=== PATIENT | female | born 1940 | race Caucasian/White ===

== ENCOUNTER 2017-10-03 05:45 | Inpatient (IN) | payer MEDICARE, SELFPAY ==
[2017-10-03] VITALS (27 sets, daily range): BP systolic 113–150; BP diastolic 45–81; PULSE 68–97; RESP 10–22; TEMP 36.6–37; O2SAT 89–98; BMI 24.4; BMI 25.8
--- NOTE | 2017-10-03 06:08 | EKG12_ITS ---
Test Reason : CP Blood Pressure : / mmHG Vent. Rate : 090 BPM Atrial Rate : 090 BPM P-R Int : 168 ms QRS Dur : 082 ms QT Int : 382 ms P-R-T Axes : 040 -02 072 degrees QTc Int : 467 ms Normal sinus rhythm Left ventricular hypertrophy with repolarization abnormality Abnormal ECG Confirmed by EDNA TAYLOR, ROSELINE ([id number]), acquisitions editor DAVE GATES ([id number]) on 10/05/2017 1:02:37 PM Referred By: ANIRUDH Confirmed By:ROSELINE BISHOP MD
[2017-10-03] MEDS: Ondansetron 4 MG/2 ML Vial IV (06:30)
[2017-10-03] MEDS: 0.9% Normal Saline 1,000 ML 1000 ML IV (06:30)
--- NOTE | 2017-10-03 06:48 | RAD_ITS ---
STUDY: X-RAY CHEST REASON FOR EXAM: Female, 77 years old. Syncope with cough. TECHNIQUE: PA and lateral chest. COMPARISON: August 21, 2016. FINDINGS: Probable small left pleural effusion with left lower lobe subsegmental atelectasis new since the prior study. Normal size heart. Normal mediastinum and enoc. Normal visualized pulmonary arteries. Normal visualized aortic arch and descending thoracic aorta. Degenerative changes of the thoracic spine. Normal visualized ribs, clavicles, and shoulders. There is no demonstrated abnormality of the visualized soft tissue structures of the upper abdomen. RAD/Chest PA and Lateral IMPRESSION: Small left pleural effusion with left lower lobe subsegmental atelectasis. If there is a high clinical suspicion of a left lower lobe pneumonia consider clarification with CT. Electronically Signed: Cristian Cruz MD at 7:09 EST , Service support ,
[2017-10-03 06:49] LABS: Absolute Lymphocyte Count 0.45 X10^3/ul (0.83-4.51); Absolute Neutrophil Count 4.8 X10^3/uL (2.0-7.7); Basophil# 0.01 X10^3/uL; Basophil% 0.2 % (0-1); Hematocrit 33.5 % (37-47); Hemoglobin 11.9 g/dl (12.0-15.0); Lymphocyte # 0.45 X10^3/ul (4.0); Lymphocyte % 7.5 % (19-41); Mean Corp Hgb Conc 35.5 g/gl (32-36); Mean Corpuscular Hgb 27.4 pg (27.0-32.0); Mean Platelet Vol. 10.2 fl (6.2-12.0); Monocyte# 0.78 X10^3/uL; Neutrophil # 4.75 X10^3/uL (2.7-7.7); Neutrophil % 79.1 % (47-70); Platelet Count 198 K/mm3 (150-450); RBC Distribution Width CV 12.9 % (11.6-14.6); RBC Distribution Width SD 35.3 fl (35.1-43.9); Red Blood Count 4.35 M/mm3 (4.2-5.4)
[2017-10-03 06:50] LABS: Differential Indicated SCAN CRITERIA MET; POSITIVE COUNT NO; POSITIVE DIFFERENTIAL YES; POSITIVE MORPHOLOGY NO
[2017-10-03 07:00] LABS: Anion Gap 9 (5-15); BUN 11 mg/dL (7-18); Calcium,Total 7.6 mg/dL (8.5-10.1); Chloride 81 mmol/L (98-107); Creatinine, Serum 0.69 mg/dL (0.55-1.02); EST Glomerular Filtration Rate 88 mL/min (>60); Est Glom Filt Rate - Afr Amer 107 mL/min (>60); Estimated Creatinine Clearance 40.21 ml/min; Glucose 116 mg/dL (74-106); Potassium 2.6 mmol/L (3.5-5.1); Sodium Level 118 mmol/L (136-145)
--- NOTE | 2017-10-03 07:03 | ED.RN ---
DR LEAL MADE AWARE OF NA+118,K+2.6.
[2017-10-03 07:08] LABS: Differential Comment SCANNED
--- NOTE | 2017-10-03 07:28 | ED.DCSUM_ITS ---
- ER Visit Summary Date of Service: 10/03/17 Chief Complaint: Syncope History of Present Illness: The patient is a [address] Cortez. Patient reports that she has not felt well for approximately a week. She has a cough that began 6 days ago. Is productive yellow sputum without blood. Check she reports her cough is been gradually improving. She reports that she has mild shortness of breath with coughing only. She denies any chest pain. No fever or chills. Patient reports over the past couple of days she has developed nausea and is vomited twice. No blood or emesis. She has had 4 episodes of diarrhea. No blood in her stools or black tarry stools. She does complain of generalized weakness. reports that yesterday at 2 AM she got up and went to the bathroom. He did not hear her come back to bed and went to check on her. She was passed out and unresponsive. He reports that she was cold. This lasted for approximately 20 minutes. Today at approximately 4 AM the patient went to go to the bathroom passed out while she was on the commode and the called EMS. Physical Examination: Vitals: Stable. Afebrile. General: Well-nourished and well-developed. Head: Normocephalic atraumatic. Neck: Supple, no lymphadenopathy. No JVD. Nontender. Cardiovascular: Regular rate and rhythm. No murmurs. Respiratory: No respiratory distress. Clear to auscultation bilaterally. Abdominal: Soft, nontender, nondistended, normal bowel sounds. No guarding, rebound, or peritoneal signs. Back: Nontender. Extremities: Nontender, no edema. Skin: Normal color, no rash. Neurologic: Alert and oriented ?3. Cranial nerves II through XII are intact. Normal strength and sensation. Psych: Normal affect. Test Results: Chest x-ray shows a small left pleural effusion with atelectasis. EKG is sinus at [address] changes. Troponin is negative. Chem- 7 is marked for sodium of 118, potassium 2.6, chloride of 81, glucose 116, calcium 7.6. CBC is marked for an H&H of 11 point and 33.5, segmented neutrophils of 79, lymphs at survey, monocytes of 13. Emergency Department Course and Treatment: Patient was given a liter of normal saline and Zofran IV. She is resting comfortably. She was given potassium p.o. Treatment Plan: Patient was discussed with Dr. Blum for. She will be admitted to the hospital for further evaluation and treatment. Disposition: Admitted in serious condition. Impression: 1. Syncope. 2. Hyponatremia. 3. Hypokalemia. 4. Vomiting/diarrhea. 5. URI. 6. Critical care time 30 minutes. This note was generated with [employer] dictation software. It may contain incorrect words, spelling, and punctuation that were not noted in review of the chart prior to signing ED Disposition - Plan for ED Patient: Chief Complaint: Syncope Referrals: Sreekanth Cortez DO [Primary Care Provider] -
[2017-10-03] MEDS: 0.9% Normal Saline 1,000 ML 100 ML IV ×2 (08:58→17:35)
[2017-10-03 09:02] LABS: Bacteria 0 SEEN /hpf (None Seen); Mucous, Urine 0 SEEN /hpf (<or=2+); Red Blood Cells-Urine 0 SEEN /hpf (0-5); White Blood Cells 0 SEEN /hpf (0-5)
--- NOTE | 2017-10-03 09:02 | CON.PCM_ITS ---
Problem List (1) Shingles outbreak Status: Acute Qualifiers: Herpes zoster complications: without complications Qualified Code(s): B02.9 - Zoster without complications (2) Hyponatremia Status: Acute (3) Hypochloremia Status: Acute (4) Hypokalemia Status: Acute (5) Syncope and collapse Status: Acute (6) Hypothyroidism Status: Chronic Qualifiers: Hypothyroidism type: acquired Qualified Code(s): E03.9 - Hypothyroidism, unspecified (7) Hypertension Status: Chronic Qualifiers: Hypertension type: essential hypertension Qualified Code(s): I10 - Essential (primary) hypertension Reason for Consult Date of Consultation: 10/03/17 Reason for Consultation: Hyponatremia, hypokalemia History of Present Illness: The patient is a 77 year old F, with past medical history listed below, who presented to [facility] on 10/03/2017 secondary to syncope. Patient reportedly was started on acyclovir approximately 1 week ago secondary to abruption of a vesicle for reported shingles. Patient states she took medications for approximately 1 day, but discontinued secondary to onset of nausea and vomiting. Patient reports she has had increasing fatigue over the last week. Patient reports nausea and vomiting resulting in 2 episodes of emesis. Patient has also had multiple episodes of watery diarrhea despite reported decreased output. Overnight, patient awoke to go to the bathroom and had a syncopal event. Patient stayed for approximately 30 minutes and then made it back to bed. When this recurred this morning, EMS was called. In the emergency room, patient had a chest x-ray showing a small pleural effusion with atelectasis, EKG with nonspecific ST changes and a Chem-7 notable for a sodium of 118, potassium of 2.6, bicarbonate of 28 and chloride of 81. No leukocytosis was appreciated. Patient was given a liter of normal saline and Zofran IV with subjective improvement. She was orthostatic negative in the ER. Patient was admitted to the intensive care unit for further monitoring. Patient reports mild improvement in overall condition at this time. Patient continues to report profound weakness with a sporadic cough. Patient denies any dyspnea, except when having paroxysmal type coughing. Patient denies any previous similar type of presentations. Patient denies any recent travel or pet exposure. Patient has never had difficulty with electrolytes previously that she is aware of. Patient denies any new medications outside of shingles therapy. Patient does report that she is a Jehovah witness and would not want blood products. Patient denies any active bleeding. Review of systems otherwise negative ?10 systems. Past Medical History Past Medical History (Chronic Problems): Chronic Problems Hypothyroidism (Chronic) Hypertension (Chronic) Allergies No Known Allergies Allergy (Verified 10/03/17 05:55) Home Medications: Ambulatory Orders Medication Instructions Recorded Hydrochlorothiazide 12.5 mg PO DAILY 08/21/16 Levothyroxine Sodium 100 mcg PO BREAKFAST 08/21/16 Metoprolol Tartrate [Lopressor 25 mg PO BID 08/21/16 (Beta Cris)] Losartan Potassium 50 mg PO DAILY 10/03/17 Smoking Status: Never smoker Review of Systems Comment: See HPI Patient Problems: Active and Suspected Problems Shingles outbreak (Acute) Hyponatremia (Acute) Hypochloremia (Acute) Hypokalemia (Acute) Syncope and collapse (Acute) Objective: Chest x-ray was personally reviewed and I agree with the formal interpretation. Pleural effusion is minimal - Physical Exam General: Alert, Oriented x3, Cooperative, No apparent distress, - - Appears stated age. Speaking in full sentences. HEENT: Atraumatic, PERRLA, EOMI, Normocephalic, - - No scleral icterus or injection noted. Oral: No Gingival or Mucosal Lesions/ Ulcerations, Dry Mucosa Neck: Supple, No JVD, No Nodes, Trachea Midline Lungs: Clear to auscultation, Normal air movement, No rhonchi, No wheeze, No rales, - - Metric expansion. No dullness to percussion. Cardiovascular: Regular rate, Regular Rhythm, Normal S1, Normal S2, No murmurs, No rub noted, No Gallop Abdomen: Soft, Non Tender, Non-Distended, Hyperactive Bowel Sounds Extremities: No clubbing, No cyanosis, Capillary Refill Less than 3 Seconds, Edema - Trace lower extremity Skin: No rashes, No breakdown Musculoskeletal: No Tenderness to Palpation of Joints or Extremities Lymphatic: No Cervical, Supraclavicular, or Inguinal Adenopathy Neurological: Cranial nerves II-XII grossly intact, Neuro grossly intact, Motor Exam 5/5 strength throughout Psych/Mental Status: Alert and oriented to time, place, person, mood and affect Vital Signs Temp Pulse Resp BP Pulse Ox 36.7 C 97 19 H 139/45 H 93 10/03/17 08:05 10/03/17 08:05 10/03/17 08:05 10/03/17 08:05 10/03/17 08:05 Oxygen Flow Rate 2 Oxygen Delivery Method Nasal Cannula Weight: 66.1 kg Body Mass Index (BMI) 25.8 Laboratory Tests 10/03/17 10/03/17 06:10 06:10 WBC 6.0 RBC 4.35 Hgb 11.9 L Hct 33.5 L MCV 77.0 L MCH 27.4 MCHC 35.5 RDW 12.9 RDW Differential 35.3 Plt Count 198 MPV 10.2 Immature Gran % (Auto) 0.200 Neut % (Auto) 79.1 H Lymph % (Auto) 7.5 L Will % (Auto) 13.0 H Eos % (Auto) 0.0 Baso % (Auto) 0.2 Absolute Neuts (auto) 4.8 Absolute Lymphs (auto) 0.45 L Total Counted Not Reportable Differential Comment SCANNED Sodium 118 L* Potassium 2.6 L* Chloride 81 L Carbon Dioxide 28.0 Anion Gap 9 BUN 11 Creatinine 0.69 Estim Creat Clear Calc 40.21 Est GFR (MDRD) Af Amer 107 Est GFR (MDRD) Non-Af 88 BUN/Creatinine Ratio 16.0 Glucose 116 H Calcium 7.6 L Troponin I < 0.02 Clinical Impression(s) from Imaging Studies Chest X-Ray 10/03/17 06:48 IMPRESSION: Small left pleural effusion with left lower lobe subsegmental atelectasis. If there is a high clinical suspicion of a left lower lobe pneumonia consider clarification with CT. Electronically Signed: Cristian Cruz MD at 7:09 EST , Service support , Assessment/Plan Active and Suspected Problems Shingles outbreak (Acute) Hyponatremia (Acute) Hypochloremia (Acute) Hypokalemia (Acute) Syncope and collapse (Acute) RECOMMENDATIONS: 1. Continue with IV fluids 2. BMP following potassium infusion 3. Obtain rapid flu and C. difficile 4. Contact precautions for shingles IMPRESSIONS: 1. Syncope Clinical suspicion for volume depletion, but patient was not orthostatic in the emergency room. Patient does have hypokalemia. Patient is on telemetry. No significant EKG changes at this time. Patient is getting electrolyte repletion. Monitor for malignant rhythms. No cardiology consultation at this time. Blood pressure is adequate. 2. Hypovolemic hyponatremia/hypokalemia Patient with 1 week history of nausea, vomiting and diarrhea. Patient does have dry mucous membranes indicating probable volume depletion. Will repeat BMP following potassium infusion. Continue with aggressive volume resuscitation with IV fluids. Patient did continue to have GI symptoms despite decreased p.o. intake indicating a possible pathology secretary diarrhea. Patient should have a C. difficile and rapid flu obtained. Patient does not report any antibiotics in the last 3 months and does not have significant leukocytosis, so clinical suspicion for C. difficile is low. 3. Shingles Patient with minimal symptomatology at this time. Likely okay to hold off on acyclovir therapy. Continue with contact precautions. Pain control as indicated. 4. Hypertension/hypothyroidism/advanced age/Jehovah witness Complicates care, management, recovery and prognosis. Likely okay to continue with baseline medications. Will attempt to minimize blood draws. No blood products moving forward. Hemoglobin is not to the point to indicate pediatric tubes for blood draw. Code Visit Inpatient E&M: 54748 Init Hosp L3
[2017-10-03 09:14] LABS: Color, Urine Yellow (Yellow); Glucose, Dipstick Normal (Normal); Ketone-Dipstick Negative (Negative); Leukocyte Esterase-Dipstick Negative /ul (Negative); Nitrite-Dipstick Negative (Negative); Occult Blood-Urine Negative /ul (Negative); Protein-Dipstick Negative (Negative); Urine Bilirubin Dipstick Negative (Negative); Urine Clarity Clear (Clear); Urine Urobilinogen Normal (Normal)
[2017-10-03 09:19] LABS: Squamous Epithelial Cells - UA 0-5 SEEN /hpf (5-10)
--- NOTE | 2017-10-03 09:20 | PCM.HP.STD ---
Problem List (1) Hyponatremia Status: Acute (2) Hypokalemia Status: Acute (3) Syncope and collapse Status: Acute (4) Hypothyroidism Status: Chronic Qualifiers: Hypothyroidism type: acquired Qualified Code(s): E03.9 - Hypothyroidism, unspecified (5) Hypertension Status: Chronic Qualifiers: Hypertension type: essential hypertension Qualified Code(s): I10 - Essential (primary) hypertension History of Present Illness Date of Admission: 10/03/17 Chief Complaint: Syncope. The patient is a 77 year old F with past medical history as mentioned above presented to the emergency room because of syncope. Patient's was at the bedside and he provided the history about those syncopal episodes. He mentioned that she had a syncopal episode yesterday morning, he found her on the floor and he thinks that she was out for about 20 minutes. Initially, he thought that she but shortly after, she was able to open her eyes and she was fine. After that, he called the squad who came in, checked her vitals and did not bring her to the emergency room. Today, she had another episode of syncope, was at the bathroom and she passed out. The patient herself complained of being not feeling well over the last 3-5 days, week, dizzy and lightheaded before she passed out. Also, she complained of diarrhea, loose watery stool, has been going on for 3-4 days, associated with nausea and vomiting and without aggravating or relieving factors. He denied chest pain, palpitation, shortness of breath. She denied abdominal pain, fever or chills. She denied headache, blurry vision, slurred speech, focal arm or leg weakness. No reported seizure activity, tongue biting or urine incontinence. She denies focal arm or leg weakness. She has a history of hypertension and she has been on HCTZ, losartan and metoprolol. She has a history of hypothyroidism and she is on levothyroxine replacement. In the emergency room, her vital signs were stable, she was afebrile. Orthostatic vitals were negative. Routine blood work is remarkable for hemoglobin of 11.9 g/dL, severe hyponatremia with serum sodium of 118 and potassium of 2.6. Her troponin was negative. Urine analysis showed no evidence of acute cystitis. Chest x-ray showed basilar atelectasis, questionable very small left pleural effusion, doubt pneumonia. EKG revealed normal sinus rhythm, normal VA interval, normal QRS and no acute ischemic changes. She is being admitted for severe hyponatremia, severe hypokalemia and syncope which is attributed to hypovolemia/dehydration secondary to probable viral gastroenteritis. Past Medical History Past Medical History (Chronic Problems): Chronic Problems Hypothyroidism (Chronic) Hypertension (Chronic) Allergies No Known Allergies Allergy (Verified 10/03/17 05:55) Home Medications: Ambulatory Orders Medication Instructions Recorded Hydrochlorothiazide 12.5 mg PO DAILY 08/21/16 Levothyroxine Sodium 100 mcg PO BREAKFAST 08/21/16 Metoprolol Tartrate [Lopressor 25 mg PO BID 08/21/16 (Beta Cris)] Losartan Potassium 50 mg PO DAILY 10/03/17 Surgical History: - - Surgery for carpal tunnel syndrome. Psychiatric History: No pertinent psych hx Lives: Spouse/ Significant Other Smoking Status: Never smoker Alcohol: None Drugs: None - *Family History Maternal History Items: No pertinent history Paternal History Items: No pertinent history Review of Systems Constitutional: Reports: Anorexia, Weakness. Denies: Chills, Fever Eyes: Denies: Blurred vision, Double vision, Drainage, Vision Change HEENT: Denies: Difficulty Hearing, Ear Pain, Eye Pain, Nasal Congestion, Post Nasal Drip, Sore Throat Cardiovascular: Reports: Light Headedness, Syncope. Denies: Chest Pain, Chest Pressure, Chest Tightness, Edema, Heaviness, Orthopnea, Palpitations Respiratory: Reports: Cough. Denies: Hemoptysis, Pleuritic Pain, Shortness of Breath, Sputum production, Wheezing Gastrointestinal: Reports: Diarrhea, Nausea, Vomiting. Denies: Abdominal Pain, Constipation Genitourinary: Denies: Dysuria, Frequency, Hematuria Musculoskeletal: Denies: Arm Pain, Back Pain, Foot Pain Skin: Denies: Dryness, Rash Neurological: Denies: Balance problems, Double vision, Change in Speech, Slurred speech, Confusion, Headaches, Incoordination, Numbness, Tingling Psychiatric: Denies: Anxiety, Depression Endocrine: Denies: Change in Body Habitus, Polydipsia VTE Information - Inpt Only VTE Present on Admission: No VTE Mechan Device Prophylaxis: None VTE Pharm Prophylaxis ordered?: Yes Patient Problems: Active and Suspected Problems Shingles outbreak (Acute) Hyponatremia (Acute) Hypochloremia (Acute) Hypokalemia (Acute) Syncope and collapse (Acute) - Physical Exam General: Alert, Oriented x3, Cooperative, No apparent distress HEENT: Atraumatic, PERRLA, EOMI Oral: Moist Mucosa, No Gingival or Mucosal Lesions/ Ulcerations Neck: Supple, No JVD, Negative Carotid Bruits, Trachea Midline, Thyroid Normal Size and Texture Lungs: Clear to auscultation, No rhonchi, No wheeze, No rales, Diminished Cardiovascular: Regular rate, Regular Rhythm, Normal S1, Normal S2, No murmurs Abdomen: Bowel Sounds Present, Soft, Non Tender, Non-Distended, No Hepato-splenomegaly Extremities: No clubbing, No cyanosis, No edema Skin: No rashes, No breakdown Lymphatic: No Cervical, Supraclavicular, or Inguinal Adenopathy Neurological: Cranial nerves II-XII grossly intact, Motor Exam 5/5 strength throughout Psych/Mental Status: Normal Affect, Appropriate, Alert and oriented to time, place, person, mood and affect Vital Signs Temp Pulse Resp BP Pulse Ox 98.0 F 97 19 H 139/45 H 92 10/03/17 08:05 10/03/17 08:05 10/03/17 08:05 10/03/17 08:05 10/03/17 09:06 Oxygen Flow Rate 2 Oxygen Delivery Method Nasal Cannula Weight: 145 lb 11.609 oz Body Mass Index (BMI) 25.8 Laboratory Tests Past 24 Hrs 10/03/17 10/03/17 10/03/17 08:55 08:55 08:55 Urine Color Yellow Urine Clarity Clear Urine pH 7.0 Ur Specific [place] 1.010 Urine Protein Negative Urine Glucose (UA) Normal Urine Ketones Negative Urine Occult Blood Negative Urine Nitrite Negative Urine Bilirubin Negative Urine Urobilinogen Normal Ur Leukocyte Esterase Negative Urine RBC 0 SEEN Urine WBC 0 SEEN Ur Squamous Epith Cells 0-5 SEEN Urine Bacteria 0 SEEN Urine Mucus 0 SEEN Urine Osmolality Pending Urine Creatinine Pending Urine Potassium Pending Urine Chloride Pending 10/03/17 10/03/17 08:55 08:55 Urine Color Urine Clarity Urine pH Ur Specific [place] Urine Protein Urine Glucose (UA) Urine Ketones Urine Occult Blood Urine Nitrite Urine Bilirubin Urine Urobilinogen Ur Leukocyte Esterase Urine RBC Urine WBC Ur Squamous Epith Cells Urine Bacteria Urine Mucus Urine Osmolality Urine Creatinine Urine Potassium Cancelled Urine Chloride Cancelled Clinical Impression(s) from Imaging Studies Chest X-Ray 10/03/17 06:48 IMPRESSION: Small left pleural effusion with left lower lobe subsegmental atelectasis. If there is a high clinical suspicion of a left lower lobe pneumonia consider clarification with CT. Electronically Signed: Cristian Cruz MD at 7:09 EST , Service support , Assessment/Plan Active and Suspected Problems Shingles outbreak (Acute) Hyponatremia (Acute) Hypochloremia (Acute) Hypokalemia (Acute) Syncope and collapse (Acute) This is a 77 years old female patient presented to the medicine because of 2 syncopal episodes in context of 3-4 day history of diarrhea, nausea and vomiting, found to have severe hyponatremia and severe hypokalemia. #1 severe hyponatremia/severe hypokalemia: Attributed to probable viral gastroenteritis as well as being on HCTZ. Admission sodium is 118 and potassium of 2.6. Plan: Admit to ICU, IV fluids with normal saline with potassium replacement, check serum magnesium, serum phosphorus, TSH, critical care consult, repeat orthostatic vitals tomorrow, repeat BMP later today after potassium replacement, PT OT evaluation and treatment. #2 syncope: Attributed to hypovolemia and dehydration secondary to probable viral gastroenteritis. Orthostatic vitals were negative. Patient reported dizziness and lightheadedness preceding the syncopal event. EKG revealed normal sinus rhythm without evidence of acute ischemic changes or cardiac arrhythmias. No reported history of seizure. No focal deficit on physical exam. Plan: IV fluids as above, electrolyte replacement as appropriate. #3 diarrhea/nausea/vomiting: Probably due to viral gastroenteritis. Plan: IV fluids as above, stool for C. difficile, stool for enteric pathogens. #4 hypothyroidism: Continue levothyroxine, check TSH. #5 hypertension: Blood pressure stable, continue losartan and metoprolol, hold HCTZ. #6 DVT prophylaxis: Subcu Lovenox. This note was generated with [employer] software. It may contain incorrect words, spelling, and punctuation that were not noted in checking the note before signing. Code Visit Inpatient E&M: 92611 Init Hosp L3
[2017-10-03 09:27] LABS: Urine Chloride 38 mmol/L (Not Establ.)
--- NOTE | 2017-10-03 09:27 | HP.PCM_ITS ---
Problem List (1) Hyponatremia Status: Acute (2) Hypokalemia Status: Acute (3) Syncope and collapse Status: Acute (4) Hypothyroidism Status: Chronic Qualifiers: Hypothyroidism type: acquired Qualified Code(s): E03.9 - Hypothyroidism, unspecified (5) Hypertension Status: Chronic Qualifiers: Hypertension type: essential hypertension Qualified Code(s): I10 - Essential (primary) hypertension History of Present Illness Date of Admission: 10/03/17 Chief Complaint: Syncope. The patient is a 77 year old F with past medical history as mentioned above presented to the emergency room because of syncope. Patient's was at the bedside and he provided the history about those syncopal episodes. He mentioned that she had a syncopal episode yesterday morning, he found her on the floor and he thinks that she was out for about 20 minutes. Initially, he thought that she but shortly after, she was able to open her eyes and she was fine. After that, he called the squad who came in, checked her vitals and did not bring her to the emergency room. Today, she had another episode of syncope, was at the bathroom and she passed out. The patient herself complained of being not feeling well over the last 3-5 days, week, dizzy and lightheaded before she passed out. Also, she complained of diarrhea, loose watery stool, has been going on for 3-4 days, associated with nausea and vomiting and without aggravating or relieving factors. He denied chest pain, palpitation, shortness of breath. She denied abdominal pain, fever or chills. She denied headache, blurry vision, slurred speech, focal arm or leg weakness. No reported seizure activity, tongue biting or urine incontinence. She denies focal arm or leg weakness. She has a history of hypertension and she has been on HCTZ, losartan and metoprolol. She has a history of hypothyroidism and she is on levothyroxine replacement. In the emergency room, her vital signs were stable, she was afebrile. Orthostatic vitals were negative. Routine blood work is remarkable for hemoglobin of 11.9 g/dL, severe hyponatremia with serum sodium of 118 and potassium of 2.6. Her troponin was negative. Urine analysis showed no evidence of acute cystitis. Chest x-ray showed basilar atelectasis, questionable very small left pleural effusion, doubt pneumonia. EKG revealed normal sinus rhythm, normal [place] interval, normal QRS and no acute ischemic changes. She is being admitted for severe hyponatremia, severe hypokalemia and syncope which is attributed to hypovolemia/dehydration secondary to probable viral gastroenteritis. Past Medical History Past Medical History (Chronic Problems): Chronic Problems Hypothyroidism (Chronic) Hypertension (Chronic) Allergies No Known Allergies Allergy (Verified 10/03/17 05:55) Home Medications: Ambulatory Orders Medication Instructions Recorded Hydrochlorothiazide 12.5 mg PO DAILY 08/21/16 Levothyroxine Sodium 100 mcg PO BREAKFAST 08/21/16 Metoprolol Tartrate [Lopressor 25 mg PO BID 08/21/16 (Beta Cris)] Losartan Potassium 50 mg PO DAILY 10/03/17 Surgical History: - - Surgery for carpal tunnel syndrome. Psychiatric History: No pertinent psych hx Lives: Spouse/ Significant Other Smoking Status: Never smoker Alcohol: None Drugs: None - *Family History Maternal History Items: No pertinent history Paternal History Items: No pertinent history Review of Systems Constitutional: Reports: Anorexia, Weakness. Denies: Chills, Fever Eyes: Denies: Blurred vision, Double vision, Drainage, Vision Change HEENT: Denies: Difficulty Hearing, Ear Pain, Eye Pain, Nasal Congestion, Post Nasal Drip, Sore Throat Cardiovascular: Reports: Light Headedness, Syncope. Denies: Chest Pain, Chest Pressure, Chest Tightness, Edema, Heaviness, Orthopnea, Palpitations Respiratory: Reports: Cough. Denies: Hemoptysis, Pleuritic Pain, Shortness of Breath, Sputum production, Wheezing Gastrointestinal: Reports: Diarrhea, Nausea, Vomiting. Denies: Abdominal Pain, Constipation Genitourinary: Denies: Dysuria, Frequency, Hematuria Musculoskeletal: Denies: Arm Pain, Back Pain, Foot Pain Skin: Denies: Dryness, Rash Neurological: Denies: Balance problems, Double vision, Change in Speech, Slurred speech, Confusion, Headaches, Incoordination, Numbness, Tingling Psychiatric: Denies: Anxiety, Depression Endocrine: Denies: Change in Body Habitus, Polydipsia VTE Information - Inpt Only VTE Present on Admission: No VTE Mechan Device Prophylaxis: None VTE Pharm Prophylaxis ordered?: Yes Patient Problems: Active and Suspected Problems Shingles outbreak (Acute) Hyponatremia (Acute) Hypochloremia (Acute) Hypokalemia (Acute) Syncope and collapse (Acute) - Physical Exam General: Alert, Oriented x3, Cooperative, No apparent distress HEENT: Atraumatic, PERRLA, EOMI Oral: Moist Mucosa, No Gingival or Mucosal Lesions/ Ulcerations Neck: Supple, No JVD, Negative Carotid Bruits, Trachea Midline, Thyroid Normal Size and Texture Lungs: Clear to auscultation, No rhonchi, No wheeze, No rales, Diminished Cardiovascular: Regular rate, Regular Rhythm, Normal S1, Normal S2, No murmurs Abdomen: Bowel Sounds Present, Soft, Non Tender, Non-Distended, No Hepato- splenomegaly Extremities: No clubbing, No cyanosis, No edema Skin: No rashes, No breakdown Lymphatic: No Cervical, Supraclavicular, or Inguinal Adenopathy Neurological: Cranial nerves II-XII grossly intact, Motor Exam 5/5 strength throughout Psych/Mental Status: Normal Affect, Appropriate, Alert and oriented to time, place, person, mood and affect Vital Signs Temp Pulse Resp BP Pulse Ox 98.0 F 97 19 H 139/45 H 92 10/03/17 08:05 10/03/17 08:05 10/03/17 08:05 10/03/17 08:05 10/03/17 09:06 Oxygen Flow Rate 2 Oxygen Delivery Method Nasal Cannula Weight: 145 lb 11.609 oz Body Mass Index (BMI) 25.8 Laboratory Tests Past 24 Hrs 10/03/17 10/03/17 10/03/17 08:55 08:55 08:55 Urine Color Yellow Urine Clarity Clear Urine pH 7.0 Ur Specific [place] 1.010 Urine Protein Negative Urine Glucose (UA) Normal Urine Ketones Negative Urine Occult Blood Negative Urine Nitrite Negative Urine Bilirubin Negative Urine Urobilinogen Normal Ur Leukocyte Esterase Negative Urine RBC 0 SEEN Urine WBC 0 SEEN Ur Squamous Epith Cells 0-5 SEEN Urine Bacteria 0 SEEN Urine Mucus 0 SEEN Urine Osmolality Pending Urine Creatinine Pending Urine Potassium Pending Urine Chloride Pending 10/03/17 10/03/17 08:55 08:55 Urine Color Urine Clarity Urine pH Ur Specific [place] Urine Protein Urine Glucose (UA) Urine Ketones Urine Occult Blood Urine Nitrite Urine Bilirubin Urine Urobilinogen Ur Leukocyte Esterase Urine RBC Urine WBC Ur Squamous Epith Cells Urine Bacteria Urine Mucus Urine Osmolality Urine Creatinine Urine Potassium Cancelled Urine Chloride Cancelled Clinical Impression(s) from Imaging Studies Chest X-Ray 10/03/17 06:48 IMPRESSION: Small left pleural effusion with left lower lobe subsegmental atelectasis. If there is a high clinical suspicion of a left lower lobe pneumonia consider clarification with CT. Electronically Signed: Cristian Cruz MD at 7:09 EST , Service support , Assessment/Plan Active and Suspected Problems Shingles outbreak (Acute) Hyponatremia (Acute) Hypochloremia (Acute) Hypokalemia (Acute) Syncope and collapse (Acute) This is a 77 years old female patient presented to the medicine because of 2 syncopal episodes in context of 3-4 day history of diarrhea, nausea and vomiting , found to have severe hyponatremia and severe hypokalemia. #1 severe hyponatremia/severe hypokalemia: Attributed to probable viral gastroenteritis as well as being on HCTZ. Admission sodium is 118 and potassium of 2.6. Plan: Admit to ICU, IV fluids with normal saline with potassium replacement, check serum magnesium, serum phosphorus, TSH, critical care consult, repeat orthostatic vitals tomorrow, repeat BMP later today after potassium replacement, PT OT evaluation and treatment. #2 syncope: Attributed to hypovolemia and dehydration secondary to probable viral gastroenteritis. Orthostatic vitals were negative. Patient reported dizziness and lightheadedness preceding the syncopal event. EKG revealed normal sinus rhythm without evidence of acute ischemic changes or cardiac arrhythmias. No reported history of seizure. No focal deficit on physical exam. Plan: IV fluids as above, electrolyte replacement as appropriate. #3 diarrhea/nausea/vomiting: Probably due to viral gastroenteritis. Plan: IV fluids as above, stool for C. difficile, stool for enteric pathogens. #4 hypothyroidism: Continue levothyroxine, check TSH. #5 hypertension: Blood pressure stable, continue losartan and metoprolol, hold HCTZ. #6 DVT prophylaxis: Subcu Lovenox. This note was generated with [employer] software. It may contain incorrect words, spelling, and punctuation that were not noted in checking the note before signing. Code Visit Inpatient E&M: 98431 Init Hosp L3
[2017-10-03 09:28] LABS: Magnesium 1.7 mg/dL (1.6-2.6); Phosphorus 2.7 mg/dL (2.5-4.9); Thyroid Stim Hormone (TSH) 0.59 uIU/mL (0.358-3.74)
[2017-10-03] MEDS: Losartan Potassium 50 MG Tablet PO (09:30)
[2017-10-03] MEDS: Metoprolol Tartrate 25 MG Tablet PO ×2 (09:30→22:04)
[2017-10-03] MEDS: Enoxaparin 40 MG/0.4 ML Syringe SC (09:31)
[2017-10-03 09:45] LABS: Osmolality, Urine 225 mOsm/KG
[2017-10-03 10:46] LABS: M R Staph aureus DNA By PCR Negative (Negative); Probe Check PASS; Specimen Processing Control PASS
[2017-10-03 15:18] LABS: Anion Gap 8 (5-15); BUN 8 mg/dL (7-18); Calcium,Total 7.1 mg/dL (8.5-10.1); Chloride 93 mmol/L (98-107); EST Glomerular Filtration Rate 74 mL/min (>60); Est Glom Filt Rate - Afr Amer 90 mL/min (>60); Estimated Creatinine Clearance 50.26 ml/min; Glucose 111 mg/dL (74-106); Potassium 4.2 mmol/L (3.5-5.1); Sodium Level 126 mmol/L (136-145)
[2017-10-03 15:20] LABS: Osmolality, Serum 257 mOsm/KG (280-301)
[2017-10-03] MEDS: Benzonatate 100 MG Capsule PO (22:08)
[2017-10-04] VITALS (20 sets, daily range): BP systolic 98–146; BP diastolic 48–82; PULSE 62–84; RESP 17–20; TEMP 36.8–37.4; O2SAT 91–98
[2017-10-04] MEDS: 0.9% Normal Saline 1,000 ML 100 ML IV ×3 (03:16→21:42)
[2017-10-04 06:07] LABS: Absolute Lymphocyte Count 1.29 X10^3/ul (0.83-4.51); Basophil# 0.01 X10^3/uL; Basophil% 0.2 % (0-1); Eosinophil# 0.01 X10^3/uL; Eosinophils% 0.2 % (0-5); Hematocrit 29.7 % (37-47); Lymphocyte # 1.29 X10^3/ul (4.0); Mean Corp Hgb Conc 33.7 g/gl (32-36); Mean Corpuscular Hgb 26.7 pg (27.0-32.0); Mean Corpuscular Volume 79.4 fL (81-99); Mean Platelet Vol. 9.3 fl (6.2-12.0); Monocyte# 0.66 X10^3/uL; Monocyte% 13.3 % (0-10); Neutrophil # 2.99 X10^3/uL (2.7-7.7); Neutrophil % 60.1 % (47-70); Platelet Count 167 K/mm3 (150-450); RBC Distribution Width CV 13.3 % (11.6-14.6); RBC Distribution Width SD 38.5 fl (35.1-43.9); Red Blood Count 3.74 M/mm3 (4.2-5.4)
[2017-10-04 06:22] LABS: Anion Gap 9 (5-15); BUN 9 mg/dL (7-18); BUN/Creat Ratio 13.7 RATIO (10-20); Calcium,Total 7.3 mg/dL (8.5-10.1); Chloride 97 mmol/L (98-107); Creatinine, Serum 0.66 mg/dL (0.55-1.02); EST Glomerular Filtration Rate 93 mL/min (>60); Est Glom Filt Rate - Afr Amer 113 mL/min (>60); Estimated Creatinine Clearance 40.21 ml/min; Glucose 93 mg/dL (74-106); Sodium Level 130 mmol/L (136-145)
[2017-10-04 06:32] LABS: POSITIVE COUNT NO; POSITIVE DIFFERENTIAL NO; POSITIVE MORPHOLOGY NO
--- NOTE | 2017-10-04 07:21 | PN_ITS ---
Subjective: The patient was seen and examined at the bedside this morning. Events from the last 24 hours have been reviewed. The patient is currently afebrile, hemodynamically stable and maintaining appropriate oxygen saturations on 2 L/ min via nasal cannula. No overnight issues were identified by the nursing staff. Sodium is increased to 130 this morning. Potassium remains low at 3.0. The patient is still receiving normal saline at 100 mL's per hour. The patient denies nausea, vomiting, abdominal pain or dizziness. Objective: The patient's most recent lab work, culture data and imaging studies have all been personally reviewed. Respiratory viral panel was positive for influenza A. General: Alert, Oriented x3, Cooperative, No apparent distress HEENT: Atraumatic, PERRLA, Normocephalic Oral: Moist Mucosa, No Gingival or Mucosal Lesions/ Ulcerations Neck: Supple, No JVD, No Nodes, Trachea Midline Lungs: Clear to auscultation, No rhonchi, No wheeze, No rales Cardiovascular: Regular rate, Regular Rhythm, Normal S1, Normal S2, No murmurs Abdomen: Bowel Sounds Present, Soft, Non Tender Extremities: No clubbing, No cyanosis, No edema Skin: No rashes, No breakdown Musculoskeletal: No Tenderness to Palpation of Joints or Extremities Lymphatic: No Cervical, Supraclavicular, or Inguinal Adenopathy Neurological: Neuro grossly intact Psych/Mental Status: Alert and oriented to time, place, person, mood and affect Vital Signs Temp Pulse Resp BP Pulse Ox 98.9 F 74 19 H 127/60 H 97 10/04/17 04:00 10/04/17 06:00 10/04/17 06:00 10/04/17 06:00 10/04/17 06:00 Oxygen Flow Rate 2 Oxygen Delivery Method Nasal Cannula Weight: 143 lb 15.39 oz Body Mass Index (BMI) 25.8 Intake and Output for Last 24 Hours 10/02/17 10/03/17 10/04/17 23:59 23:59 23:59 Intake Total 2836 / 2836 1451 / 1451 Output Total 1900 / 1900 700 / 700 Balance 936 / 936 751 / 751 Labs (Last 48 Hours) 10/03/17 10/03/17 10/03/17 08:40 08:55 08:55 WBC RBC Hgb Hct MCV MCH MCHC RDW RDW Differential Plt Count MPV Immature Gran % (Auto) Neut % (Auto) Lymph % (Auto) Hend[place] % (Auto) Eos % (Auto) Baso % (Auto) Absolute Neuts (auto) Absolute Lymphs (auto) Total Counted Sodium Potassium Chloride Carbon Dioxide Anion Gap BUN Creatinine Estim Creat Clear Calc Est GFR (MDRD) Af Amer Est GFR (MDRD) Non-Af BUN/Creatinine Ratio Glucose Serum Osmolality Calcium Urine Color Urine Clarity Urine pH Ur Specific [place] Urine Protein Urine Glucose (UA) Urine Ketones Urine Occult Blood Urine Nitrite Urine Bilirubin Urine Urobilinogen Ur Leukocyte Esterase Urine RBC Urine WBC Ur Squamous Epith Cells Urine Bacteria Urine Mucus Urine Osmolality 225 Urine Creatinine 38.30 Urine Potassium 16.0 Urine Chloride 38 MRSA (PCR) Negative 10/03/17 10/03/17 10/03/17 08:55 08:55 08:55 WBC RBC Hgb Hct MCV MCH MCHC RDW RDW Differential Plt Count MPV Immature Gran % (Auto) Neut % (Auto) Lymph % (Auto) [place] % (Auto) Eos % (Auto) Baso % (Auto) Absolute Neuts (auto) Absolute Lymphs (auto) Total Counted Sodium Potassium Chloride Carbon Dioxide Anion Gap BUN Creatinine Estim Creat Clear Calc Est GFR (MDRD) Af Amer Est GFR (MDRD) Non-Af BUN/Creatinine Ratio Glucose Serum Osmolality Calcium Urine Color Yellow Urine Clarity Clear Urine pH 7.0 Ur Specific [place] 1.010 Urine Protein Negative Urine Glucose (UA) Normal Urine Ketones Negative Urine Occult Blood Negative Urine Nitrite Negative Urine Bilirubin Negative Urine Urobilinogen Normal Ur Leukocyte Esterase Negative Urine RBC 0 SEEN Urine WBC 0 SEEN Ur Squamous Epith Cells 0-5 SEEN Urine Bacteria 0 SEEN Urine Mucus 0 SEEN Urine Osmolality Urine Creatinine Urine Potassium Cancelled Urine Chloride Cancelled MRSA (PCR) 10/03/17 10/03/17 10/04/17 14:45 14:45 04:55 WBC 5.0 RBC 3.74 L Hgb 10.0 L Hct 29.7 L MCV 79.4 L MCH 26.7 L MCHC 33.7 RDW 13.3 RDW Differential 38.5 Plt Count 167 MPV 9.3 Immature Gran % (Auto) 0.200 Neut % (Auto) 60.1 Lymph % (Auto) 26.0 [place] % (Auto) 13.3 H Eos % (Auto) 0.2 Baso % (Auto) 0.2 Absolute Neuts (auto) 3.0 Absolute Lymphs (auto) 1.29 Total Counted Not Reportable Sodium 126 L Potassium 4.2 Chloride 93 L Carbon Dioxide 25.0 Anion Gap 8 BUN 8 Creatinine 0.80 Estim Creat Clear Calc 50.26 Est GFR (MDRD) Af Amer 90 Est GFR (MDRD) Non-Af 74 BUN/Creatinine Ratio 10.0 Glucose 111 H Serum Osmolality 257 L Calcium 7.1 L Urine Color Urine Clarity Urine pH Ur Specific [place] Urine Protein Urine Glucose (UA) Urine Ketones Urine Occult Blood Urine Nitrite Urine Bilirubin Urine Urobilinogen Ur Leukocyte Esterase Urine RBC Urine WBC Ur Squamous Epith Cells Urine Bacteria Urine Mucus Urine Osmolality Urine Creatinine Urine Potassium Urine Chloride MRSA (PCR) 10/04/17 04:55 WBC RBC Hgb Hct MCV MCH MCHC RDW RDW Differential Plt Count MPV Immature Gran % (Auto) Neut % (Auto) Lymph % (Auto) [place] % (Auto) Eos % (Auto) Baso % (Auto) Absolute Neuts (auto) Absolute Lymphs (auto) Total Counted Sodium 130 L Potassium 3.0 L Chloride 97 L Carbon Dioxide 24.0 Anion Gap 9 BUN 9 Creatinine 0.66 Estim Creat Clear Calc 40.21 Est GFR (MDRD) Af Amer 113 Est GFR (MDRD) Non-Af 93 BUN/Creatinine Ratio 13.7 Glucose 93 Serum Osmolality Calcium 7.3 L Urine Color Urine Clarity Urine pH Ur Specific [place] Urine Protein Urine Glucose (UA) Urine Ketones Urine Occult Blood Urine Nitrite Urine Bilirubin Urine Urobilinogen Ur Leukocyte Esterase Urine RBC Urine WBC Ur Squamous Epith Cells Urine Bacteria Urine Mucus Urine Osmolality Urine Creatinine Urine Potassium Urine Chloride MRSA (PCR) Microbiology 10/03/17 12:35 Stool Enteric Bacteriology - Final 10/03/17 12:35 Stool C. difficile DNA Amplification - Final 10/03/17 09:09 Mucosa - Nasopharyngeal Respiratory Panel (PCR) - Final Influenza A (Subtype H3) Clinical Impression(s) from Imaging Studies Chest X-Ray 10/03/17 06:48 IMPRESSION: Small left pleural effusion with left lower lobe subsegmental atelectasis. If there is a high clinical suspicion of a left lower lobe pneumonia consider clarification with CT. Electronically Signed: Cristian Cruz MD at 7:09 EST , Service support , Assessment/Plan Active and Suspected Problems Shingles outbreak (Acute) Hyponatremia (Acute) Hypochloremia (Acute) Hypokalemia (Acute) Syncope and collapse (Acute) RECOMMENDATIONS: 1. Continue supplemental IV fluids 2. Additional potassium repletion as ordered 3. Check serum magnesium level 4. Contact precautions for shingles 5. Encourage incentive spirometer use while in bed and mobilize patient as tolerated 6. Continue Lovenox for DVT prophylaxis IMPRESSIONS: 1. Syncope Clinical suspicion for volume depletion, but patient was not orthostatic in the emergency room. The patient is improving clinically with IV fluid hydration. We will continue to monitor accordingly. 2. Influenza A infection Continue current supportive measures with IV fluids. There would be no clinical indication for the use of Tamiflu, given the time duration that has elapsed since symptoms initially began. 3. Hypovolemic hyponatremia/hypokalemia Patient with 1 week history of nausea, vomiting and diarrhea. The patient has improved clinically with intravascular volume expansion. Sodium is improving. Potassium is currently being repleted. We will continue with supplemental IV fluids for now. 4. Recent diagnosis of shingles Patient with minimal symptomatology at this time. Likely okay to hold off on acyclovir therapy. Continue with contact precautions. Pain control as indicated. 5. Hypertension/hypothyroidism/advanced age/[place] witness Complicates care, management, recovery and prognosis. Likely okay to continue with baseline medications. This note was generated with [employer] dictation software. It may contain incorrect words, spelling, and punctuation that were not noted in checking the note before signing. DISPOSITION: The patient is medically stable for transfer out of the intensive care unit. Code Visit Inpatient E&M: 52879 Subs Hosp L2
[2017-10-04 07:47] LABS: Magnesium 1.8 mg/dL (1.6-2.6)
[2017-10-04] MEDS: Levothyroxine 100 MCG Tablet PO (07:52)
[2017-10-04] MEDS: Metoprolol Tartrate 25 MG Tablet PO ×2 (09:35→21:39)
[2017-10-04] MEDS: Losartan Potassium 50 MG Tablet PO (09:35)
[2017-10-04] MEDS: Enoxaparin 40 MG/0.4 ML Syringe SC (09:36)
--- NOTE | 2017-10-04 09:57 | PCM.PN.HOSP ---
Patient Problems: Active and Suspected Problems Shingles outbreak (Acute) Hyponatremia (Acute) Hypochloremia (Acute) Hypokalemia (Acute) Syncope and collapse (Acute) Subjective: Seen and examined at the bedside. Patient was admitted for syncope ?2, hyponatremia, hypokalemia and dehydration. Vitals/I&O's: Vital Signs Temp Pulse Resp BP Pulse Ox 98.6 F 79 17 138/67 H 97 10/04/17 08:00 10/04/17 09:35 10/04/17 08:00 10/04/17 09:35 10/04/17 08:00 Oxygen Flow Rate 2 Oxygen Delivery Method Nasal Cannula Weight: 143 lb 15.39 oz Body Mass Index (BMI) 25.8 Intake and Output for Last 24 Hours 10/02/17 10/03/17 10/04/17 23:59 23:59 23:59 Intake Total 2836 / 2836 1451 / 1451 Output Total 1900 / 1900 700 / 700 Balance 936 / 936 751 / 751 General: Alert, Oriented x3, Cooperative HEENT: Atraumatic, PERRLA, EOMI, Normocephalic Oral: Dry Mucosa Neck: Supple, No JVD, Negative Carotid Bruits Lungs: Clear to auscultation, Normal air movement, No rhonchi, No wheeze, No rales Cardiovascular: Regular rate, Regular Rhythm, Normal S1, Normal S2, No murmurs Abdomen: Bowel Sounds Present, Soft, Non Tender, Non-Distended Extremities: No edema, Capillary Refill Less than 3 Seconds Skin: No rashes, No breakdown Musculoskeletal: No Tenderness to Palpation of Joints or Extremities, Arthritic Changes Neurological: Cranial nerves II-XII grossly intact Psych/Mental Status: Normal Affect, Appropriate Microbiology Past 72 Hours 10/03/17 12:35 Stool Enteric Bacteriology - Final 10/03/17 12:35 Stool C. difficile DNA Amplification - Final 10/03/17 09:09 Mucosa - Nasopharyngeal Respiratory Panel (PCR) - Final Influenza A (Subtype H3) Laboratory Results 10/03/17 08:40: MRSA (PCR) Negative 10/03/17 14:45: Serum Osmolality 257 L 10/03/17 14:45: Sodium 126 L, Potassium 4.2, Chloride 93 L, Carbon Dioxide 25.0, Anion Gap 8, BUN 8, Creatinine 0.80, Estim Creat Clear Calc 50.26, Est GFR (MDRD) Af Amer 90, Est GFR (MDRD) Non-Af 74, BUN/Creatinine Ratio 10.0, Glucose 111 H, Calcium 7.1 L 10/04/17 04:55: WBC 5.0, RBC 3.74 L, Hgb 10.0 L, Hct 29.7 L, MCV 79.4 L, MCH 26.7 L, MCHC 33.7, RDW 13.3, RDW Differential 38.5, Plt Count 167, MPV 9.3, Immature Gran % (Auto) 0.200, Neut % (Auto) 60.1, Lymph % (Auto) 26.0, Cole % (Auto) 13.3 H, Eos % (Auto) 0.2, Baso % (Auto) 0.2, Absolute Neuts (auto) 3.0, Absolute Lymphs (auto) 1.29, Total Counted Not Reportable 10/04/17 04:55: Sodium 130 L, Potassium 3.0 L, Chloride 97 L, Carbon Dioxide 24.0, Anion Gap 9, BUN 9, Creatinine 0.66, Estim Creat Clear Calc 40.21, Est GFR (MDRD) Af Amer 113, Est GFR (MDRD) Non-Af 93, BUN/Creatinine Ratio 13.7, Glucose 93, Calcium 7.3 L 10/04/17 04:55: Magnesium 1.8 Current Medications Acetaminophen (Tylenol) 650 mg PO Q6H PRN PRN PRN Reason: Fever, headache, pain Albuterol Sulfate (Ventolin Aerosols) 2.5 mg INHALATION Q4H PRN PRN PRN Reason: SOB &/OR WHEEZING Benzonatate (Tessalon Perle) 100 mg PO TID PRN PRN PRN Reason: cough Last Admin: 10/03/17 22:08 Dose: 100 mg Enoxaparin Sodium (Lovenox) 40 mg SC DAILY@1000 CHELY Last Admin: 10/04/17 09:36 Dose: 40 mg Sodium Chloride () 1,000 mls @ 100 mls/hr IV .Q10H CHELY Last Admin: 10/04/17 03:16 Dose: 100 mls/hr Potassium Chloride 40 meq/ (Sodium Chloride) 520 mls @ 130 mls/hr IV Q4H CHELY Stop: 10/04/17 12:09 Last Admin: 10/04/17 09:36 Dose: 130 mls/hr Levothyroxine Sodium (Synthroid) 100 mcg PO BREAKFAST [facility] Last Admin: 10/04/17 07:52 Dose: 100 mcg Losartan Potassium (Cozaar) 50 mg PO DAILY [facility] Last Admin: 10/04/17 09:35 Dose: 50 mg Magnesium Hydroxide (Milk Of Magnesia) 30 ml PO DAILY PRN PRN PRN Reason: Constipation Metoprolol Tartrate (Lopressor (Beta Cris)) 25 mg PO BID [facility] Last Admin: 10/04/17 09:35 Dose: 25 mg Nutritional Formula (Lactose Free) (Ensure Enlive) 120 ml PO 4X/DAY [facility] Last Admin: 10/04/17 09:36 Dose: 120 ml Sodium Chloride () 5 - 30 ml IV UD PRN PRN Reason: SALINE FLUSH Assessment/Plan Active and Suspected Problems Shingles outbreak (Acute) Hyponatremia (Acute) Hypochloremia (Acute) Hypokalemia (Acute) Syncope and collapse (Acute) This is a 77 years old female patient presented to the medicine because of 2 syncopal episodes in context of 3-4 day history of diarrhea, nausea and vomiting, found to have severe hyponatremia and severe hypokalemia. #1 severe hypotonic hypovolemic hyponatremia/severe hypokalemia: Attributed to probable viral gastroenteritis as well as being on HCTZ. Admission sodium is 118 and potassium of 2.6. Patient was initially admitted to ICU. Currently, hemodynamically stable. Can be transferred to PCU. IV fluids with normal saline with potassium replacement. Serum osmolality low 257, sodium 126, K4.2. Anion gap 8. Respiratory panel is positive for influenza A H3. #2 syncope: Attributed to hypovolemia and dehydration secondary to probable viral gastroenteritis. Orthostatic vitals does not meet the criteria for postural hypotension but systolic blood pressure dropped from 149-131 mmHg when from lying to standing position. Patient reported dizziness and lightheadedness preceding the syncopal event. EKG revealed normal sinus rhythm without evidence of acute ischemic changes or cardiac arrhythmias. No reported history of seizure. No focal deficit on physical exam. Plan: IV fluids as above, electrolyte replacement as appropriate. #3 diarrhea/nausea/vomiting will due to influenza A.: Probably due to viral gastroenteritis. Patient has influenza A positive. Started on Tamiflu. IV fluids as above, stool for C. difficile, stool for enteric pathogens negative. #4 hypothyroidism: Continue levothyroxine, check TSH. #5 hypertension: Blood pressure stable, continue losartan and metoprolol, hold HCTZ. #6 DVT prophylaxis: Subcu Lovenox. Microbiology Past 72 Hours 10/03/17 12:35 Stool Enteric Bacteriology - Final 10/03/17 12:35 Stool C. difficile DNA Amplification - Final 10/03/17 09:09 Mucosa - Nasopharyngeal Respiratory Panel (PCR) - Final Influenza A (Subtype H3) Laboratory Results 10/03/17 08:40: MRSA (PCR) Negative 10/03/17 14:45: Serum Osmolality 257 L 10/03/17 14:45: Sodium 126 L, Potassium 4.2, Chloride 93 L, Carbon Dioxide 25.0, Anion Gap 8, BUN 8, Creatinine 0.80, Estim Creat Clear Calc 50.26, Est GFR (MDRD) Af Amer 90, Est GFR (MDRD) Non-Af 74, BUN/Creatinine Ratio 10.0, Glucose 111 H, Calcium 7.1 L 10/04/17 04:55: WBC 5.0, RBC 3.74 L, Hgb 10.0 L, Hct 29.7 L, MCV 79.4 L, MCH 26.7 L, MCHC 33.7, RDW 13.3, RDW Differential 38.5, Plt Count 167, MPV 9.3, Immature Gran % (Auto) 0.200, Neut % (Auto) 60.1, Lymph % (Auto) 26.0, Cole % (Auto) 13.3 H, Eos % (Auto) 0.2, Baso % (Auto) 0.2, Absolute Neuts (auto) 3.0, Absolute Lymphs (auto) 1.29, Total Counted Not Reportable 10/04/17 04:55: Sodium 130 L, Potassium 3.0 L, Chloride 97 L, Carbon Dioxide 24.0, Anion Gap 9, BUN 9, Creatinine 0.66, Estim Creat Clear Calc 40.21, Est GFR (MDRD) Af Amer 113, Est GFR (MDRD) Non-Af 93, BUN/Creatinine Ratio 13.7, Glucose 93, Calcium 7.3 L 10/04/17 04:55: Magnesium 1.8 Code Visit Inpatient E&M: 69953 Subs Hosp L3
--- NOTE | 2017-10-04 10:08 | PN_ITS ---
Patient Problems: Active and Suspected Problems Shingles outbreak (Acute) Hyponatremia (Acute) Hypochloremia (Acute) Hypokalemia (Acute) Syncope and collapse (Acute) Subjective: Seen and examined at the bedside. Patient was admitted for syncope ?2, hyponatremia, hypokalemia and dehydration. Vitals/I&O's: Vital Signs Temp Pulse Resp BP Pulse Ox 98.6 F 79 17 138/67 H 97 10/04/17 08:00 10/04/17 09:35 10/04/17 08:00 10/04/17 09:35 10/04/17 08:00 Oxygen Flow Rate 2 Oxygen Delivery Method Nasal Cannula Weight: 143 lb 15.39 oz Body Mass Index (BMI) 25.8 Intake and Output for Last 24 Hours 10/02/17 10/03/17 10/04/17 23:59 23:59 23:59 Intake Total 2836 / 2836 1451 / 1451 Output Total 1900 / 1900 700 / 700 Balance 936 / 936 751 / 751 General: Alert, Oriented x3, Cooperative HEENT: Atraumatic, PERRLA, EOMI, Normocephalic Oral: Dry Mucosa Neck: Supple, No JVD, Negative Carotid Bruits Lungs: Clear to auscultation, Normal air movement, No rhonchi, No wheeze, No rales Cardiovascular: Regular rate, Regular Rhythm, Normal S1, Normal S2, No murmurs Abdomen: Bowel Sounds Present, Soft, Non Tender, Non-Distended Extremities: No edema, Capillary Refill Less than 3 Seconds Skin: No rashes, No breakdown Musculoskeletal: No Tenderness to Palpation of Joints or Extremities, Arthritic Changes Neurological: Cranial nerves II-XII grossly intact Psych/Mental Status: Normal Affect, Appropriate Microbiology Past 72 Hours 10/03/17 12:35 Stool Enteric Bacteriology - Final 10/03/17 12:35 Stool C. difficile DNA Amplification - Final 10/03/17 09:09 Mucosa - Nasopharyngeal Respiratory Panel (PCR) - Final Influenza A (Subtype H3) Laboratory Results 10/03/17 08:40: MRSA (PCR) Negative 10/03/17 14:45: Serum Osmolality 257 L 10/03/17 14:45: Sodium 126 L, Potassium 4.2, Chloride 93 L, Carbon Dioxide 25.0 , Anion Gap 8, BUN 8, Creatinine 0.80, Estim Creat Clear Calc 50.26, Est GFR ( MDRD) Af Amer 90, Est GFR (MDRD) Non-Af 74, BUN/Creatinine Ratio 10.0, Glucose 111 H, Calcium 7.1 L 10/04/17 04:55: WBC 5.0, RBC 3.74 L, Hgb 10.0 L, Hct 29.7 L, MCV 79.4 L, MCH 26.7 L, MCHC 33.7, RDW 13.3, RDW Differential 38.5, Plt Count 167, MPV 9.3, Immature Gran % (Auto) 0.200, Neut % (Auto) 60.1, Lymph % (Auto) 26.0, [place] % ( Auto) 13.3 H, Eos % (Auto) 0.2, Baso % (Auto) 0.2, Absolute Neuts (auto) 3.0, Absolute Lymphs (auto) 1.29, Total Counted Not Reportable 10/04/17 04:55: Sodium 130 L, Potassium 3.0 L, Chloride 97 L, Carbon Dioxide 24.0, Anion Gap 9, BUN 9, Creatinine 0.66, Estim Creat Clear Calc 40.21, Est GFR (MDRD) Af Amer 113, Est GFR (MDRD) Non-Af 93, BUN/Creatinine Ratio 13.7, Glucose 93, Calcium 7.3 L 10/04/17 04:55: Magnesium 1.8 Current Medications Acetaminophen (Tylenol) 650 mg PO Q6H PRN PRN PRN Reason: Fever, headache, pain Albuterol Sulfate (Ventolin Aerosols) 2.5 mg INHALATION Q4H PRN PRN PRN Reason: SOB &/OR WHEEZING Benzonatate (Tessalon Perle) 100 mg PO TID PRN PRN PRN Reason: cough Last Admin: 10/03/17 22:08 Dose: 100 mg Enoxaparin Sodium (Lovenox) 40 mg SC DAILY@1000 [facility] Last Admin: 10/04/17 09:36 Dose: 40 mg Sodium Chloride () 1,000 mls @ 100 mls/hr IV .Q10H [facility] Last Admin: 10/04/17 03:16 Dose: 100 mls/hr Potassium Chloride 40 meq/ (Sodium Chloride) 520 mls @ 130 mls/hr IV Q4H [facility] Stop: 10/04/17 12:09 Last Admin: 10/04/17 09:36 Dose: 130 mls/hr Levothyroxine Sodium (Synthroid) 100 mcg PO BREAKFAST [facility] Last Admin: 10/04/17 07:52 Dose: 100 mcg Losartan Potassium (Cozaar) 50 mg PO DAILY [facility] Last Admin: 10/04/17 09:35 Dose: 50 mg Magnesium Hydroxide (Milk Of Magnesia) 30 ml PO DAILY PRN PRN PRN Reason: Constipation Metoprolol Tartrate (Lopressor (Beta Cris)) 25 mg PO BID [facility] Last Admin: 10/04/17 09:35 Dose: 25 mg Nutritional Formula (Lactose Free) (Ensure Enlive) 120 ml PO 4X/DAY [facility] Last Admin: 10/04/17 09:36 Dose: 120 ml Sodium Chloride () 5 - 30 ml IV UD PRN PRN Reason: SALINE FLUSH Assessment/Plan Active and Suspected Problems Shingles outbreak (Acute) Hyponatremia (Acute) Hypochloremia (Acute) Hypokalemia (Acute) Syncope and collapse (Acute) This is a 77 years old female patient presented to the medicine because of 2 syncopal episodes in context of 3-4 day history of diarrhea, nausea and vomiting , found to have severe hyponatremia and severe hypokalemia. #1 severe hypotonic hypovolemic hyponatremia/severe hypokalemia: Attributed to probable viral gastroenteritis as well as being on HCTZ. Admission sodium is 118 and potassium of 2.6. Patient was initially admitted to ICU. Currently, hemodynamically stable. Can be transferred to PCU. IV fluids with normal saline with potassium replacement. Serum osmolality low 257, sodium 126, K4.2. Anion gap 8. Respiratory panel is positive for influenza A H3. #2 syncope: Attributed to hypovolemia and dehydration secondary to probable viral gastroenteritis. Orthostatic vitals does not meet the criteria for postural hypotension but systolic blood pressure dropped from 149-131 mmHg when from lying to standing position. Patient reported dizziness and lightheadedness preceding the syncopal event. EKG revealed normal sinus rhythm without evidence of acute ischemic changes or cardiac arrhythmias. No reported history of seizure. No focal deficit on physical exam. Plan: IV fluids as above, electrolyte replacement as appropriate. #3 diarrhea/nausea/vomiting will due to influenza A.: Probably due to viral gastroenteritis. Patient has influenza A positive. Started on Tamiflu. IV fluids as above, stool for C. difficile, stool for enteric pathogens negative. #4 hypothyroidism: Continue levothyroxine, check TSH. #5 hypertension: Blood pressure stable, continue losartan and metoprolol, hold HCTZ. #6 DVT prophylaxis: Subcu Lovenox. Microbiology Past 72 Hours 10/03/17 12:35 Stool Enteric Bacteriology - Final 10/03/17 12:35 Stool C. difficile DNA Amplification - Final 10/03/17 09:09 Mucosa - Nasopharyngeal Respiratory Panel (PCR) - Final Influenza A (Subtype H3) Laboratory Results 10/03/17 08:40: MRSA (PCR) Negative 10/03/17 14:45: Serum Osmolality 257 L 10/03/17 14:45: Sodium 126 L, Potassium 4.2, Chloride 93 L, Carbon Dioxide 25.0 , Anion Gap 8, BUN 8, Creatinine 0.80, Estim Creat Clear Calc 50.26, Est GFR ( MDRD) Af Amer 90, Est GFR (MDRD) Non-Af 74, BUN/Creatinine Ratio 10.0, Glucose 111 H, Calcium 7.1 L 10/04/17 04:55: WBC 5.0, RBC 3.74 L, Hgb 10.0 L, Hct 29.7 L, MCV 79.4 L, MCH 26.7 L, MCHC 33.7, RDW 13.3, RDW Differential 38.5, Plt Count 167, MPV 9.3, Immature Gran % (Auto) 0.200, Neut % (Auto) 60.1, Lymph % (Auto) 26.0, [place] % ( Auto) 13.3 H, Eos % (Auto) 0.2, Baso % (Auto) 0.2, Absolute Neuts (auto) 3.0, Absolute Lymphs (auto) 1.29, Total Counted Not Reportable 10/04/17 04:55: Sodium 130 L, Potassium 3.0 L, Chloride 97 L, Carbon Dioxide 24.0, Anion Gap 9, BUN 9, Creatinine 0.66, Estim Creat Clear Calc 40.21, Est GFR (MDRD) Af Amer 113, Est GFR (MDRD) Non-Af 93, BUN/Creatinine Ratio 13.7, Glucose 93, Calcium 7.3 L 10/04/17 04:55: Magnesium 1.8 Code Visit Inpatient E&M: 20926 Subs Hosp L3
[2017-10-04] MEDS: Oseltamivir Phosphate 30 MG Capsule PO ×2 (11:22→21:39)
--- NOTE | 2017-10-04 15:39 | CHAPLAIN ---
Type of Pastoral Visit _x__ Initial Visit ___ Follow-up Visit ___ On-call Visit ___ General Patient Visit ___ Spiritual Assessment ___ Family Conference ___ Bereavement ___ Rapid Response ___ Code Blue ___ Other (describe below) Pastoral Care Referral From _x__ Patient ___ Family ___ Nurse ___ Physician ___ Senior C Web Developer ___ Web Consultant ___ Other (describe below) Sacrament/Intervention _x__ Active listening ___ Anointing ___ Pentecostal ___ Bereavement ___ Communion ___ Mihaela exploration ___ ___ Life review ___ Prayer ___ Reconciliation ___ Sacrament of Sick ___ Supportive presence ___ Wedding ___ Other (describe below) Pastoral Comments patient was in the bathroom when I came to room; spouse of pt was standing at doorway and we had a conversation; spouse tells me about illness of pt; spouse tells me that their are of the Jehovah Witness mihaela and that they have already read their scriptures and said their prayers for today; spouse says that all they need is to know that you are interested and care; offered spouse to return as needed and this on site coordinator gave spouse a calling card
[2017-10-04] MEDS: guaiFENesin Dm 10 ML UDC PO (20:14)
[2017-10-04] MEDS: Benzonatate 100 MG Capsule PO (21:38)
[2017-10-05] VITALS (15 sets, daily range): BP systolic 140–163; BP diastolic 70–83; PULSE 57–91; RESP 14–20; TEMP 36.5–37.2; O2SAT 94–96
[2017-10-05] MEDS: Albuterol 2.5 MG/3 ML VIAL.NEB. INHALATION (01:46)
--- NOTE | 2017-10-05 08:57 | PCM.PROGNOTE ---
Patient Problems: Active and Suspected Problems Shingles outbreak (Acute) Hyponatremia (Acute) Hypochloremia (Acute) Hypokalemia (Acute) Syncope and collapse (Acute) Subjective: Patient was seen and examined. She is sitting up in bed in no acute distress. Complains of some wheezing throughout the night and received a breathing treatment around 2 AM. She is feeling intermittently short of breath. Also endorses a cough with intermittent yellow sputum production. Reports some mild lower extremity edema, which is not typical for her. Patient maintaining appropriate saturations on room air. Temp this morning was 99.0?F. Denies any fever or chills. Denies any pain. Reports she feels weak when out of bed, not ambulating much except to go to the bathroom. Objective: No lab work performed this morning. Hemoglobin yesterday was 10.0 down from 11.9, patient has been receiving normal saline at 100 cc an hour for several days. Her sodium yesterday was 130 and potassium 3.0. Renal function is stable. Cumulative fluid balance +4075 mL. Respiratory panel was significant for influenza A, subtype H3, C. difficile and enteric panel were both negative. - Physical Exam General: Alert, Oriented x3, Cooperative, No apparent distress, - - No conversational dyspnea HEENT: Atraumatic, Normocephalic Oral: Moist Mucosa Neck: Supple, No Nodes, Trachea Midline Lungs: Diminished, - - Faint posterior expiratory wheeze, bibasilar Rales. No dullness to percussion, no accessory muscle use Cardiovascular: Regular rate, Regular Rhythm, Normal S1, Normal S2, No murmurs, No rub noted, No Gallop Abdomen: Bowel Sounds Present, Soft, Non Tender Extremities: No clubbing, No cyanosis, No edema, Capillary Refill Less than 3 Seconds, Edema Skin: No rashes, No breakdown, - - small area to right posterior/lateral hip with scabbed/healing lesions, no surrounding erythema or edema Musculoskeletal: No Tenderness to Palpation of Joints or Extremities Lymphatic: No Cervical, Supraclavicular, or Inguinal Adenopathy Neurological: Cranial nerves II-XII grossly intact, Neuro grossly intact, Motor Exam 5/5 strength throughout Psych/Mental Status: Alert and oriented to time, place, person, mood and affect Vital Signs Temp Pulse Resp BP Pulse Ox 99.0 F 69 20 H 140/72 H 94 02/13/18 03:40 10/05/17 07:18 10/05/17 03:40 10/05/17 03:40 10/05/17 03:40 Oxygen Flow Rate 2 Oxygen Delivery Method Room Air Weight: 150 lb 2.157 oz Body Mass Index (BMI) 25.8 Intake and Output for Last 24 Hours 10/03/17 10/04/17 10/05/17 23:59 23:59 23:59 Intake Total 2836 / 2836 3603 / 3603 736 / 736 Output Total 1900 / 1900 1200 / 1200 Balance 936 / 936 2403 / 2403 736 / 736 Microbiology Past 72 Hours 10/03/17 12:35 Enteric Bacteriology - Final Stool 10/03/17 12:35 C. difficile DNA Amplification - Final Stool 10/03/17 09:09 Respiratory Panel (PCR) - Final Mucosa - Nasopharyngeal Influenza A (Subtype H3) Assessment/Plan Active and Suspected Problems Shingles outbreak (Acute) Hyponatremia (Acute) Hypochloremia (Acute) Hypokalemia (Acute) Syncope and collapse (Acute) RECOMMENDATIONS: 1. Continue supplemental IV fluids, possible decrease pending labwork 2. Additional potassium repletion as indicated 3. Contact precautions for shingles 4. Encourage incentive spirometer use 5. Increase activity, ambulate 6. Continue Lovenox for DVT prophylaxis IMPRESSIONS: 1. Syncope Clinical suspicion for volume depletion, but patient was not orthostatic in the emergency room. The patient is improving clinically with IV fluid hydration. No further syncopal episodes. We will continue to monitor accordingly. 2. Influenza A infection Continue current supportive measures with IV fluids, will recheck labwork and slow IVF if indicated since patient has some increased shortness of breath/rales. There would be no clinical indication for the use of Tamiflu, given the time duration that has elapsed since symptoms initially began. 3. Hypovolemic hyponatremia/hypokalemia Patient with 1 week history of nausea, vomiting and diarrhea. The patient has improved clinically with intravascular volume expansion. Sodium is improving. We will continue with supplemental IV fluids for now, pending repeat labs. Correction of electrolyte imbalances as indicated. 4. Recent diagnosis of shingles Patient with minimal symptomatology at this time. Likely okay to hold off on acyclovir therapy. Continue with contact precautions. Pain control as indicated. 5. Hypertension/hypothyroidism/advanced age/Jehovah witness Complicates care, management, recovery and prognosis. Likely okay to continue with baseline medications. This note was generated with zeeWAVES dictation software. It may contain incorrect words, spelling, and punctuation that were not noted in checking the note before signing.
[2017-10-05] MEDS: Levothyroxine 100 MCG Tablet PO (09:10)
[2017-10-05] MEDS: Metoprolol Tartrate 25 MG Tablet PO ×2 (09:11→21:32)
[2017-10-05] MEDS: Losartan Potassium 50 MG Tablet PO (09:11)
[2017-10-05] MEDS: Oseltamivir Phosphate 30 MG Capsule PO (09:12)
[2017-10-05] MEDS: Enoxaparin 40 MG/0.4 ML Syringe SC (09:13)
[2017-10-05 09:18] LABS: Absolute Lymphocyte Count 1.49 X10^3/ul (0.83-4.51); Absolute Neutrophil Count 2.6 X10^3/uL (2.0-7.7); Basophil# 0.05 X10^3/uL; Eosinophil# 0.03 X10^3/uL; Eosinophils% 0.6 % (0-5); Hematocrit 30.6 % (37-47); Hemoglobin 10.5 g/dl (12.0-15.0); Lymphocyte # 1.49 X10^3/ul (4.0); Lymphocyte % 31.2 % (19-41); Mean Corp Hgb Conc 34.3 g/gl (32-36); Mean Corpuscular Hgb 27.4 pg (27.0-32.0); Mean Corpuscular Volume 79.9 fL (81-99); Mean Platelet Vol. 9.7 fl (6.2-12.0); Monocyte% 12.6 % (0-10); Neutrophil % 54.4 % (47-70); Platelet Count 177 K/mm3 (150-450); RBC Distribution Width CV 13.4 % (11.6-14.6); RBC Distribution Width SD 38.1 fl (35.1-43.9); Red Blood Count 3.83 M/mm3 (4.2-5.4); White Blood Count 4.8 K/mm3 (4.4-11.0)
[2017-10-05 09:19] LABS: POSITIVE COUNT NO; POSITIVE DIFFERENTIAL NO; POSITIVE MORPHOLOGY NO
[2017-10-05 09:29] LABS: Anion Gap 8 (5-15); BUN 5 mg/dL (7-18); BUN/Creat Ratio 8.7 RATIO (10-20); Calcium,Total 7.6 mg/dL (8.5-10.1); Chloride 101 mmol/L (98-107); Creatinine, Serum 0.57 mg/dL (0.55-1.02); EST Glomerular Filtration Rate 109 mL/min (>60); Est Glom Filt Rate - Afr Amer 132 mL/min (>60); Estimated Creatinine Clearance 40.21 ml/min; Glucose 106 mg/dL (74-106); Potassium 3.4 mmol/L (3.5-5.1); Sodium Level 134 mmol/L (136-145)
--- NOTE | 2017-10-05 12:27 | RAD_ITS ---
STUDY: X-RAY CHEST REASON FOR EXAM: Female, 77 years old. Cough. Shortness of breath and dyspnea. TECHNIQUE: PA and lateral views of the chest. COMPARISON: Comparison is made with prior study dated October 03, 2017. FINDINGS: EKG electrodes are seen. Stable mild increased markings at the lung bases suggestive of a bibasilar atelectasis and/or scarring. This is slightly worse on the left side. There is blunting of the left costophrenic angle. Normal size heart. Normal mediastinum and enoc. Normal visualized pulmonary arteries. There is atherosclerotic calcification of the aortic arch with tortuosity. There are diffuse degenerative changes of the visualized thoracic spine. Normal visualized ribs, clavicles, and shoulders. There is no demonstrated abnormality of the visualized soft tissue structures of the upper abdomen. RAD/Chest PA and Lateral IMPRESSION: Mild increased markings at the lung base are slightly worse on the left side with blunting of left costophrenic angle. This is essentially unchanged. Electronically Signed: Albin Powell MD at 14:15 EST Tel [phone], Service support ,
--- NOTE | 2017-10-05 12:30 | PCM.PROGNOTE ---
<Delgado Ovalle - Last Filed: 10/05/17 12:30> Patient Problems: Active and Suspected Problems Shingles outbreak (Acute) Hyponatremia (Acute) Hypochloremia (Acute) Hypokalemia (Acute) Syncope and collapse (Acute) Subjective: Pt complaining of overall weakness, some increased SOB today. She continues to cough with yellow mucus production. No fever or chills. She has no further dizziness or LH. No further N/V/D. - Physical Exam General: Alert, Oriented x3, Cooperative HEENT: Atraumatic, PERRLA, EOMI, Normocephalic Neck: Supple, No JVD, Negative Carotid Bruits Lungs: Clear to auscultation, Diminished Cardiovascular: Regular rate, No murmurs Abdomen: Bowel Sounds Present, Soft, Non Tender Extremities: Capillary Refill Less than 3 Seconds, Edema - mild puffy non pitting edema BLE Skin: No rashes, No breakdown Musculoskeletal: No Tenderness to Palpation of Joints or Extremities Neurological: Cranial nerves II-XII grossly intact Psych/Mental Status: Normal Affect, Appropriate, Alert and oriented to time, place, person, mood and affect Vital Signs Temp Pulse Resp BP Pulse Ox 97.7 F L 91 18 163/70 H 94 10/05/17 09:02 10/05/17 11:06 10/05/17 09:02 10/05/17 09:14 10/05/17 10:48 Oxygen Flow Rate 2 Oxygen Delivery Method Room Air Weight: 68.1 kg Body Mass Index (BMI) 25.8 Orthostatic Vital Signs Start: 10/05/17 09:14 Freq: q24h Status: Active Protocol: Activity Type Activity Date Activity User E-Sign Co-Sign Detail Recorded Client Recorded Date Recorded By Document 10/05/17 09:14 [facility] [id number] 10/05/17 09:26 [facility] 10/05/17 09:14 Orthostatic Vitals Standing -Blood Pressure (90/60-120/80) 159/75 H -Extremity Use Right Arm -Pulse Rate (60-100) 75 Sitting -Blood Pressure (90/60-120/80) 162/75 H -Extremity Use Right Arm -Pulse Rate (60-100) 72 Lying -Blood Pressure (90/60-120/80) 163/70 H -Extremity Use Right Arm -Pulse Rate (60-100) 66 Intake and Output for Last 24 Hours 10/03/17 10/04/17 10/05/17 23:59 23:59 23:59 Intake Total 2836 / 2836 3603 / 3603 1830 / 1830 Output Total 1900 / 1900 1200 / 1200 Balance 936 / 936 2403 / 2403 1830 / 1830 Microbiology Past 72 Hours 10/03/17 12:35 Enteric Bacteriology - Final Stool 10/03/17 12:35 C. difficile DNA Amplification - Final Stool 10/03/17 09:09 Respiratory Panel (PCR) - Final Mucosa - Nasopharyngeal Influenza A (Subtype H3) Laboratory Tests Past 24 Hrs 10/05/17 10/05/17 09:05 09:05 WBC 4.8 RBC 3.83 L Hgb 10.5 L Hct 30.6 L MCV 79.9 L MCH 27.4 MCHC 34.3 RDW 13.4 RDW Differential 38.1 Plt Count 177 MPV 9.7 Immature Gran % (Auto) 0.200 Neut % (Auto) 54.4 Lymph % (Auto) 31.2 [place] % (Auto) 12.6 H Eos % (Auto) 0.6 Baso % (Auto) 1.0 Absolute Neuts (auto) 2.6 Absolute Lymphs (auto) 1.49 Total Counted Not Reportable Sodium 134 L Potassium 3.4 L Chloride 101 Carbon Dioxide 25.0 Anion Gap 8 BUN 5 L Creatinine 0.57 Estim Creat Clear Calc 40.21 Est GFR (MDRD) Af Amer 132 Est GFR (MDRD) Non-Af 109 BUN/Creatinine Ratio 8.7 L Glucose 106 Calcium 7.6 L Assessment/Plan Active and Suspected Problems Shingles outbreak (Acute) Hyponatremia (Acute) Hypochloremia (Acute) Hypokalemia (Acute) Syncope and collapse (Acute) 1. Hypotonic hypovolemic hyponatremia and hypokalemia - 2/2 viral gastroenteritis and HCTZ. Sodium continues to improve. K repleted. Will DC IV fluids to avoid fluid overload. Small Left Pleural effusion on initial CXR. Will check repeat CXR today. She is not requiring O2. Will recheck urine lytes. 2. Syncopal episode 2/2 above - orthos are negative . 3. Acute influenza A viral gastroenteritis and bronchitis - On tamiflu. C diff negative. 4. Hypothyroidism - continue synthroid. TSH normal. 5. microcytic anemia - Check iron studies. 6. HTN - elevated. HCTZ stopped 2/ #1. Continue ARB/BB. May need to increase losartan. 7. Weakness - PTOT DVT ppx: lovenox DC planning: continue PTOT for weakness. Possibly stable for DC tomorrow. This patient was seen by Delgado Ovalle PA-C under the supervision of Dr. Tatum. <Jose Tatum - Last Filed: 10/05/17 15:14> Subjective: Patient overall complaint of weakness and mild shortness of breath on walking. She has cough. Repeat chest x-ray ordered. - Physical Exam General: Alert, Oriented x3, Cooperative HEENT: Atraumatic, PERRLA, EOMI, Normocephalic Neck: Supple, No JVD, Negative Carotid Bruits Lungs: Normal air movement, Diminished, Rales - Find rales auscultated Cardiovascular: Regular rate, No murmurs Abdomen: Bowel Sounds Present, Soft, Non Tender, Non-Distended Extremities: No edema, Capillary Refill Less than 3 Seconds Skin: No rashes, No breakdown Musculoskeletal: No Tenderness to Palpation of Joints or Extremities Neurological: Cranial nerves II-XII grossly intact Psych/Mental Status: Normal Affect, Appropriate Vital Signs Temp Pulse Resp BP Pulse Ox 98.7 F 66 18 141/71 H 96 10/05/17 14:45 10/05/17 14:45 10/05/17 14:45 10/05/17 14:45 10/05/17 14:45 Oxygen Flow Rate 2 Oxygen Delivery Method Room Air Weight: 150 lb 2.157 oz Body Mass Index (BMI) 25.8 Orthostatic Vital Signs Start: 10/05/17 09:14 Freq: q24h Status: Active Protocol: Activity Type Activity Date Activity User E-Sign Co-Sign Detail Recorded Client Recorded Date Recorded By Document 10/05/17 09:14 [facility] [id number] 10/05/17 09:26 [facility] 10/05/17 09:14 Orthostatic Vitals Standing -Blood Pressure (90/60-120/80) 159/75 H -Extremity Use Right Arm -Pulse Rate (60-100) 75 Sitting -Blood Pressure (90/60-120/80) 162/75 H -Extremity Use Right Arm -Pulse Rate (60-100) 72 Lying -Blood Pressure (90/60-120/80) 163/70 H -Extremity Use Right Arm -Pulse Rate (60-100) 66 Intake and Output for Last 24 Hours 10/03/17 10/04/17 10/05/17 23:59 23:59 23:59 Intake Total 2836 / 2836 3603 / 3603 1830 / 1830 Output Total 1900 / 1900 1200 / 1200 200 / 200 Balance 936 / 936 2403 / 2403 1630 / 1630 Microbiology Past 72 Hours 10/03/17 12:35 Enteric Bacteriology - Final Stool 10/03/17 12:35 C. difficile DNA Amplification - Final Stool 10/03/17 09:09 Respiratory Panel (PCR) - Final Mucosa - Nasopharyngeal Influenza A (Subtype H3) Laboratory Tests Past 24 Hrs 10/05/17 10/05/17 10/05/17 09:05 09:05 09:05 WBC 4.8 RBC 3.83 L Hgb 10.5 L Hct 30.6 L MCV 79.9 L MCH 27.4 MCHC 34.3 RDW 13.4 RDW Differential 38.1 Plt Count 177 MPV 9.7 Immature Gran % (Auto) 0.200 Neut % (Auto) 54.4 Lymph % (Auto) 31.2 [place] % (Auto) 12.6 H Eos % (Auto) 0.6 Baso % (Auto) 1.0 Absolute Neuts (auto) 2.6 Absolute Lymphs (auto) 1.49 Total Counted Not Reportable Sodium 134 L Potassium 3.4 L Chloride 101 Carbon Dioxide 25.0 Anion Gap 8 BUN 5 L Creatinine 0.57 Estim Creat Clear Calc 40.21 Est GFR (MDRD) Af Amer 132 Est GFR (MDRD) Non-Af 109 BUN/Creatinine Ratio 8.7 L Glucose 106 Calcium 7.6 L Iron 20 L TIBC 299 Iron Saturation 6.7 L Ferritin 54 Assessment/Plan This patient was seen in conjunction with Delgado SIMPSON. I have independently interviewed and examined the patient and reviewed pertinent history, examination findings, laboratory and plan of management. I have reviewed the note and agree with the documented findings with the few additional points. In brief, patient is admitted for severe hypotonic hypovolemic hyponatremia secondary to intravascular volume depletion HCTZ. Discussed with the supervisor grips. On admission urine osmolality is low and so in overall clinical context, SIADH ruled out. Chest x-ray shows mild increased markings at the lung bases, slightly worse on the left side but unchanged from the previous x-ray. IV fluid is discontinued. Urine lites ordered. Plan for discharge tomorrow. I have discussed my assessment with Delgado SIMPSON and orders have been reviewed. Code Visit Inpatient E&M: 35990 Subs Hosp L3
--- NOTE | 2017-10-05 12:40 | PN_ITS ---
<Delgado Ovalle - Last Filed: 10/05/17 12:30> Patient Problems: Active and Suspected Problems Shingles outbreak (Acute) Hyponatremia (Acute) Hypochloremia (Acute) Hypokalemia (Acute) Syncope and collapse (Acute) Subjective: Pt complaining of overall weakness, some increased SOB today. She continues to cough with yellow mucus production. No fever or chills. She has no further dizziness or LH. No further N/V/D. - Physical Exam General: Alert, Oriented x3, Cooperative HEENT: Atraumatic, PERRLA, EOMI, Normocephalic Neck: Supple, No JVD, Negative Carotid Bruits Lungs: Clear to auscultation, Diminished Cardiovascular: Regular rate, No murmurs Abdomen: Bowel Sounds Present, Soft, Non Tender Extremities: Capillary Refill Less than 3 Seconds, Edema - mild puffy non pitting edema BLE Skin: No rashes, No breakdown Musculoskeletal: No Tenderness to Palpation of Joints or Extremities Neurological: Cranial nerves II-XII grossly intact Psych/Mental Status: Normal Affect, Appropriate, Alert and oriented to time, place, person, mood and affect Vital Signs Temp Pulse Resp BP Pulse Ox 97.7 F L 91 18 163/70 H 94 10/05/17 09:02 10/05/17 11:06 10/05/17 09:02 10/05/17 09:14 10/05/17 10:48 Oxygen Flow Rate 2 Oxygen Delivery Method Room Air Weight: 68.1 kg Body Mass Index (BMI) 25.8 Orthostatic Vital Signs Start: 10/05/17 09:14 Freq: q24h Status: Active Protocol: Activity Type Activity Date Activity User E-Sign Co-Sign Detail Recorded Client Recorded Date Recorded By Document 10/05/17 09:14 [facility] [id number] 10/05/17 09:26 [facility] 10/05/17 09:14 Orthostatic Vitals Standing -Blood Pressure (90/60-120/80) 159/75 H -Extremity Use Right Arm -Pulse Rate (60-100) 75 Sitting -Blood Pressure (90/60-120/80) 162/75 H -Extremity Use Right Arm -Pulse Rate (60-100) 72 Lying -Blood Pressure (90/60-120/80) 163/70 H -Extremity Use Right Arm -Pulse Rate (60-100) 66 Intake and Output for Last 24 Hours 10/03/17 10/04/17 10/05/17 23:59 23:59 23:59 Intake Total 2836 / 2836 3603 / 3603 1830 / 1830 Output Total 1900 / 1900 1200 / 1200 Balance 936 / 936 2403 / 2403 1830 / 1830 Microbiology Past 72 Hours 10/03/17 12:35 Enteric Bacteriology - Final Stool 10/03/17 12:35 C. difficile DNA Amplification - Final Stool 10/03/17 09:09 Respiratory Panel (PCR) - Final Mucosa - Nasopharyngeal Influenza A (Subtype H3) Laboratory Tests Past 24 Hrs 10/05/17 10/05/17 09:05 09:05 WBC 4.8 RBC 3.83 L Hgb 10.5 L Hct 30.6 L MCV 79.9 L MCH 27.4 MCHC 34.3 RDW 13.4 RDW Differential 38.1 Plt Count 177 MPV 9.7 Immature Gran % (Auto) 0.200 Neut % (Auto) 54.4 Lymph % (Auto) 31.2 [place] % (Auto) 12.6 H Eos % (Auto) 0.6 Baso % (Auto) 1.0 Absolute Neuts (auto) 2.6 Absolute Lymphs (auto) 1.49 Total Counted Not Reportable Sodium 134 L Potassium 3.4 L Chloride 101 Carbon Dioxide 25.0 Anion Gap 8 BUN 5 L Creatinine 0.57 Estim Creat Clear Calc 40.21 Est GFR (MDRD) Af Amer 132 Est GFR (MDRD) Non-Af 109 BUN/Creatinine Ratio 8.7 L Glucose 106 Calcium 7.6 L Assessment/Plan Active and Suspected Problems Shingles outbreak (Acute) Hyponatremia (Acute) Hypochloremia (Acute) Hypokalemia (Acute) Syncope and collapse (Acute) 1. Hypotonic hypovolemic hyponatremia and hypokalemia - 2/2 viral gastroenteritis and HCTZ. Sodium continues to improve. K repleted. Will DC IV fluids to avoid fluid overload. Small Left Pleural effusion on initial CXR. Will check repeat CXR today. She is not requiring O2. Will recheck urine lytes. 2. Syncopal episode 2/2 above - orthos are negative . 3. Acute influenza A viral gastroenteritis and bronchitis - On tamiflu. C diff negative. 4. Hypothyroidism - continue synthroid. TSH normal. 5. microcytic anemia - Check iron studies. 6. HTN - elevated. HCTZ stopped 2/ #1. Continue ARB/BB. May need to increase losartan. 7. Weakness - PTOT DVT ppx: lovenox DC planning: continue PTOT for weakness. Possibly stable for DC tomorrow. This patient was seen by Delgado Ovalle PA-C under the supervision of Dr. Tatum. <Jose Tatum - Last Filed: 10/05/17 15:14> Subjective: Patient overall complaint of weakness and mild shortness of breath on walking. She has cough. Repeat chest x-ray ordered. - Physical Exam General: Alert, Oriented x3, Cooperative HEENT: Atraumatic, PERRLA, EOMI, Normocephalic Neck: Supple, No JVD, Negative Carotid Bruits Lungs: Normal air movement, Diminished, Rales - Find rales auscultated Cardiovascular: Regular rate, No murmurs Abdomen: Bowel Sounds Present, Soft, Non Tender, Non-Distended Extremities: No edema, Capillary Refill Less than 3 Seconds Skin: No rashes, No breakdown Musculoskeletal: No Tenderness to Palpation of Joints or Extremities Neurological: Cranial nerves II-XII grossly intact Psych/Mental Status: Normal Affect, Appropriate Vital Signs Temp Pulse Resp BP Pulse Ox 98.7 F 66 18 141/71 H 96 10/05/17 14:45 10/05/17 14:45 10/05/17 14:45 10/05/17 14:45 10/05/17 14:45 Oxygen Flow Rate 2 Oxygen Delivery Method Room Air Weight: 150 lb 2.157 oz Body Mass Index (BMI) 25.8 Orthostatic Vital Signs Start: 10/05/17 09:14 Freq: q24h Status: Active Protocol: Activity Type Activity Date Activity User E-Sign Co-Sign Detail Recorded Client Recorded Date Recorded By Document 10/05/17 09:14 [facility] [id number] 10/05/17 09:26 [facility] 10/05/17 09:14 Orthostatic Vitals Standing -Blood Pressure (90/60-120/80) 159/75 H -Extremity Use Right Arm -Pulse Rate (60-100) 75 Sitting -Blood Pressure (90/60-120/80) 162/75 H -Extremity Use Right Arm -Pulse Rate (60-100) 72 Lying -Blood Pressure (90/60-120/80) 163/70 H -Extremity Use Right Arm -Pulse Rate (60-100) 66 Intake and Output for Last 24 Hours 10/03/17 10/04/17 10/05/17 23:59 23:59 23:59 Intake Total 2836 / 2836 3603 / 3603 1830 / 1830 Output Total 1900 / 1900 1200 / 1200 200 / 200 Balance 936 / 936 2403 / 2403 1630 / 1630 Microbiology Past 72 Hours 10/03/17 12:35 Enteric Bacteriology - Final Stool 10/03/17 12:35 C. difficile DNA Amplification - Final Stool 10/03/17 09:09 Respiratory Panel (PCR) - Final Mucosa - Nasopharyngeal Influenza A (Subtype H3) Laboratory Tests Past 24 Hrs 10/05/17 10/05/17 10/05/17 09:05 09:05 09:05 WBC 4.8 RBC 3.83 L Hgb 10.5 L Hct 30.6 L MCV 79.9 L MCH 27.4 MCHC 34.3 RDW 13.4 RDW Differential 38.1 Plt Count 177 MPV 9.7 Immature Gran % (Auto) 0.200 Neut % (Auto) 54.4 Lymph % (Auto) 31.2 [place] % (Auto) 12.6 H Eos % (Auto) 0.6 Baso % (Auto) 1.0 Absolute Neuts (auto) 2.6 Absolute Lymphs (auto) 1.49 Total Counted Not Reportable Sodium 134 L Potassium 3.4 L Chloride 101 Carbon Dioxide 25.0 Anion Gap 8 BUN 5 L Creatinine 0.57 Estim Creat Clear Calc 40.21 Est GFR (MDRD) Af Amer 132 Est GFR (MDRD) Non-Af 109 BUN/Creatinine Ratio 8.7 L Glucose 106 Calcium 7.6 L Iron 20 L TIBC 299 Iron Saturation 6.7 L Ferritin 54 Assessment/Plan This patient was seen in conjunction with Delgado SIMPSON. I have independently interviewed and examined the patient and reviewed pertinent history, examination findings, laboratory and plan of management. I have reviewed the note and agree with the documented findings with the few additional points. In brief, patient is admitted for severe hypotonic hypovolemic hyponatremia secondary to intravascular volume depletion HCTZ. 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 On admission urine osmolality is low and so in overall clinical context, SIADH ruled out. Chest x-ray shows mild increased markings at the lung bases, slightly worse on the left side but unchanged from the previous x- ray. IV fluid is discontinued. Urine lites ordered. Plan for discharge tomorrow. I have discussed my assessment with Delgado SIMPSON and orders have been reviewed. Code Visit Inpatient E&M: 51848 Subs Hosp L3
[2017-10-05 13:34] LABS: Ferritin 54 ng/mL (8-252); Iron 20 ug/dL (50-170); Iron Binding Capacity,Total 299 ug/dL (250-450); PERCENT IRON SATURATION 6.7 % (15.0-55.0)
--- NOTE | 2017-10-05 14:10 | PCM.CONS.R ---
Problem List (1) Hyponatremia Status: Acute (2) Hypochloremia Status: Acute (3) Hypokalemia Status: Acute Consultation - Renal PCP/ Referring MD: Requesting physician: [] Primary care physician: Sreekanth Cortez - History of Present Illness History of Present Illness: The patient is a 77 year old F past medical history of hypertension and hypothyroidism presented to the hospital in October 03 after she was found unresponsive by her . called EMS and patient was brought to [facility] . Before that patient she had been complaining of nausea vomiting with diarrhea for a week. He was found to have severe hypokalemia with hyponatremia and dehydration. Patient was taken hydrochlorothiazide for blood pressure management Initially patient presented with the sodium 118 and potassium 2.6. Patient was given fluid normal saline. His sodium improved and 8 hours to 126. Sodium improved by 16mEq/dL in 48 hours. Also her potassium was corrected with replacement. Potassium today 3.4. Patient asymptomatic today except for little shortness of breath and some leg edema. Patient states she is eating well. No diarrhea no nausea no vomiting. Hydrochlorothiazide was stopped. Blood pressure started to rise with a systolic blood pressure more than 140. No NSAID use. Patient is not in SSRIs or any medication that increase excretion of vasopressin or increase its effect. ROS: Systems review is negative except what mentioned in the HPI - Allergies Allergies: Allergies No Known Allergies Allergy (Verified 10/03/17 05:55) - Current Medications Current Medications: Current Medications Acetaminophen (Tylenol) 650 mg PO Q6H PRN PRN PRN Reason: Fever, headache, pain Albuterol Sulfate (Ventolin Aerosols) 2.5 mg INHALATION Q4H PRN PRN PRN Reason: SOB &/OR WHEEZING Last Admin: 10/05/17 01:46 Dose: 2.5 mg Benzonatate (Tessalon Perle) 100 mg PO TID PRN PRN PRN Reason: cough Last Admin: 10/04/17 21:38 Dose: 100 mg Enoxaparin Sodium (Lovenox) 40 mg SC DAILY@1000 CHELY Last Admin: 10/05/17 09:13 Dose: 40 mg Guaifenesin (Robitussin Dm) 10 ml PO Q4H PRN PRN PRN Reason: COUGH Last Admin: 10/04/17 20:14 Dose: 10 ml Levothyroxine Sodium (Synthroid) 100 mcg PO BREAKFAST [facility] Last Admin: 10/05/17 09:10 Dose: 100 mcg Losartan Potassium (Cozaar) 50 mg PO DAILY [facility] Last Admin: 10/05/17 09:11 Dose: 50 mg Magnesium Hydroxide (Milk Of Magnesia) 30 ml PO DAILY PRN PRN PRN Reason: Constipation Metoprolol Tartrate (Lopressor (Beta Cris)) 25 mg PO BID [facility] Last Admin: 10/05/17 09:11 Dose: 25 mg Nutritional Formula (Lactose Free) (Ensure Enlive) 120 ml PO 4X/DAY [facility] Last Admin: 10/05/17 09:13 Dose: 120 ml Sodium Chloride () 5 - 30 ml IV UD PRN PRN Reason: SALINE FLUSH - Past Medical History Past Medical History (Chronic Problems): Chronic Problems Hypothyroidism (Chronic) Hypertension (Chronic) - Past Surgical History Surgical History: - - Surgery for carpal tunnel syndrome. - Social History Smoking Status: Never smoker Alcohol: None Drugs: None - Family History Maternal History Items: No pertinent history Paternal History Items: No pertinent history Patient Problems: Active and Suspected Problems Shingles outbreak (Acute) Hyponatremia (Acute) Hypochloremia (Acute) Hypokalemia (Acute) Syncope and collapse (Acute) - Physical Exam General: Alert, Oriented x3 HEENT: Atraumatic Oral: Moist Mucosa Neck: Supple, No JVD Cardiovascular: Regular rate, Regular Rhythm, Normal S1, - - Lungs basilar crackles Abdomen: Bowel Sounds Present, Soft Extremities: No clubbing, No cyanosis, - - Edema of lower extremities Musculoskeletal: No Tenderness to Palpation of Joints or Extremities Lymphatic: No Cervical, Supraclavicular, or Inguinal Adenopathy Neurological: Cranial nerves II-XII grossly intact, Neuro grossly intact Psych/Mental Status: Normal Affect Vital Signs Temp Pulse Resp BP Pulse Ox 97.7 F L 91 18 163/70 H 94 10/05/17 09:02 10/05/17 11:06 10/05/17 09:02 10/05/17 09:14 10/05/17 10:48 Oxygen Flow Rate 2 Oxygen Delivery Method Room Air Weight: 68.1 kg Body Mass Index (BMI) 25.8 Orthostatic Vital Signs Start: 10/05/17 09:14 Freq: q24h Status: Active Protocol: Activity Type Activity Date Activity User E-Sign Co-Sign Detail Recorded Client Recorded Date Recorded By Document 10/05/17 09:14 [facility] [id number] 10/05/17 09:26 [facility] 10/05/17 09:14 Orthostatic Vitals Standing -Blood Pressure (90/60-120/80) 159/75 H -Extremity Use Right Arm -Pulse Rate (60-100) 75 Sitting -Blood Pressure (90/60-120/80) 162/75 H -Extremity Use Right Arm -Pulse Rate (60-100) 72 Lying -Blood Pressure (90/60-120/80) 163/70 H -Extremity Use Right Arm -Pulse Rate (60-100) 66 Intake and Output for Last 24 Hours 10/03/17 10/04/17 10/05/17 23:59 23:59 23:59 Intake Total 2836 / 2836 3603 / 3603 1830 / 1830 Output Total 1900 / 1900 1200 / 1200 Balance 936 / 936 2403 / 2403 1830 / 1830 Microbiology Past 72 Hours 10/03/17 12:35 Enteric Bacteriology - Final Stool 10/03/17 12:35 C. difficile DNA Amplification - Final Stool 10/03/17 09:09 Respiratory Panel (PCR) - Final Mucosa - Nasopharyngeal Influenza A (Subtype H3) Laboratory Tests Past 24 Hrs 10/05/17 10/05/17 10/05/17 09:05 09:05 09:05 WBC 4.8 RBC 3.83 L Hgb 10.5 L Hct 30.6 L MCV 79.9 L MCH 27.4 MCHC 34.3 RDW 13.4 RDW Differential 38.1 Plt Count 177 MPV 9.7 Immature Gran % (Auto) 0.200 Neut % (Auto) 54.4 Lymph % (Auto) 31.2 [place] % (Auto) 12.6 H Eos % (Auto) 0.6 Baso % (Auto) 1.0 Absolute Neuts (auto) 2.6 Absolute Lymphs (auto) 1.49 Total Counted Not Reportable Sodium 134 L Potassium 3.4 L Chloride 101 Carbon Dioxide 25.0 Anion Gap 8 BUN 5 L Creatinine 0.57 Estim Creat Clear Calc 40.21 Est GFR (MDRD) Af Amer 132 Est GFR (MDRD) Non-Af 109 BUN/Creatinine Ratio 8.7 L Glucose 106 Calcium 7.6 L Iron 20 L TIBC 299 Iron Saturation 6.7 L Ferritin 54 Assessment/Plan Active and Suspected Problems Shingles outbreak (Acute) Hyponatremia (Acute) Hypochloremia (Acute) Hypokalemia (Acute) Syncope and collapse (Acute) 1-hyponatremia with hypovolemia. Urine osmolality at presentation was low at 225 which rules out diagnosis of SIADH Hyponatremia is most probably related to poor solute intake from nausea vomiting in addition to sodium loss in the GI tract from diarrhea and renal loss of sodium from diuretic(thiazide). Initially there was overcorrection of sodium. Sodium increased to 126 from 118 in 8 hours. Sodium corrected by 16 in 248 hours which seems appropriate for now. No sign of symptoms of pontine osmotic demyelinolysis. patient is awake alert oriented without focal deficits or seizure-like activity Avoid hydrochlorothiazide for blood pressure control for now. If blood pressure medications upgrade is needed, please add Norvasc 5 mg p.o. daily. If diuretic is needed for fluid overload, please use Lasix instead of hydrochlorothiazide. 2-hypokalemia most probably from GI loss from diarrhea and renal loss from diuretic. Potassium improved with the replacement and with diarrhea improvement and stopping diuretic. Please avoid hydrochlorothiazide for now. If Lasix is needed, please start potassium chloride 10 mEq daily 3-hypertension: Blood pressure is above the target now. Systolic blood pressure consistently more than 140. Please add Norvasc 5 mg p.o. daily. Avoid hydrochlorothiazide. Okay with Lasix as needed 4-nausea vomiting and diarrhea. Improved Thank you for the consult. We will continue to follow. please do not hesitate to call me with any question or concern at my cell [phone]. Plan of care was discussed with the patient and her and with Dr. Rc Melo MD
--- NOTE | 2017-10-05 14:23 | CON.PCM_ITS ---
Problem List (1) Hyponatremia Status: Acute (2) Hypochloremia Status: Acute (3) Hypokalemia Status: Acute Consultation - Renal PCP/ Referring MD: Requesting physician: [] Primary care physician: Sreekanth Cortez - History of Present Illness History of Present Illness: The patient is a 77 year old F past medical history of hypertension and hypothyroidism presented to the hospital in October 03 after she was found unresponsive by her . called EMS and patient was brought to [facility] . Before that patient she had been complaining of nausea vomiting with diarrhea for a week. He was found to have severe hypokalemia with hyponatremia and dehydration. Patient was taken hydrochlorothiazide for blood pressure management Initially patient presented with the sodium 118 and potassium 2.6. Patient was given fluid normal saline. His sodium improved and 8 hours to 126. Sodium improved by 16mEq/dL in 48 hours. Also her potassium was corrected with replacement. Potassium today 3.4. Patient asymptomatic today except for little shortness of breath and some leg edema. Patient states she is eating well. No diarrhea no nausea no vomiting. Hydrochlorothiazide was stopped. Blood pressure started to rise with a systolic blood pressure more than 140. No NSAID use. Patient is not in SSRIs or any medication that increase excretion of vasopressin or increase its effect. ROS: Systems review is negative except what mentioned in the HPI - Allergies Allergies: Allergies No Known Allergies Allergy (Verified 10/03/17 05:55) - Current Medications Current Medications: Current Medications Acetaminophen (Tylenol) 650 mg PO Q6H PRN PRN PRN Reason: Fever, headache, pain Albuterol Sulfate (Ventolin Aerosols) 2.5 mg INHALATION Q4H PRN PRN PRN Reason: SOB &/OR WHEEZING Last Admin: 10/05/17 01:46 Dose: 2.5 mg Benzonatate (Tessalon Perle) 100 mg PO TID PRN PRN PRN Reason: cough Last Admin: 10/04/17 21:38 Dose: 100 mg Enoxaparin Sodium (Lovenox) 40 mg SC DAILY@1000 [facility] Last Admin: 10/05/17 09:13 Dose: 40 mg Guaifenesin (Robitussin Dm) 10 ml PO Q4H PRN PRN PRN Reason: COUGH Last Admin: 10/04/17 20:14 Dose: 10 ml Levothyroxine Sodium (Synthroid) 100 mcg PO BREAKFAST [facility] Last Admin: 10/05/17 09:10 Dose: 100 mcg Losartan Potassium (Cozaar) 50 mg PO DAILY [facility] Last Admin: 10/05/17 09:11 Dose: 50 mg Magnesium Hydroxide (Milk Of Magnesia) 30 ml PO DAILY PRN PRN PRN Reason: Constipation Metoprolol Tartrate (Lopressor (Beta Cris)) 25 mg PO BID [facility] Last Admin: 10/05/17 09:11 Dose: 25 mg Nutritional Formula (Lactose Free) (Ensure Enlive) 120 ml PO 4X/DAY [facility] Last Admin: 10/05/17 09:13 Dose: 120 ml Sodium Chloride () 5 - 30 ml IV UD PRN PRN Reason: SALINE FLUSH - Past Medical History Past Medical History (Chronic Problems): Chronic Problems Hypothyroidism (Chronic) Hypertension (Chronic) - Past Surgical History Surgical History: - - Surgery for carpal tunnel syndrome. - Social History Smoking Status: Never smoker Alcohol: None Drugs: None - Family History Maternal History Items: No pertinent history Paternal History Items: No pertinent history Patient Problems: Active and Suspected Problems Shingles outbreak (Acute) Hyponatremia (Acute) Hypochloremia (Acute) Hypokalemia (Acute) Syncope and collapse (Acute) - Physical Exam General: Alert, Oriented x3 HEENT: Atraumatic Oral: Moist Mucosa Neck: Supple, No JVD Cardiovascular: Regular rate, Regular Rhythm, Normal S1, - - Lungs basilar crackles Abdomen: Bowel Sounds Present, Soft Extremities: No clubbing, No cyanosis, - - Edema of lower extremities Musculoskeletal: No Tenderness to Palpation of Joints or Extremities Lymphatic: No Cervical, Supraclavicular, or Inguinal Adenopathy Neurological: Cranial nerves II-XII grossly intact, Neuro grossly intact Psych/Mental Status: Normal Affect Vital Signs Temp Pulse Resp BP Pulse Ox 97.7 F L 91 18 163/70 H 94 10/05/17 09:02 10/05/17 11:06 10/05/17 09:02 10/05/17 09:14 10/05/17 10:48 Oxygen Flow Rate 2 Oxygen Delivery Method Room Air Weight: 68.1 kg Body Mass Index (BMI) 25.8 Orthostatic Vital Signs Start: 10/05/17 09:14 Freq: q24h Status: Active Protocol: Activity Type Activity Date Activity User E-Sign Co-Sign Detail Recorded Client Recorded Date Recorded By Document 10/05/17 09:14 [facility] [id number] 10/05/17 09:26 [facility] 10/05/17 09:14 Orthostatic Vitals Standing -Blood Pressure (90/60-120/80) 159/75 H -Extremity Use Right Arm -Pulse Rate (60-100) 75 Sitting -Blood Pressure (90/60-120/80) 162/75 H -Extremity Use Right Arm -Pulse Rate (60-100) 72 Lying -Blood Pressure (90/60-120/80) 163/70 H -Extremity Use Right Arm -Pulse Rate (60-100) 66 Intake and Output for Last 24 Hours 10/03/17 10/04/17 10/05/17 23:59 23:59 23:59 Intake Total 2836 / 2836 3603 / 3603 1830 / 1830 Output Total 1900 / 1900 1200 / 1200 Balance 936 / 936 2403 / 2403 1830 / 1830 Microbiology Past 72 Hours 10/03/17 12:35 Enteric Bacteriology - Final Stool 10/03/17 12:35 C. difficile DNA Amplification - Final Stool 10/03/17 09:09 Respiratory Panel (PCR) - Final Mucosa - Nasopharyngeal Influenza A (Subtype H3) Laboratory Tests Past 24 Hrs 10/05/17 10/05/17 10/05/17 09:05 09:05 09:05 WBC 4.8 RBC 3.83 L Hgb 10.5 L Hct 30.6 L MCV 79.9 L MCH 27.4 MCHC 34.3 RDW 13.4 RDW Differential 38.1 Plt Count 177 MPV 9.7 Immature Gran % (Auto) 0.200 Neut % (Auto) 54.4 Lymph % (Auto) 31.2 [place] % (Auto) 12.6 H Eos % (Auto) 0.6 Baso % (Auto) 1.0 Absolute Neuts (auto) 2.6 Absolute Lymphs (auto) 1.49 Total Counted Not Reportable Sodium 134 L Potassium 3.4 L Chloride 101 Carbon Dioxide 25.0 Anion Gap 8 BUN 5 L Creatinine 0.57 Estim Creat Clear Calc 40.21 Est GFR (MDRD) Af Amer 132 Est GFR (MDRD) Non-Af 109 BUN/Creatinine Ratio 8.7 L Glucose 106 Calcium 7.6 L Iron 20 L TIBC 299 Iron Saturation 6.7 L Ferritin 54 Assessment/Plan Active and Suspected Problems Shingles outbreak (Acute) Hyponatremia (Acute) Hypochloremia (Acute) Hypokalemia (Acute) Syncope and collapse (Acute) 1-hyponatremia with hypovolemia. Urine osmolality at presentation was low at 225 which rules out diagnosis of SIADH Hyponatremia is most probably related to poor solute intake from nausea vomiting in addition to sodium loss in the GI tract from diarrhea and renal loss of sodium from diuretic(thiazide). Initially there was overcorrection of sodium. Sodium increased to 126 from 118 in 8 hours. Sodium corrected by 16 in 248 hours which seems appropriate for now. No sign of symptoms of pontine osmotic demyelinolysis. patient is awake alert oriented without focal deficits or seizure-like activity Avoid hydrochlorothiazide for blood pressure control for now. If blood pressure medications upgrade is needed, please add Norvasc 5 mg p.o. daily. If diuretic is needed for fluid overload, please use Lasix instead of hydrochlorothiazide. 2-hypokalemia most probably from GI loss from diarrhea and renal loss from diuretic. Potassium improved with the replacement and with diarrhea improvement and stopping diuretic. Please avoid hydrochlorothiazide for now. If Lasix is needed, please start potassium chloride 10 mEq daily 3-hypertension: Blood pressure is above the target now. Systolic blood pressure consistently more than 140. Please add Norvasc 5 mg p.o. daily. Avoid hydrochlorothiazide. Okay with Lasix as needed 4-nausea vomiting and diarrhea. Improved Thank you for the consult. We will continue to follow. please do not hesitate to call me with any question or concern at my cell [phone]. Plan of care was discussed with the patient and her and with Dr. Rc Melo MD
[2017-10-05 15:25] LABS: Urine Chloride 111 mmol/L (Not Establ.); Urine Sodium 91 mmol/L (Not Establ.)
[2017-10-05] MEDS: Benzonatate 100 MG Capsule PO (21:32)
[2017-10-06] VITALS (7 sets, daily range): BP systolic 141–159; BP diastolic 70–80; PULSE 68–77; RESP 18–20; TEMP 36.7–36.9; O2SAT 94–96
[2017-10-06 06:05] LABS: Absolute Lymphocyte Count 1.82 X10^3/ul (0.83-4.51); Basophil# 0.03 X10^3/uL; Basophil% 0.5 % (0-1); Eosinophil# 0.12 X10^3/uL; Eosinophils% 2.1 % (0-5); Hematocrit 31.6 % (37-47); Hemoglobin 10.7 g/dl (12.0-15.0); Lymphocyte # 1.82 X10^3/ul (4.0); Lymphocyte % 31.9 % (19-41); Mean Corp Hgb Conc 33.9 g/gl (32-36); Mean Corpuscular Hgb 27.1 pg (27.0-32.0); Monocyte% 12.3 % (0-10); Neutrophil # 3.04 X10^3/uL (2.7-7.7); Neutrophil % 53.2 % (47-70); Platelet Count 202 K/mm3 (150-450); RBC Distribution Width CV 13.6 % (11.6-14.6); RBC Distribution Width SD 38.7 fl (35.1-43.9); Red Blood Count 3.95 M/mm3 (4.2-5.4); White Blood Count 5.7 K/mm3 (4.4-11.0)
[2017-10-06 06:06] LABS: Differential Indicated SCAN CRITERIA MET; POSITIVE COUNT NO; POSITIVE DIFFERENTIAL NO; POSITIVE MORPHOLOGY YES
[2017-10-06 06:13] LABS: Anion Gap 7 (5-15); BUN 8 mg/dL (7-18); BUN/Creat Ratio 12.6 RATIO (10-20); Chloride 97 mmol/L (98-107); Creatinine, Serum 0.63 mg/dL (0.55-1.02); EST Glomerular Filtration Rate 97 mL/min (>60); Est Glom Filt Rate - Afr Amer 117 mL/min (>60); Estimated Creatinine Clearance 40.21 ml/min; Glucose 89 mg/dL (74-106); Potassium 3.9 mmol/L (3.5-5.1); Sodium Level 131 mmol/L (136-145)
[2017-10-06] MEDS: Ferrous Sulfate 325 MG Tablet PO (08:29)
[2017-10-06] MEDS: Levothyroxine 100 MCG Tablet PO (08:29)
[2017-10-06] MEDS: amLODIPine 5 MG Tablet PO (09:22)
[2017-10-06] MEDS: Enoxaparin 40 MG/0.4 ML Syringe SC (09:23)
[2017-10-06] MEDS: Losartan Potassium 50 MG Tablet PO (09:23)
[2017-10-06] MEDS: Metoprolol Tartrate 25 MG Tablet PO (09:23)
--- NOTE | 2017-10-06 11:18 | PCM.DC ---
- Discharge Diagnoses Current Active Problems: Current Active and Chronic Problems Shingles outbreak (Acute) Hyponatremia (Acute) Hypochloremia (Acute) Hypokalemia (Acute) Syncope and collapse (Acute) Hypothyroidism (Chronic) Hypertension (Chronic) You will use the following diet at home:: Cardiac, Other - fluid restricted to 1200 cc / day Your food should be the consistency of: Regular Your liquids should be the consistency of: Regular/Thin Discharge Activity: Return to Normal Activity Allergies/Adverse Reactions: Allergies No Known Allergies Allergy (Verified 10/03/17 05:55) Medications to take at Discharge Levothyroxine Sodium 100 mcg PO BREAKFAST 08/21/16 Metoprolol Tartrate [Lopressor (beta fidel)] 25 mg PO BID 08/21/16 Losartan Potassium 50 mg PO DAILY 10/03/17 Amlodipine [Norvasc] 5 mg PO DAILY #30 tab 10/06/17 Ferrous Sulfate 325 mg PO DAILY@0800 #30 tab 10/06/17 The following prescriptions were given: Amlodipine [Norvasc] 5 mg PO DAILY #30 tab Ferrous Sulfate 325 mg PO DAILY@0800 #30 tab Primary Care Physician: Sreekanth Cortez DO [Primary Care Provider] - Please follow up with your Primary Care Physician in: 2 weeks Please Follow Up With: Filipe Melo MD When: 2 weeks Proposed Discharge Date: 10/06/17
--- NOTE | 2017-10-06 11:29 | PCM.PN.REN ---
Patient Problems: Active and Suspected Problems Shingles outbreak (Acute) Hyponatremia (Acute) Hypochloremia (Acute) Hypokalemia (Acute) Syncope and collapse (Acute) Subjective: Patient is doing well. Appetite is improving. No nausea No vomiting. Patient said she is drinking plenty of water No SOB - Physical Exam General: Alert, Oriented x3 HEENT: Atraumatic Oral: Moist Mucosa Neck: Supple, No JVD Lungs: - - decrease BS over both lungs bases with some crackles Cardiovascular: Regular rate, Regular Rhythm, Normal S1, Normal S2 Abdomen: Bowel Sounds Present, Soft, Non Tender Extremities: No clubbing, No cyanosis, - - trace edema Skin: No rashes Lymphatic: No Cervical, Supraclavicular, or Inguinal Adenopathy Neurological: Cranial nerves II-XII grossly intact, Neuro grossly intact Psych/Mental Status: Normal Affect Vital Signs Temp Pulse Resp BP Pulse Ox 98.4 F 77 18 159/80 H 96 10/06/17 08:22 10/06/17 10:52 10/06/17 08:22 10/06/17 08:22 10/06/17 09:41 Oxygen Flow Rate [AMBULATING 0 on Room Air] Oxygen Flow Rate 2 Oxygen Delivery Method Room Air Weight: 66.4 kg Body Mass Index (BMI) 25.8 Orthostatic Vital Signs Start: 10/05/17 09:14 Freq: q24h Status: Active Protocol: Activity Type Activity Date Activity User E-Sign Co-Sign Detail Recorded Client Recorded Date Recorded By Document 10/05/17 09:14 [facility] [id number] 10/05/17 09:26 [facility] 10/05/17 09:14 Orthostatic Vitals Standing -Blood Pressure (90/60-120/80) 159/75 H -Extremity Use Right Arm -Pulse Rate (60-100) 75 Sitting -Blood Pressure (90/60-120/80) 162/75 H -Extremity Use Right Arm -Pulse Rate (60-100) 72 Lying -Blood Pressure (90/60-120/80) 163/70 H -Extremity Use Right Arm -Pulse Rate (60-100) 66 Intake and Output for Last 24 Hours 10/04/17 10/05/17 10/06/17 23:59 23:59 23:59 Intake Total 3603 / 3603 2190 / 2190 240 / 240 Output Total 1200 / 1200 200 / 200 Balance 2403 / 2403 1989 240 / 240 Microbiology Past 72 Hours 10/03/17 12:35 Enteric Bacteriology - Final Stool 10/03/17 12:35 C. difficile DNA Amplification - Final Stool 10/03/17 09:09 Respiratory Panel (PCR) - Final Mucosa - Nasopharyngeal Influenza A (Subtype H3) Laboratory Tests Past 24 Hrs 10/05/17 10/05/17 10/05/17 09:05 14:50 14:50 WBC RBC Hgb Hct MCV MCH MCHC RDW RDW Differential Plt Count MPV Immature Gran % (Auto) Neut % (Auto) Lymph % (Auto) [place] % (Auto) Eos % (Auto) Baso % (Auto) Absolute Neuts (auto) Absolute Lymphs (auto) Total Counted Sodium Potassium Chloride Carbon Dioxide Anion Gap BUN Creatinine Estim Creat Clear Calc Est GFR (MDRD) Af Amer Est GFR (MDRD) Non-Af BUN/Creatinine Ratio Glucose Calcium Iron 20 L TIBC 299 Iron Saturation 6.7 L Ferritin 54 Urine Osmolality Ur Random Sodium 91 Urine Creatinine 27.80 Urine Potassium 24.0 Urine Chloride 111 10/06/17 10/06/17 10/06/17 05:26 05:26 11:15 WBC 5.7 RBC 3.95 L Hgb 10.7 L Hct 31.6 L MCV 80.0 L MCH 27.1 MCHC 33.9 RDW 13.6 RDW Differential 38.7 Plt Count 202 MPV 10.0 Immature Gran % (Auto) 0.000 Neut % (Auto) 53.2 Lymph % (Auto) 31.9 [place] % (Auto) 12.3 H Eos % (Auto) 2.1 Baso % (Auto) 0.5 Absolute Neuts (auto) 3.0 Absolute Lymphs (auto) 1.82 Total Counted Not Reportable Sodium 131 L Potassium 3.9 Chloride 97 L Carbon Dioxide 27.0 Anion Gap 7 BUN 8 Creatinine 0.63 Estim Creat Clear Calc 40.21 Est GFR (MDRD) Af Amer 117 Est GFR (MDRD) Non-Af 97 BUN/Creatinine Ratio 12.6 Glucose 89 Calcium 8.0 L Iron TIBC Iron Saturation Ferritin Urine Osmolality Pending Ur Random Sodium Urine Creatinine Urine Potassium Urine Chloride 10/06/17 10/06/17 10/06/17 11:15 11:15 11:15 WBC RBC Hgb Hct MCV MCH MCHC RDW RDW Differential Plt Count MPV Immature Gran % (Auto) Neut % (Auto) Lymph % (Auto) [place] % (Auto) Eos % (Auto) Baso % (Auto) Absolute Neuts (auto) Absolute Lymphs (auto) Total Counted Sodium Potassium Chloride Carbon Dioxide Anion Gap BUN Creatinine Estim Creat Clear Calc Est GFR (MDRD) Af Amer Est GFR (MDRD) Non-Af BUN/Creatinine Ratio Glucose Calcium Iron TIBC Iron Saturation Ferritin Urine Osmolality Ur Random Sodium Pending Urine Creatinine Urine Potassium Pending Urine Chloride Pending Assessment/Plan Active and Suspected Problems Shingles outbreak (Acute) Hyponatremia (Acute) Hypochloremia (Acute) Hypokalemia (Acute) Syncope and collapse (Acute) 1-hyponatremia with hypovolemia. Urine osmolality at presentation was low at 225 with low urine Cl Hyponatremia is most probably related to poor solute intake from nausea vomiting in addition to sodium loss in the GI tract from diarrhea and renal loss of sodium from diuretic(thiazide). Na corrected well with IVF . Na corrected from 118>134 in 48 hours Na dropped slightly in the last 24 hours Na 134>131. 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 Asked the patient to limit fluid intake to 1200 cc in 24 hours. Okay to discharge patient home with fluid restriction 1200cc in 24 hours. Please repeat BMP in one week. I will arrange for office follow up in 2-3 weeks after discharge 2-hypokalemia most probably from GI loss from diarrhea and renal loss from diuretic. Potassium corrected to normal level with the replacement,diarrhea improvement and stopping diuretic. Please avoid hydrochlorothiazide for now. 3-hypertension: Blood pressure is above the target now. Systolic blood pressure consistently more than 140. Norvasc 5 mg p.o. daily was added Avoid hydrochlorothiazide. Okay with Lasix as needed 4-nausea vomiting and diarrhea. resolved Thank you for the consult. We will continue to follow. please do not hesitate to call me with any question or concern at my cell [phone]. Plan of care was discussed with the patient and her and with Dr. Rc Melo MD
[2017-10-06 11:35] LABS: Urine Chloride 60 mmol/L (Not Establ.)
--- NOTE | 2017-10-06 11:35 | PN.RENAL_ITS ---
Patient Problems: Active and Suspected Problems Shingles outbreak (Acute) Hyponatremia (Acute) Hypochloremia (Acute) Hypokalemia (Acute) Syncope and collapse (Acute) Subjective: Patient is doing well. Appetite is improving. No nausea No vomiting. Patient said she is drinking plenty of water No SOB - Physical Exam General: Alert, Oriented x3 HEENT: Atraumatic Oral: Moist Mucosa Neck: Supple, No JVD Lungs: - - decrease BS over both lungs bases with some crackles Cardiovascular: Regular rate, Regular Rhythm, Normal S1, Normal S2 Abdomen: Bowel Sounds Present, Soft, Non Tender Extremities: No clubbing, No cyanosis, - - trace edema Skin: No rashes Lymphatic: No Cervical, Supraclavicular, or Inguinal Adenopathy Neurological: Cranial nerves II-XII grossly intact, Neuro grossly intact Psych/Mental Status: Normal Affect Vital Signs Temp Pulse Resp BP Pulse Ox 98.4 F 77 18 159/80 H 96 10/06/17 08:22 10/06/17 10:52 10/06/17 08:22 10/06/17 08:22 10/06/17 09:41 Oxygen Flow Rate [AMBULATING 0 on Room Air] Oxygen Flow Rate 2 Oxygen Delivery Method Room Air Weight: 66.4 kg Body Mass Index (BMI) 25.8 Orthostatic Vital Signs Start: 10/05/17 09:14 Freq: q24h Status: Active Protocol: Activity Type Activity Date Activity User E-Sign Co-Sign Detail Recorded Client Recorded Date Recorded By Document 10/05/17 09:14 [facility] [id number] 10/05/17 09:26 [facility] 10/05/17 09:14 Orthostatic Vitals Standing -Blood Pressure (90/60-120/80) 159/75 H -Extremity Use Right Arm -Pulse Rate (60-100) 75 Sitting -Blood Pressure (90/60-120/80) 162/75 H -Extremity Use Right Arm -Pulse Rate (60-100) 72 Lying -Blood Pressure (90/60-120/80) 163/70 H -Extremity Use Right Arm -Pulse Rate (60-100) 66 Intake and Output for Last 24 Hours 10/04/17 10/05/17 10/06/17 23:59 23:59 23:59 Intake Total 3603 / 3603 2190 / 2190 240 / 240 Output Total 1200 / 1200 200 / 200 Balance 2403 / 2403 1989 240 / 240 Microbiology Past 72 Hours 10/03/17 12:35 Enteric Bacteriology - Final Stool 10/03/17 12:35 C. difficile DNA Amplification - Final Stool 10/03/17 09:09 Respiratory Panel (PCR) - Final Mucosa - Nasopharyngeal Influenza A (Subtype H3) Laboratory Tests Past 24 Hrs 10/05/17 10/05/17 10/05/17 09:05 14:50 14:50 WBC RBC Hgb Hct MCV MCH MCHC RDW RDW Differential Plt Count MPV Immature Gran % (Auto) Neut % (Auto) Lymph % (Auto) [place] % (Auto) Eos % (Auto) Baso % (Auto) Absolute Neuts (auto) Absolute Lymphs (auto) Total Counted Sodium Potassium Chloride Carbon Dioxide Anion Gap BUN Creatinine Estim Creat Clear Calc Est GFR (MDRD) Af Amer Est GFR (MDRD) Non-Af BUN/Creatinine Ratio Glucose Calcium Iron 20 L TIBC 299 Iron Saturation 6.7 L Ferritin 54 Urine Osmolality Ur Random Sodium 91 Urine Creatinine 27.80 Urine Potassium 24.0 Urine Chloride 111 10/06/17 10/06/17 10/06/17 05:26 05:26 11:15 WBC 5.7 RBC 3.95 L Hgb 10.7 L Hct 31.6 L MCV 80.0 L MCH 27.1 MCHC 33.9 RDW 13.6 RDW Differential 38.7 Plt Count 202 MPV 10.0 Immature Gran % (Auto) 0.000 Neut % (Auto) 53.2 Lymph % (Auto) 31.9 [place] % (Auto) 12.3 H Eos % (Auto) 2.1 Baso % (Auto) 0.5 Absolute Neuts (auto) 3.0 Absolute Lymphs (auto) 1.82 Total Counted Not Reportable Sodium 131 L Potassium 3.9 Chloride 97 L Carbon Dioxide 27.0 Anion Gap 7 BUN 8 Creatinine 0.63 Estim Creat Clear Calc 40.21 Est GFR (MDRD) Af Amer 117 Est GFR (MDRD) Non-Af 97 BUN/Creatinine Ratio 12.6 Glucose 89 Calcium 8.0 L Iron TIBC Iron Saturation Ferritin Urine Osmolality Pending Ur Random Sodium Urine Creatinine Urine Potassium Urine Chloride 10/06/17 10/06/17 10/06/17 11:15 11:15 11:15 WBC RBC Hgb Hct MCV MCH MCHC RDW RDW Differential Plt Count MPV Immature Gran % (Auto) Neut % (Auto) Lymph % (Auto) [place] % (Auto) Eos % (Auto) Baso % (Auto) Absolute Neuts (auto) Absolute Lymphs (auto) Total Counted Sodium Potassium Chloride Carbon Dioxide Anion Gap BUN Creatinine Estim Creat Clear Calc Est GFR (MDRD) Af Amer Est GFR (MDRD) Non-Af BUN/Creatinine Ratio Glucose Calcium Iron TIBC Iron Saturation Ferritin Urine Osmolality Ur Random Sodium Pending Urine Creatinine Urine Potassium Pending Urine Chloride Pending Assessment/Plan Active and Suspected Problems Shingles outbreak (Acute) Hyponatremia (Acute) Hypochloremia (Acute) Hypokalemia (Acute) Syncope and collapse (Acute) 1-hyponatremia with hypovolemia. Urine osmolality at presentation was low at 225 with low urine Cl Hyponatremia is most probably related to poor solute intake from nausea vomiting in addition to sodium loss in the GI tract from diarrhea and renal loss of sodium from diuretic(thiazide). Na corrected well with IVF . Na corrected from 118>134 in 48 hours Na dropped slightly in the last 24 hours Na 134>131. 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 Asked the patient to limit fluid intake to 1200 cc in 24 hours. Okay to discharge patient home with fluid restriction 1200cc in 24 hours. Please repeat BMP in one week. I will arrange for office follow up in 2-3 weeks after discharge 2-hypokalemia most probably from GI loss from diarrhea and renal loss from diuretic. Potassium corrected to normal level with the replacement,diarrhea improvement and stopping diuretic. Please avoid hydrochlorothiazide for now. 3-hypertension: Blood pressure is above the target now. Systolic blood pressure consistently more than 140. Norvasc 5 mg p.o. daily was added Avoid hydrochlorothiazide. Okay with Lasix as needed 4-nausea vomiting and diarrhea. resolved Thank you for the consult. We will continue to follow. please do not hesitate to call me with any question or concern at my cell [phone]. Plan of care was discussed with the patient and her and with Dr. Rc Melo MD
--- NOTE | 2017-10-06 11:40 | PCM.PROGNOTE ---
Patient Problems: Active and Suspected Problems Shingles outbreak (Acute) Hyponatremia (Acute) Hypochloremia (Acute) Hypokalemia (Acute) Syncope and collapse (Acute) Subjective: The patient was seen and examined. She is sitting up in the chair in no acute distress. Nursing staff reports no acute events overnight, patient is ambulating without difficulty. Reports she still has a cough that is occasionally productive of white sputum. Has some mild dyspnea on exertion but has improved. She remains on room air and is saturating appropriately, she is using her incentive spirometer frequently and obtaining approximately 1000 mL. Remains afebrile and hemodynamically stable. States she will likely go home later today. Objective: Clinical Impression(s) from Imaging Studies Chest X-Ray 10/03/17 06:48 IMPRESSION: Small left pleural effusion with left lower lobe subsegmental atelectasis. If there is a high clinical suspicion of a left lower lobe pneumonia consider clarification with CT. Electronically Signed: Cristian Cruz MD at 7:09 EST , Service support , Chest X-Ray 10/05/17 12:27 IMPRESSION: Mild increased markings at the lung base are slightly worse on the left side with blunting of left costophrenic angle. This is essentially unchanged. Electronically Signed: Albin Powell MD at 14:15 EST Tel [phone], Service support , - Physical Exam General: Alert, Oriented x3, Cooperative, No apparent distress, Well developed, Well nourished, - - No conversational dyspnea HEENT: Atraumatic Oral: Moist Mucosa, No Gingival or Mucosal Lesions/ Ulcerations Neck: Supple, No Nodes, Trachea Midline Lungs: - - Diminished with bibasilar rales, no rhonchi or wheezing. Symmetrical expansion, no dullness to percussion. Cardiovascular: Regular rate, Regular Rhythm, Normal S1, Normal S2, No murmurs Abdomen: Bowel Sounds Present, Soft, Non Tender, Non-Distended Extremities: No clubbing, No cyanosis, Edema - Trace lower extremity Skin: No rashes, No breakdown Musculoskeletal: No Tenderness to Palpation of Joints or Extremities Lymphatic: No Cervical, Supraclavicular, or Inguinal Adenopathy Neurological: Cranial nerves II-XII grossly intact, Neuro grossly intact, Motor Exam 5/5 strength throughout Psych/Mental Status: Alert and oriented to time, place, person, mood and affect Vital Signs Temp Pulse Resp BP Pulse Ox 98.4 F 77 18 159/80 H 96 10/06/17 08:22 10/06/17 10:52 10/06/17 08:22 10/06/17 08:22 10/06/17 09:41 Oxygen Flow Rate [AMBULATING 0 on Room Air] Oxygen Flow Rate 2 Oxygen Delivery Method Room Air Weight: 146 lb 6.191 oz Body Mass Index (BMI) 25.8 Orthostatic Vital Signs Start: 10/05/17 09:14 Freq: q24h Status: Active Protocol: Activity Type Activity Date Activity User E-Sign Co-Sign Detail Recorded Client Recorded Date Recorded By Document 10/05/17 09:14 [facility] [id number] 10/05/17 09:26 [facility] 10/05/17 09:14 Orthostatic Vitals Standing -Blood Pressure (90/60-120/80) 159/75 H -Extremity Use Right Arm -Pulse Rate (60-100) 75 Sitting -Blood Pressure (90/60-120/80) 162/75 H -Extremity Use Right Arm -Pulse Rate (60-100) 72 Lying -Blood Pressure (90/60-120/80) 163/70 H -Extremity Use Right Arm -Pulse Rate (60-100) 66 Intake and Output for Last 24 Hours 10/04/17 10/05/17 10/06/17 23:59 23:59 23:59 Intake Total 3603 / 3603 2190 / 2190 240 / 240 Output Total 1200 / 1200 200 / 200 Balance 2403 / 2403 1989 / 1989 240 / 240 Microbiology Past 72 Hours 10/03/17 12:35 Enteric Bacteriology - Final Stool 10/03/17 12:35 C. difficile DNA Amplification - Final Stool 10/03/17 09:09 Respiratory Panel (PCR) - Final Mucosa - Nasopharyngeal Influenza A (Subtype H3) Laboratory Tests Past 24 Hrs 10/05/17 10/05/17 10/05/17 09:05 14:50 14:50 WBC RBC Hgb Hct MCV MCH MCHC RDW RDW Differential Plt Count MPV Immature Gran % (Auto) Neut % (Auto) Lymph % (Auto) [place] % (Auto) Eos % (Auto) Baso % (Auto) Absolute Neuts (auto) Absolute Lymphs (auto) Total Counted Sodium Potassium Chloride Carbon Dioxide Anion Gap BUN Creatinine Estim Creat Clear Calc Est GFR (MDRD) Af Amer Est GFR (MDRD) Non-Af BUN/Creatinine Ratio Glucose Calcium Iron 20 L TIBC 299 Iron Saturation 6.7 L Ferritin 54 Urine Osmolality Ur Random Sodium 91 Urine Creatinine 27.80 Urine Potassium 24.0 Urine Chloride 111 10/06/17 10/06/17 10/06/17 05:26 05:26 11:15 WBC 5.7 RBC 3.95 L Hgb 10.7 L Hct 31.6 L MCV 80.0 L MCH 27.1 MCHC 33.9 RDW 13.6 RDW Differential 38.7 Plt Count 202 MPV 10.0 Immature Gran % (Auto) 0.000 Neut % (Auto) 53.2 Lymph % (Auto) 31.9 [place] % (Auto) 12.3 H Eos % (Auto) 2.1 Baso % (Auto) 0.5 Absolute Neuts (auto) 3.0 Absolute Lymphs (auto) 1.82 Total Counted Not Reportable Sodium 131 L Potassium 3.9 Chloride 97 L Carbon Dioxide 27.0 Anion Gap 7 BUN 8 Creatinine 0.63 Estim Creat Clear Calc 40.21 Est GFR (MDRD) Af Amer 117 Est GFR (MDRD) Non-Af 97 BUN/Creatinine Ratio 12.6 Glucose 89 Calcium 8.0 L Iron TIBC Iron Saturation Ferritin Urine Osmolality Pending Ur Random Sodium Urine Creatinine Urine Potassium Urine Chloride 10/06/17 10/06/17 10/06/17 11:15 11:15 11:15 WBC RBC Hgb Hct MCV MCH MCHC RDW RDW Differential Plt Count MPV Immature Gran % (Auto) Neut % (Auto) Lymph % (Auto) [place] % (Auto) Eos % (Auto) Baso % (Auto) Absolute Neuts (auto) Absolute Lymphs (auto) Total Counted Sodium Potassium Chloride Carbon Dioxide Anion Gap BUN Creatinine Estim Creat Clear Calc Est GFR (MDRD) Af Amer Est GFR (MDRD) Non-Af BUN/Creatinine Ratio Glucose Calcium Iron TIBC Iron Saturation Ferritin Urine Osmolality Ur Random Sodium Pending Urine Creatinine Urine Potassium 11.0 Urine Chloride 60 Assessment/Plan Active and Suspected Problems Shingles outbreak (Acute) Hyponatremia (Acute) Hypochloremia (Acute) Hypokalemia (Acute) Syncope and collapse (Acute) RECOMMENDATIONS: 1. Additional potassium repletion as indicated 2. Contact precautions for shingles, droplet precautions for influenza 3. Encourage incentive spirometer use 4. Increase activity, ambulate 5. Continue Lovenox for DVT prophylaxis 6. 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 IMPRESSIONS: 1. Syncope Clinical suspicion for volume depletion, but patient was not orthostatic in the emergency room. The patient is improving clinically with IV fluid hydration. No further syncopal episodes. We will continue to monitor accordingly. 2. Influenza A infection Patient received IV fluid resuscitation. She does have some bibasilar rales and her IV fluids were discontinued. She is using her incentive spirometer appropriately. Patient has remained afebrile. There is no clinical indication for the use of Tamiflu, given the time duration that has elapsed since symptoms initially began. 3. Hypovolemic hyponatremia/hypokalemia Patient with 1 week history of nausea, vomiting and diarrhea. The patient has improved clinically with intravascular volume expansion. Sodium is improving. We will continue with supplemental IV fluids for now, pending repeat labs. Correction of electrolyte imbalances as indicated. 4. Recent diagnosis of shingles Patient with minimal symptomatology at this time. Likely okay to hold off on acyclovir therapy. Continue with contact precautions. Pain control as indicated. 5. Hypertension/hypothyroidism/advanced age/[employer]eh[employer] witness Complicates care, management, recovery and prognosis. Likely okay to continue with baseline medications. This note was generated with [employer] software. It may contain incorrect words, spelling, and punctuation that were not noted in checking the note before signing.
[2017-10-06 11:41] LABS: Urine Sodium 56 mmol/L (Not Establ.)
--- NOTE | 2017-10-06 11:45 | PN_ITS ---
Patient Problems: Active and Suspected Problems Shingles outbreak (Acute) Hyponatremia (Acute) Hypochloremia (Acute) Hypokalemia (Acute) Syncope and collapse (Acute) Subjective: The patient was seen and examined. She is sitting up in the chair in no acute distress. Nursing staff reports no acute events overnight, patient is ambulating without difficulty. Reports she still has a cough that is occasionally productive of white sputum. Has some mild dyspnea on exertion but has improved. She remains on room air and is saturating appropriately, she is using her incentive spirometer frequently and obtaining approximately 1000 mL. Remains afebrile and hemodynamically stable. States she will likely go home later today. Objective: Clinical Impression(s) from Imaging Studies Chest X-Ray 10/03/17 06:48 IMPRESSION: Small left pleural effusion with left lower lobe subsegmental atelectasis. If there is a high clinical suspicion of a left lower lobe pneumonia consider clarification with CT. Electronically Signed: Cristian Cruz MD at 7:09 EST , Service support , Chest X-Ray 10/05/17 12:27 IMPRESSION: Mild increased markings at the lung base are slightly worse on the left side with blunting of left costophrenic angle. This is essentially unchanged. Electronically Signed: Albin Powell MD at 14:15 EST Tel [phone], Service support , - Physical Exam General: Alert, Oriented x3, Cooperative, No apparent distress, Well developed, Well nourished, - - No conversational dyspnea HEENT: Atraumatic Oral: Moist Mucosa, No Gingival or Mucosal Lesions/ Ulcerations Neck: Supple, No Nodes, Trachea Midline Lungs: - - Diminished with bibasilar rales, no rhonchi or wheezing. Symmetrical expansion, no dullness to percussion. Cardiovascular: Regular rate, Regular Rhythm, Normal S1, Normal S2, No murmurs Abdomen: Bowel Sounds Present, Soft, Non Tender, Non-Distended Extremities: No clubbing, No cyanosis, Edema - Trace lower extremity Skin: No rashes, No breakdown Musculoskeletal: No Tenderness to Palpation of Joints or Extremities Lymphatic: No Cervical, Supraclavicular, or Inguinal Adenopathy Neurological: Cranial nerves II-XII grossly intact, Neuro grossly intact, Motor Exam 5/5 strength throughout Psych/Mental Status: Alert and oriented to time, place, person, mood and affect Vital Signs Temp Pulse Resp BP Pulse Ox 98.4 F 77 18 159/80 H 96 10/06/17 08:22 10/06/17 10:52 10/06/17 08:22 10/06/17 08:22 10/06/17 09:41 Oxygen Flow Rate [AMBULATING 0 on Room Air] Oxygen Flow Rate 2 Oxygen Delivery Method Room Air Weight: 146 lb 6.191 oz Body Mass Index (BMI) 25.8 Orthostatic Vital Signs Start: 10/05/17 09:14 Freq: q24h Status: Active Protocol: Activity Type Activity Date Activity User E-Sign Co-Sign Detail Recorded Client Recorded Date Recorded By Document 10/05/17 09:14 AMH [id number] 10/05/17 09:26 AMH 10/05/17 09:14 Orthostatic Vitals Standing -Blood Pressure (90/60-120/80) 159/75 H -Extremity Use Right Arm -Pulse Rate (60-100) 75 Sitting -Blood Pressure (90/60-120/80) 162/75 H -Extremity Use Right Arm -Pulse Rate (60-100) 72 Lying -Blood Pressure (90/60-120/80) 163/70 H -Extremity Use Right Arm -Pulse Rate (60-100) 66 Intake and Output for Last 24 Hours 10/04/17 10/05/17 10/06/17 23:59 23:59 23:59 Intake Total 3603 / 3603 2190 / 2190 240 / 240 Output Total 1200 / 1200 200 / 200 Balance 2403 / 2403 1989 / 1989 240 / 240 Microbiology Past 72 Hours 10/03/17 12:35 Enteric Bacteriology - Final Stool 10/03/17 12:35 C. difficile DNA Amplification - Final Stool 10/03/17 09:09 Respiratory Panel (PCR) - Final Mucosa - Nasopharyngeal Influenza A (Subtype H3) Laboratory Tests Past 24 Hrs 10/05/17 10/05/17 10/05/17 09:05 14:50 14:50 WBC RBC Hgb Hct MCV MCH MCHC RDW RDW Differential Plt Count MPV Immature Gran % (Auto) Neut % (Auto) Lymph % (Auto) Lynn % (Auto) Eos % (Auto) Baso % (Auto) Absolute Neuts (auto) Absolute Lymphs (auto) Total Counted Sodium Potassium Chloride Carbon Dioxide Anion Gap BUN Creatinine Estim Creat Clear Calc Est GFR (MDRD) Af Amer Est GFR (MDRD) Non-Af BUN/Creatinine Ratio Glucose Calcium Iron 20 L TIBC 299 Iron Saturation 6.7 L Ferritin 54 Urine Osmolality Ur Random Sodium 91 Urine Creatinine 27.80 Urine Potassium 24.0 Urine Chloride 111 10/06/17 10/06/17 10/06/17 05:26 05:26 11:15 WBC 5.7 RBC 3.95 L Hgb 10.7 L Hct 31.6 L MCV 80.0 L MCH 27.1 MCHC 33.9 RDW 13.6 RDW Differential 38.7 Plt Count 202 MPV 10.0 Immature Gran % (Auto) 0.000 Neut % (Auto) 53.2 Lymph % (Auto) 31.9 Lynn % (Auto) 12.3 H Eos % (Auto) 2.1 Baso % (Auto) 0.5 Absolute Neuts (auto) 3.0 Absolute Lymphs (auto) 1.82 Total Counted Not Reportable Sodium 131 L Potassium 3.9 Chloride 97 L Carbon Dioxide 27.0 Anion Gap 7 BUN 8 Creatinine 0.63 Estim Creat Clear Calc 40.21 Est GFR (MDRD) Af Amer 117 Est GFR (MDRD) Non-Af 97 BUN/Creatinine Ratio 12.6 Glucose 89 Calcium 8.0 L Iron TIBC Iron Saturation Ferritin Urine Osmolality Pending Ur Random Sodium Urine Creatinine Urine Potassium Urine Chloride 10/06/17 10/06/17 10/06/17 11:15 11:15 11:15 WBC RBC Hgb Hct MCV MCH MCHC RDW RDW Differential Plt Count MPV Immature Gran % (Auto) Neut % (Auto) Lymph % (Auto) Lynn % (Auto) Eos % (Auto) Baso % (Auto) Absolute Neuts (auto) Absolute Lymphs (auto) Total Counted Sodium Potassium Chloride Carbon Dioxide Anion Gap BUN Creatinine Estim Creat Clear Calc Est GFR (MDRD) Af Amer Est GFR (MDRD) Non-Af BUN/Creatinine Ratio Glucose Calcium Iron TIBC Iron Saturation Ferritin Urine Osmolality Ur Random Sodium Pending Urine Creatinine Urine Potassium 11.0 Urine Chloride 60 Assessment/Plan Active and Suspected Problems Shingles outbreak (Acute) Hyponatremia (Acute) Hypochloremia (Acute) Hypokalemia (Acute) Syncope and collapse (Acute) RECOMMENDATIONS: 1. Additional potassium repletion as indicated 2. Contact precautions for shingles, droplet precautions for influenza 3. Encourage incentive spirometer use 4. Increase activity, ambulate 5. Continue Lovenox for DVT prophylaxis 6. Okay to discharge from pulmonary/payroll human resources assistant perspective. IMPRESSIONS: 1. Syncope Clinical suspicion for volume depletion, but patient was not orthostatic in the emergency room. The patient is improving clinically with IV fluid hydration. No further syncopal episodes. We will continue to monitor accordingly. 2. Influenza A infection Patient received IV fluid resuscitation. She does have some bibasilar rales and her IV fluids were discontinued. She is using her incentive spirometer appropriately. Patient has remained afebrile. There is no clinical indication for the use of Tamiflu, given the time duration that has elapsed since symptoms initially began. 3. Hypovolemic hyponatremia/hypokalemia Patient with 1 week history of nausea, vomiting and diarrhea. The patient has improved clinically with intravascular volume expansion. Sodium is improving. We will continue with supplemental IV fluids for now, pending repeat labs. Correction of electrolyte imbalances as indicated. 4. Recent diagnosis of shingles Patient with minimal symptomatology at this time. Likely okay to hold off on acyclovir therapy. Continue with contact precautions. Pain control as indicated. 5. Hypertension/hypothyroidism/advanced age/Jehovah witness Complicates care, management, recovery and prognosis. Likely okay to continue with baseline medications. This note was generated with [employer] software. It may contain incorrect words, spelling, and punctuation that were not noted in checking the note before signing.
[2017-10-06 11:55] LABS: Osmolality, Urine 212 mOsm/KG
[2017-10-06 12:02] LABS: Uric Acid 2.7 mg/dL (2.6-6.0)
[2017-10-06 12:31] LABS: Osmolality, Serum 272 mOsm/KG (280-301)
--- NOTE | 2017-10-06 14:36 | PCM.DC.SUM ---
<Delgado Ovalle - Last Filed: 10/06/17 14:36> Discharge Date and Diagnosis Date of Admission: 10/03/17 Date of Discharge: 10/06/17 - Primary Discharge Diagnosis Acute influenza A bronchitis Viral gastroenteritis Hypovolemic hyponatremia 2/2 decreased PO intake, vomiting, diarrhea, and HCTZ Syncopal episode 2/2 above HTN Iron deficiency anemia - Secondary Discharge Diagnosis Chronic Problems Hypothyroidism (Chronic) Hypertension (Chronic) Hospital Course and Treatment Imaging Results: RAD/Chest PA and Lateral IMPRESSION: Small left pleural effusion with left lower lobe subsegmental atelectasis. If there is a high clinical suspicion of a left lower lobe pneumonia consider clarification with CT. RAD/Chest PA and Lateral IMPRESSION: Mild increased markings at the lung base are slightly worse on the left side with blunting of left costophrenic angle. This is essentially unchanged. Consultations: Kameron Fernandez - critical care Operations: None Procedures: None Summary of Care Provided: Physical exam on day of discharge: General: Resting comfortably NAD Psych: A/Ox3 normal affect HEENT: PEARRLA AT NC Neck: Supple NT CV: RRR no m/t/r/g/h Resp: CTA Abd: [id number] Soft NT no guarding or rigidity Ext: DP2+= no edema Skin: W/D normal turgor Lymph/Heme: No active bleeding or adenopathy Neuro: CN2-12 intact Hospital course: The patient is a 77 year old F with a history of hypertension and hypothyroidism who presented to the ER for syncope. She had recently been ill with GI upset, nausea, vomiting, diarrhea, shortness of breath, and cough. She had passed out the morning prior to presentation and had been unconscious for about 20 minutes. After which she opened her eyes and woke up. She had complained of not feeling well for the past 3-5 weeks with weakness, dizziness, and lightheadedness. In the ER she was found to have significant hyponatremia with a sodium of 18, potassium of 2.6. She was admitted to the ICU and started on IV fluids and potassium replacement. Critical care was consulted. Her electrolyte disturbances were felt to be secondary to her viral gastroenteritis and concomitant use of HCTZ. She tested positive for influenza A. Initially she required oxygen but with bronchodilator therapy and incentive spirometer this was able to be weaned off while at rest and with exertion. Her electrolytes improved with normal saline and p.o. potassium. She was transferred to the PCU. Nephrology was consulted. They recommended no further use of HCTZ, to maintain a fluid restricted diet until follow up, a repeat BMP in one week, and outpatient follow-up. She was started on Norvasc for her blood pressure instead. She was somewhat anemic while here and iron studies revealed iron deficiency, she was started on p.o. iron replacement. Her GI symptoms completely resolved. She continued to have an intermittent cough. Repeat CXR had no acute process. She completed a course of Tamiflu while here. She did well with physical therapy and was able to be discharged home in stable condition. Please follow-up with PCP and with nephrology. This patient was seen by Delgado Ovalle PA-C under the supervision of Doctor Tatum. [] Discharge Diet: No Restrictions, Low fat/ Low Cholesterol Discharge Activity: Return to Normal Activity Home Medications: Medications to take at Discharge Levothyroxine Sodium 100 mcg PO BREAKFAST 08/21/16 Metoprolol Tartrate [Lopressor (beta fidel)] 25 mg PO BID 08/21/16 Losartan Potassium 50 mg PO DAILY 10/03/17 Amlodipine [Norvasc] 5 mg PO DAILY #30 tab 10/06/17 Ferrous Sulfate 325 mg PO DAILY@0800 #30 tab 10/06/17 Following Prescrptions Were Given to Patient: Amlodipine [Norvasc] 5 mg PO DAILY #30 tab Ferrous Sulfate 325 mg PO DAILY@0800 #30 tab Primary Care Physician: Sreekanth Cortez DO [Primary Care Provider] - Please follow up with your Primary Care Physician in: 2 weeks Please Follow Up With: Filipe Melo MD When: 2 weeks Disposition: Home Minutes spent on discharge:: 35 Patient Condition:: Stable Meaningful Use Info Meaningful Use Diagnoses (Choose all that apply): None applicable <Jose Tatum - Last Filed: 10/06/17 17:16> Discharge Date and Diagnosis - Primary Discharge Diagnosis Hypovolemic hyponatremia 2/2 decreased PO intake, vomiting, diarrhea, and HCTZ with 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 I have independently interviewed and examined the patient and reviewed pertinent history, examination findings, laboratory and plan of management. I have reviewed the note and agree with the documented findings with the few additional points. In brief, patient is admitted for severe hypotonic hypovolemic hyponatremia secondary to intravascular volume depletion HCTZ. Discussed with the curator of manuscripts. On admission urine osmolality is low but curator of manuscripts feels that patient might have SIADH at baseline. Sodium decreased from 134-131. Chest x-ray shows mild increased markings at the lung bases, slightly worse on the left side but unchanged from the previous x-ray. IV fluid is discontinued. Patient was advised fluid restriction 1200 cc in 24 hours. Advised to follow-up the curator of manuscripts in 2-3 weeks with repeat BMP in 1 week. More than 30 minutes was spent on the overall discharge process including medicine reconciliation, completion of discharge instruction and discussion with the patient. I have discussed my assessment with Delgado SIMPSON and orders have been reviewed. Code Visit Inpatient E&M: 14628 Disch Hosp
--- NOTE | 2017-10-06 14:46 | DS.PCM_ITS ---
<Delgado Ovalle - Last Filed: 10/06/17 14:36> Discharge Date and Diagnosis Date of Admission: 10/03/17 Date of Discharge: 10/06/17 - Primary Discharge Diagnosis Acute influenza A bronchitis Viral gastroenteritis Hypovolemic hyponatremia 2/2 decreased PO intake, vomiting, diarrhea, and HCTZ Syncopal episode 2/2 above HTN Iron deficiency anemia - Secondary Discharge Diagnosis Chronic Problems Hypothyroidism (Chronic) Hypertension (Chronic) Hospital Course and Treatment Imaging Results: RAD/Chest PA and Lateral IMPRESSION: Small left pleural effusion with left lower lobe subsegmental atelectasis. If there is a high clinical suspicion of a left lower lobe pneumonia consider clarification with CT. RAD/Chest PA and Lateral IMPRESSION: Mild increased markings at the lung base are slightly worse on the left side with blunting of left costophrenic angle. This is essentially unchanged. Consultations: Kameron Fernandez - critical care Operations: None Procedures: None Summary of Care Provided: Physical exam on day of discharge: General: Resting comfortably NAD Psych: A/Ox3 normal affect HEENT: PEARRLA AT NC Neck: Supple NT CV: RRR no m/t/r/g/h Resp: CTA Abd: [id number] Soft NT no guarding or rigidity Ext: DP2+= no edema Skin: W/D normal turgor Lymph/Heme: No active bleeding or adenopathy Neuro: CN2-12 intact Hospital course: The patient is a 77 year old F with a history of hypertension and hypothyroidism who presented to the ER for syncope. She had recently been ill with GI upset, nausea, vomiting, diarrhea, shortness of breath, and cough. She had passed out the morning prior to presentation and had been unconscious for about 20 minutes. After which she opened her eyes and woke up. She had complained of not feeling well for the past 3-5 weeks with weakness, dizziness, and lightheadedness. In the ER she was found to have significant hyponatremia with a sodium of 18, potassium of 2.6. She was admitted to the ICU and started on IV fluids and potassium replacement. Critical care was consulted. Her electrolyte disturbances were felt to be secondary to her viral gastroenteritis and concomitant use of HCTZ. She tested positive for influenza A. Initially she required oxygen but with bronchodilator therapy and incentive spirometer this was able to be weaned off while at rest and with exertion. Her electrolytes improved with normal saline and p.o. potassium. She was transferred to the PCU. Nephrology was consulted. They recommended no further use of HCTZ, to maintain a fluid restricted diet until follow up, a repeat BMP in one week, and outpatient follow-up. She was started on Norvasc for her blood pressure instead. She was somewhat anemic while here and iron studies revealed iron deficiency, she was started on p.o. iron replacement. Her GI symptoms completely resolved. She continued to have an intermittent cough. Repeat CXR had no acute process. She completed a course of Tamiflu while here. She did well with physical therapy and was able to be discharged home in stable condition. Please follow-up with PCP and with nephrology. This patient was seen by Delgado Ovalle PA-C under the supervision of Doctor Tatum. [] Discharge Diet: No Restrictions, Low fat/ Low Cholesterol Discharge Activity: Return to Normal Activity Home Medications: Medications to take at Discharge Levothyroxine Sodium 100 mcg PO BREAKFAST 08/21/16 Metoprolol Tartrate [Lopressor (beta fidel)] 25 mg PO BID 08/21/16 Losartan Potassium 50 mg PO DAILY 10/03/17 Amlodipine [Norvasc] 5 mg PO DAILY #30 tab 10/06/17 Ferrous Sulfate 325 mg PO DAILY@0800 #30 tab 10/06/17 Following Prescrptions Were Given to Patient: Amlodipine [Norvasc] 5 mg PO DAILY #30 tab Ferrous Sulfate 325 mg PO DAILY@0800 #30 tab Primary Care Physician: Sreekanth Cortez DO [Primary Care Provider] - Please follow up with your Primary Care Physician in: 2 weeks Please Follow Up With: Filipe Melo MD When: 2 weeks Disposition: Home Minutes spent on discharge:: 35 Patient Condition:: Stable Meaningful Use Info Meaningful Use Diagnoses (Choose all that apply): None applicable <Jose Tatum - Last Filed: 10/06/17 17:16> Discharge Date and Diagnosis - Primary Discharge Diagnosis Hypovolemic hyponatremia 2/2 decreased PO intake, vomiting, diarrhea, and HCTZ with 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 I have independently interviewed and examined the patient and reviewed pertinent history, examination findings, laboratory and plan of management. I have reviewed the note and agree with the documented findings with the few additional points. In brief, patient is admitted for severe hypotonic hypovolemic hyponatremia secondary to intravascular volume depletion HCTZ. Discussed with the embedder. On admission urine osmolality is low but embedder feels that patient might have SIADH at baseline. Sodium decreased from 134-131. Chest x- ray shows mild increased markings at the lung bases, slightly worse on the left side but unchanged from the previous x-ray. IV fluid is discontinued. Patient was advised fluid restriction 1200 cc in 24 hours. Advised to follow- up the embedder in 2-3 weeks with repeat BMP in 1 week. More than 30 minutes was spent on the overall discharge process including medicine reconciliation, completion of discharge instruction and discussion with the patient. I have discussed my assessment with Delgado SIMPSON and orders have been reviewed. Code Visit Inpatient E&M: 00141 Disch Hosp
== END 2017-10-06 13:24 | disposition home or self-care (01) | DRG 641 ==
LOC: ED 06:09 → ICU 07:42 → PCU 10-04 14:00 → ICU 10-05 09:12 → PCU 10-05 09:12
PROVIDERS: Internal Medicine Critical Care Medicine; Internal Medicine Nephrology; Nurse Practitioner Family; Physician Assistant; Admitting Provider Hospitalist; Emergency Provider Emergency Medicine; Family Provider Student in an Organized Health Care Education/Training Program; PCP Student in an Organized Health Care Education/Training Program; Visit Provider Internal Medicine
DX: E86.0 Dehydration (principal); A08.4 Viral intestinal infection, unspecified; E87.8 Other disorders of electrolyte and fluid balance, not elsewhere classified; B02.9 Zoster without complications; T50.2X5A Adverse effect of carbonic-anhydrase inhibitors, benzothiadiazides and other diuretics, initial encounter; J10.1 Influenza due to other identified influenza virus with other respiratory manifestations; E86.1 Hypovolemia; E87.1 Hypo-osmolality and hyponatremia; E87.6 Hypokalemia; D50.9 Iron deficiency anemia, unspecified; R55 Syncope and collapse; I10 Essential (primary) hypertension; E03.9 Hypothyroidism, unspecified; Y92.9 Unspecified place or not applicable; Z79.899 Other long term (current) drug therapy
CPT/HCPCS: 36415; 71046; 80048; 81001; 82436; 82570; 82728; 83540; 83550; 83735; 83930; 83935; 84100; 84133; 84300; 84443; 84484; 84550; 85025; 87493; 87506; 87633; 87641; 93005; 94640; 97110; 97116; 97162; 97165; 97535; 97802; 99285; J7030; J7040; A4216; J2405

== ENCOUNTER 2017-10-09 14:28 | Emergency (ER) | payer MEDICARE, SELFPAY ==
[2017-10-09 14:29] VITALS: BP 149/74; PULSE 100; RESP 18; TEMP 37.3; O2SAT 95; BMI 25.2
[2017-10-09 15:07] VITALS: O2SAT 97
--- NOTE | 2017-10-09 15:30 | EKG12_ITS ---
Test Reason : SOB Blood Pressure : / mmHG Vent. Rate : 087 BPM Atrial Rate : 087 BPM P-R Int : 160 ms QRS Dur : 072 ms QT Int : 378 ms P-R-T Axes : 053 021 030 degrees QTc Int : 454 ms Normal sinus rhythm Nonspecific ST abnormality Abnormal ECG Confirmed by LADI TAYLOR, BEATRIS ([id number]), editorial manager DAVE GATES ([id number] on 10/13/2017 2:31:41 PM Referred By: JANI Confirmed By:BEATRIS BLEDSOE MD
--- NOTE | 2017-10-09 15:31 | ED.VISSUMM ---
- ER Visit Summary Date of Service: 10/09/17 Chief Complaint: Weakness and fatigue History of Present Illness: The patient is a 77 F who was discharged 3 days ago for weakness, syncope, electrolyte derangements, and influenza, who presents today for ongoing weakness and fatigue. Patient states she is still having episodes where she progressively got becomes more weak and fatigued as the day progresses. She has had no further syncope. She continues to have a cough and some mild shortness of breath similar to when she was discharged 3 days ago. She noted that her blood pressure is going up at these times, and that she went to urgent care today for an evaluation. They sent her to the emergency department. Patient denies fever, chest pain, abdominal pain, nausea or vomiting, diarrhea, urinary symptoms, myalgias. She has no new symptoms from when she was discharged. Her blood pressure this morning was 179/97, at which time she felt bad and was concerned. Wednesday she has an appointment with her primary care doctor. Medical history of hypothyroidism and hypertension. Chart review shows that patient's HCTZ during her hospitalization was discontinued due to electrolyte derangements. Physical Examination: Vital signs: afebrile, hemodynamically stable, no hypoxia on room air General: well nourished, well developed, in no distress Skin: warm, dry, no rash, no pallor HEENT: normocephalic and atraumatic; PERRL, EOMI, moist mucous membranes Cardiovascular: regular rate and rhythm without murmurs, no peripheral edema, 2+ pulses all distal extremities Respiratory: No increased work of breathing, lungs show mild bibasilar rhonchi with pleural friction rubs Abdominal: Abdomen is soft, nontender with normoactive bowel sounds, no guarding or rebound, no masses MSK: Moves all extremities, no deformities, normal strength Neuro: Awake and alert, oriented ?4. No facial droop, sensation and motor function intact and symmetric Test Results: Abnormal Lab Results 10/09/17 10/09/17 10/09/17 15:45 15:45 15:45 WBC 7.7 RBC 4.14 L Hgb 11.3 L Hct 33.3 L MCV 80.4 L MCH 27.3 MCHC 33.9 RDW 13.7 RDW Differential 39.7 Plt Count 337 MPV 8.7 Immature Gran % (Auto) 1.300 H Neut % (Auto) 47.1 Lymph % (Auto) 31.9 [place] % (Auto) 16.2 H Eos % (Auto) 3.2 Baso % (Auto) 0.3 Absolute Neuts (auto) 3.6 Absolute Lymphs (auto) 2.46 Total Counted Not Reportable Sodium 133 L Potassium 3.3 L Chloride 100 Carbon Dioxide 24.0 Anion Gap 9 BUN 10 Creatinine 0.71 Estim Creat Clear Calc 40.21 Est GFR (MDRD) Af Amer 103 Est GFR (MDRD) Non-Af 85 BUN/Creatinine Ratio 14.1 Glucose 106 Lactic Acid 1.0 Calcium 8.6 Magnesium 2.3 Troponin I < 0.02 Emergency Department Course and Treatment: Patient was given IV fluids, and electrolytes were evaluated. They were at her baseline when she was discharged, with sodium of 133 potassium at 3.3. Patient's hemoglobin was also at baseline and she had no leukocytosis. Magnesium was normal. Troponin negative. Lactate was 1. EKG showed a sinus rhythm without ischemia or ectopy, unchanged from prior. Chest x-ray showed no infiltrates and also showed no more signs of the effusions. Patient's workup showed no changes from her condition when she was discharged, and patient has no new complaints today but just states she does not really feel any better than the day she was discharged. On reevaluation after her IV fluids, she stated that she felt better and did feel well enough to go home. She already has an appointment on Wednesday with her primary care doctor for reevaluation, and she will keep this appointment. She will return if she has any worsening of her condition or further concerns. She was discharged home with her . Treatment Plan: [] Disposition: [] Impression: Generalized weakness and malaise This note was generated with [employer] dictation software. It may contain incorrect words, spelling, and punctuation that were not noted in review of the chart prior to signing ED Disposition - Plan for ED Patient: Disposition: Home or Assisted Living Chief Complaint: Shortness of Breath Instructions: ED Dyspnea Shortness of Breath, ED Weakness [facility] Referrals: Sreekanth Cortez DO [Primary Care Provider] - Keep [facility] appointment Additional Instructions: Your workup today did not show any new concerns compared to your lab work and chest x-ray when you were discharged 3 days ago. Chest x-ray actually looked better today. Please keep your appointment with your primary care doctor on Wednesday as already scheduled. In the meantime if you have any worsening of your condition or any new concerns, please come back immediately to the emergency department for another evaluation.
--- NOTE | 2017-10-09 15:34 | ED.DCSUM_ITS ---
- ER Visit Summary Date of Service: 10/09/17 Chief Complaint: Weakness and fatigue History of Present Illness: The patient is a 77 F who was discharged 3 days ago for weakness, syncope, electrolyte derangements, and influenza, who presents today for ongoing weakness and fatigue. Patient states she is still having episodes where she progressively got becomes more weak and fatigued as the day progresses. She has had no further syncope. She continues to have a cough and some mild shortness of breath similar to when she was discharged 3 days ago. She noted that her blood pressure is going up at these times, and that she went to urgent care today for an evaluation. They sent her to the emergency department. Patient denies fever, chest pain, abdominal pain, nausea or vomiting, diarrhea, urinary symptoms, myalgias. She has no new symptoms from when she was discharged. Her blood pressure this morning was 179/97, at which time she felt bad and was concerned. Wednesday she has an appointment with her primary care doctor. Medical history of hypothyroidism and hypertension. Chart review shows that patient's HCTZ during her hospitalization was discontinued due to electrolyte derangements. Physical Examination: Vital signs: afebrile, hemodynamically stable, no hypoxia on room air General: well nourished, well developed, in no distress Skin: warm, dry, no rash, no pallor HEENT: normocephalic and atraumatic; PERRL, EOMI, moist mucous membranes Cardiovascular: regular rate and rhythm without murmurs, no peripheral edema, 2 + pulses all distal extremities Respiratory: No increased work of breathing, lungs show mild bibasilar rhonchi with pleural friction rubs Abdominal: Abdomen is soft, nontender with normoactive bowel sounds, no guarding or rebound, no masses MSK: Moves all extremities, no deformities, normal strength Neuro: Awake and alert, oriented ?4. No facial droop, sensation and motor function intact and symmetric Test Results: Abnormal Lab Results 10/09/17 10/09/17 10/09/17 15:45 15:45 15:45 WBC 7.7 RBC 4.14 L Hgb 11.3 L Hct 33.3 L MCV 80.4 L MCH 27.3 MCHC 33.9 RDW 13.7 RDW Differential 39.7 Plt Count 337 MPV 8.7 Immature Gran % (Auto) 1.300 H Neut % (Auto) 47.1 Lymph % (Auto) 31.9 [place] % (Auto) 16.2 H Eos % (Auto) 3.2 Baso % (Auto) 0.3 Absolute Neuts (auto) 3.6 Absolute Lymphs (auto) 2.46 Total Counted Not Reportable Sodium 133 L Potassium 3.3 L Chloride 100 Carbon Dioxide 24.0 Anion Gap 9 BUN 10 Creatinine 0.71 Estim Creat Clear Calc 40.21 Est GFR (MDRD) Af Amer 103 Est GFR (MDRD) Non-Af 85 BUN/Creatinine Ratio 14.1 Glucose 106 Lactic Acid 1.0 Calcium 8.6 Magnesium 2.3 Troponin I < 0.02 Emergency Department Course and Treatment: Patient was given IV fluids, and electrolytes were evaluated. They were at her baseline when she was discharged , with sodium of 133 potassium at 3.3. Patient's hemoglobin was also at baseline and she had no leukocytosis. Magnesium was normal. Troponin negative. Lactate was 1. EKG showed a sinus rhythm without ischemia or ectopy , unchanged from prior. Chest x-ray showed no infiltrates and also showed no more signs of the effusions. Patient's workup showed no changes from her condition when she was discharged, and patient has no new complaints today but just states she does not really feel any better than the day she was discharged. On reevaluation after her IV fluids, she stated that she felt better and did feel well enough to go home. She already has an appointment on Wednesday with her primary care doctor for reevaluation, and she will keep this appointment. She will return if she has any worsening of her condition or further concerns. She was discharged home with her . Treatment Plan: [] Disposition: [] Impression: Generalized weakness and malaise This note was generated with [employer] dictation software. It may contain incorrect words, spelling, and punctuation that were not noted in review of the chart prior to signing ED Disposition - Plan for ED Patient: Disposition: Home or Assisted Living Chief Complaint: Shortness of Breath Instructions: ED Dyspnea Shortness of Breath, ED Weakness [facility] Referrals: Sreekanth Cortez DO [Primary Care Provider] - Keep [facility] appointment Additional Instructions: Your workup today did not show any new concerns compared to your lab work and chest x-ray when you were discharged 3 days ago. Chest x-ray actually looked better today. Please keep your appointment with your primary care doctor on Wednesday as already scheduled. In the meantime if you have any worsening of your condition or any new concerns, please come back immediately to the emergency department for another evaluation.
[2017-10-09 15:58] LABS: Absolute Lymphocyte Count 2.46 X10^3/ul (0.83-4.51); Absolute Neutrophil Count 3.6 X10^3/uL (2.0-7.7); Basophil# 0.02 X10^3/uL; Basophil% 0.3 % (0-1); Eosinophil# 0.25 X10^3/uL; Eosinophils% 3.2 % (0-5); Hematocrit 33.3 % (37-47); Hemoglobin 11.3 g/dl (12.0-15.0); Lymphocyte # 2.46 X10^3/ul (4.0); Lymphocyte % 31.9 % (19-41); Mean Corp Hgb Conc 33.9 g/gl (32-36); Mean Corpuscular Hgb 27.3 pg (27.0-32.0); Mean Corpuscular Volume 80.4 fL (81-99); Mean Platelet Vol. 8.7 fl (6.2-12.0); Monocyte# 1.25 X10^3/uL; Monocyte% 16.2 % (0-10); Neutrophil # 3.63 X10^3/uL (2.7-7.7); Neutrophil % 47.1 % (47-70); POSITIVE COUNT NO; POSITIVE DIFFERENTIAL NO; POSITIVE MORPHOLOGY NO; Platelet Count 337 K/mm3 (150-450); RBC Distribution Width CV 13.7 % (11.6-14.6); RBC Distribution Width SD 39.7 fl (35.1-43.9); Red Blood Count 4.14 M/mm3 (4.2-5.4); White Blood Count 7.7 K/mm3 (4.4-11.0)
--- NOTE | 2017-10-09 16:10 | RAD_ITS ---
STUDY: X-RAY CHEST REASON FOR EXAM: Female, 77 years old. Shortness of breath TECHNIQUE: PA and lateral views of the chest. COMPARISON: 2017 chest x-ray FINDINGS: The lungs are clear and expanded. There is no demonstrated pleural abnormality. Normal size heart. Normal mediastinum and enoc. Normal visualized pulmonary arteries. There is atherosclerotic calcification of the aortic arch with tortuosity. There are diffuse degenerative changes of the visualized thoracic spine. Normal visualized ribs, clavicles, and shoulders. There is no demonstrated abnormality of the visualized soft tissue structures of the upper abdomen. RAD/Chest PA and Lateral IMPRESSION: Degenerative changes, as described above. No demonstrated acute cardiopulmonary process. Electronically Signed: Tish Bowen MD at 16:30 EST Tel , Service support ,
[2017-10-09 16:23] LABS: Anion Gap 9 (5-15); BUN 10 mg/dL (7-18); BUN/Creat Ratio 14.1 RATIO (10-20); Calcium,Total 8.6 mg/dL (8.5-10.1); Chloride 100 mmol/L (98-107); Creatinine, Serum 0.71 mg/dL (0.55-1.02); EST Glomerular Filtration Rate 85 mL/min (>60); Est Glom Filt Rate - Afr Amer 103 mL/min (>60); Estimated Creatinine Clearance 40.21 ml/min; Glucose 106 mg/dL (74-106); Magnesium 2.3 mg/dL (1.6-2.6); Potassium 3.3 mmol/L (3.5-5.1); Sodium Level 133 mmol/L (136-145)
[2017-10-09 16:59] VITALS: BP 153/78; PULSE 84; RESP 14; O2SAT 96
--- NOTE | 2017-10-09 17:18 | ED.DEP ---
ED Disposition - Plan for ED Patient: Disposition: Home or Assisted Living Chief Complaint: Shortness of Breath Instructions: ED Dyspnea Shortness of Breath, ED Weakness [facility] Referrals: Sreekanth Cortez DO [Primary Care Provider] - Keep [facility] appointment Additional Instructions: Your workup today did not show any new concerns compared to your lab work and chest x-ray when you were discharged 3 days ago. Chest x-ray actually looked better today. Please keep your appointment with your primary care doctor on Wednesday as already scheduled. In the meantime if you have any worsening of your condition or any new concerns, please come back immediately to the emergency department for another evaluation.
[2017-10-09 17:29] VITALS: BP 154/79; PULSE 81; RESP 16; O2SAT 96
--- NOTE | 2017-10-09 17:30 | ED.RN ---
Verbal and written d/c instructions given to patient. All questions answered. Skin w/d. ABCs intact upon departing ED.
== END 2017-10-09 17:31 | disposition home or self-care (01) ==
PROVIDERS: Emergency Provider Emergency Medicine; Family Provider Student in an Organized Health Care Education/Training Program; PCP Student in an Organized Health Care Education/Training Program
DX: R53.1 Weakness (principal); R53.83 Other fatigue; R06.00 Dyspnea, unspecified; R05 Cough; I10 Essential (primary) hypertension; E03.9 Hypothyroidism, unspecified; Z79.899 Other long term (current) drug therapy
CPT/HCPCS: 71046; 80048; 83605; 83735; 84484; 85025; 93005; 96360; 99284; J7040; A4216

== ENCOUNTER 2023-03-20 17:08 | Emergency (ER) | payer MEDICARE, SELFPAY ==
[2023-03-20 17:10] VITALS: BP 156/84; PULSE 112; RESP 16; TEMP 36.1; O2SAT 95; BMI 26.2
--- NOTE | 2023-03-20 17:23 | EKG12_ITS ---
Test Reason : HTN Blood Pressure : / mmHG Vent. Rate : 084 BPM Atrial Rate : 084 BPM P-R Int : 160 ms QRS Dur : 072 ms QT Int : 342 ms P-R-T Axes : 050 009 058 degrees QTc Int : 404 ms Normal sinus rhythm Nonspecific ST abnormality Abnormal ECG Confirmed by JOHANA TAYLOR, LEAH ([id number]), technical writer and editor BEKA RUIZ ([id number]) on 03/25/2023 8:31:15 AM Referred By: Confirmed By:PARISA VAUGHN MD
--- NOTE | 2023-03-20 17:25 | EDS_ITS ---
HPI History of Present Illness Chief Complaint: Hypertension Informant: patient Onset/Context/Timing Onset: Weeks (2) Context: Gradual Onset Timing: Waxes and wanes Quality: Shaky Location: Generalized Worsened by: Nothing Relieved by: Nothing Narrative Narrative: Patient presents with elevated blood pressure that has been waxing and waning over the last 2 weeks. Patient states she saw her primary care physician for this. Patient states she had her medications adjusted recently. Patient states that she still feels tense at times. Patient states she feels shaky at times. Patient states nothing makes it better and nothing makes it worse. Patient denies any chest pain or shortness of breath. Patient admits to occasional headaches. Patient describes these as tension headache. Patient denies any fevers or chills. Patient denies any visual changes. [facility] Medical History (Updated 03/20/23 @ 18:[address] Frederick Carrasco DO) Hypertension Home Medications levothyroxine 100 mcg tablet 100 mcg PO BREAKFAST 08/21/16 [History Last Taken 1 Day Ago ~10/02/17] metoprolol tartrate 50 mg tablet 25 mg PO BID 08/21/16 [History Last Taken 1 Day Ago ~10/02/17] losartan 50 mg tablet 50 mg PO BID BP CTRL 10/03/17 [History Last Taken 1 Day Ago ~10/02/17] ferrous sulfate 325 mg (65 mg iron) tablet 325 mg PO DAILY@0800 #30 tabs 10/06 [Rx Last Taken Unknown] cephalexin 500 mg capsule 500 mg PO Q6 #12 CAPSULES 03/20/23 [Rx Last Taken Unknown] omeprazole 20 mg capsule,delayed release 20 mg PO .q3day 03/20/23 [History Last Taken Unknown] spironolactone 25 mg tablet 25 mg PO BID 03/20/23 [History Last Taken Unknown] Allergy/AdvReac Type Severity Reaction Status Date / Time No Known Allergies Allergy Verified 10/09/17 14:31 Surgical History (Updated 03/20/23 @ 17:[address] Frederick Carrasco DO) History of carpal tunnel surgery Social History Smoking Status: Never smoker ROS ROS ED Constitutional Constitutional ED: Denies chills or fever(s) Eyes Eyes: Denies blurry vision or change in vision ENT ENT ED: Denies rhinorrhea or sore throat Cardiovascular Cardiovascular: Denies chest pain or palpitations Respiratory/Chest Respiratory/Chest: Denies cough or dyspnea Gastrointestinal Gastrointestinal: Denies nausea or vomiting Genitourinary Genitourinary ED: Denies dysuria or hematuria Musculoskeletal Musculoskeletal: Denies back pain or neck pain Integumentary Denies abscess or rash Neurologic Neurologic: Reports headache(s); Denies weakness Allergic/Immunologic Allergic/Immunologic ED: Denies mouth swelling or urticaria EXAM Physical Exam Const Vital Signs: 03/20/23 17:10 03/20/23 17:53 Temperature 96.9 F L Temperature Source Temporal Pulse Rate 112 H Respiratory Rate 16 Respiratory Effort Normal Non-Labored Respiratory Pattern Normal Blood Pressure 156/84 H Blood Pressure Mean 108 Pulse Ox 95 Oxygen Delivery Method Room Air Positive well nourished and well developed General Appearance ED: well developed HEENT Reports moist mucous membranes Neck supple and no JVD Resp normal respiratory effort and clear to auscultation bilaterally Cardio regular rate, regular rhythm and no murmurs GI normal to inspection, nondistended, normoactive bowel sounds and non-tender Palpation: soft Extremity normal to inspection General Extremety ED: Negative for edema or tenderness General Extremity: Negative for edema Neuro oriented x3, CN's II-XII intact bilaterally and no sensory deficits noted Sensorium / Orientation: alert Motor Exam: strength 5/5 throughout Psych mental status grossly normal Skin no rashes or lesions noted MDM MDM MDM Narrative Medical decision making narrative: Different leg notes includes hypertensive urgency, cardiac ischemia, acute kidney injury, electrolyte abnormality, and urinary tract infection. EKG will be obtained to assess for cardiac dysrhythmia and cardiac ischemia. CBC will be obtained to assess for leukocytosis and anemia. Basic metabolic profile will be obtained to assess for electrolyte abnormality and renal function. Urinalysis will be obtained to assess for urinary tract infection and hematuria. Lab Data Attestation: I reviewed the patient's lab results. Lab results narrative: CBC was reviewed and was within normal limits. Basic metabolic profile was reviewed. Sodium was slightly low at 127. Creatinine was 1.09. These are consistent with prior results. High-sensitivity troponin was reviewed and was normal at 5. Urinalysis was reviewed. Leukocyte Estrace was 500 with 10-25 white blood cells and 1+ bacteria. Labs: Laboratory Results - last 24 hr 03/20/23 17:46 WBC 9.2 RBC 4.17 L Hgb 13.0 Hct 37.2 MCV 89.2 MCH 31.2 MCHC 34.9 RDW Std Deviation 37.2 RDW Coeff of [place] 11.5 L Plt Count 353 MPV 8.6 Immature Gran % (Auto) 0.300 Neut % (Auto) 63.0 Lymph % (Auto) 22.2 [place] % (Auto) 9.9 Eos % (Auto) 4.3 Baso % (Auto) 0.3 Absolute Neuts (auto) 5.8 Absolute Lymphs (auto) 2.05 Nucleated RBC % 0 Sodium 127 L Potassium 4.3 Chloride 94 L Carbon Dioxide 28.0 Anion Gap 5 BUN 13 Creatinine 1.09 H Estim Creat Clear Calc 30.54 Est GFR (MDRD) Af Amer 62 Est GFR (MDRD) Non-Af 51 L BUN/Creatinine Ratio 11.9 Glucose 120 H Calcium 9.3 Troponin I High Sens 5 Urine Color Yellow Urine Clarity Clear Urine pH 6.5 Ur Specific [place] 1.005 Urine Protein Negative Urine Glucose (UA) Normal Urine Ketones Negative Urine Occult Blood Negative Urine Nitrite Negative Urine Bilirubin Negative Urine Urobilinogen Normal Ur Leukocyte Esterase 500 H Urine RBC 0 SEEN Urine WBC 10-25 SEEN Ur Squamous Epith Cells 0 SEEN Urine Bacteria 1+ Urine Mucus 0 SEEN EKG Initial EKG: Attestation: I personally reviewed and interpreted this EKG as follows: Interpretation: Sinus Rhythm (84) and Non-Specific ST Changes Comments: EKG was obtained. On my independent interpretation, it showed a normal sinus rhythm with a rate of 84. NM interval, QRS interval, and QTc in tervals were all normal. [place] was normal. There are nonspecific ST-T wave changes. Prior EKG tracings: available for review Prior: Unchanged (10/09/2017) Additional Tests and Interventions Additional Tests or Interventions: Urine culture was ordered and is pending. Treatment and Re-Evaluation :: Patient was advised of her findings. Patient was instructed to continue to monitor her blood pressures at home. Patient was instructed to follow-up with her primary care physician in 5 to 7 days. Patient was given a dose of Bactrim here. Patient is given a prescription for Bactrim. Patient was instructed to return if worse in any way. Patient understood and was agreeable with the plan. All questions were answered. Discharge Plan Triage Chief Complaint: Hypertension Other Complaint: Dizziness ED Provider: Frederick Carrasco Dx/Rx/DC Orders Clinical Impression: Urinary tract infection, Hypertension Instructions: ED Hypertension, Established, ED Cystitis Female Adult Prescriptions: New cephalexin [cephalexin] 500 mg capsule 500 mg PO Q6 Qty: 12 0RF No Action levothyroxine 100 MCG tablet 100 mcg PO BREAKFAST metoprolol tartrate 50 MG tablet 25 mg PO BID losartan 50 MG tablet 50 mg PO BID ferrous sulfate 325 MG tablet 325 mg PO DAILY@0800 Qty: 30 0RF omeprazole 20 mg capsule,delayed release(DR/EC) 20 mg PO .q3day Patient Comments: take 1 capsule by mouth EVERY 48 HOURS 30 MINUTES PRIOR TO A MEAL spironolactone 25 mg tablet 25 mg PO BID Patient Comments: take 1 tablet by mouth twice a day Primary Care Provider: Sreekanth Cortez Referrals: Sreekanth Cortez DO [Primary Care Provider] - 5-7 Days Disposition Disposition: Home, Self Care
[2023-03-20 17:51] LABS: Mucous, Urine 0 SEEN /hpf (<or=2+); Red Blood Cells-Urine 0 SEEN /hpf (0-5); Squamous Epithelial Cells - UA 0 SEEN /hpf (5-10)
[2023-03-20 17:52] LABS: Absolute Lymphocyte Count 2.05 X10^3/uL (0.83-4.51); Absolute Neutrophil Count 5.8 X10^3/uL (2.0-7.7); Basophil# 0.03 X10^3/uL; Basophil% 0.3 % (0-1); Eosinophils% 4.3 % (0-5); Hematocrit 37.2 % (37-47); Lymphocyte # 2.05 X10^3/ul (0.83-4.51); Lymphocyte % 22.2 % (19-41); Mean Corp Hgb Conc 34.9 g/dL (32-36); Mean Corpuscular Hgb 31.2 pg (27.0-32.0); Mean Corpuscular Volume 89.2 fL (81-99); Mean Platelet Vol. 8.6 fl (6.2-12.0); Monocyte# 0.91 X10^3/uL; Monocyte% 9.9 % (0-10); NRBC Flagged by Analyzer 0 % (0-5); Platelet Count 353 K/mm3 (150-450); RBC Distribution Width CV 11.5 % (11.6-14.6); RBC Distribution Width SD 37.2 fl (35.1-43.9); Red Blood Count 4.17 M/mm3 (4.2-5.4); White Blood Count 9.2 K/mm3 (4.4-11.0)
[2023-03-20 17:54] LABS: Color, Urine Yellow (Yellow); Glucose, Dipstick Normal (Normal); Ketone-Dipstick Negative (Negative); Leukocyte Esterase-Dipstick 500 /ul (Negative); Nitrite-Dipstick Negative (Negative); Occult Blood-Urine Negative /ul (Negative); Protein-Dipstick Negative (Negative); Specific Gravity, Urine 1.005 (1.002-1.030); Urine Bilirubin Dipstick Negative (Negative); Urine Clarity Clear (Clear); Urine Urobilinogen Normal (Normal); Urine pH 6.5 (5.0 - 8.0)
[2023-03-20 18:01] LABS: Bacteria 1+ /hpf (None Seen); White Blood Cells 10-25 SEEN /hpf (0-5)
[2023-03-20 18:11] LABS: Anion Gap 5 (5-15); BUN 13 mg/dL (7-18); BUN/Creat Ratio 11.9 RATIO (10-20); Calcium,Total 9.3 mg/dL (8.5-10.1); Chloride 94 mmol/L (98-107); Creatinine, Serum 1.09 mg/dL (0.55-1.02); EST Glomerular Filtration Rate 51 mL/min (>60); Est Glom Filt Rate - Afr Amer 62 mL/min (>60); Estimated Creatinine Clearance 30.54 ml/min; Glucose 120 mg/dL (74-106); Potassium 4.3 mmol/L (3.5-5.1); Sodium Level 127 mmol/L (136-145); Troponin-I HS 5 pg/mL (3.0-54.0)
[2023-03-20 19:13] VITALS: BP 143/68; PULSE 70; RESP 14; TEMP 36.6
[2023-03-20] MEDS: Cephalexin 500 MG Capsule PO (19:13)
== END 2023-03-20 19:30 | disposition home or self-care (01) ==
PROVIDERS: Emergency Provider Emergency Medicine; PCP Student in an Organized Health Care Education/Training Program; Visit Provider Emergency Medicine
DX: N39.0 Urinary tract infection, site not specified (principal); I10 Essential (primary) hypertension; R42 Dizziness and giddiness; Z79.890 Hormone replacement therapy; Z79.899 Other long term (current) drug therapy
CPT/HCPCS: 80048; 81001; 84484; 85025; 87086; 87088; 93005; 99284; A4216

== ENCOUNTER 2023-06-29 10:46 | Emergency (ER) | payer MEDICARE, SELFPAY ==
[2023-06-29 10:47] VITALS: BP 175/81; PULSE 90; RESP 18; TEMP 35.8; O2SAT 98; BMI 26.6
--- NOTE | 2023-06-29 11:00 | CT_ITS ---
STUDY: CT BRAIN WITHOUT CONTRAST REASON FOR EXAM: Female, 83 years old. Dizziness, headache RADIATION DOSAGE (If Supplied By Facility): CTDIvol = ( 44.99 ) mGy, DLP = ( 728.62 ) mGycm TECHNIQUE: Transaxial CT imaging of the brain was performed without administration of intravenous contrast material. Individualized dose optimization techniques were used for this CT. COMPARISON: No relevant priors. FINDINGS: Normal soft tissue structures. Normal calvarium. There is mild cerebral atrophy with widening of the extra-axial spaces and ventricular dilatation. There are areas of decreased attenuation within the white matter tracts of the supratentorial brain, consistent with microvascular disease changes. There are small punctate calcifications of the basal ganglia which are seen in the aging brain as a normal variant. Normal brainstem. Normal cerebellum. There is no intracranial hemorrhage. There are no findings of an acute ischemic infarction. Atherosclerotic plaque formation of the cavernous portions of the internal carotid arteries bilaterally. Mild degree of mucosal thickening of the inferior aspect of the right maxillary sinus. CT/Brain/Head without Contrast IMPRESSION: Chronic involutional changes of the brain. Electronically Signed: Albin Powell MD at 12:29 EST ,
--- NOTE | 2023-06-29 11:01 | EKG12_ITS ---
Test Reason : Blood Pressure : / mmHG Vent. Rate : 075 BPM Atrial Rate : 075 BPM P-R Int : 166 ms QRS Dur : 070 ms QT Int : 372 ms P-R-T Axes : 052 -02 031 degrees QTc Int : 415 ms Normal sinus rhythm Normal ECG Confirmed by JOHANA TAYLOR, LEAH ([id number]), manager editorial BEKA RUIZ ([id number]) on 07/05/2023 10:34:11 AM Referred By: Confirmed By:PARISA VAUGHN MD
--- NOTE | 2023-06-29 11:02 | EDS_ITS ---
HPI History of Present Illness Chief Complaint: Dizziness Detail of Chief Complaint: Dizziness and generalized weakness Informant: patient Narrative Narrative: Patient presents to the emergency department complaint of feeling lightheaded an d presyncopal for the last 4 months. She has been seeing her primary care physician and they have been adjusting her thyroid medication. She did have a syncopal episode in February of this year but none since. She denies chest pain or shortness of breath out of the ordinary. She denies abdominal pain. She denies urinary symptoms. Patient states she was in the emergency department a month and a half ago and had an elevated white blood cell count and they treated her for some sort of an infection but discharged her home. Patient also with history of hyponatremia. Prior similar symptoms: [facility] Medical History (Updated 06/29/23 @ 14:[address] Josselyn Adhikari DO) Hypertension Home Medications levothyroxine 100 mcg tablet 100 mcg PO BREAKFAST 08/21/16 [History Last Taken 1 Day Ago ~10/02/17] metoprolol tartrate 50 mg tablet 25 mg PO BID 08/21/16 [History Last Taken 1 Day Ago ~10/02/17] losartan 50 mg tablet 50 mg PO BID BP CTRL 10/03/17 [History Last Taken 1 Day Ago ~10/02/17] ferrous sulfate 325 mg (65 mg iron) tablet 325 mg PO DAILY@0800 #30 tabs 10/06/17 [Rx Last Taken Unknown] cephalexin 500 mg capsule 500 mg PO Q6 #12 CAPSULES 03/20/23 [Rx Last Taken Unknown] omeprazole 20 mg capsule,delayed release 20 mg PO .q3day 03/20/23 [History Last Taken Unknown] spironolactone 25 mg tablet 25 mg PO BID 03/20/23 [History Last Taken Unknown] Allergy/AdvReac Type Severity Reaction Status Date / Time No Known Allergies Allergy Verified 06/29/23 10:48 Surgical History (Updated 03/20/23 @ 17:[address] Frederick Carrasco DO) History of carpal tunnel surgery Social History Smoking Status: Never smoker ROS ROS ED Review of Systems ROS Unobtainable: other Constitutional Constitutional ED: Reports lethargy; Denies chills, fever(s), sweats or weight loss Eyes Eyes: Denies blurry vision, change in vision or diplopia ENT ENT ED: Denies rhinorrhea or sore throat Cardiovascular Cardiovascular: Denies chest pain, orthopnea or racing heartbeat Respiratory/Chest Respiratory/Chest: Denies cough, dyspnea, dyspnea on exertion, orthopnea or sputum Gastrointestinal Gastrointestinal: Denies abdominal pain, diarrhea, nausea or vomiting Genitourinary Genitourinary ED: Denies dysuria, hematuria or urinary frequency Musculoskeletal Musculoskeletal: Denies arthralgias, back pain, myalgias or neck pain Integumentary Denies abscess, Abrasions or rash Neurologic Neurologic: Reports headache(s) and weakness Psychiatric Psychiatric: Denies anxiety, depression or suicidal thoughts Endocrine Endocrinology: Denies polydipsia, polyphagia or polyuria Hematologic/Lymphatic Hematologic/Lymphatic: Denies easy bleeding, easy bruising or lymphadenopathy Allergic/Immunologic Allergic/Immunologic ED: Denies mouth swelling, tongue swelling or urticaria EXAM Physical Exam Const Vital Signs: 06/29/23 10:47 06/29/23 11:38 06/29/23 14:09 Temperature 96.5 F L Temperature Source Temporal Pulse Rate 90 72 Pulse Rate [Lying] 64 Pulse Rate [Sitting (for 1 minute prior to obtaining)] 70 Pulse Rate [Standing (for 1 minute prior to obtaining)] 71 Respiratory Rate 18 18 Blood Pressure 175/81 H Blood Pressure [Lying] 155/65 H Blood Pressure [Sitting (for 1 minute prior to obtaining)] 165/75 H Blood Pressure [Standing (for 1 minute prior to obtaining)] 151/68 H Blood Pressure Mean 112 Blood Pressure Mean [Lying] 95 Blood Pressure Mean [Sitting (for 1 minute prior to obtaining)] 105 Blood Pressure Mean [Standing (for 1 minute prior to obtaining)] 95 Pulse Ox 98 98 Oxygen Delivery Method Room Air Room Air Positive well nourished and well developed General Appearance ED: well developed and NAD HEENT Reports TM's clear and moist mucous membranes normocephalic and atraumatic; Negative for trauma or tenderness Tympanic Membrane ED: Yes TM's clear Eyes PERRL and EOMs intact bilaterally General Eye ED: Negative for pale conjunctiva or scleral icterus Neck no lymphadenopathy, supple and no JVD General: Negative for tenderness Chest Wall inspection of chest normal and palpation of chest normal Chest: Negative for tenderness Resp normal respiratory effort and clear to auscultation bilaterally Effort and Inspection: Negative for respiratory distress or pain with movement Auscultation: Negative for rhonchi, wheezes or diminished lung sounds Cardio regular rate, regular rhythm, S1 normal heart sound, S2 normal heart sound and no murmurs Peripheral Pulses: pulses 2+ throughout GI normal to inspection, nondistended, normoactive bowel sounds, soft to palpation, non-tender, non-distended and no masses Back/Spine no CVA tenderness and no thoracic nor lumbar tenderness Extremity normal to inspection General Extremety ED: Negative for edema General Extremity: Negative for edema Neuro oriented x3, CN's II-XII intact bilaterally, no sensory deficits noted and gait normal Sensorium / Orientation: awake, alert, oriented to person, oriented to place and oriented to time Motor Exam: strength 5/5 throughout and strength abnormal Psych mental status grossly normal Skin no rashes or lesions noted and no wounds MDM MDM MDM Narrative Medical decision making narrative: Patient presents with vague symptoms of dizziness for 4 months. She been seeing her primary care physician. She describes some vague headaches. Patient also states that at times feels like her hearts racing and that she becomes anxious. In the differential would be orthostatic hypotension versus infectious etiology versus cardiac dysrhythmia versus acute intracranial pathology. CT scan of the brain without contrast obtained showed chronic emotional changes otherwise nothing acute. EKG obtained arrival shows sinus rhythm with ventricular rate of 75 bpm with no acute ST segment changes. CBC with differential showed a white count of 9.1 with hemoglobin 10.9 and platelet count of 338. Chemistries unremarkable. Troponin normal at 8. Urinalysis was normal. Orthostatic vital signs were negative. Etiology of patient's symptoms unclear. Patient will have a Holter monitor placed for 48 hours. She is advised to follow-up with her primary care physician and follow-up with cardiology if her symptoms persist. Lab Data Attestation: I reviewed the patient's lab results. Labs: Laboratory Results - last 24 hr 06/29/23 06/29/23 06/29/23 11:15 11:52 14:04 WBC 9.1 RBC 3.58 L Hgb 10.9 L Hct 32.5 L MCV 90.8 MCH 30.4 MCHC 33.5 RDW Std Deviation 38.9 RDW Coeff of Selam 11.8 Plt Count 338 MPV 9.1 Immature Gran % (Auto) 0.700 Neut % (Auto) 67.9 Lymph % (Auto) 18.0 L [place] % (Auto) 9.5 Eos % (Auto) 3.6 Baso % (Auto) 0.3 Absolute Neuts (auto) 6.1 Absolute Lymphs (auto) 1.63 Nucleated RBC % 0 Sodium 128 L Potassium 4.5 Chloride 97 L Carbon Dioxide 25.0 Anion Gap 6 BUN 11 Creatinine 0.93 Estim Creat Clear Calc 35.80 Est GFR (MDRD) Af Amer 75 Est GFR (MDRD) Non-Af 62 BUN/Creatinine Ratio 11.9 Glucose 102 Calcium 9.1 Troponin I High Sens 8 Urine Color Yellow Yellow Urine Clarity Clear Clear Urine pH 7.0 7.0 Ur Specific [place] 1.005 1.005 Urine Protein Negative Negative Urine Glucose (UA) Normal Normal Urine Ketones Negative Negative Urine Occult Blood Negative Negative Urine Nitrite Negative Negative Urine Bilirubin Negative Negative Urine Urobilinogen Normal Normal Ur Leukocyte Esterase 500 H 25 H Urine RBC Cancelled 0 SEEN Urine WBC Cancelled 0 SEEN Ur Squamous Epith Cells Cancelled 0 SEEN Ur Transition Epith Cell Cancelled Ur Renal Epithelial Cell Cancelled Calcium Oxalate Crystal Cancelled Uric Acid Crystals Cancelled Triple Phos Crystals Cancelled Other Crystals Cancelled Amorphous Sediment Cancelled Urine Bacteria Cancelled 0 SEEN Hyaline Casts Cancelled Fine Granular Casts Cancelled Coarse Granular Casts Cancelled Waxy Casts Cancelled RBC Casts Cancelled WBC Casts Cancelled Urine Mucus Cancelled 0 SEEN Urine Trichomonas Cancelled Urine Yeast Cancelled Radiography Diagnostic Testing: Clinical Impression(s) from Imaging Studies Brain CT 06/29/23 11:00 IMPRESSION: Chronic involutional changes of the brain. Electronically Signed: Albin Powell MD at 12:29 EST , EKG Initial EKG: Attestation: I personally reviewed and interpreted this EKG as follows: Comments: Sinus rhythm with rate 75 bpm with no acute ST segment changes Prior EKG tracings: available for review Prior: Unchanged Discharge Plan Triage Chief Complaint: Dizziness ED Provider: Josselyn Adhikari Dx/Rx/DC Orders Clinical Impression: Palpitations, Dizziness, Near syncope Instructions: ED Dizziness, Uncertain Cause, ED Palpitations, ED Near-Fainting, Uncertain Cause Prescriptions: No Action levothyroxine 100 MCG tablet 100 mcg PO BREAKFAST metoprolol tartrate 50 MG tablet 25 mg PO BID losartan 50 MG tablet 50 mg PO BID ferrous sulfate 325 MG tablet 325 mg PO DAILY@0800 Qty: 30 0RF omeprazole 20 mg capsule,delayed release(DR/EC) 20 mg PO .q3day Patient Comments: take 1 capsule by mouth EVERY 48 HOURS 30 MINUTES PRIOR TO A MEAL spironolactone 25 mg tablet 25 mg PO BID Patient Comments: take 1 tablet by mouth twice a day cephalexin [cephalexin] 500 mg capsule 500 mg PO Q6 Qty: 12 0RF Primary Care Provider: Sreekanth Cortez Referrals: Sreekanth Cortez DO [Primary Care Provider] - 5-7 Days Disposition Disposition: Home, Self Care
[2023-06-29 11:23] LABS: Absolute Lymphocyte Count 1.63 X10^3/uL (0.83-4.51); Absolute Neutrophil Count 6.1 X10^3/uL (2.0-7.7); Basophil# 0.03 X10^3/uL; Basophil% 0.3 % (0-1); Eosinophil# 0.33 X10^3/uL; Eosinophils% 3.6 % (0-5); Hematocrit 32.5 % (37-47); Hemoglobin 10.9 g/dL (12.0-15.0); Lymphocyte # 1.63 X10^3/ul (0.83-4.51); Mean Corp Hgb Conc 33.5 g/dL (32-36); Mean Corpuscular Hgb 30.4 pg (27.0-32.0); Mean Corpuscular Volume 90.8 fL (81-99); Mean Platelet Vol. 9.1 fl (6.2-12.0); Monocyte# 0.86 X10^3/uL; Monocyte% 9.5 % (0-10); NRBC Flagged by Analyzer 0 % (0-5); Neutrophil # 6.14 X10^3/uL (2.7-7.7); Neutrophil % 67.9 % (47-70); Platelet Count 338 K/mm3 (150-450); RBC Distribution Width CV 11.8 % (11.6-14.6); RBC Distribution Width SD 38.9 fl (35.1-43.9); Red Blood Count 3.58 M/mm3 (4.2-5.4); White Blood Count 9.1 K/mm3 (4.4-11.0)
[2023-06-29] MEDS: 0.9% Normal Saline (1000mL) 1,000 ML 150 ML IV (11:37)
[2023-06-29 11:38] VITALS: BP 151/68; BP 155/65; BP 165/75; PULSE 64; PULSE 70; PULSE 71
[2023-06-29 11:43] LABS: Anion Gap 6 (5-15); BUN 11 mg/dL (7-18); BUN/Creat Ratio 11.9 RATIO (10-20); Calcium,Total 9.1 mg/dL (8.5-10.1); Chloride 97 mmol/L (98-107); Creatinine, Serum 0.93 mg/dL (0.55-1.02); EST Glomerular Filtration Rate 62 mL/min (>60); Est Glom Filt Rate - Afr Amer 75 mL/min (>60); Glucose 102 mg/dL (74-106); Potassium 4.5 mmol/L (3.5-5.1); Sodium Level 128 mmol/L (136-145); Troponin-I HS 8 pg/mL (3.0-54.0)
[2023-06-29 12:04] LABS: Color, Urine Yellow (Yellow); Glucose, Dipstick Normal (Normal); Ketone-Dipstick Negative (Negative); Leukocyte Esterase-Dipstick 500 /ul (Negative); Nitrite-Dipstick Negative (Negative); Occult Blood-Urine Negative /ul (Negative); Protein-Dipstick Negative (Negative); Specific Gravity, Urine 1.005 (1.002-1.030); Urine Bilirubin Dipstick Negative (Negative); Urine Clarity Clear (Clear); Urine Urobilinogen Normal (Normal)
[2023-06-29 14:09] VITALS: PULSE 72; RESP 18; O2SAT 98
[2023-06-29 14:12] LABS: Bacteria 0 SEEN /hpf (None Seen); Mucous, Urine 0 SEEN /hpf (<or=2+); Red Blood Cells-Urine 0 SEEN /hpf (0-5); Squamous Epithelial Cells - UA 0 SEEN /hpf (5-10); White Blood Cells 0 SEEN /hpf (0-5)
[2023-06-29 14:13] LABS: Color, Urine Yellow (Yellow); Glucose, Dipstick Normal (Normal); Ketone-Dipstick Negative (Negative); Leukocyte Esterase-Dipstick 25 /ul (Negative); Nitrite-Dipstick Negative (Negative); Occult Blood-Urine Negative /ul (Negative); Protein-Dipstick Negative (Negative); Specific Gravity, Urine 1.005 (1.002-1.030); Urine Bilirubin Dipstick Negative (Negative); Urine Clarity Clear (Clear); Urine Urobilinogen Normal (Normal)
[2023-06-29 15:17] VITALS: PULSE 78; RESP 18; O2SAT 98
== END 2023-06-29 15:17 | disposition home or self-care (01) ==
PROVIDERS: Emergency Provider Emergency Medicine; PCP Student in an Organized Health Care Education/Training Program; Visit Provider Emergency Medicine
DX: R55 Syncope and collapse (principal); I10 Essential (primary) hypertension; R00.2 Palpitations; R53.1 Weakness; Z79.890 Hormone replacement therapy; Z79.899 Other long term (current) drug therapy
CPT/HCPCS: 70450; 80048; 81001; 81002; 84484; 85025; 93005; 93225; 93226; 96360; 96361; 99285; J7030; A4216

== ENCOUNTER 2025-02-22 06:06 | Emergency (ER) | payer MEDICARE, SELFPAY ==
[2025-02-22] VITALS (7 sets, daily range): BP systolic 148–201; BP diastolic 60–98; PULSE 72–100; RESP 13–18; TEMP 36.6; O2SAT 97–99; BMI 26.4
--- NOTE | 2025-02-22 06:38 | EKG12_ITS ---
Test Reason : HTN Blood Pressure : */* mmHG Vent. Rate : 90 BPM Atrial Rate : 90 BPM P-R Int : 176 ms QRS Dur : 82 ms QT Int : 386 ms P-R-T Axes : 68 15 127 degrees QTcB Int : 472 ms Normal sinus rhythm Nonspecific ST and T wave abnormality Abnormal ECG Confirmed by EDNA TAYLOR, ROSELINE ([id number]), editorial project manager BEKA RUIZ ([id number]) on 02/26/2025 10:25:55 AM Referred By: Confirmed By: ROSELINE BISHOP MD
--- NOTE | 2025-02-22 06:38 | RAD_ITS ---
PROCEDURE: CHEST PA AND LATERAL 02/22/2025 REASON FOR EXAM: HTN TECHNIQUE: CHEST PA AND LATERAL COMPARISON: None FINDINGS: Heart size and mediastinal configuration are within normal limits. There is no focal infiltrate or consolidation. There is no pneumothorax or effusion. Aortic calcifications are visible. There is no acute bony abnormality. RAD/Chest PA and Lateral IMPRESSION: No acute process is identified in the chest. Reading Location: [facility]
--- NOTE | 2025-02-22 06:38 | RAD_ITS ---
PROCEDURE: CHEST PA AND LATERAL 02/22/2025 REASON FOR EXAM: HTN TECHNIQUE: CHEST PA AND LATERAL COMPARISON: None FINDINGS: Heart size and mediastinal configuration are within normal limits. There is no focal infiltrate or consolidation. There is no pneumothorax or effusion. Aortic calcifications are visible. There is no acute bony abnormality. RAD/Chest PA and Lateral IMPRESSION: No acute process is identified in the chest. Reading Location: [facility]
--- NOTE | 2025-02-22 06:38 | EKG12_ITS ---
Test Reason : HTN Blood Pressure : */* mmHG Vent. Rate : 90 BPM Atrial Rate : 90 BPM P-R Int : 176 ms QRS Dur : 82 ms QT Int : 386 ms P-R-T Axes : 68 15 127 degrees QTcB Int : 472 ms Normal sinus rhythm Nonspecific ST and T wave abnormality Abnormal ECG Confirmed by EDNA TAYLOR, ROSELINE ([id number]), deputy editor in chief BEKA RUIZ ([id number]) on 02/26/2025 10:25:55 AM Referred By: Confirmed By: ROSELINE BISHOP MD
--- NOTE | 2025-02-22 06:41 | EDS_ITS ---
HPI History of Present Illness Chief Complaint: Hypertension Narrative Narrative: Chief complaint and HPI: Hypertension. 84-year-old female with past medical history of HTN, hypothyroidism presents for evaluation of HTN. Patient states for the past month she has been having uncontrolled hypertension. She followed up with her primary care physician on 02/05 in which her medications were changed. She states that she was on losartan 50 mg twice daily as well as metoprolol 50 mg twice daily. States that she was taken off of the metoprolol and instead placed on carvedilol 12.5 mg BID. She was also written for hydralazine 25 mg 3 times daily as needed for blood pressure greater than 140/90. Patient states that she has been monitoring her blood pressure closely and it ranges frequently. Patient states last night her SBP was in the 200s. She she took hydralazine with some improvement however this morning it increased today which is why she presents. She states when her blood pressure elevates she feels unwell. Symptoms are intermittent and include headache, blurred visi on, tingling, nausea, shortness of breath. Patient currently at this time is only endorsing mild headache and nausea. She denies any fever, chills, URI symptoms, chest pain, abdominal pain. Review of systems: See HPI Medications: As listed on the chart Allergies: As listed on the chart PFSH: Per chart Vital signs: As listed on the chart. Reviewed. Physical exam: Gen: A&O x3, NAD Head: Normocephalic, atraumatic Eyes: No sclera icterus, conjunctiva clear ENT: Moist mucous membranes Neck: Trachea midline, No JVD CV: RRR, no murmurs, no peripheral edema Resp: Lungs CTA BL, no w/r/c GI: Abd soft, non-distended, non-tender, no r/r/g Musc: Full ROM, no deformity Skin: Warm, dry Neuro: Alert, oriented, grossly intact, sensation intact Psych: Cooperative, appropriate mood and affect [facility] Medical History (Updated 02/22/25 @ 07:[address] Devaughn Farmer, DO) Hypertension Home Medications ?Medication ?Instructions ?Recorded ?Last Taken ?Type levothyroxine 100 mcg tablet 100 mcg PO BREAKFAST 07/25 1 Day Ago History ~10/02/17 losartan 50 mg tablet 50 mg PO BID BP CTRL 8 1 Day Ago History ~10/02/17 carvedilol 12.5 mg tablet 12.5 mg PO BID blood pressur e 02/22/25 Unknown History furosemide 20 mg tablet 20 mg PO DAILY 02/22/25 Unkn own History hydralazine 25 mg tablet 25 mg PO TID PRN PRN htn 11/14 Unknown History Allergy/AdvReac Type Severity Reaction Status Date / Time gluten AdvReac Nausea/Vom/ Verified 02/22/25 06:07 Diarrhea Surgical History (Updated 03/20/23 @ 17:[address] Frederick Carrasco DO) History of carpal tunnel surgery Social History Smoking Status: Never smoker EXAM Physical Exam Const Vital Signs: 02/22/25 06:07 02/22/25 06:07 02/22/25 06:15 Temperature 98 F Temperature Source Oral Pulse Rate 77 72 Respiratory Rate 16 16 Respiratory Effort Short of Breath Blood Pressure 194/98 H 201/85 H Blood Pressure Mean 130 118 Pulse Ox 98 97 Oxygen Delivery Method Room Air Room Air 02/22/25 06:30 02/22/25 06:45 02/22/25 07:07 Temperature Temperature Source Pulse Rate 75 75 100 Respiratory Rate 13 18 16 Respiratory Effort Blood Pressure 195/90 H 200/60 H 150/70 H Blood Pressure Mean 116 101 96 Pulse Ox 98 98 97 Oxygen Delivery Method Room Air Room Air MDM MDM MDM Narrative Medical decision making narrative: 84-year-old female with past medical history of HTN, hypothyroidism presents for evaluation of HTN. Patient states for the past month she has been having uncontrolled hypertension. She followed up with her primary care physician on 02/05 in which her medications were changed. She states that she was on losartan 50 mg twice daily as well as metoprolol 50 mg twice daily. States that she was taken off of the metoprolol and instead placed on carvedilol 12.5 mg BID. She was also written for hydralazine 25 mg 3 times daily as needed for blood pressure greater than 140/90. Patient states since this change her blood pres sure has been fluctuating frequently. She brought values for me to review. The lowest SBP in the 130s, the highest in the 200s. On chart review, patient has an appointment on 04/04/[address] Lewis. On presentation, patient in no acute distress however her blood pressure is 194/98. Differential diagnosis includes but is not limited to hypertension urgency, hypertensive emergency, intracranial bleed/abnormality. IV hydralazine ordered for blood pressure as well as Zofran. Cardiac workup ordered including CT head. EKG and chest x-ray reviewed. CT of the head shows chronic ischemic changes, similar to prior. No acute intracranial abnormality. CBC without leukocytosis or anemia. Platelets unremarkable. BMP unremarkable without electrolyte abnormality, LISY. Troponin 12. BNP unremarkable. On reevaluation, patient's blood pressure has improved with the hydralazine. Her blood pressure is now 150/70. Given that patient has been following up with her primary care physician who is managing her hypertension, we will reach out to discuss changes in medications. Primary care physician is not available as there is not an on-call provider at this time and their office is not open. Plan will be to increase patient's carvedilol to 25 mg twice daily. She was educated that she needs to continue her losartan as well as hydralazine as needed. She is to monitor her blood pressure. She needs to return back to the ED if symptoms change or worsen. She was told to call the primary care's office later this morning to let them know of the medication change and if they have any further recommendations or change in management. She confirmed understanding the plan. Patient stable to discharge home. She was able to ambulate in the ED with her walker. EKG: Interpreted by me/EM physician: EKG shows normal sinus rhythm with nonspecific ST changes. No ST elevation. Heart rate 90. Diagnostic: Interpreted by me/EM physician: Chest x-ray without pneumonia, effusion, cardiom egaly, pneumothorax Impression: 1. Hypertension urgency 2. History of hypertension Lab Data Labs: Laboratory Results - last 24 hr 02/22/25 06:18 WBC 8.6 RBC 4.14 L Hgb 12.6 Hct 36.6 L MCV 88.4 MCH 30.4 MCHC 34.4 RDW Std Deviation 39.2 RDW Coeff of Selam 12.1 Plt Count 285 MPV 9.4 Immature Gran % (Auto) 0.500 Neut % (Auto) 58.7 Lymph % (Auto) 21.6 [place] % (Auto) 11.4 H Eos % (Auto) 7.3 H Baso % (Auto) 0.5 Absolute Neuts (auto) 5.1 Absolute Lymphs (auto) 1.86 Nucleated RBC % 0 Sodium 134 Potassium 4.0 Chloride 100 Carbon Dioxide 22.8 Anion Gap 12 BUN 8 Creatinine 0.78 Estim Creat Clear Calc 46.32 L Est GFR (MDRD) Non-Af 76 BUN/Creatinine Ratio 9.8 L Glucose 114 H Calcium 9.0 Troponin T High Sens 12 NT pro BNP II 210 Radiography Diagnostic Testing: Clinical Impression(s) from Imaging Studies Chest X-Ray 02/22/25 06:38 IMPRESSION: No acute process is identified in the chest. Reading [facility] 02/22/25 06:55 IMPRESSION: There is low-density in the deep white matter in the right and left consistent with chronic ischemic change, similar to the prior. No acute intracranial pathology. Reading Location: [facility] Discharge Plan Triage Chief Complaint: Hypertension ED Provider: Devaughn Farmer Dx/Rx/DC Orders Clinical Impression: Hypertensive urgency Instructions: Hypertension Dc, ED Hypertension, Established Prescriptions: No Action levothyroxine 100 MCG tablet 100 mcg PO BREAKFAST losartan 50 MG tablet 50 mg PO BID hydralazine 25 mg tablet 25 mg PO TID PRN PRN (Reason: htn) carvedilol 12.5 mg tablet 12.5 mg PO BID furosemide 20 mg tablet 20 mg PO DAILY Primary Care Provider: Sreekanth Cortez Referrals: Sreekanth Cortez DO [Primary Care Provider] - 3-5 Days Activity Restrictions/Additional Instructions: Plan is to increase your losartan to 50 mg twice daily. Continue your carvedilol and hydralazine. Monitor your blood pressure closely at home. Call your primary care's office this morning and let them know of the medication change. Return back to the ED if symptoms change or worsen. Print Language: Italian Disposition Disposition: Home, Self Care
[2025-02-22 06:53] LABS: Hematocrit 36.6 % (37-47); Hemoglobin 12.6 g/dL (12.0-15.0); Immature Granulocytes Count 0.040 X10^3/uL (0.0-0.0); Mean Corp Hgb Conc 34.4 g/dL (32-36); Mean Corpuscular Volume 88.4 fL (81-99); Mean Platelet Vol. 9.4 fl (6.2-12.0); NRBC Flagged by Analyzer 0 % (0-5); Platelet Count 285 K/mm3 (150-450); RBC Distribution Width CV 12.1 % (11.6-14.6); RBC Distribution Width SD 39.2 fl (35.1-43.9); Red Blood Count 4.14 M/mm3 (4.2-5.4); White Blood Count 8.6 K/mm3 (4.4-11.0)
--- NOTE | 2025-02-22 06:55 | CT_ITS ---
EXAM: NONCONTRAST CT SCAN OF THE HEAD CLINICAL HISTORY: Headache, hypertension COMPARISON: June 29, 2023 TECHNIQUE: Serial axial series through the head were obtained without contrast. 2-D coronal and sagittal reformats were then obtained. FINDINGS: Brain: There is no acute large territorial infarct, intracranial hemorrhage, midline shift or mass effect. There are atherosclerotic vascular calcifications involving the bilateral carotid siphons. There is low-density in the deep white matter in the right and left consistent with chronic ischemic change, similar to the prior. The sella and pineal gland regions appear unremarkable. There is no evidence of cerebellar tonsillar herniation. A punctate calcification is noted in the left insular region, and right occipital lobe, unchanged. Ventricles: There is no acute hydrocephalus. Basilar cisterns are patent. Paranasal sinuses: Well-aerated Mastoid air cells: Well-aerated. Calvarium: The bony calvarium is intact. Orbits: The bilateral globes are symmetric, without retrobulbar compressive mass lesion or hemorrhage. CT/Brain/Head without Contrast IMPRESSION: There is low-density in the deep white matter in the right and left consistent with chronic ischemic change, similar to the prior. No acute intracranial pathology. Reading Location: [facility]
--- OUTSIDE RECORDS SUMMARY | 2025-02-22 07:07 | XMS RPT_ITS | CCD ---
Author Organization [facility] Care Team Providers Care Oven Baker Name Role Phone Mercedes Granado Unavailable Unavailable PROVIDER, UNKNOWN Unavailable Unavailable PROVIDER, UNKNOWN Unavailable Unavailable JOE RIOS Unavailable Unavail able PROVIDER, UNKNOWN Unavailable Unavailable Cortez Sreekanth Unavailable Unavailable Cortez Sreekanth DOYLE Primary Care Provider Sreekanth Cortez DO Primary Care Provider Cortez DO Sreekanth L Primary Care Provider Diego DOYLE Sreekanth Sung Primary Care Provider Diego Sreekanth Primary Care Unavailable Etelvina Weathers Attending Unavailable Ungur, Remus Referring Unavailable Ungur Remus Attending Unavailable Cortez, Sreekanth Primary Care Unavailable Frederick Carrasco Attending Unavailable Cortez, Sreekanth Primary Care Unavailable LIYA ROSE Attending Unavailable LIYA ROSE Admitting Unavailable CORTEZ, SREEKANTH Almaraz Primary Care Unavailable DELILAH TRAORE Consulting Unavailabl e Cortez DO Sreekanth L Primary Care Provider Franklyn TRADEMARK ATTORNEY.Donita COVARRUBIAS Unavailable Zurdo TRADEMARK ATTORNEY.Sergei COVARRUBIAS Unavailable Mary TRADEMARK ATTORNEY.Margoth COVARRUBIAS Unavailable DELILAH TRAORE Attending Unavailabl e CORTEZSREEKANTH Primary Care Unavailable ZURDO SERGEI Referring Unavailable CORTEZ, SREEKANTH L Primary Care Unavailable CORTEZ, SREEKANTH L Primary Care Unavailable SREEKANTH CORTEZ L Attending Unavailable CORTEZ, SREEKANTH L Primary Care Unavailable MARGOTH CHAVEZ Attending Unavailable MARGOTH CHAVEZ Referring Unavailable CORTEZ, SREEKANTH Almaraz Primary Care Unavailable SREEKANTH CORTEZ L Primary Care Unavailable PODLOGAR, MARIBETH Attending Unavailable CORTEZ, SREEKANTH L Primary Care Unavailable SREEKANTH CORTEZ Primary Care Unavailable SREEKANTH CORTEZ Attending Unavailable SERGEI RENNER Referring Unavailable SREEKANTH CORTEZ Primary Care Unavailable SERGEI RENNER Attending Unavailable SREEKANTH CORTEZ Primary Care Unavailable Allergies Allergy Classification Reported Allergen(s) Allergy Type Date of Onset Reaction(s) Facility (20 sources) Gluten; Translations: [GLUTEN] Propensity to adverse reactions to drug (disorder) 3 [facility] Repository (20 sources) MILK CONTAINING PRODUCTS (DAIRY); Translations: [MILK CONTAINING PRODUCTS (DAIRY)] Propensity to adverse reactions to drug (disorder) 3 [facility] Rep[facility] Medications Current Medications Medication Drug Class(es) Dates Sig (Normalized) Sig (Original) amLODIPine 5 mg oral tablet (7 sources) Dihydropyridine Calcium Channel Cris Start: 06-28-2019 End: 07-08-2022 take 0.5 tablet by mouth once daily amLODIPine (NORVASC) 5 mg tablet Take 0.5 tablets by mouth once daily. 90 tablet 1 02/25/2022 07/08/2022 Discontinued Start: 10-06-2017 End: 03-20-2023 take 5 mg by mouth once daily Amlodipine Discontinued 5 MG PO DAILY October 06, 2017 12:00am March 20, 2023 4:51pm Comment on above: Take 0.5 tablets by mouth once daily. carvedilol 12.5 mg oral tablet (2 sources) alpha-Adrenergic Cris, beta-Adrenergic Cris Start: 5 take 1 tablet by mouth twice daily carvedilol (COREG) 12.5 mg tablet Indications: Hypertension, essential , Stage 3a chronic kidney disease (HCC) Take 1 tablet by mouth two times a day. For blood pressure 180 tablet 1 02/05/2025 Active cephalexin 500 mg oral capsule (4 sources) Cephalosporin Antibacterial Start: 3 End: 3 take 1 capsule by mouth four times daily cephALEXin (KEFLEX) 500 mg capsule Indications: Dysuria Take 1 capsule by mouth four times daily for 5 days. 20 capsule 0 03/31/2023 04/05/2023 Active Start: 03-20-2023 take 500 mg by mouth every six hours Cephalexin Active 500 MG PO EVERY 6 HOURS March 19, 2023 11:00pm Start: 04-06-2022 End: 04-11-2022 take 1 capsule by mouth twice daily cephALEXin (KEFLEX) 500 mg capsule Indications: Urinary frequency Take 1 capsule by mouth twice daily for 5 days. 10 capsule 0 04/06/2022 04/11/2022 Active Comment on above: Take 1 capsule by mo [facility] twice daily for 5 days. Take 1 capsule by [facility] four times daily for 5 days. furosemide 20 mg oral tablet (17 sources) Loop Diuretic Start: 4 End: take 1 tablet by mouth once furosemide (LASIX) 20 mg tablet Indications: Hypertension, essential Take 1 tablet by mouth every afternoon. 90 tablet 1 11/09/2024 05/08/2025 Active hydrALAZINE hydrochloride 25 mg oral tablet (2 sources) Arteriolar Vasodilator Start: hydrALAZINE (APRESOLINE) 25 mg tablet Indications: Hypertension, essential , Stage 3a chronic kidney disease (HCC) Take 1 tablet by mouth three times a day as needed (elevated blood pressure > 140/90). 90 tablet 3 02/05/2025 Active levothyroxine sodium 0.1 mg oral tablet (20 sources) l-Thyroxine Start: 5 End: 5 take 1 tablet by mouth once daily SYNTHROID 100 mcg tablet Indications: Hypothyroidism, unspecified type Take 1 tablet by mouth once daily. Take on empty stomach 30 tablet 5 01/11/2025 07/10/2025 Active Start: 05-02-2024 End: 01-09-2025 take 1 tablet by mouth once daily SYNTHROID 100 mcg tablet Indications: Hypothyroidism, unspecified type Take 1 tablet by mouth once daily. Take on empty stomach 30 tablet 2 10/11/2024 01/09/2025 Active Start: 09-11-2023 End: 10-25-2024 take 1 tablet by mouth once daily levothyroxine (SYNTHROID) 88 mcg tablet Take 1 tablet by mouth once daily. 90 tablet 1 10/12/2023 04/28/2024 Discontinued Start: 03-24-2021 End: 03-31-2023 take 1 tablet by mouth once daily for thyroid dysfunction levothyroxine (LEVOXYL) 125 mcg tablet Indications: Hypothyroidism, unspecified type Take on empty stomach. For thyroid. 1 PO daily x 1 day a week 26 tablet 3 02/26/2022 03/15/2023 Discontinued Start: 08-21-2016 End: 07-20-2023 take 1 tablet by mouth once daily levothyroxine (SYNTHROID) 100 mcg tablet Indications: Hypothyroidism, unspecified type 1 PO daily x 6 days a week 66 tablet 3 02/26/2022 03/15/2023 Discontinued Comment on above: 1 PO daiily x 5 days a week Take on empty stomac h. For thyroid. 1 PO daily x 2 days a wek 1 PO daily x 6 days a week Take on empty stomac h. For thyroid. 1 PO daily x 1 day a week Take on empty stomac h. For thyroid. 1 PO daily x 2 days a week 1 PO daily x 5 days a week Take on empty stomac h. For thyroid. 1 PO daily x 1 days a week Take 1 tablet by mike th once daily. Take on empty stomach Take 1 tablet by mike th once daily. losartan potassium 50 mg oral tablet (20 sources) Angiotensin 2 Receptor Cris Start: 03-23-2024 End: 01-12-2026 take 1 tablet by mouth twice daily losartan (COZAAR) 50 mg tablet Indications: Hypertension, essential Take 1 tablet by mouth two times a day. 180 tablet 3 01/12/2025 01/12/2026 Active Start: 09-13-2023 End: 09-07-2024 take 1 tablet by mouth twice daily losartan (COZAAR) 25 mg tablet Take 1 tablet by mouth two times a day. 180 tablet 3 09/13/2023 03/23/2024 Discontinued Start: 10-03-2017 End: 03-09-2023 take 1 tablet by mouth twice daily losartan (COZAAR) 50 mg tablet Indications: Essential hypertension Take 1 tablet by mouth twice daily. 180 tablet 3 02/25/2022 03/09/2023 Discontinued Comment on above: Take 1 tablet by mike th twice daily. take 1 tablet by mike th twice a day Take 1 tablet by mike th two times a day. multivit with iron,minerals (MULTIVITAMIN AND MINERALS ORAL) (20 sources) multivit with ir on,minerals (MULTIVITAMIN AND MINERALS ORAL) Take by mouth. Active multivit with ir on,minerals (MULTIVITAMIN AND MINERALS ORAL) Take by mouth. 0 Active Comment on above: Take by mouth. nirmatrelvir tablet 300 mg (150 mg x 2) and ritonavir tablet 100 mg in a dose pack (PAXLOVID) (1 source) Start: 08-10-2022 End: 08-15-2022 nirmatrelvir tablet 300 mg (150 mg x 2) and ritonavir tablet 100 mg in a dose pack (PAXLOVID) Indications: COVID Administer TWO pink nirmatrelvir 150 mg tablets and ONE white ritonavir 100 mg tablet for a total of three tablets twice daily. 30 tablet 0 08/10/2022 08/15/2022 Active Comment on above: Administer TWO pink nirmatrelvir 150 mg tablets and ONE white ritonavir 100 mg tablet for a total of three tablets twice daily. omeprazole 20 mg delayed release oral capsule (20 sources) Proton Pump Inhibitor Start: 03-20-2023 Omeprazole Active 20 MG PO .q3March 19, 2023 11:00pm Start: 08-31-2022 End: 08-09-2023 take 1 capsule by mouth before mealtime omeprazole (PRILOSEC) 20 mg capsule Indications: Gastroesophageal reflux disease, unspecified whether esophagitis present Take 1 capsule by mouth every 48 hours. 1/2 hr before meal. 45 capsule 1 08/31/2022 08/09/2023 Discontinued (Other) Start: 07-08-2022 End: 08-31-2022 take 1 capsule by mouth once daily before breakfast omeprazole (PRILOSEC) 20 mg capsule Indications: Gastroesophageal reflux disease, unspecified whether esophagitis present Take 1 capsule by mouth daily before breakfast. 1/2 hr before meal. 30 capsule 1 07/08/2022 08/31/2022 Discontinued Comment on above: Take 1 capsule by mo uth daily before breakfast. 1/2 hr before meal. Take 1 capsule by mo uth every 48 hours. 1/2 hr before meal. Completed/Discontinued Medications Medication Drug Class(es) Dates Sig (Normalized) Sig (Original) benzonatate 100 mg oral capsule (6 sources) Non-narcotic Antitussive Start: 11-06-2023 End: 02-14-2024 take 1 capsule by mouth every eight hours as needed benzonatate (TESSALON PERLES) 100 mg capsule Take 1 capsule by mouth three times a day as needed. 12 capsule 0 11/06/2023 02/14/2024 Discontinued Comment on above: Take 1 capsule by mo [facility] three times a day as needed. busPIRone hydrochloride 5 mg oral tablet (16 sources) Start: 07-21-2023 End: 11-16-2023 take 1 tablet by mouth three times daily as needed busPIRone (BUSPAR) 5 mg tablet Indications: CHECO (generalized anxiety disorder) Take 1 tablet by mouth three times a day as needed. 90 tablet 1 08/18/2023 11/16/2023 Comment on above: Take 1 tablet by mike three times a day. Take 1 tablet by mike three times a day as needed. ferrous sulfate 325 mg oral tablet (20 sources) Start: 10-11-2017 End: 04-28-2024 take 1 tablet by mouth twice daily at mealtime ferrous sulfate 325 mg (65 mg iron) tablet Take 325 mg by mouth two times a day with meals. 10/11/2017 04/28/2024 Discontinued Start: 10-11-2017 take 1 tablet by mike twice daily at mealtime ferrous sulfate 325 mg (65 mg iron) tablet Take 1 tablet by mouth twice daily with meals. 0 10/11/2017 Active Start: 10-06-2017 take 325 mg by mouth once aaron y Ferrous Sulfate Active 325 MG PO DAILY@0800 30 October 06, 2017 12:00am Comment on above: Take 1 tablet by mike twice daily with meals. hydroCHLOROthiazide 12.5 mg oral capsule (2 sources) Thiazide Diuretic Start: 016 End: 018 take 12.5 mg by mouth once daily Hydrochlorothiazide Discontinued 12.5 MG PO DAILY August 21, 2016 12:00am October 06, 2017 11:17am 24 hr metoprolol succinate 25 mg extended release oral tablet (20 sources) beta-Adrenergic Cris Start: 025 End: 025 metoprolol succinate ER (TOPROL XL) 25 mg 24 hr tablet Indications: Hypertension, essential Take one tablet twice a day along with 50 mg tablet to equal 75 mg twice a day 180 tablet 1 12/25/2024 02/05/2025 Discontinued Start: 11-28-2024 End: 02-05-2025 take 1 tablet by mouth twice daily metoprolol succinate ER (TOPROL XL) 50 mg 24 hr tablet Take 1 tablet by mouth two times a day. 180 tablet 1 11/28/2024 02/05/2025 Discontinued Start: 02-14-2024 End: 11-28-2024 take 1.5 tablets by mouth every twenty-four hours in the morning, then take 1.5 tablets by mouth in the evening metoprolol succinate ER (TOPROL XL) 25 mg 24 hr tablet Indications: Essential hypertension Take 1.5 tablet PO in the AM and take 1.5 tablets PO in the PM 270 tablet 1 08/09/2024 11/28/2024 Discontinued Start: 08-13-2023 End: 02-14-2024 take 1 tablet by mouth twice daily metoprolol succinate ER (TOPROL XL) 25 mg 24 hr tablet Take 1 tablet by mouth two times a day. 60 tablet 1 08/13/2023 11/10/2023 Discontinued Start: 07-12-2023 take 1 tablet by mike th once daily metoprolol succinate ER (TOPROL XL) 25 mg 24 hr tablet Take 1 tablet by mouth once daily. 90 tablet 1 07/12/2023 Active Start: 09-12-2021 End: 03-09-2023 take 1 tablet by mouth twice daily metoprolol tartrate, short acting, (LOPRESSOR) 25 mg tablet Indications: Essential hypertension take 1 tablet by mouth twice a day 180 tablet 1 09/10/2022 03/09/2023 Discontinued Start: 08-21-2016 take 25 mg by mouth twice aaron y Metoprolol Tartrate Active 25 MG PO TWICE A DAY August 21, 2016 12:00am Comment on above: Take 1 tablet by mike th twice daily. take 1 tablet by mike th twice a day Take 1 tablet by mike th once daily. Take 1 tablet by mike th two times a day. perflutren lipid microspheres 1.3 mL in NaCl (PF) 0.9% 10 mL injection (DEFINITY) (20 sources) Start: 07-08-2022 End: 10-07-2023 perflutren lipid microspheres 1.3 mL in NaCl (PF) 0.9% 10 mL injection (DEFINITY) sodium chloride 1000 mg oral tablet (20 sources) Start: 10-27-2023 End: 11-26-2023 take 1 tablet by mouth twice daily sodium chloride 1,000 mg TbSO Take 1 tablet by mouth two times a day. 60 tablet 5 10/27/2023 11/26/2023 Start: 07-08-2022 End: 10-07-2023 sodium chloride 0.9 % (flush ) 10 mL (BD POSIFLUSH) Comment on above: Take 1 tablet by mike th two times a day. spironolactone 25 mg oral tablet (20 sources) Aldosterone Antagonist Start: 11-24-19 End: 04-28-20 take 1 tablet by mouth once daily spironolactone (ALDACTONE) 25 mg tablet Take 1 tablet by mouth once daily. 11/24/2023 04/28/2024 Discontinued Start: 03-15-2023 take 1 tablet by mike th twice daily spironolactone (ALDACTONE) 25 mg tablet Indications: Bilateral leg edema , Essential hypertension Take 1 tablet by mouth twice daily. 180 tablet 1 03/15/2023 Active Start: 09-12-2021 End: 03-15-2023 take 1 tablet by mouth once daily spironolactone (ALDACTONE) 25 mg tablet Indications: Bilateral leg edema take 1 tablet by mouth once daily 90 tablet 1 09/14/2022 03/11/2023 Discontinued Comment on above: Take 1 tablet by mike th once daily. take 1 tablet by mike th once daily Take 1 tablet by mike th twice daily. TENS unit and electrodes cmpk (20 sources) Start: 12-25-2022 End: 02-14-2024 TENS unit and electrodes cmpk Indications: Lumbar radiculopathy , Chronic midline low back pain with bilateral sciatica 1 Units as directed. Dx: chronic low back pain, lumbar radiculopathy 1 Each 12/25/2022 02/14/2024 Discontinued Start: 12-25-2022 End: 02-14-2024 TENS unit and electrodes cmp k Indications: Lumbar radiculopathy , Chronic midline low back pain with bilateral sciatica 1 Units as directed. Dx: chronic low back pain, lumbar radiculopathy 1 Each 0 12/25/2022 02/14/2024 Discontinued Start: 12-25-2022 TENS unit and electrodes cmpk Indications: Lumbar radiculopathy , Chronic midline low back pain with bilateral sciatica 1 Units as directed. Dx: chronic low back pain, lumbar radiculopathy 1 Each 0 12/25/2022 Active Comment on above: 1 Units as directed. Dx: chronic low back pain, lumbar radiculopathy Problems Active Problems Problem Classification Problem Date Documented Date Episodic/Chronic Abdominal pain (1 source) Left flank pain; Translations: [Unspecified abdominal pain] Episodic Anxiety disorders (2 sources) Generalized anxiety disorder; Translations: [Generalized anxiety disorder] 07-21-2023 Chronic Cardiac dysrhythmias (20 sources) Supraventricular tachycardia; Translations: [SVT (supraventricular tachycardia)] Onset: 08-13-2023 08-13-2023 Chronic Chronic kidney disease (20 sources) Chronic kidney disease stage 3A ; Translations: [Stage 3a chronic kidney disease (HCC)] Onset: 07-26-2020 Chronic Chronic kidney disease (2 sources) Chronic kidney disease; Translations: [Stage 3a chronic kidney disease (HCC)] Onset: 07-26-2020 Deficiency and other anemia (9 sources) Iron deficiency anemia; Translations: [Other iron deficiency anemias] Episodic Diseases of white blood cells (3 sources) Leukocytosis; Translations: [Elevated white blood cell count, unspecified] 07-23-2023 Chronic Disorders of lipid metabolism (20 sources) Dyslipidemia; Translations: [Hyperlipidemia, unspecified] Onset: 12-13-2017 Chronic Esophageal disorders (20 sources) Gastroesophageal reflux disease; Translations: [Gastro-esophageal reflux disease without esophagitis] Onset: 09-01-2022 Chronic Essential hypertension (20 sources) Essential hypertension; Translations: [Essential (primary) hypertension] Onset: 08-31-2016 Chronic Nutritional deficiencies (20 sources) Vitamin D deficiency; Translations: [Vitamin D deficiency, unspecified] Onset: 06-28-2019 Chronic Other circulatory disease (2 sources) Labile blood pressure; Translations: [Other specified symptoms and signs involving the circulatory and respiratory systems] 02-19-2025 Episodic Other circulatory disease (1 source) Other specified symptoms and signs involving the circulatory and respiratory systems; Translations: [Labile blood pressure] Onset: 02-19-2025 Episodic Other lower respiratory disease (2 sources) Cough; Translations: [Acute cough] 11-06-2023 Episodic Other upper respiratory infections (1 source) Acute upper respiratory infection; Translations: [Acute upper respiratory infection, unspecified] 11-06-2023 Episodic Residual codes; unclassified (1 source) Procedure not done; Translations: [Procedure and treatment not carried out, unspecified reason] 06-29-2023 Episodic Spondylosis; intervertebral disc disorders; other back problems (5 sources) Lumbar radiculopathy; Translations: [Radiculopathy, lumbar region] Episodic Syncope (3 sources) Syncope and collapse; Translations: [Syncope and collapse] 10-03-2017 Episodic Thyroid disorders (20 sources) Hypothyroidism; Translations: [Hypothyroidism, unspecified] Onset: 08-31-2016 Chronic Unclassified (3 sources) Encounter for screening mammogram for malignant neoplasm of breast; Translations: [Patient encounter status] Onset: 02-24-2017 Episodic Urinary tract infections (2 sources) Urinary tract infectious disease; Translations: [Urinary tract infection, site not specified] 03-20-2023 Episodic Viral infection (3 sources) Disease caused by 2019-nCoV; Translations: [COVID-19] Episodic Past or Other Problems Problem Classification Problem Date Documented Da te Episodic/Chronic Cardiac dysrhythmias (20 sources) Palpitations; Translations: [Palpitations] Onset: 08-09-2023 06-29-2023 Episodic Conditions associated with dizziness or vertigo (20 sources) Dizziness; Translations: [Dizziness and giddiness] Onset: 07-08-2023 05-17-2023 Episodic Deficiency and other anemia (20 sources) Anemia; Translations: [Anemia, unspecified] Onset: 12-13-2017 12-13-2017 Episodic Deficiency and other anemia (1 source) Other iron deficiency anemias; Translations: [Other iron deficiency anemia] Onset: 12-13-2017 Episodic Fluid and electrolyte disorders (20 sources) Hypokalemia; Translations: [Hypokalemia] Onset: 12-26-2018 12-26-2018 Episodic Genitourinary symptoms and ill-defined conditions (20 sources) Increased frequency of urination; Translations: [Frequency of micturition] Onset: 03-31-2023 Episodic Hemorrhoids (20 sources) External hemorrhoids; Translations: [Residual hemorrhoidal skin tags] Onset: 08-30-2023 08-30-2023 Episodic Malaise and fatigue (20 sources) Fatigue; Translations: [Other fatigue] Onset: 07-14-2023 07-14-2023 Episodic Nutritional deficiencies (20 sources) Nutritional deficiency state; Translations: [Other specified nutritional deficiencies] Onset: 09-22-2023 09-22-2023 Episodic Other nervous system disorders (20 sources) Tremor; Translations: [Tremor, unspecified] Onset: 07-14-2023 07-14-2023 Episodic Residual codes; unclassified (20 sources) Bilateral lower limb edema; Translations: [Localized edema] Onset: 01-24-2021 Episodic Unclassified (4 sources) Asymptomatic menopausal state; Translations: [Family history of malignant neoplasm, unspecified] Onset: 02-24-2017 Episodic Results Test Name Value Interpretation Reference Range Facility Basic metabolic 2000 panelon 02-20-2025 Anion gap [Moles/Vol] 12 mmol/L 8 - 15 mmol/L [facility] Calcium [Mass/Vol] 9.5 mg/dL 8.5 - 10. 2 mg/dL [facility] Chloride [Moles/Vol] 100 mmol/L 98 - 10 7 mmol/L [facility] CO2 [Moles/Vol] 23 mmol/L 22 - 30 mmol/L [facility] Creatinine [Mass/Vol] 0.82 mg/dL 0.58 - 0.96 mg/dL [facility] GFR/1.73 sq M.predicted among non-blacks MDRD (S/P/Bld) [Vol rate/Area] 72 mL/min/{1.73_m2} - PINF [facility] Comment on above: Estimated Glomerular Filtration Rate (eGFR) is calculated using the 2020 CKD-EPI creatinine equation. This equation utilizes serum creatinine, sex, and age as parameters. The creatinine assay has traceable calibration to isotope dilution-mass spectrometry. Refer to KDIGO guidelines for clinical interpretation. In patients with unstable renal function, e.g. those with acute kidney injury, the eGFR may not accurately reflect actual GFR. Glucose [Mass/Vol] 111 mg/dL High 74 - 99 mg/dL [facility] Comment on above: The [place] [employer] (ADA) provides guidance for cutoff values for fasting glucose and random glucose. The ADA defines fasting as no caloric intake for at least 8 hours. Fasting plasma glucose results between 100 to 125 mg/dL indicate increased risk for diabetes (prediabetes). Fasting plasma glucose results greater than or equal to 126 mg/dL meet the criteria for diagnosis of diabetes. In the absence of unequivocal hyperglycemia, results should be confirmed by repeat testing. In a patient with classic symptoms of hyperglycemia or hyperglycemic crisis, random plasma glucose results greater than or equal to 200 mg/dL meet the criteria for diagnosis of diabetes. Reference: Standards of Medical Care in Diabetes 2016, [place] [employer]. Diabetes Care. 2016.39(Suppl 1). Interpretation and review of laboratory results Abnormal [facility] Potassium [Moles/Vol] 4.1 mmol/L 3.7 - 5.1 mmol/L [facility] Sodium [Moles/Vol] 135 mmol/L Low 136 - 144 mmol/L [facility] Urea nitrogen [Mass/Vol] 11 mg/dL 7 - 21 mg/dL [facility] Iron and Iron binding capaci ty panelon 02-20-2025 Interpretation and review of laboratory results Normal [facility] Iron [Mass/Vol] 64 ug/dL 41 - 186 ug/dL [facility] Iron binding capacity [Mass/Vol] 312 ug/dL 232 - 386 ug/dL [facility] Iron/TIBC [Molar ratio] 20.5 % 15.0 - 57.0 % [facility] No Panel Informationon 02-20 [facility] Basic metabolic 2000 panelon 02-19-2025 Anion gap [Moles/Vol] 12 mmol/L Normal 8-15 [facility] Comment on above: Order Comment: Speci men Type: BLOOD SPECIMENOrdering Facility: [facility] Address: [address] [place] [address] Performed By: #### 2 4321-2, 34819-2 ####[facility] LABCLIA [id number] [place] [address] [place] Calcium [Mass/Vol] 9.5 mg/dL Normal 8.5-10.2 [facility] Comment on above: Order Comment: Speci men Type: BLOOD SPECIMENOrdering Facility: [facility] Address: [address] [place] [address] Performed By: #### 2 4321-2, 88773-9 ####[facility] LABCLIA [id number] [place] [id number] [place] Chloride [Moles/Vol] 100 mmol/L Normal 98-107 [facility] Comment on above: Order Comment: Speci men Type: BLOOD SPECIMENOrdering Facility: [facility] Address: [address] [place] [address] Performed By: #### 2 4321-2, 67455-2 ####[facility] LABIA [id number] [place] [id number] [place] CO2 [Moles/Vol] 23 mmol/L Normal 22-30 [facility] Comment on above: Order Comment: Speci men Type: BLOOD SPECIMENOrdering Facility: [facility] Address: [address] [place] [address] Performed By: #### 2 4321-2, 23890-3 ####[facility] [facility] [id number] [place] [id number] [place] Creatinine [Mass/Vol] 0.82 mg/dL Normal 0.58-0.96 [facility] Comment on above: Order Comment: Speci men Type: BLOOD SPECIMENOrdering Facility: [facility] Address: [address] [place] [address] Performed By: #### 2 4321-2, 54793-4 ####[facility] [id number] [place] [id number] [facility] Creatinine and Glomerular filtration rate.predicted panel (S/P/Bld) 72 mL/min/1.73m??? Normal >=60 [facility] Comment on above: Order Comment: Speci men Type: BLOOD SPECIMENOrdering Facility: [facility] Address: [address] [place] [address] Result Comment: Hina mated Glomerular Filtration Rate (eGFR) is calculated using the 2020 CKD-EPI creatinine equation. This equation utilizes serum creatinine, sex, and age as parameters. The creatinine assay has traceable calibration to isotope dilution-mass spectrometry. Refer to KDIGO guidelines for clinical interpretation. In patients with unstable renal function, e.g. those with acute kidney injury, the eGFR may not accurately reflect actual GFR. Performed By: #### 2 4321-2, 03026-2 ####[facility] LABIA [id number] [address] [address] [place] Glucose [Mass/Vol] 111 mg/dL High 74-99 [facility] Comment on above: Order Comment: Johanne soto Type: BLOOD SPECIMENOrdering Facility: [facility] Address: [address] [place] [address] Result Comment: The [place] [employer] (ADA) provides guidance for cutoff values for fasting glucose and random glucose. The ADA defines fasting as no caloric intake for at least 8 hours. Fasting plasma glucose results between 100 to 125 mg/dL indicate increased risk for diabetes (prediabetes). Fasting plasma glucose results greater than or equal to 126 mg/dL meet the criteria for diagnosis of diabetes. In the absence of unequivocal hyperglycemia, results should be confirmed by repeat testing. In a patient with classic symptoms of hyperglycemia or hyperglycemic crisis, random plasma glucose results greater than or equal to 200 mg/dL meet the criteria for diagnosis of diabetes. Reference: Standards of Medical Care in Diabetes 2016, [place] [employer]. Diabetes Care. 2016.39(Suppl 1). Performed By: #### 2 4321-2, 44868-4 ####[facility] LABIA [id number] [place] [id number] [place] Potassium [Moles/Vol] 4.1 mmol/L Normal 3.7-5.1 [facility] Comment on above: Order Comment: Johanne soto Type: BLOOD SPECIMENOrdering Facility: [facility] Address: [address] [place] [id number] Performed By: #### 2 4321-2, 33561-6 ####[facility] [id number] [place] [id number] [place] Sodium [Moles/Vol] 135 mmol/L Low 136-144 [facility] Comment on above: Order Comment: Johanne soto Type: BLOOD SPECIMENOrdering Facility: [facility] Address: [address] [place] [id number] Performed By: #### 2 4321-2, 05384-5 ####[facility] LABCLIA [id number] [place] [id number] [place] Urea nitrogen [Mass/Vol] 11 mg/dL Normal 7-21 [facility] Comment on above: Order Comment: Speci men Type: BLOOD SPECIMENOrdering Facility: [facility] Address: [address] [place] [address] Performed By: #### 2 4321-2, 19730-0 ####[facility] LABCLIA [id number] [place] [id number] [place] CBC W Auto Differential pane l (Bld)on 02-19-2025 Basophils (Bld) [#/Vol] 0.05 10*3/uL [facility] Basophils/100 WBC (Bld) 0.6 % [facility] Differential cell count method Nom (Bld) Auto [facility] Eosinophils (Bld) [#/Vol] 0.51 10*3/uL High [facility] Eosinophils/100 WBC (Bld) 6.1 % [facility] Erythrocyte distribution width (RBC) [Ratio] 12.4 % 11.5 - 15.0 % [facility] Hematocrit (Bld) [Volume fraction] 38.1 % 36.0 - 46.0 % [facility] Hemoglobin (Bld) [Mass/Vol] 13.1 g/dL 11.5 - 15.5 g/dL [facility] Immature granulocytes (Bld) [#/Vol] NINF [facility] Immature granulocytes/100 WBC (Bld) 0.2 % [facility] Interpretation and review of laboratory results Abnormal [facility] Lymphocytes (Bld) [#/Vol] 1.8 10*3/uL [facility] Lymphocytes/100 WBC (Bld) 21.6 % [facility] MCH (RBC) [Entitic mass] 31.3 pg 26.0 - 34.0 pg [facility] MCHC (RBC) [Mass/Vol] 34.4 g/dL 30.5 - 36.0 g/dL [facility] MCV (RBC) [Entitic vol] 90.9 fL 80.0 - 100.0 fL [facility] Monocytes (Bld) [#/Vol] 0.86 10*3/uL [facility] Monocytes/100 WBC (Bld) 10.3 % [facility] Neutrophils (Bld) [#/Vol] 5.09 10*3/uL [facility] Neutrophils/100 WBC (Bld) 61.2 % [facility] Nucleated RBC (Bld) [#/Vol] NINF [facility] Nucleated RBC/100 WBC (Bld) [Ratio] 0 % /100 WBC [facility] Platelet mean volume (Bld) [Entitic vol] 11.2 fL 9.0 - 12.7 fL [facility] Platelets (Bld) [#/Vol] 242 10*3/uL [facility] RBC (Bld) [#/Vol] 4.19 10*6/uL 3.90 - 5.2 0 m/uL [facility] WBC (Bld) [#/Vol] 8.33 10*3/uL [facility] Basophils (Bld) [#/Vol] 0.05 10*3/uL Normal <0.11 [facility] Comment on above: Order Comment: Speci men Type: BLOOD SPECIMENOrdering Facility: [facility] Address: [address] [place] [address] Performed By: #### 5 7021-8 ####[facility] LABIA [id number] [place] [address] [place] Basophils/100 WBC (Bld) 0.6 % Normal [facility] Comment on above: Order Comment: Speci men Type: BLOOD SPECIMENOrdering Facility: [facility] Address: [address] [place] [address] Performed By: #### 5 7021-8 ####[facility] LABIA [id number] [place] [address] [place] Differential cell count method Nom (Bld) Auto Normal [facility] Comment on above: Order Comment: Speci men Type: BLOOD SPECIMENOrdering Facility: [facility] Address: [address] [place] [address] Performed By: #### 5 7021-8 ####[facility] LABCLIA [id number] [address], [place] [address] [place] Eosinophils (Bld) [#/Vol] 0.51 10*3/uL High <0.46 [facility] Comment on above: Order Comment: Speci men Type: BLOOD SPECIMENOrdering Facility: [facility] Address: [address] [place] [address] Performed By: #### 5 7021-8 ####[facility] LABCLIA [id number] [address], [place] [address] [place] Eosinophils/100 WBC (Bld) 6.1 % Normal [facility] Comment on above: Order Comment: Speci men Type: BLOOD SPECIMENOrdering Facility: [facility] Address: [address] [place] [address] Performed By: #### 5 7021-8 ####[facility] LABCLIA [id number] [address], [facility] [place] Erythrocyte distribution width (RBC) [Ratio] 12.4 % Normal 11.5-15.0 [facility] Comment on above: Order Comment: Speci men Type: BLOOD SPECIMENOrdering Facility: [facility] Address: [address] [place] [address] Performed By: #### 5 7021-8 ####[facility] LABCLIA [id number] [address] [place] [address] [place] Hematocrit (Bld) [Volume fraction] 38.1 % Normal 36.0-46.0 [facility] Comment on above: Order Comment: Speci men Type: BLOOD SPECIMENOrdering Facility: [facility] Address: [address] [place] [address] Performed By: #### 5 7021-8 ####[facility] LABCLIA [id number] [address] [place] [address] [place] Hemoglobin (Bld) [Mass/Vol] 13.1 g/dL Normal 11.5-15.5 [facility] Comment on above: Order Comment: Speci men Type: BLOOD SPECIMENOrdering Facility: [facility] Address: [address] [place] [address] Performed By: #### 5 7021-8 ####[facility] LABCLIA [id number] [facility] [place] [address] [place] Immature granulocytes (Bld) [#/Vol] 10*3/uL Normal <0.10 [facility] Comment on above: Order Comment: Speci men Type: BLOOD SPECIMENOrdering Facility: [facility] Address: [address] [place] [address] Performed By: #### 5 7021-8 ####[facility] LABCLIA [id number] [place] [address] [place] Immature granulocytes/100 WBC (Bld) 0.2 % Normal [facility] Comment on above: Order Comment: Speci men Type: BLOOD SPECIMENOrdering Facility: [facility] Address: [address] [place] [address] Performed By: #### 5 7021-8 ####[facility] LABCLIA [id number] [place] [address] [place] Lymphocytes (Bld) [#/Vol] 1.80 10*3/uL Normal 1.00-4.00 [facility] Comment on above: Order Comment: Speci men Type: BLOOD SPECIMENOrdering Facility: [facility] Address: [address] [place] [address] Performed By: #### 5 7021-8 ####[facility] LABCLIA [id number] [place] [address] [place] Lymphocytes/100 WBC (Bld) 21.6 % Normal [facility] Comment on above: Order Comment: Speci men Type: BLOOD SPECIMENOrdering Facility: [facility] Address: [address] [place] [address] Performed By: #### 5 7021-8 ####[facility] LABIA [id number] [place] [address] [place] MCH (RBC) [Entitic mass] 31.3 pg Normal 26.0-34.0 [facility] Comment on above: Order Comment: Speci men Type: BLOOD SPECIMENOrdering Facility: [facility] Address: [address] [place] [address] Performed By: #### 5 7021-8 ####[facility] LABIA [id number] [place] [address] [place] MCHC (RBC) [Mass/Vol] 34.4 g/dL Normal 30.5-36.0 [facility] Comment on above: Order Comment: Speci men Type: BLOOD SPECIMENOrdering Facility: [facility] Address: [address] [place] [address] Performed By: #### 5 7021-8 ####[facility] LABIA [id number] [place] [address] [place] MCV (RBC) [Entitic vol] 90.9 fL Normal 80.0-100.0 [facility] Comment on above: Order Comment: Speci men Type: BLOOD SPECIMENOrdering Facility: [facility] Address: [address] [place] [address] Performed By: #### 5 7021-8 ####[facility] LABIA [id number] [place] [address] [place] Monocytes (Bld) [#/Vol] 0.86 10*3/uL Normal <0.87 [facility] Comment on above: Order Comment: Speci men Type: BLOOD SPECIMENOrdering Facility: [facility] Address: [address] [place] [address] Performed By: #### 5 7021-8 ####[facility] LABCLIA [id number] [place] [id number] [place] Monocytes/100 WBC (Bld) 10.3 % Normal [facility] Comment on above: Order Comment: Speci men Type: BLOOD SPECIMENOrdering Facility: [facility] Address: [address] [place] [address] Performed By: #### 5 7021-8 ####[facility] LABCLIA [id number] [place] [address] [place] Neutrophils (Bld) [#/Vol] 5.09 10*3/uL Normal 1.45-7.50 [facility] Comment on above: Order Comment: Speci men Type: BLOOD SPECIMENOrdering Facility: [facility] Address: [address] [place] [address] Performed By: #### 5 7021-8 ####[facility] LABIA [id number] [place] [address] [place] Neutrophils/100 WBC (Bld) 61.2 % Normal [facility] Comment on above: Order Comment: Speci men Type: BLOOD SPECIMENOrdering Facility: [facility] Address: [address] [place] [address] Performed By: #### 5 7021-8 ####[facility] LABIA [id number] [place] [address] [place] Nucleated RBC (Bld) [#/Vol] 10*3/uL Normal <0.01 [facility] Comment on above: Order Comment: Speci men Type: BLOOD SPECIMENOrdering Facility: [facility] Address: [address] [place] [address] Performed By: #### 5 7021-8 ####[facility] LABCLIA [id number] [place] [address] [place] Nucleated RBC/100 WBC (Bld) [Ratio] 0.0 /100 WBC Normal [facility] Comment on above: Order Comment: Speci men Type: BLOOD SPECIMENOrdering Facility: [facility] Address: [address] [place] [address] Performed By: #### 5 7021-8 ####[facility] LABIA [id number] [place] [address] [place] Platelet mean volume (Bld) [Entitic vol] 11.2 fL Normal 9.0-12.7 [facility] Comment on above: Order Comment: Speci men Type: BLOOD SPECIMENOrdering Facility: [facility] Address: [address] [place] [address] Performed By: #### 5 7021-8 ####[facility] LABIA [id number] [place] [address] [place] Platelets (Bld) [#/Vol] 242 10*3/uL Normal 150-400 [facility] Comment on above: Order Comment: Speci men Type: BLOOD SPECIMENOrdering Facility: [facility] Address: [address] [place] [address] Performed By: #### 5 7021-8 ####[facility] LABIA [id number] [place] [address] [place] RBC (Bld) [#/Vol] 4.19 10*6/uL Normal 3.90-5.20 [facility] Comment on above: Order Comment: Speci men Type: BLOOD SPECIMENOrdering Facility: [facility] Address: [address] [place] [address] Performed By: #### 5 7021-8 ####[facility] LABIA [id number] [place] [address] [place] WBC (Bld) [#/Vol] 8.33 10*3/uL Normal 3.70-11.00 [facility] Comment on above: Order Comment: Speci men Type: BLOOD SPECIMENOrdering Facility: [facility] Address: [address] [place] [address] Performed By: #### 5 7021-8 ####[facility] [id number] [address] [place] CNOVon 02-19-2025 CNOV Office Visit (FAMPWS ) CASANDRA HENRY ([id number]) 1940 F Date Time Provider Department 02/19/25 12:20 PM MARGOTH CHAVEZ During your visit today, we recorded the following information about you: Pulse Respiration Blood pressure Weight 68/minute 16/minute 170/80 64 kg Margoth Chavez APRN.[employer] 02/19/2025 5:54 PM Signed This is a 84 year old female who presents today with: Casandra Henry is an 84-year-old female with a history of HTN, presenting for evaluation of blood pressure fluctuations. HISTORY OF PRESENT ILLNESS: Hypertension: - Blood pressure readings have been fluctuating significantly, with recent readings ranging from 75/58 to 211/102 mmHg. - Notable readings include: - 150/86 mmHg last Wednesday. - 133/80 mmHg. - 120/68 mmHg last . - 211/102 mmHg on Wednesday, reduced to 201/96 mmHg after taking an extra pill. - 173/82 mmHg and 178/89 mmHg. - 150/79 mmHg on Wednesday. - 122/71 mmHg. - 149/77 mmHg. - 130/78 mmHg. - 75/58 mmHg morning, associated with lightheadedness and dizziness. - 183/89 mmHg later in the day. - Blood pressure fluctuations began approximately two years ago. - Recent medication changes include starting carvedilol about a week ago, replacing metoprolol - Currently taking losartan BID, around 0700 and 1900. - Took hydralazine once on Wednesday, with a second dose six hours later. - Reports feeling wiped out suddenly at times, requiring sitting down and resting - Denies chest pain. -had a cardiology follow ups after a hospital stay but currently, confirmed with last note, told her she no longer needed to follow up and that nephrology was following her. But last kidney function labs were good. - Previous thyroid medication dose was reduced from 100 mcg to 88 mcg during a hospital stay, but Dr. Cortez later increased it back to 100 mcg. - Reports increased swelling in legs over the past year, wearing compression socks today - Experiences fatigue, often correlating with blood pressure fluctuations. - Family history of low iron levels. - Recent stress due to 's hospitalization and gallbladder removal. -denies chest pain, shortness of breath, chronic headaches or vision changes but does feel when her BP goes high and doesn't feel well. Most Recent 02/21/22 - 02/19/25 02/14/24 09:52 03/23/24 08:11 04/28/24 08/08/24 08:52 12/25/24 02/05/25 08:41 02/19/25 12:35 BP 180/90 02/19/25 12:35 160/90 152/90 154/80 [1] 140/80 199/87 [2] 180/80 180/90 Note: Showing the most recent values for these dates. There are additional values that can be seen in Synopsis. [1] bp antonieta average [2] ANTONIETA BP average Recheck at end of visit: 170/80 PAST MEDICAL HISTORY: PAST MEDICAL HISTORY Diagnosis Date Acid reflux Hiatal hernia Hypertension Hypothyroid Palpitation PAST SURGICAL HISTORY Procedure Laterality Date CARPAL TUNNEL 2001 bilateral COLONOSCOPY FLX DX W/COLLJ SPEC WHEN PFRMD 12/05/2013 Colonoscopy done in [facility] FLX W/REMOVAL LESION BY HOT BX FORCEPS 02/19/[address] Catarino Salas LAPAROSCOPIC DUODENAL BIOPSY 02/13/2020 Catarino Salas MD; duodenal biopsy, gastric antrum biopsy, irregular GE junction bopsy, proximal gastric body soft tissue prominence biopsy all performed ALLERGIES Gluten and Milk Containing Products (Dairy) MEDICATIONS Current Outpatient Medications Medication Sig carvedilol (COREG) 12.5 mg tablet Take 1 tablet by mouth two times a day. For blood pressure hydrALAZINE (APRESOLINE) 25 mg tablet Take 1 tablet by mouth three times a day as needed (elevated blood pressure > 140/90). losartan (COZAAR) 50 mg tablet Take 1 tablet by mouth two times a day. SYNTHROID 100 mcg tablet Take 1 tablet by mouth once daily. Take on empty stomach furosemide (LASIX) 20 mg tablet Take 1 tablet by mouth every afternoon. multivit with iron,minerals (MULTIVITAMIN AND MINERALS ORAL) Take by mouth. No current facility-administered medications for this visit. FAMILY HISTORY Problem Relation Age of Onset Stroke Mother 84 Hypertension Mother Heart Mother Cancer Father Lung 75 Cancer Paternal Grandmother Hypertension Sister Hypertension Sister Diabetes Sister Diabetes Sister Kidney Disease Brother 74 Social History Tobacco Use Smoking status: Never Smokeless tobacco: Never Vaping Use Vaping status: Never Used Substance Use Topics Alcohol use: No Drug use: No REVIEW OF SYSTEMS Constitutional: (+) fatigue, (+) decreased sleep Cardiovascular: (+) bilateral lower extremity edema, (-) chest pain Neurological: (+) dizziness See HPI EXAM: BP 170/80 (BP Site: Right Arm, BP Position: Sitting) Pulse 68 Resp 16 Wt 64 kg (141 lb 3.2 oz) SpO2 98% BMI 26.25 kg/m? PHYSICAL EXAM: General Appearance: Well appearing, alert, in no acute distress (more content not included)... Normal [facility] Iron and Iron binding capaci ty panelon 02-19-2025 Iron [Mass/Vol] 64 ug/dL Normal 41-186 [facility] Comment on above: Order Comment: Speci men Type: BLOOD SPECIMENOrdering Facility: [facility] Address: [address] [place] [address] Performed By: #### 2 4321-2, 61070-5 ####[facility] LABCLIA [id number] [place] [address] [place] Iron binding capacity [Mass/Vol] 312 ug/dL Normal 232-386 [facility] Comment on above: Order Comment: Speci men Type: BLOOD SPECIMENOrdering Facility: [facility] Address: [address] [place] [address] Performed By: #### 2 4321-2, 45677-1 ####[facility] LABCLIA [id number] [place] [address] [place] Iron/TIBC [Molar ratio] 20.5 % Normal 15.0-57.0 [facility] Comment on above: Order Comment: Speci men Type: BLOOD SPECIMENOrdering Facility: [facility] Address: [address] [facility] [place] [address] Performed By: #### 2 4321-2, 80961-8 ####[facility] LABCLIA [id number] ELIZA HERMOSILLO [id number] [place] CNOVon 02-05-2025 CNOV Office Visit (FAMPWS ) CASANDRA HENRY ([id number]) 1940 F Date Time Provider Department 02/05/25 9:00 [facility] your visit today, we recorded the following information about you: Temperature Pulse Respiration Blood pressure 98.7 degrees 84/minute 20/minute 180/80 Weight 64.4 kg Sreekanth Cortez DO 02/05/2025 9:41 AM Signed STOP the metoprolol START on the Coreg 12.5 mg twice a day for BLOOD PRESSURE instead of the metoprolol OKAY to use the Hydralazine 25 mg medication as needed for BLOOD PRESSURE >140/90 Sreekanth Cortez DO 02/05/2025 11:04 AM Signed Subjective Casandra Henry is an 84-year-old female with a history of HTN and hypothyroidism, presenting for management of elevated blood pressure readings and associated symptoms. Hypertension: - Elevated blood pressure readings over the past few months, with systolic readings exceeding 200 mmHg on three occasions. otherwise 140-170s systolic, normal overall diastolic BP and heart rate normal - Current medications include metoprolol, losartan, and a diuretic lasix - Reports feeling tired and more anxious when blood pressure is elevated. - Experiencing mild pedal edema intermittently otherwise denies any CP or dyspnea or dizziness/LH - Diet low in sodium. Hypothyroidism: - Recently resumed 100 mcg dose of levothyroxine. - Reports an intermittent mild headache, which is unusual for her. Constitutional: (+) fatigue Head: (+) light headache Cardiovascular: (+) peripheral edema Musculoskeletal: (-) back pain Neurological: (+) gait disturbance, (+) foot paresthesia Psychiatric: (+) anxiety Objective Blood pressure 180/80, pulse 84, temperature 37.1 ?C (98.7 ?F), temperature source Left Tympanic, resp. rate 20, weight 64.4 kg (142 lb). GENERAL: NAD, alert and oriented. SKIN: Unremarkable, no rash or skin lesions. HEAD: Normocephalic. EYES: PERRLA, EOMI, conjunctiva clear. EARS: External ears normal, canals clear, TM's normal. NOSE/SINUSES: Nares normal. Septum midline. OROPHARYNX: Lips, mucosa, and tongue normal, good dentition. No oral lesions noted. NECK: Supple, no lymphadenopathy, normal thyroid, no carotid bruits. LUNGS: Clear to auscultation bilaterally, no wheezes/rhonchi/rales. HEART: Regular rate and rhythm, no murmurs. No ectopy. EXTREMITIES: Normal, no deformities, no skin discoloration, no edema. NEURO: Awake, alert and oriented x3, cranial nerves II-XII grossly intact, normal gait, no involuntary motions. Assessment AND Plan 1. Hypertension, essential (I10) - Blood pressure readings have been elevated, with recent measurements as high as 198/94 mmHg. - Discontinue metoprolol; initiated Coreg (carvedilol) as it offers cardioprotective, renoprotective, and neuroprotective benefits. - Prescribed PRN antihypertensive medication for acute management of elevated blood pressure episodes to prevent hospital visits and alleviate associated symptoms such as fatigue and anxiety. - Continue current losartan and diuretic therapy. - Patient understands and agrees with the treatment plan. 2. Stage 3a chronic kidney disease (HCC) (N18.31) - Coreg (carvedilol) initiated for its benefits. - Continue monitoring renal function. 3. Hypothyroidism, unspecified type (E03.9) - Currently on levothyroxine 100 mcg daily. - No changes to thyroid medication at this time; symptoms of fatigue and headaches likely secondary to hypertension. - Re-evaluate thyroid function tests at next follow-up. 4. Fatigue, unspecified type (R53.83) - Likely multifactorial, with contributions from elevated blood pressure and potential side effects of current medications. - Addressing hypertension with medication adjustments should help alleviate fatigue. 5. Dyslipidemia (E78.5) - Continue current lipid-lowering therapy. - Monitor lipid panel at next follow-up. 6. Hyponatremia (E87.1) - Maintain adequate dietary sodium intake. - Monitor serum sodium levels regularly. Recording using [employer] software for draft documentation of the visit was discussed with the patient/authorized underwriting account representative; all questions welcomed and answered. Patient/authorized underwriting account representative agreed to proceed Allergies As of Date: 02/05/2025 Noted Allergy Reaction GLUTEN 08/09/2023 3 - Cough MILK CONTAINING PRODUCTS (DAIRY) 08/09/2023 3 - Cough Date Reviewed: 12/25/2024 Reviewed by: Tammy Masterson LPN - Fully Assessed Reason for Visit: 6 Month Exam [189] Primary Visit Diagnosis:Hypertension , essential [I10] Other Visit Diagnoses:Stage 3a chronic kidney disease (HCC) [N18.31] Hypothyroidism, unspecified type [E03.9] Fatigue, unspecified type [R53.83] Dyslipidemia [E78.5] Hyponatremia [E87.1] Order(s):carvedilol (COREG) 12.5 mg tabletTake 1 tablet by mouth two times a day. For blood pressureDisp: 180 tabletRfl: 1 hydr (more content not included)... Normal [facility] CNOVon 12-25-2024 CNOV Office Visit (FAMJuneWS ) CASANDRA HENRY ([id number]) 1940 F Date Time Provider Department 12/25/24 1:20 PM MARIBETH GRIFFITHS During your visit today, we recorded the following information about you: Pulse Respiration Blood pressure Weight 71/minute 18/minute 199/87 64.1 kg Maribeth Griffiths APRN.CNP 12/25/2024 2:19 PM Signed 12/25/2024 Patient presents with: Blood Pressure SUBJECTIVE: This is a 84 year old that is here today for Above Complaints. Blood pressure has been elevated the last month or so. She reports this happened a couple of years ago and it was due to her thyroid. Checking BP at home with ranges of 110's-200/70-100's. Feel more jittery when BP up. Has had a light headache. Some times feels dizziness. Denies visual changes, slurred speech, facial drooping, extremity numbness, tingling or weakness PAST MEDICAL HISTORY Diagnosis Date Acid reflux Hiatal hernia Hypertension Hypothyroid Palpitation ALLERGIES Gluten and Milk Containing Products (Dairy) MEDICATIONS Current Outpatient Medications Medication Sig metoprolol succinate ER (TOPROL XL) 50 mg 24 hr tablet Take 1 tablet by mouth two times a day. furosemide (LASIX) 20 mg tablet Take 1 tablet by mouth every afternoon. SYNTHROID 100 mcg tablet Take 1 tablet by mouth once daily. Take on empty stomach losartan (COZAAR) 50 mg tablet Take 1 tablet by mouth two times a day. multivit with iron,minerals (MULTIVITAMIN AND MINERALS ORAL) Take by mouth. No current facility-administered medications for this visit. Medications and allergies reviewed by this provider. SOCIAL HISTORY Social History Tobacco Use Smoking status: Never Smokeless tobacco: Never Vaping Use Vaping status: Never Used Substance Use Topics Alcohol use: No Drug use: No REVIEW OF SYSTEMS All other reviewed and negative other than HPI. OBJECTIVE: BP 199/87 Pulse 71 Resp 18 Wt 64.1 kg (141 lb 6.4 oz) SpO2 96% BMI 26.28 kg/m? . Vital signs reviewed by this provider. APPEARANCE Well appearing, alert, in no acute distress, well-hydrated, well nourished. EYES conjunctiva and sclera normal. HEART RRR with normal S1 and S2, no murmurs, no gallops, no JVD appreciated LUNG clear to auscultation. No wheezes rhonchi or rales EXTREMITIES Extremities normal, No deformities, No skin discoloration, and No edema SKIN Skin color, texture, turgor normal, no suspicious rashes or lesions DTaP,Tdap,Td Vaccine(1 - Tdap) Never done RSV Vaccine(1 - 1-dose 75+ series) Never done Covid-19 Vaccine( season) due on 04/23/2024 Advance Directive Discussion Never done Depression Screening due on 02/13/2025 Anxiety Screening due on 02/13/2025 Diabetes Screening due on 11/17/2027 Bone Density Screening Completed Influenza Vaccine Completed Shingrix Vaccine Completed Pneumococcal Vaccine: 50+ Completed Colorectal Cancer Screening Discontinued ASSESSMENT/PLAN: 1. Hypertension, essential - ICD9: 401.9, ICD10: I10 - Uncontrolled - no red flag symptoms or exam findings - red flag symptoms discussed, verbalizes understanding - her home BP correlates with office cuff - Increase metoprolol succinate - Recommend home blood pressure monitoring, to bring results to next visit - Encouraged sodium restriction, DASH or Mediterranean diet - Recommend regular aerobic exercise - Follow up with BP as scheduled sooner if needed, to ER with red flag symptoms - METOPROLOL SUCCINATE ER 25 MG TABLET,EXTENDED RELEASE 24 HR Maribeth Griffiths APRN.CNP Prescription instructions reviewed with patient as applicable. Patient advised if symptoms do not improve or if symptoms worsen sooner, to contact their primary care physician. Potential red flag symptoms discussed with the patient. Reviewed appropriate action plan to take if red flag symptoms occur. Patient agreeable to treatment plan. Medical Decision Making: Problems: Moderate: 1+ chronic illnesses with change Risk: Moderate: Drug management Medical Decision Making Level: 4 - Moderate Maribeth Griffiths APRN.CNP 12/25/2024 1:52 PM Signed I have changed Metoprolol to 75 mg twice a day- you will need to take a 25 mg tablet along with a 50 mg tablet to equal 75 mg Allergies As of Date: 12/25/2024 Noted Allergy Reaction GLUTEN 08/09/2023 3 - Cough MILK CONTAINING PRODUCTS (DAIRY) 08/09/2023 3 - Cough Date Reviewed: 12/25/2024 Reviewed by: Tammy Masterson LPN - Fully Assessed Reason for Visit: Blood Pressure [15] Primary Visit Diagnosis:Hypertension , essential [I10] Order(s):metoprolol succinate ER (TOPROL XL) 25 mg 24 hr tabletTake one tablet twice a day along with 50 mg tablet to equal 75 mg twice a dayDisp: 180 tabletRfl: 1 Prescriptions as of 12/25/2024 - metoprolol succinate ER (TOPROL XL) 25 mg 24 hr tablet Take one tablet twice a day along with 50 mg tablet to equal 75 mg twice a (more content not included)... Normal [facility] CNPNon 12-25-2024 CNPN Telephone (FAMWS) ELAINECASANDRA ([id number]) 1940 F Date Time Provider Department 12/25/24 MARILYN GUTIERREZ [facility] During your visit today, we recorded the following information about you: Chyna Ramirez RN 12/25/2024 10:33 AM Signed Pt called in and reports her BP has been jumping all around in the upper limits. She states this morning it was 175/92 HR 65. Pt reports she has had BP of 202/98 HR 81, 170/85, and top # ranging from 140-170. Pt states her HR has been pretty consistent. Pt states she hasn't missed any of her BP medications, and tries to taker at the same time every day. Pt is going to bring her BP cuff with her to appointment tomorrow. On 11/28/24 Dr Cortez increased Pts metoprolol to 50 mg in AM and 50 mg in PM. Pt also takes: Furosemide 20 mg in afternoon Losartan 50 mg in am and pm Chyna Ramirez RN Allergies As of Date: 12/25/2024 Noted Allergy Reaction GLUTEN 08/09/2023 3 - Cough MILK CONTAINING PRODUCTS (DAIRY) 08/09/2023 3 - Cough Date Reviewed: 08/08/2024 Reviewed by: Gisselle Bush LPN - Fully Assessed Reason for Visit: Patient Update [1234] Appointment [186] Prescriptions as of 12/25/2024 - metoprolol succinate ER (TOPROL XL) 50 mg 24 hr tablet Take 1 tablet by mouth two times a day. - furosemide (LASIX) 20 mg tablet Take 1 tablet by mouth every afternoon. - SYNTHROID 100 mcg tablet Take 1 tablet by mouth once daily. Take on empty stomach - losartan (COZAAR) 50 mg tablet Take 1 tablet by mouth two times a day. - multivit with iron,minerals (MULTIVITAMIN AND MINERALS ORAL) Take by mouth. Problem List As Of Date 12/25/2024 Noted Resolved Essential hypertension [I10] 08/31/2016 Hypothyroidism [E03.9] 08/31/2016 Absolute anemia [D64.9] 12/13/2017 Hyperlipidemia, mixed [E78.2] 12/13/2017 Hypokalemia [E87.6] 12/26/2018 Anemia [D64.9] 12/26/2018 Hypertension, essential [I10] 12/26/2018 Vitamin D deficiency [E55.9] 06/28/2019 Stage 3a chronic kidney disease [N18.31] 07/26/2020 Dyslipidemia [E78.5] 01/24/2021 Bilateral leg edema [R60.0] 01/24/2021 Gastroesophageal reflux disease [K21.9] 09/01/2022 Dysuria [R30.0] 03/31/2023 Shakiness [R25.1] 07/14/2023 Fatigue [R53.83] 07/14/2023 Dizziness [R42] 07/14/2023 Hyponatremia [E87.1] 07/14/2023 Palpitation [R00.2] 08/09/2023 SVT (supraventricular tachycardia) [I47.10] 08/13/2023 External hemorrhoids [K64.4] 08/30/2023 Fiber deficiency [E63.8] 09/22/2023 Encounter Status:Closed by [facility] CASANDRA HENRY ([id number]) 1940 F Date Time Provider Department 11/21/24 [facility] During your visit today, we recorded the following information about you: Anita Guevara RN 11/21/2024 9:45 AM Signed Pt calling in with BP readings: November 12: 167/86 66 pm November 13: 160/76 74 am November 14: 156/79 77 am 175/85 76 pm November 15: 153/80 76 am 151/83 75 pm November 16: 137/73 75 am 158/82 70 pm November 18 145/76 75 am 156/91 78 pm Confirmed with pt that she is taking BP meds as directed: Furosemide 20 mg in afternoon Losartan 50 mg in am and pm Metoprolol Succinate ER 25 mg tab 1.5 tab in am and 1.5 tab in pm Pt wondering if her BP is still running higher than what Dr. Cortez would like. Sreekanth Cortez DO 11/28/2024 4:18 PM Signed Yes, this is still higher BLOOD PRESSURE than I would like Please apologize since I was out of office last week Option would be to increase her metoprolol to 50 mg in AM and 50 mg in PM If willing to do this, please load rx for me to send in DO James Mcgill Amanda, RN 11/28/2024 4:32 PM Signed Pt called and is notified of providers results and instructions. Pt voices understanding. Pt states she is ok with medication being sent in. She was asking if her Thyroid medication being too high could cause her BP to be elevated, I told her I would ask provider. The patient has been identified by name and date of : Yes Caregiver verified no other encounters exist for this prescription request: Yes Caregiver confirmed with patient/requestor that no other refills are due, in the near future, with this provider at this time: Yes The last office visit in the department: 08/08/2024 Does the patient have a future office visit with this provider/department: Yes 02/05/2025 Requested Prescriptions Pending Prescriptions Disp Refills metoprolol succinate ER (TOPROL XL) 50 mg 24 hr tablet 60 tablet Sig: Take 1 tablet by mouth two times a day. Chyna Ramirez RN November 28, 2024 4:27 PM Sreekanth Cortez DO 11/28/2024 4:39 PM Signed Her TSH and t4 being slightly off may contribute but not fully cause her BLOOD PRESSURE concern Sreekanth Cortez DO The following approved medication requests have been transmitted electronically. Requested Prescriptions Signed Prescriptions Disp Refills metoprolol succinate ER (TOPROL XL) 50 mg 24 hr tablet 180 tablet 1 Sig: Take 1 tablet by mouth two times a day. Authorizing Provider: SREEKANTH CORTEZ DO Longfellow, Krista, LPN 11/28/2024 4:44 PM Signed Pt notified of provider's message. Pt voiced understanding concerning medication. Farnaz Mays LPN Allergies As of Date: 11/21/2024 Noted Allergy Reaction GLUTEN 08/09/2023 3 - Cough MILK CONTAINING PRODUCTS (DAIRY) 08/09/2023 3 - Cough Date Reviewed: 08/08/2024 Reviewed by: Gisselle Bush LPN - Fully Assessed Reason for Visit: Patient Update [1234] Cmt: BP readings Order(s):metoprolol succinate ER (TOPROL XL) 50 mg 24 hr tabletTake 1 tablet by mouth two times a day.Disp: 180 tabletRfl: 1 Prescriptions as of 11/28/2024 - metoprolol succinate ER (TOPROL XL) 50 mg 24 hr tablet Take 1 tablet by mouth two times a day. - furosemide (LASIX) 20 mg tablet Take 1 tablet by mouth every afternoon. - SYNTHROID 100 mcg tablet Take 1 tablet by mouth once daily. Take on empty stomach - losartan (COZAAR) 50 mg tablet Take 1 tablet by mouth two times a day. - multivit with iron,minerals (MULTIVITAMIN AND MINERALS ORAL) Take by mouth. Problem List As Of Date 11/21/2024 Noted Resolved Essential hypertension [I10] 08/31/2016 Hypothyroidism [E03.9] 08/31/2016 Absolute anemia [D64.9] 12/13/2017 Hyperlipidemia, mixed [E78.2] 12/13/2017 Hypokalemia [E87.6] 12/26/2018 Anemia [D64.9] 12/26/2018 Hypertension, essential [I10] 12/26/2018 Vitamin D deficiency [E55.9] 06/28/2019 Stage 3a chronic kidney disease [N18.31] 07/26/2020 Dyslipidemia [E78.5] 01/24/2021 Bilateral leg edema [R60.0] 01/24/2021 Gastroesophageal reflux disease [K21.9] 09/01/2022 Dysuria [R30.0] 03/31/2023 Shakiness [R25.1] 07/14/2023 Fatigue [R53.83] 07/14/2023 Dizziness [R42] 07/14/2023 Hyponatremia [E87.1] 07/14/2023 Palpitation [R00.2] 08/09/2023 SVT (supraventricular tachycardia) [I47.10] 08/13/2023 External hemorrhoids [K64.4] 08/30/2023 Fiber deficiency [E63.8] 09/22/2023 Prescriptions ordered this encounter Disp Refills Start End METOPROLOL SUCCINATE ER 50 MG TABLET* 180 * 1 11/28/2024 Route: ORAL Sig: Take 1 tablet by mouth two times a day. Medications Discontinued During This Encounter Prescriptions - metoprolol succinate ER (TOPROL XL) 25 mg 24 hr tablet (Discontinued) Take 1.5 tablet PO in the AM and take 1.5 tablets PO in the PM Encounter Status:Closed by JOEL (more content not included)... Normal [facility] Basic metabolic 2000 panelon 11-16-2024 Anion gap [Moles/Vol] 11 mmol/L Normal 8-15 [facility] Comment on above: Order Comment: Speci men Type: BLOOD SPECIMENOrdering Facility: [address] Address: [address] [place] [address] Performed By: #### 3 016-3, 302-7, 25737-6 ####[employer] GENERAL LABORATORYCLIA [id number] [place] [address] [place] Calcium [Mass/Vol] 9.3 mg/dL Normal 8.5-10.2 [facility] Comment on above: Order Comment: Speci men Type: BLOOD SPECIMENOrdering Facility: [facility] Address: [address] [place] [address] Performed By: #### 3 016-3, 3024-7, 87602-6 ####[employer] GENERAL LABORATORYCLIA [id number] [place] [address] [place] Chloride [Moles/Vol] 102 mmol/L Normal 98-107 [facility] Comment on above: Order Comment: Speci men Type: BLOOD SPECIMENOrdering Facility: Address: [address] [place] [address] Performed By: #### 3 016-3, 7, 87898-7 ####[facility] LABORATORYCLIA [id number] [place] [id number] [place] OF [facility] CO2 [Moles/Vol] 25 mmol/L Normal 22-30 [facility] Comment on above: Order Comment: Speci men Type: BLOOD SPECIMENOrdering Facility: Address: [place] [address] Performed By: #### 3 016-3, 3024-02, ####[facility] LABORATORYCLIA [id number] [address] STATES OF [facility] Creatinine [Mass/Vol] 0.85 mg/dL Normal 0.58-0.96 [facility] Comment on above: Order Comment: Speci men Type: BLOOD SPECIMENOrdering Facility: Address: [facility] [place] [id number] Performed By: #### 3 016-3, 3024-02, ####[facility] LABORATORYCLIA [id number] [address] Creatinine and Glomerular filtration rate.predicted panel (S/P/Bld) 69 mL/min/1.73m??? Normal >=60 [facility] Comment on above: Order Comment: Speci men Type: BLOOD SPECIMENOrdering Facility: Address: [address] [place] [address] Result Comment: Hina mated Glomerular Filtration Rate (eGFR) is calculated using the 2020 CKD-EPI creatinine equation. This equation utilizes serum creatinine, sex, and age as parameters. The creatinine assay has traceable calibration to isotope dilution-mass spectrometry. Refer to KDIGO guidelines for clinical interpretation. In patients with unstable renal function, e.g. those with acute kidney injury, the eGFR may not accurately reflect actual GFR. Performed By: #### 3 016-3, 7, 90252-0 ####[facility] LABORATORYCLIA [id number] [place] [id number] [place] Glucose [Mass/Vol] 89 mg/dL Normal 74-99 [facility] Comment on above: Order Comment: Speci men Type: BLOOD SPECIMENOrdering Facility: [address] Address: [address] [place] [address] Result Comment: The [place] [employer] (ADA) provides guidance for cutoff values for fasting glucose and random glucose. The ADA defines fasting as no caloric intake for at least 8 hours. Fasting plasma glucose results between 100 to 125 mg/dL indicate increased risk for diabetes (prediabetes). Fasting plasma glucose results greater than or equal to 126 mg/dL meet the criteria for diagnosis of diabetes. In the absence of unequivocal hyperglycemia, results should be confirmed by repeat testing. In a patient with classic symptoms of hyperglycemia or hyperglycemic crisis, random plasma glucose results greater than or equal to 200 mg/dL meet the criteria for diagnosis of diabetes. Reference: Standards of Medical Care in Diabetes 2016, [place] [employer]. Diabetes Care. 2016.39(Suppl 1). Performed By: #### 3 016-3, 3024-7, ####[facility] LABORATORYCLIA [id number] [place] [address] [place] Potassium [Moles/Vol] 4.3 mmol/L Normal 3.7-5.1 [facility] Comment on above: Order Comment: Speci men Type: BLOOD SPECIMENOrdering Facility: [facility] Address: [address] [place] [address] Performed By: #### 3 016-3, 3024-02, 78487-6 ####[facility] LABORATORYCLIA [id number] [place] [address] [place] Sodium [Moles/Vol] 138 mmol/L Normal 136-144 [facility] Comment on above: Order Comment: Speci men Type: BLOOD SPECIMENOrdering Facility: [address] Address: [address] [place] [address] Performed By: #### 3 016-3, 3027, 38053-6 ####[employer] [facility] LABORATORYCLIA [id number] [place] [address] [place] Urea nitrogen [Mass/Vol] 8 mg/dL Normal 7-21 [facility] Comment on above: Order Comment: Speci men Type: BLOOD SPECIMENOrdering Facility: Address: [address] [place] [address] Performed By: #### 3 016-3, 3024-7, 73213-8 ####[facility] LABORATORYCLIA [id number] [place] [address] [place] Osmolality SerPlon Osmolality [Osmolality] 283 mosm/kg Normal 275-300 [facility] Comment on above: Order Comment: Speci men Type: BLOOD SPECIMENOrdering Facility: Address: [address] [place] [address] Performed By: #### 2 692-2 ####[facility] LABCLIA [id number] [place] [address] [place] Osmolality Uron 11-16-2024 Osmolality (U) [Osmolality] 210 mosm/kg Normal 50-1200 [facility] Comment on above: Order Comment: Speci men Type: URINE SPECIMENOrdering Facility: Address: [place] [address] Performed By: #### 2 695-5 ####[facility] LABCLIA [id number] [place] [id number] [place] Prot Ur-mCncon 11-16-2024 Protein (U) [Mass/Vol] 6 mg/dL Normal 0-20 [facility] Comment on above: Order Comment: Speci men Type: URINE SPECIMENOrdering Facility: Address: [place] [address] Performed By: #### 3 5678-2, 2888-6 ####[facility] LABCLIA [id number] [address] [address] [place] Sodium ?Tm Ur-sCncon 025 Sodium Unsp time (U) [Moles/Vol] 84 mmol/L Normal 14-216 [facility] Comment on above: Order Comment: Speci men Type: URINE SPECIMENOrdering Facility: Address: [address] [place] [address] Performed By: #### 3 5678-2, 2888-6 ####[facility] LABCLIA [id number] [place] [id number] [place] T4 Free SerPl-mCncon 025 Free T4 [Mass/Vol] 1.9 ng/dL High 0.9-1.7 [facility] Comment on above: Order Comment: Speci men Type: BLOOD SPECIMENOrdering Facility: [facility] Address: [address] [place] [address] Performed By: #### 3 016-3, 3024-7, 35525-1 ####[facility] LABORATORYCLIA [id number] [address] [place] TSH SerPl-aCncon 11-16-2024 TSH Qn 0.241 m[IU]/L Low 0.270-4.200 [facility] Comment on above: Order Comment: Speci men Type: BLOOD SPECIMENOrdering Facility: [facility] Address: [address] [place] [address] Performed By: #### 3 016-3, 3024-7, 27924-1 ####[facility] LABORATORYCLIA [id number] [address] [place] CNOVon 08-08-2024 CNOV Office Visit (FAMPWS ) CASANDRA HENRY ([id number]) 1940 F Date Time Provider Department 08/08/24 9:00 AM SREEKANTH CORTEZ FAMPWS During your visit today, we recorded the following information about you: Temperature Pulse Respiration Blood pressure 97.5 degrees 80/minute 16/minute 140/80 Weight 65.3 kg Sreekanth Cortez, DO 08/09/2024 7:16 AM Signed CC: Casandra Henry is a 84 year old female who presents to the office for follow up HPI: HTN, overall her readings have been mildly elevated recently in the 140-160s/70-90s range. She is asymptomatic. She is taking losartan as well as metoprolol twice a day. She is tolerating medications well without SE. She denies any CP or dyspnea or dizziness/LH or edema. Hx of VIOLA, has been eating a balanced diet She is trying to stay physically active with exercise and stretches but isn't always consistent with this. Hypothyroidism, she is taking her levothyroxine as prescribed PAST MEDICAL HISTORY Diagnosis Date Acid reflux Hiatal hernia Hypertension Hypothyroid Palpitation PAST SURGICAL HISTORY Procedure Laterality Date CARPAL TUNNEL 2000 bilateral COLONOSCOPY FLX DX W/COLLJ SPEC WHEN PFRMD 12/05/2013 Colonoscopy done in [facility] FLX W/REMOVAL LESION BY HOT BX FORCEPS 02/19/[address] Catarino Salas LAPAROSCOPIC DUODENAL BIOPSY 02/13/2020 Catarino Salas MD; duodenal biopsy, gastric antrum biopsy, irregular GE junction bopsy, proximal gastric body soft tissue prominence biopsy all performed Social History: Social History Tobacco Use Smoking status: Never Smokeless tobacco: Never Vaping Use Vaping status: Never Used Substance Use Topics Alcohol use: No Drug use: No FAMILY HISTORY Problem Relation Age of Onset Stroke Mother 84 Hypertension Mother Heart Mother Cancer Father Lung 75 Cancer Paternal Grandmother Hypertension Sister Hypertension Sister Diabetes Sister Diabetes Sister Kidney Disease Brother 74 Current Outpatient prescriptions: SYNTHROID 100 mcg tablet Take 1 tablet by mouth once daily. Take on empty stomach furosemide (LASIX) 20 mg tablet Take 1 tablet by mouth every afternoon. losartan (COZAAR) 50 mg tablet Take 1 tablet by mouth two times a day. metoprolol succinate ER (TOPROL XL) 25 mg 24 hr tablet Take 1 tablet PO in the AM and take 1.5 tablets PO in the PM multivit with iron,minerals (MULTIVITAMIN AND MINERALS ORAL) Take by mouth. Allergies: ALLERGIES Allergen Reactions Gluten Cough Milk Containing Pro* Cough ROS: See HPI PE: 08/08/24 08 BP: 140/80 Pulse: 80 Resp: 16 Temp: 36.4 ?C (97.5 ?F) TempSrc: Temporal Weight: 65.3 kg (144 lb) Gen: AANDO, NAD, non-toxic appearing, Pleasant, cooperative HEENT: NT/AC, PERRLA, EOMs intact b/l, nares clear and patent b/l, pharynx without erythema, exudate or lesions. Uvula midline. MMM, EACs without erythema or debris. TMs pearly bo with intact landmarks b/l. Neck: supple, No cervical LAD, no thyromegaly, no carotid bruits CV: RRR, normal S1 and S2, no murmurs, no gallops, no rubs, Pulses 2+ and symmetric in UE and LE b/l Lungs: normal respiratory effort, CTA b/l, no wheezing or rhonchi or rales Abd: soft, NT, ND, +BS, no hepatosplenomegaly MS: FROM all 4 extremities Neuro: CN II-XII intact b/l, strength 5/5 b/l UE and LE, DTRs 2/4 UE and LE, sensation intact. Skin: warm, dry, intact, No rashes or lesions on exposed skin. No edema, normal pulses ASSESSMENT/PLAN: 1. Hypothyroidism, unspecified type - ICD9: 244.9, ICD10: E03.9 (primary diagnosis) - Instructed patient on importance of taking on an empty stomach either first thing in the morning or at bedtime. - continue current dose of Synthroid 2. Hypertension, essential - ICD9: 401.9, ICD10: I10 - Worsening control - Factors affecting control: diet adherence and lack of exercise - Increase metoprolol succinate - Recommend home blood pressure monitoring, to bring results to next visit - Encouraged sodium restriction, DASH or Mediterranean diet - Recommend regular aerobic exercise 3. Stage 3a chronic kidney disease (HCC) - ICD9: 585.3, ICD10: N18.31 - eGFR: 69 Stable - Counseled on avoiding NSAIDs, adequate hydration - Counseled on low sodium diet 4. Other iron deficiency anemia - ICD9: 280.8, ICD10: D50.8 Stable, chronic 5. Dyslipidemia - ICD9: 272.4, ICD10: E78.5 - Control undetermined, due for labs - Continue current medications - Counseled on healthy diet and regular exercise 6. Vitamin D deficiency - ICD9: 268.9, ICD10: E55.9 Continue supplement 7. Fatigue, unspecified type - ICD9: 780.79, ICD10: R53.83 See above, chronic 8. Essential hypertension - ICD9: 401.9, ICD10: I10 - Worsening control - Increase metoprolol succinate - Recommend home blood pressure monitoring, to bring results (more content not included)... Normal [facility] 07-12-2024 SATISHN Telephone (FAMPWS) CASANDRA HENRY ([id number]) 1940 F Date Time Provider Department 07/12/24 [facility] During your visit today, we recorded the following information about you: Sergei Renner APRN.CNP 07/12/2024 12:23 PM Signed Her TSH level has improved but is still too high. The levothyroxine 88mcg is not enough. Would she be willing to try the 100mcg again if we order it to be dispensed as the name brand rather generic? Sometimes the reactions are from fillers that are in the generics. Sergei Renner APRN.Roxanne Dillon RN 07/12/2024 3:46 PM Signed Patient notified of results and provider's instructions. Patient verbalizes understanding. Patient states that she would be willing to try the brand name of levothyroxine 100 mcg. Patient uses [facility] as pharmacy. ENEDELIA Stearns Rebekah, APRN.CNP 07/13/2024 11:54 AM Signed SynthroidJUDITH sent. Recheck thyroid labs in about 6 weeks. The following approved medication requests have been transmitted electronically. Requested Prescriptions Signed Prescriptions Disp Refills SYNTHROID 100 mcg tablet 30 tablet 2 Sig: Take 1 tablet by mouth once daily. Take on empty stomach Authorizing Provider: SERGEI RENNER APRN.[employer] Roxanne Felix RN 07/13/2024 1:57 PM Signed Patient notified of provider's instructions and that prescription sent to pharmacy. Patient verbalizes understanding. Roxanne Felix RN Allergies As of Date: 07/12/2024 Noted Allergy Reaction GLUTEN 08/09/2023 3 - Cough MILK CONTAINING PRODUCTS (DAIRY) 08/09/2023 3 - Cough Date Reviewed: 04/28/2024 Reviewed by: Sergei Renner APRN.[employer] - Fully Assessed Reason for Visit: Results [95] Orders [681] Primary Visit Diagnosis:Hypothyroidi sm, unspecified type [E03.9] Order(s):SYNTHROID 100 mcg tabletTake 1 tablet by mouth once daily. Take on empty stomachDisp: 30 tabletRfl: 2 THYROID STIMULATING HORMONE [SQTSH] Order #: [id number] FUTURE T4 FREE/FREE THYROXINE [SQFT4] Order #: [id number] FUTURE Prescriptions as of 07/13/2024 - SYNTHROID 100 mcg tablet Take 1 tablet by mouth once daily. Take on empty stomach - furosemide (LASIX) 20 mg tablet Take 1 tablet by mouth every afternoon. - losartan (COZAAR) 50 mg tablet Take 1 tablet by mouth two times a day. - metoprolol succinate ER (TOPROL XL) 25 mg 24 hr tablet Take 1 tablet PO in the AM and take 1.5 tablets PO in the PM - multivit with iron,minerals (MULTIVITAMIN AND MINERALS ORAL) Take by mouth. Problem List As Of Date 07/12/2024 Noted Resolved Essential hypertension [I10] 08/31/2016 Hypothyroidism [E03.9] 08/31/2016 Absolute anemia [D64.9] 12/13/2017 Hyperlipidemia, mixed [E78.2] 12/13/2017 Hypokalemia [E87.6] 12/26/2018 Anemia [D64.9] 12/26/2018 Hypertension, essential [I10] 12/26/2018 Vitamin D deficiency [E55.9] 06/28/2019 Stage 3a chronic kidney disease [N18.31] 07/26/2020 Dyslipidemia [E78.5] 01/24/2021 Bilateral leg edema [R60.0] 01/24/2021 Gastroesophageal reflux disease [K21.9] 09/01/2022 Dysuria [R30.0] 03/31/2023 Shakiness [R25.1] 07/14/2023 Fatigue [R53.83] 07/14/2023 Dizziness [R42] 07/14/2023 Hyponatremia [E87.1] 07/14/2023 Palpitation [R00.2] 08/09/2023 SVT (supraventricular tachycardia) [I47.10] 08/13/2023 External hemorrhoids [K64.4] 08/30/2023 Fiber deficiency [E63.8] 09/22/2023 Prescriptions ordered this encounter Disp Refills Start End SYNTHROID 100 MCG TABLET 30 t* 2 07/13/2024 10/11/2024 Route: ORAL Sig: Take 1 tablet by mouth once daily. Take on empty stomach Medications Discontinued During This Encounter Prescriptions - levothyroxine (SYNTHROID) 100 mcg tablet (Discontinued) Take 1 tablet by mouth once daily. Take on empty stomach Encounter Status:Closed by ROXANNE FELIX on 07/13/24 Normal [facility] CBC panel Auto (Bld)on 07-10 Erythrocyte distribution width (RBC) [Ratio] 12.6 % Normal 11.5-15.0 [facility] Comment on above: Order Comment: Speci men Type: BLOOD SPECIMENOrdering Facility: [facility] Address: [address] [place] [address] Performed By: #### 5 8410-2 ####[facility] LABIA [id number] [place] [address] [place] Hematocrit (Bld) [Volume fraction] 41.8 % Normal 36.0-46.0 [facility] Comment on above: Order Comment: Speci men Type: BLOOD SPECIMENOrdering Facility: [facility] Address: [address] [place] [address] Performed By: #### 5 8410-2 ####[facility] LABCLIA [id number] [place] [address] [place] Hemoglobin (Bld) [Mass/Vol] 13.8 g/dL Normal 11.5-15.5 [facility] Comment on above: Order Comment: Speci men Type: BLOOD SPECIMENOrdering Facility: [facility] Address: [address] [place] [address] Performed By: #### 5 8410-2 ####[facility] LABIA [id number] [place] [address] [place] MCH (RBC) [Entitic mass] 30.8 pg Normal 26.0-34.0 [facility] Comment on above: Order Comment: Speci men Type: BLOOD SPECIMENOrdering Facility: [facility] Address: [address] [place] [address] Performed By: #### 5 8410-2 ####[facility] LABIA [id number] [place] [address] [place] MCHC (RBC) [Mass/Vol] 33.0 g/dL Normal 30.5-36.0 [facility] Comment on above: Order Comment: Speci men Type: BLOOD SPECIMENOrdering Facility: [facility] Address: [address] [place] [address] Performed By: #### 5 8410-2 ####[facility] LABIA [id number] [place] [address] [place] MCV (RBC) [Entitic vol] 93.3 fL Normal 80.0-100.0 [facility] Comment on above: Order Comment: Speci men Type: BLOOD SPECIMENOrdering Facility: [facility] Address: [address] [place] [address] Performed By: #### 5 8410-2 ####[facility] LABIA [id number] [place] [address] [place] Nucleated RBC (Bld) [#/Vol] 10*3/uL Normal <0.01 [facility] Comment on above: Order Comment: Speci men Type: BLOOD SPECIMENOrdering Facility: [facility] Address: [address] [place] [address] Performed By: #### 5 8410-2 ####[facility] LABCLIA [id number] [place] [address] [place] Platelet mean volume (Bld) [Entitic vol] 9.7 fL Normal 9.0-12.7 [facility] Comment on above: Order Comment: Speci men Type: BLOOD SPECIMENOrdering Facility: [facility] Address: [address] [place] [address] Performed By: #### 5 8410-2 ####[facility] LABCLIA [id number] [place] [address] [place] Platelets (Bld) [#/Vol] 294 10*3/uL Normal 150-400 [facility] Comment on above: Order Comment: Speci men Type: BLOOD SPECIMENOrdering Facility: [facility] Address: [address] [place] [address] Performed By: #### 5 8410-2 ####[facility] LABCLIA [id number] [place] [address] [place] RBC (Bld) [#/Vol] 4.48 10*6/uL Normal 3.90-5.20 [facility] Comment on above: Order Comment: Speci men Type: BLOOD SPECIMENOrdering Facility: [facility] Address: [address] [place] [address] Performed By: #### 5 8410-2 ####[facility] LABCLIA [id number] [place] [address] [place] WBC (Bld) [#/Vol] 9.66 10*3/uL Normal 3.70-11.00 [facility] Comment on above: Order Comment: Speci men Type: BLOOD SPECIMENOrdering Facility: [facility] Address: [address] [place] [address] Performed By: #### 5 8410-2 ####[facility] [id number] [place] [id number] [place] T4 Free SerPl-mCncon 024 Free T4 [Mass/Vol] 1.5 ng/dL Normal 0.9-1.7 [facility] Comment on above: Order Comment: Speci men Type: BLOOD SPECIMENOrdering Facility: [facility] Address: [address] [place] [address] Performed By: #### 3 024-7, 3016-3 ####[facility] [id number] [place] [address] [place] TSH SerPl-aCncon 07-10-2024 TSH Qn 4.450 m[IU]/L High 0.270-4.200 [facility] Comment on above: Order Comment: Speci men Type: BLOOD SPECIMENOrdering Facility: [facility] Address: [address] [place] [address] Performed By: #### 3 024-7, 3013 ####[facility] [id number] [address] [place] CNPLorelei 06-06-2024 [facility] CASANDRA HENRY ([id number]) 1940 F Date Time Provider Department 06/06[facility]24 [facility] During your visit today, we recorded the following information about you: Masood Wall RN 06/06/2024 1:42 PM Signed Patient phoned to say she has levothyroxine 88 mcg and 100 mcg. States she has been taking the 88 mcg for 2 weeks b/c she didn't feel well on the 100 mcg. Advised patient per 05-02-24 encounter, provider discontinued the 88 mcg and wanted patient to take the 100 mcg b/c her thyroid lab was high. Patient states she forgot about that, and will go back to taking the 100 mcg, will take for 4 more weeks then re-check labs. Sergei Renner APRN.SATISH 06/06/2024 2:58 PM Signed Noted, thank you. Sergei Renner APRN.SATISH Allergies As of Date: 06/06/2024 Noted Allergy Reaction GLUTEN 08/09/2023 3 - Cough MILK CONTAINING PRODUCTS (DAIRY) 08/09/2023 3 - Cough Date Reviewed: 04/28/2024 Reviewed by: Sergei Renner APRN.SATISH - Fully Assessed Reason for Visit: Medication Problem [65] Prescriptions as of 06/06/2024 - levothyroxine (SYNTHROID) 100 mcg tablet Take 1 tablet by mouth once daily. Take on empty stomach - furosemide (LASIX) 20 mg tablet Take 1 tablet by mouth every afternoon. - losartan (COZAAR) 50 mg tablet Take 1 tablet by mouth two times a day. - metoprolol succinate ER (TOPROL XL) 25 mg 24 hr tablet Take 1 tablet PO in the AM and take 1.5 tablets PO in the PM - multivit with iron,minerals (MULTIVITAMIN AND MINERALS ORAL) Take by mouth. Problem List As Of Date 06/06/2024 Noted Resolved Essential hypertension [I10] 08/31/2016 Hypothyroidism [E03.9] 08/31/2016 Absolute anemia [D64.9] 12/13/2017 Hyperlipidemia, mixed [E78.2] 12/13/2017 Hypokalemia [E87.6] 12/26/2018 Anemia [D64.9] 12/26/2018 Hypertension, essential [I10] 12/26/2018 Vitamin D deficiency [E55.9] 06/28/2019 Stage 3a chronic kidney disease [N18.31] 07/26/2020 Dyslipidemia [E78.5] 01/24/2021 Bilateral leg edema [R60.0] 01/24/2021 Gastroesophageal reflux disease [K21.9] 09/01/2022 Dysuria [R30.0] 03/31/2023 Shakiness [R25.1] 07/14/2023 Fatigue [R53.83] 07/14/2023 Dizziness [R42] 07/14/2023 Hyponatremia [E87.1] 07/14/2023 Palpitation [R00.2] 08/09/2023 SVT (supraventricular tachycardia) [I47.10] 08/13/2023 External hemorrhoids [K64.4] 08/30/2023 Fiber deficiency [E63.8] 09/22/2023 Encounter Status:Closed by SERGEI RENNER on 06/06/24 [facility] 05-02-2024 CNPN Telephone (FAMPWS) CASANDRA HENRY ([id number]) 1940 F Date Time Provider Department 05/02/24 SERGEI RENNER [facility] During your visit today, we recorded the following information about you: Sergei Renner APRN.CNP 05/02/2024 4:52 PM Signed Please let her know that I received her lab results. Her TSH thyroid level is high. This could have something to do with her feeling so poorly. I'm increasing her medication and then repeat her labs in 6 weeks. No other concerns. The following approved medication requests have been transmitted electronically. Requested Prescriptions Signed Prescriptions Disp Refills levothyroxine (SYNTHROID) 100 mcg tablet 30 tablet 2 Sig: Take 1 tablet by mouth once daily. Take on empty stomach Authorizing Provider: SERGEI RENNER APRN.Ai Chávez MA 05/02/2024 4:54 PM Signed Message left for pt to call back for results. Laura Macias MA, RN 05/02/2024 5:05 PM Signed Patient returned call and given provider's message below and patient verbalized understanding. Alfredo Lisa RN Allergies As of Date: 05/02/2024 Noted Allergy Reaction GLUTEN 08/09/2023 3 - Cough MILK CONTAINING PRODUCTS (DAIRY) 08/09/2023 3 - Cough Date Reviewed: 04/28/2024 Reviewed by: Sergei Renner APRN.[employer] - Fully Assessed Reason for Visit: Results [95] Orders [681] Primary Visit Diagnosis:Hypothyroidi sm, unspecified type [E03.9] Order(s):THYROID STIMULATING HORMONE [SQTSH] Order #: [id number] FUTURE T4 FREE/FREE THYROXINE [SQFT4] Order #: [id number] FUTURE levothyroxine (SYNTHROID) 100 mcg tabletTake 1 tablet by mouth once daily. Take on empty stomachDisp: 30 tabletRfl: 2 Prescriptions as of 05/02/2024 - levothyroxine (SYNTHROID) 100 mcg tablet Take 1 tablet by mouth once daily. Take on empty stomach - furosemide (LASIX) 20 mg tablet Take 1 tablet by mouth every afternoon. - losartan (COZAAR) 50 mg tablet Take 1 tablet by mouth two times a day. - metoprolol succinate ER (TOPROL XL) 25 mg 24 hr tablet Take 1 tablet PO in the AM and take 1.5 tablets PO in the PM - multivit with iron,minerals (MULTIVITAMIN AND MINERALS ORAL) Take by mouth. Problem List As Of Date 05/02/2024 Noted Resolved Essential hypertension [I10] 08/31/2016 Hypothyroidism [E03.9] 08/31/2016 Absolute anemia [D64.9] 12/13/2017 Hyperlipidemia, mixed [E78.2] 12/13/2017 Hypokalemia [E87.6] 12/26/2018 Anemia [D64.9] 12/26/2018 Hypertension, essential [I10] 12/26/2018 Vitamin D deficiency [E55.9] 06/28/2019 Stage 3a chronic kidney disease [N18.31] 07/26/2020 Dyslipidemia [E78.5] 01/24/2021 Bilateral leg edema [R60.0] 01/24/2021 Gastroesophageal reflux disease [K21.9] 09/01/2022 Dysuria [R30.0] 03/31/2023 Shakiness [R25.1] 07/14/2023 Fatigue [R53.83] 07/14/2023 Dizziness [R42] 07/14/2023 Hyponatremia [E87.1] 07/14/2023 Palpitation [R00.2] 08/09/2023 SVT (supraventricular tachycardia) [I47.10] 08/13/2023 External hemorrhoids [K64.4] 08/30/2023 Fiber deficiency [E63.8] 09/22/2023 Prescriptions ordered this encounter Disp Refills Start End LEVOTHYROXINE 100 MCG TABLET 30 t* 2 05/02/2024 07/31/2024 Route: ORAL Sig: Take 1 tablet by mouth once daily. Take on empty stomach Medications Discontinued During This Encounter Prescriptions - levothyroxine (SYNTHROID) 88 mcg tablet (Discontinued) Take 1 tablet by mouth once daily. Encounter Status:Closed by LAURA LISA on 05/02/24 [facility] CNOVbilly 04-28-2024 CNOV Office Visit (FAMPWS ) ANURAGTAMEKA ValdezA ([id number]) 1940 F Date Time Provider Department 04/28/24 7:20 AM SERGEI RENNER During your visit today, we recorded the following information about you: Pulse Respiration Blood pressure Weight 66/minute 16/minute 154/80 63.1 kg Sergei Renner APRN.CNP 04/28/2024 2:02 PM Signed Chief Complaint Patient presents with: BP Check: Reports elevated BP's at home, headaches and fatigue HPI Casandra Anuragjennifer is a 84 year old female who presents here today for Above Complaints.. BP-has been elevated. On Wednesday evening was 170's/90's. Typically will be in 150's systolic. Sx-overall just has a feeling of feeling a little bit off. Slight headache. No increased stress lately. No precipitating factors, cannot pinpoint specific time of day. Denies any new stressors in her life, no new medications or supplements. Denies CP, SOB, or palpitations. Typically nephrology takes care of her BP medications. Sees Dr. Stoney Ray, he comes to [facility] once a week on Wednesdays. Past medical history, appointments, medications, allergies reviewed. Previous Medical History PAST MEDICAL HISTORY No date: Acid reflux No date: Hiatal hernia No date: Hypertension No date: Hypothyroid No date: Palpitation Previous Surgical History PAST SURGICAL HISTORY 2000: CARPAL TUNNEL Comment: bilateral 12/05/2013: COLONOSCOPY FLX DX W/COLLJ SPEC WHEN PFRMD Comment: Colonoscopy done in [place] 02/19/2020: COLSC FLX W/REMOVAL LESION BY HOT BX FORCEPS Comment: Performed by Dr. Catarino Salas 02/13/2020: LAPAROSCOPIC DUODENAL BIOPSY Comment: Catarino Salas MD; duodenal biopsy, gastric antrum biopsy, irregular GE junction bopsy, proximal gastric body soft tissue prominence biopsy all performed Family History FAMILY HISTORY Problem Relation Age of Onset Stroke Mother 84 Hypertension Mother Heart Mother Cancer Father Lung 75 Cancer Paternal Grandmother Hypertension Sister Hypertension Sister Diabetes Sister Diabetes Sister Kidney Disease Brother 74 Patient Allergies ALLERGIES Allergen Reactions Gluten Cough Milk Containing Pro* Cough Current Medications Current Outpatient Medications on File Prior to Visit Medication Sig furosemide (LASIX) 20 mg tablet Take 1 tablet by mouth every afternoon. losartan (COZAAR) 50 mg tablet Take 1 tablet by mouth two times a day. metoprolol succinate ER (TOPROL XL) 25 mg 24 hr tablet Take 1 tablet PO in the AM and take 1.5 tablets PO in the PM levothyroxine (SYNTHROID) 88 mcg tablet Take 1 tablet by mouth once daily. multivit with iron,minerals (MULTIVITAMIN AND MINERALS ORAL) Take by mouth. ferrous sulfate 325 mg (65 mg iron) tablet Take 325 mg by mouth two times a day with meals. spironolactone (ALDACTONE) 25 mg tablet Take 1 tablet by mouth once daily. (Patient not taking: Reported on 03/23/2024) No current facility-administered medications on file prior to visit. Social History Social History Tobacco Use Smoking status: Never Smokeless tobacco: Never Vaping Use Vaping status: Never Used Substance Use Topics Alcohol use: No Drug use: No Review of Symptoms REVIEW OF SYSTEMS See HPI, otherwise negative EXAM: BP 158/90 (BP Site: Left Arm, BP Position: Sitting, BP Cuff Size: Regular Adult) Pulse 66 Resp 16 Wt 63.1 kg (139 lb 3.2 oz) SpO2 97% BMI 25.88 kg/m? General Appearance: Well appearing, alert, in no acute distress, well-hydrated, well nourished.. Lungs: Lungs clear to auscultation. No wheezing, rhonchi, rales.. Heart: RRR without murmur, gallop, or rubs. No ectopy. Psychiatric: pleasant, cooperative. Health Maintenance List Advance Directive Discussion Never done Covid-19 Vaccine(4 - season) due on 04/23/2024 Influenza Vaccine(1) due on 04/23/2024 DTaP,Tdap,Td Vaccine(1 - Tdap) due on 05/17/2024 RSV Vaccine(1 - 1-dose 60+ series) due on 08/20/2024 Depression Screening due on 02/13/2025 Anxiety Screening due on 02/13/2025 Diabetes Screening due on 02/09/2027 Bone Density Screening Completed Shingrix Vaccine Completed Pneumococcal Vaccine: 65+ Completed Colorectal Cancer Screening Discontinued Data reviewed Previous records, office notes ASSESSMENT/PLAN: 1. Hypertension, essential - ICD9: 401.9, ICD10: I10 (primary diagnosis) - Uncontrolled - Encouraged sodium restriction, DASH or Mediterranean diet - will contact Dr. Stoney Ray's office for recommendations. - LEVOTHYROXINE 88 MCG TABLET - THYROID STIMULATING HORMONE - T4 FREE/FREE THYROXINE - COMPLETE BLOOD COUNT - COMPREHENSIVE METABOLIC PANEL - FUROSEMIDE 20 MG TABLET 2. Stage 3a chronic kidney disease (HCC) - ICD9: 585.3, ICD10: N18.31 - will contact Dr. Stoney Ray's office for recommendations. - LEVOTHYROXINE (more content not included)... Normal [facility] 04-28-2024 CNPN Telephone (FAMPWS) CASANDRA HENRY ([id number]) 1940 F Date Time Provider Department 04/28/24 SERGEI RENNER During your visit today, we recorded the following information about you: Sergei Renner APRN.SATISH 04/28/2024 1:57 PM Signed Please contact Dr. Stoney Ray's office, this is her senior contracts manager, outside of [facility]. Patient's blood pressure at home as well as in the office has been running 150-170's/90-110's. HR typically 60-70's. She complains of a mild headache, but overall just feeling not quite right. She is currently taking furosemide 20mg in the afternoon, losartan 50mg bid, metoprolol succinate 25mg in the morning AND 37.5mg at nighttime. Would he like me to make any changes to this regimen or add anything? Thanks Sergei Renner APRN.Silvana Doe MA 04/28/2024 2:22 PM Signed Attempted to contact office and speak with MA/Nurse but line rings busy. Will need to try again. RUBY Beth Jazzmin, MA 05/02/2024 3:17 PM Signed Nephrology office will contact our office back and ask to speak with triage nurse for provider message. Please see RS note below. RUBY Beth Jazzmin, MA 05/04/2024 3:00 PM Signed Nurse Lili notified of provider message. She will relay info to Dr. Ray and contact office with provider response. Silvana Rousseau MA Allergies As of Date: 04/28/2024 Noted Allergy Reaction GLUTEN 08/09/2023 3 - Cough MILK CONTAINING PRODUCTS (DAIRY) 08/09/2023 3 - Cough Date Reviewed: 04/28/2024 Reviewed by: Sergei Renner APRN.SATISH - Fully Assessed Reason for Visit: contact outside provider [Other] Prescriptions as of 07/19/2024 - SYNTHROID 100 mcg tablet Take 1 tablet by mouth once daily. Take on empty stomach - furosemide (LASIX) 20 mg tablet Take 1 tablet by mouth every afternoon. - losartan (COZAAR) 50 mg tablet Take 1 tablet by mouth two times a day. - metoprolol succinate ER (TOPROL XL) 25 mg 24 hr tablet Take 1 tablet PO in the AM and take 1.5 tablets PO in the PM - multivit with iron,minerals (MULTIVITAMIN AND MINERALS ORAL) Take by mouth. Problem List As Of Date 04/28/2024 Noted Resolved Essential hypertension [I10] 08/31/2016 Hypothyroidism [E03.9] 08/31/2016 Absolute anemia [D64.9] 12/13/2017 Hyperlipidemia, mixed [E78.2] 12/13/2017 Hypokalemia [E87.6] 12/26/2018 Anemia [D64.9] 12/26/2018 Hypertension, essential [I10] 12/26/2018 Vitamin D deficiency [E55.9] 06/28/2019 Stage 3a chronic kidney disease [N18.31] 07/26/2020 Dyslipidemia [E78.5] 01/24/2021 Bilateral leg edema [R60.0] 01/24/2021 Gastroesophageal reflux disease [K21.9] 09/01/2022 Dysuria [R30.0] 03/31/2023 Shakiness [R25.1] 07/14/2023 Fatigue [R53.83] 07/14/2023 Dizziness [R42] 07/14/2023 Hyponatremia [E87.1] 07/14/2023 Palpitation [R00.2] 08/09/2023 SVT (supraventricular tachycardia) [I47.10] 08/13/2023 External hemorrhoids [K64.4] 08/30/2023 Fiber deficiency [E63.8] 09/22/2023 Encounter Status:Closed by DONITA ESTES on 07/19/24 Normal [facility] Comprehensive metabolic 2000 panelon 04-28-2024 Albumin [Mass/Vol] 4.4 g/dL Normal 3.9-4.9 [facility] Comment on above: Order Comment: Speci men Type: BLOOD SPECIMENOrdering Facility: [facility] Address: [address] [place], [place] [id number] Performed By: #### 3 024-7, 3016-3, 99602-3, 71537-8 ####[facility] LABCLIA [id number] [place] [address] [place] ALP [Catalytic activity/Vol] 133 U/L High 34-123 [facility] Comment on above: Order Comment: Speci men Type: BLOOD SPECIMENOrdering Facility: [facility] Address: [address] [place] [address] Performed By: #### 3 024-7, 3016-3, 29861-1, 56718-0 ####[facility] LABCLIA [id number] [place] [address] [place] ALT [Catalytic activity/Vol] 14 U/L Normal 7-38 [facility] Comment on above: Order Comment: Speci men Type: BLOOD SPECIMENOrdering Facility: [facility] Address: [address] [place] [address] Performed By: #### 3 024-7, 3016-3, 26621-6, 93550-7 ####[facility] LABIA [id number] [place] [address] [place] Anion gap [Moles/Vol] 14 mmol/L Normal 8-15 [facility] Comment on above: Order Comment: Speci men Type: BLOOD SPECIMENOrdering Facility: [facility] Address: [address] [place] [address] Performed By: #### 3 024-7, 3016-3, 94002-4, 50455-2 ####[facility] LABCLIA [id number] [place] [address] [place] AST [Catalytic activity/Vol] 20 U/L Normal 13-35 [facility] System Comment on above: Order Comment: Speci men Type: BLOOD SPECIMENOrdering Facility: [facility] Address: [address] [place] [address] Performed By: #### 3 024-7, 3016-3, 10590-7, 48370-3 ####[facility] LABCLIA [id number] [place] [address] [place] Bilirubin [Mass/Vol] 1.4 mg/dL High 0.2-1.3 [facility] Comment on above: Order Comment: Speci men Type: BLOOD SPECIMENOrdering Facility: [facility] Address: [address] [place] [address] Performed By: #### 3 024-7, 3016-3, 78913-2, 94681-9 ####[facility] LABCLIA [id number] [place] [address] [place] Calcium [Mass/Vol] 9.7 mg/dL Normal 8.5-10.2 [facility] Comment on above: Order Comment: Speci men Type: BLOOD SPECIMENOrdering Facility: [facility] Address: [address] [place] [address] Performed By: #### 3 024-7, 3016-3, 62456-8, 82263-8 ####[facility] LABCLIA [id number] [place] [address] [place] Chloride [Moles/Vol] 97 mmol/L Low 98-107 [facility] Comment on above: Order Comment: Speci men Type: BLOOD SPECIMENOrdering Facility: [facility] Address: [address] [place] [address] Performed By: #### 3 024-7, 3016-3, 20440-6, 25013-9 ####[facility] LABCLIA [id number] [place] [address] [place] CO2 [Moles/Vol] 25 mmol/L Normal 22-30 [facility] Comment on above: Order Comment: Speci men Type: BLOOD SPECIMENOrdering Facility: [facility] Address: [address] [place] [address] Performed By: #### 3 024-7, 3016-3, 75552-2, 30090-7 ####[facility] LABCLIA [id number] [address] [address] [place] Creatinine [Mass/Vol] 0.85 mg/dL Normal 0.58-0.96 [facility] Comment on above: Order Comment: Johanne soto Type: BLOOD SPECIMENOrdering Facility: [facility] Address: [address] [place] [address] Performed By: #### 3 024-7, 3016-3, 68612-1, 35092-0 ####[facility] LABCLIA [id number] [place] [address] [place] Creatinine and Glomerular filtration rate.predicted panel (S/P/Bld) 69 mL/min/1.73m??? Normal >=60 [facility] Comment on above: Order Comment: Johanne soto Type: BLOOD SPECIMENOrdering Facility: [facility] Address: [address] [place] [address] Result Comment: Hina mated Glomerular Filtration Rate (eGFR) is calculated using the 2020 CKD-EPI creatinine equation. This equation utilizes serum creatinine, sex, and age as parameters. The creatinine assay has traceable calibration to isotope dilution-mass spectrometry. Refer to KDIGO guidelines for clinical interpretation. In patients with unstable renal function, e.g. those with acute kidney injury, the eGFR may not accurately reflect actual GFR. Performed By: #### 3 024-7, 3016-3, 09572-3, 38805-7 ####[facility] LABCLIA [id number] [place] [address] [place] Glucose [Mass/Vol] 93 mg/dL Normal 74-99 [facility] Comment on above: Order Comment: Johanne charles Type: BLOOD SPECIMENOrdering Facility: [facility] Address: [address] [place] [address] Result Comment: The [place] [employer] (ADA) provides guidance for cutoff values for fasting glucose and random glucose. The ADA defines fasting as no caloric intake for at least 8 hours. Fasting plasma glucose results between 100 to 125 mg/dL indicate increased risk for diabetes (prediabetes). Fasting plasma glucose results greater than or equal to 126 mg/dL meet the criteria for diagnosis of diabetes. In the absence of unequivocal hyperglycemia, results should be confirmed by repeat testing. In a patient with classic symptoms of hyperglycemia or hyperglycemic crisis, random plasma glucose results greater than or equal to 200 mg/dL meet the criteria for diagnosis of diabetes. Reference: Standards of Medical Care in Diabetes 2016, [place] [employer]. Diabetes Care. 2016.39(Suppl 1). Performed By: #### 3 024-7, 3016-3, 76280-1, 97500-6 ####[facility] LABCLIA [id number] [place] [address] [place] Potassium [Moles/Vol] 4.2 mmol/L Normal 3.7-5.1 [facility] Comment on above: Order Comment: Speci men Type: BLOOD SPECIMENOrdering Facility: [facility] Address: [address] [place] [address] Performed By: #### 3 024-7, 3016-3, 26594-9, 10900-6 ####[facility] LABIA [id number] [place] [address] [place] Protein [Mass/Vol] 7.1 g/dL Normal 6.3-8.0 [facility] Comment on above: Order Comment: Speci men Type: BLOOD SPECIMENOrdering Facility: [facility] Address: [address] [place] [address] Performed By: #### 3 024-7, 3016-3, 21723-4, 73979-8 ####[facility] LABIA [id number] [place] [address] [place] Sodium [Moles/Vol] 136 mmol/L Normal 136-144 [facility] Comment on above: Order Comment: Speci men Type: BLOOD SPECIMENOrdering Facility: [facility] Address: [address] [place] [address] Performed By: #### 3 024-7, 3016-3, 05545-9, 49060-6 ####[facility] LABCLIA [id number] [place] [address] [place] Urea nitrogen [Mass/Vol] 12 mg/dL Normal 7-21 [facility] Comment on above: Order Comment: Speci men Type: BLOOD SPECIMENOrdering Facility: [facility] Address: [address] [place] [address] Performed By: #### 3 024-7, 3016-3, 54537-3, 57917-4 ####[facility] LABCLIA [id number] [place] [address] [place] Ferritin SerPl-mCncon 2023 Ferritin [Mass/Vol] 138.0 ng/mL Normal 14.7-205.1 [facility] Comment on above: Order Comment: Speci men Type: BLOOD SPECIMENOrdering Facility: [facility] Address: [address] [place] [address] Performed By: #### 2 276-4 ####[facility] LABCLIA [id number] [place] [address] [place] Iron and Iron binding capaci ty panelon 04-28-2024 Iron [Mass/Vol] 103 ug/dL Normal 41-186 [facility] Comment on above: Order Comment: Speci men Type: BLOOD SPECIMENOrdering Facility: [facility] Address: [address] [place] [address] Performed By: #### 3 024-7, 3016-3, 13523-3, 81501-5 ####[facility] LABCLIA [id number] [place] [address] [place] Iron binding capacity [Mass/Vol] 320 ug/dL Normal 232-386 [facility] Comment on above: Order Comment: Speci men Type: BLOOD SPECIMENOrdering Facility: [facility] Address: [address] [place] [address] Performed By: #### 3 024-7, 3016-3, 80605-5, 00377-9 ####[facility] LABCLIA [id number] [place] [address] [place] Iron/TIBC [Molar ratio] 32.2 % Normal 15.0-57.0 [facility] Comment on above: Order Comment: Speci men Type: BLOOD SPECIMENOrdering Facility: [facility] Address: [address] [place] [address] Performed By: #### 3 024-7, 3016-3, 29458-5, 65485-4 ####[facility] LABCLIA [id number] [place] [address] [place] T4 Free SerPl-mCncon 024 Free T4 [Mass/Vol] 1.2 ng/dL Normal 0.9-1.7 [facility] Comment on above: Order Comment: Speci men Type: BLOOD SPECIMENOrdering Facility: [facility] Address: [address] [place] [address] Performed By: #### 3 024-7, 3016-3, 73203-1, 60723-8 ####[facility] LABCLIA [id number] [place] [address] [place] TSH SerPl-aCncon 04-28-2024 TSH Qn 6.310 m[IU]/L High 0.270-4.200 [facility] Comment on above: Order Comment: Speci men Type: BLOOD SPECIMENOrdering Facility: [facility] Address: [address] [place] [address] Performed By: #### 3 024-7, 3016-3, 33701-1, 77329-5 ####[facility] LABIA [id number] [address] [place] CNOVon 03-23-2024 CNOV Office Visit ([facility] ) CASANDRA HENRY ([id number]) 1940 F Date Time Provider Department 03/23/24 8:20 AM DELILAH TRAORE During your visit today, we recorded the following information about you: Pulse Blood pressure Weight Height 67/minute 152/90 63 kg 1.562 m Delilah Traore DO 03/23/2024 8:41 AM Signed [facility]ARD[facility]ICINE CONSULT NOTE Casnadra Henry [id number] PRIMARY SERVICE: Internal Medicine CONSULTING SERVICE: Cardiovascular Medicine: DATE OF ADMISSION: (Not on file) [facility] 08/11/2023 HISTORY OF PRESENT ILLNESS Casandra Henry is a 84 year old female with a history of hypothyroidsm, HTN, GERD, and anxiety, who presents for follow-up of palpitation and dizziness. She has had a finding of low TSH and elevated free t4- she has been adjusting down her levothyroxine. She was taken off spironolactone as her potassium was high. She had a 14 day ZIO monitor-07/2023 with no symptom-rhythm correlation with her multiple symptoms of dizziness, lightheadedness, racing heartbeat, and fluttering.. She had worsening hyponatremia which she sees nephrology for and was suppose to start salt tabs. Prior Na of 126, potasisum improved from 08/04/23 was 5.6. PAST MEDICAL HISTORY PAST MEDICAL HISTORY No date: Acid reflux No date: Hiatal hernia No date: Hypertension No date: Hypothyroid No date: Palpitation PAST SURGICAL HISTORY 2000: CARPAL TUNNEL Comment: bilateral 12/05/2013: COLONOSCOPY FLX DX W/COLLJ SPEC WHEN PFRMD Comment: Colonoscopy done in [place] 02/19/2020: COLSC FLX W/REMOVAL LESION BY HOT BX FORCEPS Comment: Performed by Dr. Catarino Salas 02/13/2020: LAPAROSCOPIC DUODENAL BIOPSY Comment: Catarino Salas MD; duodenal biopsy, gastric antrum biopsy, irregular GE junction bopsy, proximal gastric body soft tissue prominence biopsy all performed FAMILY HISTORY FAMILY HISTORY Problem Relation Age of Onset Stroke Mother 84 Hypertension Mother Heart Mother Cancer Father Lung 75 Cancer Paternal Grandmother Hypertension Sister Hypertension Sister Diabetes Sister Diabetes Sister Kidney Disease Brother 74 SOCIAL HISTORY Social History Tobacco Use Smoking status: Never Smokeless tobacco: Never Vaping Use Vaping Use: Never used Substance Use Topics Alcohol use: No Drug use: No HOME MEDICATIONS furosemide (LASIX) 20 mg tablet Take 1 tablet by mouth every afternoon. metoprolol succinate ER (TOPROL XL) 25 mg 24 hr tablet Take 1 tablet PO in the AM and take 1.5 tablets PO in the PM levothyroxine (SYNTHROID) 88 mcg tablet Take 1 tablet by mouth once daily. losartan (COZAAR) 25 mg tablet Take 1 tablet by mouth two times a day. multivit with iron,minerals (MULTIVITAMIN AND MINERALS ORAL) Take by mouth. spironolactone (ALDACTONE) 25 mg tablet Take 1 tablet by mouth once daily. (Patient not taking: Reported on 03/23/2024) ferrous sulfate 325 mg (65 mg iron) tablet Take 1 tablet by mouth twice daily with meals. (Patient not taking: Reported on 03/23/2024) INPATIENT MEDICATIONS No current facility-administered medications for this visit. ALLERGIES ALLERGIES Allergen Reactions Gluten Cough Milk Containing Pro* Cough COMPLETE REVIEW OF SYSTEMS Constitutional: No weight loss, malaise or fevers. HEENT: Negative for frequent or significant headaches Respiratory: Negative for cough, wheezing, or shortness of breath Cardiovascular: Negative for chest pain, leg swelling Gastrointestinal: Negative for abdominal discomfort, blood in stools or black stools or change in bowel habits Genitourinary: No history of dysuria, frequency, or incontinence Endocrine: Negative for cold or heat intolerance, polyuria, polydipsia and goiter Hematologic: Negative for prolonged bleeding, bruising easily or swollen nodes Neurologic: No history or headaches, syncope, paralysis, seizures or tremors Integumentary: Negative for lesions, rash, and itching. PHYSICAL EXAM BP 152/90 Pulse 67 Ht 156.2 cm (5' 1.5) Wt 63 kg (138 lb 14.2 oz) SpO2 97% BMI 25.82 kg/m? General Appearance: Well developed HEENT: PERRLA and EOM's intact Lungs: Clear Heart: Regular rate AND rhythm, No heaves, No lifts, No thrills, No rubs, and S1, S2 normal Abdomen: Soft and Non-tender Skin: Warm and Dry Musculoskeletal: No deformities Neurologic/Psychiatric : Oriented to time, place AND person and Alert DATA Laboratory: Cholesterol, Total (mg/dL) Date Value 10/07/2023 171 01/13/2021 194 HDL Cholesterol (mg/dL) Date Value 10/07/2023 58 01/13/2021 53 LDL Cholesterol (mg/dL) Date Value 10/07/2023 92 01/13/2021 115 Triglyceride (mg/dL) Date Value 10/07/2023 107 01/13/2021 131 Hemoglobin A1C (%) Date Value 02/25/2022 5.5 ASSESSMENT AND RECOMMENDATIONS Palpitations - reviewed ZIO (more content not included)... Normal [facility] XR Chest PA and Lateralon IMPRESSION: No acute radiographic abnormality. Associate Software Development Engineer: PSCB Transcribe Date/Time: Nov 06 2023 8:54A Dictated by : ARIC TY DO This examination was interpreted and the report reviewed and electronically signed by: ARIC TY DO on Nov 06 2023 8:54AM [facility] DIVISION OF RADIOLOGY * * *Final Report* * * DATE OF EXAM: Nov 06 2023 8:43AM WOX 5291 - XR CHEST 2V FRONTAL/LAT / PROCEDURE REASON: Acute cough * * * * Physician Interpretation * * * * EXAMINATION: CHEST RADIOGRAPH (2 VIEW FRONTAL & LATERAL) CLINICAL HISTORY: Acute cough MQ: XC2_6 EXAM DATE/TIME: 11/06/2023 8:43 AM COMPARISON: 08/09/2023 RESULT: Lines, tubes, and devices: None. Lungs and pleura: No consolidation. No lung mass. No pleural effusion. No pneumothorax. Cardiomediastinal silhouette: Normal cardiomediastinal silhouette. Bones and soft tissues: Unremarkable. DIVISION OF RADIOLOGY Provider, [facility] - 11/06/2023 * * *Final Report* * * DATE OF EXAM: Nov 06 2023 8:43AM WOX 5291 - XR CHEST 2V FRONTAL/LAT / PROCEDURE REASON: Acute cough * * * * Physician Interpretation * * * * EXAMINATION: CHEST RADIOGRAPH (2 VIEW FRONTAL & LATERAL) CLINICAL HISTORY: Acute cough MQ: XC2_6 EXAM DATE/TIME: 11/06/2023 8:43 AM COMPARISON: 08/09/2023 RESULT: Lines, tubes, and devices: None. Lungs and pleura: No consolidation. No lung mass. No pleural effusion. No pneumothorax. Cardiomediastinal silhouette: Normal cardiomediastinal silhouette. Bones and soft tissues: Unremarkable. IMPRESSION IMPRESSION: No acute radiographic abnormality. Associate Software Development Engineer: DELIA Transcribe Date/Time: Nov 06 2023 8:54A Dictated by : ARIC TY DO This examination was interpreted and the report reviewed and electronically signed by: ARIC TY DO on Nov 06 2023 8:54AM EST [facility] Radiology Study observation (narrative) [facility] Chest PA and LateralOrder ed By: Ccf Provider on 11-06-2023 [facility] CNDSon 08-13-2023 [facility] HNO ID: [id number] Author: Liya Rose MD Service: Hospital Medicine Author Type: Physician Type: Discharge Summary Filed: 08/15/2023 12:39 AM Note Text: DISCHARGE SUMMARY PATIENT NAME: Casandra Henry ADMISSION DATE: 08/09/2023 DISCHARGE DATE: 08/13/2023 ATTENDING PHYSICIAN: No att. providers found Code Status: Not on file Highest Readmission Risk Score: 19 The 30 day readmissions risk score is derived from an internally validated risk model which evaluates patient level characteristics, utilization history, medication orders and lab results up until the day of discharge. Patients with a score of 40 or above are considered highest risk for readmission. Specific patient level drivers will be listed at the bottom of the summary. CONSULTING TEAMS DURING HOSPITALIZATION: Cardiology: Nephrology: Treatment Team: Consulting: Hugh Vu MD REASON FOR HOSPITALIZATION: dizziness palpitations DIAGNOSIS: Principal Problem: Hyponatremia (POA: Yes) Active Problems: Essential hypertension (POA: Yes) Hypothyroidism (POA: Yes) Gastroesophageal reflux disease (POA: Yes) Palpitation (POA: Unknown) SVT (supraventricular tachycardia) (POA: Yes) Resolved Problems: * No resolved hospital problems. * OPERATIONS DURING HOSPITALIZATION: None PROCEDURES DURING HOSPITALIZATION: No procedures performed HOSPITAL COURSE: 83 year old female with hypothyroidsm, HTN, GERD, anxiety, who presents with palpitation, dizziness. 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 SVT was seen on zio patch that was just placed a few weeks ago, result uploaded during admission showed 33 runs SVT. Cardiology consulted recommending slow uptitrating of metoprolol if symptomatic and correcting iaotrogenic hyperthyroidism- TSH was low, free t4 was on very upper limit of normal on 100mcg 6 times weekly. Dose lowered to 88mcg daily. Nephrology consulted for hyponatremia, SIADH picture. Nephrology concerned for occult malignancy driving down sodium- chest abd pelvis was neg excet for some small lung noduled- f/u in 12 months and some nodularity of R breast which need a mammogram. - metoprolol uptitrated to BID dosing with improvement in palpitations - TSH/ free t4 should be recheck in 4 weeks For low sodium: salt tablets 1g BID. Fluid restrict 1.2L/day. Lab check- BMP in 1-[address] Ray for hyponatremia in office- call office for your appt - recommend oupt mammogram of R breast for abnormality on CT chest - take metoprolol twice a day, dose was increased from once a day and helped your heart rates - requested cardiology follow up Recheck your thyroid levels with primary care in 4 weeks, your dose was reduced to 88mcg from 100 mcg. A lot of her symptoms jitteriess palpitations and weight loss are signs of hyperthyrodism - serum metanephrines were normal You have some lung nodules, small recommend repeat CT chest in 12 months to ensure no growth. Your primary care can order this as an outpatient Transitions of Care Critical Issues: LABS AND PROCEDURES PENDING AT DISCHARGE: No pending results. PATIENT CONDITION AT DISCHARGE: Stable DISCHARGE DISPOSITION: Home with Self Care, Home with Relative Discharge Physical Exam: VITAL SIGNS: BP 112/52 Pulse 73 Temp 36.3 ?C (97.3 ?F) (Oral) Resp 16 Ht 158.8 cm (5' 2.5) Wt 61.8 kg (136 lb 3.2 oz) SpO2 96% BMI 24.51 kg/m? GENERAL: Alert, no distress, cooperative EYES: PERRLA, EOMI OROPHARYNX: Lips, mucosa, and tongue normal. Teeth and gums normal. Oropharynx normal. LUNGS: Lungs clear to auscultation, Good diaphragmatic excursion CARDIAC: Normal S1 and S2; no rubs, murmurs, or gallops ABDOMEN: Abdomen soft, non-tender, BS normal, No masses or organomegaly NEURO: Gait normal. Reflexes normal and symmetric. Sensation grossly intact, Cranial nerves II-XII intact INFORMATION PROVIDED TO PATIENT: WOUND/SURGICAL SITE CARE: None DIET: Resume pre-hospital diet ACTIVITY: Resume pre-hospital activity ALLERGIES Allergen Reactions Gluten Cough Milk Containing Pro* Cough DISCHARGE MEDICATION: Medication List START taking these medications sodium chloride 1,000 mg Tbso Take 1 tablet by mouth two times a day. CHANGE how you take these medications levothyroxine 88 mcg tablet Commonly known as: SYNTHROID Take 1 tablet by mouth once daily. What changed: medication strength how much to take additional instructions losartan 25 mg tablet Commonly known as: COZAAR Take 1 tablet by mouth two times a day. What changed: medication strength how much to take metoprolol succinate ER 25 mg 24 hr tablet Commonly known as: TOPROL XL Take 1 tablet by mouth two times a day. What changed: when to take this CONTINUE taking these medications busPIRone 5 mg tablet Commonly known as: BUSPAR Take 1 tablet by mouth three times a day. ferrous sulfat (more content not included)... [facility] CONSULT PROGon 08-13-2023 CONSULT PROG HNO ID: [id number] Author: Hugh Vu MD Service: Nephrology Author Type: Physician Type: Consult Progress Note Filed: 08/13/2023 12:44 PM Note Text: Patient seen and examined. She feels ok. Aware she needs to get blood work and mammogram and follow up with Dr. Ray on discharge. Blood pressure 112/52, pulse 73, temperature 36.3 ?C (97.3 ?F), temperature source Oral, resp. rate 16, height 158.8 cm (5' 2.5), weight 61.8 kg (136 lb 3.2 oz), SpO2 96%. Intake/Output Summary (Last 24 hours) at 08/13/2023 1237 Last data filed at 08/13/2023 0800 Gross per 24 hour Intake 1185 ml Output -- Net 1185 ml Gen: NAD Resp: clear CVS: no rub Abd: soft Ext: no edema Na 130 Cr 0.89 Osm 262, SPEP negative TSH low Hb 11.9 UA bland Urine Na 55, Osm 332 Cortisol 21 Impression: Euvolemic hypo-osmolar hyponatremia. 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 She is now off spironolactone. Not likely that buspar is causing this. Given weight loss (could be due to oversuppressed TSH), will have to rule out underlying malignancy. Cortisol OK. CT C/A/P showed some abnormality of right breast. CT brain recently was unremarkable Hypertension - decent control on losartan Abnormal breast imaging on CT scan; last mammogram was in 2017 Plan: Stop urea Continue salt tabs 1.2L fluid restriction on discharge Needs repeat BMP and mammogram as outpatient Follow up with Dr. Ray for hyponatremia on discharge OK for DC; I placed orders for mammogram and BMP in discharge orders Normal [facility] Comprehensive metabolic 2000 panelon 08-13-2023 Albumin [Mass/Vol] 3.9 g/dL Normal 3.9-4.9 [facility] Comment on above: Order Comment: Speci men Type: BLOOD SPECIMENOrdering Facility: [facility] Address: [address] [place] [address] Performed By: #### 1 239, ####[facility]ORATORYCLIA [id number] [address] [place] [facility] ALP [Catalytic activity/Vol] 103 U/L Normal 34-123 [facility] Comment on above: Order Comment: Speci men Type: BLOOD SPECIMENOrdering Facility: [facility] Address: [address] [place] [address] Performed By: #### 1 23-9, ####[facility]ORYCLIA [id number] [place] [address] [place] ALT [Catalytic activity/Vol] 12 U/L Normal 7-38 [facility] Comment on above: Order Comment: Speci men Type: BLOOD SPECIMENOrdering Facility: [facility] Address: [address] [place] [address] Performed By: #### 1 23-9, ####[facility]ORATORYCLIA [id number] [address] [place] OF [facility] Anion gap [Moles/Vol] 10 mmol/L Normal 9-18 [facility] Comment on above: Order Comment: Speci men Type: BLOOD SPECIMENOrdering Facility: [facility] Address: [address] [place] [address] Performed By: #### 1 239, ####[facility] LABORATORYCLIA [id number] [place] [address] [place] AST [Catalytic activity/Vol] 16 U/L Normal 13-35 [facility] Comment on above: Order Comment: Speci men Type: BLOOD SPECIMENOrdering Facility: [facility] Address: [place] [address] Performed By: #### 1 239, ####[facility]ORATORYCLIA [id number] [place] [address] [place] Bilirubin [Mass/Vol] 1.0 mg/dL Normal 0.2-1.3 [facility] Comment on above: Order Comment: Speci men Type: BLOOD SPECIMENOrdering Facility: [facility] Address: [address] [place] [address] Performed By: #### 1 9123-04, ####[facility]ORATORYCLIA [id number] [place] [address] [place] Calcium [Mass/Vol] 9.6 mg/dL Normal 8.5-10.2 [facility] Comment on above: Order Comment: Speci men Type: BLOOD SPECIMENOrdering Facility: [facility] Address: [place] [address] Performed By: #### 1 239, ####[facility]ORATORYCLIA [id number] [place] [address] [place] Chloride [Moles/Vol] 93 mmol/L Low 97-105 [facility] Comment on above: Order Comment: Speci men Type: BLOOD SPECIMENOrdering Facility: [facility] Address: [place] [address] Performed By: #### 1 9, ####[facility]ORATORYCLIA [id number] [place] [address] [place] CO2 [Moles/Vol] 27 mmol/L Normal 22-30 [facility] Comment on above: Order Comment: Speci men Type: BLOOD SPECIMENOrdering Facility: [facility] Address: [address] [place] [address] Performed By: #### 1 9123-9, ####[facility] LABORATORYCLIA [id number] [place] [id number] [place] Creatinine [Mass/Vol] 0.89 mg/dL Normal 0.58-0.96 [facility] Comment on above: Order Comment: Johanne charles Type: BLOOD SPECIMENOrdering Facility: [facility] Address: [address] [place] [address] Performed By: #### 1 9123-9, ####[facility] LABORATORYCLIA [id number] [place] [id number] [facility] Creatinine and Glomerular filtration rate.predicted panel (S/P/Bld) 65 mL/min/1.73m??? Normal >=60 [facility] Comment on above: Order Comment: Johanne charles Type: BLOOD SPECIMENOrdering Facility: [facility] Address: [address] [place] [address] Result Comment: Hina mated Glomerular Filtration Rate (eGFR) is calculated using the 2020 CKD-EPI creatinine equation. This equation utilizes serum creatinine, sex, and age as parameters. The creatinine assay has traceable calibration to isotope dilution-mass spectrometry. Refer to KDIGO guidelines for clinical interpretation. In patients with unstable renal function, e.g. those with acute kidney injury, the eGFR may not accurately reflect actual GFR. Performed By: #### 1 9123-9, ####[facility] LABORATORYCLIA [id number] [place] [id number] [place] Glucose [Mass/Vol] 96 mg/dL Normal 74-99 [facility] Comment on above: Order Comment: Johanne soto Type: BLOOD SPECIMENOrdering Facility: [facility] Address: [address] [place] [address] Result Comment: The [place] [employer] (ADA) provides guidance for cutoff values for fasting glucose and random glucose. The ADA defines fasting as no caloric intake for at least 8 hours. Fasting plasma glucose results between 100 to 125 mg/dL indicate increased risk for diabetes (prediabetes). Fasting plasma glucose results greater than or equal to 126 mg/dL meet the criteria for diagnosis of diabetes. In the absence of unequivocal hyperglycemia, results should be confirmed by repeat testing. In a patient with classic symptoms of hyperglycemia or hyperglycemic crisis, random plasma glucose results greater than or equal to 200 mg/dL meet the criteria for diagnosis of diabetes. Reference: Standards of Medical Care in Diabetes 2016, [place] [employer]. Diabetes Care. 2016.39(Suppl 1). Performed By: #### 1 9123-9, ####[facility]AL[facility] LABORATORYCLIA [id number] [place] [address] [place] Potassium [Moles/Vol] 4.4 mmol/L Normal 3.7-5.1 [facility] Comment on above: Order Comment: Johanne soto Type: BLOOD SPECIMENOrdering Facility: [facility] Address: [address] [place] [address] Performed By: #### 1 9123-9, ####GONZALES LABORATORYCLIA [id number] [place] [address] [place] Protein [Mass/Vol] 6.4 g/dL Normal 6.3-8.0 [facility] Comment on above: Order Comment: Johanne soto Type: BLOOD SPECIMENOrdering Facility: [facility] Address: [address] [place] [address] Performed By: #### 1 9123-9, ####GONZALES LABORATORYCLIA [id number] [place] [address] [place] Sodium [Moles/Vol] 130 mmol/L Low 136-144 [facility] Comment on above: Order Comment: Johanne soto Type: BLOOD SPECIMENOrdering Facility: [facility] Address: [address] [place] [address] Performed By: #### 1 23-9, ####GONZALES LABORATORYCLIA [id number] [place] [address] [place] Urea nitrogen [Mass/Vol] 55 mg/dL High 7-21 [facility] Comment on above: Order Comment: Johanne soto Type: BLOOD SPECIMENOrdering Facility: [facility] Address: [address] [place] [address] Performed By: #### 1 9123-9, 79489-6 ####GONZALES LABORATORYCLIA [id number] [place] [address] [facility] [place] Magnesium SerPl-mCncon 08-13 Magnesium [Mass/Vol] 2.2 mg/dL Normal 1.7-2.3 [facility] Comment on above: Order Comment: Speci men Type: BLOOD SPECIMENOrdering Facility: [facility] Address: [address] [place] [id number] Performed By: #### 1 9123-9, 22534-5 ####GONZALES LABORATORYCLIA [id number] [place] [address] [facility] THERAPY NTon 08-13-2023 THERAPY NT HNO ID: [id number] Author: Marsha Weston PT Service: Physical Therapy Author Type: Physical Therapist Type: Therapy (PT/OT/Speech/Resp) Filed: 08/13/2023 10:16 AM Note Text: Summary: PT Eval - No Skilled Needs Physical Therapy Evaluation SERVICE DATE: 08/13/2023 SERVICE TIME: 0945 to 1000 ROOM: [id number] Recommended Discharge Disposition: Home Recommended Discharge Disposition Comments: Pt functioning near baseline, recommend return home when medically appropriate. Anticipated Discharge Needs: Supervision at Home Physical Assist at Home for: Shopping, Transportation Supervision at Home due to: Other: See Comment (Initially for optimal safety) Recommended Discharge Equipment: No equipment needs anticipated PT 6 Clicks Score: 24 Precautions/Activity Restrictions: Fall Risk Current Hospital Course: CT abd/pelvis showing Scarring in the lung apices and few small lung nodules for which follow-up in 12 months is recommended to assess for stability. Mild nodular appearance of the right subareolar region, incompletely characterized. Reason for Hospital Admission: Hyponatremia Relevant Past Medical History: hypothyroidsm, HTN, GERD, anxiety, who presents with palpitation, dizziness Response to Therapy Interventions: Good Participation in Activities, Improved Tolerance for Activity, On-Track to Achieve Discharge Goals Continued Skilled Needs Due to: Safety Concerns Physical Therapy Problem List: Education Deficit, Safety Deficits, Decreased Activity Tolerance, Impaired Self Care, Decreased Strength, Decreased Range Of Motion, Functional Mobility Impairment, Balance Impaired Treatment Interventions: Education, Strengthening, Joint Mobility, Functional Mobility Training, Balance Training Plan for Next Visit: Bed Mobility, Stair Training, Standing Balance, Standing Tolerance Home Environment Patient Lives With: Spouse Assistance Available: 24-Hour Entry To Home: Stairs, With Rail Number Of Stairs Into Home: 5 Number Of Stairs To Bed/Bath: 0 Tub/Shower Type: tub shower Laundry: main level - patient completes Equipment Owned: Rollator, Cane Prior Functional Level: Within Functional Limits Prior Functional Level Comments: Pt reports performing daily tasks independently, cooking, cleaning, laundry, drives, shops. Takes rollator from community mobility. Does not use device at home for mobility.Reports 1 syncopal episode approx 6 months ago, otherwise denies falls. Reports daughter AND LASHAE live in seperate house on same property. 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 Agreeable to PT, cleared with RN CURRENT FUNCTIONAL STATUS: Most recent performance Current Functional Mobility Assist Level Additional Information Rolling Supine to Sit Stand By Assistance Sit to Supine Stand By Assistance Scooting Stand By Assistance Sit to Stand Stand By Assistance Stand to Sit Stand By Assistance Bed to Chair Toilet/Commode Gait Contact Guard Assistance Gait Device: None Gait Distance (feet): 2 X 120 Stairs Contact Guard Assistance Stairs Device: Rail Number of Stairs: 7 Curb Step Car Transfer Blank dias indicate activity not attempted Balance: Static Sitting, Dynamic Sitting, Static Standing, Dynamic Standing Static Sitting Balance: Good Patient able to maintain balance without handhold support, limited postural sway Dynamic Sitting Balance: Fair Patient accepts minimal challenge, able to maintain balance while turning head/trunk Static Standing Balance: Good Patient able to maintain balance without handhold support, limited postural sway Dynamic Standing Balance: Fair Patient accepts minimal challenge, able to maintain balance while turning head/trunk -HLM: 7: Walk 25 feet or more Learning/Educational Needs: Discharge Plan, Plan of Care, Changes in Plan of Care Goals for Plan of Care: Patient/Caregiver Goals: Go Home, Walk Goals: Patient will demonstrate understanding of importance of mobility during hospital stay and resolve all functional needs identified. Transfer Sit to/from Stand with: Stand By Assistance Ambulate with: Stand By Assistance Distance: 100 feet Device: No Device Progress Toward Goals: Progressing as expected Rehab Potential: Good Patient will be discontinued from Physical Therapy when no further skilled needs are identified in this setting. PLAN: PT Frequency: Discontinue Therapy Services Reasons Therapy Services Discontinued: No skilled needs Plan of Care developed with: Patient TREATMENT INTERVENTIONS: Therapy Diagnosis: Reduced mobility-other Interventions Provided: Evaluation $ Evaluation-Low (15342) Bill (more content not included)... Normal [facility] CBC W Auto Differential pane l (Bld)on 08-12-2023 Basophils (Bld) [#/Vol] 0.05 10*3/uL Normal <0.11 [facility] Comment on above: Order Comment: Speci men Type: BLOOD SPECIMENOrdering Facility: [facility] Address: [address] [place] [address] Performed By: #### 5 7021-8 ####G[facility]AL[facility] LABORATORYCLIA [id number] [place] [address] [place] Basophils/100 WBC (Bld) 0.5 % Normal [facility] Comment on above: Order Comment: Speci men Type: BLOOD SPECIMENOrdering Facility: [facility] Address: [address] [place] [address] Performed By: #### 5 7021-8 ####[facility]AL[facility] LABORATORYCLIA [id number] [place] [address] [place] Differential cell count method Nom (Bld) Auto Normal [facility] Comment on above: Order Comment: Speci men Type: BLOOD SPECIMENOrdering Facility: [facility] Address: [address] [place] [address] Performed By: #### 5 7021-8 ####G[facility]AL[facility] LABORATORYCLIA [id number] [place] [address] [place] Eosinophils (Bld) [#/Vol] 0.45 10*3/uL Normal <0.46 [facility] Comment on above: Order Comment: Speci men Type: BLOOD SPECIMENOrdering Facility: [facility] Address: [address] [place] [address] Performed By: #### 5 7021-8 ####[facility]AL[facility] LABORATORYCLIA [id number] [address] [place] Eosinophils/100 WBC (Bld) 4.6 % Normal [facility] Comment on above: Order Comment: Speci men Type: BLOOD SPECIMENOrdering Facility: [facility] Address: [address] [place] [address] Performed By: #### 5 7021-8 ####G[facility]AL[facility] LABORATORYCLIA [id number] [address] [place] [facility] Erythrocyte distribution width (RBC) [Ratio] 11.9 % Normal 11.5-15.0 [facility] Comment on above: Order Comment: Speci men Type: BLOOD SPECIMENOrdering Facility: [facility] Address: [address] [place] [address] Performed By: #### 5 7021-8 ####G[facility]AL[facility] LABORATORYCLIA [id number] [address] [place] Hematocrit (Bld) [Volume fraction] 33.8 % Low 36.0-46.0 [facility] Comment on above: Order Comment: Speci men Type: BLOOD SPECIMENOrdering Facility: [facility] Address: [address] [place] [address] Performed By: #### 5 7021-8 ####G[facility]AL[facility] LABORATORYCLIA [id number] [address] Hemoglobin (Bld) [Mass/Vol] 11.9 g/dL Normal 11.5-15.5 [facility] Comment on above: Order Comment: Speci men Type: BLOOD SPECIMENOrdering Facility: [facility] Address: [address] [place] [address] Performed By: #### 5 7021-8 ####G[facility]AL[facility] LABORATORYCLIA [id number] [address] Immature granulocytes (Bld) [#/Vol] 0.04 10*3/uL Normal <0.10 [facility] Comment on above: Order Comment: Speci men Type: BLOOD SPECIMENOrdering Facility: [facility] Address: [address] [place] [address] Performed By: #### 5 7021-8 ####G[facility] LABORATORYCLIA [id number] [address] Immature granulocytes/100 WBC (Bld) 0.4 % Normal [facility] Comment on above: Order Comment: Speci men Type: BLOOD SPECIMENOrdering Facility: [facility] Address: [address] [place] [address] Performed By: #### 5 7021-8 ####G[facility]AL[facility] LABORATORYCLIA [id number] [address] [place] [facility] Lymphocytes (Bld) [#/Vol] 2.25 10*3/uL Normal 1.00-4.00 [facility] Comment on above: Order Comment: Speci men Type: BLOOD SPECIMENOrdering Facility: [facility] Address: [address] [place] [address] Performed By: #### 5 7021-8 ####[facility] LABORATORYCLIA [id number] [address] Lymphocytes/100 WBC (Bld) 22.8 % Normal [facility] Comment on above: Order Comment: Speci men Type: BLOOD SPECIMENOrdering Facility: [facility] Address: [address] [place] [address] Performed By: #### 5 7021-8 ####[facility] LABORATORYCLIA [id number] [address] MCH (RBC) [Entitic mass] 31.0 pg Normal 26.0-34.0 [facility] Comment on above: Order Comment: Speci men Type: BLOOD SPECIMENOrdering Facility: [facility] Address: [address] [place] [address] Performed By: #### 5 7021-8 ####G[facility]AL[facility] LABORATORYCLIA [id number] [place] [address] [place] MCHC (RBC) [Mass/Vol] 35.2 g/dL Normal 30.5-36.0 [facility] Comment on above: Order Comment: Speci men Type: BLOOD SPECIMENOrdering Facility: [facility] Address: [address] [place] [address] Performed By: #### 5 7021-8 ####G[facility]AL[facility] LABORATORYCLIA [id number] [place] [address] [place] MCV (RBC) [Entitic vol] 88.0 fL Normal 80.0-100.0 [facility] Comment on above: Order Comment: Speci men Type: BLOOD SPECIMENOrdering Facility: [facility] Address: [address] [place] [address] Performed By: #### 5 7021-8 ####G[facility]AL[facility] LABORATORYCLIA [id number] [place] [address] [place] Monocytes (Bld) [#/Vol] 1.00 10*3/uL High <0.87 [facility] Comment on above: Order Comment: Speci men Type: BLOOD SPECIMENOrdering Facility: [facility] Address: [address] [place] [address] Performed By: #### 5 7021-8 ####[facility] LABORATORYCLIA [id number] [address] Monocytes/100 WBC (Bld) 10.1 % Normal [facility] Comment on above: Order Comment: Speci men Type: BLOOD SPECIMENOrdering Facility: [facility] Address: [address] [place] [address] Performed By: #### 5 7021-8 ####[facility] LABORATORYCLIA [id number] [address] [place] Neutrophils (Bld) [#/Vol] 6.08 10*3/uL Normal 1.45-7.50 [facility] Comment on above: Order Comment: Speci men Type: BLOOD SPECIMENOrdering Facility: [facility] Address: [address] [place] [address] Performed By: #### 5 7021-8 ####[facility] LABORATORYCLIA [id number] [address] Neutrophils/100 WBC (Bld) 61.6 % Normal [facility] Comment on above: Order Comment: Speci men Type: BLOOD SPECIMENOrdering Facility: [facility] Address: [address] [place] [address] Performed By: #### 5 7021-8 ####G[facility]AL[facility] LABORATORYCLIA [id number] [place] [address] [place] Nucleated RBC (Bld) [#/Vol] 10*3/uL Normal <0.01 [facility] Comment on above: Order Comment: Speci men Type: BLOOD SPECIMENOrdering Facility: [facility] Address: [address] [place] [address] Performed By: #### 5 7021-8 ####G[facility]AL[facility] LABORATORYCLIA [id number] [address] [place] Nucleated RBC/100 WBC (Bld) [Ratio] 0.0 /100 WBC Normal [facility] Comment on above: Order Comment: Speci men Type: BLOOD SPECIMENOrdering Facility: [facility] Address: [address] [place] [address] Performed By: #### 5 7021-8 ####GONZALES LABORATORYCLIA [id number] [place] [address] [place] Platelet mean volume (Bld) [Entitic vol] 8.7 fL Low 9.0-12.7 [facility] Comment on above: Order Comment: Speci men Type: BLOOD SPECIMENOrdering Facility: [facility] Address: [address] [place] [address] Performed By: #### 5 7021-8 ####GONZALES LABORATORYCLIA [id number] [place] [address] [place] Platelets (Bld) [#/Vol] 352 10*3/uL Normal 150-400 [facility] Comment on above: Order Comment: Speci men Type: BLOOD SPECIMENOrdering Facility: [facility] Address: [address] [place], [place] [address] [id number] Performed By: #### 5 7021-8 ####GONZAL[facility] LABORATORYCLIA [id number] [place] [address] [place] RBC (Bld) [#/Vol] 3.84 10*6/uL Low 3.90-5.20 [facility] Comment on above: Order Comment: Speci men Type: BLOOD SPECIMENOrdering Facility: [facility] Address: [address] [place] [address] Performed By: #### 5 7021-8 ####GONZALES LABORATORYCLIA [id number] [place] [id number] [place] WBC (Bld) [#/Vol] 9.87 10*3/uL Normal 3.70-11.00 [facility] Comment on above: Order Comment: Speci men Type: BLOOD SPECIMENOrdering Facility: [facility] Address: [place] [address] Performed By: #### 5 7021-8 ####GONZALES LABORATORYCLIA [id number] [address] OF [facility] CONSULT PROGon 08-12-2023 CONSULT PROG HNO ID: [id number] Author: Hugh Vu MD Service: Nephrology Author Type: Physician Type: Consult Progress Note Filed: 08/12/2023 6:53 AM Note Text: Patient seen and examined. She feels much better. No more nausea. Denies palpitations currently. CT C/A/P with no overt malignancy but did show some right breast thickening and some axillary LAD. Last mammogram I can see is from 2017 and she confirms she hasn't got yearly mammograms Blood pressure 119/63, pulse 73, temperature 36.7 ?C (98.1 ?F), temperature source Oral, resp. rate 16, height 158.8 cm (5' 2.5), weight 61.8 kg (136 lb 3.2 oz), SpO2 98%. Intake/Output Summary (Last 24 hours) at 08/12/2023 0648 Last data filed at 08/12/2023 0538 Gross per 24 hour Intake 1050 ml Output 100 ml Net 950 ml Gen: NAD Resp: clear CVS: no rub Abd: soft Ext: no edema Na 128 yesterday; labs pending this AM Cr 0.85 Osm 262, SPEP negative TSH low Hb 11.9 UA bland Urine Na 55, Osm 332 Prevous cortisol 8 Impression: Euvolemic hypo-osmolar hyponatremia. 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 She is now off spironolactone. Not likely that buspar is causing this. Given weight loss (could be due to oversuppressed TSH), will have to rule out underlying malignancy. Previous cortisol was low normal. CT brain in 06/2023 without overt mass. Hypertension - decent control on losartan Abnormal breast imaging on CT scan; last mammogram was in 2017 Plan: Follow up AM cortisol from today and repeat Na levels Continue salt tabs Plan to stop urea when Na > 130 1L fluid restriction; discussed importance with patient, and RN yesterday Check mammogram If discharged, will need outpatient mammogram and close follow up with Dr. Ray. Would continue salt tabs and fluid restriction. Would not restart spironolactone Normal [facility] Comprehensive metabolic 2000 panelon 08-12-2023 Albumin [Mass/Vol] 4.1 g/dL Normal 3.9-4.9 [facility] Comment on above: Order Comment: Speci men Type: BLOOD SPECIMENOrdering Facility: [facility] Address: [address] [place] [address] Performed By: #### 2 43210-28, ####[facility] SH[facility] LABORATORYCLIA [id number] [place] [address] [place] [facility] ALP [Catalytic activity/Vol] 102 U/L Normal 34-123 [facility] Comment on above: Order Comment: Speci men Type: BLOOD SPECIMENOrdering Facility: [facility] Address: [address] [place] [address] Performed By: #### 2 43210-28, ####[facility] SH[facility] LABORATORYCLIA [id number] [address] OF [facility] ALT [Catalytic activity/Vol] 13 U/L Normal 7-38 [facility] Comment on above: Order Comment: Speci men Type: BLOOD SPECIMENOrdering Facility: [facility] Address: [place] [address] Performed By: #### 2 4328, ####GONZALES LABORATORYCLIA [id number] [place] [address] [place] Anion gap [Moles/Vol] 11 mmol/L Normal 9-18 [facility] Comment on above: Order Comment: Speci men Type: BLOOD SPECIMENOrdering Facility: [facility] Address: [address] [place] [address] Performed By: #### 2 4323-03, ####GONZAL[facility] LABORATORYCLIA [id number] [place] [address] [place] AST [Catalytic activity/Vol] 17 U/L Normal 13-35 [facility] Comment on above: Order Comment: Speci men Type: BLOOD SPECIMENOrdering Facility: [facility] Address: [address] [place] [address] Performed By: #### 2 4323-03, ####GONZALES LABORATORYCLIA [id number] [place] [address] [place] Bilirubin [Mass/Vol] 1.0 mg/dL Normal 0.2-1.3 [facility] Comment on above: Order Comment: Speci men Type: BLOOD SPECIMENOrdering Facility: [facility] Address: [place] [address] Performed By: #### 2 43238, ####GONZAL[facility] LABORATORYCLIA [id number] [place] [address] [place] Calcium [Mass/Vol] 9.3 mg/dL Normal 8.5-10.2 [facility] Comment on above: Order Comment: Speci men Type: BLOOD SPECIMENOrdering Facility: [facility] Address: [address] [place] [address] Performed By: #### 2 4328, ####GONZALES LABORATORYCLIA [id number] [place] [address] [place] Chloride [Moles/Vol] 92 mmol/L Low 97-105 [facility] Comment on above: Order Comment: Speci men Type: BLOOD SPECIMENOrdering Facility: [facility] Address: [address] [place] [address] Performed By: #### 2 4328, ####GONZALES LABORATORYCLIA [id number] [place] [address] [place] CO2 [Moles/Vol] 25 mmol/L Normal 22-30 [facility] Comment on above: Order Comment: Speci men Type: BLOOD SPECIMENOrdering Facility: [facility] Address: [address] [place] [address] Performed By: #### 2 4328, ####GONZALES LABORATORYCLIA [id number] [place] [address] [place] Creatinine [Mass/Vol] 0.91 mg/dL Normal 0.58-0.96 [facility] Comment on above: Order Comment: Speci men Type: BLOOD SPECIMENOrdering Facility: [facility] Address: [address] [place] [address] Performed By: #### 2 4328, ####GONZALES LABORATORYCLIA [id number] [place] [address] [place] Creatinine and Glomerular filtration rate.predicted panel (S/P/Bld) 64 mL/min/1.73m??? Normal >=60 [facility] Comment on above: Order Comment: Speci men Type: BLOOD SPECIMENOrdering Facility: [facility] Address: [address] [place] [address] Result Comment: Hina mated Glomerular Filtration Rate (eGFR) is calculated using the 2020 CKD-EPI creatinine equation. This equation utilizes serum creatinine, sex, and age as parameters. The creatinine assay has traceable calibration to isotope dilution-mass spectrometry. Refer to KDIGO guidelines for clinical interpretation. In patients with unstable renal function, e.g. those with acute kidney injury, the eGFR may not accurately reflect actual GFR. Performed By: #### 2 4323-8, ####GONZALES LABORATORYCLIA [id number] [place] [id number] [place] Glucose [Mass/Vol] 101 mg/dL High 74-99 [facility] Comment on above: Order Comment: Johanne soto Type: BLOOD SPECIMENOrdering Facility: [facility] Address: [place] [address] Result Comment: The [place] [employer] (ADA) provides guidance for cutoff values for fasting glucose and random glucose. The ADA defines fasting as no caloric intake for at least 8 hours. Fasting plasma glucose results between 100 to 125 mg/dL indicate increased risk for diabetes (prediabetes). Fasting plasma glucose results greater than or equal to 126 mg/dL meet the criteria for diagnosis of diabetes. In the absence of unequivocal hyperglycemia, results should be confirmed by repeat testing. In a patient with classic symptoms of hyperglycemia or hyperglycemic crisis, random plasma glucose results greater than or equal to 200 mg/dL meet the criteria for diagnosis of diabetes. Reference: Standards of Medical Care in Diabetes 2016, [place] [employer]. Diabetes Care. 2016.39(Suppl 1). Performed By: #### 2 4323-8, ####[facility] LABORATORYCLIA [id number] [place] [address] [place] Potassium [Moles/Vol] 4.5 mmol/L Normal 3.7-5.1 [facility] Comment on above: Order Comment: Johanne soto Type: BLOOD SPECIMENOrdering Facility: [facility] Address: [address] [place] [address] Performed By: #### 2 432-8, ####[facility] LABORATORYCLIA [id number] [place] [address] [place] Protein [Mass/Vol] 6.5 g/dL Normal 6.3-8.0 [facility] Comment on above: Order Comment: Johanne soto Type: BLOOD SPECIMENOrdering Facility: [facility] Address: [place] [id number] Performed By: #### 2 43238, ####[facility] LABORATORYCLIA [id number] [place] [id number] [place] Sodium [Moles/Vol] 128 mmol/L Low 136-144 [facility] Comment on above: Order Comment: Johanne men Type: BLOOD SPECIMENOrdering Facility: [facility] Address: [place] [address] Performed By: #### 2 4323-8, 30420-8 ####[facility] LABORATORYCLIA [id number] [place] [id number] [place] Urea nitrogen [Mass/Vol] 18 mg/dL Normal 03-12 [facility] Comment on above: Order Comment: Speci men Type: BLOOD SPECIMENOrdering Facility: [facility] Address: [address] [place] [address] Performed By: #### 2 4323-8, 09723-9 ####[facility] LABORATORYCLIA [id number] [place] [id number] [place] Cortis SerPl-mCncon 08-12-20 Cortisol [Mass/Vol] 21.1 ug/dL High 4.8-19.5 [facility] Comment on above: Order Comment: Speci men Type: BLOOD SPECIMENOrdering Facility: [facility] Address: [address] [place] [address] Result Comment: Prov ided reference range is from 6-10 AM sample collection time. Cortisol Reference Range: 6-10 AM = 4.8-19.5 ug/dL, 4-8 PM = 2.5-11.9 ug/dL Performed By: #### 2 143-6 ####[facility] LABCLIA [id number] [facility] [id number] [id number] [place] EKGon 08-12-2023 Electrocardiogram Ventricular Rate : 8 7 BPM Atrial Rate : 87 BPM P-R Interval : 160 ms QRS Duration : 74 ms Q-T Interval : 352 ms QTC Calculation(Bazett) : 423 ms Calculated P [place] : 43 degrees Calculated R [place] : 7 degrees Calculated T [place] : 51 degrees NORMAL SINUS RHYTHM NORMAL ECG WHEN COMPARED WITH ECG OF 09-AUG-2023 08:44, NO SIGNIFICANT CHANGE WAS FOUND Confirmed by MD LEI GREGORY () on 08/13/2023 8:21:13 AM NAME : CASANDRA HENRY PID : [id number] : 1940 Gender : Female Race : ORD : Procedure Date : Aug 12 2023 16:58:30 Edit Date : Aug 13 2023 08:21:14 Diagnosis: NORMAL SINUS RHYTHM NORMAL ECG WHEN COMPARED WITH ECG OF 09-AUG-2023 08:44, NO SIGNIFICANT CHANGE WAS FOUND Confirmed by MD LEI GREGORY () on 08/13/2023 8:21:13 AM Test Reason : Location : 4 : Overread By : MD LEI GREGORY Edited By : MD LEI GREGORY Referred By : , Acquired by : KL, Normal [facility] Magnesium SerPl-mCncon 08-12 Magnesium [Mass/Vol] 2.1 mg/dL Normal 1.7-2.3 [facility] Comment on above: Order Comment: Speci men Type: BLOOD SPECIMENOrdering Facility: [facility] Address: [address] [place] [address] Performed By: #### 2 4323-8, 00737-2 ####[facility] LABORATORYCLIA [id number] [place], [place] [id number] [place] [address] THERAPY NTon 08-12-2023 THERAPY NT HNO ID: [id number] Author: Rickey Hanson OT/L Service: Occupational Therapy Author Type: Occupational Therapist Type: Therapy (PT/OT/Speech/Resp) Filed: 08/12/2023 10:44 AM Note Text: Occupational Therapy Evaluation SERVICE DATE: 08/12/2023 SERVICE TIME: 39 to 100 ROOM: [place] [address] Recommended Discharge Disposition: Home Anticipated Discharge Needs: Physical Assist at Home Physical Assist at Home for: Shopping, Transportation OT 6 Clicks Score: 24 Precautions/Activity Restrictions: Fall Risk Current Hospital Course: Admitted to RNF Relevant Past Medical History: hypothyroidsm, HTN, GERD, anxiety, who presents with palpitation, dizziness Response to Therapy Interventions: Improved Tolerance for Activity, Good Participation in Activities, On-Track to Achieve Discharge Goals Assessment Comments: Pt requires SBA to perform daily tasks. Anticipating pt to return home with no further OT services. Continued Skilled Needs Due to: Safety Concerns, Functional Impairment Occupational Therapy Problem List: Education Deficit, Safety Deficits, Impaired Self Care, Decreased Activity Tolerance Cognition/Communicatio n Deficits Responsiveness: Alert, Awake Follows Commands: 3-step Commands Cognitive Clinical Tests and Screens: 4AT Screening 4AT Screening Assess Alertness: Your observation to asses for excessive drowsiness or agitation. If asleep, attempt to wake with speech or gentle touch on shoulder. You may ask the patient to state their name and address to assist rating.: Normal (fully alert, but not agitated, throughout assessment) Assess orientation: Ask patient age, date of , current year, and current location: No mistakes Asess Attention: Ask patient to tell me the months of the year backwards order, starting with July: Able to state 7+ months correctly Evidence of acute changes or fluctuating mental status (changes in memory, alertness) or behavior (paranoia, hallucinations) in last 2 weeks: No 4AT Score: 0 Delirium Positive/Negative: Negative Treatment Interventions: Education, Self Care/Home Management, Energy Conservation Training, Strengthening, Functional Mobility Training, Balance Training, Neuromuscular Re-education, Cognitive Training Home Environment Patient Lives With: Spouse Assistance Available: 24-Hour Entry To Home: Stairs Number Of Stairs Into Home: 5 Number Of Stairs To Bed/Bath: 0 Tub/Shower Type: tub shower Equipment Owned: Rollator, Cane Prior Functional Level: Within Functional Limits Prior Functional Level Comments: Pt reports performing daily tasks independently, cooking, cleaning, laundry, drives, shops. Takes rollator from [employer]. Does not use device at home for mobility. 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 Highest Level of Education: (not reported) Occupational Factors Life Roles: Spouse/Significant Other Identified Strengths: Good Support System, Involvement in Hobbies/Leisure Activities, Access to Healthcare Identified Barriers: Difficulty with ADLs/IADLs Subjective: Agreed to OT CURRENT FUNCTIONAL STATUS: Most recent performance Current Activities of Daily Living Assist Level Additional Information Feeding Independent Grooming Independent Bathing Upper Body Independent Bathing Lower Body Independent Dressing Upper Body Independent Dressing Lower Body Independent Toileting Independent Instrumental Activities of Daily Living Assist Level Additional Information Meal/Beverage Prep Cleaning Laundry Medication Management with Strategies Functional Mobility Assist Level Additional Information Rolling Independent Supine to Sit Independent Sit to Supine Independent Scooting Independent Sit to Stand Stand By Assistance Stand to Sit Stand By Assistance Bed to Chair Toilet/Commode Shower Functional Mobility Stand By Assistance Blank dias indicate activity not attempted Learning/Educational Needs: Discharge Plan, Rehabilitation Techniques and Procedures, Self Care, Safety, Precautions, Positioning, Plan of Care, Functional Activities/Mobility Goals for Plan of Care: Patient/Caregiver Goals: Participate in meaningful activities, Reduce ADL/IADL barriers Goals: Patient will demonstrate understanding of importance of mobility during hospital stay and resolve all self-care, cognitive and/or coping needs identified. Progress Toward Goals: Progressing as expected Rehab Potential: Good Patient will be discontinued from Occupational Therapy when no further skilled needs are identified in this setting. PLAN: OT Frequency: Discontinue Therapy Services Reasons Therapy Services Discontinued: Goals met Plan of Care developed with: Patient TREATMENT INTERVENTIONS: Therapy Diagnosis: Decreased activities of daily living (ADL) Interventions Provided: Evaluation, Self Care (more content not included)... [facility] 08-11-2023 [facility] HNO ID: [id number] Author: Ana Chang, CT Service: Radiology Author Type: Technologist Type: Allied Health Filed: 08/11/2023 6:54 PM Note Text: Radiology Service Progress Note DATE OF SERVICE: August 11, 2023 TIME: 6:54 PM PATIENT IDENTITY VERIFICATION COMPLETED USING TWO (2) STANDARD IDENTIFIERS: Name and Date of confirmed by patient verbally and Name and Date of confirmed by identification band. FALL SCREENING: Has the patient had 2 falls in the last year or 1 fall with injury or currently using an Ambulatory Assistive Device (Walker, Cane, Wheelchair, Crutches, etc.)? Inpatient: Screened on floor PATIENT GENDER DATA: Female. status: : No status: NO. PATIENT RELEVANT IMPLANT DATA REVIEWED: Not Applicable ALLERGIES: Reviewed and unchanged CONTRAST ALLERGY: NO. EXAM: CT -CONTRAST INDUCED NEPHROPATHY RISK FACTORS: Patient age > 60 years CREATININE: Creatinine Date Value Ref Range Status 08/11/2023 0.85 0.58 - 0.96 mg/dL Final 08/11/2023 0.84 0.58 - 0.96 mg/dL Final 08/10/2023 0.82 0.58 - 0.96 mg/dL Final Estimated Glomerular Filtration Rate Date Value Ref Range Status 08/11/2023 69 >=60 mL/min/1.73m? Final Comment: Estimated Glomerular Filtration Rate (eGFR) is calculated using the 2020 CKD-EPI creatinine equation. This equation utilizes serum creatinine, sex, and age as parameters. The creatinine assay has traceable calibration to isotope dilution-mass spectrometry. Refer to KDIGO guidelines for clinical interpretation. In patients with unstable renal function, e.g. those with acute kidney injury, the eGFR may not accurately reflect actual GFR. eGFR- Date Value Ref Range Status 08/20/2021 >60 Final P.O.C.T. RESULTS: POC done: Yes, See Lab Tab August 11, 2023 TREATMENT: N/A PERIPHERAL IV DATA: Inpatient - refer to LDA documentation RADIOLOGY DEPARTMENT: CT; Exam(s) Completed: Chest Abdomen Pelvis SIGNATURE: CATHY John PATIENT NAME: Casandra Henry DATE: August 11, 2023 TIME: 6:54 PM Normal [facility] Basic metabolic 2000 panelon 08-11-2023 Anion gap [Moles/Vol] 10 mmol/L Normal 9-18 [facility] Comment on above: Order Comment: Speci men Type: BLOOD SPECIMENOrdering Facility: [facility] Address: [address] [place] [address] Performed By: #### 2 4321-2 ####[facility] LABORATORYCLIA [id number] [place] [address] [place] Calcium [Mass/Vol] 9.2 mg/dL Normal 8.5-10.2 [facility] Comment on above: Order Comment: Speci men Type: BLOOD SPECIMENOrdering Facility: [facility] Address: [address] [place] [address] Performed By: #### 2 4321-2 ####[facility] LABORATORYCLIA [id number] [place] [address] [place] Chloride [Moles/Vol] 94 mmol/L Low 97-105 [facility] Comment on above: Order Comment: Speci men Type: BLOOD SPECIMENOrdering Facility: [facility] Address: [address] [place] [address] Performed By: #### 2 4321-2 ####[facility] LABORATORYCLIA [id number] [place] [address] [place] CO2 [Moles/Vol] 24 mmol/L Normal 22-30 [facility] Comment on above: Order Comment: Speci men Type: BLOOD SPECIMENOrdering Facility: [facility] Address: [address] [place] [address] Performed By: #### 2 4321-2 ####[facility] LABORATORYCLIA [id number] [address] [place] Creatinine [Mass/Vol] 0.85 mg/dL Normal 0.58-0.96 [facility] Comment on above: Order Comment: Johanne soto Type: BLOOD SPECIMENOrdering Facility: [facility] Address: [address] [place] [address] Performed By: #### 2 4321-2 ####[facility] LABORATORYCLIA [id number] [address] Creatinine and Glomerular filtration rate.predicted panel (S/P/Bld) 69 mL/min/1.73m??? Normal >=60 [facility] Comment on above: Order Comment: Johanne soto Type: BLOOD SPECIMENOrdering Facility: [facility] Address: [address] [place] [address] Result Comment: Hina mated Glomerular Filtration Rate (eGFR) is calculated using the 2020 CKD-EPI creatinine equation. This equation utilizes serum creatinine, sex, and age as parameters. The creatinine assay has traceable calibration to isotope dilution-mass spectrometry. Refer to KDIGO guidelines for clinical interpretation. In patients with unstable renal function, e.g. those with acute kidney injury, the eGFR may not accurately reflect actual GFR. Performed By: #### 2 4321-2 ####[facility] LABORATORYCLIA [id number] [address] OF [facility] Glucose [Mass/Vol] 105 mg/dL High 74-99 [facility] Comment on above: Order Comment: Johanne soto Type: BLOOD SPECIMENOrdering Facility: [facility] Address: [address] [place] [address] Result Comment: The [place] [employer] (ADA) provides guidance for cutoff values for fasting glucose and random glucose. The ADA defines fasting as no caloric intake for at least 8 hours. Fasting plasma glucose results between 100 to 125 mg/dL indicate increased risk for diabetes (prediabetes). Fasting plasma glucose results greater than or equal to 126 mg/dL meet the criteria for diagnosis of diabetes. In the absence of unequivocal hyperglycemia, results should be confirmed by repeat testing. In a patient with classic symptoms of hyperglycemia or hyperglycemic crisis, random plasma glucose results greater than or equal to 200 mg/dL meet the criteria for diagnosis of diabetes. Reference: Standards of Medical Care in Diabetes 2016, [place] [employer]. Diabetes Care. 2016.39(Suppl 1). Performed By: #### 2 4321-2 ####[facility] LABORATORYCLIA [id number] [address] STATES [facility] Potassium [Moles/Vol] 4.7 mmol/L Normal 3.7-5.1 [facility] Comment on above: Order Comment: Speci men Type: BLOOD SPECIMENOrdering Facility: [facility] Address: [address] [place] [address] Performed By: #### 2 4321-2 ####[facility] LABORATORYCLIA [id number] [address] [place] [facility] Sodium [Moles/Vol] 128 mmol/L Low 136-144 [facility] Comment on above: Order Comment: Sheilai charles Type: BLOOD SPECIMENOrdering Facility: [facility] Address: [address] [place] [address] Performed By: #### 2 4321-2 ####[facility] LABORATORYCLIA [id number] [address] [place] [facility] Urea nitrogen [Mass/Vol] 11 mg/dL Normal 7-21 [facility] Comment on above: Order Comment: Sheilai charles Type: BLOOD SPECIMENOrdering Facility: [facility] Address: [address] [place] [address] Performed By: #### 2 4321-2 ####[facility] LABORATORYCLIA [id number] [address] STATES OF [facility] CBC W Auto Differential pane l (Bld)on 08-11-2023 Basophils (Bld) [#/Vol] 0.06 10*3/uL Normal <0.11 [facility] Comment on above: Order Comment: Sheilai men Type: BLOOD SPECIMENOrdering Facility: [facility] Address: [address] [place] [address] Performed By: #### 5 7021-8 ####[facility] LABORATORYCLIA [id number] [address] [place] [facility] Basophils/100 WBC (Bld) 0.6 % Normal [facility] Comment on above: Order Comment: Speci men Type: BLOOD SPECIMENOrdering Facility: [facility] Address: [address] [place] [address] Performed By: #### 5 7021-8 ####[facility] LABORATORYCLIA [id number] [place] [address] [place] Differential cell count method Nom (Bld) Auto Normal [facility] Comment on above: Order Comment: Speci men Type: BLOOD SPECIMENOrdering Facility: [facility] Address: [address] [place] [address] Performed By: #### 5 7021-8 ####[facility] LABORATORYCLIA [id number] [place] [address] [place] Eosinophils (Bld) [#/Vol] 0.23 10*3/uL Normal <0.46 [facility] Comment on above: Order Comment: Speci men Type: BLOOD SPECIMENOrdering Facility: [facility] Address: [address] [place] [address] Performed By: #### 5 7021-8 ####[facility] LABORATORYCLIA [id number] [place] [address] [place] Eosinophils/100 WBC (Bld) 2.1 % Normal [facility] Comment on above: Order Comment: Speci men Type: BLOOD SPECIMENOrdering Facility: [facility] Address: [address] [place] [address] Performed By: #### 5 7021-8 ####[facility] LABORATORYCLIA [id number] [place] [address] [place] Erythrocyte distribution width (RBC) [Ratio] 11.6 % Normal 11.5-15.0 [facility] Comment on above: Order Comment: Speci men Type: BLOOD SPECIMENOrdering Facility: [facility] Address: [address] [place] [address] Performed By: #### 5 7021-8 ####[facility] LABORATORYCLIA [id number] [place] [address] [place] Hematocrit (Bld) [Volume fraction] 37.0 % Normal 36.0-46.0 [facility] Comment on above: Order Comment: Speci men Type: BLOOD SPECIMENOrdering Facility: [facility] Address: [address] [place] [address] Performed By: #### 5 7021-8 ####[facility] LABORATORYCLIA [id number] [place] [address] [place] Hemoglobin (Bld) [Mass/Vol] 12.5 g/dL Normal 11.5-15.5 [facility] Comment on above: Order Comment: Speci men Type: BLOOD SPECIMENOrdering Facility: [facility] Address: [address] [place] [address] Performed By: #### 5 7021-8 ####[facility] LABORATORYCLIA [id number] [place] [address] [place] Immature granulocytes (Bld) [#/Vol] 0.05 10*3/uL Normal <0.10 [facility] Comment on above: Order Comment: Speci men Type: BLOOD SPECIMENOrdering Facility: [facility] Address: [address] [place] [address] Performed By: #### 5 7021-8 ####[facility] LABORATORYCLIA [id number] [place] [address] [place] Immature granulocytes/100 WBC (Bld) 0.5 % Normal [facility] Comment on above: Order Comment: Speci men Type: BLOOD SPECIMENOrdering Facility: [facility] Address: [address] [place] [address] Performed By: #### 5 7021-8 ####[facility] LABORATORYCLIA [id number] [place] [address] [place] Lymphocytes (Bld) [#/Vol] 1.85 10*3/uL Normal 1.00-4.00 [facility] Comment on above: Order Comment: Speci men Type: BLOOD SPECIMENOrdering Facility: [facility] Address: [address] [place] [address] Performed By: #### 5 7021-8 ####[facility] LABORATORYCLIA [id number] [address] [place] Lymphocytes/100 WBC (Bld) 17.1 % Normal [facility] Comment on above: Order Comment: Speci men Type: BLOOD SPECIMENOrdering Facility: [facility] Address: [address] [place] [address] Performed By: #### 5 7021-8 ####[facility] LABORATORYCLIA [id number] [address] MCH (RBC) [Entitic mass] 30.2 pg Normal 26.0-34.0 [facility] Comment on above: Order Comment: Speci men Type: BLOOD SPECIMENOrdering Facility: [facility] Address: [address] [place] [address] Performed By: #### 5 7021-8 ####[facility] LABORATORYCLIA [id number] [address] MCHC (RBC) [Mass/Vol] 33.8 g/dL Normal 30.5-36.0 [facility] Comment on above: Order Comment: Speci men Type: BLOOD SPECIMENOrdering Facility: [facility] Address: [address] [place] [address] Performed By: #### 5 7021-8 ####[facility] LABORATORYCLIA [id number] [address] MCV (RBC) [Entitic vol] 89.4 fL Normal 80.0-100.0 [facility] Comment on above: Order Comment: Speci men Type: BLOOD SPECIMENOrdering Facility: [facility] Address: [address] [place] [address] Performed By: #### 5 7021-8 ####[facility] LABORATORYCLIA [id number] [address] Monocytes (Bld) [#/Vol] 1.05 10*3/uL High <0.87 [facility] Comment on above: Order Comment: Speci men Type: BLOOD SPECIMENOrdering Facility: [facility] Address: [address] [place] [address] Performed By: #### 5 7021-8 ####[facility] LABORATORYCLIA [id number] [address] Monocytes/100 WBC (Bld) 9.7 % Normal [facility] Comment on above: Order Comment: Speci men Type: BLOOD SPECIMENOrdering Facility: [facility] Address: [address] [facility] [place] [address] Performed By: #### 5 7021-8 ####[facility] LABORATORYCLIA [id number] [place] [address] [place] Neutrophils (Bld) [#/Vol] 7.56 10*3/uL High 1.45-7.50 [facility] Comment on above: Order Comment: Speci men Type: BLOOD SPECIMENOrdering Facility: [facility] Address: [address] [place] [address] Performed By: #### 5 7021-8 ####[facility] LABORATORYCLIA [id number] [address] Neutrophils/100 WBC (Bld) 70.0 % Normal [facility] Comment on above: Order Comment: Speci men Type: BLOOD SPECIMENOrdering Facility: [facility] Address: [address] [place] [address] Performed By: #### 5 7021-8 ####[facility] LABORATORYCLIA [id number] [place] [address] [place] Nucleated RBC (Bld) [#/Vol] 10*3/uL Normal <0.01 [facility] Comment on above: Order Comment: Speci men Type: BLOOD SPECIMENOrdering Facility: [facility] Address: [address] [place] [address] Performed By: #### 5 7021-8 ####[facility] LABORATORYCLIA [id number] [address] Nucleated RBC/100 WBC (Bld) [Ratio] 0.0 /100 WBC Normal [facility] Comment on above: Order Comment: Speci men Type: BLOOD SPECIMENOrdering Facility: [facility] Address: [address] [place] [address] Performed By: #### 5 7021-8 ####[facility] LABORATORYCLIA [id number] [place] [address] [facility] [place] Platelet mean volume (Bld) [Entitic vol] 8.4 fL Low 9.0-12.7 [facility] Comment on above: Order Comment: Speci men Type: BLOOD SPECIMENOrdering Facility: [facility] Address: [address] [place] [address] Performed By: #### 5 7021-8 ####[facility] LABORATORYCLIA [id number] [address] [place] Platelets (Bld) [#/Vol] 360 10*3/uL Normal 150-400 [facility] Comment on above: Order Comment: Speci men Type: BLOOD SPECIMENOrdering Facility: [facility] Address: [address] [place] [id number] Performed By: #### 5 7021-8 ####GONZALES LABORATORYCLIA [id number] [place] [address] [place] RBC (Bld) [#/Vol] 4.14 10*6/uL Normal 3.90-5.20 [facility] Comment on above: Order Comment: Speci men Type: BLOOD SPECIMENOrdering Facility: [facility] Address: [address] [place] [address] Performed By: #### 5 7021-8 ####GONZALES LABORATORYCLIA [id number] [place] [address] [place] WBC (Bld) [#/Vol] 10.80 10*3/uL Normal 3.70-11.00 [facility] Comment on above: Order Comment: Speci men Type: BLOOD SPECIMENOrdering Facility: [facility] Address: [place] [address] Performed By: #### 5 7021-8 ####GONZALES LABORATORYCLIA [id number] [place] [id number] [facility] [place] CONSULTon 08-11-2023 CONSULT HNO ID: [id number] Author: Delilah Traore DO Service: Cardiovascular Medicine Author Type: Physician Type: Consults Filed: 08/11/2023 11:37 AM Note Text: [facility]ARD[facility]ICINE CONSULT NOTE Casandra Henry [id number] PRIMARY SERVICE: Internal Medicine CONSULTING SERVICE: Cardiovascular Medicine: DATE OF ADMISSION: 08/09/2023 DATE OF CONSULT: 08/11/2023 REASON FOR CONSULT SVT runs on ZIO patch HISTORY OF PRESENT ILLNESS Casandra Henry is a 83 year old female with a history of hypothyroidsm, HTN, GERD, and anxiety, who presents with palpitation and dizziness. She has been having these episodes for several months. She has had a finding of low TSH and elevated free t4- she has been adjusting down her levothyroxine was on 125mcg now down to 100mcg 6 times a week. She woke up day of admit with feeling of palpitations and dizziness. She reports sometimes worsening with standing up. She was taken off spironolactone last week as her potassium was high. She just finished a 14 day ZIO monitor-with results noted below but there was no symptom rhythm correlation with her multiple symptoms of dizziness, lightheadedness, racing heartbeat, and fluttering.. She has slowly worsening hyponatremia which she sees nephrology for and was suppose to start salt tabs but hasn't picked up from pharmacy yet was suppose to be filled today. She denies infectious symptoms no cough sore throat, chest pain. She has had some weight loss from loss of appetite She has had episodes of sinus tachycardia intermittently since she has been here. EKG showed normal sinus rhythm. Na of 126, potasisum improved from 08/04 was 5.6. now 4.5. leukocytosis resolved from 15 to 10. Normal troponins. Cxr neg. PAST MEDICAL HISTORY PAST MEDICAL HISTORY Diagnosis Date Acid reflux Hiatal hernia Hypertension Hypothyroid Palpitation PAST SURGICAL HISTORY Procedure Laterality Date CARPAL TUNNEL 2000 bilateral COLONOSCOPY FLX DX W/COLLJ SPEC WHEN PFRMD 12/05/2013 Colonoscopy done in [facility] FLX W/REMOVAL LESION BY HOT BX FORCEPS 02/19/[address] Catarino Salas LAPAROSCOPIC DUODENAL BIOPSY 02/13/2020 Catarino Salas MD; duodenal biopsy, gastric antrum biopsy, irregular GE junction bopsy, proximal gastric body soft tissue prominence biopsy all performed FAMILY HISTORY FAMILY HISTORY Problem Relation Age of Onset Stroke Mother 84 Hypertension Mother Heart Mother Cancer Father Lung 75 Cancer Paternal Grandmother Hypertension Sister Hypertension Sister Diabetes Sister Diabetes Sister Kidney Disease Brother 74 SOCIAL HISTORY Social History Tobacco Use Smoking status: Never Smokeless tobacco: Never Substance Use Topics Alcohol use: No Drug use: No HOME MEDICATIONS busPIRone (BUSPAR) 5 mg tabletTake 1 tablet by mouth three times a day.Disp: 90 tabletRfl: 0 (Patient taking differently: Take 5 mg by mouth three times a day as needed.) metoprolol succinate ER (TOPROL XL) 25 mg 24 hr tabletTake 1 tablet by mouth once daily.Disp: 90 tabletRfl: 1 levothyroxine (SYNTHROID) 100 mcg tabletTake 1 tablet by mouth once daily. Take on empty stomachDisp: 30 tabletRfl: 1 (Patient taking differently: Take 100 mcg by mouth six times a week. Take on empty stomach) losartan (COZAAR) 50 mg tablettake 1 tablet by mouth twice a dayDisp: 180 tabletRfl: 3 (Patient taking differently: Take 25 mg by mouth two times a day.) TENS unit and electrodes [id number] Units as directed. Dx: chronic low back pain, lumbar radiculopathyDisp: 1 EachRfl: 0 multivit with iron,minerals (MULTIVITAMIN AND MINERALS ORAL)Take by mouth.Disp: Rfl: ferrous sulfate 325 mg (65 mg iron) tabletTake 1 tablet by mouth twice daily with meals.Disp: Rfl: INPATIENT MEDICATIONS Current Facility-Administered Medications Medication Dose Route Frequency NaCl 0.9% iv flush bag 20 mL INTRAVENOUS PRN acetaminophen 650 mg tab(s) (TYLENOL) 650 mg ORAL q 6 H PRN busPIRone 5 mg tab(s) (BUSPAR) 5 mg ORAL TID PRN metoprolol succinate ER 25 mg tab(s) (TOPROL XL) 25 mg ORAL DAILY levothyroxine 88 mcg tab(s) (SYNTHROID) 88 mcg ORAL DAILY influenza vaccine qs 240 mcg (Patients 65 years and older) (PF) 0.7 mL injection (FLUZONE HIGH DOSE ) 0.7 mL INTRAMUSCULAR ONCE (IMMUNIZATION) losartan 25 mg tab(s) (COZAAR) 25 mg ORAL BID melatonin 3 mg tab(s) 3 mg ORAL DAILY (8 PM) polyethylene glycol 3350 17 g packet 17 g ORAL DAILY hemorrhoid ointment ointment (PREPARATION H) RECTAL PRN sodium chloride 1,000 mg soluble tab(s) 1,000 mg ORAL BID sodium chloride 0.9 % (flush) 2-10 mL (BD POSIFLUSH) 2-10 mL INTRAVENOUS DIRECTED PRN And perflutren lipid microspheres 1.1 mg/mL 1.3 mL injection (DEFINITY) 1.3 mL INTRAVENOUS DIRECTED PRN urea 30 g oral powder (URE-NA) 30 g ORAL BID magnesium sulfate 1 g in D5W 100 mL 1 g INTRAVENOUS ONCE A (more content not included)... [facility] CONSULT PROGon 08-11-2023 CONSULT PROG HNO ID: [id number] Author: Hugh Vu MD Service: Nephrology Author Type: Physician Type: Consult Progress Note Filed: 08/11/2023 1:42 PM Note Text: Patient seen and examined. Had a rough night. Harrah palpitations again. Had some restless legs. Mild nausea. According to RN, she has been drinking a lot of water. I ordered fluid restriction yesterday. Na level today down to 123 Blood pressure 136/82, pulse 84, temperature 36.5 ?C (97.7 ?F), temperature source Oral, resp. rate 17, height 158.8 cm (5' 2.5), weight 61.8 kg (136 lb 3.2 oz), SpO2 98%. Intake/Output Summary (Last 24 hours) at 08/11/2023 0954 Last data filed at 08/11/2023 0948 Gross per 24 hour Intake 720 ml Output -- Net 720 ml Gen: NAD Resp: clear CVS: no rub Abd: soft Ext: no edema Na 123, K 4.5, uric 3.6 Cr 0.8 Osm 262 TSH low Hb 12.5 UA bland Urine Na 56, Osm 226 Prevous cortisol 8 Impression: Euvolemic hypo-osmolar hyponatremia. 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 She is now off spironolactone. Not likely that buspar is causing this. Given weight loss (could be due to oversuppressed TSH), will have to rule out underlying malignancy. Previous cortisol was low normal. CT brain in 06/2023 without overt mass. Hypertension - decent control Plan: Check AM cortisol tomorrow Continue salt tabs Add urea 1L fluid restriction; discussed importance with patient, and RN Check CT C/A/P; will need outpatient mammogram as well if not up to date (last one I can see was 2017) [facility] CT ABD/PEL W IVCONon 023 CT ABD/PEL W IVCON * * *Final Report* * * DATE OF EXAM: Aug 11 2023 7:00PM [facility] [place]30 - CT ABD/PEL W IVCON / PROCEDURE REASON: Nausea/vomiting * * * * Physician Interpretation * * * * EXAMINATION: CT CHEST WITH IV CONTRAST and CT ABDOMEN AND PELVIS WITH IV CONTRAST CLINICAL HISTORY: unintended weight loss, hyponatremia TECHNIQUE: CT of the chest from the thoracic inlet to the upper abdomen was performed following IV contrast. CT of the abdomen and pelvis was performed using standard technique, scanning from just above the dome of the diaphragm to the symphysis pubis. MQ: CTCW_6; CTAP_3 Contrast: IV: 100 ml of Omnipaque 350 Oral: 450 ml of 50ML Omnipaque [address] Radiation dose: Integrated Dose-length product (DLP) for this visit = 392 mGy*cm. CT Dose Reduction Employed: Automated exposure control(AEC) and iterative recon COMPARISON: Ultrasound of the carotids 08/09/2023 and priors RESULT: Limitations: None. Chest: Lines, tubes, and devices: None. Lung parenchyma and airways: Scarring in the lung apices. * 0.5 cm subpleural nodularity in the posterior right lung apex and 0.4 cm nodularity laterally likely also representing scarring (302, 37 and 44) * 0.2 cm nodule in the lateral basal right lower lobe (302, 119) No consolidation. The central airways are patent. Pleural space: No pleural effusion. No pleural thickening. Lower neck, lymph nodes, and mediastinum: The imaged thyroid gland is normal. Scattered lymph nodes in the right axillary region measure up to 1.0 cm. Heart, pericardium, and thoracic vessels: The thoracic aorta and main pulmonary artery are normal in caliber. Mild calcifications of the aortic leaflets. The cardiac chambers are normal in size. No coronary artery calcifications are noted, although the study is not optimized for coronary assessment. No pericardial effusion or thickening. Abdomen / Pelvis: Liver: No mass. Biliary: No bile duct dilation. Gallbladder is unremarkable. Spleen: No mass. No splenomegaly. Pancreas: No mass or duct dilation. Adrenals: No mass. Kidneys: Symmetric nephrograms. A 3.2 cm cyst is present in the left lateral interpolar region other scattered spondylosis. GI tract: Small hiatal hernia. No dilation or wall thickening. Small appendicolith present in the mid appendix but no acute inflammation. Lymph nodes: No abdominal or pelvic lymphadenopathy. Mesentery/Peritoneum: No ascites or mass. Retroperitoneum: No mass. Vasculature: - Abdominal aorta and iliac arteries: Only mild atherosclerotic calcifications, no aneurysm. - Celiac and SMA: Patent - Portal venous system (SMV, splenic vein, portal vein and branches): Patent. - Hepatic veins: Patent Pelvis: No mass, ascites or fluid collection. Bladder is unremarkable. Musculoskeletal soft tissues: Bones:Mild degenerative changes of the thoracolumbar spine, partial ankylosis of the superior thoracic vertebral bodies. Soft tissues: Significant ductal calcifications in the visualized portions of the glandular breast tissue bilaterally. Mild asymmetric nodular appearance of the right subareolar region, incompletely characterized. Suction Roller (topogram) images: No additional findings. IMPRESSION: 1. No acute findings in the chest, abdomen or pelvis. 2. Scarring in the lung apices and few small lung nodules for which follow-up in 12 months is recommended to assess for stability. 3. Mild nodular appearance of the right subareolar region, incompletely characterized. Recommend correlation with dedicated breast imaging if not already performed. Other chronic findings, as above. Associate Software Development Engineer: DELIA Transcribe Date/Time: Aug 11 2023 7:28P Dictated by : ALEXI LORD MD This examination was interpreted and the report reviewed and electronically signed by: ALEXI LORD MD on Aug 11 2023 7:39PM EST [id number] [facility] CT CHEST W IVCONon 3 CT CHEST W IVCON * * *Final Report* * * DATE OF EXAM: Aug 11 2023 7:00PM [facility] 0539 - CT CHEST W IVCON / PROCEDURE REASON: Weight loss, unintended * * * * Physician Interpretation * * * * EXAMINATION: CT CHEST WITH IV CONTRAST and CT ABDOMEN AND PELVIS WITH IV CONTRAST CLINICAL HISTORY: unintended weight loss, hyponatremia TECHNIQUE: CT of the chest from the thoracic inlet to the upper abdomen was performed following IV contrast. CT of the abdomen and pelvis was performed using standard technique, scanning from just above the dome of the diaphragm to the symphysis pubis. MQ: CTCW_6; CTAP_3 Contrast: IV: 100 ml of Omnipaque 350 Oral: 450 ml of 50ML Omnipaque [address] Radiation dose: Integrated Dose-length product (DLP) for this visit = 392 mGy*cm. CT Dose Reduction Employed: Automated exposure control(AEC) and iterative recon COMPARISON: Ultrasound of the carotids 08/09/2023 and priors RESULT: Limitations: None. Chest: Lines, tubes, and devices: None. Lung parenchyma and airways: Scarring in the lung apices. * 0.5 cm subpleural nodularity in the posterior right lung apex and 0.4 cm nodularity laterally likely also representing scarring (302, 37 and 44) * 0.2 cm nodule in the lateral basal right lower lobe (302, 119) No consolidation. The central airways are patent. Pleural space: No pleural effusion. No pleural thickening. Lower neck, lymph nodes, and mediastinum: The imaged thyroid gland is normal. Scattered lymph nodes in the right axillary region measure up to 1.0 cm. Heart, pericardium, and thoracic vessels: The thoracic aorta and main pulmonary artery are normal in caliber. Mild calcifications of the aortic leaflets. The cardiac chambers are normal in size. No coronary artery calcifications are noted, although the study is not optimized for coronary assessment. No pericardial effusion or thickening. Abdomen / Pelvis: Liver: No mass. Biliary: No bile duct dilation. Gallbladder is unremarkable. Spleen: No mass. No splenomegaly. Pancreas: No mass or duct dilation. Adrenals: No mass. Kidneys: Symmetric nephrograms. A 3.2 cm cyst is present in the left lateral interpolar region other scattered spondylosis. GI tract: Small hiatal hernia. No dilation or wall thickening. Small appendicolith present in the mid appendix but no acute inflammation. Lymph nodes: No abdominal or pelvic lymphadenopathy. Mesentery/Peritoneum: No ascites or mass. Retroperitoneum: No mass. Vasculature: - Abdominal aorta and iliac arteries: Only mild atherosclerotic calcifications, no aneurysm. - Celiac and SMA: Patent - Portal venous system (SMV, splenic vein, portal vein and branches): Patent. - Hepatic veins: Patent Pelvis: No mass, ascites or fluid collection. Bladder is unremarkable. Musculoskeletal soft tissues: Bones:Mild degenerative changes of the thoracolumbar spine, partial ankylosis of the superior thoracic vertebral bodies. Soft tissues: Significant ductal calcifications in the visualized portions of the glandular breast tissue bilaterally. Mild asymmetric nodular appearance of the right subareolar region, incompletely characterized. Suction Roller (topogram) images: No additional findings. IMPRESSION: 1. No acute findings in the chest, abdomen or pelvis. 2. Scarring in the lung apices and few small lung nodules for which follow-up in 12 months is recommended to assess for stability. 3. Mild nodular appearance of the right subareolar region, incompletely characterized. Recommend correlation with dedicated breast imaging if not already performed. Other chronic findings, as above. Associate Software Development Engineer: DELIA Transcribe Date/Time: Aug 11 2023 7:28P Dictated by : ALEXI LORD MD This examination was interpreted and the report reviewed and electronically signed by: ALEXI LORD MD on Aug 11 2023 7:39PM EST [id number] Normal [facility] Comprehensive metabolic 2000 panelon 08-11-2023 Albumin [Mass/Vol] 4.1 g/dL Normal 3.9-4.9 [facility] Comment on above: Order Comment: Speci men Type: BLOOD SPECIMENOrdering Facility: [facility] Address: [address] [place] [address] Performed By: #### 1 9123-9, 52405-2 ####EVEN[facility] SHADE LABORATORYCLIA [id number] [place] [address] [place] ALP [Catalytic activity/Vol] 109 U/L Normal 34-123 [facility] Comment on above: Order Comment: Speci men Type: BLOOD SPECIMENOrdering Facility: [facility] Address: [address] [place] [address] Performed By: #### 1 9123-9, 63909-7 ####EVEN[facility] SHADE LABORATORYCLIA [id number] [place] [address] [place] ALT [Catalytic activity/Vol] 14 U/L Normal 7-38 [facility] Comment on above: Order Comment: Speci men Type: BLOOD SPECIMENOrdering Facility: [facility] Address: [address] [place] [address] Performed By: #### 1 9123-9, 39869-1 ####GONZALES LABORATORYCLIA [id number] [place] [address] [place] Anion gap [Moles/Vol] 8 mmol/L Low 9-18 [facility] Comment on above: Order Comment: Speci men Type: BLOOD SPECIMENOrdering Facility: [facility] Address: [address] [place] [address] Performed By: #### 1 23-9, 29653-9 ####GONZALES LABORATORYCLIA [id number] [place] [address] [place] AST [Catalytic activity/Vol] 19 U/L Normal 13-35 [facility] Comment on above: Order Comment: Speci men Type: BLOOD SPECIMENOrdering Facility: [facility] Address: [address] [place] [address] Performed By: #### 1 23-9, ####GONZALES LABORATORYCLIA [id number] [place] [address] [place] Bilirubin [Mass/Vol] 1.3 mg/dL Normal 0.2-1.3 [facility] Comment on above: Order Comment: Speci men Type: BLOOD SPECIMENOrdering Facility: [facility] Address: [address] [place] [address] Performed By: #### 1 239, ####GONZALES LABORATORYCLIA [id number] [place] [address] [place] Calcium [Mass/Vol] 9.6 mg/dL Normal 8.5-10.2 [facility] Comment on above: Order Comment: Speci men Type: BLOOD SPECIMENOrdering Facility: [facility] Address: [address] [place] [address] Performed By: #### 1 23-9, ####GONZALES LABORATORYCLIA [id number] [place] [address] [place] Chloride [Moles/Vol] 90 mmol/L Low 97-105 [facility] Comment on above: Order Comment: Speci men Type: BLOOD SPECIMENOrdering Facility: [facility] Address: [address] [place] [address] Performed By: #### 1 23-9, ####GONZALES LABORATORYCLIA [id number] [place] [address] [place] CO2 [Moles/Vol] 25 mmol/L Normal 22-30 [facility] Comment on above: Order Comment: Speci men Type: BLOOD SPECIMENOrdering Facility: [facility] Address: [address] [place] [address] Performed By: #### 1 9123-9, ####EVENING SHADE LABORATORYCLIA [id number] [address] STATES OF [facility] Creatinine [Mass/Vol] 0.84 mg/dL Normal 0.58-0.96 [facility] Comment on above: Order Comment: Johanne charles Type: BLOOD SPECIMENOrdering Facility: [facility] Address: [address] [place] [address] Performed By: #### 1 9123-9, ####EVENING SHADE LABORATORYCLIA [id number] [address] Creatinine and Glomerular filtration rate.predicted panel (S/P/Bld) 70 mL/min/1.73m??? Normal >=60 [facility] Comment on above: Order Comment: Johanne charles Type: BLOOD SPECIMENOrdering Facility: [facility] Address: [address] [place] [address] Result Comment: Hina mated Glomerular Filtration Rate (eGFR) is calculated using the 2020 CKD-EPI creatinine equation. This equation utilizes serum creatinine, sex, and age as parameters. The creatinine assay has traceable calibration to isotope dilution-mass spectrometry. Refer to KDIGO guidelines for clinical interpretation. In patients with unstable renal function, e.g. those with acute kidney injury, the eGFR may not accurately reflect actual GFR. Performed By: #### 1 9123-9, 19800-1 ####EVEN[facility] SHADE LABORATORYCLIA [id number] [place] [address] [place] Glucose [Mass/Vol] 108 mg/dL High 74-99 [facility] Comment on above: Order Comment: Johanne soto Type: BLOOD SPECIMENOrdering Facility: [facility] Address: [address] [place] [address] Result Comment: The [place] [employer] (ADA) provides guidance for cutoff values for fasting glucose and random glucose. The ADA defines fasting as no caloric intake for at least 8 hours. Fasting plasma glucose results between 100 to 125 mg/dL indicate increased risk for diabetes (prediabetes). Fasting plasma glucose results greater than or equal to 126 mg/dL meet the criteria for diagnosis of diabetes. In the absence of unequivocal hyperglycemia, results should be confirmed by repeat testing. In a patient with classic symptoms of hyperglycemia or hyperglycemic crisis, random plasma glucose results greater than or equal to 200 mg/dL meet the criteria for diagnosis of diabetes. Reference: Standards of Medical Care in Diabetes 2016, [place] [employer]. Diabetes Care. 2016.39(Suppl 1). Performed By: #### 1 9123-9, ####GONZALES LABORATORYCLIA [id number] [place] [address] [place] Potassium [Moles/Vol] 4.5 mmol/L Normal 3.7-5.1 [facility] Comment on above: Order Comment: Johanne soto Type: BLOOD SPECIMENOrdering Facility: [facility] Address: [address] [place] [address] Performed By: #### 1 23-9, ####GONZALES LABORATORYCLIA [id number] [place] [address] [place] Protein [Mass/Vol] 6.8 g/dL Normal 6.3-8.0 [facility] Comment on above: Order Comment: Johanne soto Type: BLOOD SPECIMENOrdering Facility: [facility] Address: [address] [place] [address] Performed By: #### 1 23-9, ####GONZALES LABORATORYCLIA [id number] [place] [address] [place] Sodium [Moles/Vol] 123 mmol/L Low 136-144 [facility] Comment on above: Order Comment: Johanne soto Type: BLOOD SPECIMENOrdering Facility: [facility] Address: [address] [place] [address] Performed By: #### 1 23-9, ####GONZALES LABORATORYCLIA [id number] [place] [address] [place] Urea nitrogen [Mass/Vol] 8 mg/dL Normal 7-21 [facility] Comment on above: Order Comment: Johanne soto Type: BLOOD SPECIMENOrdering Facility: [facility] Address: [address] [place] [address] Performed By: #### 1 9123-9, 18965-9 ####EVEN[facility] SHADE LABORATORYCLIA [id number] [place] [address] [facility] ECHOon 08-11-2023 Echocardiography Echocardiography Report: Transthoracic Echo [facility] Date of service: 08/11/2023 10:55:54 AM Ordering physician: LIYA ROSE Indication: SVT Technologist: Ashleigh Gilman [facility] Interpreting physician: Rock Gomez DO PATIENT: Name: CASANDRA HENRY : 1940 Age: 83 years Gender: F History of hypertension, dyslipidemia and chronic kidney disease. Primary rhythm: sinus. Height: 158.80 cm BSA: 1.65 m Weight: 61.78 kg BMI: 24.5 kg/m Heart rate 69 bpm Blood pressure 147/63 mmHg Color Doppler was utilized to interrogate the cardiac valves assessed and spectral Doppler was utilized to determine the flow velocities and pressure gradients reported in this exam. Myocardial strain analysis was performed in this exam to aid in the assessment of cardiac function. MEASUREMENTS: Value Indexed Normal Max aortic dimension 3.1 cm Ao < 3.8 Left atrium diameter 3.1 cm (2D) Left atrial volume 36 ml (biplane A-L) 22 ml/m Ambar <= 34 LV ID (diastole) 3.8 cm (2D) 2.33 cm/m LV ID (systole) 2.5 cm (2D) 1.51 cm/m IVS, leaflet tips 0.9 cm (2D) Posterior wall thickness 0.8 cm (2D) Left ventricular mass 100 g (2D) 60 g/m Global peak long strain -16.4 % LV stroke volume 33 ml (2D biplane) LV end diastolic volume 55 ml (2D biplane) 33.2 ml/m 29<=EDVi<62 LV end systolic volume 22 ml (2D biplane) 13.2 ml/m Ejection Fraction 60 % (2D biplane) EF > 54 FINDINGS: LEFT VENTRICLE The left ventricle is normal in size. Left ventricular systolic function is normal. Global LV myocardial strain is normal. Normal left ventricular diastolic function. Mitral annular lateral E/e': 16.9. Mitral annular septal E/e': 13.0. Wall Motion: All scored segments are normal. RIGHT VENTRICLE The right ventricle is normal in size. Right ventricular systolic function is normal. RV systolic tissue Doppler velocity is 11.4 cm/s. Tricuspid annular displacement is 2.0 cm. Estimated right ventricular systolic pressure is 23 mmHg consistent with normal pulmonary artery pressures. Estimated right atrial pressure is 3 mmHg based on IVC assessment. LEFT ATRIUM The left atrial cavity is normal in size. RIGHT ATRIUM The right atrial cavity is normal in size. Inferior Vena Cava: The inferior vena cava appears normal measuring 1.6 cm. The vessel decreases greater than 50 percent with inspiration. MITRAL VALVE There is mild mitral annular calcification observed posterior. There is trace mitral valve regurgitation. There is mild calcification. The pressure half time is 57 msec. The peak mitral E/A ratio is 0.69. The average mitral E/e' ratio is 14.9. The mitral flow deceleration time is 195 msec. TRICUSPID VALVE There is trace tricuspid valve regurgitation. There is mild calcification. The hepatic venous pattern showed normal systolic flow. AORTIC VALVE There is trace aortic valve regurgitation. Tricuspid aortic valve. There is mild calcification. The peak gradient is 11 mmHg (peak velocity = 163.0 cm/s). The LVOT diameter is 1.9 cm. PULMONIC VALVE The pulmonic valve was not seen or not interrogated. There is trace pulmonic valve regurgitation. AORTA The visualized aorta is normal in size. Measurements - Aortic valve annulus 1.9 cm. Mid ascending aorta 3.1 cm. PULMONARY ARTERIES The pulmonary arteries are unseen or not interrogated. INTERATRIAL SEPTUM There is no patent foramen ovale. INTERVENTRICULAR SEPTUM There is normal motion of the interventricular septum. PERICARDIUM There is no pericardial effusion. CONCLUSIONS: - Exam indication: SVT - The left ventricle is normal in size. Left ventricular systolic function is normal. EF = 60 5% (2D biplane) Normal left ventricular diastolic function. - The right ventricle is normal in size. Right ventricular systolic function is normal. - There is no patent foramen ovale. - No significant valvular disease. - Exam was compared with the prior echocardiographic exam performed on 07/23/22. There is no significant change. * * * Final * * * AddressReport Medical Image : [id number] sSISUID Normal [facility] Magnesium SerPl-mCncon 08-11 Magnesium [Mass/Vol] 1.9 mg/dL Normal 1.7-2.3 [facility] Comment on above: Order Comment: Speci men Type: BLOOD SPECIMENOrdering Facility: [facility] Address: [address] [place] [address] Performed By: #### 1 9123-9, 23648-2 ####[facility] LABORATORYCLIA [id number] [place] [address] [place] Osmolality Uron 08-11-2023 Osmolality (U) [Osmolality] 332 mosm/kg Normal 50-1200 [facility] Comment on above: Order Comment: Speci men Type: URINE SPECIMENOrdering Facility: [facility] Address: [address] [place] [address] Performed By: #### 2 695-5 ####[facility] LABCLIA [id number] [place] [address] [place] Sodium ?Tm Ur-sCncon 023 Sodium Unsp time (U) [Moles/Vol] 55 mmol/L Normal 14-216 [facility] Comment on above: Order Comment: Speci men Type: URINE SPECIMENOrdering Facility: [facility] Address: [address] [place] [address] Performed By: #### 3 5678-2 ####[facility] LABCLIA [id number] [place] [address] [place] CASE MGT INIT ASSESon 2022 CASE MGT INIT ASSES HNO ID: [id number] Author: Pasquale Merchant LSW Service: ASSESSMENT Author Type: Director Client Type: Care Mgt Initial Assessment Filed: 08/10/2023 1:14 PM Note Text: CARE MANAGEMENT: ASSESSMENT AND DISCHARGE PLAN SERVICE DATE: August 10, 2023 SERVICE TIME: 1:12 PM PCP: Mariana Mcgill Primary Contact: Extended Emergency Contact Information Primary Emergency Contact: Jigar Henry Address: [address] [place] [address] Mobile Relation: Spouse Admission Status: Observation Insurance Provider: [employer] A[employer] MEDICARE HMO Discharge Planning requested by: Per Department Practice Potential Transition Plans Home;To Be Determined Advance Directives Current Advance Directive: None 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 Completion: Yes Action: Education Provided Current Living Arrangements and Support Lives with: Spouse/significant other Type of Residence: Private Residence (House) Does the patient have to climb stairs at home?: No Support: Spouse/significant other How do you manage to accomplish the following: Independent: Bathe/Shower;Dress;Cherelle ls/Meal Prep;Going to the bathroom;Medication Management;Transportat ion to appointments/community Needs Assistance: Ambulation Current Services/Equipment Current Post-Acute Service(s): None Discharge Planning Patient Goal(s): Independent living, Be able to go home, General wellness [place] of Choice Explained: [place] of [place] Given: No Reason Not Given: No placements necessary Are you interested in bedside delivery of your medications? No Discharge Planning Participant(s): Patient Patient/Family Comments: Pt. would like to return home w/spouse upon discharge Caregiver Assessment: Caregiver is ready, willing and able to meet the patient's needs as recommended by the inter-professional team: No Caregiver needed Transport at Discharge: Transportation Arrangements: To Be Determined Needs Prior to Discharge: Needs Prior to Discharge: To Be Determined Post-Acute Discharge Plan: SW met w/pt. Bedside. Pt. Admitted w/hyponatremia and palpitations. Neph has been placed on consult. Pt. Reports that she is from home w/her spouse. Pt. Reports that she does not need DME for ambulation however she has a cane if needed. Pt. Plans to return home w/spouse upon discharge. Spouse to transport. 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 Rose PRIMARY CARE PHYSICIAN: Sreekanth Cortez DO Ms. Henry is a 83 year old female who presents for abnormal labs. She has a history of hypothyroidism with recent issues with oversuppression of TSH requiring decrease in synthroid. She has also had issues with hyponatremia that have been longstanding (previously due to HCTZ now off) but more recently worsened. She was asked by her primary care provider to increase her fluid intake to 60-80oz a day given recent labs suggestive of worsening hyponatremia. She contacted her senior contracts manager, my partner Dr. Ray, who asked that she stop her spironolactone and start salt tabs and low dose lasix (she has yet to pick these up). She was admitted to hospital yesterday with palpitations, abnormal labs and generalized not feeling well. Has lost weight recently. Appetite has been poor. As above, has been trying to push PO fluids. No chest pain. Mild nausea was present. No diarrhea. She is not on thiazides or SSRI and AEDs. Previous workup showed a high normal cortisol, low serum osm and low normal uric acid. Na level was 129 a few months ago, prior to that was in the low 130 range. PAST MEDICAL HISTORY: PAST MEDICAL HISTORY Diagnosis Date Acid reflux Hiatal hernia Hypertension Hypothyroid Palpitation PAST SURGICAL HISTORY: PAST SURGICAL HISTORY Procedure Laterality Date CARPAL TUNNEL 2000 bilateral COLONOSCOPY FLX DX W/COLLJ SPEC WHEN PFRMD 12/05/2013 Colonoscopy done in [facility] FLX W/REMOVAL LESION BY HOT BX FORCEPS 02/19/[address] Catarino Salas LAPAROSCOPIC DUODENAL BIOPSY 02/13/2020 Catarino Salas MD; duodenal biopsy, gastric antrum biopsy, irregular GE junction bopsy, proximal gastric body soft tissue prominence biopsy all performed FAMILY HISTORY: FAMILY HISTORY Problem Relation Age of Onset Stroke Mother 84 Hypertension Mother Heart Mother Cancer Father Lung 75 Cancer Paternal Grandmother Hypertension Sister Hypertension Sister Diabetes Sister Diabetes Sister Kidney Disease Brother 74 SOCIAL HISTORY: Social History Tobacco Use Smoking status: Never Smokeless tobacco: Never Substance Use Topics Alcohol use: No Drug use: No MEDICATIONS: Prior to Admission Medications: perflutren lipid microspheres 1.3 mL in NaCl (PF) 0.9% 10 mL injection (DEFINITY), , INTRAVENOUS, DIRECTED PRN, Sergei Renner APRN.[employer] sodium chloride 0.9 % (flush) 10 mL (BD POSIFLUSH), 10 mL, INTRAVENOUS, DIRECTED PRN, Sergei Renner, FERNANDEZ.[employer] busPIRone (BUSPAR) 5 mg tablet, Take 1 tablet by mouth three times a day. (Patient taking differently: Take 5 mg by mouth three times a day as needed.), Disp: 90 tablet, Rfl: 0, 08/08/2023 metoprolol succinate ER (TOPROL XL) 25 mg 24 hr tablet, Take 1 tablet by mouth once daily., Disp: 90 tablet, Rfl: 1, 08/08/2023 levothyroxine (SYNTHROID) 100 mcg tablet, Take 1 tablet by mouth once daily. Take on empty stomach (Patient taking differently: Take 100 mcg by mouth six times a week. Take on empty stomach), Disp: 30 tablet, Rfl: 1 losartan (COZAAR) 50 mg tablet, take 1 tablet by mouth twice a day (Patient taking differently: Take 25 mg by mouth two times a day.), Disp: 180 tablet, Rfl: 3, 08/08/2023 TENS unit and electrodes cmpk, 1 Units as directed. Dx: chronic low back pain, lumbar radiculopathy, Disp: 1 Each, Rfl: 0 multivit with iron,minerals (MULTIVITAMIN AND MINERALS ORAL), Take by mouth., Disp: , Rfl: , Unknown ferrous sulfate 325 mg (65 mg iron) tablet, Take 1 tablet by mouth twice daily with meals., Disp: , Rfl: , Unknown Current Facility-Administered Medications Medication Dose Route Frequency NaCl 0.9% iv flush bag 20 mL INTRAVENOUS PRN acetaminophen 650 mg tab(s) (TYLENOL) 650 mg ORAL q 6 H PRN busPIRone 5 mg tab(s) (BUSPAR) 5 mg ORAL TID PRN metoprolol succinate ER 25 mg tab(s) (TOPROL XL) 25 mg ORAL DAILY levothyroxine 88 mcg tab(s) (SYNTHROID) 88 mcg ORAL DAILY [START ON 08/11/2023] influenza vaccine qs 240 mcg (Patients 65 years and older) (PF) 0.7 mL injection (FLUZONE HIGH DOSE ) 0.7 mL INTRAMUSCULAR ONCE (IMMUNIZATION) losartan 25 mg tab(s) (COZAAR) 25 mg ORAL BID melatonin 3 mg tab(s) 3 mg ORAL DAILY (8 PM) polyethylene glycol 3350 17 g packet 17 g ORAL DAILY hemorrhoid ointment ointment (PREPARATION H) RECTAL PRN ALLERGIES: ALLERGIES Allergen Reactions Gluten Cough Milk Containing Pro* Cough COMPLETE REVIEW OF SYSTEMS: Please see HPI PHYSICAL EXAM: Patient Vitals for the past 24 hrs: BP Temp Temp src Pulse Resp SpO2 Heigh (more content not included)... Normal [facility] Comprehensive metabolic 2000 panelon 08-10-2023 Albumin [Mass/Vol] 4.0 g/dL Normal 3.9-4.9 [facility] Comment on above: Order Comment: Speci men Type: BLOOD SPECIMENOrdering Facility: [facility] Address: [address] [place] [address] Performed By: #### 2 4323-8 ####[facility]ORATORYCLIA [id number] [address] ALP [Catalytic activity/Vol] 112 U/L Normal 34-123 [facility] Comment on above: Order Comment: Speci men Type: BLOOD SPECIMENOrdering Facility: [facility] Address: [address] [place] [address] Performed By: #### 2 4323-8 ####[facility]ORATORYCLIA [id number] [address] ALT [Catalytic activity/Vol] 15 U/L Normal 7-38 [facility] Comment on above: Order Comment: Speci men Type: BLOOD SPECIMENOrdering Facility: [facility] Address: [address] [place] [address] Performed By: #### 2 4323-8 ####[facility]ORYCLIA [id number] [address] Anion gap [Moles/Vol] 11 mmol/L Normal 9-18 [facility] Comment on above: Order Comment: Speci men Type: BLOOD SPECIMENOrdering Facility: [facility] Address: [address] [place] [address] Performed By: #### 2 4323-8 ####[facility]ORATORYCLIA [id number] [place] [address] [place] AST [Catalytic activity/Vol] 25 U/L Normal 13-35 [facility] Comment on above: Order Comment: Speci men Type: BLOOD SPECIMENOrdering Facility: [facility] Address: [address] [place] [address] Performed By: #### 2 4323-8 ####[facility]ORATORYCLIA [id number] [place] [address] [place] Bilirubin [Mass/Vol] 1.6 mg/dL High 0.2-1.3 [facility] Comment on above: Order Comment: Speci men Type: BLOOD SPECIMENOrdering Facility: [facility] Address: [address] [place] [address] Performed By: #### 2 4323-8 ####[facility]ORATORYCLIA [id number] [place] [address] [place] Calcium [Mass/Vol] 9.5 mg/dL Normal 8.5-10.2 [facility] Comment on above: Order Comment: Speci men Type: BLOOD SPECIMENOrdering Facility: [facility] Address: [address] [place] [address] Performed By: #### 2 4323-8 ####[facility]ORATORYCLIA [id number] [place] [address] [place] Chloride [Moles/Vol] 91 mmol/L Low 97-105 [facility] Comment on above: Order Comment: Speci men Type: BLOOD SPECIMENOrdering Facility: [facility] Address: [address] [place] [address] Performed By: #### 2 4323-8 ####[facility]ORATORYCLIA [id number] [place] [address] [place] CO2 [Moles/Vol] 24 mmol/L Normal 22-30 [facility] Comment on above: Order Comment: Speci men Type: BLOOD SPECIMENOrdering Facility: [facility] Address: [address] [place] [address] Performed By: #### 2 4323-8 ####[facility] LABORATORYCLIA [id number] [address] STATES OF [facility] Creatinine [Mass/Vol] 0.82 mg/dL Normal 0.58-0.96 [facility] Comment on above: Order Comment: Johanne soto Type: BLOOD SPECIMENOrdering Facility: [facility] Address: [address] [place] [address] Performed By: #### 2 4323-8 ####[facility] LABORATORYCLIA [id number] [place] [id number] [facility] Creatinine and Glomerular filtration rate.predicted panel (S/P/Bld) 72 mL/min/1.73m??? Normal >=60 [facility] Comment on above: Order Comment: Johanne soto Type: BLOOD SPECIMENOrdering Facility: [facility] Address: [address] [place] [address] Result Comment: Hina mated Glomerular Filtration Rate (eGFR) is calculated using the 2020 CKD-EPI creatinine equation. This equation utilizes serum creatinine, sex, and age as parameters. The creatinine assay has traceable calibration to isotope dilution-mass spectrometry. Refer to KDIGO guidelines for clinical interpretation. In patients with unstable renal function, e.g. those with acute kidney injury, the eGFR may not accurately reflect actual GFR. Performed By: #### 2 4323-8 ####[facility] LABORATORYCLIA [id number] [place] [id number] [facility] Glucose [Mass/Vol] 100 mg/dL High 74-99 [facility] Comment on above: Order Comment: Johanne soto Type: BLOOD SPECIMENOrdering Facility: [facility] Address: [address] [place] [address] Result Comment: The [place] [employer] (ADA) provides guidance for cutoff values for fasting glucose and random glucose. The ADA defines fasting as no caloric intake for at least 8 hours. Fasting plasma glucose results between 100 to 125 mg/dL indicate increased risk for diabetes (prediabetes). Fasting plasma glucose results greater than or equal to 126 mg/dL meet the criteria for diagnosis of diabetes. In the absence of unequivocal hyperglycemia, results should be confirmed by repeat testing. In a patient with classic symptoms of hyperglycemia or hyperglycemic crisis, random plasma glucose results greater than or equal to 200 mg/dL meet the criteria for diagnosis of diabetes. Reference: Standards of Medical Care in Diabetes 2016, [place] [employer]. Diabetes Care. 2016.39(Suppl 1). Performed By: #### 2 4323-8 ####[facility] LABORATORYCLIA [id number] [place] [address] [place] Potassium [Moles/Vol] 4.8 mmol/L Normal 3.7-5.1 [facility] Comment on above: Order Comment: Speci men Type: BLOOD SPECIMENOrdering Facility: [facility] Address: [address] [place] [address] Performed By: #### 2 4323-8 ####[facility] LABORATORYCLIA [id number] [place] [address] [place] Protein [Mass/Vol] 6.7 g/dL Normal 6.3-8.0 [facility] Comment on above: Order Comment: Speci men Type: BLOOD SPECIMENOrdering Facility: [facility] Address: [address] [place] [address] Performed By: #### 2 4323-8 ####[facility]ORATORYCLIA [id number] [place] [address] [place] Sodium [Moles/Vol] 126 mmol/L Low 136-144 [facility] Comment on above: Order Comment: Speci men Type: BLOOD SPECIMENOrdering Facility: [facility] Address: [address] [place] [address] Performed By: #### 2 4323-8 ####[facility] LABORATORYCLIA [id number] [place] [address] [place] Urea nitrogen [Mass/Vol] 8 mg/dL Normal 7-21 [facility] Comment on above: Order Comment: Speci men Type: BLOOD SPECIMENOrdering Facility: [facility] Address: [address] [place] [address] Performed By: #### 2 4323-8 ####[facility]ORATORYCLIA [id number] [place] [address] [place] METANEPHRINES, FREE PLASMAon 08-10-2023 METANEPHRINE, PLASMA 58 pg/mL Normal 12-67 [facility] Comment on above: Order Comment: Speci men Type: BLOOD SPECIMENOrdering Facility: [facility] Address: [address] [place] [address] Result Comment: Refe rence Ranges: Hypertensive adult > or = 18 yrs old: 12-72 pg/mL Normotensive adult > or = 18 yrs old: 12-67 pg/mL Normotensive children < 18 yrs old: 10-95 pg/mL Performed By: #### P METAN ####[facility] LABCLIA [id number] [place] [address] [place] NORMETANEPHRINE, PLASMA 84 pg/mL Normal 18-101 [facility] Comment on above: Order Comment: Speci men Type: BLOOD SPECIMENOrdering Facility: [facility] Address: [address] [place] [address] Result Comment: Refe rence Ranges: Hypertensive adult > or = 18 yrs old: 24-145 pg/mL Normotensive adult > or = 18 yrs old: 18-101 pg/mL Normotensive children < 18 yrs old: 22-83 pg/mL Methyldopa may cause false elevation of normetanephrine levels in this assay. If patient is on methyldopa, interpret results with caution. Performed By: #### P METAN ####[facility] LABCLIA [id number] [place] [address] [place] NUTRITIONon 08-10-2023 NUTRITION HNO ID: [id number] Author: Tammy Alfred RD Service: Nutrition Therapy Author Type: Registered Dietitian Type: Nutrition Filed: 08/10/2023 12:45 PM Note Text: NUTRITION THERAPY SCREEN NOTE SERVICE DATE: 08/10/2023 SERVICE TIME: 11:00 am Care Plan: Continue current diet Monitor intake. Reviewed physician progress notes and labs. Monitor and Evaluation: Meet greater than 75% of estimated needs Intake History: reports loss appetite Diet Orders (From admission, onward) Start Ordered 08/09/231744 Diet Heart Healthy START NOW Question Answer Comment Heart Healthy 2 GM SODIUM (LOW SAT FAT) Fluid Restriction 1000 ML 08/09/231743 Anthropometrics: Height: 158.8 cm (5' 2.5) Weight: 61.8 kg (136 lb 3.2 oz) 03/31/23 : 63.5 kg (140 lb) No significant weight loss. MNT Billing: $ Initial Assessment: 1-15 minutes SIGNATURE: Tammy Alfred RD PATIENT NAME: Casandra Henry DATE: August 10, 2023 TIME: 12:43 PM Normal [facility] PROTEIN ELECTROPHORESIS SERU M (P)on 08-10-2023 Albumin [Mass/Vol] 3.87 g/dL Normal 3.43-5.41 [facility] Comment on above: Order Comment: Speci men Type: BLOOD SPECIMENOrdering Facility: [facility] Address: [address] [place] [address] Performed By: #### L [id number] ####[facility] LABCLIA [id number] [place] [address] [place] Alpha 1 globulin Elph [Mass/Vol] 0.30 g/dL Normal 0.18-0.43 [facility] Comment on above: Order Comment: Speci men Type: BLOOD SPECIMENOrdering Facility: [facility] Address: [address] [place] [address] Performed By: #### L [id number] ####[facility] LABCLIA [id number] [place] [address] [place] Alpha 2 globulin Elph [Mass/Vol] 0.57 g/dL Normal 0.42-0.98 [facility] Comment on above: Order Comment: Speci men Type: BLOOD SPECIMENOrdering Facility: [facility] Address: [address] [place] [address] Performed By: #### L [id number] ####[facility] LABCLIA [id number] [place] [address] [place] Beta globulin Elph [Mass/Vol] 0.89 g/dL Normal 0.61-1.17 [facility] Comment on above: Order Comment: Speci men Type: BLOOD SPECIMENOrdering Facility: [facility] Address: [address] [place] [address] Performed By: #### L [id number] ####[facility] LABCLIA [id number] [place] [address] [place] Gamma globulin Elph [Mass/Vol] 0.66 g/dL Normal 0.53-1.51 [facility] Comment on above: Order Comment: Speci men Type: BLOOD SPECIMENOrdering Facility: [facility] Address: [address] [place] [address] Performed By: #### L [id number] ####[facility] LABCLIA [id number] [place] [address] [place] M-PROTEIN LOCATION Normal [facility] Comment on above: Order Comment: Speci men Type: BLOOD SPECIMENOrdering Facility: [facility] Address: [address] [place] [address] Result Comment: Not Applicable. Performed By: #### L [id number] ####[facility] LABIA [id number] [place] [address] [place] Protein Fractions [Interp] No definitive M protein is identified on protein electrophoresis. Normal No definitive M protein is identified on protein electrophores is. [facility] Comment on above: Order Comment: Speci men Type: BLOOD SPECIMENOrdering Facility: [facility] Address: [address] [place] [address] Performed By: #### L [id number] ####[facility] LABIA [id number] [address] [place] Protein.monoclonal Elph [Mass/Vol] 0.00 g/dL Normal <=0.00 [facility] Comment on above: Order Comment: Speci men Type: BLOOD SPECIMENOrdering Facility: [facility] Address: [address] [place] [address] Performed By: #### L [id number] ####[facility] LABIA [id number] [place] [address] [place] SPE STAFF REVIEW Reviewed by Dr. Dimas Nicole MD [facility] Comment on above: Order Comment: Speci men Type: BLOOD SPECIMENOrdering Facility: [facility] Address: [address] [place] [id number] Performed By: #### L [id number] ####[facility] LABCLIA [id number] [place] [id number] [facility] [place] Prot SerPl-mCncon 08-10-2023 Protein [Mass/Vol] 6.3 g/dL Normal 6.3-8.0 [facility] Comment on above: Order Comment: Speci men Type: BLOOD SPECIMENOrdering Facility: [facility] Address: [address] [place] [address] Performed By: #### 2 885-2 ####[facility]ENTER[facility] [id number] [place] [id number] [facility] [place] ALLIED HEALTHon 08-09-2023 ALLIED HEALTH HNO ID: [id number] Author: Colleen Gonzalez Tech Service: Radiology Author Type: Hall Clerk Type: Allied Health Filed: 08/09/2023 9:04 PM Note Text: Radiology Service Progress Note PATIENT NAME: Casandra Henry DATE OF SERVICE: August 09, 2023 TIME: 9:03 PM PATIENT IDENTITY VERIFICATION COMPLETED USING TWO (2) IDENTIFIERS: Name and Date of confirmed by patient verbally. FALL SCREENING: Has the patient had 2 falls in the last year or 1 fall with injury or currently using an Ambulatory Assistive Device (Walker, Cane, Wheelchair, Crutches, etc.)? Inpatient: Screened on floor PATIENT GENDER DATA: Female. status: : No status: NO. PATIENT RELEVANT IMPLANT DATA REVIEWED: Not Applicable RADIOLOGY DEPARTMENT: Ultrasound PERIPHERAL IV DATA: Not applicable SIGNED BY: Ericka Plaza August 09, 2023 9:03 PM Normal [facility] HNO ID: [id number] Author: Amita Domingo V RT(R) Service: Radiology Author Type: Technologist Type: Allied Health Filed: 08/09/2023 10:48 AM Note Text: Radiology Service Progress Note PATIENT NAME: Casandra Henry DATE OF SERVICE: August 09, 2023 TIME: 10:48 AM PATIENT IDENTITY VERIFICATION COMPLETED USING TWO (2) IDENTIFIERS: Name and Date of confirmed by patient verbally and Name and Date of confirmed by identification band. FALL SCREENING: Has the patient had 2 falls in the last year or 1 fall with injury or currently using an Ambulatory Assistive Device (Walker, Cane, Wheelchair, Crutches, etc.)? Emergency Room Patient: Screened in ED PATIENT GENDER DATA: Female. status: : No status: NO. PATIENT RELEVANT IMPLANT DATA REVIEWED: Not Applicable RADIOLOGY DEPARTMENT: General X-ray: Exam(s) Completed: Chest X-Ray PERIPHERAL IV DATA: Not applicable SIGNED BY: Amita Domingo, RT(R) August 09, 2023 10:48 AM Normal [facility] CBC W Auto Differential pane l (Bld)on 08-09-2023 Basophils (Bld) [#/Vol] 0.04 10*3/uL Normal <0.11 [facility] Comment on above: Order Comment: Speci men Type: BLOOD SPECIMENOrdering Facility: [facility] Address: [address] [place] [address] Performed By: #### 5 7021-8 ####[facility] LABORATORYCLIA [id number] [place] [address] [place] Basophils/100 WBC (Bld) 0.4 % Normal [facility] Comment on above: Order Comment: Speci men Type: BLOOD SPECIMENOrdering Facility: [facility] Address: [address] [place] [address] Performed By: #### 5 7021-8 ####[facility] LABORATORYCLIA [id number] [place] [address] [place] Differential cell count method Nom (Bld) Auto Normal [facility] Comment on above: Order Comment: Speci men Type: BLOOD SPECIMENOrdering Facility: [facility] Address: [address] [place] [address] Performed By: #### 5 7021-8 ####[facility] LABORATORYCLIA [id number] [place] [address] [place] Eosinophils (Bld) [#/Vol] 0.18 10*3/uL Normal <0.46 [facility] Comment on above: Order Comment: Speci men Type: BLOOD SPECIMENOrdering Facility: [facility] Address: [facility] [place] [address] Performed By: #### 5 7021-8 ####[facility] LABORATORYCLIA [id number] [place] [address] [place] Eosinophils/100 WBC (Bld) 1.7 % Normal [facility] Comment on above: Order Comment: Speci men Type: BLOOD SPECIMENOrdering Facility: [facility] Address: [address] [place] [address] Performed By: #### 5 7021-8 ####[facility] LABORATORYCLIA [id number] [address] [place] Erythrocyte distribution width (RBC) [Ratio] 11.5 % Normal 11.5-15.0 [facility] Comment on above: Order Comment: Speci men Type: BLOOD SPECIMENOrdering Facility: [facility] Address: [address] [place] [address] Performed By: #### 5 7021-8 ####[facility] LABORATORYCLIA [id number] [address] [place] Hematocrit (Bld) [Volume fraction] 32.2 % Low 36.0-46.0 [facility] Comment on above: Order Comment: Speci men Type: BLOOD SPECIMENOrdering Facility: [facility] Address: [address] [place] [address] Performed By: #### 5 7021-8 ####[facility] LABORATORYCLIA [id number] [address] [place] Hemoglobin (Bld) [Mass/Vol] 11.1 g/dL Low 11.5-15.5 [facility] Comment on above: Order Comment: Speci men Type: BLOOD SPECIMENOrdering Facility: [facility] Address: [address] [place] [address] Performed By: #### 5 7021-8 ####[facility] LABORATORYCLIA [id number] [address] [place] Immature granulocytes (Bld) [#/Vol] 0.05 10*3/uL Normal <0.10 [facility] Comment on above: Order Comment: Speci men Type: BLOOD SPECIMENOrdering Facility: [facility] Address: [address] [place] [address] Performed By: #### 5 7021-8 ####[facility] LABORATORYCLIA [id number] [address] Immature granulocytes/100 WBC (Bld) 0.5 % Normal [facility] Comment on above: Order Comment: Speci men Type: BLOOD SPECIMENOrdering Facility: [facility] Address: [address] [place] [address] Performed By: #### 5 7021-8 ####[facility] LABORATORYCLIA [id number] [address] [place] Lymphocytes (Bld) [#/Vol] 1.79 10*3/uL Normal 1.00-4.00 [facility] Comment on above: Order Comment: Speci men Type: BLOOD SPECIMENOrdering Facility: [facility] Address: [address] [place] [address] Performed By: #### 5 7021-8 ####[facility] LABORATORYCLIA [id number] [address] Lymphocytes/100 WBC (Bld) 16.5 % Normal [facility] Comment on above: Order Comment: Speci men Type: BLOOD SPECIMENOrdering Facility: [facility] Address: [address] [place] [address] Performed By: #### 5 7021-8 ####[facility] LABORATORYCLIA [id number] [address] MCH (RBC) [Entitic mass] 30.5 pg Normal 26.0-34.0 [facility] Comment on above: Order Comment: Speci men Type: BLOOD SPECIMENOrdering Facility: [facility] Address: [address] [place] [address] Performed By: #### 5 7021-8 ####[facility] LABORATORYCLIA [id number] [address] MCHC (RBC) [Mass/Vol] 34.5 g/dL Normal 30.5-36.0 [facility] Comment on above: Order Comment: Speci men Type: BLOOD SPECIMENOrdering Facility: [facility] Address: [address] [place] [address] Performed By: #### 5 7021-8 ####[facility] LABORATORYCLIA [id number] [place] [address] [place] MCV (RBC) [Entitic vol] 88.5 fL Normal 80.0-100.0 [facility] Comment on above: Order Comment: Speci men Type: BLOOD SPECIMENOrdering Facility: [facility] Address: [address] [place] [address] Performed By: #### 5 7021-8 ####[facility] LABORATORYCLIA [id number] [place] [address] [place] Monocytes (Bld) [#/Vol] 0.96 10*3/uL High <0.87 [facility] Comment on above: Order Comment: Speci men Type: BLOOD SPECIMENOrdering Facility: [facility] Address: [address] [place] [address] Performed By: #### 5 7021-8 ####[facility] LABORATORYCLIA [id number] [place] [address] [place] Monocytes/100 WBC (Bld) 8.8 % Normal [facility] Comment on above: Order Comment: Speci men Type: BLOOD SPECIMENOrdering Facility: [facility] Address: [address] [place] [address] Performed By: #### 5 7021-8 ####[facility] LABORATORYCLIA [id number] [place] [address] [place] Neutrophils (Bld) [#/Vol] 7.83 10*3/uL High 1.45-7.50 [facility] Comment on above: Order Comment: Speci men Type: BLOOD SPECIMENOrdering Facility: [facility] Address: [address] [place] [address] Performed By: #### 5 7021-8 ####[facility] LABORATORYCLIA [id number] [place] [address] [place] Neutrophils/100 WBC (Bld) 72.1 % Normal [facility] Comment on above: Order Comment: Speci men Type: BLOOD SPECIMENOrdering Facility: [facility] Address: [address] [place], [place] [address] [address] Performed By: #### 5 7021-8 ####[facility] LABORATORYCLIA [id number] [place] [address] [place] Nucleated RBC (Bld) [#/Vol] 10*3/uL Normal <0.01 [facility] Comment on above: Order Comment: Speci men Type: BLOOD SPECIMENOrdering Facility: [facility] Address: [address] [place] [address] Performed By: #### 5 7021-8 ####[facility] LABORATORYCLIA [id number] [place] [address] [place] Nucleated RBC/100 WBC (Bld) [Ratio] 0.0 /100 WBC Normal [facility] Comment on above: Order Comment: Speci men Type: BLOOD SPECIMENOrdering Facility: [facility] Address: [address] [place] [address] Performed By: #### 5 7021-8 ####[facility] LABORATORYCLIA [id number] [place] [address] [place] Platelet mean volume (Bld) [Entitic vol] 8.2 fL Low 9.0-12.7 [facility] Comment on above: Order Comment: Speci men Type: BLOOD SPECIMENOrdering Facility: [facility] Address: [place] [address] Performed By: #### 5 7021-8 ####[facility] LABORATORYCLIA [id number] [place] [address] [place] Platelets (Bld) [#/Vol] 346 10*3/uL Normal 150-400 [facility] Comment on above: Order Comment: Speci men Type: BLOOD SPECIMENOrdering Facility: [facility] Address: [address] [place] [address] Performed By: #### 5 7021-8 ####[facility] LABORATORYCLIA [id number] [place] [address] [place] RBC (Bld) [#/Vol] 3.64 10*6/uL Low 3.90-5.20 [facility] Comment on above: Order Comment: Speci men Type: BLOOD SPECIMENOrdering Facility: [facility] Address: [address] [place] [address] Performed By: #### 5 7021-8 ####[facility] LABORATORYCLIA [id number] [address] WBC (Bld) [#/Vol] 10.85 10*3/uL Normal 3.70-11.00 [facility] Comment on above: Order Comment: Speci men Type: BLOOD SPECIMENOrdering Facility: [facility] Address: [address] [place] [address] Performed By: #### 5 7021-8 ####[facility] LABORATORYCLIA [id number] [address] Comprehensive metabolic 2000 panelon 08-09-2023 Albumin [Mass/Vol] 4.0 g/dL Normal 3.9-4.9 [facility] Comment on above: Order Comment: Speci men Type: BLOOD SPECIMENOrdering Facility: [facility] Address: [address] [place] [address] Performed By: #### 3 024-7 ####[facility] LABCLIA [id number] [address] [place]#### 77243-5, 11666-7, RAZ0734, 57553-8, 3084-1 ####[facility] LABORATORYCLIA [id number] [address] ALP [Catalytic activity/Vol] 101 U/L Normal 34-123 [facility] Comment on above: Order Comment: Speci men Type: BLOOD SPECIMENOrdering Facility: [facility] Address: [address] [place] [address] Performed By: #### 3 024-7 ####[facility] LABCLIA [id number] [place] [address] [place]#### 92477-5, 44587-9, UEU9247, 72532-1, 3084-1 ####[facility] LABORATORYCLIA [id number] [place] [address] [place] ALT [Catalytic activity/Vol] 11 U/L Normal 7-38 [facility] Comment on above: Order Comment: Speci men Type: BLOOD SPECIMENOrdering Facility: [facility] Address: [place] [address] Performed By: #### 3 024-7 ####[facility] LABCLIA [id number] [place] [address] [place]#### 26128-3, 02449-2, [id number], 05806-6, 3084-1 ####[facility] LABORATORYCLIA [id number] [place] [address] [place] Anion gap [Moles/Vol] 10 mmol/L Normal 9-18 [facility] Comment on above: Order Comment: Speci men Type: BLOOD SPECIMENOrdering Facility: [facility] Address: [place] [address] Performed By: #### 3 024-7 ####[facility] LABCLIA [id number] [place] [address] [place]#### 12415-6, 37334-1, [id number], 15758-2, 3084-1 ####[facility] LABORATORYCLIA [id number] [place] [address] [place] AST [Catalytic activity/Vol] 17 U/L Normal 13-35 [facility] Comment on above: Order Comment: Speci men Type: BLOOD SPECIMENOrdering Facility: [facility] Address: [address] [place] [address] Performed By: #### 3 024-7 ####[facility] LABCLIA [id number] [place] [address] [place]#### 08684-3, 84679-1, VYA1556, 02231-2, 3084-1 ####[facility] LABORATORYCLIA [id number] [place] [address] [place] Bilirubin [Mass/Vol] 0.7 mg/dL Normal 0.2-1.3 [facility] Comment on above: Order Comment: Speci men Type: BLOOD SPECIMENOrdering Facility: [facility] Address: [address] [place] [address] Performed By: #### 3 024-7 ####[facility] LABCLIA [id number] [place] [address] [place]#### 84839-5, 83802-1, BGU2859, 95846-3, 3084-1 ####[facility] LABORATORYCLIA [id number] [place] [address] [place] Calcium [Mass/Vol] 9.0 mg/dL Normal 8.5-10.2 [facility] Comment on above: Order Comment: Speci men Type: BLOOD SPECIMENOrdering Facility: [facility] Address: [address] [place] [address] Performed By: #### 3 024-7 ####[facility] LABCLIA [id number] [place] [address] [place]#### 44262-9, 25670-7, [id number], 66315-6, 3084-1 ####[facility] LABORATORYCLIA [id number] [place] [address] [place] Chloride [Moles/Vol] 93 mmol/L Low 97-105 [facility] Comment on above: Order Comment: Speci men Type: BLOOD SPECIMENOrdering Facility: [facility] Address: [address] [place] [address] Performed By: #### 3 024-7 ####[facility] LABCLIA [id number] [place] [address] [place]#### 91210-3, 49009-4, WAI5517, 98885-3, 3084-1 ####[facility] LABORATORYCLIA [id number] [place] [address] [place] CO2 [Moles/Vol] 23 mmol/L Normal 22-30 [facility] Comment on above: Order Comment: Speci men Type: BLOOD SPECIMENOrdering Facility: [facility] Address: [address] [place] [address] Performed By: #### 3 024-7 ####[facility] LABCLIA [id number] [place] [address] [place]#### 02239-1, 79878-7, EUY5225, 79250-6, 3084-1 ####[facility]ORATORYCLIA [id number] [address] Creatinine [Mass/Vol] 0.94 mg/dL Normal 0.58-0.96 [facility] Comment on above: Order Comment: Speci men Type: BLOOD SPECIMENOrdering Facility: [facility] Address: [address] [place] [address] Performed By: #### 3 024-7 ####[facility] LABCLIA [id number] [address] [place]#### 96495-4, 65958-8, EWG5296, 12703-1, 3084-1 ####[facility] LABORATORYCLIA [id number] [address] Creatinine and Glomerular filtration rate.predicted panel (S/P/Bld) 61 mL/min/1.73m??? Normal >=60 [facility] Comment on above: Order Comment: Speci men Type: BLOOD SPECIMENOrdering Facility: [facility] Address: [address] [place] [address] Result Comment: Hina mated Glomerular Filtration Rate (eGFR) is calculated using the 2020 CKD-EPI creatinine equation. This equation utilizes serum creatinine, sex, and age as parameters. The creatinine assay has traceable calibration to isotope dilution-mass spectrometry. Refer to KDIGO guidelines for clinical interpretation. In patients with unstable renal function, e.g. those with acute kidney injury, the eGFR may not accurately reflect actual GFR. Performed By: #### 3 024-7 ####[facility] LABCLIA [id number] [place] [address] [place]#### 55937-5, 53254-1, DVZ2080, 58733-2, 3084-1 ####[facility] LABORATORYCLIA [id number] [place] [id number] [place] Glucose [Mass/Vol] 117 mg/dL High 74-99 [facility] Comment on above: Order Comment: Speci men Type: BLOOD SPECIMENOrdering Facility: [facility] Address: [address] [place] [address] Result Comment: The [place] [employer] (ADA) provides guidance for cutoff values for fasting glucose and random glucose. The ADA defines fasting as no caloric intake for at least 8 hours. Fasting plasma glucose results between 100 to 125 mg/dL indicate increased risk for diabetes (prediabetes). Fasting plasma glucose results greater than or equal to 126 mg/dL meet the criteria for diagnosis of diabetes. In the absence of unequivocal hyperglycemia, results should be confirmed by repeat testing. In a patient with classic symptoms of hyperglycemia or hyperglycemic crisis, random plasma glucose results greater than or equal to 200 mg/dL meet the criteria for diagnosis of diabetes. Reference: Standards of Medical Care in Diabetes 2016, [place] [employer]. Diabetes Care. 2016.39(Suppl 1). Performed By: #### 3 024-7 ####[facility] LABCLIA [id number] [place] [address] [place]#### 65850-5, 72225-5, GCF3742, 05341-0, 3084-1 ####[facility] LABORATORYCLIA [id number] [place] [address] [place] Potassium [Moles/Vol] 4.5 mmol/L Normal 3.7-5.1 [facility] Comment on above: Order Comment: Speci men Type: BLOOD SPECIMENOrdering Facility: [facility] Address: [address] [place] [address] Performed By: #### 3 024-7 ####[facility] LABCLIA [id number] [place] [address] [place]#### 49737-0, 69224-6, YTB0952, 11808-4, 3084-1 ####[facility]ORATORYCLIA [id number] [place] [address] [place] Protein [Mass/Vol] 6.4 g/dL Normal 6.3-8.0 [facility] Comment on above: Order Comment: Speci men Type: BLOOD SPECIMENOrdering Facility: [facility] Address: [address] [place] [address] Performed By: #### 3 024-7 ####[facility] LABCLIA [id number] [place] [address] [place]#### 01844-1, 01109-6, NWN1493, 00390-1, 3084-1 ####[facility]ORATORYCLIA [id number] [place] [address] [place] Sodium [Moles/Vol] 126 mmol/L Low 136-144 [facility] Comment on above: Order Comment: Speci men Type: BLOOD SPECIMENOrdering Facility: [facility] Address: [address] [place] [address] Performed By: #### 3 024-7 ####[facility] LABCLIA [id number] [place] [address] [place]#### 03564-4, 47257-1, LLR9563, 73092-7, 3084-1 ####[facility]ORATORYCLIA [id number] [place] [address] [place] Urea nitrogen [Mass/Vol] 11 mg/dL Normal 7-21 [facility] Comment on above: Order Comment: Speci men Type: BLOOD SPECIMENOrdering Facility: [facility] Address: [address] [place] [address] Performed By: #### 3 024-7 ####[facility] LABCLIA [id number] [place] [address] [place]#### 33106-2, 34455-0, ZWO1846, 34530-3, 3084-1 ####[facility]ORATORYCLIA [id number] [place] [address] [place] Creatinine Unsp time (U) [Ma ss/Vol]on 08-09-2023 Creatinine (U) [Mass/Vol] 31.6 mg/dL Normal 20.0-300.0 [facility] Comment on above: Order Comment: Speci men Type: URINE SPECIMENOrdering Facility: [facility] Address: [address] [place] [address] Performed By: #### 3 5678-2, 52895-1 ####[facility] LABCLIA [id number] [facility] [address] [place] ECG COMPLETEon 08-09-2023 ECG COMPLETE Ventricular Rate : 7 8 BPM Atrial Rate : 78 BPM P-R Interval : 164 ms QRS Duration : 72 ms Q-T Interval : 358 ms QTC Calculation(Bazett) : 408 ms Calculated P [place] : 43 degrees Calculated R [place] : 9 degrees Calculated T [place] : 48 degrees NORMAL SINUS RHYTHM NORMAL ECG no stemi Confirmed by MERRY HART MD ([id number]), editor continuity and script BONNY AVELAR (1940) on 08/09/2023 4:55:33 PM NAME : CASANDRA HENRY PID : [id number] : 1940 Gender : Female Race : ORD : [id number] Procedure Date : Aug 09 2023 08:44:04 Edit Date : Aug 09 2023 16:55:38 Diagnosis: NORMAL SINUS RHYTHM NORMAL ECG no stemi Confirmed by MERRY HART MD ([id number]), editor continuity and script BONNY AVELAR (1940) on 08/09/2023 4:55:33 PM Test Reason : Chest Pain Location : 1 : ER ED Overread By : MERRY HART MD Edited By : BONNY AVELAR Referred By : , Acquired by : [id number], [facility] ED NOTEon 08-09-2023 ED NOTE HNO ID: [id number] Author: Kia Cline RN Service: Nursing Author Type: Registered Nurse Type: ED Notes Filed: 08/09/2023 4:25 PM Note Text: Pt report was called to Andrea MCDANIELS [facility] ED NOTE HNO ID: [id number] Author: Kia Cline RN Service: Nursing Author Type: Registered Nurse Type: ED Notes Filed: 08/09/2023 4:07 PM Note Text: Pt has ambulated to the bathroom gait is steady her is bedside [facility] ED NOTE HNO ID: [id number] Author: Kia Cline RN Service: Nursing Author Type: Registered Nurse Type: ED Notes Filed: 08/09/2023 3:21 PM Note Text: 10 min heads up was provided to 2 [facility] ED NOTE HNO ID: [id number] Author: Kia Cline RN Service: Nursing Author Type: Registered Nurse Type: ED Notes Filed: 08/09/2023 3:08 PM Note Text: Pt and her were both updated of the hospital bed assignment [facility] ED NOTE HNO ID: [id number] Author: Kia Cline RN Service: Nursing Author Type: Registered Nurse Type: ED Notes Filed: 08/09/2023 3:08 PM Note Text: Pt has had a meal tolerated well Her is bedside [facility] ED NOTE HNO ID: [id number] Author: Buck Luna RN Service: ? Author Type: Registered Nurse Type: ED Notes Filed: 08/09/2023 1:17 PM Note Text: Report to Kia [facility] ED NOTE HNO ID: [id number] Author: Buck Luna RN Service: ? Author Type: Registered Nurse Type: ED Notes Filed: 08/09/2023 11:16 AM Note Text: Assumed care from Joss RN/ Torsten MCDANIELS [facility] ED PROV NOTEon 08-09-2023 ED PROV NOTE HNO ID: [id number] Author: Merry Hart MD Service: ? Author Type: Physician Type: ED Provider Notes Filed: 08/09/2023 3:39 PM Note Text: ED Provider Note Patient Name: Casandra Henry : 1940 SERVICE DATE: 08/09/23 History Patient presents with: Palpitations: C/o intermittent palpitations and dizziness since 0100 today Patient is an 83-year-old female coming in with palpitations. She states this has been going on for several months. She just recently got off a Holter monitor but has not got the results. She states she woke up in the middle the night at about 2:00 and felt her heart racing. She had trouble going back to sleep. When asking if it feels like her heart is still racing she is not sure. Denies any chest pain or shortness of breath. She states she has had workups but everything is negative. PAST MEDICAL HISTORY Diagnosis Date Acid reflux Hiatal hernia Hypertension Hypothyroid PAST SURGICAL HISTORY Procedure Laterality Date CARPAL TUNNEL 2001 bilateral COLONOSCOPY FLX DX W/COLLJ SPEC WHEN PFRMD 12/05/2013 Colonoscopy done in [facility] FLX W/REMOVAL LESION BY HOT BX FORCEPS 02/19/[address] Catarino Salas LAPAROSCOPIC DUODENAL BIOPSY 02/13/2020 Catarino Salas MD; duodenal biopsy, gastric antrum biopsy, irregular GE junction bopsy, proximal gastric body soft tissue prominence biopsy all performed FAMILY HISTORY Problem Relation Age of Onset Stroke Mother 84 Hypertension Mother Heart Mother Cancer Father Lung 75 Cancer Paternal Grandmother Hypertension Sister Hypertension Sister Diabetes Sister Diabetes Sister Kidney Disease Brother 74 Social History Tobacco Use Smoking status: Never Smokeless tobacco: Never Substance and Sexual Activity Alcohol use: No Drug use: No Sexual activity: Not on file ALLERGIES No Known Allergies Review of Systems Constitutional: Negative for fever. Respiratory: Negative for shortness of breath. Cardiovascular: Positive for palpitations. Negative for chest pain. All other systems reviewed and are negative. Physical Exam Vitals [08/09/23 0851] BP Pulse Temp Temp src Resp SpO2 Weight Height 178/83 72 36.8 ?C (98.2 ?F) Oral 17 99 % 62 kg (136 lb 11 oz) -- Physical Exam Vitals reviewed. Constitutional: General: She is not in acute distress. Appearance: She is not ill-appearing. HENT: Head: Normocephalic. Mouth/Throat: Mouth: Mucous membranes are moist. Cardiovascular: Rate and Rhythm: Normal rate and regular rhythm. Pulmonary: Effort: Pulmonary effort is normal. Breath sounds: Normal breath sounds. Abdominal: General: There is no distension. Palpations: Abdomen is soft. Tenderness: There is no abdominal tenderness. Musculoskeletal: General: No swelling or tenderness. Cervical back: Neck supple. Skin: General: Skin is warm. Neurological: General: No focal deficit present. Mental Status: She is alert. Sensory: No sensory deficit. Motor: No weakness. Psychiatric: Mood and Affect: Mood normal. Diagnostic Testing ED Labs Ordered and Reviewed - No data to display Procedures ED Course / Clinical Impression Clinical Impressions as of 08/09/23 1506 Hyponatremia Palpitations Essential hypertension Stage 3a chronic kidney disease (HCC) MDM / Disposition / Plan Patient EKG showing normal sinus rhythm. I reviewed the chart and it does not appear that her Holter monitor has returned. Patient had basic labs including cardiac enzymes that was 16 then 11 and 11. Urinalysis is negative. Odium is 126. She did have a previous a few days ago that was 124. She did talk with her senior contracts manager from [place] who changed one of her water pills and then advised her to take a sodium pill which she has not started yet. White blood cell count is normal at 10. Chest x-ray is unremarkable portable chest. I have not seen any abnormal rhythm she remains in normal sinus rhythm here. However with her hyponatremia I feel she likely needs admitted to the hospital. Case was discussed with the hospitalist team Dr. Beckett Differential Diagnoses - Hyponatremia - Cardiac arrhythmias is less likely for the following reason(s): On the monitor remains in normal sinus rhythm Additional Tests or Interventions Additional tests/procedures: ECG EKG INTERPRETATION: Ordered and Reviewed Rhythm: Normal sinus rhythm Rate: 78 [place]: Normal axis Intervals: Normal ID interval QRS Complex: ST Segment: Nonspecific ST-T changes QT Interval: Normal Compared with Prior: Interpretation performed by Merry Hart MD Disposition The patient was admitted. Counseled patient regarding lab results and radiology results. Admitted to Regular Nursing Floor. SIGNATURE: Merry Hart MD - MERRY HART 08/09/23 1539 Normal [facility] HIGH SENSITIVITY TROPONIN T (INITIAL)on 08-09-2023 Troponin T.cardiac High sensitivity method [Mass/Vol] 16 ng/L High <12 [facility] Comment on above: Order Comment: Speci men Type: BLOOD SPECIMENOrdering Facility: [facility] Address: [address], [place] [address] Result Comment: When assessing risk for acute coronary syndromes: In patients undergoing blood draw greater than or equal to 2 hours from symptom onset, with history of very low to moderate risk and non-ischemic ECG, an initial hs-Troponin T less than 12 ng/L AND a 1 hour delta hs-Troponin T less than 3 ng/L should be considered very low risk for 30 day MACE. Performed By: #### 3 024-7 ####[facility] LABCLIA [id number] [facility] [id number] [address] [place]#### 86153-0, 01719-1, [id number], 65118-6, 3084-1 ####[facility]ATORYCLIA [id number] [address] HIGH SENSITIVITY TROPONIN T (SECOND)on 08-09-2023 Troponin T.cardiac High sensitivity method [Mass/Vol] 11 ng/L Normal <12 [facility] Comment on above: Order Comment: Johanne soto Type: BLOOD SPECIMENOrdering Facility: [facility] Address: [address] [place] [address] Result Comment: When assessing risk for acute coronary syndromes: In patients undergoing blood draw greater than or equal to 2 hours from symptom onset, with history of very low to moderate risk and non-ischemic ECG, an initial hs-Troponin T less than 12 ng/L AND a 1 hour delta hs-Troponin T less than 3 ng/L should be considered very low risk for 30 day MACE. Performed By: #### L [id number] ####[facility]ATORYCLIA [id number] [address] HIGH SENSITIVITY TROPONIN T (THIRD) 3 HRS AFTER INITIALon 08-09-2023 Troponin T.cardiac High sensitivity method [Mass/Vol] 11 ng/L Normal <12 [facility] Comment on above: Order Comment: Johanne soto Type: BLOOD SPECIMENOrdering Facility: [facility] Address: [address] [place] [address] Result Comment: When assessing risk for acute coronary syndromes: In patients undergoing blood draw greater than or equal to 2 hours from symptom onset, with history of very low to moderate risk and non-ischemic ECG, an initial hs-Troponin T less than 12 ng/L AND a 1 hour delta hs-Troponin T less than 3 ng/L should be considered very low risk for 30 day MACE. Performed By: #### 3 016-3, [id number] ####[facility]ATORYCLIA [id number] [address] [place] HISTORY PHYSICALon HISTORY PHYSICAL HNO ID: [id number] Author: Liya Rose MD Service: Hospital Medicine Author Type: Physician Type: HANDP Filed: 08/09/2023 4:03 PM Note Text: DEPARTMENT OF HOSPITAL MEDICINE HISTORY AND PHYSICAL EXAM SERVICE DATE: 08/09/2023 Code Status: Not on file SERVICE TIME: 3:35 PM Primary Care Physician: Sreekanth Cortez, DO NIGHT AND WEEKEND COVERAGE: EVENING SHADE COVERAGE: Days: [phone], please page attending physician. Nights: [phone], please page [place] [facility] Night coverage pager [phone]. Subjective CHIEF COMPLAINT: palpitations, hyponatremia HPI: This is a 83 year old female with hypothyroidsm, HTN, GERD, anxiety, who presents with palpitation, dizziness. She has been having these episodes for several months and has been working with her PCP. So far work up significant for elevated TSH and free t4- she has been adjusting down her levothyroxine was on 125mcg now down to 100mcg 6 times a week. She woke up this morning with feeling of palpitations and dizziness. She reports sometimes worsening with standing up. She has not had very high or low bps have been average in 130s range. She was taken off spironolactone last week as her potassium was high. She had 48hr monitor with sinus tach no afib and just finished a zio patch- was submitted last week but report is still pending. She has slowly worsening hyponatremia which she sees nephrology for and was suppose to start salt tabs but hasn't picked up from pharmacy yet was suppose to be filled today. She denies infectious symptoms no cough sore throat, chest pain. She has had some weight loss from loss of appetite Currently she is not having palpitations or dizziness asymptomatic in ER. EKG showed normal sinus rhythm. Na of 126, potasisum improved from 08/04 was 5.6. now 4.5. leukocytosis resolved from 15 to 10. Normal troponins. Cxr neg. She was admitted for further work up PAST MEDICAL HISTORY Diagnosis Date Acid reflux Hiatal hernia Hypertension Hypothyroid Palpitation PAST SURGICAL HISTORY Procedure Laterality Date CARPAL TUNNEL 2000 bilateral COLONOSCOPY FLX DX W/COLLJ SPEC WHEN PFRMD 12/05/2013 Colonoscopy done in [place] COLSC FLX W/REMOVAL LESION BY HOT BX FORCEPS 02/19/[address] Catarino Salas LAPAROSCOPIC DUODENAL BIOPSY 02/13/2020 Catarino Salas MD; duodenal biopsy, gastric antrum biopsy, irregular GE junction bopsy, proximal gastric body soft tissue prominence biopsy all performed FAMILY HISTORY Problem Relation Age of Onset Stroke Mother 84 Hypertension Mother Heart Mother Cancer Father Lung 75 Cancer Paternal Grandmother Hypertension Sister Hypertension Sister Diabetes Sister Diabetes Sister Kidney Disease Brother 74 Social History Tobacco Use Smoking status: Never Smokeless tobacco: Never Substance Use Topics Alcohol use: No Drug use: No PRIOR TO ADMISSION MEDICATIONS: (Not in a hospital admission) ALLERGIES No Known Allergies REVIEW OF SYSTEM: GENERAL: No weight loss, malaise or fevers RESPIRATORY: Negative for cough, hemoptysis, wheezing, COPD, dyspnea or shortness of breath CARDIOVASCULAR: See HPI GI: No nausea, vomiting, or diarrhea MUSCULOSKELETAL: Negative for joint pain or swelling, back pain or muscle pain NEURO: No history of headaches, syncope, paralysis, seizures or tremors Objective PHYSICAL EXAM: BP 178/77 Pulse 87 Temp (Src) 98 (Axillary) Resp 20 Wt 136 lb 11 oz (62.0kg) SpO2 97% O2 Therapy: Room Air Physical Exam Performed: GENERAL: Alert, no distress, cooperative EYES: PERRLA, EOMI OROPHARYNX: Lips, mucosa, and tongue normal. Teeth and gums normal. Oropharynx normal. LUNGS: Lungs clear to auscultation, Good diaphragmatic excursion CARDIAC: Normal S1 and S2; no rubs, murmurs, or gallops ABDOMEN: Abdomen soft, non-tender, BS normal, No masses or organomegaly NEURO: Gait normal. Reflexes normal and symmetric. Sensation grossly intact, Cranial nerves II-XII intact Lines, Drains, and Airways Line Duration Peripheral 08/09/23 0991 [facility] Short Left Antecubital 20 Gauge <1 day Reviewed lines and needs to be continued: REASONS: DATA: Diagnostic tests reviewed for today's visit: Most recent labs Most recent imaging Most recent EKG Assessment/Plan Problem List Hyponatremia (POA: Yes) Essential hypertension (POA: Yes) Hypothyroidism (POA: Yes) Gastroesophageal reflux disease (POA: Yes) Palpitation (POA: Status not on file) HOSPITAL COURSE: Casandra Henry is a 83 year old female with hypothyroidsm, HTN, GERD, anxiety, who presents with palpitation, dizziness. Symptoms do sounds like Palpitations Jitteriness - symptoms do all fit with hyperthyroid - recheck Tsh free t4 - f/u zio patch results when available - tele - monitor electrolytes - consider inc metoprolol dose cont 25mg XL for now - check metanephrines for phe (more content not included)... Normal [facility] Magnesium [Mass/Vol] 1.8 mg/dL Normal 1.7-2.3 [facility] Comment on above: Order Comment: Speci men Type: BLOOD SPECIMENOrdering Facility: [facility] Address: [address] [place] [address] Performed By: #### 3 024-7 ####[facility] LABCLIA [id number] [place] [address] [place]#### 39315-7, 18926-0, [id number], 95972-4, 3084-1 ####[facility]ATORYCLIA [id number] [place] [address] [place] NT-proBNP [facility] 08-09 Natriuretic peptide.B prohormone N-Terminal [Mass/Vol] 104 pg/mL Normal <450 [facility] Comment on above: Order Comment: Speci men Type: BLOOD SPECIMENOrdering Facility: [facility] Address: [address] [place] [address] Performed By: #### 3 024-7 ####[facility] LABCLIA [id number] [place] [address] [place]#### 16125-2, 78727-9, [id number], 11420-4, 3084-1 ####[facility]ORATORYCLIA [id number] [place] [address] [place] O[facility]ality [facility] Osmolality [Osmolality] 262 mosm/kg Low 275-300 [facility] Comment on above: Order Comment: Speci men Type: BLOOD SPECIMENOrdering Facility: [facility] Address: [address] [place] [address] Performed By: #### 2 692-2 ####[facility] LABCLIA [id number] [place] [id number] [place] Osmolality Uron 08-09-2023 Osmolality (U) [Osmolality] 226 mosm/kg Normal 50-1200 [facility] Comment on above: Order Comment: Speci men Type: URINE SPECIMENOrdering Facility: [facility] Address: [address] [place] [address] Performed By: #### 2 695-5 ####[facility] LABCLIA [id number] [place] [address] [place] Sodium ?Tm Ur-sCncon 023 Sodium Unsp time (U) [Moles/Vol] 56 mmol/L Normal 14-216 [facility] Comment on above: Order Comment: Speci men Type: URINE SPECIMENOrdering Facility: [facility] Address: [address] [place] [address] Performed By: #### 3 5678-2, 62620-0 ####[facility] LABIA [id number] [place] [address] [place] T4 Free SerPl-mCncon 023 Free T4 [Mass/Vol] 1.7 ng/dL Normal 0.9-1.7 [facility] Comment on above: Order Comment: Speci men Type: BLOOD SPECIMENOrdering Facility: [facility] Address: [address] [place] [address] Performed By: #### 3 024-7 ####[facility] LABCLIA [id number] [place] [address] [place]#### 95044-0, 61012-3, [id number], 60647-1, 3084-1 ####[facility]ATORYCLIA [id number] [place] [address] [place] TSH SerPl-aCncon 08-09-2023 TSH Qn 0.233 m[IU]/L Low 0.270-4.200 [facility] Comment on above: Order Comment: Speci men Type: BLOOD SPECIMENOrdering Facility: [facility] Address: [place] [address] Performed By: #### 3 016-3, [id number] ####[facility]ORATORYCLIA [id number] [place] [address] [place] US CAROTID BILon 08-09-2023 US CAROTID DOE * * *Final Report* * * DATE OF EXAM: Aug 09 2023 9:02PM [facility] [place]77 - US CAROTID DOE / PROCEDURE REASON: Other * * * * Physician Interpretation * * * * CLINICAL INDICATION: Other COMPARISON: Palpitations. Dizziness. TECHNIQUE: Real-time imaging of the neck vasculature was performed using ultrasound. RIGHT CAROTID RESULTS: Mild plaque in the carotid bulb The maximum peak systolic velocity measurements are as follows: Mid common carotid artery 76 cm per second. Internal carotid artery 117 cm per second. External carotid artery 61 cm per second. Peak internal/mid common systolic ratio 1.8 . The right vertebral artery has anterograde flow. LEFT CAROTID RESULTS: Minimal plaque in the carotid bulb The maximum peak systolic velocity measurements are as follows: Mid common carotid artery 75 cm per second. Internal carotid artery 98 cm per second. External carotid artery 75 cm per second. Peak internal/mid common systolic ratio 1.0 . The left vertebral artery has anterograde flow. IMPRESSION: 1. Mild bilateral plaque, right greater than left 2. Less than 30 % stenosis involving the right internal carotid artery by NASCET criteria. 3. Less than 30 % stenosis involving the left internal carotid artery by NASCET criteria. Associate Software Development Engineer: PSCB Transcribe Date/Time: Aug 10 2023 8:02A Dictated by : DAVID PALACIOS MD This examination was interpreted and the report reviewed and electronically signed by: DAVID PALACIOS MD on Aug 10 2023 8:05AM EST [id number] Normal [facility] US THYROID/PARATHYROIDon US THYROID/PARATHYROID * * *Final Report * * * DATE OF EXAM: Aug 09 2023 9:03PM [facility] [place] 1048 - US THYROID/PARATHYROID / PROCEDURE REASON: Thyroid nodule * * * * Physician Interpretation * * * * EXAMINATION: THYROID ULTRASOUND CLINICAL HISTORY: Thyroid nodule . Hypothyroidism TECHNIQUE: Sonography and Doppler imaging of the thyroid was performed. Images were obtained and stored in a permanent archive. MQ: UST_1 COMPARISON: None. RESULT: Right Lobe: 2.6 x 1.3 x 0.8 cm; heterogeneous echogenicity, expected vascular flow. Left Lobe: 2.4 x 0.8 x 1.0 cm; heterogeneous echogenicity, expected vascular flow. Isthmus: 0.1 cm The most suspicious thyroid nodule(s) (up to four) as below: Nodules: None IMPRESSION: Normal sonographic appearance of the thyroid. Associate Software Development Engineer: DELIA Transcribe Date/Time: Aug 10 2023 8:05A Dictated by : DAVID PALACIOS MD This examination was interpreted and the report reviewed and electronically signed by: DAVID PALACIOS MD on Aug 10 2023 8:07AM EST [id number] Normal [facility] Urate SerPl-mCncon 3 Urate [Mass/Vol] 3.6 mg/dL Normal 2.5-6.6 [facility] Comment on above: Order Comment: Speci men Type: BLOOD SPECIMENOrdering Facility: [facility] Address: [address] [place] [address] Performed By: #### 3 024-7 ####[facility] LABCLIA [id number] [address] [place]#### 81196-7, 47450-8, [id number], 77036-2, 3084-1 ####[facility]ATORYCLIA [id number] [place] [address] [place] Urinalysis complete panel (U )on 08-09-2023 Bacteria LM.HPF (Urine sed) [#/Area] Few Abnormal None Seen [facility] Comment on above: Order Comment: Speci men Type: URINE SPECIMENOrdering Facility: [facility] Address: [address] [place] [address] Performed By: #### 2 4356-8 ####[facility]ORATORYCLIA [id number] [place] [id number] [place] Bilirubin Ql (U) Negative Normal Negative [facility] Comment on above: Order Comment: Speci men Type: URINE SPECIMENOrdering Facility: [facility] Address: [address] [place] [address] Performed By: #### 2 4356-8 ####[facility]ORYCLIA [id number] [address] Clarity (Unsp spec) Clear Normal [facility] Comment on above: Order Comment: Speci men Type: URINE SPECIMENOrdering Facility: [facility] Address: [address] [place] [address] Performed By: #### 2 4356-8 ####[facility]ATORYCLIA [id number] [address] [place] Color (U) Yellow Normal Yellow [facility] Comment on above: Order Comment: Speci men Type: URINE SPECIMENOrdering Facility: [facility] Address: [address] [place] [address] Performed By: #### 2 4356-8 ####[facility]ORATORYCLIA [id number] [address] Epithelial cells LM.HPF (Urine sed) [#/Area] Few Normal [facility] Comment on above: Order Comment: Speci men Type: URINE SPECIMENOrdering Facility: [facility] Address: [address] [place] [address] Performed By: #### 2 4356-8 ####[facility]ORATORYCLIA [id number] [address] Glucose Test strip (U) [Mass/Vol] Negative Normal Negative [facility] Comment on above: Order Comment: Speci men Type: URINE SPECIMENOrdering Facility: [facility] Address: [address] [place] [address] Performed By: #### 2 4356-8 ####[facility]ATORYCLIA [id number] [address] Hemoglobin Ql (U) Negative Normal Negative [facility] Comment on above: Order Comment: Speci men Type: URINE SPECIMENOrdering Facility: [facility] Address: [address] [place] [address] Performed By: #### 2 4356-8 ####[facility]ORATORYCLIA [id number] [place] [address] [place] Ketones Ql (U) Negative Normal Negative [facility] Comment on above: Order Comment: Speci men Type: URINE SPECIMENOrdering Facility: [facility] Address: [address] [place] [address] Performed By: #### 2 4356-8 ####[facility]ORATORYCLIA [id number] [place] [address] [facility] [place] Leukocyte esterase Test strip Ql (U) Trace Abnormal Negative [facility] Comment on above: Order Comment: Speci men Type: URINE SPECIMENOrdering Facility: [facility] Address: [address] [place] [address] Performed By: #### 2 4356-8 ####[facility]ATORYCLIA [id number] [place] [address] [place] Nitrite Ql (U) Negative Normal Negative [facility] Comment on above: Order Comment: Speci men Type: URINE SPECIMENOrdering Facility: [facility] Address: [address] [place] [address] Performed By: #### 2 4356-8 ####[facility]ORATORYCLIA [id number] [place] [address] [facility] [place] pH (U) 6.0 [pH] Normal 5.0-8.0 [facility] Comment on above: Order Comment: Speci men Type: URINE SPECIMENOrdering Facility: [facility] Address: [address] [place] [address] Performed By: #### 2 4356-8 ####[facility]ATORYCLIA [id number] [place] [address] [place] Protein (U) [Mass/Vol] Negative Normal Negative [facility] Comment on above: Order Comment: Speci men Type: URINE SPECIMENOrdering Facility: [facility] Address: [address] [place] [address] Performed By: #### 2 4356-8 ####[facility]ATORYCLIA [id number] [place] [address] [place] RBC LM.HPF (Urine sed) [#/Area] 0-3 /HPF Normal 0-3 /HPF [facility] Comment on above: Order Comment: Speci men Type: URINE SPECIMENOrdering Facility: [facility] Address: [address] [place] [address] Performed By: #### 2 4356-8 ####[facility]ATORYCLIA [id number] [address] Specific gravity (U) [Rel density] 1.010 Normal 1.005-1.030 [facility] Comment on above: Order Comment: Speci men Type: URINE SPECIMENOrdering Facility: [facility] Address: [address] [place] [address] Performed By: #### 2 4356-8 ####[facility]ATORYCLIA [id number] [address] Urobilinogen Ql (U) 0.2 EU/dL Normal 0.2-1.0 EU/dL [facility] Comment on above: Order Comment: Speci men Type: URINE SPECIMENOrdering Facility: [facility] Address: [address] [place] [address] Performed By: #### 2 4356-8 ####[facility]ATORYCLIA [id number] [address] WBC LM.HPF (Urine sed) [#/Area] 0-5 /HPF Normal 0-5 /HPF [facility] Comment on above: Order Comment: Speci men Type: URINE SPECIMENOrdering Facility: [facility] Address: [address] [place] [address] Performed By: #### 2 4356-8 ####[facility]ORATORYCLIA [id number] [address] [place] XR CHEST 1V FRONTAL PORTon 1 10-10-2022 XR CHEST 1V FRONTAL PORT * * *Final Report* * * DATE OF EXAM: Aug 09 2023 10:42AM MDX 5376 - XR CHEST 1V FRONTAL PORT / PROCEDURE REASON: Chest pain * * * * Physician Interpretation * * * * EXAMINATION: CHEST RADIOGRAPH (PORTABLE SINGLE VIEW AP) Exam Date/Time: 08/09/2023 10:42 AM CLINICAL HISTORY: Chest pain MQ: XCPR_5 Comparison: 02/28/2016 RESULT: Lines, tubes, and devices: None. Lungs and pleura: Clear Cardiomediastinal silhouette: Stable cardiomediastinal silhouette. Other: . IMPRESSION: Unremarkable portable chest Associate Software Development Engineer: DELIA Transcribe Date/Time: Aug 09 2023 10:47A Dictated by : ELIZABETH AQUINO MD This examination was interpreted and the report reviewed and electronically signed by: ELIZABETH AQUINO MD on Aug 09 2023 10:48AM EST [id number] Normal [facility] URINE CULTUREon 07-28-2023 Bacteria identified Cx Nom (U) No growth (<1,000 CFU/ml) [facility] Comprehensive metabolic 2000 panelon 07-02-2023 Albumin [Mass/Vol] 3.8 g/dL Low 3.9 - 4.9 g/dL [facility] ALP [Catalytic activity/Vol] 97 U/L 34 - 123 U/L [facility] ALT [Catalytic activity/Vol] 15 U/L 7 - 38 U/L [facility] Anion gap [Moles/Vol] 13 mmol/L 9 - 18 mmol/L [facility] AST [Catalytic activity/Vol] 19 U/L 13 - 35 U/L [facility] Bilirubin [Mass/Vol] 1.1 mg/dL 0.2 - 1 .3 mg/dL [facility] Calcium [Mass/Vol] 8.8 mg/dL 8.5 - 10. 2 mg/dL [facility] Chloride [Moles/Vol] 93 mmol/L Low 97 - 10 5 mmol/L [facility] CO2 [Moles/Vol] 20 mmol/L Low 22 - 30 mmol/L [facility] Creatinine [Mass/Vol] 0.89 mg/dL 0.58 - 0.96 mg/dL [facility] Estimated Glomerular Filtration Rate 65 mL/min/1.73m >=60 mL/min/1.73m [facility] Glucose [Mass/Vol] 97 mg/dL 74 - 99 mg/dL [facility] Potassium [Moles/Vol] 4.6 mmol/L 3.7 - 5.1 mmol/L [facility] Protein [Mass/Vol] 6.1 g/dL Low 6.3 - 8.0 g/dL [facility] Sodium [Moles/Vol] 126 mmol/L Low 136 - 144 mmol/L [facility] Urea nitrogen [Mass/Vol] 9 mg/dL 7 - 21 mg/dL [facility] 12 Lead EKGon 06-29-2023 12 Lead EKG [facility] Cardiovascular Services [address] [place] [address] 12 Lead EKG 06/29/23 1110 MR#: [id number] Acct: [id number] Name: CASANDRA HENRY Rep #: [id number] : 1940 83 From: Kathy Chambers MD Attending Dr: Status: DEP ER Ordering Dr: Josselyn Adhikari DO Date: 06/29/23 Location: ED Sex: F C Admitted: Test Reason : Blood Pressure : / mmHG Vent. Rate : 075 BPM Atrial Rate : 075 BPM P-R Int : 166 ms QRS Dur : 070 ms QT Int : 372 ms P-R-T Axes : 052 -02 031 degrees QTc Int : 415 ms Normal sinus rhythm Normal ECG Confirmed by JOHANA TAYLOR, LEAH ([id number]), editor continuity and script CHYNA RUIZ ([id number]) on 07/05/2023 10:34:11 AM Referred By: Confirmed By:PARISA CHAMBERS MD 07/05/23 1034 Date Kathy Chambers MD CC: Dr. Sreekanth Cortez DO; Dr. Josselyn Adhikari DO Signed Normal [facility] Absolute lymphocyte countOrd ered By: Josselyn Adhikari on 06-29-2023 Lymphocytes Auto (Unsp spec) [#/Vol] 1.63 10*3/uL 0.83-4.51 [facility] Basic Metabolic Profile (BMP )on 06-29-2023 BUN/CRE 11.9 RATIO Normal 06-11 [facility] Comment on above: Order Comment: 'TROP ' Serial specimen #1, #2 or #3: 1 Performed By: #### L 100.0100, L501.4020, L500.2500 #### [facility] [address] [place], [address] CA,Total 9.1 mg/dL Normal 8.5-10.1 [facility] Comment on above: Order Comment: 'TROP ' Serial specimen #1, #2 or #3: 1 Performed By: #### L 100.0100, L501.4020, L500.2500 #### [facility] [address] [place], [address] Chloride [Moles/Vol] 97 mmol/L Low 98-107 [facility] Comment on above: Order Comment: 'TROP ' Serial specimen #1, #2 or #3: 1 Performed By: #### L 100.0100, L501.4020, L500.2500 #### [facility] [address] [place], [address] CO2 [Moles/Vol] 25.0 mmol/L Normal 21.0-32.0 [facility] Comment on above: Order Comment: 'TROP ' Serial specimen #1, #2 or #3: 1 Performed By: #### L 100.0100, L501.4020, L500.2500 #### [facility] [address] [place], [address] Creatinine [Mass/Vol] 0.93 mg/dL Normal 0.55-1.02 [facility] Comment on above: Order Comment: 'TROP ' Serial specimen #1, #2 or #3: 1 Result Comment: The validity of the calculated GFR GFRAA in patients over 70 years has not been determined. Clinical correlation is essential. Performed By: #### L 100.0100, L501.4020, L500.2500 #### [facility] [address] [place], [address] ECRCL 35.80 ml/min Normal [facility] Comment on above: Order Comment: 'TROP ' Serial specimen #1, #2 or #3: 1 Performed By: #### L 100.0100, L501.4020, L500.2500 #### [facility] [address] [place], [address] EST GFR - AA 75 mL/min Normal >60 [facility] Comment on above: Order Comment: 'TROP ' Serial specimen #1, #2 or #3: 1 Result Comment: Afri can [place] GFR Calc Performed By: #### L 100.0100, L501.4020, L500.2500 #### [facility] [address] [place], [address] GAP 6 Normal 5-15 [facility] Comment on above: Order Comment: 'TROP ' Serial specimen #1, #2 or #3: 1 Performed By: #### L 100.0100, L501.4020, L500.2500 #### [facility] [address] [place], [address] GFR/1.73 sq M.predicted among non-blacks MDRD (S/P/Bld) [Vol rate/Area] 62 mL/min/{1.73_m2} Normal >60 [facility] Comment on above: Order Comment: 'TROP ' Serial specimen #1, #2 or #3: 1 Result Comment: Non- GFR Calc Performed By: #### L 100.0100, L501.4020, L500.2500 #### [facility] [address] [place], [address] Glucose [Mass/Vol] 102 mg/dL Normal 74-106 [facility] Comment on above: Order Comment: 'TROP ' Serial specimen #1, #2 or #3: 1 Result Comment: Fast ing Glucose result from 100 to 125 mg/dL suggests IMPAIRED HOMEOSTASIS per A.D.A. criteria. Performed By: #### L 100.0100, L501.4020, L500.2500 #### [facility] [address] [place], [address] Potassium [Moles/Vol] 4.5 mmol/L Normal 3.5-5.1 [facility] Comment on above: Order Comment: 'TROP ' Serial specimen #1, #2 or #3: 1 Performed By: #### L 100.0100, L501.4020, L500.2500 #### [facility] [address] [place], [address] Sodium [Moles/Vol] 128 mmol/L Low 136-145 [facility] Comment on above: Order Comment: 'TROP ' Serial specimen #1, #2 or #3: 1 Performed By: #### L 100.0100, L501.4020, L500.2500 #### [facility] [address] [place], [address] Urea nitrogen [Mass/Vol] 11 mg/dL Normal 7-18 [facility] Comment on above: Order Comment: 'TROP ' Serial specimen #1, #2 or #3: 1 Performed By: #### L 100.0100, L501.4020, L500.2500 #### [facility] [address] [place], [address] Basophil percentageOrdered B y: Josselyn Adhikari on 06-29-2023 Basophil percentage 0 SEEN /hpf 0-5 [facility] Basophils/100 WBC (Bld) 0.3 % 0-1 [facility] Chloride [Moles/Vol] 97 mmol/L 98-107 [facility] Eosinophils/100 WBC (Bld) 3.6 % 0-5 [facility] Glucose [Mass/Vol] 102 mg/dL 74-106 [facility] Comment on above: Fasting Glucose resu lt from 100 to 125 mg/dL suggests IMPAIRED HOMEOSTASIS per A.D.A. criteria. Neutrophils (Bld) [#/Vol] 6.1 10*3/uL 2.0-7.7 [facility] Neutrophils/100 WBC (Bld) 67.9 % 47-70 [facility] Potassium [Moles/Vol] 4.5 mmol/L 3.5-5.1 [facility] Sodium [Moles/Vol] 128 mmol/L 136-145 [facility] WBC (Bld) [#/Vol] 9.1 10*3/uL 4.4-11.0 [facility] Bilirubin Test strip Ql (U)O rdered By: Josselyn Adhikari on 06-29-2023 Bilirubin Ql (U) Negative Negative [facility] Blood erythrocytes count (nu mber/volume)Ordered By: Josselyn Adhikari on 06-29-2023 RBC (Bld) [#/Vol] 3.58 10*6/uL 4.2-5.4 [facility] Blood hemoglobin measurement (mass/volume)Ordered By: Josselyn Adhikari on 06-29-2023 Hemoglobin (Bld) [Mass/Vol] 10.9 g/dL 12.0-15.0 [facility] Blood lymphocytes/100 leukoc ytesOrdered By: Josselyn Adhikari on 06-29-2023 Lymphocytes/100 WBC (Bld) 18.0 % 19-41 [facility] Blood monocytes/100 leukocyt esOrdered By: Josselyn Adhikari on 06-29-2023 Monocytes/100 WBC (Bld) 9.5 % 0-10 [facility] Blood platelet mean volumeOr dered By: Josselyn Adhikari on 06-29-2023 Platelet mean volume (Bld) [Entitic vol] 9.1 fL 6.2-12.0 [facility] Brain/Head without Contrasto n 06-29-2023 Brain/Head without Contrast [facility] Imaging Services [address] [place] [address] Brain/Head without Contrast MR#: [id number] Acct: [id number] Name: CASANDRA HENRY Rep #: [id number] : 1940 F 83 From: Albin damico MD PCP: Dr. Sreekanth Cortez, DO Status: [facility] ER Study: Brain/Head without Contrast Date of Exam: 03/14 Exam# [id number] Ordering Dr: Josselyn Adhikari DO [id number] STUDY: CT BRAIN WITHOUT CONTRAST REASON FOR EXAM: Female, 83 years old. Dizziness, headache RADIATION DOSAGE (If Supplied By Facility): CTDIvol = ( 44.99 ) mGy, DLP = ( 728.62 ) mGycm TECHNIQUE: Transaxial CT imaging of the brain was performed without administration of intravenous contrast material. Individualized dose optimization techniques were used for this CT. COMPARISON: No relevant priors. FINDINGS: Normal soft tissue structures. Normal calvarium. There is mild cerebral atrophy with widening of the extra-axial spaces and ventricular dilatation. There are areas of decreased attenuation within the white matter tracts of the supratentorial brain, consistent with microvascular disease changes. There are small punctate calcifications of the basal ganglia which are seen in the aging brain as a normal variant. Normal brainstem. Normal cerebellum. There is no intracranial hemorrhage. There are no findings of an acute ischemic infarction. Atherosclerotic plaque formation of the cavernous portions of the internal carotid arteries bilaterally. Mild degree of mucosal thickening of the inferior aspect of the right maxillary sinus. CT/Brain/Head without Contrast IMPRESSION: Chronic involutional changes of the brain. Electronically Signed: Albin Powell MD at 12:29 EST Reading Location ID and State: [address] [place] [address] , Service support , CC: Dr. Sreekanth Cortez, DO; Dr. Josselyn Adhikari DO Associate Software Development Engineer: Signed Normal [facility] CBC W/Diff, Automatedon 11-0 Absolute Lymph 1.63 X10 3/uL Normal 0.83-4.51 [facility] Comment on above: Performed By: #### L 100.0100, L501.4020, L500.2500 #### [facility] [address] [place], [address] Absolute Neut 6.1 X10 3/uL Normal 2.0-7.7 [facility] Comment on above: Performed By: #### L 100.0100, L501.4020, L500.2500 #### [facility] [address] [place], [address] Basophils/100 WBC (Bld) 0.3 % Normal 0-1 [facility] Comment on above: Performed By: #### L 100.0100, L501.4020, L500.2500 #### [facility] [address] [place], [address] Eosinophils/100 WBC (Bld) 3.6 % Normal 0-5 [facility] Comment on above: Performed By: #### L 100.0100, L501.4020, L500.2500 #### [facility] [address] [place], [address] Erythrocyte distribution width (RBC) [Ratio] 11.8 % Normal 11.6-14.6 [facility] Comment on above: Performed By: #### L 100.0100, L501.4020, L500.2500 #### [facility] [address] [place], [address] Hematocrit (Bld) [Volume fraction] 32.5 % Low 37-47 [facility] Comment on above: Performed By: #### L 100.0100, L501.4020, L500.2500 #### [facility] [address] [place], [address] Hemoglobin (Bld) [Mass/Vol] 10.9 g/dL Low 12.0-15.0 [facility] Comment on above: Performed By: #### L 100.0100, L501.4020, L500.2500 #### [facility] [address] [place], [address] IG% 0.700 Normal 0.0-0.9 [facility] Comment on above: Result Comment: IG% - Immature Granulocytes (promyelocytes, myelocytes and metamyelocytes) > 1% indicates that a LEFT SHIFT is Present. Performed By: #### L 100.0100, L501.4020, L500.2500 #### [facility] [address] [place], [address] Lymphocytes/100 WBC (Bld) 18.0 % Low 19-41 [facility] Comment on above: Performed By: #### L 100.0100, L501.4020, L500.2500 #### [facility] [address] [place], [address] MCH (RBC) [Entitic mass] 30.4 pg Normal 27.0-32.0 [facility] Comment on above: Performed By: #### L 100.0100, L501.4020, L500.2500 #### [facility] [address] [place], [address] MCHC (RBC) [Mass/Vol] 33.5 g/dL Normal 32-36 [facility] Comment on above: Performed By: #### L 100.0100, L501.4020, L500.2500 #### [facility] [address] [place], [address] MCV (RBC) [Entitic vol] 90.8 fL Normal 81-99 [facility] Comment on above: Performed By: #### L 100.0100, L501.4020, L500.2500 #### [facility] [address] [place], [address] Monocytes/100 WBC (Bld) 9.5 % Normal 0-10 [facility] Comment on above: Performed By: #### L 100.0100, L501.4020, L500.2500 #### [facility] [address] [place], [address] Neutrophils/100 WBC (Bld) 67.9 % Normal 47-70 [facility] Comment on above: Performed By: #### L 100.0100, L501.4020, L500.2500 #### [facility] [address] [place], [address] Nucleated RBC (Bld) [#/Vol] 0 10*3/uL Normal 0-5 [facility] Comment on above: Performed By: #### L 100.0100, L501.4020, L500.2500 #### [facility] [address] [place], [address] Platelet mean volume (Bld) [Entitic vol] 9.1 fL Normal 6.2-12.0 [facility] Comment on above: Performed By: #### L 100.0100, L501.4020, L500.2500 #### [facility] [address] [place], [address] Platelets (Bld) [#/Vol] 338 10*3/uL Normal 150-450 [facility] Comment on above: Performed By: #### L 100.0100, L501.4020, L500.2500 #### [facility] [address] [place], [address] RBC (Bld) [#/Vol] 3.58 10*6/uL Low 4.2-5.4 [facility] Comment on above: Performed By: #### L 100.0100, L501.4020, L500.2500 #### [facility] [address] [place], [address] RDW SD 38.9 fl Normal 35.1-43.9 [facility] Comment on above: Performed By: #### L 100.0100, L501.4020, L500.2500 #### [facility] [address] [place], [address] WBC (Bld) [#/Vol] 9.1 10*3/uL Normal 4.4-11.0 [facility] Comment on above: Performed By: #### L 100.0100, L501.4020, L500.2500 #### [facility] [address] [place], [address] Determination of erythrocyte mean corpuscular volume (MCV)Ordered By: Josselyn Adhikari on 06-29-2023 MCV (RBC) [Entitic vol] 90.8 fL 81-99 [facility] Emergency Department Summary on 06-29-2023 Emergency Department Summary [facility] Medical Records Department [address] [place] [address] Emergency Department Summary 06/29/23 MR#: [id number] Acct: [id number] Name: CASANDRA HENRY Rep #: [id number] : 1940 83 From: Josselyn Adhikari DO PCP: Dr. Sreekanth Cortez DO Status:REG ER Location: ED HPI History of Present Illness Chief Complaint: Dizziness Detail of Chief Complaint: Dizziness and generalized weakness Informant: patient Narrative Narrative: Patient presents to the emergency department complaint of feeling lightheaded and presyncopal for the last 4 months. She has been seeing her primary care physician and they have been adjusting her thyroid medication. She did have a syncopal episode in February of this year but none since. She denies chest pain or shortness of breath out of the ordinary. She denies abdominal pain. She denies urinary symptoms. Patient states she was in the emergency department a month and a half ago and had an elevated white blood cell count and they treated her for some sort of an infection but discharged her home. Patient also with history of hyponatremia. Prior similar symptoms: Yes PFSH PFSH Medical History (Updated 06/29/23 @ 14:[address] Josselyn Adhikari, ) Hypertension Home Medications levothyroxine 100 mcg tablet 100 mcg PO BREAKFAST 08/21/16 [History Last Taken 1 Day Ago 10/02/17] metoprolol tartrate 50 mg tablet 25 mg PO BID 08/21/16 [History Last Taken 1 Day Ago 10/02/17] losartan 50 mg tablet 50 mg PO BID BP CTRL 10/03/17 [History Last Taken 1 Day Ago 10/02/17] ferrous sulfate 325 mg (65 mg iron) tablet 325 mg PO DAILY@0800 #30 tabs 10/06/17 [Rx Last Taken Unknown] cephalexin 500 mg capsule 500 mg PO Q6 #12 CAPSULES 03/20/23 [Rx Last Taken Unknown] omeprazole 20 mg capsule,delayed release 20 mg PO .q3day 03/20/23 [History Last Taken Unknown] spironolactone 25 mg tablet 25 mg PO BID 03/20/23 [History Last Taken Unknown] Allergy/AdvReac Type Severity Reaction Status Date / Time No Known Allergies Allergy Verified 06/29/23 10:48 Surgical History (Updated 03/20/23 @ 17:[address] Frederick Carrasco DO) History of carpal tunnel surgery Social History Smoking Status: Never smoker ROS ROS ED Review of Systems ROS Unobtainable: other Constitutional Constitutional ED: Reports lethargy; Denies chills, fever(s), sweats or weight loss Eyes Eyes: Denies blurry vision, change in vision or diplopia ENT ENT ED: Denies rhinorrhea or sore throat Cardiovascular Cardiovascular: Denies chest pain, orthopnea or racing heartbeat Respiratory/Chest Respiratory/Chest: Denies cough, dyspnea, dyspnea on exertion, orthopnea or sputum Gastrointestinal Gastrointestinal: Denies abdominal pain, diarrhea, nausea or vomiting Genitourinary Genitourinary ED: Denies dysuria, hematuria or urinary frequency Musculoskeletal Musculoskeletal: Denies arthralgias, back pain, myalgias or neck pain Integumentary Denies abscess, Abrasions or rash Neurologic Neurologic: Reports headache(s) and weakness Psychiatric Psychiatric: Denies anxiety, depression or suicidal thoughts Endocrine Endocrinology: Denies polydipsia, polyphagia or polyuria Hematologic/Lymphatic Hematologic/Lymphatic: Denies easy bleeding, easy bruising or lymphadenopathy Allergic/Immunologic Allergic/Immunologic ED: Denies mouth swelling, tongue swelling or urticaria EXAM Physical Exam Const Vital Signs: 06/29/23 10:47 06/29/23 11:38 06/29/23 14:09 Temperature 96.5 F L Temperature Source Temporal Pulse Rate 90 72 Pulse Rate [Lying] 64 Pulse Rate [Sitting (for 1 minute prior to obtaining)] 70 Pulse Rate [Standing (for 1 minute prior to obtaining)] 71 Respiratory Rate 18 18 Blood Pressure 175/81 H Blood Pressure [Lying] 155/65 H Blood Pressure [Sitting (for 1 minute prior to obtaining)] 165/75 H Blood Pressure [Standing (for 1 minute prior to obtaining)] 151/68 H Blood Pressure Mean 112 Blood Pressure Mean [Lying] 95 Blood Pressure Mean [Sitting (for 1 minute prior to obtaining)] 105 Blood Pressure Mean [Standing (for 1 minute prior to obtaining)] 95 Pulse Ox 98 98 Oxygen Delivery Method Room Air Room Air Positive well nourished and well developed General Appearance ED: well developed and NAD HEENT Reports TM's clear and moist mucous membranes normocephalic and atraumatic; Negative for trauma or tenderness Tympanic Membrane ED: Yes TM's clear Eyes PERRL and EOMs intact bilaterally General Eye ED: Negative for pale conjunctiva or scleral icterus Neck no lymphadenopathy, supple and no JVD General: Negative for tenderness Chest Wall inspection of chest normal and palpation of chest normal Chest: Negative for tenderness Resp normal respiratory effort and clear to a (more content not included)... Normal [facility] Hematocrit Auto (Bld) [Volum e fraction]Ordered By: Josselyn Adhikari on 06-29-2023 Hematocrit (Bld) [Volume fraction] 32.5 % 37-47 [facility] Ketones Test strip Ql (U)Ord ered By: Josselyn Adhikari on 06-29-2023 Ketones Ql (U) Negative Negative [facility] L501.4020on 06-29-2023 TROPONIN-I HS 8 pg/mL Normal 3.0-54.0 [facility] Comment on above: Order Comment: 'TROP ' Serial specimen #1, #2 or #3: 1 Result Comment: Plea se Note: New Test Units and Gender Specific Reference Ranges. For more information see Policy Stat Procedure Waldo High Sensitivity Troponin (TNIH) and attachments. Performed By: #### L 100.0100, L501.4020, L500.2500 #### [facility] [address] [place], [address] Laboratory - Chemistry and C hemistry - challengeOrdered By: Josselyn Adhikari on 06-29-2023 CO2 [Moles/Vol] 25.0 mmol/L 21.0-32.0 [facility] Urea nitrogen/Creatinine [Mass ratio] 11.9 mg/mg 10-20 [facility] Laboratory - Hematology and Cell countsOrdered By: Josselyn Adhikari on 06-29-2023 Erythrocyte distribution width (RBC) [Entitic vol] 38.9 fL 35.1-43.9 [facility] Erythrocyte distribution width (RBC) [Ratio] 11.8 % 11.6-14.6 [facility] Immature granulocytes/100 WBC (Bld) 0.700 % 0.0-0.9 [facility] Comment on above: IG% - Immature Granu locytes (promyelocytes, myelocytes and metamyelocytes) > 1% indicates that a LEFT SHIFT is Present. MCH (RBC) [Entitic mass] 30.4 pg 27.0-32.0 [facility] Nucleated RBC/100 WBC (Bld) [Ratio] 0 % 0-5 [facility] MCHC Auto (RBC) [Mass/Vol]Or dered By: Josselyn Adhikari on 06-29-2023 MCHC (RBC) [Mass/Vol] 33.5 g/dL 32-36 [facility] Mucus LM Ql (Urine sed)Order ed By: Josselyn Adhikari on 06-29-2023 Mucus Ql (Urine sed) 0 SEEN /hpf [facility] Nitrite Test strip Ql (U)Ord ered By: Josselyn Onofre on 06-29-2023 Nitrite Ql (U) Negative Negative [facility] No Panel InformationOrdered By: Josselyn Adhikari on 06-29-2023 Estimated Creatinine Clearance Calc 35.80 ml/min [facility] Estimated GFR (MDRD) Amer 75 mL/min >60 [facility] Comment on above: GFR Calc Estimated GFR (MDRD) Non-Af Amer 62 mL/min >60 [facility] Comment on above: Non- GFR Calc Troponin I High Sensitivity 8 pg/mL 3.0-54.0 [facility] Comment on above: Please Note: New Kimmy t Units and Gender Specific Reference Ranges. For more information see Policy Stat Procedure Waldo High Sensitivity Troponin (TNIH) and attachments. Platelets bldOrdered By: Wendy Adhikari on 06-29-2023 Platelets (Bld) [#/Vol] 338 10*3/uL 150-450 [facility] Protein Test strip Ql (U)Ord ered By: Josselyn Adhikari on 06-29-2023 Protein Ql (U) Negative Negative [facility] Serum or plasma calcium lillie urement (mass/volume)Ordered By: Josselyn Adhikari on 06-29-2023 Calcium [Mass/Vol] 9.1 mg/dL 8.5-10.1 [facility] Serum or plasma creatinine m easurement (mass/volume)Ordered By: Josselyn Adhikari on 06-29-2023 Creatinine [Mass/Vol] 0.93 mg/dL 0.55-1.02 [facility] Comment on above: The validity of the calculated GFR & GFRAA in patients over 70 years has not been determined. Clinical correlation is essential. Serum or plasma urea nitroge n measurement (mass/volume)Ordered By: [facility] on 06-29-2023 Urea nitrogen [Mass/Vol] 11 mg/dL 7-18 [facility] Squamous epithelial cells de tection in urine sediment by light microscopyOrdered By: [facility] on 06-29-2023 Epithelial cells.squamous LM Ql (Urine sed) 0 SEEN /hpf 5-10 [facility] Thin prep Papanicolaou smear with manual screeningOrdered By: [facility] on 06-29-2023 Thin prep Papanicolaou smear with manual screening 6 5-15 [facility] Urinalysis, Completeon 06-29 BACTERIA 0 SEEN Normal None Seen [facility] Comment on above: Order Comment: CLEAN CATCH Performed By: #### L 400.0001 #### [facility] [address] [place], [address] EPI,SQUAMOUS 0 SEEN Normal 5-10 [facility] Comment on above: Order Comment: CLEAN CATCH Performed By: #### L 400.0001 #### [facility] [address] [place], [address] Mucus Ql (Urine sed) 0 SEEN Normal [facility] Comment on above: Order Comment: CLEAN CATCH Performed By: #### L 400.0001 #### [facility] [address] [place], [address] RBC 0 SEEN Normal 0-5 [facility] Comment on above: Order Comment: CLEAN CATCH Performed By: #### L 400.0001 #### [facility] [address] [place], [address] WBC 0 SEEN Normal 0-5 [facility] Comment on above: Order Comment: CLEAN CATCH Performed By: #### L 400.9122 #### [facility] [address] [place], [address] Urinalysis, Routine (Dipstic k)on 06-29-2023 BILIRUBIN URINE Normal Negative [facility] Comment on above: Order Comment: CLEAN CATCH Performed By: #### L 400.2010 #### [facility] [address] [place], [address] Clarity (U) Normal Clear [facility] [facility] Comment on above: Order Comment: CLEAN CATCH Performed By: #### L 400.2010 #### [facility] [address] [place], [address] Color (U) Normal Yellow [facility] Comment on above: Order Comment: CLEAN CATCH Performed By: #### L 400.2010 #### [facility] [address] [place], [address] GLUCOSE, UR Normal Normal [facility] Comment on above: Order Comment: CLEAN CATCH Performed By: #### L 400.2010 #### [facility] [address] [place], [address] KETONE UR Normal Negative [facility] Comment on above: Order Comment: CLEAN CATCH Performed By: #### L 400.2010 #### [facility] [address] [place], [address] LEUK ESTERASE Normal Negative [facility] Comment on above: Order Comment: CLEAN CATCH Performed By: #### L 400.2010 #### [facility] [address] [place], [address] Nitrite Ql (U) Normal Negative [facility] Comment on above: Order Comment: CLEAN CATCH Performed By: #### L 400.2010 #### [facility] [address] [place], [address] OCCULT BLOOD-UR Normal Negative [facility] Comment on above: Order Comment: CLEAN CATCH Performed By: #### L 400.2010 #### [facility] [address] [place], [address] pH UR Normal 5.0 - 8.0 [facility] Comment on above: Order Comment: CLEAN CATCH Performed By: #### L 400.2010 #### [facility] [address] [place], [address] PROT DIPSTX Normal Negative [facility] Comment on above: Order Comment: CLEAN CATCH Performed By: #### L 400.2010 #### [facility] [address] [place], [address] SP.GR. DIPSTX Normal 1.002-1.030 [facility] Comment on above: Order Comment: CLEAN CATCH Performed By: #### L 400.2010 #### [facility] [address] [place], [address] UROBILI Normal Normal [facility] Comment on above: Order Comment: CLEAN CATCH Performed By: #### L 400.2010 #### [facility] [address] [place], [address] UR Preservative Normal [facility] Comment on above: Order Comment: CLEAN CATCH Performed By: #### L 400.2010 #### [facility] [address] [place], [address] Urine blood detectionOrdered By: Josselyn Adhikari on 06-29-2023 RBC Ql (U) Negative Negative [facility] RBC Ql (U) 0 SEEN /hpf 0-5 [facility] Urine clarityOrdered By: Wendy Adhikari on 06-29-2023 Clarity (U) Clear Clear [facility] Urine color determinationOrd ered By: Josselyn Adhikari on 06-29-2023 Color (U) Yellow Yellow [facility] Urine glucose detectionOrder ed By: Josselyn Adhikari on 06-29-2023 Glucose Ql (U) Normal mg/dl Normal [facility] Urine leukocyte esterase det ection by dipstickOrdered By: Josselyn Finneyyordan on 06-29-2023 Leukocyte esterase Test strip Ql (U) 25 /ul Negative [facility] Urine pHOrdered By: Josselyn Un gur on 06-29-2023 pH (U) 7.0 [pH] 5.0 - 8.0 [facility] Urine sediment bacteria coun t by microscopy (number/high power field)Ordered By: Josselyn Onofre on 06-29-2023 Bacteria LM.HPF (Urine sed) [#/Area] 0 /[HPF] None Seen [facility] Urine specific gravity measu rementOrdered By: Josselyn Finneyyordan on 06-29-2023 Specific gravity (U) [Rel density] 1.005 1.002-1.030 [facility] Urobilinogen Auto test strip Ql (U)Ordered By: Josselyn Finneyyordan on 06-29-2023 Urobilinogen Ql (U) Normal mg/dl Normal [facility] CBC W Auto Differential pane l (Bld)on 06-16-2023 Basophils (Bld) [#/Vol] 0.05 10*3/uL <0.11 k/uL [facility] Basophils/100 WBC (Bld) 0.4 % [facility] Differential cell count method Nom (Bld) Auto [facility] Eosinophils (Bld) [#/Vol] 0.35 10*3/uL <0.46 k/uL [facility] Eosinophils/100 WBC (Bld) 2.8 % [facility] Erythrocyte distribution width (RBC) [Ratio] 11.9 % 11.5 - 15.0 % [facility] Hematocrit (Bld) [Volume fraction] 37.1 % 36.0 - 46.0 % [facility] Hemoglobin (Bld) [Mass/Vol] 12.4 g/dL 11.5 - 15.5 g/dL [facility] Immature granulocytes (Bld) [#/Vol] 0.05 10*3/uL <0.10 k/uL [facility] Immature granulocytes/100 WBC (Bld) 0.4 % [facility] Lymphocytes (Bld) [#/Vol] 2.24 10*3/uL 1.00 - 4.00 k/uL [facility] Lymphocytes/100 WBC (Bld) 18.1 % [facility] MCH (RBC) [Entitic mass] 30.5 pg 26.0 - 34.0 pg [facility] MCHC (RBC) [Mass/Vol] 33.4 g/dL 30.5 - 36.0 g/dL [facility] MCV (RBC) [Entitic vol] 91.4 fL 80.0 - 100.0 fL [facility] Monocytes (Bld) [#/Vol] 1.18 10*3/uL High <0.87 k/uL [facility] Monocytes/100 WBC (Bld) 9.5 % [facility] Neutrophils (Bld) [#/Vol] 8.52 10*3/uL High 1.45 - 7.50 k/uL [facility] Neutrophils/100 WBC (Bld) 68.8 % [facility] Nucleated RBC (Bld) [#/Vol] <0.01 k/uL [facility] Nucleated RBC/100 WBC (Bld) [Ratio] 0.0 /100 WBC [facility] Platelet mean volume (Bld) [Entitic vol] 10.3 fL 9.0 - 12.7 fL [facility] Platelets (Bld) [#/Vol] 332 10*3/uL 150 - 400 k/uL [facility] RBC (Bld) [#/Vol] 4.06 10*6/uL 3.90 - 5.2 0 m/uL [facility] WBC (Bld) [#/Vol] 12.39 10*3/uL High 3.70 - 11 .00 k/uL [facility] Comprehensive metabolic 2000 panelon 06-16-2023 Albumin [Mass/Vol] 4.1 g/dL 3.9 - 4.9 g/dL [facility] ALP [Catalytic activity/Vol] 127 U/L High 34 - 123 U/L [facility] ALT [Catalytic activity/Vol] 14 U/L 7 - 38 U/L [facility] Anion gap [Moles/Vol] 15 mmol/L 9 - 18 mmol/L [facility] AST [Catalytic activity/Vol] 21 U/L 13 - 35 U/L [facility] Bilirubin [Mass/Vol] 1.2 mg/dL 0.2 - 1 .3 mg/dL [facility] Calcium [Mass/Vol] 9.6 mg/dL 8.5 - 10. 2 mg/dL [facility] Chloride [Moles/Vol] 95 mmol/L Low 97 - 10 5 mmol/L [facility] CO2 [Moles/Vol] 19 mmol/L Low 22 - 30 mmol/L [facility] Creatinine [Mass/Vol] 0.93 mg/dL 0.58 - 0.96 mg/dL [facility] Estimated Glomerular Filtration Rate 62 mL/min/1.73m >=60 mL/min/1.73m [facility] Glucose [Mass/Vol] 100 mg/dL High 74 - 99 mg/dL [facility] Potassium [Moles/Vol] 4.8 mmol/L 3.7 - 5.1 mmol/L [facility] Protein [Mass/Vol] 7.0 g/dL 6.3 - 8.0 g/dL [facility] Sodium [Moles/Vol] 129 mmol/L Low 136 - 144 mmol/L [facility] Urea nitrogen [Mass/Vol] 12 mg/dL 7 - 21 mg/dL [facility] UA DIP, URINE (POC)on 2022 BILIRUBIN UA (POCT) Negative Negative [facility] CLARITY UA (POCT) Clear [facility] COLOR UA (POCT) Yellow [facility] GLUCOSE UA (POCT) Negative Negative mg/dL [facility] Hemoglobin Ql (U) Negative Negative [facility] KETONE UA (POCT) Negative Negative mg/dL [facility] LEUKOCYTES UA (POCT) Small Abnormal Negative [facility] NITRITE UA (POCT) Negative Negative [facility] PH UA (POCT) 6.5 4.5 - 8.0 [facility] Protein Ql (U) Negative Negative mg/dL [facility] SPECIFIC GRAVITY UA (POCT) 1.010 1.005 - 1.030 [facility] UROBILINOGEN UA (POCT) 0.2 E.U./dL Bre l E.U./dL [facility] UA DIP, URINE (POC)on 2022 BILIRUBIN UA (POCT) Negative Negative [facility] CLARITY UA (POCT) Clear [facility] COLOR UA (POCT) Yellow [facility] GLUCOSE UA (POCT) Negative Negative mg/dL [facility] HEMOGLOBIN/BLOOD UA (POCT) Negative Negative [facility] KETONE UA (POCT) Negative Negative mg/dL [facility] LEUKOCYTES UA (POCT) Trace Abnormal Negative [facility] NITRITE UA (POCT) Negative Negative [facility] PH UA (POCT) 6.0 4.5 - 8.0 [facility] Protein Ql (U) Negative Negative mg/dL [facility] SPECIFIC GRAVITY UA (POCT) 1.010 1.005 - 1.030 [facility] UROBILINOGEN UA (POCT) 0.2 E.U./dL Bre l E.U./dL [facility] Urine Cultureon 03-22-2023 [facility] Mixed Gram Positive Organisms [place] Count 1000-10,000 MIX[facility] Mixed contaminants. Submit a new specimen if indicated. Normal [facility] Comment on above: Performed By: #### M 100.2200 #### [facility] [address] [place], [address] 12 Lead EKGon 03-20-2023 12 Lead EKG [facility] Cardiovascular Services [address] [place] [address] 12 Lead EKG 03/20/23 1732 MR#: [id number] Acct: [id number] Name: CASANDRA HENRY Rep #: [id number] : 1940 83 From: Kathy Chambers MD Attending Dr: Dr. Frederick Carrasco, Status: DEP ER Ordering Dr: Frederick Carrasco DO Date: 03/20/23 Location: ED Sex: F C Admitted: Test Reason : HTN Blood Pressure : / mmHG Vent. Rate : 084 BPM Atrial Rate : 084 BPM P-R Int : 160 ms QRS Dur : 072 ms QT Int : 342 ms P-R-T Axes : 050 009 058 degrees QTc Int : 404 ms Normal sinus rhythm Nonspecific ST abnormality Abnormal ECG Confirmed by JOHANA TAYLOR, LEAH ([id number]), editor continuity and script CHYNA RUIZ ([id number]) on 03/25/2023 8:31:15 AM Referred By: Confirmed By:PARISA CHAMBERS MD 03/25/23 0831 Date Kathy Chambres MD CC: Dr. Frederick Carrasco, DO; Dr. Sreekanth Cortez DO Signed Normal [facility] Absolute lymphocyte countOrd ered By: Frederick Carrasco on 03-20-2023 Lymphocytes Auto (Unsp spec) [#/Vol] 2.05 10*3/uL 0.83-4.51 [facility] Basic Metabolic Profile (BMP )on 03-20-2023 BUN/CRE 11.9 RATIO Normal 10-20 [facility] Comment on above: Order Comment: 'TROP ' Serial specimen #1, #2 or #3: 1 Performed By: #### L 500.2500, L100.0100, L501.4020 ####[facility] [address] [place], [address] CA,Total 9.3 mg/dL Normal 8.5-10.1 [facility] Comment on above: Order Comment: 'TROP ' Serial specimen #1, #2 or #3: 1 Performed By: #### L 500.2500, L100.0100, L501.4020 ####[facility] [address] [place], [address] Chloride [Moles/Vol] 94 mmol/L Low 98-107 [facility] Comment on above: Order Comment: 'TROP ' Serial specimen #1, #2 or #3: 1 Performed By: #### L 500.2500, L100.0100, L501.4020 ####[facility] [address] [place], [address] CO2 [Moles/Vol] 28.0 mmol/L Normal 21.0-32.0 [facility] Comment on above: Order Comment: 'TROP ' Serial specimen #1, #2 or #3: 1 Performed By: #### L 500.2500, L100.0100, L501.4020 ####[facility] [address] [place], [address] Creatinine [Mass/Vol] 1.09 mg/dL High 0.55-1.02 [facility] Comment on above: Order Comment: 'TROP ' Serial specimen #1, #2 or #3: 1 Result Comment: The validity of the calculated GFR GFRAA in patients over 70 years has not been determined. Clinical correlation is essential. Performed By: #### L 500.2500, L100.0100, L501.4020 ####[facility] [address] [place], [address] ECRCL 30.54 ml/min Normal [facility] Comment on above: Order Comment: 'TROP ' Serial specimen #1, #2 or #3: 1 Performed By: #### L 500.2500, L100.0100, L501.4020 ####[facility] [address] [place], [address] EST GFR - AA 62 mL/min Normal >60 [facility] Comment on above: Order Comment: 'TROP ' Serial specimen #1, #2 or #3: 1 Result Comment: Afri can [place] GFR Calc Performed By: #### L 500.2500, L100.0100, L501.4020 ####[facility] [address] [place], [address] GAP 5 Normal 5-15 [facility] Comment on above: Order Comment: 'TROP ' Serial specimen #1, #2 or #3: 1 Performed By: #### L 500.2500, L100.0100, L501.4020 ####[facility] [address] [place], [address] GFR/1.73 sq M.predicted among non-blacks MDRD (S/P/Bld) [Vol rate/Area] 51 mL/min/{1.73_m2} Low >60 [facility] Comment on above: Order Comment: 'TROP ' Serial specimen #1, #2 or #3: 1 Result Comment: Non- GFR Calc Performed By: #### L 500.2500, L100.0100, L501.4020 ####[facility] [address] [place], [address] Glucose [Mass/Vol] 120 mg/dL High 74-106 [facility] Comment on above: Order Comment: 'TROP ' Serial specimen #1, #2 or #3: 1 Result Comment: Fast ing Glucose result from 100 to 125 mg/dL suggests IMPAIRED HOMEOSTASIS per A.D.A. criteria. Performed By: #### L 500.2500, L100.0100, L501.4020 ####[facility] [address] [place], [address] Potassium [Moles/Vol] 4.3 mmol/L Normal 3.5-5.1 [facility] Comment on above: Order Comment: 'TROP ' Serial specimen #1, #2 or #3: 1 Performed By: #### L 500.2500, L100.0100, L501.4020 ####[facility] [address] [place], [address] Sodium [Moles/Vol] 127 mmol/L Low 136-145 [facility] Comment on above: Order Comment: 'TROP ' Serial specimen #1, #2 or #3: 1 Performed By: #### L 500.2500, L100.0100, L501.4020 ####[facility] [address] [place], [address] Urea nitrogen [Mass/Vol] 13 mg/dL Normal 7-18 [facility] Comment on above: Order Comment: 'TROP ' Serial specimen #1, #2 or #3: 1 Performed By: #### L 500.2500, L100.0100, L501.4020 ####[facility] [address] [place], [address] Basophil percentageOrdered B y: Frederick Carrasco on 03-20-2023 Basophil percentage 10-25 SEEN /hpf 0-5 [facility] Basophils/100 WBC (Bld) 0.3 % 0-1 [facility] Chloride [Moles/Vol] 94 mmol/L 98-107 [facility] Eosinophils/100 WBC (Bld) 4.3 % 0-5 [facility] Glucose [Mass/Vol] 120 mg/dL 74-106 [facility] Comment on above: Fasting Glucose resu lt from 100 to 125 mg/dL suggests IMPAIRED HOMEOSTASIS per A.D.A. criteria. Neutrophils (Bld) [#/Vol] 5.8 10*3/uL 2.0-7.7 [facility] Neutrophils/100 WBC (Bld) 63.0 % 47-70 [facility] Potassium [Moles/Vol] 4.3 mmol/L 3.5-5.1 [facility] Sodium [Moles/Vol] 127 mmol/L 136-145 [facility] WBC (Bld) [#/Vol] 9.2 10*3/uL 4.4-11.0 [facility] Bilirubin Test strip Ql (U)O rdered By: Frederick Carrasco on 03-20-2023 Bilirubin Ql (U) Negative Negative [facility] Blood erythrocytes count (nu mber/volume)Ordered By: Frederick Carrasco on 03-20-2023 RBC (Bld) [#/Vol] 4.17 10*6/uL 4.2-5.4 [facility] Blood hemoglobin measurement (mass/volume)Ordered By: Frederick Carrasco on 03-20-2023 Hemoglobin (Bld) [Mass/Vol] 13.0 g/dL 12.0-15.0 [facility] Blood lymphocytes/100 leukoc ytesOrdered By: Frederick Carrasco on 03-20-2023 Lymphocytes/100 WBC (Bld) 22.2 % 19-41 [facility] Blood monocytes/100 leukocyt esOrdered By: Frederick Carrasco on 03-20-2023 Monocytes/100 WBC (Bld) 9.9 % 0-10 [facility] Blood platelet mean volumeOr dered By: Frederick Carrasco on 03-20-2023 Platelet mean volume (Bld) [Entitic vol] 8.6 fL 6.2-12.0 [facility] CBC W/Diff, Automatedon 07-2 Absolute Lymph 2.05 X10 3/uL Normal 0.83-4.51 [facility] Comment on above: Performed By: #### L 500.2500, L100.0100, L501.4020 ####[facility] [address] [place], [address] Absolute Neut 5.8 X10 3/uL Normal 2.0-7.7 [facility] Comment on above: Performed By: #### L 500.2500, L100.0100, L501.4020 ####[facility] [address] [place], [address] Basophils/100 WBC (Bld) 0.3 % Normal 0-1 [facility] Comment on above: Performed By: #### L 500.2500, L100.0100, L501.4020 ####[facility] [address] [place], [address] Eosinophils/100 WBC (Bld) 4.3 % Normal 0-5 [facility] Comment on above: Performed By: #### L 500.2500, L100.0100, L501.4020 ####[facility] [address] [place], [address] Erythrocyte distribution width (RBC) [Ratio] 11.5 % Low 11.6-14.6 [facility] Comment on above: Performed By: #### L 500.2500, L100.0100, L501.4020 ####[facility] [address] [place], [address] Hematocrit (Bld) [Volume fraction] 37.2 % Normal 37-47 [facility] Comment on above: Performed By: #### L 500.2500, L100.0100, L501.4020 ####[facility] [address] [place], [address] Hemoglobin (Bld) [Mass/Vol] 13.0 g/dL Normal 12.0-15.0 [facility] Comment on above: Performed By: #### L 500.2500, L100.0100, L501.4020 ####[facility] [address] [place], [address] IG% 0.300 Normal 0.0-0.9 [facility] Comment on above: Result Comment: IG% - Immature Granulocytes (promyelocytes, myelocytes and metamyelocytes) > 1% indicates that a LEFT SHIFT is Present. Performed By: #### L 500.2500, L100.0100, L501.4020 ####[facility] [address] [place], [address] Lymphocytes/100 WBC (Bld) 22.2 % Normal 19-41 [facility] Comment on above: Performed By: #### L 500.2500, L100.0100, L501.4020 ####[facility] [address] [place], [address] MCH (RBC) [Entitic mass] 31.2 pg Normal 27.0-32.0 [facility] Comment on above: Performed By: #### L 500.2500, L100.0100, L501.4020 ####[facility] [address] [place], [address] MCHC (RBC) [Mass/Vol] 34.9 g/dL Normal 32-36 [facility] Comment on above: Performed By: #### L 500.2500, L100.0100, L501.4020 ####[facility] [address] [place], [address] MCV (RBC) [Entitic vol] 89.2 fL Normal 81-99 [facility] Comment on above: Performed By: #### L 500.2500, L100.0100, L501.4020 ####[facility] [address] [place], [address] Monocytes/100 WBC (Bld) 9.9 % Normal 0-10 [facility] Comment on above: Performed By: #### L 500.2500, L100.0100, L501.4020 ####[facility] [address] [place], [address] Neutrophils/100 WBC (Bld) 63.0 % Normal 47-70 [facility] Comment on above: Performed By: #### L 500.2500, L100.0100, L501.4020 ####[facility] [address] [place], [address] Nucleated RBC (Bld) [#/Vol] 0 10*3/uL Normal 0-5 [facility] Comment on above: Performed By: #### L 500.2500, L100.0100, L501.4020 ####[facility] [address] [place], [address] Platelet mean volume (Bld) [Entitic vol] 8.6 fL Normal 6.2-12.0 [facility] Comment on above: Performed By: #### L 500.2500, L100.0100, L501.4020 ####[facility] [address] [place], [address] Platelets (Bld) [#/Vol] 353 10*3/uL Normal 150-450 [facility] Comment on above: Performed By: #### L 500.2500, L100.0100, L501.4020 ####[facility] [address] [place], [address] RBC (Bld) [#/Vol] 4.17 10*6/uL Low 4.2-5.4 [facility] Comment on above: Performed By: #### L 500.2500, L100.0100, L501.4020 ####[facility] [address] [place], [address] RDW SD 37.2 fl Normal 35.1-43.9 [facility] Comment on above: Performed By: #### L 500.2500, L100.0100, L501.4020 ####[facility] [address] [place], [address] WBC (Bld) [#/Vol] 9.2 10*3/uL Normal 4.4-11.0 [facility] Comment on above: Performed By: #### L 500.2500, L100.0100, L501.4020 ####[facility] [address] [place], [address] Culture, urineOrdered By: Raman Carrasco on 03-20-2023 Bacteria identified Cx Nom (U) Positive [facility] Determination of erythrocyte mean corpuscular volume (MCV)Ordered By: Frederick Carrasco on 03-20-2023 MCV (RBC) [Entitic vol] 89.2 fL 81-99 [facility] Emergency Department Summary on 03-20-2023 Emergency Department Summary [facility] Medical Records Department [address] [place] [address] Emergency Department Summary 03/20/23 MR#: [id number] Acct: [id number] Name: CASANDRA HENRY Rep #: [id number] : 1940 83 From: Frederick Carrasco DO PCP: Dr. Sreekanth Cortez, DO Status:DEP ER Location: ED HPI History of Present Illness Chief Complaint: Hypertension Informant: patient Onset/Context/Timing Onset: Weeks (2) Context: Gradual Onset Timing: Waxes and wanes Quality: Shaky Location: Generalized Worsened by: Nothing Relieved by: Nothing Narrative Narrative: Patient presents with elevated blood pressure that has been waxing and waning over the last 2 weeks. Patient states she saw her primary care physician for this. Patient states she had her medications adjusted recently. Patient states that she still feels tense at times. Patient states she feels shaky at times. Patient states nothing makes it better and nothing makes it worse. Patient denies any chest pain or shortness of breath. Patient admits to occasional headaches. Patient describes these as tension headache. Patient denies any fevers or chills. Patient denies any visual changes. [facility] Medical History (Updated 03/20/23 @ 18:[address] Frederick Carrasco DO) Hypertension Home Medications levothyroxine 100 mcg tablet 100 mcg PO BREAKFAST 08/21/16 [History Last Taken 1 Day Ago 10/02/17] metoprolol tartrate 50 mg tablet 25 mg PO BID 08/21/16 [History Last Taken 1 Day Ago 10/02/17] losartan 50 mg tablet 50 mg PO BID BP CTRL 10/03/17 [History Last Taken 1 Day Ago 10/02/17] ferrous sulfate 325 mg (65 mg iron) tablet 325 mg PO DAILY@0800 #30 tabs 10/06/17 [Rx Last Taken Unknown] cephalexin 500 mg capsule 500 mg PO Q6 #12 CAPSULES 03/20/23 [Rx Last Taken Unknown] omeprazole 20 mg capsule,delayed release 20 mg PO .q3day 03/20/23 [History Last Taken Unknown] spironolactone 25 mg tablet 25 mg PO BID 03/20/23 [History Last Taken Unknown] Allergy/AdvReac Type Severity Reaction Status Date / Time No Known Allergies Allergy Verified 10/09/17 14:31 Surgical History (Updated 03/20/23 @ 17:[address] Frederick Carrasco DO) History of carpal tunnel surgery Social History Smoking Status: Never smoker ROS ROS ED Constitutional Constitutional ED: Denies chills or fever(s) Eyes Eyes: Denies blurry vision or change in vision ENT ENT ED: Denies rhinorrhea or sore throat Cardiovascular Cardiovascular: Denies chest pain or palpitations Respiratory/Chest Respiratory/Chest: Denies cough or dyspnea Gastrointestinal Gastrointestinal: Denies nausea or vomiting Genitourinary Genitourinary ED: Denies dysuria or hematuria Musculoskeletal Musculoskeletal: Denies back pain or neck pain Integumentary Denies abscess or rash Neurologic Neurologic: Reports headache(s); Denies weakness Allergic/Immunologic Allergic/Immunologic ED: Denies mouth swelling or urticaria EXAM Physical Exam Const Vital Signs: 03/20/23 17:10 03/20/23 17:53 Temperature 96.9 F L Temperature Source Temporal Pulse Rate 112 H Respiratory Rate 16 Respiratory Effort Normal Non-Labored Respiratory Pattern Normal Blood Pressure 156/84 H Blood Pressure Mean 108 Pulse Ox 95 Oxygen Delivery Method Room Air Positive well nourished and well developed General Appearance ED: well developed HEENT Reports moist mucous membranes Neck supple and no JVD Resp normal respiratory effort and clear to auscultation bilaterally Cardio regular rate, regular rhythm and no murmurs GI normal to inspection, nondistended, normoactive bowel sounds and non-tender Palpation: soft Extremity normal to inspection General Extremety ED: Negative for edema or tenderness General Extremity: Negative for edema Neuro oriented x3, CN's II-XII intact bilaterally and no sensory deficits noted Sensorium / Orientation: alert Motor Exam: strength 5/5 throughout Psych mental status grossly normal Skin no rashes or lesions noted MDM MDM MDM Narrative Medical decision making narrative: Different leg notes includes hypertensive urgency, cardiac ischemia, acute kidney injury, electrolyte abnormality, and urinary tract infection. EKG will be obtained to assess for cardiac dysrhythmia and cardiac ischemia. CBC will be obtained to assess for leukocytosis and anemia. Basic metabolic profile will be obtained to assess for electrolyte abnormality and renal function. Urinalysis will be obtained to assess for urinary tract infection and hematuria. Lab Data Attestation: I reviewed the patient's lab results. Lab results narrative: CBC was reviewed and was within normal limits. Basic metabolic profile was reviewed. Sodium was slightly low at 127. Creatinine was 1.09. These are cons (more content not included)... Normal [facility] Hematocrit Auto (Bld) [Volum e fraction]Ordered By: Frederick Carrasco on 03-20-2023 Hematocrit (Bld) [Volume fraction] 37.2 % 37-47 [facility] Ketones Test strip Ql (U)Ord ered By: Frederick Carrasco on 03-20-2023 Ketones Ql (U) Negative Negative [facility] L501.4020on 03-20-2023 TROPONIN-I HS 5 pg/mL Normal 3.0-54.0 [facility] Comment on above: Order Comment: 'TROP ' Serial specimen #1, #2 or #3: 1 Result Comment: Plepako chi Note: New Test Units and Gender Specific Reference Ranges. For more information see Policy Stat Procedure Waldo High Sensitivity Troponin (TNIH) and attachments. Performed By: #### L 500.2500, L100.0100, L501.4020 ####[facility] [address] [place], [address] Laboratory - Chemistry and C hemistry - challengeOrdered By: Frederick Carrasco on 03-20-2023 CO2 [Moles/Vol] 28.0 mmol/L 21.0-32.0 [facility] Urea nitrogen/Creatinine [Mass ratio] 11.9 mg/mg 10-20 [facility] Laboratory - Hematology and Cell countsOrdered By: Frederick Carrasco on 03-20-2023 Erythrocyte distribution width (RBC) [Entitic vol] 37.2 fL 35.1-43.9 [facility] Erythrocyte distribution width (RBC) [Ratio] 11.5 % 11.6-14.6 [facility] Immature granulocytes/100 WBC (Bld) 0.300 % 0.0-0.9 [facility] Comment on above: IG% - Immature Granu locytes (promyelocytes, myelocytes and metamyelocytes) > 1% indicates that a LEFT SHIFT is Present. MCH (RBC) [Entitic mass] 31.2 pg 27.0-32.0 [facility] Nucleated RBC/100 WBC (Bld) [Ratio] 0 % 0-5 [facility] MCHC Auto (RBC) [Mass/Vol]Or dered By: Frederick Carrasco on 03-20-2023 MCHC (RBC) [Mass/Vol] 34.9 g/dL 32-36 [facility] Mucus LM Ql (Urine sed)Order ed By: Frederick Carrasco on 03-20-2023 Mucus Ql (Urine sed) 0 SEEN /hpf [facility] Nitrite Test strip Ql (U)Ord ered By: Frederick Carrasco on 03-20-2023 Nitrite Ql (U) Negative Negative [facility] No Panel InformationOrdered By: Frederick Carrasco on 03-20-2023 Estimated Creatinine Clearance Calc 30.54 ml/min [facility] Estimated GFR (MDRD) Amer 62 mL/min >60 [facility] Comment on above: GFR Calc Estimated GFR (MDRD) Non-Af Amer 51 mL/min >60 [facility] Comment on above: Non- GFR Calc Troponin I High Sensitivity 5 pg/mL 3.0-54.0 [facility] Comment on above: Please Note: New Kimmy t Units and Gender Specific Reference Ranges. For more information see Policy Stat Procedure Waldo High Sensitivity Troponin (TNIH) and attachments. Platelets bldOrdered By: Katerina Carrasco on 03-20-2023 Platelets (Bld) [#/Vol] 353 10*3/uL 150-450 [facility] Protein Test strip Ql (U)Ord ered By: Frederick Carrasco on 03-20-2023 Protein Ql (U) Negative Negative [facility] Serum or plasma calcium lillie urement (mass/volume)Ordered By: Frederick Carrasco on 03-20-2023 Calcium [Mass/Vol] 9.3 mg/dL 8.5-10.1 [facility] Serum or plasma creatinine m easurement (mass/volume)Ordered By: Frederick Carrasco on 03-20-2023 Creatinine [Mass/Vol] 1.09 mg/dL 0.55-1.02 [facility] Comment on above: The validity of the calculated GFR & GFRAA in patients over 70 years has not been determined. Clinical correlation is essential. Serum or plasma urea nitroge n measurement (mass/volume)Ordered By: Frederick Carrasco on 03-20-2023 Urea nitrogen [Mass/Vol] 13 mg/dL 7-18 [facility] Squamous epithelial cells de tection in urine sediment by light microscopyOrdered By: Frederick Carrasco on 03-20-2023 Epithelial cells.squamous LM Ql (Urine sed) 0 SEEN /hpf 5-10 [facility] Thin prep Papanicolaou smear with manual screeningOrdered By: Frederick Carrasco on 03-20-2023 Thin prep Papanicolaou smear with manual screening 5 5-15 [facility] Urinalysis, Completeon 03-20 BACTERIA 1+ /hpf Normal None Seen [facility] Comment on above: Order Comment: CLEAN CATCH Performed By: #### L 400.0001 ####[facility] [id number] [place], [place], [id number] WBC 10-25 SEEN Normal 0-5 [facility] Comment on above: Order Comment: CLEAN CATCH Performed By: #### L 400.0001 ####[facility] [address] [place], [address] EPI,SQUAMOUS 0 SEEN Normal 5-10 [facility] Comment on above: Order Comment: CLEAN CATCH Performed By: #### L 400.0001 ####[facility] [address] [place], [address] Mucus Ql (Urine sed) 0 SEEN Normal [facility] Comment on above: Order Comment: CLEAN CATCH Performed By: #### L 400.0001 ####[facility] [address] [place], [place], [id number] RBC 0 SEEN Normal 0-5 [facility] Comment on above: Order Comment: CLEAN CATCH Performed By: #### L 400.0001 ####[facility] [address] [place], [place], [id number] Urine blood detectionOrdered By: Frederick Carrasco on 03-20-2023 RBC Ql (U) Negative Negative [facility] RBC Ql (U) 0 SEEN /hpf 0-5 [facility] Urine clarityOrdered By: Katerina Carrasco on 03-20-2023 Clarity (U) Clear Clear [facility] Urine color determinationOrd ered By: Frederick Carrasco on 03-20-2023 Color (U) Yellow Yellow [facility] Urine glucose detectionOrder ed By: Frederick Carrasco on 03-20-2023 Glucose Ql (U) Normal mg/dl Normal [facility] Urine leukocyte esterase det ection by dipstickOrdered By: Frederick Carrasco on 03-20-2023 Leukocyte esterase Test strip Ql (U) 500 /ul Negative [facility] Urine pHOrdered By: Frederick yan on 03-20-2023 pH (U) 6.5 [pH] 5.0 - 8.0 [facility] Urine sediment bacteria coun t by microscopy (number/high power field)Ordered By: Frederick Carrasco on 03-20-2023 Bacteria LM.HPF (Urine sed) [#/Area] 1 /[HPF] None Seen [facility] Urine specific gravity measu rementOrdered By: Frederick Carrasco on 03-20-2023 Specific gravity (U) [Rel density] 1.005 1.002-1.030 [facility] Urobilinogen Auto test strip Ql (U)Ordered By: Frederick Carrasco on 03-20-2023 Urobilinogen Ql (U) Normal mg/dl Normal [facility] XR Lumbar spine 3 Viewson IMPRESSION: MULTILEVEL DEGENERATIVE CHANGE. 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 Diffuse osteopenia. Multilevel moderate to severe disc space narrowing. Most pronounced at L5-S1. Grade 1 spondylolisthesis of L4 on L5. Degenerative change involving the posterior elements from L3 through S1. Mild dextroscoliosis. Degenerative changes involving the SI joints and hips bilaterally. 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 Diffuse osteopenia. Multilevel moderate to severe disc space narrowing. Most pronounced at L5-S1. Grade 1 spondylolisthesis of L4 on L5. Degenerative change involving the posterior elements from L3 through S1. Mild dextroscoliosis. Degenerative changes involving the SI joints and hips bilaterally. IMPRESSION IMPRESSION: MULTILEVEL DEGENERATIVE CHANGE. 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 DEXTROSCOLIOSIS Associate Software Development Engineer: DELIA Transcribe Date/Time: Dec 28 2022 4:30P Dictated by : REINALDO CALVERT MD This examination was interpreted and the report reviewed and electronically signed by: REINALDO CALVERT MD on Dec 28 2022 4:32PM EST [facility] XR Lumbar spine 3 ViewsOrder ed By: Ccf Provider on 12-28-2022 [facility] XR LUMBAR GENERAL 3V AP/LAT/ L5-S1on 12-25-2022 [facility] XR Lumbar spine 3 Viewson Radiology Study observation (narrative) [facility] UA DIP, URINE (POC)on 2021 BILIRUBIN UA (POCT) Negative Negative [facility] CLARITY UA (POCT) Clear [facility] COLOR UA (POCT) Yellow [facility] GLUCOSE UA (POCT) Negative Negative mg/dL [facility] HEMOGLOBIN/BLOOD UA (POCT) Negative Negative [facility] KETONE UA (POCT) Negative Negative mg/dL [facility] LEUKOCYTES UA (POCT) Small Abnormal Negative [facility] NITRITE UA (POCT) Negative Negative [facility] PH UA (POCT) 6.5 4.5 - 8.0 [facility] Protein Ql (U) Negative Negative mg/dL [facility] SPECIFIC GRAVITY UA (POCT) 1.025 1.005 - 1.030 [facility] UROBILINOGEN UA (POCT) 0.2 E.U./dL Bre l E.U./dL [facility] MG Mammogram Digital Screeni ng Blon 02-24-2017 MG Mammogram Digital Screening Bl Patient Name: CASANDRA HENRY Mammography Exam Date/Time 02/24/2017 09:12:27 EDT Exam MG Mammogram Digital Screening Bl Ordering Physician DO GRANADO NICOLE LEE Accession Number [id number] CPT4 Codes 72957 () Reason For Exam Screening Report PATIENT HISTORY: Patient is postmenopausal. Family history of unknown cancer at age 50 or over in father. Benign excisional biopsy of the left breast, 2006. Took unspecified hormones for 9 years. Patient has never smoked. Patient's BMI is 26.0. TIME SINCE LAST MAMMOGRAM: Last mammogram was performed 1 year and 2 months ago. REASON FOR EXAM: screening, asymptomatic. PROCEDURE: MG MAMMOGRAM DIGITAL SCREENING: FEBRUARY 24, 2017 - Bilateral CC and MLO view(s) were taken. Prior study comparison: December 26, 2015, bilateral screening mammogram performed at [facility]. November 05, 2014, bilateral screening mammogram performed at [facility]. July 27, 2013, bilateral screening mammogram, performed at [facility]. There are scattered fibroglandular densities. No suspicious masses, architectural distortions or suspiciously clustered microcalcifications are identified. There are no significant changes when compared with prior studies. Markings on images: BB's = Nipples; skin lesions Open seneca = Palpable Line = Scar 2D digital mammography imaging was performed and reviewed with CAD. ASSESSMENT: Category 1 Negative No mammographic evidence of malignancy. RECOMMENDATION: Routine screening mammogram of both breasts in 1 year. Final Signed Date and Time: 03/01/2017 11:44 am Signed by: MD VALLEJO LAUREN B [facility] Vital Signs Date Time Vital Sign Value Performing Clinician Facility 02-19-2025 13:22-0400 Diastolic blood pressure 80 mm[Hg] Margoth Chavez APRN.CNP Work Phone: [facility] 02-19-2025 13:22-0400 Systolic blood pressure 170 mm[Hg] Margoth Chavez APRN.CNP Work Phone: [facility] 02-19-2025 12:35-0400 Body mass index (BMI) [Ratio] 26.25 kg/m2 Margoth Mary [employer] Work Phone: [facility] 02-19-2025 12:35-0400 Body weight 64.05 kg Margothrod Averyo [employer]NEY[employer] Work Phone: [facility] 02-19-2025 12:35-0400 Heart rate 68 /min Margothrod Averyo [employer]NEY[employer] Work Phone: [facility] 02-19-2025 12:35-0400 Respiratory rate 16 /min Margoth Averyo [employer] ATT[employer]NEY[employer] Work Phone: [facility] 02-19-2025 12:35-0400 SaO2% (BldA) [Mass fraction] 98 % Margoth Chavez [employer] ATT[employer]NEY[employer] Work Phone: [facility] 02-05-2025 08:41-0400 Body mass index (BMI) [Ratio] 26.4 kg/m2 Sreekanth Cortez DO Work Phone: [facility] 02-05-2025 08:41-0400 Body temperature 98.71 [degF] Sreekanth Cortez DO Work Phone: [facility] 02-05-2025 08:41-0400 Body weight 64.41 kg Sreekanth Cortez DO Work Phone: [facility] 02-05-2025 08:41-0400 Diastolic blood pressure 80 mm[Hg] Sreekanth Cortez DO Work Phone: [facility] 02-05-2025 08:41-0400 Heart rate 84 /min Sreekanth Cortez DO Work Phone: [facility] 02-05-2025 08:41-0400 Respiratory rate 20 /min Sreekanth Cortez DO Work Phone: [facility] 02-05-2025 08:41-0400 Systolic blood pressure 180 mm[Hg] Sreekanth Cortez DO Work Phone: [facility] 12-25-2024 13:45-0400 Diastolic blood pressure 87 mm[Hg] Maribeth Griffiths [employer] Work Phone: [facility] Comment on above: ANTONIETA BP average 12-25-2024 13:45-0400 Heart rate 71 /min Maribeth Podlogar [employer]NEY[employer] Work Phone: [facility] 12-25-2024 13:45-0400 Systolic blood pressure 199 mm[Hg] Maribeth Podlogar [employer] ATT[employer]NEY[employer] Work Phone: [facility] Comment on above: ANTONIETA BP average 12-25-2024 13:16-0400 Body mass index (BMI) [Ratio] 26.28 kg/m2 Maribeth Podlogar [employer] Work Phone: [facility] 12-25-2024 13:16-0400 Body weight 64.14 kg Maribeth Podlogar [employer] Work Phone: [facility] 12-25-2024 13:16-0400 Respiratory rate 18 /min Maribeth Podlogar [employer]NEY[employer] Work Phone: [facility] 12-25-2024 13:16-0400 SaO2% (BldA) [Mass fraction] 96 % Maribeth Podlogar [employer]NEY[employer] Work Phone: [facility] 08-08-2024 08:52-0500 Body mass index (BMI) [Ratio] 26.77 kg/m2 Sreekanth Cortez DO Work Phone: [facility] 08-08-2024 08:52-0500 Body temperature 97.5 [degF] Sreekanth Cortez DO Work Phone: [facility] 08-08-2024 08:52-0500 Body weight 65.32 kg Sreekanth Cortez DO Work Phone: [facility] 08-08-2024 08:52-0500 Diastolic blood pressure 80 mm[Hg] Sreekanth Cortez DO Work Phone: [facility] 08-08-2024 08:52-0500 Heart rate 80 /min Sreekanth Cortez DO Work Phone: [facility] 08-08-2024 08:52-0500 Respiratory rate 16 /min Sreekanth Cortez DO Work Phone: [facility] 08-08-2024 08:52-0500 Systolic blood pressure 140 mm[Hg] Sreekanth Cortez DO Work Phone: [facility] 04-28-2024 08:22-0400 Diastolic blood pressure 80 mm[Hg] Sergei Zurdo [employer] Work Phone: [facility] Comment on above: bp antonieta average 04-28-2024 08:22-0400 Systolic blood pressure 154 mm[Hg] Sergei Zurdo [employer] ATT[employer]NEY[employer] Work Phone: [facility] Comment on above: bp antonieta average 04-28-2024 07:35-0400 Body mass index (BMI) [Ratio] 25.88 kg/m2 Sergei Quijanoman [employer] ATT[employer]NEY[employer] Work Phone: [facility] 04-28-2024 07:35-0400 Body weight 63.14 kg Sergei Quijanoman [employer] ATT[employer] Work Phone: [facility] 04-28-2024 07:35-0400 Heart rate 66 /min Sergei Quijanoman [employer]ARK ATT[employer]NEY[employer] Work Phone: [facility] 04-28-2024 07:35-0400 Respiratory rate 16 /min Sergei Quijanoman [employer] ATT[employer]NEY[employer] Work Phone: [facility] 04-28-2024 07:35-0400 SaO2% (BldA) [Mass fraction] 97 % Sergei Renner [employer]NEY[employer] Work Phone: [facility] 03-23-2024 08:11-0400 Body height 156.2 cm Delilah Traore DO Work Phone: [facility] 03-23-2024 08:11-0400 Body mass index (BMI) [Ratio] 25.82 kg/m2 Delilah Traore DO Work Phone: [facility] 03-23-2024 08:11-0400 Body weight 63 kg Delilah Traore DO Work Phone: [facility] 03-23-2024 08:11-0400 Diastolic blood pressure 90 mm[Hg] Delilah Traore DO Work Phone: [facility] 03-23-2024 08:11-0400 Heart rate 67 /min Delilah Traore DO Work Phone: [facility] 03-23-2024 08:11-0400 SaO2% (BldA) [Mass fraction] 97 % Delilah Traore DO Work Phone: [facility] 03-23-2024 08:11-0400 Systolic blood pressure 152 mm[Hg] Delilah Traore DO Work Phone: [facility] 02-14-2024 09:52-0400 Body mass index (BMI) [Ratio] 25.84 kg/m2 Sreekanth Cortez DO Work Phone: [facility] 02-14-2024 09:52-0400 Body temperature 97.3 [degF] Sreekanth Cortez DO Work Phone: [facility] 02-14-2024 09:52-0400 Body weight 63.05 kg Sreekanth Cortez DO Work Phone: [facility] 02-14-2024 09:52-0400 Diastolic blood pressure 90 mm[Hg] Sreekanth Cortez DO Work Phone: [facility] 02-14-2024 09:52-0400 Heart rate 64 /min Sreekanth Cortez DO Work Phone: [facility] 02-14-2024 09:52-0400 Respiratory rate 16 /min Sreekanth Cortez DO Work Phone: [facility] 02-14-2024 09:52-0400 Systolic blood pressure 160 mm[Hg] Sreekanth Cortez DO Work Phone: [facility] 11-24-2023 08:19-0400 Body height 156.2 cm Gabi More APRN.[employer]ER [employer]OR[employer] Work Phone: [facility] 11-24-2023 08:19-0400 Body weight 62.6 kg Gabibar More [employer] Work Phone: [facility] 11-24-2023 08:19-0400 Diastolic blood pressure 80 mm[Hg] Gabibar More [employer] Work Phone: [facility] 11-24-2023 08:19-0400 Heart rate 71 /min Gabibar More [employer] Work Phone: [facility] 11-24-2023 08:19-0400 SaO2% (BldA) [Mass fraction] 97 % Gabi Derik [employer] Work Phone: [facility] 11-24-2023 08:19-0400 Systolic blood pressure 176 mm[Hg] Gabi Derik [employer] ATT[employer]NEY[employer] Work Phone: [facility] 11-06-2023 08:19-0400 Body temperature 98.6 [degF] Krislyn Aberegg PA Work Phone: [facility] 11-06-2023 08:19-0400 Body weight 63.1 kg Krislyn Aberegg PA Work Phone: [facility] 11-06-2023 08:19-0400 Diastolic blood pressure 76 mm[Hg] Krislyn Aberegg PA Work Phone: [facility] 11-06-2023 08:19-0400 Heart rate 94 /min Krislyn Aberegg PA Work Phone: [facility] 11-06-2023 08:19-0400 Respiratory rate 16 /min Krislyn Aberegg PA Work Phone: [facility] 11-06-2023 08:19-0400 SaO2% (BldA) [Mass fraction] 95 % Krislyn Aberegg PA Work Phone: [facility] 11-06-2023 08:19-0400 Systolic blood pressure 124 mm[Hg] Krislyn Aberegg PA Work Phone: [facility] 10-27-2023 13:01-0500 Body temperature 98.49 [degF] Sreekanth Cortez DO Work Phone: [facility] 10-27-2023 13:01-0500 Body weight 62.14 kg Sreekanth Cortez DO Work Phone: [facility] 10-27-2023 13:01-0500 Diastolic blood pressure 88 mm[Hg] Sreekanth Cortez DO Work Phone: [facility] 10-27-2023 13:01-0500 Heart rate 80 /min Sreekanth Cortez DO Work Phone: [facility] 10-27-2023 13:01-0500 Respiratory rate 20 /min Sreekanth Cortez DO Work Phone: [facility] 10-27-2023 13:01-0500 Systolic blood pressure 146 mm[Hg] Sreekanth Cortez DO Work Phone: [facility] 10-07-2023 07:46-0500 Body weight 62.32 kg Donita Estes [employer] Work Phone: [facility] 10-07-2023 07:46-0500 Diastolic blood pressure 64 mm[Hg] Donita Estes [employer] ATT[employer]NEY[employer] Work Phone: [facility] 10-07-2023 07:46-0500 Heart rate 76 /min Donita Estes [employer] ATT[employer]NEY[employer] Work Phone: [facility] 10-07-2023 07:46-0500 Respiratory rate 16 /min Donita Estes [employer] Work Phone: [facility] 10-07-2023 07:46-0500 SaO2% (BldA) [Mass fraction] 98 % Donita Estes [employer] Work Phone: [facility] 10-07-2023 07:46-0500 Systolic blood pressure 138 mm[Hg] Donita Estes [employer]ARK ATT[employer]NEY[employer] Work Phone: [facility] 07-21-2023 07:13-0500 Body weight 62.87 kg Donita Estes [employer] ATT[employer]NEY[employer] Work Phone: [facility] 07-21-2023 07:13-0500 Diastolic blood pressure 60 mm[Hg] Donita Estes [employer] Work Phone: [facility] 07-21-2023 07:13-0500 Heart rate 80 /min Donita Estes [employer] Work Phone: [facility] 07-21-2023 07:13-0500 Respiratory rate 14 /min Donita Estes [employer] Work Phone: [facility] 07-21-2023 07:13-0500 SaO2% (BldA) [Mass fraction] 98 % Donita Estes [employer] Work Phone: [facility] 07-21-2023 07:13-0500 Systolic blood pressure 138 mm[Hg] Donita Estes [employer] Work Phone: [facility] 07-05-2023 14:01-0500 Body temperature 98.91 [degF] Sreekanth Cortez DO Work Phone: [facility] 07-05-2023 14:01-0500 Body weight 63.5 kg Sreekanth Cortez DO Work Phone: [facility] 07-05-2023 14:01-0500 Diastolic blood pressure 84 mm[Hg] Sreekanth Cortez DO Work Phone: [facility] 07-05-2023 14:01-0500 Heart rate 80 /min Sreekanth Cortez DO Work Phone: [facility] 07-05-2023 14:01-0500 Respiratory rate 16 /min Sreekanth Cortez DO Work Phone: [facility] 07-05-2023 14:01-0500 Systolic blood pressure 138 mm[Hg] Sreekanth Cortez DO Work Phone: [facility] 06-29-2023 15:17-0500 Heart rate 78 /min [facility] 06-29-2023 15:17-0500 Respiratory rate 18 /min [facility] 06-29-2023 15:17-0500 SaO2% (BldA) [Mass fraction] 98 % [facility] 06-29-2023 11:38-0500 Diastolic blood pressure 68 mm[Hg] [facility] 06-29-2023 11:38-0500 Systolic blood pressure 151 mm[Hg] [facility] 06-29-2023 10:47-0500 Body height 154.94 cm [facility] 06-29-2023 10:47-0500 Body mass index (BMI) [Ratio] 26.6 kg/m2 [facility] 06-29-2023 10:47-0500 Body temperature 96.5 [degF] [facility] 06-29-2023 10:47-0500 Body weight 63.95 kg [facility] 06-16-2023 08:27-0400 Body weight 63.14 kg Donita Estes [employer] Work Phone: [facility] 06-16-2023 08:27-0400 Diastolic blood pressure 60 mm[Hg] Donita Estes [employer] Work Phone: [facility] 06-16-2023 08:27-0400 Heart rate 68 /min Donita Estes [employer] Work Phone: [facility] 06-16-2023 08:27-0400 Respiratory rate 16 /min Donita Estes [employer] Work Phone: [facility] 06-16-2023 08:27-0400 Systolic blood pressure 142 mm[Hg] Donita Estes [employer] Work Phone: [facility] 05-17-2023 15:03-0400 Body weight 63.5 kg Donita Estes [employer] Work Phone: [facility] 05-17-2023 15:03-0400 Diastolic blood pressure 60 mm[Hg] Donita Estes [employer] Work Phone: [facility] 05-17-2023 15:03-0400 Heart rate 100 /min Donita Estes [employer] Work Phone: [facility] 05-17-2023 15:03-0400 Respiratory rate 16 /min Donita Estes [employer] Work Phone: [facility] 05-17-2023 15:03-0400 Systolic blood pressure 130 mm[Hg] Donita Estes [employer] Work Phone: [facility] 03-31-2023 17:35-0400 Body temperature 97.5 [degF] Sreekanth Cortez DO Work Phone: [facility] 03-31-2023 17:35-0400 Body weight 63.5 kg Sreekanth Cortez DO Work Phone: [facility] 03-31-2023 17:35-0400 Diastolic blood pressure 70 mm[Hg] Sreekanth Cortez DO Work Phone: [facility] 03-31-2023 17:35-0400 Heart rate 80 /min Sreekanth Cortez DO Work Phone: [facility] 03-31-2023 17:35-0400 Respiratory rate 16 /min Sreekanth Cortez DO Work Phone: [facility] 03-31-2023 17:35-0400 Systolic blood pressure 134 mm[Hg] Sreekanth Cortez DO Work Phone: [facility] 03-20-2023 19:13-0400 Body temperature 98 [degF] [facility] 03-20-2023 19:13-0400 Diastolic blood pressure 68 mm[Hg] [facility] 03-20-2023 19:13-0400 Heart rate 70 /min [facility] 03-20-2023 19:13-0400 Respiratory rate 14 /min [facility] 03-20-2023 19:13-0400 Systolic blood pressure 143 mm[Hg] [facility] 03-20-2023 17:10-0400 Body height 154.94 cm [facility] 03-20-2023 17:10-0400 Body mass index (BMI) [Ratio] 26.2 kg/m2 [facility] 03-20-2023 17:10-0400 Body weight 62.91 kg [facility] 03-20-2023 17:10-0400 SaO2% (BldA) [Mass fraction] 95 % [facility] 03-15-2023 07:45-0400 Body height 157 cm Sreekanth Cortez DO Work Phone: [facility] 03-15-2023 07:45-0400 Body temperature 97.11 [degF] Sreekanth Cortez DO Work Phone: [facility] 03-15-2023 07:45-0400 Body weight 63.05 kg Sreekanth Cortez DO Work Phone: [facility] 03-15-2023 07:45-0400 Diastolic blood pressure 80 mm[Hg] Sreekanth Cortez DO Work Phone: [facility] 03-15-2023 07:45-0400 Heart rate 60 /min Sreekanth Cortez DO Work Phone: [facility] 03-15-2023 07:45-0400 Respiratory rate 16 /min Sreekanth Cortez DO Work Phone: [facility] 03-15-2023 07:45-0400 Systolic blood pressure 138 mm[Hg] Sreekanth Cortez DO Work Phone: [facility] 03-10-2023 10:27-0400 Diastolic blood pressure 71 mm[Hg] Marilyn SIMPSON-C Work Phone: [facility] 03-10-2023 10:27-0400 Heart rate 66 /min Marilyn SIMPSON-C Work Phone: [facility] 03-10-2023 10:27-0400 Systolic blood pressure 133 mm[Hg] Marilyn SIMPSON-C Work Phone: [facility] 03-10-2023 09:56-0400 Body temperature 98.6 [degF] Marilyn SIMPSON-C Work Phone: [facility] 03-10-2023 09:56-0400 Body weight 62.6 kg Marilyn SIMPSON-C Work Phone: [facility] 03-10-2023 09:56-0400 Respiratory rate 16 /min Marilyn SIMPSON-C Work Phone: [facility] 03-10-2023 09:56-0400 SaO2% (BldA) [Mass fraction] 96 % Marilyn Gutierrez PA-C Work Phone: [facility] 12-25-2022 14:40-0400 Diastolic blood pressure 80 mm[Hg] Sreekanth Cortez DO Work Phone: [facility] 12-25-2022 14:40-0400 Systolic blood pressure 150 mm[Hg] Sreekanth Cortez DO Work Phone: [facility] 12-25-2022 13:45-0400 Body temperature 97 [degF] Sreekanth Cortez DO Work Phone: [facility] 12-25-2022 13:45-0400 Body weight 64.86 kg Sreekanth Cortez DO Work Phone: [facility] 12-25-2022 13:45-0400 Heart rate 72 /min Sreekanth Cortez DO Work Phone: [facility] 12-25-2022 13:45-0400 Respiratory rate 16 /min Sreekanth Cortez DO Work Phone: [facility] 08-31-2022 09:14-0500 Body temperature 98.49 [degF] Sreekanth Cortez DO Work Phone: [facility] 08-31-2022 09:14-0500 Body weight 65.32 kg Sreekanth Cortez DO Work Phone: [facility] 08-31-2022 09:14-0500 Diastolic blood pressure 94 mm[Hg] Sreekanth Cortez DO Work Phone: [facility] 08-31-2022 09:14-0500 Heart rate 76 /min Sreekanth Cortez DO Work Phone: [facility] 08-31-2022 09:14-0500 Respiratory rate 20 /min Sreekanth Cortez DO Work Phone: [facility] 08-31-2022 09:14-0500 Systolic blood pressure 138 mm[Hg] Sreekanth Cortez DO Work Phone: [facility] 07-08-2022 07:44-0500 Body weight 64.77 kg Sergei Zurdo [employer] Work Phone: [facility] 07-08-2022 07:44-0500 Diastolic blood pressure 82 mm[Hg] Sergei Zurdo [employer] Work Phone: [facility] 07-08-2022 07:44-0500 Heart rate 70 /min Sergei Zurdo [employer] Work Phone: [facility] 07-08-2022 07:44-0500 Respiratory rate 16 /min Sergei Zurdo [employer] Work Phone: [facility] 07-08-2022 07:44-0500 SaO2% (BldA) [Mass fraction] 96 % Sergei Zurdo [employer] Work Phone: [facility] 07-08-2022 07:44-0500 Systolic blood pressure 130 mm[Hg] Sergei Zurdo [employer] Work Phone: [facility] 04-06-2022 15:12-0400 Body temperature 98.2 [degF] Yann French MD Work Phone: [facility] 04-06-2022 15:12-0400 Body weight 66.59 kg Yann French MD Work Phone: [facility] 04-06-2022 15:12-0400 Diastolic blood pressure 84 mm[Hg] Yann French MD Work Phone: [facility] 04-06-2022 15:12-0400 Heart rate 85 /min Yann French MD Work Phone: [facility] 04-06-2022 15:12-0400 Respiratory rate 21 /min Ynan Frenhc MD Work Phone: [facility] 04-06-2022 15:12-0400 SaO2% (BldA) [Mass fraction] 99 % Yann French MD Work Phone: [facility] 04-06-2022 15:12-0400 Systolic blood pressure 122 mm[Hg] Yann French MD Work Phone: [facility] 02-25-2022 11:26-0400 Diastolic blood pressure 60 mm[Hg] Donita Zurawick [employer] Work Phone: [facility] 02-25-2022 11:26-0400 Heart rate 100 /min Dointa Zurawick [employer] Work Phone: [facility] 02-25-2022 11:26-0400 Systolic blood pressure 136 mm[Hg] Donita Zurawick [employer] Work Phone: [facility] 02-25-2022 10:50-0400 Body height 153 cm Donita Zurawick [employer] Work Phone: [facility] 02-25-2022 10:50-0400 Body weight 64.45 kg Donita Zurawick [employer] Work Phone: [facility] 02-25-2022 10:50-0400 Respiratory rate 16 /min Donita Zurawick [employer] Work Phone: [facility] Encounters Encounter Date Encounter Type Care Provider Facility Start: 02-19-2025 End: 02-19-2025 ambulatory MARGOTH CHAVEZ Facility:[facility] Start: 02-19-2025 End: 02-19-2025 Office outpatient visit 25 minutes Margoth Chavez [employer] Work Phone: [facility] Comment on above: Labile blood pressur e (Primary Dx); Hypertension, essential; Hyponatremia; Fatigue, unspecified type Start: 02-19-2025 End: 02-19-2025 ambulatory SREEKANTH CORTEZ Facility:[facility] Start: 02-05-2025 End: 02-05-2025 Patient encounter procedure Sreekanth L Cortez DO Work Phone: [facility] Comment on above: Hypertension, essent ial (Primary Dx); Stage 3a chronic kidney disease (HCC); Hypothyroidism, unspecified type; Fatigue, unspecified type; Dyslipidemia; Hyponatremia Start: 02-05-2025 End: 02-05-2025 ambulatory SREEKANTH L CORTEZ Facility:[facility] Start: 12-25-2024 End: 12-25-2024 Telephone encounter Marilyn Gutierrez PA-C Work Phone: [facility] Comment on above: Patient Update; Appo intment Start: 12-25-2024 End: 12-25-2024 Patient encounter procedure Maribeth Griffiths APRN.[employer]ER [employer] Work Phone: [facility] Comment on above: Hypertension, essent ial (Primary Dx) Start: 12-25-2024 End: 12-25-2024 ambulatory SREEKANTH L CORTEZ Facility:[facility] Start: 11-21-2024 End: 11-21-2024 Follow-up encounter Sergei Renner APRN.[employer] Work Phone: [facility] Comment on above: Results Start: 11-21-2024 End: 11-28-2024 Telephone encounter Sreekanth Rodriguezrison DO Work Phone: [facility] Comment on above: Patient Update (BP r eadings) Start: 11-16-2024 End: 11-16-2024 ambulatory SREEKANTH L CORTEZ Facility:[facility] Start: 11-09-2024 End: 11-09-2024 Refill Sreekanth L Cortez DO Work Phone: [address] [place] [address] Comment on above: Refill Request Start: 10-11-2024 End: 10-11-2024 Refill Sreekanth L Cortez DO Work Phone: [facility] Comment on above: Refill Request Start: 08-08-2024 End: 08-08-2024 Patient encounter procedure Sreekanth L Cortez DO Work Phone: [facility] Comment on above: Hypothyroidism, unsp ecified type (Primary Dx); Hypertension, essential; Stage 3a chronic kidney disease (HCC); Other iron deficiency anemia; Dyslipidemia; Vitamin D deficiency; Fatigue, unspecified type; Essential hypertension Start: 08-08-2024 End: 08-08-2024 ambulatory SREEKANTH CORTEZ Facility:[facility] Start: 07-12-2024 End: 07-13-2024 Telephone encounter Sergei Renner APRN.[employer] Work Phone: [facility] Comment on above: Results; Orders Start: 07-10-2024 End: 07-10-[address] [facility] Facility:[facility] Start: 06-06-2024 End: 06-06-2024 Telephone encounter Sreekanth Cortez DO Work Phone: [facility] Comment on above: Medication Problem Start: 05-02-2024 End: 05-02-2024 Telephone encounter Sergei Renner APRN.[employer]ER [employer] Work Phone: [facility] Comment on above: Results; Orders Start: 04-28-2024 End: 07-19-2024 Telephone encounter Sergei Renner [employer] Work Phone: [facility] Comment on above: contact outside [facility] ider Start: 04-28-2024 End: 04-28-[address] [facility] Facility:[facility] Start: 04-28-2024 End: 04-28-[address] [facility] Facility:[facility] Start: 04-28-2024 End: 04-28-2024 Patient encounter procedure Sergei Zurdo [employer] Work Phone: [facility] Comment on above: Hypertension, essent ial (Primary Dx); Stage 3a chronic kidney disease (HCC); Hypothyroidism, unspecified type; Other iron deficiency anemia Start: 03-23-2024 End: 03-23-2024 ambulatory DELILAH TRAORE Facility:[facility] Start: 03-23-2024 End: 03-23-2024 Patient encounter procedure Delilah Traore DO Work Phone: Cardiology Comment on above: SVT (supraventricula r tachycardia) (HCC) (Primary Dx); Palpitations; Essential hypertension; Hyperlipidemia, mixed; Hypertension, essential; Palpitation Start: 02-14-2024 End: 02-14-2024 Patient encounter procedure Sreekanth Cortez DO Work Phone: [facility] Comment on above: Essential hypertensi on (Primary Dx); Stage 3a chronic kidney disease (HCC); Hypothyroidism, unspecified type; Other iron deficiency anemia; Vitamin D deficiency Start: 02-09-2024 Telephone encounter Sreekanth shrestha DO Work Phone: [facility] Comment on above: checking to see if l abs are needed Start: 11-24-2023 End: 11-24-2023 Office outpatient visit 15 minutes Gabi More APRN.[employer] Work Phone: Cardiology Comment on above: Hyponatremia (Primar y Dx); Hypertension, essential; Palpitation; Hypothyroidism, unspecified type; Iatrogenic hyperthyroidism Start: 11-10-2023 Refill Sreekanth roper DO Work Phone: [facility] Comment on above: Refill Request Start: 11-07-2023 Telephone encounter Justice SIMPSON Work Phone: [facility] Comment on above: Results Start: 11-06-2023 End: 11-06-2023 Subsequent hospital visit by physician Andre [facility] Work Phone: Radiology Comment on above: Acute cough [R05.1] Start: 11-06-2023 End: 11-06-2023 Patient encounter procedure Justice SIMPSON Work Phone: [facility] Comment on above: Acute cough (Primary Dx); URI, acute Start: 10-27-2023 End: 10-27-2023 Patient encounter procedure Sreekanth Cortez DO Work Phone: [facility] Comment on above: Essential hypertensi on (Primary Dx); Stage 3a chronic kidney disease (HCC); Hyponatremia; Hypothyroidism, unspecified type Start: 10-14-2023 E-mail encounter fro m caregiver Gabi More APRN.[employer] Work Phone: [facility] Start: 10-14-2023 Patient encounter procedure Gabi More [employer] Work Phone: Cardiology Comment on above: Appointment Start: 10-11-2023 Refill Donita Estes [employer] Work Phone: [facility] Comment on above: Refill Request Start: 10-11-2023 Refill Sreekanth roper DO Work Phone: [facility] Comment on above: Refill Request Start: 10-08-2023 Telephone encounter Donita roper [employer] Work Phone: [facility] Comment on above: Results Start: 10-07-2023 End: 10-07-2023 Patient encounter procedure Donita Estes [employer] Work Phone: [facility] Comment on above: Essential hypertensi on (Primary Dx); Hyponatremia; Hypothyroidism, unspecified type; Other iron deficiency anemia; Dyslipidemia Start: 09-11-2023 Telephone encounter Sreekanth shrestha DO Work Phone: [facility] Start: 08-09-2023 End: 08-13-2023 Evaluation and management of inpatient LIYA HARESH Facility:[facility] Start: 08-05-2023 Telephone encounter Donita roper [employer] Work Phone: [facility] Comment on above: Results Start: 07-28-2023 Telephone encounter Donita roper [employer] Work Phone: [facility] Comment on above: Results Start: 07-26-2023 Telephone encounter Sreekanth shrestha DO Work Phone: [facility] Comment on above: Patient Question; La b Orders Start: 07-23-2023 Telephone encounter Sreekanth shrestha DO Work Phone: [facility] Comment on above: Results; concerns Start: 07-21-2023 End: 07-21-2023 Patient encounter procedure Donita Estes [employer] Work Phone: [facility] Comment on above: Dizziness (Primary D x); Hypothyroidism, unspecified type; Essential hypertension; CHECO (generalized anxiety disorder); Hyponatremia Start: 07-08-2023 Telephone encounter Sreekanth shrestha DO Work Phone: [facility] Comment on above: Patient Question Start: 07-05-2023 End: 07-05-2023 Patient encounter procedure Sreekanth Cortez DO Work Phone: [facility] Comment on above: Hyponatremia (Primar y Dx); Anemia, unspecified type; Hypothyroidism, unspecified type; Dizziness; Essential hypertension; Fatigue, unspecified type; Shakiness Start: 06-29-2023 ambulatory Sreekanth Cortez Facilit y:[facility] Start: 06-29-2023 End: 06-29-2023 Emergency department patient visit Josselyn Adhikari Facility:[facility] Start: 06-29-2023 End: 06-29-2023 Emergency department patient visit [facility] Work Phone: Start: 06-29-2023 End: 06-29-2023 Patient encounter procedure Yuan Syed [employer] Work Phone: [facility] Comment on above: Procedure not enmanuel d out (Primary Dx) Start: 06-22-2023 Telephone encounter Sreekanth shrestha DO Work Phone: [facility] Comment on above: Clearance Form from [facility] Start: 06-17-2023 Telephone encounter Donita roper [employer] Work Phone: [facility] Comment on above: Results Start: 06-16-2023 End: 06-16-2023 Patient encounter procedure Donita Estes [employer] Work Phone: [facility] Comment on above: Low sodium levels (P rimary Dx); Hypothyroidism, unspecified type; Other iron deficiency anemia; Dizziness Start: 06-09-2023 Telephone encounter [facility] Start: 05-17-2023 End: 05-17-2023 Patient encounter procedure Donita Estes APRN.[employer]ER [employer] Work Phone: [facility] Comment on above: Dizziness (Primary D x); Hypothyroidism, unspecified type; Essential hypertension Start: 03-31-2023 End: 03-31-2023 Patient encounter procedure Sreekanth Cortez DO Work Phone: [facility] Comment on above: Essential hypertensi on (Primary Dx); Dysuria; Hypothyroidism, unspecified type Start: 03-20-2023 End: 03-20-2023 Emergency department patient visit [facility] Facility:[facility] Start: 03-20-2023 End: 03-20-2023 Emergency department patient visit [facility] Work Phone: Start: 03-15-2023 Refill Donita Estes [employer] Work Phone: [facility] Comment on above: Refill Request Start: 03-15-2023 End: 03-15-2023 Patient encounter procedure Sreekanth Almaraz Cortez DO Work Phone: [facility] Comment on above: Essential hypertensi on (Primary Dx); Hypothyroidism, unspecified type; Bilateral leg edema; Lumbar radiculopathy; Other iron deficiency anemia; Dyslipidemia Start: 03-11-2023 Refill Donita Estes APRN.[employer]ER [employer] Work Phone: [facility] Comment on above: Refill Request Start: 03-10-2023 ambulatory Sreekanth Greenwood jacquelin DO Work Phone: [facility] Comment on above: Dizziness; Hypertens ion Start: 03-10-2023 End: 03-10-2023 Patient encounter procedure Marilyn Gutierrez PA-C Work Phone: [facility] Comment on above: Essential hypertensi on (Primary Dx) Start: 03-09-2023 Refill Donita Estes APRN.[employer]ER [employer] Work Phone: [facility] Comment on above: Refill Request Start: 12-31-2022 Telephone encounter Sreekanth shrestha DO Work Phone: [facility] Comment on above: Results Start: 12-25-2022 End: 12-25-2022 Subsequent hospital visit by physician Andre [facility] Work Phone: Radiology Comment on above: Lumbar radiculopathy [M54.16] Start: 12-25-2022 End: 12-25-2022 Patient encounter procedure Sreekanth Cortez DO Work Phone: [facility] Comment on above: Lumbar radiculopathy (Primary Dx); Chronic midline low back pain with bilateral sciatica Start: 09-12-2022 Refill Donita Estes [employer] Work Phone: [facility] Comment on above: Refill Request Start: 09-10-2022 Refill Donita Estes [employer] Work Phone: [facility] Comment on above: Refill Request Start: 08-31-2022 End: 08-31-2022 Patient encounter procedure Sreekanth Sung Cortez Work Phone: [facility] Comment on above: Essential hypertensi on (Primary Dx); Gastroesophageal reflux disease, unspecified whether esophagitis present; Bilateral leg edema; Hypothyroidism, unspecified type; Vitamin D deficiency; Stage 3a chronic kidney disease (HCC); Dyslipidemia; Other iron deficiency anemia Start: 08-10-2022 Telephone encounter Sergei Partida APRN.CNP Work Phone: [facility] Comment on above: Covid19 Concern Start: 08-10-2022 End: 08-10-2022 ambulatory Sergei Renner APRN.[employer] Work Phone: [facility] Comment on above: COVID (Primary Dx) Start: 08-10-2022 End: 08-10-2022 Telemedicine consultation with patient Sergei Renner APRN.CNP Work Phone: [facility] Start: 07-08-2022 End: 07-08-2022 Patient encounter procedure Sergei Renner APRN.CNP Work Phone: [facility] Comment on above: Essential hypertensi on (Primary Dx); Gastroesophageal reflux disease, unspecified whether esophagitis present Start: 04-06-2022 End: 04-06-2022 Patient encounter procedure Yann French MD Work Phone: [facility] Comment on above: Acute left flank george n (Primary Dx); Urinary frequency Start: 02-26-2022 Telephone encounter Donita Kari sadie [employer] Work Phone: [facility] Comment on above: Results Start: 02-25-2022 End: 02-25-2022 Patient encounter procedure Donita Gonzales [employer]EMARK ATTORNEY.[employer] Work Phone: [facility] Comment on above: Essential hypertensi on (Primary Dx); Bilateral leg edema; Hypothyroidism, unspecified type; Vitamin D deficiency; Stage 3a chronic kidney disease (HCC); Dyslipidemia; Other iron deficiency anemia; Screening for diabetes mellitus Start: 09-01-2018 Patient encounter procedure JOE MUHAMMAD [facility] Start: 02-24-2017 [facility] Procedures Date Procedure Procedure Detail Performing Clinician Start: 02-14-2024 Adult depression scr eening assessment Delilah Traore DO Work Phone: Start: 11-24-2023 Ecg routine ecg w/le ast 12 lds i&r only [facility] Provider Start: 11-06-2023 Radiologic exam ches t 2 views Justice SIMPSON Work Phone: Start: 06-29-2023 CT of head without contrast Start: 05-17-2023 Urnls dip stick/tabl et rgnt auto w/o microscopy Donita Estes [employer]EMARK ATTORNEY[employer] Work Phone: Start: 03-31-2023 Urnls dip stick/tabl et rgnt auto w/o microscopy Sreekanth Cortez DO Work Phone: Start: 03-20-2023 Urine culture Start: 12-25-2022 Radex spine lumbosac ral 2/3 views Sreekanth Cortez DO Work Phone: Start: 04-06-2022 Urnls dip stick/tabl et rgnt auto w/o microscopy Yuan Syed [employer]EMARK ATTORNEY[employer] Work Phone: Start: 02-25-2022 Adult depression scr eening sherron Duckworth Karisadie [employer]EMARK ATTORNEY[employer] Work Phone: Plan of Treatment Date Care Activity Detail Author Start: 02-20-2028 Diabetes Screening Diabetes Screening [facility] Start: 11-17-2027 Diabetes Screening Diabetes Screening [facility] Start: 04-28-2027 Diabetes Screening Diabetes Screening [facility] Start: 02-09-2027 Diabetes Screening Diabetes Screening [facility] Start: 11-22-2026 Diabetes Screening Diabetes Screening [facility] Start: 10-07-2026 Diabetes Screening Diabetes Screening [facility] Start: 09-08-2026 Diabetes Screening Diabetes Screening [facility] Start: 08-04-2026 Diabetes Screening Diabetes Screening [facility] Start: 07-21-2026 Diabetes Screening Diabetes Screening [facility] Start: 07-02-2026 Diabetes Screening Diabetes Screening [facility] Start: 06-16-2026 Diabetes Screening Diabetes Screening [facility] Start: 05-20-2026 Diabetes Screening Diabetes Screening [facility] Start: 03-10-2026 DIABETES SCREEN DIABETES SCREEN [facility] Start: 03-10-2026 Diabetes Screening Diabetes Screening [facility] Start: 11-18-2025 DIABETES SCREEN DIABETES SCREEN [facility] Start: 05-14-2025 End: 05-14-2025 Patient encounter procedure 05/14/2025 2:20 PM EDT Office Visit [facility] [address] [place], [place] [phone] Sreekanth Cortez, [address] [place], [place] [id number] 3 month follow up [facility] Comment on above: 3 month follow up Start: 05-08-2025 End: 08-07-2025 CBC panel - Blood by Automated count COMPLETE BLOOD COUNT Lab Routine Hypertension, essential Stage 3a chronic kidney disease (HCC) Expected: 05/08/2025, Expires: 08/07/2025 [facility] Comment on above: Expected: 05/08/2025, Expires: Start: 05-08-2025 End: 08-07-2025 Comprehensive metabolic 2000 panel - Serum or Plasma COMPREHENSIVE METABOLIC PANEL Lab Routine Hyponatremia Expected: 05/08/2025, Expires: 08/07/2025 [facility] Work Phone: Comment on above: Expected: 05/08/2025, Expires: Start: 05-08-2025 End: 08-07-2025 Thyrotropin [Units/volume] in Serum or Plasma THYROID STIMULATING HORMONE Lab Routine Hypothyroidism, unspecified type Expected: 05/08/2025, Expires: 08/07/2025 [facility] Comment on above: Expected: 05/08/2025, Expires: Start: 05-08-2025 End: 08-07-2025 Thyroxine (T4) free [Mass/volume] in Serum or Plasma T4 FREE/FREE THYROXINE Lab Routine Hypothyroidism, unspecified type Expected: 05/08/2025, Expires: 08/07/2025 [facility] Comment on above: Expected: 05/08/2025, Expires: Start: 04-23-2025 Influenza vaccination Influenza Vaccine (#1) [facility] Start: 02-26-2025 End: 02-26-2025 Patient encounter procedure 02/26/2025 9:00 AM EDT Office Visit [facility] [address] [place] [phone] Margoth Chavez APRN.[facility] [address] [place], [place] [phone] 2 week f/up [facility] Comment on above: 2 week f/up Start: 02-25-2025 DIABETES SCREEN DIABETES SCREEN [facility] Start: 02-13-2025 Anxiety Screening Anxiety Screening [facility] Start: 02-13-2025 Depression Screening Depression Screening [facility] Start: 02-05-2025 End: 02-05-2025 Patient encounter procedure 02/05/2025 9:00 AM EDT Office Visit [facility] [place] [address] [place], [place] [id number] Sreekanth Cortez DO [address] [place], [place] [phone] 6 month follow up [facility] Comment on above: 6 month follow up Start: 08-24-2024 End: 11-23-2024 Thyrotropin [Units/volume] in Serum or Plasma THYROID STIMULATING HORMONE Lab Routine Hypothyroidism, unspecified type Expected: 08/24/2024, Expires: 11/23/2024 [facility] Work Phone: Comment on above: Expected: 08/24/2024, Expires: Start: 08-24-2024 End: 11-23-2024 Thyroxine (T4) free [Mass/volume] in Serum or Plasma T4 FREE/FREE THYROXINE Lab Routine Hypothyroidism, unspecified type Expected: 08/24/2024, Expires: 11/23/2024 [facility] Comment on above: Expected: 08/24/2024, Expires: Start: 08-23-2024 Advance Directive Discussion Advance Directive Discussion [facility] Start: 08-23-2024 Medicare Advantage Annual Wellness Visit Medicare Advantage Annual Wellness Visit [facility] Start: 08-20-2024 DIABETES SCREEN DIABETES SCREEN [facility] Start: 08-20-2024 RSV Vaccine (1 - 1-dose 60+ series) RSV Vaccine (1 - 1-dose 60+ series) [facility] Comment on above: Postponed from 2002 (Declined at t his time) Start: 08-20-2024 RSV Vaccine (1 - 1-dose 75+ series) RSV Vaccine (1 - 1-dose 75+ series) [facility] Comment on above: Postponed from 2017 (Declined at t his time) Start: 08-08-2024 End: 08-08-2024 Patient encounter procedure 08/08/2024 9:00 AM EST Office Visit Family [facility] [address] [place] [id number] Sreekanth Cortez DO [address] [place] [id number] 6 month follow up Family [facility] Comment on above: 6 month follow up Start: 07-28-2024 End: 10-27-2024 CBC panel - Blood by Automated count COMPLETE BLOOD COUNT Lab Routine Hypertension, essential Hypothyroidism, unspecified type Other iron deficiency anemia Expected: 07/28/2024, Expires: 10/27/2024 [facility] Comment on above: Expected: 07/28/2024, Expires: Start: 06-13-2024 End: 09-12-2024 Thyrotropin [Units/volume] in Serum or Plasma THYROID STIMULATING HORMONE Lab Routine Hypothyroidism, unspecified type Expected: 06/13/2024, Expires: 09/12/2024 [facility] Work Phone: Comment on above: Expected: 06/13/2024, Expires: 5 Start: 06-13-2024 End: 09-12-2024 Thyroxine (T4) free [Mass/volume] in Serum or Plasma T4 FREE/FREE THYROXINE Lab Routine Hypothyroidism, unspecified type Expected: 06/13/2024 (Approximate), Expires: 09/12/2024 [facility] Comment on above: Expected: 06/13/2024 (Approximate), Expi res: 09/12/2024 Start: 05-17-2024 Covid-19 Vaccine ( - season) Covid-19 Vaccine ( - 2022- season) [facility] Comment on above: Postponed from 04/23/2023 (Declined at t his time) Start: 05-17-2024 Covid-19 Vaccine (4 - Moderna series) Covid-19 Vaccine (4 - Moderna series) [facility] Comment on above: Postponed from 09/30/2021 (Declined at t his time) Start: 05-17-2024 Urine microalbumin profile DTaP,Tdap,Td Vaccine (1 - Tdap) [facility] Comment on above: Postponed from 1961 (Declined at t his time) Start: 04-28-2024 End: 07-28-2024 Comprehensive metabolic 2000 panel - Serum or Plasma [facility] Comment on above: Expected: 04/28/2024, Expires: 4 Start: 04-28-2024 End: 07-28-2024 Ferritin [Mass/volume] in Serum or Plasma [facility] Comment on above: Expected: 04/28/2024, Expires: 4 Start: 04-28-2024 End: 07-28-2024 Iron and Iron binding capacity panel - Serum or Plasma [facility] Comment on above: Expected: 04/28/2024, Expires: 4 Start: 04-28-2024 End: 07-28-2024 Thyrotropin [Units/volume] in Serum or Plasma [facility] Work Phone: Comment on above: Expected: 04/28/2024, Expires: 4 Start: 04-28-2024 End: 07-28-2024 Thyroxine (T4) free [Mass/volume] in Serum or Plasma [facility] Comment on above: Expected: 04/28/2024, Expires: Start: 04-23-2024 Covid-19 Vaccine ( season) Covid-19 Vaccine () [facility] Start: 04-23-2024 Covid-19 Vaccine () Covid-19 Vaccine () [facility] Start: 04-23-2024 Influenza vaccination Influenza Vaccine (#1) [place] [facility] Start: 03-23-2024 End: 03-23-2024 Patient encounter procedure 03/23/2024 8:20 AM EDT Office Visit Cardiology [address] [place] [id number] Delilah Traore DO [address] [place] [id number] 6 month follow up Cardiology Comment on above: 6 month follow up Start: 03-10-2024 ANNUAL PCP TEAM CHRONIC DISEASE VISIT ANNUAL PCP TEAM CHRONIC DISEASE VISIT [facility] Start: 03-10-2024 SERUM CREATININE SERUM CREATININE [facility] Start: 02-20-2024 Influenza vaccination Influenza Vaccine (#1) [facility] Comment on above: Postponed from 04/23/2023 (Declined at t his time) Start: 02-14-2024 End: 02-14-2024 Patient encounter procedure 02/14/2024 9:40 AM EDT [facility] [address] [facility] [place] [id number] Sreekanth Cortez L, DO [address] [facility] [id number] 3 month follow up [facility] Comment on above: 3 month follow up Start: 02-09-2024 End: 05-10-2024 25-hydroxyvitamin D3 [Mass/volume] in Serum or Plasma VITAMIN D 25 HYDROXY Lab Routine Vitamin D deficiency Expected: 02/09/2024, Expires: 05/10/2024 [facility] Comment on above: Expected: 02/09/2024, Expires: Start: 02-09-2024 End: 05-10-2024 CBC W Auto Differential panel - Blood COMPLETE BLOOD COUNT AND DIFFERENTIAL Lab Routine Other iron deficiency anemia Expected: 02/09/2024, Expires: 05/10/2024 [facility] Comment on above: Expected: 02/09/2024, Expires: Start: 02-09-2024 End: 05-10-2024 Cobalamin (Vitamin B12) [Mass/volume] in Serum or Plasma VITAMIN B12 Lab Routine Stage 3a chronic kidney disease (HCC) Expected: 02/09/2024, Expires: 05/10/2024 [facility] Comment on above: Expected: 02/09/2024, Expires: Start: 02-09-2024 End: 05-10-2024 Comprehensive metabolic 2000 panel - Serum or Plasma COMPREHENSIVE METABOLIC PANEL Lab Routine Stage 3a chronic kidney disease (HCC) Expected: 02/09/2024, Expires: 05/10/2024 [facility] Comment on above: Expected: 02/09/2024, Expires: Start: 02-09-2024 End: 05-10-2024 Thyrotropin [Units/volume] in Serum or Plasma THYROID STIMULATING HORMONE Lab Routine Hypothyroidism, unspecified type Expected: 02/09/2024, Expires: 05/10/2024 [facility] Work Phone: Comment on above: Expected: 02/09/2024, Expires: Start: 02-09-2024 End: 05-10-2024 Thyroxine (T4) free [Mass/volume] in Serum or Plasma T4 FREE/FREE THYROXINE Lab Routine Hypothyroidism, unspecified type Expected: 02/09/2024, Expires: 05/10/2024 [facility] Comment on above: Expected: 02/09/2024, Expires: Start: 12-26-2023 ANNUAL PCP TEAM CHRONIC DISEASE VISIT ANNUAL PCP TEAM CHRONIC DISEASE VISIT [facility] Start: 11-19-2023 SERUM CREATININE SERUM CREATININE [facility] Start: 10-07-2023 End: 01-06-2024 CBC W Auto Differential panel - Blood [facility] Work Phone: Comment on above: Expected: 10/07/2023, Expires: Start: 10-07-2023 End: 01-06-2024 Comprehensive metabolic 2000 panel - Serum or Plasma [facility] Work Phone: Comment on above: Expected: 10/07/2023, Expires: 4 Start: 10-07-2023 End: 01-06-2024 Ferritin [Mass/volume] in Serum or Plasma [facility] Work Phone: Comment on above: Expected: 10/07/2023, Expires: 4 Start: 10-07-2023 End: 01-06-2024 Iron and Iron binding capacity panel - Serum or Plasma [facility] Work Phone: Comment on above: Expected: 10/07/2023, Expires: 4 Start: 10-07-2023 End: 01-06-2024 Lipid 1996 panel - Serum or Plasma [facility] Work Phone: Comment on above: Expected: 10/07/2023, Expires: Start: 10-07-2023 End: 01-06-2024 Thyrotropin [Units/volume] in Serum or Plasma [facility] Work Phone: Comment on above: Expected: 10/07/2023, Expires: 4 Start: 10-07-2023 End: 01-06-2024 Thyroxine (T4) free [Mass/volume] in Serum or Plasma [facility] Work Phone: Comment on above: Expected: 10/07/2023, Expires: Start: 10-07-2023 End: 01-06-2024 Triiodothyronine (T3) [Mass/volume] in Serum or Plasma [facility] Work Phone: Comment on above: Expected: 10/07/2023, Expires: 4 Start: 08-31-2023 ANNUAL PCP TEAM CHRONIC DISEASE VISIT ANNUAL PCP TEAM CHRONIC DISEASE VISIT [facility] Start: 08-23-2023 Advance Directive Discussion Advance Directive Discussion [facility] Start: 08-23-2023 Behavioral Health Screening Behavioral Health Screening [facility] Start: 08-23-2023 Depression Assessment Depression Assessment [facility] Start: 08-12-2023 End: 11-11-2023 Comprehensive metabolic 2000 panel - Serum or Plasma COMP METABOLIC PANEL Lab Routine Hyponatremia Expected: 08/12/2023, Expires: 11/11/2023 [facility] Work Phone: Comment on above: Expected: 08/12/2023, Expires: Start: 08-10-2023 ANNUAL PCP TEAM CHRONIC DISEASE VISIT ANNUAL PCP TEAM CHRONIC DISEASE VISIT [facility] Start: 08-04-2023 End: 11-03-2023 CBC panel - Blood by Automated count CBC Lab Routine Anemia, unspecified type Expected: 08/04/2023, Expires: 11/03/2023 [facility] Work Phone: Comment on above: Expected: 08/04/2023, Expires: 4 Start: 08-04-2023 End: 11-03-2023 CBC W Auto Differential panel - Blood CBC + DIFF Lab Routine Leukocytosis, unspecified type Expected: 08/04/2023, Expires: 11/03/2023 [facility] Work Phone: Comment on above: Expected: 08/04/2023, Expires: 4 Start: 08-04-2023 End: 11-03-2023 Comprehensive metabolic 2000 panel - Serum or Plasma COMP METABOLIC PANEL Lab Routine Anemia, unspecified type Hyponatremia Expected: 08/04/2023, Expires: 11/03/2023 [facility] Work Phone: Comment on above: Expected: 08/04/2023, Expires: Start: 08-04-2023 End: 11-03-2023 Ferritin [Mass/volume] in Serum or Plasma FERRITIN BLD Lab Routine Anemia, unspecified type Expected: 08/04/2023, Expires: 11/03/2023 [facility] Work Phone: Comment on above: Expected: 08/04/2023, Expires: Start: 08-04-2023 End: 11-03-2023 Iron and Iron binding capacity panel - Serum or Plasma IRON + TIBC Lab Routine Anemia, unspecified type Expected: 08/04/2023, Expires: 11/03/2023 [facility] Work Phone: Comment on above: Expected: 08/04/2023, Expires: 4 Start: 07-26-2023 End: 10-25-2023 Cobalamin (Vitamin B12) [Mass/volume] in Serum or Plasma VITAMIN B12 BLOOD Lab Routine Dizziness Expected: 07/26/2023, Expires: 10/25/2023 [facility] Work Phone: Comment on above: Expected: 07/26/2023, Expires: Start: 07-26-2023 End: 10-25-2023 Magnesium [Mass/volume] in Serum or Plasma MAGNESIUM BLD Lab Routine Dizziness Expected: 07/26/2023, Expires: 10/25/2023 [facility] Work Phone: Comment on above: Expected: 07/26/2023, Expires: Start: 07-23-2023 End: 10-22-2023 Urinalysis complete panel - Urine URINALYSIS WITH MICROSCOPIC, REFLEX CULTURE Lab Routine Leukocytosis, unspecified type Expected: 07/23/2023, Expires: 10/22/2023 [facility] Work Phone: Comment on above: Expected: 07/23/2023, Expires: 4 Start: 07-21-2023 End: 10-20-2023 Lipid 1996 panel - Serum or Plasma [facility] Work Phone: Comment on above: Expected: 07/21/2023, Expires: 4 Start: 07-21-2023 End: 10-20-2023 Thyrotropin [Units/volume] in Serum or Plasma [facility] Work Phone: Comment on above: Expected: 07/21/2023, Expires: 4 Start: 07-21-2023 End: 10-20-2023 Thyroxine (T4) free [Mass/volume] in Serum or Plasma [facility] Work Phone: Comment on above: Expected: 07/21/2023, Expires: 4 Start: 07-21-2023 End: 10-20-2023 Triiodothyronine (T3) [Mass/volume] in Serum or Plasma [facility] Work Phone: Comment on above: Expected: 07/21/2023, Expires: 4 Start: 07-17-2023 End: 10-16-2023 Thyrotropin [Units/volume] in Serum or Plasma TSH BLD Lab Routine Hypothyroidism, unspecified type Expected: 07/17/2023, Expires: 10/16/2023 [facility] Work Phone: Comment on above: Expected: 07/17/2023, Expires: 4 Start: 07-17-2023 End: 10-16-2023 Thyroxine (T4) free [Mass/volume] in Serum or Plasma T4 FREE/FREE THYROX Lab Routine Hypothyroidism, unspecified type Expected: 07/17/2023, Expires: 10/16/2023 [facility] Work Phone: Comment on above: Expected: 07/17/2023, Expires: 4 Start: 07-17-2023 End: 10-16-2023 Triiodothyronine (T3) [Mass/volume] in Serum or Plasma T3 BLD Lab Routine Hypothyroidism, unspecified type Expected: 07/17/2023, Expires: 10/16/2023 [facility] Work Phone: Comment on above: Expected: 07/17/2023, Expires: 4 Start: 07-08-2023 ANNUAL PCP TEAM CHRONIC DISEASE VISIT ANNUAL PCP TEAM CHRONIC DISEASE VISIT [facility] Start: 06-29-2023 [facility] Start: 06-29-2023 Ambulatory ECG [facility] Start: 05-17-2023 End: 07-17-2023 CBC W Auto Differential panel - Blood CBC + DIFF Lab Routine Dizziness Essential hypertension Expected: 05/17/2023, Expires: 07/17/2023 [facility] Work Phone: Comment on above: Expected: 05/17/2023, Expires: 3 Start: 05-17-2023 End: 07-17-2023 Comprehensive metabolic 2000 panel - Serum or Plasma COMP METABOLIC PANEL Lab Routine Dizziness Essential hypertension Expected: 05/17/2023, Expires: 07/17/2023 [facility] Work Phone: Comment on above: Expected: 05/17/2023, Expires: 3 Start: 05-17-2023 End: 07-17-2023 Insulin [Units/volume] in Serum or Plasma INSULIN ASSAY BLOOD Lab Routine Dizziness Expected: 05/17/2023, Expires: 07/17/2023 [facility] Work Phone: Comment on above: Expected: 05/17/2023, Expires: 3 Start: 05-17-2023 End: 07-17-2023 Thyrotropin [Units/volume] in Serum or Plasma TSH BLD Lab Routine Hypothyroidism, unspecified type Dizziness Expected: 05/17/2023, Expires: 07/17/2023 [facility] Work Phone: Comment on above: Expected: 05/17/2023, Expires: 3 Start: 05-17-2023 End: 07-17-2023 Thyroxine (T4) free [Mass/volume] in Serum or Plasma T4 FREE/FREE THYROX Lab Routine Hypothyroidism, unspecified type Dizziness Expected: 05/17/2023, Expires: 07/17/2023 [facility] Work Phone: Comment on above: Expected: 05/17/2023, Expires: Start: 05-17-2023 End: 07-17-2023 Triiodothyronine (T3) [Mass/volume] in Serum or Plasma T3 BLD Lab Routine Hypothyroidism, unspecified type Dizziness Expected: 05/17/2023, Expires: 07/17/2023 [facility] Work Phone: Comment on above: Expected: 05/17/2023, Expires: Start: 04-23-2023 Influenza vaccination INFLUENZA (#1) [facility] Start: 04-15-2023 End: 06-15-2023 Thyrotropin [Units/volume] in Serum or Plasma TSH BLD Lab Routine Hypothyroidism, unspecified type Expected: 04/15/2023, Expires: 06/15/2023 [facility] Work Phone: Comment on above: Expected: 04/15/2023, Expires: 3 Start: 04-15-2023 End: 06-15-2023 Thyroxine (T4) free [Mass/volume] in Serum or Plasma T4 FREE/FREE THYROX Lab Routine Hypothyroidism, unspecified type Expected: 04/15/2023, Expires: 06/15/2023 [facility] Work Phone: Comment on above: Expected: 04/15/2023, Expires: 3 Start: 04-15-2023 End: 06-15-2023 Triiodothyronine (T3) Free [Mass/volume] in Serum or Plasma T3 FREE BLD Lab Routine Hypothyroidism, unspecified type Expected: 04/15/2023, Expires: 06/15/2023 [facility] Work Phone: Comment on above: Expected: 04/15/2023, Expires: 3 Start: 03-20-2023 [facility] Start: 03-20-2023 Bacteria identified in Urine by Culture Urine Culture [facility] Start: 03-01-2023 End: 05-01-2023 25-hydroxyvitamin D3 [Mass/volume] in Serum or Plasma VITAMIN D 25 HYDROXY Lab Routine Vitamin D deficiency Expected: 03/01/2023, Expires: 05/01/2023 [facility] Work Phone: Comment on above: Expected: 03/01/2023, Expires: 3 Start: 03-01-2023 End: 05-01-2023 CBC panel - Blood by Automated count CBC Lab Routine Dyslipidemia Expected: 03/01/2023, Expires: 05/01/2023 [facility] Work Phone: Comment on above: Expected: 03/01/2023, Expires: 3 Start: 03-01-2023 End: 05-01-2023 Comprehensive metabolic 2000 panel - Serum or Plasma COMP METABOLIC PANEL Lab Routine Dyslipidemia Expected: 03/01/2023, Expires: 05/01/2023 [facility] Work Phone: Comment on above: Expected: 03/01/2023, Expires: 3 Start: 03-01-2023 End: 05-01-2023 Iron and Iron binding capacity panel - Serum or Plasma IRON + TIBC Lab Routine Other iron deficiency anemia Expected: 03/01/2023, Expires: 05/01/2023 [facility] Work Phone: Comment on above: Expected: 03/01/2023, Expires: 3 Start: 03-01-2023 End: 05-01-2023 Lipid 1996 panel - Serum or Plasma LIPID PANEL BASIC Lab Routine Dyslipidemia Expected: 03/01/2023, Expires: 05/01/2023 [facility] Work Phone: Comment on above: Expected: 03/01/2023, Expires: 3 Start: 03-01-2023 End: 05-01-2023 Thyrotropin [Units/volume] in Serum or Plasma TSH BLD Lab Routine Hypothyroidism, unspecified type Expected: 03/01/2023, Expires: 05/01/2023 [facility] Work Phone: Comment on above: Expected: 03/01/2023, Expires: 3 Start: 03-01-2023 End: 05-01-2023 Thyroxine (T4) free [Mass/volume] in Serum or Plasma T4 FREE/FREE THYROX Lab Routine Hypothyroidism, unspecified type Expected: 03/01/2023, Expires: 05/01/2023 [facility] Work Phone: Comment on above: Expected: 03/01/2023, Expires: 3 Start: 03-01-2023 End: 05-01-2023 Triiodothyronine (T3) Free [Mass/volume] in Serum or Plasma T3 FREE BLD Lab Routine Hypothyroidism, unspecified type Expected: 03/01/2023, Expires: 05/01/2023 [facility] Work Phone: Comment on above: Expected: 03/01/2023, Expires: 3 Start: 02-25-2023 Adult depression screening assessment DEPRESSION SCREENING [facility] Start: 02-25-2023 ANNUAL PCP TEAM CHRONIC DISEASE VISIT ANNUAL PCP TEAM CHRONIC DISEASE VISIT [facility] Start: 02-25-2023 SERUM CREATININE [facility] [facility] Start: 02-25-2023 Urine microalbumin profile DTAP,TDAP,TD (1 - Tdap) [facility] Comment on above: Postponed from 1961 (Declined at t his time) Start: 08-23-2022 ADVANCE DIRECTIVE DISCUSSION ADVANCE DIRECTIVE DISCUSSION [facility] Start: 08-20-2022 SERUM CREATININE SERUM CREATININE [facility] Start: 04-23-2022 Influenza vaccination INFLUENZA (#1) [facility] Start: 03-29-2022 End: 05-29-2022 Thyrotropin [Units/volume] in Serum or Plasma TSH BLD Lab Routine Hypothyroidism, unspecified type Expected: 03/29/2022, Expires: 05/29/2022 [facility] Work Phone: Comment on above: Expected: 03/29/2022, Expires: 2 Start: 03-29-2022 End: 05-29-2022 Thyroxine (T4) free [Mass/volume] in Serum or Plasma T4 FREE/FREE THYROX Lab Routine Hypothyroidism, unspecified type Expected: 03/29/2022, Expires: 05/29/2022 [facility] Work Phone: Comment on above: Expected: 03/29/2022, Expires: 2 Start: 03-29-2022 End: 05-29-2022 Triiodothyronine (T3) [Mass/volume] in Serum or Plasma T3 BLD Lab Routine Hypothyroidism, unspecified type Expected: 03/29/2022, Expires: 05/29/2022 [facility] Work Phone: Comment on above: Expected: 03/29/2022, Expires: 2 Start: 02-25-2022 End: 04-27-2022 25-hydroxyvitamin D3 [Mass/volume] in Serum or Plasma [facility] Work Phone: Comment on above: Expected: 02/25/2022, Expires: 2 Start: 02-25-2022 End: 04-27-2022 CBC panel - Blood by Automated count [facility] Work Phone: Comment on above: Expected: 02/25/2022, Expires: 2 Start: 02-25-2022 End: 04-27-2022 Comprehensive metabolic 2000 panel - Serum or Plasma [facility] Work Phone: Comment on above: Expected: 02/25/2022, Expires: 2 Start: 02-25-2022 End: 04-27-2022 Ferritin [Mass/volume] in Serum or Plasma [facility] Work Phone: Comment on above: Expected: 02/25/2022, Expires: 2 Start: 02-25-2022 End: 04-27-2022 Hemoglobin A1c in Blood [facility] Work Phone: Comment on above: Expected: 02/25/2022, Expires: 2 Start: 02-25-2022 End: 04-27-2022 Iron and Iron binding capacity panel - Serum or Plasma [facility] Work Phone: Comment on above: Expected: 02/25/2022, Expires: 2 Start: 02-25-2022 End: 04-27-2022 Lipid 1996 panel - Serum or Plasma [facility] Work Phone: Comment on above: Expected: 02/25/2022, Expires: 2 Start: 02-25-2022 End: 04-27-2022 Thyrotropin [Units/volume] in Serum or Plasma [facility] Work Phone: Comment on above: Expected: 02/25/2022, Expires: 2 Start: 02-25-2022 End: 04-27-2022 Thyroxine (T4) free [Mass/volume] in Serum or Plasma [facility] Work Phone: Comment on above: Expected: 02/25/2022, Expires: 2 Start: 02-25-2022 End: 04-27-2022 Triiodothyronine (T3) [Mass/volume] in Serum or Plasma [facility] Work Phone: Comment on above: Expected: 02/25/2022, Expires: 2 Start: 01-24-2022 BP CONTROLLED (<130/80) BP CONTROLLED (<130/80) [facility] Start: 12-04-2021 COVID-19 VACCINE (4 - Booster for Moderna series) COVID-19 VACCINE (4 - Booster for Moderna series) [facility] Start: 09-30-2021 COVID-19 VACCINE (4 - Booster for Moderna series) COVID-19 VACCINE (4 - Booster for Moderna series) [facility] Start: 09-30-2021 COVID-19 VACCINE (4 - Moderna series) COVID-19 VACCINE (4 - Moderna series) [facility] Start: 08-23-2021 ADVANCE DIRECTIVE DISCUSSION ADVANCE DIRECTIVE DISCUSSION [facility] Start: 08-23-2021 DEPRESSION ASSESSMENT DEPRESSION ASSESSMENT [facility] Start: 2017 RSV Vaccine (1 - 1-dose 75+ series) RSV Vaccine (1 - 1-dose 75+ series) [facility] Start: 2002 RSV Vaccine (1 - 1-dose 60+ series) RSV Vaccine (1 - 1-dose 60+ series) [facility] Start: 1961 Urine microalbumin profile [facility] 25-hydroxyvitamin D3 [Mass/volume] in Serum or Plasma VITAMIN D 25 HYDROXY Lab Routine Vitamin D deficiency 02/10/2024 7:27 AM EDT [facility] Bacteria identified in Urine by Culture URINE CULTURE Microbiology Routine 04/06/2022 3:28 PM EDT [facility] Work Phone: Bacteria identified in Urine by Culture URINE CULTURE Microbiology Routine Dysuria Ordered: 03/31/2023 [facility] Work Phone: Comment on above: Ordered: 03/31/2023 Bacteria identified in Urine by Culture URINE CULTURE Microbiology Routine Dizziness 05/17/2023 4:08 PM EDT [facility] Work Phone: CBC W Auto Different ial panel - Blood COMPLETE BLOOD COUNT AND DIFFERENTIAL Lab Routine Other iron deficiency anemia 02/10/2024 7:27 AM EDT [facility] Cobalamin (Vitamin B 12) [Mass/volume] in Serum or Plasma VITAMIN B12 Lab Routine Stage 3a chronic kidney disease (HCC) 02/10/2024 7:27 AM EDT [facility] Comprehensive metabo lic 2000 panel - Serum or Plasma COMPREHENSIVE METABOLIC PANEL Lab Routine Stage 3a chronic kidney disease (HCC) 02/10/2024 7:27 AM T [facility] COVID & INFLUENZA A/ B & RSV NAAT, ROUTINE COVID & INFLUENZA A/B & RSV NAAT, ROUTINE Microbiology Routine URI, acute Ordered: 11/06/2023 [facility] Work Phone: Comment on above: Ordered: 11/06/2023 End: 07-08-2023 ECG COMPLETE ECG COMPLETE ECG Routine Gastroesophageal reflux disease, unspecified whether esophagitis present Essential hypertension 1 Occurrences starting 07/08/2022 until 07/08/2023 [facility] Work Phone: Comment on above: 1 Occurrences starting 07/08/2022 until 07/08/2023 ECG COMPLETE ECG COMPLETE ECG 11/24/2023 8:28 AM EDT [facility] End: 07-08-2023 Echocardiography ECHO Cardiology Routine Gastroesophageal reflux disease, unspecified whether esophagitis present Essential hypertension 1 Occurrences starting 07/08/2022 until 07/08/2023 [facility] Work Phone: Comment on above: 1 Occurrences starting 07/08/2022 until 07/08/2023 OUTSIDE VENDOR CARDI AC OUTPATIENT EXTENDED RHYTHM RECORDING (WITHOUT TELEMETRY) OUTSIDE VENDOR CARDIAC OUTPATIENT EXTENDED RHYTHM RECORDING (WITHOUT TELEMETRY) Holter Routine Dizziness Ordered: 07/21/2023 [facility] Work Phone: Comment on above: Ordered: 07/21/2023 Patient Education [facility] Work Phone: Patient referral [facility] Work Phone: Thyrotropin [Units/volume] in Serum or Plasma THYROID STIMULATING HORMONE Lab Routine Hypothyroidism, unspecified type 02/10/2024 7:27 AM EDT [facility] Thyroxine (T4) free [Mass/volume] in Serum or Plasma T4 FREE/FREE THYROXINE Lab Routine Hypothyroidism, unspecified type 02/10/2024 7:27 AM EDT [facility] UA DIP, URINE (POC) UA DIP, URIN E (POC) Lab Routine Dizziness Ordered: 05/17/2023 [facility] Work Phone: Comment on above: Ordered: 05/17/2023 End: 07-08-2023 US CAROTID ARTERIES DOE VAS LAB US CAROTID ARTERIES DOE VAS LAB Vascular Lab Routine Gastroesophageal reflux disease, unspecified whether esophagitis present Essential hypertension 1 Occurrences starting 07/08/2022 until 07/08/2023 [facility] Work Phone: Comment on above: 1 Occurrences starting 07/08/2022 until 07/08/2023 End: 07-21-2024 US CAROTID ARTERIES DOE VAS LAB US CAROTID ARTERIES DOE VAS LAB Vascular Lab Routine Dizziness 1 Occurrences starting 07/21/2023 until 07/21/2024 [facility] Work Phone: Comment on above: 1 Occurrences starting 07/21/2023 until 07/21/2024 [facility] Immunizations Immunization Date Immunization Notes Care Provider Kirstin arunleni 07-10-2024 influenza virus vacc ine, unspecified formulation Margoth Chavez [employer] Work Phone: [facility] 06-14-2024 influenza, high dose seasonal, preservative-free Sreekanth Cortez DO Work Phone: [facility] 08-12-2023 influenza (HD-IIV4) vaccine, age 65+ yr, high dose, quadrivalent, PF (FLUZONE HIGH-DOSE) Donita Estes [employer]EM[employer] ATT[employer]NEY[employer] Work Phone: [facility] 08-12-2023 influenza virus vacc ine, unspecified formulation Delilah Deborah DO Work Phone: [facility] 06-08-2022 influenza, high dose seasonal, preservative-free Sergei Renner [employer] ATT[employer]NEY[employer] Work Phone: [facility] 06-08-2022 influenza virus vacc ine, unspecified formulation Donita Estes [employer]ADEMARK ATTORNEY.[employer] Work Phone: [facility] 07-05-2021 influenza, high dose seasonal, preservative-free Donita Zurawick [employer]EMARK ATT[employer]NEY[employer] Work Phone: [facility] Work Phone: 10-30-2020 COVID-19 vaccine, fu ll dose (MODERNA) Donita Zurawick [employer]ADEMARK ATTORNEY[employer] Work Phone: [facility] 10-03-2020 COVID-19 vaccine, fu ll dose (MODERNA) Donita Zurawick [employer]ADEMARK ATTORNEY.[employer] Work Phone: [facility] 07-05-2020 zoster vaccine recombinant Donita Zurawick [employer]ADEMARK ATT[employer]NEY[employer] Work Phone: [facility] Work Phone: 03-25-2020 zoster vaccine recombinant Donita Zurawick [employer]EMARK ATT[employer]NEY[employer] Work Phone: [facility] Work Phone: 06-28-2019 influenza, high dose seasonal, preservative-free Donita Zurawick [employer]ARK ATT[employer]NEY[employer] Work Phone: [facility] Work Phone: 06-13-2018 influenza, high dose seasonal, preservative-free Donita Zurawick [employer]ARK ATT[employer]NEY[employer] Work Phone: [facility] Work Phone: 02-28-2016 pneumococcal conjuga te vaccine, 13 valent Donita Zurawick TRADEMARK ATTORNEY.[facility] Work Phone: [facility] Work Phone: 02-27-2013 pneumococcal polysaccharide vaccine, 23 valent Donita Zurawick TRADEMARK ATTORNEY.[facility] Work Phone: [facility] Work Phone: Payers Date Payer Category Payer Medicare [id number] 2023 Medicare (Managed Care) [id number]. [id number] 2023 Unknown [id number] 2023 Self-pay [id number] 2022 Unknown [id number] 2020 Medicare UHC AARP MEDICAR E UHC AARP MEDICARE HMO [id number] 2020-Present [phone] [address] [address] [place] [address] O [id number] 2020 Medicare [id number] 1940 Unknown [id number] Medicare ANTH MEDICARE PPO [id number] Medicare MEDICARE PART A B [id number] Unknown Unknown [facility] [employer] [id number] Unknown [id number] Unknown [id number] Unknown [id number] Social History Date Type Detail Facility Start: 04-06-2022 Tobacco smoking stat NHIS Never smoked tobacco [facility] Start: 02-25-2022 End: 02-19-2025 Alcohol intake Current non-drinker of alcohol (finding) [facility] Start: 1940 Sex Assigned At Female [facility] Start: 02-15-2022 End: 07-08-2022 Exposure to SARS-CoV-2 (event) Not sure [facility] Start: 04-06-2022 Tobacco use and exposure Smokeless tobacco non-user [facility] Start: 12-25-2022 End: 08-10-2023 History of Social function [facility] Work Phone: Start: 12-25-2022 End: 08-10-2023 Tobacco use panel [facility] Work Phone: Adult Depression Screening Assessment 0 [facility] Work Phone: Start: 06-23-2020 Gender identity Identifies as female gender (finding) [facility] Start: 03-20-2023 End: 06-29-2023 Tobacco smoking status NHIS Unknown if ever smoked [facility] Start: 10-05-2017 None [facility] Start: 10-03-2017 Spouse/ Signif icant Other [facility] (I/We) worried wheth er (my/our) food would run out before (I/we) got money to buy more. Never true [facility] In the past 12 month s, was there a time when you were not able to pay the mortgage or rent on time? No [facility] Functional Status Date Assessment Result Facility 08-13-2023 Are you deaf, or do you have serious difficulty hearing No 08/13/2023 2:52 PM Laura Garcia, ENEDELIA No [facility] 08-13-2023 Are you blind, or do you have serious difficulty seeing, even when wearing glasses No 08/13/2023 2:52 PM Laura Garcia, ENEDELIA No [facility] 08-13-2023 Do you have serious difficulty walking or climbing stairs No 08/13/2023 2:52 PM Laura Garcia, ENEDELIA [facility] 08-13-2023 Do you have difficul ty dressing or bathing No 08/13/2023 2:52 PM Laura Garcia, ENEDELIA [facility] 08-13-2023 Because of a physica l, mental, or emotional condition, do you have difficulty doing errands alone such as visiting a physician's office or shopping No 08/13/2023 2:52 PM Laura Garcia, ENEDELIA No [facility] Mental Status Date Assessment Result Facility 08-13-2023 Because of a physica l, mental, or emotional condition, do you have serious difficulty concentrating, remembering, or making decisions No 08/13/2023 2:52 PM Laura Garcai, ENEDELIA [facility] 06-29-2023 Cognitive function Level Of Cons ciousness Awake;Appropriate;Drowsy [facility] Work Phone: 03-20-2023 Cognitive function Level Of Cons ciousness Awake;Alert;Appropriate;Fol lows Commands [facility] Work Phone: Clinical Notes 02-25-2022 to 02-19-2025 Patient InstructionsMargoth Chavez APRN.[employer] - 02/19/2025 12:43 PM Sreekanth Lyles DO - 02/05/2025 11:01 AM EDTPatient InstructionsPatient Instructions Note Date & Type Note Facility 02-19-2025 Instructions Margoth Chavez APRN.[employer] - 02/19/2025 1:08 PM EDT Stop at labs and get labs drawn Continue logging blood pressure and take hydralazine as needed Follow with cardiology documented in this encounter [facility] 02-19-2025 Note HNO ID: [id number] Author: MARGOTH CHAVEZ APRN.CNP Service: ? Author Type: Nurse Practitioner Type: Progress Notes Filed: 02/19/2025 17:54 Note Text: This is a 84 year old female who presents today with: Casandra Henry is an 84-year-old female with a history of HTN, presenting for evaluation of blood pressure fluctuations. HISTORY OF PRESENT ILLNESS: Hypertension: - Blood pressure readings have been fluctuating significantly, with recent readings ranging from 75/58 to 211/102 mmHg. - Notable readings include: - 150/86 mmHg last Wednesday. - 133/80 mmHg. - 120/68 mmHg last . - 211/102 mmHg on Wednesday, reduced to 201/96 mmHg after taking an extra pill. - 173/82 mmHg and 178/89 mmHg. - 150/79 mmHg on Wednesday. - 122/71 mmHg. - 149/77 mmHg. - 130/78 mmHg. - 75/58 mmHg morning, associated with lightheadedness and dizziness. - 183/89 mmHg later in the day. - Blood pressure fluctuations began approximately two years ago. - Recent medication changes include starting carvedilol about a week ago, replacing metoprolol - Currently taking losartan BID, around 0700 and 1900. - Took hydralazine once on Wednesday, with a second dose six hours later. - Reports feeling wiped out suddenly at times, requiring sitting down and resting - Denies chest pain. -had a cardiology follow ups after a hospital stay but currently, confirmed with last note, told her she no longer needed to follow up and that nephrology was following her. But last kidney function labs were good. - Previous thyroid medication dose was reduced from 100 mcg to 88 mcg during a hospital stay, but Dr. Cortez later increased it back to 100 mcg. - Reports increased swelling in legs over the past year, wearing compression socks today - Experiences fatigue, often correlating with blood pressure fluctuations. - Family history of low iron levels. - Recent stress due to 's hospitalization and gallbladder removal. -denies chest pain, shortness of breath, chronic headaches or vision changes but does feel when her BP goes high and doesn't feel well. Most Recent 02/21/22 - 02/19/25 02/14/24 09:52 03/23/24 08:11 04/28/24 08/08/24 08:52 12/25/24 02/05/25 08:41 02/19/25 12:35 BP 180/90 02/19/25 12:35 160/90 152/90 154/80 [1] 140/80 199/87 [2] 180/80 180/90 Note: Showing the most recent values for these dates. There are additional values that can be seen in Synopsis. [1] bp antonieta average [2] ANTONIETA BP average Recheck at end of visit: 170/80 PAST MEDICAL HISTORY: PAST MEDICAL HISTORY Diagnosis Date Acid reflux Hiatal hernia Hypertension Hypothyroid Palpitation PAST SURGICAL HISTORY Procedure Laterality Date CARPAL TUNNEL 2001 bilateral COLONOSCOPY FLX DX W/COLLJ SPEC WHEN PFRMD 12/05/2013 Colonoscopy done in [facility] FLX W/REMOVAL LESION BY HOT BX FORCEPS 02/19/[address] Catarino Salas LAPAROSCOPIC DUODENAL BIOPSY 02/13/2020 Catarino Salas MD; duodenal biopsy, gastric antrum biopsy, irregular GE junction bopsy, proximal gastric body soft tissue prominence biopsy all performed ALLERGIES Gluten and Milk Containing Products (Dairy) MEDICATIONS Current Outpatient Medications Medication Sig carvedilol (COREG) 12.5 mg tablet Take 1 tablet by mouth two times a day. For blood pressure hydrALAZINE (APRESOLINE) 25 mg tablet Take 1 tablet by mouth three times a day as needed (elevated blood pressure > 140/90). losartan (COZAAR) 50 mg tablet Take 1 tablet by mouth two times a day. SYNTHROID 100 mcg tablet Take 1 tablet by mouth once daily. Take on empty stomach furosemide (LASIX) 20 mg tablet Take 1 tablet by mouth every afternoon. multivit with iron,minerals (MULTIVITAMIN AND MINERALS ORAL) Take by mouth. No current facility-administered medications for this visit. FAMILY HISTORY Problem Relation Age of Onset Stroke Mother 84 Hypertension Mother Heart Mother Cancer Father Lung 75 Cancer Paternal Grandmother Hypertension Sister Hypertension Sister Diabetes Sister Diabetes Sister Kidney Disease Brother 74 Social History Tobacco Use Smoking status: Never Smokeless tobacco: Never Vaping Use Vaping status: Never Used Substance Use Topics Alcohol use: No Drug use: No REVIEW OF SYSTEMS Constitutional: (+) fatigue, (+) decreased sleep Cardiovascular: (+) bilateral lower extremity edema, (-) chest pain Neurological: (+) dizziness See HPI EXAM: BP 170/80 (BP Site: Right Arm, BP Position: Sitting) Pulse 68 Resp 16 Wt 64 kg (141 lb 3.2 oz) SpO2 98% BMI 26.25 kg/m? PHYSICAL EXAM: General Appearance: Well appearing, alert, in no acute distress Skin: Skin color pale, texture, turgor normal, no suspicious rashes or lesions. Eyes: Anicteric sclera. Pupils are equally round and reactive to light. Extraocular movements are intact. , conjunctiva are pale. Lungs: Lungs clear to auscultation. No wheezing, (more content not included)... [facility] 02-19-2025 History of Present illness Narrative This is a 84 year old female who presents today with: Casandra Henry is an 84-year-old female with a history of HTN, presenting for evaluation of blood pressure fluctuations. HISTORY OF PRESENT ILLNESS: Hypertension: - Blood pressure readings have been fluctuating significantly, with recent readings ranging from 75/58 to 211/102 mmHg. - Notable readings include: - 150/86 mmHg last Wednesday. - 133/80 mmHg. - 120/68 mmHg last . - 211/102 mmHg on Wednesday, reduced to 201/96 mmHg after taking an extra pill. - 173/82 mmHg and 178/89 mmHg. - 150/79 mmHg on Wednesday. - 122/71 mmHg. - 149/77 mmHg. - 130/78 mmHg. - 75/58 mmHg morning, associated with lightheadedness and dizziness. - 183/89 mmHg later in the day. - Blood pressure fluctuations began approximately two years ago. - Recent medication changes include starting carvedilol about a week ago, replacing metoprolol - Currently taking losartan BID, around 0700 and 1900. - Took hydralazine once on Wednesday, with a second dose six hours later. - Reports feeling wiped out suddenly at times, requiring sitting down and resting - Denies chest pain. -had a cardiology follow ups after a hospital stay but currently, confirmed with last note, told her she no longer needed to follow up and that nephrology was following her. But last kidney function labs were good. - Previous thyroid medication dose was reduced from 100 mcg to 88 mcg during a hospital stay, but Dr. Cortez later increased it back to 100 mcg. - Reports increased swelling in legs over the past year, wearing compression socks today - Experiences fatigue, often correlating with blood pressure fluctuations. - Family history of low iron levels. - Recent stress due to 's hospitalization and gallbladder removal. -denies chest pain, shortness of breath, chronic headaches or vision changes but does feel when her BP goes high and doesn't feel well. Most Recent 02/21/22 - 02/19/25 02/14/24 09:52 03/23/24 08:11 04/28/24 08/08/24 08:52 12/25/24 02/05/25 08:41 02/19/25 12:35 BP 180/90 02/19/25 12:35 160/90 152/90 154/80 [1] 140/80 199/87 [2] 180/80 180/90 Note: Showing the most recent values for these dates. There are additional values that can be seen in Synopsis. [1] bp antonieta average [2] ANTONIETA BP average Recheck at end of visit: 170/80 PAST MEDICAL HISTORY: PAST MEDICAL HISTORY Diagnosis Date Acid reflux Hiatal hernia Hypertension Hypothyroid Palpitation PAST SURGICAL HISTORY Procedure Laterality Date CARPAL TUNNEL 2000 bilateral COLONOSCOPY FLX DX W/COLLJ SPEC WHEN PFRMD 12/05/2013 Colonoscopy done in [facility] FLX W/REMOVAL LESION BY HOT BX FORCEPS 02/19/[address] Catarino Salas LAPAROSCOPIC DUODENAL BIOPSY 02/13/2020 Catarino Salas MD; duodenal biopsy, gastric antrum biopsy, irregular GE junction bopsy, proximal gastric body soft tissue prominence biopsy all performed ALLERGIES Gluten and Milk Containing Products (Dairy) MEDICATIONS Current Outpatient Medications Medication Sig carvedilol (COREG) 12.5 mg tablet Take 1 tablet by mouth two times a day. For blood pressure hydrALAZINE (APRESOLINE) 25 mg tablet Take 1 tablet by mouth three times a day as needed (elevated blood pressure > 140/90). losartan (COZAAR) 50 mg tablet Take 1 tablet by mouth two times a day. SYNTHROID 100 mcg tablet Take 1 tablet by mouth once daily. Take on empty stomach furosemide (LASIX) 20 mg tablet Take 1 tablet by mouth every afternoon. multivit with iron,minerals (MULTIVITAMIN AND MINERALS ORAL) Take by mouth. No current facility-administered medications for this visit. FAMILY HISTORY Problem Relation Age of Onset Stroke Mother 84 Hypertension Mother Heart Mother Cancer Father Lung 75 Cancer Paternal Grandmother Hypertension Sister Hypertension Sister Diabetes Sister Diabetes Sister Kidney Disease Brother 74 Social History Tobacco Use Smoking status: Never Smokeless tobacco: Never Vaping Use Vaping status: Never Used Substance Use Topics Alcohol use: No Drug use: No REVIEW OF SYSTEMS Constitutional: (+) fatigue, (+) decreased sleep Cardiovascular: (+) bilateral lower extremity edema, (-) chest pain Neurological: (+) dizziness See HPI EXAM: BP 170/80 (BP Site: Right Arm, BP Position: Sitting) Pulse 68 Resp 16 Wt 64 kg (141 lb 3.2 oz) SpO2 98% BMI 26.25 kg/m PHYSICAL EXAM: General Appearance: Well appearing, alert, in no acute distress Skin: Skin color pale, texture, turgor normal, no suspicious rashes or lesions. Eyes: Anicteric sclera. Pupils are equally round and reactive to light. Extraocular movements are intact. , conjunctiva are pale. Lungs: Lungs clear to auscultation. No wheezing, rhonchi, rales.. Heart: RRR without murmur, gallop, or rubs. No ectopy. Extremities: Edema: nonpitting BLE ASSESSMENT/PLAN: 1. Labile blood pressure - ICD9: 796.2, ICD10: R09.89 (primary diagnosis) - Recommend home blood pressure monitoring, to bring results in on next visit - Goal of BP <130/80 - CONSULT TO CARDIOLOGY- [facility] - IRON AND TIBC - COMPLETE BLOOD COUNT AND DIFFERENTIAL - BASIC METABOLIC PANEL -we discussed adjusting meds but she has had lower ones as well, encouraged use of prn hydralazine for now and follow up in 2 weeks to reassess especially if unable to get into cardiology yet -continue carvedilol and losartan as ordered 2. Hypertension, essential - ICD9: 401.9, ICD10: I10 - Uncontrolled - Recommend home blood pressure monitoring, to bring results to next visit - CONSULT TO CARDIOLOGY - IRON AND TIBC - COMPLETE BLOOD COUNT AND DIFFERENTIAL - BASIC METABOLIC PANEL 3. Hyponatremia - ICD9: 276.1, ICD10: E87.1 - BASIC METABOLIC PANEL 4. Fatigue, unspecified type - ICD9: 780.79, ICD10: R53.83 - IRON AND TIBC - COMPLETE BLOOD COUNT AND DIFFERENTIAL - BASIC METABOLIC PANEL Discussed treatment plan and patient voices understanding. Patient's questions answered appropriately. Medications and potential side effects were discussed and patient voices understanding. Data reviewed: prior consultations, labs, OV notes Return to the office as scheduled or as needed for worsening/no improvement. Margoth Chavez APRN.SATISH Medical Decision Making: Problems: Low: Stable chronic illness Moderate: 1+ chronic illnesses with change Data: Unique test(s) ordered: 2 Risk: Moderate: Drug management Medical Decision Making Level: 4 - Moderate Recording using [employer] software for draft documentation of the visit was discussed with the patient/authorized underwriting account representative; all questions welcomed and answered. Patient/authorized underwriting account representative agreed to proceed documented in this encounter [facility] 02-05-2025 Note HNO ID: [id number] Author: SREEKANTH CORTEZ, DO Service: ? Author Type: Physician Type: Progress Notes Filed: 02/05/2025 11:04 Note Text: Natalie Henry is an 84-year-old female with a history of HTN and hypothyroidism, presenting for management of elevated blood pressure readings and associated symptoms. Hypertension: - Elevated blood pressure readings over the past few months, with systolic readings exceeding 200 mmHg on three occasions. otherwise 140-170s systolic, normal overall diastolic BP and heart rate normal - Current medications include metoprolol, losartan, and a diuretic lasix - Reports feeling tired and more anxious when blood pressure is elevated. - Experiencing mild pedal edema intermittently otherwise denies any CP or dyspnea or dizziness/LH - Diet low in sodium. Hypothyroidism: - Recently resumed 100 mcg dose of levothyroxine. - Reports an intermittent mild headache, which is unusual for her. Constitutional: (+) fatigue Head: (+) light headache Cardiovascular: (+) peripheral edema Musculoskeletal: (-) back pain Neurological: (+) gait disturbance, (+) foot paresthesia Psychiatric: (+) anxiety Objective Blood pressure 180/80, pulse 84, temperature 37.1 ?C (98.7 ?F), temperature source Left Tympanic, resp. rate 20, weight 64.4 kg (142 lb). GENERAL: NAD, alert and oriented. SKIN: Unremarkable, no rash or skin lesions. HEAD: Normocephalic. EYES: PERRLA, EOMI, conjunctiva clear. EARS: External ears normal, canals clear, TM's normal. NOSE/SINUSES: Nares normal. Septum midline. OROPHARYNX: Lips, mucosa, and tongue normal, good dentition. No oral lesions noted. NECK: Supple, no lymphadenopathy, normal thyroid, no carotid bruits. LUNGS: Clear to auscultation bilaterally, no wheezes/rhonchi/rales. HEART: Regular rate and rhythm, no murmurs. No ectopy. EXTREMITIES: Normal, no deformities, no skin discoloration, no edema. NEURO: Awake, alert and oriented x3, cranial nerves II-XII grossly intact, normal gait, no involuntary motions. Assessment AND Plan 1. Hypertension, essential (I10) - Blood pressure readings have been elevated, with recent measurements as high as 198/94 mmHg. - Discontinue metoprolol; initiated Coreg (carvedilol) as it offers cardioprotective, renoprotective, and neuroprotective benefits. - Prescribed PRN antihypertensive medication for acute management of elevated blood pressure episodes to prevent hospital visits and alleviate associated symptoms such as fatigue and anxiety. - Continue current losartan and diuretic therapy. - Patient understands and agrees with the treatment plan. 2. Stage 3a chronic kidney disease (HCC) (N18.31) - Coreg (carvedilol) initiated for its benefits. - Continue monitoring renal function. 3. Hypothyroidism, unspecified type (E03.9) - Currently on levothyroxine 100 mcg daily. - No changes to thyroid medication at this time; symptoms of fatigue and headaches likely secondary to hypertension. - Re-evaluate thyroid function tests at next follow-up. 4. Fatigue, unspecified type (R53.83) - Likely multifactorial, with contributions from elevated blood pressure and potential side effects of current medications. - Addressing hypertension with medication adjustments should help alleviate fatigue. 5. Dyslipidemia (E78.5) - Continue current lipid-lowering therapy. - Monitor lipid panel at next follow-up. 6. Hyponatremia (E87.1) - Maintain adequate dietary sodium intake. - Monitor serum sodium levels regularly. Recording using [employer] software for draft documentation of the visit was discussed with the patient/authorized underwriting account representative; all questions welcomed and answered. Patient/authorized underwriting account representative agreed to proceed [facility] 02-05-2025 History of Present illness Narrative Subjective Casandra Henry is an 84-year-old female with a history of HTN and hypothyroidism, presenting for management of elevated blood pressure readings and associated symptoms. Hypertension: - Elevated blood pressure readings over the past few months, with systolic readings exceeding 200 mmHg on three occasions. otherwise 140-170s systolic, normal overall diastolic BP and heart rate normal - Current medications include metoprolol, losartan, and a diuretic lasix - Reports feeling tired and more anxious when blood pressure is elevated. - Experiencing mild pedal edema intermittently otherwise denies any CP or dyspnea or dizziness/LH - Diet low in sodium. Hypothyroidism: - Recently resumed 100 mcg dose of levothyroxine. - Reports an intermittent mild headache, which is unusual for her. Constitutional: (+) fatigue Head: (+) light headache Cardiovascular: (+) peripheral edema Musculoskeletal: (-) back pain Neurological: (+) gait disturbance, (+) foot paresthesia Psychiatric: (+) anxiety Objective Blood pressure 180/80, pulse 84, temperature 37.1 C (98.7 F), temperature source Left Tympanic, resp. rate 20, weight 64.4 kg (142 lb). GENERAL: NAD, alert and oriented. SKIN: Unremarkable, no rash or skin lesions. HEAD: Normocephalic. EYES: PERRLA, EOMI, conjunctiva clear. EARS: External ears normal, canals clear, TM's normal. NOSE/SINUSES: Nares normal. Septum midline. OROPHARYNX: Lips, mucosa, and tongue normal, good dentition. No oral lesions noted. NECK: Supple, no lymphadenopathy, normal thyroid, no carotid bruits. LUNGS: Clear to auscultation bilaterally, no wheezes/rhonchi/rales. HEART: Regular rate and rhythm, no murmurs. No ectopy. EXTREMITIES: Normal, no deformities, no skin discoloration, no edema. NEURO: Awake, alert and oriented x3, cranial nerves II-XII grossly intact, normal gait, no involuntary motions. Assessment & Plan 1. Hypertension, essential (I10) - Blood pressure readings have been elevated, with recent measurements as high as 198/94 mmHg. - Discontinue metoprolol; initiated Coreg (carvedilol) as it offers cardioprotective, renoprotective, and neuroprotective benefits. - Prescribed PRN antihypertensive medication for acute management of elevated blood pressure episodes to prevent hospital visits and alleviate associated symptoms such as fatigue and anxiety. - Continue current losartan and diuretic therapy. - Patient understands and agrees with the treatment plan. 2. Stage 3a chronic kidney disease (HCC) (N18.31) - Coreg (carvedilol) initiated for its benefits. - Continue monitoring renal function. 3. Hypothyroidism, unspecified type (E03.9) - Currently on levothyroxine 100 mcg daily. - No changes to thyroid medication at this time; symptoms of fatigue and headaches likely secondary to hypertension. - Re-evaluate thyroid function tests at next follow-up. 4. Fatigue, unspecified type (R53.83) - Likely multifactorial, with contributions from elevated blood pressure and potential side effects of current medications. - Addressing hypertension with medication adjustments should help alleviate fatigue. 5. Dyslipidemia (E78.5) - Continue current lipid-lowering therapy. - Monitor lipid panel at next follow-up. 6. Hyponatremia (E87.1) - Maintain adequate dietary sodium intake. - Monitor serum sodium levels regularly. Recording using [employer] software for draft documentation of the visit was discussed with the patient/authorized underwriting account representative; all questions welcomed and answered. Patient/authorized underwriting account representative agreed to proceed documented in this encounter [facility] 02-05-2025 Instructions Sreekanth Cortez DO - 02/05/2025 9:41 AM EDT STOP the metoprolol START on the Coreg 12.5 mg twice a day for BLOOD PRESSURE instead of the metoprolol OKAY to use the Hydralazine 25 mg medication as needed for BLOOD PRESSURE >140/90 documented in this encounter [facility] 12-25-2024 Instructions Maribeth Griffiths APRN.SATISH - 12/25/2024 1:52 PM EDT I have changed Metoprolol to 75 mg twice a day- you will need to take a 25 mg tablet along with a 50 mg tablet to equal 75 mg documented in this encounter [facility] 12-25-2024 Note HNO ID: [id number] Author: MARIBETH GRIFFITHS APRN.SATISH Service: ? Author Type: Nurse Practitioner Type: Progress Notes Filed: 12/25/2024 14:19 Note Text: 12/25/2024 Patient presents with: Blood Pressure SUBJECTIVE: This is a 84 year old that is here today for Above Complaints. Blood pressure has been elevated the last month or so. She reports this happened a couple of years ago and it was due to her thyroid. Checking BP at home with ranges of 110's-200/70-100's. Feel more jittery when BP up. Has had a light headache. Some times feels dizziness. Denies visual changes, slurred speech, facial drooping, extremity numbness, tingling or weakness PAST MEDICAL HISTORY Diagnosis Date Acid reflux Hiatal hernia Hypertension Hypothyroid Palpitation ALLERGIES Gluten and Milk Containing Products (Dairy) MEDICATIONS Current Outpatient Medications Medication Sig metoprolol succinate ER (TOPROL XL) 50 mg 24 hr tablet Take 1 tablet by mouth two times a day. furosemide (LASIX) 20 mg tablet Take 1 tablet by mouth every afternoon. SYNTHROID 100 mcg tablet Take 1 tablet by mouth once daily. Take on empty stomach losartan (COZAAR) 50 mg tablet Take 1 tablet by mouth two times a day. multivit with iron,minerals (MULTIVITAMIN AND MINERALS ORAL) Take by mouth. No current facility-administered medications for this visit. Medications and allergies reviewed by this provider. SOCIAL HISTORY Social History Tobacco Use Smoking status: Never Smokeless tobacco: Never Vaping Use Vaping status: Never Used Substance Use Topics Alcohol use: No Drug use: No REVIEW OF SYSTEMS All other reviewed and negative other than HPI. OBJECTIVE: BP 199/87 Pulse 71 Resp 18 Wt 64.1 kg (141 lb 6.4 oz) SpO2 96% BMI 26.28 kg/m? . Vital signs reviewed by this provider. APPEARANCE Well appearing, alert, in no acute distress, well-hydrated, well nourished. EYES conjunctiva and sclera normal. HEART RRR with normal S1 and S2, no murmurs, no gallops, no JVD appreciated LUNG clear to auscultation. No wheezes rhonchi or rales EXTREMITIES Extremities normal, No deformities, No skin discoloration, and No edema SKIN Skin color, texture, turgor normal, no suspicious rashes or lesions DTaP,Tdap,Td Vaccine(1 - Tdap) Never done RSV Vaccine(1 - 1-dose 75+ series) Never done Covid-19 Vaccine(2023- season) due on 04/23/2024 Advance Directive Discussion Never done Depression Screening due on 02/13/2025 Anxiety Screening due on 02/13/2025 Diabetes Screening due on 11/17/2027 Bone Density Screening Completed Influenza Vaccine Completed Shingrix Vaccine Completed Pneumococcal Vaccine: 50+ Completed Colorectal Cancer Screening Discontinued ASSESSMENT/PLAN: 1. Hypertension, essential - ICD9: 401.9, ICD10: I10 - Uncontrolled - no red flag symptoms or exam findings - red flag symptoms discussed, verbalizes understanding - her home BP correlates with office cuff - Increase metoprolol succinate - Recommend home blood pressure monitoring, to bring results to next visit - Encouraged sodium restriction, DASH or Mediterranean diet - Recommend regular aerobic exercise - Follow up with BP as scheduled sooner if needed, to ER with red flag symptoms - METOPROLOL SUCCINATE ER 25 MG TABLET,EXTENDED RELEASE 24 HR Maribeth Jamesonlogmyranda, [employer] Prescription instructions reviewed with patient as applicable. Patient advised if symptoms do not improve or if symptoms worsen sooner, to contact their primary care physician. Potential red flag symptoms discussed with the patient. Reviewed appropriate action plan to take if red flag symptoms occur. Patient agreeable to treatment plan. Medical Decision Making: Problems: Moderate: 1+ chronic illnesses with change Risk: Moderate: Drug management Medical Decision Making Level: 4 - Moderate [facility] 12-25-2024 History of Present illness Narrative 12/25/2024 Patient presents with: Blood Pressure SUBJECTIVE: This is a 84 year old that is here today for Above Complaints. Blood pressure has been elevated the last month or so. She reports this happened a couple of years ago and it was due to her thyroid. Checking BP at home with ranges of 110's-200/70-100's. Feel more jittery when BP up. Has had a light headache. Some times feels dizziness. Denies visual changes, slurred speech, facial drooping, extremity numbness, tingling or weakness PAST MEDICAL HISTORY Diagnosis Date Acid reflux Hiatal hernia Hypertension Hypothyroid Palpitation ALLERGIES Gluten and Milk Containing Products (Dairy) MEDICATIONS Current Outpatient Medications Medication Sig metoprolol succinate ER (TOPROL XL) 50 mg 24 hr tablet Take 1 tablet by mouth two times a day. furosemide (LASIX) 20 mg tablet Take 1 tablet by mouth every afternoon. SYNTHROID 100 mcg tablet Take 1 tablet by mouth once daily. Take on empty stomach losartan (COZAAR) 50 mg tablet Take 1 tablet by mouth two times a day. multivit with iron,minerals (MULTIVITAMIN AND MINERALS ORAL) Take by mouth. No current facility-administered medications for this visit. Medications and allergies reviewed by this provider. SOCIAL HISTORY Social History Tobacco Use Smoking status: Never Smokeless tobacco: Never Vaping Use Vaping status: Never Used Substance Use Topics Alcohol use: No Drug use: No REVIEW OF SYSTEMS All other reviewed and negative other than HPI. OBJECTIVE: BP 199/87 Pulse 71 Resp 18 Wt 64.1 kg (141 lb 6.4 oz) SpO2 96% BMI 26.28 kg/m . Vital signs reviewed by this provider. APPEARANCE Well appearing, alert, in no acute distress, well-hydrated, well nourished. EYES conjunctiva and sclera normal. HEART RRR with normal S1 and S2, no murmurs, no gallops, no JVD appreciated LUNG clear to auscultation. No wheezes rhonchi or rales EXTREMITIES Extremities normal, No deformities, No skin discoloration, and No edema SKIN Skin color, texture, turgor normal, no suspicious rashes or lesions DTaP,Tdap,Td Vaccine(1 - Tdap) Never done RSV Vaccine(1 - 1-dose 75+ series) Never done Covid-19 Vaccine( season) due on 04/23/2024 Advance Directive Discussion Never done Depression Screening due on 02/13/2025 Anxiety Screening due on 02/13/2025 Diabetes Screening due on 11/17/2027 Bone Density Screening Completed Influenza Vaccine Completed Shingrix Vaccine Completed Pneumococcal Vaccine: 50+ Completed Colorectal Cancer Screening Discontinued ASSESSMENT/PLAN: 1. Hypertension, essential - ICD9: 401.9, ICD10: I10 - Uncontrolled - no red flag symptoms or exam findings - red flag symptoms discussed, verbalizes understanding - her home BP correlates with office cuff - Increase metoprolol succinate - Recommend home blood pressure monitoring, to bring results to next visit - Encouraged sodium restriction, DASH or Mediterranean diet - Recommend regular aerobic exercise - Follow up with BP as scheduled sooner if needed, to ER with red flag symptoms - METOPROLOL SUCCINATE ER 25 MG TABLET,EXTENDED RELEASE 24 HR Maribeth Griffiths APRN.SATISH Prescription instructions reviewed with patient as applicable. Patient advised if symptoms do not improve or if symptoms worsen sooner, to contact their primary care physician. Potential red flag symptoms discussed with the patient. Reviewed appropriate action plan to take if red flag symptoms occur. Patient agreeable to treatment plan. Medical Decision Making: Problems: Moderate: 1+ chronic illnesses with change Risk: Moderate: Drug management Medical Decision Making Level: 4 - Moderate documented in this encounter [facility] 12-25-2024 Telephone encounter Note Pt called in and reports her BP has been jumping all around in the upper limits. She states this morning it was 175/92 HR 65. Pt reports she has had BP of 202/98 HR 81, 170/85, and top # ranging from 140-170. Pt states her HR has been pretty consistent. Pt states she hasn't missed any of her BP medications, and tries to taker at the same time every day. Pt is going to bring her BP cuff with her to appointment tomorrow. On 11/28/24 Dr Cortez increased Pts metoprolol to 50 mg in AM and 50 mg in PM. Pt also takes: Furosemide 20 mg in afternoon Losartan 50 mg in am and pm Chyna Ramirez RN [facility] 12-25-2024 Miscellaneous Notes Pt called in and reports her BP has been jumping all around in the upper limits. She states this morning it was 175/92 HR 65. Pt reports she has had BP of 202/98 HR 81, 170/85, and top # ranging from 140-170. Pt states her HR has been pretty consistent. Pt states she hasn't missed any of her BP medications, and tries to taker at the same time every day. Pt is going to bring her BP cuff with her to appointment tomorrow. On 11/28/24 Dr Cortez increased Pts metoprolol to 50 mg in AM and 50 mg in PM. Pt also takes: Furosemide 20 mg in afternoon Losartan 50 mg in am and pm Chyna Ramirez RN documented in this encounter [facility] 11-28-2024 Telephone encounter Note Pt notified of provider's message. Pt voiced understanding concerning medication. Farnaz Mays LPN [facility] 11-28-2024 Miscellaneous Notes Pt notified of provider's message. Pt voiced understanding concerning medication. Farnaz Mays LPN Her TSH and t4 being slightly off may contribute but not fully cause her BLOOD PRESSURE concern Sreekanth Cortez DO The following approved medication requests have been transmitted electronically. Requested Prescriptions Signed Prescriptions Disp Refills metoprolol succinate ER (TOPROL XL) 50 mg 24 hr tablet 180 tablet 1 Sig: Take 1 tablet by mouth two times a day. Authorizing Provider: SREEKANTH CORTEZ DO Pt called and is notified of providers results and instructions. Pt voices understanding. Pt states she is ok with medication being sent in. She was asking if her Thyroid medication being too high could cause her BP to be elevated, I told her I would ask provider. The patient has been identified by name and date of : Yes Caregiver verified no other encounters exist for this prescription request: Yes Caregiver confirmed with patient/requestor that no other refills are due, in the near future, with this provider at this time: Yes The last office visit in the department: 08/08/2024 Does the patient have a future office visit with this provider/department: Yes 02/05/2025 Requested Prescriptions Pending Prescriptions Disp Refills metoprolol succinate ER (TOPROL XL) 50 mg 24 hr tablet 60 tablet Sig: Take 1 tablet by mouth two times a day. Chyna Ramirez RN November 28, 2024 4:27 PM Yes, this is still higher BLOOD PRESSURE than I would like Please apologize since I was out of office last week Option would be to increase her metoprolol to 50 mg in AM and 50 mg in PM If willing to do this, please load rx for me to send in Sreekanth Cortez DO Pt calling in with BP readings: November 12: 167/86 66 pm November 13: 160/76 74 am November 14: 156/79 77 am 175/85 76 pm November 15: 153/80 76 am 151/83 75 pm November 16: 137/73 75 am 158/82 70 pm November 18 145/76 75 am 156/91 78 pm Confirmed with pt that she is taking BP meds as directed: Furosemide 20 mg in afternoon Losartan 50 mg in am and pm Metoprolol Succinate ER 25 mg tab 1.5 tab in am and 1.5 tab in pm Pt wondering if her BP is still running higher than what Dr. Cortez would like. documented in this encounter [facility] 11-28-2024 Telephone encounter Note Her TSH and t4 being slightly off may contribute but not fully cause her BLOOD PRESSURE concern Sreekanth Cortez DO The following approved medication requests have been transmitted electronically. Requested Prescriptions Signed Prescriptions Disp Refills metoprolol succinate ER (TOPROL XL) 50 mg 24 hr tablet 180 tablet 1 Sig: Take 1 tablet by mouth two times a day. Authorizing Provider: SREEKANTH CORTEZ DO [facility] 11-28-2024 Telephone encounter Note Pt called and is notified of providers results and instructions. Pt voices understanding. Pt states she is ok with medication being sent in. She was asking if her Thyroid medication being too high could cause her BP to be elevated, I told her I would ask provider. The patient has been identified by name and date of : Yes Caregiver verified no other encounters exist for this prescription request: Yes Caregiver confirmed with patient/requestor that no other refills are due, in the near future, with this provider at this time: Yes The last office visit in the department: 08/08/2024 Does the patient have a future office visit with this provider/department: Yes 02/05/2025 Requested Prescriptions Pending Prescriptions Disp Refills metoprolol succinate ER (TOPROL XL) 50 mg 24 hr tablet 60 tablet Sig: Take 1 tablet by mouth two times a day. Chyna Ramirez RN November 28, 2024 4:27 PM [facility] 11-28-2024 Telephone encounter Note Yes, this is still higher BLOOD PRESSURE than I would like Please apologize since I was out of office last week Option would be to increase her metoprolol to 50 mg in AM and 50 mg in PM If willing to do this, please load rx for me to send in Sreekanth Cortez DO [facility] 11-21-2024 Telephone encounter Note Pt returned the call and notified of results and Sergei Renner's information and instructions. [facility] 11-21-2024 Miscellaneous Notes Pt returned the call and notified of results and Sergei Renner's information and instructions. Left message to return call Silvana Rousseau MA Please let her know I received her lab results. Her TSH thyroid level is a little bit low, but this is actually a good range where Dr. Cortez likes it to run, so need to change anything there. No other concerns. Sergei Renner APRN.[employer] documented in this encounter [facility] 11-21-2024 Telephone encounter Note Pt calling in with BP readings: November 12: 167/86 66 pm November 13: 160/76 74 am November 14: 156/79 77 am 175/85 76 pm November 15: 153/80 76 am 151/83 75 pm November 16: 137/73 75 am 158/82 70 pm November 18 145/76 75 am 156/91 78 pm Confirmed with pt that she is taking BP meds as directed: Furosemide 20 mg in afternoon Losartan 50 mg in am and pm Metoprolol Succinate ER 25 mg tab 1.5 tab in am and 1.5 tab in pm Pt wondering if her BP is still running higher than what Dr. Cortez would like. [facility] 11-21-2024 Telephone encounter Note Left message to return call Silvana Rousseau MA [facility] 11-21-2024 Telephone encounter Note Please let her know I received her lab results. Her TSH thyroid level is a little bit low, but this is actually a good range where Dr. Cortez likes it to run, so need to change anything there. No other concerns. Sergei Renner APRN.SATISH [facility] Work Phone: 11-09-2024 Telephone encounter Note Prescription Refill Information The patient has been identified by name and date of : Yes Caregiver verified no other encounters exist for this prescription request: Yes Caregiver confirmed with patient/requestor that no other refills are due, in the near future, with this provider at this time: Yes The last office visit in the department: Does the patient have a future office visit with this provider/department: Yes Requested Prescriptions Pending Prescriptions Disp Refills furosemide (LASIX) 20 mg tablet 90 tablet 1 Sig: Take 1 tablet by mouth every afternoon. Laura Brito [facility] November 09, 2024 8:13 AM [facility] 11-09-2024 Miscellaneous Notes Prescription Refill Information The patient has been identified by name and date of : Yes Caregiver verified no other encounters exist for this prescription request: Yes Caregiver confirmed with patient/requestor that no other refills are due, in the near future, with this provider at this time: Yes The last office visit in the department: Does the patient have a future office visit with this provider/department: Yes Requested Prescriptions Pending Prescriptions Disp Refills furosemide (LASIX) 20 mg tablet 90 tablet 1 Sig: Take 1 tablet by mouth every afternoon. Laura Brito [facility] November 09, 2024 8:13 AM documented in this encounter [facility] 10-11-2024 Telephone encounter Note Prescription Refill Information The patient has been identified by name and date of : Yes Caregiver verified no other encounters exist for this prescription request: Yes Caregiver confirmed with patient/requestor that no other refills are due, in the near future, with this provider at this time: Yes The last office visit in the department: 08-08-24 Does the patient have a future office visit with this provider/department: Yes Requested Prescriptions Pending Prescriptions Disp Refills SYNTHROID 100 mcg tablet 30 tablet 2 Sig: Take 1 tablet by mouth once daily. Take on empty stomach Antonina Love October 11, 2024 8:39 AM [facility] 10-11-2024 Miscellaneous Notes Prescription Refill Information The patient has been identified by name and date of : Yes Caregiver verified no other encounters exist for this prescription request: Yes Caregiver confirmed with patient/requestor that no other refills are due, in the near future, with this provider at this time: Yes The last office visit in the department: 08-08-24 Does the patient have a future office visit with this provider/department: Yes Requested Prescriptions Pending Prescriptions Disp Refills SYNTHROID 100 mcg tablet 30 tablet 2 Sig: Take 1 tablet by mouth once daily. Take on empty stomach Antonina Love October 11, 2024 8:39 AM documented in this encounter [facility] 08-08-2024 Note HNO ID: [id number] Author: SREEKANTH CORTEZ, DO Service: ? Author Type: Physician Type: Progress Notes Filed: 08/09/2024 07:16 Note Text: CC: Casandra Henry is a 84 year old female who presents to the office for follow up HPI: HTN, overall her readings have been mildly elevated recently in the 140-160s/70-90s range. She is asymptomatic. She is taking losartan as well as metoprolol twice a day. She is tolerating medications well without SE. She denies any CP or dyspnea or dizziness/LH or edema. Hx of VIOLA, has been eating a balanced diet She is trying to stay physically active with exercise and stretches but isn't always consistent with this. Hypothyroidism, she is taking her levothyroxine as prescribed PAST MEDICAL HISTORY Diagnosis Date Acid reflux Hiatal hernia Hypertension Hypothyroid Palpitation PAST SURGICAL HISTORY Procedure Laterality Date CARPAL TUNNEL 2001 bilateral COLONOSCOPY FLX DX W/COLLJ SPEC WHEN PFRMD 12/05/2013 Colonoscopy done in [facility] FLX W/REMOVAL LESION BY HOT BX FORCEPS 02/19/[address] Catarino Salas LAPAROSCOPIC DUODENAL BIOPSY 02/13/2020 Catarino Salas MD; duodenal biopsy, gastric antrum biopsy, irregular GE junction bopsy, proximal gastric body soft tissue prominence biopsy all performed Social History: Social History Tobacco Use Smoking status: Never Smokeless tobacco: Never Vaping Use Vaping status: Never Used Substance Use Topics Alcohol use: No Drug use: No FAMILY HISTORY Problem Relation Age of Onset Stroke Mother 84 Hypertension Mother Heart Mother Cancer Father Lung 75 Cancer Paternal Grandmother Hypertension Sister Hypertension Sister Diabetes Sister Diabetes Sister Kidney Disease Brother 74 Current Outpatient prescriptions: SYNTHROID 100 mcg tablet Take 1 tablet by mouth once daily. Take on empty stomach furosemide (LASIX) 20 mg tablet Take 1 tablet by mouth every afternoon. losartan (COZAAR) 50 mg tablet Take 1 tablet by mouth two times a day. metoprolol succinate ER (TOPROL XL) 25 mg 24 hr tablet Take 1 tablet PO in the AM and take 1.5 tablets PO in the PM multivit with iron,minerals (MULTIVITAMIN AND MINERALS ORAL) Take by mouth. Allergies: ALLERGIES Allergen Reactions Gluten Cough Milk Containing Pro* Cough ROS: See HPI PE: 08/08/24 0852 BP: 140/80 Pulse: 80 Resp: 16 Temp: 36.4 ?C (97.5 ?F) TempSrc: Temporal Weight: 65.3 kg (144 lb) Gen: AANDO, NAD, non-toxic appearing, Pleasant, cooperative HEENT: NT/AC, PERRLA, EOMs intact b/l, nares clear and patent b/l, pharynx without erythema, exudate or lesions. Uvula midline. MMM, EACs without erythema or debris. TMs pearly bo with intact landmarks b/l. Neck: supple, No cervical LAD, no thyromegaly, no carotid bruits CV: RRR, normal S1 and S2, no murmurs, no gallops, no rubs, Pulses 2+ and symmetric in UE and LE b/l Lungs: normal respiratory effort, CTA b/l, no wheezing or rhonchi or rales Abd: soft, NT, ND, +BS, no hepatosplenomegaly MS: FROM all 4 extremities Neuro: CN II-XII intact b/l, strength 5/5 b/l UE and LE, DTRs 2/4 UE and LE, sensation intact. Skin: warm, dry, intact, No rashes or lesions on exposed skin. No edema, normal pulses ASSESSMENT/PLAN: 1. Hypothyroidism, unspecified type - ICD9: 244.9, ICD10: E03.9 (primary diagnosis) - Instructed patient on importance of taking on an empty stomach either first thing in the morning or at bedtime. - continue current dose of Synthroid 2. Hypertension, essential - ICD9: 401.9, ICD10: I10 - Worsening control - Factors affecting control: diet adherence and lack of exercise - Increase metoprolol succinate - Recommend home blood pressure monitoring, to bring results to next visit - Encouraged sodium restriction, DASH or Mediterranean diet - Recommend regular aerobic exercise 3. Stage 3a chronic kidney disease (HCC) - ICD9: 585.3, ICD10: N18.31 - eGFR: 69 Stable - Counseled on avoiding NSAIDs, adequate hydration - Counseled on low sodium diet 4. Other iron deficiency anemia - ICD9: 280.8, ICD10: D50.8 Stable, chronic 5. Dyslipidemia - ICD9: 272.4, ICD10: E78.5 - Control undetermined, due for labs - Continue current medications - Counseled on healthy diet and regular exercise 6. Vitamin D deficiency - ICD9: 268.9, ICD10: E55.9 Continue supplement 7. Fatigue, unspecified type - ICD9: 780.79, ICD10: R53.83 See above, chronic 8. Essential hypertension - ICD9: 401.9, ICD10: I10 - Worsening control - Increase metoprolol succinate - Recommend home blood pressure monitoring, to bring results to next visit - Encouraged sodium restriction, DASH or Mediterranean diet - Recommend regular aerobic exercise - METOPROLOL SUCCINATE ER 25 MG TABLET,EXTENDED RELEASE 24 HR Sreekanth Cortez, DO To ER if develops chest pain, shortness of breath, or severe worsening of symptoms. Discussed r (more content not included)... [facility] 08-08-2024 History of Present illness Narrative CC: Casandra Henry is a 84 year old female who presents to the office for follow up HPI: HTN, overall her readings have been mildly elevated recently in the 140-160s/70-90s range. She is asymptomatic. She is taking losartan as well as metoprolol twice a day. She is tolerating medications well without SE. She denies any CP or dyspnea or dizziness/LH or edema. Hx of VIOLA, has been eating a balanced diet She is trying to stay physically active with exercise and stretches but isn't always consistent with this. Hypothyroidism, she is taking her levothyroxine as prescribed PAST MEDICAL HISTORY Diagnosis Date Acid reflux Hiatal hernia Hypertension Hypothyroid Palpitation PAST SURGICAL HISTORY Procedure Laterality Date CARPAL TUNNEL 2001 bilateral COLONOSCOPY FLX DX W/COLLJ SPEC WHEN PFRMD 12/05/2013 Colonoscopy done in [facility] FLX W/REMOVAL LESION BY HOT BX FORCEPS 02/19/[address] Catarino Salas LAPAROSCOPIC DUODENAL BIOPSY 02/13/2020 Catarino Salas MD; duodenal biopsy, gastric antrum biopsy, irregular GE junction bopsy, proximal gastric body soft tissue prominence biopsy all performed Social History: Social History Tobacco Use Smoking status: Never Smokeless tobacco: Never Vaping Use Vaping status: Never Used Substance Use Topics Alcohol use: No Drug use: No FAMILY HISTORY Problem Relation Age of Onset Stroke Mother 84 Hypertension Mother Heart Mother Cancer Father Lung 75 Cancer Paternal Grandmother Hypertension Sister Hypertension Sister Diabetes Sister Diabetes Sister Kidney Disease Brother 74 Current Outpatient prescriptions: SYNTHROID 100 mcg tablet Take 1 tablet by mouth once daily. Take on empty stomach furosemide (LASIX) 20 mg tablet Take 1 tablet by mouth every afternoon. losartan (COZAAR) 50 mg tablet Take 1 tablet by mouth two times a day. metoprolol succinate ER (TOPROL XL) 25 mg 24 hr tablet Take 1 tablet PO in the AM and take 1.5 tablets PO in the PM multivit with iron,minerals (MULTIVITAMIN AND MINERALS ORAL) Take by mouth. Allergies: ALLERGIES Allergen Reactions Gluten Cough Milk Containing Pro* Cough ROS: See HPI PE: 08/08/24 0852 BP: 140/80 Pulse: 80 Resp: 16 Temp: 36.4 C (97.5 F) TempSrc: Temporal Weight: 65.3 kg (144 lb) Gen: A&O, NAD, non-toxic appearing, Pleasant, cooperative HEENT: NT/AC, PERRLA, EOMs intact b/l, nares clear and patent b/l, pharynx without erythema, exudate or lesions. Uvula midline. MMM, EACs without erythema or debris. TMs pearly bo with intact landmarks b/l. Neck: supple, No cervical LAD, no thyromegaly, no carotid bruits CV: RRR, normal S1 and S2, no murmurs, no gallops, no rubs, Pulses 2+ and symmetric in UE and LE b/l Lungs: normal respiratory effort, CTA b/l, no wheezing or rhonchi or rales Abd: soft, NT, ND, +BS, no hepatosplenomegaly MS: FROM all 4 extremities Neuro: CN II-XII intact b/l, strength 5/5 b/l UE and LE, DTRs 2/4 UE and LE, sensation intact. Skin: warm, dry, intact, No rashes or lesions on exposed skin. No edema, normal pulses ASSESSMENT/PLAN: 1. Hypothyroidism, unspecified type - ICD9: 244.9, ICD10: E03.9 (primary diagnosis) - Instructed patient on importance of taking on an empty stomach either first thing in the morning or at bedtime. - continue current dose of Synthroid 2. Hypertension, essential - ICD9: 401.9, ICD10: I10 - Worsening control - Factors affecting control: diet adherence and lack of exercise - Increase metoprolol succinate - Recommend home blood pressure monitoring, to bring results to next visit - Encouraged sodium restriction, DASH or Mediterranean diet - Recommend regular aerobic exercise 3. Stage 3a chronic kidney disease (HCC) - ICD9: 585.3, ICD10: N18.31 - eGFR: 69 Stable - Counseled on avoiding NSAIDs, adequate hydration - Counseled on low sodium diet 4. Other iron deficiency anemia - ICD9: 280.8, ICD10: D50.8 Stable, chronic 5. Dyslipidemia - ICD9: 272.4, ICD10: E78.5 - Control undetermined, due for labs - Continue current medications - Counseled on healthy diet and regular exercise 6. Vitamin D deficiency - ICD9: 268.9, ICD10: E55.9 Continue supplement 7. Fatigue, unspecified type - ICD9: 780.79, ICD10: R53.83 See above, chronic 8. Essential hypertension - ICD9: 401.9, ICD10: I10 - Worsening control - Increase metoprolol succinate - Recommend home blood pressure monitoring, to bring results to next visit - Encouraged sodium restriction, DASH or Mediterranean diet - Recommend regular aerobic exercise - METOPROLOL SUCCINATE ER 25 MG TABLET,EXTENDED RELEASE 24 HR Sreekanth Cortez DO To ER if develops chest pain, shortness of breath, or severe worsening of symptoms. Discussed risks, benefits, alternatives, and potential side effects of medications. Patient expressed understanding and agreed with the plan. Sreekanth Cortez DO [address] [place] [address] documented in this encounter [facility] 07-13-2024 Telephone encounter Note Patient notified of provider's instructions and that prescription sent to pharmacy. Patient verbalizes understanding. Roxanne Felix RN [facility] 07-13-2024 Miscellaneous Notes Patient notified of provider's instructions and that prescription sent to pharmacy. Patient verbalizes understanding. Roxanne Felix RN JUDITH San sent. Recheck thyroid labs in about 6 weeks. The following approved medication requests have been transmitted electronically. Requested Prescriptions Signed Prescriptions Disp Refills SYNTHROID 100 mcg tablet 30 tablet 2 Sig: Take 1 tablet by mouth once daily. Take on empty stomach Authorizing Provider: SERGEI RENNER APRN.[employer] Patient notified of results and provider's instructions. Patient verbalizes understanding. Patient states that she would be willing to try the brand name of levothyroxine 100 mcg. Patient uses [facility] as pharmacy. Roxanne Felix RN Her TSH level has improved but is still too high. The levothyroxine 88mcg is not enough. Would she be willing to try the 100mcg again if we order it to be dispensed as the name brand rather generic? Sometimes the reactions are from fillers that are in the generics. Sergei Renner APRN.SATISH documented in this encounter [facility] 07-13-2024 Telephone encounter Note Synthroid, JUDITH, sent. Recheck thyroid labs in about 6 weeks. The following approved medication requests have been transmitted electronically. Requested Prescriptions Signed Prescriptions Disp Refills SYNTHROID 100 mcg tablet 30 tablet 2 Sig: Take 1 tablet by mouth once daily. Take on empty stomach Authorizing Provider: SERGEI RENNER APRN.CNP [facility] 07-12-2024 Telephone encounter Note Patient notified of results and provider's instructions. Patient verbalizes understanding. Patient states that she would be willing to try the brand name of levothyroxine 100 mcg. Patient uses [facility] as pharmacy. Roxanne Felix RN [facility] 07-12-2024 Telephone encounter Note Her TSH level has improved but is still too high. The levothyroxine 88mcg is not enough. Would she be willing to try the 100mcg again if we order it to be dispensed as the name brand rather generic? Sometimes the reactions are from fillers that are in the generics. Sergei Renner APRN.CNP [facility] 06-06-2024 Telephone encounter Note Noted, thank you. Sergei Renner APRN.CNP [facility] 06-06-2024 Miscellaneous Notes Noted, thank you. Sergei Renner APRN.CNP Patient phoned to say she has levothyroxine 88 mcg and 100 mcg. States she has been taking the 88 mcg for 2 weeks b/c she didn't feel well on the 100 mcg. Advised patient per 05-02-24 encounter, provider discontinued the 88 mcg and wanted patient to take the 100 mcg b/c her thyroid lab was high. Patient states she forgot about that, and will go back to taking the 100 mcg, will take for 4 more weeks then re-check labs. documented in this encounter [facility] 06-06-2024 Telephone encounter Note Patient phoned to say she has levothyroxine 88 mcg and 100 mcg. States she has been taking the 88 mcg for 2 weeks b/c she didn't feel well on the 100 mcg. Advised patient per 05-02-24 encounter, provider discontinued the 88 mcg and wanted patient to take the 100 mcg b/c her thyroid lab was high. Patient states she forgot about that, and will go back to taking the 100 mcg, will take for 4 more weeks then re-check labs. [facility] 05-04-2024 Telephone encounter Note Nurse Lili notified of provider message. She will relay info to Dr. Ray and contact office with provider response. Silvana Rousseau MA [facility] 05-04-2024 Miscellaneous Notes Nurse Lili notified of provider message. She will relay info to Dr. Ray and contact office with provider response. Silvana Rousseau MA Nephrology office will contact our office back and ask to speak with triage nurse for provider message. Please see RS note below. Silvana Rousseau MA Attempted to contact office and speak with MA/Nurse but line rings busy. Will need to try again. Silvana Rousseau MA Please contact Dr. Stoney Ray's office, this is her senior contracts manager, outside of [facility]. Patient's blood pressure at home as well as in the office has been running 150-170's/90-110's. HR typically 60-70's. She complains of a mild headache, but overall just feeling not quite right. She is currently taking furosemide 20mg in the afternoon, losartan 50mg bid, metoprolol succinate 25mg in the morning & 37.5mg at nighttime. Would he like me to make any changes to this regimen or add anything? Thanks Sergei Renner APRN.[employer] documented in this encounter [facility] 05-02-2024 Telephone encounter Note Patient returned call and given provider's message below and patient verbalized understanding. Alfredo Lisa RN [facility] 05-02-2024 Miscellaneous Notes Patient returned call and given provider's message below and patient verbalized understanding. Alfredo Lisa RN Message left for pt to call back for results. Ai Jorgensen MA Please let her know that I received her lab results. Her TSH thyroid level is high. This could have something to do with her feeling so poorly. I'm increasing her medication and then repeat her labs in 6 weeks. No other concerns. The following approved medication requests have been transmitted electronically. Requested Prescriptions Signed Prescriptions Disp Refills levothyroxine (SYNTHROID) 100 mcg tablet 30 tablet 2 Sig: Take 1 tablet by mouth once daily. Take on empty stomach Authorizing Provider: SERGEI RENNER APRN.CNP documented in this encounter [facility] 05-02-2024 Telephone encounter Note Message left for pt to call back for results. Ai Jorgensen MA [facility] 05-02-2024 Telephone encounter Note Please let her know that I received her lab results. Her TSH thyroid level is high. This could have something to do with her feeling so poorly. I'm increasing her medication and then repeat her labs in 6 weeks. No other concerns. The following approved medication requests have been transmitted electronically. Requested Prescriptions Signed Prescriptions Disp Refills levothyroxine (SYNTHROID) 100 mcg tablet 30 tablet 2 Sig: Take 1 tablet by mouth once daily. Take on empty stomach Authorizing Provider: SERGEI RENNER APRN.SATISH [facility] 05-02-2024 Telephone encounter Note Nephrology office will contact our office back and ask to speak with triage nurse for provider message. Please see RS note below. Silvana Rousseau MA [facility] 04-28-2024 Telephone encounter Note Attempted to contact office and speak with MA/Nurse but line rings busy. Will need to try again. Silvana Rousseau MA T [facility] 04-28-2024 Telephone encounter Note Please contact Dr. Stoney Ray's office, this is her senior contracts manager, outside of [facility]. Patient's blood pressure at home as well as in the office has been running 150-170's/90-110's. HR typically 60-70's. She complains of a mild headache, but overall just feeling not quite right. She is currently taking furosemide 20mg in the afternoon, losartan 50mg bid, metoprolol succinate 25mg in the morning & 37.5mg at nighttime. Would he like me to make any changes to this regimen or add anything? Thanks Sergei Renner APRN.[employer] T [facility] 04-28-2024 Note HNO ID: [id number] Author: SERGEI RENNER APRN.CNP Service: ? Author Type: Nurse Practitioner Type: Progress Notes Filed: 04/28/2024 14:02 Note Text: Chief Complaint Patient presents with: BP Check: Reports elevated BP's at home, headaches and fatigue HPI Casandra Henry is a 84 year old female who presents here today for Above Complaints.. BP-has been elevated. On Wednesday evening was 170's/90's. Typically will be in 150's systolic. Sx-overall just has a feeling of feeling a little bit off. Slight headache. No increased stress lately. No precipitating factors, cannot pinpoint specific time of day. Denies any new stressors in her life, no new medications or supplements. Denies CP, SOB, or palpitations. Typically nephrology takes care of her BP medications. Sees Dr. Stoney Ray, he comes to [facility] once a week on Wednesdays. Past medical history, appointments, medications, allergies reviewed. Previous Medical History PAST MEDICAL HISTORY No date: Acid reflux No date: Hiatal hernia No date: Hypertension No date: Hypothyroid No date: Palpitation Previous Surgical History PAST SURGICAL HISTORY 2000: CARPAL TUNNEL Comment: bilateral 12/05/2013: COLONOSCOPY FLX DX W/COLLJ SPEC WHEN PFRMD Comment: Colonoscopy done in [place] 02/19/2020: COLSC FLX W/REMOVAL LESION BY HOT BX FORCEPS Comment: Performed by Dr. Catarino Salas 02/13/2020: LAPAROSCOPIC DUODENAL BIOPSY Comment: Catarino Salas MD; duodenal biopsy, gastric antrum biopsy, irregular GE junction bopsy, proximal gastric body soft tissue prominence biopsy all performed Family History FAMILY HISTORY Problem Relation Age of Onset Stroke Mother 84 Hypertension Mother Heart Mother Cancer Father Lung 75 Cancer Paternal Grandmother Hypertension Sister Hypertension Sister Diabetes Sister Diabetes Sister Kidney Disease Brother 74 Patient Allergies ALLERGIES Allergen Reactions Gluten Cough Milk Containing Pro* Cough Current Medications Current Outpatient Medications on File Prior to Visit Medication Sig furosemide (LASIX) 20 mg tablet Take 1 tablet by mouth every afternoon. losartan (COZAAR) 50 mg tablet Take 1 tablet by mouth two times a day. metoprolol succinate ER (TOPROL XL) 25 mg 24 hr tablet Take 1 tablet PO in the AM and take 1.5 tablets PO in the PM levothyroxine (SYNTHROID) 88 mcg tablet Take 1 tablet by mouth once daily. multivit with iron,minerals (MULTIVITAMIN AND MINERALS ORAL) Take by mouth. ferrous sulfate 325 mg (65 mg iron) tablet Take 325 mg by mouth two times a day with meals. spironolactone (ALDACTONE) 25 mg tablet Take 1 tablet by mouth once daily. (Patient not taking: Reported on 03/23/2024) No current facility-administered medications on file prior to visit. Social History Social History Tobacco Use Smoking status: Never Smokeless tobacco: Never Vaping Use Vaping status: Never Used Substance Use Topics Alcohol use: No Drug use: No Review of Symptoms REVIEW OF SYSTEMS See HPI, otherwise negative EXAM: BP 158/90 (BP Site: Left Arm, BP Position: Sitting, BP Cuff Size: Regular Adult) Pulse 66 Resp 16 Wt 63.1 kg (139 lb 3.2 oz) SpO2 97% BMI 25.88 kg/m? General Appearance: Well appearing, alert, in no acute distress, well-hydrated, well nourished.. Lungs: Lungs clear to auscultation. No wheezing, rhonchi, rales.. Heart: RRR without murmur, gallop, or rubs. No ectopy. Psychiatric: pleasant, cooperative. Health Maintenance List Advance Directive Discussion Never done Covid-19 Vaccine(4 - season) due on 04/23/2024 Influenza Vaccine(1) due on 04/23/2024 DTaP,Tdap,Td Vaccine(1 - Tdap) due on 05/17/2024 RSV Vaccine(1 - 1-dose 60+ series) due on 08/20/2024 Depression Screening due on 02/13/2025 Anxiety Screening due on 02/13/2025 Diabetes Screening due on 02/09/2027 Bone Density Screening Completed Shingrix Vaccine Completed Pneumococcal Vaccine: 65+ Completed Colorectal Cancer Screening Discontinued Data reviewed Previous records, office notes ASSESSMENT/PLAN: 1. Hypertension, essential - ICD9: 401.9, ICD10: I10 (primary diagnosis) - Uncontrolled - Encouraged sodium restriction, DASH or Mediterranean diet - will contact Dr. Stoney Ray's office for recommendations. - LEVOTHYROXINE 88 MCG TABLET - THYROID STIMULATING HORMONE - T4 FREE/FREE THYROXINE - COMPLETE BLOOD COUNT - COMPREHENSIVE METABOLIC PANEL - FUROSEMIDE 20 MG TABLET 2. Stage 3a chronic kidney disease (HCC) - ICD9: 585.3, ICD10: N18.31 - will contact Dr. Stoney Ray's office for recommendations. - LEVOTHYROXINE 88 MCG TABLET - THYROID STIMULATING HORMONE - T4 FREE/FREE THYROXINE 3. Hypothyroidism, unspecified type - ICD9: 244.9, ICD10: E03.9 - will contact Dr. Stoney Ray's office for recommendations. - LEVOTHYROXINE 88 MCG TABLET - THYROID STIMU (more content not included)... [facility] 04-28-2024 History of Present illness Narrative Chief Complaint Patient presents with: BP Check: Reports elevated BP's at home, headaches and fatigue HPI Casandra Henry is a 84 year old female who presents here today for Above Complaints.. BP-has been elevated. On Wednesday evening was 170's/90's. Typically will be in 150's systolic. Sx-overall just has a feeling of feeling a little bit off. Slight headache. No increased stress lately. No precipitating factors, cannot pinpoint specific time of day. Denies any new stressors in her life, no new medications or supplements. Denies CP, SOB, or palpitations. Typically nephrology takes care of her BP medications. Sees Dr. Stoney Ray, he comes to [facility] once a week on Wednesdays. Past medical history, appointments, medications, allergies reviewed. Previous Medical History PAST MEDICAL HISTORY No date: Acid reflux No date: Hiatal hernia No date: Hypertension No date: Hypothyroid No date: Palpitation Previous Surgical History PAST SURGICAL HISTORY 2000: CARPAL TUNNEL Comment: bilateral 12/05/2013: COLONOSCOPY FLX DX W/COLLJ SPEC WHEN PFRMD Comment: Colonoscopy done in [place] 02/19/2020: COLSC FLX W/REMOVAL LESION BY HOT BX FORCEPS Comment: Performed by Dr. Catarino Salas 02/13/2020: LAPAROSCOPIC DUODENAL BIOPSY Comment: Catarino Salas MD; duodenal biopsy, gastric antrum biopsy, irregular GE junction bopsy, proximal gastric body soft tissue prominence biopsy all performed Family History FAMILY HISTORY Problem Relation Age of Onset Stroke Mother 84 Hypertension Mother Heart Mother Cancer Father Lung 75 Cancer Paternal Grandmother Hypertension Sister Hypertension Sister Diabetes Sister Diabetes Sister Kidney Disease Brother 74 Patient Allergies ALLERGIES Allergen Reactions Gluten Cough Milk Containing Pro* Cough Current Medications Current Outpatient Medications on File Prior to Visit Medication Sig furosemide (LASIX) 20 mg tablet Take 1 tablet by mouth every afternoon. losartan (COZAAR) 50 mg tablet Take 1 tablet by mouth two times a day. metoprolol succinate ER (TOPROL XL) 25 mg 24 hr tablet Take 1 tablet PO in the AM and take 1.5 tablets PO in the PM levothyroxine (SYNTHROID) 88 mcg tablet Take 1 tablet by mouth once daily. multivit with iron,minerals (MULTIVITAMIN AND MINERALS ORAL) Take by mouth. ferrous sulfate 325 mg (65 mg iron) tablet Take 325 mg by mouth two times a day with meals. spironolactone (ALDACTONE) 25 mg tablet Take 1 tablet by mouth once daily. (Patient not taking: Reported on 03/23/2024) No current facility-administered medications on file prior to visit. Social History Social History Tobacco Use Smoking status: Never Smokeless tobacco: Never Vaping Use Vaping status: Never Used Substance Use Topics Alcohol use: No Drug use: No Review of Symptoms REVIEW OF SYSTEMS See HPI, otherwise negative EXAM: BP 158/90 (BP Site: Left Arm, BP Position: Sitting, BP Cuff Size: Regular Adult) Pulse 66 Resp 16 Wt 63.1 kg (139 lb 3.2 oz) SpO2 97% BMI 25.88 kg/m General Appearance: Well appearing, alert, in no acute distress, well-hydrated, well nourished.. Lungs: Lungs clear to auscultation. No wheezing, rhonchi, rales.. Heart: RRR without murmur, gallop, or rubs. No ectopy. Psychiatric: pleasant, cooperative. Health Maintenance List Advance Directive Discussion Never done Covid-19 Vaccine( season) due on 04/23/2024 Influenza Vaccine(1) due on 04/23/2024 DTaP,Tdap,Td Vaccine(1 - Tdap) due on 05/17/2024 RSV Vaccine(1 - 1-dose 60+ series) due on 08/20/2024 Depression Screening due on 02/13/2025 Anxiety Screening due on 02/13/2025 Diabetes Screening due on 02/09/2027 Bone Density Screening Completed Shingrix Vaccine Completed Pneumococcal Vaccine: 65+ Completed Colorectal Cancer Screening Discontinued Data reviewed Previous records, office notes ASSESSMENT/PLAN: 1. Hypertension, essential - ICD9: 401.9, ICD10: I10 (primary diagnosis) - Uncontrolled - Encouraged sodium restriction, DASH or Mediterranean diet - will contact Dr. Stoney Ray's office for recommendations. - LEVOTHYROXINE 88 MCG TABLET - THYROID STIMULATING HORMONE - T4 FREE/FREE THYROXINE - COMPLETE BLOOD COUNT - COMPREHENSIVE METABOLIC PANEL - FUROSEMIDE 20 MG TABLET 2. Stage 3a chronic kidney disease (HCC) - ICD9: 585.3, ICD10: N18.31 - will contact Dr. Stoney Ray's office for recommendations. - LEVOTHYROXINE 88 MCG TABLET - THYROID STIMULATING HORMONE - T4 FREE/FREE THYROXINE 3. Hypothyroidism, unspecified type - ICD9: 244.9, ICD10: E03.9 - will contact Dr. Stoney Ray's office for recommendations. - LEVOTHYROXINE 88 MCG TABLET - THYROID STIMULATING HORMONE - T4 FREE/FREE THYROXINE - COMPLETE BLOOD COUNT - COMPREHENSIVE METABOLIC PANEL 4. Other iron deficiency anemia - ICD9: 280.8, ICD10: D50.8 - will contact Dr. Stoney Ray's office for recommendations. - COMPLETE BLOOD COUNT - IRON AND TIBC - FERRITIN Sergei Renner APRN.[employer] documented in this encounter [facility] 04-28-2024 Evaluation note Diagnosis Hypertension, essential- Primary Unspecified essential hypertension Stage 3a chronic kidney disease (HCC) Hypothyroidism, unspecified type Other iron deficiency anemia documented in this encounter [facility]08-01-2024 NoteHNO ID: [id number] Author: DELILAH TRAORE, DO Service: ? Author Type: Physician Type: Progress Notes Filed: 03/23/2024 08:41 Note Text: [facility]IC[facility] CONSULT NOTE Casandra Henry [id number] PRIMARY SERVICE: Internal Medicine CONSULTING SERVICE: Cardiovascular Medicine: DATE OF ADMISSION: (Not on file) [facility] 08/11/2023 HISTORY OF PRESENT ILLNESS Casandra Henry is a 84 year old female with a history of hypothyroidsm, HTN, GERD, and anxiety, who presents for follow-up of palpitation and dizziness. She has had a finding of low TSH and elevated free t4- she has been adjusting down her levothyroxine. She was taken off spironolactone as her potassium was high. She had a 14 day ZIO monitor-07/2023 with no symptom-rhythm correlation with her multiple symptoms of dizziness, lightheadedness, racing heartbeat, and fluttering.. She had worsening hyponatremia which she sees nephrology for and was suppose to start salt tabs. Prior Na of 126, potasisum improved from 08/04/23 was 5.6. PAST MEDICAL HISTORY PAST MEDICAL HISTORY No date: Acid reflux No date: Hiatal hernia No date: Hypertension No date: Hypothyroid No date: Palpitation PAST SURGICAL HISTORY 2001: CARPAL TUNNEL Comment: bilateral 12/05/2013: COLONOSCOPY FLX DX W/COLLJ SPEC WHEN PFRMD Comment: Colonoscopy done in [place] 02/19/2020: COLSC FLX W/REMOVAL LESION BY HOT BX FORCEPS Comment: Performed by Dr. Catarino Salas 02/13/2020: LAPAROSCOPIC DUODENAL BIOPSY Comment: Catarino Salas MD; duodenal biopsy, gastric antrum biopsy, irregular GE junction bopsy, proximal gastric body soft tissue prominence biopsy all performed FAMILY HISTORY FAMILY HISTORY Problem Relation Age of Onset Stroke Mother 84 Hypertension Mother Heart Mother Cancer Father Lung 75 Cancer Paternal Grandmother Hypertension Sister Hypertension Sister Diabetes Sister Diabetes Sister Kidney Disease Brother 74 SOCIAL HISTORY Social History Tobacco Use Smoking status: Never Smokeless tobacco: Never Vaping Use Vaping Use: Never used Substance Use Topics Alcohol use: No Drug use: No HOME MEDICATIONS furosemide (LASIX) 20 mg tablet Take 1 tablet by mouth every afternoon. metoprolol succinate ER (TOPROL XL) 25 mg 24 hr tablet Take 1 tablet PO in the AM and take 1.5 tablets PO in the PM levothyroxine (SYNTHROID) 88 mcg tablet Take 1 tablet by mouth once daily. losartan (COZAAR) 25 mg tablet Take 1 tablet by mouth two times a day. multivit with iron,minerals (MULTIVITAMIN AND MINERALS ORAL) Take by mouth. spironolactone (ALDACTONE) 25 mg tablet Take 1 tablet by mouth once daily. (Patient not taking: Reported on 03/23/2024) ferrous sulfate 325 mg (65 mg iron) tablet Take 1 tablet by mouth twice daily with meals. (Patient not taking: Reported on 03/23/2024) INPATIENT MEDICATIONS No current facility-administered medications for this visit. ALLERGIES ALLERGIES Allergen Reactions Gluten Cough Milk Containing Pro* Cough COMPLETE REVIEW OF SYSTEMS Constitutional: No weight loss, malaise or fevers. HEENT: Negative for frequent or significant headaches Respiratory: Negative for cough, wheezing, or shortness of breath Cardiovascular: Negative for chest pain, leg swelling Gastrointestinal: Negative for abdominal discomfort, blood in stools or black stools or change in bowel habits Genitourinary: No history of dysuria, frequency, or incontinence Endocrine: Negative for cold or heat intolerance, polyuria, polydipsia and goiter Hematologic: Negative for prolonged bleeding, bruising easily or swollen nodes Neurologic: No history or headaches, syncope, paralysis, seizures or tremors Integumentary: Negative for lesions, rash, and itching. PHYSICAL EXAM BP 152/90 Pulse 67 Ht 156.2 cm (5' 1.5) Wt 63 kg (138 lb 14.2 oz) SpO2 97% BMI 25.82 kg/m? General Appearance: Well developed HEENT: PERRLA and EOM's intact Lungs: Clear Heart: Regular rate AND rhythm, No heaves, No lifts, No thrills, No rubs, and S1, S2 normal Abdomen: Soft and Non-tender Skin: Warm and Dry Musculoskeletal: No deformities Neurologic/Psychiatric: Oriented to time, place AND person and Alert DATA Laboratory: Cholesterol, Total (mg/dL) Date Value 10/07/2023 171 01/13/2021 194 HDL Cholesterol (mg/dL) Date Value 10/07/2023 58 01/13/2021 53 LDL Cholesterol (mg/dL) Date Value 10/07/2023 92 01/13/2021 115 Triglyceride (mg/dL) Date Value 10/07/2023 107 01/13/2021 131 Hemoglobin A1C (%) Date Value 02/25/2022 5.5 ASSESSMENT AND RECOMMENDATIONS Palpitations - reviewed ZIO 07/13/23-08/04/23: 33 brief runs of pSVT without associated symptoms Fastest SVT 6 beats long at max 185 bpm and longest 11 beats at 135 bpm Patient with 14 symptoms submitted with multiples of: lightheaded,racing, fluttering, faint, dizzy, all with NSR ( (more content not included)... [facility]08-01-2024 History of Present illness Narrative* Delilah Traore DO - 03/23/2024 8:20 AM EDT [facility]IC[facility] CONSULT NOTE Casandra Henry [id number] PRIMARY SERVICE: Internal Medicine CONSULTING SERVICE: Cardiovascular Medicine: DATE OF ADMISSION: (Not on file) [facility] 08/11/2023 HISTORY OF PRESENT ILLNESS Casandra Henry is a 84 year old female with a history of hypothyroidsm, HTN, GERD, and anxiety, who presents for follow-up of palpitation and dizziness. She has had a finding of low TSH and elevated free t4- she has been adjusting down her levothyroxine. She was taken off spironolactone as her potassium was high. She had a 14 day ZIO monitor-07/2023 with no symptom-rhythm correlation with her multiple symptoms of dizziness, lightheadedness, racing heartbeat, and fluttering.. She had worsening hyponatremia which she sees nephrology for and was suppose to start salt tabs. Prior Na of 126, potasisum improved from 08/04/23 was 5.6. PAST MEDICAL HISTORY PAST MEDICAL HISTORY No date: Acid reflux No date: Hiatal hernia No date: Hypertension No date: Hypothyroid No date: Palpitation PAST SURGICAL HISTORY 2001: CARPAL TUNNEL Comment: bilateral 12/05/2013: COLONOSCOPY FLX DX W/COLLJ SPEC WHEN PFRMD Comment: Colonoscopy done in [place] 02/19/2020: COLSC FLX W/REMOVAL LESION BY HOT BX FORCEPS Comment: Performed by Dr. Catarino Salas 02/13/2020: LAPAROSCOPIC DUODENAL BIOPSY Comment: Catarino Salas MD; duodenal biopsy, gastric antrum biopsy, irregular GE junction bopsy, proximal gastric body soft tissue prominence biopsy all performed FAMILY HISTORY FAMILY HISTORY Problem Relation Age of Onset Stroke Mother 84 Hypertension Mother Heart Mother Cancer Father Lung 75 Cancer Paternal Grandmother Hypertension Sister Hypertension Sister Diabetes Sister Diabetes Sister Kidney Disease Brother 74 SOCIAL HISTORY Social History Tobacco Use Smoking status: Never Smokeless tobacco: Never Vaping Use Vaping Use: Never used Substance Use Topics Alcohol use: No Drug use: No HOME MEDICATIONS furosemide (LASIX) 20 mg tablet Take 1 tablet by mouth every afternoon. metoprolol succinate ER (TOPROL XL) 25 mg 24 hr tablet Take 1 tablet PO in the AM and take 1.5 tablets PO in the PM levothyroxine (SYNTHROID) 88 mcg tablet Take 1 tablet by mouth once daily. losartan (COZAAR) 25 mg tablet Take 1 tablet by mouth two times a day. multivit with iron,minerals (MULTIVITAMIN AND MINERALS ORAL) Take by mouth. spironolactone (ALDACTONE) 25 mg tablet Take 1 tablet by mouth once daily. (Patient not taking: Reported on 03/23/2024) ferrous sulfate 325 mg (65 mg iron) tablet Take 1 tablet by mouth twice daily with meals. (Patient not taking: Reported on 03/23/2024) INPATIENT MEDICATIONS No current facility-administered medications for this visit. ALLERGIES ALLERGIES Allergen Reactions Gluten Cough Milk Containing Pro* Cough COMPLETE REVIEW OF SYSTEMS Constitutional: No weight loss, malaise or fevers. HEENT: Negative for frequent or significant headaches Respiratory: Negative for cough, wheezing, or shortness of breath Cardiovascular: Negative for chest pain, leg swelling Gastrointestinal: Negative for abdominal discomfort, blood in stools or black stools or change in bowel habits Genitourinary: No history of dysuria, frequency, or incontinence Endocrine: Negative for cold or heat intolerance, polyuria, polydipsia and goiter Hematologic: Negative for prolonged bleeding, bruising easily or swollen nodes Neurologic: No history or headaches, syncope, paralysis, seizures or tremors Integumentary: Negative for lesions, rash, and itching. PHYSICAL EXAM BP 152/90 Pulse 67 Ht 156.2 cm (5' 1.5) Wt 63 kg (138 lb 14.2 oz) SpO2 97% BMI 25.82 kg/m General Appearance: Well developed HEENT: PERRLA and EOM's intact Lungs: Clear Heart: Regular rate & rhythm, No heaves, No lifts, No thrills, No rubs, and S1, S2 normal Abdomen: Soft and Non-tender Skin: Warm and Dry Musculoskeletal: No deformities Neurologic/Psychiatric: Oriented to time, place & person and Alert DATA Laboratory: Cholesterol, Total (mg/dL) Date Value 10/07/2023 171 01/13/2021 194 HDL Cholesterol (mg/dL) Date Value 10/07/2023 58 01/13/2021 53 LDL Cholesterol (mg/dL) Date Value 10/07/2023 92 01/13/2021 115 Triglyceride (mg/dL) Date Value 10/07/2023 107 01/13/2021 131 Hemoglobin A1C (%) Date Value 02/25/2022 5.5 ASSESSMENT AND RECOMMENDATIONS Palpitations - reviewed ZIO 07/13/23-08/04/23: 33 brief runs of pSVT without associated symptoms Fastest SVT 6 beats long at max 185 bpm and longest 11 beats at 135 bpm Patient with 14 symptoms submitted with multiples of: lightheaded,racing, fluttering, faint, dizzy,all with NSR (faint with BP 160/88) - symptoms may have been exacerbated by iatrogenic hyperthyroid state - echo unremarkable - can increase her metoprolol for intermittent sinus tachycardia but rates were all normal with hersymptoms while wearing the monitor. Dizziness - orthostatics- negative - No symptom-rhythm correlation on ZIO monitor despite 14 symptoms - carotid duplex- no severe stenosis Iatrogenic Hyperthyroid - her symptoms may be related - lower synthroid to 88mcg dose and recheck in 4 weeks per primary team H/o Hypothyroidism On thyroid supplement Hyponatremia - 123-126 in past when hyperthyroid but normal (stopped salt tablets) - follows with nephrology for worsening chronic hyponatremia HTN - higher lately but working with nephrology - better on losartan and metoprolol - labile component She is doing well now with resolution of symptoms since her thyroid has been adjusted/normalized. She does have suboptimal BP control now and will continue to work with nephrology. She requires no further work up or cardiac treatment at this time. We will see as needed. Thank you for allowing me the privilege of participating in the care of your patient. Please do nothesitate to contact me if there are any questions. Delilah Traore DO, FACC, FCCP, FACOI [facility] History of Present illness Narrative* Sreekanth Cortez DO - 02/16/2024 7:00 AM EDT CC: Casandra Henry is a 83 year old female who presents to the office for follow up HPI: HTN, overall her readings have been mildly elevated recently in the 140-160s/70-90s range. She is asymptomatic. She is taking losartan as well as metoprolol twice a day. She is tolerating medicationswell without SE. She is also taking spironolactone medication. She denies any CP or dyspnea or dizzi ness/LH or edema. Hx of VIOLA, has been eating a balanced diet Hypothyroidism, she is taking her levothyroxine as prescribed TSH Date Value Ref Range Status 02/10/2024 1.300 0.270 - 4.200 mIU/L Final Glucose (mg/dL) Date Value 02/10/2024 89 08/20/2021 85 Potassium (mmol/L) Date Value 02/10/2024 3.9 08/20/2021 4.6 Sodium (mmol/L) Date Value 02/10/2024 138 08/20/2021 133 Chloride (mmol/L) Date Value 02/10/2024 101 08/20/2021 99 CO2 (mmol/L) Date Value 02/10/2024 25 08/20/2021 22 Creatinine (mg/dL) Date Value 02/10/2024 0.77 08/20/2021 0.90 BUN (mg/dL) Date Value 02/10/2024 7 08/20/2021 15 Anion Gap (mmol/L) Date Value 02/10/2024 12 08/20/2021 12 Calcium (mg/dL) Date Value 08/20/2021 9.7 Calcium, Total (mg/dL) Date Value 02/10/2024 9.3 Protein, Total (g/dL) Date Value 02/10/2024 6.3 01/13/2021 6.7 Albumin (g/dL) Date Value 02/10/2024 3.8 01/13/2021 4.4 Bilirubin, Total (mg/dL) Date Value 02/10/2024 1.0 01/13/2021 1.8 Alkaline Phosphatase (U/L) Date Value 02/10/2024 120 01/13/2021 111 AST (U/L) Date Value 02/10/2024 20 01/13/2021 21 ALT (U/L) Date Value 02/10/2024 15 01/13/2021 16 Hemoglobin (g/dL) Date Value 02/10/2024 12.6 01/13/2021 13.9 Hematocrit (%) Date Value 02/10/2024 37.8 01/13/2021 41.3 WBC (k/uL) Date Value 02/10/2024 8.91 01/13/2021 7.43 She is trying to stay physically active with exercise and stretches but isn't always consistent with this. PAST MEDICAL HISTORY Diagnosis Date Acid reflux Hiatal hernia Hypertension Hypothyroid Palpitation PAST SURGICAL HISTORY Procedure Laterality Date CARPAL TUNNEL 2001 bilateral COLONOSCOPY FLX DX W/COLLJ SPEC WHEN PFRMD 12/05/2013 Colonoscopy done in [facility] FLX W/REMOVAL LESION BY HOT BX FORCEPS 02/19/[address] Catarino Salas LAPAROSCOPIC DUODENAL BIOPSY 02/13/2020 Catarino Salas MD; duodenal biopsy, gastric antrum biopsy, irregular GE junction bopsy, proximal gastric body soft tissue prominence biopsy all performed Current Outpatient Medications Medication Sig metoprolol succinate ER (TOPROL XL) 25 mg 24 hr tablet Take 1 tablet PO in the AM and take 1.5 tablets PO in the PM spironolactone (ALDACTONE) 25 mg tablet Take 1 tablet by mouth once daily. levothyroxine (SYNTHROID) 88 mcg tablet Take 1 tablet by mouth once daily. losartan (COZAAR) 25 mg tablet Take 1 tablet by mouth two times a day. multivit with iron,minerals (MULTIVITAMIN AND MINERALS ORAL) Take by mouth. ferrous sulfate 325 mg (65 mg iron) tablet Take 1 tablet by mouth twice daily with meals. No current facility-administered medications for this visit. ALLERGIES Allergen Reactions Gluten Cough Milk Containing Pro* Cough Social History Tobacco Use Smoking status: Never Smokeless tobacco: Never Vaping Use Vaping Use: Never used Substance Use Topics Alcohol use: No Drug use: No ROS: See HPI PE: BP 160/90 Pulse 64 Temp (Src) 97.3 (Right Tympanic) Resp 16 Wt 139 lb (63.1kg) Gen: A&OX3, NAD, non-toxic appearing HEENT: PERRLA, EOMs intact b/l, nares without drainage, pharynx without erythema, exudate, lesions,or drainage. Uvula midline. MMM Neck: No LAD, no thyromegaly, no meningismus. CV: RRR, no murmur Lungs: CTA b/l, no wheezing Skin: No rashes, lesions, or wounds on exposed skin. No edema, normal peripheral pulses Arthritis changes of joints Gait is slowed but stable ASSESSMENT/PLAN: 1. Essential hypertension - ICD9: 401.9, ICD10: I10 (primary diagnosis) - Worsening control - Increase metoprolol succinate - Recommend home blood pressure monitoring, to bring results to next visit - Encouraged sodium restriction, DASH or Mediterranean diet - Recommend regular aerobic exercise - METOPROLOL SUCCINATE ER 25 MG TABLET,EXTENDED RELEASE 24 HR 2. Stage 3a chronic kidney disease (HCC) - ICD9: 585.3, ICD10: N18.31 - eGFR: 78 Stable - Counseled on avoiding NSAIDs, adequate hydration - Counseled on low sodium diet - Follow up with kidney medicine 3. Hypothyroidism, unspecified type - ICD9: 244.9, ICD10: E03.9 - Instructed patient on importance of taking on an empty stomach either first thing in the morning or at bedtime. Continue same supplement 4. Other iron deficiency anemia - ICD9: 280.8, ICD10: D50.8 Resolved, stable 5. Vitamin D deficiency - ICD9: 268.9, ICD10: E55.9 Continue supplement Sreekanth Cortez DO Return if no improvement. Follow up with Sreekanth Cortez DO. To ER if develops chest pain, shortness of breath. Discussed risks, benefits, alternatives, and potential side effects of medications. Patient/Guardian expressed understanding and agreed with the plan. See patient instructions. Sreekanth Cortez DO [address] [place] [address] [facility]* Diagnosis Essential hypertension- Primary Unspecified essential hypertension Stage 3a chronic kidney disease (HCC) Hypothyroidism, unspecified type Other iron deficiency anemia Vitamin D deficiency Unspecified vitamin D deficiency documented in this encounter [facility]06[facility] Telephone encounter Note* Telephone Encounter - Aby Vega MA - 02/10/2024 9:21 AM EDT Call to pt. After reviewing chart, pt has already completed labs and they are in process. LM on stating that no call back is needed. Aby Vega MA [facility]06-20-2024 Miscellaneous Notes* Telephone Encounter - Aby Vega MA - 02/10/2024 9:21 AM EDT Call to pt. After reviewing chart, pt has already completed labs and they are in process. LM on stating that no call back is needed. Aby Vega MA * Telephone Encounter - Sreekanth Cortez DO - 02/09/2024 10:41 PM EDT Orders placed for blood work to be drawn Please notify her Sreekanth Cortez DO * Telephone Encounter - Heather Shetty LPN - 02/09/2024 11:30 AM EDT Pt calling for lab orders. Please advise pt when orders are in place. Not certain what labs you wanted pt to have. Please review and advise pt back. Pt has apt 02-14-24. Heather Shetty LPN [facility]* Diagnosis Stage 3a chronic kidney disease (HCC)- Primary Essential hypertension Unspecified essential hypertension Hypothyroidism, unspecified type Other iron deficiency anemia Vitamin D deficiency Unspecified vitamin D deficiency Fatigue, unspecified type documented in this encounter [facility] Telephone encounter Note* Telephone Encounter - Sreekanth Cortez DO - 02/09/2024 10:41 PM EDT Orders placed for blood work to be drawn Please notify her Sreekanth Cortez DO [facility]06-19-[facility] Telephone encounter Note* Telephone Encounter - Heather Shetty LPN - 02/09/2024 11:30 AM EDT Pt calling for lab orders. Please advise pt when orders are in place. Not certain what labs you wanted pt to have. Please review and advise pt back. Pt has apt 02-14-24. Haether Shetty LPN [facility]04-03-2024 Instructions* Patient Instructions* Gabi More APRN.SATISH - 11/24/2023 9:04 AM EDT I would still like to see better blood pressure control Your sodium levels are back to normal and your thyroid is too. Continue Toprol and Losartan and Aldactone at the same doses for now. I would favor increasing Losartan but I want to review this with Dr. Pittman first. I will send my note to Dr. Pittman >> Activity as tolerated Continue with fluid restriction as recommended. Follow up in [address] Traore documented in [facility] History of Present illness Narrative* Gabi More APRN.SATISH - 11/24/2023 8:47 AM EDT Images from the original note were not included. [facility] [place] [facility] Department of Cardiovascular Medicine SECTION OF CLINICAL CARDIOLOGY OUTPATIENT VISIT DATE November 24, 2023 OUTPATIENT VISIT TYPE ESTABLISHED Elements of this note, including but not limited to HPI, ROS, Physical Exam, Assessment and Plan were copied and pasted from previous office visit notes completed within our department. Updates have been made where appropriate/noted and reflect current exam and medical decision making from date of this visit. Patient Name: Casandra Henry : 1940 PRIMARY CARE PHYSICIAN: Sreekanth Cortez DO CHIEF COMPLAINT: Patient presents with: Follow Up: Room 12 2 mo f/u No further panic attacks after med changes Nephrology managing HTN EKG Today VIOLA 09/14/23 Derik Palps, Hypothyroid, Latrogenic Hyperthyroidism, Hyponatremia, HTN EKG 08/12/23 ECHO 08/11/23 ZIO 08/10/23 Interval Hx: Ms. Henry comes for a follow up visit. The last office visit visit with me was 09/14/2023. Patient with 1 hospitalizations or ER visits since last OV. Since last office visit patient has been feeling ok. Getting over viral infection >> went to ED Covid negative. Still having higher bp readings at home Salt tablets decreased to 1 daily. BP at home 150-160 systolic Has some occ Headache NO vision changes Renal has patient on Aldactone 25 mg daily Losartan 25 mg BID and Toprol 25 mg BID NO palps or racing heart recently - taking Toprol for years. No CP No SOB NO D/L No syncope No falls Will get some occ LE edema Taking meds as ordered IMPRESSION/PLAN: Hyponatremia - 123-126 on recent admission - started on sodium chloride tablets 1000 mg BID >> decreased to daily per renal - restarted Aldactone at last renal follow up - most recent labs show improvement to 137 - follows with nephrology for chronic hyponatremia - on fluid restriction per renal - nephrology follow up in ~ 2 weeks HTN - currently on losartan 25 mg BID and metoprolol succinate 25 mg BID - BP has been consistently > 140 mmHg over the last week. - would favor restarting CCB vs increase in losartan to help with elevated BP readings. We will confer with renal. Palpitations - none recently - reviewed ZIO 07/13/23-08/04/23: 33 brief runs of pSVT without associated symptoms Fastest SVT 6 beats long at max 185 bpm and longest 11 beats at 135 bpm Patient with 14 symptoms submitted with multiples of: lightheaded,racing, fluttering, faint, dizzy,all with NSR (faint with BP 160/88) - symptoms may be exacerbated by iatrogenic hyperthyroid - normal echo on recent admission. - can increase her metoprolol for intermittent palpitations but rates were all normal with her symptoms while wearing the monitor. Hypothyroidism - On thyroid supplement Iatrogenic Hyperthyroid - her symptoms may be related - lower synthroid to 88mcg dose and recheck in 4 weeks per primary team Patient instructions: I would still like to see better blood pressure control Your sodium levels are back to normal and your thyroid is too. Continue Toprol and Losartan and Aldactone at the same doses for now. I would favor increasing Losartan but I want to review this with Dr. Desari first. I will send my note to Dr. Pittman >> Activity as tolerated Continue with fluid restriction as recommended. Follow up in [address] Traore I spent a total of 24 minutes on the date of the service which included preparing to see the patient, [id number] patient care, completing clinical documentation, performing a medically appropriate examination, counseling and educating the patient/family/caregiver, ordering medications, tests, or p rocedures, independently interpreting results (not separately reported), and communicating results to the patient/family/caregiver. Thank you very much for allowing me to assist in the care of Casandra Henry. The above information wasdiscussed at length and detail with the patient who verbalized an understanding of the plan and wasgiven ample opportunity to ask questions. The appropriate follow up has been arranged. I have advised the patient to contact me if any questions/problems arise prior to the follow up. Gabi More APRN.[facility] Cardiology Nurse Practitioner Section of [facility] Cardiology [facility] Dept of Cardiovascular Medicine [facility] [place] [address] [place] [address] Office Office November 24, 2023 8:47 AM This note was partially generated using Flightfox voice recognition system and may contain errors related to that system including grammar, punctuation, spelling, and words that may be inappropriate. CARDIAC STUDIES: LV Ejection Fraction (%) Date Value 08/11/2023 60 07/23/2022 56 Last ECHO Result Conclusion ECHO Collected: 08/11/2023 10:55 AM (Final result) Impression: CONCLUSIONS: - Exam indication: SVT - The left ventricle is normal in size. Left ventricular systolic function is normal. EF = 60 5% (2D biplane) Normal left ventricular diastolic function. - The right ventricle is normal in size. Right ventricular systolic function is normal. - There is no patent foramen ovale. - No significant valvular disease. - Exam was compared with the prior echocardiographic exam performed on 07/23/22. There is no significant change. * * * Final * * * Last EKG Result Conclusion ECG COMPLETE Collected: 11/24/2023 8:28 AM (Preliminary result) Impression: NORMAL SINUS RHYTHM Last CT Result Conclusion CT CHEST W IVCON Exam End: 08/11/2023 7:00 PM (Final result) Impression: IMPRESSION: 1. No acute findings in the chest, abdomen or pelvis. 2. Scarring in the lung apices and few small lung nodules for which follow-up in 12 months is recommended to assess for stability. 3. Mild nodular appearance of the right subareolar region, incompletely characterized. Recommend correlation with dedicated breast imaging if not already performed. Other chronic findings, as above. Associate Software Development Engineer: PSCB Transcribe Date/Time: Aug 11 2023 7:28P Dictated by : ALEXI LORD MD This examination was interpreted and the report reviewed and electronically signed by: ALEXI LORD MD on Aug 11 2023 7:39PM EST LABS: Sodium (mmol/L) Date Value 11/23/2023 137 10/07/2023 135 08/20/2021 133 2021 130 Potassium (mmol/L) Date Value 11/23/2023 3.9 10/07/2023 4.2 08/20/2021 4.6 2021 5.0 BUN (mg/dL) Date Value 11/23/2023 9 10/07/2023 9 09/08/2023 9 08/18/2023 9 08/20/2021 15 2021 18 01/13/2021 14 12/23/2020 14 Creatinine (mg/dL) Date Value 11/23/2023 0.72 10/07/2023 0.79 09/08/2023 0.88 08/18/2023 0.94 08/20/2021 0.90 2021 0.89 01/13/2021 1.00 12/23/2020 0.86 Magnesium (mg/dL) Date Value 08/13/2023 2.2 08/12/2023 2.1 Hemoglobin (g/dL) Date Value 10/07/2023 12.0 09/08/2023 12.0 01/13/2021 13.9 01/04/2020 12.7 No results found for: PROBNP CAPRICE High Sensitivity (ng/L) Date Value 08/09/2023 11 08/09/2023 11 08/09/2023 16 Cholesterol, Total (mg/dL) Date Value 10/07/2023 171 01/13/2021 194 HDL Cholesterol (mg/dL) Date Value 10/07/2023 58 01/13/2021 53 Triglyceride (mg/dL) Date Value 10/07/2023 107 01/13/2021 131 LDL Cholesterol (mg/dL) Date Value 10/07/2023 92 01/13/2021 115 TSH Date Value 10/07/2023 0.478 mIU/L 2021 0.121 uU/mL No results found for: INR EKG completed in the office today shows NSR I have personally reviewed the Electrocardiogram. PHYSICAL EXAMINATION: Vitals: BP 176/80 Pulse 71 Ht 156.2 cm (5' 1.5) Wt 62.6 kg (138 lb 0.1 oz) SpO2 97% BMI 25.65 kg/m General: Well appearing, in no acute distress. Skin: No clubbing, no cyanosis. Eyes: Extra ocular movements intact Oropharynx: Teeth in good repair. Neck: No jugular venous distention, no carotid bruits, carotids have a normal upstroke, no palpablethyromegaly. Lungs: Clear to auscultation bilaterally, no wheezing or rhonchi. Heart: Regular rhythm, PMI not displaced, S1, S2 normal, no S3, no S4, no heaves, no rub and no murmur. Abdomen: Soft, nontender, bowel sounds normal, no palpable organomegaly, no bruits. Extremities: Trace peripheral edema . Grade 2/4 distal pulses bilaterally. Neuro: Oriented to person, place and time, alert, cooperative, gait coordinated. ALLERGIES: Gluten and Milk Containing Products (Dairy) PAST MEDICAL HISTORY: PAST MEDICAL HISTORY Diagnosis Date Acid reflux Hiatal hernia Hypertension Hypothyroid Palpitation SOCIAL HISTORY: Social History Tobacco Use Smoking status: Never Smokeless tobacco: Never Vaping Use Vaping Use: Never used Substance Use Topics Alcohol use: No Drug use: No FAMILY HISTORY: FAMILY HISTORY Problem Relation Age of Onset Stroke Mother 84 Hypertension Mother Heart Mother Cancer Father Lung 75 Cancer Paternal Grandmother Hypertension Sister Hypertension Sister Diabetes Sister Diabetes Sister Kidney Disease Brother 74 I have confirmed and edited as necessary, the PFSH and ROS obtained by others. Gabi More APRN.[employer] CURRENT MEDICATIONS: Current Outpatient Medications Medication Sig metoprolol succinate ER (TOPROL XL) 25 mg 24 hr tablet Take 1 tablet by mouth two times a day. levothyroxine (SYNTHROID) 88 mcg tablet Take 1 tablet by mouth once daily. losartan (COZAAR) 25 mg tablet Take 1 tablet by mouth two times a day. multivit with iron,minerals (MULTIVITAMIN AND MINERALS ORAL) Take by mouth. ferrous sulfate 325 mg (65 mg iron) tablet Take 1 tablet by mouth twice daily with meals. benzonatate (TESSALON PERLES) 100 mg capsule Take 1 capsule by mouth three times a day as needed. (Patient not taking: Reported on 11/24/2023) sodium chloride 1,000 mg TbSO Take 1 tablet by mouth two times a day. (Patient not taking: Reportedon 11/24/2023) TENS unit and electrodes cmpk 1 Units as directed. Dx: chronic low back pain, lumbar radiculopathy (Patient not taking: Reported on 11/24/2023) No current facility-administered medications for this visit. [facility] Miscellaneous Notes* Telephone Encounter - Marti Stahl - 11/10/2023 9:00 AM EDT Patient has been identified by name and date of : Yes, Provider Sreekanth Cortez DO Date 11/10/2023 Time 9:01 am Patient phones for refill(s): Requested Prescriptions Pending Prescriptions Disp Refills metoprolol succinate ER (TOPROL XL) 25 mg 24 hr tablet 180 tablet 3 Sig: Take 1 tablet by mouth two times a day. Date of last office visit in primary care:10/27/2023 Date of next office visit in primary care: 02/14/2024 Please advise. Thank you. Marti Wright. documented in this encounterK[facility]03[facility] Miscellaneous Notes* Telephone Encounter - Karen Victoria LPN - 11/07/2023 8:18 AM EDT on patient notified.Karen Victoria LPN * Telephone Encounter - Justice Gaines PA - 11/07/2023 8:10 AM EDT Negative for COVID flu RSV documented in this encounterK[facility]03[facility] History of Present illness Narrative* Ruel Fleming RT(R) - 11/06/2023 8:30 AM EDT Radiology Service Progress Note PATIENT NAME: Casandra Henry DATE OF SERVICE: November 06, 2023 TIME: 8:36 AM PATIENT IDENTITY VERIFICATION COMPLETED USING TWO (2) IDENTIFIERS: Name and Date of confirmedby patient verbally. FALL SCREENING: Has the patient had 2 falls in the last year or 1 fall with injury or currently using an Ambulatory Assistive Device (Walker, Cane, Wheelchair, Crutches, etc.)? No PATIENT GENDER DATA: Female. status: : No status: NO. PATIENT RELEVANT IMPLANT DATA REVIEWED: Not Applicable PATIENT PRESENTS WITH AN IMPLANTABLE OR ATTACHED TECHNICAL ASSISTANT: No RADIOLOGY DEPARTMENT: General X-ray: Exam(s) Completed: Chest X-Ray PERIPHERAL IV DATA: Not applicable SIGNED BY: RT Wendy(R) November 06, 2023 8:36 AM documented in this encounterK[facility]03[facility] History of Present illness Narrative* Justice Gaines PA - 11/06/2023 8:26 AM EDT This note was created using Dynamic Recreationriter. Subjective Casandra Henry is a 83 year old female. HPI 83-year-old female presents for cough for 6 days. Patient states that 6 days ago she started losing her voice slightly getting a dry cough. She states her cough is now more productive. She statesshe is coughing up some yellow phlegm. She does have history of pneumonia. No chest pain or shortness of breath. She states that she has scratchy throat and it feels irritated with cough. No difficulty swallowing. She states her voice is now getting better. No fevers. No vomiting or diarrhea. She has had a little bit of runny nose, but no congestion. No sick contacts that she is aware of. PAST MEDICAL HISTORY Diagnosis Date Acid reflux Hiatal hernia Hypertension Hypothyroid Palpitation PAST SURGICAL HISTORY Procedure Laterality Date CARPAL TUNNEL 2000 bilateral COLONOSCOPY FLX DX W/COLLJ SPEC WHEN PFRMD 12/05/2013 Colonoscopy done in [facility] FLX W/REMOVAL LESION BY HOT BX FORCEPS 02/19/[address] Catarino Salas LAPAROSCOPIC DUODENAL BIOPSY 02/13/2020 Catarino Salas MD; duodenal biopsy, gastric antrum biopsy, irregular GE junction bopsy, proximal gastric body soft tissue prominence biopsy all performed ALLERGIES Gluten and Milk Containing Products (Dairy) MEDICATIONS sodium chloride 1,000 mg TbSO Take 1 tablet by mouth two times a day. levothyroxine (SYNTHROID) 88 mcg tablet Take 1 tablet by mouth once daily. losartan (COZAAR) 25 mg tablet Take 1 tablet by mouth two times a day. busPIRone (BUSPAR) 5 mg tablet Take 1 tablet by mouth three times a day as needed. metoprolol succinate ER (TOPROL XL) 25 mg 24 hr tablet Take 1 tablet by mouth two times a day. TENS unit and electrodes cmpk 1 Units as directed. Dx: chronic low back pain, lumbar radiculopathy multivit with iron,minerals (MULTIVITAMIN AND MINERALS ORAL) Take by mouth. ferrous sulfate 325 mg (65 mg iron) tablet Take 1 tablet by mouth twice daily with meals. FAMILY HISTORY Problem Relation Age of Onset Stroke Mother 84 Hypertension Mother Heart Mother Cancer Father Lung 75 Cancer Paternal Grandmother Hypertension Sister Hypertension Sister Diabetes Sister Diabetes Sister Kidney Disease Brother 74 Social History Tobacco Use Smoking status: Never Smokeless tobacco: Never Vaping Use Vaping Use: Never used Substance Use Topics Alcohol use: No Drug use: No Review of Systems Constitutional: Negative for chills and fever. HENT: Positive for rhinorrhea, sore throat and voice change. Negative for congestion and ear pain. Respiratory: Positive for cough. Negative for shortness of breath. Cardiovascular: Negative for chest pain. Gastrointestinal: Negative for abdominal pain, diarrhea and vomiting. Objective BP 124/76 Pulse 94 Temp 37 C (98.6 F) Resp 16 Wt 63.1 kg (139 lb 1.8 oz) SpO2 95% BMI 25.86 kg/m Physical Exam Vitals and nursing note reviewed. Constitutional: General: She is not in acute distress. Appearance: Normal appearance. She is not toxic-appearing. HENT: Right Ear: Tympanic membrane and ear canal normal. Left Ear: Tympanic membrane and ear canal normal. Nose: Nose normal. Mouth/Throat: Mouth: Mucous membranes are moist. Pharynx: No oropharyngeal exudate or posterior oropharyngeal erythema. Eyes: Conjunctiva/sclera: Conjunctivae normal. Cardiovascular: Rate and Rhythm: Normal rate and regular rhythm. Pulmonary: Effort: Pulmonary effort is normal. Breath sounds: Normal breath sounds. No wheezing, rhonchi or rales. Skin: General: Skin is warm and dry. Neurological: Mental Status: She is alert. Assessment and Plan ASSESSMENT/PLAN: 1. Acute cough - ICD9: 786.2, ICD10: R05.1 (primary diagnosis) - XR CHEST 2V FRONTAL/LAT-no acute abnormality -Suspect viral cough. Rx for Behzad Red. -Advised if she develops any chest pain, shortness of breath, go to ER. -Advised if cough continues, worsens or she develops fever, return or be seen by PCP. 2. URI, acute - ICD9: 465.9, ICD10: J06.9 - Discussed viral etiology and rationale for treatment. - Symptomatic treatment with prn analgesia - Supportive care with fluids and rest - COVID & INFLUENZA A/B & RSV NAAT, ROUTINE -Out of window for Tamiflu and antiviral Diagnosis and treatment plan were discussed and questions were answered to the patient's satisfaction. Pt acknowledged understanding of concepts and follow up plan. Specific signs and symptoms that would indicate the need for higher level of care were discussed in detail warranting prompt ER evaluation. CALVIN King documented in this encounterK[facility] History of Present illness Narrative* Sreekanth Cortez, DO - 10/27/2023 10:43 PM EST CC: Casandra Henry is a 83 year old female who presents to the office for follow up HPI: Hyponatremia, she is taking sodium chloride tablets once a day at this time, wondering if needs to continue medication. She feels that she is doing better overall. Less fatigue, she is more interested in cooking again for her and her . HTN, overall has been controlled at home. Up to 140/80s. Overall 130s/70s most days at home. Deniesany LH/dizziness or CP or syncope or palpitations or edema. Taking medication losartan and metoprolol as prescribed. Has been seen by [facility]. PAST MEDICAL HISTORY Diagnosis Date Acid reflux Hiatal hernia Hypertension Hypothyroid Palpitation PAST SURGICAL HISTORY Procedure Laterality Date CARPAL TUNNEL 2000 bilateral COLONOSCOPY FLX DX W/COLLJ SPEC WHEN PFRMD 12/05/2013 Colonoscopy done in [facility] FLX W/REMOVAL LESION BY HOT BX FORCEPS 02/19/[address] Catarino Salas LAPAROSCOPIC DUODENAL BIOPSY 02/13/2020 Catarino Salas MD; duodenal biopsy, gastric antrum biopsy, irregular GE junction bopsy, proximal gastric body soft tissue prominence biopsy all performed Current Outpatient Medications Medication Sig levothyroxine (SYNTHROID) 88 mcg tablet Take 1 tablet by mouth once daily. losartan (COZAAR) 25 mg tablet Take 1 tablet by mouth two times a day. busPIRone (BUSPAR) 5 mg tablet Take 1 tablet by mouth three times a day as needed. metoprolol succinate ER (TOPROL XL) 25 mg 24 hr tablet Take 1 tablet by mouth two times a day. TENS unit and electrodes cmpk 1 Units as directed. Dx: chronic low back pain, lumbar radiculopathy multivit with iron,minerals (MULTIVITAMIN AND MINERALS ORAL) Take by mouth. ferrous sulfate 325 mg (65 mg iron) tablet Take 1 tablet by mouth twice daily with meals. sodium chloride 1,000 mg TbSO Take 1 tablet by mouth two times a day. No current facility-administered medications for this visit. ALLERGIES Allergen Reactions Gluten Cough Milk Containing Pro* Cough Social History Tobacco Use Smoking status: Never Smokeless tobacco: Never Vaping Use Vaping Use: Never used Substance Use Topics Alcohol use: No Drug use: No ROS: See HPI PE: BP 146/88 Pulse 80 Temp (Src) 98.5 (Left Tympanic) Resp 20 Wt 137 lb (62.1kg) Gen: A&OX3, NAD, non-toxic appearing, hard of hearing HEENT: PERRLA, EOMs intact b/l, nares without drainage, pharynx without erythema, exudate, lesions,or drainage. Uvula midline. Neck: No LAD, no thyromegaly, no meningismus. CV: RRR, no murmur Lungs: CTA b/l, no wheezing Skin: No rashes, lesions, or wounds on exposed skin. No flank pain No edema, normal pulses Gait is slowed by stable ASSESSMENT/PLAN: 1. Essential hypertension - ICD9: 401.9, ICD10: I10 (primary diagnosis) - Controlled - Home blood pressure readings controlled - Improving control - Continue current medications - Recommend home blood pressure monitoring, to bring results to next visit - Encouraged sodium restriction, DASH or Mediterranean diet - Recommend regular aerobic exercise - Reviewed risks of hypertension and principles of treatment 2. Stage 3a chronic kidney disease (HCC) - ICD9: 585.3, ICD10: N18.31 - eGFR: 75 Stable - Counseled on avoiding NSAIDs, adequate hydration - continue supplements 3. Hyponatremia - ICD9: 276.1, ICD10: E87.1 Continue sodium supplement once a day at this time, f/u with [facility] 4. Hypothyroidism, unspecified type - ICD9: 244.9, ICD10: E03.9 - Instructed patient on importance of taking on an empty stomach either first thing in the morning or at bedtime. Stable, continue current supplement Sreekanth Cortez DO Return if no improvement. Follow up with Sreekanth Cortez DO. To ER if develops chest pain, shortness of breath. Discussed risks, benefits, alternatives, and potential side effects of medications. Patient/Guardian expressed understanding and agreed with the plan. See patient instructions. Sreekanth Cortez DO [address] [place] [address] documented in this encounterK[facility] Miscellaneous Notes* Telephone Encounter - Marti Stahl - 10/11/2023 3:27 PM EST Patient has been identified by name and date of : Yes, Provider Sreekanth Cortez DO Date 10/11/2023 Time 3:29 pm Patient phones for refill(s): Requested Prescriptions Pending Prescriptions Disp Refills levothyroxine (SYNTHROID) 88 mcg tablet 90 tablet 1 Sig: Take 1 tablet by mouth once daily. Date of last office visit in primary care:10/07/2023 Date of next office visit in primary care: 10/27/2023 Please advise. Thank you. Marti Wright. documented in this encounterK[facility]02[facility]24 Miscellaneous Notes* Telephone Encounter - Silvana Rousseau - 10/08/2023 8:58 AM EST Pt informed, verbalized understanding. Silvana Rousseau * Telephone Encounter - Donita Estes APRN.CNP - 10/08/2023 7:07 AM EST Please call patient and let her know that lab work results look great! Thyroid labs are all within normal limits. Sodium level remains stable despite discontinuing supplement. No concerns. Thank you, Donita Estes APRN.CNP documented in this encounterK[facility]02[facility] History of Present illness Narrative* Donita Estes APRN.CNP - 10/07/2023 7:40 AM EST Chief Complaint Patient presents with: Hypertension HPI Casandra Henry is a 83 year old female who presents here today for Above Complaints. Casandra is an established patient of Dr. Diego DO and myself. Concerns today.. HTN --- She states compliant with current blood pressure medication(s): losartan 25 mg BID and metoprolol 25 mg BID. She does check BP at home. Average home readings: all over the place, from 125-160/70-90. Taking BP twice per day. Morning and night readings will bounce back and forth within normal limits to elevated. She denies chest pain, shortness of breath, palpitations, dizziness, leg edema, headaches, or vision changes. Last 14 Encounter BP Readings: Date: BP: 10/07/2023 138/64 09/14/2023 158/78 08/25/2023 163/81 08/20/2023 130/62 08/09/2023 112/52 07/21/2023 138/60 07/05/2023 138/84 06/16/2023 142/60 05/17/2023 130/60 03/31/2023 134/70 03/15/2023 138/80 03/10/2023 133/71[average with bp machine[ 12/25/2022 150/80 08/31/2022 138/94 Pt is being seen by nephrology for hypokalemia who put her on sodium supplement. Hypokalemia improved with this. Sanforizer thought this supplement may be increasing BP so he discontinued this supplement on 09/15 and told to follow-up with PCP for HTN. Pt does report a slight decrease in BP at home with this discontinuation but sometimes BP will still be elevated to 150s/90s. Pt would like to recheck thyroid levels and any other necessary labs for upcoming appt with Dr. Cortez. Pt wondering if thyroid may be contributing to elevation in BP. feels elevation in BPmay be related to stress. No other concerns or complaints. Past medical history, appointments, medications, allergies reviewed. Previous Medical History PAST MEDICAL HISTORY Diagnosis Date Acid reflux Hiatal hernia Hypertension Hypothyroid Palpitation Previous Surgical History PAST SURGICAL HISTORY Procedure Laterality Date CARPAL TUNNEL 2000 bilateral COLONOSCOPY FLX DX W/COLLJ SPEC WHEN PFRMD 12/05/2013 Colonoscopy done in [facility] FLX W/REMOVAL LESION BY HOT BX FORCEPS 02/19/[address] Catarino Salas LAPAROSCOPIC DUODENAL BIOPSY 02/13/2020 Catarino Salas MD; duodenal biopsy, gastric antrum biopsy, irregular GE junction bopsy, proximal gastric body soft tissue prominence biopsy all performed Family History FAMILY HISTORY Problem Relation Age of Onset Stroke Mother 84 Hypertension Mother Heart Mother Cancer Father Lung 75 Cancer Paternal Grandmother Hypertension Sister Hypertension Sister Diabetes Sister Diabetes Sister Kidney Disease Brother 74 Patient Allergies ALLERGIES Allergen Reactions Gluten Cough Milk Containing Pro* Cough Current Medications Current Outpatient Medications on File Prior to Visit Medication Sig losartan (COZAAR) 25 mg tablet Take 1 tablet by mouth two times a day. levothyroxine (SYNTHROID) 88 mcg tablet Take 1 tablet by mouth once daily. busPIRone (BUSPAR) 5 mg tablet Take 1 tablet by mouth three times a day as needed. metoprolol succinate ER (TOPROL XL) 25 mg 24 hr tablet Take 1 tablet by mouth two times a day. TENS unit and electrodes cmpk 1 Units as directed. Dx: chronic low back pain, lumbar radiculopathy multivit with iron,minerals (MULTIVITAMIN AND MINERALS ORAL) Take by mouth. ferrous sulfate 325 mg (65 mg iron) tablet Take 1 tablet by mouth twice daily with meals. Current Facility-Administered Medications on File Prior to Visit Medication perflutren lipid microspheres 1.3 mL in NaCl (PF) 0.9% 10 mL injection (DEFINITY) sodium chloride 0.9 % (flush) 10 mL (BD POSIFLUSH) Social History Social History Tobacco Use Smoking status: Never Smokeless tobacco: Never Vaping Use Vaping Use: Never used Substance Use Topics Alcohol use: No Drug use: No REVIEW OF SYSTEMS: as above Reviewed relevant PMHx, PSHx, Social Hx, current medications and allergies. Review of Symptoms REVIEW OF SYSTEMS See HPI. EXAM: BP 138/64 (BP Site: Left Arm, BP Position: Sitting, BP Cuff Size: Regular Adult) Pulse 76 Resp 16 Wt 62.3 kg (137 lb 6.4 oz) SpO2 98% BMI 25.54 kg/m General Appearance: Well appearing, alert, in no acute distress, well-hydrated, well nourished.. Skin: Skin color, texture, turgor normal, no suspicious rashes or lesions. Head: Normocephalic, no masses, lesions, tenderness or abnormalities. Lungs: Lungs clear to auscultation. No wheezing, rhonchi, rales.. Heart: RRR without murmur, gallop, or rubs. No ectopy. Health Maintenance List Advance Directive Discussion Never done Depression Assessment due on 08/23/2023 DTaP,Tdap,Td Vaccine(1 - Tdap) due on 05/17/2024 Covid-19 Vaccine(4 - season) due on 05/17/2024 RSV Vaccine(1 - 1-dose 60+ series) due on 08/20/2024 Diabetes Screening due on 09/08/2026 Bone Density Screening Completed Influenza Vaccine Completed Shingrix Vaccine Completed Pneumococcal Vaccine: 65+ Completed Colorectal Cancer Screening Discontinued ASSESSMENT/PLAN: 1. Essential hypertension - ICD9: 401.9, ICD10: I10 (primary diagnosis) - Controlled in office today. BP readings at home range from WNL to elevated at 150-160s/90s. - Continue current medications. - Reach out if BP remains elevated over systolic of 150 x 2-3 days in a row. Discussed increasing morning dosage of losartan to 50 mg if needed. - For the time being, stay at current regimen and recheck BP at upcoming appointment in [address] Cortez. - Discussed goal BP of < 140/90 given age and chronic lightheadedness, we do not want to drop BPtoo low. - Recommend home blood pressure monitoring, to bring results to next visit - Encouraged sodium restriction, DASH or Mediterranean diet - Recommend regular aerobic exercise - Follow up in 4 weeks for hypertension visit 2. Hyponatremia - ICD9: 276.1, ICD10: E87.1 Recheck sodium level d/t discontinuation of sodium supplement from nephrology on 09/15. - COMP METABOLIC PANEL - CBC + DIFF 3. Hypothyroidism, unspecified type - ICD9: 244.9, ICD10: E03.9 - Instructed patient on importance of taking on an empty stomach either first thing in the morning or at bedtime. - check TSH, free T4, and T3 today - continue current dose of Synthroid - T3 BLD - T4 FREE/FREE THYROX - TSH BLD 4. Other iron deficiency anemia - ICD9: 280.8, ICD10: D50.8 Recheck - IRON + TIBC - FERRITIN BLD 5. Dyslipidemia - ICD9: 272.4, ICD10: E78.5 - Control undetermined, due for labs - Continue current medications - Counseled on healthy diet and regular exercise - LIPID PANEL BASIC RTO in 3 weeks as scheduled, sooner if needed. Prescription instructions reviewed with patient as applicable. Potential red flag symptoms discussed with the patient. Reviewed appropriate action plan to take if red flag symptoms occur. Patient agreeable to treatment plan. Donita Gonzales APRN.[employer] [address] [place] [address] documented [facility] Telephone encounter Note * Telephone Encounter - Karen Soriano - 09/11/2023 8:12 AM EST .RX [facility] Work Phone: [phone]) 507-866201-20-2024 Miscellaneous Notes* Telephone Encounter - Karen Soriano - 09/11/2023 8:12 AM EST .RX documented in this encounterK[facility]12-22-2023 NoteHNO ID: [id number] Author: Sierra Luna RN Service: Care Management Author Type: Registered Nurse Type: Care Mgt Progress Note Filed: 08/13/2023 1:05 PM Note Text: CARE MANAGEMENT DISCHARGE NOTE SERVICE DATE: August 13, 2023 SERVICE TIME: 1:04 PM Admission Date: 08/09/2023 LOS: 2 days Discharge Arrangement Discharge Arrangement: Home with Self Care, Home with Relative Caregiver Assessment Caregiver is ready, willing and able to meet the patient's needs as recommended by the inter-professional team: No Caregiver needed Transportation Arrangements Transportation Arrangements: Car Handoff Communication: Handoff to: Primary Care Physician Primary Care Physician Name/Phone: Sreekanth Cortez DO/[phone] Discharge Time Out Yes Bedside RN present No Does pt have transport home? Yes Did pt use bedside pharmacy? No Discharge order is written. RN CM met with the patient at bedside to discuss discharge plans. No skilled needs identified. Spouse to tranpsort home. SIGNATURE: Sierra Luna RN PATIENT NAME: Casandra Henry DATE: August 13, 2023 TIME: 1:04 PM CONTACT #: [phone] NoteHNO ID: [id number] Author: Sierra Luna RN Service: Care Management Author Type: Registered Nurse Type: Care Mgt Progress Note Filed: 08/13/2023 12:59 PM Note Text: CARE MANAGEMENT PROGRESS NOTE SERVICE DATE: 08/13/2023 SERVICE TIME: 12:59 PM LOS: 2 days IMM Follow Up Copy Given: Yes Copy given to:: Patient Method: In Person SIGNATURE: Sierra Luna RN PATIENT NAME: Casandra Henry DATE: August 13, 2023 TIME: 12:59 PM PAGER/CONTACT #: [phone] NoteHNO ID: [id number] Author: Sierra Luna RN Service: Care Management Author Type: Registered Nurse Type: Care Mgt Progress Note Filed: 08/12/2023 3:04 PM Note Text: CARE MANAGEMENT PROGRESS NOTE SERVICE DATE: 08/12/2023 SERVICE TIME: 3:03 PM LOS: 1 day Needs Prior to Discharge: To Be Determined EMR reviewed. Patient admitted for hyponatremia. OT is recommending home with no home OT needs. PT eval is pending. CM assigned will continue to follow. SIGNATURE: Sierra Luna RN PATIENT NAME: Casandra Henry DATE: August 12, 2023 TIME: 3:03 PM PAGER/CONTACT #: [phone] NoteHNO ID: [id number] Author: Liya Rose MD Service: Hospital Medicine Author Type: Physician Type: Progress Notes Filed: 08/12/2023 9:59 AM Note Text: DEPARTMENT OF HOSPITAL MEDICINE PROGRESS NOTE SERVICE DATE: 08/12/2023 SERVICE TIME: 9:51 AM Hospital Medicine/Primary Attending: Liya Rose MD NIGHT AND WEEKEND COVERAGE: EVENING SHADE COVERAGE: Days: [phone], please page attending physician. Nights: [phone], please page [facility] Night coverage pager [phone]. Subjective INTERVAL HPI: she is feeling better today less dizzy. No palpitations yesterday HR improved with night time dose metoprolol added. Ct ca/p showed some small lung nodules- f/u in 1 year and some nodularity of R breast- will need mammogram. Na stable but still under 130, 128 today. Coristol pending Current Facility-Administered Medications Medication Dose Route Frequency NaCl 0.9% iv flush bag 20 mL INTRAVENOUS PRN acetaminophen 650 mg tab(s) (TYLENOL) 650 mg ORAL q 6 H PRN busPIRone 5 mg tab(s) (BUSPAR) 5 mg ORAL TID PRN levothyroxine 88 mcg tab(s) (SYNTHROID) 88 mcg ORAL DAILY losartan 25 mg tab(s) (COZAAR) 25 mg ORAL BID melatonin 3 mg tab(s) 3 mg ORAL DAILY (8 PM) polyethylene glycol 3350 17 g packet 17 g ORAL DAILY hemorrhoid ointment ointment (PREPARATION H) RECTAL PRN sodium chloride 1,000 mg soluble tab(s) 1,000 mg ORAL BID sodium chloride 0.9 % (flush) 2-10 mL (BD POSIFLUSH) 2-10 mL INTRAVENOUS DIRECTED PRN And perflutren lipid microspheres 1.1 mg/mL 1.3 mL injection (DEFINITY) 1.3 mL INTRAVENOUS DIRECTED PRN urea 30 g oral powder (URE-NA) 30 g ORAL BID metoprolol succinate ER 25 mg tab(s) (TOPROL XL) 25 mg ORAL BID Objective PHYSICAL EXAM: BP 134/68 Pulse 71 Temp (Src) 97.5 (Oral) Resp 17 Ht 5' 2.5 (1.59m) Wt 136 lb 3.2 oz (61.8kg) SpO2 96% BMI 24.50 kg/(m2). O2 Therapy: Room Air Physical Exam Performed GENERAL: Alert, no distress, cooperative EYES: PERRLA, EOMI OROPHARYNX: Lips, mucosa, and tongue normal. Teeth and gums normal. Oropharynx normal. LUNGS: Lungs clear to auscultation, Good diaphragmatic excursion CARDIAC: Normal S1 and S2; no rubs, murmurs, or gallops ABDOMEN: Abdomen soft, non-tender, BS normal, No masses or organomegaly NEURO: Gait normal. Reflexes normal and symmetric. Sensation grossly intact, Cranial nerves II-XII intact Lines, Drains, and Airways Line Duration Peripheral 08/09/23 0902 [facility] Short Left Antecubital 20 Gauge 2 days Reviewed lines and needs to be continued: REASONS: DATA: Diagnostic tests reviewed for today's visit: Most recent labs Most recent imaging Assessment/Plan Problem List Hyponatremia (POA: Yes) Essential hypertension (POA: Yes) Hypothyroidism (POA: Yes) Gastroesophageal reflux disease (POA: Yes) Palpitation (POA: Status not on file) HOSPITAL COURSE: Casandra Henry is a 83 year old female with hypothyroidsm, HTN, GERD, anxiety, who presents with palpitation, dizziness. 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 Palpitations Jitteriness SVT on zio patch - symptoms do all fit with hyperthyroid - recheck Tsh free t4 - f/u zio patch results when available - tele - monitor electrolytes - consider inc metoprolol dose cont 25mg XL for now - check metanephrines for pheo as she has had difficult to control HTN in the past - consult cardiology for SVT management- - check echo- with normal Ef no valve issues - will uptitrate metop to BID metop 25mg as she did have run of symptomatic tachycardia overnight - palpitations improved and no episodes of dizziness yesterdat Dizziness - check orthostatics- negative - check carotid US- was scheduled to be done today as port of work up- no severe stenosis - Tele - no neuro deficits and denies vertigo sensation - consider PT vestibular referral on discharge - hyponatremia could be contributing also - SVT on zio patch- consult cardiology- uptitring metoprolol - improved. She didn't have any symptoms yesterday Elevated TSH Hypothyroidism - her symptoms all fit with hyperthyrodism - recheck TSH free t4 - dose was decreased from her levothyroxine was on 125mcg now down to 100mcg 6 times a week - check thyroid US to rule out nodules- negative - TSH still low, free t4 upper normal range - lower to 88mcg dose and recheck in 4 weeks Hyponatremia - she follows closely with nephrology outpt for worsening chronic hyponatremia - was suppose to start salt tabs outpt - nephrology consulted - check urine Na, osmol - fluid restruction, salt tabs, hold lasix - check am cortisol- pending - 1L fluid restriction salt tabs - 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 - continue urea for today Lung nodules - need f/u chest CT in 12 months - can refer to lung nodule clinic on disch (more content not included)...[facility] [id number] NoteHNO ID: [id number] Author: Liya Rose MD Service: Hospital Medicine Author Type: Physician Type: Progress Notes Filed: 08/11/2023 4:50 PM Note Text: DEPARTMENT OF HOSPITAL MEDICINE PROGRESS NOTE SERVICE DATE: 08/11/2023 SERVICE TIME: 4:09 PM Hospital Medicine/Primary Attending: Liya Rose MD NIGHT AND WEEKEND COVERAGE: EVENING SHADE COVERAGE: Days: [phone], please page attending physician. Nights: [phone], please page [facility] Night coverage pager [phone]. Subjective INTERVAL HPI: no palpitations so far in hospital. Sodium is still on low side. Zio patch reported was uplaoded showed some SVT Current Facility-Administered Medications Medication Dose Route Frequency NaCl 0.9% iv flush bag 20 mL INTRAVENOUS PRN acetaminophen 650 mg tab(s) (TYLENOL) 650 mg ORAL q 6 H PRN busPIRone 5 mg tab(s) (BUSPAR) 5 mg ORAL TID PRN levothyroxine 88 mcg tab(s) (SYNTHROID) 88 mcg ORAL DAILY influenza vaccine qs 240 mcg (Patients 65 years and older) (PF) 0.7 mL injection (FLUZONE HIGH DOSE ) 0.7 mL INTRAMUSCULAR ONCE (IMMUNIZATION) losartan 25 mg tab(s) (COZAAR) 25 mg ORAL BID melatonin 3 mg tab(s) 3 mg ORAL DAILY (8 PM) polyethylene glycol 3350 17 g packet 17 g ORAL DAILY hemorrhoid ointment ointment (PREPARATION H) RECTAL PRN sodium chloride 1,000 mg soluble tab(s) 1,000 mg ORAL BID sodium chloride 0.9 % (flush) 2-10 mL (BD POSIFLUSH) 2-10 mL INTRAVENOUS DIRECTED PRN And perflutren lipid microspheres 1.1 mg/mL 1.3 mL injection (DEFINITY) 1.3 mL INTRAVENOUS DIRECTED PRN urea 30 g oral powder (URE-NA) 30 g ORAL BID iv contrast (radiology procedure) INTRAVENOUS ONCE And enteric contrast (radiology procedure) ORAL DIRECTED PRN metoprolol succinate ER 25 mg tab(s) (TOPROL XL) 25 mg ORAL BID Objective PHYSICAL EXAM: BP 137/69 Pulse 81 Temp (Src) 97.9 (Oral) Resp 16 Ht 5' 2.5 (1.59m) Wt 136 lb 3.2 oz (61.8kg) SpO2 96% BMI 24.50 kg/(m2). O2 Therapy: Room Air Physical Exam Performed GENERAL: Alert, no distress, cooperative EYES: PERRLA, EOMI OROPHARYNX: Lips, mucosa, and tongue normal. Teeth and gums normal. Oropharynx normal. LUNGS: Lungs clear to auscultation, Good diaphragmatic excursion CARDIAC: Normal S1 and S2; no rubs, murmurs, or gallops ABDOMEN: Abdomen soft, non-tender, BS normal, No masses or organomegaly NEURO: Gait normal. Reflexes normal and symmetric. Sensation grossly intact, Cranial nerves II-XII intact Lines, Drains, and Airways Line Duration Peripheral 08/09/23 0958 [facility] Short Left Antecubital 20 Gauge 2 days Reviewed lines and needs to be continued: REASONS: DATA: Diagnostic tests reviewed for today's visit: Most recent labs Most recent imaging Assessment/Plan Problem List Hyponatremia (POA: Yes) Essential hypertension (POA: Yes) Hypothyroidism (POA: Yes) Gastroesophageal reflux disease (POA: Yes) Palpitation (POA: Status not on file) HOSPITAL COURSE: Casandra Henry is a 83 year old female with hypothyroidsm, HTN, GERD, anxiety, who presents with palpitation, dizziness. Palpitations Jitteriness SVT on zio patch - symptoms do all fit with hyperthyroid - recheck Tsh free t4 - f/u zio patch results when available - tele - monitor electrolytes - consider inc metoprolol dose cont 25mg XL for now - check metanephrines for pheo as she has had difficult to control HTN in the past - consult cardiology for SVT management- - check echo- with normal Ef no valve issues - will uptitrate metop to BID metop 25mg as she did have run of symptomatic tachycardia overnight Dizziness - check orthostatics- negative - check carotid US- was scheduled to be done today as port of work up- no severe stenosis - Tele - no neuro deficits and denies vertigo sensation - consider PT vestibular referral on discharge - hyponatremia could be contributing also - SVT on zio patch- consult cardiology- uptitring metoprolol Elevated TSH Hypothyroidism - her symptoms all fit with hyperthyrodism - recheck TSH free t4 - dose was decreased from her levothyroxine was on 125mcg now down to 100mcg 6 times a week - check thyroid US to rule out nodules- negative - TSH still low, free t4 upper normal range - lower to 88mcg dose and recheck in 4 weeks Hyponatremia - she follows closely with nephrology outpt for worsening chronic hyponatremia - was suppose to start salt tabs outpt - nephrology consulted - check urine Na, osmol - fluid restruction, salt tabs, hold lasix - check am cortisol - 1L fluid restriction salt tabs - 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 HTN - cont losartan pt was taking 25mg bid - cont metoprolol Weight loss - nutrition consult - loss of appetite may be from thyroid abn also Dispo: pt/ot Medication and Non-Pharmacologic VTE Prophylaxis/Anticoagulants 08/09/23 1700 activity - mobilize patient (nd,id) VTE Prophylaxis: VTE p (more content not included)...[facility] [id number] NoteHNO ID: [id number] Author: Liya Rose MD Service: Hospital Medicine Author Type: Physician Type: Progress Notes Filed: 08/10/2023 4:56 PM Note Text: DEPARTMENT OF HOSPITAL MEDICINE PROGRESS NOTE SERVICE DATE: 08/10/2023 SERVICE TIME: 4:50 PM Hospital Medicine/Primary Attending: Liya Rose MD NIGHT AND WEEKEND COVERAGE: EVENING SHADE COVERAGE: Days: [phone], please page attending physician. Nights: [phone], please page [facility] Night coverage pager [phone]. Subjective INTERVAL HPI: no palpitations so far in hospital. Sodium is still on low side. Zio patch reported was uplaoded showed some SVT Current Facility-Administered Medications Medication Dose Route Frequency NaCl 0.9% iv flush bag 20 mL INTRAVENOUS PRN acetaminophen 650 mg tab(s) (TYLENOL) 650 mg ORAL q 6 H PRN busPIRone 5 mg tab(s) (BUSPAR) 5 mg ORAL TID PRN metoprolol succinate ER 25 mg tab(s) (TOPROL XL) 25 mg ORAL DAILY levothyroxine 88 mcg tab(s) (SYNTHROID) 88 mcg ORAL DAILY [START ON 08/11/2023] influenza vaccine qs 240 mcg (Patients 65 years and older) (PF) 0.7 mL injection (FLUZONE HIGH DOSE ) 0.7 mL INTRAMUSCULAR ONCE (IMMUNIZATION) losartan 25 mg tab(s) (COZAAR) 25 mg ORAL BID melatonin 3 mg tab(s) 3 mg ORAL DAILY (8 PM) polyethylene glycol 3350 17 g packet 17 g ORAL DAILY hemorrhoid ointment ointment (PREPARATION H) RECTAL PRN sodium chloride 1,000 mg soluble tab(s) 1,000 mg ORAL BID Objective PHYSICAL EXAM: BP 114/53 Pulse 77 Temp (Src) 98.1 (Oral) Resp 18 Ht 5' 2.5 (1.59m) Wt 136 lb 3.2 oz (61.8kg) SpO2 99% BMI 24.50 kg/(m2). O2 Therapy: Room Air Physical Exam Performed GENERAL: Alert, no distress, cooperative EYES: PERRLA, EOMI OROPHARYNX: Lips, mucosa, and tongue normal. Teeth and gums normal. Oropharynx normal. LUNGS: Lungs clear to auscultation, Good diaphragmatic excursion CARDIAC: Normal S1 and S2; no rubs, murmurs, or gallops ABDOMEN: Abdomen soft, non-tender, BS normal, No masses or organomegaly NEURO: Gait normal. Reflexes normal and symmetric. Sensation grossly intact, Cranial nerves II-XII intact Lines, Drains, and Airways Line Duration Peripheral 08/09/23 0958 [facility] Short Left Antecubital 20 Gauge 1 day Reviewed lines and needs to be continued: REASONS: DATA: Diagnostic tests reviewed for today's visit: Most recent labs Most recent imaging Assessment/Plan Problem List Hyponatremia (POA: Yes) Essential hypertension (POA: Yes) Hypothyroidism (POA: Yes) Gastroesophageal reflux disease (POA: Yes) Palpitation (POA: Status not on file) HOSPITAL COURSE: Casandra Henry is a 83 year old female with hypothyroidsm, HTN, GERD, anxiety, who presents with palpitation, dizziness. Palpitations Jitteriness SVT on zio patch - symptoms do all fit with hyperthyroid - recheck Tsh free t4 - f/u zio patch results when available - tele - monitor electrolytes - consider inc metoprolol dose cont 25mg XL for now - check metanephrines for pheo as she has had difficult to control HTN in the past - consult cardiology for SVT management - check echo Dizziness - check orthostatics- negative - check carotid US- was scheduled to be done today as port of work up- no severe stenosis - Tele - no neuro deficits and denies vertigo sensation - consider PT vestibular referral on discharge - hyponatremia could be contributing also - SVT on zio patch- consult cardiology Elevated TSH Hypothyroidism - her symptoms all fit with hyperthyrodism - recheck TSH free t4 - dose was decreased from her levothyroxine was on 125mcg now down to 100mcg 6 times a week - check thyroid US to rule out nodules- negative - TSH still low, free t4 upper normal range - lower to 88mcg dose and recheck in 4 weeks Hyponatremia - she follows closely with nephrology outpt for worsening chronic hyponatremia - was suppose to start salt tabs outpt - nephrology consulted - check urine Na, osmol - fluid restruction, salt tabs, hold lasix HTN - cont losartan pt was taking 25mg bid - cont metoprolol Weight loss - nutrition consult - loss of appetite may be from thyroid abn also Medication and Non-Pharmacologic VTE Prophylaxis/Anticoagulants 08/09/23 1700 activity - mobilize patient (nd,oh) VTE Prophylaxis: VTE prophylaxis appropriate Disposition: Home Plan of care discussed with Provider, RN, Patient Plan communicated to: SIGNATURE: Liya Rose MD PATIENT NAME: Casandra Henry DATE: August 10, 2023 TIME: 4:50 PMUniversity Hospitals [facility] [id number] NoteHNO ID: [id number] Author: Hugh Vu MD Service: Nephrology Author Type: Physician Type: Plan of Care Filed: 08/10/2023 8:54 AM Note Text: Consult received; repeat labs this AM pending. Full note to follow this afternoon. I placed on fluid restriction yesterday. ThanksHughKettering Health Greene [id number] Miscellaneous Notes* Telephone Encounter - Aby Vega Ma - 08/05/2023 1:35 PM EST Call to pt and notified her of results and recommendation below from Provider. Verbalized understanding. Aby Vega Ma * Telephone Encounter - Donita Estes APRN.SATISH - 08/05/2023 11:35 AM EST PLease call patient and let her know that lab work shows that iron level is improved and back within normal limits. Sodium level is worsening. Potassium level is also elevated. I would like patient to increase fluid intake to 60-80 oz per day and repeat CMP in 1 week. Thank you, Donita Estes APRN.SATISH documented [facility]12-[facility]23 Miscellaneous Notes* Telephone Encounter - Silvana Rousseau - 07/28/2023 12:03 PM EST Pt informed, verbalized understanding. Silvana Rousseau MA * Telephone Encounter - Donita Estes APRN.CNP - 07/28/2023 11:58 AM EST Repeat CBC in 1 week to further investigate. Thank you, Donita Estes APRN.SATISH * Telephone Encounter - Silvana Rousseau - 07/28/2023 11:06 AM EST Pt informed, verbalized understanding. Pt asking about next step? Wondering why her WBC is elevated then. Should she get it rechecked? Silvana Rousseau MA * Telephone Encounter - Donita Estes APRN.CNP - 07/28/2023 10:20 AM EST Please call patient and let her know that mag and vitamin B12 were normal. Urine culture was also negative with no bacteria growth at all. Thank you, Donita Estes APRN.[employer]ORER [employer] documented [facility] this encounter[facility]23 Miscellaneous Notes* Telephone Encounter - Donita Estes APRN.SATISH - 07/26/2023 4:25 PM EST Order signed. Donita Estes APRN.SATISH * Telephone Encounter - Silvana Rousseau - 07/26/2023 4:21 PM EST Pt informed, verbalized understanding. Culture pended. Pt will give another urine sample in lab. Silvana Rousseau MA * Telephone Encounter - Donita Estes APRN.CNP - 07/26/2023 3:33 PM EST Please make sure that urine was sent for culture from UA reflex. Being asymptomatic for UTI, no need to treat with antibiotic now but I do want the culture to confirm d/t slight + leukocytes in UA. Please make pt aware of this. Thank you, Donita Estes APRN.SATISH documented in this encounterK[facility]12-04-2023 Miscellaneous Notes* Telephone Encounter - Chyna Ramirez RN - 07/26/2023 11:33 AM EST Pt called and is notified of providers message and instructions. Pt voices understanding. Chyna Ramirez RN * Telephone Encounter - Donita Estes APRN.CNP - 07/26/2023 11:23 AM EST Mag and vitamin b12 are ordered to have drawn. No need to repeat CBC yet since just drawn less than 1 week ago. Thank you, Donita Estes APRN.CNP * Telephone Encounter - Chyna Ramirez RN - 07/26/2023 8:43 AM EST Pt called in and reports she has to come in to get labs done to check on her infection as her whitecount was 16.45. I told her the only thing I saw as far as lab work was a uranalysis. She said thatwill check for the infection, but do they need to do other labs. I tried to explain that she just had her labs done 5 days ago and typically you need to wait longer to see any change. Pt states she started taking Magnesium because her Sodium was low. Pt reports she is taking 150 mg of Magnesium daily and started taking this two weeks ago. Pt never had a Mag level drawn. I told her for her Sodium she may have to watch how much water she is drinking so she isn't washing her Sodium out or use moresalt. Pt states she already watches her fluid intake per her kidney doctor. Pt is asking if the provider would add a B12 lab on as she is still feeling dizzy, nervous, and has tension. Please call and advise Pt if/when provider adds labs. documented in this encounterK[facility]12-01-2023 Miscellaneous Notes* Telephone Encounter - Casandra Hairston LPN - 07/23/2023 10:38 AM EST Spoke with pt gave information provided. Pt voices understanding. * Telephone Encounter - Donita Estes APRN.CNP - 07/23/2023 10:02 AM EST Thyroid levels are improved from prior. I don't think this is contributing to symptoms so I would recommend staying on current thyroid regimen. Sodium level remains low but stable. Iron level is very low. I would recommend restarting iron supplement BID and take with Vitamin C supplement to increase absorption and with OTC stool softener BID to help ease constipation with this. WBC could be elevated due to any minor viral or bacteria infection. Has patient had any cough, congestion, or sinus pressure? I would also recommend UA to make sure this is not due to a asymptomatic UTI given her age. UA ordered. I will discuss these results with Dr. Cortez to see if any other suggestions. Thank you, Donita Estes APRN.[employer] * Telephone Encounter - Anita Guevara RN - 07/23/2023 9:44 AM EST Pt calling in asking about results of labwork done on Wednesday the . States her daughter looked at it and they are concerned about her WBC count. Pt denies any UTI symptoms. Daughter worried that pt has an infection going on somewhere. Also noted abnormal thyroid and iron levels. Pt is not currently taking iron dailly. She states that about 1-2 weeks ago she stopped taking it daily as it wasmaking her constipated and aggravating her hemorrhoids. Also pt states she has not been taking her MVI or several months. Pt has not missed any thyroid meds. Pt states she is taking a Vitamin D 2000 international unit(s) 2 tabs a day and also a Vitamin B3 daily. Her daughter order her some OTC medsto help with her Magnesium and minerals. They are called ReMag and ReMyte 1/2 tsp mixed in water everyday. Pt asking if she has to take iron daily again, what could she use for the constipation? Pt uses [facility] in [place]. documented in this encounterK[facility]11-29-[facility]23 Nurse Note* Casandra Hairston LPN - 07/21/2023 8:19 AM EST EVENT MONITOR DISPOSABLE PATCH INSTRUCTIONS Patient Name: Casandra Elaine [facility] Number: [id number] Skin prepped and cleansed with alcohol Patch secured to prepped area Monitor Activated Serial #: [id number] Patient Instructed: Prescribed order timeframe Bathing guidelines Usage of event button and diary documentation Return of monitor at the end of prescribed order Call with problems [phone] or [phone] ext. [phone] Patient expresses a good understanding of instructions Casandra Hairston LPN documented in this encounterK[facility]11-29-2023 History of Present illness Narrative* Donita Estes APRN.[employer] - 07/21/2023 6:57 AM EST Chief Complaint Patient presents with: Follow Up HPI Casandra Henry is a 83 year old female who presents here today for Above Complaints. Casandra is an established patient of Dr. Cortez, DO and myself. Concerns today.... Ongoing dizziness -- Pt has seen this provider and Dr. Cortez numerous times for this same complaint. Saw Dr. Zapata 07/05, per her note: Needs to increase electrolytes in her fluids and her diet. Recheck labs in 2-3 weeks as ordered. D/c the metoprolol short acting and change to metoprolol XL 25 mg once a day to start- titrate up as needed. Start on iron supplement and continue levothyroxine 100 mcg a day. Continue spironolactone 25 mg twice a day as well as losartan 50 mg twice a day Today... Pt reports dizziness and heart palpitations persist. Occurring off and on throughout the day. Had 2-3 days in a row last week where she felt back to her normal self but then symptoms started up againon Wednesday. Ongoing since February. No syncopal episode since February. Admits to anxiety but not sure if anxiety causing symptoms or worsening symptoms due to not feelingwell. Does report listening to soothing music and relaxing helps her symptoms to improve. When she is feeling dizzy, weak, and generalized unwell, she will take BP and sometimes it is elevated to 150/90s. Sometimes it is normal. Has log with her: BP ranges from 110s-150s/60-90s Has not noticed any change in symptoms with changing thyroid regimen or BP regimen. Recent ER visit on 06/29. 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 Average heart rate 76, minimum was 48 and max was 138bpm all with sinus rhythm.Occasional PACs, 30 couplets, 11 beats bigeminy, and 3 beats trigeminy. No AFib. Pt noted mild SOB,nervousness, dizziness, and exhaustion with correlated sinus tachycardia, occasional ectopy, and NSR. Pt reports no severe episodes during this 48 hour monitoring compared to her recent symptoms. No other concerns or complaints. Past medical history, appointments, medications, allergies reviewed. Previous Medical History PAST MEDICAL HISTORY Diagnosis Date Acid reflux Hiatal hernia Hypertension Hypothyroid Previous Surgical History PAST SURGICAL HISTORY Procedure Laterality Date CARPAL TUNNEL 2001 bilateral COLONOSCOPY FLX DX W/COLLJ SPEC WHEN PFRMD 12/05/2013 Colonoscopy done in [facility] FLX W/REMOVAL LESION BY HOT BX FORCEPS 02/19/[address] Catarino Salas LAPAROSCOPIC DUODENAL BIOPSY 02/13/2020 Catarino Salas MD; duodenal biopsy, gastric antrum biopsy, irregular GE junction bopsy, proximal gastric body soft tissue prominence biopsy all performed Family History FAMILY HISTORY Problem Relation Age of Onset Stroke Mother 84 Hypertension Mother Heart Mother Cancer Father Lung 75 Cancer Paternal Grandmother Hypertension Sister Hypertension Sister Diabetes Sister Diabetes Sister Kidney Disease Brother 74 Patient Allergies ALLERGIES No Known Allergies Current Medications Current Outpatient Medications on File Prior to Visit Medication Sig metoprolol succinate ER (TOPROL XL) 25 mg 24 hr tablet Take 1 tablet by mouth once daily. levothyroxine (SYNTHROID) 100 mcg tablet Take 1 tablet by mouth once daily. Take on empty stomach spironolactone (ALDACTONE) 25 mg tablet Take 1 tablet by mouth twice daily. losartan (COZAAR) 50 mg tablet take 1 tablet by mouth twice a day metoprolol tartrate, short acting, (LOPRESSOR) 25 mg tablet take 1 tablet by mouth twice a day TENS unit and electrodes cmpk 1 Units as directed. Dx: chronic low back pain, lumbar radiculopathy omeprazole (PRILOSEC) 20 mg capsule Take 1 capsule by mouth every 48 hours. 1/2 hr before meal. multivit with iron,minerals (MULTIVITAMIN AND MINERALS ORAL) Take by mouth. ferrous sulfate 325 mg (65 mg iron) tablet Take 1 tablet by mouth twice daily with meals. Current Facility-Administered Medications on File Prior to Visit Medication perflutren lipid microspheres 1.3 mL in NaCl (PF) 0.9% 10 mL injection (DEFINITY) sodium chloride 0.9 % (flush) 10 mL (BD POSIFLUSH) Social History Social History Tobacco Use Smoking status: Never Smokeless tobacco: Never Substance Use Topics Alcohol use: No Drug use: No REVIEW OF SYSTEMS: as above Reviewed relevant PMHx, PSHx, Social Hx, current medications and allergies. Review of Symptoms REVIEW OF SYSTEMS See hpi EXAM: BP 138/60 (BP Site: Left Arm, BP Position: Sitting, BP Cuff Size: Regular Adult) Pulse 80 Resp 14 Wt 62.9 kg (138 lb 9.6 oz) SpO2 98% BMI 25.51 kg/m General Appearance: Well appearing, alert, in no acute distress, well-hydrated, well nourished.. Skin: Skin color, texture, turgor normal, no suspicious rashes or lesions. Head: Normocephalic, no masses, lesions, tenderness or abnormalities. Lungs: Lungs clear to auscultation. No wheezing, rhonchi, rales.. Heart: RRR without murmur, gallop, or rubs. No ectopy. Health Maintenance List RSV Vaccine(1 - 1-dose 60+ series) Never done Advance Directive Discussion Never done Influenza Vaccine(1) due on 02/20/2024 DTaP,Tdap,Td Vaccine(1 - Tdap) due on 05/17/2024 Covid-19 Vaccine(4 - season) due on 05/17/2024 Diabetes Screening due on 07/02/2026 Bone Density Screening Completed Depression Assessment Completed Shingrix Vaccine Completed Pneumococcal Vaccine: 65+ Completed Colorectal Cancer Screening Discontinued ASSESSMENT/PLAN: 1. Dizziness - ICD9: 780.4, ICD10: R42 (primary diagnosis) Ziomonitor placed in office today to wear x 2 weeks due to no significant episodes during 48 hour monitoring in ER (results scanned into computer to refer to). US of carotid arteries to compare to prior completed 1 year ago. - LIPID PANEL BASIC - OUTSIDE VENDOR CARDIAC OUTPATIENT EXTENDED RHYTHM RECORDING (WITHOUT TELEMETRY) - US CAROTID ARTERIES DOE VAS LAB 2. Hypothyroidism, unspecified type - ICD9: 244.9, ICD10: E03.9 Recheck labs with recent medication change. - TSH BLD - T3 BLD - T4 FREE/FREE THYROX 3. Essential hypertension - ICD9: 401.9, ICD10: I10 - Controlled, reassess at follow-up in 1 month about titration of medications. - Continue current medications - Recommend home blood pressure monitoring, to bring results to next visit - Encouraged sodium restriction, DASH or Mediterranean diet - Recommend regular aerobic exercise 4. CHECO (generalized anxiety disorder) - ICD9: 300.02, ICD10: F41.1 Is anxiety causing symptoms or are symptoms causing anxiety which in turn is making the episodes worse? Trial buspar TID as needed. If any benefit, we can consider daily SSRI. Re-assess at follow-up visit in 1 month. - BUSPIRONE 5 MG TABLET 5. Hyponatremia - ICD9: 276.1, ICD10: E87.1 Recheck with CMP as ordered prior. RTO in 1 months, sooner if needed. Prescription instructions reviewed with patient as applicable. Potential red flag symptoms discussed with the patient. Reviewed appropriate action plan to take if red flag symptoms occur. Patient agreeable to treatment plan. Donita Gonzales APRN.SATISH [address] [place] [address] documented in this encounterK[facility]11-22-2023 History of Present illness Narrative* Sreekanth Cortez, - 07/14/2023 7:11 AM EST CC: Casandra Henry is a 83 year old female who presents to the office for follow up HPI: At appt March 2023 She was recently seen in the EMERGENCY DEPARTMENT due to elevated BLOOD PRESSURE in the 160s/90s and not feeling well. She had work up at [facility] in the EMERGENCY DEPARTMENT including cardiac and labs and UA. UA did show concerns for UTI started, she was sent home with rx for Keflex for 3 days which she took and tolerated well. Her dose of her spironolactone was increased to 25 mg twice a day which she has been taking. She is also taking losartan 50 mg twice a day and lopressor 25 mg twice a day. Over the last 4-5 days her blood pressure has been much better in the 110-120/60-70s range and heart rate in the 60-70s range. She feels still some bladder symptoms of urgency and frequency Hypothyroidism, currently taking levothyroxine 125 mcg 2 days a week and 100 mcg 5 days a week. At follow up appt with Donita Estes CNP on 05/17/[address] Cortez on 03/31 d/t dysuria. UA + for ifeoma esterase. Pt given keflex regimen RX. Urine culture came back negative. Pt stopped antibiotic regimen Pt in office today.. Pt reports intermittent dizziness and shakiness x 3 months. Pt reports she had these symptoms in February that sent her to ER -- entire cardiac work-up was negative and staff contributed symptoms to dx of UTI. Was on Keflex and symptoms seemed to improve short term. Now they return off and on and pt wondering if it is UTI again. Pt denies any dysuria, hematuria, urinary urgency or frequency. Pt reports feeling mildly dizzy and shaky off and on throughout the day. Symptoms last a few minutes and then subside. Pt does feel like if she eats she feels better. Otherwise, pt is unsure how to further describe this sensation. Checking BP at home and remains stable around 120s/70s. Denies any SOB, CP, palpitations, or pain. At next office visit on 06/16/23 by Donita Estes CNP For hyponatremia in labs, Takes spironolactone BID for leg swelling. Pt reports huge improvement. No edema recently. Pt reports father with chronically low sodium levels as well. Pt reports episodes of mild dizziness occasionally and just feeling like a brain fog. Pt will go sit down and symptoms will resolve shortly. Also reports when she eats something, these symptoms improve. Please refer to last visit on 05/17 with this provider as well. Wondering if related to sodium level and thyroid levels. Hx of hypothyroidism -- Recently decreased synthroid regimen from 125 mcg daily to 100 mcg daily about 1 week ago. Component Latest Ref Rng & Units 06/08/2023 TSH 0.270 - 4.200 mIU/L 0.062 (L) Free T4 0.9 - 1.7 ng/dL 2.1 (H) Free T3 2.3 - 4.1 pg/mL 2.9 BP readings at home remain stable. Pt brought BP readings in with her -- range from 115-135/70-92. Heart rate range from 70-93. Cardiac work-up in ER recently was normal. Last 14 Encounter BP Readings: Date: BP: 06/16/2023 142/60 05/17/2023 130/60 03/31/2023 134/70 03/15/2023 138/80 03/10/2023 133/71[average with bp machine[ 12/25/2022 150/80 08/31/2022 138/94 07/08/2022 130/82 04/06/2022 122/84 02/25/2022 136/60 01/24/2021 134/74 07/26/2020 150/80 01/24/2020 120/70 06/28/2019 126/70 Currently Recently sodium levels at 128, chloride at 94, K 4.5 hemoglobin at 10.9 and glucose at 102, creatinine at 0.92, troponin at 8 pg. She was constipated from generic iron in the past. She admits to not drinking a lot of water. Symptoms strated in [place]- coming and going- feels nervous and exhausted and tachycardia and shaky and weak during these episodes that come and go. BLOOD PRESSURE at home recently 101/57 with pulse 72 163/80 with pulse 73 113/59 with pulse 88 168/79 with pulse 83 She is taking her metoprolol as prescribed PAST MEDICAL HISTORY Diagnosis Date Acid reflux Hiatal hernia Hypertension Hypothyroid PAST SURGICAL HISTORY Procedure Laterality Date CARPAL TUNNEL 2000 bilateral COLONOSCOPY FLX DX W/COLLJ SPEC WHEN PFRMD 12/05/2013 Colonoscopy done in [facility] FLX W/REMOVAL LESION BY HOT BX FORCEPS 02/19/[address] Catarino Salas LAPAROSCOPIC DUODENAL BIOPSY 02/13/2020 Catarino Salas MD; duodenal biopsy, gastric antrum biopsy, irregular GE junction bopsy, proximal gastric body soft tissue prominence biopsy all performed Current Outpatient Medications Medication Sig levothyroxine (SYNTHROID) 100 mcg tablet Take 1 tablet by mouth once daily. Take on empty stomach spironolactone (ALDACTONE) 25 mg tablet Take 1 tablet by mouth twice daily. losartan (COZAAR) 50 mg tablet take 1 tablet by mouth twice a day metoprolol tartrate, short acting, (LOPRESSOR) 25 mg tablet take 1 tablet by mouth twice a day TENS unit and electrodes cmpk 1 Units as directed. Dx: chronic low back pain, lumbar radiculopathy multivit with iron,minerals (MULTIVITAMIN AND MINERALS ORAL) Take by mouth. ferrous sulfate 325 mg (65 mg iron) tablet Take 1 tablet by mouth twice daily with meals. metoprolol succinate ER (TOPROL XL) 25 mg 24 hr tablet Take 1 tablet by mouth once daily. omeprazole (PRILOSEC) 20 mg capsule Take 1 capsule by mouth every 48 hours. 1/2 hr before meal. Current Facility-Administered Medications Medication Dose Route Frequency perflutren lipid microspheres 1.3 mL in NaCl (PF) 0.9% 10 mL injection (DEFINITY) INTRAVENOUS DIRECTED PRN sodium chloride 0.9 % (flush) 10 mL (BD POSIFLUSH) 10 mL INTRAVENOUS DIRECTED PRN ALLERGIES No Known Allergies Social History Tobacco Use Smoking status: Never Smokeless tobacco: Never Substance Use Topics Alcohol use: No Drug use: No ROS: See HPI PE: BP 138/84 Pulse 80 Temp (Src) 98.9 (Left Tympanic) Resp 16 Wt 140 lb (63.5kg) Gen: A&OX3, NAD, non-toxic appearing HEENT: PERRLA, EOMs intact b/l, nares without drainage, pharynx without erythema, exudate, lesions,or drainage. Uvula midline. Neck: No LAD, no thyromegaly, no meningismus. CV: RRR, no murmur Lungs: CTA b/l, no wheezing Skin: No rashes, lesions, or wounds on exposed skin. No distress No edema, normal peripheral pulses ASSESSMENT/PLAN: 1. Hyponatremia - ICD9: 276.1, ICD10: E87.1 (primary diagnosis) Needs to increase electrolytes in her fluids and her diet. Recheck labs in 2-3 weeks as ordered. D/c the metoprolol short acting and change to metoprolol XL 25 mg once a day to start- titrate up as needed. Start on iron supplement and continue levothyroxine 100 mcg a day. Continue spironolactone 25mg twice a day as well as losartan 50 mg twice a day - COMP METABOLIC PANEL 2. Anemia, unspecified type - ICD9: 285.9, ICD10: D64.9 Needs to increase electrolytes in her fluids and her diet. Recheck labs in 2-3 weeks as ordered. D/c the metoprolol short acting and change to metoprolol XL 25 mg once a day to start- titrate up as needed. Start on iron supplement and continue levothyroxine 100 mcg a day. Continue spironolactone 25mg twice a day as well as losartan 50 mg twice a day - CBC - COMP METABOLIC PANEL - IRON + TIBC - FERRITIN BLD 3. Hypothyroidism, unspecified type - ICD9: 244.9, ICD10: E03.9 Needs to increase electrolytes in her fluids and her diet. Recheck labs in 2-3 weeks as ordered. D/c the metoprolol short acting and change to metoprolol XL 25 mg once a day to start- titrate up as needed. Start on iron supplement and continue levothyroxine 100 mcg a day. Continue spironolactone 25mg twice a day as well as losartan 50 mg twice a day 4. Dizziness - ICD9: 780.4, ICD10: R42 Needs to increase electrolytes in her fluids and her diet. Recheck labs in 2-3 weeks as ordered. D/c the metoprolol short acting and change to metoprolol XL 25 mg once a day to start- titrate up as needed. Start on iron supplement and continue levothyroxine 100 mcg a day. Continue spironolactone 25mg twice a day as well as losartan 50 mg twice a day 5. Essential hypertension - ICD9: 401.9, ICD10: I10 - Uncontrolled - Recommend home blood pressure monitoring, to bring results to next visit - Encouraged sodium restriction, DASH or Mediterranean diet - Recommend regular aerobic exercise 6. Fatigue, unspecified type - ICD9: 780.79, ICD10: R53.83 Needs to increase electrolytes in her fluids and her diet. Recheck labs in 2-3 weeks as ordered. D/c the metoprolol short acting and change to metoprolol XL 25 mg once a day to start- titrate up as needed. Start on iron supplement and continue levothyroxine 100 mcg a day. Continue spironolactone 25mg twice a day as well as losartan 50 mg twice a day 7. Shakiness - ICD9: 781.0, ICD10: R25.1 Needs to increase electrolytes in her fluids and her diet. Recheck labs in 2-3 weeks as ordered. D/c the metoprolol short acting and change to metoprolol XL 25 mg once a day to start- titrate up as needed. Start on iron supplement and continue levothyroxine 100 mcg a day. Continue spironolactone 25mg twice a day as well as losartan 50 mg twice a day Sreekanth Cortez DO Return if no improvement. Follow up with Sreekanth Cortez DO. To ER if develops chest pain, shortness of breath. Discussed risks, benefits, alternatives, and potential side effects of medications. Patient/Guardian expressed understanding and agreed with the plan. See patient instructions. Sreekanth Cotrez DO [address] [place] [address] documented in this encounterK[facility]11-21-2023 Miscellaneous Notes* Telephone Encounter - Gisselle Bush LPN - 07/13/2023 8:08 AM EST Pt. informed. * Telephone Encounter - Sreekanth Cortez DO - 07/12/2023 5:14 PM EST Please 1st have her start on 25 mg xl once a day metoprolol. Can increase dose in 2 weeks if BLOOD PRESSURE isn't controlled at 130s/80s or less Sreekanth Cortez DO The following approved medication requests have been transmitted electronically. Requested Prescriptions Signed Prescriptions Disp Refills metoprolol succinate ER (TOPROL XL) 25 mg 24 hr tablet 90 tablet 1 Sig: Take 1 tablet by mouth once daily. Authorizing Provider: SREEKANTH CORTEZ DO * Telephone Encounter - Roxanne Felix RN - 07/08/2023 9:38 AM EST Patient calls and states that at appointment on 07/05 provider had switched patient's metoprolol from short acting to long acting. Patient went to pick this up at pharmacy and it was not there. Patient will continue to take the short acting until prescription for long acting gets to pharmacy. Please review and advise, Roxanne Felix RN documented in this encounterKet[facility]11-07-2023 Discharge summary Author Josselyn Adhikari [facility] June 29, 2023 3:14pm Note Date/Time June 29, 2023 1 1:03am [facility] Medical Records Department [address] [place] [address] Emergency Department Summary 06/29/23 MR#: [id number] Acct: [id number] Name: CASANDRA HENRY Rep #:[id number] : 1940 83 From: Josselyn Adhikari DO PCP: Dr. Sreekanth Cortez DO Status:RE G ER Location: ED HPI History of Present Illness Chief Complaint: Dizziness Detail of Chief Complaint: Dizziness and generalized weakness Informant: patient Narrative Narrative: Patient presents to the emergency department complaint of feeling lightheaded and presyncopal for the last 4 months. She has been seeing her primary care physician and they have been adjusting her thyroid medication. She did have a syncopal episode in February of this year but none since. She denies chest pain or shortness of breath out of the ordinary. She denies abdominal pain. She deniesurinary symptoms. Patient states she was in the emergency department a month and a half ago and had an elevated white blood cell count and they treated her for some sort of an infection but discharged her home. Patient also with history of hyponatremia. Prior similar symptoms: Yes PFSH PFS Medical History (Updated 06/29/23 @ 14:[address] Josselyn Adhikari DO) Hypertension Home Medications levothyroxine 100 mcg tablet 100 mcg PO BREAKFAST 08/21/16 [History Last Taken 1 Day Ago ~10/02/17] metoprolol tartrate 50 mg tablet 25 mg PO BID 08/21/16 [History Last Taken 1 Day Ago ~10/02/17] losartan 50 mg tablet 50 mg PO BID BP CTRL 10/03/17 [History Last Taken 1 Day Ago ~10/02/17] ferrous sulfate 325 mg (65 mg iron) tablet 325 mg PO DAILY@0800 #30 tabs 10/06/17 [Rx Last Taken Unknown] cephalexin 500 mg capsule 500 mg PO Q6 #12 CAPSULES 03/20/23 [Rx Last Taken Unknown] omeprazole 20 mg capsule,delayed release 20 mg PO .q3day 03/20/23 [History Last Taken Unknown] spironolactone 25 mg tablet 25 mg PO BID 03/20/23 [History Last Taken Unknown] Allergy/AdvReac Type Severity Reaction Status Date / Time No Known Allergies Allergy Verified 06/29/23 10:48 Surgical History (Updated 03/20/23 @ 17:[address] Frederick Carrasco DO) History of carpal tunnel surgery Social History Smoking Status: Never smoker ROS ROS ED Review of Systems ROS Unobtainable: other Constitutional Constitutional ED: Reports lethargy; Denies chills, fever(s), sweats or weight loss Eyes Eyes: Denies blurry vision, change in vision or diplopia ENT ENT ED: Denies rhinorrhea or sore throat Cardiovascular Cardiovascular: Denies chest pain, orthopnea or racing heartbeat Respiratory/Chest Respiratory/Chest: Denies cough, dyspnea, dyspnea on exertion, orthopnea or sputum Gastrointestinal Gastrointestinal: Denies abdominal pain, diarrhea, nausea or vomiting Genitourinary Genitourinary ED: Denies dysuria, hematuria or urinary frequency Musculoskeletal Musculoskeletal: Denies arthralgias, back pain, myalgias or neck pain Integumentary Denies abscess, Abrasions or rash Neurologic Neurologic: Reports headache(s) and weakness Psychiatric Psychiatric: Denies anxiety, depression or suicidal thoughts Endocrine Endocrinology: Denies polydipsia, polyphagia or polyuria Hematologic/Lymphatic Hematologic/Lymphatic: Denies easy bleeding, easy bruising or lymphadenopathy Allergic/Immunologic Allergic/Immunologic ED: Denies mouth swelling, tongue swelling or urticaria EXAM Physical Exam Const Vital Signs: 06/29/23 10:47 06/29/23 11:38 06/29/23 14:09 Temperature 96.5 F L Temperature Source Temporal Pulse Rate 90 72 Pulse Rate [Lying] 64 Pulse Rate [Sitting (for 1 minute prior to obtaining)] 70 Pulse Rate [Standing (for 1 minute prior to obtaining)] 71 Respiratory Rate 18 18 Blood Pressure 175/81 H Blood Pressure [Lying] 155/65 H Blood Pressure [Sitting (for 1 minute prior to obtaining)] 165/75 H Blood Pressure [Standing (for 1 minute prior to obtaining)] 151/68 H Blood Pressure Mean 112 Blood Pressure Mean [Lying] 95 Blood Pressure Mean [Sitting (for 1 minute prior to obtaining)] 105 Blood Pressure Mean [Standing (for 1 minute prior to obtaining)] 95 Pulse Ox 98 98 Oxygen Delivery Method Room Air Room Air Positive well nourished and well developed General Appearance ED: well developed and NAD HEENT Reports TM's clear and moist mucous membranes normocephalic and atraumatic; Negative for trauma or tenderness Tympanic Membrane ED: Yes TM's clear Eyes PERRL and EOMs intact bilaterally General Eye ED: Negative for pale conjunctiva or scleral icterus Neck no lymphadenopathy, supple and no JVD General: Negative for tenderness Chest Wall inspection of chest normal and palpation of chest normal Chest: Negative for tenderness Resp normal respiratory effort and clear to auscultation bilaterally Effort and Inspection: Negative for respiratory distress or pain with movement Auscultation: Negative for rhonchi, wheezes or diminished lung sounds Cardio regular rate, regular rhythm, S1 normal heart sound, S2 normal heart sound and no murmurs Peripheral Pulses: pulses 2+ throughout GI normal to inspection, nondistended, normoactive bowel sounds, soft to palpation,non-tender, non-distended and no masses Back/Spine no CVA tenderness and no thoracic nor lumbar tenderness Extremity normal to inspection General Extremety ED: Negative for edema General Extremity: Negative for edema Neuro oriented x3, CN's II-XII intact bilaterally, no sensory deficits noted and gait normal Sensorium / Orientation: awake, alert, oriented to person, oriented to place andoriented to time Motor Exam: strength 5/5 throughout and strength abnormal Psych mental status grossly normal Skin no rashes or lesions noted and no wounds MDM MDM MDM Narrative Medical decision making narrative: Patient presents with vague symptoms of dizziness for 4 months. She been seeingher primary care physician. She describes some vague headaches. Patient also states that at times feels like her hearts racing and that she becomes anxious. In the differential would be orthostatic hypotension versus infectious etiology versus cardiac dysrhythmia versus acute intracranial pathology. CT scan of the brain without contrast obtained showed chronic emotional changes otherwise nothing acute. EKG obtained arrival shows sinus rhythm with ventricular rate of75 bpm with no acute ST segment changes. CBC with differential showed a white count of 9.1 with hemoglobin 10.9 and platelet count of 338. Chemistries unremarkable. Troponin normal at 8. Urinalysis was normal. Orthostatic vital signs were negative. Etiology of patient's symptoms unclear. Patient will havea Holter monitor placed for 48 hours. She is advised to follow-up with her primary care physician and follow-up with cardiology if her symptoms persist. Lab Data Attestation: I reviewed the patient's lab results. Labs: Laboratory Results - last 24 hr 06/29/23 06/29/23 06/29/23 11:15 11:52 14:04 WBC 9.1 RBC 3.58 L Hgb 10.9 L Hct 32.5 L MCV 90.8 MCH 30.4 MCHC 33.5 RDW Std Deviation 38.9 RDW Coeff of Selam 11.8 Plt Count 338 MPV 9.1 Immature Gran % (Auto) 0.700 Neut % (Auto) 67.9 Lymph % (Auto) 18.0 L [place] % (Auto) 9.5 Eos % (Auto) 3.6 Baso % (Auto) 0.3 Absolute Neuts (auto) 6.1 Absolute Lymphs (auto) 1.63 Nucleated RBC % 0 Sodium 128 L Potassium 4.5 Chloride 97 L Carbon Dioxide 25.0 Anion Gap 6 BUN 11 Creatinine 0.93 Estim Creat Clear Calc 35.80 Est GFR (MDRD) Af Amer 75 Est GFR (MDRD) Non-Af 62 BUN/Creatinine Ratio 11.9 Glucose 102 Calcium 9.1 Troponin I High Sens 8 Urine Color Yellow Yellow Urine Clarity Clear Clear Urine pH 7.0 7.0 Ur Specific [place] 1.005 1.005 Urine Protein Negative Negative Urine Glucose (UA) Normal Normal Urine Ketones Negative Negative Urine Occult Blood Negative Negative Urine Nitrite Negative Negative Urine Bilirubin Negative Negative Urine Urobilinogen Normal Normal Ur Leukocyte Esterase 500 H 25 H Urine RBC Cancelled 0 SEEN Urine WBC Cancelled 0 SEEN Ur Squamous Epith Cells Cancelled 0 SEEN Ur Transition Epith Cell Cancelled Ur Renal Epithelial Cell Cancelled Calcium Oxalate Crystal Cancelled Uric Acid Crystals Cancelled Triple Phos Crystals Cancelled Other Crystals Cancelled Amorphous Sediment Cancelled Urine Bacteria Cancelled 0 SEEN Hyaline Casts Cancelled Fine Granular Casts Cancelled Coarse Granular Casts Cancelled Waxy Casts Cancelled RBC Casts Cancelled WBC Casts Cancelled Urine Mucus Cancelled 0 SEEN Urine Trichomonas Cancelled Urine Yeast Cancelled Radiography Diagnostic Testing: Clinical Impression(s) from Imaging Studies Brain CT 06/29/23 11:00 IMPRESSION: Chronic involutional changes of the brain. Electronically Signed: Albin Powell MD at 12:29 EST , EKG Initial EKG: Attestation: I personally reviewed and interpreted this EKG as follows: Comments: Sinus rhythm with rate 75 bpm with no acute ST segment changes Prior EKG tracings: available for review Prior: Unchanged Discharge Plan Triage Chief Complaint: Dizziness ED Provider: Josselyn Adhikari Dx/Rx/DC Orders Clinical Impression: Palpitations, Dizziness, Near syncope Instructions: ED Dizziness, Uncertain Cause, ED Palpitations, ED Near-Fainting,Uncertain Cause Prescriptions: No Action levothyroxine 100 MCG tablet 100 mcg PO BREAKFAST metoprolol tartrate 50 MG tablet 25 mg PO BID losartan 50 MG tablet 50 mg PO BID ferrous sulfate 325 MG tablet 325 mg PO DAILY@0800 Qty: 30 0RF omeprazole 20 mg capsule,delayed release(DR/EC) 20 mg PO .q3day Patient Comments: take 1 capsule by mouth EVERY 48 HOURS 30 MINUTES PRIOR TO A MEAL spironolactone 25 mg tablet 25 mg PO BID Patient Comments: take 1 tablet by mouth twice a day cephalexin [cephalexin] 500 mg capsule 500 mg PO Q6 Qty: 12 0RF Primary Care Provider: Sreekanth Cortez Referrals: Sreekanth Cortez DO [Primary Care Provider] - 5-7 Days Disposition Disposition: Home, Self Care What to do if you have Problems For any increased pain, shortness of breath, bleeding, nausea or vomiting, chestpain, or any unexpected problems, contact your Primary Care Provider. Call [facility] ([phone]) or report to the closest Emergency Room. Call 911 if necessary. 06/29/23 1514 <Electronically signed by Josselyn Adhikari DO> Cosigner Signature (if applicable): CC: Dr. Sreekanth Cortez DO ~ Signed [facility] Work Phone: 1(159) 494-777711-07-2023 History of Present illness Narrative* Yuan Syed, [employer] - 06/29/2023 10:39 AM EST Nontoxic appearing female presents to urgent care chief complaint worsening dizziness. Duration of symptoms ongoing. Patient was currently under care from PCP for this. This has been ongoing for the past 3 to 4 months. Woke up this morning increased weakness and dizziness. States this does not feellike previous dizziness. With patient's presenting symptoms recommend patient be seen in ED for further urgent care. states will transport patient to [facility]. verbalized understand agrees with plan of care. Yuan Syed APRN.SATISH documented [facility] Miscellaneous Notes* Telephone Encounter - Gisselle Bush LPN - 06/23/2023 12:15 PM EDT Form faxed. * Telephone Encounter - Donita Estes APRN.CNP - 06/23/2023 10:42 AM EDT Form filled out and in my outbox. Please fax. Thank you, Donita Estes APRN.[employer] * Telephone Encounter - Sreekanth Cortez DO - 06/22/2023 1:47 PM EDT To Donita to review Sreekanth Cortez DO * Telephone Encounter - Ai Jorgensen Ma - 06/22/2023 12:48 PM EDT Form received and given to Dr. Cortez's nurse. Ai Jorgensen Ma * Telephone Encounter - Masood Wall RN - 06/22/2023 10:37 AM EDT [facility]- [facility]- reports patient is having 4 extractions this coming . [facility] is faxing a clearance form to pcp today, because patient informed them she had some low lab results. Nely Duckworth on 06-16-23. Asking if pcp can clear patient for extractions, fill out/sign form and fax back to them at fax # [phone]. documented in this encounter[facility]10-[facility]23 Miscellaneous Notes* Telephone Encounter - Anita Cain LPN - 06/17/2023 9:26 AM EDT Patient notified of results, verbalizes understanding of instructions. Anita Cain LPN * Telephone Encounter - Donita Estes APRN.CNP - 06/17/2023 7:26 AM EDT Please call patient and let her know that sodium remains stable and just as low at 129. We need to decrease spironolactone regimen to once daily. Monitor swelling in legs with this decrease and repeat CMP lab work to recheck sodium level in 2 weeks. Thank you, Donita Estes APRN.[employer] documented in this encounterK[facility]10-25-[facility]23 History of Present illness Narrative* Donita Estes APRN.CNP - 06/16/2023 8:00 AM EDT Chief Complaint Patient presents with: labs showed dehydration and sodium chloridelevels: Review lab results HPI Casandra Henry is a 83 year old female who presents here today for Above Complaints.. Casandra is an established patient of Dr. Diego DO and myself. Concerns today... Review lab work d/t low sodium levels. Chronically low but never this low before. Component Latest Ref Rng & Units 11/18/2022 03/10/2023 05/20/2023 Protein, Total 6.3 - 8.0 g/dL 6.9 6.9 Albumin 3.9 - 4.9 g/dL 4.1 4.1 Calcium 8.5 - 10.2 mg/dL 9.7 9.6 9.7 Bilirubin, Total 0.2 - 1.3 mg/dL 1.4 (H) 1.1 Alkaline Phosphatase 34 - 123 U/L 117 117 AST 13 - 35 U/L 18 18 ALT 7 - 38 U/L 19 14 Glucose 74 - 99 mg/dL 97 102 (H) 94 BUN 7 - 21 mg/dL 9 9 10 Creatinine 0.58 - 0.96 mg/dL 0.96 0.92 0.92 Sodium 136 - 144 mmol/L 132 (L) 133 (L) 129 (L) Potassium 3.7 - 5.1 mmol/L 4.6 4.9 4.8 Chloride 97 - 105 mmol/L 97 98 96 (L) CO2 22 - 30 mmol/L 22 22 23 Anion Gap 9 - 18 mmol/L 13 13 10 eGFR >=60 mL/min/1.73m 60 63 63 Osmolality 275 - 300 mOsm/kg 276 Osmolality, Urine 50 - 1,200 mOsm/kg 327 Takes spironolactone BID for leg swelling. Pt reports huge improvement. No edema recently. Pt reports father with chronically low sodium levels as well. Pt reports episodes of mild dizziness occasionally and just feeling like a brain fog. Pt will go sit down and symptoms will resolve shortly. Also reports when she eats something, these symptoms improve. Please refer to last visit on 05/17 with this provider as well. Wondering if related to sodium level and thyroid levels. Hx of hypothyroidism -- Recently decreased synthroid regimen from 125 mcg daily to 100 mcg daily about 1 week ago. Component Latest Ref Rng & Units 06/08/2023 TSH 0.270 - 4.200 mIU/L 0.062 (L) Free T4 0.9 - 1.7 ng/dL 2.1 (H) Free T3 2.3 - 4.1 pg/mL 2.9 BP readings at home remain stable. Pt brought BP readings in with her -- range from 115-135/70-92. Heart rate range from 70-93. Cardiac work-up in ER recently was normal. Last 14 Encounter BP Readings: Date: BP: 06/16/2023 142/60 05/17/2023 130/60 03/31/2023 134/70 03/15/2023 138/80 03/10/2023 133/71[average with bp machine[ 12/25/2022 150/80 08/31/2022 138/94 07/08/2022 130/82 04/06/2022 122/84 02/25/2022 136/60 01/24/2021 134/74 07/26/2020 150/80 01/24/2020 120/70 06/28/2019 126/70 Past medical history, appointments, medications, allergies reviewed. Previous Medical History PAST MEDICAL HISTORY Diagnosis Date Acid reflux Hiatal hernia Hypertension Hypothyroid Previous Surgical History PAST SURGICAL HISTORY Procedure Laterality Date CARPAL TUNNEL 2000 bilateral COLONOSCOPY FLX DX W/COLLJ SPEC WHEN PFRMD 12/05/2013 Colonoscopy done in [facility] FLX W/REMOVAL LESION BY HOT BX FORCEPS 02/19/[address] Catarino Salas LAPAROSCOPIC DUODENAL BIOPSY 02/13/2020 Catarino Salas MD; duodenal biopsy, gastric antrum biopsy, irregular GE junction bopsy, proximal gastric body soft tissue prominence biopsy all performed Family History FAMILY HISTORY Problem Relation Age of Onset Stroke Mother 84 Hypertension Mother Heart Mother Cancer Father Lung 75 Cancer Paternal Grandmother Hypertension Sister Hypertension Sister Diabetes Sister Diabetes Sister Kidney Disease Brother 74 Patient Allergies ALLERGIES No Known Allergies Current Medications Current Outpatient Medications on File Prior to Visit Medication Sig levothyroxine (SYNTHROID) 100 mcg tablet Take 1 tablet by mouth once daily. Take on empty stomach spironolactone (ALDACTONE) 25 mg tablet Take 1 tablet by mouth twice daily. losartan (COZAAR) 50 mg tablet take 1 tablet by mouth twice a day metoprolol tartrate, short acting, (LOPRESSOR) 25 mg tablet take 1 tablet by mouth twice a day TENS unit and electrodes cmpk 1 Units as directed. Dx: chronic low back pain, lumbar radiculopathy omeprazole (PRILOSEC) 20 mg capsule Take 1 capsule by mouth every 48 hours. 1/2 hr before meal. multivit with iron,minerals (MULTIVITAMIN AND MINERALS ORAL) Take by mouth. ferrous sulfate 325 mg (65 mg iron) tablet Take 1 tablet by mouth twice daily with meals. Current Facility-Administered Medications on File Prior to Visit Medication perflutren lipid microspheres 1.3 mL in NaCl (PF) 0.9% 10 mL injection (DEFINITY) sodium chloride 0.9 % (flush) 10 mL (BD POSIFLUSH) Social History Social History Tobacco Use Smoking status: Never Smokeless tobacco: Never Substance Use Topics Alcohol use: No Drug use: No REVIEW OF SYSTEMS: as above Reviewed relevant PMHx, PSHx, Social Hx, current medications and allergies. Review of Symptoms REVIEW OF SYSTEMS See HPI. EXAM: BP 142/60 (BP Site: Left Arm, BP Position: Sitting, BP Cuff Size: Regular Adult) Pulse 68 Resp 16 Wt 63.1 kg (139 lb 3.2 oz) BMI 25.62 kg/m General Appearance: Well appearing, alert, in no acute distress, well-hydrated, well nourished.. Skin: Skin color, texture, turgor normal, no suspicious rashes or lesions. Head: Normocephalic, no masses, lesions, tenderness or abnormalities. Lungs: Lungs clear to auscultation. No wheezing, rhonchi, rales.. Heart: RRR without murmur, gallop, or rubs. No ectopy. Extremities: No deformities, edema, skin discoloration, clubbing or cyanosis. Good capillary refill. . Peripheral Pulses: Normal. Neurologic: Gait normal. Sensation grossly intact.. Health Maintenance List RSV Vaccine(1 - 1-dose 60+ series) Never done Advance Directive Discussion Never done Influenza Vaccine(1) due on 02/20/2024 DTaP,Tdap,Td Vaccine(1 - Tdap) due on 05/17/2024 Covid-19 Vaccine( season) due on 05/17/2024 Diabetes Screening due on 05/20/2026 Bone Density Screening Completed Depression Assessment Completed Shingrix Vaccine Completed Pneumococcal Vaccine: 65+ Completed Colorectal Cancer Screening Discontinued ASSESSMENT/PLAN: 1. Low sodium levels - ICD9: 276.1, ICD10: E87.1 (primary diagnosis) Repeat CMP to recheck sodium level, kidney function, and liver function. Likely need to decrease spirolactone to once daily. Edema is well controlled currently. May consider sodium supplement d/t family history if no resolution after changing diuretic regimen. - COMP METABOLIC PANEL 2. Hypothyroidism, unspecified type - ICD9: 244.9, ICD10: E03.9 - Instructed patient on importance of taking on an empty stomach either first thing in the morning or at bedtime. - check TSH, free T4, and T3 in 3 weeks - continue current dose of Synthroid 100 mcg daily, due to recently decreased to this dosage 1 weekago. - TSH BLD - T4 FREE/FREE THYROX - T3 BLD 3. Other iron deficiency anemia - ICD9: 280.8, ICD10: D50.8 Recheck labs. - CBC + DIFF 4. Dizziness - ICD9: 780.4, ICD10: R42 Likely all associated to thyroid abnormalities and low sodium, if no resolution will further investigate with follow-up in 1 month. Discussed eating throughout day as we discussed at prior appointment as well. RTO in 1 month, sooner if needed, to reassess labs and dizziness. Prescription instructions reviewed with patient as applicable. Potential red flag symptoms discussed with the patient. Reviewed appropriate action plan to take if red flag symptoms occur. Patient agreeable to treatment plan. Donita Gonzales APRN.[employer] [address] [place] [address] documented in this encounter[facility]10-[facility] Miscellaneous Notes* Telephone Encounter - Silvana Rousseau - 06/10/2023 1:09 PM EDT Pt informed, verbalized understanding. Silvana Rousseau * Telephone Encounter - Sreekanth Cortez DO - 06/10/2023 10:10 AM EDT Agree with continuing 100 mcg once a day for levothyroxine Please inform Sreekanth Cortez DO * Telephone Encounter - Silvana Rousseau - 06/10/2023 8:32 AM EDT Pt reports for the last week she has been taking the 100mcg once daily for about a week. Was axcoob244mrs one day per week prior. Silvana Rousseau MA * Telephone Encounter - Sreekanth Cortez DO - 06/09/2023 10:38 PM EDT Please call and clarify what dose of thyroid medication she is currently taking? Her TSH is still too low and free t4 is still too high. Her dose needs to be decreased. Sreekanth Cortez DO documented in this encounterK[facility]09-[facility] History of Present illness Narrative* Donita Estes APRN.[employer] - 05/17/2023 3:00 PM EDT Chief Complaint Patient presents with: Follow Up: To make sure bladder infection is gone HPI Casandra Henry is a 83 year old female who presents here today for Above Complaints. Casandra is an established patient of Dr. Diego DOYLE and myself. Concerns today.. Saw Dr. Cortez on 03/31 d/t dysuria. UA + for ifeoma esterase. Pt given keflex regimen RX. Urine culture came back negative. Pt stopped antibiotic regimen Pt in office today.. Pt reports intermittent dizziness and shakiness x 3 months. Pt reports she had these symptoms in February that sent her to ER -- entire cardiac work-up was negative and staff contributed symptoms to dx of UTI. Was on Keflex and symptoms seemed to improve short term. Now they return off and on and pt wondering if it is UTI again. Pt denies any dysuria, hematuria, urinary urgency or frequency. Pt reports feeling mildly dizzy and shaky off and on throughout the day. Symptoms last a few minutes and then subside. Pt does feel like if she eats she feels better. Otherwise, pt is unsure how to further describe this sensation. Checking BP at home and remains stable around 120s/70s. Denies any SOB, CP, palpitations, or pain. Last 14 Encounter BP Readings: Date: BP: 05/17/2023 130/60 03/31/2023 134/70 03/15/2023 138/80 03/10/2023 133/71[average with bp machine[ 12/25/2022 150/80 08/31/2022 138/94 07/08/2022 130/82 04/06/2022 122/84 02/25/2022 136/60 01/24/2021 134/74 07/26/2020 150/80 01/24/2020 120/70 06/28/2019 126/70 03/28/2019 122/82 Past medical history, appointments, medications, allergies reviewed. Previous Medical History PAST MEDICAL HISTORY Diagnosis Date Acid reflux Hiatal hernia Hypertension Hypothyroid Previous Surgical History PAST SURGICAL HISTORY Procedure Laterality Date CARPAL TUNNEL 2000 bilateral COLONOSCOPY FLX DX W/COLLJ SPEC WHEN PFRMD 12/05/2013 Colonoscopy done in [facility] FLX W/REMOVAL LESION BY HOT BX FORCEPS 02/19/[address] Catarino Salas LAPAROSCOPIC DUODENAL BIOPSY 02/13/2020 Catarino Salas MD; duodenal biopsy, gastric antrum biopsy, irregular GE junction bopsy, proximal gastric body soft tissue prominence biopsy all performed Family History FAMILY HISTORY Problem Relation Age of Onset Stroke Mother 84 Hypertension Mother Heart Mother Cancer Father Lung 75 Cancer Paternal Grandmother Hypertension Sister Hypertension Sister Diabetes Sister Diabetes Sister Kidney Disease Brother 74 Patient Allergies ALLERGIES No Known Allergies Current Medications Current Outpatient Medications on File Prior to Visit Medication Sig levothyroxine (SYNTHROID) 100 mcg tablet 1 PO daily x 6 days a week levothyroxine (LEVOXYL) 125 mcg tablet Take on empty stomach. For thyroid. 1 PO daily x 1 days a week spironolactone (ALDACTONE) 25 mg tablet Take 1 tablet by mouth twice daily. losartan (COZAAR) 50 mg tablet take 1 tablet by mouth twice a day metoprolol tartrate, short acting, (LOPRESSOR) 25 mg tablet take 1 tablet by mouth twice a day TENS unit and electrodes cmpk 1 Units as directed. Dx: chronic low back pain, lumbar radiculopathy omeprazole (PRILOSEC) 20 mg capsule Take 1 capsule by mouth every 48 hours. 1/2 hr before meal. multivit with iron,minerals (MULTIVITAMIN AND MINERALS ORAL) Take by mouth. ferrous sulfate 325 mg (65 mg iron) tablet Take 1 tablet by mouth twice daily with meals. Current Facility-Administered Medications on File Prior to Visit Medication perflutren lipid microspheres 1.3 mL in NaCl (PF) 0.9% 10 mL injection (DEFINITY) sodium chloride 0.9 % (flush) 10 mL (BD POSIFLUSH) Social History Social History Tobacco Use Smoking status: Never Smokeless tobacco: Never Substance Use Topics Alcohol use: No Drug use: No REVIEW OF SYSTEMS: as above Reviewed relevant PMHx, PSHx, Social Hx, current medications and allergies. Review of Symptoms REVIEW OF SYSTEMS See HPI. EXAM: BP 130/60 (BP Site: Left Arm, BP Position: Sitting, BP Cuff Size: Regular Adult) Pulse 100 Resp16 Wt 63.5 kg (140 lb) BMI 25.76 kg/m General Appearance: Well appearing, alert, in no acute distress, well-hydrated, well nourished.. Skin: Skin color, texture, turgor normal, no suspicious rashes or lesions. Head: Normocephalic, no masses, lesions, tenderness or abnormalities. Lungs: Lungs clear to auscultation. No wheezing, rhonchi, rales.. Heart: RRR without murmur, gallop, or rubs. No ectopy. Abdomen: Normal abdominal exam, Abdomen soft, non-tender. Bowel sounds normal. No masses, organomegaly, Negative CVA tenderness. Health Maintenance List DTaP,Tdap,Td Vaccine(1 - Tdap) Never done Covid-19 Vaccine(4 - Moderna series) due on 09/30/2021 Advance Directive Discussion Never done Influenza Vaccine(1) due on 04/23/2023 Diabetes Screening due on 03/10/2026 Bone Density Screening Completed Depression Assessment Completed Shingrix Vaccine Completed Pneumococcal Vaccine: 65+ Completed Colorectal Cancer Screening Discontinued ASSESSMENT/PLAN: 1. Dizziness - ICD9: 780.4, ICD10: R42 (primary diagnosis) UA dip + for small amount of leuk estrase. Pt declined antibiotic unless culture comes back positive due to not wanting unnecessary exposure to more antibiotics. Sent urine for culture. Cardiac work-up negative in ER and in July. Possible low blood sugar -- discussed eating small frequent meals throughout the day every 2-3 hours and keeping healthy snacks on hand. Check fasting glucose with CMP and insulin assay. Check thyroid labs due to levothyroxine usage. - UA DIP, URINE (POC) - URINE CULTURE - COMP METABOLIC PANEL - CBC + DIFF - INSULIN ASSAY BLOOD - TSH BLD - T3 BLD - T4 FREE/FREE THYROX 2. Hypothyroidism, unspecified type - ICD9: 244.9, ICD10: E03.9 - Instructed patient on importance of taking on an empty stomach either first thing in the morning or at bedtime. - check TSH, free T4, and T3 today - continue current dose of Synthroid - TSH BLD - T3 BLD - T4 FREE/FREE THYROX 3. Essential hypertension - ICD9: 401.9, ICD10: I10 - Controlled - Home blood pressure readings controlled - Continue current medications - Recommend home blood pressure monitoring, to bring results to next visit - Encouraged sodium restriction, DASH or Mediterranean diet - Recommend regular aerobic exercise - COMP METABOLIC PANEL - CBC + DIFF RTO in 1 months, sooner if needed. Prescription instructions reviewed with patient as applicable. Potential red flag symptoms discussed with the patient. Reviewed appropriate action plan to take if red flag symptoms occur. Patient agreeable to treatment plan. Donita Gonzales APRN.SATISH [address] [place] [address] documented in this encounterK[facility] History of Present illness Narrative* Sreekanth Cortez, - 03/31/2023 8:39 PM EDT CC: Casandra Henry is a 83 year old female who presents to the office for follow up HPI: She was recently seen in the EMERGENCY DEPARTMENT due to elevated BLOOD PRESSURE in the 160s/90s and not feeling well. She had work up at [facility] in the EMERGENCY DEPARTMENT including cardiac and labs and UA. UA did show concerns for UTI started, she was sent home with rx for Keflex for 3 days which she took and tolerated well. Her dose of her spironolactone was increased to 25 mg twice a day which she has been taking. She is also taking losartan 50 mg twice a day and lopressor 25 mg twice a day. Over the last 4-5 days her blood pressure has been much better in the 110-120/60-70s range and heart rate in the 60-70s range. She feels still some bladder symptoms of urgency and frequency Hypothyroidism, currently taking levothyroxine 125 mcg 2 days a week and 100 mcg 5 days a week. TSH Date Value Ref Range Status 03/10/2023 0.053 (L) 0.270 - 4.200 mIU/L Final Free T4 Date Value Ref Range Status 03/10/2023 2.2 (H) 0.9 - 1.7 ng/dL Final Free T3 2.5 03/10/2023 T3 94 02/25/2022 PAST MEDICAL HISTORY Diagnosis Date Acid reflux Hiatal hernia Hypertension Hypothyroid PAST SURGICAL HISTORY Procedure Laterality Date CARPAL TUNNEL 2000 bilateral COLONOSCOPY FLX DX W/COLLJ SPEC WHEN PFRMD 12/05/2013 Colonoscopy done in [facility] FLX W/REMOVAL LESION BY HOT BX FORCEPS 02/19/[address] Catarino Salas LAPAROSCOPIC DUODENAL BIOPSY 02/13/2020 Catarino Salas MD; duodenal biopsy, gastric antrum biopsy, irregular GE junction bopsy, proximal gastric body soft tissue prominence biopsy all performed Current Outpatient Medications Medication Sig spironolactone (ALDACTONE) 25 mg tablet Take 1 tablet by mouth twice daily. losartan (COZAAR) 50 mg tablet take 1 tablet by mouth twice a day metoprolol tartrate, short acting, (LOPRESSOR) 25 mg tablet take 1 tablet by mouth twice a day TENS unit and electrodes cmpk 1 Units as directed. Dx: chronic low back pain, lumbar radiculopathy multivit with iron,minerals (MULTIVITAMIN AND MINERALS ORAL) Take by mouth. ferrous sulfate 325 mg (65 mg iron) tablet Take 1 tablet by mouth twice daily with meals. cephALEXin (KEFLEX) 500 mg capsule Take 1 capsule by mouth four times daily for 5 days. levothyroxine (SYNTHROID) 100 mcg tablet 1 PO daily x 6 days a week levothyroxine (LEVOXYL) 125 mcg tablet Take on empty stomach. For thyroid. 1 PO daily x 1 days a week omeprazole (PRILOSEC) 20 mg capsule Take 1 capsule by mouth every 48 hours. 1/2 hr before meal. Current Facility-Administered Medications Medication Dose Route Frequency perflutren lipid microspheres 1.3 mL in NaCl (PF) 0.9% 10 mL injection (DEFINITY) INTRAVENOUS DIRECTED PRN sodium chloride 0.9 % (flush) 10 mL (BD POSIFLUSH) 10 mL INTRAVENOUS DIRECTED PRN ALLERGIES No Known Allergies Social History Tobacco Use Smoking status: Never Smokeless tobacco: Never Substance Use Topics Alcohol use: No Drug use: No ROS: See HPI. PE: BP 134/70 Pulse 80 Temp (Src) 97.5 (Right Tympanic) Resp 16 Wt 140 lb (63.5kg) Gen: A&OX3, NAD, non-toxic appearing HEENT: PERRLA, EOMs intact b/l, nares without drainage, pharynx without erythema, exudate, lesions,or drainage. Uvula midline. Neck: No LAD, no thyromegaly, no meningismus. CV: RRR, no murmur Lungs: CTA b/l, no wheezing Skin: No rashes, lesions, or wounds on exposed skin. No flank pain No edema, normal pulses No suprapubic pain ASSESSMENT/PLAN: 1. Essential hypertension - ICD9: 401.9, ICD10: I10 (primary diagnosis) - Home blood pressure readings controlled - Improving control - Continue current medications - Recommend home blood pressure monitoring, to bring results to next visit - Encouraged sodium restriction, DASH or Mediterranean diet - Recommend regular aerobic exercise 2. Dysuria - ICD9: 788.1, ICD10: R30.0 acute - UA positive for ifeoma esterase - Patient education for prevention given - UA DIP, URINE (POC) - URINE CULTURE - CEPHALEXIN 500 MG CAPSULE 3. Hypothyroidism, unspecified type - ICD9: 244.9, ICD10: E03.9 - Instructed patient on importance of taking on an empty stomach either first thing in the morning or at bedtime. Stable Decrease dose to levothyroxine 125 mcg 1 day a week and 100 mcg 6 days a week - LEVOTHYROXINE 100 MCG TABLET - LEVOTHYROXINE 125 MCG TABLET Sreekanth Cortez DO Return if no improvement. Follow up with Sreekanth Cortez DO. To ER if develops chest pain, shortness of breath Discussed risks, benefits, alternatives, and potential side effects of medications. Patient/Guardian expressed understanding and agreed with the plan. See patient instructions. Sreekanth Cortez DO [address] [place] [address] documented in this encounterK[facility]08-09-2023 Instructions* Patient Instructions* Sreekanth Cortez DO - 03/31/2023 6:18 PM EDT Blood pressure goal 100-130s / 60-80s Pulse rate goal 60-80s documented in this encounterK[facility]07-24-2023 Miscellaneous Notes* Telephone Encounter - Emily Cates MA - 03/15/2023 10:04 AM EDT Prescription was already sent to the pharmacy this date. Emily Cates MA documented in this encounterKet[facility]07-24-[facility] History of Present illness Narrative* Sreekanth Cortez DO - 03/15/2023 7:54 AM EDT CC: Casandra Henry is a 83 year old female who presents to the office for follow up HPI: Hypothyroidism, taking levothyroxine dosing as prescribed, she has been struggling somewhat with her energy recently TSH Date Value Ref Range Status 03/10/2023 0.053 (L) 0.270 - 4.200 mIU/L Final Free T4 Date Value Ref Range Status 03/10/2023 2.2 (H) 0.9 - 1.7 ng/dL Final Free T3 2.5 03/10/2023 T3 94 02/25/2022 HTN, recently BLOOD PRESSURE has been elevated over the last 1-2 weeks, she was seen in office lastweek for feeling of being LH/dizziness. She denies any palpitations or dyspnea or chest pressure/pain. Only occasional mild headache, no blurring of vision. She was told needs bp adjustment. She has been taking spironolactone 25 mg AM, Metoprolol 25 mg bid and losartan 50 mg twice a day Glucose (mg/dL) Date Value 03/10/2023 102 08/20/2021 85 Potassium (mmol/L) Date Value 03/10/2023 4.9 08/20/2021 4.6 Sodium (mmol/L) Date Value 03/10/2023 133 08/20/2021 133 Chloride (mmol/L) Date Value 03/10/2023 98 08/20/2021 99 CO2 (mmol/L) Date Value 03/10/2023 22 08/20/2021 22 Creatinine (mg/dL) Date Value 03/10/2023 0.92 08/20/2021 0.90 BUN (mg/dL) Date Value 03/10/2023 9 08/20/2021 15 Anion Gap (mmol/L) Date Value 03/10/2023 13 08/20/2021 12 Calcium (mg/dL) Date Value 08/20/2021 9.7 Calcium, Total (mg/dL) Date Value 03/10/2023 9.6 Protein, Total (g/dL) Date Value 03/10/2023 6.9 01/13/2021 6.7 Albumin (g/dL) Date Value 03/10/2023 4.1 01/13/2021 4.4 Bilirubin, Total (mg/dL) Date Value 03/10/2023 1.4 01/13/2021 1.8 Alkaline Phosphatase (U/L) Date Value 03/10/2023 117 01/13/2021 111 AST (U/L) Date Value 03/10/2023 18 01/13/2021 21 ALT (U/L) Date Value 03/10/2023 19 01/13/2021 16 Low back pain, hx of lumbar radiculopathy, stable, no recent issues since changing her bed and chairs Hx of iron deficiency anemia, stable now. No bleeding Hemoglobin (g/dL) Date Value 03/10/2023 12.9 01/13/2021 13.9 Hematocrit (%) Date Value 03/10/2023 37.9 01/13/2021 41.3 WBC (k/uL) Date Value 03/10/2023 9.15 01/13/2021 7.43 PAST MEDICAL HISTORY Diagnosis Date Acid reflux Hiatal hernia Hypertension Hypothyroid PAST SURGICAL HISTORY Procedure Laterality Date CARPAL TUNNEL 2001 bilateral COLONOSCOPY FLX DX W/COLLJ SPEC WHEN PFRMD 12/05/2013 Colonoscopy done in [facility] FLX W/REMOVAL LESION BY HOT BX FORCEPS 02/19/[address] Catarino Salas LAPAROSCOPIC DUODENAL BIOPSY 02/13/2020 Catarino Salas MD; duodenal biopsy, gastric antrum biopsy, irregular GE junction bopsy, proximal gastric body soft tissue prominence biopsy all performed Social History: Social History Tobacco Use Smoking status: Never Smokeless tobacco: Never Substance Use Topics Alcohol use: No Drug use: No FAMILY HISTORY Problem Relation Age of Onset Stroke Mother 84 Hypertension Mother Heart Mother Cancer Father Lung 75 Cancer Paternal Grandmother Hypertension Sister Hypertension Sister Diabetes Sister Diabetes Sister Kidney Disease Brother 74 Current Outpatient prescriptions: spironolactone (ALDACTONE) 25 mg tablet^take 1 tablet by mouth once daily^Disp: 90 tablet^Rfl: 1 losartan (COZAAR) 50 mg tablet^take 1 tablet by mouth twice a day^Disp: 180 tablet^Rfl: 3 metoprolol tartrate, short acting, (LOPRESSOR) 25 mg tablet^take 1 tablet by mouth twice a day^Disp: 180 tablet^Rfl: 1 TENS unit and electrodes cmpk^1 Units as directed. Dx: chronic low back pain, lumbar radiculopathy^Disp: 1 Each^Rfl: 0 multivit with iron,minerals (MULTIVITAMIN AND MINERALS ORAL)^Take by mouth.^Disp: ^Rfl: ferrous sulfate 325 mg (65 mg iron) tablet^Take 1 tablet by mouth twice daily with meals.^Disp: ^Rfl: levothyroxine (LEVOXYL) 125 mcg tablet^Take on empty stomach. For thyroid. 1 PO daily x 1 day a week^Disp: 26 tablet^Rfl: 5 levothyroxine (SYNTHROID) 100 mcg tablet^1 PO daily x 6 days a week^Disp: 66 tablet^Rfl: 5 omeprazole (PRILOSEC) 20 mg capsule^Take 1 capsule by mouth every 48 hours. 1/2 hr before meal.^Disp: 45 capsule^Rfl: 1 Allergies: ALLERGIES No Known Allergies ROS: See HPI PE: 03/15/23 0745 BP: 138/80 Pulse: 60 Resp: 16 Temp: 36.2 C (97.1 F) TempSrc: Left Tympanic Weight: 63 kg (139 lb) Height: 157 cm (5' 1.81) Gen: A&O, NAD, non-toxic appearing, Pleasant, cooperative HEENT: NT/AC, PERRLA, EOMs intact b/l, nares clear and patent b/l, pharynx without erythema, exudate or lesions, MMM. Uvula midline. Neck: supple, No cervical LAD, no thyromegaly, no carotid bruits CV: RRR, normal S1 and S2, no murmurs, no gallops, no rubs, Pulses 2+ and symmetric in UE and LE b/l Lungs: normal respiratory effort, CTA b/l, no wheezing or rhonchi or rales Abd: soft, NT, ND, +BS, no hepatosplenomegaly MS: FROM all 4 extremities Neuro: CN II-XII intact b/l Skin: warm, dry, intact, No rashes or lesions on exposed skin. No edema, normal pulses ASSESSMENT/PLAN: 1. Essential hypertension - ICD9: 401.9, ICD10: I10 (primary diagnosis) - Uncontrolled - Worsening control - Increase spironolactone- if remains high when calling office with readings in 2 weeks then will adjust up metoprolol as next steps. - Recommend home blood pressure monitoring, to bring results to next visit - Encouraged sodium restriction, DASH or Mediterranean diet - Recommend regular aerobic exercise - SPIRONOLACTONE 25 MG TABLET 2. Hypothyroidism, unspecified type - ICD9: 244.9, ICD10: E03.9 - Instructed patient on importance of taking on an empty stomach either first thing in the morning or at bedtime. Stable - Behavioral intervention and - Pharmacological intervention - LEVOTHYROXINE 125 MCG TABLET - LEVOTHYROXINE 100 MCG TABLET - TSH BLD - T4 FREE/FREE THYROX - T3 FREE BLD - LEVOTHYROXINE 125 MCG TABLET - LEVOTHYROXINE 100 MCG TABLET 3. Bilateral leg edema - ICD9: 782.3, ICD10: R60.0 - see above, edema controlled. - SPIRONOLACTONE 25 MG TABLET 4. Lumbar radiculopathy - ICD9: 724.4, ICD10: M54.16 Chronic low back pain - Ice for localized tenderness stable - Warm moist heat for 20 min three times a day 5. Other iron deficiency anemia - ICD9: 280.8, ICD10: D50.8 - stable 6. Dyslipidemia - ICD9: 272.4, ICD10: E78.5 - Controlled - Counseled on healthy diet and regular exercise Sreekanth Cortez DO To ER if develops chest pain, shortness of breath, or severe worsening of symptoms. Discussed risks, benefits, alternatives, and potential side effects of medications. Patient expressed understanding and agreed with the plan[place] [address] [place] [address] documented in this encounterK[facility]07-20-2023 Miscellaneous Notes* Telephone Encounter - Lorrie Feliciano LPN - 03/11/2023 10:20 AM EDT Patient has been identified by name and date of : Yes Patient phones for refill(s): Requested Prescriptions Pending Prescriptions Disp Refills spironolactone (ALDACTONE) 25 mg tablet [Pharmacy Med Name: SPIRONOLACTONE 25 MG TABLET] 90 tablet 1 Sig: take 1 tablet by mouth once daily Date of last office visit in primary care: 03/10/2023 Next appointment scheduled 03/15/2023 Please advise. Thank you. Lorrie Feliciano LPN documented in this encounterK[facility]07-19-[facility] History of Present illness Narrative* Marilyn Gutierrez PA-C - 03/10/2023 10:02 AM EDT Chief Complaint Patient presents with: Blood Pressure: Blood pressure has been elevated at home HPI Casandra Henry is a 82 year old female who presents here today for Above Complaints.. Patient states on Wednesday she woke up to go to the bathroom and started to feel lightheaded while inthe bathroom so tried to make it back to her bed but passed out on the way. Her heard her fall and got up to check on her and she slowly became responsive and denied going to ER. said they didn't check her BP that day but patient does feel like it was checked. Yesterday her BP was 180/88 with pulse in low 100s. Today her bp was 151/81 with pulse in 70s. Patient denies chest pain or shortness of breath. Has been having some headache symptoms recently. TV seems a little more blurry but denies spots in her vision. She is still having some lightheaded symptoms.. Last 6 Encounter BP Readings: Date: BP: 03/10/2023 150/76 12/25/2022 150/80 08/31/2022 138/94 07/08/2022 130/82 04/06/2022 122/84 02/25/2022 136/60 Past medical history, appointments, medications, allergies reviewed. Previous Medical History PAST MEDICAL HISTORY Diagnosis Date Acid reflux Hiatal hernia Hypertension Hypothyroid Previous Surgical History PAST SURGICAL HISTORY Procedure Laterality Date CARPAL TUNNEL 2000 bilateral COLONOSCOPY FLX DX W/COLLJ SPEC WHEN PFRMD 12/05/2013 Colonoscopy done in [facility] FLX W/REMOVAL LESION BY HOT BX FORCEPS 02/19/[address] Catarino Salas LAPAROSCOPIC DUODENAL BIOPSY 02/13/2020 Catarino Salas MD; duodenal biopsy, gastric antrum biopsy, irregular GE junction bopsy, proximal gastric body soft tissue prominence biopsy all performed Family History FAMILY HISTORY Problem Relation Age of Onset Stroke Mother 84 Hypertension Mother Heart Mother Cancer Father Lung 75 Cancer Paternal Grandmother Hypertension Sister Hypertension Sister Diabetes Sister Diabetes Sister Kidney Disease Brother 74 Patient Allergies ALLERGIES No Known Allergies Current Medications Current Outpatient Medications on File Prior to Visit Medication Sig losartan (COZAAR) 50 mg tablet take 1 tablet by mouth twice a day metoprolol tartrate, short acting, (LOPRESSOR) 25 mg tablet take 1 tablet by mouth twice a day TENS unit and electrodes cmpk 1 Units as directed. Dx: chronic low back pain, lumbar radiculopathy spironolactone (ALDACTONE) 25 mg tablet take 1 tablet by mouth once daily omeprazole (PRILOSEC) 20 mg capsule Take 1 capsule by mouth every 48 hours. 1/2 hr before meal. levothyroxine (SYNTHROID) 100 mcg tablet 1 PO daily x 6 days a week levothyroxine (LEVOXYL) 125 mcg tablet Take on empty stomach. For thyroid. 1 PO daily x 1 day a week multivit with iron,minerals (MULTIVITAMIN AND MINERALS ORAL) Take by mouth. ferrous sulfate 325 mg (65 mg iron) tablet Take 1 tablet by mouth twice daily with meals. Current Facility-Administered Medications on File Prior to Visit Medication perflutren lipid microspheres 1.3 mL in NaCl (PF) 0.9% 10 mL injection (DEFINITY) sodium chloride 0.9 % (flush) 10 mL (BD POSIFLUSH) Social History Social History Tobacco Use Smoking status: Never Smokeless tobacco: Never Substance Use Topics Alcohol use: No Drug use: No Review of Symptoms REVIEW OF SYSTEMS See hpi EXAM: BP 150/76 (BP Site: Left Arm, BP Position: Sitting, BP Cuff Size: Regular Adult) Pulse 71 Temp 37 C (98.6 F) Resp 16 Wt 62.6 kg (138 lb) SpO2 96% BMI 26.74 kg/m BP 133/71 (BP Site: Left Arm, BP Position: Sitting, BP Cuff Size: Regular Adult) Pulse 66 Temp 37 C (98.6 F) Resp 16 Wt 62.6 kg (138 lb) SpO2 96% BMI 26.74 kg/m General Appearance: Well appearing, alert, in no acute distress, well-hydrated, well nourished.. Head: Normocephalic, no masses, lesions, tenderness or abnormalities. Eyes: Anicteric sclera. Pupils are equally round and reactive to light. Extraocular movements are intact. . Ears: External ears normal, canals clear. Nose/Sinuses: Nares normal, septum midline, mucosa normal, no drainage or sinus tenderness. Oropharynx: Lips, mucosa, and tongue normal, teeth and gums normal, oropharynx normal. Neck: Supple, no adenopathy; thyroid symmetric, normal size, no bruits. Lungs: Lungs clear to auscultation. No wheezing, rhonchi, rales.. Heart: RRR without murmur, gallop, or rubs. No ectopy. Extremities: No deformities, edema, skin discoloration, clubbing or cyanosis. Good capillary refill. . Peripheral Pulses: Normal. Health Maintenance List DTAP,TDAP,TD(1 - Tdap) Never done COVID-19 VACCINE(4 - Moderna series) due on 09/30/2021 BP CONTROLLED (<130/80) due on 01/24/2022 ADVANCE DIRECTIVE DISCUSSION Never done INFLUENZA(1) due on 04/23/2023 SERUM CREATININE due on 11/19/2023 ANNUAL PCP TEAM CHRONIC DISEASE VISIT due on 12/26/2023 DIABETES SCREEN due on 11/18/2025 BONE DENSITY Completed DEPRESSION ASSESSMENT Completed SHINGRIX VACCINE Completed PNEUMOCOCCAL: 65+ Completed COLORECTAL CANCER SCREENING Discontinued Data reviewed ECHO 07/23/2022 Impression CONCLUSIONS: - Exam indication: Palpitations - The left ventricle is normal in size. Left ventricular systolic function is normal. EF = 56 5% (2D biplane) Grade I left ventricular diastolic dysfunction. - The right ventricle is normal in size. Right ventricular systolic function is normal. - There are no significant valvular abnormalities. - The patient has not had a prior [facility] echocardiographic exam for comparison. US carotid 07/23/22 IMPRESSION Compared to prior study of 03/28/2018, no significant change. RIGHT SIDE Internal carotid artery: 20-39% stenosis. Tortuous vessel at mid . Vertebral artery: Patent and antegrade flow noted. LEFT SIDE Internal carotid artery: 20-39% stenosis. Tortuous vessel from mid to distal . Vertebral artery: Patent and antegrade flow noted. ASSESSMENT/PLAN: 1. Essential hypertension - ICD9: 401.9, ICD10: I10 Improved on recheck today. Discussed patient's recent carotid US and echo. Unlikely the cause of her syncopal episode. Patient had labs done today Exam benign today. Patient will monitor over the next few days and discuss with PCP on Wednesday at her physical. Discussed possible red flags and when to seek medical attention. Marilyn Gutierrez PA-C documented in this encounterKet[facility]07-19-2023 Miscellaneous Notes* Telephone Encounter - Roxanne Felix RN - 03/10/2023 8:47 AM EDT Patient call in for high blood pressure, dizziness, and headache. Patient currently does not have any symptoms. Patient had episode of passing out Wednesday morning, blood pressure was 182/88 107. Patient states that she has had a headache off and on and some weakness. Patient currently is denying allsymptoms current BP 151/81 78. Nurse Triage assessment completed with protocol recommending for disposition of See PCP in 24 hours. Patient scheduled appointment with Marilyn this morning. Care advice reviewed with patient, patient stated understanding. Patient advised to contact office or seek evaluation in urgent care or ER if symptoms persist or gets worse. Reason for Disposition Systolic BP >= 180 OR Diastolic >= 110 Answer Assessment - Initial Assessment Questions 1. BLOOD PRESSURE: 151/81 78 2. ONSET: This Morning 3. HOW: Automatic Home BP monitor 4. HISTORY: Yes on blood pressure medication. 5. MEDICATIONS: Metoprolol, losartan 6. OTHER SYMPTOMS: Headache, blurred vision, weakness. Answer Assessment - Initial Assessment Questions 1. DESCRIPTION: Patient states that she gets a strange feeling where she feels like she needs to sit down. 2. LIGHTHEADED: Lightheaded when up and around too much 3. VERTIGO: Denies 4. SEVERITY: Moderate, feels unsteady when walking. Passed out Wednesday morning after using restroom, blood pressure 182/88 107 5. ONSET: Has been not feeling well since Wednesday 6. AGGRAVATING FACTORS: Denies aggravating factors. 7. HEART RATE: Heart rate has been running in 70- low 100s 8. CAUSE: Thinks she is dehydrated. 9. RECURRENT SYMPTOM: Yes she felt this way before, patient had blood pressure medication which had helped. 10. OTHER SYMPTOMS: Blood pressure has been elevated; This morning 151/81 P 78; Wednesday morning after she had passed outblood pressure was 182/88 107. Has had a slight headache for a number of days which is not normal. Protocols used: Dizziness - [id number], Blood Pressure - [id number] documented in this encounterKettering [facility]07-18-2023 Miscellaneous Notes* Telephone Encounter - Gisselle Bush LPN - 03/09/2023 12:43 PM EDT Patient has been identified by name and date of : Patient phones for refill(s): Requested Prescriptions Pending Prescriptions Disp Refills losartan (COZAAR) 50 mg tablet [Pharmacy Med Name: LOSARTAN POTASSIUM 50 MG TAB] 180 tablet 3 Sig: take 1 tablet by mouth twice a day metoprolol tartrate, short acting, (LOPRESSOR) 25 mg tablet [Pharmacy Med Name: METOPROLOL [id number] MG TAB] 180 tablet 1 Sig: take 1 tablet by mouth twice a day Date of last office visit in primary care: 08/31/22 Last 2 Encounter Wt Readings: Date: Wt: 12/25/2022 64.9 kg (143 lb) 08/31/2022 65.3 kg (144 lb) Previous labs/tests for medication: Not applicable Please advise. Thank you. Gisselle Bush LPN documented in this encounterKettering [facility]05-11-2023 Miscellaneous Notes* Telephone Encounter - Esthela Levi MA - 12/31/2022 9:45 AM EDT Patient notified of results, verbalizes understanding of instructions. Patient is going to try PT outside of [facility]. Will be in contact with PCP office. Esthela Levi MA * Telephone Encounter - Sreekanth Cortez DO - 12/31/2022 9:30 AM EDT Please inform patient that her xray of her lumbar spine shows RESULT: Diffuse osteopenia. Multilevel moderate to severe disc space narrowing (degenerative disc disease). Most pronounced at L5-S1. Grade 1 spondylolisthesis of L4 on L5. Degenerative change and osteoarthritis involving the posterior elements from L3 through S1. Mild Dextroscoliosis (right spine curve). Degenerative changes involving the SI joints and hips bilaterally. Would recommend PHYSICAL THERAPY and consideration of spine injections if doesn't improve Sreekanth Cortez DO [facility] History of Present illness Narrative* Adamaris Chavez, RT(R) - 12/25/2022 2:40 PM EDT Radiology Service Progress Note PATIENT NAME: Casandra Henry DATE OF SERVICE: December 25, 2022 TIME: 2:33 PM PATIENT IDENTITY VERIFICATION COMPLETED USING TWO (2) IDENTIFIERS: Name and Date of confirmedby patient verbally. FALL SCREENING: Has the patient had 2 falls in the last year or 1 fall with injury or currently using an Ambulatory Assistive Device (Walker, Cane, Wheelchair, Crutches, etc.)? No PATIENT GENDER DATA: Female. status: : No status: NO. PATIENT RELEVANT IMPLANT DATA REVIEWED: Yes RADIOLOGY DEPARTMENT: General X-ray: Exam(s) Completed: Spine X-Ray(s): Lumbar AP / LAT / L5-S1 PERIPHERAL IV DATA: Not applicable SIGNED BY: RT Sanam(R) December 25, 2022 2:33 PM documented in this encounterK[facility]05-[facility] History of Present illness Narrative* Sreekanth Cortez DO - 12/25/2022 1:55 PM EDT CC: Casandra Henry is a 82 year old female who presents to the office for leg symptoms HPI: Patient is present with her in the office today. She has been struggling with recent Right leg tingling and falling asleep feeling. States that ifsitting too long at a meeting for 1-2 hours, then her right leg feels like it is going numb and like it is going to sleep and not able to stand any longer. Also with low back pain symptoms, worse also in the morning than the evening. Has tried adding a pillow top to her mattress without benefit. Her has tried to rub/massage her back and thigh on right without benefit. She has tried NSAID, tylenol and aspirin without relief. No obvious bowel or bladder changes. No falls, no known injuries. PAST MEDICAL HISTORY Diagnosis Date Acid reflux Hiatal hernia Hypertension Hypothyroid PAST SURGICAL HISTORY Procedure Laterality Date CARPAL TUNNEL 2001 bilateral COLONOSCOPY FLX DX W/COLLJ SPEC WHEN PFRMD 12/05/2013 Colonoscopy done in [facility] FLX W/REMOVAL LESION BY HOT BX FORCEPS 02/19/[address] Catarino Salas LAPAROSCOPIC DUODENAL BIOPSY 02/13/2020 Catarino Salas MD; duodenal biopsy, gastric antrum biopsy, irregular GE junction bopsy, proximal gastric body soft tissue prominence biopsy all performed Current Outpatient Medications Medication Sig spironolactone (ALDACTONE) 25 mg tablet take 1 tablet by mouth once daily metoprolol tartrate, short acting, (LOPRESSOR) 25 mg tablet take 1 tablet by mouth twice a day omeprazole (PRILOSEC) 20 mg capsule Take 1 capsule by mouth every 48 hours. 1/2 hr before meal. levothyroxine (SYNTHROID) 100 mcg tablet 1 PO daily x 6 days a week levothyroxine (LEVOXYL) 125 mcg tablet Take on empty stomach. For thyroid. 1 PO daily x 1 day a week losartan (COZAAR) 50 mg tablet Take 1 tablet by mouth twice daily. multivit with iron,minerals (MULTIVITAMIN AND MINERALS ORAL) Take by mouth. ferrous sulfate 325 mg (65 mg iron) tablet Take 1 tablet by mouth twice daily with meals. TENS unit and electrodes cmpk 1 Units as directed. Dx: chronic low back pain, lumbar radiculopathy Current Facility-Administered Medications Medication Dose Route Frequency perflutren lipid microspheres 1.3 mL in NaCl (PF) 0.9% 10 mL injection (DEFINITY) INTRAVENOUS DIRECTED PRN sodium chloride 0.9 % (flush) 10 mL (BD POSIFLUSH) 10 mL INTRAVENOUS DIRECTED PRN ALLERGIES No Known Allergies Social History Tobacco Use Smoking status: Never Smokeless tobacco: Never Substance Use Topics Alcohol use: No Drug use: No ROS See HPI PE: BP 150/80 Pulse 72 Temp (Src) 97 (Left Tympanic) Resp 16 Wt 143 lb (64.9kg) Gen: A&OX3, NAD, non-toxic appearing HEENT: PERRLA, EOMs intact b/l, nares without drainage, pharynx without erythema, exudate, lesions,or drainage. Uvula midline. Neck: No LAD, no thyromegaly, no meningismus. CV: RRR, no murmur Lungs: CTA b/l, no wheezing Skin: No rashes, lesions, or wounds on exposed skin. Weakness right thigh and lower leg >left thigh and lower leg + SLR on right + TTP right SI joint and into right buttock, no spinal TTP Decreased patellar DTR at 1/4 on right leg. ASSESSMENT/PLAN: 1. Lumbar radiculopathy - ICD9: 724.4, ICD10: M54.16 (primary diagnosis) Sciatica - Ice for localized tenderness - Warm moist heat for 20 min three times a day - NSAIDS- see orders - PT consult - Xrays- see orders - XR LUMBAR GENERAL 3V AP/LAT/L5-S1 - TENS UNIT AND ELECTRODES COMBO PACK - CONSULT TO PHYSICAL THERAPY 2. Chronic midline low back pain with bilateral sciatica - ICD9: 724.2, 724.3, 338.29, ICD10: M54.41, M54.42, G89.29 See above, f/u in office after treatment and testing - XR LUMBAR GENERAL 3V AP/LAT/L5-S1 - TENS UNIT AND ELECTRODES COMBO PACK - CONSULT TO PHYSICAL THERAPY Sreekanth Cortez DO Return if no improvement. Follow up with Sreekanth Cortez DO. To ER if develops chest pain, shortness of breath Discussed risks, benefits, alternatives, and potential side effects of medications. Patient/Guardian expressed understanding and agreed with the plan. See patient instructions. Sreekanth Cortez DO [address] [place] [address] documented in this encounterK[facility]01-23-[facility]23 Miscellaneous Notes* Telephone Encounter - Anita Cain LPN - 09/14/2022 10:06 AM EST Patient phones requesting refills as follows: Requested Prescriptions Pending Prescriptions Disp Refills spironolactone (ALDACTONE) 25 mg tablet [Pharmacy Med Name: SPIRONOLACTONE 25 MG TABLET] 90 tablet 1 Sig: take 1 tablet by mouth once daily VIOLA-08/31/22 Labs-02/25/22 NOV-03/15/23 med filled 02/25/22 Please review and advise. Anita Cain LPN documented in this encounterK[facility]01-19-2023 Miscellaneous Notes* Telephone Encounter - Lorrie Feliciano LPN - 09/10/2022 10:30 AM EST Patient has been identified by name and date of : Yes Patient phones for refill(s): Requested Prescriptions Pending Prescriptions Disp Refills metoprolol tartrate, short acting, (LOPRESSOR) 25 mg tablet [Pharmacy Med Name: METOPROLOL [id number] MG TAB] 180 tablet 1 Sig: take 1 tablet by mouth twice a day Date of last office visit in primary care: 08/31/2022 Please advise. Thank you. Lorrie Feliciano LPN documented in this encounterK[facility]01-10-[facility]23 History of Present illness Narrative* Sreekanth Almaraz Cortez, DO - 09/01/2022 7:27 AM EST CC: Casandra Henry is a 82 year old female who presents to the office for follow up HPI: Essential hypertension, overall well controlled, taking medication as prescribed. No CP or dyspnea or dizziness or LH or edema. Essential hypertension, overall well controlled, taking medication losartan, metoprolol and spironolactone as prescribed. No CP or dyspnea or dizziness or LH or edema. Recently diagnosed and treated with anti viral for covid 19 infection in mid July. Feels her symptoms have resolved. was also sick at that time with covid infection, no residual cough or congestion Hypothyroidism, taking levothyroxine, no concerns. PAST MEDICAL HISTORY Diagnosis Date Acid reflux Hiatal hernia Hypertension Hypothyroid PAST SURGICAL HISTORY Procedure Laterality Date CARPAL TUNNEL 2001 bilateral COLONOSCOPY FLX DX W/COLLJ SPEC WHEN PFRMD 12/05/2013 Colonoscopy done in [facility] FLX W/REMOVAL LESION BY HOT BX FORCEPS 02/19/[address] Catarino Salas LAPAROSCOPIC DUODENAL BIOPSY 02/13/2020 Catarino Salas MD; duodenal biopsy, gastric antrum biopsy, irregular GE junction bopsy, proximal gastric body soft tissue prominence biopsy all performed Social History: Social History Tobacco Use Smoking status: Never Smokeless tobacco: Never Substance Use Topics Alcohol use: No Drug use: No FAMILY HISTORY Problem Relation Age of Onset Stroke Mother 84 Hypertension Mother Heart Mother Cancer Father Lung 75 Cancer Paternal Grandmother Hypertension Sister Hypertension Sister Diabetes Sister Diabetes Sister Kidney Disease Brother 74 Current Outpatient prescriptions: levothyroxine (SYNTHROID) 100 mcg tablet^1 PO daily x 6 days a week^Disp: 66 tablet^Rfl: 3 levothyroxine (LEVOXYL) 125 mcg tablet^Take on empty stomach. For thyroid. 1 PO daily x 1 day a week^Disp: 26 tablet^Rfl: 3 spironolactone (ALDACTONE) 25 mg tablet^Take 1 tablet by mouth once daily.^Disp: 90 tablet^Rfl: 1 metoprolol tartrate, short acting, (LOPRESSOR) 25 mg tablet^Take 1 tablet by mouth twice daily.^Disp: 180 tablet^Rfl: 1 losartan (COZAAR) 50 mg tablet^Take 1 tablet by mouth twice daily.^Disp: 180 tablet^Rfl: 3 multivit with iron,minerals (MULTIVITAMIN AND MINERALS ORAL)^Take by mouth.^Disp: ^Rfl: ferrous sulfate 325 mg (65 mg iron) tablet^Take 1 tablet by mouth twice daily with meals.^Disp: ^Rfl: omeprazole (PRILOSEC) 20 mg capsule^Take 1 capsule by mouth every 48 hours. 1/2 hr before meal.^Disp: 45 capsule^Rfl: 1 Allergies: ALLERGIES No Known Allergies ROS: See HPI PE: 08/31/22 0914 BP: 138/94 Pulse: 76 Resp: 20 Temp: 36.9 C (98.5 F) TempSrc: Right Tympanic Weight: 65.3 kg (144 lb) Gen: A&O, NAD, non-toxic appearing, Pleasant, cooperative HEENT: NT/AC, PERRLA, EOMs intact b/l, nares clear and patent b/l, pharynx without erythema, exudate or lesions. Uvula midline. EACs without erythema or debris. TMs pearly bo with intact landmarks b/l. Neck: supple, No cervical LAD, no thyromegaly, no carotid bruits CV: RRR, normal S1 and S2, 1/6 HSM RUSB murmurs, no gallops, no rubs, Pulses 2+ and symmetric in UEand LE b/l Lungs: normal respiratory effort, CTA b/l, no wheezing or rhonchi or rales Abd: soft, NT, ND, +BS, no hepatosplenomegaly MS: FROM all 4 extremities Neuro: CN II-XII intact b/l, strength 5/5 b/l UE and LE, DTRs 2/4 UE and LE, sensation intact. Skin: warm, dry, intact, No rashes or lesions on exposed skin. scattered seborrheic keratoses and angiomas ASSESSMENT/PLAN: 1. Essential hypertension - ICD9: 401.9, ICD10: I10 (primary diagnosis) - good control - Continue current medication(s) - Encouraged dietary sodium restriction/DASH diet - Recommended regular aerobic exercise. - Recommend home blood pressure monitoring, to bring results in on next visit - Goal of BP <130/80 2. Gastroesophageal reflux disease, unspecified whether esophagitis present - ICD9: 530.81, ICD10: K21.9 - Discussed lifestyle modifications including losing weight, limiting caffeine, no meals three hours before sleep, and head of bed elevation - OMEPRAZOLE 20 MG CAPSULE,DELAYED RELEASE 3. Bilateral leg edema - ICD9: 782.3, ICD10: R60.0 Stable, continue spironolactone. 4. Hypothyroidism, unspecified type - ICD9: 244.9, ICD10: E03.9 - Instructed patient on importance of taking on an empty stomach either first thing in the morning or at bedtime. Stable - Continue current medications - TSH BLD - T4 FREE/FREE THYROX - T3 FREE BLD 5. Vitamin D deficiency - ICD9: 268.9, ICD10: E55.9 Continue supplement, stable. - VITAMIN D 25 HYDROXY 6. Stage 3a chronic kidney disease (HCC) - ICD9: 585.3, ICD10: N18.31 - eGFR: Stable - Counseled on avoiding regular use of NSAIDs, adequate hydration, potential risk of IV dye 7. Dyslipidemia - ICD9: 272.4, ICD10: E78.5 - suboptimal control - Encouraged following a low fat, low cholesterol diet. - Discussed the benefits of regular aerobic exercise and weight loss. - COMP METABOLIC PANEL - CBC - LIPID PANEL BASIC 8. Other iron deficiency anemia - ICD9: 280.8, ICD10: D50.8 Stable, continue supplement, no bleeding - IRON + TIBC Sreekanth Cortez DO To ER if develops chest pain, shortness of breath, or severe worsening of symptoms. Discussed risks, benefits, alternatives, and potential side effects of medications. Patient expressed understanding and agreed with the plan. Sreekanth Cortez DO [address] [place] [address] documented in this encounterK[facility]12-19-[facility] History of Present illness Narrative* Sergei Renner APRN.SATISH - 08/10/2022 12:25 PM EST AMBULATORY TELEPHONE VISIT Casandra Henry has consented to this telephone encounter. Persons Present: patient Chief Complaint/Reason: COVID concerns HPI: Started sx: 08/09/2022 Tested COVID positive: 08/09/2022 got COVID on Wednesday night. Patient started her symptoms yesterday- scratchy throat, headache, hoarse, dry cough. No fever or chills. Using cough drops, natural supplements for immune system. Data Reviewed: Most recent labs and imaging results. Most recent office notes Assessment: (U07.1) COVID (primary encounter diagnosis) Plan: Continue supportive care. Rest. Push fluids. Tylenol/ibuprofen prn. OTC cough medication-suggest Delsym. May consider Tessalon Perles if necessary. Paxlovid. Discussed red flag s/s with patient. Total Time Spent: 6 minutes Sergei Renner APRN.CNP Nirmatrelvir/Ritonavir (Paxlovid) Eligibility and Patient Discussion [facility] Formulary Restriction Criteria: Adult outpatients 18 years and older with ALL of the following: [x] Patient has positive SARS-COV-2 viral test (PCR or antigen test) during current illness [x] Patient has symptoms for 5 days or less [] Not requiring hospitalization at any time for management of COVID-19 [x] Not requiring supplemental oxygen or a change in baseline supplemental oxygen [x] Not utilized for pre-exposure or post-exposure prophylaxis for prevention of COVID-19 [x] Patient does not have severe renal impairment (eGFR < 30 mL/min) or severe hepatic impairment (Child-Ulrich Class C) [x] Meeting at least one of the criteria for high risk of progression to severe COVID-19: [x] Age over 65 years [] Cancer [x] Chronic kidney disease [] Chronic liver disease [] Chronic lung diseases, including cystic fibrosis [] Dementia or other neurological conditions [] Diabetes (type 1 or type 2) [] Disabilities, including Down syndrome and neurodevelopmental disorders [x] Heart conditions [] HIV infection [] Immunocompromised state [] Mental health conditions [] Medical related technological dependence (tracheostomy, gastrostomy, or positive pressure ventilation (not related to COVID) [x] Overweight and obesity (BMI greater or equal to 25 for adults) [] Physical inactivity [] [] Sickle cell disease or thalassemia [] Smoking, current or former [] Solid organ or blood stem cell transplant [] Stroke or cerebrovascular disease [] Substance use disorders [] Tuberculosis [] People from racial and ethnic minority groups Criteria above are met: Yes Date of Positive Test:08/10/22 Date of Symptom Onset: 08/10/22 Patient received COVID vaccine: Yes Drug-Drug interactions reviewed: Yes. No drug interactions were identified. I have discussed the use of the investigational therapeutic, nirmatrelvir/ritonavir, for the treatment of mild to moderate COVID-19 and its use under Emergency Use Authorization with the patient. The patient was informed that nirmatrelvir/ritonavir is not an FDA approved drug and that it is authorized for use under this Emergency Use Authorization. The patient was also informed of the significant known benefits and potential risks of nirmatrelvir/ritonavir, and the extent to which such potential risks and benefits are unknown. The patient was informed that there is mandatory reporting of all medication errors and serious adverse events potentially related to nirmatrelvir/ritonavir treatment within 7 calendar days from the onset of the event and that events up to 28 days after completion of therapy need to be reported. The discussion included alternatives to receiving nirmatrelvir/rit onavir, including clinical trials, and potential the risks and benefits of those alternatives. The patient was provided electronically with the Fact Sheet for Patients, Parents and Caregivers. The patient was also instructed that in addition to the treatment with nirmatrelvir/ritonavir, he/she should continue to self-isolate and use infection control measures (e.g., wear mask, isolate, social distance, avoid sharing personal items, clean and disinfect high touch surfaces, and frequent h andwashing) according to CDC guidelines. The patient stated understanding and gave verbal consent to proceeding with nirmatrelvir/ritonavir treatment. Sergei Renner APRN.[employer] August 10, 2022 12:33 PM documented in this encounterK[facility]12-19-2022 Miscellaneous Notes* Telephone Encounter - Karolina Bee RN - 08/10/2022 9:37 AM EST Patient tested positive for Covid 19 yesterday 08/09/2022. Symptoms started yesterday 08/09/2022. Symptoms include: non-productive cough, hoarse, chest congestion, shortness of breath with exertion, fatigue, and poor sleep. Patient denies chest pain, fever, body aches, headache, sore throat, sinus congestion, nausea, vomiting, or diarrhea. Vaccinated with Moderna. Overdue for booster. Patient wants to discuss Paxlovid. VV scheduled for this afternoon. Karolina Bee RN documented in this encounterKettering [facility]11-16-2022 Instructions* Patient Instructions* Margoth Chavez - 07/08/2022 8:21 AM EST Start omeprazole 20mg daily , 30 minutes prior to breakfast. Watch spicy foods, try not to eat at least an hour prior to laying down documented in this encounterKettering [facility]11-16-2022 History of Present illness Narrative* Sergei Renner APRN.SATISH - 07/08/2022 7:50 AM EST Chief Complaint Patient presents with: Hypertension Heartburn Pain, Back: Lower back x months HPI Casandra Henry is a 82 year old female who presents here today for Above Complaints.. Today: For the past 4-5 days has had indigestion/pain in right side of chest. Will burp and this improves.Does not take medication for this. With this BP elevation feels fatigued and heart pounds. BP at home has been in the 140's systolic. [address] Dr[address] Cortez told her that this is too high for her to be at. Chronic right leg numb and tingling. This happens if she stands on it for too long. Jumps sometimesat night. Past medical history, appointments, medications, allergies reviewed. Previous Medical History PAST MEDICAL HISTORY Diagnosis Date Acid reflux Hiatal hernia Hypertension Hypothyroid Previous Surgical History PAST SURGICAL HISTORY Procedure Laterality Date CARPAL TUNNEL 2001 bilateral COLONOSCOPY FLX DX W/COLLJ SPEC WHEN PFRMD 12/05/2013 Colonoscopy done in [facility] FLX W/REMOVAL LESION BY HOT BX FORCEPS 02/19/[address] Catarino Salas LAPAROSCOPIC DUODENAL BIOPSY 02/13/2020 Catarino Salas MD; duodenal biopsy, gastric antrum biopsy, irregular GE junction bopsy, proximal gastric body soft tissue prominence biopsy all performed Family History FAMILY HISTORY Problem Relation Age of Onset Stroke Mother 84 Hypertension Mother Heart Mother Cancer Father Lung 75 Cancer Paternal Grandmother Hypertension Sister Hypertension Sister Diabetes Sister Diabetes Sister Kidney Disease Brother 74 Patient Allergies ALLERGIES No Known Allergies Current Medications Current Outpatient Medications on File Prior to Visit Medication Sig levothyroxine (SYNTHROID) 100 mcg tablet 1 PO daily x 6 days a week levothyroxine (LEVOXYL) 125 mcg tablet Take on empty stomach. For thyroid. 1 PO daily x 1 day a week spironolactone (ALDACTONE) 25 mg tablet Take 1 tablet by mouth once daily. metoprolol tartrate, short acting, (LOPRESSOR) 25 mg tablet Take 1 tablet by mouth twice daily. losartan (COZAAR) 50 mg tablet Take 1 tablet by mouth twice daily. multivit with iron,minerals (MULTIVITAMIN AND MINERALS ORAL) Take by mouth. ferrous sulfate 325 mg (65 mg iron) tablet Take 1 tablet by mouth twice daily with meals. amLODIPine (NORVASC) 5 mg tablet Take 0.5 tablets by mouth once daily. (Patient not taking: Reported on 07/08/2022) No current facility-administered medications on file prior to visit. Social History Social History Tobacco Use Smoking status: Never Smokeless tobacco: Never Substance Use Topics Alcohol use: No Drug use: No Review of Symptoms REVIEW OF SYSTEMS See HPI, otherwise negative EXAM: BP 130/82 (BP Site: Left Arm, BP Position: Sitting, BP Cuff Size: Regular Adult) Pulse 70 Resp 16 Wt 64.8 kg (142 lb 12.8 oz) SpO2 96% BMI 27.67 kg/m General Appearance: Well appearing, alert, in no acute distress, well-hydrated, well nourished.. Back:no pain to palpation of vertebrae, good flexion and extension, good range of motion, no muscletenderness, motor and sensory appear to be normal Lungs: Lungs clear to auscultation. No wheezing, rhonchi, rales.. Heart: RRR without murmur, gallop, or rubs. No ectopy. Extremities: No deformities, edema, skin discoloration, clubbing or cyanosis. Good capillary refill. . Neurologic: Gait normal. Reflexes normal and symmetric. Sensation grossly intact.. Health Maintenance List ADVANCE DIRECTIVE DISCUSSION Never done DEPRESSION ASSESSMENT Never done COVID-19 VACCINE(4 - Booster for Moderna series) due on 09/30/2021 BP CONTROLLED (<130/80) due on 01/24/2022 DTAP,TDAP,TD(1 - Tdap) due on 02/25/2023 ANNUAL PCP TEAM CHRONIC DISEASE VISIT due on 02/25/2023 SERUM CREATININE due on 02/25/2023 DIABETES SCREEN due on 02/25/2025 BONE DENSITY Completed INFLUENZA Completed SHINGRIX VACCINE Completed PNEUMOCOCCAL: 65+ Completed Data reviewed Previous records, office notes ASSESSMENT/PLAN: 1. Essential hypertension - ICD9: 401.9, ICD10: I10 (primary diagnosis) - good control - Continue current medication(s) - Recommended regular aerobic exercise. - Recommend home blood pressure monitoring, to bring results in on next visit - Goal of BP <140/90 - ECHO - PERFLUTREN LIPID MICROSPHERES 1.1 MG/ML INJECTION IN NS 10 ML - SODIUM CHLORIDE 0.9 % (FLUSH) INJECTION SYRINGE - US CAROTID ARTERIES DOE VAS LAB - ECG COMPLETE 2. Gastroesophageal reflux disease, unspecified whether esophagitis present - ICD9: 530.81, ICD10: K21.9 - Discussed lifestyle modifications including limiting caffeine and no meals three hours before sleep - Begin treatment with Prilosec 20 mg QD - ECHO - PERFLUTREN LIPID MICROSPHERES 1.1 MG/ML INJECTION IN NS 10 ML - SODIUM CHLORIDE 0.9 % (FLUSH) INJECTION SYRINGE - OMEPRAZOLE 20 MG CAPSULE,DELAYED RELEASE - US CAROTID ARTERIES DOE VAS LAB - ECG COMPLETE Sergei Renner APRN.[employer] documented in this encounterKettering [facility]08-15-2022 History of Present illness Narrative* Yann French MD - 04/06/2022 3:16 PM EDT Patient presents with: UTI: Low back pain and frequency with urination x 1 week HPI: Symptoms 1 week. Dysuria: No Frequency: Yes Hematuria: No Nausea: off and on, mild. Normal bowel movements. Fever or chills: chills the initial day Back pain: right flank Abdominal pain: Prior UTI: remotely Personal history of kidney stones: No Family history of kidney stones: No Her blood pressure has been fluctuating this week. Denies chest pain, shortness of breath, or palpitations. She did have a dizzy spell earlier today which prompted her to come in for UTI check. MEDICATIONS: Current Outpatient Medications Medication Sig levothyroxine (SYNTHROID) 100 mcg tablet 1 PO daily x 6 days a week levothyroxine (LEVOXYL) 125 mcg tablet Take on empty stomach. For thyroid. 1 PO daily x 1 day a week spironolactone (ALDACTONE) 25 mg tablet Take 1 tablet by mouth once daily. metoprolol tartrate, short acting, (LOPRESSOR) 25 mg tablet Take 1 tablet by mouth twice daily. losartan (COZAAR) 50 mg tablet Take 1 tablet by mouth twice daily. amLODIPine (NORVASC) 5 mg tablet Take 0.5 tablets by mouth once daily. multivit with iron,minerals (MULTIVITAMIN AND MINERALS ORAL) Take by mouth. ferrous sulfate 325 mg (65 mg iron) tablet Take 1 tablet by mouth twice daily with meals. No current facility-administered medications for this visit. ALLERGIES: ALLERGIES No Known Allergies VITALS: BP 122/84 Pulse 85 Temp 36.8 C (98.2 F) Resp 21 Wt 66.6 kg (146 lb 12.8 oz) SpO2 99% BMI 28.45 kg/m PHYSICAL EXAM: GEN: NAD HEENT: EOMI, conjunctiva clear, moist mucous membranes HEART: regular rate and rhythm, no murmurs LUNGS: clear to auscultation, no wheezes or crackles, no increased WOB ABDOMEN: Soft, nondistended, no masses, no suprapubic tenderness, LLQ discomfort with palpation BACK: No CVA or midline tenderness, Left lateral lower back discomfort with palpation. Component Latest Ref Rng & Units 02/25/2022 eGFR >=60 mL/min/1.73m 73 ASSESSMENT/PLAN: 1. Acute left flank pain - ICD9: 789.09, 338.19, ICD10: R10.9 (primary diagnosis) 2. Urinary frequency - ICD9: 788.41, ICD10: R35.0 - UA positive for small ifeoma esterase - Send urine for culture - CEPHALEXIN 500 MG CAPSULE Suspect musculoskeletal back pain. Continue acetaminophen as needed. Follow-up if persistent or worsening dizziness or abdominal pain. Yann French MD [facility] Miscellaneous Notes* Telephone Encounter - Silvana Freedman Ma - 02/26/2022 8:26 AM EDT Pt informed, verbalized understanding. Silvana Freedman Ma * Telephone Encounter - Donita Gonzales APRN.CNP - 02/26/2022 7:13 AM EDT Please call patient and let her know that her blood work results overall look great! No acute concerns. Thyroid labs show a low TSH and elevated T4. TSH level is the lowest it has been in years. This being said, I recommend we decrease the dosage of synthroid slightly to 100 mcg 6x/week and the 125 mcg1x/week. We can repeat thyroid labs in 6 weeks and see if more change is needed. Otherwise, all other labs looks great. HgA1c is normal. Lipid panel has a slightly elevated triglyceride but otherwise looks great! Healthy diet and routine exercise will keep these values low. We are still waiting for Vitamin D to result. We will let her know if this is out of normal range once it results. Thank you, Donita Gonzales APRN.SATISH documented [facility] History of Present illness Narrative* Donita Gonzales APRN.CNP - 02/25/2022 11:00 AM EDT Chief Complaint Patient presents with: Physical HPI Casandra Henry is a 81 year old female who presents here today for Above Complaints. Casandra is an established patient of Dr. Diego DO. Casandra is a new patient to me today. Concerns today.. HTN: Amlodipine 2.5 mg daily, losartan 50 mg BID, metoprolol 25 mg BID. Initial BP elevated in office at 150/60. Recheck normal at 136/60. BP last night was 127/74. Takes BP occasionally at home and always about 120s/70s per pt. Every once in awhile will have systolic of 140s when taking at home. Denies any headache, dizziness, CP or SOB. Last 14 Encounter BP Readings: Date: BP: 02/25/2022 150/60 01/24/2021 134/74 07/26/2020 150/80 01/24/2020 120/70 06/28/2019 126/70 03/28/2019 122/82 12/26/2018 130/70 06/27/2018 136/70 03/23/2018 160/80 12/13/2017 150/84 10/11/2017 130/60 10/09/2017 158/82 09/30/2017 138/60 09/27/2017 130/80 HLD: No medication regimen. Will do fish oil if needed, otherwise, would like to stay away from cholesterol medications d/t spiritual beliefs. Jehovah witness. Component Latest Ref Rng & Units 01/13/2021 Cholesterol, Total <200 mg/dL 194 Triglyceride <150 mg/dL 131 HDL Cholesterol >39 mg/dL 53 LDL Cholesterol <100 mg/dL 115 (H) Non HDL Cholesterol <130 mg/dL 141 (H) Fasting Time hrs 12 VLDL Cholesterol <30 mg/dL 26 TC:HDL Ratio <5.10 3.66 LDL:HDL Ratio <2.54 2.17 Hypothyroidism: Synthroid 100 mcg 5x/week. Levothyroxine 125 mcg 2x/week. Taking 125 mcg on Tuesdays and Fridays. Tolerating well. Feels well controlled and stable. Has had hyper-thyroid symptoms in the past and does not feel this way currently. Component Latest Ref Rng & Units 01/13/2021 2021 TSH 0.270 - 4.200 uU/mL 0.080 (L) 0.121 (L) Free T4 0.9 - 1.7 ng/dL 1.8 (H) Free T3 2.3 - 4.1 pg/mL 3.0 CKD: Stage 3a Follows with kidney specialist through [facility]. Was going every 3 months but is now on yearly visits. Was just seen about 3 months ago. Component Latest Ref Rng & Units 01/13/2021 Protein, Total 6.3 - 8.0 g/dL 6.7 Albumin 3.9 - 4.9 g/dL 4.4 Calcium 8.5 - 10.2 mg/dL 9.8 Bilirubin, Total 0.2 - 1.3 mg/dL 1.8 (H) Alkaline Phosphatase 34 - 123 U/L 111 AST 13 - 35 U/L 21 Glucose 74 - 99 mg/dL 93 BUN 7 - 21 mg/dL 14 Creatinine 0.58 - 0.96 mg/dL 1.00 (H) Sodium 136 - 144 mmol/L 137 Potassium 3.7 - 5.1 mmol/L 4.7 Chloride 97 - 105 mmol/L 102 CO2 22 - 30 mmol/L 26 Anion Gap 9 - 18 mmol/L 9 ALT 7 - 38 U/L 16 eGFR- >60 eGFR-All Other Races . 54 Iron Deficiency: Taking ferrous sulfate 325 mg BID. Feels stable and well-controlled. States she can feel when iron is off. IBD --- daughter has celiac disease. Has tried to go gluten free since daughter got dx which has drastically helped her symptoms as well. Bilateral leg edema: Controlled. Stable on spironolactone 25 mg daily. Some mild swelling when on feet all day. Otherwise, no swelling at baseline. Past medical history, appointments, medications, allergies reviewed. Previous Medical History PAST MEDICAL HISTORY Diagnosis Date Acid reflux Hiatal hernia Hypertension Hypothyroid Previous Surgical History PAST SURGICAL HISTORY Procedure Laterality Date CARPAL TUNNEL 2001 bilateral COLONOSCOPY FLX DX W/COLLJ SPEC WHEN PFRMD 12/05/2013 Colonoscopy done in [facility] FLX W/REMOVAL LESION BY HOT BX FORCEPS 02/19/[address] Catarino Salas LAPAROSCOPIC DUODENAL BIOPSY 02/13/2020 Catarino Salas MD; duodenal biopsy, gastric antrum biopsy, irregular GE junction bopsy, proximal gastric body soft tissue prominence biopsy all performed Family History FAMILY HISTORY Problem Relation Age of Onset Stroke Mother 84 Hypertension Mother Heart Mother Cancer Father Lung 75 Cancer Paternal Grandmother Hypertension Sister Hypertension Sister Diabetes Sister Diabetes Sister Kidney Disease Brother 74 Patient Allergies ALLERGIES No Known Allergies Current Medications Current Outpatient Medications on File Prior to Visit Medication Sig spironolactone (ALDACTONE) 25 mg tablet Take 1 tablet by mouth once daily. metoprolol tartrate, short acting, (LOPRESSOR) 25 mg tablet Take 1 tablet by mouth twice daily. levothyroxine (SYNTHROID) 100 mcg tablet 1 PO daiily x 5 days a week levothyroxine (LEVOXYL) 125 mcg tablet Take on empty stomach. For thyroid. 1 PO daily x 2 days a wek losartan (COZAAR) 50 mg tablet Take 1 tablet by mouth twice daily. multivit with iron,minerals (MULTIVITAMIN AND MINERALS ORAL) Take by mouth. amLODIPine (NORVASC) 5 mg tablet Take 0.5 tablets by mouth once daily. ferrous sulfate 325 mg (65 mg iron) tablet Take 1 tablet by mouth twice daily with meals. No current facility-administered medications on file prior to visit. Social History Social History Tobacco Use Smoking status: Never Smoker Smokeless tobacco: Never Used Substance Use Topics Alcohol use: No Drug use: No REVIEW OF SYSTEMS: as above Reviewed relevant PMHx, PSHx, Social Hx, current medications and allergies. Review of Symptoms See HPI. All other systems are negative. EXAM: BP 136/60 (BP Site: Left Arm, BP Position: Sitting, BP Cuff Size: Regular Adult) Pulse 100 Resp16 Ht 153 cm (5' 0.24) Wt 64.4 kg (142 lb 1.3 oz) BMI 27.53 kg/m General Appearance: Well appearing, alert, in no acute distress, well-hydrated, well nourished.. Skin: Skin color, texture, turgor normal, no suspicious rashes or lesions. Head: Normocephalic, no masses, lesions, tenderness or abnormalities. Nose/Sinuses: Nares normal, septum midline, mucosa normal, no drainage or sinus tenderness. Oropharynx: Lips, mucosa, and tongue normal, teeth and gums normal, oropharynx normal. Neck: Supple, no adenopathy; thyroid symmetric, normal size, no bruits. Back:no pain to palpation of vertebrae, good flexion and extension, good range of motion, no muscletenderness, reflexes are 2+ and symmetric, motor and sensory appear to be normal, negative SLR test, no evidence of scoliosis Lungs: Lungs clear to auscultation. No wheezing, rhonchi, rales.. Heart: RRR without murmur, gallop, or rubs. No ectopy. Abdomen: Normal abdominal exam, Abdomen soft, non-tender. Bowel sounds normal. No masses, organomegaly. Extremities: No deformities, edema, skin discoloration, clubbing or cyanosis. Good capillary refill. . Musculoskeletal: No joint swelling, deformity, or tenderness. Peripheral Pulses: Normal. Neurologic: Gait normal. Reflexes normal and symmetric. Sensation grossly intact.. Lymph Nodes: No cervical lymphadenopathy, No supraclavicular lymphadenopathy, No axillary lymphadenopathy. and No inguinal lymphadenopathy.. Health Maintenance List DTAP,TDAP,TD(1 - Tdap) Never done COVID-19 VACCINE(3 - Booster for Moderna series) due on 04/01/2021 ADVANCE DIRECTIVE DISCUSSION Never done ANNUAL PCP TEAM CHRONIC DISEASE VISIT due on 01/24/2022 BP CONTROLLED (<130/80) due on 01/24/2022 DEPRESSION SCREENING due on 01/24/2022 INFLUENZA(1) due on 04/23/2022 SERUM CREATININE due on 08/20/2022 DIABETES SCREEN due on 08/20/2024 BONE DENSITY Completed SHINGRIX VACCINE Completed PNEUMOCOCCAL: 65+ Completed ASSESSMENT/PLAN: 1. Essential hypertension - ICD9: 401.9, ICD10: I10 (primary diagnosis) - good control - Continue current medication(s) - Encouraged dietary sodium restriction/DASH diet - Recommended regular aerobic exercise. - Recommend home blood pressure monitoring, to bring results in on next visit - Reviewed risks of HTN and principles of treatment - Goal of BP <130/80 - Recommend home or pharmacy blood pressure monitoring - Recommended no refined sugar, low refined starch, healthy oil intake (olive oil), healthy protein(fish) along the lines of the Mediterranean diet. - HGB A1C - CBC - METOPROLOL TARTRATE 25 MG TABLET - LOSARTAN 50 MG TABLET 2. Bilateral leg edema - ICD9: 782.3, ICD10: R60.0 Stable. Well controlled. Refilled. - SPIRONOLACTONE 25 MG TABLET 3. Hypothyroidism, unspecified type - ICD9: 244.9, ICD10: E03.9 - Instructed patient on importance of taking on an empty stomach either first thing in the morning or at bedtime. - check TSH, free T4 and T3 today - continue current dose of Synthroid Stable - Behavioral intervention, - Pharmacological intervention, - Eat well program and - Continue current medications - TSH BLD - T3 BLD - T4 FREE/FREE THYROX - LEVOTHYROXINE 100 MCG TABLET - LEVOTHYROXINE 125 MCG TABLET 4. Vitamin D deficiency - ICD9: 268.9, ICD10: E55.9 Stable. - VITAMIN D 25 HYDROXY 5. Stage 3a chronic kidney disease (HCC) - ICD9: 585.3, ICD10: N18.31 Continue to follow with senior contracts manager at routine intervals. - COMP METABOLIC PANEL 6. Dyslipidemia - ICD9: 272.4, ICD10: E78.5 - to be determined upon return of lab results - Continue current medication. - Encouraged following a low fat, low cholesterol diet. - Discussed the benefits of regular aerobic exercise and weight loss. - Check fasting lipid panel and ALT. - Encouraged following a low carbohydrate, healthy oil intake diet. - Continue current therapy. - LIPID PANEL BASIC 7. Other iron deficiency anemia - ICD9: 280.8, ICD10: D50.8 Stable. Recheck levels. - IRON + TIBC - FERRITIN BLD 8. Screening for diabetes mellitus - ICD9: V77.1, ICD10: Z13.1 - HGB A1C RTO in 6 months, sooner if needed. Prescription instructions reviewed with patient as applicable. Potential red flag symptoms discussed with the patient. Reviewed appropriate action plan to take if red flag symptoms occur. Patient agreeable to treatment plan. Donita Gonzales APRN.CNP [address] [place] [address] [facility]* Diagnosis Essential hypertension- Primary Unspecified essential hypertension Bilateral leg edema Edema Hypothyroidism, unspecified type Vitamin D deficiency Unspecified vitamin D deficiency Stage 3a chronic kidney disease (HCC) Dyslipidemia Other and unspecified hyperlipidemia Other iron deficiency anemia Screening for diabetes mellitus documented in this encounter [facility] note* Diagnosis Bilateral leg edema Edema Hypothyroidism, unspecified type documented in this encounter [facility] note* Diagnosis Acute left flank pain- Primary Abdominal pain, unspecified site Urinary frequency documented in this encounter [facility] note* Diagnosis Essential hypertension- Primary Unspecified essential hypertension Gastroesophageal reflux disease, unspecified whether esophagitis present documented in this encounter [facility] note* Diagnosis COVID- Primary documented in this encounter [facility] note* Diagnosis Essential hypertension- Primary Unspecified essential hypertension Gastroesophageal reflux disease, unspecified whether esophagitis present Bilateral leg edema Edema Hypothyroidism, unspecified type Vitamin D deficiency Unspecified vitamin D deficiency Stage 3a chronic kidney disease (HCC) Dyslipidemia Other and unspecified hyperlipidemia Other iron deficiency anemia documented in this encounter [facility] note* Diagnosis Essential hypertension Unspecified essential hypertension documented in this encounter [facility] note* Diagnosis Bilateral leg edema Edema documented in this encounter [facility] note* Diagnosis Lumbar radiculopathy- Primary Thoracic or lumbosacral neuritis or radiculitis, unspecified Chronic midline low back pain with bilateral sciatica documented in this encounter [facility] note* Diagnosis Essential hypertension Unspecified essential hypertension documented in this encounter [facility] note* Diagnosis Essential hypertension- Primary Unspecified essential hypertension documented in this encounter [facility] note* Diagnosis Bilateral leg edema Edema documented in this encounter [facility] note* Diagnosis Essential hypertension- Primary Unspecified essential hypertension Hypothyroidism, unspecified type Bilateral leg edema Edema Lumbar radiculopathy Thoracic or lumbosacral neuritis or radiculitis, unspecified Other iron deficiency anemia Dyslipidemia Other and unspecified hyperlipidemia documented in this encounter [facility] note* Diagnosis Hypothyroidism, unspecified type documented in this encounter [facility] noteNo assessment information availableWOhioHealth [facility] Work Phone: Evaluation note* Diagnosis Essential hypertension- Primary Unspecified essential hypertension Dysuria Hypothyroidism, unspecified type documented in this encounter [facility] note* Diagnosis Dizziness- Primary Dizziness and giddiness Hypothyroidism, unspecified type Essential hypertension Unspecified essential hypertension documented in this encounter [facility] note* Diagnosis Low sodium levels- Primary Hyposmolality and/or hyponatremia Hypothyroidism, unspecified type Other iron deficiency anemia Dizziness Dizziness and giddiness documented in this encounter [facility] note* Diagnosis Procedure not carried out- Primary Procedure not carried out for other reasons documented in this encounter [facility] note* Diagnosis Hyponatremia- Primary Hyposmolality and/or hyponatremia Anemia, unspecified type Hypothyroidism, unspecified type Dizziness Dizziness and giddiness Essential hypertension Unspecified essential hypertension Fatigue, unspecified type Shakiness Abnormal involuntary movements documented in this encounter [facility] note* Diagnosis Low sodium levels- Primary Hyposmolality and/or hyponatremia documented in this encounter [facility] note* Diagnosis Dizziness- Primary Dizziness and giddiness Hypothyroidism, unspecified type Essential hypertension Unspecified essential hypertension CHECO (generalized anxiety disorder) Generalized anxiety disorder Hyponatremia Hyposmolality and/or hyponatremia documented in this encounter [facility] note* Diagnosis Leukocytosis, unspecified type- Primary documented in this encounter [facility] note* Diagnosis Dizziness- Primary Dizziness and giddiness documented in this encounter [facility] note* Diagnosis Leukocytosis, unspecified type- Primary documented in this encounter [facility] note* Diagnosis Hyponatremia- Primary Hyposmolality and/or hyponatremia documented in this encounter [facility] note* Diagnosis Leukocytosis, unspecified type- Primary documented in this encounter [facility] note* Diagnosis Essential hypertension- Primary Unspecified essential hypertension Hyponatremia Hyposmolality and/or hyponatremia Hypothyroidism, unspecified type Other iron deficiency anemia Dyslipidemia Other and unspecified hyperlipidemia documented in this encounter [facility] note* Diagnosis CHECO (generalized anxiety disorder) Generalized anxiety disorder documented in this encounter [facility] note* Diagnosis Essential hypertension- Primary Unspecified essential hypertension Stage 3a chronic kidney disease (HCC) Hyponatremia Hyposmolality and/or hyponatremia Hypothyroidism, unspecified type documented in this encounter [facility] note* Diagnosis Acute cough- Primary URI, acute Acute upper respiratory infections of unspecified site documented in this encounter [facility] note* Diagnosis Hyponatremia- Primary Hyposmolality and/or hyponatremia Hypertension, essential Unspecified essential hypertension Palpitation Palpitations Hypothyroidism, unspecified type Iatrogenic hyperthyroidism 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 or storm documented in this encounter [facility] note* Diagnosis SVT (supraventricular tachycardia) (HCC)- Primary Other specified cardiac dysrhythmias Palpitations Essential hypertension Unspecified essential hypertension Hyperlipidemia, mixed Mixed hyperlipidemia Hypertension, essential Unspecified essential hypertension Palpitation Palpitations documented in this encounter [facility] note* Diagnosis Hypothyroidism, unspecified type- Primary documented in this encounter [facility] note* Diagnosis Acute cough documented in this encounter [facility] note* Diagnosis Lumbar radiculopathy Thoracic or lumbosacral neuritis or radiculitis, unspecified Chronic midline low back pain with bilateral sciatica documented in this encounter [facility] note* Diagnosis Hypothyroidism, unspecified type- Primary documented in this encounter [facility] note* Diagnosis Hypothyroidism, unspecified type- Primary Hypertension, essential Unspecified essential hypertension Stage 3a chronic kidney disease (HCC) Other iron deficiency anemia Dyslipidemia Other and unspecified hyperlipidemia Vitamin D deficiency Unspecified vitamin D deficiency Fatigue, unspecified type Essential hypertension Unspecified essential hypertension documented in this encounter [facility] note* Diagnosis Hypothyroidism, unspecified type documented in this encounter [facility] note* Diagnosis Hypertension, essential Unspecified essential hypertension documented in this encounter [facility] note* Diagnosis Hypertension, essential- Primary Unspecified essential hypertension documented in this encounter [facility] note* Diagnosis Hypertension, essential- Primary Unspecified essential hypertension Stage 3a chronic kidney disease (HCC) Hypothyroidism, unspecified type Fatigue, unspecified type Dyslipidemia Other and unspecified hyperlipidemia Hyponatremia Hyposmolality and/or hyponatremia documented in this encounter [facility] note* Diagnosis Labile blood pressure- Primary Elevated blood pressure reading without diagnosis of hypertension Hypertension, essential Unspecified essential hypertension Hyponatremia Hyposmolality and/or hyponatremia Fatigue, unspecified type documented in this encounter [facility] for referral (narrative)* Outpatient Procedure (Routine) - Pending Review Specialty Diagnoses / Procedures Referred By Elsy t Referred To [facility] Diagnoses Gastroesophageal reflux disease, unspecified whether esophagitis present Essential hypertension Procedures ECG COMPLETE ECG ROUTINE ECG W/LEAST 12 LDS W/I&R Sergei Renner, FERNANDEZ.LAB[employer]ER [employer]ORES [address] [place] [address] [facility] [place] [address] [place] [address] Referral ID Status Reason Start Date Expiration Date Visits Requested Visits Authorized [id number] Pending Review Auto-Generat ed Referral 2 07/08/2023 1 1 * Outpatient Procedure (Routine) - Pending Review Specialty Diagnoses / Procedures Referred By Contac t Referred To Contact [facility] [place] Diagnoses Gastroesophageal reflux disease, unspecified whether esophagitis present Essential hypertension Procedures US CAROTID ARTERIES DOE VAS LAB DUPLEX SCAN EXTRACRANIAL ART COMPL BI STUDY Sergei Renner, TRADEMARK ATTORNEY.LAB[employer]ER [employer]ORES [address] [place] [address] [facility] [place] [address] [place] [address] Referral ID Status Reason Start Date Expiration Date Visits Requested Visits Authorized [id number] Pending Review Auto-Generat ed Referral 2 07/08/2023 1 1 * Outpatient Procedure (Routine) - Authorized Specialty Diagnoses / Procedures Referred By Contac t Referred To Contact [facility] Diagnoses Gastroesophageal reflux disease, unspecified whether esophagitis present Essential hypertension Procedures ECHO ECHO TTHRC R-T 2D W/WOM-MODE COMPL SPEC&COLR D Sergei Renner, FERNANDEZ.[employer]ER [employer]ORES [address] [place] [address] [address] [place] [address] Referral ID Status Reason Start Date Expiration Date Visits Requested Visits Authorized [id number] Authorized Auto-Generat ed Referral 2 07/08/2023 1 1 [facility] for referral (narrative)* Outpatient Procedure (Routine) - Pending Review Specialty Diagnoses / Procedures Referred By Contac t Referred To Contact [facility] [place] Diagnoses Dizziness Procedures US CAROTID ARTERIES DOE VAS LAB DUPLEX SCAN EXTRACRANIAL ART COMPL BI STUDY Donita Estes, TRADEMARK ATTORNEY.[employer]ER [employer]ES [address] [place] [address] [facility] [place] [address] [place] [address] Referral ID Status Reason Start Date Expiration Date Visits Requested Visits Authorized [id number] Pending Review Auto-Generat ed Referral 07/20/2024 1 1 [facility] for referral (narrative)* Diagnostic Procedure Only (Routine) - Closed Specialty Diagnoses / Procedures Referred By Contac t Referred To Contact [facility] Diagnoses Lumbar radiculopathy Chronic midline low back pain with bilateral sciatica Procedures XR LUMBAR GENERAL 3V AP/LAT/L5-S1 RADEX SPINE LUMBOSACRAL 2/3 VIEWS Sreekanth Cortez, DO [address] [place] [address] X[facility] Imaging [facility] Referral ID Status Reason Start Date Expiration Date V isits Requested Visits Authorized [id number] Closed Auto-Generate d Referral 12/25/2022 01/24/2024 1 1 [facility] for visit Narrative* Diagnostic Procedure Only (Routine) - Closed Specialty Diagnoses / Procedures Referred By Contac t Referred To Contact XR IMAGING Diagnoses Lumbar radiculopathy Chronic midline low back pain with bilateral sciatica Procedures XR LUMBAR GENERAL 3V AP/LAT/L5-S1 RADEX SPINE LUMBOSACRAL 2/3 VIEWS Sreekanth Cortez, DO [address] [place] [address] [place] [address] Referral ID Status Reason Start Date Expiration Date V isits Requested Visits Authorized [id number] Closed Auto-Generate d Referral 12/25/2022 01/24/2024 1 1 [facility] Summary Purpose Family History No Family History Records Found Relationship Condition Age at Onset Recorded Date/T otis Unknown Family History?No pe rtinent history Unknown October 05, 2017 3:23pm Family History?No pe rtinent history Unknown October 05, 2017 3:23pm Relationship Condition Age at Onset Recorded Date/T otis Unknown Family History?No pe rtinent history Unknown October 05, 2017 2:23pm Family History?No pe rtinent history Unknown October 05, 2017 2:23pm Advance Directives No Advanced Directives Records Found Advance Directive Response Recorded Date/ Time Advance Directives Yes September 6:49am Living Will Yes March 20, 2023 5:52pm Power of Cardiograph Operator Yes March 20 5:52pm Name of Medical Power of Cardiograph Operator Uli Tariqr, hus band March 20, 2023 5:52pm Advance Directive Response Recorded Date/ Time Name of Medical Power of Cardiograph Operator Uli Tariqr, hus band March 20, 2023 4:52pm Name of Medical Power of Cardiograph Operator spouse June 29, 2023 11:08am Advance Directives Yes September 5:49am Living Will Yes June 29 11:08am Power of Cardiograph Operator Yes June 29, 2023 11:08am Reason for Referral Specialty Diagnoses / Procedures Referred By Contac t Referred To Contact [facility] Diagnoses Lumbar radiculopathy Chronic midline low back pain with bilateral sciatica Procedures CONSULT TO PHYSICAL THERAPY PHYSICAL THERAPY EVALUATION HIGH COMPLEX 45 MINS Sreekanth Cortez L, DO [address] [place] [address] [facility] [place] [address] [place] [address] Referral ID Status Reason Start Date Expiration Date Visits Requested Visits Authorized [id number] Pending Review Auto-Generat ed Referral 12/25/2022 12/25/2023 1 1 Specialty Diagnoses / Procedures Referred By Contac t Referred To Contact XR IMAGING Diagnoses Lumbar radiculopathy Chronic midline low back pain with bilateral sciatica Procedures XR LUMBAR GENERAL 3V AP/LAT/L5-S1 RADEX SPINE LUMBOSACRAL 2/3 VIEWS Sreekanth Cortez L, DO [address] [place] [address] Xr Imaging Referral ID Status Reason Start Date Expiration Date V isits Requested Visits Authorized [id number] Closed Auto-Generate d Referral 12/25/2022 01/24/2024 1 1 Specialty Diagnoses / Procedures Referred By Contac t Referred To Contact Diagnoses Hypothyroidism, unspecified type Sergei Renner, [employer] [address] [place] [address] Referral ID Status Reason Start Date Expiration Date V isits Requested Visits Authorized [id number] Authorized 06/13/2024 07/13/2025 1 1 Chief Complaint and Reason for Visit Chief Complaint HYPERTENSION Chief Complaint HYPERTENSION DIZZINESS Additional Source Comments INFORMATION SOURCE (unrecogn ized section and content) DATE CREATED AUTHOR 02/16/2018 [facility] DATE CREATED AUTHOR AUTHOR'S ORGANIZ ATION 09/02/2018 [facility] DATE CREATED AUTHOR AUTHOR'S ORGANIZ ATION 07/10/2023 [facility] DATE CREATED AUTHOR AUTHOR'S ORGANIZ ATION 08/15/2023 [facility] DATE CREATED AUTHOR AUTHOR'S ORGANIZ ATION 02/20/2025 [facility] Source Comments (unrecognize d section and content) In the event this informatio n is protected by the Federal Confidentiality of Alcohol and Drug Abuse Patient Records regulations: The Federal rules restrict any use of the information to criminally investigate or prosecute any alcohol or drug abuse patient.[facility] the event this information is protected by the Federal Confidentiality of Alcohol and Drug Abuse Patient Records regulations: The Federal rules restrict any use of the information to criminally investigate or prosecute any alcohol or drug abuse patient.[facility] CenterIn the event this information is protected by the Federal Confidentiality of Alcohol and Drug Abuse Patient Records regulations: The Federal rules restrict any use of the information to criminally investigate or prosecute any alcohol or drug abuse patient.[facility] CenterIn the event this information is protected by the Federal Confidentiality of Alcohol and Drug Abuse Patient Records regulations: The Federal rules restrict any use of the information to criminally investigate or prosecute any alcohol or drug abuse patient.[facility] CenterIn the event this information is protected by the Federal Confidentiality of Alcohol and Drug Abuse Patient Records regulations: The Federal rules restrict any use of the information to criminally investigate or prosecute any alcohol or drug abuse patient.[facility] CenterIn the event this information is protected by the Federal Confidentiality of Alcohol and Drug Abuse Patient Records regulations: The Federal rules restrict any use of the information to criminally investigate or prosecute any alcohol or drug abuse patient.[facility] CenterIn the event this information is protected by the Federal Confidentiality of Alcohol and Drug Abuse Patient Records regulations: The Federal rules restrict any use of the information to criminally investigate or prosecute any alcohol or drug abuse patient.[facility] CenterIn the event this information is protected by the Federal Confidentiality of Alcohol and Drug Abuse Patient Records regulations: The Federal rules restrict any use of the information to criminally investigate or prosecute any alcohol or drug abuse patient.[facility] CenterIn the event this information is protected by the Federal Confidentiality of Alcohol and Drug Abuse Patient Records regulations: The Federal rules restrict any use of the information to criminally investigate or prosecute any alcohol or drug abuse patient.[facility] CenterIn the event this information is protected by the Federal Confidentiality of Alcohol and Drug Abuse Patient Records regulations: The Federal rules restrict any use of the information to criminally investigate or prosecute any alcohol or drug abuse patient.[facility] CenterIn the event this information is protected by the Federal Confidentiality of Alcohol and Drug Abuse Patient Records regulations: The Federal rules restrict any use of the information to criminally investigate or prosecute any alcohol or drug abuse patient.[facility] CenterIn the event this information is protected by the Federal Confidentiality of Alcohol and Drug Abuse Patient Records regulations: The Federal rules restrict any use of the information to criminally investigate or prosecute any alcohol or drug abuse patient.[facility] CenterIn the event this information is protected by the Federal Confidentiality of Alcohol and Drug Abuse Patient Records regulations: The Federal rules restrict any use of the information to criminally investigate or prosecute any alcohol or drug abuse patient.[facility] CenterIn the event this information is protected by the Federal Confidentiality of Alcohol and Drug Abuse Patient Records regulations: The Federal rules restrict any use of the information to criminally investigate or prosecute any alcohol or drug abuse patient.[facility] CenterIn the event this information is protected by the Federal Confidentiality of Alcohol and Drug Abuse Patient Records regulations: The Federal rules restrict any use of the information to criminally investigate or prosecute any alcohol or drug abuse patient.[facility] CenterIn the event this information is protected by the Federal Confidentiality of Alcohol and Drug Abuse Patient Records regulations: The Federal rules restrict any use of the information to criminally investigate or prosecute any alcohol or drug abuse patient.[facility] CenterIn the event this information is protected by the Federal Confidentiality of Alcohol and Drug Abuse Patient Records regulations: The Federal rules restrict any use of the information to criminally investigate or prosecute any alcohol or drug abuse patient.[facility] CenterIn the event this information is protected by the Federal Confidentiality of Alcohol and Drug Abuse Patient Records regulations: The Federal rules restrict any use of the information to criminally investigate or prosecute any alcohol or drug abuse patient.[facility] CenterIn the event this information is protected by the Federal Confidentiality of Alcohol and Drug Abuse Patient Records regulations: The Federal rules restrict any use of the information to criminally investigate or prosecute any alcohol or drug abuse patient.[facility] CenterIn the event this information is protected by the Federal Confidentiality of Alcohol and Drug Abuse Patient Records regulations: The Federal rules restrict any use of the information to criminally investigate or prosecute any alcohol or drug abuse patient.[facility] CenterIn the event this information is protected by the Federal Confidentiality of Alcohol and Drug Abuse Patient Records regulations: The Federal rules restrict any use of the information to criminally investigate or prosecute any alcohol or drug abuse patient.[facility] CenterIn the event this information is protected by the Federal Confidentiality of Alcohol and Drug Abuse Patient Records regulations: The Federal rules restrict any use of the information to criminally investigate or prosecute any alcohol or drug abuse patient.[facility] CenterIn the event this information is protected by the Federal Confidentiality of Alcohol and Drug Abuse Patient Records regulations: The Federal rules restrict any use of the information to criminally investigate or prosecute any alcohol or drug abuse patient.[facility] CenterIn the event this information is protected by the Federal Confidentiality of Alcohol and Drug Abuse Patient Records regulations: The Federal rules restrict any use of the information to criminally investigate or prosecute any alcohol or drug abuse patient.[facility] CenterIn the event this information is protected by the Federal Confidentiality of Alcohol and Drug Abuse Patient Records regulations: The Federal rules restrict any use of the information to criminally investigate or prosecute any alcohol or drug abuse patient.[facility] CenterIn the event this information is protected by the Federal Confidentiality of Alcohol and Drug Abuse Patient Records regulations: The Federal rules restrict any use of the information to criminally investigate or prosecute any alcohol or drug abuse patient.[facility] CenterIn the event this information is protected by the Federal Confidentiality of Alcohol and Drug Abuse Patient Records regulations: The Federal rules restrict any use of the information to criminally investigate or prosecute any alcohol or drug abuse patient.[facility] CenterIn the event this information is protected by the Federal Confidentiality of Alcohol and Drug Abuse Patient Records regulations: The Federal rules restrict any use of the information to criminally investigate or prosecute any alcohol or drug abuse patient.[facility] CenterIn the event this information is protected by the Federal Confidentiality of Alcohol and Drug Abuse Patient Records regulations: The Federal rules restrict any use of the information to criminally investigate or prosecute any alcohol or drug abuse patient.[facility] CenterIn the event this information is protected by the Federal Confidentiality of Alcohol and Drug Abuse Patient Records regulations: The Federal rules restrict any use of the information to criminally investigate or prosecute any alcohol or drug abuse patient.[facility] CenterIn the event this information is protected by the Federal Confidentiality of Alcohol and Drug Abuse Patient Records regulations: The Federal rules restrict any use of the information to criminally investigate or prosecute any alcohol or drug abuse patient.[facility] CenterIn the event this information is protected by the Federal Confidentiality of Alcohol and Drug Abuse Patient Records regulations: The Federal rules restrict any use of the information to criminally investigate or prosecute any alcohol or drug abuse patient.[facility] CenterIn the event this information is protected by the Federal Confidentiality of Alcohol and Drug Abuse Patient Records regulations: The Federal rules restrict any use of the information to criminally investigate or prosecute any alcohol or drug abuse patient.[facility] CenterIn the event this information is protected by the Federal Confidentiality of Alcohol and Drug Abuse Patient Records regulations: The Federal rules restrict any use of the information to criminally investigate or prosecute any alcohol or drug abuse patient.[facility] CenterIn the event this information is protected by the Federal Confidentiality of Alcohol and Drug Abuse Patient Records regulations: The Federal rules restrict any use of the information to criminally investigate or prosecute any alcohol or drug abuse patient.[facility] CenterIn the event this information is protected by the Federal Confidentiality of Alcohol and Drug Abuse Patient Records regulations: The Federal rules restrict any use of the information to criminally investigate or prosecute any alcohol or drug abuse patient.[facility] CenterIn the event this information is protected by the Federal Confidentiality of Alcohol and Drug Abuse Patient Records regulations: The Federal rules restrict any use of the information to criminally investigate or prosecute any alcohol or drug abuse patient.[facility]In the event this information is protected by the Federal Confidentiality of Alcohol and Drug Abuse Patient Records regulations: The Federal rules restrict any use of the information to criminally investigate or prosecute any alcohol or drug abuse patient.[facility] CenterIn the event this information is protected by the Federal Confidentiality of Alcohol and Drug Abuse Patient Records regulations: The Federal rules restrict any use of the information to criminally investigate or prosecute any alcohol or drug abuse patient.[facility] CenterIn the event this information is protected by the Federal Confidentiality of Alcohol and Drug Abuse Patient Records regulations: The Federal rules restrict any use of the information to criminally investigate or prosecute any alcohol or drug abuse patient.[facility] CenterIn the event this information is protected by the Federal Confidentiality of Alcohol and Drug Abuse Patient Records regulations: The Federal rules restrict any use of the information to criminally investigate or prosecute any alcohol or drug abuse patient.[facility] CenterIn the event this information is protected by the Federal Confidentiality of Alcohol and Drug Abuse Patient Records regulations: The Federal rules restrict any use of the information to criminally investigate or prosecute any alcohol or drug abuse patient.[facility] CenterIn the event this information is protected by the Federal Confidentiality of Alcohol and Drug Abuse Patient Records regulations: The Federal rules restrict any use of the information to criminally investigate or prosecute any alcohol or drug abuse patient.[facility] CenterIn the event this information is protected by the Federal Confidentiality of Alcohol and Drug Abuse Patient Records regulations: The Federal rules restrict any use of the information to criminally investigate or prosecute any alcohol or drug abuse patient.[facility] CenterIn the event this information is protected by the Federal Confidentiality of Alcohol and Drug Abuse Patient Records regulations: The Federal rules restrict any use of the information to criminally investigate or prosecute any alcohol or drug abuse patient.[facility] CenterIn the event this information is protected by the Federal Confidentiality of Alcohol and Drug Abuse Patient Records regulations: The Federal rules restrict any use of the information to criminally investigate or prosecute any alcohol or drug abuse patient.[facility] CenterIn the event this information is protected by the Federal Confidentiality of Alcohol and Drug Abuse Patient Records regulations: The Federal rules restrict any use of the information to criminally investigate or prosecute any alcohol or drug abuse patient.[facility] CenterIn the event this information is protected by the Federal Confidentiality of Alcohol and Drug Abuse Patient Records regulations: The Federal rules restrict any use of the information to criminally investigate or prosecute any alcohol or drug abuse patient.[facility] CenterIn the event this information is protected by the Federal Confidentiality of Alcohol and Drug Abuse Patient Records regulations: The Federal rules restrict any use of the information to criminally investigate or prosecute any alcohol or drug abuse patient.[facility] CenterIn the event this information is protected by the Federal Confidentiality of Alcohol and Drug Abuse Patient Records regulations: The Federal rules restrict any use of the information to criminally investigate or prosecute any alcohol or drug abuse patient.[facility] CenterIn the event this information is protected by the Federal Confidentiality of Alcohol and Drug Abuse Patient Records regulations: The Federal rules restrict any use of the information to criminally investigate or prosecute any alcohol or drug abuse patient.[facility] CenterIn the event this information is protected by the Federal Confidentiality of Alcohol and Drug Abuse Patient Records regulations: The Federal rules restrict any use of the information to criminally investigate or prosecute any alcohol or drug abuse patient.[facility] CenterIn the event this information is protected by the Federal Confidentiality of Alcohol and Drug Abuse Patient Records regulations: The Federal rules restrict any use of the information to criminally investigate or prosecute any alcohol or drug abuse patient.[facility] CenterIn the event this information is protected by the Federal Confidentiality of Alcohol and Drug Abuse Patient Records regulations: The Federal rules restrict any use of the information to criminally investigate or prosecute any alcohol or drug abuse patient.[facility] CenterIn the event this information is protected by the Federal Confidentiality of Alcohol and Drug Abuse Patient Records regulations: The Federal rules restrict any use of the information to criminally investigate or prosecute any alcohol or drug abuse patient.[facility] CenterIn the event this information is protected by the Federal Confidentiality of Alcohol and Drug Abuse Patient Records regulations: The Federal rules restrict any use of the information to criminally investigate or prosecute any alcohol or drug abuse patient.[facility] CenterIn the event this information is protected by the Federal Confidentiality of Alcohol and Drug Abuse Patient Records regulations: The Federal rules restrict any use of the information to criminally investigate or prosecute any alcohol or drug abuse patient.[facility] CenterIn the event this information is protected by the Federal Confidentiality of Alcohol and Drug Abuse Patient Records regulations: The Federal rules restrict any use of the information to criminally investigate or prosecute any alcohol or drug abuse patient.[facility] CenterIn the event this information is protected by the Federal Confidentiality of Alcohol and Drug Abuse Patient Records regulations: The Federal rules restrict any use of the information to criminally investigate or prosecute any alcohol or drug abuse patient.[facility] CenterIn the event this information is protected by the Federal Confidentiality of Alcohol and Drug Abuse Patient Records regulations: The Federal rules restrict any use of the information to criminally investigate or prosecute any alcohol or drug abuse patient.[facility] CenterIn the event this information is protected by the Federal Confidentiality of Alcohol and Drug Abuse Patient Records regulations: The Federal rules restrict any use of the information to criminally investigate or prosecute any alcohol or drug abuse patient.[facility] CenterIn the event this information is protected by the Federal Confidentiality of Alcohol and Drug Abuse Patient Records regulations: The Federal rules restrict any use of the information to criminally investigate or prosecute any alcohol or drug abuse patient.[facility] Reason for Visit (unrecogniz ed section and content) Reason Comments Physical Specialty Diagnoses / Procedures Referred By Contac t Referred To Contact Family Practice / FAMILY MEDICINE Diagnoses Physical Procedures OFFICE/OUTPATIENT ESTABLISHED MOD MDM 30-39 MIN 4C MD Janet Calderon Alyson, FERNANDEZ.[employer] [address] [place] [address] Referral ID Status Reason Start Date Expiration Date Visits Re quested Visits Authorized [id number] Closed 02/25/2022 08/22/2022 1 1 Reason Comments Results Reason Comments UTI Low back pain and fr equency with urination x 1 week Reason Comments Hypertension Heartburn Pain, Back Lower back x months Reason Comments Covid19 Concern Reason Comments COVID concerns Reason Comments 6 Month Exam Reason Comments Refill Request Reason Comments Numbness numbness in Right le g at times Reason Comments Dizziness Hypertension Reason Comments Blood Pressure Blood pressure has b een elevated at home Reason Comments ER F/U UTI Reason Comments Follow Up To make sure bladder infection is gone Reason Comments labs showed dehydration and sodium chlor idelevels Review lab results Reason Comments Clearance Form from [facility] Reason Comments Patient Question Reason Comments Follow Up Reason Comments Follow Up Reason Comments Results concerns Reason Comments Patient Question Lab Orders Reason Comments Hypertension Reason Comments F/U 3 Month Reason Comments Cough sore throat, laryngi tis x 6 days Reason Comments Follow Up Room 122 mo f/u No f urther panic attacks after med changesNephrology managing HTNEKG TodayLOV 09/14/23 Derik Palps, Hypothyroid, Latrogenic Hyperthyroidism, Hyponatremia, HTNEKG 08/12/23ECHO 08/11/23ZIO 08/10/23 Reason Comments checking to see if labs are needed Reason Comments Follow Up Follow upBP has been running a little high. No symptoms Reason Comments BP Check Reports elevated BP' s at home, headaches and fatigue Reason Comments Results Orders Reason Comments Medication Problem Reason Comments Results Orders Reason Comments contact outside provider Reason Onset Date Comments Refill Request 10/11/2024 Reason Onset Date Comments Refill Request 11/09/2024 Reason Onset Date Comments Results 11/21/2024 Reason Comments Patient Update BP readings Reason Comments Patient Update Appointment Reason Comments Blood Pressure Reason Comments Blood Pressure Check Care Teams (unrecognized sec tion and content) Oven Baker Relationship Specialty Start Date End Date Sreekanth Cortez, DO [address] [place] [address] PCP - General Family Practice 02/28/16 Oven Baker Relationship Specialty Start Date End Date Sreekanth Cortez, DO [address] [place] [address] PCP - General Family Practice 02/28/16 Oven Baker Relationship Specialty Start Date End Date Sreekanth Cortez, DO [address] [place] [address] PCP - General Family Practice 02/28/16 Oven Baker Relationship Specialty Start Date End Date Sreekanth Cortez, DO [address] [place] [address] PCP - General Family Medicine 02/28/16 Oven Baker Relationship Specialty Start Date End Date Sreekanth Cortez, DO [address] [place] [address] PCP - General Family Medicine 02/28/16 Oven Baker Relationship Specialty Start Date End Date Sreekanth Cortez DO [address] [place] [address] PCP - General Family Medicine 02/28/16 Oven Baker Relationship Specialty Start Date End Date Sreekanth Cortez DO [address] [place] [address] PCP - General Family Medicine 02/28/16 Oven Baker Relationship Specialty Start Date End Date Sreekanth Cortez DO [address] [place] [address] PCP - General Family Medicine 02/28/16 Oven Baker Relationship Specialty Start Date End Date Sreekanth Cortez DO [address] [place] [address] PCP - General Family Medicine 02/28/16 Oven Baker Relationship Specialty Start Date End Date Sreekanth Cortez DO [address] [place] [address] PCP - General Family Medicine 02/28/16 Oven Baker Relationship Specialty Start Date End Date Sreekanth Cortez DO [address] [place] [address] PCP - General Family Medicine 02/28/16 Oven Baker Relationship Specialty Start Date End Date Sreekanth Cortez DO [address] [place] [address] PCP - General Family Medicine 02/28/16 Oven Baker Relationship Specialty Start Date End Date Sreekanth Cortez DO [address] [facility] [place] [address] PCP - General Family Medicine 02/28/16 Oven Baker Relationship Specialty Start Date End Date Sreekanth Cortez DO [address] [place] [address] PCP - General Family Medicine 02/28/16 Team Status: Active Member Role Status Dates Dr. Sreekanth Cortez DO Family Provider Active Dr. Sreekanth Cortez DO Primary Care Provider Active Team Status: Inactive Member Role Status Dates Dr. Sreekanth Cortez , DO Primary Care Provider Active Dr. Frederick Carrasco , DO Emergency Provider Active Oven Baker Relationship Specialty Start Date End Date Sreekanth Cortez DO [address] [place] [address] PCP - General Family Medicine 02/28/16 Oven Baker Relationship Specialty Start Date End Date Sreekanth Cortez DO [address] [place] [address] PCP - General Family Medicine 02/28/16 Oven Baker Relationship Specialty Start Date End Date Sreekanth Cortez DO [address] [place] [address] PCP - General Family Medicine 02/28/16 Team Status: Inactive Member Role Status Dates Dr. Sreekanth Cortez DO Primary Care Provider Active Dr. Frederick Carrasco , DO Attending Provider, Emergency P [place] Active Team Status: Inactive Member Role Status Dates Dr. Sreekanth Cortez DO Primary Care Provider Active Dr. Josselyn Adhikari , DO Emergency Provider Active Oven Baker Relationship Specialty Start Date End Date Sreekanth Cortez DO [address] [place] [address] PCP - General Family Medicine 02/28/16 Oven Baker Relationship Specialty Start Date End Date Sreekanth Cortez DO [address] [place] [address] PCP - General Family Medicine 02/28/16 Oven Baker Relationship Specialty Start Date End Date Sreekanth Cortez DO [address] [facility] [place] [address] PCP - General Family Medicine 02/28/16 Oven Baker Relationship Specialty Start Date End Date Sreekanth Cortez DO [address] [facility] [place] [address] PCP - General Family Medicine 02/28/16 Oven Baker Relationship Specialty Start Date End Date Sreekanth Cortez DO [address] [facility] [place] [address] PCP - General Family Medicine 02/28/16 Oven Baker Relationship Specialty Start Date End Date Sreekanth Cortez DO [address] [place] [address] PCP - General Family Medicine 02/28/16 Oven Baker Relationship Specialty Start Date End Date Sreekanth Cortez DO [address] [place] [address] PCP - General Family Medicine 02/28/16 Oven Baker Relationship Specialty Start Date End Date Sreekanth Cortez DO [address] [facility] [place] [address] PCP - General Family Medicine 02/28/16 Oven Baker Relationship Specialty Start Date End Date Sreekanth Cortez DO [address] [facility] [place] [address] PCP - General Family Medicine 02/28/16 Oven Baker Relationship Specialty Start Date End Date Sreekanth Cortez DO [address] [facility] [place] [address] PCP - General Family Medicine 02/28/16 Oven Baker Relationship Specialty Start Date End Date Sreekanth Cortez DO [address] [facility] [place] [address] PCP - General Family Medicine 02/28/16 Oven Baker Relationship Specialty Start Date End Date Sreekanth Cortez DO [address] [facility] [place] [address] PCP - General Family Medicine 02/28/16 Oven Baker Relationship Specialty Start Date End Date Sreekanth Cortez DO [address] [place] [address] PCP - General Family Medicine 02/28/16 Oven Baker Relationship Specialty Start Date End Date Sreekanth Cortez DO [address] [facility] [place] [address] PCP - General Family Medicine 02/28/16 Oven Baker Relationship Specialty Start Date End Date Sreekanth Cortez DO [address] [place] [address] PCP - General Family Medicine 02/28/16 Donita Estes, [employer]NEY.[employer] [address] [facility] [place] [address] Traveling Phlebotomist Family Medicine 07/30/24 Sergei Renner, FERNANDEZ.LABORER STORES [address] [facility] [place] [address] Traveling Phlebotomist Family Medicine 07/30/24 Oven Baker Relationship Specialty Start Date End Date Sreekanth Cortez DO [address] [place] [address] PCP - General Family Medicine 02/28/16 Donita Estes, [employer]ADEMARK ATTORNEY.[employer]ER [employer]ORES [address] [place] [address] Traveling Phlebotomist Family [facility] 07/30/24 ZurdoSergei, [employer]ADEMARK ATTORNEY.[employer]ER [employer]ORES [address] [place] [address] Traveling Phlebotomist Family [facility] 07/30/24 Oven Baker Relationship Specialty Start Date End Date Sreekanth Cortez DO [address] [place] [address] PCP - General Family Medicine 02/28/16 ZurdoSergei, [employer]ADEMARK ATTORNEY.[employer]ER [employer]ORES [address] [place] [address] Traveling Phlebotomist [facility] 07/30/24 Oven Baker Relationship Specialty Start Date End Date Sreekanth Cortez DO [address] [place] [address] PCP - General Family Medicine 02/28/16 ZurdoSergei, TRADEMARK ATTORNEY.[employer]ORER [employer]ORES [address] [place] [address] [facility] Oven Baker Relationship Specialty Start Date End Date Sreekanth Cortez DO [address] [place] [address] PCP - General Family Medicine 02/28/16 ZurdoSergei, [employer]ADEMARK ATTORNEY.LAB[employer]ER [employer]ORES [address] [place] [address] Traveling Phlebotomist Family [facility] 07/30/24 Oven Baker Relationship Specialty Start Date End Date Sreekanth Cortez DO [address] [place] [address] PCP - General Family Medicine 02/28/16 Sergei Renner, [employer]EMARK ATTORNEY.[employer]ER [employer]ORES [address] [place] [address] Traveling Phlebotomist Family [facility] 07/30/24 Oven Baker Relationship Specialty Start Date End Date Sreekanth Cortez DO [address] [place] [address] PCP - General Family Medicine 02/28/16 ZurdoSergei, [employer]ADEMARK ATTORNEY.[employer]ORER [employer]ORES [address] [place] [address] Traveling Phlebotomist Family [facility] 07/30/24 Margoth Chavez, [employer]ADEMARK ATTORNEY.[employer]ER [employer]ORES [address] [place] [address] [facility] Oven Baker Relationship Specialty Start Date End Date Sreekanth Cortez DO [address] [place] [address] PCP - General Family Medicine 02/28/16 Sergei Renner, [employer]ADEMARK ATTORNEY.[employer]ORER [employer]ORES [address] [place] [address] Traveling Phlebotomist Family [facility] 07/30/24 Margoth Chavez, [employer]ADEMARK ATTORNEY.[employer]ER [employer]ORES [address] [place] [address] Formerly [facility] 02/05/25 Goals (unrecognized section and content) Goals may be documented in a n alternate sectionGoals may be documented in an alternate section FOR RECORDS PERTAINING TO PATIENTS WHO ARE OR HAVE BEEN ENROLLED IN A CHEMICAL DEPENDENCY/SUBSTANCEABUSE PROGRAM, SOME INFORMATION MAY BE OMITTED. This clinical summary was aggregated from multiple sources. Caution should be exercised in using it in the provision of clinical care. This summary normalizes information from multiple sources, and as a consequence, information in this document may materially change the coding, format and clinical context of patient data. In addition, data may be omitted in some cases. CLINICAL DECISIONS SHOULD BE BASED ON THE PRIMARY CLINICAL RECORDS. [facility]. provides no warranty or guarantee of the accuracy or completeness of information in this document.
--- OUTSIDE RECORDS SUMMARY | 2025-02-22 07:07 | XMS RPT_ITS | CCD ---
Author Organization [facility] Care Team Providers Care Director Of Casework Name Role Phone Mercedes Granado Unavailable Unavailable PROVIDER, UNKNOWN Unavailable Unavailable PROVIDER, UNKNOWN Unavailable Unavailable JOE RIOS Unavailable Unavail able PROVIDER, UNKNOWN Unavailable Unavailable Cortez Sreekanth Unavailable Unavailable Cortez Sreekanth DOLYE Primary Care Provider Sreekanth Cortez DO Primary [...] DO Sreekanth L Primary Care Provider Franklyn LORRY WEIGHER.Donita COVARRUBIAS Unavailable Zrudo LORRY WEIGHER.Sergei COVARRUBIAS Unavailable Mary LORRY WEIGHER.Margoth COVARRUBIAS Unavailable DELILAH TRAORE Attending Unavailabl e [...] to adverse reactions to drug (disorder) 3 [facility] (20 sources) MILK CONTAINING PRODUCTS (DAIRY); Translations: [MILK CONTAINING PRODUCTS (DAIRY)] Propensity to adverse reactions to drug (disorder) 3 [facility] Medications Current Medications Medication Drug Class(es) [...] on above: Take 1 capsule by mo [facility] twice daily for 5 days. Take 1 capsule by [facility] four times daily for 5 days. [...] on above: Take 1 capsule by mo [facility] three times a day as needed. busPIRone [...] [Moles/Vol] 12 mmol/L 8 - 15 mmol/L [facility] Calcium [Mass/Vol] 9.5 mg/dL 8.5 - 10. 2 mg/dL [facility] Chloride [Moles/Vol] 100 mmol/L 98 - 10 7 mmol/L [facility] CO2 [Moles/Vol] 23 mmol/L 22 - 30 mmol/L [facility] Creatinine [Mass/Vol] 0.82 mg/dL 0.58 - 0.96 mg/dL [facility] GFR/1.73 sq M.predicted among non-blacks MDRD (S/P/Bld) [Vol rate/Area] 72 mL/min/{1.73_m2} - PINF [facility] Comment on above: Estimated Glomerular [...] 111 mg/dL High 74 - 99 mg/dL [facility] Comment on above: The [place] Diabete s Association (ADA) provides guidance for [...] Standards of Medical Care in Diabetes 2016, [place] Diabetes Association. Diabetes Care. 2016.39(Suppl 1). Interpretation and review of laboratory results Abnormal [facility] Potassium [Moles/Vol] 4.1 mmol/L 3.7 - 5.1 mmol/L [facility] Sodium [Moles/Vol] 135 mmol/L Low 136 - 144 mmol/L [facility] Urea nitrogen [Mass/Vol] 11 mg/dL 7 - 21 mg/dL [facility] Iron and Iron binding capaci ty panelon 02-20-2025 Interpretation and review of laboratory results Normal [facility] Iron [Mass/Vol] 64 ug/dL 41 - 186 ug/dL [facility] Iron binding capacity [Mass/Vol] 312 ug/dL 232 - 386 ug/dL [facility] Iron/TIBC [Molar ratio] 20.5 % 15.0 - 57.0 % [facility] No Panel Informationon 02-20 [facility] Basic metabolic 2000 panelon 02-19-2025 Anion gap [Moles/Vol] 12 mmol/L Normal 8-15 [facility] Comment on above: Order Comment: Speci men Type: BLOOD SPECIMENOrdering Facility: [facility] Address: [address] [place] [address] Performed By: #### 2 4321-2, 80545-9 ####[facility] LABCLIA [id number] [place] [address] [place] Calcium [Mass/Vol] 9.5 mg/dL Normal 8.5-10.2 [facility] Comment on above: Order Comment: Speci men Type: BLOOD SPECIMENOrdering Facility: [facility] Address: [address] [place] [address] Performed By: #### 2 4321-2, 28469-3 ####[facility] LABCLIA [id number] [place] [id number] [place] Chloride [Moles/Vol] 100 mmol/L Normal 98-107 [facility] Comment on above: Order Comment: Speci men Type: BLOOD SPECIMENOrdering Facility: [facility] Address: [address] [place] [address] Performed By: #### 2 4321-2, 97489-7 ####[facility] LABIA [id number] [place] [id number] [place] CO2 [Moles/Vol] 23 mmol/L Normal 22-30 [facility] Comment on above: Order Comment: Speci men Type: BLOOD SPECIMENOrdering Facility: [facility] Address: [address] [place] [address] Performed By: #### 2 4321-2, 54807-8 ####[facility] LABIA [id number] [place] [address] [place] Creatinine [Mass/Vol] 0.82 mg/dL Normal 0.58-0.96 [facility] Comment on above: Order Comment: Speci men Type: BLOOD SPECIMENOrdering Facility: [facility] Address: [address] [place] [address] Performed By: #### 2 4321-2, 75260-7 ####[facility] [id number] [place] [id number] [facility] Creatinine and Glomerular filtration rate.predicted panel (S/P/Bld) 72 mL/min/1.73m??? Normal >=60 [facility] Comment on above: Order Comment: Speci men Type: BLOOD SPECIMENOrdering Facility: [facility] Address: [address] [place] [address] Result Comment: Ihna mated Glomerular Filtration Rate (eGFR) is calculated [...] actual GFR. Performed By: #### 2 4321-2, 90086-7 ####[facility] LABIA [id number] [address] [address] [place] Glucose [Mass/Vol] 111 mg/dL High 74-99 [facility] Comment on above: Order Comment: Johanne soto Type: BLOOD SPECIMENOrdering Facility: [facility] Address: [address] [place] [address] Result Comment: The [place] Diabetes Association (ADA) provides guidance for cutoff [...] Standards of Medical Care in Diabetes 2016, [place] Diabetes Association. Diabetes Care. 2016.39(Suppl 1). Performed By: #### 2 4321-2, 15478-4 ####[facility] LABIA [id number] [place] [address] [place] Potassium [Moles/Vol] 4.1 mmol/L Normal 3.7-5.1 [facility] Comment on above: Order Comment: Johanne soto Type: BLOOD SPECIMENOrdering Facility: [facility] Address: [address] [place] [id number] Performed By: #### 2 4321-2, 99976-5 ####[facility] [id number] [place] [address] [place] Sodium [Moles/Vol] 135 mmol/L Low 136-144 [facility] Comment on above: Order Comment: Johanne soto Type: BLOOD SPECIMENOrdering Facility: [facility] Address: [address] [place] [id number] Performed By: #### 2 4321-2, 94835-5 ####[facility] LABCLIA [id number] [place] [id number] [place] Urea nitrogen [Mass/Vol] 11 mg/dL Normal 7-21 [facility] Comment on above: Order Comment: Speci men Type: BLOOD SPECIMENOrdering Facility: [facility] Address: [address] [place] [address] Performed By: #### 2 4321-2, 40114-0 ####[facility] LABCLIA [id number] [place] [id number] [place] CBC W Auto Differential pane l (Bld)on 02-19-2025 Basophils (Bld) [#/Vol] 0.05 10*3/uL [facility] Basophils/100 WBC (Bld) 0.6 % [facility] Differential cell count method Nom (Bld) Auto [facility] Eosinophils (Bld) [#/Vol] 0.51 10*3/uL High [facility] Eosinophils/100 WBC (Bld) 6.1 % [facility] Erythrocyte distribution width (RBC) [Ratio] 12.4 % 11.5 - 15.0 % [facility] Hematocrit (Bld) [Volume fraction] 38.1 % 36.0 - 46.0 % [facility] Hemoglobin (Bld) [Mass/Vol] 13.1 g/dL 11.5 - 15.5 g/dL [facility] Immature granulocytes (Bld) [#/Vol] NINF [facility] Immature granulocytes/100 WBC (Bld) 0.2 % [facility] Interpretation and review of laboratory results Abnormal [facility] Lymphocytes (Bld) [#/Vol] 1.8 10*3/uL [facility] Lymphocytes/100 WBC (Bld) 21.6 % [facility] MCH (RBC) [Entitic mass] 31.3 pg 26.0 - 34.0 pg [facility] MCHC (RBC) [Mass/Vol] 34.4 g/dL 30.5 - 36.0 g/dL [facility] MCV (RBC) [Entitic vol] 90.9 fL 80.0 - 100.0 fL [facility] Monocytes (Bld) [#/Vol] 0.86 10*3/uL [facility] Monocytes/100 WBC (Bld) 10.3 % C [facility] Neutrophils (Bld) [#/Vol] 5.09 10*3/uL [facility] Neutrophils/100 WBC (Bld) 61.2 % [facility] Nucleated RBC (Bld) [#/Vol] NINF [facility] Nucleated RBC/100 WBC (Bld) [Ratio] 0 % /100 WBC [facility] Platelet mean volume (Bld) [Entitic vol] 11.2 fL 9.0 - 12.7 fL [facility] Platelets (Bld) [#/Vol] 242 10*3/uL [facility] RBC (Bld) [#/Vol] 4.19 10*6/uL 3.90 - 5.2 0 m/uL [facility] WBC (Bld) [#/Vol] 8.33 10*3/uL [facility] Basophils (Bld) [#/Vol] 0.05 10*3/uL Normal <0.11 [facility] Comment on above: Order Comment: Speci men Type: BLOOD SPECIMENOrdering Facility: [facility] Address: [address] [place] [address] Performed By: #### 5 7021-8 ####[facility] LABIA [id number] [place] [address] [place] Basophils/100 WBC (Bld) 0.6 % Normal [facility] Comment on above: Order Comment: Speci men Type: BLOOD SPECIMENOrdering Facility: [facility] Address: [address] [place] [address] Performed By: #### 5 7021-8 ####[facility] LABIA [id number] [place] [address] [place] Differential cell count method Nom (Bld) Auto Normal [facility] Comment on above: Order Comment: Speci men Type: BLOOD SPECIMENOrdering Facility: [facility] Address: [address] [place] [address] Performed By: #### 5 7021-8 ####[facility] LABCLIA [id number] [address], [place] [address] [place] Eosinophils (Bld) [#/Vol] 0.51 10*3/uL High <0.46 [facility] Comment on above: Order Comment: Speci men Type: BLOOD SPECIMENOrdering Facility: [facility] Address: [address] [place] [address] Performed By: #### 5 7021-8 ####[facility] LABCLIA [id number] [address], [place] [address] [place] Eosinophils/100 WBC (Bld) 6.1 % Normal [facility] Comment on above: Order Comment: Speci men Type: BLOOD SPECIMENOrdering Facility: [facility] Address: [address] [place] [address] Performed By: #### 5 7021-8 ####[facility] LABCLIA [id number] [address], [facility] [place] Erythrocyte distribution width (RBC) [Ratio] 12.4 % Normal 11.5-15.0 [facility] Comment on above: Order Comment: Speci men Type: BLOOD SPECIMENOrdering Facility: [facility] Address: [address] [place] [address] Performed By: #### 5 7021-8 ####[facility] LABCLIA [id number] [address] [place] [address] [place] Hematocrit (Bld) [Volume fraction] 38.1 % Normal 36.0-46.0 [facility] Comment on above: Order Comment: Speci men Type: BLOOD SPECIMENOrdering Facility: [facility] Address: [address] [place] [address] Performed By: #### 5 7021-8 ####[facility] LABCLIA [id number] [address] [place] [address] [place] Hemoglobin (Bld) [Mass/Vol] 13.1 g/dL Normal 11.5-15.5 [facility] Comment on above: Order Comment: Speci men Type: BLOOD SPECIMENOrdering Facility: [facility] Address: [address] [place] [address] Performed By: #### 5 7021-8 ####[facility] LABCLIA [id number] [facility] [place] [address] [place] Immature granulocytes (Bld) [#/Vol] 10*3/uL Normal <0.10 [facility] Comment on above: Order Comment: Speci men Type: BLOOD SPECIMENOrdering Facility: [facility] Address: [address] [place] [address] Performed By: #### 5 7021-8 ####[facility] LABCLIA [id number] [place] [address] [place] Immature granulocytes/100 WBC (Bld) 0.2 % Normal [facility] Comment on above: Order Comment: Speci men Type: BLOOD SPECIMENOrdering Facility: [facility] Address: [address] [place] [address] Performed By: #### 5 7021-8 ####[facility] LABCLIA [id number] [place] [address] [place] Lymphocytes (Bld) [#/Vol] 1.80 10*3/uL Normal 1.00-4.00 [facility] Comment on above: Order Comment: Speci men Type: BLOOD SPECIMENOrdering Facility: [facility] Address: [address] [place] [address] Performed By: #### 5 7021-8 ####[facility] LABCLIA [id number] [place] [address] [place] Lymphocytes/100 WBC (Bld) 21.6 % Normal [facility] Comment on above: Order Comment: Speci men Type: BLOOD SPECIMENOrdering Facility: [facility] Address: [address] [place] [address] Performed By: #### 5 7021-8 ####[facility] LABIA [id number] [place] [address] [place] MCH (RBC) [Entitic mass] 31.3 pg Normal 26.0-34.0 [facility] Comment on above: Order Comment: Speci men Type: BLOOD SPECIMENOrdering Facility: [facility] Address: [address] [place] [address] Performed By: #### 5 7021-8 ####[facility] LABIA [id number] [place] [address] [place] MCHC (RBC) [Mass/Vol] 34.4 g/dL Normal 30.5-36.0 [facility] Comment on above: Order Comment: Speci men Type: BLOOD SPECIMENOrdering Facility: [facility] Address: [address] [place] [address] Performed By: #### 5 7021-8 ####[facility] LABIA [id number] [place] [address] [place] MCV (RBC) [Entitic vol] 90.9 fL Normal 80.0-100.0 C [facility] Comment on above: Order Comment: Speci men Type: BLOOD SPECIMENOrdering Facility: [facility] Address: [address] [place] [address] Performed By: #### 5 7021-8 ####[facility] LABIA [id number] [place] [address] [place] Monocytes (Bld) [#/Vol] 0.86 10*3/uL Normal <0.87 [facility] Comment on above: Order Comment: Speci men Type: BLOOD SPECIMENOrdering Facility: [facility] Address: [address] [place] [address] Performed By: #### 5 7021-8 ####[facility] LABCLIA [id number] [place] [id number] [place] Monocytes/100 WBC (Bld) 10.3 % Normal [facility] Comment on above: Order Comment: Speci men Type: BLOOD SPECIMENOrdering Facility: [facility] Address: [address] [place] [address] Performed By: #### 5 7021-8 ####[facility] LABCLIA [id number] [place] [address] [place] Neutrophils (Bld) [#/Vol] 5.09 10*3/uL Normal 1.45-7.50 [facility] Comment on above: Order Comment: Speci men Type: BLOOD SPECIMENOrdering Facility: [facility] Address: [address] [place] [address] Performed By: #### 5 7021-8 ####[facility] LABIA [id number] [place] [address] [place] Neutrophils/100 WBC (Bld) 61.2 % Normal [facility] Comment on above: Order Comment: Speci men Type: BLOOD SPECIMENOrdering Facility: [facility] Address: [address] [place] [address] Performed By: #### 5 7021-8 ####[facility] LABIA [id number] [place] [address] [place] Nucleated RBC (Bld) [#/Vol] 10*3/uL Normal <0.01 [facility] Comment on above: Order Comment: Speci men Type: BLOOD SPECIMENOrdering Facility: [facility] Address: [address] [place] [address] Performed By: #### 5 7021-8 ####[facility] LABCLIA [id number] [place] [address] [place] Nucleated RBC/100 WBC (Bld) [Ratio] 0.0 /100 WBC Normal [facility] Comment on above: Order Comment: Speci men Type: BLOOD SPECIMENOrdering Facility: [facility] Address: [address] [place] [address] Performed By: #### 5 7021-8 ####[facility] LABIA [id number] [place] [address] [place] Platelet mean volume (Bld) [Entitic vol] 11.2 fL Normal 9.0-12.7 [facility] Comment on above: Order Comment: Speci men Type: BLOOD SPECIMENOrdering Facility: [facility] Address: [address] [place] [address] Performed By: #### 5 7021-8 ####[facility] LABIA [id number] [place] [address] [place] Platelets (Bld) [#/Vol] 242 10*3/uL Normal 150-400 [facility] Comment on above: Order Comment: Speci men Type: BLOOD SPECIMENOrdering Facility: [facility] Address: [address] [place] [address] Performed By: #### 5 7021-8 ####[facility] LABIA [id number] [place] [address] [place] RBC (Bld) [#/Vol] 4.19 10*6/uL Normal 3.90-5.20 [facility] Comment on above: Order Comment: Speci men Type: BLOOD SPECIMENOrdering Facility: [facility] Address: [address] [place] [address] Performed By: #### 5 7021-8 ####[facility] LABIA [id number] [place] [address] [place] WBC (Bld) [#/Vol] 8.33 10*3/uL Normal 3.70-11.00 [facility] Comment on above: Order Comment: Speci men Type: BLOOD SPECIMENOrdering Facility: [facility] Address: [address] [place] [address] Performed By: #### 5 7021-8 ####[facility] [place] [id number] [address] [place] CNOVon 02-19-2025 CNOV Office Visit (FAMPWS ) CASANDRA HENRY ([id number]) 1940 F Date Time Provider Department 02/19/25 12:20 PM MARGOTH CHAVEZ During your visit today, we recorded the following information about you: Pulse Respiration Blood pressure Weight 68/minute 16/minute 170/80 64 kg Margoth Chavez APRN.[employer] 02/19/2025 5:54 PM Signed This is a [...] SPEC WHEN PFRMD 12/05/2013 Colonoscopy done in [facility] FLX W/REMOVAL LESION BY HOT BX FORCEPS [...] acute distress (more content not included)... Normal [facility] Iron and Iron binding capaci ty panelon 02-19-2025 Iron [Mass/Vol] 64 ug/dL Normal 41-186 [facility] Comment on above: Order Comment: Speci men Type: BLOOD SPECIMENOrdering Facility: [facility] Address: [address] [place] [address] Performed By: #### 2 4321-2, 76042-8 ####[facility] LABCLIA [id number] [place] [address] [place] Iron binding capacity [Mass/Vol] 312 ug/dL Normal 232-386 [facility] Comment on above: Order Comment: Speci men Type: BLOOD SPECIMENOrdering Facility: [facility] Address: [address] [place] [address] Performed By: #### 2 4321-2, 19158-0 ####[facility] LABCLIA [id number] [place] [address] [place] Iron/TIBC [Molar ratio] 20.5 % Normal 15.0-57.0 C [facility] Comment on above: Order Comment: Speci men Type: BLOOD SPECIMENOrdering Facility: [facility] Address: [address] [facility] [place] [address] Performed By: #### 2 4321-2, 54706-7 ####[facility] LABCLIA [id number] ELIZA HERMOSILLO [id number] [place] CNOVon 02-05-2025 CNOV Office Visit (FAMPWS ) CASANDRA HENRY ([id number]) 1940 F Date Time Provider Department 02/05/25 9:00 AM [facility] During your visit today, we recorded [...] Monitor serum sodium levels regularly. Recording using Yidio software for draft documentation of the visit was discussed with the patient/authorized special service representative; all questions welcomed and answered. Patient/authorized special service representative agreed to proceed Allergies As of [...] 1 hydr (more content not included)... Normal [facility] CNOVon 12-25-2024 CNOV Office Visit (FAMJuneWS ) CASANDRA HENRY ([id number]) 1940 F Date Time Provider Department 12/25/24 [...] twice a (more content not included)... Normal [facility] CNPNon 12-25-2024 CNPN Telephone (FAMWS) ELAINECASANDRA ([id number]) 1940 F Date Time Provider Department 12/25/24 [facility] During your visit today, we recorded the [...] Encounter Status:Closed by CHYNA RAMIREZ on 12/25/24 [facility] CASANDRA HENRY ([id number]) 1940 F Date Time Provider Department 11/21/24 [facility] During your visit today, we recorded [...] by JOEL (more content not included)... Normal [facility] Basic metabolic 2000 panelon 11-16-2024 Anion gap [Moles/Vol] 11 mmol/L Normal 8-15 [facility] Comment on above: Order Comment: Speci men Type: BLOOD SPECIMENOrdering Facility: [address] Address: [address] [place] [address] Performed By: #### 3 016-3, 302-7, 96291-5 ####[facility] [id number] [place] [address] [place] Calcium [Mass/Vol] 9.3 mg/dL Normal 8.5-10.2 [facility] Comment on above: Order Comment: Speci men Type: BLOOD SPECIMENOrdering Facility: [facility] [place] Address: [address] [place] [address] Performed By: #### 3 016-3, 3024-7, 81363-0 ####[facility] [id number] [place] [address] [place] Chloride [Moles/Vol] 102 mmol/L Normal 98-107 [facility] Comment on above: Order Comment: Speci men Type: BLOOD SPECIMENOrdering Facility: Address: [address] [place] [address] Performed By: #### 3 016-3, 7, 08567-0 ####[facility] LABORATORYCLIA [id number] [place] [id number] [place] [facility] CO2 [Moles/Vol] 25 mmol/L Normal 22-30 [facility] Comment on above: Order Comment: Speci men Type: BLOOD SPECIMENOrdering Facility: Address: [facility] [place] [address] Performed By: #### 3 016-3, 3024-02, ####[facility] LABORATORYCLIA [id number] [address] [facility] Creatinine [Mass/Vol] 0.85 mg/dL Normal 0.58-0.96 [facility] Comment on above: Order Comment: Speci men Type: BLOOD SPECIMENOrdering Facility: Address: [facility] [place] [id number] Performed By: #### 3 016-3, 3024-02, ####[facility] LABORATORYCLIA [id number] [address] Creatinine and Glomerular filtration rate.predicted panel (S/P/Bld) 69 mL/min/1.73m??? Normal >=60 [facility] Comment on above: Order Comment: Speci men Type: BLOOD SPECIMENOrdering Facility: Address: [address] [place] [address] Result Comment: Hina mated Glomerular Filtration Rate [...] GFR. Performed By: #### 3 016-3, 7, 76579-2 ####[facility] LABORATORYCLIA [id number] [place] [id number] [place] Glucose [Mass/Vol] 89 mg/dL Normal 74-99 [facility] Comment on above: Order Comment: Speci men Type: BLOOD SPECIMENOrdering Facility: [address] Address: [address] [place] [address] Result Comment: The [place] Diabetes Association (ADA) provides guidance for cutoff [...] Standards of Medical Care in Diabetes 2016, [place] [employer]. Diabetes Care. 2016.39(Suppl 1). Performed By: #### 3 016-3, 3024-7, ####[facility] LABORATORYCLIA [id number] [place] [address] [place] Potassium [Moles/Vol] 4.3 mmol/L Normal 3.7-5.1 [facility] Comment on above: Order Comment: Speci men Type: BLOOD SPECIMENOrdering Facility: [facility] [place] Address: [address] [place] [address] Performed By: #### 3 016-3, 3024-02, 41197-1 ####[facility] LABORATORYCLIA [id number] [place] [address] [place] Sodium [Moles/Vol] 138 mmol/L Normal 136-144 [facility] Comment on above: Order Comment: Speci men Type: BLOOD SPECIMENOrdering Facility: [address] Address: [address] [place] [address] Performed By: #### 3 016-3, 3027, 02032-3 ####[facility] LABORATORYCLIA [id number] [place] [address] [place] Urea nitrogen [Mass/Vol] 8 mg/dL Normal 7-21 [facility] Comment on above: Order Comment: Speci men Type: BLOOD SPECIMENOrdering Facility: Address: [address] [place] [address] Performed By: #### 3 016-3, 3024-7, 18708-5 ####[facility] LABORATORYCLIA [id number] [place] [address] [place] Osmolality SerPlon Osmolality [Osmolality] 283 mosm/kg Normal 275-300 [facility] Comment on above: Order Comment: Speci men Type: BLOOD SPECIMENOrdering Facility: Address: [address] [place] [address] Performed By: #### 2 692-2 ####[facility] LABCLIA [id number] [place] [address] [place] Osmolality Uron 11-16-2024 Osmolality (U) [Osmolality] 210 mosm/kg Normal 50-1200 [facility] Comment on above: Order Comment: Speci men Type: URINE SPECIMENOrdering Facility: Address: [facility] [place] [address] Performed By: #### 2 695-5 ####[facility] LABCLIA [id number] [place] [id number] [place] Prot Ur-mCncon 11-16-2024 Protein (U) [Mass/Vol] 6 mg/dL Normal 0-20 [facility] Comment on above: Order Comment: Speci men Type: URINE SPECIMENOrdering Facility: Address: [facility] [place] [address] Performed By: #### 3 5678-2, 2888-6 ####[facility] LABCLIA [id number] [address] [address] [place] Sodium ?Tm Ur-sCncon 025 Sodium Unsp time (U) [Moles/Vol] 84 mmol/L Normal 14-216 [facility] Comment on above: Order Comment: Speci men Type: URINE SPECIMENOrdering Facility: Address: [address] [place] [address] Performed By: #### 3 5678-2, 2888-6 ####[facility] LABCLIA [id number] [place] [address] [place] T4 Free SerPl-mCncon 025 Free T4 [Mass/Vol] 1.9 ng/dL High 0.9-1.7 [facility] Comment on above: Order Comment: Speci men Type: BLOOD SPECIMENOrdering Facility: [facility] Address: [address] [place] [address] Performed By: #### 3 016-3, 3024-7, 61031-8 ####[facility] LABORATORYCLIA [id number] [address] [place] TSH SerPl-aCncon 11-16-2024 TSH Qn 0.241 m[IU]/L Low 0.270-4.200 [facility] Comment on above: Order Comment: Speci men Type: BLOOD SPECIMENOrdering Facility: [facility] Address: [address] [place] [address] Performed By: #### 3 016-3, 3024-7, 14961-7 ####[facility] LABORATORYCLIA [id number] [address] [place] CNOVon 08-08-2024 CNOV Office Visit (FAMPWS ) CASANDRA HENRY ([id number]) 1940 F Date Time Provider Department 08/08/24 [...] SPEC WHEN PFRMD 12/05/2013 Colonoscopy done in [facility] FLX W/REMOVAL LESION BY HOT BX FORCEPS [...] bring results (more content not included)... Normal [facility] 07-12-2024 SATISHN Telephone (FAMPWS) CASANDRA HENRY ([id number]) 1940 F Date Time Provider Department 07/12/24 [facility] During your visit today, we recorded [...] name of levothyroxine 100 mcg. Patient uses [facility] as pharmacy. ENEDELIA Stearns Rebekah, APRN.CNP 07/13/2024 11:54 AM Signed SynthroidJUDITH sent. Recheck thyroid labs in about 6 weeks. The following approved medication requests have been transmitted electronically. Requested Prescriptions Signed Prescriptions Disp Refills SYNTHROID 100 mcg tablet 30 tablet 2 Sig: Take 1 tablet by mouth once daily. Take on empty stomach Authorizing Provider: SERGEI RENNER APRN.FOUNDRY EQUIPMENT MECHANIC Roxanne Felix RN 07/13/2024 1:57 PM Signed Patient notified of provider's instructions and that prescription sent to pharmacy. Patient verbalizes understanding. Roxanne Felix RN Allergies As of Date: 07/12/2024 Noted Allergy Reaction GLUTEN 08/09/2023 3 - Cough MILK CONTAINING PRODUCTS (DAIRY) 08/09/2023 3 - Cough Date Reviewed: 04/28/2024 Reviewed by: Sergei Renner APRN.FOUNDRY EQUIPMENT MECHANIC - Fully Assessed Reason for Visit: Results [95] Orders [681] Primary Visit Diagnosis:Hypothyroidi sm, unspecified type [E03.9] Order(s):SYNTHROID 100 mcg tabletTake 1 tablet by mouth once daily. Take on empty stomachDisp: 30 tabletRfl: 2 THYROID STIMULATING HORMONE [SQTSH] Order #: [id number] FUTURE T4 FREE/FREE THYROXINE [SQFT4] Order #: [id number] FUTURE Prescriptions as of 07/13/2024 - SYNTHROID [...] Status:Closed by ROXANNE FELIX on 07/13/24 Normal [facility] CBC panel Auto (Bld)on 07-10 Erythrocyte distribution width (RBC) [Ratio] 12.6 % Normal 11.5-15.0 [facility] Comment on above: Order Comment: Speci men Type: BLOOD SPECIMENOrdering Facility: [facility] Address: [address] [place] [address] Performed By: #### 5 8410-2 ####[facility] LABIA [id number] [place] [address] [place] Hematocrit (Bld) [Volume fraction] 41.8 % Normal 36.0-46.0 [facility] Comment on above: Order Comment: Speci men Type: BLOOD SPECIMENOrdering Facility: [facility] Address: [address] [place] [address] Performed By: #### 5 8410-2 ####[facility] LABCLIA [id number] [place] [address] [place] Hemoglobin (Bld) [Mass/Vol] 13.8 g/dL Normal 11.5-15.5 [facility] Comment on above: Order Comment: Speci men Type: BLOOD SPECIMENOrdering Facility: [facility] Address: [address] [place] [address] Performed By: #### 5 8410-2 ####[facility] LABIA [id number] [place] [address] [place] MCH (RBC) [Entitic mass] 30.8 pg Normal 26.0-34.0 [facility] Comment on above: Order Comment: Speci men Type: BLOOD SPECIMENOrdering Facility: [facility] Address: [address] [place] [address] Performed By: #### 5 8410-2 ####[facility] LABIA [id number] [place] [address] [place] MCHC (RBC) [Mass/Vol] 33.0 g/dL Normal 30.5-36.0 [facility] Comment on above: Order Comment: Speci men Type: BLOOD SPECIMENOrdering Facility: [facility] Address: [address] [place] [address] Performed By: #### 5 8410-2 ####[facility] LABIA [id number] [place] [address] [place] MCV (RBC) [Entitic vol] 93.3 fL Normal 80.0-100.0 [facility] Comment on above: Order Comment: Speci men Type: BLOOD SPECIMENOrdering Facility: [facility] Address: [address] [place] [address] Performed By: #### 5 8410-2 ####[facility] LABIA [id number] [place] [address] [place] Nucleated RBC (Bld) [#/Vol] 10*3/uL Normal <0.01 [facility] Comment on above: Order Comment: Speci men Type: BLOOD SPECIMENOrdering Facility: [facility] Address: [address] [place] [address] Performed By: #### 5 8410-2 ####[facility] LABCLIA [id number] [place] [address] [place] Platelet mean volume (Bld) [Entitic vol] 9.7 fL Normal 9.0-12.7 [facility] Comment on above: Order Comment: Speci men Type: BLOOD SPECIMENOrdering Facility: [facility] Address: [address] [place] [address] Performed By: #### 5 8410-2 ####[facility] LABCLIA [id number] [place] [address] [place] Platelets (Bld) [#/Vol] 294 10*3/uL Normal 150-400 [facility] Comment on above: Order Comment: Speci men Type: BLOOD SPECIMENOrdering Facility: [facility] Address: [address] [place] [address] Performed By: #### 5 8410-2 ####[facility] LABCLIA [id number] [place] [address] [place] RBC (Bld) [#/Vol] 4.48 10*6/uL Normal 3.90-5.20 [facility] Comment on above: Order Comment: Speci men Type: BLOOD SPECIMENOrdering Facility: [facility] Address: [address] [place] [address] Performed By: #### 5 8410-2 ####[facility] LABCLIA [id number] [place] [address] [place] WBC (Bld) [#/Vol] 9.66 10*3/uL Normal 3.70-11.00 [facility] Comment on above: Order Comment: Speci men Type: BLOOD SPECIMENOrdering Facility: [facility] Address: [address] [place] [address] Performed By: #### 5 8410-2 ####[facility] [id number] [place] [id number] [place] T4 Free SerPl-mCncon 024 Free T4 [Mass/Vol] 1.5 ng/dL Normal 0.9-1.7 [facility] Comment on above: Order Comment: Speci men Type: BLOOD SPECIMENOrdering Facility: [facility] Address: [address] [place] [address] Performed By: #### 3 024-7, 3016-3 ####[facility] [id number] [place] [address] [place] TSH SerPl-aCncon 07-10-2024 TSH Qn 4.450 m[IU]/L High 0.270-4.200 [facility] Comment on above: Order Comment: Speci men Type: BLOOD SPECIMENOrdering Facility: [facility] Address: [address] [place] [address] Performed By: #### 3 024-7, 3013 ####[facility] [id number] [address] [place] CNPLorelei 06-06-2024 [facility] CASANDRA HENRY ([id number]) 1940 F Date Time Provider Department 06/06/24 [facility] During your visit today, we recorded [...] Encounter Status:Closed by SERGEI RENNER on 06/06/24 [facility] 05-02-2024 CNPN Telephone (FAMPWS) CASANDRA HENRY ([id number]) 1940 F Date Time Provider Department 05/02/24 SERGEI RENNER [facility] During your visit today, we recorded the [...] Date Reviewed: 04/28/2024 Reviewed by: Sergei Renner APRN.FOUNDRY EQUIPMENT MECHANIC - Fully Assessed Reason for Visit: Results [95] Orders [681] Primary Visit Diagnosis:Hypothyroidi sm, unspecified type [E03.9] Order(s):THYROID STIMULATING HORMONE [SQTSH] Order #: [id number] FUTURE T4 FREE/FREE THYROXINE [SQFT4] Order #: [id number] FUTURE levothyroxine (SYNTHROID) 100 mcg tabletTake 1 [...] Encounter Status:Closed by LAURA LISA on 05/02/24 [facility] CNOVbilly 04-28-2024 CNOV Office Visit (FAMPWS ) ANURAGTAMEKA ValdezA ([id number]) 1940 F Date Time Provider Department 04/28/24 [...] Sees Dr. Stoney Ray, he comes to [facility] once a week on Wednesdays. Past medical history, appointments, medications, allergies reviewed. Previous Medical History PAST MEDICAL HISTORY No date: Acid reflux No date: Hiatal hernia No date: Hypertension No date: Hypothyroid No date: Palpitation Previous Surgical History PAST SURGICAL HISTORY 2000: CARPAL TUNNEL Comment: bilateral 12/05/2013: COLONOSCOPY FLX DX W/COLLJ SPEC WHEN PFRMD Comment: Colonoscopy done in [place] 02/19/2020: COLSC FLX W/REMOVAL LESION BY HOT [...] - LEVOTHYROXINE (more content not included)... Normal [facility] Hellen 04-28-2024 CNPN Telephone (FAMPWS) CASANDAR HENRY ([id number]) 1940 F Date Time Provider Department 04/28/24 SERGEI RENNER During your visit today, we recorded the following information about you: Sergei Renner APRN.SATISH 04/28/2024 1:57 PM Signed Please contact Dr. 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 Patient's blood pressure at [...] Status:Closed by DONITA ESTES on 07/19/24 Normal [facility] Comprehensive metabolic 2000 panelon 04-28-2024 Albumin [Mass/Vol] 4.4 g/dL Normal 3.9-4.9 [facility] Comment on above: Order Comment: Speci men Type: BLOOD SPECIMENOrdering Facility: [facility] Address: [address] [place], [place] [address] Performed By: #### 3 024-7, 3016-3, 30854-1, 35983-1 ####[facility] LABCLIA [id number] [place] [address] [place] ALP [Catalytic activity/Vol] 133 U/L High 34-123 [facility] Comment on above: Order Comment: Speci men Type: BLOOD SPECIMENOrdering Facility: [facility] Address: [address] [place] [address] Performed By: #### 3 024-7, 3016-3, 60209-4, 97613-9 ####[facility] LABCLIA [id number] [place] [address] [place] ALT [Catalytic activity/Vol] 14 U/L Normal 7-38 [facility] Comment on above: Order Comment: Speci men Type: BLOOD SPECIMENOrdering Facility: [facility] Address: [address] [place] [address] Performed By: #### 3 024-7, 3016-3, 60730-4, 31573-4 ####[facility] LABIA [id number] [place] [address] [place] Anion gap [Moles/Vol] 14 mmol/L Normal 8-15 [facility] Comment on above: Order Comment: Speci men Type: BLOOD SPECIMENOrdering Facility: [facility] Address: [address] [place] [address] Performed By: #### 3 024-7, 3016-3, 49650-2, 45810-0 ####[facility] LABCLIA [id number] [place] [address] [place] AST [Catalytic activity/Vol] 20 U/L Normal 13-35 [facility] Comment on above: Order Comment: Speci men Type: BLOOD SPECIMENOrdering Facility: [facility] Address: [address] [place] [address] Performed By: #### 3 024-7, 3016-3, 63746-9, 93425-4 ####[facility] LABCLIA [id number] [place] [address] [place] Bilirubin [Mass/Vol] 1.4 mg/dL High 0.2-1.3 [facility] Comment on above: Order Comment: Speci men Type: BLOOD SPECIMENOrdering Facility: [facility] Address: [address] [place] [address] Performed By: #### 3 024-7, 3016-3, 01550-9, 57909-0 ####[facility] LABCLIA [id number] [place] [address] [place] Calcium [Mass/Vol] 9.7 mg/dL Normal 8.5-10.2 [facility] Comment on above: Order Comment: Speci men Type: BLOOD SPECIMENOrdering Facility: [facility] Address: [address] [place] [address] Performed By: #### 3 024-7, 3016-3, 86994-1, 41079-8 ####[facility] LABCLIA [id number] [place] [address] [place] Chloride [Moles/Vol] 97 mmol/L Low 98-107 [facility] Comment on above: Order Comment: Speci men Type: BLOOD SPECIMENOrdering Facility: [facility] Address: [address] [place] [address] Performed By: #### 3 024-7, 3016-3, 72689-1, 98937-9 ####[facility] LABCLIA [id number] [place] [address] [place] CO2 [Moles/Vol] 25 mmol/L Normal 22-30 [facility] Comment on above: Order Comment: Speci men Type: BLOOD SPECIMENOrdering Facility: [facility] Address: [address] [place] [address] Performed By: #### 3 024-7, 3016-3, 99585-4, 70731-9 ####[facility] LABCLIA [id number] [address] [address] [place] Creatinine [Mass/Vol] 0.85 mg/dL Normal 0.58-0.96 [facility] Comment on above: Order Comment: Johanne soto Type: BLOOD SPECIMENOrdering Facility: [facility] Address: [address] [place] [address] Performed By: #### 3 024-7, 3016-3, 02947-2, 30418-3 ####[facility] LABCLIA [id number] [place] [address] [place] Creatinine and Glomerular filtration rate.predicted panel (S/P/Bld) 69 mL/min/1.73m??? Normal >=60 [facility] Comment on above: Order Comment: Johanne soto Type: BLOOD SPECIMENOrdering Facility: [facility] Address: [address] [place] [address] Result Comment: Hina mated Glomerular Filtration Rate [...] GFR. Performed By: #### 3 024-7, 3016-3, 12112-7, 43803-4 ####[facility] LABCLIA [id number] [place] [address] [place] Glucose [Mass/Vol] 93 mg/dL Normal 74-99 [facility] Comment on above: Order Comment: Johanne charles Type: BLOOD SPECIMENOrdering Facility: [facility] Address: [address] [place] [address] Result Comment: The [place] Diabetes Association (ADA) provides guidance for cutoff [...] Standards of Medical Care in Diabetes 2016, [place] [employer]. Diabetes Care. 2016.39(Suppl 1). Performed By: #### 3 024-7, 3016-3, 84364-7, 17446-1 ####[facility] LABCLIA [id number] [place] [address] [place] Potassium [Moles/Vol] 4.2 mmol/L Normal 3.7-5.1 [facility] Comment on above: Order Comment: Speci men Type: BLOOD SPECIMENOrdering Facility: [facility] Address: [address] [place] [address] Performed By: #### 3 024-7, 3016-3, 23435-0, 41044-4 ####[facility] LABIA [id number] [place] [address] [place] Protein [Mass/Vol] 7.1 g/dL Normal 6.3-8.0 [facility] Comment on above: Order Comment: Speci men Type: BLOOD SPECIMENOrdering Facility: [facility] Address: [address] [place] [address] Performed By: #### 3 024-7, 3016-3, 07122-6, 64772-4 ####[facility] LABIA [id number] [place] [address] [place] Sodium [Moles/Vol] 136 mmol/L Normal 136-144 [facility] Comment on above: Order Comment: Speci men Type: BLOOD SPECIMENOrdering Facility: [facility] Address: [address] [place] [address] Performed By: #### 3 024-7, 3016-3, 27978-4, 02310-1 ####[facility] LABCLIA [id number] [place] [address] [place] Urea nitrogen [Mass/Vol] 12 mg/dL Normal 7-21 [facility] Comment on above: Order Comment: Speci men Type: BLOOD SPECIMENOrdering Facility: [facility] Address: [address] [place] [address] Performed By: #### 3 024-7, 3016-3, 52907-9, 80240-8 ####[facility] LABCLIA [id number] [place] [address] [place] Ferritin SerPl-mCncon 2023 Ferritin [Mass/Vol] 138.0 ng/mL Normal 14.7-205.1 [facility] Comment on above: Order Comment: Speci men Type: BLOOD SPECIMENOrdering Facility: [facility] Address: [address] [place] [address] Performed By: #### 2 276-4 ####[facility] LABCLIA [id number] [place] [address] [place] Iron and Iron binding capaci ty panelon 04-28-2024 Iron [Mass/Vol] 103 ug/dL Normal 41-186 [facility] Comment on above: Order Comment: Speci men Type: BLOOD SPECIMENOrdering Facility: [facility] Address: [address] [place] [address] Performed By: #### 3 024-7, 3016-3, 79070-6, 36000-3 ####[facility] LABCLIA [id number] [place] [address] [place] Iron binding capacity [Mass/Vol] 320 ug/dL Normal 232-386 [facility] Comment on above: Order Comment: Speci men Type: BLOOD SPECIMENOrdering Facility: [facility] Address: [address] [place] [address] Performed By: #### 3 024-7, 3016-3, 55332-0, 07216-5 ####[facility] LABCLIA [id number] [place] [address] [place] Iron/TIBC [Molar ratio] 32.2 % Normal 15.0-57.0 [facility] Comment on above: Order Comment: Speci men Type: BLOOD SPECIMENOrdering Facility: [facility] Address: [address] [place] [address] Performed By: #### 3 024-7, 3016-3, 74428-5, 92497-1 ####[facility] LABCLIA [id number] [place] [address] [place] T4 Free SerPl-mCncon 024 Free T4 [Mass/Vol] 1.2 ng/dL Normal 0.9-1.7 [facility] Comment on above: Order Comment: Speci men Type: BLOOD SPECIMENOrdering Facility: [facility] Address: [address] [place] [address] Performed By: #### 3 024-7, 3016-3, 31232-6, 45625-7 ####[facility] LABCLIA [id number] [place] [address] [place] TSH SerPl-aCncon 04-28-2024 TSH Qn 6.310 m[IU]/L High 0.270-4.200 [facility] Comment on above: Order Comment: Speci men Type: BLOOD SPECIMENOrdering Facility: [facility] Address: [address] [place] [address] Performed By: #### 3 024-7, 3016-3, 19616-5, 00970-3 ####[facility] LABIA [id number] [address] [place] CNOVon 03-23-2024 CNOV Office Visit ([facility] ) CASANDRA HENRY ([id number]) 1940 F Date Time Provider Department 03/23/24 8:20 AM DELILAH TRAORE During your visit today, we recorded the following information about you: Pulse Blood pressure Weight Height 67/minute 152/90 63 kg 1.562 m Delilah Traore DO 03/23/2024 8:41 AM Signed [facility] CARD[facility]ULAR [facility]ICINE CONSULT NOTE Casandra Henry [id number] PRIMARY SERVICE: Internal Medicine CONSULTING SERVICE: Cardiovascular Medicine: DATE OF ADMISSION: (Not on file) [facility] 08/11/2023 HISTORY OF PRESENT ILLNESS Casandra [...] SPEC WHEN PFRMD Comment: Colonoscopy done in [place] 02/19/2020: COLSC FLX W/REMOVAL LESION BY HOT [...] reviewed ZIO (more content not included)... Normal [facility] XR Chest PA and Lateralon IMPRESSION: No acute radiographic abnormality. Food Beverage Attendant: PSCB Transcribe Date/Time: Nov 06 2023 8:54A Dictated by : ARIC TY DO This examination was interpreted and the report reviewed and electronically signed by: ARIC TY DO on Nov 06 2023 8:54AM [facility] DIVISION OF RADIOLOGY * * *Final [...] soft tissues: Unremarkable. DIVISION OF RADIOLOGY Provider, [facility] - 11/06/2023 * * *Final Report* * [...] Unremarkable. IMPRESSION IMPRESSION: No acute radiographic abnormality. Food Beverage Attendant: DELIA Transcribe Date/Time: Nov 06 2023 8:54A Dictated by : ARIC TY DO This examination was interpreted and the report reviewed and electronically signed by: ARIC TY DO on Nov 06 2023 8:54AM EST [facility] Radiology Study observation (narrative) [facility] Chest PA and LateralOrder ed By: Ccf Provider on 11-06-2023 [facility] CNDSon 08-13-2023 [facility] HNO ID: [id number] Author: Liya Rose MD Service: Hospital Medicine [...] day. ferrous sulfat (more content not included)... [facility] CONSULT PROGon 08-13-2023 CONSULT PROG HNO ID: [id number] Author: Hugh Vu MD Service: Nephrology Author [...] mammogram and BMP in discharge orders Normal [facility] Comprehensive metabolic 2000 panelon 08-13-2023 Albumin [Mass/Vol] 3.9 g/dL Normal 3.9-4.9 [facility] Comment on above: Order Comment: Speci men Type: BLOOD SPECIMENOrdering Facility: [facility] Address: [address] [place] [address] Performed By: #### 1 239, ####EMPIRE LABORATORYCLIA [id number] [address] [place] [facility] ALP [Catalytic activity/Vol] 103 U/L Normal 34-123 [facility] Comment on above: Order Comment: Speci men Type: BLOOD SPECIMENOrdering Facility: [facility] Address: [address] [place] [address] Performed By: #### 1 23-9, ####GONZALES LABORATORYCLIA [id number] [place] [address] [place] ALT [Catalytic activity/Vol] 12 U/L Normal 7-38 [facility] Comment on above: Order Comment: Speci men Type: BLOOD SPECIMENOrdering Facility: [facility] Address: [address] [place] [address] Performed By: #### 1 23-9, ####GONZALES LABORATORYCLIA [id number] [address] [place] [facility] Anion gap [Moles/Vol] 10 mmol/L Normal 9-18 [facility] Comment on above: Order Comment: Speci men Type: BLOOD SPECIMENOrdering Facility: [facility] Address: [address] [place] [address] Performed By: #### 1 239, ####GONZALES LABORATORYCLIA [id number] [place] [address] [place] AST [Catalytic activity/Vol] 16 U/L Normal 13-35 [facility] Comment on above: Order Comment: Speci men Type: BLOOD SPECIMENOrdering Facility: [facility] Address: [place] [address] Performed By: #### 1 239, ####GONZALES LABORATORYCLIA [id number] [place] [address] [place] Bilirubin [Mass/Vol] 1.0 mg/dL Normal 0.2-1.3 [facility] Comment on above: Order Comment: Speci men Type: BLOOD SPECIMENOrdering Facility: [facility] Address: [place] [address] Performed By: #### 1 9123-04, ####GONZALES LABORATORYCLIA [id number] [place] [address] [place] Calcium [Mass/Vol] 9.6 mg/dL Normal 8.5-10.2 [facility] Comment on above: Order Comment: Speci men Type: BLOOD SPECIMENOrdering Facility: [facility] Address: [place] [address] Performed By: #### 1 239, ####GONZALES LABORATORYCLIA [id number] [place] [address] [place] Chloride [Moles/Vol] 93 mmol/L Low 97-105 [facility] Comment on above: Order Comment: Speci men Type: BLOOD SPECIMENOrdering Facility: [facility] Address: [place] [address] Performed By: #### 1 9, ####GONZALES LABORATORYCLIA [id number] [place] [address] [place] CO2 [Moles/Vol] 27 mmol/L Normal 22-30 [facility] Comment on above: Order Comment: Speci men Type: BLOOD SPECIMENOrdering Facility: [facility] Address: [address] [place] [address] Performed By: #### 1 9123-9, ####EMPIRE LABORATORYCLIA [id number] [place] [id number] [place] Creatinine [Mass/Vol] 0.89 mg/dL Normal 0.58-0.96 [facility] Comment on above: Order Comment: Johanne charles Type: BLOOD SPECIMENOrdering Facility: [facility] Address: [address] [place] [address] Performed By: #### 1 9123-9, ####EMPIRE LABORATORYCLIA [id number] [place] [id number] [facility] Creatinine and Glomerular filtration rate.predicted panel (S/P/Bld) 65 mL/min/1.73m??? Normal >=60 [facility] Comment on above: Order Comment: Johanne charles Type: BLOOD SPECIMENOrdering Facility: [facility] Address: [address] [place] [address] Result Comment: Hina mated Glomerular Filtration Rate [...] actual GFR. Performed By: #### 1 9123-9, ####EMPIRE LABORATORYCLIA [id number] [place] [id number] [place] Glucose [Mass/Vol] 96 mg/dL Normal 74-99 [facility] Comment on above: Order Comment: Johanne soto Type: BLOOD SPECIMENOrdering Facility: [facility] Address: [address] [place] [address] Result Comment: The [place] [employer] (ADA) provides guidance for cutoff [...] Standards of Medical Care in Diabetes 2016, [place] [employer]. Diabetes Care. 2016.39(Suppl 1). Performed By: #### 1 9123-9, ####GONZALES LABORATORYCLIA [id number] [place] [address] [place] Potassium [Moles/Vol] 4.4 mmol/L Normal 3.7-5.1 [facility] Comment on above: Order Comment: Johanne soto Type: BLOOD SPECIMENOrdering Facility: [facility] Address: [address] [place] [address] Performed By: #### 1 9123-9, ####GONZALES LABORATORYCLIA [id number] [place] [address] [place] Protein [Mass/Vol] 6.4 g/dL Normal 6.3-8.0 [facility] Comment on above: Order Comment: Johanne soto Type: BLOOD SPECIMENOrdering Facility: [facility] Address: [address] [place] [address] Performed By: #### 1 9123-9, ####GONZALES LABORATORYCLIA [id number] [place] [address] [place] Sodium [Moles/Vol] 130 mmol/L Low 136-144 [facility] Comment on above: Order Comment: Johanne soto Type: BLOOD SPECIMENOrdering Facility: [facility] Address: [address] [place] [address] Performed By: #### 1 23-9, ####GONZALES LABORATORYCLIA [id number] [place] [address] [place] Urea nitrogen [Mass/Vol] 55 mg/dL High 7-21 [facility] Comment on above: Order Comment: Johanne soto Type: BLOOD SPECIMENOrdering Facility: [facility] Address: [address] [place] [address] Performed By: #### 1 9123-9, 55273-1 ####GONZALES LABORATORYCLIA [id number] [place] [address] [facility] [place] Magnesium SerPl-mCncon 08-13 Magnesium [Mass/Vol] 2.2 mg/dL Normal 1.7-2.3 [facility] Comment on above: Order Comment: Speci men Type: BLOOD SPECIMENOrdering Facility: [facility] Address: [address] [place] [id number] Performed By: #### 1 9123-9, 31539-5 ####GONZALES LABORATORYCLIA [id number] [place] [address] [facility] THERAPY NTon 08-13-2023 THERAPY NT HNO ID: [id number] Author: Marsha Weston PT Service: Physical Therapy Author Type: Physical Therapist Type: Therapy (PT/OT/Speech/Resp) Filed: 08/13/2023 10:16 AM Note Text: Summary: PT Eval - No Skilled Needs Physical Therapy Evaluation SERVICE DATE: 08/13/2023 SERVICE TIME: 0945 to 1000 ROOM: [id number] Recommended Discharge Disposition: Home Recommended Discharge Disposition [...] on same property. 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 Normal [facility] CBC W Auto Differential pane l (Bld)on 08-12-2023 Basophils (Bld) [#/Vol] 0.05 10*3/uL Normal <0.11 [facility] Comment on above: Order Comment: Speci men Type: BLOOD SPECIMENOrdering Facility: [facility] Address: [address] [place] [address] Performed By: #### 5 7021-8 ####GONZALES LABORATORYCLIA [id number] [place] [address] [place] Basophils/100 WBC (Bld) 0.5 % Normal [facility] Comment on above: Order Comment: Speci men Type: BLOOD SPECIMENOrdering Facility: [facility] Address: [address] [place] [address] Performed By: #### 5 7021-8 ####GONZALES LABORATORYCLIA [id number] [place] [address] [place] Differential cell count method Nom (Bld) Auto Normal [facility] Comment on above: Order Comment: Speci men Type: BLOOD SPECIMENOrdering Facility: [facility] Address: [address] [place] [address] Performed By: #### 5 7021-8 ####GONZALES LABORATORYCLIA [id number] [place] [address] [place] Eosinophils (Bld) [#/Vol] 0.45 10*3/uL Normal <0.46 [facility] Comment on above: Order Comment: Speci men Type: BLOOD SPECIMENOrdering Facility: [facility] Address: [address] [place] [address] Performed By: #### 5 7021-8 ####GONZALES LABORATORYCLIA [id number] [address] [place] Eosinophils/100 WBC (Bld) 4.6 % Normal [facility] Comment on above: Order Comment: Speci men Type: BLOOD SPECIMENOrdering Facility: [facility] Address: [address] [place] [address] Performed By: #### 5 7021-8 ####GONZALES LABORATORYCLIA [id number] [address] STATES [facility] Erythrocyte distribution width (RBC) [Ratio] 11.9 % Normal 11.5-15.0 [facility] Comment on above: Order Comment: Speci men Type: BLOOD SPECIMENOrdering Facility: [facility] Address: [address] [place] [address] Performed By: #### 5 7021-8 ####GONZALES LABORATORYCLIA [id number] [address] [place] Hematocrit (Bld) [Volume fraction] 33.8 % Low 36.0-46.0 [facility] Comment on above: Order Comment: Speci men Type: BLOOD SPECIMENOrdering Facility: [facility] Address: [address] [place] [address] Performed By: #### 5 7021-8 ####GONZALES LABORATORYCLIA [id number] [address] Hemoglobin (Bld) [Mass/Vol] 11.9 g/dL Normal 11.5-15.5 [facility] Comment on above: Order Comment: Speci men Type: BLOOD SPECIMENOrdering Facility: [facility] Address: [address] [place] [address] Performed By: #### 5 7021-8 ####GONZALES LABORATORYCLIA [id number] [address] Immature granulocytes (Bld) [#/Vol] 0.04 10*3/uL Normal <0.10 [facility] Comment on above: Order Comment: Speci men Type: BLOOD SPECIMENOrdering Facility: [facility] Address: [address] [place] [address] Performed By: #### 5 7021-8 ####GONZALES LABORATORYCLIA [id number] [address] Immature granulocytes/100 WBC (Bld) 0.4 % Normal [facility] Comment on above: Order Comment: Speci men Type: BLOOD SPECIMENOrdering Facility: [facility] Address: [address] [place] [address] Performed By: #### 5 7021-8 ####GONZALES LABORATORYCLIA [id number] [address] STATES [facility] Lymphocytes (Bld) [#/Vol] 2.25 10*3/uL Normal 1.00-4.00 [facility] Comment on above: Order Comment: Speci men Type: BLOOD SPECIMENOrdering Facility: [facility] Address: [address] [place] [address] Performed By: #### 5 7021-8 ####GONZALES LABORATORYCLIA [id number] [address] Lymphocytes/100 WBC (Bld) 22.8 % Normal [facility] Comment on above: Order Comment: Speci men Type: BLOOD SPECIMENOrdering Facility: [facility] Address: [address] [place] [address] Performed By: #### 5 7021-8 ####GONZALES LABORATORYCLIA [id number] [address] MCH (RBC) [Entitic mass] 31.0 pg Normal 26.0-34.0 [facility] Comment on above: Order Comment: Speci men Type: BLOOD SPECIMENOrdering Facility: [facility] Address: [address] [place] [address] Performed By: #### 5 7021-8 ####GONZALES LABORATORYCLIA [id number] [place] [address] [place] MCHC (RBC) [Mass/Vol] 35.2 g/dL Normal 30.5-36.0 [facility] Comment on above: Order Comment: Speci men Type: BLOOD SPECIMENOrdering Facility: [facility] Address: [address] [place] [address] Performed By: #### 5 7021-8 ####GONZALES LABORATORYCLIA [id number] [place] [address] [place] MCV (RBC) [Entitic vol] 88.0 fL Normal 80.0-100.0 [facility] Comment on above: Order Comment: Speci men Type: BLOOD SPECIMENOrdering Facility: [facility] Address: [address] [place] [address] Performed By: #### 5 7021-8 ####GONZALES LABORATORYCLIA [id number] [place] [address] [place] Monocytes (Bld) [#/Vol] 1.00 10*3/uL High <0.87 [facility] Comment on above: Order Comment: Speci men Type: BLOOD SPECIMENOrdering Facility: [facility] Address: [address] [place] [address] Performed By: #### 5 7021-8 ####GONZALES LABORATORYCLIA [id number] [address] Monocytes/100 WBC (Bld) 10.1 % Normal [facility] Comment on above: Order Comment: Speci men Type: BLOOD SPECIMENOrdering Facility: [facility] Address: [address] [place] [address] Performed By: #### 5 7021-8 ####GONZALES LABORATORYCLIA [id number] [address] [place] Neutrophils (Bld) [#/Vol] 6.08 10*3/uL Normal 1.45-7.50 [facility] Comment on above: Order Comment: Speci men Type: BLOOD SPECIMENOrdering Facility: [facility] Address: [address] [place] [address] Performed By: #### 5 7021-8 ####GONZALES LABORATORYCLIA [id number] [address] Neutrophils/100 WBC (Bld) 61.6 % Normal [facility] Comment on above: Order Comment: Speci men Type: BLOOD SPECIMENOrdering Facility: [facility] Address: [address] [place] [address] Performed By: #### 5 7021-8 ####GONZALES LABORATORYCLIA [id number] [place] [address] [place] Nucleated RBC (Bld) [#/Vol] 10*3/uL Normal <0.01 [facility] Comment on above: Order Comment: Speci men Type: BLOOD SPECIMENOrdering Facility: [facility] Address: [address] [place] [address] Performed By: #### 5 7021-8 ####GONZALES LABORATORYCLIA [id number] [address] [place] Nucleated RBC/100 WBC (Bld) [Ratio] 0.0 /100 WBC Normal [facility] Comment on above: Order Comment: Speci men Type: BLOOD SPECIMENOrdering Facility: [facility] Address: [address] [place] [address] Performed By: #### 5 7021-8 ####GONZALES LABORATORYCLIA [id number] [place] [address] [place] Platelet mean volume (Bld) [Entitic vol] 8.7 fL Low 9.0-12.7 [facility] Comment on above: Order Comment: Speci men Type: BLOOD SPECIMENOrdering Facility: [facility] Address: [address] [place] [address] Performed By: #### 5 7021-8 ####GONZALES LABORATORYCLIA [id number] [place] [address] [place] Platelets (Bld) [#/Vol] 352 10*3/uL Normal 150-400 [facility] Comment on above: Order Comment: Speci men Type: BLOOD SPECIMENOrdering Facility: [facility] Address: [address] [place], [place] [address] [address] Performed By: #### 5 7021-8 ####GONZALES LABORATORYCLIA [id number] [place] [address] [place] RBC (Bld) [#/Vol] 3.84 10*6/uL Low 3.90-5.20 [facility] Comment on above: Order Comment: Speci men Type: BLOOD SPECIMENOrdering Facility: [facility] Address: [address] [facility] [place] [address] Performed By: #### 5 7021-8 ####GONZALES LABORATORYCLIA [id number] [place] [id number] [place] WBC (Bld) [#/Vol] 9.87 10*3/uL Normal 3.70-11.00 [facility] Comment on above: Order Comment: Speci men Type: BLOOD SPECIMENOrdering Facility: [facility] Address: [place] [address] Performed By: #### 5 7021-8 ####GONZALES LABORATORYCLIA [id number] [address] OF [facility] CONSULT PROGon 08-12-2023 CONSULT PROG HNO ID: [id number] Author: Hugh Vu MD Service: Nephrology Author [...] fluid restriction. Would not restart spironolactone Normal [facility] Comprehensive metabolic 2000 panelon 08-12-2023 Albumin [Mass/Vol] 4.1 g/dL Normal 3.9-4.9 [facility] Comment on above: Order Comment: Speci men Type: BLOOD SPECIMENOrdering Facility: [facility] Address: [address] [place] [address] Performed By: #### 2 43210-28, ####EMPIRE LABORATORYCLIA [id number] [place] [address] [place] [facility] ALP [Catalytic activity/Vol] 102 U/L Normal 34-123 [facility] Comment on above: Order Comment: Speci men Type: BLOOD SPECIMENOrdering Facility: [facility] Address: [address] [place] [address] Performed By: #### 2 43210-28, ####EMPIRE LABORATORYCLIA [id number] [address] OF [facility] ALT [Catalytic activity/Vol] 13 U/L Normal 7-38 [facility] Comment on above: Order Comment: Speci men Type: BLOOD SPECIMENOrdering Facility: [facility] Address: [place] [address] Performed By: #### 2 4328, ####GONZALES LABORATORYCLIA [id number] [place] [address] [place] Anion gap [Moles/Vol] 11 mmol/L Normal 9-18 [facility] Comment on above: Order Comment: Speci men Type: BLOOD SPECIMENOrdering Facility: [facility] Address: [address] [facility] [place] [address] Performed By: #### 2 4323-03, ####GONZALES LABORATORYCLIA [id number] [place] [address] [place] AST [Catalytic activity/Vol] 17 U/L Normal 13-35 [facility] Comment on above: Order Comment: Speci men Type: BLOOD SPECIMENOrdering Facility: [facility] Address: [place] [address] Performed By: #### 2 4323-03, ####GONZALES LABORATORYCLIA [id number] [place] [address] [place] Bilirubin [Mass/Vol] 1.0 mg/dL Normal 0.2-1.3 [facility] Comment on above: Order Comment: Speci men Type: BLOOD SPECIMENOrdering Facility: [facility] Address: [place] [address] Performed By: #### 2 43238, ####GONZALES LABORATORYCLIA [id number] [place] [address] [place] Calcium [Mass/Vol] 9.3 mg/dL Normal 8.5-10.2 [facility] Comment on above: Order Comment: Speci men Type: BLOOD SPECIMENOrdering Facility: [facility] Address: [address] [facility] [place] [address] Performed By: #### 2 4328, ####GONZALES LABORATORYCLIA [id number] [place] [address] [place] Chloride [Moles/Vol] 92 mmol/L Low 97-105 [facility] Comment on above: Order Comment: Speci men Type: BLOOD SPECIMENOrdering Facility: [facility] Address: [address] [place] [address] Performed By: #### 2 4328, ####GONZALES LABORATORYCLIA [id number] [place] [address] [place] CO2 [Moles/Vol] 25 mmol/L Normal 22-30 [facility] Comment on above: Order Comment: Speci men Type: BLOOD SPECIMENOrdering Facility: [facility] Address: [address] [place] [address] Performed By: #### 2 4328, ####GONZALES LABORATORYCLIA [id number] [place] [address] [place] Creatinine [Mass/Vol] 0.91 mg/dL Normal 0.58-0.96 [facility] Comment on above: Order Comment: Speci men Type: BLOOD SPECIMENOrdering Facility: [facility] Address: [address] [place] [address] Performed By: #### 2 4328, ####GONZALES LABORATORYCLIA [id number] [place] [address] [place] Creatinine and Glomerular filtration rate.predicted panel (S/P/Bld) 64 mL/min/1.73m??? Normal >=60 [facility] Comment on above: Order Comment: Speci men Type: BLOOD SPECIMENOrdering Facility: [facility] Address: [address] [place] [address] Result Comment: Hina mated Glomerular Filtration Rate [...] Performed By: #### 2 4323-8, ####GONZALES LABORATORYCLIA [id number] [place] [id number] [place] Glucose [Mass/Vol] 101 mg/dL High 74-99 [facility] Comment on above: Order Comment: Johanne soto Type: BLOOD SPECIMENOrdering Facility: [facility] Address: [place] [address] Result Comment: The [place] [employer] (ADA) provides guidance for cutoff [...] Standards of Medical Care in Diabetes 2016, [place] [employer]. Diabetes Care. 2016.39(Suppl 1). Performed By: #### 2 4323-8, ####GONZALES LABORATORYCLIA [id number] [place] [address] [place] Potassium [Moles/Vol] 4.5 mmol/L Normal 3.7-5.1 [facility] Comment on above: Order Comment: Johanne soto Type: BLOOD SPECIMENOrdering Facility: [facility] Address: [address] [place] [address] Performed By: #### 2 432-8, ####GONZALES LABORATORYCLIA [id number] [place] [address] [place] Protein [Mass/Vol] 6.5 g/dL Normal 6.3-8.0 [facility] Comment on above: Order Comment: Johanne soto Type: BLOOD SPECIMENOrdering Facility: [facility] Address: [place] [id number] Performed By: #### 2 43238, ####GONZALES LABORATORYCLIA [id number] [place] [id number] [place] Sodium [Moles/Vol] 128 mmol/L Low 136-144 [facility] Comment on above: Order Comment: Johanne men Type: BLOOD SPECIMENOrdering Facility: [facility] Address: [place] [address] Performed By: #### 2 4323-8, 78008-8 ####EMPIRE LABORATORYCLIA [id number] [place] [id number] [place] Urea nitrogen [Mass/Vol] 18 mg/dL Normal 03-12 [facility] Comment on above: Order Comment: Speci men Type: BLOOD SPECIMENOrdering Facility: [facility] Address: [address] [place] [address] Performed By: #### 2 4323-8, 01809-3 ####EMPIRE LABORATORYCLIA [id number] [place] [id number] [place] Cortis SerPl-mCncon 08-12-20 Cortisol [Mass/Vol] 21.1 ug/dL High 4.8-19.5 [facility] Comment on above: Order Comment: Speci men Type: BLOOD SPECIMENOrdering Facility: [facility] Address: [address] [place] [address] Result Comment: Prov ided reference range is from 6-10 AM sample collection time. Cortisol Reference Range: 6-10 AM = 4.8-19.5 ug/dL, 4-8 PM = 2.5-11.9 ug/dL Performed By: #### 2 143-6 ####[facility] LABCLIA [id number] [facility] [id number] [id number] [place] EKGon 08-12-2023 Electrocardiogram Ventricular Rate : 8 7 BPM Atrial Rate : 87 BPM P-R Interval : 160 ms QRS Duration : 74 ms Q-T Interval : 352 ms QTC Calculation(Bazett) : 423 ms Calculated P Ailey : 43 degrees Calculated R Ailey : 7 degrees Calculated T Ailey : 51 degrees NORMAL SINUS RHYTHM NORMAL ECG WHEN COMPARED WITH ECG OF 09-AUG-2023 08:44, NO SIGNIFICANT CHANGE WAS FOUND Confirmed by MD LEI GREGORY () on 08/13/2023 8:21:13 AM NAME : CASANDRA HENRY PID : [id number] : 1940 Gender : Female Race : [...] : , Acquired by : KL, Normal [facility] Magnesium SerPl-mCncon 08-12 Magnesium [Mass/Vol] 2.1 mg/dL Normal 1.7-2.3 [facility] Comment on above: Order Comment: Speci men Type: BLOOD SPECIMENOrdering Facility: [facility] Address: [address] [place] [address] Performed By: #### 2 4323-8, 26037-2 ####EMPIRE LABORATORYCLIA [id number] [place], [place] [address] [place] [address] THERAPY NTon 08-12-2023 THERAPY NT HNO ID: [id number] Author: Rickey Hanson OT/L Service: Occupational Therapy Author Type: Occupational Therapist Type: Therapy (PT/OT/Speech/Resp) Filed: 08/12/2023 10:44 AM Note Text: Occupational Therapy Evaluation SERVICE DATE: 08/12/2023 SERVICE TIME: 39 to 100 ROOM: [place] [address] Recommended Discharge Disposition: Home Anticipated Discharge Needs: [...] cleaning, laundry, drives, shops. Takes rollator from [employer]. Does not use device at home for mobility. 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 [facility] 08-11-2023 [facility] HNO ID: [id number] Author: Ana Chang, CT Service: Radiology Author [...] August 11, 2023 TIME: 6:54 PM Normal [facility] Basic metabolic 2000 panelon 08-11-2023 Anion gap [Moles/Vol] 10 mmol/L Normal 9-18 [facility] Comment on above: Order Comment: Speci men Type: BLOOD SPECIMENOrdering Facility: [facility] Address: [address] [place] [address] Performed By: #### 2 4321-2 ####EMPIRE LABORATORYCLIA [id number] [place] [address] [place] Calcium [Mass/Vol] 9.2 mg/dL Normal 8.5-10.2 [facility] Comment on above: Order Comment: Speci men Type: BLOOD SPECIMENOrdering Facility: [facility] Address: [address] [place] [address] Performed By: #### 2 4321-2 ####EMPIRE LABORATORYCLIA [id number] [place] [address] [place] Chloride [Moles/Vol] 94 mmol/L Low 97-105 [facility] Comment on above: Order Comment: Speci men Type: BLOOD SPECIMENOrdering Facility: [facility] Address: [address] [place] [address] Performed By: #### 2 4321-2 ####EMPIRE LABORATORYCLIA [id number] [place] [address] [place] CO2 [Moles/Vol] 24 mmol/L Normal 22-30 [facility] Comment on above: Order Comment: Speci men Type: BLOOD SPECIMENOrdering Facility: [facility] Address: [address] [place] [address] Performed By: #### 2 4321-2 ####GONZALES LABORATORYCLIA [id number] [address] [place] Creatinine [Mass/Vol] 0.85 mg/dL Normal 0.58-0.96 [facility] Comment on above: Order Comment: Johanne soto Type: BLOOD SPECIMENOrdering Facility: [facility] Address: [address] [place] [address] Performed By: #### 2 4321-2 ####EMPIRE LABORATORYCLIA [id number] [address] Creatinine and Glomerular filtration rate.predicted panel (S/P/Bld) 69 mL/min/1.73m??? Normal >=60 [facility] Comment on above: Order Comment: Johanne soto Type: BLOOD SPECIMENOrdering Facility: [facility] Address: [address] [place] [address] Result Comment: Hina mated Glomerular Filtration Rate [...] Performed By: #### 2 4321-2 ####GONZALES LABORATORYCLIA [id number] [address] OF [facility] Glucose [Mass/Vol] 105 mg/dL High 74-99 [facility] Comment on above: Order Comment: Johanne soto Type: BLOOD SPECIMENOrdering Facility: [facility] Address: [address] [place] [address] Result Comment: The [place] Diabetes Association (ADA) provides guidance for cutoff [...] Standards of Medical Care in Diabetes 2016, [place] [employer]. Diabetes Care. 2016.39(Suppl 1). Performed By: #### 2 4321-2 ####GONZALES LABORATORYCLIA [id number] [address] STATES [facility] Potassium [Moles/Vol] 4.7 mmol/L Normal 3.7-5.1 [facility] Comment on above: Order Comment: Speci men Type: BLOOD SPECIMENOrdering Facility: [facility] Address: [address] [place] [address] Performed By: #### 2 4321-2 ####GONZALES LABORATORYCLIA [id number] [address] STATES [facility] Sodium [Moles/Vol] 128 mmol/L Low 136-144 [facility] Comment on above: Order Comment: Sheilai charles Type: BLOOD SPECIMENOrdering Facility: [facility] Address: [address] [place] [address] Performed By: #### 2 4321-2 ####GONZALES LABORATORYCLIA [id number] [address] STATES [facility] Urea nitrogen [Mass/Vol] 11 mg/dL Normal 7-21 [facility] Comment on above: Order Comment: Sheilai charles Type: BLOOD SPECIMENOrdering Facility: [facility] Address: [address] [place] [address] Performed By: #### 2 4321-2 ####GONZALES LABORATORYCLIA [id number] [address] STATES OF [facility] CBC W Auto Differential pane l (Bld)on 08-11-2023 Basophils (Bld) [#/Vol] 0.06 10*3/uL Normal <0.11 [facility] Comment on above: Order Comment: Sheilai men Type: BLOOD SPECIMENOrdering Facility: [facility] Address: [address] [place] [address] Performed By: #### 5 7021-8 ####GONZALES LABORATORYCLIA [id number] [address] STATES [facility] Basophils/100 WBC (Bld) 0.6 % Normal [facility] Comment on above: Order Comment: Speci men Type: BLOOD SPECIMENOrdering Facility: [facility] Address: [address] [place] [address] Performed By: #### 5 7021-8 ####GONZALES LABORATORYCLIA [id number] [place] [address] [place] Differential cell count method Nom (Bld) Auto Normal [facility] Comment on above: Order Comment: Speci men Type: BLOOD SPECIMENOrdering Facility: [facility] Address: [address] [place] [address] Performed By: #### 5 7021-8 ####GONZALES LABORATORYCLIA [id number] [place] [address] [place] Eosinophils (Bld) [#/Vol] 0.23 10*3/uL Normal <0.46 [facility] Comment on above: Order Comment: Speci men Type: BLOOD SPECIMENOrdering Facility: [facility] Address: [address] [place] [address] Performed By: #### 5 7021-8 ####GONZALES LABORATORYCLIA [id number] [place] [address] [place] Eosinophils/100 WBC (Bld) 2.1 % Normal [facility] Comment on above: Order Comment: Speci men Type: BLOOD SPECIMENOrdering Facility: [facility] Address: [address] [place] [address] Performed By: #### 5 7021-8 ####GONZALES LABORATORYCLIA [id number] [place] [address] [place] Erythrocyte distribution width (RBC) [Ratio] 11.6 % Normal 11.5-15.0 [facility] Comment on above: Order Comment: Speci men Type: BLOOD SPECIMENOrdering Facility: [facility] Address: [address] [place] [address] Performed By: #### 5 7021-8 ####GONZALES LABORATORYCLIA [id number] [place] [address] [place] Hematocrit (Bld) [Volume fraction] 37.0 % Normal 36.0-46.0 [facility] Comment on above: Order Comment: Speci men Type: BLOOD SPECIMENOrdering Facility: [facility] Address: [address] [place] [address] Performed By: #### 5 7021-8 ####GONZALES LABORATORYCLIA [id number] [place] [address] [place] Hemoglobin (Bld) [Mass/Vol] 12.5 g/dL Normal 11.5-15.5 [facility] Comment on above: Order Comment: Speci men Type: BLOOD SPECIMENOrdering Facility: [facility] Address: [address] [place] [address] Performed By: #### 5 7021-8 ####GONZALES LABORATORYCLIA [id number] [place] [address] [place] Immature granulocytes (Bld) [#/Vol] 0.05 10*3/uL Normal <0.10 [facility] Comment on above: Order Comment: Speci men Type: BLOOD SPECIMENOrdering Facility: [facility] Address: [address] [place] [address] Performed By: #### 5 7021-8 ####GONZALES LABORATORYCLIA [id number] [place] [address] [place] Immature granulocytes/100 WBC (Bld) 0.5 % Normal [facility] Comment on above: Order Comment: Speci men Type: BLOOD SPECIMENOrdering Facility: [facility] Address: [address] [place] [address] Performed By: #### 5 7021-8 ####GONZALES LABORATORYCLIA [id number] [place] [address] [place] Lymphocytes (Bld) [#/Vol] 1.85 10*3/uL Normal 1.00-4.00 [facility] Comment on above: Order Comment: Speci men Type: BLOOD SPECIMENOrdering Facility: [facility] Address: [address] [place] [address] Performed By: #### 5 7021-8 ####GONZALES LABORATORYCLIA [id number] [address] [place] Lymphocytes/100 WBC (Bld) 17.1 % Normal [facility] Comment on above: Order Comment: Speci men Type: BLOOD SPECIMENOrdering Facility: [facility] Address: [address] [place] [address] Performed By: #### 5 7021-8 ####GONZALES LABORATORYCLIA [id number] [address] MCH (RBC) [Entitic mass] 30.2 pg Normal 26.0-34.0 [facility] Comment on above: Order Comment: Speci men Type: BLOOD SPECIMENOrdering Facility: [facility] Address: [address] [place] [address] Performed By: #### 5 7021-8 ####GONZALES LABORATORYCLIA [id number] [address] MCHC (RBC) [Mass/Vol] 33.8 g/dL Normal 30.5-36.0 [facility] Comment on above: Order Comment: Speci men Type: BLOOD SPECIMENOrdering Facility: [facility] Address: [address] [place] [address] Performed By: #### 5 7021-8 ####GONZALES LABORATORYCLIA [id number] [address] MCV (RBC) [Entitic vol] 89.4 fL Normal 80.0-100.0 [facility] Comment on above: Order Comment: Speci men Type: BLOOD SPECIMENOrdering Facility: [facility] Address: [address] [place] [address] Performed By: #### 5 7021-8 ####GONZALES LABORATORYCLIA [id number] [address] Monocytes (Bld) [#/Vol] 1.05 10*3/uL High <0.87 [facility] Comment on above: Order Comment: Speci men Type: BLOOD SPECIMENOrdering Facility: [facility] Address: [address] [place] [address] Performed By: #### 5 7021-8 ####GONZALES LABORATORYCLIA [id number] [address] Monocytes/100 WBC (Bld) 9.7 % Normal [facility] Comment on above: Order Comment: Speci men Type: BLOOD SPECIMENOrdering Facility: [facility] Address: [address] [facility] [place] [address] Performed By: #### 5 7021-8 ####GONZALES LABORATORYCLIA [id number] [place] [address] [place] Neutrophils (Bld) [#/Vol] 7.56 10*3/uL High 1.45-7.50 [facility] Comment on above: Order Comment: Speci men Type: BLOOD SPECIMENOrdering Facility: [facility] Address: [address] [place] [address] Performed By: #### 5 7021-8 ####GONZALES LABORATORYCLIA [id number] [address] Neutrophils/100 WBC (Bld) 70.0 % Normal [facility] Comment on above: Order Comment: Speci men Type: BLOOD SPECIMENOrdering Facility: [facility] Address: [address] [place] [address] Performed By: #### 5 7021-8 ####GONZALES LABORATORYCLIA [id number] [place] [address] [place] Nucleated RBC (Bld) [#/Vol] 10*3/uL Normal <0.01 [facility] Comment on above: Order Comment: Speci men Type: BLOOD SPECIMENOrdering Facility: [facility] Address: [address] [place] [address] Performed By: #### 5 7021-8 ####GONZALES LABORATORYCLIA [id number] [address] Nucleated RBC/100 WBC (Bld) [Ratio] 0.0 /100 WBC Normal [facility] Comment on above: Order Comment: Speci men Type: BLOOD SPECIMENOrdering Facility: [facility] Address: [address] [place] [address] Performed By: #### 5 7021-8 ####GONZALES LABORATORYCLIA [id number] [place] [address] [facility] [place] Platelet mean volume (Bld) [Entitic vol] 8.4 fL Low 9.0-12.7 [facility] Comment on above: Order Comment: Speci men Type: BLOOD SPECIMENOrdering Facility: [facility] Address: [address] [place] [address] Performed By: #### 5 7021-8 ####GONZALES LABORATORYCLIA [id number] [address] [place] Platelets (Bld) [#/Vol] 360 10*3/uL Normal 150-400 [facility] Comment on above: Order Comment: Speci men Type: BLOOD SPECIMENOrdering Facility: [facility] Address: [address] [place] [address] Performed By: #### 5 7021-8 ####GONZALES LABORATORYCLIA [id number] [place] [address] [place] RBC (Bld) [#/Vol] 4.14 10*6/uL Normal 3.90-5.20 [facility] Comment on above: Order Comment: Speci men Type: BLOOD SPECIMENOrdering Facility: [facility] Address: [address] [place] [address] Performed By: #### 5 7021-8 ####GONZALES LABORATORYCLIA [id number] [place] [address] [place] WBC (Bld) [#/Vol] 10.80 10*3/uL Normal 3.70-11.00 [facility] Comment on above: Order Comment: Speci men Type: BLOOD SPECIMENOrdering Facility: [facility] Address: [place] [address] Performed By: #### 5 7021-8 ####GONZALES LABORATORYCLIA [id number] [place] [id number] [facility] [place] CONSULTon 08-11-2023 CONSULT HNO ID: [id number] Author: Delilah Traore DO Service: Cardiovascular Medicine Author Type: Physician Type: Consults Filed: 08/11/2023 11:37 AM Note Text: [facility] CARDI[facility]ULAR [facility]ICINE CONSULT NOTE Casandra Henry [id number] PRIMARY SERVICE: Internal Medicine CONSULTING SERVICE: Cardiovascular [...] SPEC WHEN PFRMD 12/05/2013 Colonoscopy done in [facility] FLX W/REMOVAL LESION BY HOT BX FORCEPS [...] INTRAVENOUS ONCE A (more content not included)... [facility] CONSULT PROGon 08-11-2023 CONSULT PROG HNO ID: [id number] Author: Hugh Vu MD Service: Nephrology Author Type: Physician Type: Consult Progress Note Filed: 08/11/2023 1:42 PM Note Text: Patient seen and examined. Had a rough night. [place] palpitations again. Had some restless legs. Mild [...] (last one I can see was 2017) [facility] CT ABD/PEL W IVCONon 023 CT ABD/PEL W IVCON * * *Final Report* * * DATE OF EXAM: Aug 11 2023 7:00PM [facility] 0530 - CT ABD/PEL W IVCON / [...] of the right subareolar region, incompletely characterized. Certified Home Health Aide (topogram) images: No additional findings. IMPRESSION: 1. [...] already performed. Other chronic findings, as above. Food Beverage Attendant: DELIA Transcribe Date/Time: Aug 11 2023 7:28P Dictated by : ALEXI LORD MD This examination was interpreted and the report reviewed and electronically signed by: ALEXI LORD MD on Aug 11 2023 7:39PM EST [id number] [facility] CT CHEST W IVCONon 3 CT CHEST W IVCON * * *Final Report* * * DATE OF EXAM: Aug 11 2023 7:00PM [facility] 0539 - CT CHEST W IVCON / [...] of the right subareolar region, incompletely characterized. Certified Home Health Aide (topogram) images: No additional findings. IMPRESSION: 1. [...] already performed. Other chronic findings, as above. Food Beverage Attendant: DELIA Transcribe Date/Time: Aug 11 2023 7:28P Dictated by : ALEXI LORD MD This examination was interpreted and the report reviewed and electronically signed by: ALEXI LORD MD on Aug 11 2023 7:39PM EST [id number] Normal [facility] Comprehensive metabolic 2000 panelon 08-11-2023 Albumin [Mass/Vol] 4.1 g/dL Normal 3.9-4.9 [facility] Comment on above: Order Comment: Speci men Type: BLOOD SPECIMENOrdering Facility: [facility] Address: [address] [place] [address] Performed By: #### 1 9123-9, 36021-8 ####EMPIRE LABORATORYCLIA [id number] [place] [address] [place] ALP [Catalytic activity/Vol] 109 U/L Normal 34-123 [facility] Comment on above: Order Comment: Speci men Type: BLOOD SPECIMENOrdering Facility: [facility] Address: [address] [place] [address] Performed By: #### 1 9123-9, 95662-6 ####EMPIRE LABORATORYCLIA [id number] [place] [address] [place] ALT [Catalytic activity/Vol] 14 U/L Normal 7-38 [facility] Comment on above: Order Comment: Speci men Type: BLOOD SPECIMENOrdering Facility: [facility] Address: [address] [place] [address] Performed By: #### 1 9123-9, 89371-7 ####GONZALES LABORATORYCLIA [id number] [place] [address] [place] Anion gap [Moles/Vol] 8 mmol/L Low 9-18 [facility] Comment on above: Order Comment: Speci men Type: BLOOD SPECIMENOrdering Facility: [facility] Address: [address] [place] [address] Performed By: #### 1 23-9, 18821-4 ####GONZALES LABORATORYCLIA [id number] [place] [address] [place] AST [Catalytic activity/Vol] 19 U/L Normal 13-35 [facility] Comment on above: Order Comment: Speci men Type: BLOOD SPECIMENOrdering Facility: [facility] Address: [address] [facility] [place] [address] Performed By: #### 1 23-9, ####GONZALES LABORATORYCLIA [id number] [place] [address] [place] Bilirubin [Mass/Vol] 1.3 mg/dL Normal 0.2-1.3 [facility] Comment on above: Order Comment: Speci men Type: BLOOD SPECIMENOrdering Facility: [facility] Address: [address] [facility] [place] [address] Performed By: #### 1 239, ####GONZALES LABORATORYCLIA [id number] [place] [address] [place] Calcium [Mass/Vol] 9.6 mg/dL Normal 8.5-10.2 [facility] Comment on above: Order Comment: Speci men Type: BLOOD SPECIMENOrdering Facility: [facility] Address: [address] [facility] [place] [address] Performed By: #### 1 23-9, ####GONZALES LABORATORYCLIA [id number] [place] [address] [place] Chloride [Moles/Vol] 90 mmol/L Low 97-105 [facility] Comment on above: Order Comment: Speci men Type: BLOOD SPECIMENOrdering Facility: [facility] Address: [address] [facility] [place] [address] Performed By: #### 1 23-9, ####GONZALES LABORATORYCLIA [id number] [place] [address] [place] CO2 [Moles/Vol] 25 mmol/L Normal 22-30 [facility] Comment on above: Order Comment: Speci men Type: BLOOD SPECIMENOrdering Facility: [facility] Address: [address] [place] [address] Performed By: #### 1 9123-9, ####EMPIRE LABORATORYCLIA [id number] [address] STATES [facility] Creatinine [Mass/Vol] 0.84 mg/dL Normal 0.58-0.96 [facility] Comment on above: Order Comment: Johanne charles Type: BLOOD SPECIMENOrdering Facility: [facility] Address: [address] [place] [address] Performed By: #### 1 9123-9, ####EMPIRE LABORATORYCLIA [id number] [address] Creatinine and Glomerular filtration rate.predicted panel (S/P/Bld) 70 mL/min/1.73m??? Normal >=60 [facility] Comment on above: Order Comment: Johanne charles Type: BLOOD SPECIMENOrdering Facility: [facility] Address: [address] [place] [address] Result Comment: Hina mated Glomerular Filtration Rate [...] actual GFR. Performed By: #### 1 9123-9, 02403-1 ####EMPIRE LABORATORYCLIA [id number] [place] [address] [place] Glucose [Mass/Vol] 108 mg/dL High 74-99 [facility] Comment on above: Order Comment: Johanne soto Type: BLOOD SPECIMENOrdering Facility: [facility] Address: [address] [place] [address] Result Comment: The [place] [employer] (ADA) provides guidance for cutoff [...] Standards of Medical Care in Diabetes 2016, [place] [employer]. Diabetes Care. 2016.39(Suppl 1). Performed By: #### 1 9123-9, ####GONZALES LABORATORYCLIA [id number] [place] [address] [place] Potassium [Moles/Vol] 4.5 mmol/L Normal 3.7-5.1 [facility] Comment on above: Order Comment: Johanne soto Type: BLOOD SPECIMENOrdering Facility: [facility] Address: [address] [place] [address] Performed By: #### 1 23-9, ####GONZALES LABORATORYCLIA [id number] [place] [address] [place] Protein [Mass/Vol] 6.8 g/dL Normal 6.3-8.0 [facility] Comment on above: Order Comment: Johanne soto Type: BLOOD SPECIMENOrdering Facility: [facility] Address: [address] [place] [address] Performed By: #### 1 23-9, ####GONZALES LABORATORYCLIA [id number] [place] [address] [place] Sodium [Moles/Vol] 123 mmol/L Low 136-144 [facility] Comment on above: Order Comment: Johanne soto Type: BLOOD SPECIMENOrdering Facility: [facility] Address: [address] [place] [address] Performed By: #### 1 23-9, ####[facility] LABORATORYCLIA [id number] [place] [address] [place] Urea nitrogen [Mass/Vol] 8 mg/dL Normal 7-21 [facility] Comment on above: Order Comment: Johanne soto Type: BLOOD SPECIMENOrdering Facility: [facility] Address: [address] [place] [address] Performed By: #### 1 9123-9, 59469-7 ####EMPIRE LABORATORYCLIA [id number] [place] [address] [facility] ECHOon 08-11-2023 Echocardiography Echocardiography Report: Transthoracic Echo [facility] Date of service: 08/11/2023 10:55:54 AM Ordering physician: LIYA ROSE Indication: SVT Technologist: Ashleigh Gilman [facility] Interpreting physician: Rock Gomez DO PATIENT: Name: [...] * * * Final * * * [employer] [facility] : [id number] sSISUID Normal [facility] Magnesium SerPl-mCncon 08-11 Magnesium [Mass/Vol] 1.9 mg/dL Normal 1.7-2.3 [facility] Comment on above: Order Comment: Speci men Type: BLOOD SPECIMENOrdering Facility: [facility] Address: [address] [place] [address] Performed By: #### 1 9123-9, 67884-3 ####EMPIRE LABORATORYCLIA [id number] [place] [address] [place] Osmolality Uron 08-11-2023 Osmolality (U) [Osmolality] 332 mosm/kg Normal 50-1200 [facility] Comment on above: Order Comment: Speci men Type: URINE SPECIMENOrdering Facility: [facility] Address: [address] [place] [address] Performed By: #### 2 695-5 ####[facility] LABCLIA [id number] [place] [address] [place] Sodium ?Tm Ur-sCncon 023 Sodium Unsp time (U) [Moles/Vol] 55 mmol/L Normal 14-216 [facility] Comment on above: Order Comment: Speci men Type: URINE SPECIMENOrdering Facility: [facility] Address: [address] [place] [address] Performed By: #### 3 5678-2 ####[facility] LABCLIA [id number] [place] [address] [place] CASE MGT INIT ASSESon 2022 CASE MGT INIT ASSES HNO ID: [id number] Author: Pasquale Merchant LSW Service: ASSESSMENT Author Type: Solutions Sales Executive Type: Care Mgt Initial Assessment Filed: 08/10/2023 1:14 PM Note Text: CARE MANAGEMENT: ASSESSMENT AND DISCHARGE PLAN SERVICE DATE: August 10, 2023 SERVICE TIME: 1:12 PM PCP: Mariana Mcgill Primary Contact: Extended Emergency Contact Information Primary Emergency Contact: Jigar Henry Address: [address] [place] [address] Mobile Relation: Spouse Admission Status: Observation Insurance Provider: [employer] A[employer] MEDICARE HMO Discharge Planning requested by: Per Department Practice Potential Transition Plans Home;To Be Determined Advance Directives Current Advance Directive: None Aluminizer Attempted to Assist with AD Completion: Yes [...] Be able to go home, General wellness [place] of Choice Explained: [place] of Choice Given: No Reason Not Given: [...] discharge. Spouse to transport. SIGNATURE: Pasquale GOOD, PROVIDER SERVICE REPRESENTATIVE PATIENT NAME: Casandra Henry DATE: August 10, 2023 TIME: 1:12 PM CONTACT #: [facility] CONSULTon 08-10-2023 CONSULT HNO ID: [id number] Author: Hugh Vu MD Service: Nephrology Author [...] suggestive of worsening hyponatremia. She contacted her c2 tactical analysis technician, my partner Dr. Ray, who asked that [...] SPEC WHEN PFRMD 12/05/2013 Colonoscopy done in [facility] FLX W/REMOVAL LESION BY HOT BX FORCEPS [...] (DEFINITY), , INTRAVENOUS, DIRECTED PRN, Sergei Renner APRN.FOUNDRY EQUIPMENT MECHANIC sodium chloride 0.9 % (flush) 10 mL (BD POSIFLUSH), 10 mL, INTRAVENOUS, DIRECTED PRN, Sergei Renner, FERNANDEZ.FOUNDRY EQUIPMENT MECHANIC busPIRone (BUSPAR) 5 mg tablet, Take 1 [...] SpO2 Heigh (more content not included)... Normal [facility] Comprehensive metabolic 2000 panelon 08-10-2023 Albumin [Mass/Vol] 4.0 g/dL Normal 3.9-4.9 [facility] Comment on above: Order Comment: Speci men Type: BLOOD SPECIMENOrdering Facility: [facility] Address: [address] [place] [address] Performed By: #### 2 4323-8 ####EMPIRE LABORATORYCLIA [id number] [address] ALP [Catalytic activity/Vol] 112 U/L Normal 34-123 [facility] Comment on above: Order Comment: Speci men Type: BLOOD SPECIMENOrdering Facility: [facility] Address: [address] [place] [address] Performed By: #### 2 4323-8 ####EMPIRE LABORATORYCLIA [id number] [address] ALT [Catalytic activity/Vol] 15 U/L Normal 7-38 [facility] Comment on above: Order Comment: Speci men Type: BLOOD SPECIMENOrdering Facility: [facility] Address: [address] [place] [address] Performed By: #### 2 4323-8 ####GONZALES LABORATORYCLIA [id number] [address] Anion gap [Moles/Vol] 11 mmol/L Normal 9-18 [facility] Comment on above: Order Comment: Speci men Type: BLOOD SPECIMENOrdering Facility: [facility] Address: [address] [place] [address] Performed By: #### 2 4323-8 ####GONZALES LABORATORYCLIA [id number] [place] [address] [place] AST [Catalytic activity/Vol] 25 U/L Normal 13-35 [facility] Comment on above: Order Comment: Speci men Type: BLOOD SPECIMENOrdering Facility: [facility] Address: [address] [place] [address] Performed By: #### 2 4323-8 ####GONZALES LABORATORYCLIA [id number] [place] [address] [place] Bilirubin [Mass/Vol] 1.6 mg/dL High 0.2-1.3 [facility] Comment on above: Order Comment: Speci men Type: BLOOD SPECIMENOrdering Facility: [facility] Address: [address] [place] [address] Performed By: #### 2 4323-8 ####GONZALES LABORATORYCLIA [id number] [place] [address] [place] Calcium [Mass/Vol] 9.5 mg/dL Normal 8.5-10.2 [facility] Comment on above: Order Comment: Speci men Type: BLOOD SPECIMENOrdering Facility: [facility] Address: [address] [place] [address] Performed By: #### 2 4323-8 ####GONZALES LABORATORYCLIA [id number] [place] [address] [place] Chloride [Moles/Vol] 91 mmol/L Low 97-105 [facility] Comment on above: Order Comment: Speci men Type: BLOOD SPECIMENOrdering Facility: [facility] Address: [address] [place] [address] Performed By: #### 2 4323-8 ####GONZALES LABORATORYCLIA [id number] [place] [address] [place] CO2 [Moles/Vol] 24 mmol/L Normal 22-30 [facility] Comment on above: Order Comment: Speci men Type: BLOOD SPECIMENOrdering Facility: [facility] Address: [address] [place] [address] Performed By: #### 2 4323-8 ####GONZALES LABORATORYCLIA [id number] [address] [facility] Creatinine [Mass/Vol] 0.82 mg/dL Normal 0.58-0.96 [facility] Comment on above: Order Comment: Johanne soto Type: BLOOD SPECIMENOrdering Facility: [facility] Address: [address] [place] [address] Performed By: #### 2 4323-8 ####GONZALES LABORATORYCLIA [id number] [place] [id number] [facility] Creatinine and Glomerular filtration rate.predicted panel (S/P/Bld) 72 mL/min/1.73m??? Normal >=60 [facility] Comment on above: Order Comment: Johanne soto Type: BLOOD SPECIMENOrdering Facility: [facility] Address: [address] [place] [address] Result Comment: Hina mated Glomerular Filtration Rate [...] Performed By: #### 2 4323-8 ####GONZALES LABORATORYCLIA [id number] [place] [id number] [facility] Glucose [Mass/Vol] 100 mg/dL High 74-99 [facility] Comment on above: Order Comment: Johanne soto Type: BLOOD SPECIMENOrdering Facility: [facility] Address: [address] [place] [address] Result Comment: The [place] Diabetes Association (ADA) provides guidance for cutoff [...] Standards of Medical Care in Diabetes 2016, [place] [employer]. Diabetes Care. 2016.39(Suppl 1). Performed By: #### 2 4323-8 ####GONZALES LABORATORYCLIA [id number] [place] [address] [place] Potassium [Moles/Vol] 4.8 mmol/L Normal 3.7-5.1 [facility] Comment on above: Order Comment: Speci men Type: BLOOD SPECIMENOrdering Facility: [facility] Address: [address] [place] [address] Performed By: #### 2 4323-8 ####GONZALES LABORATORYCLIA [id number] [place] [address] [place] Protein [Mass/Vol] 6.7 g/dL Normal 6.3-8.0 [facility] Comment on above: Order Comment: Speci men Type: BLOOD SPECIMENOrdering Facility: [facility] Address: [address] [place] [address] Performed By: #### 2 4323-8 ####GONZALES LABORATORYCLIA [id number] [place] [address] [place] Sodium [Moles/Vol] 126 mmol/L Low 136-144 [facility] Comment on above: Order Comment: Speci men Type: BLOOD SPECIMENOrdering Facility: [facility] Address: [address] [place] [address] Performed By: #### 2 4323-8 ####GONZALES LABORATORYCLIA [id number] [place] [address] [place] Urea nitrogen [Mass/Vol] 8 mg/dL Normal 7-21 [facility] Comment on above: Order Comment: Speci men Type: BLOOD SPECIMENOrdering Facility: [facility] Address: [address] [place] [address] Performed By: #### 2 4323-8 ####GONZALES LABORATORYCLIA [id number] [place] [address] [place] METANEPHRINES, FREE PLASMAon 08-10-2023 METANEPHRINE, PLASMA 58 pg/mL Normal 12-67 [facility] Comment on above: Order Comment: Speci men Type: BLOOD SPECIMENOrdering Facility: [facility] Address: [address] [place] [address] Result Comment: Refe rence Ranges: Hypertensive adult > or = 18 yrs old: 12-72 pg/mL Normotensive adult > or = 18 yrs old: 12-67 pg/mL Normotensive children < 18 yrs old: 10-95 pg/mL Performed By: #### P METAN ####[facility] LABCLIA [id number] [place] [address] [place] NORMETANEPHRINE, PLASMA 84 pg/mL Normal 18-101 M [facility] Comment on above: Order Comment: Speci men Type: BLOOD SPECIMENOrdering Facility: [facility] Address: [address] [place] [address] Result Comment: Refe rence Ranges: Hypertensive adult > or = 18 yrs old: 24-145 pg/mL Normotensive adult > or = 18 yrs old: 18-101 pg/mL Normotensive children < 18 yrs old: 22-83 pg/mL Methyldopa may cause false elevation of normetanephrine levels in this assay. If patient is on methyldopa, interpret results with caution. Performed By: #### P METAN ####[facility] LABCLIA [id number] [place] [address] [place] NUTRITIONon 08-10-2023 NUTRITION HNO ID: [id number] Author: Tammy Alfred RD Service: Nutrition Therapy [...] August 10, 2023 TIME: 12:43 PM Normal [facility] PROTEIN ELECTROPHORESIS SERU M (P)on 08-10-2023 Albumin [Mass/Vol] 3.87 g/dL Normal 3.43-5.41 [facility] Comment on above: Order Comment: Speci men Type: BLOOD SPECIMENOrdering Facility: [facility] Address: [address] [place] [address] Performed By: #### L [id number] ####[facility] LABCLIA [id number] [place] [address] [place] Alpha 1 globulin Elph [Mass/Vol] 0.30 g/dL Normal 0.18-0.43 [facility] Comment on above: Order Comment: Speci men Type: BLOOD SPECIMENOrdering Facility: [facility] Address: [address] [place] [address] Performed By: #### L [id number] ####[facility] LABCLIA [id number] [place] [address] [place] Alpha 2 globulin Elph [Mass/Vol] 0.57 g/dL Normal 0.42-0.98 [facility] Comment on above: Order Comment: Speci men Type: BLOOD SPECIMENOrdering Facility: [facility] Address: [address] [place] [address] Performed By: #### L [id number] ####[facility] LABCLIA [id number] [place] [address] [place] Beta globulin Elph [Mass/Vol] 0.89 g/dL Normal 0.61-1.17 [facility] Comment on above: Order Comment: Speci men Type: BLOOD SPECIMENOrdering Facility: [facility] Address: [address] [place] [address] Performed By: #### L [id number] ####[facility] LABCLIA [id number] [place] [address] [place] Gamma globulin Elph [Mass/Vol] 0.66 g/dL Normal 0.53-1.51 [facility] Comment on above: Order Comment: Speci men Type: BLOOD SPECIMENOrdering Facility: [facility] Address: [address] [place] [address] Performed By: #### L [id number] ####[facility] LABCLIA [id number] [place] [address] [place] M-PROTEIN LOCATION Normal [facility] Comment on above: Order Comment: Speci men Type: BLOOD SPECIMENOrdering Facility: [facility] Address: [address] [place] [address] Result Comment: Not Applicable. Performed By: #### L [id number] ####[facility] LABIA [id number] [place] [address] [place] Protein Fractions [Interp] No definitive M protein is identified on protein electrophoresis. Normal No definitive M protein is identified on protein electrophores is. [facility] Comment on above: Order Comment: Speci men Type: BLOOD SPECIMENOrdering Facility: [facility] Address: [address] [place] [address] Performed By: #### L [id number] ####[facility] LABIA [id number] [address] [place] Protein.monoclonal Elph [Mass/Vol] 0.00 g/dL Normal <=0.00 [facility] Comment on above: Order Comment: Speci men Type: BLOOD SPECIMENOrdering Facility: [facility] Address: [address] [place] [address] Performed By: #### L [id number] ####[facility] LABIA [id number] [place] [address] [place] SPE STAFF REVIEW Reviewed by Dr. Dimas Nicole MD [facility] Comment on above: Order Comment: Speci men Type: BLOOD SPECIMENOrdering Facility: [facility] Address: [address] [place] [id number] Performed By: #### L [id number] ####[facility] LABCLIA [id number] [place] [id number] [facility] [place] Prot SerPl-mCncon 08-10-2023 Protein [Mass/Vol] 6.3 g/dL Normal 6.3-8.0 [facility] Comment on above: Order Comment: Speci men Type: BLOOD SPECIMENOrdering Facility: [facility] Address: [address] [place] [address] Performed By: #### 2 885-2 ####[facility] [id number] [place] [id number] [facility] [place] ALLIED HEALTHon 08-09-2023 ALLIED HEALTH HNO ID: [id number] Author: Colleen Gonzalez Tech Service: Radiology Author Type: Large Engine Assembler Type: Allied Health Filed: 08/09/2023 9:04 PM [...] Plaza August 09, 2023 9:03 PM Normal [facility] HNO ID: [id number] Author: Amita Domingo V RT(R) Service: Radiology [...] RT(R) August 09, 2023 10:48 AM Normal [facility] CBC W Auto Differential pane l (Bld)on 08-09-2023 Basophils (Bld) [#/Vol] 0.04 10*3/uL Normal <0.11 [facility] Comment on above: Order Comment: Speci men Type: BLOOD SPECIMENOrdering Facility: [facility] Address: [address] [place] [address] Performed By: #### 5 7021-8 ####GONZALES LABORATORYCLIA [id number] [place] [address] [place] Basophils/100 WBC (Bld) 0.4 % Normal [facility] Comment on above: Order Comment: Speci men Type: BLOOD SPECIMENOrdering Facility: [facility] Address: [address] [place] [address] Performed By: #### 5 7021-8 ####GONZALES LABORATORYCLIA [id number] [place] [address] [place] Differential cell count method Nom (Bld) Auto Normal [facility] Comment on above: Order Comment: Speci men Type: BLOOD SPECIMENOrdering Facility: [facility] Address: [address] [place] [address] Performed By: #### 5 7021-8 ####GONZALES LABORATORYCLIA [id number] [place] [address] [place] Eosinophils (Bld) [#/Vol] 0.18 10*3/uL Normal <0.46 [facility] Comment on above: Order Comment: Speci men Type: BLOOD SPECIMENOrdering Facility: [facility] Address: [facility] [place] [address] Performed By: #### 5 7021-8 ####GONZAL[facility] LABORATORYCLIA [id number] [place] [address] [place] Eosinophils/100 WBC (Bld) 1.7 % Normal [facility] Comment on above: Order Comment: Speci men Type: BLOOD SPECIMENOrdering Facility: [facility] Address: [address] [place] [address] Performed By: #### 5 7021-8 ####GONZALES LABORATORYCLIA [id number] [address] [place] Erythrocyte distribution width (RBC) [Ratio] 11.5 % Normal 11.5-15.0 [facility] Comment on above: Order Comment: Speci men Type: BLOOD SPECIMENOrdering Facility: [facility] Address: [address] [place] [address] Performed By: #### 5 7021-8 ####GONZAL[facility] LABORATORYCLIA [id number] [address] [place] Hematocrit (Bld) [Volume fraction] 32.2 % Low 36.0-46.0 [facility] Comment on above: Order Comment: Speci men Type: BLOOD SPECIMENOrdering Facility: [facility] Address: [address] [place] [address] Performed By: #### 5 7021-8 ####GONZAL[facility] LABORATORYCLIA [id number] [address] [place] Hemoglobin (Bld) [Mass/Vol] 11.1 g/dL Low 11.5-15.5 [facility] Comment on above: Order Comment: Speci men Type: BLOOD SPECIMENOrdering Facility: [facility] Address: [address] [place] [address] Performed By: #### 5 7021-8 ####GONZAL[facility] LABORATORYCLIA [id number] [address] [place] Immature granulocytes (Bld) [#/Vol] 0.05 10*3/uL Normal <0.10 [facility] Comment on above: Order Comment: Speci men Type: BLOOD SPECIMENOrdering Facility: [facility] Address: [address] [place] [address] Performed By: #### 5 7021-8 ####GONZAL[facility] LABORATORYCLIA [id number] [address] Immature granulocytes/100 WBC (Bld) 0.5 % Normal [facility] Comment on above: Order Comment: Speci men Type: BLOOD SPECIMENOrdering Facility: [facility] Address: [address] [place] [address] Performed By: #### 5 7021-8 ####GONZAL[facility] LABORATORYCLIA [id number] [address] [place] Lymphocytes (Bld) [#/Vol] 1.79 10*3/uL Normal 1.00-4.00 [facility] Comment on above: Order Comment: Speci men Type: BLOOD SPECIMENOrdering Facility: [facility] Address: [address] [place] [address] Performed By: #### 5 7021-8 ####GONZAL[facility] LABORATORYCLIA [id number] [address] Lymphocytes/100 WBC (Bld) 16.5 % Normal [facility] Comment on above: Order Comment: Speci men Type: BLOOD SPECIMENOrdering Facility: [facility] Address: [address] [place] [address] Performed By: #### 5 7021-8 ####GONZAL[facility] LABORATORYCLIA [id number] [address] MCH (RBC) [Entitic mass] 30.5 pg Normal 26.0-34.0 [facility] Comment on above: Order Comment: Speci men Type: BLOOD SPECIMENOrdering Facility: [facility] Address: [address] [place] [address] Performed By: #### 5 7021-8 ####GONZAL[facility] LABORATORYCLIA [id number] [address] MCHC (RBC) [Mass/Vol] 34.5 g/dL Normal 30.5-36.0 [facility] Comment on above: Order Comment: Speci men Type: BLOOD SPECIMENOrdering Facility: [facility] Address: [address] [place] [address] Performed By: #### 5 7021-8 ####GONZALES LABORATORYCLIA [id number] [place] [address] [place] MCV (RBC) [Entitic vol] 88.5 fL Normal 80.0-100.0 M [facility] Comment on above: Order Comment: Speci men Type: BLOOD SPECIMENOrdering Facility: [facility] Address: [address] [place] [address] Performed By: #### 5 7021-8 ####GONZAL[facility] LABORATORYCLIA [id number] [place] [address] [place] Monocytes (Bld) [#/Vol] 0.96 10*3/uL High <0.87 [facility] Comment on above: Order Comment: Speci men Type: BLOOD SPECIMENOrdering Facility: [facility] Address: [address] [place] [address] Performed By: #### 5 7021-8 ####GONZALES LABORATORYCLIA [id number] [place] [address] [place] Monocytes/100 WBC (Bld) 8.8 % Normal [facility] Comment on above: Order Comment: Speci men Type: BLOOD SPECIMENOrdering Facility: [facility] Address: [address] [place] [address] Performed By: #### 5 7021-8 ####GONZALES LABORATORYCLIA [id number] [place] [address] [place] Neutrophils (Bld) [#/Vol] 7.83 10*3/uL High 1.45-7.50 [facility] Comment on above: Order Comment: Speci men Type: BLOOD SPECIMENOrdering Facility: [facility] Address: [address] [place] [address] Performed By: #### 5 7021-8 ####GONZALES LABORATORYCLIA [id number] [place] [address] [place] Neutrophils/100 WBC (Bld) 72.1 % Normal [facility] Comment on above: Order Comment: Speci men Type: BLOOD SPECIMENOrdering Facility: [facility] Address: [address] [place], [place] [address] [address] Performed By: #### 5 7021-8 ####GONZALES LABORATORYCLIA [id number] [place] [address] [place] Nucleated RBC (Bld) [#/Vol] 10*3/uL Normal <0.01 [facility] Comment on above: Order Comment: Speci men Type: BLOOD SPECIMENOrdering Facility: [facility] [facility] Address: [address] [place] [address] Performed By: #### 5 7021-8 ####[facility] LABORATORYCLIA [id number] [place] [address] [place] Nucleated RBC/100 WBC (Bld) [Ratio] 0.0 /100 WBC Normal [facility] Comment on above: Order Comment: Speci men Type: BLOOD SPECIMENOrdering Facility: [facility] Address: [address] [place] [address] Performed By: #### 5 7021-8 ####[facility] LABORATORYCLIA [id number] [place] [address] [place] Platelet mean volume (Bld) [Entitic vol] 8.2 fL Low 9.0-12.7 [facility] Comment on above: Order Comment: Speci men Type: BLOOD SPECIMENOrdering Facility: [facility] Address: [place] [address] Performed By: #### 5 7021-8 ####[facility] LABORATORYCLIA [id number] [place] [address] [place] Platelets (Bld) [#/Vol] 346 10*3/uL Normal 150-400 [facility] Comment on above: Order Comment: Speci men Type: BLOOD SPECIMENOrdering Facility: [facility] Address: [address] [place] [address] Performed By: #### 5 7021-8 ####[facility] LABORATORYCLIA [id number] [place] [address] [place] RBC (Bld) [#/Vol] 3.64 10*6/uL Low 3.90-5.20 [facility] Comment on above: Order Comment: Speci men Type: BLOOD SPECIMENOrdering Facility: [facility] Address: [address] [place] [address] Performed By: #### 5 7021-8 ####[facility] LABORATORYCLIA [id number] [address] WBC (Bld) [#/Vol] 10.85 10*3/uL Normal 3.70-11.00 [facility] Comment on above: Order Comment: Speci men Type: BLOOD SPECIMENOrdering Facility: [facility] Address: [address] [place] [address] Performed By: #### 5 7021-8 ####[facility] LABORATORYCLIA [id number] [address] Comprehensive metabolic 2000 panelon 08-09-2023 Albumin [Mass/Vol] 4.0 g/dL Normal 3.9-4.9 [facility] Comment on above: Order Comment: Speci men Type: BLOOD SPECIMENOrdering Facility: [facility] Address: [address] [place] [address] Performed By: #### 3 024-7 ####[facility] LABCLIA [id number] [address] [place]#### 20038-4, 82122-2, [id number], 11492-8, 3084-1 ####[facility] LABORATORYCLIA [id number] [address] ALP [Catalytic activity/Vol] 101 U/L Normal 34-123 [facility] Comment on above: Order Comment: Speci men Type: BLOOD SPECIMENOrdering Facility: [facility] Address: [address] [place] [address] Performed By: #### 3 024-7 ####[facility] LABCLIA [id number] [place] [address] [place]#### 12688-3, 30766-1, [id number], 43263-7, 3084-1 ####[facility] LABORATORYCLIA [id number] [place] [address] [place] ALT [Catalytic activity/Vol] 11 U/L Normal 7-38 [facility] Comment on above: Order Comment: Speci men Type: BLOOD SPECIMENOrdering Facility: [facility] Address: [place] [address] Performed By: #### 3 024-7 ####[facility] LABCLIA [id number] [place] [address] [place]#### 10163-5, 39243-5, [id number], 08217-0, 3084-1 ####[facility] LABORATORYCLIA [id number] [place] [address] [place] Anion gap [Moles/Vol] 10 mmol/L Normal 9-18 [facility] Comment on above: Order Comment: Speci men Type: BLOOD SPECIMENOrdering Facility: [facility] Address: [place] [address] Performed By: #### 3 024-7 ####[facility] LABCLIA [id number] [place] [address] [place]#### 65973-3, 19419-4, [id number], 18723-3, 3084-1 ####[facility] LABORATORYCLIA [id number] [place] [address] [place] AST [Catalytic activity/Vol] 17 U/L Normal 13-35 [facility] Comment on above: Order Comment: Speci men Type: BLOOD SPECIMENOrdering Facility: [facility] Address: [address] [place] [address] Performed By: #### 3 024-7 ####[facility] LABCLIA [id number] [place] [address] [place]#### 85298-6, 79868-5, [id number], 34250-4, 3084-1 ####[facility] LABORATORYCLIA [id number] [place] [address] [place] Bilirubin [Mass/Vol] 0.7 mg/dL Normal 0.2-1.3 [facility] Comment on above: Order Comment: Speci men Type: BLOOD SPECIMENOrdering Facility: [facility] Address: [address] [place] [address] Performed By: #### 3 024-7 ####[facility] LABCLIA [id number] [place] [address] [place]#### 38679-6, 97028-0, [id number], 85300-9, 3084-1 ####[facility] LABORATORYCLIA [id number] [place] [address] [place] Calcium [Mass/Vol] 9.0 mg/dL Normal 8.5-10.2 [facility] Comment on above: Order Comment: Speci men Type: BLOOD SPECIMENOrdering Facility: [facility] Address: [address] [place] [address] Performed By: #### 3 024-7 ####[facility] LABCLIA [id number] [place] [address] [place]#### 86198-6, 45394-4, [id number], 09435-9, 3084-1 ####[facility] LABORATORYCLIA [id number] [place] [address] [place] Chloride [Moles/Vol] 93 mmol/L Low 97-105 [facility] Comment on above: Order Comment: Speci men Type: BLOOD SPECIMENOrdering Facility: [facility] Address: [address] [place] [address] Performed By: #### 3 024-7 ####[facility] LABCLIA [id number] [place] [address] [place]#### 83533-7, 97513-4, [id number], 77413-8, 3084-1 ####[facility] LABORATORYCLIA [id number] [place] [address] [place] CO2 [Moles/Vol] 23 mmol/L Normal 22-30 [facility] Comment on above: Order Comment: Speci men Type: BLOOD SPECIMENOrdering Facility: [facility] Address: [address] [place] [address] Performed By: #### 3 024-7 ####[facility] LABCLIA [id number] [place] [address] [place]#### 99274-6, 64832-3, [id number], 31342-2, 3084-1 ####[facility] LABORATORYCLIA [id number] [address] Creatinine [Mass/Vol] 0.94 mg/dL Normal 0.58-0.96 [facility] Comment on above: Order Comment: Speci men Type: BLOOD SPECIMENOrdering Facility: [facility] Address: [address] [place] [address] Performed By: #### 3 024-7 ####[facility] LABCLIA [id number] [address] [place]#### 90321-5, 24638-8, [id number], 54860-5, 3084-1 ####[facility] LABORATORYCLIA [id number] [address] Creatinine and Glomerular filtration rate.predicted panel (S/P/Bld) 61 mL/min/1.73m??? Normal >=60 [facility] Comment on above: Order Comment: Speci men Type: BLOOD SPECIMENOrdering Facility: [facility] Address: [address] [place] [address] Result Comment: Hina mated Glomerular Filtration Rate [...] actual GFR. Performed By: #### 3 024-7 ####[facility] LABCLIA [id number] [place] [address] [place]#### 64077-4, 16049-1, [id number], 91133-1, 3084-1 ####EM[facility] LABORATORYCLIA [id number] [place] [id number] [place] Glucose [Mass/Vol] 117 mg/dL High 74-99 [facility] Comment on above: Order Comment: Speci men Type: BLOOD SPECIMENOrdering Facility: [facility] Address: [address] [place] [address] Result Comment: The [place] [employer] (ADA) provides guidance for cutoff [...] Standards of Medical Care in Diabetes 2016, [place] [employer]. Diabetes Care. 2016.39(Suppl 1). Performed By: #### 3 024-7 ####[facility] LABCLIA [id number] [place] [address] [place]#### 05732-3, 83962-2, [id number], 02811-1, 3084-1 ####[facility] LABORATORYCLIA [id number] [place] [address] [place] Potassium [Moles/Vol] 4.5 mmol/L Normal 3.7-5.1 [facility] Comment on above: Order Comment: Speci men Type: BLOOD SPECIMENOrdering Facility: [facility] Address: [address] [place] [address] Performed By: #### 3 024-7 ####[facility] LABCLIA [id number] [place] [address] [place]#### 92555-0, 36692-9, [id number], 91573-5, 3084-1 ####[facility] LABORATORYCLIA [id number] [place] [address] [place] Protein [Mass/Vol] 6.4 g/dL Normal 6.3-8.0 [facility] Comment on above: Order Comment: Speci men Type: BLOOD SPECIMENOrdering Facility: [facility] Address: [address] [place] [address] Performed By: #### 3 024-7 ####[facility] LABCLIA [id number] [place] [address] [place]#### 16299-0, 59682-1, [id number], 74724-8, 3084-1 ####[facility] LABORATORYCLIA [id number] [place] [address] [place] Sodium [Moles/Vol] 126 mmol/L Low 136-144 [facility] Comment on above: Order Comment: Speci men Type: BLOOD SPECIMENOrdering Facility: [facility] Address: [address] [place] [address] Performed By: #### 3 024-7 ####[facility] LABCLIA [id number] [place] [address] [place]#### 16789-9, 05088-2, [id number], 30192-9, 3084-1 ####[facility] LABORATORYCLIA [id number] [place] [address] [place] Urea nitrogen [Mass/Vol] 11 mg/dL Normal 7-21 [facility] Comment on above: Order Comment: Speci men Type: BLOOD SPECIMENOrdering Facility: [facility] Address: [address] [place] [address] Performed By: #### 3 024-7 ####[facility] LABCLIA [id number] [place] [address] [place]#### 61507-4, 35493-8, [id number], 79572-1, 3084-1 ####[facility] LABORATORYCLIA [id number] [place] [address] [place] Creatinine Unsp time (U) [Ma ss/Vol]on 08-09-2023 Creatinine (U) [Mass/Vol] 31.6 mg/dL Normal 20.0-300.0 [facility] Comment on above: Order Comment: Speci men Type: URINE SPECIMENOrdering Facility: [facility] Address: [address] [place] [address] Performed By: #### 3 5678-2, 20028-9 ####[facility] LABCLIA [id number] [facility] [address] [place] ECG COMPLETEon 08-09-2023 ECG COMPLETE Ventricular Rate : 7 8 BPM Atrial Rate : 78 BPM P-R Interval : 164 ms QRS Duration : 72 ms Q-T Interval : 358 ms QTC Calculation(Bazett) : 408 ms Calculated P Ailey : 43 degrees Calculated R Ailey : 9 degrees Calculated T Ailey : 48 degrees NORMAL SINUS RHYTHM NORMAL ECG no stemi Confirmed by MERRY HART MD ([id number]), make up editor BONNY AVELAR (1940) on 08/09/2023 4:55:33 PM NAME : CASANDRA HENRY PID : [id number] : 1940 Gender : Female Race : ORD : [id number] Procedure Date : Aug 09 2023 08:44:04 Edit Date : Aug 09 2023 16:55:38 Diagnosis: NORMAL SINUS RHYTHM NORMAL ECG no stemi Confirmed by MERRY HART MD ([id number]), make up editor BONNY AVELAR (1940) on 08/09/2023 4:55:33 PM Test Reason : Chest Pain Location : 1 : ER ED Overread By : MERRY HART MD Edited By : BONNY AVELAR Referred By : , Acquired by : [id number], [facility] ED NOTEon 08-09-2023 ED NOTE HNO ID: [id number] Author: Kia Cline RN Service: Nursing Author Type: Registered Nurse Type: ED Notes Filed: 08/09/2023 4:25 PM Note Text: Pt report was called to Andrea MCDANIELS [facility] ED NOTE HNO ID: [id number] Author: Kia Cline RN Service: Nursing Author Type: Registered Nurse Type: ED Notes Filed: 08/09/2023 4:07 PM Note Text: Pt has ambulated to the bathroom gait is steady her is bedside [facility] ED NOTE HNO ID: [id number] Author: Kia Cline RN Service: Nursing Author Type: Registered Nurse Type: ED Notes Filed: 08/09/2023 3:21 PM Note Text: 10 min heads up was provided to 2 [facility] ED NOTE HNO ID: [id number] Author: Kia Cline RN Service: Nursing Author Type: Registered Nurse Type: ED Notes Filed: 08/09/2023 3:08 PM Note Text: Pt and her were both updated of the hospital bed assignment [facility] ED NOTE HNO ID: [id number] Author: Kia Cline RN Service: Nursing Author Type: Registered Nurse Type: ED Notes Filed: 08/09/2023 3:08 PM Note Text: Pt has had a meal tolerated well Her is bedside [facility] ED NOTE HNO ID: [id number] Author: Buck Luna RN Service: ? Author Type: Registered Nurse Type: ED Notes Filed: 08/09/2023 1:17 PM Note Text: Report to Kia [facility] ED NOTE HNO ID: [id number] Author: Buck Luna RN Service: ? Author Type: Registered Nurse Type: ED Notes Filed: 08/09/2023 11:16 AM Note Text: Assumed care from Joss RN/ Torsten MCDANIELS [facility] ED PROV NOTEon 08-09-2023 ED PROV NOTE HNO ID: [id number] Author: Merry Hart MD Service: ? Author [...] SPEC WHEN PFRMD 12/05/2013 Colonoscopy done in [facility] FLX W/REMOVAL LESION BY HOT BX FORCEPS [...] was 124. She did talk with her c2 tactical analysis technician from [place] who changed one of her water pills [...] Reviewed Rhythm: Normal sinus rhythm Rate: 78 Ailey: Normal axis Intervals: Normal UT interval QRS Complex: ST Segment: Nonspecific ST-T changes QT Interval: Normal Compared with Prior: Interpretation performed by Merry Hart MD Disposition The patient was admitted. Counseled patient regarding lab results and radiology results. Admitted to Regular Nursing Floor. SIGNATURE: Merry Hart MD - MERRY HART 08/09/23 1539 Normal [facility] HIGH SENSITIVITY TROPONIN T (INITIAL)on 08-09-2023 Troponin T.cardiac High sensitivity method [Mass/Vol] 16 ng/L High <12 [facility] Comment on above: Order Comment: Speci men Type: BLOOD SPECIMENOrdering Facility: [facility] Address: [address], [place] [address] Result Comment: When assessing risk for acute [...] day MACE. Performed By: #### 3 024-7 ####[facility] LABCLIA [id number] [facility] [id number] [address] [place]#### 04501-3, 50064-5, [id number], 78419-0, 3084-1 ####[facility] LABORATORYCLIA [id number] [address] HIGH SENSITIVITY TROPONIN T (SECOND)on 08-09-2023 Troponin T.cardiac High sensitivity method [Mass/Vol] 11 ng/L Normal <12 [facility] Comment on above: Order Comment: Johanne soto Type: BLOOD SPECIMENOrdering Facility: [facility] Address: [address] [place] [address] Result Comment: When assessing risk for acute [...] 30 day MACE. Performed By: #### L [id number] ####[facility] LABORATORYCLIA [id number] [address] HIGH SENSITIVITY TROPONIN T (THIRD) 3 HRS AFTER INITIALon 08-09-2023 Troponin T.cardiac High sensitivity method [Mass/Vol] 11 ng/L Normal <12 [facility] Comment on above: Order Comment: Johanne soto Type: BLOOD SPECIMENOrdering Facility: [facility] Address: [address] [place] [address] Result Comment: When assessing risk for acute [...] day MACE. Performed By: #### 3 016-3, [id number] ####[facility] LABORATORYCLIA [id number] [address] [place] HISTORY PHYSICALon HISTORY PHYSICAL HNO ID: [id number] Author: Liya Rose MD Service: Hospital Medicine Author Type: Physician Type: HANDP Filed: 08/09/2023 4:03 PM Note Text: DEPARTMENT OF HOSPITAL MEDICINE HISTORY AND PHYSICAL EXAM SERVICE DATE: 08/09/2023 Code Status: Not on file SERVICE TIME: 3:35 PM Primary Care Physician: Sreekanth Cortez, DO NIGHT AND WEEKEND COVERAGE: EMPIRE COVERAGE: Days: [phone], please page attending physician. Nights: [phone], please page [facility] Night coverage pager [phone]. Subjective CHIEF COMPLAINT: palpitations, hyponatremia HPI: This [...] SPEC WHEN PFRMD 12/05/2013 Colonoscopy done in [place] [facility] FLX W/REMOVAL LESION BY HOT BX [...] Drains, and Airways Line Duration Peripheral 08/09/23 0948 [facility] Short Left Antecubital 20 Gauge <1 [...] for phe (more content not included)... Normal [facility] Magnesium [Mass/Vol] 1.8 mg/dL Normal 1.7-2.3 [facility] Comment on above: Order Comment: Speci men Type: BLOOD SPECIMENOrdering Facility: [facility] Address: [address] [place] [address] Performed By: #### 3 024-7 ####[facility] LABCLIA [id number] [place] [address] [place]#### 27678-6, 58743-6, [id number], 70648-4, 3084-1 ####EM[facility] LABORATORYCLIA [id number] [place] [address] [place] NT-proBNP [facility] 08-09 Natriuretic peptide.B prohormone N-Terminal [Mass/Vol] 104 pg/mL Normal <450 [facility] Comment on above: Order Comment: Speci men Type: BLOOD SPECIMENOrdering Facility: [facility] Address: [address] [place] [address] Performed By: #### 3 024-7 ####[facility] LABCLIA [id number] [place] [address] [place]#### 51524-5, 26632-2, [id number], 44112-5, 3084-1 ####EMPI[facility] LABORATORYCLIA [id number] [place] [address] [place] Osmolality [facility] 3 Osmolality [Osmolality] 262 mosm/kg Low 275-300 [facility] Comment on above: Order Comment: Speci men Type: BLOOD SPECIMENOrdering Facility: [facility] Address: [address] [place] [address] Performed By: #### 2 692-2 ####[facility] LABCLIA [id number] [place] [id number] [place] Osmolality Uron 08-09-2023 Osmolality (U) [Osmolality] 226 mosm/kg Normal 50-1200 [facility] Comment on above: Order Comment: Speci men Type: URINE SPECIMENOrdering Facility: [facility] Address: [address] [place] [address] Performed By: #### 2 695-5 ####[facility] LABCLIA [id number] [place] [address] [place] Sodium ?Tm Ur-sCncon 023 Sodium Unsp time (U) [Moles/Vol] 56 mmol/L Normal 14-216 [facility] Comment on above: Order Comment: Speci men Type: URINE SPECIMENOrdering Facility: [facility] Address: [address] [place] [address] Performed By: #### 3 5678-2, 69445-0 ####[facility] LABIA [id number] [place] [address] [place] T4 Free SerPl-mCncon 023 Free T4 [Mass/Vol] 1.7 ng/dL Normal 0.9-1.7 [facility] Comment on above: Order Comment: Speci men Type: BLOOD SPECIMENOrdering Facility: [facility] Address: [address] [place] [address] Performed By: #### 3 024-7 ####[facility] LABCLIA [id number] [place] [address] [place]#### 02970-0, 99631-6, [id number], 14757-7, 3084-1 ####[facility] LABORATORYCLIA [id number] [facility] [place] [address] [place] TSH SerPl-aCncon 08-09-2023 TSH Qn 0.233 m[IU]/L Low 0.270-4.200 [facility] Comment on above: Order Comment: Speci men Type: BLOOD SPECIMENOrdering Facility: [facility] Address: [place] [address] Performed By: #### 3 016-3, [id number] ####EMPIRE LABORATORYCLIA [id number] [place] [address] [place] US CAROTID BILon 08-09-2023 US CAROTID DOE * * *Final Report* * * DATE OF EXAM: Aug 09 2023 9:02PM [facility] - US CAROTID DOE / PROCEDURE [...] left internal carotid artery by NASCET criteria. Food Beverage Attendant: PSCB Transcribe Date/Time: Aug 10 2023 8:02A Dictated by : DAVID PALACIOS MD This examination was interpreted and the report reviewed and electronically signed by: DAVID PALACIOS MD on Aug 10 2023 8:05AM EST [id number] Normal [facility] US THYROID/PARATHYROIDon US THYROID/PARATHYROID * * *Final Report * * * DATE OF EXAM: Aug 09 2023 9:03PM [facility] - US THYROID/PARATHYROID / PROCEDURE REASON: [...] IMPRESSION: Normal sonographic appearance of the thyroid. Food Beverage Attendant: DELIA Transcribe Date/Time: Aug 10 2023 8:05A Dictated by : DAVID PALACIOS MD This examination was interpreted and the report reviewed and electronically signed by: DAVID PALACIOS MD on Aug 10 2023 8:07AM EST [id number] Normal [facility] Urate SerPl-mCncon 3 Urate [Mass/Vol] 3.6 mg/dL Normal 2.5-6.6 [facility] Comment on above: Order Comment: Speci men Type: BLOOD SPECIMENOrdering Facility: [facility] Address: [address] [place] [address] Performed By: #### 3 024-7 ####[facility] LABCLIA [id number] [address] [place]#### 14236-8, 89464-1, [id number], 02128-9, 3084-1 ####EMPIRE LABORATORYCLIA [id number] [place] [address] [place] Urinalysis complete panel (U )on 08-09-2023 Bacteria LM.HPF (Urine sed) [#/Area] Few Abnormal None Seen [facility] Comment on above: Order Comment: Speci men Type: URINE SPECIMENOrdering Facility: [facility] Address: [address] [place] [address] Performed By: #### 2 4356-8 ####EMPIRE LABORATORYCLIA [id number] [place] [id number] [place] Bilirubin Ql (U) Negative Normal Negative [facility] Comment on above: Order Comment: Speci men Type: URINE SPECIMENOrdering Facility: [facility] Address: [address] [place] [address] Performed By: #### 2 4356-8 ####G[facility] LABORATORYCLIA [id number] [address] Clarity (Unsp spec) Clear Normal Clear [facility] Comment on above: Order Comment: Speci men Type: URINE SPECIMENOrdering Facility: [facility] Address: [address] [place] [address] Performed By: #### 2 4356-8 ####GONZAL[facility] LABORATORYCLIA [id number] [address] [place] Color (U) Yellow Normal Yellow [facility] Comment on above: Order Comment: Speci men Type: URINE SPECIMENOrdering Facility: [facility] Address: [address] [place] [address] Performed By: #### 2 4356-8 ####G[facility] LABORATORYCLIA [id number] [address] Epithelial cells LM.HPF (Urine sed) [#/Area] Few Normal [facility] Comment on above: Order Comment: Speci men Type: URINE SPECIMENOrdering Facility: [facility] Address: [address] [place] [address] Performed By: #### 2 4356-8 ####G[facility]AL[facility] LABORATORYCLIA [id number] [address] Glucose Test strip (U) [Mass/Vol] Negative Normal Negative [facility] Comment on above: Order Comment: Speci men Type: URINE SPECIMENOrdering Facility: [facility] Address: [address] [place] [address] Performed By: #### 2 4356-8 ####G[facility]ALES LABORATORYCLIA [id number] [address] Hemoglobin Ql (U) Negative Normal Negative [facility] Comment on above: Order Comment: Speci men Type: URINE SPECIMENOrdering Facility: [facility] Address: [address] [place] [address] Performed By: #### 2 4356-8 ####[facility] LABORATORYCLIA [id number] [place] [address] [place] Ketones Ql (U) Negative Normal Negative [facility] Comment on above: Order Comment: Speci men Type: URINE SPECIMENOrdering Facility: [facility] Address: [address] [place] [address] Performed By: #### 2 4356-8 ####G[facility] LABORATORYCLIA [id number] [place] [address] [facility] [place] Leukocyte esterase Test strip Ql (U) Trace Abnormal Negative [facility] Comment on above: Order Comment: Speci men Type: URINE SPECIMENOrdering Facility: [facility] Address: [address] [place] [address] Performed By: #### 2 4356-8 ####GONZAL[facility] LABORATORYCLIA [id number] [place] [address] [place] Nitrite Ql (U) Negative Normal Negative [facility] Comment on above: Order Comment: Speci men Type: URINE SPECIMENOrdering Facility: [facility] Address: [address] [place] [address] Performed By: #### 2 4356-8 ####G[facility] LABORATORYCLIA [id number] [place] [address] [facility] [place] pH (U) 6.0 [pH] Normal 5.0-8.0 [facility] Comment on above: Order Comment: Speci men Type: URINE SPECIMENOrdering Facility: [facility] Address: [address] [place] [address] Performed By: #### 2 4356-8 ####G[facility]ZAL[facility] LABORATORYCLIA [id number] [place] [address] [place] Protein (U) [Mass/Vol] Negative Normal Negative [facility] Comment on above: Order Comment: Speci men Type: URINE SPECIMENOrdering Facility: [facility] Address: [address] [place] [address] Performed By: #### 2 4356-8 ####G[facility]ZAL[facility] LABORATORYCLIA [id number] [place] [address] [place] RBC LM.HPF (Urine sed) [#/Area] 0-3 /HPF Normal 0-3 /HPF [facility] Comment on above: Order Comment: Speci men Type: URINE SPECIMENOrdering Facility: [facility] Address: [address] [place] [address] Performed By: #### 2 4356-8 ####[facility] LABORATORYCLIA [id number] [address] Specific gravity (U) [Rel density] 1.010 Normal 1.005-1.030 [facility] Comment on above: Order Comment: Speci men Type: URINE SPECIMENOrdering Facility: [facility] Address: [address] [place] [address] Performed By: #### 2 4356-8 ####EMPIRE LABORATORYCLIA [id number] [address] Urobilinogen Ql (U) 0.2 EU/dL Normal 0.2-1.0 EU/dL [facility] Comment on above: Order Comment: Speci men Type: URINE SPECIMENOrdering Facility: [facility] Address: [address] [place] [address] Performed By: #### 2 4356-8 ####EMPIRE LABORATORYCLIA [id number] [address] WBC LM.HPF (Urine sed) [#/Area] 0-5 /HPF Normal 0-5 /HPF [facility] Comment on above: Order Comment: Speci men Type: URINE SPECIMENOrdering Facility: [facility] Address: [address] [place] [address] Performed By: #### 2 4356-8 ####EMPIRE LABORATORYCLIA [id number] [address] [place] XR CHEST 1V FRONTAL [...] silhouette. Other: . IMPRESSION: Unremarkable portable chest Food Beverage Attendant: DELIA Transcribe Date/Time: Aug 09 2023 10:47A Dictated by : ELIZABETH AQUINO MD This examination was interpreted and the report reviewed and electronically signed by: ELIZABETH AQUINO MD on Aug 09 2023 10:48AM EST [id number] Normal [facility] URINE CULTUREon 07-28-2023 Bacteria identified Cx Nom (U) No growth (<1,000 CFU/ml) [facility] Comprehensive metabolic 2000 panelon 07-02-2023 Albumin [Mass/Vol] 3.8 g/dL Low 3.9 - 4.9 g/dL [facility] ALP [Catalytic activity/Vol] 97 U/L 34 - 123 U/L [facility] ALT [Catalytic activity/Vol] 15 U/L 7 - 38 U/L [facility] Anion gap [Moles/Vol] 13 mmol/L 9 - 18 mmol/L [facility] AST [Catalytic activity/Vol] 19 U/L 13 - 35 U/L [facility] Bilirubin [Mass/Vol] 1.1 mg/dL 0.2 - 1 .3 mg/dL [facility] Calcium [Mass/Vol] 8.8 mg/dL 8.5 - 10. 2 mg/dL [facility] Chloride [Moles/Vol] 93 mmol/L Low 97 - 10 5 mmol/L [facility] CO2 [Moles/Vol] 20 mmol/L Low 22 - 30 mmol/L [facility] Creatinine [Mass/Vol] 0.89 mg/dL 0.58 - 0.96 mg/dL [facility] Estimated Glomerular Filtration Rate 65 mL/min/1.73m >=60 mL/min/1.73m [facility] Glucose [Mass/Vol] 97 mg/dL 74 - 99 mg/dL [facility] Potassium [Moles/Vol] 4.6 mmol/L 3.7 - 5.1 mmol/L [facility] Protein [Mass/Vol] 6.1 g/dL Low 6.3 - 8.0 g/dL [facility] Sodium [Moles/Vol] 126 mmol/L Low 136 - 144 mmol/L [facility] Urea nitrogen [Mass/Vol] 9 mg/dL 7 - 21 mg/dL [facility] 12 Lead EKGon 06-29-2023 12 Lead EKG [facility] Cardiovascular Services [address] [place] [address] 12 Lead EKG 06/29/23 1110 MR#: [id number] Acct: [id number] Name: CASANDRA HENRY Rep #: [id number] : 1940 83 From: Kathy Chambers MD [...] ECG Confirmed by JOHANA TAYLOR, LEAH ([id number]), make up editor CHYNA RUIZ ([id number]) on 07/05/2023 10:34:11 AM Referred By: Confirmed By:PARISA CHAMBERS MD 07/05/23 1034 Date Kathy Chambers MD CC: Dr. Sreekanth Cortez DO; Dr. Josselyn Adhikari DO Signed Normal [facility] Absolute lymphocyte countOrd ered By: Josselyn Adhikari on 06-29-2023 Lymphocytes Auto (Unsp spec) [#/Vol] 1.63 10*3/uL 0.83-4.51 [facility] Basic Metabolic Profile (BMP )on 06-29-2023 BUN/CRE 11.9 RATIO Normal 06-11 [facility] Comment on above: Order Comment: 'TROP ' Serial specimen #1, #2 or #3: 1 Performed By: #### L 100.0100, L501.4020, L500.2500 #### [facility] Laboratory [address] [place], [address] CA,Total 9.1 mg/dL Normal 8.5-10.1 [facility] Comment on above: Order Comment: 'TROP ' Serial specimen #1, #2 or #3: 1 Performed By: #### L 100.0100, L501.4020, L500.2500 #### [facility] Laboratory [address] [place], [address] Chloride [Moles/Vol] 97 mmol/L Low 98-107 [facility] Comment on above: Order Comment: 'TROP ' Serial specimen #1, #2 or #3: 1 Performed By: #### L 100.0100, L501.4020, L500.2500 #### [facility] Laboratory [address] [place], [address] CO2 [Moles/Vol] 25.0 mmol/L Normal 21.0-32.0 [facility] Comment on above: Order Comment: 'TROP ' Serial specimen #1, #2 or #3: 1 Performed By: #### L 100.0100, L501.4020, L500.2500 #### [facility] Laboratory [address] [place], [address] Creatinine [Mass/Vol] 0.93 mg/dL Normal 0.55-1.02 [facility] Comment on above: Order Comment: 'TROP ' Serial specimen #1, #2 or #3: 1 Result Comment: The validity of the calculated GFR GFRAA in patients over 70 years has not been determined. Clinical correlation is essential. Performed By: #### L 100.0100, L501.4020, L500.2500 #### [facility] Laboratory [address] [place], [address] ECRCL 35.80 ml/min Normal [facility] Comment on above: Order Comment: 'TROP ' Serial specimen #1, #2 or #3: 1 Performed By: #### L 100.0100, L501.4020, L500.2500 #### [facility] Laboratory [address] [place], [address] EST GFR - AA 75 mL/min Normal >60 [facility] Comment on above: Order Comment: 'TROP ' Serial specimen #1, #2 or #3: 1 Result Comment: Afri can Samoan GFR Calc Performed By: #### L 100.0100, L501.4020, L500.2500 #### [facility] Laboratory [address] [place], [address] GAP 6 Normal 5-15 [facility] Comment on above: Order Comment: 'TROP ' Serial specimen #1, #2 or #3: 1 Performed By: #### L 100.0100, L501.4020, L500.2500 #### [facility] Laboratory [address] [place], [address] GFR/1.73 sq M.predicted among non-blacks MDRD (S/P/Bld) [Vol rate/Area] 62 mL/min/{1.73_m2} Normal >60 [facility] Comment on above: Order Comment: 'TROP ' Serial specimen #1, #2 or #3: 1 Result Comment: Non- GFR Calc Performed By: #### L 100.0100, L501.4020, L500.2500 #### [facility] Laboratory [address] [place], [address] Glucose [Mass/Vol] 102 mg/dL Normal 74-106 [facility] Comment on above: Order Comment: 'TROP ' Serial specimen #1, #2 or #3: 1 Result Comment: Fast ing Glucose result from 100 to 125 mg/dL suggests IMPAIRED HOMEOSTASIS per A.D.A. criteria. Performed By: #### L 100.0100, L501.4020, L500.2500 #### [facility] Laboratory [address] [place], [address] Potassium [Moles/Vol] 4.5 mmol/L Normal 3.5-5.1 [facility] Comment on above: Order Comment: 'TROP ' Serial specimen #1, #2 or #3: 1 Performed By: #### L 100.0100, L501.4020, L500.2500 #### [facility] Laboratory [address] [place], [address] Sodium [Moles/Vol] 128 mmol/L Low 136-145 [facility] Comment on above: Order Comment: 'TROP ' Serial specimen #1, #2 or #3: 1 Performed By: #### L 100.0100, L501.4020, L500.2500 #### [facility] Laboratory [address] [place], [address] Urea nitrogen [Mass/Vol] 11 mg/dL Normal 7-18 [facility] Comment on above: Order Comment: 'TROP ' Serial specimen #1, #2 or #3: 1 Performed By: #### L 100.0100, L501.4020, L500.2500 #### [facility] Laboratory [address] [place], [address] Basophil percentageOrdered B y: Josselyn Adhikari on 06-29-2023 Basophil percentage 0 SEEN /hpf 0-5 [facility] Basophils/100 WBC (Bld) 0.3 % 0-1 [facility] Chloride [Moles/Vol] 97 mmol/L 98-107 [facility] Eosinophils/100 WBC (Bld) 3.6 % 0-5 [facility] Glucose [Mass/Vol] 102 mg/dL 74-106 [facility] Comment on above: Fasting Glucose resu lt from 100 to 125 mg/dL suggests IMPAIRED HOMEOSTASIS per A.D.A. criteria. Neutrophils (Bld) [#/Vol] 6.1 10*3/uL 2.0-7.7 [facility] Neutrophils/100 WBC (Bld) 67.9 % 47-70 [facility] Potassium [Moles/Vol] 4.5 mmol/L 3.5-5.1 [facility] Sodium [Moles/Vol] 128 mmol/L 136-145 [facility] WBC (Bld) [#/Vol] 9.1 10*3/uL 4.4-11.0 [facility] Bilirubin Test strip Ql (U)O rdered By: Josselyn Adhikari on 06-29-2023 Bilirubin Ql (U) Negative Negative [facility] Blood erythrocytes count (nu mber/volume)Ordered By: Josselyn Adhikari on 06-29-2023 RBC (Bld) [#/Vol] 3.58 10*6/uL 4.2-5.4 [facility] Blood hemoglobin measurement (mass/volume)Ordered By: Josselyn Adhikari on 06-29-2023 Hemoglobin (Bld) [Mass/Vol] 10.9 g/dL 12.0-15.0 [facility] Blood lymphocytes/100 leukoc ytesOrdered By: Josselyn Adhikari on 06-29-2023 Lymphocytes/100 WBC (Bld) 18.0 % 19-41 [facility] Blood monocytes/100 leukocyt esOrdered By: Josselyn Adhikari on 06-29-2023 Monocytes/100 WBC (Bld) 9.5 % 0-10 [facility] Blood platelet mean volumeOr dered By: Josselyn Adhikari on 06-29-2023 Platelet mean volume (Bld) [Entitic vol] 9.1 fL 6.2-12.0 [facility] Brain/Head without Contrasto n 06-29-2023 Brain/Head without Contrast [facility] Imaging Services [address] [place] [address] Brain/Head without Contrast MR#: [id number] Acct: [id number] Name: CASANDRA HENRY Rep #: [id number] : 1940 F 83 From: Albin damico MD PCP: Dr. Sreekanth Cortez, DO Status: [facility] ER Study: Brain/Head without Contrast Date of Exam: 03/14 Exam# [id number] Ordering Dr: Josselyn Adhikari DO [id number] STUDY: CT BRAIN WITHOUT CONTRAST REASON FOR [...] 12:29 EST Reading Location ID and State: [address] [place] [address] , Service support , CC: Dr. Sreekanth Cortez, DO; Dr. Josselyn Adhikari DO Food Beverage Attendant: Signed Normal [facility] CBC W/Diff, Automatedon 11-0 Absolute Lymph 1.63 X10 3/uL Normal 0.83-4.51 [facility] Comment on above: Performed By: #### L 100.0100, L501.4020, L500.2500 #### [facility] Laboratory [address] [place], [address] Absolute Neut 6.1 X10 3/uL Normal 2.0-7.7 [facility] Comment on above: Performed By: #### L 100.0100, L501.4020, L500.2500 #### [facility] Laboratory [address] [place], [address] Basophils/100 WBC (Bld) 0.3 % Normal 0-1 [facility] Comment on above: Performed By: #### L 100.0100, L501.4020, L500.2500 #### [facility] Laboratory [address] [place], [address] Eosinophils/100 WBC (Bld) 3.6 % Normal 0-5 [facility] Comment on above: Performed By: #### L 100.0100, L501.4020, L500.2500 #### [facility] Laboratory [address] [place], [address] Erythrocyte distribution width (RBC) [Ratio] 11.8 % Normal 11.6-14.6 [facility] Comment on above: Performed By: #### L 100.0100, L501.4020, L500.2500 #### [facility] Laboratory [address] [place], [address] Hematocrit (Bld) [Volume fraction] 32.5 % Low 37-47 [facility] Comment on above: Performed By: #### L 100.0100, L501.4020, L500.2500 #### [facility] Laboratory [address] [place], [address] Hemoglobin (Bld) [Mass/Vol] 10.9 g/dL Low 12.0-15.0 [facility] Comment on above: Performed By: #### L 100.0100, L501.4020, L500.2500 #### [facility] Laboratory [address] [place], [address] IG% 0.700 Normal 0.0-0.9 [facility] Comment on above: Result Comment: IG% - Immature Granulocytes (promyelocytes, myelocytes and metamyelocytes) > 1% indicates that a LEFT SHIFT is Present. Performed By: #### L 100.0100, L501.4020, L500.2500 #### [facility] Laboratory [address] [place], [address] Lymphocytes/100 WBC (Bld) 18.0 % Low 19-41 [facility] Comment on above: Performed By: #### L 100.0100, L501.4020, L500.2500 #### [facility] Laboratory [address] [place], [address] MCH (RBC) [Entitic mass] 30.4 pg Normal 27.0-32.0 [facility] Comment on above: Performed By: #### L 100.0100, L501.4020, L500.2500 #### [facility] Laboratory [address] [place], [address] MCHC (RBC) [Mass/Vol] 33.5 g/dL Normal 32-36 [facility] Comment on above: Performed By: #### L 100.0100, L501.4020, L500.2500 #### [facility] Laboratory [address] [place], [address] MCV (RBC) [Entitic vol] 90.8 fL Normal 81-99 [facility] Comment on above: Performed By: #### L 100.0100, L501.4020, L500.2500 #### [facility] Laboratory [address] [place], [address] Monocytes/100 WBC (Bld) 9.5 % Normal 0-10 [facility] Comment on above: Performed By: #### L 100.0100, L501.4020, L500.2500 #### [facility] Laboratory [address] [place], [address] Neutrophils/100 WBC (Bld) 67.9 % Normal 47-70 [facility] Comment on above: Performed By: #### L 100.0100, L501.4020, L500.2500 #### [facility] Laboratory [address] [place], [address] Nucleated RBC (Bld) [#/Vol] 0 10*3/uL Normal 0-5 [facility] Comment on above: Performed By: #### L 100.0100, L501.4020, L500.2500 #### [facility] Laboratory [address] [place], [address] Platelet mean volume (Bld) [Entitic vol] 9.1 fL Normal 6.2-12.0 [facility] Comment on above: Performed By: #### L 100.0100, L501.4020, L500.2500 #### [facility] Laboratory [address] [place], [address] Platelets (Bld) [#/Vol] 338 10*3/uL Normal 150-450 [facility] Comment on above: Performed By: #### L 100.0100, L501.4020, L500.2500 #### [facility] Laboratory [address] [place], [address] RBC (Bld) [#/Vol] 3.58 10*6/uL Low 4.2-5.4 [facility] Comment on above: Performed By: #### L 100.0100, L501.4020, L500.2500 #### [facility] Laboratory [address] [place], [address] RDW SD 38.9 fl Normal 35.1-43.9 [facility] Comment on above: Performed By: #### L 100.0100, L501.4020, L500.2500 #### [facility] Laboratory [address] [place], [address] WBC (Bld) [#/Vol] 9.1 10*3/uL Normal 4.4-11.0 [facility] Comment on above: Performed By: #### L 100.0100, L501.4020, L500.2500 #### [facility] Laboratory [address] [place], [address] Determination of erythrocyte mean corpuscular volume (MCV)Ordered By: Josselyn Adhikari on 06-29-2023 MCV (RBC) [Entitic vol] 90.8 fL 81-99 [facility] Emergency Department Summary on 06-29-2023 Emergency Department Summary [facility] Medical Records Department [address] [place] [address] Emergency Department Summary 06/29/23 MR#: [id number] Acct: [id number] Name: CASANDRA HENRY Rep #: [id number] : 1940 83 From: Josselyn Adhikari DO [...] to a (more content not included)... Normal [facility] Hematocrit Auto (Bld) [Volum e fraction]Ordered By: Josselyn Adhikari on 06-29-2023 Hematocrit (Bld) [Volume fraction] 32.5 % 37-47 [facility] Ketones Test strip Ql (U)Ord ered By: Josselyn Adhikari on 06-29-2023 Ketones Ql (U) Negative Negative [facility] L501.4020on 06-29-2023 TROPONIN-I HS 8 pg/mL Normal 3.0-54.0 [facility] Comment on above: Order Comment: 'TROP ' Serial specimen #1, #2 or #3: 1 Result Comment: Plea se Note: New Test Units and Gender Specific Reference Ranges. For more information see Policy Stat Procedure [place] High Sensitivity Troponin (TNIH) and attachments. Performed By: #### L 100.0100, L501.4020, L500.2500 #### [facility] Laboratory [address] [place], [address] Laboratory - Chemistry and C hemistry - challengeOrdered By: Josselyn Adhikari on 06-29-2023 CO2 [Moles/Vol] 25.0 mmol/L 21.0-32.0 [facility] Urea nitrogen/Creatinine [Mass ratio] 11.9 mg/mg 10-20 [facility] Laboratory - Hematology and Cell countsOrdered By: Josselyn Adhikari on 06-29-2023 Erythrocyte distribution width (RBC) [Entitic vol] 38.9 fL 35.1-43.9 [facility] Erythrocyte distribution width (RBC) [Ratio] 11.8 % 11.6-14.6 [facility] Immature granulocytes/100 WBC (Bld) 0.700 % 0.0-0.9 [facility] Comment on above: IG% - Immature Granu locytes (promyelocytes, myelocytes and metamyelocytes) > 1% indicates that a LEFT SHIFT is Present. MCH (RBC) [Entitic mass] 30.4 pg 27.0-32.0 [facility] Nucleated RBC/100 WBC (Bld) [Ratio] 0 % 0-5 [facility] MCHC Auto (RBC) [Mass/Vol]Or dered By: Josselyn Adhikari on 06-29-2023 MCHC (RBC) [Mass/Vol] 33.5 g/dL 32-36 [facility] Mucus LM Ql (Urine sed)Order ed By: Josselyn Adhikari on 06-29-2023 Mucus Ql (Urine sed) 0 SEEN /hpf [facility] Nitrite Test strip Ql (U)Ord ered By: Josselyn Onofre on 06-29-2023 Nitrite Ql (U) Negative Negative [facility] No Panel InformationOrdered By: Josselyn Adhikari on 06-29-2023 Estimated Creatinine Clearance Calc 35.80 ml/min [facility] Estimated GFR (MDRD) Amer 75 mL/min >60 [facility] Comment on above: GFR Calc Estimated GFR (MDRD) Non-Af Amer 62 mL/min >60 [facility] Comment on above: Non- GFR Calc Troponin I High Sensitivity 8 pg/mL 3.0-54.0 [facility] Comment on above: Please Note: New Kimmy t Units and Gender Specific Reference Ranges. For more information see Policy Stat Procedure [place] High Sensitivity Troponin (TNIH) and attachments. Platelets bldOrdered By: Wendy Adhikari on 06-29-2023 Platelets (Bld) [#/Vol] 338 10*3/uL 150-450 [facility] Protein Test strip Ql (U)Ord ered By: Josselyn Adhikari on 06-29-2023 Protein Ql (U) Negative Negative [facility] Serum or plasma calcium lillie urement (mass/volume)Ordered By: Josselyn Adhikari on 06-29-2023 Calcium [Mass/Vol] 9.1 mg/dL 8.5-10.1 [facility] Serum or plasma creatinine m easurement (mass/volume)Ordered By: Josselyn Adhikari on 06-29-2023 Creatinine [Mass/Vol] 0.93 mg/dL 0.55-1.02 [facility] Comment on above: The validity of the calculated GFR & GFRAA in patients over 70 years has not been determined. Clinical correlation is essential. Serum or plasma urea nitroge n measurement (mass/volume)Ordered By: [facility] Ad[facility] on 06-29-2023 Urea nitrogen [Mass/Vol] 11 mg/dL 7-18 [facility] Squamous epithelial cells de tection in urine sediment by light microscopyOrdered By: [facility] Adh[facility]ari on 06-29-2023 Epithelial cells.squamous LM Ql (Urine sed) 0 SEEN /hpf 5-10 [facility] Thin prep Papanicolaou smear with manual screeningOrdered By: [facility] Ad[facility] on 06-29-2023 Thin prep Papanicolaou smear with manual screening 6 5-15 [facility] Urinalysis, Completeon 06-29 BACTERIA 0 SEEN Normal None Seen [facility] Comment on above: Order Comment: CLEAN CATCH Performed By: #### L 400.0001 #### [facility] Laboratory [address] [place], [address] EPI,SQUAMOUS 0 SEEN Normal 5-10 [facility] Comment on above: Order Comment: CLEAN CATCH Performed By: #### L 400.0001 #### [facility] Laboratory [address] [place], [address] Mucus Ql (Urine sed) 0 SEEN Normal [facility] Comment on above: Order Comment: CLEAN CATCH Performed By: #### L 400.0001 #### [facility] Laboratory [address] [place], [address] RBC 0 SEEN Normal 0-5 [facility] Comment on above: Order Comment: CLEAN CATCH Performed By: #### L 400.0001 #### [facility] Laboratory [address] [place], [address] WBC 0 SEEN Normal 0-5 [facility] Comment on above: Order Comment: CLEAN CATCH Performed By: #### L 400.9122 #### [facility] Laboratory [address] [place], [address] Urinalysis, Routine (Dipstic k)on 06-29-2023 BILIRUBIN URINE Normal Negative [facility] Comment on above: Order Comment: CLEAN CATCH Performed By: #### L 400.2010 #### [facility] Laboratory [address] [place], [address] Clarity (U) Normal Clear [facility] Comment on above: Order Comment: CLEAN CATCH Performed By: #### L 400.2010 #### [facility] Laboratory [address] [place], [address] Color (U) Normal Yellow [facility] Comment on above: Order Comment: CLEAN CATCH Performed By: #### L 400.2010 #### [facility] Laboratory [address] [place], [address] GLUCOSE, UR Normal Normal [facility] Comment on above: Order Comment: CLEAN CATCH Performed By: #### L 400.2010 #### [facility] Laboratory [address] [place], [address] KETONE UR Normal Negative [facility] Comment on above: Order Comment: CLEAN CATCH Performed By: #### L 400.2010 #### [facility] Laboratory [address] [place], [address] LEUK ESTERASE Normal Negative [facility] Comment on above: Order Comment: CLEAN CATCH Performed By: #### L 400.2010 #### [facility] Laboratory [address] [place], [address] Nitrite Ql (U) Normal Negative [facility] Comment on above: Order Comment: CLEAN CATCH Performed By: #### L 400.2010 #### [facility] Laboratory [address] [place], [address] OCCULT BLOOD-UR Normal Negative [facility] Comment on above: Order Comment: CLEAN CATCH Performed By: #### L 400.2010 #### [facility] Laboratory [address] [place], [address] pH UR Normal 5.0 - 8.0 [facility] Comment on above: Order Comment: CLEAN CATCH Performed By: #### L 400.2010 #### [facility] Laboratory [address] [place], [address] PROT DIPSTX Normal Negative [facility] Comment on above: Order Comment: CLEAN CATCH Performed By: #### L 400.2010 #### [facility] Laboratory [address] [place], [address] SP.GR. DIPSTX Normal 1.002-1.030 [facility] Comment on above: Order Comment: CLEAN CATCH Performed By: #### L 400.2010 #### [facility] Laboratory [address] [place], [address] UROBILI Normal Normal [facility] Comment on above: Order Comment: CLEAN CATCH Performed By: #### L 400.2010 #### [facility] Laboratory [address] [place], [address] UR Preservative Normal [facility] Comment on above: Order Comment: CLEAN CATCH Performed By: #### L 400.2010 #### [facility] Laboratory [address] [place], [address] Urine blood detectionOrdered By: Josselyn Adhikari on 06-29-2023 RBC Ql (U) Negative Negative [facility] RBC Ql (U) 0 SEEN /hpf 0-5 [facility] Urine clarityOrdered By: Wendy Adhikari on 06-29-2023 Clarity (U) Clear Clear [facility] Urine color determinationOrd ered By: Josselyn Adhikari on 06-29-2023 Color (U) Yellow Yellow [facility] Urine glucose detectionOrder ed By: Josselyn Adhikari on 06-29-2023 Glucose Ql (U) Normal mg/dl Normal [facility] Urine leukocyte esterase det ection by dipstickOrdered By: Josselyn Finneyyordan on 06-29-2023 Leukocyte esterase Test strip Ql (U) 25 /ul Negative [facility] Urine pHOrdered By: Josselyn Un gur on 06-29-2023 pH (U) 7.0 [pH] 5.0 - 8.0 [facility] Urine sediment bacteria coun t by microscopy (number/high power field)Ordered By: Josselyn Onofre on 06-29-2023 Bacteria LM.HPF (Urine sed) [#/Area] 0 /[HPF] None Seen [facility] Urine specific gravity measu rementOrdered By: Josselyn Finneyyordan on 06-29-2023 Specific gravity (U) [Rel density] 1.005 1.002-1.030 [facility] Urobilinogen Auto test strip Ql (U)Ordered By: Josselyn Finneyyordan on 06-29-2023 Urobilinogen Ql (U) Normal mg/dl Normal [facility] CBC W Auto Differential pane l (Bld)on 06-16-2023 Basophils (Bld) [#/Vol] 0.05 10*3/uL <0.11 k/uL [facility] Basophils/100 WBC (Bld) 0.4 % [facility] Differential cell count method Nom (Bld) Auto [facility] Eosinophils (Bld) [#/Vol] 0.35 10*3/uL <0.46 k/uL [facility] Eosinophils/100 WBC (Bld) 2.8 % [facility] Erythrocyte distribution width (RBC) [Ratio] 11.9 % 11.5 - 15.0 % [facility] Hematocrit (Bld) [Volume fraction] 37.1 % 36.0 - 46.0 % [facility] Hemoglobin (Bld) [Mass/Vol] 12.4 g/dL 11.5 - 15.5 g/dL [facility] Immature granulocytes (Bld) [#/Vol] 0.05 10*3/uL <0.10 k/uL [facility] Immature granulocytes/100 WBC (Bld) 0.4 % [facility] Lymphocytes (Bld) [#/Vol] 2.24 10*3/uL 1.00 - 4.00 k/uL [facility] Lymphocytes/100 WBC (Bld) 18.1 % [facility] MCH (RBC) [Entitic mass] 30.5 pg 26.0 - 34.0 pg [facility] MCHC (RBC) [Mass/Vol] 33.4 g/dL 30.5 - 36.0 g/dL [facility] MCV (RBC) [Entitic vol] 91.4 fL 80.0 - 100.0 fL [facility] Monocytes (Bld) [#/Vol] 1.18 10*3/uL High <0.87 k/uL [facility] Monocytes/100 WBC (Bld) 9.5 % [facility] Neutrophils (Bld) [#/Vol] 8.52 10*3/uL High 1.45 - 7.50 k/uL [facility] Neutrophils/100 WBC (Bld) 68.8 % [facility] Nucleated RBC (Bld) [#/Vol] <0.01 k/uL [facility] Nucleated RBC/100 WBC (Bld) [Ratio] 0.0 /100 WBC [facility] Platelet mean volume (Bld) [Entitic vol] 10.3 fL 9.0 - 12.7 fL [facility] Platelets (Bld) [#/Vol] 332 10*3/uL 150 - 400 k/uL [facility] RBC (Bld) [#/Vol] 4.06 10*6/uL 3.90 - 5.2 0 m/uL [facility] WBC (Bld) [#/Vol] 12.39 10*3/uL High 3.70 - 11 .00 k/uL [facility] Comprehensive metabolic 2000 panelon 06-16-2023 Albumin [Mass/Vol] 4.1 g/dL 3.9 - 4.9 g/dL [facility] ALP [Catalytic activity/Vol] 127 U/L High 34 - 123 U/L [facility] ALT [Catalytic activity/Vol] 14 U/L 7 - 38 U/L [facility] Anion gap [Moles/Vol] 15 mmol/L 9 - 18 mmol/L [facility] AST [Catalytic activity/Vol] 21 U/L 13 - 35 U/L [facility] Bilirubin [Mass/Vol] 1.2 mg/dL 0.2 - 1 .3 mg/dL [facility] Calcium [Mass/Vol] 9.6 mg/dL 8.5 - 10. 2 mg/dL [facility] Chloride [Moles/Vol] 95 mmol/L Low 97 - 10 5 mmol/L [facility] CO2 [Moles/Vol] 19 mmol/L Low 22 - 30 mmol/L [facility] Creatinine [Mass/Vol] 0.93 mg/dL 0.58 - 0.96 mg/dL [facility] Estimated Glomerular Filtration Rate 62 mL/min/1.73m >=60 mL/min/1.73m [facility] Glucose [Mass/Vol] 100 mg/dL High 74 - 99 mg/dL [facility] Potassium [Moles/Vol] 4.8 mmol/L 3.7 - 5.1 mmol/L [facility] Protein [Mass/Vol] 7.0 g/dL 6.3 - 8.0 g/dL [facility] Sodium [Moles/Vol] 129 mmol/L Low 136 - 144 mmol/L [facility] Urea nitrogen [Mass/Vol] 12 mg/dL 7 - 21 mg/dL [facility] UA DIP, URINE (POC)on 2022 BILIRUBIN UA (POCT) Negative Negative [facility] CLARITY UA (POCT) Clear [facility] COLOR UA (POCT) Yellow [facility] GLUCOSE UA (POCT) Negative Negative mg/dL [facility] Hemoglobin Ql (U) Negative Negative [facility] KETONE UA (POCT) Negative Negative mg/dL [facility] LEUKOCYTES UA (POCT) Small Abnormal Negative [facility] NITRITE UA (POCT) Negative Negative [facility] PH UA (POCT) 6.5 4.5 - 8.0 [facility] Protein Ql (U) Negative Negative mg/dL [facility] SPECIFIC GRAVITY UA (POCT) 1.010 1.005 - 1.030 [facility] UROBILINOGEN UA (POCT) 0.2 E.U./dL Bre l E.U./dL [facility] UA DIP, URINE (POC)on 2022 BILIRUBIN UA (POCT) Negative Negative [facility] CLARITY UA (POCT) Clear [facility] COLOR UA (POCT) Yellow [facility] GLUCOSE UA (POCT) Negative Negative mg/dL [facility] HEMOGLOBIN/BLOOD UA (POCT) Negative Negative [facility] KETONE UA (POCT) Negative Negative mg/dL [facility] LEUKOCYTES UA (POCT) Trace Abnormal Negative [facility] NITRITE UA (POCT) Negative Negative [facility] PH UA (POCT) 6.0 4.5 - 8.0 [facility] Protein Ql (U) Negative Negative mg/dL [facility] SPECIFIC GRAVITY UA (POCT) 1.010 1.005 - 1.030 [facility] UROBILINOGEN UA (POCT) 0.2 E.U./dL Bre l E.U./dL [facility] Urine Cultureon 03-22-2023 URC Mixed Gram Positive Organisms [place] Count 1000-10,000 MIXC Mixed contaminants. Submit a new specimen if indicated. Normal [facility] Comment on above: Performed By: #### M 100.2200 #### [facility] Laboratory [address] [place], [address] 12 Lead EKGon 03-20-2023 12 Lead EKG [facility] [address] [place] [address] 12 Lead EKG 03/20/23 1732 MR#: [id number] Acct: [id number] Name: CASANDRA HENRY Rep #: [id number] : 1940 83 From: Kathy Chambers MD [...] Abnormal ECG Confirmed by JOHANA TAYLOR, LEAH ([id number]), make up editor CHYNA RUIZ ([id number]) on 03/25/2023 8:31:15 AM Referred By: Confirmed By:PARISA CHAMBERS MD 03/25/23 0831 Date Kathy Chambers MD CC: Dr. Frederick Carrasco, DO; Dr. Sreekanth Cortez DO Signed Normal [facility] Absolute lymphocyte countOrd ered By: Frederick Carrasco on 03-20-2023 Lymphocytes Auto (Unsp spec) [#/Vol] 2.05 10*3/uL 0.83-4.51 [facility] Basic Metabolic Profile (BMP )on 03-20-2023 BUN/CRE 11.9 RATIO Normal 10-20 [facility] Comment on above: Order Comment: 'TROP ' Serial specimen #1, #2 or #3: 1 Performed By: #### L 500.2500, L100.0100, L501.4020 ####[facility] [address] [place], [address] CA,Total 9.3 mg/dL Normal 8.5-10.1 [facility] Comment on above: Order Comment: 'TROP ' Serial specimen #1, #2 or #3: 1 Performed By: #### L 500.2500, L100.0100, L501.4020 ####[facility] [address] [place], [address] Chloride [Moles/Vol] 94 mmol/L Low 98-107 [facility] Comment on above: Order Comment: 'TROP ' Serial specimen #1, #2 or #3: 1 Performed By: #### L 500.2500, L100.0100, L501.4020 ####[facility] [address] [place], [address] CO2 [Moles/Vol] 28.0 mmol/L Normal 21.0-32.0 [facility] Comment on above: Order Comment: 'TROP ' Serial specimen #1, #2 or #3: 1 Performed By: #### L 500.2500, L100.0100, L501.4020 ####[facility] [address] [place], [address] Creatinine [Mass/Vol] 1.09 mg/dL High 0.55-1.02 [facility] Comment on above: Order Comment: 'TROP ' Serial specimen #1, #2 or #3: 1 Result Comment: The validity of the calculated GFR GFRAA in patients over 70 years has not been determined. Clinical correlation is essential. Performed By: #### L 500.2500, L100.0100, L501.4020 ####[facility] [address] [place], [address] ECRCL 30.54 ml/min Normal [facility] Comment on above: Order Comment: 'TROP ' Serial specimen #1, #2 or #3: 1 Performed By: #### L 500.2500, L100.0100, L501.4020 ####[facility] [address] [place], [address] EST GFR - AA 62 mL/min Normal >60 [facility] Comment on above: Order Comment: 'TROP ' Serial specimen #1, #2 or #3: 1 Result Comment: Afri can [place] GFR Calc Performed By: #### L 500.2500, L100.0100, L501.4020 ####[facility] [address] [place], [address] GAP 5 Normal 5-15 [facility] Comment on above: Order Comment: 'TROP ' Serial specimen #1, #2 or #3: 1 Performed By: #### L 500.2500, L100.0100, L501.4020 ####[facility] [address] [place], [address] GFR/1.73 sq M.predicted among non-blacks MDRD (S/P/Bld) [Vol rate/Area] 51 mL/min/{1.73_m2} Low >60 [facility] Comment on above: Order Comment: 'TROP ' Serial specimen #1, #2 or #3: 1 Result Comment: Non- GFR Calc Performed By: #### L 500.2500, L100.0100, L501.4020 ####[facility] [address] [place], [address] Glucose [Mass/Vol] 120 mg/dL High 74-106 [facility] Comment on above: Order Comment: 'TROP ' Serial specimen #1, #2 or #3: 1 Result Comment: Fast ing Glucose result from 100 to 125 mg/dL suggests IMPAIRED HOMEOSTASIS per A.D.A. criteria. Performed By: #### L 500.2500, L100.0100, L501.4020 ####[facility] [address] [place], [address] Potassium [Moles/Vol] 4.3 mmol/L Normal 3.5-5.1 [facility] Comment on above: Order Comment: 'TROP ' Serial specimen #1, #2 or #3: 1 Performed By: #### L 500.2500, L100.0100, L501.4020 ####[facility] [address] [place], [address] Sodium [Moles/Vol] 127 mmol/L Low 136-145 [facility] Comment on above: Order Comment: 'TROP ' Serial specimen #1, #2 or #3: 1 Performed By: #### L 500.2500, L100.0100, L501.4020 ####[facility] [address] [place], [address] Urea nitrogen [Mass/Vol] 13 mg/dL Normal 7-18 [facility] Comment on above: Order Comment: 'TROP ' Serial specimen #1, #2 or #3: 1 Performed By: #### L 500.2500, L100.0100, L501.4020 ####[facility] [address] [place], [address] Basophil percentageOrdered B y: Frederick Carrasco on 03-20-2023 Basophil percentage 10-25 SEEN /hpf 0-5 [facility] Basophils/100 WBC (Bld) 0.3 % 0-1 [facility] Chloride [Moles/Vol] 94 mmol/L 98-107 [facility] Eosinophils/100 WBC (Bld) 4.3 % 0-5 [facility] Glucose [Mass/Vol] 120 mg/dL 74-106 [facility] Comment on above: Fasting Glucose resu lt from 100 to 125 mg/dL suggests IMPAIRED HOMEOSTASIS per A.D.A. criteria. Neutrophils (Bld) [#/Vol] 5.8 10*3/uL 2.0-7.7 [facility] Neutrophils/100 WBC (Bld) 63.0 % 47-70 [facility] Potassium [Moles/Vol] 4.3 mmol/L 3.5-5.1 [facility] Sodium [Moles/Vol] 127 mmol/L 136-145 [facility] WBC (Bld) [#/Vol] 9.2 10*3/uL 4.4-11.0 [facility] Bilirubin Test strip Ql (U)O rdered By: Frederick Carrasco on 03-20-2023 Bilirubin Ql (U) Negative Negative [facility] Blood erythrocytes count (nu mber/volume)Ordered By: Frederick Carrasco on 03-20-2023 RBC (Bld) [#/Vol] 4.17 10*6/uL 4.2-5.4 [facility] Blood hemoglobin measurement (mass/volume)Ordered By: Frederick Carrasco on 03-20-2023 Hemoglobin (Bld) [Mass/Vol] 13.0 g/dL 12.0-15.0 [facility] Blood lymphocytes/100 leukoc ytesOrdered By: Frederick Carrasco on 03-20-2023 Lymphocytes/100 WBC (Bld) 22.2 % 19-41 [facility] Blood monocytes/100 leukocyt esOrdered By: Frederick Carrasco on 03-20-2023 Monocytes/100 WBC (Bld) 9.9 % 0-10 [facility] Blood platelet mean volumeOr dered By: Frederick Carrasco on 03-20-2023 Platelet mean volume (Bld) [Entitic vol] 8.6 fL 6.2-12.0 [facility] CBC W/Diff, Automatedon 07-2 Absolute Lymph 2.05 X10 3/uL Normal 0.83-4.51 [facility] Comment on above: Performed By: #### L 500.2500, L100.0100, L501.4020 ####[facility] [address] [place], [address] Absolute Neut 5.8 X10 3/uL Normal 2.0-7.7 [facility] Comment on above: Performed By: #### L 500.2500, L100.0100, L501.4020 ####[facility] [address] [place], [address] Basophils/100 WBC (Bld) 0.3 % Normal 0-1 [facility] Comment on above: Performed By: #### L 500.2500, L100.0100, L501.4020 ####[facility] [address] [place], [address] Eosinophils/100 WBC (Bld) 4.3 % Normal 0-5 [facility] Comment on above: Performed By: #### L 500.2500, L100.0100, L501.4020 ####[facility] [address] [place], [address] Erythrocyte distribution width (RBC) [Ratio] 11.5 % Low 11.6-14.6 [facility] Comment on above: Performed By: #### L 500.2500, L100.0100, L501.4020 ####[facility] [facility] [address] [place], [address] Hematocrit (Bld) [Volume fraction] 37.2 % Normal 37-47 [facility] Comment on above: Performed By: #### L 500.2500, L100.0100, L501.4020 ####[facility] [address] [place], [address] Hemoglobin (Bld) [Mass/Vol] 13.0 g/dL Normal 12.0-15.0 [facility] Comment on above: Performed By: #### L 500.2500, L100.0100, L501.4020 ####[facility] [address] [place], [address] IG% 0.300 Normal 0.0-0.9 [facility] Comment on above: Result Comment: IG% - Immature Granulocytes (promyelocytes, myelocytes and metamyelocytes) > 1% indicates that a LEFT SHIFT is Present. Performed By: #### L 500.2500, L100.0100, L501.4020 ####[facility] [address] [place], [address] Lymphocytes/100 WBC (Bld) 22.2 % Normal 19-41 [facility] Comment on above: Performed By: #### L 500.2500, L100.0100, L501.4020 ####[facility] [address] [place], [address] MCH (RBC) [Entitic mass] 31.2 pg Normal 27.0-32.0 [facility] Comment on above: Performed By: #### L 500.2500, L100.0100, L501.4020 ####[facility] [address] [place], [address] MCHC (RBC) [Mass/Vol] 34.9 g/dL Normal 32-36 [facility] Comment on above: Performed By: #### L 500.2500, L100.0100, L501.4020 ####[facility] [address] [place], [address] MCV (RBC) [Entitic vol] 89.2 fL Normal 81-99 [facility] Comment on above: Performed By: #### L 500.2500, L100.0100, L501.4020 ####[facility] [address] [place], [address] Monocytes/100 WBC (Bld) 9.9 % Normal 0-10 [facility] Comment on above: Performed By: #### L 500.2500, L100.0100, L501.4020 ####[facility] [address] [place], [address] Neutrophils/100 WBC (Bld) 63.0 % Normal 47-70 [facility] Comment on above: Performed By: #### L 500.2500, L100.0100, L501.4020 ####[facility] [address] [place], [address] Nucleated RBC (Bld) [#/Vol] 0 10*3/uL Normal 0-5 [facility] Comment on above: Performed By: #### L 500.2500, L100.0100, L501.4020 ####[facility] [address] [place], [address] Platelet mean volume (Bld) [Entitic vol] 8.6 fL Normal 6.2-12.0 [facility] Comment on above: Performed By: #### L 500.2500, L100.0100, L501.4020 ####[facility] [address] [place], [address] Platelets (Bld) [#/Vol] 353 10*3/uL Normal 150-450 [facility] Comment on above: Performed By: #### L 500.2500, L100.0100, L501.4020 ####[facility] [address] [place], [address] RBC (Bld) [#/Vol] 4.17 10*6/uL Low 4.2-5.4 [facility] Comment on above: Performed By: #### L 500.2500, L100.0100, L501.4020 ####[facility] [address] [place], [address] RDW SD 37.2 fl Normal 35.1-43.9 [facility] Comment on above: Performed By: #### L 500.2500, L100.0100, L501.4020 ####[facility] [address] [place], [address] WBC (Bld) [#/Vol] 9.2 10*3/uL Normal 4.4-11.0 [facility] Comment on above: Performed By: #### L 500.2500, L100.0100, L501.4020 ####[facility] [address] [place], [address] Culture, urineOrdered By: Raman Carrasco on 03-20-2023 Bacteria identified Cx Nom (U) Positive [facility] Determination of erythrocyte mean corpuscular volume (MCV)Ordered By: Frederick Carrasco on 03-20-2023 MCV (RBC) [Entitic vol] 89.2 fL 81-99 [facility] Emergency Department Summary on 03-20-2023 Emergency Department Summary [facility] Medical Records Department [address] [place] [address] Emergency Department Summary 03/20/23 MR#: [id number] Acct: [id number] Name: CASANDRA HENRY Rep #: [id number] : 1940 83 From: Frederick Carrasco DO [...] or chills. Patient denies any visual changes. [facility] Medical History (Updated 03/20/23 @ 18:59 by [...] are cons (more content not included)... Normal [facility] Hematocrit Auto (Bld) [Volum e fraction]Ordered By: Frederick Carrasco on 03-20-2023 Hematocrit (Bld) [Volume fraction] 37.2 % 37-47 [facility] Ketones Test strip Ql (U)Ord ered By: Frederick Carrasco on 03-20-2023 Ketones Ql (U) Negative Negative [facility] L501.4020on 03-20-2023 TROPONIN-I HS 5 pg/mL Normal 3.0-54.0 [facility] Comment on above: Order Comment: 'TROP ' Serial specimen #1, #2 or #3: 1 Result Comment: Plepako chi Note: New Test Units and Gender Specific Reference Ranges. For more information see Policy Stat Procedure [place] High Sensitivity Troponin (TNIH) and attachments. Performed By: #### L 500.2500, L100.0100, L501.4020 ####[facility] [address] [place], [address] Laboratory - Chemistry and C hemistry - challengeOrdered By: Frederick Carrasco on 03-20-2023 CO2 [Moles/Vol] 28.0 mmol/L 21.0-32.0 [facility] Urea nitrogen/Creatinine [Mass ratio] 11.9 mg/mg 10-20 [facility] Laboratory - Hematology and Cell countsOrdered By: Frederick Carrasco on 03-20-2023 Erythrocyte distribution width (RBC) [Entitic vol] 37.2 fL 35.1-43.9 [facility] Erythrocyte distribution width (RBC) [Ratio] 11.5 % 11.6-14.6 [facility] Immature granulocytes/100 WBC (Bld) 0.300 % 0.0-0.9 [facility] Comment on above: IG% - Immature Granu locytes (promyelocytes, myelocytes and metamyelocytes) > 1% indicates that a LEFT SHIFT is Present. MCH (RBC) [Entitic mass] 31.2 pg 27.0-32.0 [facility] Nucleated RBC/100 WBC (Bld) [Ratio] 0 % 0-5 [facility] MCHC Auto (RBC) [Mass/Vol]Or dered By: Frederick Carrasco on 03-20-2023 MCHC (RBC) [Mass/Vol] 34.9 g/dL 32-36 [facility] Mucus LM Ql (Urine sed)Order ed By: Frederick Carrasco on 03-20-2023 Mucus Ql (Urine sed) 0 SEEN /hpf [facility] Nitrite Test strip Ql (U)Ord ered By: Frederick Carrasco on 03-20-2023 Nitrite Ql (U) Negative Negative [facility] No Panel InformationOrdered By: Frederick Carrasco on 03-20-2023 Estimated Creatinine Clearance Calc 30.54 ml/min [facility] Estimated GFR (MDRD) Amer 62 mL/min >60 [facility] Comment on above: GFR Calc Estimated GFR (MDRD) Non-Af Amer 51 mL/min >60 [facility] Comment on above: Non- GFR Calc Troponin I High Sensitivity 5 pg/mL 3.0-54.0 [facility] Comment on above: Please Note: New Kimmy t Units and Gender Specific Reference Ranges. For more information see Policy Stat Procedure [place] High Sensitivity Troponin (TNIH) and attachments. Platelets bldOrdered By: Katerina Carrasco on 03-20-2023 Platelets (Bld) [#/Vol] 353 10*3/uL 150-450 [facility] Protein Test strip Ql (U)Ord ered By: Frederick Carrasco on 03-20-2023 Protein Ql (U) Negative Negative [facility] Serum or plasma calcium lillie urement (mass/volume)Ordered By: Frederick Carrasco on 03-20-2023 Calcium [Mass/Vol] 9.3 mg/dL 8.5-10.1 [facility] Serum or plasma creatinine m easurement (mass/volume)Ordered By: Frederick Carrasco on 03-20-2023 Creatinine [Mass/Vol] 1.09 mg/dL 0.55-1.02 [facility] Comment on above: The validity of the calculated GFR & GFRAA in patients over 70 years has not been determined. Clinical correlation is essential. Serum or plasma urea nitroge n measurement (mass/volume)Ordered By: Frederick Carrasco on 03-20-2023 Urea nitrogen [Mass/Vol] 13 mg/dL 7-18 [facility] Squamous epithelial cells de tection in urine sediment by light microscopyOrdered By: Frederick Carrasco on 03-20-2023 Epithelial cells.squamous LM Ql (Urine sed) 0 SEEN /hpf 5-10 [facility] Thin prep Papanicolaou smear with manual screeningOrdered By: Frederick Carrasco on 03-20-2023 Thin prep Papanicolaou smear with manual screening 5 5-15 [facility] Urinalysis, Completeon 03-20 BACTERIA 1+ /hpf Normal None Seen [facility] Comment on above: Order Comment: CLEAN CATCH Performed By: #### L 400.0001 ####[facility] [address] [place], [place], [id number] WBC 10-25 SEEN Normal 0-5 [facility] Comment on above: Order Comment: CLEAN CATCH Performed By: #### L 400.0001 ####[facility] [address] [place], [address] EPI,SQUAMOUS 0 SEEN Normal 5-10 [facility] Comment on above: Order Comment: CLEAN CATCH Performed By: #### L 400.0001 ####[facility] [address] [place], [address] Mucus Ql (Urine sed) 0 SEEN Normal [facility] Comment on above: Order Comment: CLEAN CATCH Performed By: #### L 400.0001 ####[facility] [address] [place], [place], [id number] RBC 0 SEEN Normal 0-5 [facility] Comment on above: Order Comment: CLEAN CATCH Performed By: #### L 400.0001 ####[facility] [address] [place], [place], [id number] Urine blood detectionOrdered By: Frederick Carrasco on 03-20-2023 RBC Ql (U) Negative Negative [facility] RBC Ql (U) 0 SEEN /hpf 0-5 [facility] Urine clarityOrdered By: Katerina Carrasco on 03-20-2023 Clarity (U) Clear Clear [facility] Urine color determinationOrd ered By: Frederick Carrasco on 03-20-2023 Color (U) Yellow Yellow [facility] Urine glucose detectionOrder ed By: Frederick Carrasco on 03-20-2023 Glucose Ql (U) Normal mg/dl Normal [facility] Urine leukocyte esterase det ection by dipstickOrdered By: Frederick Carrasco on 03-20-2023 Leukocyte esterase Test strip Ql (U) 500 /ul Negative [facility] Urine pHOrdered By: Frederick yan on 03-20-2023 pH (U) 6.5 [pH] 5.0 - 8.0 [facility] Urine sediment bacteria coun t by microscopy (number/high power field)Ordered By: Frederick Carrasco on 03-20-2023 Bacteria LM.HPF (Urine sed) [#/Area] 1 /[HPF] None Seen [facility] Urine specific gravity measu rementOrdered By: Frederick Carrasco on 03-20-2023 Specific gravity (U) [Rel density] 1.005 1.002-1.030 [facility] Urobilinogen Auto test strip Ql (U)Ordered By: Frederick Carrasco on 03-20-2023 Urobilinogen Ql (U) Normal mg/dl Normal [facility] XR Lumbar spine 3 Viewson IMPRESSION: MULTILEVEL DEGENERATIVE CHANGE. 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 DEXTROSCOLIOSIS Food Beverage Attendant: DELIA Transcribe Date/Time: Dec 28 2022 4:30P Dictated by : REINALDO CALVERT MD This examination was interpreted and the report reviewed and electronically signed by: REINALDO CALVERT MD on Dec 28 2022 4:32PM [facility] DIVISION OF RADIOLOGY * * *Final [...] and hips bilaterally. DIVISION OF RADIOLOGY Provider, [facility] Alicia [place] - 12/28/2022 * * *Final Report* * [...] 1 SPONDYLOLISTHESIS OF L4 ON L5. DEXTROSCOLIOSIS Food Beverage Attendant: DELIA Transcribe Date/Time: Dec 28 2022 4:30P Dictated by : REINALDO CALVERT MD This examination was interpreted and the report reviewed and electronically signed by: REINALDO CALVERT MD on Dec 28 2022 4:32PM EST [facility] XR Lumbar spine 3 ViewsOrder ed By: Ccf Provider on 12-28-2022 [facility] XR LUMBAR GENERAL 3V AP/LAT/ L5-S1on 12-25-2022 [facility] XR Lumbar spine 3 Viewson Radiology Study observation (narrative) [facility] UA DIP, URINE (POC)on 2021 BILIRUBIN UA (POCT) Negative Negative [facility] CLARITY UA (POCT) Clear [facility] COLOR UA (POCT) Yellow [facility] GLUCOSE UA (POCT) Negative Negative mg/dL [facility] HEMOGLOBIN/BLOOD UA (POCT) Negative Negative [facility] KETONE UA (POCT) Negative Negative mg/dL [facility] LEUKOCYTES UA (POCT) Small Abnormal Negative [facility] NITRITE UA (POCT) Negative Negative [facility] PH UA (POCT) 6.5 4.5 - 8.0 [facility] Protein Ql (U) Negative Negative mg/dL [facility] SPECIFIC GRAVITY UA (POCT) 1.025 1.005 - 1.030 [facility] UROBILINOGEN UA (POCT) 0.2 E.U./dL Bre l E.U./dL [facility] MG Mammogram Digital Screeni ng Blon 02-24-2017 MG Mammogram Digital Screening Bl Patient Name: CASANDRA HENRY Mammography Exam Date/Time 02/24/2017 09:12:27 EDT Exam MG Mammogram Digital Screening Bl Ordering Physician DO GRANADO NICOLE LEE Accession Number [id number] CPT4 Codes 81033 () Reason For Exam Screening Report PATIENT [...] 26, 2015, bilateral screening mammogram performed at [facility]. November 05, 2014, bilateral screening mammogram performed at [facility]. July 27, 2013, bilateral screening mammogram, performed at [facility]. There are scattered fibroglandular densities. No suspicious masses, architectural distortions or suspiciously clustered microcalcifications are identified. There are no significant changes when compared with prior studies. Markings on images: BB's = Nipples; skin lesions Open tolowa dee-ni' = Palpable Line = Scar 2D digital mammography imaging was performed and reviewed with CAD. ASSESSMENT: Category 1 Negative No mammographic evidence of malignancy. RECOMMENDATION: Routine screening mammogram of both breasts in 1 year. Final Signed Date and Time: 03/01/2017 11:44 am Signed by: MD VALLEJO LAUREN B [facility] Vital Signs Date Time Vital Sign Value Performing Clinician Facility 02-19-2025 13:22-0400 Diastolic blood pressure 80 mm[Hg] Margoth Chavez APRN.CNP Work Phone: [facility] 02-19-2025 13:22-0400 Systolic blood pressure 170 mm[Hg] Margoth Chavez APRN.CNP Work Phone: [facility] 02-19-2025 12:35-0400 Body mass index (BMI) [Ratio] 26.25 kg/m2 Margoth Mary [employer]IPMENT MECH[employer]IC Work Phone: [facility] 02-19-2025 12:35-0400 Body weight 64.05 kg Margothrod Averyo [employer]RY WEIGHER[employer]OUN[employer] EQUIPMENT MECH[employer]IC Work Phone: [facility] 02-19-2025 12:35-0400 Heart rate 68 /min Margothrod Averyo [employer] WEIGHER[employer]OUN[employer] EQUIPMENT MECH[employer]IC Work Phone: [facility] 02-19-2025 12:35-0400 Respiratory rate 16 /min Margoth Averyo [employer]HER[employer]OUN[employer] EQUIPMENT MECHANIC Work Phone: [facility] 02-19-2025 12:35-0400 SaO2% (BldA) [Mass fraction] 98 % Margoth Chavez [employer] WE[employer]HER[employer] EQUIPMENT MECH[employer]IC Work Phone: [facility] 02-05-2025 08:41-0400 Body mass index (BMI) [Ratio] 26.4 kg/m2 Sreekanth Cortez DO Work Phone: [facility] 02-05-2025 08:41-0400 Body temperature 98.71 [degF] Sreekanth Cortez DO Work Phone: [facility] 02-05-2025 08:41-0400 Body weight 64.41 kg Sreekanth Cortez DO Work Phone: [facility] 02-05-2025 08:41-0400 Diastolic blood pressure 80 mm[Hg] Sreekanth Cortez DO Work Phone: [facility] 02-05-2025 08:41-0400 Heart rate 84 /min Sreekanth Cortez DO Work Phone: [facility] 02-05-2025 08:41-0400 Respiratory rate 20 /min Sreekanth Cortez DO Work Phone: [facility] 02-05-2025 08:41-0400 Systolic blood pressure 180 mm[Hg] Sreekanth Cortez DO Work Phone: [facility] 12-25-2024 13:45-0400 Diastolic blood pressure 87 mm[Hg] Maribeth Griffiths [employer]HER[employer] EQUIPMENT MECH[employer]IC Work Phone: [facility] Comment on above: ANTONIETA BP average 12-25-2024 13:45-0400 Heart rate 71 /min Maribeth Podlogar [employer]RY WEIGHER[employer]OUN[employer] EQUIPMENT MECHANIC Work Phone: [facility] 12-25-2024 13:45-0400 Systolic blood pressure 199 mm[Hg] Maribeth Podlogar [employer]ORRY WEIGHER[employer]OUN[employer]Y EQUIPMENT MECHANIC Work Phone: [facility] Comment on above: ANTONIETA BP average 12-25-2024 13:16-0400 Body mass index (BMI) [Ratio] 26.28 kg/m2 Maribeth Podlogar [employer] WEIGHER[employer]OUN[employer] EQUIPMENT MECHANIC Work Phone: [facility] 12-25-2024 13:16-0400 Body weight 64.14 kg Maribeth Podlogar [employer]RY WEIGHER[employer]FOUN[employer]Y EQUIPMENT MECHANIC Work Phone: [facility] 12-25-2024 13:16-0400 Respiratory rate 18 /min Maribeth Podlogar [employer]ORRY WEIGHER[employer]OUN[employer]Y EQUIPMENT MECHANIC Work Phone: [facility] 12-25-2024 13:16-0400 SaO2% (BldA) [Mass fraction] 96 % Maribeth Podlogar [employer]ORRY WEIGHER[employer]OUNDRY EQUIPMENT MECHANIC Work Phone: [facility] 08-08-2024 08:52-0500 Body mass index (BMI) [Ratio] 26.77 kg/m2 Sreekanth Cortez DO Work Phone: [facility] 08-08-2024 08:52-0500 Body temperature 97.5 [degF] Sreekanth Cortez DO Work Phone: [facility] 08-08-2024 08:52-0500 Body weight 65.32 kg Sreekanth Cortez DO Work Phone: [facility] 08-08-2024 08:52-0500 Diastolic blood pressure 80 mm[Hg] Sreekanth Cortez DO Work Phone: [facility] 08-08-2024 08:52-0500 Heart rate 80 /min Sreekanth Cortez DO Work Phone: [facility] 08-08-2024 08:52-0500 Respiratory rate 16 /min Sreekanth Cortez DO Work Phone: [facility] 08-08-2024 08:52-0500 Systolic blood pressure 140 mm[Hg] Sreekanth Cortez DO Work Phone: [facility] 04-28-2024 08:22-0400 Diastolic blood pressure 80 mm[Hg] Sergei Zurdo [employer]RY WE[employer]HER[employer]OUN[employer]Y EQUIPMENT MECHANIC Work Phone: [facility] Comment on above: bp antonieta average 04-28-2024 08:22-0400 Systolic blood pressure 154 mm[Hg] Sergei Zurdo [employer]ORRY WEIGHER[employer]FOUNDRY EQUIPMENT MECHANIC Work Phone: [facility] Comment on above: bp antonieta average 04-28-2024 07:35-0400 Body mass index (BMI) [Ratio] 25.88 kg/m2 Sergei Quijanoman [employer]RY WEIGHER[employer]OUNDRY EQUIPMENT MECHANIC Work Phone: [facility] 04-28-2024 07:35-0400 Body weight 63.14 kg Sergei Quijanoman LORRY WEIGHER[employer]FOUNDRY EQUIPMENT MECHANIC Work Phone: [facility] 04-28-2024 07:35-0400 Heart rate 66 /min eSrgei Quijanoman LORRY WEIGHER[employer]FOUNDRY EQUIPMENT MECHANIC Work Phone: [facility] 04-28-2024 07:35-0400 Respiratory rate 16 /min Sergei Quijanoman [employer]ORRY WEIGHER[employer]OUN[employer]Y EQUIPMENT MECHANIC Work Phone: [facility] 04-28-2024 07:35-0400 SaO2% (BldA) [Mass fraction] 97 % Sergei Renner [employer]ORRY WEIGHER[employer]OUN[employer]Y EQUIPMENT MECHANIC Work Phone: [facility] 03-23-2024 08:11-0400 Body height 156.2 cm Delilah Traore DO Work Phone: [facility] 03-23-2024 08:11-0400 Body mass index (BMI) [Ratio] 25.82 kg/m2 Delilah Traore DO Work Phone: [facility] 03-23-2024 08:11-0400 Body weight 63 kg Delilah Traore DO Work Phone: [facility] 03-23-2024 08:11-0400 Diastolic blood pressure 90 mm[Hg] Delilah Traore DO Work Phone: [facility] 03-23-2024 08:11-0400 Heart rate 67 /min Delilah Traore DO Work Phone: [facility] 03-23-2024 08:11-0400 SaO2% (BldA) [Mass fraction] 97 % Delilah Traore DO Work Phone: [facility] 03-23-2024 08:11-0400 Systolic blood pressure 152 mm[Hg] Delilah Traore DO Work Phone: [facility] 02-14-2024 09:52-0400 Body mass index (BMI) [Ratio] 25.84 kg/m2 Sreekanth Cortez DO Work Phone: [facility] 02-14-2024 09:52-0400 Body temperature 97.3 [degF] Sreekanth Cortez DO Work Phone: [facility] 02-14-2024 09:52-0400 Body weight 63.05 kg Sreekanth Cortez DO Work Phone: [facility] 02-14-2024 09:52-0400 Diastolic blood pressure 90 mm[Hg] Sreekanth Cortez DO Work Phone: [facility] 02-14-2024 09:52-0400 Heart rate 64 /min Sreekanth Cortez DO Work Phone: [facility] 02-14-2024 09:52-0400 Respiratory rate 16 /min Sreekanth Cortez DO Work Phone: [facility] 02-14-2024 09:52-0400 Systolic blood pressure 160 mm[Hg] Sreekanth Cortez DO Work Phone: [facility] 11-24-2023 08:19-0400 Body height 156.2 cm Gabi More APRN.FOUNDRY EQUIPMENT MECHANIC Work Phone: [facility] 11-24-2023 08:19-0400 Body weight 62.6 kg Gabibar More LORRY WEIGHER.FOUNDRY EQUIPMENT MECHANIC Work Phone: [facility] 11-24-2023 08:19-0400 Diastolic blood pressure 80 mm[Hg] Gabibar More LORRY WEIGHER.FOUNDRY EQUIPMENT MECHANIC Work Phone: [facility] 11-24-2023 08:19-0400 Heart rate 71 /min Gabibar More LORRY WEIGHER.FOUNDRY EQUIPMENT MECHANIC Work Phone: [facility] 11-24-2023 08:19-0400 SaO2% (BldA) [Mass fraction] 97 % Gabi Derik LORRY WEIGHER.FOUNDRY EQUIPMENT MECHANIC Work Phone: [facility] 11-24-2023 08:19-0400 Systolic blood pressure 176 mm[Hg] Gabi Derik LORRY WEIGHER.FOUNDRY EQUIPMENT MECHANIC Work Phone: [facility] 11-06-2023 08:19-0400 Body temperature 98.6 [degF] Krislyn Aberegg PA Work Phone: [facility] 11-06-2023 08:19-0400 Body weight 63.1 kg Krislyn Aberegg PA Work Phone: [facility] 11-06-2023 08:19-0400 Diastolic blood pressure 76 mm[Hg] Krislyn Aberegg PA Work Phone: [facility] 11-06-2023 08:19-0400 Heart rate 94 /min Krislyn Aberegg PA Work Phone: [facility] 11-06-2023 08:19-0400 Respiratory rate 16 /min Krislyn Aberegg PA Work Phone: [facility] 11-06-2023 08:19-0400 SaO2% (BldA) [Mass fraction] 95 % Krislyn Aberegg PA Work Phone: [facility] 11-06-2023 08:19-0400 Systolic blood pressure 124 mm[Hg] Krislyn Aberegg PA Work Phone: [facility] 10-27-2023 13:01-0500 Body temperature 98.49 [degF] Sreekanth Cortez DO Work Phone: [facility] 10-27-2023 13:01-0500 Body weight 62.14 kg Sreekanth Cortez DO Work Phone: [facility] 10-27-2023 13:01-0500 Diastolic blood pressure 88 mm[Hg] Sreekanth Cortez DO Work Phone: [facility] 10-27-2023 13:01-0500 Heart rate 80 /min Sreekanth Cortez DO Work Phone: [facility] 10-27-2023 13:01-0500 Respiratory rate 20 /min Sreekanth Cortez DO Work Phone: [facility] 10-27-2023 13:01-0500 Systolic blood pressure 146 mm[Hg] Sreekanth Cortez DO Work Phone: [facility] 10-07-2023 07:46-0500 Body weight 62.32 kg Donita Estes LORRY WEIGHER.FOUNDRY EQUIPMENT MECHANIC Work Phone: [facility] 10-07-2023 07:46-0500 Diastolic blood pressure 64 mm[Hg] Odnita Estes LORRY WEIGHER.FOUNDRY EQUIPMENT MECHANIC Work Phone: [facility] 10-07-2023 07:46-0500 Heart rate 76 /min Donita Estes LORRY WEIGHER.FOUNDRY EQUIPMENT MECHANIC Work Phone: [facility] 10-07-2023 07:46-0500 Respiratory rate 16 /min Donita Estes LORRY WEIGHER.FOUNDRY EQUIPMENT MECHANIC Work Phone: [facility] 10-07-2023 07:46-0500 SaO2% (BldA) [Mass fraction] 98 % Donita Estes LORRY WEIGHER.FOUNDRY EQUIPMENT MECHANIC Work Phone: [facility] 10-07-2023 07:46-0500 Systolic blood pressure 138 mm[Hg] Donita Estes LORRY WEIGHER.FOUNDRY EQUIPMENT MECHANIC Work Phone: [facility] 07-21-2023 07:13-0500 Body weight 62.87 kg Donita Estes LORRY WEIGHER.FOUNDRY EQUIPMENT MECHANIC Work Phone: [facility] 07-21-2023 07:13-0500 Diastolic blood pressure 60 mm[Hg] Donita Estes LORRY WEIGHER.FOUNDRY EQUIPMENT MECHANIC Work Phone: [facility] 07-21-2023 07:13-0500 Heart rate 80 /min Donita Estes LORRY WEIGHER.FOUNDRY EQUIPMENT MECHANIC Work Phone: [facility] 07-21-2023 07:13-0500 Respiratory rate 14 /min Donita Estes LORRY WEIGHER.FOUNDRY EQUIPMENT MECHANIC Work Phone: [facility] 07-21-2023 07:13-0500 SaO2% (BldA) [Mass fraction] 98 % Donita Estes LORRY WEIGHER.FOUNDRY EQUIPMENT MECHANIC Work Phone: [facility] 07-21-2023 07:13-0500 Systolic blood pressure 138 mm[Hg] Donita Estes LORRY WEIGHER.FOUNDRY EQUIPMENT MECHANIC Work Phone: [facility] 07-05-2023 14:01-0500 Body temperature 98.91 [degF] Sreekanth Cortez DO Work Phone: [facility] 07-05-2023 14:01-0500 Body weight 63.5 kg Sreekanth Cortez DO Work Phone: [facility] 07-05-2023 14:01-0500 Diastolic blood pressure 84 mm[Hg] Sreekanth Cortez DO Work Phone: [facility] 07-05-2023 14:01-0500 Heart rate 80 /min Sreekanth Cortez DO Work Phone: [facility] 07-05-2023 14:01-0500 Respiratory rate 16 /min Sreekanth Cortez DO Work Phone: [facility] 07-05-2023 14:01-0500 Systolic blood pressure 138 mm[Hg] Sreekanth Cortez DO Work Phone: [facility] 06-29-2023 15:17-0500 Heart rate 78 /min [facility] 06-29-2023 15:17-0500 Respiratory rate 18 /min [facility] 06-29-2023 15:17-0500 SaO2% (BldA) [Mass fraction] 98 % [facility] 06-29-2023 11:38-0500 Diastolic blood pressure 68 mm[Hg] [facility] 06-29-2023 11:38-0500 Systolic blood pressure 151 mm[Hg] [facility] 06-29-2023 10:47-0500 Body height 154.94 cm [facility] 06-29-2023 10:47-0500 Body mass index (BMI) [Ratio] 26.6 kg/m2 [facility] 06-29-2023 10:47-0500 Body temperature 96.5 [degF] [facility] 06-29-2023 10:47-0500 Body weight 63.95 kg [facility] 06-16-2023 08:27-0400 Body weight 63.14 kg Donita Estes LORRY WEIGHER.FOUNDRY EQUIPMENT MECHANIC Work Phone: [facility] 06-16-2023 08:27-0400 Diastolic blood pressure 60 mm[Hg] Donita Estes LORRY WEIGHER.FOUNDRY EQUIPMENT MECHANIC Work Phone: [facility] 06-16-2023 08:27-0400 Heart rate 68 /min Donita Estes LORRY WEIGHER.FOUNDRY EQUIPMENT MECHANIC Work Phone: [facility] 06-16-2023 08:27-0400 Respiratory rate 16 /min Donita Estes LORRY WEIGHER.FOUNDRY EQUIPMENT MECHANIC Work Phone: [facility] 06-16-2023 08:27-0400 Systolic blood pressure 142 mm[Hg] Donita Estes LORRY WEIGHER.FOUNDRY EQUIPMENT MECHANIC Work Phone: [facility] 05-17-2023 15:03-0400 Body weight 63.5 kg Donita Estes LORRY WEIGHER.FOUNDRY EQUIPMENT MECHANIC Work Phone: [facility] 05-17-2023 15:03-0400 Diastolic blood pressure 60 mm[Hg] Donita Estes LORRY WEIGHER.FOUNDRY EQUIPMENT MECHANIC Work Phone: [facility] 05-17-2023 15:03-0400 Heart rate 100 /min Donita Estes LORRY WEIGHER.FOUNDRY EQUIPMENT MECHANIC Work Phone: [facility] 05-17-2023 15:03-0400 Respiratory rate 16 /min Donita Estes LORRY WEIGHER.FOUNDRY EQUIPMENT MECHANIC Work Phone: [facility] 05-17-2023 15:03-0400 Systolic blood pressure 130 mm[Hg] Donita Estes LORRY WEIGHER.FOUNDRY EQUIPMENT MECHANIC Work Phone: [facility] 03-31-2023 17:35-0400 Body temperature 97.5 [degF] Sreekanth Cortez DO Work Phone: [facility] 03-31-2023 17:35-0400 Body weight 63.5 kg Sreekanth Cortez DO Work Phone: [facility] 03-31-2023 17:35-0400 Diastolic blood pressure 70 mm[Hg] Sreekanth Cortez DO Work Phone: [facility] 03-31-2023 17:35-0400 Heart rate 80 /min Sreekanth Cortez DO Work Phone: [facility] 03-31-2023 17:35-0400 Respiratory rate 16 /min Sreekanth Cotrez DO Work Phone: [facility] 03-31-2023 17:35-0400 Systolic blood pressure 134 mm[Hg] Sreekanth Cortez DO Work Phone: [facility] 03-20-2023 19:13-0400 Body temperature 98 [degF] [facility] 03-20-2023 19:13-0400 Diastolic blood pressure 68 mm[Hg] [facility] 03-20-2023 19:13-0400 Heart rate 70 /min [facility] 03-20-2023 19:13-0400 Respiratory rate 14 /min [facility] 03-20-2023 19:13-0400 Systolic blood pressure 143 mm[Hg] [facility] 03-20-2023 17:10-0400 Body height 154.94 cm [facility] 03-20-2023 17:10-0400 Body mass index (BMI) [Ratio] 26.2 kg/m2 [facility] 03-20-2023 17:10-0400 Body weight 62.91 kg [facility] 03-20-2023 17:10-0400 SaO2% (BldA) [Mass fraction] 95 % [facility] 03-15-2023 07:45-0400 Body height 157 cm Sreekanth Cortez DO Work Phone: [facility] 03-15-2023 07:45-0400 Body temperature 97.11 [degF] Sreekanth Cortez DO Work Phone: [facility] 03-15-2023 07:45-0400 Body weight 63.05 kg Sreekanth Cortez DO Work Phone: [facility] 03-15-2023 07:45-0400 Diastolic blood pressure 80 mm[Hg] Sreekanth Cortez DO Work Phone: [facility] 03-15-2023 07:45-0400 Heart rate 60 /min Sreekanth Cortez DO Work Phone: [facility] 03-15-2023 07:45-0400 Respiratory rate 16 /min Sreekanth Cortez DO Work Phone: [facility] 03-15-2023 07:45-0400 Systolic blood pressure 138 mm[Hg] Sreekanth Cortez DO Work Phone: [facility] 03-10-2023 10:27-0400 Diastolic blood pressure 71 mm[Hg] Marilyn SIMPSON-C Work Phone: [facility] 03-10-2023 10:27-0400 Heart rate 66 /min Marilyn SIMPSON-C Work Phone: [facility] 03-10-2023 10:27-0400 Systolic blood pressure 133 mm[Hg] Marilyn SIMPSON-C Work Phone: [facility] 03-10-2023 09:56-0400 Body temperature 98.6 [degF] Marilyn SIMPSON-C Work Phone: [facility] 03-10-2023 09:56-0400 Body weight 62.6 kg Marilyn SIMPSON-C Work Phone: [facility] 03-10-2023 09:56-0400 Respiratory rate 16 /min Marilyn SIMPSON-C Work Phone: [facility] 03-10-2023 09:56-0400 SaO2% (BldA) [Mass fraction] 96 % Marilyn Gutierrez PA-C Work Phone: [facility] 12-25-2022 14:40-0400 Diastolic blood pressure 80 mm[Hg] Sreekanth Cortez DO Work Phone: [facility] 12-25-2022 14:40-0400 Systolic blood pressure 150 mm[Hg] Sreekanth Cortez DO Work Phone: [facility] 12-25-2022 13:45-0400 Body temperature 97 [degF] Sreekanth Cortez DO Work Phone: [facility] 12-25-2022 13:45-0400 Body weight 64.86 kg Sreekanth Cortez DO Work Phone: [facility] 12-25-2022 13:45-0400 Heart rate 72 /min Sreekanth Cortez DO Work Phone: [facility] 12-25-2022 13:45-0400 Respiratory rate 16 /min Sreekanth Cortez DO Work Phone: [facility] 08-31-2022 09:14-0500 Body temperature 98.49 [degF] Sreekanth Cortez DO Work Phone: [facility] 08-31-2022 09:14-0500 Body weight 65.32 kg Sreekanth Cortez DO Work Phone: [facility] 08-31-2022 09:14-0500 Diastolic blood pressure 94 mm[Hg] Sreekanth Cortez DO Work Phone: [facility] 08-31-2022 09:14-0500 Heart rate 76 /min Sreekanth Cortez DO Work Phone: [facility] 08-31-2022 09:14-0500 Respiratory rate 20 /min Sreekanth Cortez DO Work Phone: [facility] 08-31-2022 09:14-0500 Systolic blood pressure 138 mm[Hg] Sreekanth Cortez DO Work Phone: [facility] 07-08-2022 07:44-0500 Body weight 64.77 kg Sergei Zurdo LORRY WEIGHER.FOUNDRY EQUIPMENT MECHANIC Work Phone: [facility] 07-08-2022 07:44-0500 Diastolic blood pressure 82 mm[Hg] Sergei Zurdo LORRY WEIGHER.FOUNDRY EQUIPMENT MECHANIC Work Phone: [facility] 07-08-2022 07:44-0500 Heart rate 70 /min Sergei Zurdo LORRY WEIGHER.FOUNDRY EQUIPMENT MECHANIC Work Phone: [facility] 07-08-2022 07:44-0500 Respiratory rate 16 /min Sergei Zurdo LORRY WEIGHER.FOUNDRY EQUIPMENT MECHANIC Work Phone: [facility] 07-08-2022 07:44-0500 SaO2% (BldA) [Mass fraction] 96 % Sergei Zurdo LORRY WEIGHER.FOUNDRY EQUIPMENT MECHANIC Work Phone: [facility] 07-08-2022 07:44-0500 Systolic blood pressure 130 mm[Hg] Sergei Zurdo LORRY WEIGHER.FOUNDRY EQUIPMENT MECHANIC Work Phone: [facility] 04-06-2022 15:12-0400 Body temperature 98.2 [degF] Yann French MD Work Phone: [facility] 04-06-2022 15:12-0400 Body weight 66.59 kg Yann French MD Work Phone: [facility] 04-06-2022 15:12-0400 Diastolic blood pressure 84 mm[Hg] Yann French MD Work Phone: [facility] 04-06-2022 15:12-0400 Heart rate 85 /min Yann French MD Work Phone: [facility] 04-06-2022 15:12-0400 Respiratory rate 21 /min Yann French MD Work Phone: [facility] 04-06-2022 15:12-0400 SaO2% (BldA) [Mass fraction] 99 % Yann French MD Work Phone: [facility] 04-06-2022 15:12-0400 Systolic blood pressure 122 mm[Hg] Yann French MD Work Phone: [facility] 02-25-2022 11:26-0400 Diastolic blood pressure 60 mm[Hg] Donita Zurawick LORRY WEIGHER.FOUNDRY EQUIPMENT MECHANIC Work Phone: [facility] 02-25-2022 11:26-0400 Heart rate 100 /min Donita Zurawick LORRY WEIGHER.FOUNDRY EQUIPMENT MECHANIC Work Phone: [facility] 02-25-2022 11:26-0400 Systolic blood pressure 136 mm[Hg] Donita Zurawick LORRY WEIGHER.FOUNDRY EQUIPMENT MECHANIC Work Phone: [facility] 02-25-2022 10:50-0400 Body height 153 cm Donita Zurawick LORRY WEIGHER.FOUNDRY EQUIPMENT MECHANIC Work Phone: [facility] 02-25-2022 10:50-0400 Body weight 64.45 kg Donita Zurawick LORRY WEIGHER.FOUNDRY EQUIPMENT MECHANIC Work Phone: [facility] 02-25-2022 10:50-0400 Respiratory rate 16 /min Donita Zurawick LORRY WEIGHER.FOUNDRY EQUIPMENT MECHANIC Work Phone: [facility] Encounters Encounter Date Encounter Type Care Provider Facility Start: 02-19-2025 End: 02-19-2025 ambulatory MARGOTH CHAVEZ Facility:[facility] Start: 02-19-2025 End: 02-19-2025 Office outpatient visit 25 minutes Margoth Chavez LORRY WEIGHER.FOUNDRY EQUIPMENT MECHANIC Work Phone: [facility] Comment on above: Labile blood pressur e (Primary Dx); Hypertension, essential; Hyponatremia; Fatigue, unspecified type Start: 02-19-2025 End: 02-19-2025 ambulatory SREEKANTH CORTEZ Facility:[facility] Start: 02-05-2025 End: 02-05-2025 Patient encounter procedure Sreekanth L Cortez DO Work Phone: [facility] Comment on above: Hypertension, essent ial (Primary Dx); Stage 3a chronic kidney disease (HCC); Hypothyroidism, unspecified type; Fatigue, unspecified type; Dyslipidemia; Hyponatremia Start: 02-05-2025 End: 02-05-2025 ambulatory SREEKANTH L CORTEZ Facility:[facility] Start: 12-25-2024 End: 12-25-2024 Telephone encounter Marilyn Gutierrez PA-C Work Phone: [facility] Comment on above: Patient Update; Appo intment Start: 12-25-2024 End: 12-25-2024 Patient encounter procedure Maribeth Griffiths APRN.FOUNDRY EQUIPMENT MECHANIC Work Phone: [facility] Comment on above: Hypertension, essent ial (Primary Dx) Start: 12-25-2024 End: 12-25-2024 ambulatory SREEKANTH L CORTEZ Facility:[facility] Start: 11-21-2024 End: 11-21-2024 Follow-up encounter Sergei Renner APRN.FOUNDRY EQUIPMENT MECHANIC Work Phone: [facility] Comment on above: Results Start: 11-21-2024 End: 11-28-2024 Telephone encounter Sreekanth Rodriguezrison DO Work Phone: [facility] Comment on above: Patient Update (BP r eadings) Start: 11-16-2024 End: 11-16-2024 ambulatory SREEKANTH L CORTEZ Facility:[facility] Start: 11-09-2024 End: 11-09-2024 Refill Sreekanth L Cortez DO Work Phone: [address] [place] [address] Comment on above: Refill Request Start: 10-11-2024 End: 10-11-2024 Refill Sreekanth L Cortez DO Work Phone: [facility] Comment on above: Refill Request Start: 08-08-2024 End: 08-08-2024 Patient encounter procedure Sreekanth L Cortez DO Work Phone: [facility] Comment on above: Hypothyroidism, unsp ecified type (Primary Dx); Hypertension, essential; Stage 3a chronic kidney disease (HCC); Other iron deficiency anemia; Dyslipidemia; Vitamin D deficiency; Fatigue, unspecified type; Essential hypertension Start: 08-08-2024 End: 08-08-2024 ambulatory SREEKNATH CORTEZ Facility:[facility] Start: 07-12-2024 End: 07-13-2024 Telephone encounter Sergei Renner APRN.FOUNDRY EQUIPMENT MECHANIC Work Phone: [facility] Comment on above: Results; Orders Start: 07-10-2024 End: 07-10-2024 [address] [facility] Facility:[facility] Start: 06-06-2024 End: 06-06-2024 Telephone encounter Sreekanth Cortez DO Work Phone: [facility] Comment on above: Medication Problem Start: 05-02-2024 End: 05-02-2024 Telephone encounter Sergei Renner APRN.FOUNDRY EQUIPMENT MECHANIC Work Phone: [facility] Comment on above: Results; Orders Start: 04-28-2024 End: 07-19-2024 Telephone encounter Sergei Renner LORRY WEIGHER.FOUNDRY EQUIPMENT MECHANIC Work Phone: [facility] Comment on above: contact outside [facility] ider Start: 04-28-2024 End: 04-28-2024 amb[address] [facility] Facility:[facility] Start: 04-28-2024 End: 04-28-2024 amb[address] [facility] Facility:[facility] Start: 04-28-2024 End: 04-28-2024 Patient encounter procedure Sergei Zurdo LORRY WEIGHER.FOUNDRY EQUIPMENT MECHANIC Work Phone: [facility] Comment on above: Hypertension, essent ial (Primary Dx); Stage 3a chronic kidney disease (HCC); Hypothyroidism, unspecified type; Other iron deficiency anemia Start: 03-23-2024 End: 03-23-2024 ambulatory DELILAH TRAORE Facility:[facility] Start: 03-23-2024 End: 03-23-2024 Patient encounter procedure Delilah Traore DO Work Phone: Cardiology Comment on above: SVT (supraventricula r tachycardia) (HCC) (Primary Dx); Palpitations; Essential hypertension; Hyperlipidemia, mixed; Hypertension, essential; Palpitation Start: 02-14-2024 End: 02-14-2024 Patient encounter procedure Sreekanth Cortez DO Work Phone: [facility] Comment on above: Essential hypertensi on (Primary Dx); Stage 3a chronic kidney disease (HCC); Hypothyroidism, unspecified type; Other iron deficiency anemia; Vitamin D deficiency Start: 02-09-2024 Telephone encounter Sreekanth shrestha DO Work Phone: [facility] Comment on above: checking to see if l abs are needed Start: 11-24-2023 End: 11-24-2023 Office outpatient visit 15 minutes Gabi More APRN.FOUNDRY EQUIPMENT MECHANIC Work Phone: [facility]iology Comment on above: Hyponatremia (Primar y Dx); Hypertension, essential; Palpitation; Hypothyroidism, unspecified type; Iatrogenic hyperthyroidism Start: 11-10-2023 Refill Sreekanth roper DO Work Phone: [facility] Comment on above: Refill Request Start: 11-07-2023 Telephone encounter Justice SIMPSON Work Phone: [facility] Comment on above: Results Start: 11-06-2023 End: 11-06-2023 Subsequent hospital visit by physician [facility] Work Phone: Radiology Comment on above: Acute cough [R05.1] Start: 11-06-2023 End: 11-06-2023 Patient encounter procedure Justice SIMPSON Work Phone: [facility] Comment on above: Acute cough (Primary Dx); URI, acute Start: 10-27-2023 End: 10-27-2023 Patient encounter procedure Sreekanth Cortez DO Work Phone: [facility] Comment on above: Essential hypertensi on (Primary Dx); Stage 3a chronic kidney disease (HCC); Hyponatremia; Hypothyroidism, unspecified type Start: 10-14-2023 E-mail encounter fro m caregiver Gabi More APRN.FOUNDRY EQUIPMENT MECHANIC Work Phone: [facility] Start: 10-14-2023 Patient encounter procedure Gabi More LORRY WEIGHER.FOUNDRY EQUIPMENT MECHANIC Work Phone: Cardiology Comment on above: Appointment Start: 10-11-2023 Refill Donita Estes LORRY WEIGHER.FOUNDRY EQUIPMENT MECHANIC Work Phone: [facility] Comment on above: Refill Request Start: 10-11-2023 Refill Sreekanth roper DO Work Phone: [facility] Comment on above: Refill Request Start: 10-08-2023 Telephone encounter Donita roper LORRY WEIGHER.FOUNDRY EQUIPMENT MECHANIC Work Phone: [facility] Comment on above: Results Start: 10-07-2023 End: 10-07-2023 Patient encounter procedure Donita Estes LORRY WEIGHER.FOUNDRY EQUIPMENT MECHANIC Work Phone: [facility] Comment on above: Essential hypertensi on (Primary Dx); Hyponatremia; Hypothyroidism, unspecified type; Other iron deficiency anemia; Dyslipidemia Start: 09-11-2023 Telephone encounter Sreekanth shrestha DO Work Phone: [facility] Start: 08-09-2023 End: 08-13-2023 Evaluation and management of inpatient LIYA HARESH Facility:[facility] Start: 08-05-2023 Telephone encounter Donita roper LORRY WEIGHER.FOUNDRY EQUIPMENT MECHANIC Work Phone: [facility] Comment on above: Results Start: 07-28-2023 Telephone encounter Donita roper LORRY WEIGHER.FOUNDRY EQUIPMENT MECHANIC Work Phone: [facility] Comment on above: Results Start: 07-26-2023 Telephone encounter Sreekanth shrestha DO Work Phone: [facility] Comment on above: Patient Question; La b Orders Start: 07-23-2023 Telephone encounter Sreekanth shrestha DO Work Phone: [facility] Comment on above: Results; concerns Start: 07-21-2023 End: 07-21-2023 Patient encounter procedure Donita Estes LORRY WEIGHER.FOUNDRY EQUIPMENT MECHANIC Work Phone: [facility] Comment on above: Dizziness (Primary D x); Hypothyroidism, unspecified type; Essential hypertension; CHECO (generalized anxiety disorder); Hyponatremia Start: 07-08-2023 Telephone encounter Sreekanth shrestha DO Work Phone: [facility] Comment on above: Patient Question Start: 07-05-2023 End: 07-05-2023 Patient encounter procedure Sreekanth Cortez DO Work Phone: [facility] Comment on above: Hyponatremia (Primar y Dx); Anemia, unspecified type; Hypothyroidism, unspecified type; Dizziness; Essential hypertension; Fatigue, unspecified type; Shakiness Start: 06-29-2023 ambulatory Sreekanth Cortez Facilit y:[facility] Start: 06-29-2023 End: 06-29-2023 Emergency department patient visit Josselyn Adhikari Facility:[facility] Start: 06-29-2023 End: 06-29-2023 Emergency department patient visit [facility] Work Phone: Start: 06-29-2023 End: 06-29-2023 Patient encounter procedure Yuna Syed LORRY WEIGHER[employer] ME[employer] Work Phone: [facility] Comment on above: Procedure not enmanuel d out (Primary Dx) Start: 06-22-2023 Telephone encounter Sreekanth shrestha DO Work Phone: [facility] Comment on above: Clearance Form from [facility] Start: 06-17-2023 Telephone encounter Donita roper LORRY WEIGHER[employer]OUN[employer] EQUIPMENT MECH[employer]IC Work Phone: [facility] Comment on above: Results Start: 06-16-2023 End: 06-16-2023 Patient encounter procedure Donita Estes LORRY WEIGHER[employer]OUN[employer] EQUIPMENT MECHANIC Work Phone: [facility] Comment on above: Low sodium levels (P rimary Dx); Hypothyroidism, unspecified type; Other iron deficiency anemia; Dizziness Start: 06-09-2023 Telephone encounter Sreek[facility]rest[facility] DO [facility] Start: 05-17-2023 End: 05-17-2023 Patient encounter procedure Donita Estes APRN.[employer]OUNDR[employer] EQUIPMENT MECHANIC Work Phone: [facility] Comment on above: Dizziness (Primary D x); Hypothyroidism, unspecified type; Essential hypertension Start: 03-31-2023 End: 03-31-2023 Patient encounter procedure Sreekanth Cortez DO Work Phone: [facility] Comment on above: Essential hypertensi on (Primary Dx); Dysuria; Hypothyroidism, unspecified type Start: 03-20-2023 End: 03-20-2023 Emergency department patient visit [facility] Facility:[facility] Start: 03-20-2023 End: 03-20-2023 Emergency department patient visit [facility] Work Phone: Start: 03-15-2023 Refill Donita Estes L[employer] WEIGHER[employer] EQUIP[employer] MECH[employer]IC Work Phone: [facility] Comment on above: Refill Request Start: 03-15-2023 End: 03-15-2023 Patient encounter procedure Sreekanth Almaraz Cortez DO Work Phone: [facility] Comment on above: Essential hypertensi on (Primary Dx); Hypothyroidism, unspecified type; Bilateral leg edema; Lumbar radiculopathy; Other iron deficiency anemia; Dyslipidemia Start: 03-11-2023 Refill Donita Estes APRN.[employer]OUN[employer] EQUIPMENT MECHANIC Work Phone: [facility] Comment on above: Refill Request Start: 03-10-2023 ambulatory Sreekanth Greenwood jacquelin DO Work Phone: [facility] Comment on above: Dizziness; Hypertens ion Start: 03-10-2023 End: 03-10-2023 Patient encounter procedure Marilyn Gutierrez PA-C Work Phone: [facility] Comment on above: Essential hypertensi on (Primary Dx) Start: 03-09-2023 Refill Donita Estes APRN.[employer]OUN[employer] EQUIPMENT MECHANIC Work Phone: [facility] Comment on above: Refill Request Start: 12-31-2022 Telephone encounter Sreekanth shrestha DO Work Phone: [facility] Comment on above: Results Start: 12-25-2022 End: 12-25-2022 Subsequent hospital visit by physician [facility] Work Phone: Radiology Comment on above: Lumbar radiculopathy [M54.16] Start: 12-25-2022 End: 12-25-2022 Patient encounter procedure Sreekanth Cortez DO Work Phone: [facility] Comment on above: Lumbar radiculopathy (Primary Dx); Chronic midline low back pain with bilateral sciatica Start: 09-12-2022 Refill Donita Estes LORRY WEIGHER.[employer]OUNDRY EQUIPMENT MECHANIC Work Phone: [facility] Comment on above: Refill Request Start: 09-10-2022 Refill Donita Estes LORRY WEIGHER.[employer]OUNDRY EQUIPMENT MECHANIC Work Phone: [facility] Comment on above: Refill Request Start: 08-31-2022 End: 08-31-2022 Patient encounter procedure Sreekanth Sung Cortez Work Phone: [facility] Comment on above: Essential hypertensi on (Primary Dx); Gastroesophageal reflux disease, unspecified whether esophagitis present; Bilateral leg edema; Hypothyroidism, unspecified type; Vitamin D deficiency; Stage 3a chronic kidney disease (HCC); Dyslipidemia; Other iron deficiency anemia Start: 08-10-2022 Telephone encounter Sergei Partida APRN.CNP Work Phone: [facility] Comment on above: Covid19 Concern Start: 08-10-2022 End: 08-10-2022 ambulatory Sergei Renner APRN.[employer]OUN[employer] EQUIPMENT MECHANIC Work Phone: [facility] Comment on above: COVID (Primary Dx) Start: 08-10-2022 End: 08-10-2022 Telemedicine consultation with patient Sergei Renner APRN.CNP Work Phone: [facility] Start: 07-08-2022 End: 07-08-2022 Patient encounter procedure Sergei Renner APRN.CNP Work Phone: [facility] Comment on above: Essential hypertensi on (Primary Dx); Gastroesophageal reflux disease, unspecified whether esophagitis present Start: 04-06-2022 End: 04-06-2022 Patient encounter procedure Yann French MD Work Phone: [facility] Comment on above: Acute left flank george n (Primary Dx); Urinary frequency Start: 02-26-2022 Telephone encounter Donita Kari sadie LORRY WEIGHER.FOUNDRY EQUIPMENT MECHANIC Work Phone: [facility] Comment on above: Results Start: 02-25-2022 End: 02-25-2022 Patient encounter procedure Donita Gonzales LORRY WEIGHER.FOUNDRY EQUIPMENT MECHANIC Work Phone: [facility] Comment on above: Essential hypertensi on (Primary Dx); Bilateral leg edema; Hypothyroidism, unspecified type; Vitamin D deficiency; Stage 3a chronic kidney disease (HCC); Dyslipidemia; Other iron deficiency anemia; Screening for diabetes mellitus Start: 09-01-2018 Patient encounter procedure JOE MUHAMMAD [facility] Start: 02-24-2017 [facility] Procedures Date Procedure Procedure Detail Performing [...] et rgnt auto w/o microscopy Donita Estes LORRY WEIGHER.[employer]OUNDR[employer] EQUIPMENT MECHANIC Work Phone: Start: 03-31-2023 Urnls dip stick/tabl et rgnt auto w/o microscopy Sreekanth Cortez DO Work Phone: Start: 03-20-2023 Urine culture Start: 12-25-2022 Radex spine lumbosac ral 2/3 views Sreekanth Cortez DO Work Phone: Start: 04-06-2022 Urnls dip stick/tabl et rgnt auto w/o microscopy Yuan Syed LORRY WEIGHER.SATISH Work Phone: Start: 02-25-2022 Adult depression scr eening sherron Duckworth Karisadie LORRY WEIGHER.SATISH Work Phone: Plan of Treatment Date Care Activity Detail Author Start: 02-20-2028 Diabetes Screening Diabetes Screening [facility] Start: 11-17-2027 Diabetes Screening Diabetes Screening [facility] Start: 04-28-2027 Diabetes Screening Diabetes Screening [facility] Start: 02-09-2027 Diabetes Screening Diabetes Screening [facility] Start: 11-22-2026 Diabetes Screening Diabetes Screening [facility] Start: 10-07-2026 Diabetes Screening Diabetes Screening [facility] Start: 09-08-2026 Diabetes Screening Diabetes Screening [facility] Start: 08-04-2026 Diabetes Screening Diabetes Screening [facility] Start: 07-21-2026 Diabetes Screening Diabetes Screening [facility] Start: 07-02-2026 Diabetes Screening Diabetes Screening [facility] Start: 06-16-2026 Diabetes Screening Diabetes Screening [facility] Start: 05-20-2026 Diabetes Screening Diabetes Screening [facility] Start: 03-10-2026 DIABETES SCREEN DIABETES SCREEN [facility] Start: 03-10-2026 Diabetes Screening Diabetes Screening [facility] Start: 11-18-2025 DIABETES SCREEN DIABETES SCREEN [facility] Start: 05-14-2025 End: 05-14-2025 Patient encounter procedure 05/14/2025 2:20 PM EDT Office Visit [facility] [address] [place], [place] [phone] Sreekanth Cortez, [address] [place], [place] [phone] 3 month follow up [facility] Comment on above: 3 month follow up Start: 05-08-2025 End: 08-07-2025 CBC panel - Blood by Automated count COMPLETE BLOOD COUNT Lab Routine Hypertension, essential Stage 3a chronic kidney disease (HCC) Expected: 05/08/2025, Expires: 08/07/2025 [facility] Comment on above: Expected: 05/08/2025, Expires: Start: 05-08-2025 End: 08-07-2025 Comprehensive metabolic 2000 panel - Serum or Plasma COMPREHENSIVE METABOLIC PANEL Lab Routine Hyponatremia Expected: 05/08/2025, Expires: 08/07/2025 [facility] Work Phone: Comment on above: Expected: 05/08/2025, Expires: Start: 05-08-2025 End: 08-07-2025 Thyrotropin [Units/volume] in Serum or Plasma THYROID STIMULATING HORMONE Lab Routine Hypothyroidism, unspecified type Expected: 05/08/2025, Expires: 08/07/2025 [facility] Comment on above: Expected: 05/08/2025, Expires: Start: 05-08-2025 End: 08-07-2025 Thyroxine (T4) free [Mass/volume] in Serum or Plasma T4 FREE/FREE THYROXINE Lab Routine Hypothyroidism, unspecified type Expected: 05/08/2025, Expires: 08/07/2025 [facility] Comment on above: Expected: 05/08/2025, Expires: Start: 04-23-2025 Influenza vaccination Influenza Vaccine (#1) [facility] Start: 02-26-2025 End: 02-26-2025 Patient encounter procedure 02/26/2025 9:00 AM EDT Office Visit [facility] [address] [place] [phone] Margoth Chavez APRN.[facility] [address] [place], [place] [phone] 2 week f/up [facility] Comment on above: 2 week f/up Start: 02-25-2025 DIABETES SCREEN DIABETES SCREEN [facility] Start: 02-13-2025 Anxiety Screening Anxiety Screening [facility] Start: 02-13-2025 Depression Screening Depression Screening [facility] Start: 02-05-2025 End: 02-05-2025 Patient encounter procedure 02/05/2025 9:00 AM EDT Office Visit [facility] [address] [place], [place] [phone] Sreekanth Cortez DO [address] [place], [place] [phone] 6 month follow up [facility] Comment on above: 6 month follow up Start: 08-24-2024 End: 11-23-2024 Thyrotropin [Units/volume] in Serum or Plasma THYROID STIMULATING HORMONE Lab Routine Hypothyroidism, unspecified type Expected: 08/24/2024, Expires: 11/23/2024 [facility] Work Phone: Comment on above: Expected: 08/24/2024, Expires: Start: 08-24-2024 End: 11-23-2024 Thyroxine (T4) free [Mass/volume] in Serum or Plasma T4 FREE/FREE THYROXINE Lab Routine Hypothyroidism, unspecified type Expected: 08/24/2024, Expires: 11/23/2024 [facility] Comment on above: Expected: 08/24/2024, Expires: Start: 08-23-2024 Advance Directive Discussion Advance Directive Discussion [facility] Start: 08-23-2024 Medicare Advantage Annual Wellness Visit Medicare Advantage Annual Wellness Visit [facility] Start: 08-20-2024 DIABETES SCREEN DIABETES SCREEN [facility] Start: 08-20-2024 RSV Vaccine (1 - 1-dose 60+ series) RSV Vaccine (1 - 1-dose 60+ series) [facility] Comment on above: Postponed from 2002 (Declined at t his time) Start: 08-20-2024 RSV Vaccine (1 - 1-dose 75+ series) RSV Vaccine (1 - 1-dose 75+ series) [facility] Comment on above: Postponed from 2017 (Declined at t his time) Start: 08-08-2024 End: 08-08-2024 Patient encounter procedure 08/08/2024 9:00 AM EST Office Visit Family [facility] [address] [place] [address] Sreekanth Cortez DO [address] [place] [id number] 6 month follow up Family [facility] Comment on above: 6 month follow up Start: 07-28-2024 End: 10-27-2024 CBC panel - Blood by Automated count COMPLETE BLOOD COUNT Lab Routine Hypertension, essential Hypothyroidism, unspecified type Other iron deficiency anemia Expected: 07/28/2024, Expires: 10/27/2024 [facility] Comment on above: Expected: 07/28/2024, Expires: Start: 06-13-2024 End: 09-12-2024 Thyrotropin [Units/volume] in Serum or Plasma THYROID STIMULATING HORMONE Lab Routine Hypothyroidism, unspecified type Expected: 06/13/2024, Expires: 09/12/2024 [facility] Work Phone: Comment on above: Expected: 06/13/2024, Expires: 5 Start: 06-13-2024 End: 09-12-2024 Thyroxine (T4) free [Mass/volume] in Serum or Plasma T4 FREE/FREE THYROXINE Lab Routine Hypothyroidism, unspecified type Expected: 06/13/2024 (Approximate), Expires: 09/12/2024 [facility] Comment on above: Expected: 06/13/2024 (Approximate), Expi res: 09/12/2024 Start: 05-17-2024 Covid-19 Vaccine ( - season) Covid-19 Vaccine ( - 2022- season) [facility] Comment on above: Postponed from 04/23/2023 (Declined at t his time) Start: 05-17-2024 Covid-19 Vaccine (4 - Moderna series) Covid-19 Vaccine (4 - Moderna series) [facility] Comment on above: Postponed from 09/30/2021 (Declined at t his time) Start: 05-17-2024 Urine microalbumin profile DTaP,Tdap,Td Vaccine (1 - Tdap) [facility] Comment on above: Postponed from 1961 (Declined at t his time) Start: 04-28-2024 End: 07-28-2024 Comprehensive metabolic 2000 panel - Serum or Plasma [facility] Comment on above: Expected: 04/28/2024, Expires: 4 Start: 04-28-2024 End: 07-28-2024 Ferritin [Mass/volume] in Serum or Plasma [facility] Comment on above: Expected: 04/28/2024, Expires: 4 Start: 04-28-2024 End: 07-28-2024 Iron and Iron binding capacity panel - Serum or Plasma [facility] Comment on above: Expected: 04/28/2024, Expires: 4 Start: 04-28-2024 End: 07-28-2024 Thyrotropin [Units/volume] in Serum or Plasma [facility] Work Phone: Comment on above: Expected: 04/28/2024, Expires: 4 Start: 04-28-2024 End: 07-28-2024 Thyroxine (T4) free [Mass/volume] in Serum or Plasma [facility] Comment on above: Expected: 04/28/2024, Expires: Start: 04-23-2024 Covid-19 Vaccine ( season) Covid-19 Vaccine () [facility] Start: 04-23-2024 Covid-19 Vaccine () Covid-19 Vaccine () [facility] Start: 04-23-2024 Influenza vaccination Influenza Vaccine (#1) [place] [facility]ul [facility] Start: 03-23-2024 End: 03-23-2024 Patient encounter procedure 03/23/2024 8:20 AM EDT Office Visit Cardiology [address] [place] [id number] Delilah Traore DO [address] [place] [phone] 6 month follow up Cardiology Comment on above: 6 month follow up Start: 03-10-2024 ANNUAL PCP TEAM CHRONIC DISEASE VISIT ANNUAL PCP TEAM CHRONIC DISEASE VISIT [facility] Start: 03-10-2024 SERUM CREATININE SERUM CREATININE [facility] Start: 02-20-2024 Influenza vaccination Influenza Vaccine (#1) [facility] Comment on above: Postponed from 04/23/2023 (Declined at t his time) Start: 02-14-2024 End: 02-14-2024 Patient encounter procedure 02/14/2024 9:40 AM EDT Office Visit [facility] [address] [place] [address] Sreekanth Cortez L, DO [address] [facility] [place] [address] 3 month follow up [facility] Comment on above: 3 month follow up Start: 02-09-2024 End: 05-10-2024 25-hydroxyvitamin D3 [Mass/volume] in Serum or Plasma VITAMIN D 25 HYDROXY Lab Routine Vitamin D deficiency Expected: 02/09/2024, Expires: 05/10/2024 [facility] Comment on above: Expected: 02/09/2024, Expires: Start: 02-09-2024 End: 05-10-2024 CBC W Auto Differential panel - Blood COMPLETE BLOOD COUNT AND DIFFERENTIAL Lab Routine Other iron deficiency anemia Expected: 02/09/2024, Expires: 05/10/2024 [facility] Comment on above: Expected: 02/09/2024, Expires: Start: 02-09-2024 End: 05-10-2024 Cobalamin (Vitamin B12) [Mass/volume] in Serum or Plasma VITAMIN B12 Lab Routine Stage 3a chronic kidney disease (HCC) Expected: 02/09/2024, Expires: 05/10/2024 [facility] Comment on above: Expected: 02/09/2024, Expires: Start: 02-09-2024 End: 05-10-2024 Comprehensive metabolic 2000 panel - Serum or Plasma COMPREHENSIVE METABOLIC PANEL Lab Routine Stage 3a chronic kidney disease (HCC) Expected: 02/09/2024, Expires: 05/10/2024 [facility] Comment on above: Expected: 02/09/2024, Expires: Start: 02-09-2024 End: 05-10-2024 Thyrotropin [Units/volume] in Serum or Plasma THYROID STIMULATING HORMONE Lab Routine Hypothyroidism, unspecified type Expected: 02/09/2024, Expires: 05/10/2024 [facility] Work Phone: Comment on above: Expected: 02/09/2024, Expires: Start: 02-09-2024 End: 05-10-2024 Thyroxine (T4) free [Mass/volume] in Serum or Plasma T4 FREE/FREE THYROXINE Lab Routine Hypothyroidism, unspecified type Expected: 02/09/2024, Expires: 05/10/2024 [facility] Comment on above: Expected: 02/09/2024, Expires: Start: 12-26-2023 ANNUAL PCP TEAM CHRONIC DISEASE VISIT ANNUAL PCP TEAM CHRONIC DISEASE VISIT [facility] Start: 11-19-2023 SERUM CREATININE SERUM CREATININE [facility] Start: 10-07-2023 End: 01-06-2024 CBC W Auto Differential panel - Blood [facility] Work Phone: Comment on above: Expected: 10/07/2023, Expires: Start: 10-07-2023 End: 01-06-2024 Comprehensive metabolic 2000 panel - Serum or Plasma [facility] Work Phone: Comment on above: Expected: 10/07/2023, Expires: 4 Start: 10-07-2023 End: 01-06-2024 Ferritin [Mass/volume] in Serum or Plasma [facility] Work Phone: Comment on above: Expected: 10/07/2023, Expires: 4 Start: 10-07-2023 End: 01-06-2024 Iron and Iron binding capacity panel - Serum or Plasma [facility] Work Phone: Comment on above: Expected: 10/07/2023, Expires: 4 Start: 10-07-2023 End: 01-06-2024 Lipid 1996 panel - Serum or Plasma [facility] Work Phone: Comment on above: Expected: 10/07/2023, Expires: Start: 10-07-2023 End: 01-06-2024 Thyrotropin [Units/volume] in Serum or Plasma [facility] Work Phone: Comment on above: Expected: 10/07/2023, Expires: 4 Start: 10-07-2023 End: 01-06-2024 Thyroxine (T4) free [Mass/volume] in Serum or Plasma [facility] Work Phone: Comment on above: Expected: 10/07/2023, Expires: Start: 10-07-2023 End: 01-06-2024 Triiodothyronine (T3) [Mass/volume] in Serum or Plasma [facility] Work Phone: Comment on above: Expected: 10/07/2023, Expires: 4 Start: 08-31-2023 ANNUAL PCP TEAM CHRONIC DISEASE VISIT ANNUAL PCP TEAM CHRONIC DISEASE VISIT [facility] Start: 08-23-2023 Advance Directive Discussion Advance Directive Discussion [facility] Start: 08-23-2023 Behavioral Health Screening Behavioral Health Screening [facility] Start: 08-23-2023 Depression Assessment Depression Assessment [facility] Start: 08-12-2023 End: 11-11-2023 Comprehensive metabolic 2000 panel - Serum or Plasma COMP METABOLIC PANEL Lab Routine Hyponatremia Expected: 08/12/2023, Expires: 11/11/2023 [facility] Work Phone: Comment on above: Expected: 08/12/2023, Expires: Start: 08-10-2023 ANNUAL PCP TEAM CHRONIC DISEASE VISIT ANNUAL PCP TEAM CHRONIC DISEASE VISIT [facility] Start: 08-04-2023 End: 11-03-2023 CBC panel - Blood by Automated count CBC Lab Routine Anemia, unspecified type Expected: 08/04/2023, Expires: 11/03/2023 [facility] Work Phone: Comment on above: Expected: 08/04/2023, Expires: 4 Start: 08-04-2023 End: 11-03-2023 CBC W Auto Differential panel - Blood CBC + DIFF Lab Routine Leukocytosis, unspecified type Expected: 08/04/2023, Expires: 11/03/2023 [facility] Work Phone: Comment on above: Expected: 08/04/2023, Expires: 4 Start: 08-04-2023 End: 11-03-2023 Comprehensive metabolic 2000 panel - Serum or Plasma COMP METABOLIC PANEL Lab Routine Anemia, unspecified type Hyponatremia Expected: 08/04/2023, Expires: 11/03/2023 [facility] Work Phone: Comment on above: Expected: 08/04/2023, Expires: Start: 08-04-2023 End: 11-03-2023 Ferritin [Mass/volume] in Serum or Plasma FERRITIN BLD Lab Routine Anemia, unspecified type Expected: 08/04/2023, Expires: 11/03/2023 [facility] Work Phone: Comment on above: Expected: 08/04/2023, Expires: Start: 08-04-2023 End: 11-03-2023 Iron and Iron binding capacity panel - Serum or Plasma IRON + TIBC Lab Routine Anemia, unspecified type Expected: 08/04/2023, Expires: 11/03/2023 [facility] Work Phone: Comment on above: Expected: 08/04/2023, Expires: 4 Start: 07-26-2023 End: 10-25-2023 Cobalamin (Vitamin B12) [Mass/volume] in Serum or Plasma VITAMIN B12 BLOOD Lab Routine Dizziness Expected: 07/26/2023, Expires: 10/25/2023 [facility] Work Phone: Comment on above: Expected: 07/26/2023, Expires: Start: 07-26-2023 End: 10-25-2023 Magnesium [Mass/volume] in Serum or Plasma MAGNESIUM BLD Lab Routine Dizziness Expected: 07/26/2023, Expires: 10/25/2023 [facility] Work Phone: Comment on above: Expected: 07/26/2023, Expires: Start: 07-23-2023 End: 10-22-2023 Urinalysis complete panel - Urine URINALYSIS WITH MICROSCOPIC, REFLEX CULTURE Lab Routine Leukocytosis, unspecified type Expected: 07/23/2023, Expires: 10/22/2023 [facility] Work Phone: Comment on above: Expected: 07/23/2023, Expires: 4 Start: 07-21-2023 End: 10-20-2023 Lipid 1996 panel - Serum or Plasma [facility] Work Phone: Comment on above: Expected: 07/21/2023, Expires: 4 Start: 07-21-2023 End: 10-20-2023 Thyrotropin [Units/volume] in Serum or Plasma [facility] Work Phone: Comment on above: Expected: 07/21/2023, Expires: 4 Start: 07-21-2023 End: 10-20-2023 Thyroxine (T4) free [Mass/volume] in Serum or Plasma [facility] Work Phone: Comment on above: Expected: 07/21/2023, Expires: 4 Start: 07-21-2023 End: 10-20-2023 Triiodothyronine (T3) [Mass/volume] in Serum or Plasma [facility] Work Phone: Comment on above: Expected: 07/21/2023, Expires: 4 Start: 07-17-2023 End: 10-16-2023 Thyrotropin [Units/volume] in Serum or Plasma TSH BLD Lab Routine Hypothyroidism, unspecified type Expected: 07/17/2023, Expires: 10/16/2023 [facility] Work Phone: Comment on above: Expected: 07/17/2023, Expires: 4 Start: 07-17-2023 End: 10-16-2023 Thyroxine (T4) free [Mass/volume] in Serum or Plasma T4 FREE/FREE THYROX Lab Routine Hypothyroidism, unspecified type Expected: 07/17/2023, Expires: 10/16/2023 [facility] Work Phone: Comment on above: Expected: 07/17/2023, Expires: 4 Start: 07-17-2023 End: 10-16-2023 Triiodothyronine (T3) [Mass/volume] in Serum or Plasma T3 BLD Lab Routine Hypothyroidism, unspecified type Expected: 07/17/2023, Expires: 10/16/2023 [facility] Work Phone: Comment on above: Expected: 07/17/2023, Expires: 4 Start: 07-08-2023 ANNUAL PCP TEAM CHRONIC DISEASE VISIT ANNUAL PCP TEAM CHRONIC DISEASE VISIT [facility] Start: 06-29-2023 [facility] Start: 06-29-2023 Ambulatory ECG [facility] Start: 05-17-2023 End: 07-17-2023 CBC W Auto Differential panel - Blood CBC + DIFF Lab Routine Dizziness Essential hypertension Expected: 05/17/2023, Expires: 07/17/2023 [facility] Work Phone: Comment on above: Expected: 05/17/2023, Expires: 3 Start: 05-17-2023 End: 07-17-2023 Comprehensive metabolic 2000 panel - Serum or Plasma COMP METABOLIC PANEL Lab Routine Dizziness Essential hypertension Expected: 05/17/2023, Expires: 07/17/2023 [facility] Work Phone: Comment on above: Expected: 05/17/2023, Expires: 3 Start: 05-17-2023 End: 07-17-2023 Insulin [Units/volume] in Serum or Plasma INSULIN ASSAY BLOOD Lab Routine Dizziness Expected: 05/17/2023, Expires: 07/17/2023 [facility] Work Phone: Comment on above: Expected: 05/17/2023, Expires: 3 Start: 05-17-2023 End: 07-17-2023 Thyrotropin [Units/volume] in Serum or Plasma TSH BLD Lab Routine Hypothyroidism, unspecified type Dizziness Expected: 05/17/2023, Expires: 07/17/2023 [facility] Work Phone: Comment on above: Expected: 05/17/2023, Expires: 3 Start: 05-17-2023 End: 07-17-2023 Thyroxine (T4) free [Mass/volume] in Serum or Plasma T4 FREE/FREE THYROX Lab Routine Hypothyroidism, unspecified type Dizziness Expected: 05/17/2023, Expires: 07/17/2023 [facility] Work Phone: Comment on above: Expected: 05/17/2023, Expires: Start: 05-17-2023 End: 07-17-2023 Triiodothyronine (T3) [Mass/volume] in Serum or Plasma T3 BLD Lab Routine Hypothyroidism, unspecified type Dizziness Expected: 05/17/2023, Expires: 07/17/2023 [facility] Work Phone: Comment on above: Expected: 05/17/2023, Expires: Start: 04-23-2023 Influenza vaccination INFLUENZA (#1) [facility] Start: 04-15-2023 End: 06-15-2023 Thyrotropin [Units/volume] in Serum or Plasma TSH BLD Lab Routine Hypothyroidism, unspecified type Expected: 04/15/2023, Expires: 06/15/2023 [facility] Work Phone: Comment on above: Expected: 04/15/2023, Expires: 3 Start: 04-15-2023 End: 06-15-2023 Thyroxine (T4) free [Mass/volume] in Serum or Plasma T4 FREE/FREE THYROX Lab Routine Hypothyroidism, unspecified type Expected: 04/15/2023, Expires: 06/15/2023 [facility] Work Phone: Comment on above: Expected: 04/15/2023, Expires: 3 Start: 04-15-2023 End: 06-15-2023 Triiodothyronine (T3) Free [Mass/volume] in Serum or Plasma T3 FREE BLD Lab Routine Hypothyroidism, unspecified type Expected: 04/15/2023, Expires: 06/15/2023 [facility] Work Phone: Comment on above: Expected: 04/15/2023, Expires: 3 Start: 03-20-2023 [facility] Start: 03-20-2023 Bacteria identified in Urine by Culture Urine Culture [facility] Start: 03-01-2023 End: 05-01-2023 25-hydroxyvitamin D3 [Mass/volume] in Serum or Plasma VITAMIN D 25 HYDROXY Lab Routine Vitamin D deficiency Expected: 03/01/2023, Expires: 05/01/2023 [facility] Work Phone: Comment on above: Expected: 03/01/2023, Expires: 3 Start: 03-01-2023 End: 05-01-2023 CBC panel - Blood by Automated count CBC Lab Routine Dyslipidemia Expected: 03/01/2023, Expires: 05/01/2023 [facility] Work Phone: Comment on above: Expected: 03/01/2023, Expires: 3 Start: 03-01-2023 End: 05-01-2023 Comprehensive metabolic 2000 panel - Serum or Plasma COMP METABOLIC PANEL Lab Routine Dyslipidemia Expected: 03/01/2023, Expires: 05/01/2023 [facility] Work Phone: Comment on above: Expected: 03/01/2023, Expires: 3 Start: 03-01-2023 End: 05-01-2023 Iron and Iron binding capacity panel - Serum or Plasma IRON + TIBC Lab Routine Other iron deficiency anemia Expected: 03/01/2023, Expires: 05/01/2023 [facility] Work Phone: Comment on above: Expected: 03/01/2023, Expires: 3 Start: 03-01-2023 End: 05-01-2023 Lipid 1996 panel - Serum or Plasma LIPID PANEL BASIC Lab Routine Dyslipidemia Expected: 03/01/2023, Expires: 05/01/2023 [facility] Work Phone: Comment on above: Expected: 03/01/2023, Expires: 3 Start: 03-01-2023 End: 05-01-2023 Thyrotropin [Units/volume] in Serum or Plasma TSH BLD Lab Routine Hypothyroidism, unspecified type Expected: 03/01/2023, Expires: 05/01/2023 [facility] Work Phone: Comment on above: Expected: 03/01/2023, Expires: 3 Start: 03-01-2023 End: 05-01-2023 Thyroxine (T4) free [Mass/volume] in Serum or Plasma T4 FREE/FREE THYROX Lab Routine Hypothyroidism, unspecified type Expected: 03/01/2023, Expires: 05/01/2023 [facility] Work Phone: Comment on above: Expected: 03/01/2023, Expires: 3 Start: 03-01-2023 End: 05-01-2023 Triiodothyronine (T3) Free [Mass/volume] in Serum or Plasma T3 FREE BLD Lab Routine Hypothyroidism, unspecified type Expected: 03/01/2023, Expires: 05/01/2023 [facility] Work Phone: Comment on above: Expected: 03/01/2023, Expires: 3 Start: 02-25-2023 Adult depression screening assessment DEPRESSION SCREENING [facility] Start: 02-25-2023 ANNUAL PCP TEAM CHRONIC DISEASE VISIT ANNUAL PCP TEAM CHRONIC DISEASE VISIT [facility] Start: 02-25-2023 SERUM CREATININE SERUM CREATININE [facility] Start: 02-25-2023 Urine microalbumin profile DTAP,TDAP,TD (1 - Tdap) [facility] Comment on above: Postponed from 1959 (Declined at t his time) Start: 08-23-2022 ADVANCE DIRECTIVE DISCUSSION ADVANCE DIRECTIVE DISCUSSION [facility] Start: 08-20-2022 SERUM CREATININE SERUM CREATININE [facility] Start: 04-23-2022 Influenza vaccination INFLUENZA (#1) [facility] Start: 03-29-2022 End: 05-29-2022 Thyrotropin [Units/volume] in Serum or Plasma TSH BLD Lab Routine Hypothyroidism, unspecified type Expected: 03/29/2022, Expires: 05/29/2022 [facility] Work Phone: Comment on above: Expected: 03/29/2022, Expires: 2 Start: 03-29-2022 End: 05-29-2022 Thyroxine (T4) free [Mass/volume] in Serum or Plasma T4 FREE/FREE THYROX Lab Routine Hypothyroidism, unspecified type Expected: 03/29/2022, Expires: 05/29/2022 [facility] Work Phone: Comment on above: Expected: 03/29/2022, Expires: 2 Start: 03-29-2022 End: 05-29-2022 Triiodothyronine (T3) [Mass/volume] in Serum or Plasma T3 BLD Lab Routine Hypothyroidism, unspecified type Expected: 03/29/2022, Expires: 05/29/2022 [facility] Work Phone: Comment on above: Expected: 03/29/2022, Expires: 2 Start: 02-25-2022 End: 04-27-2022 25-hydroxyvitamin D3 [Mass/volume] in Serum or Plasma [facility] Work Phone: Comment on above: Expected: 02/25/2022, Expires: 2 Start: 02-25-2022 End: 04-27-2022 CBC panel - Blood by Automated count [facility] Work Phone: Comment on above: Expected: 02/25/2022, Expires: 2 Start: 02-25-2022 End: 04-27-2022 Comprehensive metabolic 2000 panel - Serum or Plasma [facility] Work Phone: Comment on above: Expected: 02/25/2022, Expires: 2 Start: 02-25-2022 End: 04-27-2022 Ferritin [Mass/volume] in Serum or Plasma [facility] Work Phone: Comment on above: Expected: 02/25/2022, Expires: 2 Start: 02-25-2022 End: 04-27-2022 Hemoglobin A1c in Blood [facility] Work Phone: Comment on above: Expected: 02/25/2022, Expires: 2 Start: 02-25-2022 End: 04-27-2022 Iron and Iron binding capacity panel - Serum or Plasma [facility] Work Phone: Comment on above: Expected: 02/25/2022, Expires: 2 Start: 02-25-2022 End: 04-27-2022 Lipid 1996 panel - Serum or Plasma [facility] Work Phone: Comment on above: Expected: 02/25/2022, Expires: 2 Start: 02-25-2022 End: 04-27-2022 Thyrotropin [Units/volume] in Serum or Plasma [facility] Work Phone: Comment on above: Expected: 02/25/2022, Expires: 2 Start: 02-25-2022 End: 04-27-2022 Thyroxine (T4) free [Mass/volume] in Serum or Plasma [facility] Work Phone: Comment on above: Expected: 02/25/2022, Expires: 2 Start: 02-25-2022 End: 04-27-2022 Triiodothyronine (T3) [Mass/volume] in Serum or Plasma [facility] Work Phone: Comment on above: Expected: 02/25/2022, Expires: 2 Start: 01-24-2022 BP CONTROLLED (<130/80) BP CONTROLLED (<130/80) [facility] Start: 12-04-2021 COVID-19 VACCINE (4 - Booster for Moderna series) COVID-19 VACCINE (4 - Booster for Moderna series) [facility] Start: 09-30-2021 COVID-19 VACCINE (4 - Booster for Moderna series) COVID-19 VACCINE (4 - Booster for Moderna series) [facility] Start: 09-30-2021 COVID-19 VACCINE (4 - Moderna series) COVID-19 VACCINE (4 - Moderna series) [facility] Start: 08-23-2021 ADVANCE DIRECTIVE DISCUSSION ADVANCE DIRECTIVE DISCUSSION [facility] Start: 08-23-2021 DEPRESSION ASSESSMENT DEPRESSION ASSESSMENT [facility] Start: 2017 RSV Vaccine (1 - 1-dose 75+ series) RSV Vaccine (1 - 1-dose 75+ series) [facility] Start: 2002 RSV Vaccine (1 - 1-dose 60+ series) RSV Vaccine (1 - 1-dose 60+ series) [facility] Start: 1961 Urine microalbumin profile [facility] 25-hydroxyvitamin D3 [Mass/volume] in Serum or Plasma VITAMIN D 25 HYDROXY Lab Routine Vitamin D deficiency 02/10/2024 7:27 AM EDT [facility] Bacteria identified in Urine by Culture URINE CULTURE Microbiology Routine 04/06/2022 3:28 PM EDT [facility] Work Phone: Bacteria identified in Urine by Culture URINE CULTURE Microbiology Routine Dysuria Ordered: 03/31/2023 [facility] Work Phone: Comment on above: Ordered: 03/31/2023 Bacteria identified in Urine by Culture URINE CULTURE Microbiology Routine Dizziness 05/17/2023 4:08 PM EDT [facility] Work Phone: CBC W Auto Different ial panel - Blood COMPLETE BLOOD COUNT AND DIFFERENTIAL Lab Routine Other iron deficiency anemia 02/10/2024 7:27 AM EDT [facility] Cobalamin (Vitamin B 12) [Mass/volume] in Serum or Plasma VITAMIN B12 Lab Routine Stage 3a chronic kidney disease (HCC) 02/10/2024 7:27 AM EDT [facility] Comprehensive metabo lic 2000 panel - Serum or Plasma COMPREHENSIVE METABOLIC PANEL Lab Routine Stage 3a chronic kidney disease (HCC) 02/10/2024 7:27 AM T [facility] COVID & INFLUENZA A/ B & RSV NAAT, ROUTINE COVID & INFLUENZA A/B & RSV NAAT, ROUTINE Microbiology Routine URI, acute Ordered: 11/06/2023 [facility] Work Phone: Comment on above: Ordered: 11/06/2023 End: 07-08-2023 ECG COMPLETE ECG COMPLETE ECG Routine Gastroesophageal reflux disease, unspecified whether esophagitis present Essential hypertension 1 Occurrences starting 07/08/2022 until 07/08/2023 [facility] Work Phone: Comment on above: 1 Occurrences starting 07/08/2022 until 07/08/2023 ECG COMPLETE ECG COMPLETE ECG 11/24/2023 8:28 AM EDT [facility] End: 07-08-2023 Echocardiography ECHO Cardiology Routine Gastroesophageal reflux disease, unspecified whether esophagitis present Essential hypertension 1 Occurrences starting 07/08/2022 until 07/08/2023 [facility] Work Phone: Comment on above: 1 Occurrences starting 07/08/2022 until 07/08/2023 OUTSIDE VENDOR CARDI AC OUTPATIENT EXTENDED RHYTHM RECORDING (WITHOUT TELEMETRY) OUTSIDE VENDOR CARDIAC OUTPATIENT EXTENDED RHYTHM RECORDING (WITHOUT TELEMETRY) Holter Routine Dizziness Ordered: 07/21/2023 [facility] Work Phone: Comment on above: Ordered: 07/21/2023 Patient Education [facility] Work Phone: Patient referral [facility] Work Phone: Thyrotropin [Units/volume] in Serum or Plasma THYROID STIMULATING HORMONE Lab Routine Hypothyroidism, unspecified type 02/10/2024 7:27 AM EDT [facility] Thyroxine (T4) free [Mass/volume] in Serum or Plasma T4 FREE/FREE THYROXINE Lab Routine Hypothyroidism, unspecified type 02/10/2024 7:27 AM EDT [facility] UA DIP, URINE (POC) UA DIP, URIN E (POC) Lab Routine Dizziness Ordered: 05/17/2023 [facility] Work Phone: Comment on above: Ordered: 05/17/2023 End: 07-08-2023 US CAROTID ARTERIES DOE [facility]AS [facility] US CAROTID ARTERIES DOE [facility]AS LAB Vascular Lab Routine Gastroesophageal reflux disease, unspecified whether esophagitis present Essential hypertension 1 Occurrences starting 07/08/2022 until 07/08/2023 [facility] Work Phone: Comment on above: 1 Occurrences starting 07/08/2022 until 07/08/2023 End: 07-21-2024 US CAROTID ARTERIES DOE VAS LAB US CAROTID ARTERIES DOE VAS LAB Vascular Lab Routine Dizziness 1 Occurrences starting 07/21/2023 until 07/21/2024 [facility] Work Phone: Comment on above: 1 Occurrences starting 07/21/2023 until 07/21/2024 [facility] Immunizations Immunization Date Immunization Notes Care Provider Kirstin arunleni 07-10-2024 influenza virus vacc ine, unspecified formulation Margoth Chavez LORRY WEIGHER.[employer]IP[employer] MECH[employer] Work Phone: [facility] 06-14-2024 influenza, high dose seasonal, preservative-free Sreekanth Cortez DO Work Phone: [facility] 08-12-2023 influenza (HD-IIV4) vaccine, age 65+ yr, high dose, quadrivalent, PF (FLUZONE HIGH-DOSE) Donita Estes LORRY WEIGHER.[employer]OUN[employer] EQUIPMENT MECHANIC Work Phone: [facility] 08-12-2023 influenza virus vacc ine, unspecified formulation Delilah Deborah DO Work Phone: [facility] 06-08-2022 influenza, high dose seasonal, preservative-free Sergei Renner LORRY WEIGHER.[employer]OUN[employer] EQUIPMENT MECHANIC Work Phone: [facility] 06-08-2022 influenza virus vacc ine, unspecified formulation Donita Estes LORRY WEIGHER.[employer]OUNDR[employer] EQUIPMENT MECHANIC Work Phone: [facility] 07-05-2021 influenza, high dose seasonal, preservative-free Donita Zurawick LORRY WEIGHER.[employer]OUNDRY EQUIPMENT MECHANIC Work Phone: [facility] Work Phone: 10-30-2020 COVID-19 vaccine, fu ll dose (MODERNA) Donita Zurawick LORRY WEIGHER.[employer]OUN[employer] EQUIPMENT MECHANIC Work Phone: [facility] 10-03-2020 COVID-19 vaccine, fu ll dose (MODERNA) Donita Zurawick LORRY WEIGHER.[employer]OUN[employer] EQUIPMENT MECHANIC Work Phone: [facility] 07-05-2020 zoster vaccine recombinant Donita Zurawick LORRY WEIGHER.[employer]OUN[employer] EQUIPMENT MECHANIC Work Phone: [facility] Work Phone: 03-25-2020 zoster vaccine recombinant Donita Zurawick LORRY WEIGHER.[employer]OUN[employer] EQUIPMENT MECHANIC Work Phone: [facility] Work Phone: 06-28-2019 influenza, high dose seasonal, preservative-free Donita Zurawick LORRY WEIGHER.[employer]OUN[employer] EQUIPMENT MECHANIC Work Phone: [facility] Work Phone: 06-13-2018 influenza, high dose seasonal, preservative-free Donita Zurawick LORRY WEIGHER.[employer] EQUIP[employer] MECHANIC Work Phone: [facility] Work Phone: 02-28-2016 pneumococcal conjuga te vaccine, 13 valent Donita Zurawick LORRY WEIGHER.[facility] Work Phone: [facility] Work Phone: 02-27-2013 pneumococcal polysaccharide vaccine, 23 valent Donita Zurawick LORRY WEIGHER.[facility] Work Phone: [facility] Work Phone: Payers Date Payer Category Payer Medicare [id number] 2023 Medicare (Managed Care) [id number] 2023 Unknown [id number] 2023 Self-pay [id number] 2022 Unknown [id number] 2020 Medicare UHC AARP MEDICAR E UHC AARP MEDICARE HMO [id number] 2020-Present [phone] [address] [address] [place] [address] O [id number] 2020 Medicare [id number] 1940 Unknown [id number] Medicare ANTH MEDICARE PPO [id number] Medicare MEDICARE PART A B [id number] Unknown Unknown [facility] [employer] [id number] Unknown [id number] Unknown [id number] Unknown [id number] Social History Date Type Detail Facility Start: 04-06-2022 Tobacco smoking stat NHIS Never smoked tobacco [facility] Start: 02-25-2022 End: 02-19-2025 Alcohol intake Current non-drinker of alcohol (finding) [facility] Start: 1940 Sex Assigned At Female C [facility] Start: 02-15-2022 End: 07-08-2022 Exposure to SARS-CoV-2 (event) Not sure [facility] Start: 04-06-2022 Tobacco use and exposure Smokeless tobacco non-user [facility] Start: 12-25-2022 End: 08-10-2023 History of Social function [facility] Work Phone: Start: 12-25-2022 End: 08-10-2023 Tobacco use panel [facility] Work Phone: Adult Depression Screening Assessment 0 [facility] Work Phone: Start: 06-23-2020 Gender identity Identifies as female gender (finding) [facility] Start: 03-20-2023 End: 06-29-2023 Tobacco smoking status NHIS Unknown if ever smoked [facility] Start: 10-05-2017 None [facility] Start: 10-03-2017 Spouse/ Signif icant Other [facility] (I/We) worried wheth er (my/our) food would run out before (I/we) got money to buy more. Never true [facility] In the past 12 month s, was there a time when you were not able to pay the mortgage or rent on time? No [facility] Functional Status Date Assessment Result Facility 08-13-2023 Are you deaf, or do you have serious difficulty hearing No 08/13/2023 2:52 PM Laura Garcia, ENEDELIA No [facility] 08-13-2023 Are you blind, or do you have serious difficulty seeing, even when wearing glasses No 08/13/2023 2:52 PM Laura Garcia, ENEDELIA No [facility] 08-13-2023 Do you have serious difficulty walking or climbing stairs No 08/13/2023 2:52 PM Laura Garcia, ENEDELIA [facility] 08-13-2023 Do you have difficul ty dressing or bathing No 08/13/2023 2:52 PM Laura Garcia, ENEDELIA [facility] 08-13-2023 Because of a physica l, mental, or emotional condition, do you have difficulty doing errands alone such as visiting a physician's office or shopping No 08/13/2023 2:52 PM Laura Garcia, ENEDELIA No [facility] Mental Status Date Assessment Result Facility 08-13-2023 Because of a physica l, mental, or emotional condition, do you have serious difficulty concentrating, remembering, or making decisions No 08/13/2023 2:52 PM Laura Garcia, ENEDELIA [facility] 06-29-2023 Cognitive function Level Of Cons ciousness Awake;Appropriate;Drowsy [facility] Work Phone: 03-20-2023 Cognitive function Level Of Cons ciousness Awake;Alert;Appropriate;Fol lows Commands [facility] Work Phone: Clinical Notes 02-25-2022 to 02-19-2025 Patient InstructionsMargoth Chavez APRN.FOUNDRY EQUIPMENT MECHANIC - 02/19/2025 12:43 PM Sreekanth Lyles DO - 02/05/2025 11:01 AM EDTPatient InstructionsPatient Instructions Note Date & Type Note Facility 02-19-2025 Instructions Margoth Chavez APRN.FOUNDRY EQUIPMENT MECHANIC - 02/19/2025 1:08 PM EDT Stop at labs and get labs drawn Continue logging blood pressure and take hydralazine as needed Follow with cardiology documented in this encounter [facility] 02-19-2025 Note HNO ID: [id number] Author: MARGOTH CHAVEZ APRN.CNP Service: ? Author [...] SPEC WHEN PFRMD 12/05/2013 Colonoscopy done in [facility] FLX W/REMOVAL LESION BY HOT BX FORCEPS [...] auscultation. No wheezing, (more content not included)... [facility] 02-19-2025 History of Present illness Narrative This [...] SPEC WHEN PFRMD 12/05/2013 Colonoscopy done in [facility] FLX W/REMOVAL LESION BY HOT BX FORCEPS [...] Making Level: 4 - Moderate Recording using Yidio software for draft documentation of the visit was discussed with the patient/authorized special service representative; all questions welcomed and answered. Patient/authorized special service representative agreed to proceed documented in this encounter [facility] 02-05-2025 Note HNO ID: [id number] Author: SREEKANTH CORTEZ, DO Service: ? Author [...] Monitor serum sodium levels regularly. Recording using Yidio software for draft documentation of the visit was discussed with the patient/authorized special service representative; all questions welcomed and answered. Patient/authorized special service representative agreed to proceed [facility] 02-05-2025 History of Present illness Narrative Subjective [...] Monitor serum sodium levels regularly. Recording using Yidio software for draft documentation of the visit was discussed with the patient/authorized special service representative; all questions welcomed and answered. Patient/authorized special service representative agreed to proceed documented in this encounter [facility] 02-05-2025 Instructions Sreekanth Cortez DO - 02/05/2025 9:41 AM EDT STOP the metoprolol START on the Coreg 12.5 mg twice a day for BLOOD PRESSURE instead of the metoprolol OKAY to use the Hydralazine 25 mg medication as needed for BLOOD PRESSURE >140/90 documented in this encounter [facility] 12-25-2024 Instructions Maribeth Griffiths APRN.SATISH - 12/25/2024 1:52 PM EDT I have changed Metoprolol to 75 mg twice a day- you will need to take a 25 mg tablet along with a 50 mg tablet to equal 75 mg documented in this encounter [facility] 12-25-2024 Note HNO ID: [id number] Author: MARIBETH GRIFFITHS APRN.SATISH Service: ? Author [...] MG TABLET,EXTENDED RELEASE 24 HR Maribeth Jamesonlogmyranda, LORRY WEIGHER.FOUNDRY EQUIPMENT MECHANIC Prescription instructions reviewed with patient as applicable. [...] Medical Decision Making Level: 4 - Moderate [facility] 12-25-2024 History of Present illness Narrative 12/25/2024 [...] 4 - Moderate documented in this encounter [facility] 12-25-2024 Telephone encounter Note Pt [...] in am and pm Chyna Ramirez RN [facility] 12-25-2024 Miscellaneous Notes Pt called [...] Chyna Ramirez RN documented in this encounter [facility] 11-28-2024 Telephone encounter Note Pt notified of provider's message. Pt voiced understanding concerning medication. Farnaz Mays LPN [facility] 11-28-2024 Miscellaneous Notes Pt notified [...] Cortez would like. documented in this encounter [facility] 11-28-2024 Telephone encounter Note Her [...] a day. Authorizing Provider: SREEKANTH CORTEZ DO [facility] 11-28-2024 Telephone encounter Note Pt [...] Ramirez RN November 28, 2024 4:27 PM [facility] 11-28-2024 Telephone encounter Note Yes, this is still higher BLOOD PRESSURE than I would like Please apologize since I was out of office last week Option would be to increase her metoprolol to 50 mg in AM and 50 mg in PM If willing to do this, please load rx for me to send in Sreekanth Cortez DO [facility] 11-21-2024 Telephone encounter Note Pt returned the call and notified of results and Sergei Renner's information and instructions. [facility] 11-21-2024 Miscellaneous Notes Pt returned [...] anything there. No other concerns. Sergei Renner APRN.FOUNDRY EQUIPMENT MECHANIC documented in this encounter [facility] 11-21-2024 Telephone encounter Note Pt [...] higher than what Dr. Cortez would like. [facility] 11-21-2024 Telephone encounter Note Left message to return call Silvana Rousseau MA [facility] 11-21-2024 Telephone encounter Note Please let her know I received her lab results. Her TSH thyroid level is a little bit low, but this is actually a good range where Dr. Cortez likes it to run, so need to change anything there. No other concerns. Sergei Renner APRN.SATISH [facility] Work Phone: 11-09-2024 Telephone encounter Note Prescription [...] tablet by mouth every afternoon. [facility] November 09, 2024 8:13 AM [facility] 11-09-2024 Miscellaneous Notes Prescription Refill Information The [...] tablet by mouth every afternoon. Laura [facility] November 09, 2024 8:13 AM documented in this encounter [facility] 10-11-2024 Telephone encounter Note Prescription [...] Antonina Love October 11, 2024 8:39 AM [facility] 10-11-2024 Miscellaneous Notes Prescription Refill [...] 2024 8:39 AM documented in this encounter [facility] 08-08-2024 Note HNO ID: [id number] Author: SREEKANTH CORTEZ, DO Service: ? Author [...] SPEC WHEN PFRMD 12/05/2013 Colonoscopy done in [facility] FLX W/REMOVAL LESION BY HOT BX FORCEPS [...] symptoms. Discussed r (more content not included)... [facility] 08-08-2024 History of Present illness Narrative CC: [...] SPEC WHEN PFRMD 12/05/2013 Colonoscopy done in [facility] FLX W/REMOVAL LESION BY HOT BX FORCEPS [...] with the plan. Sreekanth Cortez DO [address] [place] [address] documented in this encounter [facility] 07-13-2024 Telephone encounter Note Patient notified of provider's instructions and that prescription sent to pharmacy. Patient verbalizes understanding. Roxanne Felix RN [facility] 07-13-2024 Miscellaneous Notes Patient notified [...] on empty stomach Authorizing Provider: SERGEI RENNER APRN.FOUNDRY EQUIPMENT MECHANIC Patient notified of results and provider's instructions. Patient verbalizes understanding. Patient states that she would be willing to try the brand name of levothyroxine 100 mcg. Patient uses [facility] as pharmacy. Roxanne Felix RN Her TSH level has improved but is still too high. The levothyroxine 88mcg is not enough. Would she be willing to try the 100mcg again if we order it to be dispensed as the name brand rather generic? Sometimes the reactions are from fillers that are in the generics. Sergei Renner APRN.SATISH documented in this encounter [facility] 07-13-2024 Telephone encounter Note Synthroid, JUDITH, sent. Recheck thyroid labs in about 6 weeks. The following approved medication requests have been transmitted electronically. Requested Prescriptions Signed Prescriptions Disp Refills SYNTHROID 100 mcg tablet 30 tablet 2 Sig: Take 1 tablet by mouth once daily. Take on empty stomach Authorizing Provider: SERGEI RENNER APRN.CNP [facility] 07-12-2024 Telephone encounter Note Patient notified of results and provider's instructions. Patient verbalizes understanding. Patient states that she would be willing to try the brand name of levothyroxine 100 mcg. Patient uses [facility] as pharmacy. Roxanne Felix RN [facility] 07-12-2024 Telephone encounter Note Her TSH level has improved but is still too high. The levothyroxine 88mcg is not enough. Would she be willing to try the 100mcg again if we order it to be dispensed as the name brand rather generic? Sometimes the reactions are from fillers that are in the generics. Sergei Renner APRN.CNP [facility] 06-06-2024 Telephone encounter Note Noted, thank you. Sergei Renner APRN.CNP [facility] 06-06-2024 Miscellaneous Notes Noted, thank [...] then re-check labs. documented in this encounter [facility] 06-06-2024 Telephone encounter Note Patient [...] for 4 more weeks then re-check labs. [facility] 05-04-2024 Telephone encounter Note Nurse Lili notified of provider message. She will relay info to Dr. Ray and contact office with provider response. Silvana Rousseau MA [facility] 05-04-2024 Miscellaneous Notes Nurse Lili [...] Dr. Stoney Ray's office, this is her c2 tactical analysis technician, outside of [facility]. Patient's blood pressure at home as [...] regimen or add anything? Thanks Sergei Renner APRN.FOUNDRY EQUIPMENT MECHANIC documented in this encounter [facility] 05-02-2024 Telephone encounter Note Patient returned call and given provider's message below and patient verbalized understanding. Alfredo Lisa RN [facility] 05-02-2024 Miscellaneous Notes Patient returned [...] SERGEI RENNER APRN.CNP documented in this encounter [facility] 05-02-2024 Telephone encounter Note Message left for pt to call back for results. Ai Jorgensen MA [facility] 05-02-2024 Telephone encounter Note Please [...] empty stomach Authorizing Provider: SERGEI RENNER APRN.SATISH [facility] 05-02-2024 Telephone encounter Note Nephrology office will contact our office back and ask to speak with triage nurse for provider message. Please see RS note below. Silvana Rousseau MA [facility] 04-28-2024 Telephone encounter Note Attempted to contact office and speak with MA/Nurse but line rings busy. Will need to try again. Silvana Rousseau MA T [facility] 04-28-2024 Telephone encounter Note Please contact Dr. Stoney Ray's office, this is her c2 tactical analysis technician, outside of [place]. Patient's blood pressure at [...] regimen or add anything? Thanks Sergei Renner APRN.FOUNDRY EQUIPMENT MECHANIC T [facility] 04-28-2024 Note HNO ID: [id number] Author: SERGEI RENNER APRN.CNP Service: ? Author [...] Sees Dr. Stoney Ray, he comes to [facility] once a week on Wednesdays. Past medical history, appointments, medications, allergies reviewed. Previous Medical History PAST MEDICAL HISTORY No date: Acid reflux No date: Hiatal hernia No date: Hypertension No date: Hypothyroid No date: Palpitation Previous Surgical History PAST SURGICAL HISTORY 2000: CARPAL TUNNEL Comment: bilateral 12/05/2013: COLONOSCOPY FLX DX W/COLLJ SPEC WHEN PFRMD Comment: Colonoscopy done in [place] 02/19/2020: [facility] FLX W/REMOVAL LESION BY HOT [...] - THYROID STIMU (more content not included)... [facility] 04-28-2024 History of Present illness Narrative Chief [...] Sees Dr. Stoney Ray, he comes to [facility] once a week on Wednesdays. Past medical history, appointments, medications, allergies reviewed. Previous Medical History PAST MEDICAL HISTORY No date: Acid reflux No date: Hiatal hernia No date: Hypertension No date: Hypothyroid No date: Palpitation Previous Surgical History PAST SURGICAL HISTORY 2000: CARPAL TUNNEL Comment: bilateral 12/05/2013: COLONOSCOPY FLX DX W/COLLJ SPEC WHEN PFRMD Comment: Colonoscopy done in [place] 02/19/2020: [facility] FLX W/REMOVAL LESION BY HOT [...] IRON AND TIBC - FERRITIN Sergei Renner APRN.FOUNDRY EQUIPMENT MECHANIC documented in this encounter [facility] 04-28-2024 Evaluation note Diagnosis Hypertension, essential- Primary Unspecified essential hypertension Stage 3a chronic kidney disease (HCC) Hypothyroidism, unspecified type Other iron deficiency anemia documented in this encounter [facility]08-01-2024 NoteHNO ID: [id number] Author: DELILAH TRAORE, DO Service: ? Author Type: Physician Type: Progress Notes Filed: 03/23/2024 08:41 Note Text: [facility]ARDI[facility]IC[facility] CONSULT NOTE Casandra Henry [id number] PRIMARY SERVICE: Internal Medicine CONSULTING SERVICE: Cardiovascular [...] SPEC WHEN PFRMD Comment: Colonoscopy done in [place] 02/19/2020: COLSC FLX W/REMOVAL LESION BY HOT [...] with NSR ( (more content not included)... [facility]08-01-2024 History of Present illness Narrative* Delilah Traore DO - 03/23/2024 8:20 AM EDT [facility]IC[facility] CONSULT NOTE Casandra Henry [id number] PRIMARY SERVICE: Internal Medicine CONSULTING SERVICE: Cardiovascular Medicine: DATE OF ADMISSION: (Not on file) [facility] 08/11/2023 HISTORY OF PRESENT ILLNESS Casandra [...] SPEC WHEN PFRMD Comment: Colonoscopy done in [place] 02/19/2020: [facility] FLX W/REMOVAL LESION BY HOT [...] DO, FACC, FCCP, FACOI documented in this encounterUniversity [facility]06-[facility] History of Present illness Narrative* [...] SPEC WHEN PFRMD 12/05/2013 Colonoscopy done in [facility] FLX W/REMOVAL LESION BY HOT BX FORCEPS [...] plan. See patient instructions. Sreekanth Cortez DO [address] [place] [address] documented in this encounterUniversity [facility]06-[facility]24 Evaluation note* Diagnosis Essential hypertension- Primary Unspecified essential hypertension Stage 3a chronic kidney disease (HCC) Hypothyroidism, unspecified type Other iron deficiency anemia Vitamin D deficiency Unspecified vitamin D deficiency documented in this encounter [facility]06-20-2024 Telephone encounter Note* Telephone Encounter - Aby Vega MA - 02/10/2024 9:21 AM EDT Call to pt. After reviewing chart, pt has already completed labs and they are in process. LM on stating that no call back is needed. Aby Vega MA [facility]06-20-2024 Miscellaneous Notes* Telephone Encounter - [...] 02-14-24. Heather Shetty LPN documented in this encounterUniversity [facility]als [facility]06-20-2024 Evaluation note* Diagnosis Stage 3a chronic kidney disease (HCC)- Primary Essential hypertension Unspecified essential hypertension Hypothyroidism, unspecified type Other iron deficiency anemia Vitamin D deficiency Unspecified vitamin D deficiency Fatigue, unspecified type documented in this encounter [facility]06-19-2024 Telephone encounter Note* Telephone Encounter - Sreekanth Cortez DO - 02/09/2024 10:41 PM EDT Orders placed for blood work to be drawn Please notify her Sreekanth Cortez DO [facility]06-19-2024 Telephone encounter Note* Telephone Encounter - Heather Shetty LPN - 02/09/2024 11:30 AM EDT Pt calling for lab orders. Please advise pt when orders are in place. Not certain what labs you wanted pt to have. Please review and advise pt back. Pt has apt 02-14-24. Heather Shetty LPN [facility]04-03-2024 Instructions* Patient Instructions* Gabi More [...] months with Dr. Traore documented in this encounterUniversity [facility]als [facility]04-03-2024 History of Present illness Narrative* Gabi More APRN.SATISH - 11/24/2023 8:47 AM EDT Images from the original note were not included. [facility] [place] [facility] Department of Cardiovascular Medicine SECTION [...] which included preparing to see the patient, [id number] patient care, completing clinical documentation, performing a [...] prior to the follow up. Gabi More APRN.[facility] Cardiology Nurse Practitioner Section of [facility] Cardiology [facility] Dept of Cardiovascular Medicine [facility] [place] [address] [place] [address] Office Office November 24, 2023 8:47 AM This note was partially generated using [employer] voice recognition system and may contain errors [...] already performed. Other chronic findings, as above. Food Beverage Attendant: PSCB Transcribe Date/Time: Aug 11 2023 7:28P [...] and ROS obtained by others. Gabi More APRN.FOUNDRY EQUIPMENT MECHANIC CURRENT MEDICATIONS: Current Outpatient Medications Medication Sig [...] medications for this visit. documented in this encounterUniversity [facility]03-20-2024 Miscellaneous Notes* Telephone Encounter - [...] Thank you. Marti Wright. documented in this encounterUniversity [facility]als [facility]03-17-2024 Miscellaneous Notes* Telephone Encounter - Karen Victoria LPN - 11/07/2023 8:18 AM EDT on patient notified.Karen Victoria LPN * Telephone Encounter - Justice Gaines PA - 11/07/2023 8:10 AM EDT Negative for COVID flu RSV documented in this encounterUniversity Hospitals [facility] Center03-16-2024 History of Present illness Narrative* [...] PATIENT PRESENTS WITH AN IMPLANTABLE OR ATTACHED WIRE DRAWER: No RADIOLOGY DEPARTMENT: General X-ray: Exam(s) Completed: Chest X-Ray PERIPHERAL IV DATA: Not applicable SIGNED BY: RT Wendy(R) November 06, 2023 8:36 AM documented in this encounterUniversity Hospitals [facility] Center03-16-2024 History of Present illness Narrative* Justice Gaines PA - 11/06/2023 8:26 AM EDT This note was created using [employer]. Subjective Casandra Henry is a 83 year [...] SPEC WHEN PFRMD 12/05/2013 Colonoscopy done in [facility] FLX W/REMOVAL LESION BY HOT BX FORCEPS [...] ER evaluation. CALVIN King documented in this encounterUniversity Hospitals [facility] Center03-06-2024 History of Present illness Narrative* [...] metoprolol as prescribed. Has been seen by [employer]. PAST MEDICAL HISTORY Diagnosis Date Acid reflux Hiatal hernia Hypertension Hypothyroid Palpitation PAST SURGICAL HISTORY Procedure Laterality Date CARPAL TUNNEL 2000 bilateral COLONOSCOPY FLX DX W/COLLJ SPEC WHEN PFRMD 12/05/2013 Colonoscopy done in [facility] FLX W/REMOVAL LESION BY HOT BX FORCEPS [...] a day at this time, f/u with [employer] [facility] 4. Hypothyroidism, unspecified type - ICD9: 244.9, ICD10: E03.9 - Instructed patient on importance of taking on an empty stomach either first thing in the morning or at bedtime. Stable, continue current supplement Sreekanth Crotez DO Return if no improvement. Follow up with Srekeanth Cortez DO. To ER if develops chest pain, shortness of breath. Discussed risks, benefits, alternatives, and potential side effects of medications. Patient/Guardian expressed understanding and agreed with the plan. See patient instructions. Sreekanth Cortez DO [address] [place] [address] documented in this encounterUniversity Hospitals [facility] Center02-19-2024 Miscellaneous Notes* Telephone Encounter - [...] Thank you. Marti Wright. documented in this encounterUniversity Hospitals [facility] Center02-16-2024 Miscellaneous Notes* Telephone Encounter - [...] you, Donita Estes APRN.CNP documented in this encounterUniversity Hospitals [facility] Center02-15-2024 History of Present illness Narrative* [...] on sodium supplement. Hypokalemia improved with this. 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 Donita Gonzales APRN.FOUNDRY EQUIPMENT MECHANIC [address] [place] [address] documented in this encounterUniversity Hospitals Cleveland [facility] Center01-20-2024 Telephone encounter Note * Telephone Encounter - Karen Soriano - 09/11/2023 8:12 AM EST .RX [facility] Work Phone: 1(283) 177-638001-20-2024 Miscellaneous Notes* Telephone Encounter - Karen Soriano - 09/11/2023 8:12 AM EST .RX documented in this encounterUniversity Hospitals Cleveland Medical Center12-22-2023 NoteHNO ID: [id number] Author: Sierra Luna RN Service: Care Management [...] Physician Primary Care Physician Name/Phone: Sreekanth Cortez DO/[phone] Discharge Time Out Yes Bedside RN present No Does pt have transport home? Yes Did pt use bedside pharmacy? No Discharge order is written. RN CM met with the patient at bedside to discuss discharge plans. No skilled needs identified. Spouse to tranpsort home. SIGNATURE: Sierra Luna RN PATIENT NAME: Casandra Henry DATE: August 13, 2023 TIME: 1:04 PM CONTACT #: [id number] NoteHNO ID: [id number] Author: Sierra Luna RN Service: Care Management [...] 13, 2023 TIME: 12:59 PM PAGER/CONTACT #: [phone] NoteHNO ID: [id number] Author: Sierra Luna RN Service: Care Management [...] 12, 2023 TIME: 3:03 PM PAGER/CONTACT #: [phone] NoteHNO ID: [id number] Author: Liya Rose MD Service: Hospital Medicine Author Type: Physician Type: Progress Notes Filed: 08/12/2023 9:59 AM Note Text: DEPARTMENT OF HOSPITAL MEDICINE PROGRESS NOTE SERVICE DATE: 08/12/2023 SERVICE TIME: 9:51 AM Hospital Medicine/Primary Attending: Liya Rose MD NIGHT AND WEEKEND COVERAGE: EMPIRE COVERAGE: Days: [phone], please page attending physician. Nights: [phone], please page [facility] Night coverage pager [phone]. Subjective INTERVAL HPI: she is feeling better [...] Drains, and Airways Line Duration Peripheral 08/09/23 0943 [facility] Short Left Antecubital 20 Gauge 2 [...] nodule clinic on disch (more content not included)...[facility] [id number] NoteHNO ID: [id number] Author: Liya Rose MD Service: Hospital Medicine Author Type: Physician Type: Progress Notes Filed: 08/11/2023 4:50 PM Note Text: DEPARTMENT OF HOSPITAL MEDICINE PROGRESS NOTE SERVICE DATE: 08/11/2023 SERVICE TIME: 4:09 PM Hospital Medicine/Primary Attending: Liya Rose MD NIGHT AND WEEKEND COVERAGE: EMPIRE COVERAGE: Days: [phone], please page attending physician. Nights: [phone], please page [facility] Night coverage pager [phone]. Subjective INTERVAL HPI: no palpitations so far [...] and Airways Line Duration Peripheral 08/09/23 0958 [facility] Short Left Antecubital 20 Gauge 2 [...] Prophylaxis/Anticoagulants 08/09/23 1700 activity - mobilize patient (ky,id) VTE Prophylaxis: VTE p (more content not included)...[facility] [id number] NoteHNO ID: [id number] Author: Liya Rose MD Service: Hospital Medicine Author Type: Physician Type: Progress Notes Filed: 08/10/2023 4:56 PM Note Text: DEPARTMENT OF HOSPITAL MEDICINE PROGRESS NOTE SERVICE DATE: 08/10/2023 SERVICE TIME: 4:50 PM Hospital Medicine/Primary Attending: Liya Rose MD NIGHT AND WEEKEND COVERAGE: EMPIRE COVERAGE: Days: [phone], please page attending physician. Nights: [phone], please page [facility] Night coverage pager [phone]. Subjective INTERVAL HPI: no palpitations so far [...] and Airways Line Duration Peripheral 08/09/23 0958 [facility] Short Left Antecubital 20 Gauge 1 [...] Prophylaxis/Anticoagulants 08/09/23 1700 activity - mobilize patient (ky,oh) VTE Prophylaxis: VTE prophylaxis appropriate Disposition: Home Plan of care discussed with Provider, RN, Patient Plan communicated to: SIGNATURE: Liya Rose MD PATIENT NAME: Casandra Henry DATE: August 10, 2023 TIME: 4:50 [facility]MPremier [facility] [id number] NoteHNO ID: [id number] Author: Hugh Vu MD Service: Nephrology Author Type: Physician Type: Plan of Care Filed: 08/10/2023 8:54 AM Note Text: Consult received; repeat labs this AM pending. Full note to follow this afternoon. I placed on fluid restriction yesterday. ThanksHughMain Campus Medical [id number] Miscellaneous Notes* Telephone Encounter - Aby Vega [...] you, Donita Estes APRN.SATISH documented in this encounterUniversity Hospitals Cleveland Medical Center12-06-2023 Miscellaneous Notes* Telephone Encounter - [...] growth at all. Thank you, Donita Estes APRN.FOUNDRY EQUIPMENT MECHANIC documented in this encounterUniversity Hospitals Cleveland Medical Center12-04-2023 Miscellaneous Notes* Telephone Encounter - [...] you, Donita Estes APRN.SATISH documented in this encounterUniversity Hospitals Cleveland Medical Center12-04-2023 Miscellaneous Notes* Telephone Encounter - [...] if/when provider adds labs. documented in this encounterUniversity Hospitals Cleveland Medical Center12-01-2023 Miscellaneous Notes* Telephone Encounter - [...] any other suggestions. Thank you, Donita Estes APRN.FOUNDRY EQUIPMENT MECHANIC * Telephone Encounter - Anita Guevara RN [...] the constipation? Pt uses [facility] in [place]. documented in this encounterUniversity Hospitals Cleveland Medical Center11-29-2023 Nurse Note* Casandra Hairston LPN - 07/21/2023 8:19 AM EST EVENT MONITOR DISPOSABLE PATCH INSTRUCTIONS Patient Name: Casandra Elaine [facility] Number: [id number] Skin prepped and cleansed with alcohol Patch secured to prepped area Monitor Activated Serial #: [id number] Patient Instructed: Prescribed order timeframe Bathing guidelines Usage of event button and diary documentation Return of monitor at the end of prescribed order Call with problems [phone] or [phone]. [phone] Patient expresses a good understanding of instructions Casandra Hairston LPN documented in this encounterUniversity Hospitals Cleveland Medical Center11-29-2023 History of Present illness Narrative* Donita Estes APRN.FOUNDRY EQUIPMENT MECHANIC - 07/21/2023 6:57 AM EST Chief Complaint [...] Recent ER visit on 06/29. 48 hour cascara bark cutter showed: Rare PVCs, no runs. Average heart [...] SPEC WHEN PFRMD 12/05/2013 Colonoscopy done in [facility] FLX W/REMOVAL LESION BY HOT BX FORCEPS [...] agreeable to treatment plan. Donita Gonzales APRN.SATISH 3039 [place] [address] documented in this encounterUniversity Hospitals Cleveland Medical Center11-22-2023 History of Present illness Narrative* Sreekanth Cortez, - 07/14/2023 7:11 AM EST CC: Casandra Henry is a 83 year old female who presents to the office for follow up HPI: At appt March 2023 She was recently seen in the EMERGENCY DEPARTMENT due to elevated BLOOD PRESSURE in the 160s/90s and not feeling well. She had work up at [facility] in the EMERGENCY DEPARTMENT including cardiac and [...] SPEC WHEN PFRMD 12/05/2013 Colonoscopy done in [facility] FLX W/REMOVAL LESION BY HOT BX FORCEPS [...] plan. See patient instructions. Sreekanth Cortez DO [address] [place] [address] documented in this encounterUniversity Hospitals Cleveland Medical Center11-21-2023 Miscellaneous Notes* Telephone Encounter - [...] advise, Roxanne Felix RN documented in this encounterUniversity Hospitals Cleveland Medical Center11-07-2023 Discharge summary Author Josselyn Adhikari [facility] June 29, 2023 3:14pm Note Date/Time June 29, 2023 1 1:03am [facility] Medical Records Department [address] [place] [address] Emergency Department Summary 06/29/23 MR#: [id number] Acct: [id number] Name: CASANDRA HENRY Rep #:[id number] : 1940 83 From: Josselyn Adhikari DO [...] (Auto) 67.9 Lymph % (Auto) 18.0 L [place] % (Auto) 9.5 Eos % (Auto) 3.6 [...] Clear Urine pH 7.0 7.0 Ur Specific Blanco 1.005 1.005 Urine Protein Negative Negative Urine [...] your Primary Care Provider. Call [facility] ([phone]) or report to the closest Emergency Room. Call 911 if necessary. 06/29/23 1514 <Electronically signed by Josselyn Adhikari DO> Cosigner Signature (if applicable): CC: Dr. Sreekanth Cortez DO ~ Signed [facility] Work Phone: 1(615) 265-447011-07-2023 History of Present illness Narrative* Yuan Syed, LORRY WEIGHER.FOUNDRY EQUIPMENT MECHANIC - 06/29/2023 10:39 AM EST Nontoxic appearing [...] urgent care. states will transport patient to [facility]. verbalized understand agrees with plan of care. Yuan Syed APRN.SATISH documented in this encounterUniversity Hospitals Cleveland Medical Center11-01-2023 Miscellaneous Notes* Telephone Encounter - Gisselle Bush LPN - 06/23/2023 12:15 PM EDT Form faxed. * Telephone Encounter - Donita Estes APRN.CNP - 06/23/2023 10:42 AM EDT Form filled out and in my outbox. Please fax. Thank you, Donita Estes APRN.FOUNDRY EQUIPMENT MECHANIC * Telephone Encounter - Sreekanth Cortez DO - 06/22/2023 1:47 PM EDT To Donita to review Sreekanth Cortez DO * Telephone Encounter - Ai Jorgensen Ma - 06/22/2023 12:48 PM EDT Form received and given to Dr. Cortez's nurse. Ai Jorgensen Ma * Telephone Encounter - Masood Wall RN - 06/22/2023 10:37 AM EDT [facility]- [facility]- reports patient is having 4 extractions this coming . [facility] is faxing a clearance form to pcp today, because patient informed them she had some low lab results. Nely Duckworth on 06-16-23. Asking if pcp can clear patient for extractions, fill out/sign form and fax back to them at fax # [phone]. documented in this encounterUniversity Hospitals Cleveland Medical Center10-26-2023 Miscellaneous Notes* Telephone Encounter - [...] in 2 weeks. 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 Donita Gonzales APRN.FOUNDRY EQUIPMENT MECHANIC [address] [place] [address] documented in this encounterUniversity Hospitals Cleveland Medical Center10-19-2023 Miscellaneous Notes* Telephone Encounter - [...] once daily for about a week. Was [id number] one day per week prior. Silvana Rousseau MA * Telephone Encounter - Sreekanth Cortez DO - 06/09/2023 10:38 PM EDT Please call and clarify what dose of thyroid medication she is currently taking? Her TSH is still too low and free t4 is still too high. Her dose needs to be decreased. 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 Donita Gonzales APRN.SATISH [address] [place] [address] documented in this encounterUniversity Hospitals Cleveland Medical Center08-09-2023 History of Present illness Narrative* Sreekanth Cortez, - 03/31/2023 8:39 PM EDT CC: Casandra Henry is a 83 year old female who presents to the office for follow up HPI: She was recently seen in the EMERGENCY DEPARTMENT due to elevated BLOOD PRESSURE in the 160s/90s and not feeling well. She had work up at [facility] in the EMERGENCY DEPARTMENT including cardiac and [...] SPEC WHEN PFRMD 12/05/2013 Colonoscopy done in [facility] FLX W/REMOVAL LESION BY HOT BX FORCEPS [...] plan. See patient instructions. Sreekanth Cortez DO [address] [place] [address] documented in this encounterUniversity Hospitals Cleveland Medical Center08-09-2023 Instructions* Patient Instructions* Sreekanth Cortez DO - 03/31/2023 6:18 PM EDT Blood pressure goal 100-130s / 60-80s Pulse rate goal 60-80s documented in this encounterUniversity Hospitals Cleveland Medical Center07-24-2023 Miscellaneous Notes* Telephone Encounter - Emily Cates MA - 03/15/2023 10:04 AM EDT Prescription was already sent to the pharmacy this date. Emily Cates MA documented in this encounterUniversity Hospitals Cleveland Medical Center07-24-2023 History of Present illness Narrative* [...] SPEC WHEN PFRMD 12/05/2013 Colonoscopy done in [facility] FLX W/REMOVAL LESION BY HOT BX FORCEPS [...] agreed with the plan. Sreekanth Cortez DO [address] [place] [address] documented in this encounterUniversity Hospitals Cleveland Medical Center07-20-2023 Miscellaneous Notes* Telephone Encounter - [...] you. Lorrie Feliciano LPN documented in this encounterUniversity Hospitals Cleveland Medical Center07-19-2023 History of Present illness Narrative* [...] SPEC WHEN PFRMD 12/05/2013 Colonoscopy done in [facility] FLX W/REMOVAL LESION BY HOT BX FORCEPS [...] attention. Marilyn Gutierrez PA-C documented in this encounterUniversity Hospitals Cleveland Medical Center07-19-2023 Miscellaneous Notes* Telephone Encounter - [...] is not normal. Protocols used: Dizziness - Heccsdwgehkuexh-VQIIN-CK, Blood Pressure - Cwkw-YXLEP-RF documented in this encounterUniversity Hospitals Cleveland Medical Center07-18-2023 Miscellaneous Notes* Telephone Encounter - [...] 25 mg tablet [Pharmacy Med Name: METOPROLOL [id number] MG TAB] 180 tablet 1 Sig: take 1 tablet by mouth twice a day Date of last office visit in primary care: 08/31/22 Last 2 Encounter Wt Readings: Date: Wt: 12/25/2022 64.9 kg (143 lb) 08/31/2022 65.3 kg (144 lb) Previous labs/tests for medication: Not applicable Please advise. Thank you. Gisselle Bush LPN documented in this encounterUniversity Hospitals Cleveland Medical Center05-11-2023 Miscellaneous Notes* Telephone Encounter - [...] improve Sreekanth Cortez DO documented in this encounterUniversity Hospitals Cleveland Medical Center05-05-2023 History of Present illness Narrative* [...] 25, 2022 2:33 PM documented in this encounterUniversity Hospitals Cleveland Medical Center05-05-2023 History of Present illness Narrative* [...] SPEC WHEN PFRMD 12/05/2013 Colonoscopy done in [facility] FLX W/REMOVAL LESION BY HOT BX FORCEPS 02/19/[address] Catarino Salas LAPAROSCOPIC DUODENAL BIOPSY 02/13/2020 Catarino aSlas MD; duodenal biopsy, gastric antrum biopsy, irregular [...] plan. See patient instructions. Sreekanth Cortez DO [address] [place] [address] documented in this encounterUniversity Hospitals Cleveland Medical Center01-23-2023 Miscellaneous Notes* Telephone Encounter - Anita Cain LPN - 09/14/2022 10:06 AM EST Patient phones requesting refills as follows: Requested Prescriptions Pending Prescriptions Disp Refills spironolactone (ALDACTONE) 25 mg tablet [Pharmacy Med Name: SPIRONOLACTONE 25 MG TABLET] 90 tablet 1 Sig: take 1 tablet by mouth once daily VIOLA-08/31/22 Labs-02/25/22 NOV-03/15/23 med filled 02/25/22 Please review and advise. Anita aCin LPN documented in this encounterUniversity Hospitals Cleveland Medical Center01-19-2023 Miscellaneous Notes* Telephone Encounter - Lorrie Feliciano LPN - 09/10/2022 10:30 AM EST Patient has been identified by name and date of : Yes Patient phones for refill(s): Requested Prescriptions Pending Prescriptions Disp Refills metoprolol tartrate, short acting, (LOPRESSOR) 25 mg tablet [Pharmacy Med Name: METOPROLOL [id number] MG TAB] 180 tablet 1 Sig: take 1 tablet by mouth twice a day Date of last office visit in primary care: 08/31/2022 Please advise. Thank you. Lorrie Feliciano LPN documented in this encounterUniversity Hospitals Cleveland Medical Center01-10-2023 History of Present illness Narrative* [...] SPEC WHEN PFRMD 12/05/2013 Colonoscopy done in [facility] FLX W/REMOVAL LESION BY HOT BX FORCEPS [...] agreed with the plan. Sreekanth Cortez DO [address] [place] [address] documented in this encounterUniversity Hospitals Cleveland Medical Center12-19-2022 History of Present illness Narrative* [...] APRN.CNP Nirmatrelvir/Ritonavir (Paxlovid) Eligibility and Patient Discussion [facility] Formulary Restriction Criteria: Adult outpatients [...] to proceeding with nirmatrelvir/ritonavir treatment. Sergei Renner APRN.FOUNDRY EQUIPMENT MECHANIC August 10, 2022 12:33 PM documented in this encounterUniversity Hospitals Cleveland Medical Center12-19-2022 Miscellaneous Notes* Telephone Encounter - [...] afternoon. Karolina Bee RN documented in this encounterUniversity Hospitals Cleveland Medical Center11-16-2022 Instructions* Patient Instructions* Margoth Chavez - 07/08/2022 8:21 AM EST Start omeprazole 20mg daily , 30 minutes prior to breakfast. Watch spicy foods, try not to eat at least an hour prior to laying down documented in this encounterUniversity Hospitals Cleveland Medical Center11-16-2022 History of Present illness Narrative* [...] SPEC WHEN PFRMD 12/05/2013 Colonoscopy done in [facility] FLX W/REMOVAL LESION BY HOT BX FORCEPS [...] VAS LAB - ECG COMPLETE Sergei Renner APRN.FOUNDRY EQUIPMENT MECHANIC documented in this encounterUniversity Hospitals Cleveland Medical Center08-15-2022 History of Present illness Narrative* [...] pain. Yann French MD documented in this encounterUniversity Hospitals Cleveland Medical Center07-07-2022 Miscellaneous Notes* Telephone Encounter - [...] you, Donita Gonzales APRN.SATISH documented in this encounterUniversity Hospitals Cleveland Medical Center07-06-2022 History of Present illness Narrative* [...] Stage 3a Follows with kidney specialist through [facility]. Was going every 3 months but is [...] SPEC WHEN PFRMD 12/05/2013 Colonoscopy done in [facility] FLX W/REMOVAL LESION BY HOT BX FORCEPS [...] 585.3, ICD10: N18.31 Continue to follow with c2 tactical analysis technician at routine intervals. - COMP METABOLIC PANEL [...] agreeable to treatment plan. Donita Gonzales APRN.CNP [address] [place] [address] documented in this encounterCincinnati Children[facility] Centeraludelaware [facility] for [facility] ill note* Diagnosis Essential hypertension- Primary Unspecified essential hypertension Bilateral leg edema Edema Hypothyroidism, unspecified type Vitamin D deficiency Unspecified vitamin D deficiency Stage 3a chronic kidney disease (HCC) Dyslipidemia Other and unspecified hyperlipidemia Other iron deficiency anemia Screening for diabetes mellitus documented in this encounter [facility] note* Diagnosis Bilateral leg edema Edema Hypothyroidism, unspecified type documented in this encounter [facility] note* Diagnosis Acute left flank pain- Primary Abdominal pain, unspecified site Urinary frequency documented in this encounter [facility] note* Diagnosis Essential hypertension- Primary Unspecified essential hypertension Gastroesophageal reflux disease, unspecified whether esophagitis present documented in this encounter [facility] note* Diagnosis COVID- Primary documented in this encounter [facility] note* Diagnosis Essential hypertension- Primary Unspecified essential hypertension Gastroesophageal reflux disease, unspecified whether esophagitis present Bilateral leg edema Edema Hypothyroidism, unspecified type Vitamin D deficiency Unspecified vitamin D deficiency Stage 3a chronic kidney disease (HCC) Dyslipidemia Other and unspecified hyperlipidemia Other iron deficiency anemia documented in this encounter [facility] note* Diagnosis Essential hypertension Unspecified essential hypertension documented in this encounter [facility] note* Diagnosis Bilateral leg edema Edema documented in this encounter [facility] note* Diagnosis Lumbar radiculopathy- Primary Thoracic or lumbosacral neuritis or radiculitis, unspecified Chronic midline low back pain with bilateral sciatica documented in this encounter [facility] note* Diagnosis Essential hypertension Unspecified essential hypertension documented in this encounter [facility] note* Diagnosis Essential hypertension- Primary Unspecified essential hypertension documented in this encounter [facility] note* Diagnosis Bilateral leg edema Edema documented in this encounter [facility] note* Diagnosis Essential hypertension- Primary Unspecified essential hypertension Hypothyroidism, unspecified type Bilateral leg edema Edema Lumbar radiculopathy Thoracic or lumbosacral neuritis or radiculitis, unspecified Other iron deficiency anemia Dyslipidemia Other and unspecified hyperlipidemia documented in this encounter [facility] note* Diagnosis Hypothyroidism, unspecified type documented in this encounter [facility] noteNo assessment information availableWJ.W. Ruby [facility] Work Phone: Evaluation note* Diagnosis Essential hypertension- Primary Unspecified essential hypertension Dysuria Hypothyroidism, unspecified type documented in this encounter [facility] note* Diagnosis Dizziness- Primary Dizziness and giddiness Hypothyroidism, unspecified type Essential hypertension Unspecified essential hypertension documented in this encounter [facility] note* Diagnosis Low sodium levels- Primary Hyposmolality and/or hyponatremia Hypothyroidism, unspecified type Other iron deficiency anemia Dizziness Dizziness and giddiness documented in this encounter [facility] note* Diagnosis Procedure not carried out- Primary Procedure not carried out for other reasons documented in this encounter [facility] note* Diagnosis Hyponatremia- Primary Hyposmolality and/or hyponatremia Anemia, unspecified type Hypothyroidism, unspecified type Dizziness Dizziness and giddiness Essential hypertension Unspecified essential hypertension Fatigue, unspecified type Shakiness Abnormal involuntary movements documented in this encounter [facility] note* Diagnosis Low sodium levels- Primary Hyposmolality and/or hyponatremia documented in this encounter [facility] note* Diagnosis Dizziness- Primary Dizziness and giddiness Hypothyroidism, unspecified type Essential hypertension Unspecified essential hypertension CHECO (generalized anxiety disorder) Generalized anxiety disorder Hyponatremia Hyposmolality and/or hyponatremia documented in this encounter [facility] note* Diagnosis Leukocytosis, unspecified type- Primary documented in this encounter [facility] note* Diagnosis Dizziness- Primary Dizziness and giddiness documented in this encounter [facility] note* Diagnosis Leukocytosis, unspecified type- Primary documented in this encounter [facility] note* Diagnosis Hyponatremia- Primary Hyposmolality and/or hyponatremia documented in this encounter [facility] note* Diagnosis Leukocytosis, unspecified type- Primary documented in this encounter [facility] note* Diagnosis Essential hypertension- Primary Unspecified essential hypertension Hyponatremia Hyposmolality and/or hyponatremia Hypothyroidism, unspecified type Other iron deficiency anemia Dyslipidemia Other and unspecified hyperlipidemia documented in this encounter [facility] note* Diagnosis CHECO (generalized anxiety disorder) Generalized anxiety disorder documented in this encounter [facility] note* Diagnosis Essential hypertension- Primary Unspecified essential hypertension Stage 3a chronic kidney disease (HCC) Hyponatremia Hyposmolality and/or hyponatremia Hypothyroidism, unspecified type documented in this encounter [facility] note* Diagnosis Acute cough- Primary URI, acute Acute upper respiratory infections of unspecified site documented in this encounter [facility] note* Diagnosis Hyponatremia- Primary Hyposmolality and/or hyponatremia Hypertension, essential Unspecified essential hypertension Palpitation Palpitations Hypothyroidism, unspecified type Iatrogenic hyperthyroidism 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 or storm documented in this encounter [facility] note* Diagnosis SVT (supraventricular tachycardia) (HCC)- Primary Other specified cardiac dysrhythmias Palpitations Essential hypertension Unspecified essential hypertension Hyperlipidemia, mixed Mixed hyperlipidemia Hypertension, essential Unspecified essential hypertension Palpitation Palpitations documented in this encounter [facility] note* Diagnosis Hypothyroidism, unspecified type- Primary documented in this encounter [facility] note* Diagnosis Acute cough documented in this encounter [facility] note* Diagnosis Lumbar radiculopathy Thoracic or lumbosacral neuritis or radiculitis, unspecified Chronic midline low back pain with bilateral sciatica documented in this encounter [facility] note* Diagnosis Hypothyroidism, unspecified type- Primary documented in this encounter [facility] note* Diagnosis Hypothyroidism, unspecified type- Primary Hypertension, essential Unspecified essential hypertension Stage 3a chronic kidney disease (HCC) Other iron deficiency anemia Dyslipidemia Other and unspecified hyperlipidemia Vitamin D deficiency Unspecified vitamin D deficiency Fatigue, unspecified type Essential hypertension Unspecified essential hypertension documented in this encounter [facility] note* Diagnosis Hypothyroidism, unspecified type documented in this encounter [facility] note* Diagnosis Hypertension, essential Unspecified essential hypertension documented in this encounter [facility] note* Diagnosis Hypertension, essential- Primary Unspecified essential hypertension documented in this encounter [facility] note* Diagnosis Hypertension, essential- Primary Unspecified essential hypertension Stage 3a chronic kidney disease (HCC) Hypothyroidism, unspecified type Fatigue, unspecified type Dyslipidemia Other and unspecified hyperlipidemia Hyponatremia Hyposmolality and/or hyponatremia documented in this encounter [facility] note* Diagnosis Labile blood pressure- Primary Elevated blood pressure reading without diagnosis of hypertension Hypertension, essential Unspecified essential hypertension Hyponatremia Hyposmolality and/or hyponatremia Fatigue, unspecified type documented in this encounter [facility] for referral (narrative)* Outpatient Procedure (Routine) - Pending Review Specialty Diagnoses / Procedures Referred By Elsy t Referred To [facility] Diagnoses Gastroesophageal reflux disease, unspecified whether esophagitis present Essential hypertension Procedures ECG COMPLETE ECG ROUTINE ECG W/LEAST 12 LDS W/I&R Sergei Renner, FERNANDEZ.FOUNDRY EQUIPMENT MECHANIC [address] [place] [address] [facility] [place] [address] [place] [address] Referral ID Status Reason Start Date Expiration Date Visits Requested Visits Authorized [id number] Pending Review Auto-Generat ed Referral 2 07/08/2023 1 1 * Outpatient Procedure (Routine) - Pending Review Specialty Diagnoses / Procedures Referred By Contac t Referred To Contact [facility] [place] Diagnoses Gastroesophageal reflux disease, unspecified whether esophagitis present Essential hypertension Procedures US CAROTID ARTERIES DOE VAS LAB DUPLEX SCAN EXTRACRANIAL ART COMPL BI STUDY Sergei Renner, LORRY WEIGHER.FOUNDRY EQUIPMENT MECHANIC [address] [place] [address] [facility] [place] [address] [place] [id number] Referral ID Status Reason Start Date Expiration Date Visits Requested Visits Authorized [id number] Pending Review Auto-Generat ed Referral 2 07/08/2023 1 1 * Outpatient Procedure (Routine) - Authorized Specialty Diagnoses / Procedures Referred By Contac t Referred To Contact [facility] Diagnoses Gastroesophageal reflux disease, unspecified whether esophagitis present Essential hypertension Procedures ECHO ECHO TTHRC R-T 2D W/WOM-MODE COMPL SPEC&COLR D Sergei Renner, FERNANDEZ.FOUNDRY EQUIPMENT MECHANIC [address] [place] [address] [id number] [place] [address] Referral ID Status Reason Start Date Expiration Date Visits Requested Visits Authorized [id number] Authorized Auto-Generat ed Referral 2 07/08/2023 1 1 [facility] for referral (narrative)* Outpatient Procedure (Routine) - Pending Review Specialty Diagnoses / Procedures Referred By Contac t Referred To Contact [facility] [place] Diagnoses Dizziness Procedures US CAROTID ARTERIES DOE VAS LAB DUPLEX SCAN EXTRACRANIAL ART COMPL BI STUDY Donita Estes, LORRY WEIGHER.FOUNDRY EQUIPMENT MECHANIC [address] [place] [address] [facility] [place] [address] [place] [address] Referral ID Status Reason Start Date Expiration Date Visits Requested Visits Authorized [id number] Pending Review Auto-Generat ed Referral 07/20/2024 1 1 [facility] for referral (narrative)* Diagnostic Procedure Only (Routine) - Closed Specialty Diagnoses / Procedures Referred By Contac t Referred To Contact XR IMAGING Diagnoses Lumbar radiculopathy Chronic midline low back pain with bilateral sciatica Procedures XR LUMBAR GENERAL 3V AP/LAT/L5-S1 RADEX SPINE LUMBOSACRAL 2/3 VIEWS Sreekanth Cortez, DO [address] [place] [address] [address] [facility] Referral ID Status Reason Start Date Expiration Date V isits Requested Visits Authorized [id number] Closed Auto-Generate d Referral 12/25/2022 01/24/2024 1 1 [facility] for visit Narrative* Diagnostic Procedure Only (Routine) - Closed Specialty Diagnoses / Procedures Referred By Contac t Referred To Contact XR IMAGING Diagnoses Lumbar radiculopathy Chronic midline low back pain with bilateral sciatica Procedures XR LUMBAR GENERAL 3V AP/LAT/L5-S1 RADEX SPINE LUMBOSACRAL 2/3 VIEWS Sreekanth Cortez, DO [address] [place] [address] [place] [address] Referral ID Status Reason Start Date Expiration Date V isits Requested Visits Authorized [id number] Closed Auto-Generate d Referral 12/25/2022 01/24/2024 1 1 [facility] Summary Purpose Family History No [...] Yes March 20, 2023 5:52pm Power of Lead Refiner Yes March 20 5:52pm Name of Medical Power of Lead Refiner Uli Tariqr, hus band March 20, 2023 5:52pm Advance Directive Response Recorded Date/ Time Name of Medical Power of Lead Refiner Uli Tariqr, hus band March 20, 2023 4:52pm Name of Medical Power of Lead Refiner spouse June 29, 2023 11:08am Advance Directives Yes September 5:49am Living Will Yes June 29 11:08am Power of Lead Refiner Yes June 29, 2023 11:08am Reason for Referral Specialty Diagnoses / Procedures Referred By Contac t Referred To Contact [facility] Diagnoses Lumbar radiculopathy Chronic midline low back pain with bilateral sciatica Procedures CONSULT TO PHYSICAL THERAPY PHYSICAL THERAPY EVALUATION HIGH COMPLEX 45 MINS Sreekanth Cortez L, DO [address] [place] [address] [facility] [place] [address] [place] [address] Referral ID Status Reason Start Date Expiration Date Visits Requested Visits Authorized [id number] Pending Review Auto-Generat ed Referral 12/25/2022 12/25/2023 1 1 Specialty Diagnoses / Procedures Referred By Contac t Referred To Contact XR IMAGING Diagnoses Lumbar radiculopathy Chronic midline low back pain with bilateral sciatica Procedures XR LUMBAR GENERAL 3V AP/LAT/L5-S1 RADEX SPINE LUMBOSACRAL 2/3 VIEWS Sreekanth Cortez L, DO [address] [place] [address] Xr Imaging Referral ID Status Reason Start Date Expiration Date V isits Requested Visits Authorized [id number] Closed Auto-Generate d Referral 12/25/2022 01/24/2024 1 1 Specialty Diagnoses / Procedures Referred By Contac t Referred To Contact Diagnoses Hypothyroidism, unspecified type Sergei Renner, LORRY WEIGHER.[employer]OUN[employer] EQUIPMENT MECHANIC [address] [place] [address] Referral ID Status Reason Start Date Expiration Date V isits Requested Visits Authorized [id number] Authorized 06/13/2024 07/13/2025 1 1 Chief Complaint and Reason for Visit Chief Complaint HYPERTENSION Chief Complaint HYPERTENSION DIZZINESS Additional Source Comments INFORMATION SOURCE (unrecogn ized section and content) DATE CREATED AUTHOR 02/16/2018 [facility] DATE CREATED AUTHOR AUTHOR'S ORGANIZ ATION 09/02/2018 [facility] DATE CREATED AUTHOR AUTHOR'S ORGANIZ ATION 07/10/2023 [facility] DATE CREATED AUTHOR AUTHOR'S ORGANIZ ATION 08/15/2023 [facility] DATE CREATED AUTHOR AUTHOR'S ORGANIZ ATION 02/20/2025 [facility] Source Comments (unrecognize d section and content) In the event this informatio n is protected by the Federal Confidentiality of Alcohol and Drug Abuse Patient Records regulations: The Federal rules restrict any use of the information to criminally investigate or prosecute any alcohol or drug abuse patient.[facility] the event this information is protected by the Federal Confidentiality of Alcohol and Drug Abuse Patient Records regulations: The Federal rules restrict any use of the information to criminally investigate or prosecute any alcohol or drug abuse patient.[facility] CenterIn the event this information is protected by the Federal Confidentiality of Alcohol and Drug Abuse Patient Records regulations: The Federal rules restrict any use of the information to criminally investigate or prosecute any alcohol or drug abuse patient.[facility] CenterIn the event this information is protected by the Federal Confidentiality of Alcohol and Drug Abuse Patient Records regulations: The Federal rules restrict any use of the information to criminally investigate or prosecute any alcohol or drug abuse patient.[facility] CenterIn the event this information is protected by the Federal Confidentiality of Alcohol and Drug Abuse Patient Records regulations: The Federal rules restrict any use of the information to criminally investigate or prosecute any alcohol or drug abuse patient.[facility] CenterIn the event this information is protected by the Federal Confidentiality of Alcohol and Drug Abuse Patient Records regulations: The Federal rules restrict any use of the information to criminally investigate or prosecute any alcohol or drug abuse patient.[facility] CenterIn the event this information is protected by the Federal Confidentiality of Alcohol and Drug Abuse Patient Records regulations: The Federal rules restrict any use of the information to criminally investigate or prosecute any alcohol or drug abuse patient.[facility] CenterIn the event this information is protected by the Federal Confidentiality of Alcohol and Drug Abuse Patient Records regulations: The Federal rules restrict any use of the information to criminally investigate or prosecute any alcohol or drug abuse patient.[facility] CenterIn the event this information is protected by the Federal Confidentiality of Alcohol and Drug Abuse Patient Records regulations: The Federal rules restrict any use of the information to criminally investigate or prosecute any alcohol or drug abuse patient.[facility] CenterIn the event this information is protected by the Federal Confidentiality of Alcohol and Drug Abuse Patient Records regulations: The Federal rules restrict any use of the information to criminally investigate or prosecute any alcohol or drug abuse patient.[facility] CenterIn the event this information is protected by the Federal Confidentiality of Alcohol and Drug Abuse Patient Records regulations: The Federal rules restrict any use of the information to criminally investigate or prosecute any alcohol or drug abuse patient.[facility] CenterIn the event this information is protected by the Federal Confidentiality of Alcohol and Drug Abuse Patient Records regulations: The Federal rules restrict any use of the information to criminally investigate or prosecute any alcohol or drug abuse patient.[facility] CenterIn the event this information is protected by the Federal Confidentiality of Alcohol and Drug Abuse Patient Records regulations: The Federal rules restrict any use of the information to criminally investigate or prosecute any alcohol or drug abuse patient.[facility] CenterIn the event this information is protected by the Federal Confidentiality of Alcohol and Drug Abuse Patient Records regulations: The Federal rules restrict any use of the information to criminally investigate or prosecute any alcohol or drug abuse patient.[facility] CenterIn the event this information is protected by the Federal Confidentiality of Alcohol and Drug Abuse Patient Records regulations: The Federal rules restrict any use of the information to criminally investigate or prosecute any alcohol or drug abuse patient.[facility] CenterIn the event this information is protected by the Federal Confidentiality of Alcohol and Drug Abuse Patient Records regulations: The Federal rules restrict any use of the information to criminally investigate or prosecute any alcohol or drug abuse patient.[facility] CenterIn the event this information is protected by the Federal Confidentiality of Alcohol and Drug Abuse Patient Records regulations: The Federal rules restrict any use of the information to criminally investigate or prosecute any alcohol or drug abuse patient.[facility] CenterIn the event this information is protected by the Federal Confidentiality of Alcohol and Drug Abuse Patient Records regulations: The Federal rules restrict any use of the information to criminally investigate or prosecute any alcohol or drug abuse patient.[facility] CenterIn the event this information is protected by the Federal Confidentiality of Alcohol and Drug Abuse Patient Records regulations: The Federal rules restrict any use of the information to criminally investigate or prosecute any alcohol or drug abuse patient.[facility] CenterIn the event this information is protected by the Federal Confidentiality of Alcohol and Drug Abuse Patient Records regulations: The Federal rules restrict any use of the information to criminally investigate or prosecute any alcohol or drug abuse patient.[facility] CenterIn the event this information is protected by the Federal Confidentiality of Alcohol and Drug Abuse Patient Records regulations: The Federal rules restrict any use of the information to criminally investigate or prosecute any alcohol or drug abuse patient.[facility] CenterIn the event this information is protected by the Federal Confidentiality of Alcohol and Drug Abuse Patient Records regulations: The Federal rules restrict any use of the information to criminally investigate or prosecute any alcohol or drug abuse patient.[facility] CenterIn the event this information is protected by the Federal Confidentiality of Alcohol and Drug Abuse Patient Records regulations: The Federal rules restrict any use of the information to criminally investigate or prosecute any alcohol or drug abuse patient.[facility] CenterIn the event this information is protected by the Federal Confidentiality of Alcohol and Drug Abuse Patient Records regulations: The Federal rules restrict any use of the information to criminally investigate or prosecute any alcohol or drug abuse patient.[facility] CenterIn the event this information is protected by the Federal Confidentiality of Alcohol and Drug Abuse Patient Records regulations: The Federal rules restrict any use of the information to criminally investigate or prosecute any alcohol or drug abuse patient.[facility] CenterIn the event this information is protected by the Federal Confidentiality of Alcohol and Drug Abuse Patient Records regulations: The Federal rules restrict any use of the information to criminally investigate or prosecute any alcohol or drug abuse patient.[facility] CenterIn the event this information is protected by the Federal Confidentiality of Alcohol and Drug Abuse Patient Records regulations: The Federal rules restrict any use of the information to criminally investigate or prosecute any alcohol or drug abuse patient.[facility] CenterIn the event this information is protected by the Federal Confidentiality of Alcohol and Drug Abuse Patient Records regulations: The Federal rules restrict any use of the information to criminally investigate or prosecute any alcohol or drug abuse patient.[facility] CenterIn the event this information is protected by the Federal Confidentiality of Alcohol and Drug Abuse Patient Records regulations: The Federal rules restrict any use of the information to criminally investigate or prosecute any alcohol or drug abuse patient.[facility] CenterIn the event this information is protected by the Federal Confidentiality of Alcohol and Drug Abuse Patient Records regulations: The Federal rules restrict any use of the information to criminally investigate or prosecute any alcohol or drug abuse patient.[facility] CenterIn the event this information is protected by the Federal Confidentiality of Alcohol and Drug Abuse Patient Records regulations: The Federal rules restrict any use of the information to criminally investigate or prosecute any alcohol or drug abuse patient.[facility] CenterIn the event this information is protected by the Federal Confidentiality of Alcohol and Drug Abuse Patient Records regulations: The Federal rules restrict any use of the information to criminally investigate or prosecute any alcohol or drug abuse patient.[facility] CenterIn the event this information is protected by the Federal Confidentiality of Alcohol and Drug Abuse Patient Records regulations: The Federal rules restrict any use of the information to criminally investigate or prosecute any alcohol or drug abuse patient.[facility] CenterIn the event this information is protected by the Federal Confidentiality of Alcohol and Drug Abuse Patient Records regulations: The Federal rules restrict any use of the information to criminally investigate or prosecute any alcohol or drug abuse patient.[facility] CenterIn the event this information is protected by the Federal Confidentiality of Alcohol and Drug Abuse Patient Records regulations: The Federal rules restrict any use of the information to criminally investigate or prosecute any alcohol or drug abuse patient.[facility] CenterIn the event this information is protected by the Federal Confidentiality of Alcohol and Drug Abuse Patient Records regulations: The Federal rules restrict any use of the information to criminally investigate or prosecute any alcohol or drug abuse patient.[facility] CenterIn the event this information is [...] or prosecute any alcohol or drug abuse patient.[facility] CenterIn the event this information is protected by the Federal Confidentiality of Alcohol and Drug Abuse Patient Records regulations: The Federal rules restrict any use of the information to criminally investigate or prosecute any alcohol or drug abuse patient.[facility] CenterIn the event this information is protected by the Federal Confidentiality of Alcohol and Drug Abuse Patient Records regulations: The Federal rules restrict any use of the information to criminally investigate or prosecute any alcohol or drug abuse patient.[facility] CenterIn the event this information is protected by the Federal Confidentiality of Alcohol and Drug Abuse Patient Records regulations: The Federal rules restrict any use of the information to criminally investigate or prosecute any alcohol or drug abuse patient.[facility] CenterIn the event this information is protected by the Federal Confidentiality of Alcohol and Drug Abuse Patient Records regulations: The Federal rules restrict any use of the information to criminally investigate or prosecute any alcohol or drug abuse patient.[facility] CenterIn the event this information is protected by the Federal Confidentiality of Alcohol and Drug Abuse Patient Records regulations: The Federal rules restrict any use of the information to criminally investigate or prosecute any alcohol or drug abuse patient.[facility] CenterIn the event this information is protected by the Federal Confidentiality of Alcohol and Drug Abuse Patient Records regulations: The Federal rules restrict any use of the information to criminally investigate or prosecute any alcohol or drug abuse patient.[facility] CenterIn the event this information is protected by the Federal Confidentiality of Alcohol and Drug Abuse Patient Records regulations: The Federal rules restrict any use of the information to criminally investigate or prosecute any alcohol or drug abuse patient.[facility] CenterIn the event this information is protected by the Federal Confidentiality of Alcohol and Drug Abuse Patient Records regulations: The Federal rules restrict any use of the information to criminally investigate or prosecute any alcohol or drug abuse patient.[facility] CenterIn the event this information is protected by the Federal Confidentiality of Alcohol and Drug Abuse Patient Records regulations: The Federal rules restrict any use of the information to criminally investigate or prosecute any alcohol or drug abuse patient.[facility] CenterIn the event this information is protected by the Federal Confidentiality of Alcohol and Drug Abuse Patient Records regulations: The Federal rules restrict any use of the information to criminally investigate or prosecute any alcohol or drug abuse patient.[facility] CenterIn the event this information is protected by the Federal Confidentiality of Alcohol and Drug Abuse Patient Records regulations: The Federal rules restrict any use of the information to criminally investigate or prosecute any alcohol or drug abuse patient.[facility] CenterIn the event this information is protected by the Federal Confidentiality of Alcohol and Drug Abuse Patient Records regulations: The Federal rules restrict any use of the information to criminally investigate or prosecute any alcohol or drug abuse patient.[facility] CenterIn the event this information is protected by the Federal Confidentiality of Alcohol and Drug Abuse Patient Records regulations: The Federal rules restrict any use of the information to criminally investigate or prosecute any alcohol or drug abuse patient.[facility] CenterIn the event this information is protected by the Federal Confidentiality of Alcohol and Drug Abuse Patient Records regulations: The Federal rules restrict any use of the information to criminally investigate or prosecute any alcohol or drug abuse patient.[facility] CenterIn the event this information is protected by the Federal Confidentiality of Alcohol and Drug Abuse Patient Records regulations: The Federal rules restrict any use of the information to criminally investigate or prosecute any alcohol or drug abuse patient.[facility] CenterIn the event this information is protected by the Federal Confidentiality of Alcohol and Drug Abuse Patient Records regulations: The Federal rules restrict any use of the information to criminally investigate or prosecute any alcohol or drug abuse patient.[facility] CenterIn the event this information is protected by the Federal Confidentiality of Alcohol and Drug Abuse Patient Records regulations: The Federal rules restrict any use of the information to criminally investigate or prosecute any alcohol or drug abuse patient.[facility] CenterIn the event this information is protected by the Federal Confidentiality of Alcohol and Drug Abuse Patient Records regulations: The Federal rules restrict any use of the information to criminally investigate or prosecute any alcohol or drug abuse patient.[facility] CenterIn the event this information is protected by the Federal Confidentiality of Alcohol and Drug Abuse Patient Records regulations: The Federal rules restrict any use of the information to criminally investigate or prosecute any alcohol or drug abuse patient.[facility] CenterIn the event this information is protected by the Federal Confidentiality of Alcohol and Drug Abuse Patient Records regulations: The Federal rules restrict any use of the information to criminally investigate or prosecute any alcohol or drug abuse patient.[facility] CenterIn the event this information is protected by the Federal Confidentiality of Alcohol and Drug Abuse Patient Records regulations: The Federal rules restrict any use of the information to criminally investigate or prosecute any alcohol or drug abuse patient.[facility] CenterIn the event this information is protected by the Federal Confidentiality of Alcohol and Drug Abuse Patient Records regulations: The Federal rules restrict any use of the information to criminally investigate or prosecute any alcohol or drug abuse patient.[facility] CenterIn the event this information is protected by the Federal Confidentiality of Alcohol and Drug Abuse Patient Records regulations: The Federal rules restrict any use of the information to criminally investigate or prosecute any alcohol or drug abuse patient.[facility] CenterIn the event this information is protected by the Federal Confidentiality of Alcohol and Drug Abuse Patient Records regulations: The Federal rules restrict any use of the information to criminally investigate or prosecute any alcohol or drug abuse patient.[facility] Reason for Visit (unrecogniz ed section and content) Reason Comments Physical Specialty Diagnoses / Procedures Referred By Contac t Referred To Contact Family Practice / FAMILY MEDICINE Diagnoses Physical Procedures OFFICE/OUTPATIENT ESTABLISHED MOD MDM 30-39 MIN 4C MD Janet Calderon Alyson, FERNANDEZ.FOUNDRY EQUIPMENT MECHANIC [address] [place] [address] Referral ID Status Reason Start Date Expiration Date Visits Re quested Visits Authorized [id number] Closed 02/25/2022 08/22/2022 1 1 Reason Comments [...] lab results Reason Comments Clearance Form from [facility] Reason Comments Patient Question Reason Comments [...] Care Teams (unrecognized sec tion and content) Director Of Casework Relationship Specialty Start Date End Date Sreekanth Cortez, DO [address] [facility] [place] [address] PCP - General Family Practice 02/28/16 Director Of Casework Relationship Specialty Start Date End Date Sreekanth Cortez, DO [address] [facility] [place] [address] PCP - General Family Practice 02/28/16 Director Of Casework Relationship Specialty Start Date End Date Sreekanth Cortez, DO [address] [facility] [place] [address] PCP - General Family Practice 02/28/16 Director Of Casework Relationship Specialty Start Date End Date Sreekanth Cortez, DO [address] [facility] [place] [address] PCP - General Family Medicine 02/28/16 Director Of Casework Relationship Specialty Start Date End Date Sreekanth Cortez, DO [address] [facility] [place] [address] PCP - General Family Medicine 02/28/16 Director Of Casework Relationship Specialty Start Date End Date Sreekanth Cortez DO [address] [place] [address] PCP - General Family Medicine 02/28/16 Director Of Casework Relationship Specialty Start Date End Date Sreekanth Cortez DO [address] [place] [address] PCP - General Family Medicine 02/28/16 Director Of Casework Relationship Specialty Start Date End Date Sreekanth Cortez DO [address] [place] [address] PCP - General Family Medicine 02/28/16 Director Of Casework Relationship Specialty Start Date End Date Sreekanth Cortez DO [address] [place] [address] PCP - General Family Medicine 02/28/16 Director Of Casework Relationship Specialty Start Date End Date Sreekanth Cortez DO [address] [place] [address] PCP - General Family Medicine 02/28/16 Director Of Casework Relationship Specialty Start Date End Date Sreekanth Cortez DO [address] [place] [address] PCP - General Family Medicine 02/28/16 Director Of Casework Relationship Specialty Start Date End Date Sreekanth Cortez DO [address] [place] [address] PCP - General Family Medicine 02/28/16 Director Of Casework Relationship Specialty Start Date End Date Sreekanth Cortez DO [address] [place] [address] PCP - General Family Medicine 02/28/16 Director Of Casework Relationship Specialty Start Date End Date Sreekanth Cortez DO [address] [place] [address] PCP - General Family Medicine 02/28/16 Team Status: Active Member Role Status Dates Dr. Sreekanth Cortez DO Family Provider Active Dr. Sreekanth Cortez DO Primary Care Provider Active Team Status: Inactive Member Role Status Dates Dr. Sreekanth Cortez , DO Primary Care Provider Active Dr. Frederick Carrasco , DO Emergency Provider Active Director Of Casework Relationship Specialty Start Date End Date Sreekanth Cortez DO [address] [place] [address] PCP - General Family Medicine 02/28/16 Director Of Casework Relationship Specialty Start Date End Date Sreekanth Cortez DO [address] [place] [address] PCP - General Family Medicine 02/28/16 Director Of Casework Relationship Specialty Start Date End Date Sreekanth Cortez DO [address] [place] [address] PCP - General Family Medicine 02/28/16 Team Status: Inactive Member Role Status Dates Dr. Sreekanth Cortez DO Primary Care Provider Active Dr. Frederick Carrasco , DO Attending Provider, Emergency P kaylah Active Team Status: Inactive Member Role Status Dates Dr. Sreekanth Cortez DO Primary Care Provider Active Dr. Josselyn Adhikari , DO Emergency Provider Active Director Of Casework Relationship Specialty Start Date End Date Sreekanth Cortez DO [address] [place] [address] PCP - General Family Medicine 02/28/16 Director Of Casework Relationship Specialty Start Date End Date Sreekanth Cortez DO [address] [place] [address] PCP - General Family Medicine 02/28/16 Director Of Casework Relationship Specialty Start Date End Date Sreekanth Cortez DO [address] [place] [address] PCP - General Family Medicine 02/28/16 Director Of Casework Relationship Specialty Start Date End Date Sreekanth Cortez DO [address] [place] [address] PCP - General Family Medicine 02/28/16 Director Of Casework Relationship Specialty Start Date End Date Sreekanth Cortez DO [address] [place] [address] PCP - General Family Medicine 02/28/16 Director Of Casework Relationship Specialty Start Date End Date Sreekanth Cortez DO [address] [facility] [place] [address] PCP - General Family Medicine 02/28/16 Director Of Casework Relationship Specialty Start Date End Date Sreekanth Cortez DO [address] [facility] [place] [address] PCP - General Family Medicine 02/28/16 Director Of Casework Relationship Specialty Start Date End Date Sreekanth Cortze DO [address] [place] [address] PCP - General Family Medicine 02/28/16 Director Of Casework Relationship Specialty Start Date End Date Sreekanth Cortez DO [address] [place] [address] PCP - General Family Medicine 02/28/16 Director Of Casework Relationship Specialty Start Date End Date Sreekanth Cortez DO [address] [place] [address] PCP - General Family Medicine 02/28/16 Director Of Casework Relationship Specialty Start Date End Date Sreekanth Cortez DO [address] [place] [address] PCP - General Family Medicine 02/28/16 Director Of Casework Relationship Specialty Start Date End Date Sreekanth Cortez DO [address] [place] [address] PCP - General Family Medicine 02/28/16 Director Of Casework Relationship Specialty Start Date End Date Sreekanth Cortez DO [address] [facility] [place] [address] PCP - General Family Medicine 02/28/16 Director Of Casework Relationship Specialty Start Date End Date Sreekanth Cortez DO [address] [place] [address] PCP - General Family Medicine 02/28/16 Director Of Casework Relationship Specialty Start Date End Date Sreekanth Cortez DO [address] [facility] [place] [address] PCP - General Family Medicine 02/28/16 Donita Estes, LORRY WEIGHER.FOUNDRY EQUIPMENT MECHANIC [address] [place] [address] City Council Member Family Medicine 07/30/24 Sergei Renner, FERNANDEZ.FOUNDRY EQUIPMENT MECHANIC [address] [place] [address] City Council Member Family Medicine 07/30/24 Director Of Casework Relationship Specialty Start Date End Date Sreekanth Cortez DO [address] [place] [address] PCP - General Family Medicine 02/28/16 Donita Estes, LORRY WEIGHER.FOUNDRY EQUIPMENT MECHANIC [address] [place] [address] City Council Member Family [facility] 07/30/24 ZurdoSergei, LORRY WEIGHER.FOUNDRY EQUIPMENT MECHANIC [address] [place] [address] City Council Member [facility] 07/30/24 Director Of Casework Relationship Specialty Start Date End Date Sreekanth Cortez DO [address] [place] [address] PCP - General Family Medicine 02/28/16 ZurdoSergei, LORRY WEIGHER.FOUNDRY EQUIPMENT MECHANIC [address] [place] [address] City Council Member [facility] 07/30/24 Director Of Casework Relationship Specialty Start Date End Date Sreekanth Cortez DO [address] [place] [address] PCP - General Family Medicine 02/28/16 ZurdoSergei, LORRY WEIGHER.FOUNDRY EQUIPMENT MECHANIC [address] [place] [address] [facility]24 Director Of Casework Relationship Specialty Start Date End Date Sreekanth Cortez DO [address] [place] [address] PCP - General Family Medicine 02/28/16 ZurdoSergei, LORRY WEIGHER.FOUNDRY EQUIPMENT MECHANIC [address] [place] [address] City Council Member [facility] 07/30/24 Director Of Casework Relationship Specialty Start Date End Date Sreekanth Cortez DO [address] [place] [address] PCP - General Family Medicine 02/28/16 Sergei Renner, LORRY WEIGHER.FOUNDRY EQUIPMENT MECHANIC [address] [place] [address] City Council Member [facility] 07/30/24 Director Of Casework Relationship Specialty Start Date End Date Sreekanth Cortez DO [address] [place] [address] PCP - General Family Medicine 02/28/16 ZurdoSergei, LORRY WEIGHER.FOUNDRY EQUIPMENT MECHANIC [address] [place] [address] City Council Member [facility] 07/30/24 Margoth Chavez, LORRY WEIGHER.FOUNDRY EQUIPMENT MECHANIC [address] [place] [address] [facility] 02/05/25 Director Of Casework Relationship Specialty Start Date End Date Sreekanth Cortez DO [address] [place] [address] PCP - General Family Medicine 02/28/16 Sergei Renner, LORRY WEIGHER.FOUNDRY EQUIPMENT MECHANIC [address] [place] [address] City Council Member [facility] 07/30/24 Margoth Chavez, LORRY WEIGHER.FOUNDRY EQUIPMENT MECHANIC [address] [place] [address] [facility] 02/05/25 Goals (unrecognized section and content) Goals [...] BE BASED ON THE PRIMARY CLINICAL RECORDS. [employer] [facility]. provides no warranty or guarantee of the accuracy or completeness of information in this document.
[2025-02-22 07:20] LABS: Anion Gap 12 (5-15); BUN 8 mg/dL (4-19); BUN/Creat Ratio 9.8 RATIO (10-20); Calcium,Total 9.0 mg/dL (7.6-11.0); Carbon Dioxide 22.8 mmol/L (21.0-32.0); Chloride 100 mmol/L (98-108); Estimated Creatinine Clearance 46.32 ml/min (50-250); Glucose 114 mg/dL (70-99); Potassium 4.0 mmol/L (3.3-5.1); Pro- Brain NATRIURETIC PEPTIDE 210 pg/mL (<=1800); Troponin T High Sensitivity 12 ng/L (<=14)
== END 2025-02-22 08:04 | disposition home or self-care (01) ==
PROVIDERS: Emergency Provider Surgery; PCP Student in an Organized Health Care Education/Training Program; Visit Provider Surgery
DX: I16.0 Hypertensive urgency (principal); R06.02 Shortness of breath; I10 Essential (primary) hypertension; E03.9 Hypothyroidism, unspecified; H53.8 Other visual disturbances; R11.0 Nausea; Z79.890 Hormone replacement therapy; Z79.899 Other long term (current) drug therapy
CPT/HCPCS: 70450; 71046; 80048; 83880; 84484; 85025; 93005; 96374; 96375; 99284; A4216; J2405

== ENCOUNTER 2025-04-02 05:37 | Emergency (ER) | payer MEDICARE, SELFPAY ==
[2025-04-02 05:38] VITALS: BP 216/93; PULSE 72; RESP 18; TEMP 36.9; O2SAT 96; BMI 25.9
--- NOTE | 2025-04-02 05:54 | CT_ITS ---
PROCEDURE: BRAIN/HEAD WITHOUT CONTRAST 04/02/2025 REASON FOR EXAM: LIGHTHEADED WITH HTN TECHNIQUE: BRAIN/HEAD WITHOUT CONTRAST Coronal and Sagittal reconstruction series were provided. One or more dose reduction techniques were used (e.g., Automated exposure control, adjustment of the mA and/or kV according to patient size, use of iterative reconstruction technique. RADIATION DOSE SUMMARY: CTDlvol: 44.99 mGy DLP: 762.36 mGycm COMPARISON: 02/22/2025 FINDINGS: Brain: No acute hemorrhage midline shift or mass effect. Stable basal ganglia calcifications and remote basal ganglia infarcts. CSF Spaces: Mild generalized cerebral atrophy Sinuses/Mastoids: Clear at visualized levels Bones: No fracture or suspicious osseous lesion CT/Brain/Head without Contrast IMPRESSION: Age consistent changes, no acute findings, no interval change Reading Location: [id number]
--- NOTE | 2025-04-02 05:54 | EKG12_ITS ---
Test Reason : DYSRHYTHMIA Blood Pressure : */* mmHG Vent. Rate : 69 BPM Atrial Rate : 69 BPM P-R Int : 168 ms QRS Dur : 80 ms QT Int : 394 ms P-R-T Axes : 49 -8 46 degrees QTcB Int : 422 ms Normal sinus rhythm Minimal voltage criteria for LVH, may be normal variant ( R in aVL ) Nonspecific ST abnormality Abnormal ECG Confirmed by Umer Leal ([id number]), senior technical editor EVANGELIST CLARKE ([id number]) on 04/03/2025 11:38:53 AM Referred By: Confirmed By: Umer Leal
--- NOTE | 2025-04-02 05:54 | CT_ITS ---
PROCEDURE: BRAIN/HEAD WITHOUT CONTRAST 04/02/2025 REASON FOR EXAM: LIGHTHEADED WITH HTN TECHNIQUE: BRAIN/HEAD WITHOUT CONTRAST Coronal and Sagittal reconstruction series were provided. One or more dose reduction techniques were used (e.g., Automated exposure control, adjustment of the mA and/or kV according to patient size, use of iterative reconstruction technique. RADIATION DOSE SUMMARY: CTDlvol: 44.99 mGy DLP: 762.36 mGycm COMPARISON: 02/22/2025 FINDINGS: Brain: No acute hemorrhage midline shift or mass effect. Stable basal ganglia calcifications and remote basal ganglia infarcts. CSF Spaces: Mild generalized cerebral atrophy Sinuses/Mastoids: Clear at visualized levels Bones: No fracture or suspicious osseous lesion CT/Brain/Head without Contrast IMPRESSION: Age consistent changes, no acute findings, no interval change Reading Location: [id number]
--- NOTE | 2025-04-02 05:54 | EKG12_ITS ---
Test Reason : DYSRHYTHMIA Blood Pressure : */* mmHG Vent. Rate : 69 BPM Atrial Rate : 69 BPM P-R Int : 168 ms QRS Dur : 80 ms QT Int : 394 ms P-R-T Axes : 49 -8 46 degrees QTcB Int : 422 ms Normal sinus rhythm Minimal voltage criteria for LVH, may be normal variant ( R in aVL ) Nonspecific ST abnormality Abnormal ECG Confirmed by Umer Leal ([id number]), editorial cartoonist EVANGELIST CLARKE ([id number]) on 04/03/2025 11:38:53 AM Referred By: Confirmed By: Umer Leal
[2025-04-02 06:03] LABS: Hematocrit 36.6 % (37-47); Hemoglobin 12.9 g/dL (12.0-15.0); Immature Granulocytes Count 0.030 X10^3/uL (0.0-0.0); Mean Corp Hgb Conc 35.2 g/dL (32-36); Mean Corpuscular Volume 87.8 fL (81-99); Mean Platelet Vol. 9.4 fl (6.2-12.0); NRBC Flagged by Analyzer 0 % (0-5); Platelet Count 267 K/mm3 (150-450); RBC Distribution Width CV 12.0 % (11.6-14.6); RBC Distribution Width SD 38.6 fl (35.1-43.9); Red Blood Count 4.17 M/mm3 (4.2-5.4); White Blood Count 8.8 K/mm3 (4.4-11.0)
--- OUTSIDE RECORDS SUMMARY | 2025-04-02 06:05 | XMS RPT_ITS | CCD ---
Author Organization [facility] Care Team Providers Care Senior Education Specialist Name Role Phone Mercedes Marin Unavailable Unavailable PROVIDER, UNKNOWN Unavailable Unavailable PROVIDER, UNKNOWN Unavailable Unavailable JOE RIOS Unavailable Unavail able PROVIDER, UNKNOWN Unavailable Unavailable Sreekanth Cortez Unavailable Unavailable Sreekanth Cortez DO Primary Care Provider Sreekanth Cortez DO Primary Care Provider Sreekanth Cortez DO Primary Care Provider Sreekanth Cortez DO Primary Care Provider Sreekanth Cortez DO Primary Care Provider Franklyn PALM GATHERER.MATHS TUTORDonita Unavailable Zurdo PALM GATHERER.Sergei COVARRUBIAS Unavailable Scott PALM GATHERER.Margoth COVARRUBIAS Unavailable Dr. Sreekanth Cortez DO Primary Care Provider [phone] Dr. Devaughn Farmer DO Emergency Provider Provider Reynaldo TAYLOR Unavailable Unavailable Sreekanth Cortez Primary Care Unavailable Devaughn Farmer Attending Unavailabl e SREEKANTH CORTEZ Primary Care Unavailable JEREMIAH DEL ROSARIO Admitting Unavailable DELILAH FISHER Attending Unavailable SREEKANTH CORTEZ Primary Care Unavailable MARIBETH GRIFFITHS Attending Unavailable SREEKANTH CORTEZ Primary Care Unavailable SREEKANTH CORTEZ Attending Unavailable SREEKANTH CORTEZ Primary Care Unavailable SERGEI RENNER Referring Unavailable SREEKANTH CORTEZ Primary Care Unavailable SREEKANTH CORTEZ Primary Care Unavailable ZURDOSERGEI SANTOYO Referring Unavailable SREEKANTH CORTEZ Primary Care Unavailable SERGEI RENNER Attending Unavailable SREEKANTH CORTEZ Primary Care Unavailable SCOTT, MARGOTH MARCELLUS Referring Unavailable SREEKANTH CORTEZ Primary Care Unavailable MARILYN GUTIERREZ Attending Unavailable SREEKANTH CORTEZ Primary Care Unavailable MARGOTH CHAVEZ Attending Unavailable MARGOTH CHAVEZ Referring Unavailable SREEKANTH CORTEZ Primary Care Unavailable MARGOTH CHAVEZ Attending Unavailable SREEKANTH CORTEZ Primary Care Unavailable MARGOTH CHAVEZ Referring Unavailable SREEKANTH CORTEZ Primary Care Unavailable MARGOTH CHAVEZ Attending Unavailable SREEKANTH CORTEZ Primary Care Unavailable SREEKANTH CORTEZ Attending Unavailable SREEKANTH CORTEZ Primary Care Unavailable Allergies Allergy Classification Reported Allergen(s) Allergy Type Date of Onset Reaction(s) Facility (20 sources) Milk; Translations: [MILK CONTAINING PRODUCTS (DAIRY)] Drug Allergy 3 Cough [facility] (20 sources) Wheat gluten extract; Translations: [GLUTEN] Drug Allergy 3 Cough, GI Upset [facility] (7 sources) Latex; Translations: [LATEX] Drug Intolerance 5 Itching [facility] (1 source) Gluten Drug allergy (disorder) 5 [facility] (1 source) amLODIPine; Translations: [AMLODIPINE] Drug Allergy 5 [facility] Rep[facility] (1 source) Losartan; Translations: [LOSARTAN] Drug Allergy 5 [facility] Medications Current Medications Medication Drug Class(es) Dates Sig (Normalized) Sig (Original) amLODIPine 10 mg oral tablet (14 sources) Dihydropyridine Calcium Channel Fidel Start: 03-21-2025 End: 06-19-2025 take 1 tablet by mouth once daily amLODIPine (NORVASC) 10 mg tablet Take 1 tablet by mouth once daily. 30 tablet 2 03/21/2025 06/19/2025 Active Start: 02-26-2025 End: 03-28-2025 take 1 tablet by mouth once daily amLODIPine (NORVASC) 5 mg tablet Take 1 tablet by mouth once daily. 30 tablet 02/26/2025 03/21/2025 Discontinued Start: 06-28-2019 End: 07-08-2022 take 0.5 tablet by mouth once daily amLODIPine (NORVASC) 5 mg tablet Take 0.5 tablets by mouth once daily. 90 tablet 1 02/25/2022 07/08/2022 Discontinued Start: 10-06-2017 End: 03-20-2023 take 1 tablet by mouth once daily Amlodipine 5 MG tablet Discontinued 5 mg PO DAILY 30 0 October 06, 2017 1:00am March 20, 2023 5:51pm Comment on above: Take 0.5 tablets by mouth once daily. carvedilol 12.5 mg oral tablet (9 sources) alpha-Adrenergic Fidel, beta-Adrenergic Fidel Start: 03-21-2025 End: 06-19-2025 take 1 tablet by mouth twice daily carvedilol (COREG) 12.5 mg tablet Take 1 tablet by mouth two times a day. 60 tablet 2 03/21/2025 06/19/2025 Active Start: 2025 End: 03-21-2025 take 1 tablet by mouth twice daily at mealtime carvedilol (COREG) 6.25 mg tablet Take 1 tablet by mouth two times a day with meals. 180 tablet 1 2025 03/21/2025 Discontinued Start: 02-22-2025 End: 02-26-2025 take 1 tablet by mouth twice daily carvedilol (COREG) 25 mg tablet Take 25 mg by mouth two times a day. 02/22/2025 02/26/2025 Discontinued Start: 02-22-2025 End: 02-22-2025 take 1 tablet by mouth twice daily Carvedilol 12.5 mg tablet Discontinued 12.5 mg PO TWICE A DAY February 22, 2025 12:00am February 22, 2025 7:50am blood pressure Start: 02-05-2025 take 1 tablet by mike twice daily carvedilol (COREG) 12.5 mg tablet Indications: Hypertension, essential , Stage 3a chronic kidney disease (HCC) Take 1 tablet by mouth two times a day. For blood pressure 180 tablet 1 02/05/2025 Active cephalexin 500 mg oral capsule (5 sources) Cephalosporin Antibacterial Start: 03-31-2023 End: 04-05-2023 take 1 capsule by mouth four times daily cephALEXin (KEFLEX) 500 mg capsule Indications: Dysuria Take 1 capsule by mouth four times daily for 5 days. 20 capsule 0 03/31/2023 04/05/2023 Active Start: 03-20-2023 End: 02-22-2025 take 1 capsule by mouth every six hours Cephalexin 500 mg capsule Discontinued 500 mg PO EVERY 6 HOURS 12 0 March 20, 2023 12:00am February 22, 2025 6:10am Start: 04-06-2022 End: 04-11-2022 take 1 capsule by mouth twice daily cephALEXin (KEFLEX) 500 mg capsule Indications: Urinary frequency Take 1 capsule by mouth twice daily for 5 days. 10 capsule 0 04/06/2022 04/11/2022 Active Comment on above: Take 1 capsule by mo uth twice daily for 5 days. Take 1 capsule by mo uth four times daily for 5 days. furosemide 20 mg oral tablet (20 sources) Loop Diuretic Start: End: take 1 tablet by mouth once daily as needed furosemide (LASIX) 20 mg tablet Indications: Hypertension, essential Take 1 tablet by mouth once daily as needed. 02/26/2025 02/26/2026 Active hydrALAZINE hydrochloride 25 mg oral tablet (8 sources) Arteriolar Vasodilator Start: 5 hydrALAZINE (APRESOLINE) 25 mg tablet Indications: Hypertension, [...] 30 tablet 5 01/11/2025 07/10/2025 Active Start: 09-11-2023 End: 10-25-2024 take 1 tablet by mouth once daily levothyroxine (SYNTH ROID) 88 mcg tablet Take 1 tablet by mouth once daily. 90 tablet 1 10/12/2023 04/28/2024 Discontinued Start: 03-24-2021 End: 03-31-2023 take 1 tablet by mouth once daily for thyroid dysfunction levothyroxine (LEVOXYL) 125 mcg tablet Indications: Hypothyroidism, unspecified type Take on empty stomach. For thyroid. 1 PO daily x 1 day a week 26 tablet 3 02/26/2022 03/15/2023 Discontinued Start: 08-21-2016 End: 01-09-2025 take 1 tablet by mouth once daily SYNTHROID 100 mcg ta blet Indications: Hypothyroidism, unspecified type Take 1 tablet by mouth once daily. Take on empty stomach 30 tablet 2 10/11/2024 01/09/2025 Active Comment on above: 1 PO daiily x [...] oral tablet (20 sources) Angiotensin 2 Receptor Fidel Start: 4 End: 5 take 1 tablet by mouth twice daily losartan (COZAAR) 25 mg tablet Take 1 tablet by mouth two times a day. 180 tablet 3 09/13/2023 03/23/2024 Discontinued Start: 10-03-2017 End: 01-12-2026 take 1 tablet by mouth twice daily losartan (COZAAR) 50 mg tablet Indications: Hypertension, essential Take 1 tablet by mouth two times a day. 180 tablet 3 01/12/2025 01/12/2026 Active Comment on above: Take 1 tablet by [...] a dose pack (PAXLOVID) (1 source) Start: 2 End: 2 nirmatrelvir tablet 300 mg (150 mg x [...] a total of three tablets twice daily. sodium chloride 1000 mg oral tablet (20 sources) Start: End: take 1 tablet by mouth once daily sodium chloride soluble tablet 1 g Indications: Hyponatremia Take 1 tablet by mouth once daily. 30 tablet 11 2025 2026 Active Start: 02-26-2025 End: 03-05-2025 take 1 tablet by mouth twice daily sodium chloride soluble tablet 1 g Indications: Hyponatremia Take 1 tablet by mouth two times a day for 7 days. 14 tablet 02/26/2025 03/05/2025 Active Start: 10-27-2023 End: 11-26-2023 take 1 tablet by mouth twice daily sodium chloride 1,000 mg TbSO Take 1 tablet by mouth two times a day. 60 tablet 5 10/27/2023 11/26/2023 Start: 07-08-2022 End: 10-07-2023 sodium chloride 0.9 % (flush ) 10 mL (BD POSIFLUSH) Comment on above: Take 1 tablet by mike two times a day. Completed/Discontinued Medications Medication Drug Class(es) Dates Sig [...] on above: Take 1 capsule by mo [facility] three times a day as needed. busPIRone hydrochloride 5 mg oral tablet (16 sources) Start: 07-21-2023 End: 11-16-2023 take 1 tablet by mouth three times daily as needed busPIRone (BUSPAR) 5 mg tablet Indications: CHECO (generalized anxiety disorder) Take 1 tablet by mouth three times a day as needed. 90 tablet 1 08/18/2023 11/16/2023 Comment on above: Take 1 tablet by mike th three times a day. Take 1 tablet by mike th three times a day as needed. 168 hr cloNIDine 0.39027 mg/hr transdermal system (7 sources) Central alpha-2 Adrenergic Agonist Start: 2025 End: 03-21-2025 cloNIDine TTS (CATAPRES-TTS) 0.2 mg/24 hr Apply 1 patch as directed one time a week. 4 patch 2 2025 03/21/2025 Discontinued (Changing Therapy/Dosage Form) Start: 02-26-2025 End: 03-28-2025 cloNIDine TTS (CATAPRES-TTS- 1) 0.1 mg/24 hr Indications: Hypertension, essential Apply 1 patch as directed one time a week. 4 patch 02/26/2025 2025 Discontinued ferrous sulfate 325 mg oral tablet (20 [...] with meals. 0 10/11/2017 Active Start: 10-06-2017 End: 02-22-2025 take 1 tablet by mouth once daily Ferrous Sulfate 325 MG tablet Discontinued 325 mg PO DAILY@0800 30 0 October 06, 2017 1:00am February 22, 2025 6:10am Comment on above: Take 1 tablet by mike twice daily with meals. hydroCHLOROthiazide 12.5 mg oral capsule (3 sources) Thiazide Diuretic Start: 2015 End: 2017 take 1 capsule by mouth once daily Hydrochlorothiazide 12.5 MG capsule Discontinued 12.5 mg PO DAILY August 21, 2016 1:00am October 06, 2017 12:17pm bp CTRL 24 hr metoprolol succinate 25 mg extended release oral tablet (20 sources) beta-Adrenergic Fidel Start: 2024 End: 2024 metoprolol succinate ER (TOPROL XL) 25 mg [...] tablet 1 09/10/2022 03/09/2023 Discontinued Start: 08-21-2016 End: 02-22-2025 Metoprolol Tartrate 50 MG ta blet Discontinued 25 mg PO TWICE A DAY August 21, 2016 1:00am February 22, 2025 6:09am Start: 08-21-2016 take 25 mg by mouth twice aaron y Metoprolol Tartrate Active 25 MG PO TWICE A DAY August 21, 2016 12:00am Comment on above: Take 1 tablet by mike twice daily. take 1 tablet by mike twice a day Take 1 tablet by mike once daily. Take 1 tablet by mike two times a day. omeprazole 20 mg delayed release oral capsule (20 sources) Proton Pump Inhibitor Start: 03-20-2023 End: 02-22-2025 Omeprazole 20 mg capsule,delayed release(DR/EC) Discontinued 20 mg PO .March 20, 2023 12:00am February 22, 2025 6:09am Start: 08-31-2022 End: 08-09-2023 take 1 capsule [...] on above: Take 1 capsule by mo [facility] daily before breakfast. 1/2 hr before meal. Take 1 capsule by mo ut every 48 hours. 1/2 hr before meal. perflutren lipid microspheres 1.3 mL in NaCl (PF) 0.9% 10 mL injection (DEFINITY) (20 sources) Start: 07-08-20 End: 10-07-19 perflutren lipid microspheres 1.3 mL in NaCl (PF) 0.9% 10 mL injection (DEFINITY) spironolactone 25 mg oral tablet (20 sources) Aldosterone Antagonist Start: 11-24-19 End: 04-28-20 take 1 tablet by mouth once daily spironolactone (ALDACTONE) 25 mg tablet Take 1 tablet by mouth once daily. 11/24/2023 04/28/2024 Discontinued Start: 03-15-2023 End: 02-22-2025 take 1 tablet by mouth twice daily Spironolactone 25 mg tablet Discontinued 25 mg PO TWICE A DAY March 20, 2023 12:00am February 22, 2025 6:09am Start: 09-12-2021 End: 03-15-2023 take 1 tablet [...] 3a chronic kidney disease (HCC)] Onset: 07-26-2020 Resolved: 02-26-2025 Chronic Chronic kidney disease (1 source) Chronic kidney disease; Translations: [Stage 3a chronic [...] Translations: [Essential (primary) hypertension] Onset: 08-31-2016 Chronic Hypertension with complications and secondary hypertension (2 sources) Hypertensive urgency ; Translations: [Hypertensive urgency] Onset: 02-24-2025 02-22-2025 Chronic Nutritional deficiencies (20 sources) Vitamin D deficiency; Translations: [Vitamin D deficiency, unspecified] Onset: 06-28-2019 Chronic Other circulatory disease (2 sources) Labile blood pressure; Translations: [Other specified symptoms and signs involving the circulatory and respiratory systems] 02-19-2025 Episodic Other circulatory disease (1 source) Other specified symptoms and signs involving the circulatory and respiratory systems; Translations: [Labile blood pressure] Onset: 03-28-2025 Episodic Other lower respiratory disease (2 sources) Cough; Translations: [Acute cough] 11-06-2023 Episodic Other upper respiratory infections (1 source) Acute upper respiratory infection; Translations: [Acute upper respiratory infection, unspecified] 11-06-2023 Episodic Residual codes; unclassified (1 source) Procedure not done; Translations: [Procedure and treatment not carried out, unspecified reason] 06-29-2023 Episodic Screening and history of mental health and substance abuse codes (4 sources) Patient encounter status; Translations: [Encounter for screening for depression] Onset: 2025 2025 Episodic Spondylosis; intervertebral disc disorders; other back problems (5 sources) Lumbar radiculopathy; Translations: [Radiculopathy, lumbar region] Episodic Syncope (5 sources) Syncope and collapse; Translations: [Syncope and collapse] 10-03-2017 Episodic Thyroid disorders (20 sources) Hypothyroidism; Translations: [Hypothyroidism, unspecified] Onset: 08-31-2016 Chronic Unclassified (8 sources) Encounter for screening mammogram for malignant neoplasm of breast; Translations: [Patient encounter status] Onset: 02-24-2017 Episodic Urinary tract infections (3 sources) Urinary tract infectious disease; Translations: [Urinary tract infection, site not specified] 03-20-2023 Episodic Viral infection (4 sources) Disease caused by 2019-nCoV; Translations: [COVID-19] Episodic Past or Other Problems Problem Classification Problem Date Documented Da te Episodic/Chronic Cardiac dysrhythmias (20 sources) Palpitations; Translations: [Palpitations] Onset: 08-09-2023 06-29-2023 Episodic Conditions associated with dizziness or vertigo (20 sources) Dizziness; Translations: [Dizziness and giddiness] Onset: 07-14-2023 Resolved: 02-25-2025 05-17-2023 Episodic Deficiency and other anemia (20 sources) Anemia; Translations: [Anemia, unspecified] Onset: 12-13-2017 12-13-2017 Episodic Deficiency and other anemia (1 source) Other iron deficiency anemias; Translations: [Other iron deficiency anemia] Onset: 12-13-2017 Episodic Diabetes mellitus without complication (5 sources) Hyperglycemia; Translations: [Hyperglycemia, unspecified] Onset: 02-24-2025 Resolved: 02-25-2025 02-25-2025 Episodic Fluid and electrolyte disorders (20 sources) Hypokalemia; Translations: [Hypokalemia] Onset: 12-26-2018 Resolved: 02-25-2025 12-26-2018 Episodic Genitourinary symptoms and ill-defined conditions [...] Translations: [Tremor, unspecified] Onset: 07-14-2023 07-14-2023 Episodic Other nervous system disorders (1 source) Tremor, unspecified; Translations: [Shakiness] Onset: 07-14-2023 Episodic Residual codes; unclassified (20 sources) Bilateral lower limb edema; Translations: [Localized edema] Onset: 01-24-2021 Episodic Unclassified (4 sources) Asymptomatic menopausal state; Translations: [Family history of malignant neoplasm, unspecified] Onset: 02-24-2017 Episodic Results Test Name Value Interpretation Reference Range Facility Sodium (24H U) [Moles/Time]o n 03-30-2025 PERIOD (HRS) 24 hr Normal [facility] Comment on above: Order Comment: Johanne soto Type: BLOOD SPECIMEN Ordering Facility: [facility] Address: [address] [place] [address] Performed By: #### 3 024-7, 3016-3, 29518-1, 83898-0 #### [facility] CLIA [id number] [address] [place] [address] [place] Specimen volume (24H U) [address] [facility] Comment on above: Order Comment: Johanne soto Type: BLOOD SPECIMEN Ordering Facility: [facility] Address: [address] [place] [address] Performed By: #### 3 024-7, 3016-3, 34143-9, 17304-3 #### [facility] CLIA [id number] [address] [place] [address] [place] Sodium 24h Ur-sRateon 2024 Sodium (24H U) [Moles/Time] 84 mmol/24 hr Normal 40-220 [facility] Comment on above: Order Comment: Johanne soto Type: BLOOD SPECIMEN Ordering Facility: [facility] Address: [address] [place] [address] Performed By: #### 3 024-7, 3016-3, 41552-9, 27864-9 #### [facility] CLIA [id number] [address] [place] [address] [place] Basic metabolic 2000 panelon 03-28-2025 Anion gap [Moles/Vol] 16 mmol/L High 8-15 [facility] Comment on above: Order Comment: Speci men Type: BLOOD SPECIMEN Ordering Facility: [facility] Address: [address] [place] [address] Performed By: #### 3 024-7, 3016-3, 33636-7, 66768-5 #### [facility] CLIA [id number] [address] [place] [address] [place] Calcium [Mass/Vol] 9.3 mg/dL Normal 8.5-10.2 [facility] Comment on above: Order Comment: Speci men Type: BLOOD SPECIMEN Ordering Facility: [facility] Address: [address] [place] [address] Performed By: #### 3 024-7, 3016-3, 69751-5, 64303-2 #### [facility] CLIA [id number] [address] [place] [address] [place] Chloride [Moles/Vol] 102 mmol/L Normal 98-107 [facility] Comment on above: Order Comment: Speci men Type: BLOOD SPECIMEN Ordering Facility: [facility] Address: [address] [place] [address] Performed By: #### 3 024-7, 3016-3, 54150-5, 15437-5 #### [facility] CLIA [id number] [address] [place] [address] [place] CO2 [Moles/Vol] 19 mmol/L Low 22-30 [facility] Comment on above: Order Comment: Speci men Type: BLOOD SPECIMEN Ordering Facility: [facility] Address: [address] [place] [address] Performed By: #### 3 024-7, 3016-3, 28173-8, 83119-2 #### [facility] CLIA [id number] [address] [place] [address] [place] Creatinine [Mass/Vol] 0.80 mg/dL Normal 0.58-0.96 [facility] Comment on above: Order Comment: Johanne soto Type: BLOOD SPECIMEN Ordering Facility: [facility] Address: [address] [place] [address] Performed By: #### 3 024-7, 3016-3, 89865-5, 97872-4 #### [facility] CLIA [id number] [address] [place] [address] [place] eGFRcr SerPlBld CKD-EPI 2020 73 mL/min/1.73m??? Normal >=60 [facility] Comment on above: Order Comment: Johanne soto Type: BLOOD SPECIMEN Ordering Facility: [facility] Address: [address] [place] [address] Result Comment: Hina mated Glomerular Filtration Rate [...] GFR. Performed By: #### 3 024-7, 3016-3, 86061-0, 86587-2 #### [facility] CLIA [id number] [address] [place] [address] [place] Glucose [Mass/Vol] 106 mg/dL High 74-99 [facility] Comment on above: Order Comment: Johanne soto Type: BLOOD SPECIMEN Ordering Facility: [facility] Address: [address] [place] [address] Result Comment: The [place] Diabetes Association (ADA) provides guidance for cutoff [...] Standards of Medical Care in Diabetes 2016, [place] Diabetes Association. Diabetes Care. 2016.39(Suppl 1). Performed By: #### 3 024-7, 3016-3, 85193-6, 71433-8 #### [facility] CLIA [id number] [address] [place] [address] [place] Potassium [Moles/Vol] 4.1 mmol/L Normal 3.7-5.1 [facility] Comment on above: Order Comment: Speci men Type: BLOOD SPECIMEN Ordering Facility: [facility] Address: [address] [place] [address] Performed By: #### 3 024-7, 6-3, 32993-0, 50457-3 #### [facility] CLIA [id number] [address] [place] [address] [place] Sodium [Moles/Vol] 137 mmol/L Normal 136-144 [facility] Comment on above: Order Comment: Sheilai men Type: BLOOD SPECIMEN Ordering Facility: [facility] Address: [address] [place] [address] Performed By: #### 3 024-7, 3016-3, 60453-0, 53685-5 #### [facility] CLIA [id number] [address] [place] [address] [place] Urea nitrogen [Mass/Vol] 9 mg/dL Normal 7-21 [facility] Comment on above: Order Comment: Speci men Type: BLOOD SPECIMEN Ordering Facility: [facility] Address: [address] [place] [address] Performed By: #### 3 024-7, 3016-3, 56012-7, 40427-4 #### [facility] CLIA [id number] [address] [place] [address] [place] CNOVon 03-28-2025 CNOV Office Visit (FAMPWS ) CASANDRA HENRY ([id number]) 1940 F Date Time Provider Department 03/28/25 7:00 AM MARILYN GUTIERREZ FAMPWS During your visit today, we recorded the following information about you: Temperature Pulse Respiration Blood pressure 98.6 degrees 88/minute 16/minute 148/80 Weight 61.2 kg Marilyn Gutierrez PA-C 03/28/2025 8:02 AM Signed Chief Complaint Patient presents with: Follow Up: Blood pressure HPI Casandra Henry is a 85 year old female who presents here today for Above Complaints.. Hypertension: - BP fluctuations with readings ranging from 131/75 to 162/87 mmHg today in office. - Recent symptoms of numbness in lips, dizziness, and facial flushing after taking losartan and amlodipine. - Concerns about potential allergic reactions to medications. - Recent adjustments to antihypertensive regimen, including discontinuation of clonidine patch and increase in amlodipine to 10 mg. - Currently taking Coreg BID and hydralazine PRN. - Recent sodium level at 137 mEq/L. - History of low sodium levels requiring supplementation. - Recent cortisol levels within normal range. - Scheduled cardiology appointment with Dr. Lewis at [facility] on 04/04. - Previous evaluation by varnish finisher Dr. Ray for stage 3 CKD- states she was cleared by him - Recent thyroid function tests within normal limits. Past medical history, appointments, medications, allergies reviewed. Previous Medical History PAST MEDICAL HISTORY Diagnosis Date Acid reflux Hiatal hernia Hypertension Hypothyroid Palpitation Previous Surgical History PAST SURGICAL HISTORY Procedure Laterality Date CARPAL TUNNEL 2001 bilateral COLONOSCOPY FLX DX W/COLLJ SPEC WHEN PFRMD 12/05/2013 Colonoscopy done in [facility] FLX W/REMOVAL LESION BY HOT [...] Brother 76 Patient Allergies ALLERGIES Allergen Reactions Amlodipine Other: See Comments Lip numbness Gluten Cough, GI Upset Latex Itching Positive patch test Losartan Other: See Comments Numbness of lips Milk Containing Pro* Cough Current Medications Current Outpatient Medications on File Prior to Visit Medication Sig sodium chloride soluble tablet 1 g Take 1 tablet by mouth once daily. hydrALAZINE (APRESOLINE) 25 mg tablet Take 1 tablet by mouth three times a day as needed (elevated blood pressure > 140/90). SYNTHROID 100 mcg tablet Take 1 tablet by mouth once daily. Take on empty stomach carvedilol (COREG) 12.5 mg tablet Take 1 tablet by mouth two times a day. furosemide (LASIX) 20 mg tablet Take 1 tablet by mouth once daily as needed. multivit with iron,minerals (MULTIVITAMIN AND MINERALS ORAL) Take by mouth. No current facility-administered medications on file prior to visit. Social History Social History Tobacco Use Smoking status: Never Smokeless tobacco: Never Vaping Use Vaping status: Never Used Substance Use Topics Alcohol use: No Drug use: No Review of Symptoms REVIEW OF SYSTEMS Constitutional: (+) fatigue Cardiovascular: (+) palpitations Skin: (+) facial flushing Neurological: (+) perioral numbness, (+) dizziness, (+) shakiness, (+) brain fog Psychiatric: (+) nervousness SEE HPI EXAM: BP 148/80 (BP Site: Left Arm, BP Position: Sitting, BP Cuff Size: Regular Adult) Pulse 88 Temp 37 ?C (98.6 ?F) Resp 16 Wt 61.2 kg (135 lb) SpO2 95% BMI 24.69 kg/m? General Appearance: Well appearing, alert, in no acute distress, well-hydrated, well nourished.. Neck: Supple, no adenopathy; thyroid symmetric, normal size, no bruits. Lungs: Lungs clear to auscultation. No wheezing, rhonchi, rales.. Heart: RRR without murmur, gallop, or rubs. No ectopy. Health Maintenance List Advance Directive Discussion Never done Medicare Advantage Annual Wellness Visit Never done DTaP,Tdap,Td Vaccine(1 - Tdap) due on 2026 RSV Vaccine(1 - 1-dose 75+ series) due on 2026 Influenza Vaccine(1) due on 04/23/2025 Depression Screening due on 2026 Anxiety Screening due on 2026 Diabetes Screening due on 03/08/2028 Bone Density Screening Completed Shingrix Vaccine Completed Pneumococcal Vaccine: 50+ Completed Colorectal Cancer Screening Discontinued Data reviewed Latest Ref Rng 02/25/2025 03/08/2025 WBC 3.70 - 11.00 k/uL 8.33 RBC 3.90 - 5.20 (more content not included)... Normal [facility] Cortmathew Ortiz-Merrill 03-28-20 25 Cortisol [Mass/Vol] 15.9 ug/dL Normal 4.8-19.5 [facility] Comment on above: Order Comment: Speci men Type: BLOOD SPECIMEN Ordering Facility: [facility] Address: [address] [place] [address] Result Comment: Prov ided reference range is from 6-10 AM sample collection time. Cortisol Reference Range: 6-10 AM = 4.8-19.5 ug/dL, 4-8 PM = 2.5-11.9 ug/dL Performed By: #### 3 024-7, 3016-3, 60117-8, 70747-2 #### [facility] CLIA [id number] [address] [place] [address] [place] CNPLorelei 03-26-2025 CNPN Telephone (FAMPWS) CASANDRA HENRY ([id number]) 1940 F Date Time Provider Department 03/26/25 SREEAKNTH CORTEZ FAMPWS During your visit today, we recorded the following information about you: Chyna Ramirez RN 03/26/2025 4:37 PM Signed Pt called in and reports her BP has been all over the place because he medication dosages have been changed and she has been started on new meds. She states yesterday she took her BP before her medication in the morning it was 136/83 HR 83, then at 1030 BP 106/56 HR 74. She states after that the systolic was 114 or 140 and she said she was afraid to take the Amlodipine because she thought her BP was too low. Pt reports she took the Losartan and Coreg. Did the provider want to BP parameters on medications for Pt. Pt states yesterday she felt good all day. Today the Pt reports she felt dizzy. Pt's morning BP before meds at 0730 was 144/83 HR 70, she said she was a little dizzy. Pt then reports she took her Coreg her BP was 142/94 HR 83, then at 1200 she was really dizzy and her BP 154/80 HR 73. She said he helped her finish cooking and she laid down and took a nap. At 4 om her BP was 161/83 HR 73, she states she didn't feel as dizzy. Pt reports she goes to see Cardiology bext week. She said her daughter was looking at her lab work and said her Cortisol looked a little off and they were wanting to know if there was any other testing they could run to check this before she goes to see Cardiology. The Pt wanted to let provider know that the last few days the Losartan has been making her lips a little numb. Pt states she has been taking each pill by itself with an hour in between. She reports not too long after she take the pill her lips will will sting a little, and it won't last more than an hour. Please call and advise. ENEDELIA Bee M Robin, RN 03/27/2025 4:36 PM Signed Pt checking on pcp reply. Pt reports she did not take any of her BP medicines today and has felt good all day. Checked her BP at home today: Mornin/79 (76) Noon: 155/78 (69) 3:30 pm: 138/81 (81) Pt states she is not going to take her BP medications today. Scheduled appt tomorrow morning with Luis Carlos Gutierrez, no openings in pcp triad. Pt states she will not take her BP meds until after she talks to Marilyn tomorrow morning. Reports yesterday she took losartan first. 30 min later felt her lips get numb and that lasted a while. Also became jittery and felt exhausted. No dizziness or anxiety today. Reports when she took her amlodipine her lips became numb but didn't last as long as the losartan. Does not have any problems with coreg. Takes hydralazine only as needed for BP > 140/90. Last took this one a couple days ago. Pt states she knows it's the losartan that is causing the problems, even though she has taken it for years. Also see below message... Allergies As of Date: 03/26/2025 Noted Allergy Reaction GLUTEN 08/09/2023 3 - Cough 8 - GI Upset LATEX 05/15/2015 9 - Itching Comments: Positive patch test MILK CONTAINING PRODUCTS (DAIRY) 08/09/2023 3 - Cough Date Reviewed: 03/13/2025 Reviewed by: Margoth Chavez APRN.MATHS TUTOR - Fully Assessed Reason for Visit: Patient Update [1234] Patient Question [1927] Prescriptions as of 03/28/2025 - carvedilol (COREG) 12.5 mg tablet Take 1 tablet by mouth two times a day. - sodium chloride soluble tablet 1 g Take 1 tablet by mouth once daily. - furosemide (LASIX) 20 mg tablet Take 1 tablet by mouth once daily as needed. - hydrALAZINE (APRESOLINE) 25 mg tablet Take 1 tablet by mouth three times a day as needed (elevated blood pressure > 140/90). - SYNTHROID 100 mcg tablet Take 1 tablet by mouth once daily. Take on empty stomach - multivit with iron,minerals (MULTIVITAMIN AND MINERALS ORAL) Take by mouth. Problem List As Of Date 03/26/2025 Noted Resolved Essential hypertension [I10] 08/31/2016 Hypothyroidism [E03.9] 08/31/2016 Absolute anemia [D64.9] 12/13/2017 Hyperlipidemia, mixed [E78.2] 12/13/2017 Hypokalemia [E87.6] 12/26/2018 Anemia [D64.9] 12/26/2018 Hypertension, essential [I10] 12/26/2018 Vitamin D deficiency [E55.9] 06/28/2019 Stage 3a chronic kidney disease (HCC) [N18.31] 07/26/2020 02/26/2025 Dyslipidemia [E78.5] 01/24/2021 Bilateral leg edema [R60.0] 01/24/2021 Gastroesophageal reflux disease [K21.9] 09/01/2022 Dysuria [R30.0] 03/31/2023 Shakiness [R25.1] 07/14/2023 Fatigue [R53.83] 07/14/2023 Dizziness [R42] 07/14/2023 02/25/2025 Hyponatremia [E87.1] 07/14/2023 02/25/2025 Palpitation [R00.2] 08/09/2023 SVT (supraventricular tachycardia) [I47.10] 08/13/2023 External hemorrhoids [K64.4] 08/30/2023 Fiber deficiency [E63.8] 09/22/2023 Hyperglycemia [R73.9] 02/24/2025 02/25/2025 LFTs abnormal [R79.89] 02/24/2025 Encounter Status:Closed by CHINEDU (more content not included)... [facility] ELAINECASANDRA ([id number]) 1940 F Date Time Provider Department 03/17/25 SREEKANTH CORTEZ During your visit today, we recorded the following information about you: Mary Haro 03/17/2025 9:18 AM Signed casandra is calling Sreekanth Cortez DO today with concern regarding Patient Question (Heart rate) Patient reports her heart rate has been elevated for a while. She states her blood pressure is normal in the 140's - 150's. She is on a patch. Patient has been identified by name and birthdate. Duration of symptoms: N/A Person calling: self Call patient at: at home [phone] (home) [phone] (cell) Was an appointment scheduled: No Closing statement: Anita Blackburn RN 03/17/2025 11:55 AM Signed Called and spoke with pt. Pt has been having problems with high blood pressure now for several months. Pt states they have been changing her medications and trying to find what is going to work. On 02/05, Dr. Cortez stopped pt's Metoprolol and started her on Carvedilol 12.5 mg BID. On 02/19, pt saw Margoth Chavez with no med changes but a referral to [facility] for labile blood pressure. On 02/24, pt went to [facility] and was admitted overnight for BP-discharged on 02/25. Her Carvedilol was increased to 25 mg BID. Then pt had a visit with Margoth Chavez on 02/26 and started pt on Clonidine 0.1 mg/24 hr patches and documented to stop the Carvedilol due to high interactions with Catapres and also started pt on Norvasc 5 mg daily. Then Margoth saw her again on 03/12. In that note, it does not appear she made any med changes, but found in pt's AVS in instructions for pt to start Carvedilol 6.25 mg twice daily for her increased heart rate and put if pt had 12.5 mg tablets at home, to cut them in half. Pt also has Hydralazine 25 mg with directions of taking 1 tablet 3 times a day as needed for BP >140/90. So current meds for BP on med list are: -Amlodipine 5 mg tablet daily -Carvedilol 6.25 mg BID with meals -Clonidine TTS 0.2 mg/24 hr patch -Losartan 50 mg BID -Furosemide 20 mg 1 tab daily prn -Hydralazine 25 mg tab 1 TID prn BP >140/90 Pt is confused and concerned about both her BP and her HR. States her heart rate used to be in the 70s and now seems to always be in the 80s or 90s and occasionally over 100. States yesterday her BP was 160's/90 and this morning it was 166/86 pulse 89. She had another BP one morning a few days ago that was 107/61. Pt isn't sure about taking the Carvedilol as she is concerned her BP an P will get too low. So this morning she only took Carvedilol 1/2 pill instead of whole. Explained to pt that she is to take a full tablet (6.25 mg according to med list) twice a day with meals. Encouraged pt to take the other half since her BP is 166/86 and pulse 89 this morning. Instructed pt to take her BP 4 times a day each time before she would take a BP med. Pt takes her BP meds at the approximate times below: -Amlodipine and Losartan at around 7 am -Carvedilol after breakfast around 8 am -Carvedilol with dinner around 6 pm -Losartan in the evening around 7 pm And then is wearing her Clonidine patch and takes her Hydralazine as needed During conversation, pt states she is wearing a Clonidine 0.1 mg patch as Margoth told her to finish those out. She said she could add and wear another 0.1 mg patch if needed as well. In review of chart, noted in Margoth's OV note to stop the Carvedilol due to high interactions with Catapres. So called pt back and found out that pt has both Carvedilol 25 mg tablets at home and Carvedilol 12.5 mg at home. She does not have any 6.25 mg tablets. In looking at AVS on 03/12, there is the note about pt taking half of 12.5 mg. Pt does not remember Margoth telling her that so pt took half of a Carvedilol 25 mg tablet so when I told her to take the other half of her tablet (which I thought was a 6.25 mg tablet) she actually took another 12.5 mg so equal to 25 mg total this morning. Had pt take her BP now and it is still 163/93 and pulse 107. Went over pt's med list and OV notes and instructed pt that she is to take a half of 12.5 mg tablet Carvedilol twice daily with meals and that will confirm about the Clonidine patches as med list says a 0.2 mg patch but unable to find documentation where Margoth increased it from the 0.1 mg to the 0.2 mg or where she told pt she could wear two of the 0.1 mg patches. Currently pt is only wearing a 0.1 mg patch. Pt instructed to take BP and P before each dose of BP med and document that for about 3-4 days and send readings in through her MyChart. Continue with the Hydralazine if BP >140/90. Will confirm with Margoth on patch dosage and Carvedilol dosing as pt was confused on that. Luc Whipple MD 03/17/2025 12:02 PM Signed With high BP today (more content not included)... Normal [facility] CNOVon 2025 CNOV Office Visit (FAMPWS ) CASANDRA HENRY ([id number]) 1940 F Date Time Provider Department 03/12/25 11:20 AM MARGOTH CHAVEZ During your visit today, we recorded the following information about you: Pulse Respiration Blood pressure Weight 88/minute 12/minute 120/62 62.5 kg Margoth Chavez APRN.CNP 03/13/2025 11:29 PM Signed This is a 85 year old female who presents today with: 2 week follow up Office visit 02/26, assessment and plan: ASSESSMENT/PLAN: 1. Hyponatremia - ICD9: 276.1, ICD10: E87.1 (primary diagnosis) - SODIUM CHLORIDE 1,000 MG SOLUBLE TABLET x 7 days - BASIC METABOLIC PANEL in 2 weeks prior to follow up -change lasix to PRN only 2. Hypertension, essential - ICD9: 401.9, ICD10: I10 - Uncontrolled - Factors affecting control: hyponatremia, side effects meds - Recommend home blood pressure monitoring, to bring results to next visit including HR - FUROSEMIDE 20 MG TABLET prn only - CLONIDINE 0.1 MG/24 HR WEEKLY TRANSDERMAL PATCH -stop carvedilol due to high interactions with catapres -start norvasc 5mg daily HISTORY OF PRESENT ILLNESS: Elevated Heart Rate: - Noted increased heart rate over the past few nights. - Previously on metoprolol, switched to carvedilol by Dr. Cortez, then discontinued. - Currently on amlodipine and clonidine. - Reports heart rate sometimes reaching 100-102 bpm. - denies palpitations HTN Home log SBP 122-202 HR 76-111 Less administration of prn hydralazine Has had more good days since last visit Less dizziness but still occurs requiring rest Fatigue- has good and bad days Headaches- denies Epistaxis- denies Chest pain- denies Most Recent 03/15/22 - 03/13/25 12/25/24 02/05/25 08:41 02/19/25 02/24/25 02/25/25 02/26/25 09:07 03/12/25 11:14 BP 120/62 03/12/25 11:14 199/87 [1] 180/80 170/80 130/78 168/82 170/80 120/62 Most Recent 03/15/22 - 03/13/25 12/25/24 02/05/25 08:41 02/19/25 02/24/25 02/25/25 02/26/25 09:07 03/12/25 11:14 Pulse 88 03/12/25 11:14 71 84 68 75 70 75 88 Sodium Level Management: - Sodium levels recently normalized to 137 mEq/L. - Completed a week-long course of sodium supplements about a week ago; took additional supplements over the past two nights due to feeling unwell. - Has extra sodium supplements from previous hospitalization. Edema: - Edema controlled with compression socks. - Takes diuretics PRN for edema. - Takes daily naps with legs elevated above her heart - denies an increase in edema with added amlodipine Iron Deficiency: - Takes two iron supplements daily. - Consumes fruits and vegetables supplements to aid iron absorption. Back Pain: - Reports numbness in one leg at night, attributed to lower back issues. - not painful but causes her anxiety sometimes Next appt with Dr Cortez in April PAST MEDICAL HISTORY: PAST MEDICAL HISTORY Diagnosis Date Acid reflux Hiatal hernia Hypertension Hypothyroid Palpitation PAST SURGICAL HISTORY Procedure Laterality Date CARPAL TUNNEL 2000 bilateral COLONOSCOPY FLX DX W/COLLJ SPEC WHEN PFRMD 12/05/[address] [facility] [place]OV[facility] LESION BY HOT BX FORCEPS 02/19/[address] Catarino Salas LAPAROSCOPIC DUODENAL BIOPSY 02/13/2020 Catarino Salas MD; duodenal biopsy, gastric antrum biopsy, irregular GE junction bopsy, proximal gastric body soft tissue prominence biopsy all performed ALLERGIES Gluten, Latex, and Milk Containing Products (Dairy) MEDICATIONS Current Outpatient Medications Medication Sig furosemide (LASIX) 20 mg tablet Take 1 tablet by mouth once daily as needed. cloNIDine TTS (EPTUURMI-THB-4) 0.1 mg/24 hr Apply 1 patch as directed one time a week. amLODIPine (NORVASC) 5 mg tablet Take 1 tablet by mouth once daily. hydrALAZINE (APRESOLINE) 25 mg tablet Take 1 tablet by mouth three times a day as needed (elevated blood pressure > 140/90). losartan (COZAAR) 50 mg tablet Take 1 tablet by mouth two times a day. SYNTHROID 100 mcg tablet Take 1 tablet by mouth once daily. Take on empty stomach multivit with iron,minerals (MULTIVITAMIN AND MINERALS ORAL) [...] No Drug use: No REVIEW OF SYSTEMS See HPI EXAM: There were no vitals taken for this visit. PHYSICAL EXAM: General Appearance: Well appearing, alert, in no acute distress, well-hydrated, well nourished.. (more content not included)... Normal [facility] Basic metabolic 2000 panelon 03-08-2025 Anion gap [Moles/Vol] 15 mmol/L Normal 8-15 [facility] Comment on above: Order Comment: Speci men Type: BLOOD SPECIMEN Ordering Facility: [facility] Address: [address] [place] [address] Performed By: #### 3 024-7, 3016-3, 14254-4, 82007-1 #### [facility] CLIA [id number] [address] [place], [place] [address] [id number], [place] [address] [place] Calcium [Mass/Vol] 9.7 mg/dL Normal 8.5-10.2 [facility] Comment on above: Order Comment: Speci men Type: BLOOD SPECIMEN Ordering Facility: [facility] Address: [address] [place] [address] Performed By: #### 3 024-7, 3016-3, 71253-0, 80340-5 #### [facility] CLIA [id number] [address] [place] [address] [place] Chloride [Moles/Vol] 101 mmol/L Normal 98-107 [facility] Comment on above: Order Comment: Speci men Type: BLOOD SPECIMEN Ordering Facility: [facility] Address: [address] [place] [address] Performed By: #### 3 024-7, 3016-3, 78598-5, 10041-2 #### [facility] CLIA [id number] [address] [place] [address] [place] CO2 [Moles/Vol] 21 mmol/L Low 22-30 [facility] Comment on above: Order Comment: Speci men Type: BLOOD SPECIMEN Ordering Facility: [facility] Address: [address] [place] [address] Performed By: #### 3 024-7, 3016-3, 05357-7, 57033-9 #### [facility] CLIA [id number] [address] [place] [address] [place] Creatinine [Mass/Vol] 0.80 mg/dL Normal 0.58-0.96 [facility] Comment on above: Order Comment: Speci men Type: BLOOD SPECIMEN Ordering Facility: [facility] Address: [address] [place] [address] Performed By: #### 3 024-7, 3016-3, 90824-9, 85059-5 #### [facility] CLIA [id number] [address] [place] [address] [place] eGFRcr SerPlBld CKD-EPI 2020 74 mL/min/1.73m??? Normal >=60 [facility] Comment on above: Order Comment: Johanne soto Type: BLOOD SPECIMEN Ordering Facility: [facility] Address: [address] [place] [address] Result Comment: Hina mated Glomerular Filtration Rate [...] GFR. Performed By: #### 3 024-7, 3016-3, 94391-4, 59838-5 #### [facility] CLIA [id number] [address] [place] [address] [place] Glucose [Mass/Vol] 92 mg/dL Normal 74-99 [facility] Comment on above: Order Comment: Johanne soto Type: BLOOD SPECIMEN Ordering Facility: [facility] Address: [address] [place] [address] Result Comment: The [place] Diabetes Association (ADA) provides guidance for cutoff [...] Standards of Medical Care in Diabetes 2016, [place] Diabetes Association. Diabetes Care. 2016.39(Suppl 1). Performed By: #### 3 024-7, 3016-3, 87052-6, 42327-1 #### [facility] CLIA [id number] [address] [place] [address] [place] Potassium [Moles/Vol] 4.7 mmol/L Normal 3.7-5.1 [facility] Comment on above: Order Comment: Speci men Type: BLOOD SPECIMEN Ordering Facility: [facility] Address: [address] [place] [address] Performed By: #### 3 024-7, 3016-3, 79841-5, 56221-2 #### [facility] CLIA [id number] [address] [place] [address] [place] Sodium [Moles/Vol] 137 mmol/L Normal 136-144 [facility] Comment on above: Order Comment: Speci men Type: BLOOD SPECIMEN Ordering Facility: [facility] Address: [address] [place] [address] Performed By: #### 3 024-7, 3016-3, 07994-7, 65076-2 #### [facility] CLIA [id number] [address] [place] [address] [place] Urea nitrogen [Mass/Vol] 10 mg/dL Normal - [facility] Comment on above: Order Comment: Speci men Type: BLOOD SPECIMEN Ordering Facility: [facility] Address: [address] [place] [address] Performed By: #### 3 024-7, 3016-3, 87094-3, 76806-0 #### [facility] CLIA [id number] [address] [place] [address] [place] CNPLorelei 03-08-2025 CNPN Telephone (PODCCP) CASANDRA HENRY ([id number]) 1940 F Date Time Provider Department 03/08/25 CORTEZ, SREEKANTH L PODCCP During your visit today, we recorded the following information about you: Yu Vale 03/08/2025 9:49 AM Signed Transitional Care Management (TCM) [facility] Provider Action / FYI: na SUMMARY: Outreach type: INITIAL OUTREACH Discharge Network Status: In-Network Discharge Source of Patient: [facility] TCM Discharge Report Patient discharged from [facility] on 02.25.25. Admitted for Dizziness. . Contact made with patient: No - 2nd unsuccessful attempt - end outreach and close encounter. Vale Yu March 08, 2025 9:49 AM Allergies As of Date: 03/08/2025 Noted Allergy Reaction GLUTEN 08/09/2023 3 - Cough 8 - GI Upset LATEX 05/15/2015 9 - Itching Comments: Positive patch test MILK CONTAINING PRODUCTS (DAIRY) 08/09/2023 3 - Cough Date Reviewed: 02/26/2025 Reviewed by: Casandra Hairston LPN - Fully Assessed Reason for Visit: Transition Of Care [4074] Prescriptions as of 03/08/2025 - furosemide (LASIX) 20 mg tablet Take 1 tablet by mouth once daily as needed. - cloNIDine TTS (GPZKDJFK-ORN-0) 0.1 mg/24 hr Apply 1 patch as directed one time a week. - amLODIPine (NORVASC) 5 mg tablet Take 1 tablet by mouth once daily. - hydrALAZINE (APRESOLINE) 25 mg tablet Take 1 tablet by mouth three times a day as needed (elevated blood pressure > 140/90). - losartan (COZAAR) 50 mg tablet Take 1 tablet by mouth two times a day. - SYNTHROID 100 mcg tablet Take 1 tablet by mouth once daily. Take on empty stomach - multivit with iron,minerals (MULTIVITAMIN AND MINERALS ORAL) Take by mouth. Problem List As Of Date 03/08/2025 Noted Resolved Essential hypertension [I10] 08/31/2016 Hypothyroidism [E03.9] 08/31/2016 Absolute anemia [D64.9] 12/13/2017 Hyperlipidemia, mixed [E78.2] 12/13/2017 Hypokalemia [E87.6] 12/26/2018 Anemia [D64.9] 12/26/2018 Hypertension, essential [I10] 12/26/2018 Vitamin D deficiency [E55.9] 06/28/2019 Stage 3a chronic kidney disease (HCC) [N18.31] 07/26/2020 02/26/2025 Dyslipidemia [E78.5] 01/24/2021 Bilateral leg edema [R60.0] 01/24/2021 Gastroesophageal reflux disease [K21.9] 09/01/2022 Dysuria [R30.0] 03/31/2023 Shakiness [R25.1] 07/14/2023 Fatigue [R53.83] 07/14/2023 Dizziness [R42] 07/14/2023 02/25/2025 Hyponatremia [E87.1] 07/14/2023 02/25/2025 Palpitation [R00.2] 08/09/2023 SVT (supraventricular tachycardia) [I47.10] 08/13/2023 External hemorrhoids [K64.4] 08/30/2023 Fiber deficiency [E63.8] 09/22/2023 Hyperglycemia [R73.9] 02/24/2025 02/25/2025 LFTs abnormal [R79.89] 02/24/2025 Encounter Status:Closed by VALE YU on 03/08/25 [facility] CNPNon 02-28-2025 CNPN Telephone (PODCCP) CASANDRA HENRY ([id number]) 1940 F Date Time Provider Department 02/28/25 SREEKANTH CORTEZ PODCCP During your visit today, we recorded the following information about you: Aspen Silvestre 02/28/2025 1:01 PM Signed Transitional Care Management (TCM) [facility] Provider Action / FYI: N/a SUMMARY: Outreach type: INITIAL OUTREACH Discharge Network Status: In-Network Discharge Source of Patient: [facility] TCM Discharge Report Patient discharged from [place] on 02/25/2025. Admitted for Dizziness. Contact made with patient: Yes, for Initial Outreach Hi my name is Aspen Silvestre and I am calling from the [facility] on behalf of your Primary Care Provider, Sreekanth Cortez DO. I understand you were recently in the hospital so I am calling to check in with you to ensure you are feeling well now that you are home. May I ask you a few questions related to your hospital stay and well-being? Yes Contact with patient post discharge, spoke to patient. Patient identified by name and . Symptoms: Do you feel your health is BETTER, WORSE, or the SAME since leaving the hospital? Better Action Taken: Patient indicated symptoms are better or same, no action required. Hospital Follow-Up Appointment: I would like to help you schedule a hospital follow-up visit with your Primary Care Provider (PCP). This is a great way for you to connect with your provider to ensure you have safely transitioned home. If you are agreeable, I will provide you with the Appointment Center phone number to speak with a mold making plastics sheets supervisor who can assist you with that appointment. This will give you an opportunity to ask any questions or address any concerns you may have with your Primary Care Provider. [Inform the patient that if they have any questions or concerns prior to that appointment, to call their PCP's office right away.] Action Taken: Patient had a follow-up appointment with their PCP. Asepn Silvestre February 28, 2025 1:00 PM Allergies As of Date: 02/28/2025 Noted Allergy Reaction GLUTEN 08/09/2023 3 - Cough 8 - GI Upset LATEX 05/15/2015 9 - Itching Comments: Positive patch test MILK CONTAINING PRODUCTS (DAIRY) 08/09/2023 3 - Cough Date Reviewed: 02/26/2025 Reviewed by: Casandra Hairston LPN - Fully Assessed Reason for Visit: Transition Of Care [4074] Prescriptions as of 02/28/2025 - furosemide (LASIX) 20 mg tablet Take 1 tablet by mouth once daily as needed. - cloNIDine TTS (MEEPLLWC-DDA-3) 0.1 mg/24 hr Apply 1 patch as directed one time a week. - amLODIPine (NORVASC) 5 mg tablet Take 1 tablet by mouth once daily. - sodium chloride soluble tablet 1 g Take 1 tablet by mouth two times a day for 7 days. - hydrALAZINE (APRESOLINE) 25 mg tablet Take 1 tablet by mouth three times a day as needed (elevated blood pressure > 140/90). - losartan (COZAAR) 50 mg tablet Take 1 tablet by mouth two times a day. - SYNTHROID 100 mcg tablet Take 1 tablet by mouth once daily. Take on empty stomach - multivit with iron,minerals (MULTIVITAMIN AND MINERALS ORAL) Take by mouth. Problem List As Of Date 02/28/2025 Noted Resolved Essential hypertension [I10] 08/31/2016 Hypothyroidism [E03.9] 08/31/2016 Absolute anemia [D64.9] 12/13/2017 Hyperlipidemia, mixed [E78.2] 12/13/2017 Hypokalemia [E87.6] 12/26/2018 Anemia [D64.9] 12/26/2018 Hypertension, essential [I10] 12/26/2018 Vitamin D deficiency [E55.9] 06/28/2019 Stage 3a chronic kidney disease (HCC) [N18.31] 07/26/2020 02/26/2025 Dyslipidemia [E78.5] 01/24/2021 Bilateral leg edema [R60.0] 01/24/2021 Gastroesophageal reflux disease [K21.9] 09/01/2022 Dysuria [R30.0] 03/31/2023 Shakiness [R25.1] 07/14/2023 Fatigue [R53.83] 07/14/2023 Dizziness [R42] 07/14/2023 02/25/2025 Hyponatremia [E87.1] 07/14/2023 02/25/2025 Palpitation [R00.2] 08/09/2023 SVT (supraventricular tachycardia) [I47.10] 08/13/2023 External hemorrhoids [K64.4] 08/30/2023 Fiber deficiency [E63.8] 09/22/2023 Hyperglycemia [R73.9] 02/24/2025 02/25/2025 LFTs abnormal [R79.89] 02/24/2025 Encounter Status:Closed by ASPEN SILVESTRE on 02/28/25 Normal [facility] CNOVon 02-26-2025 CNOV Office Visit (FAMPWS ) CASANDRA HENRY ([id number]) 1940 F Date Time Provider Department 02/26/25 9:00 AM MARGOTH CHAVEZ During your visit today, we recorded the following information about you: Pulse Blood pressure Weight 75/minute 170/80 63.8 kg Margoth Chavez, FERNANDEZ.MATHS TUTOR 02/26/2025 10:18 AM Signed This is a 84 year old female who presents today with: Follow up ER visit 02/22 [facility] (new order to increase losartan to twice daily which is what she is already on) [facility] 02/24-02/25 (new order to increase carvedilol to 25mg bid) Both for labile blood pressures and dizziness secondary to hypertensive crisis CT and MRI unremarkable. Evaluated by neurology with recommendations to optimize blood pressure control. Lab work really unremarkable besides Na+ levels which last one at hospital was 135 but she was getting IV fluids throughout the weekend PT/OT/ST all recommended home with self care HISTORY OF PRESENT ILLNESS: -Casandra has been dealing with labile blood pressures, symptomatic with dizziness and brain fog, lethargy, mild headaches -they increased her carvedilol at [place] over the weekend but she didn't take that dose this morning, stating she felt like it made her throat feel funny and was coughing. She took the 12.5mg and a prn hydralazine this morning -hospital told her there isn't much they can do on their end besides immediately bring BP down and to follow up with PCP -daughter is present, she says when her sodium levels are off it makes everything off for her mom Last 14 BP Last 14 Encounter BP Readings: Date: BP: 02/26/2025 170/80 02/24/2025 168/82 02/19/2025 170/80 02/05/2025 180/80 12/25/2024 199/87[ANTONIETA BP average[ 08/08/2024 140/80 04/28/2024 154/80[bp antonieta average[ 03/23/2024 152/90 02/14/2024 160/90 11/24/2023 176/80 11/06/2023 124/76 10/27/2023 146/88 10/07/2023 138/64 09/14/2023 158/78 PAST MEDICAL HISTORY: PAST MEDICAL HISTORY Diagnosis Date Acid reflux Hiatal hernia Hypertension Hypothyroid Palpitation PAST SURGICAL HISTORY Procedure Laterality Date CARPAL TUNNEL 2001 bilateral COLONOSCOPY FLX DX W/COLLJ SPEC WHEN PFRMD 12/05/2013 Colonoscopy done in [facility] FLX W/REMOVAL LESION BY HOT BX FORCEPS 02/19/[address] Catarino Salas LAPAROSCOPIC DUODENAL BIOPSY 02/13/2020 Catarino Salas MD; duodenal biopsy, gastric antrum biopsy, irregular GE junction bopsy, proximal gastric body soft tissue prominence biopsy all performed ALLERGIES Gluten, Latex, and Milk Containing Products (Dairy) MEDICATIONS Current Outpatient Medications Medication Sig carvedilol (COREG) 25 mg tablet Take 25 mg by mouth two times a day with meals. hydrALAZINE (APRESOLINE) 25 mg tablet Take 1 [...] No Drug use: No REVIEW OF SYSTEMS See HPI EXAM: There were no vitals taken for this visit. PHYSICAL EXAM: General Appearance: Well appearing, alert, in no acute distress, fatigued Lungs: Lungs clear to auscultation. No wheezing, rhonchi, rales.. Heart: RRR without murmur, gallop, or rubs. No ectopy. Neurologic: Gait normal. Reflexes normal and symmetric. Sensation grossly intact. Hand grasps equal, tongue midline, smile equal. ASSESSMENT/PLAN: 1. Hyponatremia - ICD9: 276.1, ICD10: E87.1 (primary diagnosis) - SODIUM CHLORIDE 1,000 MG SOLUBLE TABLET x 7 days - BASIC METABOLIC PANEL in 2 weeks prior to follow up -change lasix to PRN only 2. Hypertension, essential - ICD9: 401.9, ICD10: I10 - Uncontrolled - Factors affecting control: hyponatremia, side effects meds - Recommend home blood pressure monitoring, to bring results to next visit including HR - FUROSEMIDE 20 MG TABLET prn only - CLONIDINE 0.1 MG/24 HR WEEKLY TRANSDERMAL PATCH -stop carvedilol due to high interactions with catapres -start norvasc 5mg daily Discussed treatment plan and patient voices understanding. Patient's questions answered appropriately. Medications and potenti (more content not included)... Normal [facility] 02-25-2025 ALL[facility]ALTH HNO ID: [id number] Author: MARTHA MARTINI MRI Tech Service: Radiology Author Type: Office Bookkeeper Type: Allied Health Filed: 02/25/2025 11:28 Note Text: Radiology Service Progress Note PATIENT NAME: Casandra Henry DATE OF SERVICE: February 25, 2025 TIME: 11:28 AM PATIENT IDENTITY VERIFICATION COMPLETED USING TWO (2) IDENTIFIERS: Name and Date of confirmed by patient verbally and Name and Date of confirmed by identification band. FALL SCREENING: Has the patient had 2 falls in the last year or 1 fall with injury or currently using an Ambulatory Assistive Device (Walker, Cane, Wheelchair, Crutches, etc.)? Inpatient: Screened on floor PATIENT GENDER DATA: Assigned female at . status: : No status: NO. PATIENT RELEVANT IMPLANT DATA REVIEWED: Yes PATIENT PRESENTS WITH AN IMPLANTABLE OR ATTACHED SENIOR LANDSCAPE ARCHITECT: No RADIOLOGY DEPARTMENT: MR; Exam(s) Completed: Head: Routine Brain. Aromatherapy Administered: No PERIPHERAL IV DATA: Not applicable SIGNED BY: RADHA Marmolejo February 25, 2025 11:28 AM [facility] Aldost SerPl-mCncon 02-26-20 25 Aldosterone [Mass/Vol] 3.6 ng/dL Normal 0.0-<35.4 [facility] Comment on above: Order Comment: Speci men Type: BLOOD SPECIMEN Ordering Facility: [facility] Address: [address] [place] [address] Result Comment: The reference interval for serum/plasma aldosterone is based on a normal sodium intake and upright position. High sodium intake may suppress aldosterone and low sodium intake may increase aldosterone. The supine reference interval is <23.7 ng/dL. A ratio of aldosterone in ng/dL to direct renin in pg/mL greater than or equal to 3.8 is a positive screening test result for primary aldosteronism, when aldosterone is greater than or equal to 15 ng/dL. Performed By: #### 1 763-2 #### [facility] CLIA [id number] [address] [place] [address] [place] CBC W Auto Differential pane l (Bld)on 02-25-2025 Basophils (Bld) [#/Vol] 10*3/uL Normal <0.11 [facility] Comment on above: Order Comment: Speci men Type: BLOOD SPECIMENOrdering Facility: [facility] Address: [address] [place] [address] Performed By: #### 5 7021-8 ####[facility] [id number] [place] [address] [place] Basophils/100 WBC (Bld) 0.2 % Normal [facility] Comment on above: Order Comment: Speci men Type: BLOOD SPECIMENOrdering Facility: [facility] Address: [address] [place] [address] Performed By: #### 5 7021-8 ####[facility] [id number] [address] [place] Differential cell count method Nom (Bld) Auto Normal [facility] Comment on above: Order Comment: Speci men Type: BLOOD SPECIMENOrdering Facility: [facility] Address: [address] [place] [address] Performed By: #### 5 7021-8 ####[facility] [id number] [place] [address] [place] Eosinophils (Bld) [#/Vol] 0.46 10*3/uL High <0.46 [facility] Comment on above: Order Comment: Speci men Type: BLOOD SPECIMENOrdering Facility: [facility] Address: [address] [place] [address] Performed By: #### 5 7021-8 ####[facility]CL[facility] [id number] [place] [address] [place] Eosinophils/100 WBC (Bld) 5.5 % Normal [facility] Comment on above: Order Comment: Speci men Type: BLOOD SPECIMENOrdering Facility: [facility] Address: [address] [place] [address] Performed By: #### 5 7021-8 ####[facility]CL[facility] [id number] [address] [place] Erythrocyte distribution width (RBC) [Ratio] 11.9 % Normal 11.5-15.0 [facility] Comment on above: Order Comment: Speci men Type: BLOOD SPECIMENOrdering Facility: [facility] Address: [address] [place] [address] Performed By: #### 5 7021-8 ####[facility]ORYCL[facility] [id number] [place] [address] [place] Hematocrit (Bld) [Volume fraction] 34.4 % Low 36.0-46.0 [facility] Comment on above: Order Comment: Speci men Type: BLOOD SPECIMENOrdering Facility: [facility] Address: [address] [place] [address] Performed By: #### 5 7021-8 ####[facility]CLIA [id number] [place] [address] [place] Hemoglobin (Bld) [Mass/Vol] 11.9 g/dL Normal 11.5-15.5 [facility] Comment on above: Order Comment: Speci men Type: BLOOD SPECIMENOrdering Facility: [facility] Address: [address] [place] [address] Performed By: #### 5 7021-8 ####[facility]ORYCL[facility] [id number] [place] [address] [facility] [place] Immature granulocytes (Bld) [#/Vol] 10*3/uL Normal <0.10 [facility] Comment on above: Order Comment: Speci men Type: BLOOD SPECIMENOrdering Facility: [facility] Address: [address] [place] [address] Performed By: #### 5 7021-8 ####[facility]CL[facility] [id number] [address] Immature granulocytes/100 WBC (Bld) 0.2 % Normal [facility] Comment on above: Order Comment: Speci men Type: BLOOD SPECIMENOrdering Facility: [facility] Address: [address] [place] [address] Performed By: #### 5 7021-8 ####[facility]CL[facility] [id number] [address] Lymphocytes (Bld) [#/Vol] 1.70 10*3/uL Normal 1.00-4.00 [facility] Comment on above: Order Comment: Speci men Type: BLOOD SPECIMENOrdering Facility: [facility] Address: [address] [place] [address] Performed By: #### 5 7021-8 ####[facility]ORYCL[facility] [id number] [address] Lymphocytes/100 WBC (Bld) 20.4 % Normal [facility] Comment on above: Order Comment: Speci men Type: BLOOD SPECIMENOrdering Facility: [facility] Address: [address] [place] [address] Performed By: #### 5 7021-8 ####[facility]ORYCLIA [id number] [address] MCH (RBC) [Entitic mass] 30.5 pg Normal 26.0-34.0 [facility] Comment on above: Order Comment: Speci men Type: BLOOD SPECIMENOrdering Facility: [facility] Address: [address] [place] [address] Performed By: #### 5 7021-8 ####[facility]CL[facility] [id number] [address] MCHC (RBC) [Mass/Vol] 34.6 g/dL Normal 30.5-36.0 [facility] Comment on above: Order Comment: Speci men Type: BLOOD SPECIMENOrdering Facility: [facility] Address: [address] [place] [address] Performed By: #### 5 7021-8 ####[facility]ORYCLIA [id number] [place] [address] [place] MCV (RBC) [Entitic vol] 88.2 fL Normal 80.0-100.0 [facility] Comment on above: Order Comment: Speci men Type: BLOOD SPECIMENOrdering Facility: [facility] Address: [address] [place] [address] Performed By: #### 5 7021-8 ####[facility]ORYCLIA [id number] [place] [address] [place] Monocytes (Bld) [#/Vol] 0.99 10*3/uL High <0.87 [facility] Comment on above: Order Comment: Speci men Type: BLOOD SPECIMENOrdering Facility: [facility] Address: [address] [place] [address] Performed By: #### 5 7021-8 ####[facility]ORYCLIA [id number] [address] Monocytes/100 WBC (Bld) 11.9 % Normal [facility] Comment on above: Order Comment: Speci men Type: BLOOD SPECIMENOrdering Facility: [facility] Address: [address] [place] [address] Performed By: #### 5 7021-8 ####[facility]ORYCLIA [id number] [place] [address] [place] Neutrophils (Bld) [#/Vol] 5.14 10*3/uL Normal 1.45-7.50 [facility] Comment on above: Order Comment: Speci men Type: BLOOD SPECIMENOrdering Facility: [facility] Address: [address] [place] [address] Performed By: #### 5 7021-8 ####[facility]ORYCLIA [id number] [place] [address] [place] Neutrophils/100 WBC (Bld) 61.8 % Normal [facility] Comment on above: Order Comment: Speci men Type: BLOOD SPECIMENOrdering Facility: [facility] Address: [address] [place] [address] Performed By: #### 5 7021-8 ####[facility]ORYCLIA [id number] [place] [address] [place] Nucleated RBC (Bld) [#/Vol] 10*3/uL Normal <0.01 [facility] Comment on above: Order Comment: Speci men Type: BLOOD SPECIMENOrdering Facility: [facility] Address: [address] [place] [address] Performed By: #### 5 7021-8 ####[facility]ORYCLIA [id number] [address] [place] Nucleated RBC/100 WBC (Bld) [Ratio] 0.0 /100 WBC Normal [facility] Comment on above: Order Comment: Speci men Type: BLOOD SPECIMENOrdering Facility: [facility] Address: [address] [place] [address] Performed By: #### 5 7021-8 ####[facility]ATORYCLIA [id number] [place] [address] [place] Platelet mean volume (Bld) [Entitic vol] 9.3 fL Normal 9.0-12.7 [facility] Comment on above: Order Comment: Speci men Type: BLOOD SPECIMENOrdering Facility: [facility] Address: [address] [place] [address] Performed By: #### 5 7021-8 ####[facility]ORYCLIA [id number] [place] [address] [place] Platelets (Bld) [#/Vol] 270 10*3/uL Normal 150-400 [facility] Comment on above: Order Comment: Speci men Type: BLOOD SPECIMENOrdering Facility: [facility] Address: [address] [place] [address] Performed By: #### 5 7021-8 ####[facility]ATORYCLIA [id number] [place] [address] [place] RBC (Bld) [#/Vol] 3.90 10*6/uL Normal 3.90-5.20 [facility] Comment on above: Order Comment: Sheilamarcie soto Type: BLOOD SPECIMENOrdering Facility: [facility] Address: [address] [id number] Performed By: #### 5 7021-8 ####[facility]ATORYCLIA [id number] [address] WBC (Bld) [#/Vol] 8.33 10*3/uL Normal 3.70-11.00 [facility] Comment on above: Order Comment: Specmarcie soto Type: BLOOD SPECIMENOrdering Facility: [facility] Address: [address] [place] [address] Performed By: #### 5 7021-8 ####[facility]ORYCLIA [id number] [address] CNDSon 02-25-2025 CNDS HNO ID: [id number] Author: PHILL DAO APRN.MATHS TUTOR Service: Hospital Medicine Author Type: Nurse Practitioner Type: Discharge Summary Filed: 02/25/2025 15:31 Note Text: Attestation signed by Delilah Fisher MD at 02/25/2025 3:44 PM Discussed with provider below and I agree with their discharge documentation. Delilah Fisher MD DISCHARGE SUMMARY PATIENT NAME: Casandra Henry ADMISSION DATE: 02/24/2025 DISCHARGE DATE: 02/25/2025 ATTENDING PHYSICIAN: Delilah Fisher MD Code Status: Full Code Highest Readmission Risk Score: 16 The 30 day readmissions risk score is derived from an internally validated risk model which evaluates patient level characteristics, utilization history, medication orders and lab results up until the day of discharge. Patients with a score of 39 or above are considered highest risk for readmission. Specific patient level drivers will be listed at the bottom of the summary. Treatment Team: Attending Provider: Delilah Fisher MD Primary Service: , [facility] Nurse Practitioner: Phill Dao APRN.CNP REASON FOR HOSPITALIZATION: Dizziness due to hypertensive urgency Active Hospital Problems Diagnosis POA LFTs abnormal Unknown Gastroesophageal reflux disease Yes Stage 3a chronic kidney disease (HCC) Yes Hyperlipidemia, mixed Yes Essential hypertension Yes Hypothyroidism Yes Resolved Hospital Problems Diagnosis POA Dizziness Yes Hyperglycemia Unknown Hyponatremia Yes OPERATIONS DURING HOSPITALIZATION: None PROCEDURES DURING HOSPITALIZATION: MRI brain HOSPITAL COURSE: This is a 84-year-old female with past medical history of hypertension, hypothyroidism, anemia, hyperlipidemia, CKD, GERD, dizziness, history of SVT, history of hemorrhoids presented to the emergency department with complaints of dizziness and elevated blood pressure. In the emergency department patient was noted to have elevated blood pressure, saturating well on room air. Hyponatremia, hyperglycemia, elevated bilirubin elevated alkaline phosphatase, normal CBC nonsignificant UA. No microbiology sent. EKG in the emergency department shows normal sinus rhythm. Lab investigations show in the ED patient was given hydralazine and IV fluids. She was admitted to medicine. CT brain showing no acute process. MRI brain no acute process. Evaluated by neurology and recommending to optimize blood pressure control. Seen by PT/OT/ST all recommending home with self care. Home antihypertensive regimen was reinstated and blood pressure was improved at time of discharge. The patient has follow up with her PCP office tomorrow. Transitions of Care Critical Issues: - Resume home blood pressure medications and as needed hydralazine - Has follow up tomorrow on PCP office PATIENT CONDITION AT DISCHARGE: Stable DISCHARGE DISPOSITION: Home with Self Care Discharge Physical Exam: VITAL SIGNS: BP 168/82 Pulse 80 Temp 36.8 ?C (98.3 ?F) (Temporal) Resp 18 Ht 157.5 cm (5' 2) Wt 64 kg (141 lb 1.5 oz) SpO2 95% BMI 25.81 kg/m? GENERAL: Alert, no distress, cooperative SKIN: Skin color, texture, turgor normal. No rashes or lesions. HEAD/SINUSES: No significant findings. AT/NC EYES: EOMI OROPHARYNX: MMM LUNGS: Lungs clear to auscultation, good diaphragmatic excursion CARDIAC: Normal S1 and S2; no rubs, murmurs, or gallops EXTREMITIES: No edema or vascular discoloration NEURO: Grossly normal strength, sensation and motor function DIET: Resume your pre-hospital diet, low salt ACTIVITY: Resume pre-hospital activity ALLERGIES Allergen Reactions Gluten Cough Latex Itching Milk Containing Pro* Cough DISCHARGE MEDICATION: Medication List CHANGE how you take these medications COREG 25 mg tablet Generic drug: carvedilol What changed: Another medication with the same name was removed. Continue taking this medication, and follow the directions you see here. CONTINUE taking these medications furosemide 20 mg tablet Commonly known as: LASIX Take 1 tablet by mouth every afternoon. hydrALAZINE 25 mg tablet Commonly known as: APRESOLINE Take 1 tablet by mouth three times a day as needed (elevated blood pressure > 140/90). losartan 50 mg tablet Commonly known as: COZAAR Take 1 tablet by mouth two times a day. MULTIVITAMIN AND MINERALS ORAL SYNTHROID 100 mcg tablet Generic drug: levothyroxine Take 1 tablet by mouth once daily. Take on empty stomach FUTURE APPOINTMENTS: Follow Up with PCP: Sreekanth Cortez DO Future Appointments Date Time Provider Department Center 02/26/2025 9:00 AM Margoth Chavez APRN.SATISH [facility] 05/14/2025 2:20 PM Sreekanth Cortez DO [facility] The patient's risk for 30-day readmission is determined using the following contributi (more content not included)... [facility] CONSULTon 02-25-2025 CONSULT HNO ID: [id number] Author: CISCO MCKENNA APRN.SATISH Service: Neurology General Author Type: Nurse Practitioner Type: Consults Filed: 02/25/2025 09:46 Note Text: TELENEUROLOGY VISIT - New Consultation Name and :Casandra Henry 1940 Patient consented to teleneurology visit on order for consult. Patient consented in Teleneuro consult order. The Teleneurologist or JAYANT is available from 8 am to 5 pm on WEEKDAYS. During weekends, coverage is only during rounding hours. Rounding hours are: [place]: 1 pm to 5 pm [place]: 8 am to 12 pm [place]: 8 am to 12 pm [place]: 1 pm to 3 pm [place]: 1 pm to 5 pm [place]: 1 pm to [address] [facility]: 3 pm to 5 pm Statutory holidays do not have teleneuro coverage. [facility]: During Off hours for Teleneurology please page (not call) [place] [facility] [phone] compensation coordinator for concerns. [place]: During Off hours for Teleneurology please page (not call) [place] [facility] [phone] [facility]: There is no off-hours coverage for Teleneurology. Name: Casandra Henry Age: [age] year old Gender: female Chief Complaint:Blood Pressure Check (Pt presents to the ED from home. PT concerned for fluctuating blood pressure. Pt states she has been trying to get it regulated with her PCP and was advised to take an extra beta fidel if she saw a systolic over 200. Pt took a beta fidel prior to arrival. PT states when it gets high she gets a head ache. Pt has no other complaints at this time. ) Admission Date: 02/24/2025 Consult Requested By: Jeremiah Del Rosario MD, for dizziness, stroke rule out, recommendations will be communicated by shared medical record. HPI: casandra is a 84 year old female with Past Medical History of hypertension, hypothyroidism, anemia, hyperlipidemia, CKD, GERD, dizziness, history of SVT who presents with elevated blood pressure and dizziness. She states she is in the hospital for high blood pressures. She states her blood pressure fluctuates in the 200 systolics and down to the 60's once. She feels it started a few months ago. She reports having headaches, dizziness, and fatigued with the high blood pressures. The headaches are mild and located in the frontal area. She describes it as a pressure. These headaches are typically daily. She does not notice the headaches sometimes. She does not take any medications for these headaches. She denies any associated vision changes, nausea or vomiting. She describes the dizziness as a lightheadedness and a dazed feeling. It is worse with standing. Lying down improves the dizziness. She is still able to ambulate. She denies any recent falls. She ambulates independently. She denies any speech changes. She reports a generalized weakness when her BP is elevated. She reports numbness and tingling her right leg. It started years ago. She believes it is from degenerative disc disease. She also endorses numbness in her right arm. It started about one month ago. It is intermittent. She denies tobacco or alcohol use. Review of Systems Review of systems as indicated in HPI. All other systems negative. ACTIVE PROBLEM LIST Essential Hypertension Hypothyroidism Absolute Anemia Hyperlipidemia, Mixed Hypokalemia Anemia Hypertension, Essential Vitamin D Deficiency Stage 3a Chronic Kidney Disease (Hcc) Dyslipidemia Bilateral Leg Edema Gastroesophageal Reflux Disease Dysuria Shakiness Fatigue Dizziness Hyponatremia Palpitation Svt (Supraventricular Tachycardia) (Hcc) External Hemorrhoids Fiber Deficiency Hyperglycemia Lfts Abnormal PAST MEDICAL HISTORY Diagnosis Date Acid reflux Hiatal hernia Hypertension Hypothyroid Palpitation Medications: Reviewed Current Facility-Administered Medications Medication Dose Route Frequency Provider Last Rate Last Admin carvedilol 12.5 mg tab(s) (COREG) 12.5 mg ORAL BID w MEALS Jeremiah Del Rosario MD NaCl 0.9% iv flush bag 20 mL INTRAVENOUS PRN Jeremiah Del Rosario MD furosemide 20 mg tab(s) (LASIX) 20 mg ORAL DAILY Jeremiah Del Rosario MD levothyroxine 100 mcg tab(s) (SYNTHROID) 100 mcg ORAL DAILY (6 AM) Jeremiah Del Rosario MD 100 mcg at 02/25/25 0430 aspirin, enteric coated 81 mg tab(s) 81 mg ORAL DAILY Jeremiah Del Rosario MD atorvastatin 40 mg tab(s) (LIPITOR) 40 mg ORAL AT BEDTIME Jeremiah Del Rosario MD 40 mg at 02/24/25 2148 hydrALAZINE 20 mg tab(s) (APRESOLINE) 20 mg ORAL q 6 H PRN Jeremiah Del Rosario MD 20 mg at 02/25/25 0422 losartan 50 mg tab(s) (COZAAR) 50 mg ORAL BID Jeremiah Del Rosario MD ALLERGIES Allergen Reactions Gluten Cough Latex Itching Milk Containing Pro* Cough FAMILY HISTORY Problem Relation Age of Onset Stroke Mother 84 Hypertension Mother Heart Mother Cancer Father Lung 75 Cancer Paternal Grandmother Hypertension Sister Hypertension Sister Diabetes Sister Diabetes Sister Kidney Disease Brother 74 PAST SURGICAL HISTORY Procedure Laterality [place] (more content not included)... Normal [facility] Comprehensive metabolic 2000 panelon 02-25-2025 Albumin [Mass/Vol] 3.7 g/dL Low 3.9-4.9 [facility] Comment on above: Order Comment: Speci men Type: BLOOD SPECIMENOrdering Facility: [facility] Address: [address] [place] [address] Performed By: #### 2 432-8, ####[facility]ORATORYCLIA [id number] [place] [id number] [place] ALP [Catalytic activity/Vol] 120 U/L Normal 34-123 [facility] Comment on above: Order Comment: Speci men Type: BLOOD SPECIMENOrdering Facility: [facility] Address: [address] [place] [address] Performed By: #### 2 4323-8, ####[facility] LABORATORYCLIA [id number] [place] [address] [place] ALT [Catalytic activity/Vol] 11 U/L Normal 7-38 [facility] Comment on above: Order Comment: Speci men Type: BLOOD SPECIMENOrdering Facility: [facility] Address: [address] [place] [address] Performed By: #### 2 4322-8, ####[facility] LABORATORYCLIA [id number] [place] [id number] [place] Anion gap [Moles/Vol] 12 mmol/L Normal 8-15 [facility] Comment on above: Order Comment: Speci men Type: BLOOD SPECIMENOrdering Facility: [facility] Address: [address] [place] [address] Performed By: #### 2 432-8, ####[facility]ORATORYCLIA [id number] [place] [id number] [place] AST [Catalytic activity/Vol] 16 U/L Normal 13-35 [facility] Comment on above: Order Comment: Speci men Type: BLOOD SPECIMENOrdering Facility: [facility] Address: [address] [place] [address] Performed By: #### 2 4323-8, ####[facility] LABORATORYCLIA [id number] [place] [address] [place] Bilirubin [Mass/Vol] 1.4 mg/dL High 0.2-1.3 [facility] Comment on above: Order Comment: Speci men Type: BLOOD SPECIMENOrdering Facility: [facility] Address: [address] [place] [address] Performed By: #### 2 4328, ####[facility] LABORATORYCLIA [id number] [place] [address] [place] Calcium [Mass/Vol] 8.7 mg/dL Normal 8.5-10.2 [facility] Comment on above: Order Comment: Speci men Type: BLOOD SPECIMENOrdering Facility: [facility] Address: [address] [place] [address] Performed By: #### 2 4323-03, ####[facility]ORATORYCLIA [id number] [place] [address] [place] Chloride [Moles/Vol] 99 mmol/L Normal 98-107 [facility] Comment on above: Order Comment: Speci men Type: BLOOD SPECIMENOrdering Facility: [facility] Address: [address] [place] [address] Performed By: #### 2 8, ####[facility]ORATORYCLIA [id number] [place] [address] [place] CO2 [Moles/Vol] 24 mmol/L Normal 22-30 [facility] Comment on above: Order Comment: Speci men Type: BLOOD SPECIMENOrdering Facility: [facility] Address: [address] [place] [address] Performed By: #### 2 4323-8, ####[facility]ORATORYCLIA [id number] [place] [address] [place] Creatinine [Mass/Vol] 0.81 mg/dL Normal 0.58-0.96 [facility] Comment on above: Order Comment: Speci men Type: BLOOD SPECIMENOrdering Facility: [facility] Address: [address] [place] [address] Performed By: #### 2 4323-8, ####[facility] LABORATORYCLIA [id number] [place] [address] [place] [facility] Creatinine and Glomerular filtration rate.predicted panel (S/P/Bld) 73 mL/min/1.73m??? Normal >=60 [facility] Comment on above: Order Comment: Johanne men Type: BLOOD SPECIMENOrdering Facility: [facility] Address: [address] [place] [address] Result Comment: Hina mated Glomerular Filtration Rate [...] Performed By: #### 2 4323-8, ####[facility] LABORATORYCLIA [id number] [place] [address] [place] Glucose [Mass/Vol] 98 mg/dL Normal 74-99 [facility] Comment on above: Order Comment: Johanne soto Type: BLOOD SPECIMENOrdering Facility: [facility] Address: [address] [place] [address] Result Comment: The [place] Diabetes Association (ADA) provides guidance for cutoff [...] Standards of Medical Care in Diabetes 2016, [place] Diabetes Association. Diabetes Care. 2016.39(Suppl 1). Performed By: #### 2 4323-8, ####[facility] LABORATORYCLIA [id number] [place] [address] [place] Potassium [Moles/Vol] 3.7 mmol/L Normal 3.7-5.1 [facility] Comment on above: Order Comment: Speci men Type: BLOOD SPECIMENOrdering Facility: [facility] Address: [address] [place] [address] Performed By: #### 2 4323-8, ####[facility] LABORATORYCLIA [id number] [place] [address] [place] Protein [Mass/Vol] 6.3 g/dL Normal 6.3-8.0 [facility] Comment on above: Order Comment: Speci men Type: BLOOD SPECIMENOrdering Facility: [facility] Address: [address] [place] [address] Performed By: #### 2 4323-8, ####[facility] LABORATORYCLIA [id number] [address] [place] Sodium [Moles/Vol] 135 mmol/L Low 136-144 [facility] Comment on above: Order Comment: Speci men Type: BLOOD SPECIMENOrdering Facility: [facility] Address: [address] [place] [address] Performed By: #### 2 4323-8, ####[facility] LABORATORYCLIA [id number] [address] [place] Urea nitrogen [Mass/Vol] 8 mg/dL Normal 7-21 [facility] Comment on above: Order Comment: Speci men Type: BLOOD SPECIMENOrdering Facility: [facility] Address: [address] [place] [address] Performed By: #### 2 4323-8, ####[facility]ORATORYCLIA [id number] [place] [id number] [place] Cortmathew Ortiz-Jennyferon 02-26-20 25 Cortisol [Mass/Vol] 8.4 ug/dL Normal 4.8-19.5 [facility] Comment on above: Order Comment: Speci men Type: BLOOD SPECIMENOrdering Facility: [facility] Address: [address] [place] [address] Result Comment: Prov ided reference range is from 6-10 AM sample collection time. Cortisol Reference Range: 6-10 AM = 4.8-19.5 ug/dL, 4-8 PM = 2.5-11.9 ug/dL Performed By: #### 2 143-6 ####[facility] LABCLIA [id number] [facility] [address] [place] MRI BRAIN WO IVCONon 025 MRI BRAIN WO IVCON * * *Final Report* * * DATE OF EXAM: Feb 25 2025 11:31AM [facility] 0294 - MRI BRAIN WO IVCON / PROCEDURE REASON: Dizziness, non-specific * * * * Physician Interpretation * * * * EXAMINATION: MRI BRAIN WO IVCON CLINICAL HISTORY: Dizziness, non-specific TECHNIQUE: Routine noncontrast MRI protocol including diffusion images. MQ: [id number] COMPARISON: Head CT 02/24/2025 RESULT: Acute Change: There is no evidence of restricted diffusion to suggest an acute infarct. Hemorrhage: No evidence of prior parenchymal hemorrhage on the susceptibility weighted images. Mass Lesion/ Mass Effect: No evidence of an intracranial mass or extra-axial fluid collection. No significant mass effect. Chronic Change: Scattered punctate foci of increased T2 and FLAIR signal are noted in the supratentorial white matter which is a nonspecific finding, but likely represents minimal chronic microvascular ischemia. Small area of encephalomalacia the paramedian right cerebellum. Parenchyma: There is mild generalized parenchymal volume loss. The brain parenchyma is otherwise within normal limits of signal intensity and morphology. Ventricles: Ventriculomegaly corresponds to the degree of parenchymal volume loss. Skull Base: Hypothalamic and pituitary region are grossly normal. Craniocervical junction is normal. No significant marrow replacement process. Vasculature: Major intracranial arterial structures, and dural venous sinuses show typical flow void, suggesting patency by spin echo criteria. Other: The visualized paranasal sinuses and mastoid air cells are clear. The orbits and extracranial soft tissues are unremarkable. Bilateral pseudophakia. IMPRESSION: No acute intracranial abnormality including no evidence of an acute parenchymal infarct. Project Analyst: DELIA Transcribe Date/Time: Feb 25 2025 11:31A Dictated by : WANDA PONCE, DO This examination was interpreted and the report reviewed and electronically signed by: WANDA PONCE DO on Feb 25 2025 11:37AM EST [id number] Normal [facility] Magnesium SerPl-mCncon 02-25 Magnesium [Mass/Vol] 2.1 mg/dL Normal 1.7-2.3 [facility] Comment on above: Order Comment: Speci men Type: BLOOD SPECIMENOrdering Facility: [facility] Address: [facility] [place] [address] Performed By: #### 2 4323-8, 01152-8 ####[facility]ORATORYCLIA [id number] [address] THERAPY NTon 02-25-2025 THERAPY NT HNO ID: [id number] Author: ROXANNE LOWERY PT Service: Physical Therapy Author Type: Physical Therapist Type: Therapy (PT/OT/Speech/Resp) Filed: 02/25/2025 15:05 Note Text: Summary: PT Discontinuation PHYSICAL THERAPY MISSED VISIT SERVICE DATE: 02/25/2025 SERVICE TIME: 1503 ROOM: [place] [address] Patient not seen due to Clinical Appropriateness (no PT needs, IND with mobility, good home support system, confirmed with primary nurse). PT order discontinued at this time. Patient and physician notified that the PT department remains available for further consultation as deemed necessary and/appropriate by the referring physician. SIGNATURE: Roxanne Lowery, PT PATIENT NAME: Casandra Henry DATE: February 25, 2025 TIME: 3:05 PM [facility] THERAPY NT HNO ID: [id number] Author: BRUNILDA CHINCHILLA OTR/L Service: Occupational Therapy Author Type: Occupational Therapist Type: Therapy (PT/OT/Speech/Resp) Filed: 02/25/2025 14:47 Note Text: Summary: OT Eval Occupational Therapy Evaluation Summary SERVICE DATE: 02/25/2025 SERVICE TIME: 1431 to 1446 ROOM: [id number] OT 6 Clicks Score: 24 DISCHARGE RECOMMENDATIONS Home ASSESSMENT Response to Therapy Interventions: Good Participation in Activities, On-Track to Achieve Discharge Goals Pt is at baseline for self care and functional transfers- groomed at sink and toileted independently this session. Functionally transferred indep PRECAUTIONS Fall Risk, Lines/Tubes/Drains CURRENT HOSPITAL COURSE Dizziness, hypertensisve urgency Relevant Past Medical History: hypothyroidsm, HTN, GERD, anxiety, who presents with palpitation, dizziness HOME LIVING Patient Lives With: Spouse Assistance Available: 24-Hour Entry To Home: Stairs, With Rail Number Of Stairs Into Home: 5 Number Of Stairs To Bed/Bath: 0 Tub/Shower Type: tub shower Laundry: main level - patient completes Equipment Owned: Rollator, Cane, Hand Held Shower, Shower Chair PRIOR FUNCTIONAL LEVEL Within Functional Limits Indep for ADLs, amb w/o AD, sleeps in flat bed, drives and completes IADLs. No falls in last 6 mos, Baseline Cognition: Oriented to self, Oriented to place, Oriented to time, Oriented to situation SUBJECTIVE agreeable to tx COGNITION Responsiveness: Alert, Awake Follows Commands: 3-step Commands THERAPY DIAGNOSIS No Skilled Need TREATMENT INTERVENTIONS Evaluation Skilled Treatment Time (minutes): 15 TRAINING AND EDUCATION PROVIDED Benefits of In-Hospital Mobility, Discharge Planning, Role of Occupational Therapy THERAPEUTIC SKILLS USED Activity Dosing, Therapeutic Use of Self FUNCTIONAL STATUS Activities of Daily Living Assist Level Additional Information Feeding Independent Grooming Independent Bathing Upper Body Independent Bathing Lower Body Independent Dressing Upper Body Independent Dressing Lower Body Independent Toileting Independent Mobility Assist Level Additional Information Bed Mobility Supine To Sit: Independent Sit To Supine: Independent Sit to Stand Independent Stand to Sit Independent Bed to Chair Toilet/Commode Shower Functional Mobility Independent Functional Mobility Device: None ACUTE CARE TREATMENT PLAN OT Frequency: Discontinue Therapy Services Reasons Therapy Services Discontinued: No skilled needs Treatment Interventions: Education SIGNATURE: BARNEY Gonzalez/Sung PATIENT NAME: Casandra Henry DATE: February 25, 2025 TIME: 2:47 PM [facility] THERAPY NT HNO ID: [id number] Author: CHEMO DE ANDA CCC-MELTER HELPER Service: Speech/Swallow Author Type: Speech Language Pathologist Type: Therapy (PT/OT/Speech/Resp) Filed: 02/25/2025 10:53 Note Text: Speech Therapy Clinical Swallow Evaluation SERVICE DATE: 02/25/2025 SERVICE TIME: 1028 to 1050 ROOM: [place] [address] IMPRESSION Functional oropharyngeal phases of swallowing: without identified risk for aspiration RECOMMENDATIONS Diet Recommendations Regular Consistency, Thin Liquids IDDSI Level 0 Swallow Strategy Recommendations Small Bite/Sip, Sit upright 90 degrees for all PO Nursing Recommendations Reinforce use of swallowing strategies Instrumental Swallow Study Recommendations Recommended Consults Response to Therapy Interventions: Good participation in activities Rehabilitation Precautions: Aspiration Precautions DISCHARGE RECOMMENDATIONS Recommended Discharge Disposition: No further skilled speech therapy services anticipated CURRENT HOSPITAL COURSE Reason for Speech Therapy Consult: stroke protocol Relevant Past Medical History: HTN, hypothyroidism, CKD, GERD, anemia HOME ENVIRONMENT / PRIOR FUNCTIONAL LEVEL Prior Functional Level: Within Functional Limits Patient Lives With: Spouse Prior Swallowing Function/Diet Textures: Regular Consistency, Thin Liquids IDDSI Level 0 (pt has a gluten intolerance, avoids gluten) SUBJECTIVE Pt states that she is doing fine with swallowing, but expresses frustration with her changing blood pressure THERAPY DIAGNOSIS No Skilled Need TREATMENT INTERVENTIONS Clinical Swallow Evaluation (12006) Skilled Treatment Time (minutes): 22 TRAINING AND EDUCATION PROVIDED IN Dietary Consistencies, Results and Recommendations of Session THERAPEUTIC SKILLS USED Education on role of discipline / importance of activity, Family / caregiver counseling / training, Instruction in self-monitoring / self-assessment OBJECTIVE Current Status Oral Hygiene: Clear, moist oral cavity Dentition: Retains Natural Dentition, Miscellaneous Missing Teeth, Poor Repair Current Feeding Method: Oral Current Diet Textures: Regular Consistency, Thin Liquids IDDSI Level 0 (Gluten controlled) Current Level Of Communication: Verbal Current Management Of Secretions: Able to self-manage Oral Motor Exam: Within Functional Limits SWALLOW ASSESSMENT Position Of Patient During Assessment: Upright In Bed Feeding Method: Patient Self-Fed Consistencies Presented: Thin Liquids IDDSI Level 0, Minced and Moist Solids IDDSI Level 5, Soft and Bite-Sized Solids IDDSI Level 6, Solid Response to Swallow Interventions: Pt tolerated all trials with timely swallow, adequate hyrolaryngeal elevation and no s/sx of aspiration. Pt did have extended mastication with regular solids due to poor state of teeth. Suggested dental soft diet to patient, she declined need, she states she will order the food she knows she can chew. Pt reports she has a mild gluten alergy and if she eats gluten her throat tickles. MELTER HELPER does not recommend any changes to diet or further therapy at this time. Compensatory Strategies Utilized During Assessment: Small Bite/Sip, Sit upright 90 degrees for all PO, Self-monitoring Adrianne Swallow Protocol: Pass GOALS Patient /Caregiver Goals: Go Home ACUTE CARE TREATMENT PLAN ST Frequency: Discontinue Therapy Services Reasons Inpatient Therapy Services Discontinued: Patient appears safe and appropriate re: communication, cognition, and swallow function with the ability to return to a baseline level of function, No skilled needs Plan of Care Developed with: Patient, Family, Nurse SIGNATURE: Chemo De Anda [facility]-MELTER HELPER PATIENT NAME: Casandra Henry DATE: February 25, 2025 TIME: 10:53 AM Normal [facility] ALBUMIN/CREATININE RATIO, UR INEon 02-24-2025 Albumin DL <= 20 mg/L (U) [Mass/Vol] 226.4 mg/L Normal [facility] Comment on above: Order Comment: Speci men Type: URINE SPECIMENOrdering Facility: [facility] Address: [address] [place] [address] Performed By: #### U ACR, 43201-1, UUNR ####[facility] LABCLIA [id number] [address] [address] [place] Albumin/Creatinine (U) [Mass ratio] 164 mg/g High <30 [facility] Comment on above: Order Comment: Speci men Type: URINE SPECIMENOrdering Facility: [facility] Address: [address] [place] [address] Result Comment: Adul t Male and Female Nephrotic Criteria: <30 mg/g is considered normal to mildly increased 30-300 mg/g is considered moderately increased >300 mg/g is considered severely increased KDIGO. (2013). KDIGO 2012 Clinical Practice Guideline for the Evaluation and Management of Chronic Kidney Disease. Official Journal of the International Society of Nephrology, 3(1), 1-150. Performed By: #### U ACR, 06601-8, UUNR ####[facility] [id number] [place] [id number] [place] Creatinine (U) [Mass/Vol] 137.8 mg/dL Normal 20.0-300.0 [facility] Comment on above: Order Comment: Speci men Type: URINE SPECIMENOrdering Facility: [facility] Address: [address] [place] [address] Performed By: #### U ACR, 70307-7, UUNR ####[facility] LABIA [id number] [place] [id number] [place] ALLIED HEALTHon 02-24-2025 ALLIED HEALTH HNO ID: [id number] Author: ASHLEY CHASE Tech Service: Radiology Author Type: Office Bookkeeper Type: Allied Health Filed: 02/24/2025 19:03 Note Text: Radiology Service Progress Note PATIENT NAME: Casandra Henry DATE OF SERVICE: February 24, 2025 TIME: 7:03 PM PATIENT IDENTITY VERIFICATION COMPLETED USING TWO (2) IDENTIFIERS: Name and Date of confirmed by patient verbally and Name and Date of confirmed by identification band. FALL SCREENING: Has the patient had 2 falls in the last year or 1 fall with injury or currently using an Ambulatory Assistive Device (Walker, Cane, Wheelchair, Crutches, etc.)? Inpatient: Screened on floor PATIENT GENDER DATA: Assigned female at . status: : No status: NO. PATIENT RELEVANT IMPLANT DATA REVIEWED: Not Applicable PATIENT PRESENTS WITH AN IMPLANTABLE OR ATTACHED SENIOR LANDSCAPE ARCHITECT: No RADIOLOGY DEPARTMENT: Ultrasound PERIPHERAL IV DATA: Not applicable SIGNED BY: Ericka Mason February 24, 2025 7:03 PM Normal [facility] CBC W Auto Differential pane l (Bld)on 02-24-2025 Basophils (Bld) [#/Vol] 0.04 10*3/uL Normal <0.11 [facility] Comment on above: Order Comment: Speci men Type: BLOOD SPECIMENOrdering Facility: [facility] Address: [address] [place] [address] Performed By: #### 5 5454-3 ####[facility] LABCLIA [id number] [address] [place]#### 63460-6 ####[place] [facility]ORATORYCLIA [id number] [place] [address] [place] Basophils/100 WBC (Bld) 0.5 % Normal [facility] Comment on above: Order Comment: Speci men Type: BLOOD SPECIMENOrdering Facility: [facility] Address: [address] [place] [address] Performed By: #### 5 5454-3 ####[facility] LABCLIA [id number] [place] [address] [place]#### 09109-7 ####[facility] [facility]ORATORYCLIA [id number] [place] [address] [place] Differential cell count method Nom (Bld) Auto Normal [facility] Comment on above: Order Comment: Speci men Type: BLOOD SPECIMENOrdering Facility: [facility] Address: [address] [place] [address] Performed By: #### 5 5454-3 ####[facility] LABCLIA [id number] [address] [place]#### 28255-4 ####[facility] LABORATORYCLIA [id number] [place] [address] [place] Eosinophils (Bld) [#/Vol] 0.53 10*3/uL High <0.46 [facility] Comment on above: Order Comment: Speci men Type: BLOOD SPECIMENOrdering Facility: [facility] Address: [address] [place] [address] Performed By: #### 5 5454-3 ####[facility] LABCLIA [id number] [address]#### 16206-6 ####[facility] LABORATORYCLIA [id number] [address] Eosinophils/100 WBC (Bld) 6.3 % Normal [facility] Comment on above: Order Comment: Speci men Type: BLOOD SPECIMENOrdering Facility: [facility] Address: [address] [place] [address] Performed By: #### 5 5454-3 ####[facility] LABCLIA [id number] [address] [place]#### 43915-9 ####[facility] LABORATORYCLIA [id number] [address] [place] Erythrocyte distribution width (RBC) [Ratio] 12.0 % Normal 11.5-15.0 [facility] Comment on above: Order Comment: Speci men Type: BLOOD SPECIMENOrdering Facility: [facility] Address: [address] [place] [address] Performed By: #### 5 5454-3 ####[facility] LABCLIA [id number] [address] [place]#### 00101-0 ####[facility] LABORATORYCLIA [id number] [address] [place] Hematocrit (Bld) [Volume fraction] 36.3 % Normal 36.0-46.0 [facility] Comment on above: Order Comment: Speci men Type: BLOOD SPECIMENOrdering Facility: [facility] Address: [address] [place] [address] Performed By: #### 5 5454-3 ####[facility] LABCLIA [id number] [place] [address] [place]#### 93538-0 ####[facility]ATORYCLIA [id number] [place] [address] [place] Hemoglobin (Bld) [Mass/Vol] 12.2 g/dL Normal 11.5-15.5 [facility] Comment on above: Order Comment: Speci men Type: BLOOD SPECIMENOrdering Facility: [facility] Address: [address] [place] [address] Performed By: #### 5 5454-3 ####[facility] LABCLIA [id number] [place] [address] [place]#### 43644-4 ####[facility]ATORYCLIA [id number] [address] Immature granulocytes (Bld) [#/Vol] 10*3/uL Normal <0.10 [facility] Comment on above: Order Comment: Speci men Type: BLOOD SPECIMENOrdering Facility: [facility] Address: [address] [place] [address] Performed By: #### 5 5454-3 ####[facility] LABCLIA [id number] [address] [place]#### 88747-4 ####[facility]ORATORYCLIA [id number] [address] Immature granulocytes/100 WBC (Bld) 0.2 % Normal [facility] Comment on above: Order Comment: Speci men Type: BLOOD SPECIMENOrdering Facility: [facility] Address: [address] [place] [address] Performed By: #### 5 5454-3 ####[facility] LABCLIA [id number] [address]#### 68633-9 ####[facility]ATORYCLIA [id number] [address] [place] [facility] Lymphocytes (Bld) [#/Vol] 1.83 10*3/uL Normal 1.00-4.00 [facility] Comment on above: Order Comment: Speci men Type: BLOOD SPECIMENOrdering Facility: [facility] Address: [address] [place] [address] Performed By: #### 5 5454-3 ####[facility] LABCLIA [id number] [address]#### 62142-9 ####[facility]ATORYCLIA [id number] [address] Lymphocytes/100 WBC (Bld) 21.6 % Normal [facility] Comment on above: Order Comment: Speci men Type: BLOOD SPECIMENOrdering Facility: [facility] Address: [address] [place] [address] Performed By: #### 5 5454-3 ####[facility] LABCLIA [id number] [address]#### 42902-4 ####[facility]ATORYCLIA [id number] [address] [place] [facility] MCH (RBC) [Entitic mass] 29.9 pg Normal 26.0-34.0 [facility] Comment on above: Order Comment: Speci men Type: BLOOD SPECIMENOrdering Facility: [facility] Address: [address] [place] [address] Performed By: #### 5 5454-3 ####[facility] LABCLIA [id number] [address] [place]#### 04352-5 ####[facility]ORATORYCLIA [id number] [address] [place] MCHC (RBC) [Mass/Vol] 33.6 g/dL Normal 30.5-36.0 [facility] Comment on above: Order Comment: Speci men Type: BLOOD SPECIMENOrdering Facility: [facility] Address: [address] [place] [address] Performed By: #### 5 5454-3 ####[facility] LABCLIA [id number] [place] [address] [facility] [place]#### 66744-9 ####[facility]ORATORYCLIA [id number] [address] [place] MCV (RBC) [Entitic vol] 89.0 fL Normal 80.0-100.0 [facility] Comment on above: Order Comment: Speci men Type: BLOOD SPECIMENOrdering Facility: [facility] Address: [address] [place] [address] Performed By: #### 5 5454-3 ####[facility] LABCLIA [id number] [address] [place]#### 87498-4 ####[facility]ATORYCLIA [id number] [address] [place] Monocytes (Bld) [#/Vol] 1.10 10*3/uL High <0.87 [facility] Comment on above: Order Comment: Speci men Type: BLOOD SPECIMENOrdering Facility: [facility] Address: [address] [place] [address] Performed By: #### 5 5454-3 ####[facility] LABCLIA [id number] [place] [address] [facility] [place]#### 07749-9 ####[facility] LABORATORYCLIA [id number] [address] [place] Monocytes/100 WBC (Bld) 13.0 % Normal [facility] Comment on above: Order Comment: Speci men Type: BLOOD SPECIMENOrdering Facility: [facility] Address: [address] [place] [address] Performed By: #### 5 5454-3 ####[facility] LABCLIA [id number] [place] [address] [facility] [place]#### 22227-5 ####[facility]ORATORYCLIA [id number] [address] [place] Neutrophils (Bld) [#/Vol] 4.94 10*3/uL Normal 1.45-7.50 [facility] Comment on above: Order Comment: Speci men Type: BLOOD SPECIMENOrdering Facility: [facility] Address: [address] [place] [address] Performed By: #### 5 5454-3 ####[facility] LABCLIA [id number] [place] [address] [place]#### 41022-5 ####[facility]ORATORYCLIA [id number] [address] Neutrophils/100 WBC (Bld) 58.4 % Normal [facility] Comment on above: Order Comment: Speci men Type: BLOOD SPECIMENOrdering Facility: [facility] Address: [address] [place] [address] Performed By: #### 5 5454-3 ####[facility] LABCLIA [id number] [place] [address] [place]#### 39876-5 ####[facility]ORATORYCLIA [id number] [address] [place] Nucleated RBC (Bld) [#/Vol] 10*3/uL Normal <0.01 [facility] Comment on above: Order Comment: Speci men Type: BLOOD SPECIMENOrdering Facility: [facility] Address: [facility] [place] [address] Performed By: #### 5 5454-3 ####[facility] LABCLIA [id number] [place] [address] [place]#### 30337-8 ####[facility] LABORATORYCLIA [id number] [place] [address] [place] Nucleated RBC/100 WBC (Bld) [Ratio] 0.0 /100 WBC Normal [facility] Comment on above: Order Comment: Speci men Type: BLOOD SPECIMENOrdering Facility: [facility] Address: [address] [place] [address] Performed By: #### 5 5454-3 ####[facility] LABCLIA [id number] [place] [address] [facility] [place]#### 78093-4 ####[facility] [facility]ORATORYCLIA [id number] [place] [address] [place] Platelet mean volume (Bld) [Entitic vol] 9.1 fL Normal 9.0-12.7 [facility] Comment on above: Order Comment: Speci men Type: BLOOD SPECIMENOrdering Facility: [facility] Address: [address] [place] [address] Performed By: #### 5 5454-3 ####[facility] LABCLIA [id number] [address] [place]#### 15521-7 ####[facility] [facility]ORATORYCLIA [id number] [address] [place] Platelets (Bld) [#/Vol] 282 10*3/uL Normal 150-400 [facility] Comment on above: Order Comment: Speci men Type: BLOOD SPECIMENOrdering Facility: [facility] Address: [address] [place] [address] Performed By: #### 5 5454-3 ####[facility] LABCLIA [id number] [place] [address] [facility] [place]#### 59610-6 ####[facility] [facility]ORATORYCLIA [id number] [place] [address] [place] RBC (Bld) [#/Vol] 4.08 10*6/uL Normal 3.90-5.20 [facility] Comment on above: Order Comment: Speci men Type: BLOOD SPECIMENOrdering Facility: [facility] Address: [address] [place] [address] Performed By: #### 5 5454-3 ####[facility] LABCLIA [id number] [address] [place]#### 02467-8 ####[facility]ORATORYCLIA [id number] [address] WBC (Bld) [#/Vol] 8.46 10*3/uL Normal 3.70-11.00 [facility] Comment on above: Order Comment: Speci men Type: BLOOD SPECIMENOrdering Facility: [facility] Address: [address] [place] [address] Performed By: #### 5 5454-3 ####[facility] LABCLIA [id number] [address]#### 56673-2 ####[facility] LABORATORYCLIA [id number] [address] BRAIN WO IVCONon 02-25-20 CT BRAIN WO IVCON * * *Final Report* * * DATE OF EXAM: Feb 24 2025 5:21PM [facility] 0504 - CT BRAIN WO IVCON / PROCEDURE REASON: Transient ischemic attack (TIA) * * * * Physician Interpretation * * * * EXAMINATION: CT BRAIN WO IVCON CLINICAL HISTORY: Transient ischemic attack (TIA) CHANGE IN MENTAL STATUS TECHNIQUE: Serial axial images without IV contrast were obtained from the vertex to the foramen magnum. MQ: CTBWO_3 CT Dose-Length Product (DLP): 645 mGy*cm CT Dose Reduction Employed: Iterative reconstruction. COMPARISON: None. RESULT: Post-operative change: None. Acute change: No evidence of an acute infarct or other acute parenchymal process. Hemorrhage: No evidence of acute intracranial hemorrhage. Mass Lesion / Mass Effect: There is no evidence of an intracranial mass or extraaxial fluid collection. No significant mass effect. Chronic change: Patchy foci of low attenuation coefficient are present within the supratentorial white matter which is a nonspecific finding but likely represents moderate microvascular ischemia. Bilateral basal ganglia calcifications. Atherosclerotic calcification of the carotid and vertebral arteries. Parenchyma: There is moderate generalized volume loss. The brain parenchyma is otherwise within normal limits for age. Ventricles: The ventricles are within normal limits of size and configuration for age. Paranasal sinuses and skull: The visualized paranasal sinuses are grossly clear. The skull base and imaged soft tissues are unremarkable. Sr Vice President (topogram) images: No additional findings. IMPRESSION: No acute intracranial process. _ Project Analyst: PSCB Transcribe Date/Time: Feb 24 2025 7:42P Dictated by : PRACHI FELIX MD This examination was interpreted and the report reviewed and electronically signed by: PRACHI FELIX MD on Feb 24 2025 7:44PM EST [id number] Normal [facility] Comprehensive metabolic 2000 panelon 02-24-2025 Albumin [Mass/Vol] 3.9 g/dL Normal 3.9-4.9 [facility] Comment on above: Order Comment: Speci men Type: BLOOD SPECIMENOrdering Facility: [facility] Address: [address] [place] [address] Performed By: #### 2 4323-8, 97012-5, TSH, 97484-9, 55875-7 ####[facility] LABORATORYCLIA [id number] [place] [address] [place] ALP [Catalytic activity/Vol] 130 U/L High 34-123 [facility] Comment on above: Order Comment: Speci men Type: BLOOD SPECIMENOrdering Facility: [facility] Address: [address] [place] [address] Performed By: #### 2 4323-8, 40947-0, TSHRF, 24263-0, 93435-6 ####[facility] [facility]ORATORYCLIA [id number] [place] [address] [place] ALT [Catalytic activity/Vol] 13 U/L Normal 7-38 [facility] Comment on above: Order Comment: Speci men Type: BLOOD SPECIMENOrdering Facility: [facility] Address: [address] [place] [address] Performed By: #### 2 4323-8, 40474-2, TSHRF, 35485-8, 02643-3 ####[facility] LABORATORYCLIA [id number] [place] [address] [place] Anion gap [Moles/Vol] 13 mmol/L Normal 8-15 [facility] Comment on above: Order Comment: Speci men Type: BLOOD SPECIMENOrdering Facility: [facility] Address: [address] [place] [address] Performed By: #### 2 4323-8, 91401-8, TSHRF, 74405-7, 53762-6 ####[facility] LABORATORYCLIA [id number] [place] [id number] [place] AST [Catalytic activity/Vol] Normal [facility] Comment on above: Order Comment: Speci men Type: BLOOD SPECIMENOrdering Facility: [facility] Address: [address] [place] [address] Result Comment: Unab le to assay due to interference from hemolysis. Suggest reorder as clinically indicated. Performed By: #### 2 4323-8, 61217-9, TSH, 65004-3, 18286-3 ####[facility] [facility]ORATORYCLIA [id number] [address] [place] Bilirubin [Mass/Vol] 1.4 mg/dL High 0.2-1.3 [facility] Comment on above: Order Comment: Speci men Type: BLOOD SPECIMENOrdering Facility: [facility] Address: [address] [place] [address] Performed By: #### 2 4323-8, 66234-8, TSHRF, 05824-8, 32181-9 ####[place] LABORATORYCLIA [id number] [place] [address] [place] Calcium [Mass/Vol] 8.8 mg/dL Normal 8.5-10.2 [facility] Comment on above: Order Comment: Speci men Type: BLOOD SPECIMENOrdering Facility: [facility] Address: [address] [place] [address] Performed By: #### 2 4323-8, 47662-9, TSHRF, 29760-3, 25333-5 ####[facility] LABORATORYCLIA [id number] [place] [address] [place] Chloride [Moles/Vol] 96 mmol/L Low 98-107 [facility] Comment on above: Order Comment: Johanne soto Type: BLOOD SPECIMENOrdering Facility: [facility] Address: [address] [place] [address] Performed By: #### 2 4323-8, 68640-7, TSH, 96039-2, 07649-4 ####[facility] LABORATORYCLIA [id number] [place] [id number] [place] CO2 [Moles/Vol] 21 mmol/L Low 22-30 [facility] Comment on above: Order Comment: Johanne men Type: BLOOD SPECIMENOrdering Facility: [facility] Address: [address] [place] [address] Performed By: #### 2 4323-8, 28359-4, TSH, 15690-4, 48359-0 ####[place] [facility]ORATORYCLIA [id number] [address] [facility] Creatinine [Mass/Vol] 0.71 mg/dL Normal 0.58-0.96 [facility] Comment on above: Order Comment: Johanne soto Type: BLOOD SPECIMENOrdering Facility: [facility] Address: [address] [place] [address] Performed By: #### 2 4323-8, 93115-6, [facility], 49356-7, 48743-8 ####[place] LABORATORYCLIA [id number] [address] Creatinine and Glomerular filtration rate.predicted panel (S/P/Bld) 85 mL/min/1.73m??? Normal >=60 [facility] Comment on above: Order Comment: Johnane soto Type: BLOOD SPECIMENOrdering Facility: [facility] Address: [address] [place] [address] Result Comment: Hina mated Glomerular Filtration Rate [...] actual GFR. Performed By: #### 2 4323-8, 55787-9, [facility], 86783-7, ####[place] [facility]ORATORYCLIA [id number] [place] [address] [place] Glucose [Mass/Vol] 104 mg/dL High 74-99 [facility] Comment on above: Order Comment: Johanne soto Type: BLOOD SPECIMENOrdering Facility: [facility] Address: [address] [place] [address] Result Comment: The [place] Diabetes Association (ADA) provides guidance for cutoff [...] Standards of Medical Care in Diabetes 2016, [place] Diabetes Association. Diabetes Care. 2016.39(Suppl 1). Performed By: #### 2 4323-8, 61342-1, [facility], 63650-9, ####[place] [facility]ORATORYCLIA [id number] [place] [address] [place] Potassium [Moles/Vol] 4.3 mmol/L Normal 3.7-5.1 [facility] Comment on above: Order Comment: Johanne soto Type: BLOOD SPECIMENOrdering Facility: [facility] Address: [address] [place] [address] Performed By: #### 2 4323-8, 14113-6, [facility], 73284-8, 92998-3 ####[facility] [facility]ORATORYCLIA [id number] [place] [id number] [place] Protein [Mass/Vol] 6.5 g/dL Normal 6.3-8.0 [facility] Comment on above: Order Comment: Johanen soto Type: BLOOD SPECIMENOrdering Facility: [facility] Address: [address] [place], [place] [address] [place] [address] Performed By: #### 2 4323-8, 06130-4, TSHRF, 59055-7, 44126-7 ####[facility] LABORATORYCLIA [id number] [place] [address] [facility] Sodium [Moles/Vol] 130 mmol/L Low 136-144 [facility] Comment on above: Order Comment: Speci men Type: BLOOD SPECIMENOrdering Facility: [facility] Address: [address] [place] [address] [place] [id number] Performed By: #### 2 4323-8, 21806-3, TSHRF, 71574-0, 39001-0 ####[facility] LABORATORYCLIA [id number] [address] [place] Urea nitrogen [Mass/Vol] 6 mg/dL Low 7-21 [facility] Comment on above: Order Comment: Speci men Type: BLOOD SPECIMENOrdering Facility: [facility] Address: [address] [place], [place] [address] Performed By: #### 2 4323-8, 86448-3, TSHRF, 69711-5, 01394-6 ####[facility] LABORATORYCLIA [id number] [address] [facility] ED NOTEon 02-24-2025 ED NOTE HNO ID: [id number] Author: HALEY BAUTISTA RN Service: ? Author Type: Registered Nurse Type: ED Notes Filed: 02/24/2025 16:56 Note Text: Called up and spoke to charge nurse elver farris Rn. And [facility] jen will call back. Normal [facility] ED NOTE HNO ID: [id number] Author: HALEY BAUTISTA RN Service: ? Author Type: Registered Nurse Type: ED Notes Filed: 02/24/2025 16:00 Note Text: Pt amb to rr , does feel lightheaded, not her norm.but no headache, no blurry vision. [facility] ED PROV NOTEon 02-24-2025 ED PROV NOTE HNO ID: [id number] Author: EKITH HART MD Service: ? Author Type: Physician Type: ED Provider Notes Filed: 02/24/2025 16:56 Note Text: ED Provider Note Patient Name: Casandra Henry : 1940 SERVICE DATE: 02/24/25 History Patient presents with: Blood Pressure Check: Pt presents to the ED from home. PT concerned for fluctuating blood pressure. Pt states she has been trying to get it regulated with her PCP and was advised to take an extra beta fidel if she saw a systolic over 200. Pt took a beta fidel prior to arrival. PT states when it gets high she gets a head ache. Pt has no other complaints at this time. Patient is an 84-year-old female coming in for blood pressure check. Patient states she has had trouble with her blood pressure over the last month. Occasionally few she feels dizzy especially if she returns around too fast. She has been checking her blood pressure when she does not feel well and it does elevate up to 200. She was seen in [place] emergency department 2 days ago. Had blood work a CAT scan and chest x-ray. They did tell her to increase one of her meds which she states that she did not do. She does write down 3 blood pressures a day that she has had and its ranged from 120-196. She denies any chest pain any fevers or chills. PAST MEDICAL HISTORY Diagnosis Date Acid reflux Hiatal hernia Hypertension Hypothyroid Palpitation PAST SURGICAL HISTORY Procedure Laterality Date CARPAL TUNNEL 2000 bilateral COLONOSCOPY FLX DX W/COLLJ SPEC WHEN PFRMD 12/05/2013 Colonoscopy done in [facility] FLX W/REMOVAL LESION BY HOT [...] Vaping Use Vaping status: Never Used Substance and Sexual Activity Alcohol use: No Drug use: No Sexual activity: Not on file ALLERGIES Allergen Reactions Gluten Cough Milk Containing Pro* Cough Review of Systems Constitutional: Negative for fever. Respiratory: Negative for shortness of breath. Cardiovascular: Negative for chest pain. Gastrointestinal: Negative for vomiting. Physical Exam Vitals [02/24/25 1206] BP Pulse Temp Temp src Resp SpO2 Weight Height 140/98 69 37.1 ?C (98.8 ?F) Oral 18 98 % 63 kg (138 lb 14.2 oz) -- Physical Exam Vitals reviewed. Constitutional: General: She is not in acute distress. Appearance: She is not ill-appearing. HENT: Head: Normocephalic. Mouth/Throat: Mouth: Mucous membranes are moist. Eyes: Extraocular Movements: Extraocular movements intact. Pupils: Pupils are equal, round, and reactive to light. Cardiovascular: Rate and Rhythm: Normal rate and regular rhythm. Pulmonary: Effort: Pulmonary effort is normal. Breath sounds: Normal breath sounds. Abdominal: Palpations: Abdomen is soft. Tenderness: There is no abdominal tenderness. There is no guarding. Musculoskeletal: General: No swelling or tenderness. Cervical back: Neck supple. Skin: General: Skin is warm. Neurological: General: No focal deficit present. Mental Status: She is alert and oriented to person, place, and time. Sensory: No sensory deficit. Motor: No weakness. Comments: NIH stroke scale is 0 Psychiatric: Mood and Affect: Mood normal. Diagnostic Testing ED Labs Ordered and Reviewed - No data to display Procedures ED Course / Clinical Impression Clinical Impressions as of 02/24/25 1653 Hypertensive urgency Dizziness Hyponatremia MDM / Disposition / Plan Patient's blood pressure here is 140/98. I did have a lengthy discussion regarding blood pressure. I do not want to change her medicines at this time because even her blood pressure dropped to 120 at home at times. She is requesting repeat blood work. I did review [place] emergency department stay. They did a chest x-ray CAT scan and blood work including a troponin that was negative. On reevaluation of the blood pressure was 230s. I repeated it and it was 222. We did give her hydralazine which she has to uses as needed. Patient's blood pressure then improved to the low 180s. Patient ambulated to the bathroom but still just feels a little off. She needs to hold onto the nurse while walking to the bathroom. Labs here show a white count that is normal at 8. Sodium is low at 130. Potassium is normal. I did discuss with Dr. Del Rosario he is requesting an additional CT of t (more content not included)... Normal [facility] EKGon 02-24-2025 Electrocardiogram Ventricular Rate : 6 2 BPM Atrial Rate : 62 BPM P-R Interval : 176 ms QRS Duration : 80 ms Q-T Interval : 438 ms QTC Calculation(Bazett) : 444 ms Calculated P [place] : 54 degrees Calculated R [place] : 9 degrees Calculated T [place] : 43 degrees NORMAL SINUS RHYTHM NORMAL ECG No Stemi Confirmed by KEITH HART MD ([id number]) on 02/24/2025 12:57:54 PM NAME : CASANDRA HENRY PID : [id number] : 1940 Gender : Female Race : ORD : Procedure Date : Feb 24 2025 12:53:40 Edit Date : Feb 24 2025 12:57:58 Diagnosis: NORMAL SINUS RHYTHM NORMAL ECG No Stemi Confirmed by KEITH HART MD ([id number]) on 02/24/2025 12:57:54 PM Test Reason : Location : 1 : ER ED Overread By : KEITH HART MD Edited By : KEITH HART MD Referred By : , Acquired by : Elaine alexander [facility] HISTORY PHYSICALon HISTORY PHYSICAL HNO ID: [id number] Author: JEREMIAH DEL ROSARIO MD Service: Hospital Medicine Author Type: Physician Type: H&P Filed: 02/24/2025 20:36 Note Text: DEPARTMENT OF HOSPITAL MEDICINE HISTORY AND PHYSICAL EXAM SERVICE DATE: 02/24/2025 Code Status: Not on file SERVICE TIME: 4:34 PM Primary Care Physician: Sreekanth Cortez DO NIGHT AND WEEKEND COVERAGE: [place] COVERAGE: Days: [phone], please page attending physician. Nights: [phone], please page [facility] Night coverage pager [phone]. Subjective CHIEF COMPLAINT: Dizziness, High BP HPI: A 84-year-old female with past medical history of hypertension, hypothyroidism, anemia, hyperlipidemia, CKD, GERD, dizziness, history of SVT, history of hemorrhoids presented to the emergency department with complaints of dizziness and elevated blood pressure. History was garnered via chart review and speaking with patient/family member. Patient states that over the past few months has been noticing uncontrolled blood pressure. Blood pressures would fluctuate greatly. When she notices that her blood pressure is elevated she feels bad. The discomfort she feels is usually dizziness and feeling spaced out. Has had episodes of presyncope. No chest pain or shortness of breath. Has noted some lower extremity swelling however appears to be chronic in nature. Patient states that dizziness has been getting worse. Has occurred every single day. Recently was admitted to the emergency department for blood pressure control. Per patient CT was done which was nonsignificant. Does endorse having some right arm paresthesia on occasion. No other numbness, weakness, slurring of speech, drooping of face or visual disturbances. Due to recurrence of symptoms patient decided come to the ED for further evaluation and treatment. In the emergency department patient was noted to have elevated blood pressure, saturating well on room air. Hyponatremia, hyperglycemia, elevated bilirubin elevated alkaline phosphatase, normal CBC nonsignificant UA. No microbiology sent. EKG in the emergency department shows normal sinus rhythm. Lab investigations show in the ED patient was given hydralazine and IV fluids. PAST MEDICAL HISTORY Diagnosis Date Acid reflux Hiatal hernia Hypertension Hypothyroid Palpitation PAST SURGICAL HISTORY Procedure Laterality Date CARPAL TUNNEL 2000 bilateral COLONOSCOPY FLX DX W/COLLJ SPEC WHEN PFRMD 12/05/2013 Colonoscopy done in [facility] FLX W/REMOVAL LESION BY HOT [...] MEDICATIONS: (Not in a hospital admission) ALLERGIES Allergen Reactions Gluten Cough Milk Containing Pro* Cough REVIEW OF SYSTEM: NEGATIVE EXCEPT FOR THE BOLDED: General: No fevers, chills, sweats, or weight change, generalized weakness Eye: Denies recent visual problems, redness, or discharge ENMT: Denies ear pain, nasal congestion, sore throat Cardiovascular: Denies Chest pain, palpitations, fainting, pressure, or swelling Respiratory: Denies shortness of breath, cough Gastrointestinal: Denies nausea, vomiting, diarrhea, constipation, and indigestion Genitourinary: Denies incontinence, frequency, urgency, nocturia, or hematuria Musculoskeletal: No back pain, neck pain, joint pain, muscle pain, decreased range of motion Integumentary: No rash, itching, abrasions Neurologic: No numbness, tingling, or headaches outside of baseline, dizziness Psychiatric: Denies anxiety, depression Endocrine: Negative for excessive thirst, excessive hunger Hematologic/Lymphatic: Negative for bruising tendency, swollen lymph glands Allergic and Immunologic: No pruritus. No Swelling. Objective PHYSICAL EXAM: BP 188/84 Pulse 68 Temp (Src) 98.8 (Oral) Resp 18 Wt 138 lb 14.2 oz (63.0kg) SpO2 94% O2 Therapy: Room Air Physical Exam Performed: Constitutional: In no apparent distress. Vital signs stable Eye: Pupils are equal. Extraocular motions intact ENMT: No visible external trauma. Hearing grossly intact. Neck: No Jugular Vein Distention Cardiovascular: Regular rate and rhythm. S1 and S2 Respiratory: Chest with clear breath sounds bilaterally Gastrointestinal: Soft, without detectable tenderness. No sign of distention (more content not included)... Normal [facility] HbA1c (Bld)on 02-24-2025 Average glucose Estimated from glycated hemoglobin (Bld) [Mass/Vol] 108 mg/dL Normal [facility] Comment on above: Order Comment: Johanne soto Type: BLOOD SPECIMENOrdering Facility: [facility] Address: [address] [place] [address] Result Comment: eAG: (Estimated average glucose) is a calculated value from HgbA1c and is ict sales representative of the average blood glucose level in the last 2-3 month period. Performed By: #### 5 5454-3 ####[facility] LABCLIA [id number] [place] [address] [place]#### 42245-7 ####[place] [facility]ATORY[facility]IA [id number] [place] [address] [place] HbA1c (Bld) [Mass fraction] 5.4 % Normal 4.3-5.6 [facility] Comment on above: Order Comment: Johanne soto Type: BLOOD SPECIMENOrdering Facility: [facility] Address: [address] [place] [address] Result Comment: Amer ican Diabetes Association guidelines indicate that patients with HgbA1c in the range 5.7-6.4% are at increased risk for development of diabetes, and intervention by lifestyle modification may be beneficial. HgbA1c greater or equal to 6.5% is considered diagnostic of diabetes. Performed By: #### 5 5454-3 ####[facility] LABCLIA [id number] [address] [place]#### 06978-5 ####[facility]ATORYCLIA [id number] [place] [address] [facility] Lipid 1996 panelon 5 Cholesterol [Mass/Vol] 171 mg/dL Normal <200 [facility] Comment on above: Order Comment: Sheilai men Type: BLOOD SPECIMENOrdering Facility: [facility] Address: [address] [place] [address] Result Comment: <200 mg/dL, Desirable 200-239 mg/dL, Borderline high >239 mg/dL, High Performed By: #### 2 4323-8, 92398-0, TSHRF, 16940-6, 20277-6 ####[facility]ORYCLIA [id number] [address] Cholesterol in HDL [Mass/Vol] 62 mg/dL Normal >39 [facility] Comment on above: Order Comment: Sheilai men Type: BLOOD SPECIMENOrdering Facility: [facility] Address: [address] [place] [address] Result Comment: 40-5 9 mg/dL, Acceptable >59 mg/dL, High: Negative risk factor for coronary heart disease <40 mg/dL, Low: Positive risk factor for coronary heart disease Performed By: #### 2 4323-8, 78743-2, TSHRF, 30389-3, 45405-1 ####[facility]ATORYCLIA [id number] [place] [address] [facility] Cholesterol in LDL [Mass/Vol] 84 mg/dL Normal <100 [facility] Comment on above: Order Comment: Sheilai men Type: BLOOD SPECIMENOrdering Facility: [facility] Address: [address] [place] [address] Result Comment: <100 mg/dL, Optimal 100-129 mg/dL, Near optimal/above optimal 130-159 mg/dL, Borderline high 160-189 mg/dL, High >189 mg/dL, Very high Secondary prevention optimal LDL Cholesterol levels are recommended to be <70 mg/dL LDL cholesterol is calculated using the Wolff-NIH equation. Performed By: #### 2 4323-8, 08339-1, TSH, 11842-7, ####[facility]ATORYCLIA [id number] [place] [address] [place] Cholesterol in LDL/Cholesterol in HDL [Mass ratio] 1.35 {ratio} Normal <2.54 [facility] Comment on above: Order Comment: Speci men Type: BLOOD SPECIMENOrdering Facility: [facility] Address: [address] [place] [address] Result Comment: Refe rence: 1. National Cholesterol Education Program ATP III Guideline At-A-Glance Quick Desk Reference: National Heart, Lung, and Blood [place]. National Institutes of Health. 2001: NIH Publication No. 01-3305. 2. An International Atherosclerosis Society position paper: global recommendations for the management of dyslipidemia: executive summary, Atherosclerosis. 2014: 232(2):410-413. Performed By: #### 2 4323-8, 26088-3, [facility], 54437-2, ####[facility]ATORYCLIA [id number] [place] [address] [place] Cholesterol in VLDL [Mass/Vol] 22 mg/dL Normal <30 [facility] Comment on above: Order Comment: Speci men Type: BLOOD SPECIMENOrdering Facility: [facility] Address: [address] [place] [address] Performed By: #### 2 4323-8, 51331-6, TSH, 68452-9, ####[facility]ATORYCLIA [id number] [place] [address] [place] Cholesterol non HDL [Mass/Vol] 109 mg/dL Normal <130 [facility] Comment on above: Order Comment: Speci men Type: BLOOD SPECIMENOrdering Facility: [facility] Address: [address] [place] [address] Result Comment: <130 mg/dL, Optimal 130-159 mg/dL, Near optimal/above optimal 160-189 mg/dL, Borderline high 190-219 mg/dL, High >219 mg/dL, Very high Secondary prevention optimal non HDL Cholesterol levels are recommended to be <100 mg/dL Performed By: #### 2 4323-8, 30232-0, TSHRF, 52377-7, ####[facility]ORATORYCLIA [id number] [place] [address] [place] Cholesterol.total/Choles terol in HDL [Mass ratio] 2.76 {ratio} Normal <5.10 [facility] Comment on above: Order Comment: Speci men Type: BLOOD SPECIMENOrdering Facility: [facility] Address: [address] [place] [address] Performed By: #### 2 4323-8, 95969-9, TSH, 65801-2, ####[facility]ATORYCLIA [id number] [place] [address] [place] FASTING TIME Normal [facility] Comment on above: Order Comment: Speci men Type: BLOOD SPECIMENOrdering Facility: [facility] Address: [address] [place] [address] Result Comment: Unkn own Performed By: #### 2 4323-8, 92920-7, TSHRF, 81202-7, ####[facility]ORATORYCLIA [id number] [place] [id number] [place] Triglyceride [Mass/Vol] 144 mg/dL Normal <150 [facility] Comment on above: Order Comment: Speci men Type: BLOOD SPECIMENOrdering Facility: [facility] Address: [address] [place] [address] Result Comment: <150 mg/dL, Normal 150-199 mg/dL, Borderline high 200-499 mg/dL, High >499 mg/dL, Very high Performed By: #### 2 4323-8, 66745-5, TSHRF, 47120-6, ####[facility] [facility]ATORYCLIA [id number] [place] [address] [place] Magnesium [facility] Magnesium [Mass/Vol] 2.1 mg/dL Normal 1.7-2.3 [facility] Comment on above: Order Comment: Speci men Type: BLOOD SPECIMENOrdering Facility: [facility] Address: [address] [place] [address] Performed By: #### 2 4323-8, 65008-0, TSH, 89775-0, ####[facility] [facility]ATORYCLIA [id number] [place] [address] [place] [facility] Natriuretic peptide.B prohormone N-Terminal [Mass/Vol] 386 pg/mL Normal <450 [facility] Comment on above: Order Comment: Speci men Type: BLOOD SPECIMENOrdering Facility: [facility] Address: [address] [place] [address] Performed By: #### 2 4323-8, 05590-6, [facility], 59872-4, ####[facility]ATORYCLIA [id number] [place] [id number] [place] Osmolality Uron 02-24-2025 Osmolality (U) [Osmolality] 375 mosm/kg Normal 50-1200 [facility] Comment on above: Order Comment: Speci men Type: URINE SPECIMENOrdering Facility: [facility] Address: [address] [place] [address] Performed By: #### 2 695-5 ####[facility] LABCLIA [id number] [place] [id number] [place] Sodium ?Tm Ur-sCncon 025 Sodium Unsp time (U) [Moles/Vol] 77 mmol/L Normal 14-216 [facility] Comment on above: Order Comment: Speci men Type: URINE SPECIMEN [facility] Address: [address] [place] [address] Performed By: #### U ACR, 19443-0, UUNR #### [facility] CLIA [id number] [address] [place] [address] [place] TSH W/REFLEX FT4on 5 TSH Qn 1.520 m[IU]/L Normal 0.270-4.200 [facility] Comment on above: Order Comment: Speci men Type: BLOOD SPECIMENOrdering Facility: [facility] Address: [address] [place] [address] Performed By: #### 2 4323-8, 40212-3, TSHRF, 45740-4, 10766-0 ####[facility] [facility]ATORYCLIA [id number] [place] [address] [place] UREA NITROGEN, RANDOM URINEo n 02-24-2025 UREA NITROGEN,UR,RAN 217 mg/dL Normal 140-1500 [facility] Comment on above: Order Comment: Speci men Type: URINE SPECIMEN [facility] Address: [address] [place] [address] Performed By: #### U ACR, 26809-4, UUNR #### [facility] CLIA [id number] [address] [place] [address] [place] US KIDNEY/BLADDERon 02-25-20 25 US KIDNEY/BLADDER * * *Final Report* * * DATE OF EXAM: Feb 24 2025 7:03PM MDU 1055 - US KIDNEY/BLADDER / PROCEDURE REASON: Kidney failure, chronic * * * * Physician Interpretation * * * * EXAMINATION: RENAL ULTRASOUND CLINICAL HISTORY: Chronic kidney failure TECHNIQUE: Sonography of the kidneys and urinary bladder was performed. Images were obtained and stored in a permanent archive. MQ: UR_1 COMPARISON: 08/11/2023 RESULT: Right Kidney: -Renal length: 10.2 cm -Parenchyma: Normal parenchymal echogenicity. Normal parenchymal thickness. -Collecting system: No hydronephrosis. -Calculus: No echogenic, shadowing calculus. -Lesion: Small upper pole right renal cyst measuring 7 mm Left Kidney: -Renal length: 9.5 cm -Parenchyma: Normal parenchymal echogenicity. Normal parenchymal thickness. -Collecting system: No hydronephrosis. -Calculus: No echogenic, shadowing calculus. -Lesion: Interpolar cyst of left kidney measuring approximately 3.2 x 3.6 x 3.4 cm. Cyst appears simple in nature. Smaller cyst upper pole left kidney measuring 1.1 cm. Pelvic left renal cyst measuring 1.4 cm. Bladder: Normal sonographic appearance. IMPRESSION: Bilateral renal cysts with no hydronephrosis seen. Project Analyst: DELIA Transcribe Date/Time: Feb 24 2025 9:01P Dictated by : LINDA COURTNEY MD This examination was interpreted and the report reviewed and electronically signed by: LINDA COURTNEY MD on Feb 24 2025 9:03PM EST [id number] Normal [facility] Urinalysis complete panel (U )on 02-24-2025 Bilirubin Ql (U) Negative Normal Negative [facility] Comment on above: Order Comment: Speci men Type: URINE SPECIMENOrdering Facility: [facility] Address: [address] [place] [address] Performed By: #### 2 4356-8 ####[facility] [facility]ORATORYCLIA [id number] [address] [place] Clarity (Unsp spec) Slightly Cloudy Abnormal Clear [facility] Comment on above: Order Comment: Speci men Type: URINE SPECIMENOrdering Facility: [facility] Address: [address] [place] [address] Performed By: #### 2 4356-8 ####[facility]ATORYCLIA [id number] [place] [address] [place] Color (U) Yellow Normal Yellow [facility] Comment on above: Order Comment: Speci men Type: URINE SPECIMENOrdering Facility: [facility] Address: [address] [place] [address] Performed By: #### 2 4356-8 ####[facility]ATORYCLIA [id number] [place] [address] [place] Epithelial cells LM.HPF (Urine sed) [#/Area] Few Normal [facility] Comment on above: Order Comment: Speci men Type: URINE SPECIMENOrdering Facility: [facility] Address: [address] [place] [address] Performed By: #### 2 4356-8 ####[facility]ORATORYCLIA [id number] [place] [address] [place] [facility] [place] Glucose Test strip (U) [Mass/Vol] Negative Normal Negative [facility] Comment on above: Order Comment: Speci men Type: URINE SPECIMENOrdering Facility: [facility] Address: [facility] [place] [address] Performed By: #### 2 4356-8 ####[facility]ATORYCLIA [id number] [place] [address] [place] Hemoglobin Ql (U) Negative Normal Negative [facility] Comment on above: Order Comment: Speci men Type: URINE SPECIMENOrdering Facility: [facility] Address: [address] [place] [address] Performed By: #### 2 4356-8 ####[facility]ORYCLIA [id number] [address] [place] Ketones Ql (U) Negative Normal Negative [facility] Comment on above: Order Comment: Speci men Type: URINE SPECIMENOrdering Facility: [facility] Address: [address] [place] [address] Performed By: #### 2 4356-8 ####[facility]ORYCLIA [id number] [address] Leukocyte esterase Test strip Ql (U) Trace Abnormal Negative [facility] Comment on above: Order Comment: Speci men Type: URINE SPECIMENOrdering Facility: [facility] Address: [address] [place] [address] Performed By: #### 2 4356-8 ####[facility]ORYCLIA [id number] [place] [address] [place] Nitrite Ql (U) Negative Normal Negative [facility] Comment on above: Order Comment: Speci men Type: URINE SPECIMENOrdering Facility: [facility] Address: [address] [place] [address] Performed By: #### 2 4356-8 ####[facility]ORATORYCLIA [id number] [place] [address] [place] pH (U) 7.5 [pH] Normal 5.0-8.0 [facility] Comment on above: Order Comment: Speci men Type: URINE SPECIMENOrdering Facility: [facility] Address: [address] [place] [address] Performed By: #### 2 4356-8 ####[facility]ATORYCLIA [id number] [address] [place] Protein (U) [Mass/Vol] Negative Normal Negative [facility] Comment on above: Order Comment: Speci men Type: URINE SPECIMENOrdering Facility: [facility] Address: [address] [place] [address] Performed By: #### 2 4356-8 ####[place] [facility]ORYCLIA [id number] [address] RBC LM.HPF (Urine sed) [#/Area] 0-3 /HPF Normal 0-3 /HPF [facility] Comment on above: Order Comment: Speci men Type: URINE SPECIMENOrdering Facility: [facility] Address: [address] [place] [address] Performed By: #### 2 4356-8 ####[facility] [facility]ATORYCLIA [id number] [address] Specific gravity (U) [Rel density] <=1.005 Low 1.005-1.030 [facility] Comment on above: Order Comment: Speci men Type: URINE SPECIMENOrdering Facility: [facility] Address: [address] [place] [address] Performed By: #### 2 4356-8 ####[facility] [facility]ORYCLIA [id number] [address] Urobilinogen Ql (U) 0.2 EU/dL Normal 0.2-1.0 EU/dL [facility] Comment on above: Order Comment: Speci men Type: URINE SPECIMENOrdering Facility: [facility] Address: [address] [place] [address] Performed By: #### 2 4356-8 ####[facility] [facility]ATORYCLIA [id number] [address] [place] WBC LM.HPF (Urine sed) [#/Area] 0-5 /HPF Normal 0-5 /HPF [facility] Comment on above: Order Comment: Speci men Type: URINE SPECIMENOrdering Facility: [facility] Address: [address] [place] [address] Performed By: #### 2 4356-8 ####[facility] [facility]ATORYCLIA [id number] [address] 12 Lead EKGon 02-22-2025 12 Lead EKG [facility] [address] [place] [address] 12 Lead EKG 02/22/25 0708 MR#: [id number] Acct: [id number] Name: CASANDRA HENRY Rep #: [id number] : 1940 84 From: Sidney Lewis MD Attending Dr: Status: DEP ER Ordering Dr: Devaughn Farmer DO Date: 5 Location: ED Sex: F C Admitted: Test Reason : HTN Blood Pressure : */* mmHG Vent. Rate : 90 BPM Atrial Rate : 90 BPM P-R Int : 176 ms QRS Dur : 82 ms QT Int : 386 ms P-R-T Axes : 68 15 127 degrees QTcB Int : 472 ms Normal sinus rhythm Nonspecific ST and T wave abnormality Abnormal ECG Confirmed by EDNA TAYLOR, SIDNEY ([id number]), editorial specialist CHYNA RUIZ ([id number]) on 02/26/2025 10:25:55 AM Referred By: Confirmed By: SIDNEY LEWIS MD 02/26/25 1025 Date Sidney Lewis MD CC: Dr. Devaughn Farmer DO; Dr. Sreekanth Cortez DO Signed Normal [facility] Absolute lymphocyte countOrd ered By: Devaughn Farmer on 02-22-2025 Lymphocytes Auto (Unsp spec) [#/Vol] 1.86 10*3/uL 0.83-4.51 [facility] Absolute neutrophil countOrd ered By: Devaughnmakenzie Farmer on 02-22-2025 Neutrophils (Bld) [#/Vol] 5.1 10*3/uL 2.0-7.7 [facility] Anion gap in Serum or Plasma Ordered By: Devaughn Alyson on 02-22-2025 Anion gap [Moles/Vol] 12 mmol/L 5-15 [facility] Automated lymphocyte count a s percentage of total leukocytesOrdered By: Devaughnmakenzie Farmer on 02-22-2025 Lymphocytes/100 WBC Auto (Unsp spec) 21.6 % 19-41 [facility] BUN/creatinine ratioOrdered By: [facility] HospitalmalouRichardBoris on 02-22-2025 Urea nitrogen/Creatinine [Mass ratio] 9.8 mg/mg Low 10-20 [facility] Basic Metabolic Profile (BMP )on 02-22-2025 BUN/CRE 9.8 RATIO Low 10-20 [facility] Comment on above: Performed By: #### L 500.2500, L503.7505, L501.4021, L100.0100 #### [facility] [address] [place], [address] Calcium [Mass/Vol] 9.0 mg/dL Normal 7.6-11.0 [facility] Comment on above: Performed By: #### L 500.2500, L503.7505, L501.4021, L100.0100 #### [facility] [address] [place], [address] Chloride [Moles/Vol] 100 mmol/L Normal 98-108 [facility] Comment on above: Performed By: #### L 500.2500, L503.7505, L501.4021, L100.0100 #### [facility] [address] [place], [address] CO2 [Moles/Vol] 22.8 mmol/L Normal 21.0-32.0 [facility] Comment on above: Performed By: #### L 500.2500, L503.7505, L501.4021, L100.0100 #### [facility] [address] [place], [address] Creatinine [Mass/Vol] 0.78 mg/dL Normal 0.70-1.20 [facility] Comment on above: Performed By: #### L 500.2500, L503.7505, L501.4021, L100.0100 #### [facility] [address] [place], [address] ECRCL 46.32 ml/min Low 50-250 [facility] Comment on above: Performed By: #### L 500.2500, L503.7505, L501.4021, L100.0100 #### [facility] [address] [place], [address] GAP 12 Normal 5-15 [facility] Comment on above: Performed By: #### L 500.2500, L503.7505, L501.4021, L100.0100 #### [facility] [address] [place], [address] GFR/1.73 sq M.predicted among non-blacks MDRD (S/P/Bld) [Vol rate/Area] 76 mL/min/{1.73_m2} Normal >60 [facility] Comment on above: Result Comment: mL/m in/1.73m2 CKD-EPI Creatinine Equation (2020) Performed By: #### L 500.2500, L503.7505, L501.4021, L100.0100 #### [facility] [address] [place], [address] Glucose [Mass/Vol] 114 mg/dL High 70-99 [facility] Comment on above: Performed By: #### L 500.2500, L503.7505, L501.4021, L100.0100 #### [facility] [address] [place], [address] Potassium [Moles/Vol] 4.0 mmol/L Normal 3.3-5.1 [facility] Comment on above: Performed By: #### L 500.2500, L503.7505, L501.4021, L100.0100 #### [facility] [address] [place], [address] Sodium [Moles/Vol] 134 mmol/L Normal 133-145 [facility] Comment on above: Performed By: #### L 500.2500, L503.7505, L501.4021, L100.0100 #### [facility] [address] [place], [address] Urea nitrogen [Mass/Vol] 8 mg/dL Normal 4-19 [facility] Comment on above: Performed By: #### L 500.2500, L503.7505, L501.4021, L100.0100 #### [facility] [address] [place], [address] Basophil percentageOrdered B y: Devaughn Farmer on 02-22-2025 Basophils/100 WBC (Bld) 0.5 % 0-[address] [facility] Brain/Head without Contrasto n 02-22-2025 Brain/Head without Contrast [facility] Imaging Services [address] [place] [address] Brain/Head without Contrast MR#: [id number] Acct: [id number] Name: CASANDRA HENRY Rep #: [id number] : 1940 F 84 From: Pasquale Mendoza MD PCP: Dr. Sreekanth Cortez, DO Status: REG ER Study: Brain/Head without Contrast Date of Exam: 11/14 Exam# [id number] Ordering Dr: Devaughn Farmer DO EXAM: NONCONTRAST CT SCAN OF THE HEAD CLINICAL HISTORY: Headache, hypertension COMPARISON: June 29, 2023 TECHNIQUE: Serial axial series through the head were obtained without contrast. 2-D coronal and sagittal reformats were then obtained. FINDINGS: Brain: There is no acute large territorial infarct, intracranial hemorrhage, midline shift or mass effect. There are atherosclerotic vascular calcifications involving the bilateral carotid siphons. There is low- density in the deep white matter in the right and left consistent with chronic ischemic change, similar to the prior. The sella and pineal gland regions appear unremarkable. There is no evidence of cerebellar tonsillar herniation. A punctate calcification is noted in the left insular region, and right occipital lobe, unchanged. Ventricles: There is no acute hydrocephalus. Basilar cisterns are patent. Paranasal sinuses: Well-aerated Mastoid air cells: Well-aerated. Calvarium: The bony calvarium is intact. Orbits: The bilateral globes are symmetric, without retrobulbar compressive mass lesion or hemorrhage. CT/Brain/Head without Contrast IMPRESSION: There is low-density in the deep white matter in the right and left consistent with chronic ischemic change, similar to the prior. No acute intracranial pathology. Reading Location: [facility] CC: Dr. Devaughn Farmer, DO; Dr. Sreekanth Cortez, DO Project Analyst: Signed Normal [facility] CBC W/Diff, Automatedon 07-0 Absolute Lymph 1.86 X10 3/uL Normal 0.83-4.51 [facility] Comment on above: Performed By: #### L 500.2500, L503.7505, L501.4021, L100.0100 #### [facility] [address] [place], [address] Absolute Neut 5.1 X10 3/uL Normal 2.0-7.7 [facility] Comment on above: Performed By: #### L 500.2500, L503.7505, L501.4021, L100.0100 #### [facility] [address] [place], [address] Basophils/100 WBC (Bld) 0.5 % Normal 0-[address] [facility] Comment on above: Performed By: #### L 500.2500, L503.7505, L501.4021, L100.0100 #### [facility] [address] [place], [address] Eosinophils/100 WBC (Bld) 7.3 % High 0-5 [facility] Comment on above: Performed By: #### L 500.2500, L503.7505, L501.4021, L100.0100 #### [facility] [address] [place], [address] Erythrocyte distribution width (RBC) [Ratio] 12.1 % Normal 11.6-14.6 [facility] Comment on above: Performed By: #### L 500.2500, L503.7505, L501.4021, L100.0100 #### [facility] [address] [place], [address] Hematocrit (Bld) [Volume fraction] 36.6 % Low 37-47 [facility] Comment on above: Performed By: #### L 500.2500, L503.7505, L501.4021, L100.0100 #### [facility] [address] [place], [address] Hemoglobin (Bld) [Mass/Vol] 12.6 g/dL Normal 12.0-15.0 [facility] Comment on above: Performed By: #### L 500.2500, L503.7505, L501.4021, L100.0100 #### [facility] [address] [place], [address] IG% 0.500 Normal 0.0-0.9 [facility] Comment on above: Result Comment: IG% - Immature Granulocytes (promyelocytes, myelocytes and metamyelocytes) > 1% indicates that a LEFT SHIFT is Present. Performed By: #### L 500.2500, L503.7505, L501.4021, L100.0100 #### [facility] [address] [place], [address] Lymphocytes/100 WBC (Bld) 21.6 % Normal 19-41 [facility] Comment on above: Performed By: #### L 500.2500, L503.7505, L501.4021, L100.0100 #### [facility] [address] [place], [address] MCH (RBC) [Entitic mass] 30.4 pg Normal 27.0-32.0 [facility] Comment on above: Performed By: #### L 500.2500, L503.7505, L501.4021, L100.0100 #### [facility] [address] [place], [address] MCHC (RBC) [Mass/Vol] 34.4 g/dL Normal 32-36 [facility] Comment on above: Performed By: #### L 500.2500, L503.7505, L501.4021, L100.0100 #### [facility] [address] [place], [address] MCV (RBC) [Entitic vol] 88.4 fL Normal 81-99 [facility] Comment on above: Performed By: #### L 500.2500, L503.7505, L501.4021, L100.0100 #### [facility] [address] [place], [address] Monocytes/100 WBC (Bld) 11.4 % High 0-[address] [facility] Comment on above: Performed By: #### L 500.2500, L503.7505, L501.4021, L100.0100 #### [facility] [address] [place], [address] Neutrophils/100 WBC (Bld) 58.7 % Normal 47-70 [facility] Comment on above: Performed By: #### L 500.2500, L503.7505, L501.4021, L100.0100 #### [facility] [address] [place], [address] Nucleated RBC (Bld) [#/Vol] 0 10*3/uL Normal 0-5 [facility] Comment on above: Performed By: #### L 500.2500, L503.7505, L501.4021, L100.0100 #### [facility] [address] [place], [address] Platelet mean volume (Bld) [Entitic vol] 9.4 fL Normal 6.2-12.0 [facility] Comment on above: Performed By: #### L 500.2500, L503.7505, L501.4021, L100.0100 #### [facility] [address] [place], [address] Platelets (Bld) [#/Vol] 285 10*3/uL Normal 150-450 [facility] Comment on above: Performed By: #### L 500.2500, L503.7505, L501.4021, L100.0100 #### [facility] [address] [place], [address] RBC (Bld) [#/Vol] 4.14 10*6/uL Low 4.2-5.4 [facility] Comment on above: Performed By: #### L 500.2500, L503.7505, L501.4021, L100.0100 #### [facility] [address] [place], [address] RDW SD 39.2 fl Normal 35.1-43.9 [facility] Comment on above: Performed By: #### L 500.2500, L503.7505, L501.4021, L100.0100 #### [facility] [address] [place], [address] WBC (Bld) [#/Vol] 8.6 10*3/uL Normal 4.4-11.0 [facility] Comment on above: Performed By: #### L 500.2500, L503.7505, L501.4021, L100.0100 #### [facility] [address] [place], [address] Carbon dioxide, total [Moles /volume] in Central venous bloodOrdered By: Devaughn Farmer on 02-22-2025 CO2 [Moles/Vol] 22.8 mmol/L 21.0-32.0 [facility] Chest PA and Lateralon 02-22 Chest PA and Lateral [facility] Imaging Services [address] [place] [address] Chest PA and Lateral MR#: [id number] Acct: [id number] Name: CASNADRA HENRY Rep #: [id number] : 1940 F 84 From: Pasquale Mendoza MD PCP: Dr. Sreekanth Cortez DO Status: REG ER Study: Chest PA and Lateral Date of Exam: 02/22/25 Exam# [id number] Ordering Dr: Devaughn Farmer DO PROCEDURE: CHEST PA AND LATERAL 02/22/2025 REASON FOR EXAM: HTN TECHNIQUE: CHEST PA AND LATERAL COMPARISON: None FINDINGS: Heart size and mediastinal configuration are within normal limits. There is no focal infiltrate or consolidation. There is no pneumothorax or effusion. Aortic calcifications are visible. There is no acute bony abnormality. RAD/Chest PA and Lateral IMPRESSION: No acute process is identified in the chest. Reading Location: [facility] CC: Dr. Devaughn Farmer DO; Dr. Sreekanth Cortez DO Project Analyst: Signed Normal [facility] Chloride assayOrdered By: Orlando Farmer on 02-22-2025 Chloride [Moles/Vol] 100 mmol/L 98-108 [facility] Emergency Department Summary on 02-22-2025 Emergency Department Summary [facility] Medical Records Department [address] [place] [address] Emergency Department Summary 02/22/25 MR#: [id number] Acct: [id number] Name: CASANDRA HENRY Rep #: [id number] : 1940 84 From: Devaughn Farmer DO PCP: Dr. Sreekanth Cortez, DO Status:REG ER Location: ED HPI History of Present Illness Chief Complaint: Hypertension Narrative Narrative: Chief complaint and HPI: Hypertension. 84-year-old female with past medical history of HTN, hypothyroidism presents for evaluation of HTN. Patient states for the past month she has been having uncontrolled hypertension. She followed up with her primary care physician on 02/05 in which her medications were changed. She states that she was on losartan 50 mg twice daily as well as metoprolol 50 mg twice daily. States that she was taken off of the metoprolol and instead placed on carvedilol 12.5 mg BID. She was also written for hydralazine 25 mg 3 times daily as needed for blood pressure greater than 140/90. Patient states that she has been monitoring her blood pressure closely and it ranges frequently. Patient states last night her SBP was in the 200s. She she took hydralazine with some improvement however this morning it increased today which is why she presents. She states when her blood pressure elevates she feels unwell. Symptoms are intermittent and include headache, blurred vision, tingling, nausea, shortness of breath. Patient currently at this time is only endorsing mild headache and nausea. She denies any fever, chills, URI symptoms, chest pain, abdominal pain. Review of systems: See HPI Medications: As listed on the chart Allergies: As listed on the chart PFSH: Per chart Vital signs: As listed on the chart. Reviewed. Physical exam: Gen: A O x3, NAD Head: Normocephalic, atraumatic Eyes: No sclera icterus, conjunctiva clear ENT: Moist mucous membranes Neck: Trachea midline, No JVD CV: RRR, no murmurs, no peripheral edema Resp: Lungs CTA BL, no w/r/c GI: Abd soft, non-distended, non-tender, no r/r/g Musc: Full ROM, no deformity Skin: Warm, dry Neuro: Alert, oriented, grossly intact, sensation intact Psych: Cooperative, appropriate mood and affect [facility] Medical History (Updated 02/22/25 @ 07:[address] Devaughn Farmer, DO) Hypertension Home Medications ???Medication ???Instructions ???Recorded ???Last Taken ???Type levothyroxine 100 mcg tablet 100 mcg PO BREAKFAST 08/21/16 1 Da y Ago History 10/02/17 losartan 50 mg tablet 50 mg PO BID BP CTRL 10/03/17 1 Da y Ago History 10/02/17 carvedilol 12.5 mg tablet 12.5 mg PO BID blood pressure 11/14 Unknown History furosemide 20 mg tablet 20 mg PO DAILY 02/22/25 Unknown Hi story hydralazine 25 mg tablet 25 mg PO TID PRN PRN htn 02/22/25 Unknown History Allergy/AdvReac Type Severity Reaction Status Date / Time gluten AdvReac Nausea/Vom/ Verified 02/22/25 06:07 Diarrhea Surgical History (Updated 03/20/23 @ 17:[address] Frederick Carrasco DO) History of carpal tunnel surgery Social History Smoking Status: Never smoker EXAM Physical Exam Const Vital Signs: 02/22/25 06:07 02/22/25 06:07 02/22/25 06:15 Temperature 98 F Temperature Source Oral Pulse Rate 77 72 Respiratory Rate 16 16 Respiratory Effort Short of Breath Blood Pressure 194/98 H 201/85 H Blood Pressure Mean 130 118 Pulse Ox 98 97 Oxygen Delivery Method Room Air Room Air 02/22/25 06:30 02/22/25 06:45 02/22/25 07:07 Temperature Temperature Source Pulse Rate 75 75 100 Respiratory Rate 13 18 16 Respiratory Effort Blood Pressure 195/90 H 200/60 H 150/70 H Blood Pressure Mean 116 101 96 Pulse Ox 98 98 97 Oxygen Delivery Method Room Air Room Air MDM MDM MDM Narrative Medical decision making narrative: 84-year-old female with past medical history of HTN, hypothyroidism presents for evaluation of HTN. Patient states for the past month she has been having uncontrolled hypertension. She followed up with her primary care physician on 02/05 in which her medications were changed. She states that she was on losartan 50 mg twice daily as well as metoprolol 50 mg twice daily. States that she was taken off of the metoprolol and instead placed on carvedilol 12.5 mg BID. She was also written for hydralazine 25 mg 3 times daily as needed for blood pressure greater than 140/90. Patient states since this change her blood pressure has been fluctuating frequently. She brought values for me to review. The lowest SBP in the 130s, the highest in the 200s. On chart review, patient has an appointment on 04/04/[address] Lewis. On presentation, patient in no acute distress however her blood pressure is 194/98. Diffe (more content not included)... Normal [facility] Eosinophil percentageOrdered By: Devaughn Farmer on 02-22-2025 Eosinophils/100 WBC (Bld) 7.3 % High 0-5 [facility] Erythrocyte distribution wid th ratioOrdered By: [facility] HospitalAlyson on 02-22-2025 Erythrocyte distribution width (RBC) [Ratio] 12.1 % 11.6-14.6 [facility] Erythrocyte distribution wid th standard deviationOrdered By: [facility] Hospitals[facility]annan Escalante on 02-22-2025 Erythrocyte distribution width (RBC) [Ratio] 39.2 fl 35.1-43.9 [facility] Glomerular filtration rate ( GFR) estimation/1.73 sq m using serum, plasma, or whole bOrdered By: Devaughnmakenzie Farmer on 02-22-2025 GFR/1.73 sq M.predicted among non-blacks MDRD (S/P/Bld) [Vol rate/Area] 76 mL/min/{1.73_m2} >60 [facility] Comment on above: mL/min/1.73m2 CKD-EP I Creatinine Equation (2020) Hematocrit Auto (Bld) [Volum e fraction]Ordered By: Devaughn Farmer on 02-22-2025 Hematocrit (Bld) [Volume fraction] 36.6 % Low 37-47 [facility] Hemoglobin measurementOrdere d By: Devaughn Farmer on 02-22-2025 Hemoglobin (Bld) [Mass/Vol] 12.6 g/dL 12.0-15.0 [facility] Immature granulocytes/100 WB C Auto (Bld)Ordered By: Devaughn Farmer on 02-22-2025 Immature granulocytes/100 WBC (Bld) 0.500 % 0.0-0.9 [facility] Comment on above: IG% - Immature Granu locytes (promyelocytes, myelocytes and metamyelocytes) > 1% indicates that a LEFT SHIFT is Present. L499.0042on 02-22-2025 Trop T High Sen Normal <=14 [facility] Comment on above: Result Comment: Guanakito freitas via OM: MD Ordered Performed By: #### L 499.0042 #### [facility] [address] [place], [address] L501.4021on 02-22-2025 Trop T High Sen 12 ng/L Normal <=14 [facility] Comment on above: Performed By: #### L 500.2500, L503.7505, L501.4021, L100.0100 #### [facility] [address] [place], [address] L503.7505on 02-22-2025 Natriuretic peptide B (Bld) [Mass/Vol] 210 pg/mL Normal <=1800 [facility] Comment on above: Result Comment: Hear t Failure Unlikely: < 300 pg/mL Heart Failure Likely < 50 Years: > 450 pg/mL 50-75 Years: > 900 pg/mL >75 Years: > 1800 pg/mL Performed By: #### L 500.2500, L503.7505, L501.4021, L100.0100 #### [facility] [address] [place], [address] MCV (mean corpuscular volume ) determinationOrdered By: Devaughn Farmer on 02-22-2025 MCV (RBC) [Entitic vol] 88.4 fL 81-[address] [facility] Mean corpuscular hemoglobin (MCH) determinationOrdered By: [facility] on 02-22-2025 MCH (RBC) [Entitic mass] 30.4 pg 27.0-32.0 [facility] Mean corpuscular hemoglobin concentration (MCHC) determinationOrdered By: Devaughn Farmer on 02-22-2025 MCHC (RBC) [Mass/Vol] 34.4 g/dL 32-36 [facility] Mean platelet volume determi nationOrdered By: Devaughn Farmer on 02-22-2025 Platelet mean volume (Bld) [Entitic vol] 9.4 fL 6.2-12.0 [facility] Monocyte percentageOrdered B y: Devaughn Farmer on 02-22-2025 Monocytes/100 WBC (Bld) 11.4 % High 0-[address] [facility] Natriuretic peptide.B prohor ofelia N-Terminal [Mass/volume] in Serum or PlasmaOrdered By: Devaughn Farmer on 02-22-2025 Natriuretic peptide.B prohormone N-Terminal [Mass/Vol] 210 pg/mL <1800 [facility] Comment on above: Heart Failure Unlike ly: < 300 pg/mLHeart Failure Likely< 50 Years: > 450 pg/mL50-75 Years: > 900 pg/mL>75 Years: > 1800 pg/mL Neutrophil percentageOrdered By: Devaughn Farmer on 02-22-2025 Neutrophils/100 WBC (Bld) 58.7 % 47-70 [facility] Nucleated red blood cell per centageOrdered By: Devaughn Farmer on 02-22-2025 Nucleated RBC/100 WBC (Bld) [Ratio] 0 % 0-5 [facility] Platelet countOrdered By: Orlando Farmer on 02-22-2025 Platelets (Bld) [#/Vol] 285 10*3/uL 150-450 [facility] Potassium measurement (mass/ volume)Ordered By: Devaughn Farmer on 02-22-2025 Potassium (Unsp spec) [Mass/Vol] 4.0 mmol/L 3.3-5.1 [facility] RBC Auto (Bld) [#/Vol]Ordere d By: Devaughn Farmer on 02-22-2025 RBC (Bld) [#/Vol] 4.14 10*6/uL Low 4.2-5.4 [facility] Serum creatinine measurement (mass/volume)Ordered By: Devaughn Farmer on 02-22-2025 Creatinine [Mass/Vol] 0.78 mg/dL 0.70-1.20 [facility] Serum glucose measurement (m ass/volume)Ordered By: Devaughn Farmer on 02-22-2025 Glucose [Mass/Vol] 114 mg/dL High 70-99 [facility] Serum or plasma calcium lillie urement (mass/volume)Ordered By: Devaughn Escalante on 02-22-2025 Calcium [Mass/Vol] 9.0 mg/dL 7.6-11.0 [facility] Serum or plasma urea nitroge n measurement (mass/volume)Ordered By: Devaughn Farmer on 02-22-2025 Urea nitrogen [Mass/Vol] 8 mg/dL 4-19 [facility] Sodium levelOrdered By: Carlos Farmer on 02-22-2025 Sodium [Moles/Vol] 134 mmol/L 133-145 [facility] Troponin T.cardiac [Mass/vol ume] in Serum or Plasma by High sensitivity methodOrdered By: Devaughn Farmer on 02-22-2025 Troponin T.cardiac High sensitivity method [Mass/Vol] 12 ng/L <14 [facility] White blood cell (WBC) count Ordered By: Devaughn Farmer on 02-22-2025 WBC (Bld) [#/Vol] 8.6 10*3/uL 4.4-11.0 [facility] Basic metabolic 2000 panelon 02-20-2025 Anion gap [Moles/Vol] 12 mmol/L 8 - 15 mmol/L [facility] Calcium [Mass/Vol] 9.5 mg/dL 8.5 - 10. 2 mg/dL [facility] Chloride [Moles/Vol] 100 mmol/L 98 - 10 7 mmol/L [facility] CO2 [Moles/Vol] 23 mmol/L 22 - 30 mmol/L [facility] Creatinine [Mass/Vol] 0.82 mg/dL 0.58 - 0.96 mg/dL [facility] GFR/1.73 sq M.predicted among non-blacks MDRD (S/P/Bld) [Vol rate/Area] 72 mL/min/{1.73_m2} - PINF [facility] Comment on above: Estimated Glomerular Filtration Rate [...] 111 mg/dL High 74 - 99 mg/dL [facility] Comment on above: The [place] Diabete s Association (ADA) provides guidance for [...] Standards of Medical Care in Diabetes 2016, [place] Diabetes Association. Diabetes Care. 2016.39(Suppl 1). Interpretation and review of laboratory results Abnormal [facility] Potassium [Moles/Vol] 4.1 mmol/L 3.7 - 5.1 mmol/L [facility] Sodium [Moles/Vol] 135 mmol/L Low 136 - 144 mmol/L [facility] Urea nitrogen [Mass/Vol] 11 mg/dL 7 - 21 mg/d L [facility] Iron and Iron binding capaci ty panelon 02-20-2025 Interpretation and review of laboratory results Normal [facility] Iron [Mass/Vol] 64 ug/dL 41 - 186 ug/dL [facility] Iron binding capacity [Mass/Vol] 312 ug/dL 232 - 386 ug/dL [facility] Iron/TIBC [Molar ratio] 20.5 % 15.0 - 57.0 % [facility] No Panel Informationon 02-20 [facility] Basic metabolic 2000 panelon 02-19-2025 Anion gap [Moles/Vol] 12 mmol/L Normal 8-15 [facility] Comment on above: Order Comment: Speci men Type: BLOOD SPECIMEN Ordering Facility: [facility] Address: [address] [place] [address] Performed By: #### 3 024-7, 3016-3, 87051-1, 75354-4 #### [facility] CLIA [id number] [address] [place] [address] [place] Calcium [Mass/Vol] 9.5 mg/dL Normal 8.5-10.2 [facility] Comment on above: Order Comment: Speci men Type: BLOOD SPECIMEN Ordering Facility: [facility] Address: [address] [place] [address] Performed By: #### 3 024-7, 3016-3, 18958-8, 50390-2 #### [facility] CLIA [id number] [address] [place] [address] [place] Chloride [Moles/Vol] 100 mmol/L Normal 98-107 [facility] Comment on above: Order Comment: Speci men Type: BLOOD SPECIMEN Ordering Facility: [facility] Address: [address] [place] [address] Performed By: #### 3 024-7, 3016-3, 17259-4, 77289-5 #### [facility] CLIA [id number] [address] [place] [address] [place] CO2 [Moles/Vol] 23 mmol/L Normal 22-30 [facility] Comment on above: Order Comment: Speci men Type: BLOOD SPECIMEN Ordering Facility: [facility] Address: [address] [place] [address] Performed By: #### 3 024-7, 3016-3, 04017-5, 88022-5 #### [facility] CLIA [id number] [address] [id number] [address] [place] Creatinine [Mass/Vol] 0.82 mg/dL Normal 0.58-0.96 [facility] Comment on above: Order Comment: Johanne soto Type: BLOOD SPECIMEN Ordering Facility: [facility] Address: [address] [place] [address] Performed By: #### 3 024-7, 3016-3, 62143-9, 03752-2 #### [facility] CLIA [id number] [address] [place] [address] [place] [facility] Creatinine and Glomerular filtration rate.predicted panel (S/P/Bld) 72 mL/min/1.73m??? Normal >=60 [facility] Comment on above: Order Comment: Johanne soto Type: BLOOD SPECIMEN Ordering Facility: [facility] Address: [address] [place] [address] Result Comment: Hina mated Glomerular Filtration Rate [...] GFR. Performed By: #### 3 024-7, 3016-3, 49266-4, 83625-6 #### [facility] CLIA [id number] [address] [place] [address] [place] Glucose [Mass/Vol] 111 mg/dL High 74-99 [facility] Comment on above: Order Comment: Johanne soto Type: BLOOD SPECIMEN Ordering Facility: [facility] Address: [address] [place] [address] Result Comment: The [place] Diabetes Association (ADA) provides guidance for cutoff [...] Standards of Medical Care in Diabetes 2016, [place] Diabetes [employer]. Diabetes Care. 2016.39(Suppl 1). Performed By: #### 3 024-7, 3016-3, 04968-7, 93614-2 #### [facility] CLIA [id number] [address] [place] [address] [place] Potassium [Moles/Vol] 4.1 mmol/L Normal 3.7-5.1 [facility] Comment on above: Order Comment: Speci men Type: BLOOD SPECIMEN Ordering Facility: [facility] Address: [address] [place] [address] Performed By: #### 3 024-7, 6-3, 37601-9, 64668-1 #### [facility] CLIA [id number] [address] [place] [address] [place] Sodium [Moles/Vol] 135 mmol/L Low 136-144 [facility] Comment on above: Order Comment: Sheilai charles Type: BLOOD SPECIMEN Ordering Facility: [facility] Address: [address] [place] [address] Performed By: #### 3 024-7, 6-3, 28574-4, 40243-7 #### [facility] CLIA [id number] [address] [place] [address] [place] Urea nitrogen [Mass/Vol] 11 mg/dL Normal 7-21 [facility] Comment on above: Order Comment: Speci men Type: BLOOD SPECIMEN Ordering Facility: [facility] Address: [address] [place] [address] Performed By: #### 3 024-7, 3016-3, 38604-1, 78530-6 #### [facility] CLIA [id number] [address] [place] [address] [place] CBC W Auto Differential pane l (Bld)on 02-19-2025 Basophils (Bld) [#/Vol] 0.05 10*3/uL [facility] Basophils/100 WBC (Bld) 0.6 % C [facility] Differential cell count method Nom (Bld) Auto [facility] Eosinophils (Bld) [#/Vol] 0.51 10*3/uL [facility] Eosinophils/100 WBC (Bld) 6.1 % [facility] Erythrocyte distribution width (RBC) [Ratio] 12.4 % 11.5 - 15.0 % [facility] Hematocrit (Bld) [Volume fraction] 38.1 % 36.0 - 46.0 % [facility] Hemoglobin (Bld) [Mass/Vol] 13.1 g/dL 11.5 - 15.5 g/dL [facility] Immature granulocytes (Bld) [#/Vol] [facility] Immature granulocytes/100 WBC (Bld) 0.2 % [facility] Interpretation and review of laboratory results Abnormal [facility] Lymphocytes (Bld) [#/Vol] 1.8 10*3/uL [facility] Lymphocytes/100 WBC (Bld) 21.6 % [facility] MCH (RBC) [Entitic mass] 31.3 pg 26. 0 - 34.0 pg [facility] MCHC (RBC) [Mass/Vol] 34.4 g/dL 30.5 - 36.0 g/dL [facility] MCV (RBC) [Entitic vol] 90.9 fL 80.0 - 100.0 fL [facility] Monocytes (Bld) [#/Vol] 0.86 10*3/uL [facility] Monocytes/100 WBC (Bld) 10.3 % C [facility] Neutrophils (Bld) [#/Vol] 5.09 10*3/uL [facility] Neutrophils/100 WBC (Bld) 61.2 % [facility] Nucleated RBC (Bld) [#/Vol] [facility] Nucleated RBC/100 WBC (Bld) [Ratio] 0 % /100 WBC [facility] Platelet mean volume (Bld) [Entitic vol] 11.2 fL 9.0 - 12.7 fL [facility] Platelets (Bld) [#/Vol] 242 10*3/uL [facility] RBC (Bld) [#/Vol] 4.19 10*6/uL 3.90 - 5.2 0 m/uL [facility] WBC (Bld) [#/Vol] 8.33 10*3/uL [facility] Basophils (Bld) [#/Vol] 0.05 10*3/uL Normal <0.11 [facility] Comment on above: Order Comment: Speci men Type: BLOOD SPECIMEN Ordering Facility: [facility] Address: [address] [place] [address] Performed By: #### 3 024-7, 3016-3, 06784-7, 94360-7 #### [facility] CLIA [id number] [address] [place] [address] [place] Basophils/100 WBC (Bld) 0.6 % Normal [facility] Comment on above: Order Comment: Speci men Type: BLOOD SPECIMEN Ordering Facility: [facility] Address: [address] [place] [address] Performed By: #### 3 024-7, 3016-3, 41357-5, 61190-8 #### [facility] CLIA [id number] [address] [place] [address] [place] Differential cell count method Nom (Bld) Auto Normal [facility] Comment on above: Order Comment: Speci men Type: BLOOD SPECIMEN Ordering Facility: [facility] Address: [address] [place] [address] Performed By: #### 3 024-7, 3016-3, 76200-3, 77083-8 #### [facility] CLIA [id number] [address] [place] [address] [place] Eosinophils (Bld) [#/Vol] 0.51 10*3/uL High <0.46 [facility] Comment on above: Order Comment: Speci men Type: BLOOD SPECIMEN Ordering Facility: [facility] Address: [address] [place] [address] Performed By: #### 3 024-7, 3016-3, 39313-8, 27672-4 #### [facility] CLIA [id number] [address] [place] [address] [place] Eosinophils/100 WBC (Bld) 6.1 % Normal [facility] Comment on above: Order Comment: Speci men Type: BLOOD SPECIMEN Ordering Facility: [facility] Address: [address] [place] [address] Performed By: #### 3 024-7, 6-3, 28092-0, 33832-4 #### [facility] CLIA [id number] [address] [place] [address] [place] Erythrocyte distribution width (RBC) [Ratio] 12.4 % Normal 11.5-15.0 [facility] Comment on above: Order Comment: Speci men Type: BLOOD SPECIMEN Ordering Facility: [facility] Address: [address] [place] [address] Performed By: #### 3 024-7, 6-3, 51800-7, 79222-6 #### [facility] CLIA [id number] [address] [place] [address] [place] Hematocrit (Bld) [Volume fraction] 38.1 % Normal 36.0-46.0 [facility] Comment on above: Order Comment: Speci men Type: BLOOD SPECIMEN Ordering Facility: [facility] Address: [address] [place] [address] Performed By: #### 3 024-7, 6-3, 93083-8, 11515-0 #### [facility] CLIA [id number] [address] [place], [place] [address] [place] Hemoglobin (Bld) [Mass/Vol] 13.1 g/dL Normal 11.5-15.5 [facility] Comment on above: Order Comment: Speci men Type: BLOOD SPECIMEN Ordering Facility: [facility] Address: [address] [place] [address] Performed By: #### 3 024-7, 3016-3, 78564-7, 13673-3 #### [facility] CLIA [id number] [address] [place] [address] [place] Immature granulocytes (Bld) [#/Vol] 10*3/uL Normal <0.10 [facility] Comment on above: Order Comment: Speci men Type: BLOOD SPECIMEN Ordering Facility: [facility] Address: [address] [place] [address] Performed By: #### 3 024-7, 3016-3, 95900-2, 17665-9 #### [facility] CLIA [id number] [address] [place] [address] [place] Immature granulocytes/100 WBC (Bld) 0.2 % Normal [facility] Comment on above: Order Comment: Speci men Type: BLOOD SPECIMEN Ordering Facility: [facility] Address: [address] [place] [address] Performed By: #### 3 024-7, 3016-3, 87850-1, 19107-5 #### [facility] CLIA [id number] [address] [place] [address] [place] Lymphocytes (Bld) [#/Vol] 1.80 10*3/uL Normal 1.00-4.00 [facility] Comment on above: Order Comment: Speci men Type: BLOOD SPECIMEN Ordering Facility: [facility] Address: [address] [place] [address] Performed By: #### 3 024-7, 3016-3, 31146-2, 93113-2 #### [facility] CLIA [id number] [address] [place] [address] [place] Lymphocytes/100 WBC (Bld) 21.6 % Normal [facility] Comment on above: Order Comment: Speci men Type: BLOOD SPECIMEN Ordering Facility: [facility] Address: [address] [place] [address] Performed By: #### 3 024-7, 3016-3, 38687-7, 89316-6 #### [facility] CLIA [id number] [address] [place] [address] [place] MCH (RBC) [Entitic mass] 31.3 pg Normal 26.0-34.0 [facility] Comment on above: Order Comment: Speci men Type: BLOOD SPECIMEN Ordering Facility: [facility] Address: [address] [place] [address] Performed By: #### 3 024-7, 6-3, 56397-6, 32921-7 #### [facility] CLIA [id number] [address] [place] [address] [place] MCHC (RBC) [Mass/Vol] 34.4 g/dL Normal 30.5-36.0 [facility] Comment on above: Order Comment: Speci men Type: BLOOD SPECIMEN Ordering Facility: [facility] Address: [address] [place] [address] Performed By: #### 3 024-7, 3016-3, 92260-0, 70313-7 #### [facility] CLIA [id number] [address] [place] [address] [place] MCV (RBC) [Entitic vol] 90.9 fL Normal 80.0-100.[address] [facility] Comment on above: Order Comment: Speci men Type: BLOOD SPECIMEN Ordering Facility: [facility] Address: [address] [place] [address] Performed By: #### 3 024-7, 6-3, 04968-3, 80383-3 #### [facility] CLIA [id number] [address] [place] [address] [place] Monocytes (Bld) [#/Vol] 0.86 10*3/uL Normal <0.87 [facility] Comment on above: Order Comment: Speci men Type: BLOOD SPECIMEN Ordering Facility: [facility] Address: [address] [place] [address] Performed By: #### 3 024-7, 3016-3, 30859-7, 63281-3 #### [facility] CLIA [id number] [address] [place] [address] [place] Monocytes/100 WBC (Bld) 10.3 % Normal [facility] Comment on above: Order Comment: Speci men Type: BLOOD SPECIMEN Ordering Facility: [facility] Address: [address] [place] [address] Performed By: #### 3 024-7, 3016-3, 83459-7, 75645-4 #### [facility] CLIA [id number] [address] [place] [address] [place] Neutrophils (Bld) [#/Vol] 5.09 10*3/uL Normal 1.45-7.50 [facility] Comment on above: Order Comment: Speci men Type: BLOOD SPECIMEN Ordering Facility: [facility] Address: [address] [place] [address] Performed By: #### 3 024-7, 3016-3, 38895-8, 17477-3 #### [facility] CLIA [id number] [address] [place] [address] [place] Neutrophils/100 WBC (Bld) 61.2 % Normal [facility] Comment on above: Order Comment: Speci men Type: BLOOD SPECIMEN Ordering Facility: [facility] Address: [address] [place] [address] Performed By: #### 3 024-7, 3016-3, 04408-1, 14010-9 #### [facility] CLIA [id number] [address] [place] [address] [place] Nucleated RBC (Bld) [#/Vol] 10*3/uL Normal <0.01 [facility] Comment on above: Order Comment: Speci men Type: BLOOD SPECIMEN Ordering Facility: [facility] Address: [address] [place] [address] Performed By: #### 3 024-7, 3016-3, 26500-5, 09476-9 #### [facility] CLIA [id number] [address] [place] [address] [place] Nucleated RBC/100 WBC (Bld) [Ratio] 0.0 /100 WBC Normal [facility] Comment on above: Order Comment: Speci men Type: BLOOD SPECIMEN Ordering Facility: [facility] Address: [address] [place] [address] Performed By: #### 3 024-7, 3016-3, 60710-6, 77996-3 #### [facility] CLIA [id number] [address] [place] [address] [place] Platelet mean volume (Bld) [Entitic vol] 11.2 fL Normal 9.0-12.7 [facility] Comment on above: Order Comment: Speci men Type: BLOOD SPECIMEN Ordering Facility: [facility] Address: [address] [place] [address] Performed By: #### 3 024-7, 3016-3, 00087-3, 81409-6 #### [facility] CLIA [id number] [address] [place] [address] [place] Platelets (Bld) [#/Vol] 242 10*3/uL Normal 150-400 [facility] Comment on above: Order Comment: Speci men Type: BLOOD SPECIMEN Ordering Facility: [facility] Address: [address] [place] [address] Performed By: #### 3 024-7, 3016-3, 84425-3, 18815-3 #### [facility] CLIA [id number] [address] [place] [address] [place] RBC (Bld) [#/Vol] 4.19 10*6/uL Normal 3.90-5.20 [facility] Comment on above: Order Comment: Speci men Type: BLOOD SPECIMEN Ordering Facility: [facility] Address: [address] [id number] Performed By: #### 3 024-7, 3016-3, 00288-8, 43533-1 #### [facility] CLIA [id number] [address] [place] [address] [place] WBC (Bld) [#/Vol] 8.33 10*3/uL Normal 3.70-11.00 [facility] Comment on above: Order Comment: Speci men Type: BLOOD SPECIMEN Ordering Facility: [facility] Address: [address] [place] [address] Performed By: #### 3 024-7, 3016-3, 75002-5, 83625-9 #### [facility] CLIA [id number] [address] [place] [address] [place] CNOVon 02-19-2025 [facility] ELAINECASANDRA ([id number]) 1940 F Date Time Provider Department 02/19/25 12:20 PM [facility] During your visit today, we recorded the following information about you: Pulse Respiration Blood pressure Weight 68/minute 16/minute 170/80 64 kg Margoth Chavez APRN.[employer] 02/19/2025 5:54 PM Signed This is a [...] SPEC WHEN PFRMD 12/05/2013 Colonoscopy done in [facility] FLX W/REMOVAL LESION BY HOT [...] acute distress (more content not included)... Normal [facility] Iron and Iron binding capaci ty panelon 02-19-2025 Iron [Mass/Vol] 64 ug/dL Normal 41-186 [facility] Comment on above: Order Comment: Speci men Type: BLOOD SPECIMEN Ordering Facility: [facility] Address: [address] [place] [address] Performed By: #### 3 024-7, 3016-3, 62937-4, 40665-2 #### [facility] CLIA [id number] [address] [place] [address] [place] Iron binding capacity [Mass/Vol] 312 ug/dL Normal 232-386 [facility] Comment on above: Order Comment: Speci men Type: BLOOD SPECIMEN Ordering Facility: [facility] Address: [address] [place] [address] Performed By: #### 3 024-7, 3016-3, 08718-8, 72618-5 #### [facility] CLIA [id number] [address] [place] [address] [place] Iron/TIBC [Molar ratio] 20.5 % Normal 15.0-57.[address] [facility] Comment on above: Order Comment: Speci men Type: BLOOD SPECIMEN Ordering Facility: [facility] Address: [address] [place] [address] Performed By: #### 3 024-7, 3016-3, 17777-2, 24294-5 #### [facility] CLIA [id number] [address] [place] [address] [place] CNOVon 02-05-2025 CNOV Office Visit ([facility] ) CASANDRA HENRY ([id number]) 1940 F Date Time Provider Department 02/05/25 9:00 AM SREEKANTH CORTEZ [facility] During your [...] medication as needed for BLOOD PRESSURE >140/90 CortezSreekanth cruz, 02/05/2025 11:04 AM Signed Subjective Casandra Henry [...] Monitor serum sodium levels regularly. Recording using [employer] software for draft documentation of the visit was discussed with the patient/authorized ict sales representative; all questions welcomed and answered. Patient/authorized ict sales representative agreed to proceed Allergies As of [...] 1 hydr (more content not included)... Normal [facility] CNOVon 12-25-2024 CNOV Office Visit ([facility] ) CASANDRA HENRY ([id number]) 1940 F Date Time Provider Department 12/25/24 [...] 1-dose 75+ series) Never done Covid-19 Vaccine( - 2023- season) due on 04/23/2024 Advance Directive Discussion [...] twice a (more content not included)... Normal [facility] CASANDRA HENRY ([id number]) 1940 F Date Time Provider Department 12/25/24 MARILYN GUTIERREZ [facility] During your visit today, we recorded the following information about you: Chyna Ramirez, ENEDELIA 12/25/2024 10:33 AM Signed Pt called in [...] Encounter Status:Closed by [facility] ([facility]) ELAINECASANDRA ([id number]) 1940 F Date Time Provider Department 11/21/24 [facility] During your visit today, we recorded the following information about you: Anita Guevara, ENEDELIA 11/21/2024 9:45 AM Signed Pt calling in [...] PO in the PM Encounter Status:Closed by VINIF (more content not included)... Normal [facility] Basic metabolic 2000 panelon 11-16-2024 Anion gap [Moles/Vol] 11 mmol/L Normal 8-15 [facility] Comment on above: Order Comment: Speci men Type: BLOOD SPECIMEN Ordering Facility: [facility] Address: [address] [place] [address] Performed By: #### 3 024-7, 3016-3, 81871-7, 67232-3 #### [facility] CLIA [id number] [address] [place] [address] [place] Calcium [Mass/Vol] 9.3 mg/dL Normal 8.5-10.2 [facility] Comment on above: Order Comment: Speci men Type: BLOOD SPECIMEN Ordering Facility: [facility] Address: [address] [place] [address] Performed By: #### 3 024-7, 3016-3, 02560-3, 25574-3 #### [facility] CLIA [id number] [address] [place] [address] [place] Chloride [Moles/Vol] 102 mmol/L Normal 98-107 [facility] Comment on above: Order Comment: Speci men Type: BLOOD SPECIMEN Ordering Facility: [facility] Address: [address] [place] [address] Performed By: #### 3 024-7, 3016-3, 85357-5, 83671-5 #### [facility] CLIA [id number] [address] [place] [address] [place] CO2 [Moles/Vol] 25 mmol/L Normal 22-30 [facility] Comment on above: Order Comment: Speci men Type: BLOOD SPECIMEN Ordering Facility: [facility] Address: [address] [place] [address] Performed By: #### 3 024-7, 3016-3, 36704-5, 11135-7 #### [facility] CLIA [id number] [address] [place] [address] [place] Creatinine [Mass/Vol] 0.85 mg/dL Normal 0.58-0.96 [facility] Comment on above: Order Comment: Speci men Type: BLOOD SPECIMEN Ordering Facility: [facility] Address: [address] [id number] Performed By: #### 3 024-7, 3016-3, 76870-8, 73880-0 #### [facility] CLIA [id number] [address] [place] [address] [place] Creatinine and Glomerular filtration rate.predicted panel (S/P/Bld) 69 mL/min/1.73m??? Normal >=60 [facility] Comment on above: Order Comment: Johanne soto Type: BLOOD SPECIMEN Ordering Facility: [facility] Address: [address] [place] [address] Result Comment: Hina mated Glomerular Filtration Rate [...] GFR. Performed By: #### 3 024-7, 3016-3, 72350-2, 65194-2 #### [facility] CLIA [id number] [address] [place], [place] [address] [place] Glucose [Mass/Vol] 89 mg/dL Normal 74-99 [facility] Comment on above: Order Comment: Johanne soto Type: BLOOD SPECIMEN Ordering Facility: [facility] Address: [address] [place] [address] Result Comment: The [place] Diabetes Association (ADA) provides guidance for cutoff [...] Standards of Medical Care in Diabetes 2016, [place] [employer]. Diabetes Care. 2016.39(Suppl 1). Performed By: #### 3 024-7, 3016-3, 12056-6, 67372-3 #### [facility] CLIA [id number] [address] [place] [address] [place] Potassium [Moles/Vol] 4.3 mmol/L Normal 3.7-5.1 [facility] Comment on above: Order Comment: Speci men Type: BLOOD SPECIMEN Ordering Facility: [facility] Address: [address] [place] [address] Performed By: #### 3 024-7, 3016-3, 62303-2, 64902-0 #### [facility] CLIA [id number] [address] [place] [address] [place] Sodium [Moles/Vol] 138 mmol/L Normal 136-144 [facility] Comment on above: Order Comment: Speci men Type: BLOOD SPECIMEN Ordering Facility: [facility] Address: [address] [place] [address] Performed By: #### 3 024-7, 3016-3, 33067-6, 18935-6 #### [facility] CLIA [id number] [address] [place] [address] [place] Urea nitrogen [Mass/Vol] 8 mg/dL Normal 7-21 [facility] Comment on above: Order Comment: Speci men Type: BLOOD SPECIMEN Ordering Facility: [facility] Address: [address] [place] [address] Performed By: #### 3 024-7, 3016-3, 22225-7, 26481-0 #### [facility] CLIA [id number] [address] [place] [address] [place] Osmolality SerPlon 5 Osmolality [Osmolality] 283 mosm/kg Normal 275-300 [facility] Comment on above: Order Comment: Speci men Type: BLOOD SPECIMEN Ordering Facility: [facility] Address: [address] [place] [address] Performed By: #### 3 024-7, 3016-3, 92722-5, 94445-8 #### [facility] CLIA [id number] [address] [place] [address] [place] Osmolality Uron 11-16-2024 Osmolality (U) [Osmolality] 210 mosm/kg Normal 50-1200 [facility] Comment on above: Order Comment: Speci men Type: BLOOD SPECIMEN Ordering Facility: [facility] Address: [address] [place] [address] Performed By: #### 3 024-7, 3016-3, 52065-9, 82559-5 #### [facility] CLIA [id number] [address] [place] [address] [place] Prot Ur-mCncon 11-16-2024 Protein (U) [Mass/Vol] 6 mg/dL Normal 0-20 [facility] Comment on above: Order Comment: Speci men Type: BLOOD SPECIMEN Ordering Facility: [facility] Address: [address] [place] [address] Performed By: #### 3 024-7, 3016-3, 62986-8, 80968-7 #### [facility] CLIA [id number] [address] [place] [address] [place] Sodium ?Tm Ur-sCncon 025 Sodium Unsp time (U) [Moles/Vol] 84 mmol/L Normal 14-216 [facility] Comment on above: Order Comment: Speci men Type: BLOOD SPECIMEN Ordering Facility: [facility] Address: [address] [place] [address] Performed By: #### 3 024-7, 3016-3, 55350-6, 29039-3 #### [facility] CLIA [id number] [address] [place] [address] [place] T4 Free SerPl-mCncon 03-27-2 025 Free T4 [Mass/Vol] 1.9 ng/dL High 0.9-1.7 [facility] Comment on above: Order Comment: Johanne soto Type: BLOOD SPECIMEN Ordering Facility: [facility] Address: [address] [place] [address] Performed By: #### 3 024-7, 3016-3, 19148-9, 91967-8 #### [facility] CLIA [id number] [address] [place] [address] [place] TSH SerPl-aCncon 11-16-2024 TSH Qn 0.241 m[IU]/L Low 0.270-4.200 [facility] Comment on above: Order Comment: Johanne soto Type: BLOOD SPECIMEN Ordering Facility: [facility] Address: [address] [place] [address] Performed By: #### 3 024-7, 3016-3, 02583-7, 57913-6 #### [facility] CLIA [id number] [address] [place] [address] [place] CNOVon 08-08-2024 CNOV Office Visit (FAMPWS ) CASANDRA HENRY ([id number]) 1940 F Date Time Provider Department 08/08/24 9:00 AM SREEKANTH CORTEZ FAMPWS During your visit today, we recorded the following information about you: Temperature Pulse Respiration Blood pressure 97.5 degrees 80/minute 16/minute 140/80 Weight 65.3 kg Sreekanth Cortez DO 08/09/2024 7:16 AM Signed CC: Casandra [...] SPEC WHEN PFRMD 12/05/2013 Colonoscopy done in [facility] FLX W/REMOVAL LESION BY HOT [...] bring results (more content not included)... Normal [facility] CNPNon 07-12-2024 SATISHN Telephone (FAMPWS) TAMEKA HENRYA ([id number]) 1940 F Date Time Provider Department 07/12/24 [facility] During your visit today, we recorded [...] that are in the generics. Sergei Renner APRN.Roxnane Dillon RN 07/12/2024 3:46 PM Signed Patient notified of results and provider's instructions. Patient verbalizes understanding. Patient states that she would be willing to try the brand name of levothyroxine 100 mcg. Patient uses [facility] as pharmacy. ENEDELIA Stearns Rebekah, APRN.CNP 07/13/2024 11:54 AM Signed SynthroidJUDITH sent. Recheck thyroid labs in about 6 weeks. The following approved medication requests have been transmitted electronically. Requested Prescriptions Signed Prescriptions Disp Refills SYNTHROID 100 mcg tablet 30 tablet 2 Sig: Take 1 tablet by mouth once daily. Take on empty stomach Authorizing Provider: SERGEI RENNER APRN.CNP Jones, Stephanie, RN 07/13/2024 1:57 PM Signed Patient notified of provider's instructions and that prescription sent to pharmacy. Patient verbalizes understanding. Roxanne Felix RN Allergies As of Date: 07/12/2024 Noted Allergy Reaction GLUTEN 08/09/2023 3 - Cough MILK CONTAINING PRODUCTS (DAIRY) 08/09/2023 3 - Cough Date Reviewed: 04/28/2024 Reviewed by: Sergei Renner APRN.MATHS TUTOR - Fully Assessed Reason for Visit: Results [95] Orders [681] Primary Visit Diagnosis:Hypothyroidi sm, unspecified type [E03.9] Order(s):SYNTHROID 100 mcg tabletTake 1 tablet by mouth once daily. Take on empty stomachDisp: 30 tabletRfl: 2 THYROID STIMULATING HORMONE [SQTSH] Order #: [id number] FUTURE T4 FREE/FREE THYROXINE [SQFT4] Order #: [id number] FUTURE Prescriptions as of 07/13/2024 - SYNTHROID [...] Status:Closed by ROXANNE FELIX on 07/13/24 Normal [facility] CBC panel Auto (Bld)on 07-10 Erythrocyte distribution width (RBC) [Ratio] 12.6 % Normal 11.5-15.0 [facility] Comment on above: Order Comment: Johanne soto Type: BLOOD SPECIMEN Ordering Facility: [facility] Address: [address] [place] [address] Performed By: #### 5 8410-2 #### [facility] CLIA [id number] [address] [place] [address] [place] Hematocrit (Bld) [Volume fraction] 41.8 % Normal 36.0-46.0 [facility] Comment on above: Order Comment: Johanne soto Type: BLOOD SPECIMEN Ordering Facility: [facility] Address: [address] [place] [address] Performed By: #### 5 8410-2 #### [facility] CLIA [id number] [address] [place] [address] [place] Hemoglobin (Bld) [Mass/Vol] 13.8 g/dL Normal 11.5-15.5 [facility] Comment on above: Order Comment: Johanne soto Type: BLOOD SPECIMEN Ordering Facility: [facility] Address: [address] [place] [address] Performed By: #### 5 8410-2 #### [facility] CLIA [id number] [address] [place] [address] [place] MCH (RBC) [Entitic mass] 30.8 pg Normal 26.0-34.0 [facility] Comment on above: Order Comment: Speci men Type: BLOOD SPECIMEN Ordering Facility: [facility] Address: [address] [place] [address] Performed By: #### 5 8410-2 #### [facility] CLIA [id number] [address] [place] [address] [place] MCHC (RBC) [Mass/Vol] 33.0 g/dL Normal 30.5-36.0 [facility] Comment on above: Order Comment: Speci men Type: BLOOD SPECIMEN Ordering Facility: [facility] Address: [address] [place] [address] Performed By: #### 5 8410-2 #### [facility] CLIA [id number] [address] [place] [address] [place] MCV (RBC) [Entitic vol] 93.3 fL Normal 80.0-100.[address] [facility] Comment on above: Order Comment: Speci men Type: BLOOD SPECIMEN Ordering Facility: [facility] Address: [address] [place] [address] Performed By: #### 5 8410-2 #### [facility] CLIA [id number] [address] [place] [address] [place] Nucleated RBC (Bld) [#/Vol] 10*3/uL Normal <0.01 [facility] Comment on above: Order Comment: Speci men Type: BLOOD SPECIMEN Ordering Facility: [facility] Address: [address] [place] [address] Performed By: #### 5 8410-2 #### [facility] CLIA [id number] [address] [place] [address] [place] Platelet mean volume (Bld) [Entitic vol] 9.7 fL Normal 9.0-12.7 [facility] Comment on above: Order Comment: Speci men Type: BLOOD SPECIMEN Ordering Facility: [facility] Address: [address] [place] [address] Performed By: #### 5 8410-2 #### [facility] CLIA [id number] [address] [place] [address] [place] Platelets (Bld) [#/Vol] 294 10*3/uL Normal 150-400 [facility] Comment on above: Order Comment: Speci men Type: BLOOD SPECIMEN Ordering Facility: [facility] Address: [address] [place] [address] Performed By: #### 5 8410-2 #### [facility] CLIA [id number] [address] [place] [address] [place] RBC (Bld) [#/Vol] 4.48 10*6/uL Normal 3.90-5.20 [facility] Comment on above: Order Comment: Speci men Type: BLOOD SPECIMEN Ordering Facility: [facility] Address: [address] [place] [address] Performed By: #### 5 8410-2 #### [facility] CLIA [id number] [address] [place] [address] [place] WBC (Bld) [#/Vol] 9.66 10*3/uL Normal 3.70-11.00 [facility] Comment on above: Order Comment: Speci men Type: BLOOD SPECIMEN Ordering Facility: [facility] Address: [address] [place] [address] Performed By: #### 5 8410-2 #### [facility] CLIA [id number] [address] [place] [address] [place] T4 Free SerPl-mCncon 11-18-2 024 Free T4 [Mass/Vol] 1.5 ng/dL Normal 0.9-1.7 [facility] Comment on above: Order Comment: Speci men Type: BLOOD SPECIMEN Ordering Facility: [facility] Address: [address] [place] [address] [place] [id number] Performed By: #### 3 024-7, 3016-3, 68522-0, 66718-2 #### [facility] CLIA [id number] [address] [place], [place] [address] [place] TSH SerPl-aCncon 07-10-2024 TSH Qn 4.450 m[IU]/L High 0.270-4.200 [facility] Comment on above: Order Comment: Speci men Type: BLOOD SPECIMEN Ordering Facility: [facility] Address: [address] [place] [address] Performed By: #### 3 024-7, 3016-3, 81538-0, 47000-5 #### [facility] CLIA [id number] [address] [place] [address] [place] Hell[facility]-06-20[facility] CASANDRA HENRY ([id number]) 1940 F Date Time Provider Department 06/06/24 [facility] COR[facility]Z [facility] During your visit today, we recorded [...] more weeks then re-check labs. Sergei Renner APRN.MATHS TUTOR 06/06/2024 2:58 PM Signed Noted, thank you. Sergei Renner APRN.MATHS TUTOR Allergies As of Date: 06/06/2024 Noted Allergy Reaction GLUTEN 08/09/2023 3 - Cough MILK CONTAINING PRODUCTS (DAIRY) 08/09/2023 3 - Cough Date Reviewed: 04/28/2024 Reviewed by: Sergei Renner APRN.MATHS TUTOR - Fully Assessed Reason for Visit: Medication [...] Encounter Status:Closed by SERGEI RENNER on 06/06/24 [facility] Hellen 05-02-2024 SATISHN Telephone (FAMPWS) ELAINECASANDRA ([id number]) 1940 F Date Time Provider Department 05/02/24 SERGEI RENNER [facility] During your visit today, we recorded [...] empty stomach Authorizing Provider: SERGEI RENNER APRN.CNP Rowland, Kathryn, [place] 05/02/2024 4:54 PM Signed Message left [...] Date Reviewed: 04/28/2024 Reviewed by: Sergei Renner APRN.CNP - Fully Assessed Reason for Visit: Results [95] Orders [681] Primary Visit Diagnosis:Hypothyroidi sm, unspecified type [E03.9] Order(s):THYROID STIMULATING HORMONE [SQTSH] Order #: [id number] FUTURE T4 FREE/FREE THYROXINE [SQFT4] Order #: [id number] FUTURE levothyroxine (SYNTHROID) 100 mcg tabletTake 1 [...] Encounter Status:Closed by LAURA LISA on 05/02/24 [facility] CNOVon 04-28-2024 CNOV Office Visit (FAMPWS ) CASANDRA HENRY ([id number]) 1940 F Date Time Provider Department 04/28/24 7:20 AM [facility] During your visit today, we recorded [...] Sees Dr. Stoney Ray, he comes to [facility] once a week on Wednesdays. Past medical history, appointments, medications, allergies reviewed. Previous Medical History PAST MEDICAL HISTORY No date: Acid reflux No date: Hiatal hernia No date: Hypertension No date: Hypothyroid No date: Palpitation Previous Surgical History PAST SURGICAL HISTORY 2000: CARPAL TUNNEL Comment: bilateral 12/05/2013: COLONOSCOPY FLX DX W/COLLJ SPEC WHEN PFRMD Comment: Colonoscopy done in [place] 02/19/2020: COLSC FLX W/REMOVAL LESION BY HOT [...] - LEVOTHYROXINE (more content not included)... Normal [facility] 04-28-2024 SATISHN Telephone (CHRISTINA) CASANDRA HENRY ([id number]) 1940 F Date Time Provider Department 04/28/24 SERGEI RENNER During your visit today, we recorded the following information about you: Sergei Renner APRN.CNP 04/28/2024 1:57 PM Signed Please contact Dr. 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 Patient's blood pressure at [...] Status:Closed by DONITA ESTES on 07/19/24 Normal [facility] Comprehensive metabolic 2000 panelon 04-28-2024 Albumin [Mass/Vol] 4.4 g/dL Normal 3.9-4.9 [facility] Comment on above: Order Comment: Johanne soto Type: BLOOD SPECIMEN Ordering Facility: [facility] Address: [address] [place] [address] Performed By: #### 3 024-7, 3016-3, 83509-5, 80431-0 #### [facility] CLIA [id number] [address] [place] [address] [place] [address] [place] ALP [Catalytic activity/Vol] 133 U/L High 34-123 [facility] Comment on above: Order Comment: Johanne soto Type: BLOOD SPECIMEN Ordering Facility: [facility] Address: [address] [place] [address] Performed By: #### 3 024-7, 3016-3, 69452-4, 47302-1 #### [facility] CLIA [id number] [address] [place] [address] [place] ALT [Catalytic activity/Vol] 14 U/L Normal 7-38 [facility] Comment on above: Order Comment: Speci men Type: BLOOD SPECIMEN Ordering Facility: [facility] Address: [address] [place] [address] Performed By: #### 3 024-7, 3016-3, 32029-6, 02657-7 #### [facility] CLIA [id number] [address] [place] [address] [place] Anion gap [Moles/Vol] 14 mmol/L Normal 8-15 [facility] Comment on above: Order Comment: Speci men Type: BLOOD SPECIMEN Ordering Facility: [facility] Address: [address] [place] [address] Performed By: #### 3 024-7, 3016-3, 85042-6, 49553-3 #### [facility] CLIA [id number] [address] [place] [address] [place] AST [Catalytic activity/Vol] 20 U/L Normal 13-35 [facility] Comment on above: Order Comment: Speci men Type: BLOOD SPECIMEN Ordering Facility: [facility] Address: [address] [place] [address] Performed By: #### 3 024-7, 3016-3, 87193-0, 41723-9 #### [facility] CLIA [id number] [address] [place] [address] [place] Bilirubin [Mass/Vol] 1.4 mg/dL High 0.2-1.3 [facility] Comment on above: Order Comment: Speci men Type: BLOOD SPECIMEN Ordering Facility: [facility] Address: [address] [place] [address] Performed By: #### 3 024-7, 3016-3, 21969-5, 77971-6 #### [facility] CLIA [id number] [address] [place] [address] [place] Calcium [Mass/Vol] 9.7 mg/dL Normal 8.5-10.2 [facility] Comment on above: Order Comment: Speci men Type: BLOOD SPECIMEN Ordering Facility: [facility] Address: [address] [place] [address] Performed By: #### 3 024-7, 3016-3, 94451-5, 93222-7 #### [facility] CLIA [id number] [address] [place] [address] [place] Chloride [Moles/Vol] 97 mmol/L Low 98-107 [facility] Comment on above: Order Comment: Speci men Type: BLOOD SPECIMEN Ordering Facility: [facility] Address: [address] [place] [address] Performed By: #### 3 024-7, 3016-3, 75314-2, 88954-4 #### [facility] CLIA [id number] [address] [place] [address] [place] CO2 [Moles/Vol] 25 mmol/L Normal 22-30 [facility] Comment on above: Order Comment: Speci men Type: BLOOD SPECIMEN Ordering Facility: [facility] Address: [address] [place] [address] Performed By: #### 3 024-7, 3016-3, 73543-1, 42947-4 #### [facility] CLIA [id number] [address] [place] [address] [place] Creatinine [Mass/Vol] 0.85 mg/dL Normal 0.58-0.96 [facility] Comment on above: Order Comment: Speci men Type: BLOOD SPECIMEN Ordering Facility: [facility] Address: [address] [place] [address] Performed By: #### 3 024-7, 3016-3, 39922-3, 38670-4 #### [facility] CLIA [id number] [address] [place] [address] [place] Creatinine and Glomerular filtration rate.predicted panel (S/P/Bld) 69 mL/min/1.73m??? Normal >=60 [facility] Comment on above: Order Comment: Johanne soto Type: BLOOD SPECIMEN Ordering Facility: [facility] Address: [address] [place] [address] Result Comment: Hina mated Glomerular Filtration Rate [...] GFR. Performed By: #### 3 024-7, 3016-3, 61222-1, 45649-3 #### [facility] CLIA [id number] [address] [place] [address] [place] Glucose [Mass/Vol] 93 mg/dL Normal 74-99 [facility] Comment on above: Order Comment: Johanne soto Type: BLOOD SPECIMEN Ordering Facility: [facility] Address: [address] [place] [address] Result Comment: The [place] Diabetes Association (ADA) provides guidance for cutoff [...] Standards of Medical Care in Diabetes 2016, [place] Diabetes Association. Diabetes Care. 2016.39(Suppl 1). Performed By: #### 3 024-7, 3016-3, 98820-6, 94949-5 #### [facility] CLIA [id number] [address] [place] [address] [place] Potassium [Moles/Vol] 4.2 mmol/L Normal 3.7-5.1 [facility] Comment on above: Order Comment: Speci men Type: BLOOD SPECIMEN Ordering Facility: [facility] Address: [address] [place] [address] Performed By: #### 3 024-7, 3016-3, 67230-9, 06123-3 #### [facility] CLIA [id number] [address] [place] [address] [place] Protein [Mass/Vol] 7.1 g/dL Normal 6.3-8.0 [facility] Comment on above: Order Comment: Speci men Type: BLOOD SPECIMEN Ordering Facility: [facility] Address: [address] [place] [address] Performed By: #### 3 024-7, 3016-3, 73779-0, 20223-8 #### [facility] CLIA [id number] [address] [place] [address] [place] Sodium [Moles/Vol] 136 mmol/L Normal 136-144 [facility] Comment on above: Order Comment: Speci men Type: BLOOD SPECIMEN Ordering Facility: [facility] Address: [address] [place] [address] Performed By: #### 3 024-7, 3016-3, 31833-3, 65305-4 #### [facility] CLIA [id number] [address] [place] [address] [place] Urea nitrogen [Mass/Vol] 12 mg/dL Normal 7-21 [facility] Comment on above: Order Comment: Speci men Type: BLOOD SPECIMEN Ordering Facility: [facility] Address: [address] [place] [address] Performed By: #### 3 024-7, 3016-3, 46515-2, 99619-8 #### [facility] CLIA [id number] [address] [place] [address] [place] Ferritin SerPl-mCncon 2023 Ferritin [Mass/Vol] 138.0 ng/mL Normal 14.7-205.1 [facility] Comment on above: Order Comment: Speci men Type: BLOOD SPECIMEN Ordering Facility: [facility] Address: [address] [place] [address] Performed By: #### 3 024-7, 3016-3, 96812-0, 30337-8 #### [facility] CLIA [id number] [address] [place] [address] [place] Iron and Iron binding capaci panel 04-28-2024 Iron [Mass/Vol] 103 ug/dL Normal 41-186 [facility] Comment on above: Order Comment: Speci men Type: BLOOD SPECIMEN Ordering Facility: [facility] Address: [address] [place] [address] Performed By: #### 3 024-7, 3016-3, 03219-4, 21780-6 #### [facility] CLIA [id number] [address] [place] [address] [place] Iron binding capacity [Mass/Vol] 320 ug/dL Normal 232-386 [facility] Comment on above: Order Comment: Speci men Type: BLOOD SPECIMEN Ordering Facility: [facility] Address: [address] [place] [address] Performed By: #### 3 024-7, 3016-3, 89877-3, 14242-6 #### [facility] CLIA [id number] [address] [place] [address] [place] Iron/TIBC [Molar ratio] 32.2 % Normal 15.0-57.0 [facility] Comment on above: Order Comment: Speci men Type: BLOOD SPECIMEN Ordering Facility: [facility] Address: [address] [place] [address] Performed By: #### 3 024-7, 3016-3, 85956-5, 59202-5 #### [facility] CLIA [id number] [address] [place] [address] [place] T4 Free SerPl-mCncon 024 Free T4 [Mass/Vol] 1.2 ng/dL Normal 0.9-1.7 [facility] Comment on above: Order Comment: Speci men Type: BLOOD SPECIMEN Ordering Facility: [facility] Address: [address] [place] [address] Performed By: #### 3 024-7, 3016-3, 18663-5, 77091-2 #### [facility] CLIA [id number] [address] [place] [address] [place] TSH SerPl-aCncon 04-28-2024 TSH Qn 6.310 m[IU]/L High 0.270-4.200 [facility] Comment on above: Order Comment: Speci men Type: BLOOD SPECIMEN Ordering Facility: [facility] Address: [address] [place] [address] Performed By: #### 3 024-7, 3016-3, 49909-8, 95151-2 #### [facility] CLIA [id number] [address] [place] [address] [place] XR Chest PA and Lateralon IMPRESSION: No acute radiographic abnormality. Project Analyst: PSCB Transcribe Date/Time: Nov 06 2023 8:54A Dictated by : ARIC TY DO This examination was interpreted and the report reviewed and electronically signed by: ARIC TY DO on Nov 06 2023 8:54AM [facility] DIVISION OF RADIOLOGY * * *Final Report* [...] soft tissues: Unremarkable. DIVISION OF RADIOLOGY [facility] - 11/06/2023 * * *Final Report* [...] Unremarkable. IMPRESSION IMPRESSION: No acute radiographic abnormality. Project Analyst: DELIA Transcribe Date/Time: Nov 06 2023 8:54A Dictated by : ARIC TY DO This examination was interpreted and the report reviewed and electronically signed by: ARIC TY DO on Nov 06 2023 8:54AM [facility] Radiology Study observation (narrative) Ilir dotson [facility] XR Chest PA and LateralOrder ed By: [facility] Provider on 11-06-2023 [facility] URINE CULTUREon 07-28-2023 Bacteria identified Cx Nom (U) No growth (<1,000 CFU/ml) [facility] Comprehensive metabolic 2000 panelon 07-02-2023 Albumin [Mass/Vol] 3.8 g/dL Low 3.9 - 4.9 g/dL [facility] ALP [Catalytic activity/Vol] 97 U/L 34 - 123 U/L [facility] ALT [Catalytic activity/Vol] 15 U/L 7 - 38 U/L [facility] Anion gap [Moles/Vol] 13 mmol/L 9 - 18 mmol/L [facility] AST [Catalytic activity/Vol] 19 U/L 13 - 35 U/L [facility] Bilirubin [Mass/Vol] 1.1 mg/dL 0.2 - 1 .3 mg/dL [facility] Calcium [Mass/Vol] 8.8 mg/dL 8.5 - 10. 2 mg/dL [facility] Chloride [Moles/Vol] 93 mmol/L Low 97 - 10 5 mmol/L [facility] CO2 [Moles/Vol] 20 mmol/L Low 22 - 30 mmol/L [facility] Creatinine [Mass/Vol] 0.89 mg/dL 0.58 - 0.96 mg/dL [facility] Estimated Glomerular Filtration Rate 65 mL/min/1.73m >=60 mL/min/1.73m [facility] Glucose [Mass/Vol] 97 mg/dL 74 - 99 mg/dL [facility] Potassium [Moles/Vol] 4.6 mmol/L 3.7 - 5.1 mmol/L [facility] Protein [Mass/Vol] 6.1 g/dL Low 6.3 - 8.0 g/dL [facility] Sodium [Moles/Vol] 126 mmol/L Low 136 - 144 mmol/L [facility] Urea nitrogen [Mass/Vol] 9 mg/dL 7 - 21 mg/d L [facility] Absolute lymphocyte countOrd ered By: Josselyn Adhikari on 06-29-2023 Lymphocytes Auto (Unsp spec) [#/Vol] 1.63 10*3/uL 0.83-4.51 [facility] Basophil percentageOrdered B y: Josselyn Adhikari on 06-29-2023 Basophil percentage 0 SEEN /hpf 0-5 [facility] Basophils/100 WBC (Bld) 0.3 % 0-[address] [facility] Chloride [Moles/Vol] 97 mmol/L 98-107 [facility] Eosinophils/100 WBC (Bld) 3.6 % 0-5 [facility] Glucose [Mass/Vol] 102 mg/dL 74-106 [facility] Comment on above: Fasting Glucose resu lt from 100 to 125 mg/dL suggests IMPAIRED HOMEOSTASIS per A.D.A. criteria. Neutrophils (Bld) [#/Vol] 6.1 10*3/uL 2.0-7.7 [facility] Neutrophils/100 WBC (Bld) 67.9 % 47-70 [facility] Potassium [Moles/Vol] 4.5 mmol/L 3.5-5.1 [facility] Sodium [Moles/Vol] 128 mmol/L 136-145 [facility] WBC (Bld) [#/Vol] 9.1 10*3/uL 4.4-11.0 [facility] Bilirubin Test strip Ql (U)O rdered By: Josselyn Adhikari on 06-29-2023 Bilirubin Ql (U) Negative Negative [facility] Blood erythrocytes count (nu mber/volume)Ordered By: Josselyn Adhikari on 06-29-2023 RBC (Bld) [#/Vol] 3.58 10*6/uL 4.2-5.4 [facility] Blood hemoglobin measurement (mass/volume)Ordered By: Josselyn Adhikari on 06-29-2023 Hemoglobin (Bld) [Mass/Vol] 10.9 g/dL 12.0-15.0 [facility] Blood lymphocytes/100 leukoc ytesOrdered By: Josselyn Adhikari on 06-29-2023 Lymphocytes/100 WBC (Bld) 18.0 % 19-41 [facility] Blood monocytes/100 leukocyt esOrdered By: Josselyn Adhikari on 06-29-2023 Monocytes/100 WBC (Bld) 9.5 % 0-[address] [facility] Blood platelet mean volumeOr dered By: Josselyn Adhikari on 06-29-2023 Platelet mean volume (Bld) [Entitic vol] 9.1 fL 6.2-12.0 [facility] Determination of erythrocyte mean corpuscular volume (MCV)Ordered By: Josselyn Adhikari on 06-29-2023 MCV (RBC) [Entitic vol] 90.8 fL 81-[address] [facility] Hematocrit Auto (Bld) [Volum e fraction]Ordered By: Josselyn Adhikari on 06-29-2023 Hematocrit (Bld) [Volume fraction] 32.5 % 37-47 [facility] Ketones Test strip Ql (U)Ord ered By: Josselyn Adhikari on 06-29-2023 Ketones Ql (U) Negative Negative [facility] Laboratory - Chemistry and C hemistry - challengeOrdered By: Josselyn Adhikari on 06-29-2023 CO2 [Moles/Vol] 25.0 mmol/L 21.0-32.0 [facility] Urea nitrogen/Creatinine [Mass ratio] 11.9 mg/mg 10-20 [facility] Laboratory - Hematology and Cell countsOrdered By: Josselyn Adhikari on 06-29-2023 Erythrocyte distribution width (RBC) [Entitic vol] 38.9 fL 35.1-43.9 [facility] Erythrocyte distribution width (RBC) [Ratio] 11.8 % 11.6-14.6 [facility] Immature granulocytes/100 WBC (Bld) 0.700 % 0.0-0.9 [facility] Comment on above: IG% - Immature Granu locytes (promyelocytes, myelocytes and metamyelocytes) > 1% indicates that a LEFT SHIFT is Present. MCH (RBC) [Entitic mass] 30.4 pg 27.0-32.0 [facility] Nucleated RBC/100 WBC (Bld) [Ratio] 0 % 0-5 [facility] MCHC Auto (RBC) [Mass/Vol]Or dered By: Josselyn Adhikari on 06-29-2023 MCHC (RBC) [Mass/Vol] 33.5 g/dL 32-36 [facility] Mucus LM Ql (Urine sed)Order ed By: Josselyn Adhikari on 06-29-2023 Mucus Ql (Urine sed) 0 SEEN /hpf [facility] Nitrite Test strip Ql (U)Ord ered By: Josselyn Adhikari on 06-29-2023 Nitrite Ql (U) Negative Negative [facility] No Panel InformationOrdered By: Josselyn Adhikari on 06-29-2023 Estimated Creatinine Clearance Calc 35.80 ml/min [facility] Estimated GFR (MDRD) Amer 75 mL/min >60 [facility] Comment on above: GFR Calc Estimated GFR (MDRD) Non-Af Amer 62 mL/min >60 [facility] Comment on above: Non- GFR Calc Troponin I High Sensitivity 8 pg/mL 3.0-54.0 [facility] Comment on above: Please Note: New Kimmy t Units and Gender Specific Reference Ranges. For more information see Policy Stat Procedure D [facility] High Sensitivity Troponin (TNIH) and attachments. Platelets bldOrdered By: Wendy neil Onofre on 06-29-2023 Platelets (Bld) [#/Vol] 338 10*3/uL 150-450 [facility] Protein Test strip Ql (U)Ord ered By: Wendyus Adhikari on 06-29-2023 Protein Ql (U) Negative Negative [facility] Serum or plasma calcium lillie urement (mass/volume)Ordered By: Josselyn Adhikari on 06-29-2023 Calcium [Mass/Vol] 9.1 mg/dL 8.5-10.1 [facility] Serum or plasma creatinine m easurement (mass/volume)Ordered By: Wendyus Adhikari on 06-29-2023 Creatinine [Mass/Vol] 0.93 mg/dL 0.55-1.02 [facility] Comment on above: The validity of the calculated GFR & GFRAA in patients over 70 years has not been determined. Clinical correlation is essential. Serum or plasma urea nitroge n measurement (mass/volume)Ordered By: Wendyus Adhikari on 06-29-2023 Urea nitrogen [Mass/Vol] 11 mg/dL 7-18 [facility] Squamous epithelial cells de tection in urine sediment by light microscopyOrdered By: Josselyn Adhikari on 06-29-2023 Epithelial cells.squamous LM Ql (Urine sed) 0 SEEN /hpf 5-10 [facility] Thin prep Papanicolaou smear with manual screeningOrdered By: Josselyn Adhikari on 06-29-2023 Thin prep Papanicolaou smear with manual screening 6 5-15 [facility] Urine blood detectionOrdered By: Josselyn Adhikari on 06-29-2023 RBC Ql (U) Negative Negative [facility] RBC Ql (U) 0 SEEN /hpf 0-5 [facility] Urine clarityOrdered By: Wendy neil Onofre on 06-29-2023 Clarity (U) Clear Clear [facility] Urine color determinationOrd ered By: Josselyn Adhikari on 06-29-2023 Color (U) Yellow Yellow [facility] Urine glucose detectionOrder ed By: Josselyn Adhikari on 06-29-2023 Glucose Ql (U) Normal mg/dl Normal [facility] Urine leukocyte esterase det ection by dipstickOrdered By: Josselyn Adhikari on 06-29-2023 Leukocyte esterase Test strip Ql (U) 25 /ul Negative [facility] Urine pHOrdered By: Josselyn Un gur on 06-29-2023 pH (U) 7.0 [pH] 5.0 - 8.0 [facility] Urine sediment bacteria coun t by microscopy (number/high power field)Ordered By: Josselyn Adhikari on 06-29-2023 Bacteria LM.HPF (Urine sed) [#/Area] 0 /[HPF] None Seen [facility] Urine specific gravity measu rementOrdered By: Josselyn Adhikari on 06-29-2023 Specific gravity (U) [Rel density] 1.005 1.002-1.030 [facility] Urobilinogen Auto test strip Ql (U)Ordered By: Josselyn Adhikari on 06-29-2023 Urobilinogen Ql (U) Normal mg/dl Normal [facility] CBC W Auto Differential pane l (Bld)on 06-16-2023 Basophils (Bld) [#/Vol] 0.05 10*3/uL <0.11 k/uL [facility] Basophils/100 WBC (Bld) 0.4 % [facility] Differential cell count method Nom (Bld) Auto [facility] Eosinophils (Bld) [#/Vol] 0.35 10*3/uL <0.46 k/uL [facility] Eosinophils/100 WBC (Bld) 2.8 % [facility] Erythrocyte distribution width (RBC) [Ratio] 11.9 % 11.5 - 15.0 % [facility] Hematocrit (Bld) [Volume fraction] 37.1 % 36.0 - 46.0 % [facility] Hemoglobin (Bld) [Mass/Vol] 12.4 g/dL 11.5 - 15.5 g/dL [facility] Immature granulocytes (Bld) [#/Vol] 0.05 10*3/uL <0.10 k/uL [facility] Immature granulocytes/100 WBC (Bld) 0.4 % [facility] Lymphocytes (Bld) [#/Vol] 2.24 10*3/uL 1.00 - 4.00 k/uL [facility] Lymphocytes/100 WBC (Bld) 18.1 % [facility] MCH (RBC) [Entitic mass] 30.5 pg 26. 0 - 34.0 pg [facility] MCHC (RBC) [Mass/Vol] 33.4 g/dL 30.5 - 36.0 g/dL [facility] MCV (RBC) [Entitic vol] 91.4 fL 80.0 - 100.0 fL [facility] Monocytes (Bld) [#/Vol] 1.18 10*3/uL High <0.87 k/uL [facility] Monocytes/100 WBC (Bld) 9.5 % C [facility] Neutrophils (Bld) [#/Vol] 8.52 10*3/uL High 1.45 - 7.50 k/uL [facility] Neutrophils/100 WBC (Bld) 68.8 % [facility] Nucleated RBC (Bld) [#/Vol] <0.01 k/uL [facility] Nucleated RBC/100 WBC (Bld) [Ratio] 0.0 /100 WBC [facility] Platelet mean volume (Bld) [Entitic vol] 10.3 fL 9.0 - 12.7 fL [facility] Platelets (Bld) [#/Vol] 332 10*3/uL 150 - 400 k/uL [facility] RBC (Bld) [#/Vol] 4.06 10*6/uL 3.90 - 5.2 0 m/uL [facility] WBC (Bld) [#/Vol] 12.39 10*3/uL High 3.70 - 11 .00 k/uL [facility] Comprehensive metabolic 2000 panelon 06-16-2023 Albumin [Mass/Vol] 4.1 g/dL 3.9 - 4.9 g/dL [facility] ALP [Catalytic activity/Vol] 127 U/L High 34 - 123 U/L [facility] ALT [Catalytic activity/Vol] 14 U/L 7 - 38 U/L [facility] Anion gap [Moles/Vol] 15 mmol/L 9 - 18 mmol/L [facility] AST [Catalytic activity/Vol] 21 U/L 13 - 35 U/L [facility] Bilirubin [Mass/Vol] 1.2 mg/dL 0.2 - 1 .3 mg/dL [facility] Calcium [Mass/Vol] 9.6 mg/dL 8.5 - 10. 2 mg/dL [facility] Chloride [Moles/Vol] 95 mmol/L Low 97 - 10 5 mmol/L [facility] CO2 [Moles/Vol] 19 mmol/L Low 22 - 30 mmol/L [facility] Creatinine [Mass/Vol] 0.93 mg/dL 0.58 - 0.96 mg/dL [facility] Estimated Glomerular Filtration Rate 62 mL/min/1.73m >=60 mL/min/1.73m [facility] Glucose [Mass/Vol] 100 mg/dL High 74 - 99 mg/dL [facility] Potassium [Moles/Vol] 4.8 mmol/L 3.7 - 5.1 mmol/L [facility] Protein [Mass/Vol] 7.0 g/dL 6.3 - 8.0 g/dL [facility] Sodium [Moles/Vol] 129 mmol/L Low 136 - 144 mmol/L [facility] Urea nitrogen [Mass/Vol] 12 mg/dL 7 - 21 mg/d L [facility] UA DIP, URINE (POC)on 2022 BILIRUBIN UA (POCT) Negative Negative [facility] CLARITY UA (POCT) Clear [facility] COLOR UA (POCT) Yellow [facility] GLUCOSE UA (POCT) Negative Negative mg/dL [facility] Hemoglobin Ql (U) Negative Negative [facility] KETONE UA (POCT) Negative Negative mg/dL [facility] LEUKOCYTES UA (POCT) Small Abnormal Negative [facility] NITRITE UA (POCT) Negative Negative [facility] PH UA (POCT) 6.5 4.5 - 8.0 [facility] Protein Ql (U) Negative Negative mg/dL [facility] SPECIFIC GRAVITY UA (POCT) 1.010 1.005 - 1.030 [facility] UROBILINOGEN UA (POCT) 0.2 E.U./dL Bre l E.U./dL [facility] UA DIP, URINE (POC)on 2022 BILIRUBIN UA (POCT) Negative Negative [facility] CL[facility]ITY [facility] (POCT) [facility] COLOR UA (POCT) Yellow [facility] GLUCOSE UA (POCT) Negative Negative mg/dL [facility] HEMOGLOBIN/BLOOD UA (POCT) Negative Negative [facility] KETONE UA (POCT) Negative Negative mg/dL [facility] LEUKOCYTES UA (POCT) Trace Abnormal Negative [facility] NITRITE UA (POCT) Negative Negative [facility] PH UA (POCT) 6.0 4.5 - 8.0 [facility] Protein Ql (U) Negative Negative mg/dL [facility] SPECIFIC GRAVITY UA (POCT) 1.010 1.005 - 1.030 [facility] UROBILINOGEN UA (POCT) 0.2 E.U./dL Bre l E.U./dL [facility] Absolute lymphocyte countOrd ered By: Frederick Carrasco on 03-20-2023 Lymphocytes Auto (Unsp spec) [#/Vol] 2.05 10*3/uL 0.83-4.51 [facility] Basophil percentageOrdered B y: Frederick Carrasco on 03-20-2023 Basophil percentage 10-25 SEEN /hpf 0-5 [facility] Basophils/100 WBC (Bld) 0.3 % 0-1 [facility] Chloride [Moles/Vol] 94 mmol/L 98-107 [facility] Eosinophils/100 WBC (Bld) 4.3 % 0-5 [facility] Glucose [Mass/Vol] 120 mg/dL 74-106 [facility] Comment on above: Fasting Glucose resu lt from 100 to 125 mg/dL suggests IMPAIRED HOMEOSTASIS per A.D.A. criteria. Neutrophils (Bld) [#/Vol] 5.8 10*3/uL 2.0-7.7 [facility] Neutrophils/100 WBC (Bld) 63.0 % 47-70 [facility] Potassium [Moles/Vol] 4.3 mmol/L 3.5-5.1 [facility] Sodium [Moles/Vol] 127 mmol/L 136-145 [facility] WBC (Bld) [#/Vol] 9.2 10*3/uL 4.4-11.0 [facility] Bilirubin Test strip Ql (U)O rdered By: Frederick Carrasco on 03-20-2023 Bilirubin Ql (U) Negative Negative [facility] Blood erythrocytes count (nu mber/volume)Ordered By: Frederick Carrasco on 03-20-2023 RBC (Bld) [#/Vol] 4.17 10*6/uL 4.2-5.4 [facility] Blood hemoglobin measurement (mass/volume)Ordered By: Frederick Carrasco on 03-20-2023 Hemoglobin (Bld) [Mass/Vol] 13.0 g/dL 12.0-15.0 [facility] Blood lymphocytes/100 leukoc ytesOrdered By: Frederick Carrasco on 03-20-2023 Lymphocytes/100 WBC (Bld) 22.2 % 19-41 [facility] Blood monocytes/100 leukocyt esOrdered By: Frederick Carrasco on 03-20-2023 Monocytes/100 WBC (Bld) 9.9 % 0-[address] [facility] Blood platelet mean volumeOr dered By: Frederick Carrasco on 03-20-2023 Platelet mean volume (Bld) [Entitic vol] 8.6 fL 6.2-12.0 [facility] Culture, urineOrdered By: Raman Carrasco on 03-20-2023 Bacteria identified Cx Nom (U) Positive [facility] Determination of erythrocyte mean corpuscular volume (MCV)Ordered By: Frederick Carrasco on 03-20-2023 MCV (RBC) [Entitic vol] 89.2 fL 81-[address] [facility] Hematocrit Auto (Bld) [Volum e fraction]Ordered By: Frederick Carrasco on 03-20-2023 Hematocrit (Bld) [Volume fraction] 37.2 % 37-47 [facility] Ketones Test strip Ql (U)Ord ered By: Frederick Carrasco on 03-20-2023 Ketones Ql (U) Negative Negative [facility] Laboratory - Chemistry and C hemistry - challengeOrdered By: Frederick Carrasco on 03-20-2023 CO2 [Moles/Vol] 28.0 mmol/L 21.0-32.0 [facility] Urea nitrogen/Creatinine [Mass ratio] 11.9 mg/mg 10-20 [facility] Laboratory - Hematology and Cell countsOrdered By: Frederick Carrasco on 03-20-2023 Erythrocyte distribution width (RBC) [Entitic vol] 37.2 fL 35.1-43.9 [facility] Erythrocyte distribution width (RBC) [Ratio] 11.5 % 11.6-14.6 [facility] Immature granulocytes/100 WBC (Bld) 0.300 % 0.0-0.9 [facility] Comment on above: IG% - Immature Granu locytes (promyelocytes, myelocytes and metamyelocytes) > 1% indicates that a LEFT SHIFT is Present. MCH (RBC) [Entitic mass] 31.2 pg 27.0-32.0 [facility] Nucleated RBC/100 WBC (Bld) [Ratio] 0 % 0-5 [facility] MCHC Auto (RBC) [Mass/Vol]Or dered By: Frederick Carrasco on 03-20-2023 MCHC (RBC) [Mass/Vol] 34.9 g/dL 32-36 [facility] Mucus LM Ql (Urine sed)Order ed By: Frederick Carrasco on 03-20-2023 Mucus Ql (Urine sed) 0 SEEN /hpf [facility] Nitrite Test strip Ql (U)Ord ered By: Frederick Carrasco on 03-20-2023 Nitrite Ql (U) Negative Negative [facility] No Panel InformationOrdered By: Frederick Carrasco on 03-20-2023 Estimated Creatinine Clearance Calc 30.54 ml/min [facility] Estimated GFR (MDRD) Amer 62 mL/min >60 [facility] Comment on above: GFR Calc Estimated GFR (MDRD) Non-Af Amer 51 mL/min >60 [facility] Comment on above: Non- GFR Calc Troponin I High Sensitivity 5 pg/mL 3.0-54.0 [facility] Comment on above: Please Note: New Kimmy t Units and Gender Specific Reference Ranges. For more information see Policy Stat Procedure D [facility] High Sensitivity Troponin (TNIH) and attachments. Platelets bldOrdered By: Katerina Carrasco on 03-20-2023 Platelets (Bld) [#/Vol] 353 10*3/uL 150-450 [facility] Protein Test strip Ql (U)Ord ered By: Frederick Carrasco on 03-20-2023 Protein Ql (U) Negative Negative [facility] Serum or plasma calcium lillie urement (mass/volume)Ordered By: Frederick Carrasco on 03-20-2023 Calcium [Mass/Vol] 9.3 mg/dL 8.5-10.1 [facility] Serum or plasma creatinine m easurement (mass/volume)Ordered By: Frederick Carrasco on 03-20-2023 Creatinine [Mass/Vol] 1.09 mg/dL 0.55-1.02 [facility] Comment on above: The validity of the calculated GFR & GFRAA in patients over 70 years has not been determined. Clinical correlation is essential. Serum or plasma urea nitroge n measurement (mass/volume)Ordered By: Frederick Carrasco on 03-20-2023 Urea nitrogen [Mass/Vol] 13 mg/dL 7-18 [facility] Squamous epithelial cells de tection in urine sediment by light microscopyOrdered By: Frederick Carrasco on 03-20-2023 Epithelial cells.squamous LM Ql (Urine sed) 0 SEEN /hpf 5-10 [facility] Thin prep Papanicolaou smear with manual screeningOrdered By: Frederick Carrasco on 03-20-2023 Thin prep Papanicolaou smear with manual screening 5 5-15 [facility] Urine blood detectionOrdered By: Frederick Carrasco on 03-20-2023 RBC Ql (U) Negative Negative [facility] RBC Ql (U) 0 SEEN /hpf 0-5 [facility] Urine clarityOrdered By: Katerina Carrasco on 03-20-2023 Clarity (U) Clear Clear [facility] Urine color determinationOrd ered By: Frederick Carrasco on 03-20-2023 Color (U) Yellow Yellow [facility] Urine glucose detectionOrder ed By: Frederick Carrasco on 03-20-2023 Glucose Ql (U) Normal mg/dl Normal [facility] Urine leukocyte esterase det ection by dipstickOrdered By: Frederick Carrasco on 03-20-2023 Leukocyte esterase Test strip Ql (U) 500 /ul Negative [facility] Urine pHOrdered By: Frederick yan on 03-20-2023 pH (U) 6.5 [pH] 5.0 - 8.0 [facility] Urine sediment bacteria coun t by microscopy (number/high power field)Ordered By: Frederick Carrasco on 03-20-2023 Bacteria LM.HPF (Urine sed) [#/Area] 1 /[HPF] None Seen [facility] Urine specific gravity measu rementOrdered By: Frederick Carrasco on 03-20-2023 Specific gravity (U) [Rel density] 1.005 1.002-1.030 [facility] Urobilinogen Auto test strip Ql (U)Ordered By: Frederick Carrasco on 03-20-2023 Urobilinogen Ql (U) Normal mg/dl Normal [facility] XR Lumbar spine 3 Viewson IMPRESSION: MULTILEVEL DEGENERATIVE CHANGE. 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 DEXTROSCOLIOSIS Project Analyst: DELIA Transcribe Date/Time: Dec 28 2022 4:30P Dictated by : REINALDO CALVERT MD This examination was interpreted and the report reviewed and electronically signed by: REINALDO CALVERT MD on Dec 28 2022 4:32PM [facility] DIVISION OF RADIOLOGY * * *Final Report* [...] and hips bilaterally. DIVISION [facility] RADIOLOGY [facility] * * *Final Report* * [...] 1 SPONDYLOLISTHESIS OF L4 ON L5. DEXTROSCOLIOSIS Project Analyst: DELIA Transcribe Date/Time: Dec 28 2022 4:30P Dictated by : REINALDO CALVERT MD This examination was interpreted and the report reviewed and electronically signed by: REINALDO CALVERT MD on Dec 28 2022 4:32PM EST [facility] XR Lumbar spine 3 ViewsOrder ed By: [facility] Provider on 12-28-2022 [facility] XR LUMBAR GENERAL 3V AP/LAT/ L5-S1on 12-25-2022 [facility] XR Lumbar spine 3 [facility] Radiology Study observation (narrative) [facility] UA DIP, URINE (POC)on 2021 BILIRUBIN UA (POCT) Negative Negative [facility] CLARITY UA (POCT) Clear [facility] COLOR UA (POCT) Yellow [facility] GLUCOSE UA (POCT) Negative Negative mg/dL [facility] HEMOGLOBIN/BLOOD UA (POCT) Negative Negative [facility] KETONE UA (POCT) Negative Negative mg/dL [facility] LEUKOCYTES UA (POCT) Small Abnormal Negative [facility] NITRITE UA (POCT) Negative Negative [facility] PH UA (POCT) 6.5 4.5 - 8.0 [facility] Protein Ql (U) Negative Negative mg/dL [facility] SPECIFIC GRAVITY UA (POCT) 1.025 1.005 - 1.030 [facility] UROBILINOGEN UA (POCT) 0.2 E.U./dL Bre l E.U./dL [facility] MG Mammogram Digital Screeni ng Blon 02-24-2017 MG Mammogram Digital Screening Bl Patient Name: CASANDRA HENRY Mammography Exam Date/Time 02/24/2017 09:12:27 EDT Exam MG Mammogram Digital Screening Bl Ordering Physician DO MARIN NICOLE LEE Accession Number [id number] CPT4 Codes 33134 () Reason For Exam Screening Report PATIENT [...] 26, 2015, bilateral screening mammogram performed at [facility]. November 05, 2014, bilateral screening mammogram performed at [facility]. July 27, 2013, bilateral screening mammogram, performed at [facility]. There are scattered fibroglandular densities. No suspicious masses, architectural distortions or suspiciously clustered microcalcifications are identified. There are no significant changes when compared with prior studies. Markings on images: BB's = Nipples; skin lesions Open [place] = Palpable Line = Scar 2D digital mammography imaging was performed and reviewed with CAD. ASSESSMENT: Category 1 Negative No mammographic evidence of malignancy. RECOMMENDATION: Routine screening mammogram of both breasts in 1 year. Final Signed Date and Time: 03/01/2017 11:44 am Signed by: MD VALLEJO LAUREN B [facility] Vital Signs Date Time Vital Sign Value Performing Clinician Facility 2025 [id number] Body mass index (BMI) [Ratio] 25.2 kg/m2 Margoth Chavez APRN.CNP Work Phone: [facility] 2025 11:14-0400 Body weight 62.51 kg Margoth Chavez APRN.CNP Work Phone: [facility] 2025 11:14-040 Diastolic blood pressure 62 mm[Hg] Margoth Chavez APRN.CNP Work Phone: [facility] 2025 11:14-0400 Heart rate 88 /min Margoth Chavez APRN.CNP Work Phone: [facility] 2025 11:14-0400 Respiratory rate 12 /min Margoth Scott PALM GATHERER.MATHS TUTOR Work Phone: [facility] 2025 11:14-0400 SaO2% (BldA) [Mass fraction] 98 % Margoth Scott PALM GATHERER.MATHS TUTOR Work Phone: [facility] 2025 11:14-0400 Systolic blood pressure 120 mm[Hg] Margoth Scott PALM GATHERER.MATHS TUTOR Work Phone: [facility] 02-26-2025 09:07-0400 Body mass index (BMI) [Ratio] 25.72 kg/m2 Margoth Scott PALM GATHERER.MATHS TUTOR Work Phone: [facility] 02-26-2025 09:07-0400 Body weight 63.78 kg Margoth Scott PALM GATHERER.MATHS TUTOR Work Phone: [facility] 02-26-2025 09:07-0400 Diastolic blood pressure 80 mm[Hg] Margoth Scott PALM GATHERER.MATHS TUTOR Work Phone: [facility] 02-26-2025 09:07-0400 Heart rate 75 /min Margoth Scott PALM GATHERER.MATHS TUTOR Work Phone: [facility] 02-26-2025 09:07-0400 SaO2% (BldA) [Mass fraction] 96 % Margoth Scott PALM GATHERER.MATHS TUTOR Work Phone: [facility] 02-26-2025 09:07-0400 Systolic blood pressure 170 mm[Hg] Margoth Scott PALM GATHERER.MATHS TUTOR Work Phone: [facility] 02-22-2025 08:03-0400 Body temperature 97.8 [degF] Dr. Sreekanth Cortez DO Work Phone: [facility] 02-22-2025 08:03-0400 Diastolic blood pressure 77 mm[Hg] Dr. Sreekanth Cortez DO Work Phone: [facility] 02-22-2025 08:03-0400 Heart rate 74 /min Dr. Sreekanth Cortez DO Work Phone: [phone] [place] [address] 02-22-2025 08:03-0400 Respiratory rate 16 /min Dr. Sreekanth Cortez DO Work Phone: [phone] [place] [address] 02-22-2025 08:03-0400 SaO2% (BldA) [Mass fraction] 99 % Dr. Sreekanth Cortez DO Work Phone: [phone] [place] [address] 02-22-2025 08:03-0400 Systolic blood pressure 148 mm[Hg] Dr. Sreekanth Cortez DO Work Phone: [phone] [place] [address] 02-22-2025 06:07-0400 Body height 154.[address] Sreekanth Cortez DO Work Phone: 6([phone] [place] [address] 02-22-2025 06:07-0400 Body mass index (BMI) [Ratio] 26.4 kg/m2 Dr. Sreekanth Cortez DO Work Phone: 4([phone] [place] [address] 02-22-2025 06:07-0400 Body weight 63.[address] Sreekanth Cortez DO Work Phone: [phone])[phone] [place] [address] 02-19-2025 13:22-0400 Diastolic blood pressure 80 mm[Hg] Margoth Scott PALM GATHERER.MATHS TUTOR Work Phone: 0(366)[phone] [place] [address] 02-19-2025 13:22-0400 Systolic blood pressure 170 mm[Hg] Margoth Scott PALM GATHERER.MATHS TUTOR Work Phone: 2(274)[phone] [place] [address] 02-19-2025 12:35-0400 Body mass index (BMI) [Ratio] 26.25 kg/m2 Margoth Scott PALM GATHERER.MATHS TUTOR Work Phone: 0(704)[phone] [place] [address] 02-19-2025 12:35-0400 Body weight 64.05 kg Margoth Scott PALM GATHERER.MATHS TUTOR Work Phone: [facility] 02-19-2025 12:35-0400 Heart rate 68 /min Margoth Scott PALM GATHERER.MATHS TUTOR Work Phone: [facility] 02-19-2025 12:35-0400 Respiratory rate 16 /min Margoth Scott PALM GATHERER.MATHS TUTOR Work Phone: [facility] 02-19-2025 12:35-0400 SaO2% (BldA) [Mass fraction] 98 % Margoth Chavez PALM GATHERER.MATHS TUTOR Work Phone: [facility] 02-05-2025 08:41-0400 Body mass index (BMI) [Ratio] 26.4 kg/m2 Sreekanth Cortez DO Work Phone: [facility] 02-05-2025 08:41-0400 Body temperature 98.71 [degF] Sreekanth Cortez DO Work Phone: [facility] 02-05-2025 08:41-0400 Body weight 64.41 kg Sreekanth Cortez DO Work Phone: [facility] 02-05-2025 08:41-0400 Diastolic blood pressure 80 mm[Hg] Sreekanth Cortez DO Work Phone: [facility] 02-05-2025 08:41-0400 Heart rate 84 /min Sreekanth Cortez DO Work Phone: [facility] 02-05-2025 08:41-0400 Respiratory rate 20 /min Sreekanth Cortez DO Work Phone: [facility] 02-05-2025 08:41-0400 Systolic blood pressure 180 mm[Hg] Sreekanth Cortez DO Work Phone: [facility] 12-25-2024 13:45-0400 Diastolic blood pressure 87 mm[Hg] Maribeth Podlogar PALM GATHERER.MATHS TUTOR Work Phone: [facility] Comment on above: ANTONIETA BP average 12-25-2024 13:45-0400 Heart rate 71 /min Maribeth Podlogar PALM GATHERER.MATHS TUTOR Work Phone: [facility] 12-25-2024 13:45-0400 Systolic blood pressure 199 mm[Hg] Maribeth Podlogar PALM GATHERER.MATHS TUTOR Work Phone: [facility] Comment on above: ANTONIETA BP average 12-25-2024 13:16-0400 Body mass index (BMI) [Ratio] 26.28 kg/m2 Maribeth Jamesonlogar PALM GATHERER.MATHS TUTOR Work Phone: [facility] 12-25-2024 13:16-0400 Body weight 64.14 kg Maribeth Podlogar PALM GATHERER.MATHS TUTOR Work Phone: [facility] 12-25-2024 13:16-0400 Respiratory rate 18 /min Maribeth Podlogar PALM GATHERER.MATHS TUTOR Work Phone: [facility] 12-25-2024 13:16-0400 SaO2% (BldA) [Mass fraction] 96 % Maribeth Podlogar PALM GATHERER.MATHS TUTOR Work Phone: [facility] 08-08-2024 08:52-0500 Body mass index (BMI) [Ratio] 26.77 kg/m2 Sreekanth Cortez DO Work Phone: [facility] 08-08-2024 08:52-0500 Body temperature 97.5 [degF] Sreekanth Cortez DO Work Phone: [facility] 08-08-2024 08:52-0500 Body weight 65.32 kg Sreekanth Cortez DO Work Phone: [facility] 08-08-2024 08:52-0500 Diastolic blood pressure 80 mm[Hg] Sreekanth Cortez DO Work Phone: [facility] 08-08-2024 08:52-0500 Heart rate 80 /min Sreekanth Cortez DO Work Phone: [facility] 08-08-2024 08:52-0500 Respiratory rate 16 /min Sreekanth Cortez DO Work Phone: [facility] 08-08-2024 08:52-0500 Systolic blood pressure 140 mm[Hg] Sreekanth Cortez DO Work Phone: [facility] 04-28-2024 08:22-0400 Diastolic blood pressure 80 mm[Hg] Sergei Renner PALM GATHERER.MATHS TUTOR Work Phone: [facility] Comment on above: bp antonieta average 04-28-2024 08:22-0400 Systolic blood pressure 154 mm[Hg] Sergei Zurdo PALM GATHERER.MATHS TUTOR Work Phone: [facility] Comment on above: bp antonieta average 04-28-2024 07:35-0400 Body mass index (BMI) [Ratio] 25.88 kg/m2 Sergei Renner PALM GATHERER.MATHS TUTOR Work Phone: [facility] 04-28-2024 07:35-0400 Body weight 63.14 kg Sergei Renner PALM GATHERER.MATHS TUTOR Work Phone: [facility] 04-28-2024 07:35-0400 Heart rate 66 /min Sergei Renner PALM GATHERER.MATHS TUTOR Work Phone: [facility] 04-28-2024 07:35-0400 Respiratory rate 16 /min Sergei Quijanoman PALM GATHERER.MATHS TUTOR Work Phone: [facility] 04-28-2024 07:35-0400 SaO2% (BldA) [Mass fraction] 97 % Sergei Renner PALM GATHERER.MATHS TUTOR Work Phone: [facility] 03-23-2024 08:11-0400 Body height 156.2 cm Delilah Cabrera DO Work Phone: [facility] 03-23-2024 08:11-0400 Body mass index (BMI) [Ratio] 25.82 kg/m2 Delilah Ungeralfitkylah DO Work Phone: [facility] 03-23-2024 08:11-0400 Body weight 63 kg Delilah Amalfitkylah DO Work Phone: [facility] 03-23-2024 08:11-0400 Diastolic blood pressure 90 mm[Hg] Delilah Amalfitkylah DO Work Phone: [facility] 03-23-2024 08:11-0400 Heart rate 67 /min Delilah Ungeralfitkylah DO Work Phone: [facility] 03-23-2024 08:11-0400 SaO2% (BldA) [Mass fraction] 97 % Delilah Calvofitkylah DO Work Phone: [facility] 03-23-2024 08:11-0400 Systolic blood pressure 152 mm[Hg] Delilah Deborah DO Work Phone: [facility] 02-14-2024 09:52-0400 Body mass index (BMI) [Ratio] 25.84 kg/m2 Sreekanth Cortez DO Work Phone: [facility] 02-14-2024 09:52-0400 Body temperature 97.3 [degF] Sreekanth Cortez DO Work Phone: [facility] 02-14-2024 09:52-0400 Body weight 63.05 kg Sreekanth Cortez DO Work Phone: [facility] 02-14-2024 09:52-0400 Diastolic blood pressure 90 mm[Hg] Sreekanth Cortez DO Work Phone: [facility] 02-14-2024 09:52-0400 Heart rate 64 /min Sreekanth Cortez DO Work Phone: [facility] 02-14-2024 09:52-0400 Respiratory rate 16 /min Sreekanth Cortez DO Work Phone: [facility] 02-14-2024 09:52-0400 Systolic blood pressure 160 mm[Hg] Sreekanth Cortez DO Work Phone: [facility] 11-24-2023 08:19-0400 Body height 156.2 cm Gabi More APRN.MATHS TUTOR Work Phone: [facility] 11-24-2023 08:19-0400 Body weight 62.6 kg Gabi More APRN.MATHS TUTOR Work Phone: [facility] 11-24-2023 08:19-0400 Diastolic blood pressure 80 mm[Hg] Gabi More APRN.MATHS TUTOR Work Phone: [facility] 11-24-2023 08:19-0400 Heart rate 71 /min Gabi More APRN.MATHS TUTOR Work Phone: [facility] 11-24-2023 08:19-0400 SaO2% (BldA) [Mass fraction] 97 % Gabi More APRN.MATHS TUTOR Work Phone: [facility] 11-24-2023 08:19-0400 Systolic blood pressure 176 mm[Hg] Gabi More APRN.MATHS TUTOR Work Phone: [facility] 11-06-2023 08:19-0400 Body temperature 98.6 [degF] Krislyn Aberegg PA Work Phone: [facility] 11-06-2023 08:19-0400 Body weight 63.1 kg Krislyn Aberegg PA Work Phone: [facility] 11-06-2023 08:19-0400 Diastolic blood pressure 76 mm[Hg] Krislyn Aberegg PA Work Phone: [facility] 11-06-2023 08:19-0400 Heart rate 94 /min Krislyn Aberegg PA Work Phone: [facility] 11-06-2023 08:19-0400 Respiratory rate 16 /min Krislyn Aberegg PA Work Phone: [facility] 11-06-2023 08:19-0400 SaO2% (BldA) [Mass fraction] 95 % Krislyn Aberegg PA Work Phone: [facility] 11-06-2023 08:19-0400 Systolic blood pressure 124 mm[Hg] Krislyn Aberegg PA Work Phone: [facility] 10-27-2023 13:01-0500 Body temperature 98.49 [degF] Sreekanth Cortez DO Work Phone: [facility] 10-27-2023 13:01-0500 Body weight 62.14 kg Sreekanth Cortez DO Work Phone: [facility] 10-27-2023 13:01-0500 Diastolic blood pressure 88 mm[Hg] Sreekanth Cortez DO Work Phone: [facility] 10-27-2023 13:01-0500 Heart rate 80 /min Sreekanth Cortez DO Work Phone: [facility] 10-27-2023 13:01-0500 Respiratory rate 20 /min Sreekanth Cortez DO Work Phone: [facility] 10-27-2023 13:01-0500 Systolic blood pressure 146 mm[Hg] Sreekanth Cortez DO Work Phone: [facility] 10-07-2023 07:46-0500 Body weight 62.32 kg Donita Estes PALM GATHERER.MATHS TUTOR Work Phone: [facility] 10-07-2023 07:46-0500 Diastolic blood pressure 64 mm[Hg] Donita Estes PALM GATHERER.MATHS TUTOR Work Phone: [facility] 10-07-2023 07:46-0500 Heart rate 76 /min Donita Estes PALM GATHERER.MATHS TUTOR Work Phone: [facility] 10-07-2023 07:46-0500 Respiratory rate 16 /min Donita Estes PALM GATHERER.MATHS TUTOR Work Phone: [facility] 10-07-2023 07:46-0500 SaO2% (BldA) [Mass fraction] 98 % Donita Estes PALM GATHERER.MATHS TUTOR Work Phone: [facility] 10-07-2023 07:46-0500 Systolic blood pressure 138 mm[Hg] Donita Estes PALM GATHERER.MATHS TUTOR Work Phone: [facility] 07-21-2023 07:13-0500 Body weight 62.87 kg Donita Estes PALM GATHERER.MATHS TUTOR Work Phone: [facility] 07-21-2023 07:13-0500 Diastolic blood pressure 60 mm[Hg] Donita Estes PALM GATHERER.MATHS TUTOR Work Phone: [facility] 07-21-2023 07:13-0500 Heart rate 80 /min Donita Estes PALM GATHERER.MATHS TUTOR Work Phone: [facility] 07-21-2023 07:13-0500 Respiratory rate 14 /min Donita Estes PALM GATHERER.MATHS TUTOR Work Phone: [facility] 07-21-2023 07:13-0500 SaO2% (BldA) [Mass fraction] 98 % Donita Estes PALM GATHERER.MATHS TUTOR Work Phone: [facility] 07-21-2023 07:13-0500 Systolic blood pressure 138 mm[Hg] Donita Estes PALM GATHERER.MATHS TUTOR Work Phone: [facility] 07-05-2023 14:01-0500 Body temperature 98.91 [degF] Sreekanth Cortez DO Work Phone: [facility] 07-05-2023 14:01-0500 Body weight 63.5 kg Sreekanth Cortez DO Work Phone: [facility] 07-05-2023 14:01-0500 Diastolic blood pressure 84 mm[Hg] Sreekanth Cortez DO Work Phone: [facility] 07-05-2023 14:01-0500 Heart rate 80 /min Sreeknath Cortez DO Work Phone: [facility] 07-05-2023 14:01-0500 Respiratory rate 16 /min Sreekanth Cortez DO Work Phone: [facility] 07-05-2023 14:01-0500 Systolic blood pressure 138 mm[Hg] Sreekanth Cortez DO Work Phone: [facility] 06-29-2023 15:17-0500 Heart rate 78 /min [facility] 06-29-2023 15:17-0500 Respiratory rate 18 /min [facility] 06-29-2023 15:17-0500 SaO2% (BldA) [Mass fraction] 98 % [facility] 06-29-2023 11:38-0500 Diastolic blood pressure 68 mm[Hg] [facility] 06-29-2023 11:38-0500 Systolic blood pressure 151 mm[Hg] [facility] 06-29-2023 10:47-0500 Body height 154.94 cm [facility] 06-29-2023 10:47-0500 Body mass index (BMI) [Ratio] 26.6 kg/m2 [facility] 06-29-2023 10:47-0500 Body temperature 96.5 [degF] [facility] 06-29-2023 10:47-0500 Body weight 63.95 kg [facility] 06-16-2023 08:27-0400 Body weight 63.14 kg Donita Estes PALM GATHERER.MATHS TUTOR Work Phone: [facility] 06-16-2023 08:27-0400 Diastolic blood pressure 60 mm[Hg] Donita Estes PALM GATHERER.MATHS TUTOR Work Phone: [facility] 06-16-2023 08:27-0400 Heart rate 68 /min Donita Estes PALM GATHERER.MATHS TUTOR Work Phone: [facility] 06-16-2023 08:27-0400 Respiratory rate 16 /min Donita Estes PALM GATHERER.MATHS TUTOR Work Phone: [facility] 06-16-2023 08:27-0400 Systolic blood pressure 142 mm[Hg] Donita Estes PALM GATHERER.MATHS TUTOR Work Phone: [facility] 05-17-2023 15:03-0400 Body weight 63.5 kg Donita Estes PALM GATHERER.MATHS TUTOR Work Phone: [facility] 05-17-2023 15:03-0400 Diastolic blood pressure 60 mm[Hg] Donita Estes PALM GATHERER.MATHS TUTOR Work Phone: [facility] 05-17-2023 15:03-0400 Heart rate 100 /min Donita Estes PALM GATHERER.MATHS TUTOR Work Phone: [facility] 05-17-2023 15:03-0400 Respiratory rate 16 /min Donita Estes PALM GATHERER.MATHS TUTOR Work Phone: [facility] 05-17-2023 15:03-0400 Systolic blood pressure 130 mm[Hg] Donita Estes PALM GATHERER.MATHS TUTOR Work Phone: [facility] 03-31-2023 17:35-0400 Body temperature 97.5 [degF] Sreekanth Cortez DO Work Phone: [facility] 03-31-2023 17:35-0400 Body weight 63.5 kg Sreekanth Cortez DO Work Phone: [facility] 03-31-2023 17:35-0400 Diastolic blood pressure 70 mm[Hg] Sreekanth Cortez DO Work Phone: [facility] 03-31-2023 17:35-0400 Heart rate 80 /min Sreekanth Cortez DO Work Phone: [facility] 03-31-2023 17:35-0400 Respiratory rate 16 /min Sreekanth Cortez DO Work Phone: [facility] 03-31-2023 17:35-0400 Systolic blood pressure 134 mm[Hg] Sreekanth Cortez DO Work Phone: [facility] 03-20-2023 19:13-0400 Body temperature 98 [degF] [facility] 03-20-2023 19:13-0400 Diastolic blood pressure 68 mm[Hg] [facility] 03-20-2023 19:13-0400 Heart rate 70 /min [facility] 03-20-2023 19:13-0400 Respiratory rate 14 /min [facility] 03-20-2023 19:13-0400 Systolic blood pressure 143 mm[Hg] [facility] 03-20-2023 17:10-0400 Body height 154.94 cm [facility] 03-20-2023 17:10-0400 Body mass index (BMI) [Ratio] 26.2 kg/m2 [facility] 03-20-2023 17:10-0400 Body weight 62.91 kg [facility] 03-20-2023 17:10-0400 SaO2% (BldA) [Mass fraction] 95 % [facility] 03-15-2023 07:45-0400 Body height 157 cm Sreekanth Cortez DO Work Phone: [facility] 03-15-2023 07:45-0400 Body temperature 97.11 [degF] Sreekanth Cortez DO Work Phone: [facility] 03-15-2023 07:45-0400 Body weight 63.05 kg Sreekanth Cortez DO Work Phone: [facility] 03-15-2023 07:45-0400 Diastolic blood pressure 80 mm[Hg] Sreekanth Cortez DO Work Phone: [facility] 03-15-2023 07:45-0400 Heart rate 60 /min Sreekanth Cortez DO Work Phone: [facility] 03-15-2023 07:45-0400 Respiratory rate 16 /min Sreekanth Cortez DO Work Phone: [facility] 03-15-2023 07:45-0400 Systolic blood pressure 138 mm[Hg] Sreekanth Cortez DO Work Phone: [facility] 03-10-2023 10:27-0400 Diastolic blood pressure 71 mm[Hg] Marilyn Gutierrez PA-C Work Phone: [facility] 03-10-2023 10:27-0400 Heart rate 66 /min Marilyn Gutierrez PA-C Work Phone: [facility] 03-10-2023 10:27-0400 Systolic blood pressure 133 mm[Hg] Marilyn Gutierrez PA-C Work Phone: [facility] 03-10-2023 09:56-0400 Body temperature 98.6 [degF] Marilyn Gutierrez PA-C Work Phone: [facility] 03-10-2023 09:56-0400 Body weight 62.6 kg Marilyn Gutierrez PA-C Work Phone: [facility] 03-10-2023 09:56-0400 Respiratory rate 16 /min Marilyn Gutierrez PA-C Work Phone: [facility] 03-10-2023 09:56-0400 SaO2% (BldA) [Mass fraction] 96 % Marilyn Gutierrez PA-C Work Phone: [facility] 12-25-2022 14:40-0400 Diastolic blood pressure 80 mm[Hg] Sreekanth Cortez DO Work Phone: [facility] 12-25-2022 14:40-0400 Systolic blood pressure 150 mm[Hg] Sreekanth Cortez DO Work Phone: [facility] 12-25-2022 13:45-0400 Body temperature 97 [degF] Sreekanth Cortez DO Work Phone: [facility] 12-25-2022 13:45-0400 Body weight 64.86 kg Sreekanth Cortez DO Work Phone: [facility] 12-25-2022 13:45-0400 Heart rate 72 /min Sreekanth Cortez DO Work Phone: [facility] 12-25-2022 13:45-0400 Respiratory rate 16 /min Sreekanth Cortez DO Work Phone: [facility] 08-31-2022 09:14-0500 Body temperature 98.49 [degF] Sreekanth Cortez DO Work Phone: [facility] 08-31-2022 09:14-0500 Body weight 65.32 kg Sreekanth Cortez DO Work Phone: [facility] 08-31-2022 09:14-0500 Diastolic blood pressure 94 mm[Hg] Sreekanth Cortez DO Work Phone: [facility] 08-31-2022 09:14-0500 Heart rate 76 /min Sreekanth Cortez DO Work Phone: [facility] 08-31-2022 09:14-0500 Respiratory rate 20 /min Sreekanth Cortez DO Work Phone: [facility] 08-31-2022 09:14-0500 Systolic blood pressure 138 mm[Hg] Sreekanth Cortez DO Work Phone: [facility] 07-08-2022 07:44-0500 Body weight 64.77 kg Sergei Renner APRN.MATHS TUTOR Work Phone: [facility] 07-08-2022 07:44-0500 Diastolic blood pressure 82 mm[Hg] Sergei Zurdo PALM GATHERER.MATHS TUTOR Work Phone: [facility] 07-08-2022 07:44-0500 Heart rate 70 /min Sergei Zurdo PALM GATHERER.MATHS TUTOR Work Phone: [facility] 07-08-2022 07:44-0500 Respiratory rate 16 /min Sergei Zurdo PALM GATHERER.MATHS TUTOR Work Phone: [facility] 07-08-2022 07:44-0500 SaO2% (BldA) [Mass fraction] 96 % Sergei Zurdo PALM GATHERER.MATHS TUTOR Work Phone: [facility] 07-08-2022 07:44-0500 Systolic blood pressure 130 mm[Hg] Esrgei Zurdo PALM GATHERER.MATHS TUTOR Work Phone: [facility] 04-06-2022 15:12-0400 Body temperature 98.2 [degF] Yann French MD Work Phone: [facility] 04-06-2022 15:12-0400 Body weight 66.59 kg Yann French MD Work Phone: [facility] 04-06-2022 15:12-0400 Diastolic blood pressure 84 mm[Hg] Yann French MD Work Phone: [facility] 04-06-2022 15:12-0400 Heart rate 85 /min Yann French MD Work Phone: [facility] 04-06-2022 15:12-0400 Respiratory rate 21 /min Yann French MD Work Phone: [facility] 04-06-2022 15:12-0400 SaO2% (BldA) [Mass fraction] 99 % Yann French MD Work Phone: [facility] 04-06-2022 15:12-0400 Systolic blood pressure 122 mm[Hg] Yann French MD Work Phone: [facility] 02-25-2022 11:26-0400 Diastolic blood pressure 60 mm[Hg] Donita Gonzales PALM GATHERER.MATHS TUTOR Work Phone: [facility] 02-25-2022 11:26-0400 Heart rate 100 /min Donita Zuraw[place] PALM GATHERER.MATHS TUTOR Work Phone: [facility] 02-25-2022 11:26-0400 Systolic blood pressure 136 mm[Hg] Donita [place] PALM GATHERER.MATHS TUTOR Work Phone: [facility] 02-25-2022 10:50-0400 Body height 153 cm Donita [place] PALM GATHERER.MATHS TUTOR Work Phone: [facility] 02-25-2022 10:50-0400 Body weight 64.45 kg Donita [place] PALM GATHERER.MATHS TUTOR Work Phone: [facility] 02-25-2022 10:50-0400 Respiratory rate 16 /min Donita [place] PALM GATHERER.MATHS TUTOR Work Phone: [facility] Encounters Encounter Date Encounter Type Care Provider Facility Start: 03-28-2025 End: 03-28-2025 ambulatory SREEKANTH L CORTEZ Facility:[facility] Start: 03-28-2025 End: 03-28-2025 ambulatory SREEKANTH L CORTEZ Facility:[facility] Start: 03-17-2025 End: 03-21-2025 Telephone encounter Sreekanth Sung Jimeneson DO Work Phone: [facility] [place] Comment on above: Patient Question (He art rate) Start: 2025 End: 2025 Office outpatient visit 25 minutes Margoth Chavez PALM GATHERER.MATHS TUTOR Work Phone: [facility] [place] Comment on above: Hypertension, essent ial (Primary Dx); Hyponatremia; Screening for depression; Encounter for screening examination for other mental health and behavioral disorders Start: 2025 End: 2025 ambulatory SREEKANTH L CORTEZ Facility:[facility] Start: 03-08-2025 End: 03-08-2025 Telephone encounter Sreekanth Jimeneson DO Work Phone: [facility] Comment on above: Transition Of Care Start: 03-08-2025 End: 03-08-2025 ambulatory MARGOTH CHAVEZ Facility:[facility] Start: 02-28-2025 End: 02-28-2025 Telephone encounter Sreekanth Cortez DO Work Phone: [facility] Comment on above: Transition Of Care Start: 02-26-2025 End: 02-26-2025 Office outpatient visit 25 minutes Margoth Averyo PALM GATHERER.MATHS TUTOR Work Phone: [facility] [place] Comment on above: Hyponatremia (Primar y Dx); Hypertension, essential Start: 02-26-2025 End: 02-26-2025 ambulatory [facility] Facility:[facility] Start: 02-24-2025 End: 02-25-2025 ambulatory SREEKANTH CORTEZ Facility:[facility] Start: 02-22-2025 End: 02-22-2025 Emergency department patient visit Dr. Sreekanth Cortez DO Work Phone: -Emergency Department Work Phone: Start: 02-19-2025 End: 02-19-2025 ambulatory [facility] Facility:[facility] Start: 02-19-2025 End: 02-19-2025 Office outpatient visit 25 minutes Margoth Chavez PALM GATHERER.MATHS TUTOR Work Phone: [facility] [place] Comment on above: Labile blood pressur e (Primary Dx); Hypertension, essential; Hyponatremia; Fatigue, unspecified type Start: 02-19-2025 End: 02-19-2025 ambulatory [facility] Facility:[facility] Start: 02-05-2025 End: 02-05-2025 Patient encounter procedure Sreekanth Cortez DO Work Phone: [facility] [place] Comment on above: Hypertension, essent ial (Primary Dx); Stage 3a chronic kidney disease (HCC); Hypothyroidism, unspecified type; Fatigue, unspecified type; Dyslipidemia; Hyponatremia Start: 02-05-2025 End: 02-05-2025 ambulatory SREEKANTH CORTEZ Facility:[facility] Start: 12-25-2024 End: 12-25-2024 Telephone encounter Marilyn Gutierrez PA-C Work Phone: [facility] [place] Comment on above: Patient Update; Appo intment Start: 12-25-2024 End: 12-25-2024 Patient encounter procedure Maribeth Griffiths APRN.MATHS TUTOR Work Phone: [facility] [place] Comment on above: Hypertension, essent ial (Primary Dx) Start: 12-25-2024 End: 12-25-2024 ambulatory SREEKANTH L CORTEZ Facility:[facility] Start: 11-21-2024 End: 11-21-2024 Follow-up encounter Sergei Renner APRN.CNP Work Phone: [facility] [place] Comment on above: Results Start: 11-21-2024 End: 11-28-2024 Telephone encounter Sreekanth L Cortez DO Work Phone: [facility] [place] Comment on above: Patient Update (BP r eadings) Start: 11-16-2024 End: 11-16-2024 ambulatory SREEKANTH L CORTEZ Facility:[facility] Start: 11-09-2024 End: 11-09-2024 Refill Sreekanth L Cortez DO Work Phone: [address] [place] [address] Comment on above: Refill Request Start: 10-11-2024 End: 10-11-2024 Refill Sreekanth L Cortez DO Work Phone: [facility] [place] Comment on above: Refill Request Start: 08-08-2024 End: 08-08-2024 Patient encounter procedure Sreekanth L Cortez DO Work Phone: [facility] [place] Comment on above: Hypothyroidism, unsp ecified type (Primary Dx); Hypertension, essential; Stage 3a chronic kidney disease (HCC); Other iron deficiency anemia; Dyslipidemia; Vitamin D deficiency; Fatigue, unspecified type; Essential hypertension Start: 08-08-2024 End: 08-08-2024 ambulatory SREEKANTH L CORTEZ Facility:[facility] Start: 07-12-2024 End: 07-13-2024 Telephone encounter Sergei Renner APRN.CNP Work Phone: [facility] [place] Comment on above: Results; Orders Start: 07-10-2024 End: 07-10-2024 ambulatory SERGEI QUIJANOMAN Facility:[facility] Start: 06-06-2024 End: 06-06-2024 Telephone encounter Sreekanth Cortez DO Work Phone: [facility] [place] Comment on above: Medication Problem Start: 05-02-2024 End: 05-02-2024 Telephone encounter Sergei Zurdo PRESLEY.MATHS TUTOR Work Phone: [facility] [place] Comment on above: Results; Orders Start: 04-28-2024 End: 07-19-2024 Telephone encounter Sergei Zurdo PRESLEY.MATHS TUTOR Work Phone: [facility] [place] Comment on above: contact outside [facility] Start: 04-28-2024 End: 04-28-2024 ambulatory SREEKANTH CORTEZ Facility:[facility] Start: 04-28-2024 End: 04-28-2024 ambulatory SREEKANTH CORTEZ Facility:[facility] Start: 04-28-2024 End: 04-28-2024 Patient encounter procedure Sergei Zurdoyasmin PRESLEY.MATHS TUTOR Work Phone: [facility] [place] Comment on above: Hypertension, essent ial (Primary Dx); Stage 3a chronic kidney disease (HCC); Hypothyroidism, unspecified type; Other iron deficiency anemia Start: 03-23-2024 End: 03-23-2024 Patient encounter procedure Delilah Cabrera DO Work Phone: Cardiology Comment on above: SVT (supraventricula r tachycardia) (HCC) (Primary Dx); Palpitations; Essential hypertension; Hyperlipidemia, mixed; Hypertension, essential; Palpitation Start: 02-14-2024 End: 02-14-2024 Patient encounter procedure Sreekanth Cortez DO Work Phone: [facility] [place] Comment on above: Essential hypertensi on (Primary Dx); Stage 3a chronic kidney disease (HCC); Hypothyroidism, unspecified type; Other iron deficiency anemia; Vitamin D deficiency Start: 02-09-2024 Telephone encounter Sreekanth shrestha DO Work Phone: [facility] [place] Comment on above: checking to see if l abs are needed Start: 11-24-2023 End: 11-24-2023 Office outpatient visit 15 minutes Gabi More APRN.MATHS TUTOR Work Phone: Cardiology Comment on above: Hyponatremia (Primar y Dx); Hypertension, essential; Palpitation; Hypothyroidism, unspecified type; Iatrogenic hyperthyroidism Start: 11-10-2023 Refill Sreekanth roper DO Work Phone: [facility] Comment on above: Refill Request Start: 11-07-2023 Telephone encounter Justice SIMPSON Work Phone: [facility] Comment on above: Results Start: 11-06-2023 End: 11-06-2023 Subsequent hospital visit by physician [facility] [place] Work Phone: Radiology Comment on above: Acute cough [R05.1] Start: 11-06-2023 End: 11-06-2023 Patient encounter procedure Justice SIMPSON Work Phone: [facility] Comment on above: Acute cough (Primary Dx); URI, acute Start: 10-27-2023 End: 10-27-2023 Patient encounter procedure Sreekanth Cortez DO Work Phone: [facility] Comment on above: Essential hypertensi on (Primary Dx); Stage 3a chronic kidney disease (HCC); Hyponatremia; Hypothyroidism, unspecified type Start: 10-14-2023 E-mail encounter fro m caregiver Gabi More APRN.MATHS TUTOR Work Phone: [facility] Start: 10-14-2023 Patient encounter procedure Gabi More APRN.MATHS TUTOR Work Phone: Cardiology Comment on above: Appointment Start: 10-11-2023 Refill Donita Estes APRN.MATHS TUTOR Work Phone: [facility] Comment on above: Refill Request Start: 10-11-2023 Refill Sreekanth roper DO Work Phone: [facility] Comment on above: Refill Request Start: 10-08-2023 Telephone encounter Donita roper PALM GATHERER.MATHS TUTOR Work Phone: [facility] Comment on above: Results Start: 10-07-2023 End: 10-07-2023 Patient encounter procedure Donita Estes PALM GATHERER.MATHS TUTOR Work Phone: [facility] Comment on above: Essential hypertensi on (Primary Dx); Hyponatremia; Hypothyroidism, unspecified type; Other iron deficiency anemia; Dyslipidemia Start: 09-11-2023 Telephone encounter Sreekanth shrestha DO Work Phone: [facility] Start: 08-05-2023 Telephone encounter Donita roper PALM GATHERER.MATHS TUTOR Work Phone: [facility] Comment on above: Results Start: 07-28-2023 Telephone encounter Donita roper PALM GATHERER.MATHS TUTOR Work Phone: [facility] Comment on above: Results Start: 07-26-2023 Telephone encounter Sreekanth shrestha DO Work Phone: [facility] Comment on above: Patient Question; La b Orders Start: 07-23-2023 Telephone encounter Sreekanth shrestha DO Work Phone: [facility] Comment on above: Results; concerns Start: 07-21-2023 End: 07-21-2023 Patient encounter procedure Donita Estes PALM GATHERER.MATHS TUTOR Work Phone: [facility] Comment on above: Dizziness (Primary D x); Hypothyroidism, unspecified type; Essential hypertension; CHECO (generalized anxiety disorder); Hyponatremia Start: 07-08-2023 Telephone encounter Sreekanth shrestha DO Work Phone: [facility] Comment on above: Patient Question Start: 07-05-2023 End: 07-05-2023 Patient encounter procedure Sreekanth Sung Cortez DO Work Phone: [facility] Comment on above: Hyponatremia (Primar y Dx); Anemia, unspecified type; Hypothyroidism, unspecified type; Dizziness; Essential hypertension; Fatigue, unspecified type; Shakiness Start: 06-29-2023 End: 06-29-2023 Emergency department patient visit [facility] Work Phone: Start: 06-29-2023 End: 06-29-2023 Patient encounter procedure Yuan Carneylori PALM GATHERER.MATHS TUTOR Work Phone: [facility] Comment on above: Procedure not enmanuel d out (Primary Dx) Start: 06-22-2023 Telephone encounter Sreekanth Sung Mckeon henrietta DO Work Phone: [facility] Comment on above: Clearance Form from [facility] Start: 06-17-2023 Telephone encounter Donitabilly roper PALM GATHERER.MATHS TUTOR Work Phone: [facility] Comment on above: Results Start: 06-16-2023 End: 06-16-2023 Patient encounter procedure Donita Estes PALM GATHERER.MATHS TUTOR Work Phone: [facility] Comment on above: Low sodium levels (P rimary Dx); Hypothyroidism, unspecified type; Other iron deficiency anemia; Dizziness Start: 06-09-2023 Telephone encounter Sreekanth Almaraz Mike kallitorey DO Work Phone: [facility] Start: 05-17-2023 End: 05-17-2023 Patient encounter procedure Donita Estes PALM GATHERER.MATHS TUTOR Work Phone: [facility] Comment on above: Dizziness (Primary D x); Hypothyroidism, unspecified type; Essential hypertension Start: 03-31-2023 End: 03-31-2023 Patient encounter procedure Sreekanth Sung Jimeneson DO Work Phone: [facility] Comment on above: Essential hypertensi on (Primary Dx); Dysuria; Hypothyroidism, unspecified type Start: 03-20-2023 End: 03-20-2023 Emergency department patient visit [facility] Work Phone: Start: 03-15-2023 Refill Donitalexis Ibarrason PALM GATHERER.MATHS TUTOR Work Phone: [facility] Comment on above: Refill Request Start: 03-15-2023 End: 03-15-2023 Patient encounter procedure Sreekanth Sung Cortez DO Work Phone: [facility] Comment on above: Essential hypertensi on (Primary Dx); Hypothyroidism, unspecified type; Bilateral leg edema; Lumbar radiculopathy; Other iron deficiency anemia; Dyslipidemia Start: 03-11-2023 Refill Donita Estes PALM GATHERER.MATHS TUTOR Work Phone: [facility] Comment on above: Refill Request Start: 03-10-2023 ambulatory Sreekanth roper DO Work Phone: [facility] [place] Comment on above: Dizziness; Hypertens ion Start: 03-10-2023 End: 03-10-2023 Patient encounter procedure Marilyn Gutierrez PA-C Work Phone: [facility] Comment on above: Essential hypertensi on (Primary Dx) Start: 03-09-2023 Refill Donita Estes PALM GATHERER.MATHS TUTOR Work Phone: [facility] Comment on above: Refill Request Start: 12-31-2022 Telephone encounter Sreekanth mahantorey DO Work Phone: [facility] Comment on above: Results Start: 12-25-2022 End: 12-25-2022 Subsequent hospital visit by physician [facility] [place] Work Phone: Radiology Comment on above: Lumbar radiculopathy [M54.16] Start: 12-25-2022 End: 12-25-2022 Patient encounter procedure Sreekanth Cortez DO Work Phone: [facility] Comment on above: Lumbar radiculopathy (Primary Dx); Chronic midline low back pain with bilateral sciatica Start: 09-12-2022 Refill Donita Estes PALM GATHERER.MATHS TUTOR Work Phone: [facility] [place] Comment on above: Refill Request Start: 09-10-2022 Refill Donita Estes PALM GATHERER.MATHS TUTOR Work Phone: [facility] Comment on above: Refill Request Start: 08-31-2022 End: 08-31-2022 Patient encounter procedure Sreekanth Cortez DO Work Phone: [facility] Comment on above: Essential hypertensi on (Primary Dx); Gastroesophageal reflux disease, unspecified whether esophagitis present; Bilateral leg edema; Hypothyroidism, unspecified type; Vitamin D deficiency; Stage 3a chronic kidney disease (HCC); Dyslipidemia; Other iron deficiency anemia Start: 08-10-2022 Telephone encounter Sergei Partida PALM GATHERER.MATHS TUTOR Work Phone: [facility] [place] Comment on above: Covid19 Concern Start: 08-10-2022 End: 08-10-2022 ambulatory Sergei Renner PALM GATHERER.MATHS TUTOR Work Phone: [facility] [place] Comment on above: COVID (Primary Dx) Start: 08-10-2022 End: 08-10-2022 Telemedicine consultation with patient Sergei Renner PALM GATHERER.MATHS TUTOR Work Phone: [facility] Start: 07-08-2022 End: 07-08-2022 Patient encounter procedure Sergei Renner PALM GATHERER.MATHS TUTOR Work Phone: [facility] [place] Comment on above: Essential hypertensi on (Primary Dx); Gastroesophageal reflux disease, unspecified whether esophagitis present Start: 04-06-2022 End: 04-06-2022 Patient encounter procedure Yann French MD Work Phone: [facility] Comment on above: Acute left flank george n (Primary Dx); Urinary frequency Start: 02-26-2022 Telephone encounter Donita noel PALM GATHERER.MATHS TUTOR Work Phone: [facility] Comment on above: Results Start: 02-25-2022 End: 02-25-2022 Patient encounter procedure Donita Gonzales PALM GATHERER.MATHS TUTOR Work Phone: [facility] [place] Comment on above: Essential hypertensi on (Primary Dx); Bilateral leg edema; Hypothyroidism, unspecified type; Vitamin D deficiency; Stage 3a chronic kidney disease (HCC); Dyslipidemia; Other iron deficiency anemia; Screening for diabetes mellitus Start: 09-01-2018 Patient encounter procedure JOE RIOS [facility] Start: 02-24-2017 Ambulatory Mercedesmarybel [facility] Procedures Date Procedure Procedure Detail Performing Clinician Start: 2025 Adult depression scr eening assessment Margoth Chavez PALM GATHERER.MATHS TUTOR Work Phone: Start: 02-22-2025 CT of head without contrast Dr. Sreekanth Cortez DO Work Phone: Start: 02-22-2025 X-ray of chest, PA a nd lateral views Dr. Sreekanth Cortez DO Work Phone: Start: 02-22-[address] Sreekanth Cortez DO Work Phone: Start: 02-14-2024 Adult depression scr eening assessment Dleilah Ungeryvonne DO Work Phone: Start: 11-24-2023 Ecg routine ecg w/le ast 12 lds i&r only [facility] Provider Start: 11-06-2023 Radiologic exam ches t 2 views Justice SIMPSON Work Phone: Start: 06-29-2023 CT of head without contrast Start: 05-17-2023 Urnls dip stick/tabl et rgnt auto w/o microscopy Donita Estes PALM GATHERER.MATHS TUTOR Work Phone: Start: 03-31-2023 Urnls dip stick/tabl et rgnt auto w/o microscopy Sreekanth Cortez DO Work Phone: Start: 03-20-2023 Urine culture Start: 12-25-2022 Radex spine lumbosac ral 2/3 views Sreekanth Cortez DO Work Phone: Start: 04-06-2022 Urnls dip stick/tabl et rgnt auto w/o microscopy Yuan Syed PALM GATHERER.MATHS TUTOR Work Phone: Start: 02-25-2022 Adult depression scr eening assessment Donita Gonzales PALM GATHERER.MATHS TUTOR Work Phone: Plan of Treatment Date Care Activity Detail Author Start: 03-08-2028 Diabetes Screening Diabetes Screening [facility] Start: 02-26-2028 Diabetes Screening Diabetes Screening [facility] Start: 02-20-2028 Diabetes Screening Diabetes Screening [facility] Start: 11-17-2027 Diabetes Screening Diabetes Screening [facility] Start: 04-28-2027 Diabetes Screening Diabetes Screening [facility] Start: 02-09-2027 Diabetes Screening Diabetes Screening [facility] Start: 11-22-2026 Diabetes Screening Diabetes Screening [facility] Start: 10-07-2026 Diabetes Screening Diabetes Screening [facility] Start: 09-08-2026 Diabetes Screening Diabetes Screening [facility] Start: 08-04-2026 Diabetes Screening Diabetes Screening [facility] Start: 07-21-2026 Diabetes Screening Diabetes Screening [facility] Start: 07-02-2026 Diabetes Screening Diabetes Screening [facility] Start: 06-16-2026 Diabetes Screening Diabetes Screening [facility] Start: 05-20-2026 Diabetes Screening Diabetes Screening [facility] Start: 2026 Anxiety Screening Anxiety Screening [facility] Start: 2026 Depression Screening Depression Screening [facility] Start: 2026 RSV Vaccine (1 - 1-dose 75+ series) RSV Vaccine (1 - 1-dose 75+ series) [facility] Comment on above: Postponed from 2017 (Declined at t his time) Start: 2026 Urine microalbumin profile DTaP,Tdap,Td Vaccine (1 - Tdap) [facility] Comment on above: Postponed from 1961 (Declined at t his time) Start: 03-10-2026 DIABETES SCREEN DIABETES SCREEN [facility] Start: 03-10-2026 Diabetes Screening Diabetes Screening [facility] Start: 02-26-2026 Covid-19 Vaccine ( season) Covid-19 Vaccine ( season) [facility] Comment on above: Postponed from 04/23/2024 (Declined at t his time) Start: 11-18-2025 DIABETES SCREEN DIABETES SCREEN [facility] Start: 05-14-2025 End: 05-14-2025 Patient encounter procedure 05/14/2025 2:20 PM EDT Office Visit Family [facility] [address] [place] [id number] Sreekanth Cortez DO [address] [place] [place] [id number] 3 month follow up Family [facility] Comment on above: 3 month follow up Start: 05-08-2025 End: 08-07-2025 CBC panel - Blood by Automated count COMPLETE BLOOD COUNT Lab Routine Hypertension, essential Stage 3a chronic kidney disease (HCC) Expected: 05/08/2025, Expires: 08/07/2025 [facility] Comment on above: Expected: 05/08/2025, Expires: Start: 05-08-2025 End: 08-07-2025 Comprehensive metabolic 2000 panel - Serum or Plasma COMPREHENSIVE METABOLIC PANEL Lab Routine Hyponatremia Expected: 05/08/2025, Expires: 08/07/2025 [facility] Work Phone: Comment on above: Expected: 05/08/2025, Expires: Start: 05-08-2025 End: 08-07-2025 Thyrotropin [Units/volume] in Serum or Plasma THYROID STIMULATING HORMONE Lab Routine Hypothyroidism, unspecified type Expected: 05/08/2025, Expires: 08/07/2025 [facility] Comment on above: Expected: 05/08/2025, Expires: Start: 05-08-2025 End: 08-07-2025 Thyroxine (T4) free [Mass/volume] in Serum or Plasma T4 FREE/FREE THYROXINE Lab Routine Hypothyroidism, unspecified type Expected: 05/08/2025, Expires: 08/07/2025 [facility] Comment on above: Expected: 05/08/2025, Expires: Start: 04-23-2025 Influenza [facility] Start: 04-12-2025 End: 07-12-2025 Basic metabolic 2000 panel - Serum or Plasma BASIC METABOLIC PANEL Lab Routine Hyponatremia Expected: 04/12/2025, Expires: 07/12/2025 [facility] Work Phone: Comment on above: Expected: 04/12/2025, Expires: Start: 2025 End: 2025 Patient encounter procedure 2025 11:20 AM EDT Office Visit [facility] [place] [address] [place] [address] Margoth Chavez APRN.[facility] [address] [place] [address] 2 week f/up [facility] Comment on above: 2 week f/up Start: 03-08-2025 End: 06-07-2025 Basic metabolic 2000 panel - Serum or Plasma BASIC METABOLIC PANEL Lab Routine Hypertension, essential Hyponatremia Expected: 03/08/2025, Expires: 06/07/2025 [facility] Work Phone: Comment on above: Expected: 03/08/2025, Expires: Start: 02-26-2025 End: 02-26-2025 Patient encounter procedure 02/26/2025 9:00 AM EDT Office Visit [facility] [address] [place], [place] [id number] Margoth Chavez APRN.MATHS TUTOR [address] [place] [address] 2 week f/up [facility] Comment on above: 2 week f/up Start: 02-25-2025 DIABETES SCREEN DIABETES SCREEN [facility] Start: 02-22-2025 [facility] Start: 02-22-2025 [facility] Start: 02-13-2025 Anxiety Screening Anxiety Screening [facility] Start: 02-13-2025 Depression Screening Depression Screening [facility] Start: 02-05-2025 End: 02-05-2025 Patient encounter procedure 02/05/2025 9:00 AM EDT Office Visit [facility] [address] [place], [place] [id number] Sreekanth Cortez, DO [address] [place] [address] 6 month follow up [facility] Comment on above: 6 month follow up Start: 08-24-2024 End: 11-23-2024 Thyrotropin [Units/volume] in Serum or Plasma THYROID STIMULATING HORMONE Lab Routine Hypothyroidism, unspecified type Expected: 08/24/2024, Expires: 11/23/2024 [facility] Work Phone: Comment on above: Expected: 08/24/2024, Expires: Start: 08-24-2024 End: 11-23-2024 Thyroxine (T4) free [Mass/volume] in Serum or Plasma T4 FREE/FREE THYROXINE Lab Routine Hypothyroidism, unspecified type Expected: 08/24/2024, Expires: 11/23/2024 [facility] Comment on above: Expected: 08/24/2024, Expires: Start: 08-23-2024 Advance Directive Discussion Advance Directive Discussion [facility] Start: 08-23-2024 Medicare Advantage Annual Wellness Visit Medicare Advantage Annual Wellness Visit [facility] Start: 08-20-2024 DIABETES SCREEN DIABETES SCREEN [facility] Start: 08-20-2024 RSV Vaccine (1 - 1-dose 60+ series) RSV Vaccine (1 - 1-dose 60+ series) [facility] Comment on above: Postponed from 2002 (Declined at t his time) Start: 08-20-2024 RSV Vaccine (1 - 1-dose 75+ series) RSV Vaccine (1 - 1-dose 75+ series) [facility] Comment on above: Postponed from 2017 (Declined at t his time) Start: 08-08-2024 End: 08-08-2024 Patient encounter procedure 08/08/2024 9:00 AM EST Office Visit Family Veronica Leblanc [address] [place] [address] Sreekanth Cortez DO [address] [place] [address] 6 month follow up Family [facility] Comment on above: 6 month follow up Start: 07-28-2024 End: 10-27-2024 CBC panel - Blood by Automated count COMPLETE BLOOD COUNT Lab Routine Hypertension, essential Hypothyroidism, unspecified type Other iron deficiency anemia Expected: 07/28/2024, Expires: 10/27/2024 [facility] Comment on above: Expected: 07/28/2024, Expires: Start: 06-13-2024 End: 09-12-2024 Thyrotropin [Units/volume] in Serum or Plasma THYROID STIMULATING HORMONE Lab Routine Hypothyroidism, unspecified type Expected: 06/13/2024, Expires: 09/12/2024 [facility] Work Phone: Comment on above: Expected: 06/13/2024, Expires: 5 Start: 06-13-2024 End: 09-12-2024 Thyroxine (T4) free [Mass/volume] in Serum or Plasma T4 FREE/FREE THYROXINE Lab Routine Hypothyroidism, unspecified type Expected: 06/13/2024 (Approximate), Expires: 09/12/2024 [facility] Comment on above: Expected: 06/13/2024 (Approximate), Expi res: 09/12/2024 Start: 05-17-2024 Covid-19 Vaccine ( season) Covid-19 Vaccine () [facility] Comment on above: Postponed from 04/23/2023 (Declined at t his time) Start: 05-17-2024 Covid-19 Vaccine (4 - Moderna series) Covid-19 Vaccine (4 - Moderna series) [facility] Comment on above: Postponed from 09/30/2021 (Declined at t his time) Start: 05-17-2024 Urine microalbumin profile DTaP,Tdap,Td Vaccine (1 - Tdap) [facility] Comment on above: Postponed from 1961 (Declined at t his time) Start: 04-28-2024 End: 07-28-2024 Comprehensive metabolic 2000 panel - Serum or Plasma [facility] Comment on above: Expected: 04/28/2024, Expires: 4 Start: 04-28-2024 End: 07-28-2024 Ferritin [Mass/volume] in Serum or Plasma [facility] Comment on above: Expected: 04/28/2024, Expires: 4 Start: 04-28-2024 End: 07-28-2024 Iron and Iron binding capacity panel - Serum or Plasma [facility] Comment on above: Expected: 04/28/2024, Expires: 4 Start: 04-28-2024 End: 07-28-2024 Thyrotropin [Units/volume] in Serum or Plasma [facility] Work Phone: Comment on above: Expected: 04/28/2024, Expires: Start: 04-28-2024 End: 07-28-2024 Thyroxine (T4) free [Mass/volume] in Serum or Plasma [facility] Comment on above: Expected: 04/28/2024, Expires: Start: 04-23-2024 Covid-19 Vaccine () Covid-19 Vaccine () [facility] Start: 04-23-2024 Covid-19 Vaccine () Covid-19 Vaccine () [facility] Start: 04-23-2024 Influenza vaccination Influenza Vaccine (#1) [facility] Start: 03-23-2024 End: 03-23-2024 Patient encounter procedure 03/23/2024 8:20 AM EDT Office Visit Cardiology [address] [place] [address] [phone] Delilah Cabrera DO [address] [place] [address] [phone] 6 month follow up Cardiology Comment on above: 6 month follow up Start: 03-10-2024 ANNUAL PCP TEAM CHRONIC DISEASE VISIT ANNUAL PCP TEAM CHRONIC DISEASE VISIT [facility] Start: 03-10-2024 SERUM CREATININE SERUM CREATININE [facility] Start: 02-20-2024 Influenza vaccination Influenza Vaccine (#1) [facility] Comment on above: Postponed from 04/23/2023 (Declined at t his time) Start: 02-14-2024 End: 02-14-2024 Patient encounter procedure 02/14/2024 9:40 AM EDT Office Visit [facility] [place] [address] [place], [place] [id number] Sreekanth Cortez DO [address] [place], [place] [id number] 3 month follow up [facility] Comment on above: 3 month follow up Start: 02-09-2024 End: 05-10-2024 25-hydroxyvitamin D3 [Mass/volume] in Serum or Plasma VITAMIN D 25 HYDROXY Lab Routine Vitamin D deficiency Expected: 02/09/2024, Expires: 05/10/2024 [facility] Comment on above: Expected: 02/09/2024, Expires: Start: 02-09-2024 End: 05-10-2024 CBC W Auto Differential panel - Blood COMPLETE BLOOD COUNT AND DIFFERENTIAL Lab Routine Other iron deficiency anemia Expected: 02/09/2024, Expires: 05/10/2024 [facility] Comment on above: Expected: 02/09/2024, Expires: 4 Start: 02-09-2024 End: 05-10-2024 Cobalamin (Vitamin B12) [Mass/volume] in Serum or Plasma VITAMIN B12 Lab Routine Stage 3a chronic kidney disease (HCC) Expected: 02/09/2024, Expires: 05/10/2024 [facility] Comment on above: Expected: 02/09/2024, Expires: Start: 02-09-2024 End: 05-10-2024 Comprehensive metabolic 2000 panel - Serum or Plasma COMPREHENSIVE METABOLIC PANEL Lab Routine Stage 3a chronic kidney disease (HCC) Expected: 02/09/2024, Expires: 05/10/2024 [facility] Comment on above: Expected: 02/09/2024, Expires: Start: 02-09-2024 End: 05-10-2024 Thyrotropin [Units/volume] in Serum or Plasma THYROID STIMULATING HORMONE Lab Routine Hypothyroidism, unspecified type Expected: 02/09/2024, Expires: 05/10/2024 [facility] Work Phone: Comment on above: Expected: 02/09/2024, Expires: 4 Start: 02-09-2024 End: 05-10-2024 Thyroxine (T4) free [Mass/volume] in Serum or Plasma T4 FREE/FREE THYROXINE Lab Routine Hypothyroidism, unspecified type Expected: 02/09/2024, Expires: 05/10/2024 [facility] Comment on above: Expected: 02/09/2024, Expires: 4 Start: 12-26-2023 ANNUAL PCP TEAM CHRONIC DISEASE VISIT ANNUAL PCP TEAM CHRONIC DISEASE VISIT [facility] Start: 11-19-2023 SERUM CREATININE SERUM CREATININE [facility] Start: 10-07-2023 End: 01-06-2024 CBC W Auto Differential panel - Blood [facility] Work Phone: Comment on above: Expected: 10/07/2023, Expires: Start: 10-07-2023 End: 01-06-2024 Comprehensive metabolic 2000 panel - Serum or Plasma [facility] Work Phone: Comment on above: Expected: 10/07/2023, Expires: 4 Start: 10-07-2023 End: 01-06-2024 Ferritin [Mass/volume] in Serum or Plasma [facility] Work Phone: Comment on above: Expected: 10/07/2023, Expires: Start: 10-07-2023 End: 01-06-2024 Iron and Iron binding capacity panel - Serum or Plasma [facility] Work Phone: Comment on above: Expected: 10/07/2023, Expires: 4 Start: 10-07-2023 End: 01-06-2024 Lipid 1996 panel - Serum or Plasma [facility] Work Phone: Comment on above: Expected: 10/07/2023, Expires: 4 Start: 10-07-2023 End: 01-06-2024 Thyrotropin [Units/volume] in Serum or Plasma [facility] Work Phone: Comment on above: Expected: 10/07/2023, Expires: 4 Start: 10-07-2023 End: 01-06-2024 Thyroxine (T4) free [Mass/volume] in Serum or Plasma [facility] Work Phone: Comment on above: Expected: 10/07/2023, Expires: 4 Start: 10-07-2023 End: 01-06-2024 Triiodothyronine (T3) [Mass/volume] in Serum or Plasma [facility] Work Phone: Comment on above: Expected: 10/07/2023, Expires: 4 Start: 08-31-2023 ANNUAL PCP TEAM CHRONIC DISEASE VISIT ANNUAL PCP TEAM CHRONIC DISEASE VISIT [facility] Start: 08-23-2023 Advance Directive Discussion Advance Directive Discussion [facility] Start: 08-23-2023 Behavioral Health Screening Behavioral Health Screening [facility] Start: 08-23-2023 Depression Assessment Depression Assessment [facility] Start: 08-12-2023 End: 11-11-2023 Comprehensive metabolic 2000 panel - Serum or Plasma COMP METABOLIC PANEL Lab Routine Hyponatremia Expected: 08/12/2023, Expires: 11/11/2023 [facility] Work Phone: Comment on above: Expected: 08/12/2023, Expires: Start: 08-10-2023 ANNUAL PCP TEAM CHRONIC DISEASE VISIT ANNUAL PCP TEAM CHRONIC DISEASE VISIT [facility] Start: 08-04-2023 End: 11-03-2023 CBC panel - Blood by Automated count CBC Lab Routine Anemia, unspecified type Expected: 08/04/2023, Expires: 11/03/2023 [facility] Work Phone: Comment on above: Expected: 08/04/2023, Expires: 4 Start: 08-04-2023 End: 11-03-2023 CBC W Auto Differential panel - Blood CBC + DIFF Lab Routine Leukocytosis, unspecified type Expected: 08/04/2023, Expires: 11/03/2023 [facility] Work Phone: Comment on above: Expected: 08/04/2023, Expires: 4 Start: 08-04-2023 End: 11-03-2023 Comprehensive metabolic 2000 panel - Serum or Plasma COMP METABOLIC PANEL Lab Routine Anemia, unspecified type Hyponatremia Expected: 08/04/2023, Expires: 11/03/2023 [facility] Work Phone: Comment on above: Expected: 08/04/2023, Expires: 4 Start: 08-04-2023 End: 11-03-2023 Ferritin [Mass/volume] in Serum or Plasma FERRITIN BLD Lab Routine Anemia, unspecified type Expected: 08/04/2023, Expires: 11/03/2023 [facility] Work Phone: Comment on above: Expected: 08/04/2023, Expires: Start: 08-04-2023 End: 11-03-2023 Iron and Iron binding capacity panel - Serum or Plasma IRON + TIBC Lab Routine Anemia, unspecified type Expected: 08/04/2023, Expires: 11/03/2023 [facility] Work Phone: Comment on above: Expected: 08/04/2023, Expires: Start: 07-26-2023 End: 10-25-2023 Cobalamin (Vitamin B12) [Mass/volume] in Serum or Plasma VITAMIN B12 BLOOD Lab Routine Dizziness Expected: 07/26/2023, Expires: 10/25/2023 [facility] Work Phone: Comment on above: Expected: 07/26/2023, Expires: Start: 07-26-2023 End: 10-25-2023 Magnesium [Mass/volume] in Serum or Plasma MAGNESIUM BLD Lab Routine Dizziness Expected: 07/26/2023, Expires: 10/25/2023 [facility] Work Phone: Comment on above: Expected: 07/26/2023, Expires: Start: 07-23-2023 End: 10-22-2023 Urinalysis complete panel - Urine URINALYSIS WITH MICROSCOPIC, REFLEX CULTURE Lab Routine Leukocytosis, unspecified type Expected: 07/23/2023, Expires: 10/22/2023 [facility] Work Phone: Comment on above: Expected: 07/23/2023, Expires: Start: 07-21-2023 End: 10-20-2023 Lipid 1996 panel - Serum or Plasma [facility] Work Phone: Comment on above: Expected: 07/21/2023, Expires: Start: 07-21-2023 End: 10-20-2023 Thyrotropin [Units/volume] in Serum or Plasma [facility] Work Phone: Comment on above: Expected: 07/21/2023, Expires: Start: 07-21-2023 End: 10-20-2023 Thyroxine (T4) free [Mass/volume] in Serum or Plasma [facility] Work Phone: Comment on above: Expected: 07/21/2023, Expires: Start: 07-21-2023 End: 10-20-2023 Triiodothyronine (T3) [Mass/volume] in Serum or Plasma [facility] Work Phone: Comment on above: Expected: 07/21/2023, Expires: Start: 07-17-2023 End: 10-16-2023 Thyrotropin [Units/volume] in Serum or Plasma TSH BLD Lab Routine Hypothyroidism, unspecified type Expected: 07/17/2023, Expires: 10/16/2023 [facility] Work Phone: Comment on above: Expected: 07/17/2023, Expires: Start: 07-17-2023 End: 10-16-2023 Thyroxine (T4) free [Mass/volume] in Serum or Plasma T4 FREE/FREE THYROX Lab Routine Hypothyroidism, unspecified type Expected: 07/17/2023, Expires: 10/16/2023 [facility] Work Phone: Comment on above: Expected: 07/17/2023, Expires: 4 Start: 07-17-2023 End: 10-16-2023 Triiodothyronine (T3) [Mass/volume] in Serum or Plasma T3 BLD Lab Routine Hypothyroidism, unspecified type Expected: 07/17/2023, Expires: 10/16/2023 [facility] Work Phone: Comment on above: Expected: 07/17/2023, Expires: 4 Start: 07-08-2023 ANNUAL PCP TEAM CHRONIC DISEASE VISIT ANNUAL PCP TEAM CHRONIC DISEASE VISIT [facility] Start: 06-29-2023 [facility] Start: 06-29-2023 Ambulatory ECG [facility] Start: 05-17-2023 End: 07-17-2023 CBC W Auto Differential panel - Blood CBC + DIFF Lab Routine Dizziness Essential hypertension Expected: 05/17/2023, Expires: 07/17/2023 [facility] Work Phone: Comment on above: Expected: 05/17/2023, Expires: 3 Start: 05-17-2023 End: 07-17-2023 Comprehensive metabolic 2000 panel - Serum or Plasma COMP METABOLIC PANEL Lab Routine Dizziness Essential hypertension Expected: 05/17/2023, Expires: 07/17/2023 [facility] Work Phone: Comment on above: Expected: 05/17/2023, Expires: 3 Start: 05-17-2023 End: 07-17-2023 Insulin [Units/volume] in Serum or Plasma INSULIN ASSAY BLOOD Lab Routine Dizziness Expected: 05/17/2023, Expires: 07/17/2023 [facility] Work Phone: Comment on above: Expected: 05/17/2023, Expires: 3 Start: 05-17-2023 End: 07-17-2023 Thyrotropin [Units/volume] in Serum or Plasma TSH BLD Lab Routine Hypothyroidism, unspecified type Dizziness Expected: 05/17/2023, Expires: 07/17/2023 [facility] Work Phone: Comment on above: Expected: 05/17/2023, Expires: 3 Start: 05-17-2023 End: 07-17-2023 Thyroxine (T4) free [Mass/volume] in Serum or Plasma T4 FREE/FREE THYROX Lab Routine Hypothyroidism, unspecified type Dizziness Expected: 05/17/2023, Expires: 07/17/2023 [facility] Work Phone: Comment on above: Expected: 05/17/2023, Expires: 3 Start: 05-17-2023 End: 07-17-2023 Triiodothyronine (T3) [Mass/volume] in Serum or Plasma T3 BLD Lab Routine Hypothyroidism, unspecified type Dizziness Expected: 05/17/2023, Expires: 07/17/2023 [facility] Work Phone: Comment on above: Expected: 05/17/2023, Expires: 3 Start: 04-23-2023 Influenza vaccination INFLUENZA (#1) [facility] Start: 04-15-2023 End: 06-15-2023 Thyrotropin [Units/volume] in Serum or Plasma TSH BLD Lab Routine Hypothyroidism, unspecified type Expected: 04/15/2023, Expires: 06/15/2023 [facility] Work Phone: Comment on above: Expected: 04/15/2023, Expires: 3 Start: 04-15-2023 End: 06-15-2023 Thyroxine (T4) free [Mass/volume] in Serum or Plasma T4 FREE/FREE THYROX Lab Routine Hypothyroidism, unspecified type Expected: 04/15/2023, Expires: 06/15/2023 [facility] Work Phone: Comment on above: Expected: 04/15/2023, Expires: 3 Start: 04-15-2023 End: 06-15-2023 Triiodothyronine (T3) Free [Mass/volume] in Serum or Plasma T3 FREE BLD Lab Routine Hypothyroidism, unspecified type Expected: 04/15/2023, Expires: 06/15/2023 [facility] Work Phone: Comment on above: Expected: 04/15/2023, Expires: 3 Start: 03-20-2023 [facility] Start: 03-20-2023 Bacteria identified in Urine by Culture Urine Culture [facility] Start: 03-01-2023 End: 05-01-2023 25-hydroxyvitamin D3 [Mass/volume] in Serum or Plasma VITAMIN D 25 HYDROXY Lab Routine Vitamin D deficiency Expected: 03/01/2023, Expires: 05/01/2023 [facility] Work Phone: Comment on above: Expected: 03/01/2023, Expires: 3 Start: 03-01-2023 End: 05-01-2023 CBC panel - Blood by Automated count CBC Lab Routine Dyslipidemia Expected: 03/01/2023, Expires: 05/01/2023 [facility] Work Phone: Comment on above: Expected: 03/01/2023, Expires: 3 Start: 03-01-2023 End: 05-01-2023 Comprehensive metabolic 2000 panel - Serum or Plasma COMP METABOLIC PANEL Lab Routine Dyslipidemia Expected: 03/01/2023, Expires: 05/01/2023 [facility] Work Phone: Comment on above: Expected: 03/01/2023, Expires: 3 Start: 03-01-2023 End: 05-01-2023 Iron and Iron binding capacity panel - Serum or Plasma IRON + TIBC Lab Routine Other iron deficiency anemia Expected: 03/01/2023, Expires: 05/01/2023 [facility] Work Phone: Comment on above: Expected: 03/01/2023, Expires: 3 Start: 03-01-2023 End: 05-01-2023 Lipid 1996 panel - Serum or Plasma LIPID PANEL BASIC Lab Routine Dyslipidemia Expected: 03/01/2023, Expires: 05/01/2023 [facility] Work Phone: Comment on above: Expected: 03/01/2023, Expires: 3 Start: 03-01-2023 End: 05-01-2023 Thyrotropin [Units/volume] in Serum or Plasma TSH BLD Lab Routine Hypothyroidism, unspecified type Expected: 03/01/2023, Expires: 05/01/2023 [facility] Work Phone: Comment on above: Expected: 03/01/2023, Expires: 3 Start: 03-01-2023 End: 05-01-2023 Thyroxine (T4) free [Mass/volume] in Serum or Plasma T4 FREE/FREE THYROX Lab Routine Hypothyroidism, unspecified type Expected: 03/01/2023, Expires: 05/01/2023 [facility] Work Phone: Comment on above: Expected: 03/01/2023, Expires: 3 Start: 03-01-2023 End: 05-01-2023 Triiodothyronine (T3) Free [Mass/volume] in Serum or Plasma T3 FREE BLD Lab Routine Hypothyroidism, unspecified type Expected: 03/01/2023, Expires: 05/01/2023 [facility] Work Phone: Comment on above: Expected: 03/01/2023, Expires: 3 Start: 02-25-2023 Adult depression screening assessment DEPRESSION SCREENING [facility] Start: 02-25-2023 ANNUAL PCP TEAM CHRONIC DISEASE VISIT ANNUAL PCP TEAM CHRONIC DISEASE VISIT [facility] Start: 02-25-2023 SERUM CREATININE SERUM CREATININE [facility] Start: 02-25-2023 Urine microalbumin profile DTAP,TDAP,TD (1 - Tdap) [facility] Comment on above: Postponed from 1959 (Declined at t his time) Start: 08-23-2022 ADVANCE DIRECTIVE DISCUSSION ADVANCE DIRECTIVE DISCUSSION [facility] Start: 08-20-2022 SERUM CREATININE SERUM CREATININE [facility] Start: 04-23-2022 Influenza vaccination INFLUENZA (#1) [facility] Start: 03-29-2022 End: 05-29-2022 Thyrotropin [Units/volume] in Serum or Plasma TSH BLD Lab Routine Hypothyroidism, unspecified type Expected: 03/29/2022, Expires: 05/29/2022 [facility] Work Phone: Comment on above: Expected: 03/29/2022, Expires: 2 Start: 03-29-2022 End: 05-29-2022 Thyroxine (T4) free [Mass/volume] in Serum or Plasma T4 FREE/FREE THYROX Lab Routine Hypothyroidism, unspecified type Expected: 03/29/2022, Expires: 05/29/2022 [facility] Work Phone: Comment on above: Expected: 03/29/2022, Expires: 2 Start: 03-29-2022 End: 05-29-2022 Triiodothyronine (T3) [Mass/volume] in Serum or Plasma T3 BLD Lab Routine Hypothyroidism, unspecified type Expected: 03/29/2022, Expires: 05/29/2022 [facility] Work Phone: Comment on above: Expected: 03/29/2022, Expires: 2 Start: 02-25-2022 End: 04-27-2022 25-hydroxyvitamin D3 [Mass/volume] in Serum or Plasma [facility] Work Phone: Comment on above: Expected: 02/25/2022, Expires: 2 Start: 02-25-2022 End: 04-27-2022 CBC panel - Blood by Automated count [facility] Work Phone: Comment on above: Expected: 02/25/2022, Expires: 2 Start: 02-25-2022 End: 04-27-2022 Comprehensive metabolic 2000 panel - Serum or Plasma [facility] Work Phone: Comment on above: Expected: 02/25/2022, Expires: 2 Start: 02-25-2022 End: 04-27-2022 Ferritin [Mass/volume] in Serum or Plasma [facility] Work Phone: Comment on above: Expected: 02/25/2022, Expires: 2 Start: 02-25-2022 End: 04-27-2022 Hemoglobin A1c in Blood [facility] Work Phone: Comment on above: Expected: 02/25/2022, Expires: 2 Start: 02-25-2022 End: 04-27-2022 Iron and Iron binding capacity panel - Serum or Plasma [facility] Work Phone: Comment on above: Expected: 02/25/2022, Expires: 2 Start: 02-25-2022 End: 04-27-2022 Lipid 1996 panel - Serum or Plasma [facility] Work Phone: Comment on above: Expected: 02/25/2022, Expires: 2 Start: 02-25-2022 End: 04-27-2022 Thyrotropin [Units/volume] in Serum or Plasma [facility] Work Phone: Comment on above: Expected: 02/25/2022, Expires: 2 Start: 02-25-2022 End: 04-27-2022 Thyroxine (T4) free [Mass/volume] in Serum or Plasma [facility] Work Phone: Comment on above: Expected: 02/25/2022, Expires: 2 Start: 02-25-2022 End: 04-27-2022 Triiodothyronine (T3) [Mass/volume] in Serum or Plasma [facility] Work Phone: Comment on above: Expected: 02/25/2022, Expires: 2 Start: 01-24-2022 BP CONTROLLED (<130/80) BP CONTROLLED (<130/80) [facility] Start: 12-04-2021 COVID-19 VACCINE (4 - Booster for Moderna series) COVID-19 VACCINE (4 - Booster for Moderna series) [facility] Start: 09-30-2021 COVID-19 VACCINE (4 - Booster for Moderna series) COVID-19 VACCINE (4 - Booster for Moderna series) [facility] Start: 09-30-2021 COVID-19 VACCINE (4 - Moderna series) COVID-19 VACCINE (4 - Moderna series) [facility] Start: 08-23-2021 ADVANCE DIRECTIVE DISCUSSION ADVANCE DIRECTIVE DISCUSSION [facility] Start: 08-23-2021 DEPRESSION ASSESSMENT DEPRESSION ASSESSMENT [facility] Start: 2017 RSV Vaccine (1 - 1-dose 75+ series) RSV Vaccine (1 - 1-dose 75+ series) [facility] Start: 2002 RSV Vaccine (1 - 1-dose 60+ series) RSV Vaccine (1 - 1-dose 60+ series) [facility] Start: 1961 Urine microalbumin profile [facility] 25-hydroxyvitamin D3 [Mass/volume] in Serum or Plasma VITAMIN D 25 HYDROXY Lab Routine Vitamin D deficiency 02/10/2024 7:27 AM EDT [facility] Bacteria identified in Urine by Culture URINE CULTURE Microbiology Routine 04/06/2022 3:28 PM EDT [facility] Work Phone: Bacteria identified in Urine by Culture URINE CULTURE Microbiology Routine Dysuria Ordered: 03/31/2023 [facility] Work Phone: Comment on above: Ordered: 03/31/2023 Bacteria identified in Urine by Culture URINE CULTURE Microbiology Routine Dizziness 05/17/2023 4:08 PM EDT [facility] Work Phone: CBC W Auto Different ial panel - Blood COMPLETE BLOOD COUNT AND DIFFERENTIAL Lab Routine Other iron deficiency anemia 02/10/2024 7:27 AM EDT [facility] Cobalamin (Vitamin B 12) [Mass/volume] in Serum or Plasma VITAMIN B12 Lab Routine Stage 3a chronic kidney disease (HCC) 02/10/2024 7:27 AM EDT [facility] Comprehensive metabo lic 2000 panel - Serum or Plasma COMPREHENSIVE METABOLIC PANEL Lab Routine Stage 3a chronic kidney disease (HCC) 02/10/2024 7:27 AM EDT [facility] COVID & INFLUENZA A/ B & RSV NAAT, ROUTINE COVID & INFLUENZA A/B & RSV NAAT, ROUTINE Microbiology Routine URI, acute Ordered: 11/06/2023 [facility] Work Phone: Comment on above: Ordered: 11/06/2023 End: 07-08-2023 ECG COMPLETE ECG COMPLETE ECG Routine Gastroesophageal reflux disease, unspecified whether esophagitis present Essential hypertension 1 Occurrences starting 07/08/2022 until 07/08/2023 [facility] Work Phone: Comment on above: 1 Occurrences starting 07/08/2022 until 07/08/2023 ECG COMPLETE ECG COMPLETE ECG 11/24/2023 8:28 AM EDT [facility] End: 07-08-2023 Echocardiography ECHO Cardiology Routine Gastroesophageal reflux disease, unspecified whether esophagitis present Essential hypertension 1 Occurrences starting 07/08/2022 until 07/08/2023 [facility] Work Phone: Comment on above: 1 Occurrences starting 07/08/2022 until 07/08/2023 OUTSIDE VENDOR CARDI AC OUTPATIENT EXTENDED RHYTHM RECORDING (WITHOUT TELEMETRY) OUTSIDE VENDOR CARDIAC OUTPATIENT EXTENDED RHYTHM RECORDING (WITHOUT TELEMETRY) Holter Routine Dizziness Ordered: 07/21/2023 [facility] Work Phone: Comment on above: Ordered: 07/21/2023 Patient Education [facility] Work Phone: Patient referral [facility] Work Phone: Thyrotropin [Units/volume] in Serum or Plasma THYROID STIMULATING HORMONE Lab Routine Hypothyroidism, unspecified type 02/10/2024 7:27 AM EDT [facility] Thyroxine (T4) free [Mass/volume] in Serum or Plasma T4 FREE/FREE THYROXINE Lab Routine Hypothyroidism, unspecified type 02/10/2024 7:27 AM EDT [facility] UA DIP, URINE (POC) UA DIP, URIN E (POC) Lab Routine Dizziness Ordered: 05/17/2023 [facility] Work Phone: Comment on above: Ordered: 05/17/2023 End: 07-08-2023 US CAROTID ARTERIES DOE VAS LAB US CAROTID ARTERIES DOE VAS LAB Vascular Lab Routine Gastroesophageal reflux disease, unspecified whether esophagitis present Essential hypertension 1 Occurrences starting 07/08/2022 until 07/08/2023 [facility] Work Phone: Comment on above: 1 Occurrences starting 07/08/2022 until 07/08/2023 End: 07-21-2024 US CAROTID ARTERIES DOE VAS LAB US CAROTID ARTERIES DOE VAS LAB Vascular Lab Routine Dizziness 1 Occurrences starting 07/21/2023 until 07/21/2024 [facility] Work Phone: Comment on above: 1 Occurrences starting 07/21/2023 until 07/21/2024 [facility] Immunizations Immunization Date Immunization Notes Care Provider Kirstin dias 07-10-2024 influenza virus vacc ine, unspecified formulation Margoth Chavez APRN.CNP Work Phone: [facility] 06-14-2024 influenza, high dose seasonal, preservative-free Sreekanth Cortez DO Work Phone: [facility] 08-12-2023 influenza (HD-IIV4) vaccine, age 65+ yr, high dose, quadrivalent, PF (FLUZONE HIGH-DOSE) Donita Estes PALM GATHERER.[employer] Work Phone: [facility] 08-12-2023 influenza virus vacc ine, unspecified formulation Delilah Cabrera DO Work Phone: [facility] 06-08-2022 influenza, high dose seasonal, preservative-free Sergei Renner PALM GATHERER.[employer] Work Phone: [facility] 06-08-2022 influenza virus vacc ine, unspecified formulation Donita Estes PALM GATHERER.[employer] Work Phone: [facility] 07-05-2021 influenza, high dose seasonal, preservative-free Donita Zurawick PALM GATHERER.[employer] T[employer] Work Phone: [facility] Work Phone: 10-30-2020 COVID-19 vaccine, fu ll dose (MODERNA) Donita Zurawick PALM GATHERER.[employer]HS T[employer]OR Work Phone: [facility] 10-03-2020 COVID-19 vaccine, fu ll dose (MODERNA) Donita Zurawick PALM GATHERER.[employer]HS T[employer]OR Work Phone: [facility] 07-05-2020 zoster vaccine recombinant Donita Zurawick PALM GATHERER.[employer] Work Phone: [facility] Work Phone: 03-25-2020 zoster vaccine recombinant Donita Zurawick PALM GATHERER.[employer] Work Phone: [facility] Work Phone: 06-28-2019 influenza, high dose seasonal, preservative-free Donita Zurawick PALM GATHERER.[employer] Work Phone: [facility] Work Phone: 06-13-2018 influenza, high dose seasonal, preservative-free Donita Zurawick PALM GATHERER.[employer] Work Phone: [facility] Work Phone: 02-28-2016 pneumococcal conjuga te vaccine, 13 valent Donita Seymourrebecca PALM GATHERER.[employer] Work Phone: [facility] Work Phone: 02-27-2013 pneumococcal polysaccharide vaccine, 23 valent Donita Piercesadie PALM GATHERER.[facility] Work Phone: [facility] Work Phone: Payers Date Payer Category Payer Self-pay [id number] 2024 Unknown [id number] 2023 Medicare (Managed Care) [id number] 2023 Unknown [id number] 2020 Medicare UHC AARP MEDICAR E [facility] MEDICARE O [id number] 2020-Present [phone] [address] [address] [place] [address] [facility] [id number] 2020 Medicare [id number] 1940 Unknown [id number] Medicare [id number] Medicare MEDICARE PART A B [id number] Unknown Unknown [facility] MCR SOLUTIONS [id number] Unknown AAR MCR [id number] [id number] Unknown [id number] Social History Date Type Detail Facility Start: 04-06-2022 End: 02-22-2025 Tobacco smoking status NHIS Never smoked tobacco [facility] Start: 02-25-2022 End: 03-13-2025 Alcohol intake Current non-drinker of alcohol (finding) [facility] Start: 1940 Sex Assigned At Female C [facility] Start: 02-15-2022 End: 07-08-2022 Exposure to SARS-CoV-2 (event) Not sure [facility] Start: 04-06-2022 Tobacco use and exposure Smokeless tobacco non-user [facility] Start: 12-25-2022 End: 08-10-2023 History of Social function [facility] Work Phone: Start: 12-25-2022 End: 08-10-2023 Tobacco use panel [facility] Work Phone: Adult Depression Screening Assessment 0 [facility] Work Phone: Start: 06-23-2020 Gender identity Identifies as female gender (finding) [facility] Start: 03-20-2023 End: 06-29-2023 Tobacco smoking status NHIS Unknown if ever smoked [facility] Start: 10-05-2017 None [facility] Start: 10-03-2017 Spouse/ Signif icant Other [facility] (I/We) worried da er (my/our) food would run out before (I/we) got money to buy more. Never true [facility] In the past 12 month s, was there a time when you were not able to pay the mortgage or rent on time? No [facility] Functional Status Date Assessment Result Facility 02-25-2025 Are you deaf, or do you have serious difficulty hearing No [facility] 02-25-2025 Are you blind, or do you have serious difficulty seeing, even when wearing glasses No [facility] 02-25-2025 Do you have serious difficulty walking or climbing stairs No [facility] 02-25-2025 Do you have difficul ty dressing or bathing No [facility] 02-25-2025 Because of a physica l, mental, or emotional condition, do you have difficulty doing errands alone such as visiting a physician's office or shopping No [facility] 08-13-2023 Are you deaf, or do you have serious difficulty hearing No 08/13/2023 2:52 PM Laura Garcia, ENEDELIA No [facility] 08-13-2023 Are you blind, or do you have serious difficulty seeing, even when wearing glasses No 08/13/2023 2:52 PM Laura Garcia, ENEDELIA No [facility] 08-13-2023 Do you have serious difficulty walking or climbing stairs No 08/13/2023 2:52 PM Laura Garcia, ENEDELIA No [facility] 08-13-2023 Do you have difficul ty dressing or bathing No 08/13/2023 2:52 PM Laura Garcia, ENEDELIA No [facility] 08-13-2023 Because of a physica l, mental, or emotional condition, do you have difficulty doing errands alone such as visiting a physician's office or shopping No 08/13/2023 2:52 PM Laura Garcia, ENEDELIA No [facility] Mental Status Date Assessment Result Facility 02-25-2025 Because of a physica l, mental, or emotional condition, do you have serious difficulty concentrating, remembering, or making decisions No [facility] 02-22-2025 Cognitive function Level Of Cons ciousness Awake;Alert;Appropriate;Fol lows Commands [facility] Work Phone: 08-13-2023 Because of a physica l, mental, or emotional condition, do you have serious difficulty concentrating, remembering, or making decisions No 08/13/2023 2:52 PM Laura Garcia, ENEDELIA No [facility] 06-29-2023 Cognitive function Level Of Cons ciousness Awake;Appropriate;Drowsy [facility] Work Phone: 03-20-2023 Cognitive function Level Of Cons ciousness Awake;Alert;Appropriate;Fol lows Commands [facility] Work Phone: Clinical Notes 02-25-2022 to 08-06-2025 Telephone Encounter - Anita Guevara RN - 03/21/2025 9:13 AM EDTTelephone Encounter - Anita Guevara RN - 03/21/2025 9:13 AM EDTTelephone Encounter - Anita Guevara RN - 03/17/2025 12:25 PM EDT Note Date & Type Note Facility 03-28-2025 Note HNO ID: [id number] Author: MARILYN GUTIERREZ PA-C Service: ? Author Type: Physician Gauger Chief Type: Progress Notes Filed: 03/28/2025 08:02 Note Text: Chief Complaint Patient presents with: Follow Up: Blood pressure HPI Casandra Henry is a 85 year old female who presents here today for Above Complaints.. Hypertension: - BP fluctuations with readings ranging from 131/75 to 162/87 mmHg today in office. - Recent symptoms of numbness in lips, dizziness, and facial flushing after taking losartan and amlodipine. - Concerns about potential allergic reactions to medications. - Recent adjustments to antihypertensive regimen, including discontinuation of clonidine patch and increase in amlodipine to 10 mg. - Currently taking Coreg BID and hydralazine PRN. - Recent sodium level at 137 mEq/L. - History of low sodium levels requiring supplementation. - Recent cortisol levels within normal range. - Scheduled cardiology appointment with Dr. Lewis at [facility] on 04/04. - Previous evaluation by varnish finisher Dr. Ray for stage 3 CKD- states she was cleared by him - Recent thyroid function tests within normal limits. Past medical history, appointments, medications, allergies reviewed. Previous Medical History PAST MEDICAL HISTORY Diagnosis Date Acid reflux Hiatal hernia Hypertension Hypothyroid Palpitation Previous Surgical History PAST SURGICAL HISTORY Procedure Laterality Date CARPAL TUNNEL 2001 bilateral COLONOSCOPY FLX DX W/COLLJ SPEC WHEN PFRMD 12/05/2013 Colonoscopy done in [facility] FLX W/REMOVAL LESION BY HOT [...] Brother 76 Patient Allergies ALLERGIES Allergen Reactions Amlodipine Other: See Comments Lip numbness Gluten Cough, GI Upset Latex Itching Positive patch test Losartan Other: See Comments Numbness of lips Milk Containing Pro* Cough Current Medications Current Outpatient Medications on File Prior to Visit Medication Sig sodium chloride soluble tablet 1 g Take 1 tablet by mouth once daily. hydrALAZINE (APRESOLINE) 25 mg tablet Take 1 tablet by mouth three times a day as needed (elevated blood pressure > 140/90). SYNTHROID 100 mcg tablet Take 1 tablet by mouth once daily. Take on empty stomach carvedilol (COREG) 12.5 mg tablet Take 1 tablet by mouth two times a day. furosemide (LASIX) 20 mg tablet Take 1 tablet by mouth once daily as needed. multivit with iron,minerals (MULTIVITAMIN AND MINERALS ORAL) Take by mouth. No current facility-administered medications on file prior to visit. Social History Social History Tobacco Use Smoking status: Never Smokeless tobacco: Never Vaping Use Vaping status: Never Used Substance Use Topics Alcohol use: No Drug use: No Review of Symptoms REVIEW OF SYSTEMS Constitutional: (+) fatigue Cardiovascular: (+) palpitations Skin: (+) facial flushing Neurological: (+) perioral numbness, (+) dizziness, (+) shakiness, (+) brain fog Psychiatric: (+) nervousness SEE HPI EXAM: BP 148/80 (BP Site: Left Arm, BP Position: Sitting, BP Cuff Size: Regular Adult) Pulse 88 Temp 37 ?C (98.6 ?F) Resp 16 Wt 61.2 kg (135 lb) SpO2 95% BMI 24.69 kg/m? General Appearance: Well appearing, alert, in no acute distress, well-hydrated, well nourished.. Neck: Supple, no adenopathy; thyroid symmetric, normal size, no bruits. Lungs: Lungs clear to auscultation. No wheezing, rhonchi, rales.. Heart: RRR without murmur, gallop, or rubs. No ectopy. Health Maintenance List Advance Directive Discussion Never done Medicare Advantage Annual Wellness Visit Never done DTaP,Tdap,Td Vaccine(1 - Tdap) due on 2026 RSV Vaccine(1 - 1-dose 75+ series) due on 2026 Influenza Vaccine(1) due on 04/23/2025 Depression Screening due on 2026 Anxiety Screening due on 2026 Diabetes Screening due on 03/08/2028 Bone Density Screening Completed Shingrix Vaccine Completed Pneumococcal Vaccine: 50+ Completed Colorectal Cancer Screening Discontinued Data reviewed Latest Ref Rng 02/25/2025 03/08/2025 WBC 3.70 - 11.00 k/uL 8.33 RBC 3.90 - 5.20 m/uL 3.90 Hemoglobin 11.5 - 15.5 g/dL 11.9 Hematocrit 36.0 - 46.0 % 34.4 (L) MCV 80.0 - 100.0 fL 88.2 MCH 26.0 - 34.0 pg 30.5 MCHC 30.5 - 36.0 g/dL 34.6 RDW-CV 11.5 - 15.0 % 11.9 Platelet Count 150 - 400 k/uL 270 MPV 9.0 - 12.7 fL 9.3 Neut% % 61.8 Abs Neut (ANC) 1.45 - (more content not included)... [facility] 03-21-2025 Telephone encounter Note Called and spoke with pt and she states her daughter Anuja Zapata is seeing Dr. Cortez today so she took BP readings in to her. Discussed medications that pt is currently taking/using with pt for confirmation. Pt has not taken any Lasix or Hydralazine for about a week or so. Pt states she takes all her morning pills at the same time around 7 am-mike and all evening pills at the same time around 7 pm-mike. Pt is concerned her BP is going to drop too low. Pulse has now come back to the 70's. BP this morning before pills 150/81-70 and repeat an hour after pills 106/68-75 Pt is currently taking her BP meds as follows: 1) Amlodipine 5 mg in AM (needs refill if want to continue med) Pended-please discard order if not wanting to refill med. 2) Carvedilol 12.5 mg in AM and 12.5 mg in PM Provider needs to please confirm what dosage she wants pt to take. Currently on med list, pt is to be taking Carvedilol 6.25 mg BID. Pt has both 12.5 mg tablets at home and also 25 mg tablets. That is the only 2 strengths she has at home. 3) Wearing a Clonidine TTS patch 0.1 mg patch. Changes on Wed (I think from previous discussion). Pt has only 1 or 2 patches left. If provider wants pt to stay on the 0.1 mg patches, she will need refill. If should be wearing the 0.2 mg, pt will need called back and told to put the 0.2 mg patch on (already has those patches at home). 4) Losartan 50 mg BID. [facility] 03-21-2025 Miscellaneous Notes Called and spoke with pt and she states her daughter Anuja Zapata is seeing Dr. Cortez today so she took BP readings in to her. Discussed medications that pt is currently taking/using with pt for confirmation. Pt has not taken any Lasix or Hydralazine for about a week or so. Pt states she takes all her morning pills at the same time around 7 am-mike and all evening pills at the same time around 7 pm-mike. Pt is concerned her BP is going to drop too low. Pulse has now come back to the 70's. BP this morning before pills 150/81-70 and repeat an hour after pills 106/68-75 Pt is currently taking her BP meds as follows: 1) Amlodipine 5 mg in AM (needs refill if want to continue med) Pended-please discard order if not wanting to refill med. 2) Carvedilol 12.5 mg in AM and 12.5 mg in PM Provider needs to please confirm what dosage she wants pt to take. Currently on med list, pt is to be taking Carvedilol 6.25 mg BID. Pt has both 12.5 mg tablets at home and also 25 mg tablets. That is the only 2 strengths she has at home. 3) Wearing a Clonidine TTS patch 0.1 mg patch. Changes on Wed (I think from previous discussion). Pt has only 1 or 2 patches left. If provider wants pt to stay on the 0.1 mg patches, she will need refill. If should be wearing the 0.2 mg, pt will need called back and told to put the 0.2 mg patch on (already has those patches at home). 4) Losartan 50 mg BID. I am not sure what discussion regarding dosing was had at last appt with patient. Will wait for tomorrow to clarify with Margoth Cortez DO Called pt back and current BP reading is 139/78 and pulse 81. Pt instructed to take 12.5 mg of Carvedilol tonight and both of her doses tomorrow and Wednesday morning if BP high. Use Hydralazine as needed. Pt instructed to write down all her BP readings from yesterday, today, tomorrow and Wednesday morning and have her daughter Anuja send them in a [employer] msg. Once sent, then call in and speak to a nurse so that the nurse can copy and paste readings into this encounter and forward the information on to Margoth Scott. Pt asking about her Clonidine patch. Instructed if Margoth told her she could add another 0.1 mg patch and have both on, she could do that. Current Questions/information for Margoth after above information is received: 1) What dosage of Carvedilol should pt continue? The 12.5 or the 6.25. If 6.25 mg, do you want to send a script in for that dose to [facility] since pt had some confusion on which dose to cut in half at home. 2) Do you want pt to put on the 0.2 mg patch as she has only been wearing 0.1 mg? If you want her to stay with 0.1 mg patches, she would need a new script sent in as she only has 2 left. She picked up the 0.2 mg patches. With high BP today I would recommend she take the hydralazine as ordered. I would have her take 12.5 mg dose of carvedilol tonight and this weekend since she has 25 mg tablets at home. Needs to picker tender new rx or clonidine patch and new rx for carvedilol. Call PCP team on Wednesday with repeat BP readings. Go to the ER with severe headache, chest pain, Shortness of Breath, leg swelling, confusion, or symptoms of stroke with high BP >160/100. Called and spoke with pt. Pt has been having problems with high blood pressure now for several months. Pt states they have been changing her medications and trying to find what is going to work. On 02/05, Dr. Cortez stopped pt's Metoprolol and started her on Carvedilol 12.5 mg BID. On 02/19, pt saw Margoth Chavez with no med changes but a referral to [facility] for labile blood pressure. On 02/24, pt went to [facility] and was admitted overnight for BP-discharged on 02/25. Her Carvedilol was increased to 25 mg BID. Then pt had a visit with Margoth Chavez on 02/26 and started pt on Clonidine 0.1 mg/24 hr patches and documented to stop the Carvedilol due to high interactions with Catapres and also started pt on Norvasc 5 mg daily. Then Margoth saw her again on 03/12. In that note, it does not appear she made any med changes, but found in pt's AVS in instructions for pt to start Carvedilol 6.25 mg twice daily for her increased heart rate and put if pt had 12.5 mg tablets at home, to cut them in half. Pt also has Hydralazine 25 mg with directions of taking 1 tablet 3 times a day as needed for BP >140/90. So current meds for BP on med list are: -Amlodipine 5 mg tablet daily -Carvedilol 6.25 mg BID with meals -Clonidine TTS 0.2 mg/24 hr patch -Losartan 50 mg BID -Furosemide 20 mg 1 tab daily prn -Hydralazine 25 mg tab 1 TID prn BP >140/90 Pt is confused and concerned about both her BP and her HR. States her heart rate used to be in the 70s and now seems to always be in the 80s or 90s and occasionally over 100. States yesterday her BP was 160's/90 and this morning it was 166/86 pulse 89. She had another BP one morning a few days ago that was 107/61. Pt isn't sure about taking the Carvedilol as she is concerned her BP an P will get too low. So this morning she only took Carvedilol 1/2 pill instead of whole. Explained to pt that she is to take a full tablet (6.25 mg according to med list) twice a day with meals. Encouraged pt to take the other half since her BP is 166/86 and pulse 89 this morning. Instructed pt to take her BP 4 times a day each time before she would take a BP med. Pt takes her BP meds at the approximate times below: -Amlodipine and Losartan at around 7 am -Carvedilol after breakfast around 8 am -Carvedilol with dinner around 6 pm -Losartan in the evening around 7 pm And then is wearing her Clonidine patch and takes her Hydralazine as needed During conversation, pt states she is wearing a Clonidine 0.1 mg patch as Margoth told her to finish those out. She said she could add and wear another 0.1 mg patch if needed as well. In review of chart, noted in Margoth's OV note to stop the Carvedilol due to high interactions with Catapres. So called pt back and found out that pt has both Carvedilol 25 mg tablets at home and Carvedilol 12.5 mg at home. She does not have any 6.25 mg tablets. In looking at AVS on 03/12, there is the note about pt taking half of 12.5 mg. Pt does not remember Margoth telling her that so pt took half of a Carvedilol 25 mg tablet so when I told her to take the other half of her tablet (which I thought was a 6.25 mg tablet) she actually took another 12.5 mg so equal to 25 mg total this morning. Had pt take her BP now and it is still 163/93 and pulse 107. Went over pt's med list and OV notes and instructed pt that she is to take a half of 12.5 mg tablet Carvedilol twice daily with meals and that will confirm about the Clonidine patches as med list says a 0.2 mg patch but unable to find documentation where Margoth increased it from the 0.1 mg to the 0.2 mg or where she told pt she could wear two of the 0.1 mg patches. Currently pt is only wearing a 0.1 mg patch. Pt instructed to take BP and P before each dose of BP med and document that for about 3-4 days and send readings in through her MyChart. Continue with the Hydralazine if BP >140/90. Will confirm with Margoth on patch dosage and Carvedilol dosing as pt was confused on that. casandra is calling Sreekanth Cortez DO today with concern regarding Patient Question (Heart rate) Patient reports her heart rate has been elevated for a while. She states her blood pressure is normal in the 140's - 150's. She is on a patch. Patient has been identified by name and birthdate. Duration of symptoms: N/A Person calling: self Call patient at: at home [phone] (home) [phone] (cell) Was an appointment scheduled: No Closing statement: Mary Jackman Pss documented in this encounter [facility] 03-20-2025 Telephone encounter Note I am not sure what discussion regarding dosing was had at last appt with patient. Will wait for tomorrow to clarify with Margoth Scott Cortez DO [facility] 03-17-2025 Telephone encounter Note Called pt back and current BP reading is 139/78 and pulse 81. Pt instructed to take 12.5 mg of Carvedilol tonight and both of her doses tomorrow and Wednesday morning if BP high. Use Hydralazine as needed. Pt instructed to write down all her BP readings from yesterday, today, tomorrow and Wednesday morning and have her daughter Anuja send them in a MyChart msg. Once sent, then call in and speak to a nurse so that the nurse can copy and paste readings into this encounter and forward the information on to Margoth Chavez. Pt asking about her Clonidine patch. Instructed if Margoth told her she could add another 0.1 mg patch and have both on, she could do that. Current Questions/information for Margoth after above information is received: 1) What dosage of Carvedilol should pt continue? The 12.5 or the 6.25. If 6.25 mg, do you want to send a script in [facility] that dose [facility] since pt had some confusion on which dose to cut in half at home. 2) Do you want pt to put on the 0.2 mg patch as she has only been wearing 0.1 mg? If you want her to stay with 0.1 mg patches, she would need a new script sent in as she only has 2 left. She picked up the 0.2 mg patches. T [facility] 03-17-2025 Telephone encounter Note With high BP today I would recommend she take the hydralazine as ordered. I would have her take 12.5 mg dose of carvedilol ton and this weekend since she has 25 mg tablets at home. Needs to picker tender new rx or clonidine patch and new rx for carvedilol. Call PCP team on Wednesday with repeat BP readings. Go to the ER with severe headache, chest pain, Shortness of Breath, leg swelling, confusion, or symptoms of stroke with high BP >160/100. T [facility] Work Phone: 03-17-2025 Telephone encounter Note Called and spoke with pt. Pt has been having problems with high blood pressure now for several months. Pt states they have been changing her medications and trying to find what is going to work. On 02/05, Dr. Cortez stopped pt's Metoprolol and started her on Carvedilol 12.5 mg BID. On 02/19, pt saw Margoth Chavez with no med changes but a referral to [facility] for labile blood pressure. On 02/24, pt went to [facility] and was admitted overnight for BP-discharged on 02/25. Her Carvedilol was increased to 25 mg BID. Then pt had a visit with Margoth Chavez on 02/26 and started pt on Clonidine 0.1 mg/24 hr patches and documented to stop the Carvedilol due to high interactions with Catapres and also started pt on Norvasc 5 mg daily. Then Margoth saw her again on 03/12. In that note, it does not appear she made any med changes, but found in pt's AVS in instructions for pt to start Carvedilol 6.25 mg twice daily for her increased heart rate and put if pt had 12.5 mg tablets at home, to cut them in half. Pt also has Hydralazine 25 mg with directions of taking 1 tablet 3 times a day as needed for BP >140/90. So current meds for BP on med list are: -Amlodipine 5 mg tablet daily -Carvedilol 6.25 mg BID with meals -Clonidine TTS 0.2 mg/24 hr patch -Losartan 50 mg BID -Furosemide 20 mg 1 tab daily prn -Hydralazine 25 mg tab 1 TID prn BP >140/90 Pt is confused and concerned about both her BP and her HR. States her heart rate used to be in the 70s and now seems to always be in the 80s or 90s and occasionally over 100. States yesterday her BP was 160's/90 and this morning it was 166/86 pulse 89. She had another BP one morning a few days ago that was 107/61. Pt isn't sure about taking the Carvedilol as she is concerned her BP an P will get too low. So this morning she only took Carvedilol 1/2 pill instead of whole. Explained to pt that she is to take a full tablet (6.25 mg according to med list) twice a day with meals. Encouraged pt to take the other half since her BP is 166/86 and pulse 89 this morning. Instructed pt to take her BP 4 times a day each time before she would take a BP med. Pt takes her BP meds at the approximate times below: -Amlodipine and Losartan at around 7 am -Carvedilol after breakfast around 8 am -Carvedilol with dinner around 6 pm -Losartan in the evening around 7 pm And then is wearing her Clonidine patch and takes her Hydralazine as needed During conversation, pt states she is wearing a Clonidine 0.1 mg patch as Margoth told her to finish those out. She said she could add and wear another 0.1 mg patch if needed as well. In review of chart, noted in Margoth's OV note to stop the Carvedilol due to high interactions with Catapres. So called pt back and found out that pt has both Carvedilol 25 mg tablets at home and Carvedilol 12.5 mg at home. She does not have any 6.25 mg tablets. In looking at AVS on 03/12, there is the note about pt taking half of 12.5 mg. Pt does not remember Margoth telling her that so pt took half of a Carvedilol 25 mg tablet so when I told her to take the other half of her tablet (which I thought was a 6.25 mg tablet) she actually took another 12.5 mg so equal to 25 mg total this morning. Had pt take her BP now and it is still 163/93 and pulse 107. Went over pt's med list and OV notes and instructed pt that she is to take a half of 12.5 mg tablet Carvedilol twice daily with meals and that will confirm about the Clonidine patches as med list says a 0.2 mg patch but unable to find documentation where Margoth increased it from the 0.1 mg to the 0.2 mg or where she told pt she could wear two of the 0.1 mg patches. Currently pt is only wearing a 0.1 mg patch. Pt instructed to take BP and P before each dose of BP med and document that for about 3-4 days and send readings in through her MyChart. Continue with the Hydralazine if BP >140/90. Will confirm with Margoth on patch dosage and Carvedilol dosing as pt was confused on that. [facility] 03-17-2025 Telephone encounter Note casandra is calling Sreekanth Cortez DO today with concern regarding Patient Question (Heart rate) Patient reports her heart rate has been elevated for a while. She states her blood pressure is normal in the 140's - 150's. She is on a patch. Patient has been identified by name and birthdate. Duration of symptoms: N/A Person calling: self Call patient at: at home [phone] (home) [phone] (cell) Was an appointment scheduled: No Closing statement: Mary Ocampo [facility] Work Phone: 2025 Instructions Margoth Chavez APRN.SATISH - 2025 11:38 AM EDT Schedule appt to come in if our blood pressures aren't controlling or if you have any issues Start carvedilol 6.25mg twice daily for your increased heart rate (if you have 12.5mg tablets at home, cut in half) Take sodium tablet 1 tablet by mouth once daily Get your sodium level rechecked in one month documented in this encounter [facility] 2025 History of Presen t illness Narrative This is a 85 year old female who presents today with: 2 week follow up Office visit 02/26, assessment and plan: ASSESSMENT/PLAN: 1. Hyponatremia - ICD9: 276.1, ICD10: E87.1 (primary diagnosis) - SODIUM CHLORIDE 1,000 MG SOLUBLE TABLET x 7 days - BASIC METABOLIC PANEL in 2 weeks prior to follow up -change lasix to PRN only 2. Hypertension, essential - ICD9: 401.9, ICD10: I10 - Uncontrolled - Factors affecting control: hyponatremia, side effects meds - Recommend home blood pressure monitoring, to bring results to next visit including HR - FUROSEMIDE 20 MG TABLET prn only - CLONIDINE 0.1 MG/24 HR WEEKLY TRANSDERMAL PATCH -stop carvedilol due to high interactions with catapres -start norvasc 5mg daily HISTORY OF PRESENT ILLNESS: Elevated Heart Rate: - Noted increased heart rate over the past few nights. - Previously on metoprolol, switched to carvedilol by Dr. Cortez, then discontinued. - Currently on amlodipine and clonidine. - Reports heart rate sometimes reaching 100-102 bpm. - denies palpitations HTN Home log SBP 122-202 HR 76-111 Less administration of prn hydralazine Has had more good days since last visit Less dizziness but still occurs requiring rest Fatigue- has good and bad days Headaches- denies Epistaxis- denies Chest pain- denies Most Recent 03/15/22 - 03/13/25 12/25/24 02/05/25 08:41 02/19/25 02/24/25 02/25/25 02/26/25 09:07 03/12/25 11:14 BP 120/62 03/12/25 11:14 199/87 [1] 180/80 170/80 130/78 168/82 170/80 120/62 Most Recent 03/15/22 - 03/13/25 12/25/24 02/05/25 08:41 02/19/25 02/24/25 02/25/25 02/26/25 09:07 03/12/25 11:14 Pulse 88 03/12/25 11:14 71 84 68 75 70 75 88 Sodium Level Management: - Sodium levels recently normalized to 137 mEq/L. - Completed a week-long course of sodium supplements about a week ago; took additional supplements over the past two nights due to feeling unwell. - Has extra sodium supplements from previous hospitalization. Edema: - Edema controlled with compression socks. - Takes diuretics PRN for edema. - Takes daily naps with legs elevated above her heart - denies an increase in edema with added amlodipine Iron Deficiency: - Takes two iron supplements daily. - Consumes fruits and vegetables supplements to aid iron absorption. Back Pain: - Reports numbness in one leg at night, attributed to lower back issues. - not painful but causes her anxiety sometimes Next appt with Dr Cortez in April PAST MEDICAL HISTORY: PAST MEDICAL HISTORY Diagnosis Date Acid reflux Hiatal hernia Hypertension Hypothyroid Palpitation PAST SURGICAL HISTORY Procedure Laterality Date CARPAL TUNNEL 2000 bilateral COLONOSCOPY FLX DX W/COLLJ SPEC WHEN PFRMD 12/05/2013 Colonoscopy done in [facility] FLX W/REMOVAL LESION BY HOT BX FORCEPS 02/19/[address] Catarino Salas LAPAROSCOPIC DUODENAL BIOPSY 02/13/2020 Catarino Salas MD; duodenal biopsy, gastric antrum biopsy, irregular GE junction bopsy, proximal gastric body soft tissue prominence biopsy all performed ALLERGIES Gluten, Latex, and Milk Containing Products (Dairy) MEDICATIONS Current Outpatient Medications Medication Sig furosemide (LASIX) 20 mg tablet Take 1 tablet by mouth once daily as needed. cloNIDine TTS (ORZVORRU-QOF-2) 0.1 mg/24 hr Apply 1 patch as directed one time a week. amLODIPine (NORVASC) 5 mg tablet Take 1 tablet by mouth once daily. hydrALAZINE (APRESOLINE) 25 mg tablet Take 1 tablet by mouth three times a day as needed (elevated blood pressure > 140/90). losartan (COZAAR) 50 mg tablet Take 1 tablet by mouth two times a day. SYNTHROID 100 mcg tablet Take 1 tablet by mouth once daily. Take on empty stomach multivit with iron,minerals (MULTIVITAMIN AND MINERALS ORAL) [...] No Drug use: No REVIEW OF SYSTEMS See HPI EXAM: There were no vitals taken for this visit. PHYSICAL EXAM: General Appearance: Well appearing, alert, in no acute distress, well-hydrated, well nourished.. Casandra is more upbeat today, showing more energy levels Skin: Skin color, texture, turgor normal, no suspicious rashes or lesions. Improved skin color Lungs: Lungs clear to auscultation. No wheezing, rhonchi, rales.. Heart: RRR without murmur, gallop, or rubs. No ectopy. Extremities: has compression hose/stockings on, appear per her usual as far as edema ASSESSMENT/PLAN: 1. Hypertension, essential - ICD9: 401.9, ICD10: I10 (primary diagnosis) - Home blood pressure readings mixed readings but improved - Improving control - Recommend home blood pressure monitoring, to bring results to next visit - Recommend regular aerobic exercise as tolerated 2. Hyponatremia - ICD9: 276.1, ICD10: E87.1 - SODIUM CHLORIDE 1,000 MG SOLUBLE TABLET- take one tab daily for maintenance - BASIC METABOLIC PANEL- follow up 3. Screening for depression - ICD9: V79.0, ICD10: Z13.31 - DEPRESSION SCREENING 4. Encounter for screening examination for other mental health and behavioral disorders - ICD9: V79.8, ICD10: Z13.39 - ANXIETY SCREENING Discussed treatment plan and patient voices understanding. Patient's questions answered appropriately. Medications and potential side effects were discussed and patient voices understanding. Return to the office as scheduled or as needed for worsening/no improvement. Margoth Chavez APRN.MATHS TUTOR Recording using Our Security Team software for draft documentation of the visit was discussed with the patient/authorized ict sales representative; all questions welcomed and answered. Patient/authorized ict sales representative agreed to proceed documented in this encounter [facility] 2025 Note HNO ID: [id number] Author: MARGOTH CHAVEZ APRN.MATHS TUTOR Service: ? Author Type: Nurse Practitioner Type: Progress Notes Filed: 03/13/2025 23:29 Note Text: This is a 85 year old female who presents today with: 2 week follow up Office visit 02/26, assessment and plan: ASSESSMENT/PLAN: 1. Hyponatremia - ICD9: 276.1, ICD10: E87.1 (primary diagnosis) - SODIUM CHLORIDE 1,000 MG SOLUBLE TABLET x 7 days - BASIC METABOLIC PANEL in 2 weeks prior to follow up -change lasix to PRN only 2. Hypertension, essential - ICD9: 401.9, ICD10: I10 - Uncontrolled - Factors affecting control: hyponatremia, side effects meds - Recommend home blood pressure monitoring, to bring results to next visit including HR - FUROSEMIDE 20 MG TABLET prn only - CLONIDINE 0.1 MG/24 HR WEEKLY TRANSDERMAL PATCH -stop carvedilol due to high interactions with catapres -start norvasc 5mg daily HISTORY OF PRESENT ILLNESS: Elevated Heart Rate: - Noted increased heart rate over the past few nights. - Previously on metoprolol, switched to carvedilol by Dr. Cortez, then discontinued. - Currently on amlodipine and clonidine. - Reports heart rate sometimes reaching 100-102 bpm. - denies palpitations HTN Home log SBP 122-202 HR 76-111 Less administration of prn hydralazine Has had more good days since last visit Less dizziness but still occurs requiring rest Fatigue- has good and bad days Headaches- denies Epistaxis- denies Chest pain- denies Most Recent 03/15/22 - 03/13/25 12/25/24 02/05/25 08:41 02/19/25 02/24/25 02/25/25 02/26/25 09:07 03/12/25 11:14 BP 120/62 03/12/25 11:14 199/87 [1] 180/80 170/80 130/78 168/82 170/80 120/62 Most Recent 03/15/22 - 03/13/25 12/25/24 02/05/25 08:41 02/19/25 02/24/25 02/25/25 02/26/25 09:07 03/12/25 11:14 Pulse 88 03/12/25 11:14 71 84 68 75 70 75 88 Sodium Level Management: - Sodium levels recently normalized to 137 mEq/L. - Completed a week-long course of sodium supplements about a week ago; took additional supplements over the past two nights due to feeling unwell. - Has extra sodium supplements from previous hospitalization. Edema: - Edema controlled with compression socks. - Takes diuretics PRN for edema. - Takes daily naps with legs elevated above her heart - denies an increase in edema with added amlodipine Iron Deficiency: - Takes two iron supplements daily. - Consumes fruits and vegetables supplements to aid iron absorption. Back Pain: - Reports numbness in one leg at night, attributed to lower back issues. - not painful but causes her anxiety sometimes Next appt with Dr Cortez in April PAST MEDICAL HISTORY: PAST MEDICAL HISTORY Diagnosis Date Acid reflux Hiatal hernia Hypertension Hypothyroid Palpitation PAST SURGICAL HISTORY Procedure Laterality Date CARPAL TUNNEL 2001 bilateral COLONOSCOPY FLX DX W/COLLJ SPEC WHEN PFRMD 12/05/2013 Colonoscopy done in [facility] FLX W/REMOVAL LESION BY HOT BX FORCEPS 02/19/[address] Catarino Salas LAPAROSCOPIC DUODENAL BIOPSY 02/13/2020 Catarino Salas MD; duodenal biopsy, gastric antrum biopsy, irregular GE junction bopsy, proximal gastric body soft tissue prominence biopsy all performed ALLERGIES Gluten, Latex, and Milk Containing Products (Dairy) MEDICATIONS Current Outpatient Medications Medication Sig furosemide (LASIX) 20 mg tablet Take 1 tablet by mouth once daily as needed. cloNIDine TTS ([id number]) 0.1 mg/24 hr Apply 1 patch as directed one time a week. amLODIPine (NORVASC) 5 mg tablet Take 1 tablet by mouth once daily. hydrALAZINE (APRESOLINE) 25 mg tablet Take 1 tablet by mouth three times a day as needed (elevated blood pressure > 140/90). losartan (COZAAR) 50 mg tablet Take 1 tablet by mouth two times a day. SYNTHROID 100 mcg tablet Take 1 tablet by mouth once daily. Take on empty stomach multivit with iron,minerals (MULTIVITAMIN AND MINERALS ORAL) [...] No Drug use: No REVIEW OF SYSTEMS See HPI EXAM: There were no vitals taken for this visit. PHYSICAL EXAM: General Appearance: Well appearing, alert, in no acute distress, well-hydrated, well nourished.. Casandra is more upbeat today, showing more energy levels Skin: Skin color, texture, turgor normal, no suspicious rashes or lesions. Improved skin color Lungs: Lungs clear to auscultation. No wheezing, rhonchi, rales.. Heart: RRR without murmur, gallop, or rubs. N (more content not included)... [facility] 03-08-2025 Telephone encounter Note Transitional Care Management (TCM) [facility] Monitoring Program Provider Action / FYI: na SUMMARY: Outreach type: INITIAL OUTREACH Discharge Network Status: In-Network Discharge Source of Patient: [facility] TCM Discharge Report Patient discharged from [place] on 02.25.25. Admitted for Dizziness. . Contact made with patient: No - 2nd unsuccessful attempt - end outreach and close encounter. Vale Yu March 08, 2025 9:49 AM [facility] 03-08-2025 Miscellaneous Notes Transitional Care Management (TCM) [facility] Monitoring [facility] Provider Action / FYI: na SUMMARY: Outreach type: INITIAL OUTREACH Discharge Network Status: In-Network Discharge Source of Patient: [facility] TCM Discharge Report Patient discharged from [place] on 02.25.25. Admitted for Dizziness. . Contact made with patient: No - 2nd unsuccessful attempt - end outreach and close encounter. Vale Yu March 08, 2025 9:49 AM documented in this encounter [facility] 02-28-2025 Telephone encounter Note Transitional Care Management (TCM) [facility] Monitoring [facility] Provider Action / FYI: N/a SUMMARY: Outreach type: INITIAL OUTREACH Discharge Network Status: In-Network Discharge Source of Patient: [facility] TCM Discharge Report Patient discharged from [place] on 02/25/2025. Admitted for Dizziness. Contact made with patient: Yes, for Initial Outreach Hi my name is Aspen Silvestre and I am calling from the [facility] on behalf of your Primary Care Provider, Sreekanth Cortez DO. I understand you were recently in the hospital so I am calling to check in with you to ensure you are feeling well now that you are home. May I ask you a few questions related to your hospital stay and well-being? Yes Contact with patient post discharge, spoke to patient. Patient identified by name and . Symptoms: Do you feel your health is BETTER, WORSE, or the SAME since leaving the hospital? Better Action Taken: Patient indicated symptoms are better or same, no action required. Hospital Follow-Up Appointment: I would like to help you schedule a hospital follow-up visit with your Primary Care Provider (PCP). This is a great way for you to connect with your provider to ensure you have safely transitioned home. If you are agreeable, I will provide you with the Appointment Center phone number to speak with a mold making plastics sheets supervisor who can assist you with that appointment. This will give you an opportunity to ask any questions or address any concerns you may have with your Primary Care Provider. [Inform the patient that if they have any questions or concerns prior to that appointment, to call their PCP's office right away.] Action Taken: Patient had a follow-up appointment with their PCP. Aspen Silvestre February 28, 2025 1:00 PM [facility] 02-28-2025 Miscellaneous Notes Transitional Care Management (TCM) [facility] Monitoring Program Provider Action / FYI: N/a SUMMARY: Outreach type: INITIAL OUTREACH Discharge Network Status: In-Network Discharge Source of Patient: [facility] TCM Discharge Report Patient discharged from [place] on 02/25/2025. Admitted for Dizziness. Contact made with patient: Yes, for Initial Outreach Hi my name is Apsen Pateldo and I am calling from the [facility] on behalf of your Primary Care Provider, Sreekanth Cortez DO. I understand you were recently in the hospital so I am calling to check in with you to ensure you are feeling well now that you are home. May I ask you a few questions related to your hospital stay and well-being? Yes Contact with patient post discharge, spoke to patient. Patient identified by name and . Symptoms: Do you feel your health is BETTER, WORSE, or the SAME since leaving the hospital? Better Action Taken: Patient indicated symptoms are better or same, no action required. Hospital Follow-Up Appointment: I would like to help you schedule a hospital follow-up visit with your Primary Care Provider (PCP). This is a great way for you to connect with your provider to ensure you have safely transitioned home. If you are agreeable, I will provide you with the Appointment Center phone number to speak with a mold making plastics sheets supervisor who can assist you with that appointment. This will give you an opportunity to ask any questions or address any concerns you may have with your Primary Care Provider. [Inform the patient that if they have any questions or concerns prior to that appointment, to call their PCP's office right away.] Action Taken: Patient had a follow-up appointment with their PCP. Aspen Silvestre February 28, 2025 1:00 PM documented in this encounter [facility] 02-26-2025 Instructions Margoth Chavez APRN.SATISH - 02/26/2025 9:42 AM EDT Stop your furosemide (lasix the water pill) Stop the carvedilol You may take a dose of lasix daily NEEDED for swelling Start the sodium chloride 1 tablet twice daily x ONE WEEK Start the amlodipine daily Start the catapress patch, change once weekly Continue to log your blood pressure and heart rate (take twice a day and bring log in with you) Return in 2 weeks, get lab drawn day before your next visit documented in this encounter [facility] 02-26-2025 History of Presen t illness Narrative This is a 84 year old female who presents today with: Follow up ER visit 02/22 [facility] (new order to increase losartan to twice daily which is what she is already on) [facility] 02/24-02/25 (new order to increase carvedilol to 25mg bid) Both for labile blood pressures and dizziness secondary to hypertensive crisis CT and MRI unremarkable. Evaluated by neurology with recommendations to optimize blood pressure control. Lab work really unremarkable besides Na+ levels which last one at hospital was 135 but she was getting IV fluids throughout the weekend PT/OT/ST all recommended home with self care HISTORY OF PRESENT ILLNESS: -Casandra has been dealing with labile blood pressures, symptomatic with dizziness and brain fog, lethargy, mild headaches -they increased her carvedilol at [place] over the weekend but she didn't take that dose this morning, stating she felt like it made her throat feel funny and was coughing. She took the 12.5mg and a prn hydralazine this morning -hospital told her there isn't much they can do on their end besides immediately bring BP down and to follow up with PCP -daughter is present, she says when her sodium levels are off it makes everything off for her mom Last 14 BP Last 14 Encounter BP Readings: Date: BP: 02/26/2025 170/80 02/24/2025 168/82 02/19/2025 170/80 02/05/2025 180/80 12/25/2024 199/87[ANTONIETA BP average[ 08/08/2024 140/80 04/28/2024 154/80[bp antonieta average[ 03/23/2024 152/90 02/14/2024 160/90 11/24/2023 176/80 11/06/2023 124/76 10/27/2023 146/88 10/07/2023 138/64 09/14/2023 158/78 PAST MEDICAL HISTORY: PAST MEDICAL HISTORY Diagnosis Date Acid reflux Hiatal hernia Hypertension Hypothyroid Palpitation PAST SURGICAL HISTORY Procedure Laterality Date CARPAL TUNNEL 2000 bilateral COLONOSCOPY FLX DX W/COLLJ SPEC WHEN PFRMD 12/05/2013 Colonoscopy done in [facility] FLX W/REMOVAL LESION BY HOT BX FORCEPS 02/19/[address] Catarino Salas LAPAROSCOPIC DUODENAL BIOPSY 02/13/2020 Catarino Salas MD; duodenal biopsy, gastric antrum biopsy, irregular GE junction bopsy, proximal gastric body soft tissue prominence biopsy all performed ALLERGIES Gluten, Latex, and Milk Containing Products (Dairy) MEDICATIONS Current Outpatient Medications Medication Sig carvedilol (COREG) 25 mg tablet Take 25 mg by mouth two times a day with meals. hydrALAZINE (APRESOLINE) 25 mg tablet Take 1 [...] No Drug use: No REVIEW OF SYSTEMS See HPI EXAM: There were no vitals taken for this visit. PHYSICAL EXAM: General Appearance: Well appearing, alert, in no acute distress, fatigued Lungs: Lungs clear to auscultation. No wheezing, rhonchi, rales.. Heart: RRR without murmur, gallop, or rubs. No ectopy. Neurologic: Gait normal. Reflexes normal and symmetric. Sensation grossly intact. Hand grasps equal, tongue midline, smile equal. ASSESSMENT/PLAN: 1. Hyponatremia - ICD9: 276.1, ICD10: E87.1 (primary diagnosis) - SODIUM CHLORIDE 1,000 MG SOLUBLE TABLET x 7 days - BASIC METABOLIC PANEL in 2 weeks prior to follow up -change lasix to PRN only 2. Hypertension, essential - ICD9: 401.9, ICD10: I10 - Uncontrolled - Factors affecting control: hyponatremia, side effects meds - Recommend home blood pressure monitoring, to bring results to next visit including HR - FUROSEMIDE 20 MG TABLET prn only - CLONIDINE 0.1 MG/24 HR WEEKLY TRANSDERMAL PATCH -stop carvedilol due to high interactions with catapres -start norvasc 5mg daily Discussed treatment plan and patient voices understanding. Patient's questions answered appropriately. Medications and potential side effects were discussed and patient voices understanding. Return to the office as scheduled or as needed for worsening/no improvement. Margoth Chavez APRN.MATHS TUTOR Recording using Our Security Team software for draft documentation of the visit was discussed with the patient/authorized ict sales representative; all questions welcomed and answered. Patient/authorized ict sales representative agreed to proceed documented in this encounter [facility] 02-26-2025 Note HNO ID: [id number] Author: MARGOTH CHAVEZ APRN.SATISH Service: ? Author Type: Nurse Practitioner Type: Progress Notes Filed: 02/26/2025 10:18 Note Text: This is a 84 year old female who presents today with: Follow up ER visit 02/22 [facility] (new order to increase losartan to twice daily which is what she is already on) [facility] 02/24-02/25 (new order to increase carvedilol to 25mg bid) Both for labile blood pressures and dizziness secondary to hypertensive crisis CT and MRI unremarkable. Evaluated by neurology with recommendations to optimize blood pressure control. Lab work really unremarkable besides Na+ levels which last one at hospital was 135 but she was getting IV fluids throughout the weekend PT/OT/ST all recommended home with self care HISTORY OF PRESENT ILLNESS: -Casandra has been dealing with labile blood pressures, symptomatic with dizziness and brain fog, lethargy, mild headaches -they increased her carvedilol at [place] over the weekend but she didn't take that dose this morning, stating she felt like it made her throat feel funny and was coughing. She took the 12.5mg and a prn hydralazine this morning -hospital told her there isn't much they can do on their end besides immediately bring BP down and to follow up with PCP -daughter is present, she says when her sodium levels are off it makes everything off for her mom Last 14 BP Last 14 Encounter BP Readings: Date: BP: 02/26/2025 170/80 02/24/2025 168/82 02/19/2025 170/80 02/05/2025 180/80 12/25/2024 199/87[ANTONIETA BP average[ 08/08/2024 140/80 04/28/2024 154/80[bp antonieta average[ 03/23/2024 152/90 02/14/2024 160/90 11/24/2023 176/80 11/06/2023 124/76 10/27/2023 146/88 10/07/2023 138/64 09/14/2023 158/78 PAST MEDICAL HISTORY: PAST MEDICAL HISTORY Diagnosis Date Acid reflux Hiatal hernia Hypertension Hypothyroid Palpitation PAST SURGICAL HISTORY Procedure Laterality Date CARPAL TUNNEL 2001 bilateral COLONOSCOPY FLX DX W/COLLJ SPEC WHEN PFRMD 12/05/2013 Colonoscopy done in [facility] FLX W/REMOVAL LESION BY HOT BX FORCEPS 02/19/[address] Catarino Salas LAPAROSCOPIC DUODENAL BIOPSY 02/13/2020 Catarino Salas MD; duodenal biopsy, gastric antrum biopsy, irregular GE junction bopsy, proximal gastric body soft tissue prominence biopsy all performed ALLERGIES Gluten, Latex, and Milk Containing Products (Dairy) MEDICATIONS Current Outpatient Medications Medication Sig carvedilol (COREG) 25 mg tablet Take 25 mg by mouth two times a day with meals. hydrALAZINE (APRESOLINE) 25 mg tablet Take 1 [...] No Drug use: No REVIEW OF SYSTEMS See HPI EXAM: There were no vitals taken for this visit. PHYSICAL EXAM: General Appearance: Well appearing, alert, in no acute distress, fatigued Lungs: Lungs clear to auscultation. No wheezing, rhonchi, rales.. Heart: RRR without murmur, gallop, or rubs. No ectopy. Neurologic: Gait normal. Reflexes normal and symmetric. Sensation grossly intact. Hand grasps equal, tongue midline, smile equal. ASSESSMENT/PLAN: 1. Hyponatremia - ICD9: 276.1, ICD10: E87.1 (primary diagnosis) - SODIUM CHLORIDE 1,000 MG SOLUBLE TABLET x 7 days - BASIC METABOLIC PANEL in 2 weeks prior to follow up -change lasix to PRN only 2. Hypertension, essential - ICD9: 401.9, ICD10: I10 - Uncontrolled - Factors affecting control: hyponatremia, side effects meds - Recommend home blood pressure monitoring, to bring results to next visit including HR - FUROSEMIDE 20 MG TABLET prn only - CLONIDINE 0.1 MG/24 HR WEEKLY TRANSDERMAL PATCH -stop carvedilol due to high interactions with catapres -start norvasc 5mg daily Discussed treatment plan and patient voices understanding. Patient's questions answered appropriately. Medications and potential side effects were discussed and patient voices understanding. Return to the office as scheduled or as needed for worsening/no improvement. Margoth Chavez APRN.MATHS TUTOR Recording using ambient AI software for draft documentation of the visi (more content not included)... [facility] 02-25-2025 Note HNO ID: [id number] Author: MAYELIN RENNER LSW Service: Care Management Author Type: Vacuum Evaporation Operator Type: Care Mgt Progress Note Filed: 02/25/2025 15:50 Note Text: CARE MANAGEMENT DISCHARGE NOTE SERVICE DATE: February 25, 2025 SERVICE TIME: 3:49 PM Admission Date: 02/24/2025 LOS: 0 days Discharge Arrangement Services Arranged Provider Name: NA Phone: NA Caregiver Assessment Caregiver is ready, willing and able to meet the patient's needs as recommended by the inter-professional team: No Caregiver needed Transportation Arrangements Transportation Arrangements: Car Date of Trip: 02/25/25 Time of Trip: 1630 Destination: Home Handoff Communication: Handoff to: Primary Care Physician Primary Care Physician Name/Phone: Dr. Cortez Additional Information: CM notified regarding pt's d/c today, home. Pt confirmed her daughter will be transporting her home. CM will follow, as needed. SIGNATURE: SHAKIRA Day, FERMIN PATIENT NAME: Casandra Henry DATE: February 25, 2025 TIME: 3:49 PM [facility] 02-25-2025 Note HNO ID: [id number] Author: MAYELIN RENNER LSW Service: Care Management Author Type: Vacuum Evaporation Operator Type: Care Mgt Initial Assessment Filed: 02/25/2025 15:48 Note Text: CARE MANAGEMENT: ASSESSMENT AND DISCHARGE PLAN SERVICE DATE: February 25, 2025 SERVICE TIME: 3:47 PM PCP: Sreekanth Cortez, /reviewed Primary Contact: Extended Emergency Contact Information Primary Emergency Contact: Jigar Henry Address: [address] [place] [address] OF [employer] Relation: Spouse Admission Status: Observation Insurance Provider: [employer] MEDICARE HMO Discharge Planning requested by: Per Department Practice Potential Transition Plans Home Advance Directives Current Advance Directive: Health Care Power of Executive Search Consultant, Living Will In Chart: No Ophthalmic Dispenser Attempted to Assist with AD Completion: Yes Action: Education Provided Current Living Arrangements and Support Lives with: Spouse/significant other Type of Residence: Private Residence (House) Does the patient have to climb stairs at home?: No Support: Spouse/significant other, Children How do you manage to accomplish the following: Independent: Ambulation, Medication Management, Bathe/Shower, Dress, Meals/Meal Prep, Going to the bathroom Current Services/Equipment Current Post-Acute Service(s): None Discharge Planning Patient Goal(s): General wellness [place] of Choice Explained: Are you interested in bedside delivery of your medications? No Discharge Planning Participant(s): Patient Patient/Family Comments: d/c home Caregiver Assessment: Caregiver is ready, willing and able to meet the patient's needs as recommended by the inter-professional team: No Caregiver needed Transport at Discharge: Transportation Arrangements: Car Date of Trip: 02/25/25 Time of Trip: 1630 Destination: Home Needs Prior to Discharge: Needs Prior to Discharge: To Be Determined Post-Acute Discharge Plan: CM reviewed EMR. Diagnosis include: history of hypertension, hypothyroidism, anemia, hyperlipidemia, CKD, GERD, dizziness, history of SVT, history of hemorrhoids. Pt admitted due to Hypertension. Lives with spouse. [place] in ADL's. No services or equipment used. Daughter transporting pt home on d/c. CM will follow. SIGNATURE: SHAKIRA Day, ACM PATIENT NAME: Casandra Henry DATE: February 25, 2025 TIME: 3:47 PM [facility] 02-22-2025 Discharge summary [facility] 02-22-2025 Radiology Diagnostic study note [facility] Imaging Services [address] [place], [place] [id number] Brain/Head without Contrast MR#: [id number] Acct: [id number] Name: CASANDRA HENRY Rep #: [id number] : [id number] F [id number] From: Astrid Mendoza MD PCP: Dr. Sreekanth Cortez, Status: RE G ER Study:Brain/Head without Contrast Date of Exa m: 02/22/25 Exam# [id number] Ordering Dr: Devaughn Hermosillo DO EXAM: NONCONTRAST CT SCAN OF THE HEAD CLINICAL HISTORY: Headache, hypertension COMPARISON: June 29, 2023 TECHNIQUE: Serial axial series through the head were obtained without contrast. 2-D coronaland sagittal reformats were then obtained. FINDINGS: Brain: There is no acute large territorial infarct, intracranial hemorrhage, midline shift or mass effect. There are atherosclerotic vascular calcifications involving the bilateral carotid siphons. There is low-density in the deep white matter in the right and left consistent with chronic ischemic change, similar to the prior. The sella and pineal gland regions appear unremarkable. There is no evidence of cerebellar tonsillar herniation. A punctate calcification is noted in the left insular region, and right occipital lobe, unchanged. Ventricles: There is no acute hydrocephalus. Basilar cisterns are patent. Paranasal sinuses: Well-aerated Mastoid air cells: Well-aerated. Calvarium: The bony calvarium is intact. Orbits: The bilateral globes are symmetric, without retrobulbar compressive masslesion or hemorrhage. CT/Brain/Head without Contrast IMPRESSION: There is low-density in the deep white matter in the right and left consistent with chronic ischemic change, similar to the prior. No acute intracranial pathology. Reading Location: [facility] CC: Dr. Devaughn Farmer DO; Dr. Sreekanth Cortez DO ~ Project Analyst: Signed [facility] 02-22-2025 Radiology Diagnostic study note [facility] Imaging Services [address], [place] [id number] Chest PA and Lateral MR#: [id number] Acct: [id number] Name: CASANDRA HENRY Rep #: [id number] : [id number] F [id number] From: Astrid Mendoza MD PCP: Dr. Sreekanth Cortez DO Status: RE G ER Study:Chest PA and Lateral Date of Exam: 02/22/25 Exam# [id number] Ordering Dr: Devaughn Hermosillo DO PROCEDURE: CHEST PA AND LATERAL 02/22/2025 REASON FOR EXAM: HTN TECHNIQUE: CHEST PA AND LATERAL COMPARISON: None FINDINGS: Heart size and mediastinal configuration are within normal limits. There is no focal infiltrate or consolidation. There is no pneumothorax or effusion. Aortic calcifications are visible. There is no acutebony abnormality. RAD/Chest PA and Lateral IMPRESSION: No acute process is identified in the chest. Reading Location: [facility] CC: Dr. Devaughn Farmer, DO; Dr. Sreekanth Cortez, DO ~ Project Analyst: Signed [facility] 02-19-2025 Instructions Margoth Chavez APRN.MATHS TUTOR - 02/19/2025 1:08 PM EDT Stop at labs and get labs drawn Continue logging blood pressure and take hydralazine as needed Follow with cardiology documented in this encounter [facility] 02-19-2025 Note HNO ID: [id number] Author: MARGOTH CHAVEZ APRN.SATISH Service: ? Author Type: Nurse Practitioner [...] SPEC WHEN PFRMD 12/05/2013 Colonoscopy done in [facility] FLX W/REMOVAL LESION BY HOT [...] auscultation. No wheezing, (more content not included)... [facility] 02-19-2025 History of Present illness Narrative This [...] SPEC WHEN PFRMD 12/05/2013 Colonoscopy done in [place] COLSC FLX W/REMOVAL LESION BY HOT BX [...] Making Level: 4 - Moderate Recording using Our Security Team software for draft documentation of the visit was discussed with the patient/authorized ict sales representative; all questions welcomed and answered. Patient/authorized ict sales representative agreed to proceed documented in this encounter [facility] 02-05-2025 Note HNO ID: [id number] Author: SREEKANTH CORTEZ, DO Service: ? Author [...] Monitor serum sodium levels regularly. Recording using Our Security Team software for draft documentation of the visit was discussed with the patient/authorized ict sales representative; all questions welcomed and answered. Patient/authorized ict sales representative agreed to proceed [facility] 02-05-2025 History of Present illness Narrative Subjective [...] Monitor serum sodium levels regularly. Recording using Our Security Team software for draft documentation of the visit was discussed with the patient/authorized ict sales representative; all questions welcomed and answered. Patient/authorized ict sales representative agreed to proceed documented in this encounter [facility] 02-05-2025 Instructions Sreekanth Cortez DO - 02/05/2025 9:41 AM EDT STOP the metoprolol START on the Coreg 12.5 mg twice a day for BLOOD PRESSURE instead of the metoprolol OKAY to use the Hydralazine 25 mg medication as needed for BLOOD PRESSURE >140/90 documented in this encounter [facility] 12-25-2024 Instructions Maribeth Griffiths APRN.SATISH - 12/25/2024 1:52 PM EDT I have changed Metoprolol to 75 mg twice a day- you will need to take a 25 mg tablet along with a 50 mg tablet to equal 75 mg documented in this encounter [facility] 12-25-2024 Note HNO ID: [id number] Author: MARIBETH GRIFFITHS APRN.SATISH Service: ? Author [...] Medical Decision Making Level: 4 - Moderate [facility] 12-25-2024 History of Present illness Narrative 12/25/2024 [...] 1-dose 75+ series) Never done Covid-19 Vaccine( - season) due on 04/23/2024 Advance Directive Discussion [...] 4 - Moderate documented in this encounter [facility] 12-25-2024 Telephone encounter Note Pt called in [...] in am and pm Chyna Ramirez RN [facility] 12-25-2024 Miscellaneous Notes Pt called in and [...] Chyna Ramirez RN documented in this encounter [facility] 11-28-2024 Telephone encounter Note Pt notified of provider's message. Pt voiced understanding concerning medication. Farnaz Mays LPN [facility] 11-28-2024 Miscellaneous Notes Pt notified of provider's message. Pt voiced understanding concerning medication. Farnaz Mays LPN Her TSH and t4 being slightly off may contribute but not fully cause her BLOOD PRESSURE concern Sreekanth Cortez, DO The following approved medication requests have [...] Cortez would like. documented in this encounter [facility] 11-28-2024 Telephone encounter Note Her TSH and [...] a day. Authorizing Provider: SREEKANTH CORTEZ DO [facility] 11-28-2024 Telephone encounter Note Pt called and [...] Ramirez RN November 28, 2024 4:27 PM [facility] 11-28-2024 Telephone encounter Note Yes, this is still higher BLOOD PRESSURE than I would like Please apologize since I was out of office last week Option would be to increase her metoprolol to 50 mg in AM and 50 mg in PM If willing to do this, please load rx for me to send in Sreekanth Cortez DO [facility] 11-21-2024 Telephone encounter Note Pt returned the call and notified of results and Sergei Renner's information and instructions. [facility] 11-21-2024 Miscellaneous Notes Pt returned the call [...] anything there. No other concerns. Sergei Renner APRN.CNP documented in this encounter [facility] 11-21-2024 Telephone encounter Note Pt calling in [...] higher than what Dr. Cortez would like. [facility] 11-21-2024 Telephone encounter Note Left message to return call Silvana Rousseau MA [facility] 11-21-2024 Telephone encounter Note Please let her know I received her lab results. Her TSH thyroid level is a little bit low, but this is actually a good range where Dr. Cortez likes it to run, so need to change anything there. No other concerns. Sergei Renner APRN.MATHS TUTOR [facility] Work Phone: 11-09-2024 Telephone encounter [...] 1 tablet by mouth every afternoon. Laura Ocampo November 09, 2024 8:13 AM [facility] 11-09-2024 Miscellaneous Notes Prescription Refill [...] 1 tablet by mouth every afternoon. Laura Ocampo November 09, 2024 8:13 AM documented in this encounter [facility] 10-11-2024 Telephone encounter Note Prescription Refill Information [...] once daily. Take on empty stomach Antonina Kate October 11, 2024 8:39 AM [facility] 10-11-2024 Miscellaneous Notes Prescription Refill Information The [...] once daily. Take on empty stomach Antonina Kate October 11, 2024 8:39 AM documented in this encounter [facility] 08-08-2024 Note HNO ID: [id number] Author: SREEKANTH CORTEZ, DO Service: ? Author [...] SPEC WHEN PFRMD 12/05/2013 Colonoscopy done in [facility] FLX W/REMOVAL LESION BY HOT [...] symptoms. Discussed r (more content not included)... [facility] 08-08-2024 History of Present illness Narrative CC: [...] SPEC WHEN PFRMD 12/05/2013 Colonoscopy done in [facility] FLX W/REMOVAL LESION BY HOT [...] with the plan. Sreekanth Cortez DO [address] [place] [address] documented in this encounter [facility] 07-13-2024 Telephone encounter Note Patient notified of provider's instructions and that prescription sent to pharmacy. Patient verbalizes understanding. Roxanne Felix RN [facility] 07-13-2024 Miscellaneous Notes Patient notified of provider's instructions and that prescription sent to pharmacy. Patient verbalizes understanding. Roxanne Felix RN Synthroid, JUDITH, sent. Recheck thyroid labs in about 6 weeks. The following approved medication requests have been transmitted electronically. Requested Prescriptions Signed Prescriptions Disp Refills SYNTHROID 100 mcg tablet 30 tablet 2 Sig: Take 1 tablet by mouth once daily. Take on empty stomach Authorizing Provider: SERGEI RENNER APRN.CNP Patient notified of results and provider's instructions. Patient verbalizes understanding. Patient states that she would be willing to try the brand name of levothyroxine 100 mcg. Patient uses [facility] as pharmacy. Roxanne Felix RN Her TSH level has improved but is still too high. The levothyroxine 88mcg is not enough. Would she be willing to try the 100mcg again if we order it to be dispensed as the name brand rather generic? Sometimes the reactions are from fillers that are in the generics. Sergei Renner APRN.CNP documented in this encounter [facility] 07-13-2024 Telephone encounter Note SynthJUDITH joseph, sent. Recheck thyroid labs in about 6 weeks. The following approved medication requests have been transmitted electronically. Requested Prescriptions Signed Prescriptions Disp Refills SYNTHROID 100 mcg tablet 30 tablet 2 Sig: Take 1 tablet by mouth once daily. Take on empty stomach Authorizing Provider: SERGEI RENNER APRN.CNP [facility] 07-12-2024 Telephone encounter Note Patient notified of results and provider's instructions. Patient verbalizes understanding. Patient states that she would be willing to try the brand name of levothyroxine 100 mcg. Patient uses [facility] as pharmacy. Roxanne Felix RN [facility] 07-12-2024 Telephone encounter Note Her TSH level has improved but is still too high. The levothyroxine 88mcg is not enough. Would she be willing to try the 100mcg again if we order it to be dispensed as the name brand rather generic? Sometimes the reactions are from fillers that are in the generics. Sergei Renner APRN.SATISH [facility] 06-06-2024 Telephone encounter Note Noted, thank you. Sergei Renner APRN.CNP [facility] 06-06-2024 Miscellaneous Notes Noted, thank you. Sergei Renner APRN.MATHS TUTOR Patient phoned to say she has levothyroxine [...] then re-check labs. documented in this encounter [facility] 06-06-2024 Telephone encounter Note Patient phoned to [...] for 4 more weeks then re-check labs. [facility] 05-04-2024 Telephone encounter Note Nurse Pearson notified of provider message. She will relay info to Dr. Ray and contact office with provider response. Silvana Rousseau MA [facility] 05-04-2024 Miscellaneous Notes Nurse Pearson notified of provider message. She will relay info to Dr. Ray and contact office with provider response. Silvana Rousseau MA Nephrology office will contact our office back and ask to speak with triage nurse for provider message. Please see RS note below. Silvana Rousseau MA Attempted to contact office and speak with RUBY/Nurse but line rings busy. Will need to try again. Silvana Rousseau MA Please contact Dr. Stoney Ray's office, this is her varnish finisher, outside of [facility]. Patient's blood pressure at home as well [...] regimen or add anything? Thanks Sergei Renner APRN.CNP documented in this encounter [facility] 05-02-2024 Telephone encounter Note Patient returned call and given provider's message below and patient verbalized understanding. Alfredo Lisa RN [facility] 05-02-2024 Miscellaneous Notes Patient returned call and [...] SERGEI RENNER APRN.CNP documented in this encounter [facility] 05-02-2024 Telephone encounter Note Message left for pt to call back for results. Ai Jorgensen MA [facility] 05-02-2024 Telephone encounter Note Please let her [...] empty stomach Authorizing Provider: SERGEI RENNER APRN.CNP [facility] 05-02-2024 Telephone encounter Note Nephrology office will contact our office back and ask to speak with triage nurse for provider message. Please see RS note below. Silvana Rousseau MA [facility] 04-28-2024 Telephone encounter Note Attempted to contact office and speak with RUBY/Nurse but line rings busy. Will need to try again. Silvana Rousseau MA [facility] 04-28-2024 Telephone encounter Note Please contact Dr. Stoney Ray's office, this is her varnish finisher, outside of [facility]. Patient's blood pressure at home as well [...] regimen or add anything? Thanks Sergei Renner APRN.MATHS TUTOR [facility] 04-28-2024 Note HNO ID: [id number] Author: SERGEI RENNER APRN.MATHS TUTOR Service: ? Author Type: Nurse Practitioner Type: [...] Sees Dr. Stoney Ray, he comes to [facility] once a week on Wednesdays. Past medical history, appointments, medications, allergies reviewed. Previous Medical History PAST MEDICAL HISTORY No date: Acid reflux No date: Hiatal hernia No date: Hypertension No date: Hypothyroid No date: Palpitation Previous Surgical History PAST SURGICAL HISTORY 2000: CARPAL TUNNEL Comment: bilateral 12/05/2013: COLONOSCOPY FLX DX W/COLLJ SPEC WHEN PFRMD Comment: Colonoscopy done in [place] 02/19/2020: COLSC FLX W/REMOVAL LESION BY HOT [...] - THYROID STIMU (more content not included)... [facility] 04-28-2024 History of Present illness Narrative Chief [...] Sees Dr. Stoney Ray, he comes to [facility] once a week on Wednesdays. Past medical history, appointments, medications, allergies reviewed. Previous Medical History PAST MEDICAL HISTORY No date: Acid reflux No date: Hiatal hernia No date: Hypertension No date: Hypothyroid No date: Palpitation Previous Surgical History PAST SURGICAL HISTORY 2000: CARPAL TUNNEL Comment: bilateral 12/05/2013: COLONOSCOPY FLX DX W/COLLJ SPEC WHEN PFRMD Comment: Colonoscopy done in [place] 02/19/2020: COLSC FLX W/REMOVAL LESION BY HOT [...] IRON AND TIBC - FERRITIN Sergei Renner APRN.MATHS TUTOR documented in this encounter [facility] 04-28-2024 Evaluation note Diagnosis Hypertension, essential- Primary Unspecified essential hypertension Stage 3a chronic kidney disease (HCC) Hypothyroidism, unspecified type Other iron deficiency anemia documented in this encounter [facility]08-01-2024 History of Present illness Narrative* Delilah Cabrera DO - 03/23/2024 8:20 AM EDT [facility]ICINE CONSULT NOTE Casandra Henry [id number] PRIMARY SERVICE: Internal Medicine CONSULTING SERVICE: Cardiovascular Medicine: DATE OF ADMISSION: (Not on file) [facility] 08/11/2023 HISTORY OF PRESENT ILLNESS Casandra Henry [...] SPEC WHEN PFRMD Comment: Colonoscopy done in [place] 02/19/2020: COLSC FLX W/REMOVAL LESION BY HOT [...] me if there are any questions. Delilah Cabrera DO, FACC, FCCP, FACOI [facility] History of Present illness Narrative* Sreekanth Cortez [...] SPEC WHEN PFRMD 12/05/2013 Colonoscopy done in [facility] FLX W/REMOVAL LESION BY HOT [...] plan. See patient instructions. Sreekanth Cortez DO [address] [place] [address] [facility] Evaluation note* Diagnosis Essential hypertension- Primary Unspecified essential hypertension Stage 3a chronic kidney disease (HCC) Hypothyroidism, unspecified type Other iron deficiency anemia Vitamin D deficiency Unspecified vitamin D deficiency documented in this encounter [facility]06-20-[facility]24 Telephone encounter Note* Telephone Encounter - Aby Vega MA - 02/10/2024 9:21 AM EDT Call to pt. After reviewing chart, pt has already completed labs and they are in process. FRANNY on stating that no call back is needed. Aby Vega MA [facility]06-20-2024 Miscellaneous Notes* Telephone Encounter - Aby Vega [...] 02-14-24. Heather Shetty LPN [facility] Evaluation note* Diagnosis Stage 3a chronic kidney disease (HCC)- Primary Essential hypertension Unspecified essential hypertension Hypothyroidism, unspecified type Other iron deficiency anemia Vitamin D deficiency Unspecified vitamin D deficiency Fatigue, unspecified type documented in this encounter [facility]06-19-2024 Telephone encounter Note* Telephone Encounter - Sreekanth Cortez DO - 02/09/2024 10:41 PM EDT Orders placed for blood work to be drawn Please notify her Sreekanth Cortez DO [facility]06-19-2024 Telephone encounter Note* Telephone Encounter - Heather Shetty LPN - 02/09/2024 11:30 AM EDT Pt calling for lab orders. Please advise pt when orders are in place. Not certain what labs you wanted pt to have. Please review and advise pt back. Pt has apt 02-14-24. Heather Shetty LPN [facility]04-03-2024 Instructions* Patient Instructions* Gabi More APRN.CNP - 11/24/2023 9:04 AM EDT I would [...] Follow up in [address] Cabrera [facility] History of Present illness Narrative* Gabi More APRN.CNP - 11/24/2023 8:47 AM EDT Images from the original note were not included. [facility] [place] [facility] Department of Cardiovascular Medicine SECTION [...] Follow up in [address] Cabrera I spent a total of 24 minutes on the date of the service which included preparing to see the patient, [id number] patient care, completing clinical documentation, performing a [...] prior to the follow up. Gabi More APRN.[facility] Cardiology Nurse Practitioner Section of [facility] [place] Dept of Cardiovascular Medicine [facility] [place] [address] Office Office November 24, 2023 8:47 AM This note was partially generated using Woldme voice recognition system and may contain errors [...] already performed. Other chronic findings, as above. Project Analyst: DELIA Transcribe Date/Time: Aug 11 2023 7:28P [...] and ROS obtained by others. Gabi More APRN.MATHS TUTOR CURRENT MEDICATIONS: Current Outpatient Medications Medication Sig [...] medications for this visit. [facility] Miscellaneous Notes* Telephone Encounter - Marti Stahl [...] Thank you. Marti Wright. [facility] Miscellaneous Notes* Telephone Encounter - Karen Victoria LPN - 11/07/2023 8:18 AM EDT on patient notified.Karen Victoria LPN * Telephone Encounter - Justice Gaines PA - 11/07/2023 8:10 AM EDT Negative for COVID flu RSV [facility] History of Present illness Narrative* Ruel Fleming [...] PATIENT PRESENTS WITH AN IMPLANTABLE OR ATTACHED SENIOR LANDSCAPE ARCHITECT: No RADIOLOGY DEPARTMENT: General X-ray: Exam(s) Completed: Chest X-Ray PERIPHERAL IV DATA: Not applicable SIGNED BY: RT Wendy(R) November 06, 2023 8:36 AM [facility] in [facility] History of Present illness Narrative* Justice Gaines PA - 11/06/2023 8:26 AM EDT This note was created using ClaimKitter. Subjective Casandra Henry is a 83 year [...] SPEC WHEN PFRMD 12/05/2013 Colonoscopy done in [facility] FLX W/REMOVAL LESION BY HOT [...] ER evaluation. CALVIN King [facility] History of Present illness Narrative* Sreekanth Cortez DO - 10/27/2023 10:43 PM EST CC: [...] metoprolol as prescribed. Has been seen by Admission Liaison. PAST MEDICAL HISTORY Diagnosis Date Acid reflux Hiatal hernia Hypertension Hypothyroid Palpitation PAST SURGICAL HISTORY Procedure Laterality Date CARPAL TUNNEL 2000 bilateral COLONOSCOPY FLX DX W/COLLJ SPEC WHEN PFRMD 12/05/2013 Colonoscopy done in [facility] FLX W/REMOVAL LESION BY HOT [...] a day at this time, f/u with Admission Liaison 4. Hypothyroidism, unspecified type - ICD9: 244.9, [...] plan. See patient instructions. Sreekanth Cortez DO [address] [place] [address] [facility] Miscellaneous Notes* Telephone Encounter - Polo Stahldi - 10/11/2023 3:27 PM EST Patient has [...] Thank you. Marti Wright. documented in this encounterP[facility]02-[facility]24 Miscellaneous Notes* Telephone Encounter - Silvana Rousseau - 10/08/2023 8:58 AM EST Pt informed, verbalized understanding. Silvana Rousseau * Telephone Encounter - Donita Estes APRN.CNP - 10/08/2023 7:07 AM EST Please call patient and let her know that lab work results look great! Thyroid labs are all within normal limits. Sodium level remains stable despite discontinuing supplement. No concerns. Thank you, Donita Estes APRN.SATISH [facility] History of Present illness Narrative* Donita Estes APRN.CNP - 10/07/2023 7:40 AM EST Chief Complaint Patient presents with: Hypertension HPI Casandra Henry is a 83 year old female who presents here today for Above Complaints. Casandra is an established patient of Dr. Cortez, and myself. Concerns today.. HTN --- She [...] on sodium supplement. Hypokalemia improved with this. Admission Liaison thought this supplement may be increasing BP [...] SPEC WHEN PFRMD 12/05/2013 Colonoscopy done in [facility] FLX W/REMOVAL LESION BY HOT [...] Vaccine(1 - Tdap) due on 05/17/2024 Covid-19 Vaccine(2022- season) due on 05/17/2024 RSV Vaccine(1 - [...] Patient agreeable to treatment plan. Donita Gonzales APRN.MATHS TUTOR [address] [place] [address] [facility]01[facility] Telephone encounter Note * Telephone Encounter - Karen Soriano - 09/11/2023 8:12 AM EST .RX [facility] Work Phone: 1(200) 754-268001-20-2024 Miscellaneous Notes* Telephone Encounter - Karen Soriano - 09/11/2023 8:12 AM EST .RX documented in this encounterP[facility]12-14-2023 Miscellaneous Notes* Telephone Encounter - Aby Vega Ma - 08/05/2023 1:35 PM EST Call to pt and notified her of results and recommendation below from Provider. Verbalized understanding. Aby Vega Ma * Telephone Encounter - Donita Estes APRN.CNP - 08/05/2023 11:35 AM EST PLease call patient and let her know that lab work shows that iron level is improved and back within normal limits. Sodium level is worsening. Potassium level is also elevated. I would like patient to increase fluid intake to 60-80 oz per day and repeat CMP in 1 week. Thank you, Donita Estes APRN.MATHS TUTOR documented in this encounterP[facility]12-[facility]-2023 Miscellaneous Notes* Telephone Encounter - Silvana Rousseau [...] growth at all. Thank you, Donita Estes APRN.SATISH documented in [facility] encounterP[facility]12-04-2023 Miscellaneous Notes* Telephone Encounter - Donita Estes APRN.CNP - 07/26/2023 4:25 PM EST Order signed. Donita Estes APRN.MATHS TUTOR * Telephone Encounter - Silvana Rousseau - [...] you, Donita Estes APRN.SATISH documented in this encounterP[facility]12-04-2023 Miscellaneous Notes* Telephone Encounter - Chyna Ramirez [...] 1 week ago. Thank you, Donita Estes APRN.SATISH * Telephone Encounter - Chyna Ramirez RN [...] if/when provider adds labs. documented in this encounterP[facility]12-01-2023 Miscellaneous Notes* Telephone Encounter - Casandra Hairston LPN - 07/23/2023 10:38 AM EST Spoke with pt gave information provided. Pt voices understanding. * Telephone Encounter - Donita Estes APRN.SATISH - 07/23/2023 10:02 AM EST Thyroid levels [...] any other suggestions. Thank you, Donita Estes APRN.MATHS TUTOR * Telephone Encounter - Anita Guevara RN [...] the constipation? Pt uses [facility] in [place]. documented in this encounterPomerene Hospital11-29-2023 Nurse Note* Casandra Hairston LPN - 07/21/2023 8:19 AM EST EVENT MONITOR DISPOSABLE PATCH INSTRUCTIONS Patient Name: Casandra Henry Clinic Number: [id number] Skin prepped and cleansed with alcohol Patch secured to prepped area Monitor Activated Serial #: [id number] Patient Instructed: Prescribed order timeframe Bathing guidelines Usage of event button and diary documentation Return of monitor at the end of prescribed order Call with problems [phone] or [phone]. [phone] Patient expresses a good understanding of instructions Casandra Hairston LPN documented in this encounterPomerene Hospital11-29-2023 History of Present illness Narrative* Donita Estes APRN.MATHS TUTOR - 07/21/2023 6:57 AM EST Chief Complaint [...] Recent ER visit on 06/29. [address] recording monitor showed: Rare PVCs, no runs. Average heart [...] SPEC WHEN PFRMD 12/05/2013 Colonoscopy done in [facility] FLX W/REMOVAL LESION BY HOT [...] Tdap) due on 05/17/2024 Covid-19 Vaccine(4 - 2022- season) due on 05/17/2024 Diabetes Screening due [...] Patient agreeable to treatment plan. Donita Gonzales APRN.MATHS TUTOR [address] [place] [address] documented in this encounterPomerene Hospital11-22-2023 History of Present illness Narrative* Sreekanth Cortez, DO - 07/14/2023 7:11 AM EST CC: Casandra Henry is a 83 year old female who presents to the office for follow up HPI: At appt March 2023 She was recently seen in the EMERGENCY DEPARTMENT due to elevated BLOOD PRESSURE in the 160s/90s and not feeling well. She had work up at [facility] in the EMERGENCY DEPARTMENT including cardiac and [...] a lot of water. Symptoms strated in February- coming and going- feels nervous and exhausted [...] SPEC WHEN PFRMD 12/05/2013 Colonoscopy done in [facility] FLX W/REMOVAL LESION BY HOT [...] plan. See patient instructions. Sreekanth Cortez DO [address] [place] [address] documented in this encounterPomerene Hospital11-21-2023 Miscellaneous Notes* Telephone Encounter - Gisselle Bush [...] advise, Roxanne Felix RN documented in this encounterPomerene Hospital11-07-2023 Discharge summary Author Josselyn Adhikari [facility] June 29, 2023 3:14pm Note Date/Time June 29, 2023 1 1:03am [facility] Medical Records Department [address] [place] [id number] Emergency Department Summary 06/29/23 MR#: [id number] Acct: [id number] Name: CASANDRA HENRY Rep #:[id number] : 1940 83 From: Josselyn Adhikari DO [...] history of hyponatremia. Prior similar symptoms: [facility] Medical History (Updated 06/29/23 @ 14:43 by [...] (Auto) 67.9 Lymph % (Auto) 18.0 L [place] % (Auto) 9.5 Eos % (Auto) 3.6 [...] Clear Urine pH 7.0 7.0 Ur Specific [place] 1.005 1.005 Urine Protein Negative Negative Urine [...] 12:29 EST Reading Location ID and State: [address] [place] [address] , Service support , EKG Initial EKG: Attestation: I personally [...] your Primary Care Provider. Call [facility] ([phone]) or report to the closest Emergency Room. Call 911 if necessary. 06/29/23 1514 <Electronically signed by Josselyn Adhikari DO> Cosigner Signature (if applicable): CC: Dr. Sreekanth Cortez DO ~ Signed [facility] Work Phone: 1(100) 359-575811-07-2023 History of Present illness Narrative* Yuan Syed APRN.CNP - 06/29/2023 10:39 AM EST Nontoxic appearing [...] urgent care. states will transport patient to [facility]. verbalized understand agrees with plan of care. Yuan Syed APRN.SATISH documented in this encounterPomerene Hospital11-01-2023 Miscellaneous Notes* Telephone Encounter - Gisselle Bush LPN - 06/23/2023 12:15 PM EDT Form faxed. * Telephone Encounter - Donita Estes APRN.CNP - 06/23/2023 10:42 AM EDT Form filled out and in my outbox. Please fax. Thank you, Donita Estes APRN.SATISH * Telephone Encounter - Sreekanth Cortez DO - 06/22/2023 1:47 PM EDT To Donita to review Sreekanth Cortez DO * Telephone Encounter - Ai Jorgensen Ma - 06/22/2023 12:48 PM EDT Form received and given to Dr. Cortez's nurse. Ai Jorgensen Ma * Telephone Encounter - Masood Wall RN - 06/22/2023 10:37 AM EDT [facility]- reports patient is having 4 extractions this coming . Yanet is faxing a clearance form to pcp today, because patient informed them she had some low lab results. Patientsaw Donita on 06-16-23. Asking if pcp can clear patient for extractions, fill out/sign form and fax back to them at fax # [phone]. documented in this encounterPomerene Hospital10-26-2023 Miscellaneous Notes* Telephone Encounter - Anita Cain [...] in 2 weeks. Thank you, Donita Estes APRN.MATHS TUTOR documented in this encounterPomerene Hospital10-25-2023 History of Present illness Narrative* Donita Estes APRN.CNP - 06/16/2023 8:00 AM EDT Chief Complaint Patient presents with: labs showed dehydration and sodium chloridelevels: Review lab results HPI Casandra Henry is a 83 year old female who presents here today for Above Complaints.. Casandra is an established patient of Dr. Cortez, DO and myself. Concerns today... Review lab [...] SPEC WHEN PFRMD 12/05/2013 Colonoscopy done in [facility] FLX W/REMOVAL LESION BY HOT [...] Patient agreeable to treatment plan. Donita Gonzales APRN.MATHS TUTOR [address] [place] [address] documented in this encounterPomerene Hospital10-19-2023 Miscellaneous Notes* Telephone Encounter - Silvana Rousseau [...] once daily for about a week. Was [id number] one day per week prior. Silvana Rousseau MA * Telephone Encounter - Sreekanth Cortze DO - 06/09/2023 10:38 PM EDT Please call and clarify what dose of thyroid medication she is currently taking? Her TSH is still too low and free t4 is still too high. Her dose needs to be decreased. Sreekanth Cortez DO documented in this encounterPomerene Hospital09-25-2023 History of Present illness Narrative* Donita Estes APRN.CNP - 05/17/2023 3:00 PM EDT Chief Complaint [...] SPEC WHEN PFRMD 12/05/2013 Colonoscopy done in [facility] FLX W/REMOVAL LESION BY HOT [...] Patient agreeable to treatment plan. Donita Gonzales APRN.MATHS TUTOR [address] [place] [address] documented in this encounterPomerene Hospital08-09-2023 History of Present illness Narrative* Sreekanth Cortez, DO - 03/31/2023 8:39 PM EDT CC: Casandra Henry is a 83 year old female who presents to the office for follow up HPI: She was recently seen in the EMERGENCY DEPARTMENT due to elevated BLOOD PRESSURE in the 160s/90s and not feeling well. She had work up at [facility] in the EMERGENCY DEPARTMENT including cardiac and [...] SPEC WHEN PFRMD 12/05/2013 Colonoscopy done in [facility] FLX W/REMOVAL LESION BY HOT [...] plan. See patient instructions. Sreekanth Cortez DO [address] [place] [address] documented in this encounterPomerene Hospital08-09-2023 Instructions* Patient Instructions* Sreekanth Cortez DO - 03/31/2023 6:18 PM EDT Blood pressure goal 100-130s / 60-80s Pulse rate goal 60-80s documented in this encounterPomerene Hospital07-24-2023 Miscellaneous Notes* Telephone Encounter - Emily Cates MA - 03/15/2023 10:04 AM EDT Prescription was already sent to the pharmacy this date. Emily Cates MA documented in this encounterPomerene Hospital07-24-2023 History of Present illness Narrative* CortezSreekanth, DO - 03/15/2023 7:54 AM EDT CC: [...] SPEC WHEN PFRMD 12/05/2013 Colonoscopy done in [facility] FLX W/REMOVAL LESION BY HOT [...] agreed with the plan. Sreekanth Cortez DO [address] [place] [address] documented in this encounterPomerene Hospital07-20-2023 Miscellaneous Notes* Telephone Encounter - Lorrie Feliciano [...] you. Lorrie Feliciano LPN documented in this encounterPomerene Hospital07-19-2023 History of Present illness Narrative* Marilyn Gutierrez [...] SPEC WHEN PFRMD 12/05/2013 Colonoscopy done in [facility] FLX W/REMOVAL LESION BY HOT [...] attention. Marilyn Gutierrez PA-C documented in this encounterPomerene Hospital07-19-2023 Miscellaneous Notes* Telephone Encounter - Roxanne Felix [...] is not normal. Protocols used: Dizziness - [id number], Blood Pressure - [id number]-[id number] documented in this encounterPomerene Hospital07-18-2023 Miscellaneous Notes* Telephone Encounter - Gisselle Bush [...] 25 mg tablet [Pharmacy Med Name: METOPROLOL [id number] MG TAB] 180 tablet 1 Sig: take 1 tablet by mouth twice a day Date of last office visit in primary care: 08/31/22 Last 2 Encounter Wt Readings: Date: Wt: 12/25/2022 64.9 kg (143 lb) 08/31/2022 65.3 kg (144 lb) Previous labs/tests for medication: Not applicable Please advise. Thank you. Gisselle Bush LPN documented in this encounterPomerene Hospital05-11-2023 Miscellaneous Notes* Telephone Encounter - Esthela Levi [...] improve Sreekanth Cortez DO documented in this encounterPomerene Hospital05-05-2023 History of Present illness Narrative* Adamaris Chavez RT(R) - 12/25/2022 2:40 PM EDT Radiology [...] 25, 2022 2:33 PM documented in this encounterPomerene Hospital05-05-2023 History of Present illness Narrative* Sreekanth Cortez DO - 12/25/2022 1:55 PM EDT CC: Casanrda Henry is a 82 year old female [...] SPEC WHEN PFRMD 12/05/2013 Colonoscopy done in [facility] FLX W/REMOVAL LESION BY HOT [...] plan. See patient instructions. Sreekanth Cortez DO [address] [place] [address] documented in this [facility]01-23-2023 Miscellaneous Notes* Telephone Encounter - Anita Cain [...] advise. Anita Cain LPN documented in this [facility]01-[facility] Miscellaneous Notes* Telephone Encounter - Lorrie Feliciano LPN - 09/10/2022 10:30 AM EST Patient has been identified by name and date of : Yes Patient phones for refill(s): Requested Prescriptions Pending Prescriptions Disp Refills metoprolol tartrate, short acting, (LOPRESSOR) 25 mg tablet [Pharmacy Med Name: METOPROLOL [id number] MG TAB] 180 tablet 1 Sig: take 1 tablet by mouth twice a day Date of last office visit in primary care: 08/31/2022 Please advise. Thank you. Lorrie Feliciano LPN documented in this [facility] History of Present illness Narrative* Sreekanth Cortez DO - 09/01/2022 7:27 AM EST CC: [...] SPEC WHEN PFRMD 12/05/2013 Colonoscopy done in [facility] FLX W/REMOVAL LESION BY HOT [...] with the plan. Sreekanth Cortez DO [address] [place] [address] documented in this encounterPomerene Hospital12-19-2022 History of Present illness Narrative* Sergei Renner APRN.MATHS TUTOR - 08/10/2022 12:25 PM EST AMBULATORY TELEPHONE VISIT Casandra Elaine has consented to this telephone encounter. Persons [...] Delsym. May consider Tessalon Perles if necessary. Laid. Discussed red flag s/s with patient. Total Time Spent: 6 minutes Sergei Renner APRN.SATISH Nirmatrelvir/Ritonavir (Paxlovid) Eligibility and Patient Discussion [facility] Formulary Restriction Criteria: Adult outpatients 18 years [...] to proceeding with nirmatrelvir/ritonavir treatment. Sergei Renner APRN.CNP August 10, 2022 12:33 PM documented in this encounterPomerene Hospital12-19-2022 Miscellaneous Notes* Telephone Encounter - Karolina Bee [...] afternoon. Karolina Bee RN documented in this encounterPomerene Hospital11-16-2022 Instructions* Patient Instructions* Margoth Chavez - 07/08/2022 8:21 AM EST Start omeprazole 20mg daily , 30 minutes prior to breakfast. Watch spicy foods, try not to eat at least an hour prior to laying down documented in this encounterPomerene Hospital11-16-2022 History of Present illness Narrative* Sergei Renner [...] SPEC WHEN PFRMD 12/05/2013 Colonoscopy done in [facility] FLX W/REMOVAL LESION BY HOT [...] VAS LAB - ECG COMPLETE Sergei Renner APRN.MATHS TUTOR documented in this encounterPomerene Hospital08-15-2022 History of Present illness Narrative* Yann French [...] pain. Yann French MD documented in this encounterPomerene Hospital07-07-2022 Miscellaneous Notes* Telephone Encounter - Silvana Freedman [...] you, Donita Gonzales APRN.SATISH documented in this encounterPomerene Hospital07-06-2022 History of Present illness Narrative* Donita Gonzales [...] Stage 3a Follows with kidney specialist through [facility]. Was going every 3 months but is [...] SPEC WHEN PFRMD 12/05/2013 Colonoscopy done in [facility] FLX W/REMOVAL LESION BY HOT [...] 585.3, ICD10: N18.31 Continue to follow with varnish finisher at routine intervals. - COMP METABOLIC PANEL [...] agreeable to treatment plan. Donita Gonzales APRN.CNP [address] [place] [address] documented in this encounterPomerene HospitalDischar summary Author Devaughn [facility]Mer[facility] Note Date/Time February 22, 2025 7:49a m [facility] Medical Records Department [address] [place] [address] Emergency Department Summary 02/22/25 MR#: [id number] Acct: [id number] Name: CASANDRA HENRY Rep #:[id number] : 1940 84 From: Devaughn velez DO PCP: Dr. Sreekanth Cortez, Status:RE G ER Location: ED HPI History of Present Illness Chief Complaint: Hypertension Narrative Narrative: Chief complaint and HPI: Hypertension. 84-year-old female with past medical history of HTN, hypothyroidism presents for evaluation of HTN. Patient states for the past month she has been having uncontrolled hypertension. She followed up with her primary care physician on 02/05 in which her medications were changed. She states that she was on losartan 50 mg twice daily as well as metoprolol 50 mg twice daily. States that she was taken off of the metoprolol and instead placed on carvedilol 12.5 mg BID. She was also written for hydralazine 25 mg 3 times daily as needed for blood pressure greater than 140/90. Patient states that she has been monitoring her blood pressure closely and it ranges frequently. Patient states last night her SBP was in the 200s. She she took hydralazine with some improvement however this morning it increasedtoday which is why she presents. She states when her blood pressure elevates she feels unwell. Symptoms are intermittent and include headache, blurred vision, tingling, nausea, shortness of breath. Patient currently at this time is only endorsing mild headache and nausea. She denies any fever, chills, URI symptoms, chest pain, abdominal pain. Review of systems: See HPI Medications: As listed on the chart Allergies: As listed on the chart PFSH: Per chart Vital signs: As listed on the chart. Reviewed. Physical exam: Gen: A&O x3, NAD Head: Normocephalic, atraumatic Eyes: No sclera icterus, conjunctiva clear ENT: Moist mucous membranes Neck: Trachea midline, No JVD CV: RRR, no murmurs, no peripheral edema Resp: Lungs CTA BL, no w/r/c GI: Abd soft, non-distended, non-tender, no r/r/g Musc: Full ROM, no deformity Skin: Warm, dry Neuro: Alert, oriented, grossly intact, sensation intact Psych: Cooperative, appropriate mood and affect [facility] Medical History (Updated 02/22/25 @ 07:[address] Devaughn Farmer, DO) Hypertension Home Medications ?Medication ?Instructions ?Recorded ?Last Taken ?Type levothyroxine 100 mcg tablet 100 mcg PO BREAKFAST 12 0/16 1 Day Ago History ~10/02/17 losartan 50 mg tablet 50 mg PO BID BP CTRL 8 1 Day Ago History ~10/02/17 carvedilol 12.5 mg tablet 12.5 mg PO BID blood pressur e 02/22/25 Unknown History furosemide 20 mg tablet 20 mg PO DAILY 02/22/25 Unkn own History hydralazine 25 mg tablet 25 mg PO TID PRN PRN htn 11/14 Unknown History Allergy/AdvReac Type Severity Reaction Status Date / Time gluten AdvReac Nausea/Vom/ Verified 02/22/25 06:07 Diarrhea Surgical History (Updated 03/20/23 @ 17:[address] Frederick Carrasco, DO) History of carpal tunnel surgery Social History Smoking Status: Never smoker EXAM Physical Exam Const Vital Signs: 02/22/25 06:07 02/22/25 06:07 02/22/25 06:15 Temperature 98 F Temperature Source Oral Pulse Rate 77 72 Respiratory Rate 16 16 Respiratory Effort Short of Breath Blood Pressure 194/98 H 201/85 H Blood Pressure Mean 130 118 Pulse Ox 98 97 Oxygen Delivery Method Room Air Room Air 02/22/25 06:30 02/22/25 06:45 02/22/25 07:07 Temperature Temperature Source Pulse Rate 75 75 100 Respiratory Rate 13 18 16 Respiratory Effort Blood Pressure 195/90 H 200/60 H 150/70 H Blood Pressure Mean 116 101 96 Pulse Ox 98 98 97 Oxygen Delivery Method Room Air Room Air MDM MDM MDM Narrative Medical decision making narrative: 84-year-old female with past medical history of HTN, hypothyroidism presents forevaluation of HTN. Patient states for the past month she has been having uncontrolled hypertension. She followed up with her primary care physician on 02/05 in which her medications were changed. She states that she was on biitiuuz54 mg twice daily as well as metoprolol 50 mg twice daily. States that she was taken off of the metoprolol and instead placed on carvedilol 12.5 mg BID. She was also written for hydralazine 25 mg 3 times daily as needed for blood pressure greater than 140/90. Patient states since this change her blood pressure has been fluctuating frequently. She brought values for me to review. The lowest SBP in the 130s, the highest in the 200s. On chart review, patient has an appointment on 04/04/[address] Lewis. On presentation, patient in no acute distress however her blood pressure is 194/98. Differential diagnosis includes but is not limited to hypertension urgency, hypertensive emergency, intracranial bleed/abnormality. IV hydralazine ordered for blood pressure as well as Zofran. Cardiac workup ordered including CT head. EKG and chest x-ray reviewed. CT of the head shows chronic ischemic changes, similar to prior. No acute intracranial abnormality. CBC without leukocytosis or anemia. Platelets unremarkable. BMP unremarkable without electrolyte abnormality, LISY. Troponin 12. BNP unremarkable. On reevaluation, patient's blood pressure has improved with the hydralazine. Her blood pressure is now 150/70. Given that patient hasbeen following up with her primary care physician who is managing her hypertension, we will reach out to discuss changes in medications. Primary carephysician is not available as there is not an on-call provider at this time and their office is not open. Plan will be to increase patient's carvedilol to 25 mg twice daily. She was educated that she needs to continue her losartan as well as hydralazine as needed. She is to monitor her blood pressure. She needsto return back to the ED if symptoms change or worsen. She was told to call [facility]'s office later this morning to let them know of the medication change and if they have any further recommendations or change in management. She confirmed understanding the plan. Patient stable to discharge home. She was able to ambulate in the ED with her walker. EKG: Interpreted by me/EM physician: EKG shows normal sinus rhythm with nonspecific ST changes. No ST elevation. Heart rate 90. Diagnostic: Interpreted by me/EM physician: Chest x-ray without pneumonia, effusion, cardiomegaly, pneumothorax Impression: 1. Hypertension urgency 2. History of hypertension Lab Data Labs: Laboratory Results - last 24 hr 02/22/25 06:18 WBC 8.6 RBC 4.14 L Hgb 12.6 Hct 36.6 L MCV 88.4 MCH 30.4 MCHC 34.4 RDW Std Deviation 39.2 RDW Coeff of Selam 12.1 Plt Count 285 MPV 9.4 Immature Gran % (Auto) 0.500 Neut % (Auto) 58.7 Lymph % (Auto) 21.6 [place] % (Auto) 11.4 H Eos % (Auto) 7.3 H Baso % (Auto) 0.5 Absolute Neuts (auto) 5.1 Absolute Lymphs (auto) 1.86 Nucleated RBC % 0 Sodium 134 Potassium 4.0 Chloride 100 Carbon Dioxide 22.8 Anion Gap 12 BUN 8 Creatinine 0.78 Estim Creat Clear Calc 46.32 L Est GFR (MDRD) Non-Af 76 BUN/Creatinine Ratio 9.8 L Glucose 114 H Calcium 9.0 Troponin T High Sens 12 NT pro BNP II 210 Radiography Diagnostic Testing: Clinical Impression(s) from Imaging Studies Chest X-Ray 02/22/25 06:38 IMPRESSION: No acute process is identified in the chest. Reading Location: [facility] 02/22/25 06:55 IMPRESSION: There is low-density in the deep white matter in the right and left consistent with chronic ischemic change, similar to the prior. No acute intracranial pathology. Reading [facility] Discharge Plan Triage Chief Complaint: Hypertension ED Provider: Devaughn Farmer Dx/Rx/DC Orders Clinical Impression: Hypertensive urgency Instructions: Hypertension Dc, ED Hypertension, Established Prescriptions: No Action levothyroxine 100 MCG tablet 100 mcg PO BREAKFAST losartan 50 MG tablet 50 mg PO BID hydralazine 25 mg tablet 25 mg PO TID PRN PRN (Reason: htn) carvedilol 12.5 mg tablet 12.5 mg PO BID furosemide 20 mg tablet 20 mg PO DAILY Primary Care Provider: Sreekanth Cortez Referrals: Sreekanth Cortez DO [Primary Care Provider] - 3-5 Days Activity Restrictions/Additional Instructions: Plan is to increase your losartan to 50 mg twice daily. Continue your carvedilol and hydralazine. Monitor your blood pressure closely at home. Call your primary care's office this morning and let them know of the medication change. Return back to the ED if symptoms change or worsen. Print Language: Gabonese Disposition Disposition: Home, Self Care What to do if you have Problems For any increased pain, shortness of breath, bleeding, nausea or vomiting, chestpain, or any unexpected problems, contact your Primary Care Provider. Call [facility] ([phone]) or report to the closest Emergency Room. Call 911 if necessary. 02/22/25 0749 <Electronically signed by Devaughn Farmer DO> Cosigner Signature (if applicable): CC: Dr. Sreekanth Cortez DO ~ Signed [facility] Work Phone: Evaluation note* Diagnosis Essential hypertension- Primary Unspecified essential hypertension Bilateral leg edema Edema Hypothyroidism, unspecified type Vitamin D deficiency Unspecified vitamin D deficiency Stage 3a chronic kidney disease (HCC) Dyslipidemia Other and unspecified hyperlipidemia Other iron deficiency anemia Screening for diabetes mellitus documented [facility]* Diagnosis Bilateral leg edema Edema Hypothyroidism, unspecified type documented in this encounter [facility]* Diagnosis Acute left flank pain- Primary Abdominal pain, unspecified site Urinary frequency documented in this encounter [facility] note* Diagnosis Essential hypertension- Primary Unspecified essential hypertension Gastroesophageal reflux disease, unspecified whether esophagitis present documented in this encounter [facility] note* Diagnosis COVID- Primary documented in this encounter [facility] note* Diagnosis Essential hypertension- Primary Unspecified essential hypertension Gastroesophageal reflux disease, unspecified whether esophagitis present Bilateral leg edema Edema Hypothyroidism, unspecified type Vitamin D deficiency Unspecified vitamin D deficiency Stage 3a chronic kidney disease (HCC) Dyslipidemia Other and unspecified hyperlipidemia Other iron deficiency anemia documented in this encounter [facility] note* Diagnosis Essential hypertension Unspecified essential hypertension documented in this encounter [facility] note* Diagnosis Bilateral leg edema Edema documented in this encounter [facility] note* Diagnosis Lumbar radiculopathy- Primary Thoracic or lumbosacral neuritis or radiculitis, unspecified Chronic midline low back pain with bilateral sciatica documented in this encounter [facility] note* Diagnosis Essential hypertension Unspecified essential hypertension documented in this encounter [facility] note* Diagnosis Essential hypertension- Primary Unspecified essential hypertension documented in this encounter [facility] note* Diagnosis Bilateral leg edema Edema documented in this encounter [facility] note* Diagnosis Essential hypertension- Primary Unspecified essential hypertension Hypothyroidism, unspecified type Bilateral leg edema Edema Lumbar radiculopathy Thoracic or lumbosacral neuritis or radiculitis, unspecified Other iron deficiency anemia Dyslipidemia Other and unspecified hyperlipidemia documented in this encounter [facility] note* Diagnosis Hypothyroidism, unspecified type documented in this encounter [facility] noteNo assessment information availableWSt. Mary's Medical Center Work Phone: Evaluation note* Diagnosis Essential hypertension- Primary Unspecified essential hypertension Dysuria Hypothyroidism, unspecified type documented in this encounter [facility] note* Diagnosis Dizziness- Primary Dizziness and giddiness Hypothyroidism, unspecified type Essential hypertension Unspecified essential hypertension documented in this encounter [facility] note* Diagnosis Low sodium levels- Primary Hyposmolality and/or hyponatremia Hypothyroidism, unspecified type Other iron deficiency anemia Dizziness Dizziness and giddiness documented in this encounter [facility] note* Diagnosis Procedure not carried out- Primary Procedure not carried out for other reasons documented in this encounter [facility] note* Diagnosis Hyponatremia- Primary Hyposmolality and/or hyponatremia Anemia, unspecified type Hypothyroidism, unspecified type Dizziness Dizziness and giddiness Essential hypertension Unspecified essential hypertension Fatigue, unspecified type Shakiness Abnormal involuntary movements documented in this encounter [facility] note* Diagnosis Low sodium levels- Primary Hyposmolality and/or hyponatremia documented in this encounter [facility] note* Diagnosis Dizziness- Primary Dizziness and giddiness Hypothyroidism, unspecified type Essential hypertension Unspecified essential hypertension CHECO (generalized anxiety disorder) Generalized anxiety disorder Hyponatremia Hyposmolality and/or hyponatremia documented in this encounter [facility] note* Diagnosis Leukocytosis, unspecified type- Primary documented in this encounter [facility] note* Diagnosis Dizziness- Primary Dizziness and giddiness documented in this encounter [facility] note* Diagnosis Leukocytosis, unspecified type- Primary documented in this encounter [facility] note* Diagnosis Hyponatremia- Primary Hyposmolality and/or hyponatremia documented in this encounter [facility] note* Diagnosis Leukocytosis, unspecified type- Primary documented in this encounter [facility] note* Diagnosis Essential hypertension- Primary Unspecified essential hypertension Hyponatremia Hyposmolality and/or hyponatremia Hypothyroidism, unspecified type Other iron deficiency anemia Dyslipidemia Other and unspecified hyperlipidemia documented in this encounter [facility] note* Diagnosis CHECO (generalized anxiety disorder) Generalized anxiety disorder documented in this encounter [facility] note* Diagnosis Essential hypertension- Primary Unspecified essential hypertension Stage 3a chronic kidney disease (HCC) Hyponatremia Hyposmolality and/or hyponatremia Hypothyroidism, unspecified type documented in this encounter [facility] note* Diagnosis Acute cough- Primary URI, acute Acute upper respiratory infections of unspecified site documented in this encounter [facility] note* Diagnosis Hyponatremia- Primary Hyposmolality and/or hyponatremia Hypertension, essential Unspecified essential hypertension Palpitation Palpitations Hypothyroidism, unspecified type Iatrogenic hyperthyroidism 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 or storm documented in this encounter [facility] note* Diagnosis SVT (supraventricular tachycardia) (HCC)- Primary Other specified cardiac dysrhythmias Palpitations Essential hypertension Unspecified essential hypertension Hyperlipidemia, mixed Mixed hyperlipidemia Hypertension, essential Unspecified essential hypertension Palpitation Palpitations [facility] Diagnosis Hypothyroidism, unspecified type- Primary [facility] Diagnosis Acute cough [facility]* Diagnosis Lumbar radiculopathy Thoracic or lumbosacral neuritis or radiculitis, unspecified Chronic midline low back pain with bilateral sciatica [facility]* Diagnosis Hypothyroidism, unspecified type- Primary documented in this encounter [facility] note* Diagnosis Hypothyroidism, unspecified type- Primary Hypertension, essential Unspecified essential hypertension Stage 3a chronic kidney disease (HCC) Other iron deficiency anemia Dyslipidemia Other and unspecified hyperlipidemia Vitamin D deficiency Unspecified vitamin D deficiency Fatigue, unspecified type Essential hypertension Unspecified essential hypertension documented in this encounter [facility] note* Diagnosis Hypothyroidism, unspecified type documented in this encounter [facility]* Diagnosis Hypertension, essential Unspecified essential hypertension documented in this [facility]* Diagnosis Hypertension, essential- Primary Unspecified essential hypertension documented in this [facility]* Diagnosis Hypertension, essential- Primary Unspecified essential hypertension Stage 3a chronic kidney disease (HCC) Hypothyroidism, unspecified type Fatigue, unspecified type Dyslipidemia Other and unspecified hyperlipidemia Hyponatremia Hyposmolality and/or hyponatremia documented in this [facility]* Diagnosis Labile blood pressure- Primary Elevated blood pressure reading without diagnosis of hypertension Hypertension, essential Unspecified essential hypertension Hyponatremia Hyposmolality and/or hyponatremia Fatigue, unspecified type documented in this [facility]* Diagnosis Hyponatremia- Primary Hyposmolality and/or hyponatremia Hypertension, essential Unspecified essential hypertension documented in this encounter [facility] note* Diagnosis Hypertension, essential- Primary Unspecified essential hypertension Hyponatremia Hyposmolality and/or hyponatremia Screening for depression Encounter for screening examination for other mental health and behavioral disorders documented in this encounter [facility] Discharge instructionsAdditional Instructions Plan is to increase your carvedilol to 25 mg twice daily. Continue your losartan. Hydralazine as needed. Monitor your blood pressure closely at home. Call your primary care's office this morning and let them know of the medication change. Return back to the ED if symptoms change or worsen.[facility] Work Phone: Reason for referral (narrative)* Outpatient Procedure (Routine) - Pending Review Specialty Diagnoses / Procedures Referred By Elsy shi Referred To Contact [facility] Diagnoses Gastroesophageal reflux disease, unspecified whether esophagitis present Essential hypertension Procedures ECG COMPLETE ECG ROUTINE ECG W/LEAST 12 LDS W/I&R Sergei Renner APRN.MATHS TUTOR [address] [place] [address] [facility] [address] [place] [address] Referral ID Status Reason Start Date Expiration Date Visits Requested Visits Authorized [id number] Pending Review Auto-Generat ed Referral 2 07/08/2023 1 1 * Outpatient Procedure (Routine) - Pending Review Specialty Diagnoses / Procedures Referred By Elsy shi Referred To Contact [facility] Diagnoses Gastroesophageal reflux disease, unspecified whether esophagitis present Essential hypertension Procedures US CAROTID ARTERIES DOE VAS LAB DUPLEX SCAN EXTRACRANIAL ART COMPL BI STUDY Sergei Renner, FERNANDEZ.MATHS TUTOR [address] [place] [address] [facility] [address] [place] [id number] Referral ID Status Reason Start Date Expiration Date Visits Requested Visits Authorized [id number] Pending Review Auto-Generat ed Referral 2 07/08/2023 1 1 * Outpatient Procedure (Routine) - Authorized Specialty Diagnoses / Procedures Referred By Elsy shi Referred To Contact [facility] Diagnoses Gastroesophageal reflux disease, unspecified whether esophagitis present Essential hypertension Procedures ECHO ECHO TTHRC R-T 2D W/WOM-MODE COMPL SPEC&COLR D Sergei Renner APRN.MATHS TUTOR [address] [place] [address] [facility] [address] [place] [address] Referral ID Status Reason Start Date Expiration Date Visits Requested Visits Authorized [id number] Authorized Auto-Generat ed Referral 2 07/08/2023 1 1 [facility] for referral (narrative)* Outpatient Procedure (Routine) - Pending Review Specialty Diagnoses / Procedures Referred By Contac t Referred [facility] Diagnoses Dizziness Procedures US CAROTID ARTERIES DOE VAS LAB DUPLEX SCAN EXTRACRANIAL ART COMPL BI STUDY Donita Estes APRN.CNP [address] [place] [address] [facility] [address] [place] [address] Referral ID Status Reason Start Date Expiration Date Visits Requested Visits Authorized [id number] Pending Review Auto-Generat ed Referral 3 07/20/2024 1 1 [facility] for referral (narrative)* Diagnostic Procedure Only (Routine) - Closed Specialty Diagnoses / Procedures Referred By Contac t Referred To Contact XR IMAGING Diagnoses Lumbar radiculopathy Chronic midline low back pain with bilateral sciatica Procedures XR LUMBAR GENERAL 3V AP/LAT/L5-S1 RADEX SPINE LUMBOSACRAL 2/3 VIEWS Sreekanth Cortez DO [address] [place] [address] [place] [id number] Referral ID Status Reason Start Date Expiration Date V isits Requested Visits Authorized [id number] Closed Auto-Generate d Referral 12/25/2022 01/24/2024 1 1 [facility] for referral (narrative)No reason for referral information availableWSt. Mary's Medical Center Work Phone: Reason for visit Narrative* Diagnostic Procedure Only (Routine) - Closed Specialty Diagnoses / Procedures Referred By Contac t Referred To Contact XR IMAGING Diagnoses Lumbar radiculopathy Chronic midline low back pain with bilateral sciatica Procedures XR LUMBAR GENERAL 3V AP/LAT/L5-S1 RADEX SPINE LUMBOSACRAL 2/3 VIEWS Sreekanth Cortez, DO [address] [place] [address] [place] [id number] Referral ID Status Reason Start Date Expiration Date V isits Requested Visits Authorized [id number] Closed Auto-Generate d Referral 12/25/2022 01/24/2024 1 1 [facility] Summary Purpose Family History No Family History [...] Yes March 20, 2023 5:52pm Power of Executive Search Consultant Yes March 20 5:52pm Name of Medical Power of Executive Search Consultant Don Anuragr, hus band March 20, 2023 5:52pm Advance Directive Response Recorded Date/ Time Name of Medical Power of Executive Search Consultant Don Anuragr, hus band March 20, 2023 4:52pm Name of Medical Power of Executive Search Consultant spouse June 29, 2023 11:08am Advance Directives Yes September 5:49am Living Will Yes June 29 11:08am Power of Executive Search Consultant Yes June 29, 2023 11:08am Advance Directive Response Recorded Date/ Time Do you have a Healthcare Power of Executive Search Consultant? No February 22, 2025 6:07am Advance Directives Yes September 6:49am Date Activated Date Inactivated Comments 02/24/2025 5:38 PM 02/25/2025 7:15 PM Question Answer Comments Full Code Order Discussed With: Patient Reason for Referral Specialty Diagnoses / Procedures Referred By Contac t Referred To Contact [facility] Diagnoses Lumbar radiculopathy Chronic midline low back pain with bilateral sciatica Procedures CONSULT TO PHYSICAL THERAPY PHYSICAL THERAPY EVALUATION HIGH COMPLEX 45 MINS Sreekanth Cortez, DO [address] [place] [address] [facility] [address] [place] [address] Referral ID Status Reason Start Date Expiration Date Visits Requested Visits Authorized [id number] Pending Review Auto-Generat ed Referral 12/25/2022 12/25/2023 1 1 Specialty Diagnoses / Procedures Referred By Contac t Referred To Contact XR IMAGING Diagnoses Lumbar radiculopathy Chronic midline low back pain with bilateral sciatica Procedures XR LUMBAR GENERAL 3V AP/LAT/L5-S1 RADEX SPINE LUMBOSACRAL 2/3 VIEWS Sreekanth Cortez, DO [address] [place] [address] Xr Imaging Referral ID Status Reason Start Date Expiration Date V isits Requested Visits Authorized [id number] Closed Auto-Generate d Referral 12/25/2022 01/24/2024 1 1 Specialty Diagnoses / Procedures Referred By Contac t Referred To Contact Diagnoses Hypothyroidism, unspecified type Sergei Renner, FERNANDEZ.MATHS TUTOR [address] [place] [address] Referral ID Status Reason Start Date Expiration Date V isits Requested Visits Authorized [id number] Authorized 06/13/2024 07/13/2025 1 1 Chief Complaint and Reason for Visit Chief Complaint HYPERTENSION Chief Complaint HYPERTENSION DIZZINESS Chief Complaint Admit Date htn February 22, 2025 6:06a m Additional Source Comments INFORMATION SOURCE (unrecogn ized section and content) DATE CREATED AUTHOR [facility]/16/2018 [facility] DATE CREATED AUTHOR AUTHOR'S ORGANIZ ATION 09/02/2018 [facility] DATE CREATED AUTHOR AUTHOR'S ORGANIZ ATION 03/01/2025 [facility] DATE CREATED AUTHOR AUTHOR'S ORGANIZ ATION 03/02/2025 [facility] DATE CREATED AUTHOR AUTHOR'S ORGANIZ ATION 04/02/2025 [facility] Source Comments (unrecognize d section and content) In the event this informatio n is protected by the Federal Confidentiality of Alcohol and Drug Abuse Patient Records regulations: The Federal rules restrict any use of the information to criminally investigate or prosecute any alcohol or drug abuse patient.[facility] HospitalIn the event this information is protected by the Federal Confidentiality of Alcohol and Drug Abuse Patient Records regulations: The Federal rules restrict any use of the information to criminally investigate or prosecute any alcohol or drug abuse patient.[facility] HospitalIn the event this information is protected by the Federal Confidentiality of Alcohol and Drug Abuse Patient Records regulations: The Federal rules restrict any use of the information to criminally investigate or prosecute any alcohol or drug abuse patient.[facility] HospitalIn the event this information is protected by the Federal Confidentiality of Alcohol and Drug Abuse Patient Records regulations: The Federal rules restrict any use of the information to criminally investigate or prosecute any alcohol or drug abuse patient.[facility] HospitalIn the event this information is protected by the Federal Confidentiality of Alcohol and Drug Abuse Patient Records regulations: The Federal rules restrict any use of the information to criminally investigate or prosecute any alcohol or drug abuse patient.[facility] HospitalIn the event this information is protected by the Federal Confidentiality of Alcohol and Drug Abuse Patient Records regulations: The Federal rules restrict any use of the information to criminally investigate or prosecute any alcohol or drug abuse patient.[facility] HospitalIn the event this information is protected by the Federal Confidentiality of Alcohol and Drug Abuse Patient Records regulations: The Federal rules restrict any use of the information to criminally investigate or prosecute any alcohol or drug abuse patient.[facility] HospitalIn the event this information is protected by the Federal Confidentiality of Alcohol and Drug Abuse Patient Records regulations: The Federal rules restrict any use of the information to criminally investigate or prosecute any alcohol or drug abuse patient.[facility] HospitalIn the event this information is protected by the Federal Confidentiality of Alcohol and Drug Abuse Patient Records regulations: The Federal rules restrict any use of the information to criminally investigate or prosecute any alcohol or drug abuse patient.[facility] HospitalIn the event this information is protected by the Federal Confidentiality of Alcohol and Drug Abuse Patient Records regulations: The Federal rules restrict any use of the information to criminally investigate or prosecute any alcohol or drug abuse patient.[facility] HospitalIn the event this information is protected by the Federal Confidentiality of Alcohol and Drug Abuse Patient Records regulations: The Federal rules restrict any use of the information to criminally investigate or prosecute any alcohol or drug abuse patient.[facility] HospitalIn the event this information is protected by the Federal Confidentiality of Alcohol and Drug Abuse Patient Records regulations: The Federal rules restrict any use of the information to criminally investigate or prosecute any alcohol or drug abuse patient.[facility] HospitalIn the event this information is protected by the Federal Confidentiality of Alcohol and Drug Abuse Patient Records regulations: The Federal rules restrict any use of the information to criminally investigate or prosecute any alcohol or drug abuse patient.[facility] HospitalIn the event this information is protected by the Federal Confidentiality of Alcohol and Drug Abuse Patient Records regulations: The Federal rules restrict any use of the information to criminally investigate or prosecute any alcohol or drug abuse patient.[facility] HospitalIn the event this information is protected by the Federal Confidentiality of Alcohol and Drug Abuse Patient Records regulations: The Federal rules restrict any use of the information to criminally investigate or prosecute any alcohol or drug abuse patient.[facility] HospitalIn the event this information is protected by the Federal Confidentiality of Alcohol and Drug Abuse Patient Records regulations: The Federal rules restrict any use of the information to criminally investigate or prosecute any alcohol or drug abuse patient.[facility] HospitalIn the event this information is protected by the Federal Confidentiality of Alcohol and Drug Abuse Patient Records regulations: The Federal rules restrict any use of the information to criminally investigate or prosecute any alcohol or drug abuse patient.[facility] HospitalIn the event this information is protected by the Federal Confidentiality of Alcohol and Drug Abuse Patient Records regulations: The Federal rules restrict any use of the information to criminally investigate or prosecute any alcohol or drug abuse patient.[facility] HospitalIn the event this information is protected by the Federal Confidentiality of Alcohol and Drug Abuse Patient Records regulations: The Federal rules restrict any use of the information to criminally investigate or prosecute any alcohol or drug abuse patient.[facility] HospitalIn the event this information is protected by the Federal Confidentiality of Alcohol and Drug Abuse Patient Records regulations: The Federal rules restrict any use of the information to criminally investigate or prosecute any alcohol or drug abuse patient.[facility] HospitalIn the event this information is protected by the Federal Confidentiality of Alcohol and Drug Abuse Patient Records regulations: The Federal rules restrict any use of the information to criminally investigate or prosecute any alcohol or drug abuse patient.[facility] HospitalIn the event this information is protected by the Federal Confidentiality of Alcohol and Drug Abuse Patient Records regulations: The Federal rules restrict any use of the information to criminally investigate or prosecute any alcohol or drug abuse patient.[facility] HospitalIn the event this information is protected by the Federal Confidentiality of Alcohol and Drug Abuse Patient Records regulations: The Federal rules restrict any use of the information to criminally investigate or prosecute any alcohol or drug abuse patient.[facility] HospitalIn the event this information is protected by the Federal Confidentiality of Alcohol and Drug Abuse Patient Records regulations: The Federal rules restrict any use of the information to criminally investigate or prosecute any alcohol or drug abuse patient.[facility] HospitalIn the event this information is protected by the Federal Confidentiality of Alcohol and Drug Abuse Patient Records regulations: The Federal rules restrict any use of the information to criminally investigate or prosecute any alcohol or drug abuse patient.[facility] HospitalIn the event this information is protected by the Federal Confidentiality of Alcohol and Drug Abuse Patient Records regulations: The Federal rules restrict any use of the information to criminally investigate or prosecute any alcohol or drug abuse patient.[facility] HospitalIn the event this information is protected by the Federal Confidentiality of Alcohol and Drug Abuse Patient Records regulations: The Federal rules restrict any use of the information to criminally investigate or prosecute any alcohol or drug abuse patient.[facility] HospitalIn the event this information is protected by the Federal Confidentiality of Alcohol and Drug Abuse Patient Records regulations: The Federal rules restrict any use of the information to criminally investigate or prosecute any alcohol or drug abuse patient.[facility] HospitalIn the event this information is protected by the Federal Confidentiality of Alcohol and Drug Abuse Patient Records regulations: The Federal rules restrict any use of the information to criminally investigate or prosecute any alcohol or drug abuse patient.[facility] HospitalIn the event this information is protected by the Federal Confidentiality of Alcohol and Drug Abuse Patient Records regulations: The Federal rules restrict any use of the information to criminally investigate or prosecute any alcohol or drug abuse patient.[facility] HospitalIn the event this information is protected by the Federal Confidentiality of Alcohol and Drug Abuse Patient Records regulations: The Federal rules restrict any use of the information to criminally investigate or prosecute any alcohol or drug abuse patient.[facility] HospitalIn the event this information is protected by the Federal Confidentiality of Alcohol and Drug Abuse Patient Records regulations: The Federal rules restrict any use of the information to criminally investigate or prosecute any alcohol or drug abuse patient.[facility] HospitalIn the event this information is protected by the Federal Confidentiality of Alcohol and Drug Abuse Patient Records regulations: The Federal rules restrict any use of the information to criminally investigate or prosecute any alcohol or drug abuse patient.[facility] HospitalIn the event this information is protected by the Federal Confidentiality of Alcohol and Drug Abuse Patient Records regulations: The Federal rules restrict any use of the information to criminally investigate or prosecute any alcohol or drug abuse patient.[facility] HospitalIn the event this information is protected by the Federal Confidentiality of Alcohol and Drug Abuse Patient Records regulations: The Federal rules restrict any use of the information to criminally investigate or prosecute any alcohol or drug abuse patient.[facility] HospitalIn the event this information is protected by the Federal Confidentiality of Alcohol and Drug Abuse Patient Records regulations: The Federal rules restrict any use of the information to criminally investigate or prosecute any alcohol or drug abuse patient.[facility] HospitalIn the event this information is protected by the Federal Confidentiality of Alcohol and Drug Abuse Patient Records regulations: The Federal rules restrict any use of the information to criminally investigate or prosecute any alcohol or drug abuse patient.[facility] HospitalIn the event this information is protected by the Federal Confidentiality of Alcohol and Drug Abuse Patient Records regulations: The Federal rules restrict any use of the information to criminally investigate or prosecute any alcohol or drug abuse patient.[facility] HospitalIn the event this information is protected by the Federal Confidentiality of Alcohol and Drug Abuse Patient Records regulations: The Federal rules restrict any use of the information to criminally investigate or prosecute any alcohol or drug abuse patient.[facility] HospitalIn the event this information is protected by the Federal Confidentiality of Alcohol and Drug Abuse Patient Records regulations: The Federal rules restrict any use of the information to criminally investigate or prosecute any alcohol or drug abuse patient.[facility] HospitalIn the event this information is protected by the Federal Confidentiality of Alcohol and Drug Abuse Patient Records regulations: The Federal rules restrict any use of the information to criminally investigate or prosecute any alcohol or drug abuse patient.[facility] HospitalIn the event this information is protected by the Federal Confidentiality of Alcohol and Drug Abuse Patient Records regulations: The Federal rules restrict any use of the information to criminally investigate or prosecute any alcohol or drug abuse patient.[facility] HospitalIn the event this information is protected by the Federal Confidentiality of Alcohol and Drug Abuse Patient Records regulations: The Federal rules restrict any use of the information to criminally investigate or prosecute any alcohol or drug abuse patient.[facility] HospitalIn the event this information is protected by the Federal Confidentiality of Alcohol and Drug Abuse Patient Records regulations: The Federal rules restrict any use of the information to criminally investigate or prosecute any alcohol or drug abuse patient.[facility] HospitalIn the event this information is protected by the Federal Confidentiality of Alcohol and Drug Abuse Patient Records regulations: The Federal rules restrict any use of the information to criminally investigate or prosecute any alcohol or drug abuse patient.[facility] HospitalIn the event this information is protected by the Federal Confidentiality of Alcohol and Drug Abuse Patient Records regulations: The Federal rules restrict any use of the information to criminally investigate or prosecute any alcohol or drug abuse patient.[facility] HospitalIn the event this information is protected by the Federal Confidentiality of Alcohol and Drug Abuse Patient Records regulations: The Federal rules restrict any use of the information to criminally investigate or prosecute any alcohol or drug abuse patient.[facility] HospitalIn the event this information is protected by the Federal Confidentiality of Alcohol and Drug Abuse Patient Records regulations: The Federal rules restrict any use of the information to criminally investigate or prosecute any alcohol or drug abuse patient.[facility] HospitalIn the event this information is protected by the Federal Confidentiality of Alcohol and Drug Abuse Patient Records regulations: The Federal rules restrict any use of the information to criminally investigate or prosecute any alcohol or drug abuse patient.[facility] HospitalIn the event this information is protected by the Federal Confidentiality of Alcohol and Drug Abuse Patient Records regulations: The Federal rules restrict any use of the information to criminally investigate or prosecute any alcohol or drug abuse patient.[facility] HospitalIn the event this information is protected by the Federal Confidentiality of Alcohol and Drug Abuse Patient Records regulations: The Federal rules restrict any use of the information to criminally investigate or prosecute any alcohol or drug abuse patient.[facility] HospitalIn the event this information is protected by the Federal Confidentiality of Alcohol and Drug Abuse Patient Records regulations: The Federal rules restrict any use of the information to criminally investigate or prosecute any alcohol or drug abuse patient.[facility] HospitalIn the event this information is protected by the Federal Confidentiality of Alcohol and Drug Abuse Patient Records regulations: The Federal rules restrict any use of the information to criminally investigate or prosecute any alcohol or drug abuse patient.[facility] HospitalIn the event this information is protected by the Federal Confidentiality of Alcohol and Drug Abuse Patient Records regulations: The Federal rules restrict any use of the information to criminally investigate or prosecute any alcohol or drug abuse patient.[facility] HospitalIn the event this information is protected by the Federal Confidentiality of Alcohol and Drug Abuse Patient Records regulations: The Federal rules restrict any use of the information to criminally investigate or prosecute any alcohol or drug abuse patient.[facility] HospitalIn the event this information is protected by the Federal Confidentiality of Alcohol and Drug Abuse Patient Records regulations: The Federal rules restrict any use of the information to criminally investigate or prosecute any alcohol or drug abuse patient.[facility] HospitalIn the event this information is protected by the Federal Confidentiality of Alcohol and Drug Abuse Patient Records regulations: The Federal rules restrict any use of the information to criminally investigate or prosecute any alcohol or drug abuse patient.[facility] HospitalIn the event this information is protected by the Federal Confidentiality of Alcohol and Drug Abuse Patient Records regulations: The Federal rules restrict any use of the information to criminally investigate or prosecute any alcohol or drug abuse patient.[facility] HospitalIn the event this information is protected by the Federal Confidentiality of Alcohol and Drug Abuse Patient Records regulations: The Federal rules restrict any use of the information to criminally investigate or prosecute any alcohol or drug abuse patient.[facility] HospitalIn the event this information is protected by the Federal Confidentiality of Alcohol and Drug Abuse Patient Records regulations: The Federal rules restrict any use of the information to criminally investigate or prosecute any alcohol or drug abuse patient.[facility] HospitalIn the event this information is protected by the Federal Confidentiality of Alcohol and Drug Abuse Patient Records regulations: The Federal rules restrict any use of the information to criminally investigate or prosecute any alcohol or drug abuse patient.[facility] HospitalIn the event this information is protected by the Federal Confidentiality of Alcohol and Drug Abuse Patient Records regulations: The Federal rules restrict any use of the information to criminally investigate or prosecute any alcohol or drug abuse patient.[facility] HospitalIn the event this information is protected by the Federal Confidentiality of Alcohol and Drug Abuse Patient Records regulations: The Federal rules restrict any use of the information to criminally investigate or prosecute any alcohol or drug abuse patient.[facility] HospitalIn the event this information is protected by the Federal Confidentiality of Alcohol and Drug Abuse Patient Records regulations: The Federal rules restrict any use of the information to criminally investigate or prosecute any alcohol or drug abuse patient.[facility] HospitalIn the event this information is protected by the Federal Confidentiality of Alcohol and Drug Abuse Patient Records regulations: The Federal rules restrict any use of the information to criminally investigate or prosecute any alcohol or drug abuse patient.[facility] HospitalIn the event this information is protected by the Federal Confidentiality of Alcohol and Drug Abuse Patient Records regulations: The Federal rules restrict any use of the information to criminally investigate or prosecute any alcohol or drug abuse patient.[facility] HospitalIn the event this information is protected by the Federal Confidentiality of Alcohol and Drug Abuse Patient Records regulations: The Federal rules restrict any use of the information to criminally investigate or prosecute any alcohol or drug abuse patient.[facility] Reason for Visit (unrecogniz ed section and content) Reason Comments Physical Specialty Diagnoses / Procedures Referred By Contac t Referred To Contact Family Practice / FAMILY MEDICINE Diagnoses Physical Procedures OFFICE/OUTPATIENT ESTABLISHED MOD MDM 30-39 MIN 4C EST MD Janet Willoughby Alyson, FERNANDEZ.MATHS TUTOR [address] [place] [address] Referral ID Status Reason Start Date Expiration Date Visits Re quested Visits Authorized [id number] Closed 02/25/2022 08/22/2022 1 1 Reason Comments [...] lab results Reason Comments Clearance Form from [facility] Reason Comments Patient Question Reason Comments [...] Blood Pressure Reason Comments Blood Pressure Check Reason Comments 2 week f/up Was in er twice once it they kept her overnight checked her out Reason Comments Transition Of Care Reason Comments 2 week f/up Reason Comments Patient Question Heart rate Care Teams (unrecognized sec tion and content) Senior Education Specialist Relationship Specialty Start Date End Date Sreekanth Cortez, DO [address] [facility] [place] [address] PCP - General Family Practice 02/28/16 Senior Education Specialist Relationship Specialty Start Date End Date Sreekanth Cortez, DO [address] [facility] [place] [address] PCP - General Family Practice 02/28/16 Senior Education Specialist Relationship Specialty Start Date End Date Sreekanth Cortez, DO [address] [facility] [place] [address] PCP - General Family Practice 02/28/16 Senior Education Specialist Relationship Specialty Start Date End Date Sreekanth Cortez, DO [address] [facility] [place] [address] PCP - General Family Medicine 02/28/16 Senior Education Specialist Relationship Specialty Start Date End Date Sreekanth Cortez, DO [address] [facility] [place] [address] PCP - General Family Medicine 02/28/16 Senior Education Specialist Relationship Specialty Start Date End Date Sreekanth Cortez, DO [address] [place] [address] PCP - General Family Medicine 02/28/16 Senior Education Specialist Relationship Specialty Start Date End Date Sreekanth Cortez DO [address] [place] [address] PCP - General Family Medicine 02/28/16 Senior Education Specialist Relationship Specialty Start Date End Date Sreekanth Cortez DO [address] [place] [address] PCP - General Family Medicine 02/28/16 Senior Education Specialist Relationship Specialty Start Date End Date Sreekanth Cortez DO [address] [place] [address] PCP - General Family Medicine 02/28/16 Senior Education Specialist Relationship Specialty Start Date End Date Sreekanth Cortez DO [address] [place] [address] PCP - General Family Medicine 02/28/16 Senior Education Specialist Relationship Specialty Start Date End Date Sreekanth Cortez DO [address] [place] [address] PCP - General Family Medicine 02/28/16 Senior Education Specialist Relationship Specialty Start Date End Date Sreekanth Cortez DO [address] [place] [address] PCP - General Family Medicine 02/28/16 Senior Education Specialist Relationship Specialty Start Date End Date Sreekanth Cortez DO [address] [place] [address] PCP - General Family Medicine 02/28/16 Senior Education Specialist Relationship Specialty Start Date End Date Sreekanth Cortez DO [address] [facility] [place] [address] PCP - General Family Medicine 02/28/16 Team Status: Active Member Role Status Dates Dr. Sreekanth Cortez , DO Family Provider Active Dr. Sreekanth Cortez , DO Primary Care Provider Active Team Status: Inactive Member Role Status Dates Dr. Sreekanth Cortez , DO Primary Care Provider Active Dr. Frederick Carrasco , DO Emergency Provider Active Senior Education Specialist Relationship Specialty Start Date End Date Sreekanth Cortez DO [address] [facility] [place] [address] PCP - General Family Medicine 02/28/16 Senior Education Specialist Relationship Specialty Start Date End Date Sreekanth Cortez DO [address] [place] [address] PCP - General Family Medicine 02/28/16 Senior Education Specialist Relationship Specialty Start Date End Date Sreekanth Cortez DO [address] [facility] [place] [address] PCP - General Family Medicine 02/28/16 Team Status: Inactive Member Role Status Dates Dr. Sreekanth Cortez , DO Primary Care Provider Active Dr. Frederick Carrasco , DO Attending Provider, Emergency P kaylah Active Team Status: Inactive Member Role Status Dates Dr. Sreekanth Cortez , DO Primary Care Provider Active Dr. Josselyn Adhikari , DO Emergency Provider Active Senior Education Specialist Relationship Specialty Start Date End Date Sreekanth Cortez DO [address] [facility] [place] [address] PCP - General Family Medicine 02/28/16 Senior Education Specialist Relationship Specialty Start Date End Date Sreekanth Cortez DO [address] [facility] [place] [address] PCP - General Family Medicine 02/28/16 Senior Education Specialist Relationship Specialty Start Date End Date Sreekanth Cortez DO [address] [facility] [place] [address] PCP - General Family Medicine 02/28/16 Senior Education Specialist Relationship Specialty Start Date End Date Sreekanth Cortez DO [address] [facility] [place] [address] PCP - General Family Medicine 02/28/16 Senior Education Specialist Relationship Specialty Start Date End Date Sreekanth Cortez, [address] [facility] [place] [address] PCP - General Family Medicine 02/28/16 Senior Education Specialist Relationship Specialty Start Date End Date Sreekanth Cortez DO [address] [facility] [place] [address] PCP - General Family Medicine 02/28/16 Senior Education Specialist Relationship Specialty Start Date End Date Sreekanth Cortez, [address] [facility] [place] [address] PCP - General Family Medicine 02/28/16 Senior Education Specialist Relationship Specialty Start Date End Date Sreekanth Cortez, [address] [facility] [place] [address] PCP - General Family Medicine 02/28/16 Senior Education Specialist Relationship Specialty Start Date End Date Sreekanth Cortez, [address] [facility] [place] [address] PCP - General Family Medicine 02/28/16 Senior Education Specialist Relationship Specialty Start Date End Date Sreekanth Cortez, [address] [facility] [place] [address] PCP - General Family Medicine 02/28/16 Senior Education Specialist Relationship Specialty Start Date End Date Sreekanth Cortez, [address] [facility] [place] [address] PCP - General Family Medicine 02/28/16 Senior Education Specialist Relationship Specialty Start Date End Date Sreeaknth Cortez DO [address] [place] [address] PCP - General Family Medicine 02/28/16 Senior Education Specialist Relationship Specialty Start Date End Date Sreekanth Cortez DO [address] [place] [address] PCP - General Family Medicine 02/28/16 Senior Education Specialist Relationship Specialty Start Date End Date Sreekanth Cortez DO [address] [facility] [place] [address] PCP - General Family Medicine 02/28/16 Senior Education Specialist Relationship Specialty Start Date End Date Sreekanth Cortez, [address] [facility] [place] [address] PCP - General Family Medicine 02/28/16 Donita Estes, PALM GATHERER.MATHS TUTOR [address] [facility] [place] [address] [employer] [facility] 07/30/24 Sergei Renner, PALM GATHERER.MATHS TUTOR [address] [facility] [place] [address] [employer] Family [facility] 07/30/24 Senior Education Specialist Relationship Specialty Start Date End Date Sreekanth Cortez, [address] [facility] [place] [address] PCP - General Family Medicine 02/28/16 Donita Estes, PALM GATHERER.MATHS TUTOR [address] [facility] [place] [address] Bartender Server Family [facility] 07/30/24 ZurdoSergei, PALM GATHERER.MATHS TUTOR [address] [facility] [place] [address] Bartender Server Family [facility] 07/30/24 Senior Education Specialist Relationship Specialty Start Date End Date Sreekanth Cortez DO [address] [place] [address] PCP - General Family Medicine 02/28/16 ZurdoSergei, PALM GATHERER.MATHS TUTOR [address] [place] [address] [facility] Senior Education Specialist Relationship Specialty Start Date End Date Sreekanth Cortez DO [address] [place] [address] PCP - General Family Medicine 02/28/16 ZurdoSergei, PALM GATHERER.MATHS TUTOR [address] [place] [address] [facility] 07/[facility]/24 Senior Education Specialist Relationship Specialty Start Date End Date Sreekanth Cortez DO [address] [facility] [place] [address] PCP - General Family Medicine 02/28/16 ZurdoSergei, PALM GATHERER.MATHS TUTOR [address] [facility] [place] [address] Bartender Server Family [facility] 07/30/24 Senior Education Specialist Relationship Specialty Start Date End Date Sreekanth Cortez DO [address] [facility] [place] [address] PCP - General Family Medicine 02/28/16 [facility] PALM GATHERER.MATHS TUTOR [address] [place] [address] Bartender Server [facility] 07/30/24 Senior Education Specialist Relationship Specialty Start Date End Date Sreekanth Cortez DO [address] [place] [address] PCP - General Family Medicine 02/28/16 [facility] PALM GATHERER.MATHS TUTOR [address] [place] [address] [employer] [facility] 07/30/24 Margoth Chavez, PALM GATHERER.MATHS TUTOR [address] [place] [address] [facility] 02/05/25 Senior Education Specialist Relationship Specialty Start Date End Date Sreekanth Cortez DO [address] [place] [address] PCP - General Family Medicine 02/28/16 [facility] PALM GATHERER.MATHS TUTOR [address] [place] [address] [facility] 07/30/24 Margoth Chavez, PALM GATHERER.MATHS TUTOR [address] [place] [address] [facility] 02/05/25 Team Status: Active Member Role/Relationship Status Dates Dr. Sreekanth Cortez DO Primary Care Provider Active Team Status: Inactive Member Role/Relationship Status Dates Dr. Sreekanth Cortez DO Primary Care Provider Active Start: February 22, 2025 End: February 22, 2025 Dr. Devaughn Farmer DO Emergency Provider Activ e Start: February 22, 2025 End: February 22, 2025 Senior Education Specialist Relationship Specialty Start Date End Date Sreekanth Cortez DO [address] [facility] [place] [address] PCP - General Family Medicine 02/28/16 [facility], PALM GATHERER.MATHS TUTOR [address] [place] [address] [facility] 07/30/24 ScottMargoth, PALM GATHERER.MATHS TUTOR [address] [place] [address] [employer]ender [employer] [facility] 02/05/25 Reynaldo Ordonez MD [employer] Server 02/25/25 03/10/25 Senior Education Specialist Relationship Specialty Start Date End Date Sreekanth Cortez DO [address] [facility] [place] [address] PCP - General Family Medicine 02/28/16 [facility], PALM GATHERER.MATHS TUTOR [address] [facility] [place] [address] [facility] 07/30/24 Margoth Chavez, PALM GATHERER.MATHS TUTOR [address] [facility] [place] [address] [facility] 02/05/25 Reynaldo Ordonez MD Bartender Server 02/25/25 03/10/25 Senior Education Specialist Relationship Specialty Start Date End Date Sreekanth Cortez DO [address] [facility], [place] [address] [phone] PCP - General Family Medicine 02/28/16 ZurdoSergei, PALM GATHERER.MATHS TUTOR [address] [place] [address] [employer] 07/30/24 Margoth Chavez, PALM GATHERER.MATHS TUTOR [address] [place] [address] [employer] 02/05/25 Provider, MD Reynaldo [employer]ender Server 02/25/25 03/10/25 Senior Education Specialist Relationship Specialty Start Date End Date Sreekanth Cortez DO [address] [place] [address] PCP - General Family Medicine 02/28/16 [facility] PALM GATHERER.MATHS TUTOR [address] [place] [address] [employer] 07/30/24 Margoth Chavez, PALM GATHERER.MATHS TUTOR [address] [place] [address] [employer] [facility] 02/05/25 Senior Education Specialist Relationship Specialty Start Date End Date Sreekanth Cortez DO [address] [place] [address] PCP - General Family Medicine 02/28/16 ZurdoSergei, PALM GATHERER.MATHS TUTOR [address] [facility] [place] [address] [employer] [facility] 07/30/24 Margoth Chavez, PALM GATHERER.MATHS TUTOR [address] [place] [address] [facility] 02/05/25 Goals (unrecognized section and content) Goals may be documented in a n alternate sectionGoals may be documented in an alternate sectionGoals may be documented in an [...] BE BASED ON THE PRIMARY CLINICAL RECORDS. [employer] provides no warranty or guarantee of the accuracy or completeness of information in this document.
--- OUTSIDE RECORDS SUMMARY | 2025-04-02 06:05 | XMS RPT_ITS | CCD ---
Author Organization [facility] Care Team Providers Care Eeo Officer Name Role Phone Mercedes Marin Unavailable Unavailable PROVIDER, UNKNOWN Unavailable Unavailable PROVIDER, UNKNOWN Unavailable Unavailable JOE RIOS Unavailable Unavail able PROVIDER, UNKNOWN Unavailable Unavailable Sreekanth Cortez Unavailable Unavailable Sreekanth Cortez DO Primary Care Provider Sreekanth Cortez DO Primary Care Provider Sreekanth Cortez DO Primary Care Provider Sreekanth Cortez DO Primary Care Provider Sreekanth Cortez DO Primary Care Provider Franklyn DESK SERGEANT.THIRD RIGGERDonita Unavailable Zurdo DESK SERGEANT.Sergei COVARRUBIAS Unavailable Scott DESK SERGEANT.Margoth COVARRUBIAS Unavailable Dr. Sreekanth Cortez DO Primary Care Provider Dr. Devaughn Farmer DO Emergency Provider Provider [...] CONTAINING PRODUCTS (DAIRY)] Drug Allergy 3 Cough [facility] (20 sources) Wheat gluten extract; Translations: [GLUTEN] Drug Allergy 3 Cough, GI Upset [facility] (7 sources) Latex; Translations: [LATEX] Drug Intolerance 5 Itching [facility] (1 source) Gluten Drug allergy (disorder) 5 [facility] Repository (1 source) amLODIPine; Translations: [AMLODIPINE] Drug Allergy 5 [facility] Repository (1 source) Losartan; Translations: [LOSARTAN] Drug Allergy 5 [facility] Repository Medications Current Medications Medication Drug Class(es) [...] above: Take 1 capsule by mo [facility] three times a day as needed. busPIRone [...] a day as needed. 168 hr cloNIDine 0.06723 mg/hr transdermal system (7 sources) Central alpha-2 [...] above: Take 1 capsule by mo [facility] daily before breakfast. 1/2 hr before meal. [...] n 03-30-2025 PERIOD (HRS) 24 hr Normal [facility] Comment on above: Order Comment: Johanne soto Type: BLOOD SPECIMEN Ordering Facility: [facility] Address: [address] [place] [address] Performed By: #### 3 024-7, 3016-3, 57741-2, 43821-6 #### [facility] CLIA [id number] [address] [place] [address] [place] Specimen volume (24H U) 3 L Normal C [facility] Comment on above: Order Comment: Johanne soto Type: BLOOD SPECIMEN Ordering Facility: [facility] Address: [address] [place] [address] Performed By: #### 3 024-7, 3016-3, 62145-7, 38063-4 #### [facility] CLIA [id number] [address] [place] [address] [place] Sodium 24h Ur-sRateon 2024 Sodium (24H U) [Moles/Time] 84 mmol/24 hr Normal 40-220 [facility] Comment on above: Order Comment: Johanne soto Type: BLOOD SPECIMEN Ordering Facility: [facility] Address: [address] [place] [address] Performed By: #### 3 024-7, 3016-3, 71984-3, 98914-2 #### [facility] CLIA [id number] [address] [place] [address] [place] Basic metabolic 2000 panelon 03-28-2025 Anion gap [Moles/Vol] 16 mmol/L High 8-15 [facility] Comment on above: Order Comment: Speci men Type: BLOOD SPECIMEN Ordering Facility: [facility] Address: [address] [place] [address] Performed By: #### 3 024-7, 3016-3, 51649-7, 90265-0 #### [facility] CLIA [id number] [address] [place] [address] [place] Calcium [Mass/Vol] 9.3 mg/dL Normal 8.5-10.2 [facility] Comment on above: Order Comment: Speci men Type: BLOOD SPECIMEN Ordering Facility: [facility] Address: [address] [place] [address] Performed By: #### 3 024-7, 3016-3, 60544-4, 37653-6 #### [facility] CLIA [id number] [address] [place] [address] [place] Chloride [Moles/Vol] 102 mmol/L Normal 98-107 [facility] Comment on above: Order Comment: Speci men Type: BLOOD SPECIMEN Ordering Facility: [facility] Address: [address] [place] [address] Performed By: #### 3 024-7, 3016-3, 88571-5, 92888-4 #### [facility] CLIA [id number] [address] [place] [address] [place] CO2 [Moles/Vol] 19 mmol/L Low 22-30 [facility] Comment on above: Order Comment: Speci men Type: BLOOD SPECIMEN Ordering Facility: [facility] Address: [address] [place] [address] Performed By: #### 3 024-7, 3016-3, 89465-9, 03726-9 #### [facility] CLIA [id number] [address] [place] [address] [place] Creatinine [Mass/Vol] 0.80 mg/dL Normal 0.58-0.96 [facility] Comment on above: Order Comment: Johanne soto Type: BLOOD SPECIMEN Ordering Facility: [facility] Address: [address] [place] [address] Performed By: #### 3 024-7, 3016-3, 05514-5, 65392-0 #### [facility] CLIA [id number] [address] [place] [address] [place] eGFRcr SerPlBld CKD-EPI 2020 73 mL/min/1.73m??? Normal >=60 [facility] Comment on above: Order Comment: Johanne soto Type: BLOOD SPECIMEN Ordering Facility: [facility] Address: [address] [place] [address] Result Comment: Hina mated Glomerular Filtration Rate [...] GFR. Performed By: #### 3 024-7, 3016-3, 91082-2, 72149-4 #### [facility] CLIA [id number] [address] [place] [address] [place] Glucose [Mass/Vol] 106 mg/dL High 74-99 [facility] Comment on above: Order Comment: Johanne soto Type: BLOOD SPECIMEN Ordering Facility: [facility] Address: [address] [place] [address] Result Comment: The [place] Diabetes Association (ADA) provides guidance for cutoff [...] Standards of Medical Care in Diabetes 2016, [place] [employer] Association. Diabetes Care. 2016.39(Suppl 1). Performed By: #### 3 024-7, 3016-3, 89050-1, 63066-8 #### [facility] CLIA [id number] [address] [place] [address] [place] Potassium [Moles/Vol] 4.1 mmol/L Normal 3.7-5.1 [facility] Comment on above: Order Comment: Speci men Type: BLOOD SPECIMEN Ordering Facility: [facility] Address: [address] [place] [address] Performed By: #### 3 024-7, 6-3, 95484-4, 54916-9 #### [facility] CLIA [id number] [address] [place] [address] [place] Sodium [Moles/Vol] 137 mmol/L Normal 136-144 [facility] Comment on above: Order Comment: Sheilai men Type: BLOOD SPECIMEN Ordering Facility: [facility] Address: [address] [place] [address] Performed By: #### 3 024-7, 3016-3, 95371-7, 43061-6 #### [facility] CLIA [id number] [address] [place] [address] [place] Urea nitrogen [Mass/Vol] 9 mg/dL Normal 7-21 [facility] Comment on above: Order Comment: Speci men Type: BLOOD SPECIMEN Ordering Facility: [facility] Address: [address] [place] [address] Performed By: #### 3 024-7, 3016-3, 75824-7, 56154-3 #### [facility] CLIA [id number] [address] [place] [address] [place] CNOVon 03-28-2025 CNOV Office Visit (FAMPWS ) CASANDRA HENRY ([id number]) 1940 F Date Time Provider Department 03/28/25 [...] Scheduled cardiology appointment with Dr. Lewis at [facility] on 04/04. - Previous evaluation by elementary school science teacher Dr. Ray for stage 3 CKD- states [...] SPEC WHEN PFRMD 12/05/2013 Colonoscopy done in [facility] FLX W/REMOVAL LESION BY HOT BX [...] - 5.20 (more content not included)... Normal [facility] Cortmathew Ortiz-Merrill 03-28-20 25 Cortisol [Mass/Vol] 15.9 ug/dL Normal 4.8-19.5 [facility] Comment on above: Order Comment: Speci men Type: BLOOD SPECIMEN Ordering Facility: [facility] Address: [address] [place] [address] Result Comment: Prov ided reference range is from 6-10 AM sample collection time. Cortisol Reference Range: 6-10 AM = 4.8-19.5 ug/dL, 4-8 PM = 2.5-11.9 ug/dL Performed By: #### 3 024-7, 3016-3, 53578-2, 13501-4 #### [facility] CLIA [id number] [address] [place] [address] [place] CNPLorelei 03-26-2025 CNPN Telephone (FAMPWS) CASANDRA HENRY ([id number]) 1940 F Date Time Provider Department 03/26/25 SREEKANTH CORTEZ FAMPWS During your visit today, [...] Date Reviewed: 03/13/2025 Reviewed by: Margoth Chavez APRN.THIRD RIGGER - Fully Assessed Reason for Visit: Patient Update [1234] Patient Question [6157] Prescriptions as of 03/28/2025 - carvedilol (COREG) [...] by CHINEDU (more content not included)... Normal [facility] 03-17-2025 [facility] Telephone (THELMAWS) ELAINECASANDRA ([id number]) 1940 F Date Time Provider Department 03/17/25 [...] calling: self Call patient at: at home [phone] (home) [phone] (cell) Was an appointment scheduled: No Closing [...] no med changes but a referral to [facility] for labile blood pressure. On 02/24, pt went to [facility] and was admitted overnight for BP-discharged on [...] BP today (more content not included)... Normal [facility] CNOVon 2025 CNOV Office Visit (FAMPWS ) CASANDRA HENRY ([id number]) 1940 F Date Time Provider Department 03/12/25 [...] SPEC WHEN PFRMD [facility] 02/19/2020 [...] mouth once daily as needed. cloNIDine TTS ([id number]-2) 0.1 mg/24 hr Apply 1 patch as [...] well nourished.. (more content not included)... Normal [facility] Basic metabolic 2000 panelon 03-08-2025 Anion gap [Moles/Vol] 15 mmol/L Normal 8-15 [facility] Comment on above: Order Comment: Speci men Type: BLOOD SPECIMEN Ordering Facility: [facility] Address: [address] [place] [address] Performed By: #### 3 024-7, 3016-3, 66972-9, 75894-1 #### [facility] CLIA [id number] [address] [place], [place] [id number] [address] [place] Calcium [Mass/Vol] 9.7 mg/dL Normal 8.5-10.2 [facility] Comment on above: Order Comment: Speci men Type: BLOOD SPECIMEN Ordering Facility: [facility] Address: [address] [place] [address] Performed By: #### 3 024-7, 3016-3, 73117-6, 71903-9 #### [facility] CLIA [id number] [address] [place] [address] [place] Chloride [Moles/Vol] 101 mmol/L Normal 98-107 [facility] Comment on above: Order Comment: Speci men Type: BLOOD SPECIMEN Ordering Facility: [facility] Address: [address] [place] [address] Performed By: #### 3 024-7, 3016-3, 08286-1, 03856-1 #### [facility] CLIA [id number] [address] [place] [address] [place] CO2 [Moles/Vol] 21 mmol/L Low 22-30 [facility] Comment on above: Order Comment: Speci men Type: BLOOD SPECIMEN Ordering Facility: [facility] Address: [address] [place] [address] Performed By: #### 3 024-7, 3016-3, 50190-4, 52533-0 #### [facility] CLIA [id number] [address] [place] [address] [place] Creatinine [Mass/Vol] 0.80 mg/dL Normal 0.58-0.96 [facility] Comment on above: Order Comment: Speci men Type: BLOOD SPECIMEN Ordering Facility: [facility] Address: [address] [place] [address] Performed By: #### 3 024-7, 3016-3, 38047-8, 13305-7 #### [facility] CLIA [id number] [address] [place] [address] [place] eGFRcr SerPlBld CKD-EPI 2020 74 mL/min/1.73m??? Normal >=60 [facility] Comment on above: Order Comment: Johanne soto Type: BLOOD SPECIMEN Ordering Facility: [facility] Address: [address] [place] [address] Result Comment: Hina mated Glomerular Filtration Rate [...] GFR. Performed By: #### 3 024-7, 3016-3, 55439-4, 29773-1 #### [facility] CLIA [id number] [address] [place] [address] [place] Glucose [Mass/Vol] 92 mg/dL Normal 74-99 [facility] Comment on above: Order Comment: Johanne soto Type: BLOOD SPECIMEN Ordering Facility: [facility] Address: [address] [place] [address] Result Comment: The [place] Diabetes Association (ADA) provides guidance for cutoff [...] Standards of Medical Care in Diabetes 2016, [place] [employer]. Diabetes Care. 2016.39(Suppl 1). Performed By: #### 3 024-7, 3016-3, 02601-7, 93293-0 #### [facility] CLIA [id number] [address] [place] [address] [place] Potassium [Moles/Vol] 4.7 mmol/L Normal 3.7-5.1 [facility] Comment on above: Order Comment: Speci men Type: BLOOD SPECIMEN Ordering Facility: [facility] Address: [address] [place] [address] Performed By: #### 3 024-7, 3016-3, 99158-9, 19661-8 #### [facility] CLIA [id number] [address] [place] [address] [place] Sodium [Moles/Vol] 137 mmol/L Normal 136-144 [facility] Comment on above: Order Comment: Speci men Type: BLOOD SPECIMEN Ordering Facility: [facility] Address: [address] [place] [address] Performed By: #### 3 024-7, 3016-3, 94134-6, 64938-3 #### [facility] CLIA [id number] [address] [place] [address] [place] Urea nitrogen [Mass/Vol] 10 mg/dL Normal - [facility] Comment on above: Order Comment: Speci men Type: BLOOD SPECIMEN Ordering Facility: [facility] Address: [address] [place] [address] Performed By: #### 3 024-7, 3016-3, 35474-3, 97948-0 #### [facility] CLIA [id number] [address] [place] [address] [place] CNPLorelei 03-08-2025 CNPN Telephone (PODCCP) CASANDRA HENRY ([id number]) 1940 F Date Time Provider Department 03/08/25 CORTEZ, SREEKANTH L PODCCP During your visit today, we recorded the following information about you: Yu Vale 03/08/2025 9:49 AM Signed Transitional Care Management (TCM) [facility] Monitoring [facility] Provider Action / FYI: na SUMMARY: Outreach type: INITIAL OUTREACH Discharge Network Status: In-Network Discharge Source of Patient: [facility] TCM Discharge Report Patient discharged from [facility] on 02.25.25. Admitted for Dizziness. . Contact [...] once daily as needed. - cloNIDine TTS ([id number]-8) 0.1 mg/24 hr Apply 1 patch as [...] Encounter Status:Closed by VALE YU on 03/08/25 [facility] CNPNon 02-28-2025 CNPN Telephone (PODCCP) CASANDRA HENRY ([id number]) 1940 F Date Time Provider Department 02/28/25 SREEKANTH CORTEZ PODCCP During your visit today, we recorded the following information about you: Aspen Silvestre 02/28/2025 1:01 PM Signed Transitional Care Management (TCM) [facility] Provider Action / FYI: N/a SUMMARY: Outreach type: INITIAL OUTREACH Discharge Network Status: In-Network Discharge Source of Patient: [facility] TCM Discharge Report Patient discharged from [facility] on 02/25/2025. Admitted for Dizziness. Contact made with patient: Yes, for Initial Outreach Hi my name is Aspen Silvestre and I am calling from the [facility] on behalf of your Primary Care Provider, [...] Center phone number to speak with a aeronautical research engineer who can assist you with that appointment. [...] Aspen Silvestre February 28, 2025 1:00 PM Allergies [...] once daily as needed. - cloNIDine TTS ([id number]-4) 0.1 mg/24 hr Apply 1 patch as [...] Status:Closed by ASPEN SILVESTRE on 02/28/25 Normal [facility] CNOVon 02-26-2025 CNOV Office Visit (FAMPWS ) CASANDRA HENRY ([id number]) 1940 F Date Time Provider Department 02/26/25 9:00 AM MARGOTH CHAVEZ During your visit today, we recorded the following information about you: Pulse Blood pressure Weight 75/minute 170/80 63.8 kg Margoth Chavez, FERNANDEZ.THIRD RIGGER 02/26/2025 10:18 AM Signed This is a 84 year old female who presents today with: Follow up ER visit 02/22 [facility] (new order to increase losartan to twice daily which is what she is already on) [facility] 02/24-02/25 (new order to increase carvedilol to [...] with self care HISTORY OF PRESENT ILLNESS: -Caasndra has been dealing with labile blood pressures, symptomatic with dizziness and brain fog, lethargy, mild headaches -they increased her carvedilol at [place] over the weekend but she didn't take [...] SPEC WHEN PFRMD 12/05/2013 Colonoscopy done in [facility] FLX W/REMOVAL LESION BY HOT BX [...] and potenti (more content not included)... [facility] HNO ID: [id number] Author: MARTHA MARTINI MRI Tech Service: Radiology Author Type: Political Worker Type: Allied Health Filed: 02/25/2025 11:28 Note [...] PATIENT PRESENTS WITH AN IMPLANTABLE OR ATTACHED AIR BRAKE RIGGER: No RADIOLOGY DEPARTMENT: MR; Exam(s) Completed: Head: Routine Brain. Aromatherapy Administered: No PERIPHERAL IV DATA: Not applicable SIGNED BY: RADHA Marmolejo February 25, 2025 11:28 AM [facility] Aldost SerPl-mCncon 02-26-20 25 Aldosterone [Mass/Vol] 3.6 ng/dL Normal 0.0-<35.4 [facility] Comment on above: Order Comment: Speci men Type: BLOOD SPECIMEN Ordering Facility: [facility] Address: [address] [place] [address] Result Comment: The reference interval for serum/plasma [...] ng/dL. Performed By: #### 1 763-2 #### [facility] CLIA [id number] [address] [place] [address] [place] CBC W Auto Differential pane l (Bld)on 02-25-2025 Basophils (Bld) [#/Vol] 10*3/uL Normal <0.11 [facility] Comment on above: Order Comment: Speci men Type: BLOOD SPECIMENOrdering Facility: [facility] Address: [address] [place] [address] Performed By: #### 5 7021-8 ####[facility] [id number] [place] [address] [place] Basophils/100 WBC (Bld) 0.2 % Normal [facility] Comment on above: Order Comment: Speci men Type: BLOOD SPECIMENOrdering Facility: [facility] Address: [address] [place] [address] Performed By: #### 5 7021-8 ####[facility] [id number] [address] [place] Differential cell count method Nom (Bld) Auto Normal [facility] Comment on above: Order Comment: Speci men Type: BLOOD SPECIMENOrdering Facility: [facility] Address: [address] [place] [address] Performed By: #### 5 7021-8 ####[facility] [id number] [place] [address] [place] Eosinophils (Bld) [#/Vol] 0.46 10*3/uL High <0.46 [facility] Comment on above: Order Comment: Speci men Type: BLOOD SPECIMENOrdering Facility: [facility] Address: [address] [place] [address] Performed By: #### 5 7021-8 ####[facility] [id number] [place] [address] [place] Eosinophils/100 WBC (Bld) 5.5 % Normal [facility] Comment on above: Order Comment: Speci men Type: BLOOD SPECIMENOrdering Facility: [facility] Address: [address] [place] [address] Performed By: #### 5 7021-8 ####[facility] [id number] [address] [place] Erythrocyte distribution width (RBC) [Ratio] 11.9 % Normal 11.5-15.0 [facility] Comment on above: Order Comment: Speci men Type: BLOOD SPECIMENOrdering Facility: [facility] Address: [address] [place] [address] Performed By: #### 5 7021-8 ####[facility] [id number] [place] [address] [place] Hematocrit (Bld) [Volume fraction] 34.4 % Low 36.0-46.0 [facility] Comment on above: Order Comment: Speci men Type: BLOOD SPECIMENOrdering Facility: [facility] Address: [address] [place] [address] Performed By: #### 5 7021-8 ####[facility] [id number] [place] [address] [place] Hemoglobin (Bld) [Mass/Vol] 11.9 g/dL Normal 11.5-15.5 [facility] Comment on above: Order Comment: Speci men Type: BLOOD SPECIMENOrdering Facility: [facility] Address: [address] [place] [address] Performed By: #### 5 7021-8 ####[facility]CL[facility] [id number] [place] [address] [place] [facility] [place] Immature granulocytes (Bld) [#/Vol] 10*3/uL Normal <0.10 [facility] Comment on above: Order Comment: Speci men Type: BLOOD SPECIMENOrdering Facility: [facility] Address: [address] [place] [address] Performed By: #### 5 7021-8 ####[facility]CL[facility] [id number] [address] Immature granulocytes/100 WBC (Bld) 0.2 % Normal [facility] Comment on above: Order Comment: Speci men Type: BLOOD SPECIMENOrdering Facility: [facility] Address: [address] [place] [address] Performed By: #### 5 7021-8 ####[facility]CLIA [id number] [address] Lymphocytes (Bld) [#/Vol] 1.70 10*3/uL Normal 1.00-4.00 [facility] Comment on above: Order Comment: Speci men Type: BLOOD SPECIMENOrdering Facility: [facility] Address: [address] [place] [address] Performed By: #### 5 7021-8 ####[facility]ORYCLIA [id number] [address] Lymphocytes/100 WBC (Bld) 20.4 % Normal [facility] Comment on above: Order Comment: Speci men Type: BLOOD SPECIMENOrdering Facility: [facility] Address: [address] [place] [address] Performed By: #### 5 7021-8 ####[facility]ORYCLIA [id number] [address] MCH (RBC) [Entitic mass] 30.5 pg Normal 26.0-34.0 [facility] Comment on above: Order Comment: Speci men Type: BLOOD SPECIMENOrdering Facility: [facility] Address: [address] [place] [address] Performed By: #### 5 7021-8 ####[facility]ORYCLIA [id number] [address] MCHC (RBC) [Mass/Vol] 34.6 g/dL Normal 30.5-36.0 [facility] Comment on above: Order Comment: Speci men Type: BLOOD SPECIMENOrdering Facility: [facility] Address: [address] [place] [address] Performed By: #### 5 7021-8 ####[facility]ORATORYCLIA [id number] [place] [address] [place] MCV (RBC) [Entitic vol] 88.2 fL Normal 80.0-100.0 [facility] Comment on above: Order Comment: Speci men Type: BLOOD SPECIMENOrdering Facility: [facility] Address: [address] [place] [address] Performed By: #### 5 7021-8 ####[facility]ORYCLIA [id number] [place] [address] [place] Monocytes (Bld) [#/Vol] 0.99 10*3/uL High <0.87 [facility] Comment on above: Order Comment: Speci men Type: BLOOD SPECIMENOrdering Facility: [facility] Address: [address] [place] [address] Performed By: #### 5 7021-8 ####[facility] LABORATORYCLIA [id number] [address] Monocytes/100 WBC (Bld) 11.9 % Normal [facility] Comment on above: Order Comment: Speci men Type: BLOOD SPECIMENOrdering Facility: [facility] Address: [address] [place] [address] Performed By: #### 5 7021-8 ####[facility] LABORATORYCLIA [id number] [place] [address] [place] Neutrophils (Bld) [#/Vol] 5.14 10*3/uL Normal 1.45-7.50 [facility] Comment on above: Order Comment: Speci men Type: BLOOD SPECIMENOrdering Facility: [facility] Address: [address] [place] [address] Performed By: #### 5 7021-8 ####[facility] LABORATORYCLIA [id number] [place] [address] [place] Neutrophils/100 WBC (Bld) 61.8 % Normal [facility] Comment on above: Order Comment: Speci men Type: BLOOD SPECIMENOrdering Facility: [facility] Address: [address] [place] [address] Performed By: #### 5 7021-8 ####[facility] LABORATORYCLIA [id number] [place] [address] [place] Nucleated RBC (Bld) [#/Vol] 10*3/uL Normal <0.01 [facility] Comment on above: Order Comment: Speci men Type: BLOOD SPECIMENOrdering Facility: [facility] Address: [address] [place] [address] Performed By: #### 5 7021-8 ####[facility] LABORATORYCLIA [id number] [address] [place] Nucleated RBC/100 WBC (Bld) [Ratio] 0.0 /100 WBC Normal [facility] Comment on above: Order Comment: Speci men Type: BLOOD SPECIMENOrdering Facility: [facility] Address: [address] [place] [address] Performed By: #### 5 7021-8 ####[facility] LABORATORYCLIA [id number] [place] [address] [place] Platelet mean volume (Bld) [Entitic vol] 9.3 fL Normal 9.0-12.7 [facility] Comment on above: Order Comment: Speci men Type: BLOOD SPECIMENOrdering Facility: [facility] Address: [address] [place] [address] Performed By: #### 5 7021-8 ####[facility] LABORATORYCLIA [id number] [place] [address] [place] Platelets (Bld) [#/Vol] 270 10*3/uL Normal 150-400 [facility] Comment on above: Order Comment: Speci men Type: BLOOD SPECIMENOrdering Facility: [facility] Address: [address] [place] [address] Performed By: #### 5 7021-8 ####[facility] LABORATORYCLIA [id number] [place] [address] [place] RBC (Bld) [#/Vol] 3.90 10*6/uL Normal 3.90-5.20 [facility] Comment on above: Order Comment: Sheilamarcie soto Type: BLOOD SPECIMENOrdering Facility: [facility] Address: [address] [id number] Performed By: #### 5 7021-8 ####[facility] LABORATORYCLIA [id number] [address] WBC (Bld) [#/Vol] 8.33 10*3/uL Normal 3.70-11.00 [facility] Comment on above: Order Comment: Specmarcie soto Type: BLOOD SPECIMENOrdering Facility: [facility] Address: [address] [place] [address] Performed By: #### 5 7021-8 ####G[facility]AL[facility] LABORATORYCLIA [id number] [address] CNDSon 02-25-2025 CNDS HNO ID: [id number] Author: PHILL DAO APRN.THIRD RIGGER Service: Hospital Medicine Author Type: Nurse Practitioner [...] Provider: Delilah Fisher MD Primary Service: , [facility] Nurse Practitioner: Phill Dao APRN.CNP REASON FOR [...] Center 02/26/2025 9:00 AM Margoth Chavez APRN.SATISH [facility] 05/14/2025 2:20 PM Sreekanth Cortez DO [facility] The patient's risk for 30-day readmission is determined using the following contributi (more content not included)... [facility] CONSULTon 02-25-2025 CONSULT HNO ID: [id number] Author: CISCO MCKENNA APRN.SATISH Service: Neurology General [...] pm [place]: 1 pm to 5 pm [facility]: 3 pm to 5 pm Statutory holidays do not have teleneuro coverage. [place]: During Off hours for Teleneurology please page (not call) [place] [facility] [address] commissioned fire officer for concerns. [place]: During Off hours for Teleneurology please page (not call) [place] neurology 17[address] commissioned fire officer for concerns. [facility]: There is no off-hours coverage for Teleneurology. [...] Laterality [place] (more content not included)... Normal [facility] Comprehensive metabolic 2000 panelon 02-25-2025 Albumin [Mass/Vol] 3.7 g/dL Low 3.9-4.9 [facility] Comment on above: Order Comment: Speci men Type: BLOOD SPECIMENOrdering Facility: [facility] Address: [address] [place] [address] Performed By: #### 2 432-8, ####G[facility] LABORATORYCLIA [id number] [place] [id number] [place] ALP [Catalytic activity/Vol] 120 U/L Normal 34-123 [facility] Comment on above: Order Comment: Speci men Type: BLOOD SPECIMENOrdering Facility: [facility] Address: [address] [place] [address] Performed By: #### 2 4323-8, ####[facility] LABORATORYCLIA [id number] [place] [address] [place] ALT [Catalytic activity/Vol] 11 U/L Normal 7-38 [facility] Comment on above: Order Comment: Speci men Type: BLOOD SPECIMENOrdering Facility: [facility] Address: [address] [place] [address] Performed By: #### 2 4322-8, ####[facility] LABORATORYCLIA [id number] [place] [id number] [place] Anion gap [Moles/Vol] 12 mmol/L Normal 8-15 [facility] Comment on above: Order Comment: Speci men Type: BLOOD SPECIMENOrdering Facility: [facility] Address: [address] [place] [address] Performed By: #### 2 432-8, ####[facility] LABORATORYCLIA [id number] [place] [id number] [place] AST [Catalytic activity/Vol] 16 U/L Normal 13-35 [facility] Comment on above: Order Comment: Speci men Type: BLOOD SPECIMENOrdering Facility: [facility] Address: [address] [place] [address] Performed By: #### 2 4323-8, ####G[facility] LABORATORYCLIA [id number] [place] [address] [place] Bilirubin [Mass/Vol] 1.4 mg/dL High 0.2-1.3 [facility] Comment on above: Order Comment: Speci men Type: BLOOD SPECIMENOrdering Facility: [facility] Address: [address] [place] [address] Performed By: #### 2 4328, ####G[facility]AL[facility] LABORATORYCLIA [id number] [place] [address] [place] Calcium [Mass/Vol] 8.7 mg/dL Normal 8.5-10.2 [facility] Comment on above: Order Comment: Speci men Type: BLOOD SPECIMENOrdering Facility: [facility] Address: [address] [place] [address] Performed By: #### 2 4323-03, ####G[facility] LABORATORYCLIA [id number] [place] [address] [place] Chloride [Moles/Vol] 99 mmol/L Normal 98-107 [facility] Comment on above: Order Comment: Speci men Type: BLOOD SPECIMENOrdering Facility: [facility] Address: [address] [place] [address] Performed By: #### 2 8, ####[facility] LABORATORYCLIA [id number] [place] [address] [place] CO2 [Moles/Vol] 24 mmol/L Normal 22-30 [facility] Comment on above: Order Comment: Speci men Type: BLOOD SPECIMENOrdering Facility: [facility] Address: [address] [place] [address] Performed By: #### 2 4323-8, ####[facility] LABORATORYCLIA [id number] [place] [address] [place] Creatinine [Mass/Vol] 0.81 mg/dL Normal 0.58-0.96 [facility] Comment on above: Order Comment: Speci men Type: BLOOD SPECIMENOrdering Facility: [facility] Address: [address] [place] [address] Performed By: #### 2 4323-8, ####[facility] LABORATORYCLIA [id number] [place] [address] [place] [facility] Creatinine and Glomerular filtration rate.predicted panel (S/P/Bld) 73 mL/min/1.73m??? Normal >=60 [facility] Comment on above: Order Comment: Johanne men Type: BLOOD SPECIMENOrdering Facility: [facility] Address: [address] [place] [address] Result Comment: Hina mated Glomerular Filtration Rate [...] Performed By: #### 2 4323-8, ####G[facility] LABORATORYCLIA [id number] [place] [address] [place] Glucose [Mass/Vol] 98 mg/dL Normal 74-99 [facility] Comment on above: Order Comment: Johanne soto Type: BLOOD SPECIMENOrdering Facility: [facility] Address: [address] [place] [address] Result Comment: The [place] Diabetes Association (ADA) provides guidance for cutoff [...] Standards of Medical Care in Diabetes 2016, [place] [employer]. Diabetes Care. 2016.39(Suppl 1). Performed By: #### 2 4323-8, ####[facility] LABORATORYCLIA [id number] [place] [address] [place] Potassium [Moles/Vol] 3.7 mmol/L Normal 3.7-5.1 [facility] Comment on above: Order Comment: Speci men Type: BLOOD SPECIMENOrdering Facility: [facility] Address: [address] [place] [address] Performed By: #### 2 4323-8, ####[facility] LABORATORYCLIA [id number] [place] [address] [place] Protein [Mass/Vol] 6.3 g/dL Normal 6.3-8.0 [facility] Comment on above: Order Comment: Speci men Type: BLOOD SPECIMENOrdering Facility: [facility] Address: [address] [place] [address] Performed By: #### 2 4323-8, ####G[facility] LABORATORYCLIA [id number] [address] [place] Sodium [Moles/Vol] 135 mmol/L Low 136-144 [facility] Comment on above: Order Comment: Speci men Type: BLOOD SPECIMENOrdering Facility: [facility] Address: [address] [place] [address] Performed By: #### 2 4323-8, ####G[facility] LABORATORYCLIA [id number] [address] [place] Urea nitrogen [Mass/Vol] 8 mg/dL Normal 7-21 [facility] Comment on above: Order Comment: Speci men Type: BLOOD SPECIMENOrdering Facility: [facility] Address: [address] [place] [address] Performed By: #### 2 4323-8, ####G[facility] LABORATORYCLIA [id number] [place] [id number] [place] Cortmathew Ortiz-Jennyferon 02-26-20 25 Cortisol [Mass/Vol] 8.4 ug/dL Normal 4.8-19.5 [facility] Comment on above: Order Comment: Speci men Type: BLOOD SPECIMENOrdering Facility: [facility] Address: [address] [place] [address] Result Comment: Prov ided reference range is from 6-10 AM sample collection time. Cortisol Reference Range: 6-10 AM = 4.8-19.5 ug/dL, 4-8 PM = 2.5-11.9 ug/dL Performed By: #### 2 143-6 ####[facility] LABCLIA [id number] [facility] CENTERDannielle [place] [address] [place] MRI BRAIN WO IVCONon 025 MRI BRAIN WO IVCON * * *Final Report* * * DATE OF EXAM: Feb 25 2025 11:31AM [facility] 0294 - MRI BRAIN WO IVCON / [...] no evidence of an acute parenchymal infarct. Supervisor Agricultural Education: DELIA Transcribe Date/Time: Feb 25 2025 11:31A Dictated by : WANDA PONCE, DO This examination was interpreted and the report reviewed and electronically signed by: WANDA PONCE DO on Feb 25 2025 11:37AM EST [id number] Normal [facility] Magnesium SerPl-mCncon 02-25 Magnesium [Mass/Vol] 2.1 mg/dL Normal 1.7-2.3 [facility] Comment on above: Order Comment: Speci men Type: BLOOD SPECIMENOrdering Facility: [facility] Address: [facility] [place] [address] Performed By: #### 2 4323-8, 39566-8 ####L[facility] LABORATORYCLIA [id number] [address] THERAPY NTon 02-25-2025 THERAPY NT HNO ID: [id number] Author: ROXANNE LOWERY PT Service: Physical Therapy Author Type: Physical Therapist Type: Therapy (PT/OT/Speech/Resp) Filed: 02/25/2025 15:05 Note Text: Summary: PT Discontinuation PHYSICAL THERAPY MISSED VISIT SERVICE DATE: 02/25/2025 SERVICE TIME: 1503 ROOM: [place] [address] Patient not seen due to Clinical Appropriateness (no PT needs, IND with mobility, good home support system, confirmed with primary nurse). PT order discontinued at this time. Patient and physician notified that the PT department remains available for further consultation as deemed necessary and/appropriate by the referring physician. SIGNATURE: Roxanne Lowery, PT PATIENT NAME: Casandra Henry DATE: February 25, 2025 TIME: 3:05 PM [facility] THERAPY NT HNO ID: [id number] Author: BRUNILDA CHINCHILLA OTR/L Service: Occupational Therapy Author Type: Occupational Therapist Type: Therapy (PT/OT/Speech/Resp) Filed: 02/25/2025 14:47 Note Text: Summary: OT Eval Occupational Therapy Evaluation Summary SERVICE DATE: 02/25/2025 SERVICE TIME: 1431 to 1446 ROOM: [id number] OT 6 Clicks Score: 24 DISCHARGE RECOMMENDATIONS [...] DATE: February 25, 2025 TIME: 2:47 PM [facility] THERAPY NT HNO ID: [id number] Author: CHEMO DE ANDA CCC-COMMERCIAL DECORATOR Service: Speech/Swallow Author Type: Speech Language Pathologist Type: Therapy (PT/OT/Speech/Resp) Filed: 02/25/2025 10:53 Note Text: Speech Therapy Clinical Swallow Evaluation SERVICE DATE: 02/25/2025 SERVICE TIME: 1028 to 1050 ROOM: [place] [address] IMPRESSION Functional oropharyngeal phases of swallowing: without [...] Skilled Need TREATMENT INTERVENTIONS Clinical Swallow Evaluation (14002) Skilled Treatment Time (minutes): 22 TRAINING AND [...] if she eats gluten her throat tickles. COMMERCIAL DECORATOR does not recommend any changes to diet [...] Patient, Family, Nurse SIGNATURE: Chemo De Anda [facility]-COMMERCIAL DECORATOR PATIENT NAME: Casandra Henry DATE: February 25, 2025 TIME: 10:53 AM Normal [facility] ALBUMIN/CREATININE RATIO, UR INEon 02-24-2025 Albumin DL <= 20 mg/L (U) [Mass/Vol] 226.4 mg/L Normal [facility] Comment on above: Order Comment: Speci men Type: URINE SPECIMENOrdering Facility: [facility] Address: [address] [place] [address] Performed By: #### U ACR, 90490-1, UUNR ####[facility] LABCLIA [id number] [address] [address] [place] Albumin/Creatinine (U) [Mass ratio] 164 mg/g High <30 [facility] Comment on above: Order Comment: Speci men Type: URINE SPECIMENOrdering Facility: [facility] Address: [address] [place] [address] Result Comment: Adul t Male and Female Nephrotic Criteria: <30 mg/g is considered normal to mildly increased 30-300 mg/g is considered moderately increased >300 mg/g is considered severely increased KDIGO. (2013). KDIGO 2012 Clinical Practice Guideline for the Evaluation and Management of Chronic Kidney Disease. Official Journal of the International Society of Nephrology, 3(1), 1-150. Performed By: #### U ACR, 92158-0, UUNR ####[facility] LABNORTHEAST[facility] [id number] [place] [id number] [place] Creatinine (U) [Mass/Vol] 137.8 mg/dL Normal 20.0-300.0 [facility] Comment on above: Order Comment: Speci men Type: URINE SPECIMENOrdering Facility: [facility] Address: [address] [place] [address] Performed By: #### U ACR, 94832-7, UUNR ####[facility] LABIA [id number] [place] [id number] [place] ALLIED HEALTHon 02-24-2025 ALLIED HEALTH HNO ID: [id number] Author: ASHLEY CHASE Tech Service: Radiology Author Type: Political Worker Type: Allied Health Filed: 02/24/2025 19:03 Note [...] PATIENT PRESENTS WITH AN IMPLANTABLE OR ATTACHED AIR BRAKE RIGGER: No RADIOLOGY DEPARTMENT: Ultrasound PERIPHERAL IV DATA: Not applicable SIGNED BY: Ericka Mason February 24, 2025 7:03 PM Normal [facility] CBC W Auto Differential pane l (Bld)on 02-24-2025 Basophils (Bld) [#/Vol] 0.04 10*3/uL Normal <0.11 [facility] Comment on above: Order Comment: Speci men Type: BLOOD SPECIMENOrdering Facility: [facility] Address: [address] [place] [address] Performed By: #### 5 5454-3 ####[facility] LABCLIA [id number] [address] [place]#### 32477-7 ####LIG[facility]OR[facility] LABORATORYCLIA [id number] [place] [address] [place] Basophils/100 WBC (Bld) 0.5 % Normal [facility] Comment on above: Order Comment: Speci men Type: BLOOD SPECIMENOrdering Facility: [facility] Address: [address] [place] [address] Performed By: #### 5 5454-3 ####[facility] LABCLIA [id number] [place] [address] [place]#### 92626-8 ####LIG[facility]ORI LABORATORYCLIA [id number] [place] [address] [place] Differential cell count method Nom (Bld) Auto Normal [facility] Comment on above: Order Comment: Speci men Type: BLOOD SPECIMENOrdering Facility: [facility] Address: [address] [place] [address] Performed By: #### 5 5454-3 ####[facility] LABCLIA [id number] [address] [place]#### 58354-8 ####G[facility] LABORATORYCLIA [id number] [place] [address] [place] Eosinophils (Bld) [#/Vol] 0.53 10*3/uL High <0.46 [facility] Comment on above: Order Comment: Speci men Type: BLOOD SPECIMENOrdering Facility: [facility] Address: [address] [place] [address] Performed By: #### 5 5454-3 ####[facility] LABCLIA [id number] [address]#### [address]-2 ####[facility] LABORATORYCLIA [id number] [address] Eosinophils/100 WBC (Bld) 6.3 % Normal [facility] Comment on above: Order Comment: Speci men Type: BLOOD SPECIMENOrdering Facility: [facility] Address: [address] [place] [address] Performed By: #### 5 5454-3 ####[facility] LABCLIA [id number] [address] [place]#### 66[address]-9 ####[facility] LABORATORYCLIA [id number] [address] [place] Erythrocyte distribution width (RBC) [Ratio] 12.0 % Normal 11.5-15.0 [facility] Comment on above: Order Comment: Speci men Type: BLOOD SPECIMENOrdering Facility: [facility] Address: [address] [place] [address] Performed By: #### 5 5454-3 ####[facility] LABCLIA [id number] [address] [place]#### [address]-9 ####[facility] LABORATORYCLIA [id number] [address] [place] Hematocrit (Bld) [Volume fraction] 36.3 % Normal 36.0-46.0 [facility] Comment on above: Order Comment: Speci men Type: BLOOD SPECIMENOrdering Facility: [facility] Address: [address] [place] [address] Performed By: #### 5 5454-3 ####[facility] LABCLIA [id number] [place] [address] [place]#### 67527-3 ####LIGUOR[facility] LABORATORYCLIA [id number] [place] [address] [place] Hemoglobin (Bld) [Mass/Vol] 12.2 g/dL Normal 11.5-15.5 [facility] Comment on above: Order Comment: Speci men Type: BLOOD SPECIMENOrdering Facility: [facility] Address: [address] [place] [address] Performed By: #### 5 5454-3 ####[facility] LABCLIA [id number] [place] [address] [place]#### 16549-3 ####[facility] LABORATORYCLIA [id number] [address] Immature granulocytes (Bld) [#/Vol] 10*3/uL Normal <0.10 [facility] Comment on above: Order Comment: Speci men Type: BLOOD SPECIMENOrdering Facility: [facility] Address: [address] [place] [address] Performed By: #### 5 5454-3 ####[facility] LABCLIA [id number] [address] [place]#### 53557-6 ####[facility] LABORATORYCLIA [id number] [address] Immature granulocytes/100 WBC (Bld) 0.2 % Normal [facility] Comment on above: Order Comment: Speci men Type: BLOOD SPECIMENOrdering Facility: [facility] Address: [address] [place] [address] Performed By: #### 5 5454-3 ####[facility] LABCLIA [id number] [address]#### 93673-0 ####LIG[facility] LABORATORYCLIA [id number] [address] STATES [facility] Lymphocytes (Bld) [#/Vol] 1.83 10*3/uL Normal 1.00-4.00 [facility] Comment on above: Order Comment: Speci men Type: BLOOD SPECIMENOrdering Facility: [facility] Address: [address] [place] [address] Performed By: #### 5 5454-3 ####[facility] LABCLIA [id number] [address]#### 98501-8 ####[facility] LABORATORYCLIA [id number] [address] Lymphocytes/100 WBC (Bld) 21.6 % Normal [facility] Comment on above: Order Comment: Speci men Type: BLOOD SPECIMENOrdering Facility: [facility] Address: [address] [place] [address] Performed By: #### 5 5454-3 ####[facility] LABCLIA [id number] [address]#### 71540-7 ####[facility] LABORATORYCLIA [id number] [address] [place] [facility] MCH (RBC) [Entitic mass] 29.9 pg Normal 26.0-34.0 [facility] Comment on above: Order Comment: Speci men Type: BLOOD SPECIMENOrdering Facility: [facility] Address: [address] [place] [address] Performed By: #### 5 5454-3 ####[facility] LABCLIA [id number] [address] [place]#### 40221-7 ####[facility] LABORATORYCLIA [id number] [address] [place] MCHC (RBC) [Mass/Vol] 33.6 g/dL Normal 30.5-36.0 [facility] Comment on above: Order Comment: Speci men Type: BLOOD SPECIMENOrdering Facility: [facility] Address: [address] [place] [address] Performed By: #### 5 5454-3 ####[facility] LABCLIA [id number] [place] [address] [place] [facility] [place]#### 27561-9 ####[facility] LABORATORYCLIA [id number] [address] [place] MCV (RBC) [Entitic vol] 89.0 fL Normal 80.0-100.0 [facility] Comment on above: Order Comment: Speci men Type: BLOOD SPECIMENOrdering Facility: [facility] Address: [address] [place] [address] Performed By: #### 5 5454-3 ####[facility] LABCLIA [id number] [address] [place]#### 20263-9 ####[facility] LABORATORYCLIA [id number] [address] [place] Monocytes (Bld) [#/Vol] 1.10 10*3/uL High <0.87 [facility] Comment on above: Order Comment: Speci men Type: BLOOD SPECIMENOrdering Facility: [facility] Address: [address] [place] [address] Performed By: #### 5 5454-3 ####[facility] LABCLIA [id number] [place] [address] [place] [facility] OF [place]#### 74320-8 ####[facility] LABORATORYCLIA [id number] [address] [place] Monocytes/100 WBC (Bld) 13.0 % Normal [facility] Comment on above: Order Comment: Speci men Type: BLOOD SPECIMENOrdering Facility: [facility] Address: [address] [place] [address] Performed By: #### 5 5454-3 ####[facility] LABCLIA [id number] [place] [address] [facility] [place]#### 02501-4 ####[facility] LABORATORYCLIA [id number] [address] [place] Neutrophils (Bld) [#/Vol] 4.94 10*3/uL Normal 1.45-7.50 [facility] Comment on above: Order Comment: Speci men Type: BLOOD SPECIMENOrdering Facility: [facility] Address: [address] [place] [address] Performed By: #### 5 5454-3 ####[facility] LABCLIA [id number] [place] [address] [place]#### 96436-5 ####[facility] LABORATORYCLIA [id number] [address] Neutrophils/100 WBC (Bld) 58.4 % Normal [facility] Comment on above: Order Comment: Speci men Type: BLOOD SPECIMENOrdering Facility: [facility] Address: [address] [place] [address] Performed By: #### 5 5454-3 ####[facility] LABCLIA [id number] [place] [address] [place]#### 80336-9 ####[facility] LABORATORYCLIA [id number] [address] [place] Nucleated RBC (Bld) [#/Vol] 10*3/uL Normal <0.01 [facility] Comment on above: Order Comment: Speci men Type: BLOOD SPECIMENOrdering Facility: [facility] Address: [facility] [place] [address] Performed By: #### 5 5454-3 ####[facility] LABCLIA [id number] [place] [address] [place]#### 89912-7 ####[facility] LABORATORYCLIA [id number] [place] [address] [place] Nucleated RBC/100 WBC (Bld) [Ratio] 0.0 /100 WBC Normal [facility] Comment on above: Order Comment: Speci men Type: BLOOD SPECIMENOrdering Facility: [facility] Address: [address] [place] [address] Performed By: #### 5 5454-3 ####[facility] LABCLIA [id number] [place] [address] [place] [facility] [place]#### 08145-3 ####[facility] LABORATORYCLIA [id number] [place] [address] [place] Platelet mean volume (Bld) [Entitic vol] 9.1 fL Normal 9.0-12.7 [facility] Comment on above: Order Comment: Speci men Type: BLOOD SPECIMENOrdering Facility: [facility] Address: [address] [place] [address] Performed By: #### 5 5454-3 ####[facility] LABCLIA [id number] [address] [place]#### 05070-8 ####[facility] LABORATORYCLIA [id number] [address] [place] Platelets (Bld) [#/Vol] 282 10*3/uL Normal 150-400 [facility] Comment on above: Order Comment: Speci men Type: BLOOD SPECIMENOrdering Facility: [facility] Address: [address] [place] [address] Performed By: #### 5 5454-3 ####[facility] LABCLIA [id number] [place] [address] [facility]#### 93637-9 ####[facility] LABORATORYCLIA [id number] [place] [address] [place] RBC (Bld) [#/Vol] 4.08 10*6/uL Normal 3.90-5.20 [facility] Comment on above: Order Comment: Speci men Type: BLOOD SPECIMENOrdering Facility: [facility] Address: [address] [place] [address] Performed By: #### 5 5454-3 ####[facility] LABCLIA [id number] [address] [place]#### 92471-0 ####[facility] LABORATORYCLIA [id number] [address] WBC (Bld) [#/Vol] 8.46 10*3/uL Normal 3.70-11.00 [facility] Comment on above: Order Comment: Speci men Type: BLOOD SPECIMENOrdering Facility: [facility] Address: [address] [place] [address] Performed By: #### 5 5454-3 ####[facility] LABCLIA [id number] [address]#### 86334-8 ####[facility] LABORATORYCLIA [id number] [address] BRAIN WO IVCONon 02-25-20 CT BRAIN WO IVCON * * *Final Report* * * DATE OF EXAM: Feb 24 2025 5:21PM [facility] 0504 - CT BRAIN WO IVCON / [...] base and imaged soft tissues are unremarkable. Thermal Surfacing Machine Operator (topogram) images: No additional findings. IMPRESSION: No acute intracranial process. _ Supervisor Agricultural Education: PSCB Transcribe Date/Time: Feb 24 2025 7:42P Dictated by : PRACHI FELIX MD This examination was interpreted and the report reviewed and electronically signed by: PRACHI FELIX MD on Feb 24 2025 7:44PM EST [id number] Normal [facility] Comprehensive metabolic 2000 panelon 02-24-2025 Albumin [Mass/Vol] 3.9 g/dL Normal 3.9-4.9 [facility] Comment on above: Order Comment: Speci men Type: BLOOD SPECIMENOrdering Facility: [facility] Address: [address] [place] [address] Performed By: #### 2 4323-8, 78581-6, TSH, 14822-4, 47188-4 ####[facility] LABORATORYCLIA [id number] [place] [address] [place] ALP [Catalytic activity/Vol] 130 U/L High 34-123 [facility] Comment on above: Order Comment: Speci men Type: BLOOD SPECIMENOrdering Facility: [facility] Address: [address] [place] [address] Performed By: #### 2 4323-8, 69724-3, TSHRF, 97535-1, 83309-0 ####[facility] LABORATORYCLIA [id number] [place] [address] [place] ALT [Catalytic activity/Vol] 13 U/L Normal 7-38 [facility] Comment on above: Order Comment: Speci men Type: BLOOD SPECIMENOrdering Facility: [facility] Address: [address] [place] [address] Performed By: #### 2 4323-8, 46691-9, TSHRF, 25626-0, 46065-2 ####[facility] LABORATORYCLIA [id number] [place] [address] [place] Anion gap [Moles/Vol] 13 mmol/L Normal 8-15 [facility] Comment on above: Order Comment: Speci men Type: BLOOD SPECIMENOrdering Facility: [facility] Address: [address] [place] [address] Performed By: #### 2 4323-8, 69087-6, TSHRF, 63239-1, 40682-8 ####[facility] LABORATORYCLIA [id number] [place] [id number] [place] AST [Catalytic activity/Vol] Normal [facility] Comment on above: Order Comment: Speci men Type: BLOOD SPECIMENOrdering Facility: [facility] Address: [address] [place] [address] Result Comment: Unab le to assay due to interference from hemolysis. Suggest reorder as clinically indicated. Performed By: #### 2 4323-8, 26798-8, TSH, 76717-6, 82509-2 ####[facility] LABORATORYCLIA [id number] [address] [place] Bilirubin [Mass/Vol] 1.4 mg/dL High 0.2-1.3 [facility] Comment on above: Order Comment: Speci men Type: BLOOD SPECIMENOrdering Facility: [facility] Address: [address] [place] [address] Performed By: #### 2 4323-8, 94485-9, TSHRF, 87663-6, 19337-0 ####[facility] LABORATORYCLIA [id number] [place] [address] [place] Calcium [Mass/Vol] 8.8 mg/dL Normal 8.5-10.2 [facility] Comment on above: Order Comment: Speci men Type: BLOOD SPECIMENOrdering Facility: [facility] Address: [address] [place] [address] Performed By: #### 2 4323-8, 38716-7, TSHRF, 90739-0, 14439-4 ####[facility] LABORATORYCLIA [id number] [place] [address] [place] Chloride [Moles/Vol] 96 mmol/L Low 98-107 [facility] Comment on above: Order Comment: Johanne soto Type: BLOOD SPECIMENOrdering Facility: [facility] Address: [address] [place] [address] Performed By: #### 2 4323-8, 83390-4, TSH, 73561-5, 55028-2 ####[facility] LABORATORYCLIA [id number] [place] [id number] [place] CO2 [Moles/Vol] 21 mmol/L Low 22-30 [facility] Comment on above: Order Comment: Johanne men Type: BLOOD SPECIMENOrdering Facility: [facility] Address: [address] [place] [address] Performed By: #### 2 4323-8, 14595-3, TSH, 06664-5, 09186-0 ####[facility] LABORATORYCLIA [id number] [address] [facility] Creatinine [Mass/Vol] 0.71 mg/dL Normal 0.58-0.96 [facility] Comment on above: Order Comment: Johanne soto Type: BLOOD SPECIMENOrdering Facility: [facility] Address: [address] [place] [address] Performed By: #### 2 4323-8, 66816-2, [facility], 60043-5, 03336-2 ####[facility] LABORATORYCLIA [id number] [address] Creatinine and Glomerular filtration rate.predicted panel (S/P/Bld) 85 mL/min/1.73m??? Normal >=60 [facility] Comment on above: Order Comment: Johanne soto Type: BLOOD SPECIMENOrdering Facility: [facility] Address: [address] [place] [address] Result Comment: Hina mated Glomerular Filtration Rate [...] actual GFR. Performed By: #### 2 4323-8, 16311-4, [facility], 69564-8, ####[facility] LABORATORYCLIA [id number] [place] [address] [place] Glucose [Mass/Vol] 104 mg/dL High 74-99 [facility] Comment on above: Order Comment: Johanne soto Type: BLOOD SPECIMENOrdering Facility: [facility] Address: [address] [place] [address] Result Comment: The [place] Diabetes Association (ADA) provides guidance for cutoff [...] Standards of Medical Care in Diabetes 2016, [place] Diabetes Association. Diabetes Care. 2016.39(Suppl 1). Performed By: #### 2 4323-8, 97338-6, [facility], 37062-1, ####[facility] LABORATORYCLIA [id number] [place] [address] [place] Potassium [Moles/Vol] 4.3 mmol/L Normal 3.7-5.1 [facility] Comment on above: Order Comment: Johanne soto Type: BLOOD SPECIMENOrdering Facility: [facility] Address: [address] [place] [address] Performed By: #### 2 4323-8, 80226-6, [facility], 32806-5, 91524-0 ####[facility] LABORATORYCLIA [id number] [place] [id number] [place] Protein [Mass/Vol] 6.5 g/dL Normal 6.3-8.0 [facility] Comment on above: Order Comment: Johanne soto Type: BLOOD SPECIMENOrdering Facility: [facility] Address: [address] [place], [place] [address] [place] [address] Performed By: #### 2 4323-8, 12075-4, TSHRF, 45689-1, 85684-8 ####[facility] LABORATORYCLIA [id number] [place] [address] [facility] Sodium [Moles/Vol] 130 mmol/L Low 136-144 [facility] Comment on above: Order Comment: Speci men Type: BLOOD SPECIMENOrdering Facility: [facility] Address: [address] [place] [address] [place] [id number] Performed By: #### 2 4323-8, 13432-7, TSHRF, 15672-1, 68463-3 ####[facility] LABORATORYCLIA [id number] [address] [place] Urea nitrogen [Mass/Vol] 6 mg/dL Low 7-21 [facility] Comment on above: Order Comment: Speci men Type: BLOOD SPECIMENOrdering Facility: [facility] Address: [address] [place], [place] [address] Performed By: #### 2 4323-8, 30821-9, TSHRF, 91239-0, 47766-3 ####[facility] LABORATORYCLIA [id number] [address] [facility] ED NOTEon 02-24-2025 ED NOTE HNO ID: [id number] Author: HALEY BAUTISTA RN Service: ? Author Type: Registered Nurse Type: ED Notes Filed: 02/24/2025 16:56 Note Text: Called up and spoke to charge nurse elver farris Rn. And [facility] jen will call back. Normal [facility] ED NOTE HNO ID: [id number] Author: HALEY BAUTISTA RN Service: ? Author Type: Registered Nurse Type: ED Notes Filed: 02/24/2025 16:00 Note Text: Pt amb to rr , does feel lightheaded, not her norm.but no headache, no blurry vision. [facility] ED PROV NOTEon 02-24-2025 ED PROV NOTE HNO ID: [id number] Author: KEITH HART MD Service: ? Author Type: Physician [...] up to 200. She was seen in [place]' emergency department 2 days ago. Had blood [...] SPEC WHEN PFRMD 12/05/2013 Colonoscopy done in [facility] FLX W/REMOVAL LESION BY HOT BX [...] requesting repeat blood work. I did review [place] emergency department stay. They did a chest [...] of t (more content not included)... Normal [facility] EKGon 02-24-2025 Electrocardiogram Ventricular Rate : 6 2 BPM Atrial Rate : 62 BPM P-R Interval : 176 ms QRS Duration : 80 ms Q-T Interval : 438 ms QTC Calculation(Bazett) : 444 ms Calculated P Trinity : 54 degrees Calculated R Trinity : 9 degrees Calculated T Trinity : 43 degrees NORMAL SINUS RHYTHM NORMAL ECG No Stemi Confirmed by KEITH HART MD ([id number]) on 02/24/2025 12:57:54 PM NAME : CASANDRA HENRY PID : [id number] : 1940 Gender : Female Race : ORD : Procedure Date : Feb 24 2025 12:53:40 Edit Date : Feb 24 2025 12:57:58 Diagnosis: NORMAL SINUS RHYTHM NORMAL ECG No Stemi Confirmed by KEITH HART MD ([id number]) on 02/24/2025 12:57:54 PM Test Reason : Location : 1 : ER ED Overread By : KEITH HART MD Edited By : KEITH HART MD Referred By : , Acquired by : Elaine alexander [facility] HISTORY PHYSICALon HISTORY PHYSICAL HNO ID: [id number] Author: JEREMIAH DEL ROSARIO MD Service: Hospital Medicine Author Type: Physician Type: H&P Filed: 02/24/2025 20:36 Note Text: DEPARTMENT OF HOSPITAL MEDICINE HISTORY AND PHYSICAL EXAM SERVICE DATE: 02/24/2025 Code Status: Not on file SERVICE TIME: 4:34 PM Primary Care Physician: Sreekanth Cortez DO NIGHT AND WEEKEND COVERAGE: [facility] COVERAGE: Days: [phone], please page attending physician. Nights: 4165-5724, please page [place] [facility] Night coverage pager [phone]. Subjective CHIEF COMPLAINT: Dizziness, High BP HPI: [...] SPEC WHEN PFRMD 12/05/2013 Colonoscopy done in [facility] FLX W/REMOVAL LESION BY HOT BX [...] of distention (more content not included)... Normal [facility] HbA1c (Bld)on 02-24-2025 Average glucose Estimated from glycated hemoglobin (Bld) [Mass/Vol] 108 mg/dL Normal [facility] Comment on above: Order Comment: Johanne soto Type: BLOOD SPECIMENOrdering Facility: [facility] Address: [address] [place] [address] Result Comment: eAG: (Estimated average glucose) is a calculated value from HgbA1c and is agricultural sales representative of the average blood glucose level in the last 2-3 month period. Performed By: #### 5 5454-3 ####[facility] LABCLIA [id number] [place] [address] [place]#### 66647-1 ####[facility] LABORATORYCLIA [id number] [place] [address] [place] HbA1c (Bld) [Mass fraction] 5.4 % Normal 4.3-5.6 [facility] Comment on above: Order Comment: Johanne soto Type: BLOOD SPECIMENOrdering Facility: [facility] Address: [address] [place] [address] Result Comment: Amer [place] Diabetes Association guidelines indicate that patients with HgbA1c in the range 5.7-6.4% are at increased risk for development of diabetes, and intervention by lifestyle modification may be beneficial. HgbA1c greater or equal to 6.5% is considered diagnostic of diabetes. Performed By: #### 5 5454-3 ####[facility] LABCLIA [id number] [address] [place]#### 42626-6 ####[facility] LABORATORYCLIA [id number] [place] [address] [facility] Lipid 1996 panelon 5 Cholesterol [Mass/Vol] 171 mg/dL Normal <200 [facility] Comment on above: Order Comment: Sheilai men Type: BLOOD SPECIMENOrdering Facility: [facility] Address: [address] [place] [address] Result Comment: <200 mg/dL, Desirable 200-239 mg/dL, Borderline high >239 mg/dL, High Performed By: #### 2 4323-8, 91944-7, TSHRF, 75911-3, 98987-0 ####[facility] LABORATORYCLIA [id number] [address] Cholesterol in HDL [Mass/Vol] 62 mg/dL Normal >39 [facility] Comment on above: Order Comment: Sheilai men Type: BLOOD SPECIMENOrdering Facility: [facility] Address: [address] [place] [address] Result Comment: 40-5 9 mg/dL, Acceptable >59 mg/dL, High: Negative risk factor for coronary heart disease <40 mg/dL, Low: Positive risk factor for coronary heart disease Performed By: #### 2 4323-8, 00653-0, TSHRF, 06948-8, 63135-5 ####[facility] LABORATORYCLIA [id number] [place] [address] [facility] Cholesterol in LDL [Mass/Vol] 84 mg/dL Normal <100 [facility] Comment on above: Order Comment: Sheilai men Type: BLOOD SPECIMENOrdering Facility: [facility] Address: [address] [place] [address] Result Comment: <100 mg/dL, Optimal 100-129 mg/dL, Near optimal/above optimal 130-159 mg/dL, Borderline high 160-189 mg/dL, High >189 mg/dL, Very high Secondary prevention optimal LDL Cholesterol levels are recommended to be <70 mg/dL LDL cholesterol is calculated using the Wolff-NIH equation. Performed By: #### 2 4323-8, 07857-2, TSH, 10496-1, ####[facility] LABORATORYCLIA [id number] [place] [address] [place] Cholesterol in LDL/Cholesterol in HDL [Mass ratio] 1.35 {ratio} Normal <2.54 [facility] Comment on above: Order Comment: Speci men Type: BLOOD SPECIMENOrdering Facility: [facility] Address: [address] [place] [address] Result Comment: Refe rence: 1. National Cholesterol Education Program ATP III Guideline At-A-Glance Quick Desk Reference: National Heart, Lung, and Blood Castaner. National Institutes of Health. 2001: NIH Publication No. 01-3305. 2. An International Atherosclerosis Society position paper: global recommendations for the management of dyslipidemia: executive summary, Atherosclerosis. 2014: 232(2):410-413. Performed By: #### 2 4323-8, 87156-6, [facility], 25377-3, ####[facility] LABORATORYCLIA [id number] [place] [address] [place] Cholesterol in VLDL [Mass/Vol] 22 mg/dL Normal <30 [facility] Comment on above: Order Comment: Speci men Type: BLOOD SPECIMENOrdering Facility: [facility] Address: [address] [place] [address] Performed By: #### 2 4323-8, 06418-7, TSH, 87083-7, ####[facility] LABORATORYCLIA [id number] [place] [address] [place] Cholesterol non HDL [Mass/Vol] 109 mg/dL Normal <130 [facility] Comment on above: Order Comment: Speci men Type: BLOOD SPECIMENOrdering Facility: [facility] Address: [address] [place] [address] Result Comment: <130 mg/dL, Optimal 130-159 mg/dL, Near optimal/above optimal 160-189 mg/dL, Borderline high 190-219 mg/dL, High >219 mg/dL, Very high Secondary prevention optimal non HDL Cholesterol levels are recommended to be <100 mg/dL Performed By: #### 2 4323-8, 32503-0, TSHRF, 08613-8, ####[facility] LABORATORYCLIA [id number] [place] [address] [place] Cholesterol.total/Choles terol in HDL [Mass ratio] 2.76 {ratio} Normal <5.10 [facility] Comment on above: Order Comment: Speci men Type: BLOOD SPECIMENOrdering Facility: [facility] Address: [address] [place] [address] Performed By: #### 2 4323-8, 50096-0, TSH, 81632-2, ####[facility] LABORATORYCLIA [id number] [place] [address] [place] FASTING TIME Normal [facility] Comment on above: Order Comment: Speci men Type: BLOOD SPECIMENOrdering Facility: [facility] Address: [address] [place] [address] Result Comment: Unkn own Performed By: #### 2 4323-8, 79476-8, TSHRF, 42711-7, ####[facility] LABORATORYCLIA [id number] [place] [id number] [place] Triglyceride [Mass/Vol] 144 mg/dL Normal <150 [facility] Comment on above: Order Comment: Speci men Type: BLOOD SPECIMENOrdering Facility: [facility] Address: [address] [place] [address] Result Comment: <150 mg/dL, Normal 150-199 mg/dL, Borderline high 200-499 mg/dL, High >499 mg/dL, Very high Performed By: #### 2 4323-8, 58101-5, TSHRF, 68853-5, ####[facility] LABORATORYCLIA [id number] [place] [address] [place] Magnesium [facility] Magnesium [Mass/Vol] 2.1 mg/dL Normal 1.7-2.3 [facility] Comment on above: Order Comment: Speci men Type: BLOOD SPECIMENOrdering Facility: [facility] Address: [address] [place] [address] Performed By: #### 2 4323-8, 03414-0, TSH, 92421-5, ####[facility] LABORATORYCLIA [id number] [place] [address] [place] NT[facility]BNP [facility] Natriuretic peptide.B prohormone N-Terminal [Mass/Vol] 386 pg/mL Normal <450 [facility] Comment on above: Order Comment: Speci men Type: BLOOD SPECIMENOrdering Facility: [facility] Address: [address] [place] [address] Performed By: #### 2 4323-8, 15011-7, [facility], 99303-5, ####[facility] LABORATORYCLIA [id number] [place] [id number] [place] Osmolality Uron 02-24-2025 Osmolality (U) [Osmolality] 375 mosm/kg Normal 50-1200 [facility] Comment on above: Order Comment: Speci men Type: URINE SPECIMENOrdering Facility: [facility] Address: [address] [place] [address] Performed By: #### 2 695-5 ####[facility] LABCLIA [id number] [place] [id number] [place] Sodium ?Tm Ur-sCncon 025 Sodium Unsp time (U) [Moles/Vol] 77 mmol/L Normal 14-216 [facility] Comment on above: Order Comment: Speci men Type: URINE SPECIMEN [facility] Address: [address] [place] [address] Performed By: #### U ACR, 40445-7, UUNR #### [facility] CLIA [id number] [address] [place] [address] [place] TSH W/REFLEX FT4on 5 TSH Qn 1.520 m[IU]/L Normal 0.270-4.200 [facility] Comment on above: Order Comment: Speci men Type: BLOOD SPECIMENOrdering Facility: [facility] Address: [address] [place] [address] Performed By: #### 2 4323-8, 04687-4, TSHRF, 85121-2, 30448-7 ####[facility] LABORATORYCLIA [id number] [place] [address] [place] UREA NITROGEN, RANDOM URINEo n 02-24-2025 UREA NITROGEN,UR,RAN 217 mg/dL Normal 140-1500 [facility] Comment on above: Order Comment: Speci men Type: URINE SPECIMEN [facility] Address: [address] [place] [address] Performed By: #### U ACR, 06179-0, UUNR #### [facility] CLIA [id number] [address] [place] [address] [place] US KIDNEY/BLADDERon 02-25-20 [...] Bilateral renal cysts with no hydronephrosis seen. Supervisor Agricultural Education: DELIA Transcribe Date/Time: Feb 24 2025 9:01P Dictated by : LINDA COURTNEY MD This examination was interpreted and the report reviewed and electronically signed by: LINDA COURTNEY MD on Feb 24 2025 9:03PM EST [id number] Normal [facility] Urinalysis complete panel (U )on 02-24-2025 Bilirubin Ql (U) Negative Normal Negative [facility] Comment on above: Order Comment: Speci men Type: URINE SPECIMENOrdering Facility: [facility] Address: [address] [place] [address] Performed By: #### 2 4356-8 ####LIGUORI LABORATORYCLIA [id number] [address] [place] Clarity (Unsp spec) Slightly Cloudy Abnormal Clear [facility] Comment on above: Order Comment: Speci men Type: URINE SPECIMENOrdering Facility: [facility] Address: [address] [place] [address] Performed By: #### 2 4356-8 ####GONZALES LABORATORYCLIA [id number] [place] [address] [place] Color (U) Yellow Normal Yellow [facility] Comment on above: Order Comment: Speci men Type: URINE SPECIMENOrdering Facility: [facility] Address: [address] [place] [address] Performed By: #### 2 4356-8 ####GONZALES LABORATORYCLIA [id number] [place] [address] [place] Epithelial cells LM.HPF (Urine sed) [#/Area] Few Normal [facility] Comment on above: Order Comment: Speci men Type: URINE SPECIMENOrdering Facility: [facility] Address: [address] [place] [address] Performed By: #### 2 4356-8 ####GONZALES LABORATORYCLIA [id number] [place] [address] [place] [facility] [place] Glucose Test strip (U) [Mass/Vol] Negative Normal Negative [facility] Comment on above: Order Comment: Speci men Type: URINE SPECIMENOrdering Facility: [facility] Address: [facility] [place] [address] Performed By: #### 2 4356-8 ####GONZALES LABORATORYCLIA [id number] [place] [address] [place] Hemoglobin Ql (U) Negative Normal Negative [facility] Comment on above: Order Comment: Speci men Type: URINE SPECIMENOrdering Facility: [facility] Address: [address] [place] [address] Performed By: #### 2 4356-8 ####GONZALES LABORATORYCLIA [id number] [address] [place] Ketones Ql (U) Negative Normal Negative [facility] Comment on above: Order Comment: Speci men Type: URINE SPECIMENOrdering Facility: [facility] Address: [address] [place] [address] Performed By: #### 2 4356-8 ####GONZALES LABORATORYCLIA [id number] [address] Leukocyte esterase Test strip Ql (U) Trace Abnormal Negative [facility] Comment on above: Order Comment: Speci men Type: URINE SPECIMENOrdering Facility: [facility] Address: [address] [place] [address] Performed By: #### 2 4356-8 ####GONZALES LABORATORYCLIA [id number] [place] [address] [place] Nitrite Ql (U) Negative Normal Negative [facility] Comment on above: Order Comment: Speci men Type: URINE SPECIMENOrdering Facility: [facility] Address: [address] [place] [address] Performed By: #### 2 4356-8 ####GONZALES LABORATORYCLIA [id number] [place] [address] [place] pH (U) 7.5 [pH] Normal 5.0-8.0 [facility] Comment on above: Order Comment: Speci men Type: URINE SPECIMENOrdering Facility: [facility] Address: [address] [place] [address] Performed By: #### 2 4356-8 ####GONZALES LABORATORYCLIA [id number] [address] [place] Protein (U) [Mass/Vol] Negative Normal Negative [facility] Comment on above: Order Comment: Speci men Type: URINE SPECIMENOrdering Facility: [facility] Address: [address] [place] [address] Performed By: #### 2 4356-8 ####LIGUORI LABORATORYCLIA [id number] [address] RBC LM.HPF (Urine sed) [#/Area] 0-3 /HPF Normal 0-3 /HPF [facility] Comment on above: Order Comment: Speci men Type: URINE SPECIMENOrdering Facility: [facility] Address: [address] [place] [address] Performed By: #### 2 4356-8 ####LIGUORI LABORATORYCLIA [id number] [address] Specific gravity (U) [Rel density] <=1.005 Low 1.005-1.030 [facility] Comment on above: Order Comment: Speci men Type: URINE SPECIMENOrdering Facility: [facility] Address: [address] [place] [address] Performed By: #### 2 4356-8 ####LIGUORI LABORATORYCLIA [id number] [address] Urobilinogen Ql (U) 0.2 EU/dL Normal 0.2-1.0 EU/dL [facility] Comment on above: Order Comment: Speci men Type: URINE SPECIMENOrdering Facility: [facility] Address: [address] [place] [address] Performed By: #### 2 4356-8 ####LIGUORI LABORATORYCLIA [id number] [address] [place] WBC LM.HPF (Urine sed) [#/Area] 0-5 /HPF Normal 0-5 /HPF [facility] Comment on above: Order Comment: Speci men Type: URINE SPECIMENOrdering Facility: [facility] Address: [address] [place] [address] Performed By: #### 2 4356-8 ####LIGUORI LABORATORYCLIA [id number] [address] 12 Lead EKGon 02-22-2025 12 Lead EKG [facility] Cardiovascular Services [address] [place] [address] 12 Lead EKG 02/22/25 0708 MR#: [id number] Acct: [id number] Name: CASANDRA HENRY Rep #: [id number] : 1940 84 From: Sidney Lewis MD [...] ECG Confirmed by EDNA TAYLOR, SIDNEY ([id number]), metropolitan editor CHYNA RUIZ ([id number]) on 02/26/2025 10:25:55 AM Referred By: Confirmed By: SIDNEY LEWIS MD 02/26/25 1025 Date Sidney Lewis MD CC: Dr. Devaughn Farmer DO; Dr. Sreekanth Cortez DO Signed Normal [facility] Absolute lymphocyte countOrd ered By: Devaughn Farmer on 02-22-2025 Lymphocytes Auto (Unsp spec) [#/Vol] 1.86 10*3/uL 0.83-4.51 [facility] Absolute neutrophil countOrd ered By: Devaughnmakenzie Farmer on 02-22-2025 Neutrophils (Bld) [#/Vol] 5.1 10*3/uL 2.0-7.7 [facility] Anion gap in Serum or Plasma Ordered By: Devaughn Alyson on 02-22-2025 Anion gap [Moles/Vol] 12 mmol/L 5-15 [facility] Automated lymphocyte count a s percentage of total leukocytesOrdered By: Devaughnmakenzie Farmer on 02-22-2025 Lymphocytes/100 WBC Auto (Unsp spec) 21.6 % 19-41 [facility] BUN/creatinine ratioOrdered By: Jfk [facility] Rehabilitation InstitutemalouRichardBoris on 02-22-2025 Urea nitrogen/Creatinine [Mass ratio] 9.8 mg/mg Low 10-20 [facility] Basic Metabolic Profile (BMP )on 02-22-2025 BUN/CRE 9.8 RATIO Low 10-20 [facility] Comment on above: Performed By: #### L 500.2500, L503.7505, L501.4021, L100.0100 #### [facility] [address] [place], [address] Calcium [Mass/Vol] 9.0 mg/dL Normal 7.6-11.0 [facility] Comment on above: Performed By: #### L 500.2500, L503.7505, L501.4021, L100.0100 #### [facility] [address] [place], [address] Chloride [Moles/Vol] 100 mmol/L Normal 98-108 [facility] Comment on above: Performed By: #### L 500.2500, L503.7505, L501.4021, L100.0100 #### [facility] [address] [place], [address] CO2 [Moles/Vol] 22.8 mmol/L Normal 21.0-32.0 [facility] Comment on above: Performed By: #### L 500.2500, L503.7505, L501.4021, L100.0100 #### [facility] [address] [place], [address] Creatinine [Mass/Vol] 0.78 mg/dL Normal 0.70-1.20 [facility] Comment on above: Performed By: #### L 500.2500, L503.7505, L501.4021, L100.0100 #### [facility] [address] [place], [address] ECRCL 46.32 ml/min Low 50-250 [facility] Comment on above: Performed By: #### L 500.2500, L503.7505, L501.4021, L100.0100 #### [facility] [address] [place], [address] GAP 12 Normal 5-15 [facility] Comment on above: Performed By: #### L 500.2500, L503.7505, L501.4021, L100.0100 #### [facility] [address] [place], [address] GFR/1.73 sq M.predicted among non-blacks MDRD (S/P/Bld) [Vol rate/Area] 76 mL/min/{1.73_m2} Normal >60 [facility] Comment on above: Result Comment: mL/m in/1.73m2 CKD-EPI Creatinine Equation (2020) Performed By: #### L 500.2500, L503.7505, L501.4021, L100.0100 #### [facility] [address] [place], [address] Glucose [Mass/Vol] 114 mg/dL High 70-99 [facility] Comment on above: Performed By: #### L 500.2500, L503.7505, L501.4021, L100.0100 #### [facility] [address] [place], [address] Potassium [Moles/Vol] 4.0 mmol/L Normal 3.3-5.1 [facility] Comment on above: Performed By: #### L 500.2500, L503.7505, L501.4021, L100.0100 #### [facility] [address] [place], [address] Sodium [Moles/Vol] 134 mmol/L Normal 133-145 [facility] Comment on above: Performed By: #### L 500.2500, L503.7505, L501.4021, L100.0100 #### [facility] [address] [place], [address] Urea nitrogen [Mass/Vol] 8 mg/dL Normal 4-19 [facility] Comment on above: Performed By: #### L 500.2500, L503.7505, L501.4021, L100.0100 #### [facility] [address] [place], [address] Basophil percentageOrdered B y: Devaughn Farmer on 02-22-2025 Basophils/100 WBC (Bld) 0.5 % 0-1 [facility] Brain/Head without Contrasto n 02-22-2025 Brain/Head without Contrast [facility] Imaging Services [address] [address] Brain/Head without Contrast MR#: [id number] Acct: [id number] Name: CASANDRA HENRY Rep #: [id number] : 1940 F 84 From: Pasquale Mendoza MD PCP: Dr. Sreekanth Cortez, DO Status: REG ER Study: Brain/Head without Contrast Date of Exam: 11/14 Exam# [id number] Ordering Dr: Devaughn Farmer DO EXAM: NONCONTRAST [...] Devaughn Farmer, DO; Dr. Sreekanth Cortez, DO Supervisor Agricultural Education: Signed Normal [facility] CBC W/Diff, Automatedon 07-0 Absolute Lymph 1.86 X10 3/uL Normal 0.83-4.51 [facility] Comment on above: Performed By: #### L 500.2500, L503.7505, L501.4021, L100.0100 #### [facility] [address] [place], [address] Absolute Neut 5.1 X10 3/uL Normal 2.0-7.7 [facility] Comment on above: Performed By: #### L 500.2500, L503.7505, L501.4021, L100.0100 #### [facility] [address] [place], [address] Basophils/100 WBC (Bld) 0.5 % Normal 0-1 [facility] Comment on above: Performed By: #### L 500.2500, L503.7505, L501.4021, L100.0100 #### [facility] [address] [place], [address] Eosinophils/100 WBC (Bld) 7.3 % High 0-5 [facility] Comment on above: Performed By: #### L 500.2500, L503.7505, L501.4021, L100.0100 #### [facility] [address] [place], [address] Erythrocyte distribution width (RBC) [Ratio] 12.1 % Normal 11.6-14.6 [facility] Comment on above: Performed By: #### L 500.2500, L503.7505, L501.4021, L100.0100 #### [facility] [address] [place], [address] Hematocrit (Bld) [Volume fraction] 36.6 % Low 37-47 [facility] Comment on above: Performed By: #### L 500.2500, L503.7505, L501.4021, L100.0100 #### [facility] [address] [place], [address] Hemoglobin (Bld) [Mass/Vol] 12.6 g/dL Normal 12.0-15.0 [facility] Comment on above: Performed By: #### L 500.2500, L503.7505, L501.4021, L100.0100 #### [facility] [address] [place], [address] IG% 0.500 Normal 0.0-0.9 [facility] Comment on above: Result Comment: IG% - Immature Granulocytes (promyelocytes, myelocytes and metamyelocytes) > 1% indicates that a LEFT SHIFT is Present. Performed By: #### L 500.2500, L503.7505, L501.4021, L100.0100 #### [facility] [address] [place], [address] Lymphocytes/100 WBC (Bld) 21.6 % Normal 19-41 [facility] Comment on above: Performed By: #### L 500.2500, L503.7505, L501.4021, L100.0100 #### [facility] [address] [place], [address] MCH (RBC) [Entitic mass] 30.4 pg Normal 27.0-32.0 [facility] Comment on above: Performed By: #### L 500.2500, L503.7505, L501.4021, L100.0100 #### [facility] [address] [place], [address] MCHC (RBC) [Mass/Vol] 34.4 g/dL Normal 32-36 [facility] Comment on above: Performed By: #### L 500.2500, L503.7505, L501.4021, L100.0100 #### [facility] [address] [place], [address] MCV (RBC) [Entitic vol] 88.4 fL Normal 81-[address] [facility] Comment on above: Performed By: #### L 500.2500, L503.7505, L501.4021, L100.0100 #### [facility] [address] [place], [address] Monocytes/100 WBC (Bld) 11.4 % High 0-10 [facility] Comment on above: Performed By: #### L 500.2500, L503.7505, L501.4021, L100.0100 #### [facility] [address] [place], [address] Neutrophils/100 WBC (Bld) 58.7 % Normal 47-70 [facility] Comment on above: Performed By: #### L 500.2500, L503.7505, L501.4021, L100.0100 #### [facility] [address] [place], [address] Nucleated RBC (Bld) [#/Vol] 0 10*3/uL Normal 0-5 [facility] Comment on above: Performed By: #### L 500.2500, L503.7505, L501.4021, L100.0100 #### [facility] [address] [place], [address] Platelet mean volume (Bld) [Entitic vol] 9.4 fL Normal 6.2-12.0 [facility] Comment on above: Performed By: #### L 500.2500, L503.7505, L501.4021, L100.0100 #### [facility] [address] [place], [address] Platelets (Bld) [#/Vol] 285 10*3/uL Normal 150-450 [facility] Comment on above: Performed By: #### L 500.2500, L503.7505, L501.4021, L100.0100 #### [facility] [address] [place], [address] RBC (Bld) [#/Vol] 4.14 10*6/uL Low 4.2-5.4 [facility] Comment on above: Performed By: #### L 500.2500, L503.7505, L501.4021, L100.0100 #### [facility] [address] [place], [address] RDW SD 39.2 fl Normal 35.1-43.9 [facility] Comment on above: Performed By: #### L 500.2500, L503.7505, L501.4021, L100.0100 #### [facility] [address] [place], [address] WBC (Bld) [#/Vol] 8.6 10*3/uL Normal 4.4-11.0 [facility] Comment on above: Performed By: #### L 500.2500, L503.7505, L501.4021, L100.0100 #### [facility] [address] [place], [address] Carbon dioxide, total [Moles /volume] in Central venous bloodOrdered By: Devaughn Farmer on 02-22-2025 CO2 [Moles/Vol] 22.8 mmol/L 21.0-32.0 [facility] Chest PA and Lateralon 02-22 Chest PA and Lateral [facility] Imaging Services [address] [place] [address] Chest PA and Lateral MR#: [id number] Acct: [id number] Name: CASANDRA HENRY Rep #: [id number] : 1940 F 84 From: Pasquale Mendoza MD PCP: Dr. Sreekanth Cortez DO Status: REG ER Study: Chest PA and Lateral Date of Exam: 02/22/25 Exam# [id number] Ordering Dr: Devaughn Farmer DO PROCEDURE: CHEST [...] Devaughn Farmer DO; Dr. Sreekanth Cortez DO Supervisor Agricultural Education: Signed Normal [facility] Chloride assayOrdered By: Orlando Farmer on 02-22-2025 Chloride [Moles/Vol] 100 mmol/L 98-108 [facility] Emergency Department Summary on 02-22-2025 Emergency Department Summary [facility] Medical Records Department [address] [place] [address] Emergency Department Summary 02/22/25 MR#: [id number] Acct: [id number] Name: CASANDRA HENRY Rep #: [id number] : 1940 84 From: Devaughn Farmer DO [...] intact Psych: Cooperative, appropriate mood and affect [facility] Medical History (Updated 02/22/25 @ 07:43 by [...] 194/98. Diffe (more content not included)... Normal [facility] Eosinophil percentageOrdered By: Devaughn Farmer on 02-22-2025 Eosinophils/100 WBC (Bld) 7.3 % High 0-5 [facility] Erythrocyte distribution wid th ratioOrdered By: Jfk Johnson Rehabilitation InstituteAlyson on 02-22-2025 Erythrocyte distribution width (RBC) [Ratio] 12.1 % 11.6-14.6 [facility] Erythrocyte distribution wid th standard deviationOrdered By: Jfk Johnson Rehabilitation Instituteshannan Escalante on 02-22-2025 Erythrocyte distribution width (RBC) [Ratio] 39.2 fl 35.1-43.9 [facility] Glomerular filtration rate ( GFR) estimation/1.73 sq m using serum, plasma, or whole bOrdered By: Devaughnmakenzie Farmer on 02-22-2025 GFR/1.73 sq M.predicted among non-blacks MDRD (S/P/Bld) [Vol rate/Area] 76 mL/min/{1.73_m2} >60 [facility] Comment on above: mL/min/1.73m2 CKD-EP I Creatinine Equation (2020) Hematocrit Auto (Bld) [Volum e fraction]Ordered By: Devaughn Farmer on 02-22-2025 Hematocrit (Bld) [Volume fraction] 36.6 % Low 37-47 [facility] Hemoglobin measurementOrdere d By: Devaughn Farmer on 02-22-2025 Hemoglobin (Bld) [Mass/Vol] 12.6 g/dL 12.0-15.0 [facility] Immature granulocytes/100 WB C Auto (Bld)Ordered By: Devaughn Farmer on 02-22-2025 Immature granulocytes/100 WBC (Bld) 0.500 % 0.0-0.9 [facility] Comment on above: IG% - Immature Granu locytes (promyelocytes, myelocytes and metamyelocytes) > 1% indicates that a LEFT SHIFT is Present. L499.0042on 02-22-2025 Trop T High Sen Normal <=14 [facility] Comment on above: Result Comment: Guanakito freitas via OM: MD Ordered Performed By: #### L 499.0042 #### [facility] [address] [place], [address] L501.4021on 02-22-2025 Trop T High Sen 12 ng/L Normal <=14 [facility] Comment on above: Performed By: #### L 500.2500, L503.7505, L501.4021, L100.0100 #### [facility] [address] [place], [address] L503.7505on 02-22-2025 Natriuretic peptide B (Bld) [Mass/Vol] 210 pg/mL Normal <=1800 [facility] Comment on above: Result Comment: Hear t Failure Unlikely: < 300 pg/mL Heart Failure Likely < 50 Years: > 450 pg/mL 50-75 Years: > 900 pg/mL >75 Years: > 1800 pg/mL Performed By: #### L 500.2500, L503.7505, L501.4021, L100.0100 #### [facility] [address] [place], [address] MCV (mean corpuscular volume ) determinationOrdered By: Devaughn Farmer on 02-22-2025 MCV (RBC) [Entitic vol] 88.4 fL 81-99 [facility] Mean corpuscular hemoglobin (MCH) determinationOrdered By: [facility] on 02-22-2025 MCH (RBC) [Entitic mass] 30.4 pg 27.0-32.0 [facility] Mean corpuscular hemoglobin concentration (MCHC) determinationOrdered By: Devaughn Farmer on 02-22-2025 MCHC (RBC) [Mass/Vol] 34.4 g/dL 32-36 [facility] Mean platelet volume determi nationOrdered By: Devaughn Farmer on 02-22-2025 Platelet mean volume (Bld) [Entitic vol] 9.4 fL 6.2-12.0 [facility] Monocyte percentageOrdered B y: Devaughn Farmer on 02-22-2025 Monocytes/100 WBC (Bld) 11.4 % High 0-10 [facility] Natriuretic peptide.B prohor ofelia N-Terminal [Mass/volume] in Serum or PlasmaOrdered By: Devaughn Farmer on 02-22-2025 Natriuretic peptide.B prohormone N-Terminal [Mass/Vol] 210 pg/mL <1800 [facility] Comment on above: Heart Failure Unlike ly: < 300 pg/mLHeart Failure Likely< 50 Years: > 450 pg/mL50-75 Years: > 900 pg/mL>75 Years: > 1800 pg/mL Neutrophil percentageOrdered By: Devaughn Farmer on 02-22-2025 Neutrophils/100 WBC (Bld) 58.7 % 47-70 [facility] Nucleated red blood cell per centageOrdered By: Devaughn Farmer on 02-22-2025 Nucleated RBC/100 WBC (Bld) [Ratio] 0 % 0-5 [facility] Platelet countOrdered By: Orlando Farmer on 02-22-2025 Platelets (Bld) [#/Vol] 285 10*3/uL 150-450 [facility] Potassium measurement (mass/ volume)Ordered By: Devaughn Farmer on 02-22-2025 Potassium (Unsp spec) [Mass/Vol] 4.0 mmol/L 3.3-5.1 [facility] RBC Auto (Bld) [#/Vol]Ordere d By: Devaughn Farmer on 02-22-2025 RBC (Bld) [#/Vol] 4.14 10*6/uL Low 4.2-5.4 [facility] Serum creatinine measurement (mass/volume)Ordered By: Devaughn Farmer on 02-22-2025 Creatinine [Mass/Vol] 0.78 mg/dL 0.70-1.20 [facility] Serum glucose measurement (m ass/volume)Ordered By: Devaughn Farmer on 02-22-2025 Glucose [Mass/Vol] 114 mg/dL High 70-99 [facility] Serum or plasma calcium lillie urement (mass/volume)Ordered By: Devaughn Escalante on 02-22-2025 Calcium [Mass/Vol] 9.0 mg/dL 7.6-11.0 [facility] Serum or plasma urea nitroge n measurement (mass/volume)Ordered By: Devaughn Farmer on 02-22-2025 Urea nitrogen [Mass/Vol] 8 mg/dL 4-19 [facility] Sodium levelOrdered By: Carols Farmer on 02-22-2025 Sodium [Moles/Vol] 134 mmol/L 133-145 [facility] Troponin T.cardiac [Mass/vol ume] in Serum or Plasma by High sensitivity methodOrdered By: Devaughn Farmer on 02-22-2025 Troponin T.cardiac High sensitivity method [Mass/Vol] 12 ng/L <14 [facility] White blood cell (WBC) count Ordered By: Devaughn Farmer on 02-22-2025 WBC (Bld) [#/Vol] 8.6 10*3/uL 4.4-11.0 [facility] Basic metabolic 2000 panelon 02-20-2025 Anion gap [Moles/Vol] 12 mmol/L 8 - 15 mmol/L [facility] Calcium [Mass/Vol] 9.5 mg/dL 8.5 - 10. 2 mg/dL [facility] Chloride [Moles/Vol] 100 mmol/L 98 - 10 7 mmol/L [facility] CO2 [Moles/Vol] 23 mmol/L 22 - 30 mmol/L [facility] Creatinine [Mass/Vol] 0.82 mg/dL 0.58 - 0.96 mg/dL [facility] GFR/1.73 sq M.predicted among non-blacks MDRD (S/P/Bld) [Vol rate/Area] 72 mL/min/{1.73_m2} - PINF [facility] Comment on above: Estimated Glomerular Filtration Rate [...] 111 mg/dL High 74 - 99 mg/dL [facility] Comment on above: The [place] [employer] (ADA) provides guidance for [...] Standards of Medical Care in Diabetes 2016, [place] [employer]. Diabetes Care. 2016.39(Suppl 1). Interpretation and review of laboratory results Abnormal [facility] Potassium [Moles/Vol] 4.1 mmol/L 3.7 - 5.1 mmol/L [facility] Sodium [Moles/Vol] 135 mmol/L Low 136 - 144 mmol/L [facility] Urea nitrogen [Mass/Vol] 11 mg/dL 7 - 21 mg/d L [facility] Iron and Iron binding capaci ty panelon 02-20-2025 Interpretation and review of laboratory results Normal [facility] Iron [Mass/Vol] 64 ug/dL 41 - 186 ug/dL [facility] Iron binding capacity [Mass/Vol] 312 ug/dL 232 - 386 ug/dL [facility] Iron/TIBC [Molar ratio] 20.5 % 15.0 - 57.0 % [facility] No Panel Informationon 02-20 [facility] Basic metabolic 2000 panelon 02-19-2025 Anion gap [Moles/Vol] 12 mmol/L Normal 8-15 [facility] Comment on above: Order Comment: Speci men Type: BLOOD SPECIMEN [facility]ing Facility: [facility] Address: [address] [place] [address] Performed By: #### 3 024-7, 3016-3, 85480-7, 01289-2 #### [facility] CLIA [id number] [address] [place] [address] [place] Calcium [Mass/Vol] 9.5 mg/dL Normal 8.5-10.2 [facility] Comment on above: Order Comment: Speci men Type: BLOOD SPECIMEN Ordering Facility: [facility] Address: [address] [place] [address] Performed By: #### 3 024-7, 3016-3, 31066-4, 00522-7 #### [facility] CLIA [id number] [address] [place] [address] [place] Chloride [Moles/Vol] 100 mmol/L Normal 98-107 [facility] Comment on above: Order Comment: Speci men Type: BLOOD SPECIMEN Ordering Facility: [facility] Address: [address] [place] [address] Performed By: #### 3 024-7, 3016-3, 63596-1, 01698-1 #### [facility] CLIA [id number] [address] [place] [address] [place] CO2 [Moles/Vol] 23 mmol/L Normal 22-30 [facility] Comment on above: Order Comment: Speci men Type: BLOOD SPECIMEN Ordering Facility: [facility] Address: [address] [place] [address] Performed By: #### 3 024-7, 3016-3, 47800-5, 97041-4 #### [facility] CLIA [id number] [address] [id number] [address] [place] Creatinine [Mass/Vol] 0.82 mg/dL Normal 0.58-0.96 [facility] Comment on above: Order Comment: Johanne soto Type: BLOOD SPECIMEN Ordering Facility: [facility] Address: [address] [place] [address] Performed By: #### 3 024-7, 3016-3, 62749-5, 00785-5 #### [facility] CLIA [id number] [address] [place] [address] [place] [facility] Creatinine and Glomerular filtration rate.predicted panel (S/P/Bld) 72 mL/min/1.73m??? Normal >=60 [facility] Comment on above: Order Comment: Johanne soto Type: BLOOD SPECIMEN Ordering Facility: [facility] Address: [address] [place] [address] Result Comment: Hina mated Glomerular Filtration Rate [...] GFR. Performed By: #### 3 024-7, 3016-3, 59109-0, 26188-0 #### [facility] CLIA [id number] [address] [place] [address] [place] Glucose [Mass/Vol] 111 mg/dL High 74-99 [facility] Comment on above: Order Comment: Johanne soto Type: BLOOD SPECIMEN Ordering Facility: [facility] Address: [address] [place] [address] Result Comment: The [place] Diabetes [employer] (ADA) provides guidance for cutoff [...] Standards of Medical Care in Diabetes 2016, [place] [employer]. Diabetes Care. 2016.39(Suppl 1). Performed By: #### 3 024-7, 3016-3, 12366-0, 49888-6 #### [facility] CLIA [id number] [address] [place] [address] [place] Potassium [Moles/Vol] 4.1 mmol/L Normal 3.7-5.1 [facility] Comment on above: Order Comment: Speci men Type: BLOOD SPECIMEN Ordering Facility: [facility] Address: [address] [place] [address] Performed By: #### 3 024-7, 6-3, 76573-6, 85633-2 #### [facility] CLIA [id number] [address] [place] [address] [place] Sodium [Moles/Vol] 135 mmol/L Low 136-144 [facility] Comment on above: Order Comment: Sheilai charles Type: BLOOD SPECIMEN Ordering Facility: [facility] Address: [address] [place] [address] Performed By: #### 3 024-7, 6-3, 18284-7, 49397-8 #### [facility] CLIA [id number] [address] [place] [address] [place] Urea nitrogen [Mass/Vol] 11 mg/dL Normal 7-21 [facility] Comment on above: Order Comment: Speci men Type: BLOOD SPECIMEN Ordering Facility: [facility] Address: [address] [place] [address] Performed By: #### 3 024-7, 3016-3, 33924-4, 97867-9 #### [facility] CLIA [id number] [address] [place] [address] [place] CBC W Auto Differential pane l (Bld)on 02-19-2025 Basophils (Bld) [#/Vol] 0.05 10*3/uL [facility] Basophils/100 WBC (Bld) 0.6 % C [facility] Differential cell count method Nom (Bld) Auto [facility] Eosinophils (Bld) [#/Vol] 0.51 10*3/uL High [facility] Eosinophils/100 WBC (Bld) 6.1 % [facility] Erythrocyte distribution width (RBC) [Ratio] 12.4 % 11.5 - 15.0 % [facility] Hematocrit (Bld) [Volume fraction] 38.1 % 36.0 - 46.0 % [facility] Hemoglobin (Bld) [Mass/Vol] 13.1 g/dL 11.5 - 15.5 g/dL [facility] Immature granulocytes (Bld) [#/Vol] [facility] Immature granulocytes/100 WBC (Bld) 0.2 % [facility] Interpretation and review of laboratory results Abnormal [facility] Lymphocytes (Bld) [#/Vol] 1.8 10*3/uL [facility] Lymphocytes/100 WBC (Bld) 21.6 % [facility] MCH (RBC) [Entitic mass] 31.3 pg 26. 0 - 34.0 pg [facility] MCHC (RBC) [Mass/Vol] 34.4 g/dL 30.5 - 36.0 g/dL [facility] MCV (RBC) [Entitic vol] 90.9 fL 80.0 - 100.0 fL [facility] Monocytes (Bld) [#/Vol] 0.86 10*3/uL [facility] Monocytes/100 WBC (Bld) 10.3 % C [facility] Neutrophils (Bld) [#/Vol] 5.09 10*3/uL [facility] Neutrophils/100 WBC (Bld) 61.2 % [facility] Nucleated RBC (Bld) [#/Vol] [facility] Nucleated RBC/100 WBC (Bld) [Ratio] 0 % /100 WBC [facility] Platelet mean volume (Bld) [Entitic vol] 11.2 fL 9.0 - 12.7 fL [facility] Platelets (Bld) [#/Vol] 242 10*3/uL [facility] RBC (Bld) [#/Vol] 4.19 10*6/uL 3.90 - 5.2 0 m/uL [facility] WBC (Bld) [#/Vol] 8.33 10*3/uL [facility] Basophils (Bld) [#/Vol] 0.05 10*3/uL Normal <0.11 [facility] Comment on above: Order Comment: Speci men Type: BLOOD SPECIMEN Ordering Facility: [facility] Address: [address] [place] [address] Performed By: #### 3 024-7, 3016-3, 98787-8, 83113-4 #### [facility] CLIA [id number] [address] [place] [address] [place] Basophils/100 WBC (Bld) 0.6 % Normal C [facility] Comment on above: Order Comment: Speci men Type: BLOOD SPECIMEN Ordering Facility: [facility] Address: [address] [place] [address] Performed By: #### 3 024-7, 3016-3, 45295-3, 83806-4 #### [facility] CLIA [id number] [address] [place] [address] [place] Differential cell count method Nom (Bld) Auto Normal [facility] Comment on above: Order Comment: Speci men Type: BLOOD SPECIMEN Ordering Facility: [facility] Address: [address] [place] [address] Performed By: #### 3 024-7, 3016-3, 26430-9, 89877-3 #### [facility] CLIA [id number] [address] [place] [address] [place] Eosinophils (Bld) [#/Vol] 0.51 10*3/uL High <0.46 [facility] Comment on above: Order Comment: Speci men Type: BLOOD SPECIMEN Ordering Facility: [facility] Address: [address] [place] [address] Performed By: #### 3 024-7, 3016-3, 30880-2, 79290-9 #### [facility] CLIA [id number] [address] [place] [address] [place] Eosinophils/100 WBC (Bld) 6.1 % Normal [facility] Comment on above: Order Comment: Speci men Type: BLOOD SPECIMEN Ordering Facility: [facility] Address: [address] [place] [address] Performed By: #### 3 024-7, 6-3, 91399-9, 88564-8 #### [facility] CLIA [id number] [address] [place] [address] [place] Erythrocyte distribution width (RBC) [Ratio] 12.4 % Normal 11.5-15.0 [facility] Comment on above: Order Comment: Speci men Type: BLOOD SPECIMEN Ordering Facility: [facility] Address: [address] [place] [address] Performed By: #### 3 024-7, 6-3, 10827-9, 32213-7 #### [facility] CLIA [id number] [address] [place] [address] [place] Hematocrit (Bld) [Volume fraction] 38.1 % Normal 36.0-46.0 [facility] Comment on above: Order Comment: Speci men Type: BLOOD SPECIMEN Ordering Facility: [facility] Address: [address] [place] [address] Performed By: #### 3 024-7, 6-3, 97465-5, 00595-2 #### [facility] CLIA [id number] [address] [place], [place] [address] [place] Hemoglobin (Bld) [Mass/Vol] 13.1 g/dL Normal 11.5-15.5 [facility] Comment on above: Order Comment: Speci men Type: BLOOD SPECIMEN Ordering Facility: [facility] Address: [address] [place] [address] Performed By: #### 3 024-7, 3016-3, 57341-5, 20970-6 #### [facility] CLIA [id number] [address] [place] [address] [place] Immature granulocytes (Bld) [#/Vol] 10*3/uL Normal <0.10 [facility] Comment on above: Order Comment: Speci men Type: BLOOD SPECIMEN Ordering Facility: [facility] Address: [address] [place] [address] Performed By: #### 3 024-7, 3016-3, 38358-3, 11570-4 #### [facility] CLIA [id number] [address] [place] [address] [place] Immature granulocytes/100 WBC (Bld) 0.2 % Normal [facility] Comment on above: Order Comment: Speci men Type: BLOOD SPECIMEN Ordering Facility: [facility] Address: [address] [place] [address] Performed By: #### 3 024-7, 3016-3, 27886-6, 92311-7 #### [facility] CLIA [id number] [address] [place] [address] [place] Lymphocytes (Bld) [#/Vol] 1.80 10*3/uL Normal 1.00-4.00 [facility] Comment on above: Order Comment: Speci men Type: BLOOD SPECIMEN Ordering Facility: [facility] Address: [address] [place] [address] Performed By: #### 3 024-7, 3016-3, 45795-3, 33113-4 #### [facility] CLIA [id number] [address] [place] [address] [place] Lymphocytes/100 WBC (Bld) 21.6 % Normal [facility] Comment on above: Order Comment: Speci men Type: BLOOD SPECIMEN Ordering Facility: [facility] Address: [address] [place] [address] Performed By: #### 3 024-7, 3016-3, 86314-5, 05620-9 #### [facility] CLIA [id number] [address] [place] [address] [place] MCH (RBC) [Entitic mass] 31.3 pg Normal 26.0-34.0 [facility] Comment on above: Order Comment: Speci men Type: BLOOD SPECIMEN Ordering Facility: [facility] Address: [address] [place] [address] Performed By: #### 3 024-7, 6-3, 86068-5, 02275-1 #### [facility] CLIA [id number] [address] [place] [address] [place] MCHC (RBC) [Mass/Vol] 34.4 g/dL Normal 30.5-36.0 [facility] Comment on above: Order Comment: Speci men Type: BLOOD SPECIMEN Ordering Facility: [facility] Address: [address] [place] [address] Performed By: #### 3 024-7, 3016-3, 03987-2, 37996-9 #### [facility] CLIA [id number] [address] [place] [address] [place] MCV (RBC) [Entitic vol] 90.9 fL Normal 80.0-100.0 C [facility] Comment on above: Order Comment: Speci men Type: BLOOD SPECIMEN Ordering Facility: [facility] Address: [address] [place] [address] Performed By: #### 3 024-7, 6-3, 57330-1, 08714-4 #### [facility] CLIA [id number] [address] [place] [address] [place] Monocytes (Bld) [#/Vol] 0.86 10*3/uL Normal <0.87 [facility] Comment on above: Order Comment: Speci men Type: BLOOD SPECIMEN Ordering Facility: [facility] Address: [address] [place] [address] Performed By: #### 3 024-7, 3016-3, 89628-3, 19201-9 #### [facility] CLIA [id number] [address] [place] [address] [place] Monocytes/100 WBC (Bld) 10.3 % Normal [facility] Comment on above: Order Comment: Speci men Type: BLOOD SPECIMEN Ordering Facility: [facility] Address: [address] [place] [address] Performed By: #### 3 024-7, 3016-3, 21066-8, 14844-9 #### [facility] CLIA [id number] [address] [place] [address] [place] Neutrophils (Bld) [#/Vol] 5.09 10*3/uL Normal 1.45-7.50 [facility] Comment on above: Order Comment: Speci men Type: BLOOD SPECIMEN Ordering Facility: [facility] Address: [address] [place] [address] Performed By: #### 3 024-7, 3016-3, 70048-7, 76206-9 #### [facility] CLIA [id number] [address] [place] [address] [place] Neutrophils/100 WBC (Bld) 61.2 % Normal [facility] Comment on above: Order Comment: Speci men Type: BLOOD SPECIMEN Ordering Facility: [facility] Address: [address] [place] [address] Performed By: #### 3 024-7, 3016-3, 18582-3, 65420-5 #### [facility] CLIA [id number] [address] [place] [address] [place] Nucleated RBC (Bld) [#/Vol] 10*3/uL Normal <0.01 [facility] Comment on above: Order Comment: Speci men Type: BLOOD SPECIMEN Ordering Facility: [facility] Address: [address] [place] [address] Performed By: #### 3 024-7, 3016-3, 95102-1, 88531-8 #### [facility] CLIA [id number] [address] [place] [address] [place] Nucleated RBC/100 WBC (Bld) [Ratio] 0.0 /100 WBC Normal [facility] Comment on above: Order Comment: Speci men Type: BLOOD SPECIMEN Ordering Facility: [facility] Address: [address] [place] [address] Performed By: #### 3 024-7, 3016-3, 38650-6, 97084-2 #### [facility] CLIA [id number] [address] [place] [address] [place] Platelet mean volume (Bld) [Entitic vol] 11.2 fL Normal 9.0-12.7 [facility] Comment on above: Order Comment: Speci men Type: BLOOD SPECIMEN Ordering Facility: [facility] Address: [address] [place] [address] Performed By: #### 3 024-7, 3016-3, 27268-5, 95284-1 #### [facility] CLIA [id number] [address] [place] [address] [place] Platelets (Bld) [#/Vol] 242 10*3/uL Normal 150-400 [facility] Comment on above: Order Comment: Speci men Type: BLOOD SPECIMEN Ordering Facility: [facility] Address: [address] [place] [address] Performed By: #### 3 024-7, 3016-3, 63033-9, 91018-3 #### [facility] CLIA [id number] [address] [place] [address] [place] RBC (Bld) [#/Vol] 4.19 10*6/uL Normal 3.90-5.20 [facility] Comment on above: Order Comment: Speci men Type: BLOOD SPECIMEN Ordering Facility: [facility] Address: [address] [id number] Performed By: #### 3 024-7, 3016-3, 21020-1, 84989-7 #### [facility] CLIA [id number] [address] [place] [address] [place] WBC (Bld) [#/Vol] 8.33 10*3/uL Normal 3.70-11.00 [facility] Comment on above: Order Comment: Speci men Type: BLOOD SPECIMEN Ordering Facility: [facility] Address: [address] [place] [address] Performed By: #### 3 024-7, 3016-3, 49011-5, 96261-8 #### [facility] CLIA [id number] [address] [place] [address] [place] CNOVon 02-19-2025 [facility] ELAINECASANDRA ([id number]) 1940 F Date Time Provider Department 02/19/25 12:20 PM [facility] During your visit today, we recorded the following information about you: Pulse Respiration Blood pressure Weight 68/minute 16/minute 170/80 64 kg Margoth Chavez APRN.THIRD RIGGER 02/19/2025 5:54 PM Signed This is a [...] SPEC WHEN PFRMD 12/05/2013 Colonoscopy done in [facility] FLX W/REMOVAL LESION BY HOT BX [...] acute distress (more content not included)... Normal [facility] Iron and Iron binding capaci ty panelon 02-19-2025 Iron [Mass/Vol] 64 ug/dL Normal 41-186 [facility] Comment on above: Order Comment: Speci men Type: BLOOD SPECIMEN Ordering Facility: [facility] Address: [address] [place] [address] Performed By: #### 3 024-7, 3016-3, 86765-8, 64914-9 #### [facility] CLIA [id number] [address] [place] [address] [place] Iron binding capacity [Mass/Vol] 312 ug/dL Normal 232-386 [facility] Comment on above: Order Comment: Speci men Type: BLOOD SPECIMEN Ordering Facility: [facility] Address: [address] [place] [address] Performed By: #### 3 024-7, 3016-3, 59331-0, 58988-1 #### [facility] CLIA [id number] [address] [place] [address] [place] Iron/TIBC [Molar ratio] 20.5 % Normal 15.0-57.0 C [facility] Comment on above: Order Comment: Speci men Type: BLOOD SPECIMEN Ordering Facility: [facility] Address: [address] [place] [address] Performed By: #### 3 024-7, 3016-3, 03472-1, 67525-8 #### [facility] CLIA [id number] [address] [place] [address] [place] CNOVon 02-05-2025 CNOV Office Visit ([facility] ) CASANDRA HENRY ([id number]) 1940 F Date Time Provider Department 02/05/25 [...] Monitor serum sodium levels regularly. 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 Patient/authorized agricultural sales representative agreed to proceed Allergies As [...] 1 hydr (more content not included)... Normal [facility] CNOVon 12-25-2024 CNOV Office Visit ([facility] ) CASANDRA HENRY ([id number]) 1940 F Date Time Provider Department 12/25/24 [...] twice a (more content not included)... Normal [facility] 12-25-2024 [facility] Telephone ([facility]) CASANDRA HENRY ([id number]) 1940 F Date Time Provider Department 12/25/24 MARILYN GUTIERREZ [facility] During your visit today, we recorded the following information about you: Chyna Ramirez, ENDEELIA 12/25/2024 10:33 AM Signed Pt called in [...] Encounter Status:Closed by CHY[facility] ELAINECASANDRA ([id number]) 1940 F Date Time Provider Department 11/21/24 [facility]TH COR[facility] During your visit today, we recorded [...] by VINIF (more content not included)... Normal [facility] Basic metabolic 2000 panelon 11-16-2024 Anion gap [Moles/Vol] 11 mmol/L Normal 8-15 [facility] Comment on above: Order Comment: Speci men Type: BLOOD SPECIMEN Ordering Facility: [facility] Address: [address] [place] [address] Performed By: #### 3 024-7, 3016-3, 26839-8, 44684-2 #### [facility] CLIA [id number] [address] [place] [address] [place] Calcium [Mass/Vol] 9.3 mg/dL Normal 8.5-10.2 [facility] Comment on above: Order Comment: Speci men Type: BLOOD SPECIMEN Ordering Facility: [facility] Address: [address] [place] [address] Performed By: #### 3 024-7, 3016-3, 27589-6, 18597-0 #### [facility] CLIA [id number] [address] [place] [address] [place] Chloride [Moles/Vol] 102 mmol/L Normal 98-107 [facility] Comment on above: Order Comment: Speci men Type: BLOOD SPECIMEN Ordering Facility: [facility] Address: [address] [place] [address] Performed By: #### 3 024-7, 3016-3, 60242-9, 20125-7 #### [facility] CLIA [id number] [address] [place] [address] [place] CO2 [Moles/Vol] 25 mmol/L Normal 22-30 [facility] Comment on above: Order Comment: Speci men Type: BLOOD SPECIMEN Ordering Facility: [facility] Address: [address] [place] [address] Performed By: #### 3 024-7, 3016-3, 17048-2, 87669-9 #### [facility] CLIA [id number] [address] [place] [address] [place] Creatinine [Mass/Vol] 0.85 mg/dL Normal 0.58-0.96 [facility] Comment on above: Order Comment: Speci men Type: BLOOD SPECIMEN Ordering Facility: [facility] Address: [address] [id number] Performed By: #### 3 024-7, 3016-3, 58127-9, 23180-0 #### [facility] CLIA [id number] [address] [place] [address] [place] Creatinine and Glomerular filtration rate.predicted panel (S/P/Bld) 69 mL/min/1.73m??? Normal >=60 [facility] Comment on above: Order Comment: Johanne soto Type: BLOOD SPECIMEN Ordering Facility: [facility] Address: [address] [place] [address] Result Comment: Hina mated Glomerular Filtration Rate [...] GFR. Performed By: #### 3 024-7, 3016-3, 10342-5, 49174-4 #### [facility] CLIA [id number] [address] [place], [place] [address] [place] Glucose [Mass/Vol] 89 mg/dL Normal 74-99 [facility] Comment on above: Order Comment: Johanne soto Type: BLOOD SPECIMEN Ordering Facility: [facility] Address: [address] [place] [address] Result Comment: The [place] [employer] (ADA) provides guidance for cutoff [...] Standards of Medical Care in Diabetes 2016, [place] [employer]. Diabetes Care. 2016.39(Suppl 1). Performed By: #### 3 024-7, 3016-3, 07649-0, 95887-6 #### [facility] CLIA [id number] [address] [place] [address] [place] Potassium [Moles/Vol] 4.3 mmol/L Normal 3.7-5.1 [facility] Comment on above: Order Comment: Speci men Type: BLOOD SPECIMEN Ordering Facility: [facility] Address: [address] [place] [address] Performed By: #### 3 024-7, 3016-3, 95165-7, 01330-1 #### [facility] CLIA [id number] [address] [place] [address] [place] Sodium [Moles/Vol] 138 mmol/L Normal 136-144 [facility] Comment on above: Order Comment: Speci men Type: BLOOD SPECIMEN Ordering Facility: [facility] Address: [address] [place] [address] Performed By: #### 3 024-7, 3016-3, 49789-5, 11810-9 #### [facility] CLIA [id number] [address] [place] [address] [place] Urea nitrogen [Mass/Vol] 8 mg/dL Normal 7-21 [facility] [facility] Comment on above: Order Comment: Speci men Type: BLOOD SPECIMEN Ordering Facility: [facility] Address: [address] [place] [address] Performed By: #### 3 024-7, 3016-3, 27325-1, 00378-9 #### [facility] CLIA [id number] [address] [place] [address] [place] Osmolality SerPlon 5 Osmolality [Osmolality] 283 mosm/kg Normal 275-300 [facility] Comment on above: Order Comment: Speci men Type: BLOOD SPECIMEN Ordering Facility: [facility] Address: [address] [place] [address] Performed By: #### 3 024-7, 3016-3, 97395-0, 16769-3 #### [facility] CLIA [id number] [address] [place] [address] [place] Osmolality Uron 11-16-2024 Osmolality (U) [Osmolality] 210 mosm/kg Normal 50-1200 [facility] Comment on above: Order Comment: Speci men Type: BLOOD SPECIMEN Ordering Facility: [facility] Address: [address] [place] [address] Performed By: #### 3 024-7, 3016-3, 71585-3, 83331-8 #### [facility] CLIA [id number] [address] [place] [address] [place] Prot Ur-mCncon 11-16-2024 Protein (U) [Mass/Vol] 6 mg/dL Normal 0-20 [facility] Comment on above: Order Comment: Speci men Type: BLOOD SPECIMEN Ordering Facility: [facility] Address: [address] [place] [address] Performed By: #### 3 024-7, 3016-3, 49174-2, 72736-8 #### [facility] CLIA [id number] [address] [place] [address] [place] Sodium ?Tm Ur-sCncon 025 Sodium Unsp time (U) [Moles/Vol] 84 mmol/L Normal 14-216 [facility] Comment on above: Order Comment: Speci men Type: BLOOD SPECIMEN Ordering Facility: [facility] Address: [address] [place] [address] Performed By: #### 3 024-7, 3016-3, 36980-3, 75122-1 #### [facility] CLIA [id number] [address] [place] [address] [place] T4 Free SerPl-mCncon 03-27-2 025 Free T4 [Mass/Vol] 1.9 ng/dL High 0.9-1.7 [facility] Comment on above: Order Comment: Johanne soto Type: BLOOD SPECIMEN Ordering Facility: [facility] Address: [address] [place] [address] Performed By: #### 3 024-7, 3016-3, 95346-4, 51771-5 #### [facility] CLIA [id number] [address] [place] [address] [place] TSH SerPl-aCncon 11-16-2024 TSH Qn 0.241 m[IU]/L Low 0.270-4.200 [facility] Comment on above: Order Comment: Johanne soto Type: BLOOD SPECIMEN Ordering Facility: [facility] Address: [address] [place] [address] Performed By: #### 3 024-7, 3016-3, 04039-6, 92372-8 #### [facility] CLIA [id number] [address] [place] [address] [place] CNOVon 08-08-2024 CNOV Office Visit (FAMPWS ) CASANDRA HENRY ([id number]) 1940 F Date Time Provider Department 08/08/24 [...] SPEC WHEN PFRMD 12/05/2013 Colonoscopy done in [facility] FLX W/REMOVAL LESION BY HOT BX [...] bring results (more content not included)... Normal [facility] CNPNon 07-12-2024 SATISHN Telephone (FAMPWS) TAMEKA HENRYA ([id number]) 1940 F Date Time Provider Department 07/12/24 [facility] your visit today, we recorded [...] name of levothyroxine 100 mcg. Patient uses [facility] as pharmacy. ENEDELIA Stearns Rebekah, APRN.CNP 07/13/2024 [...] Date Reviewed: 04/28/2024 Reviewed by: Sergei Renner APRN.THIRD RIGGER - Fully Assessed Reason for Visit: Results [95] Orders [681] Primary Visit Diagnosis:Hypothyroidi sm, unspecified type [E03.9] Order(s):SYNTHROID 100 mcg tabletTake 1 tablet by mouth once daily. Take on empty stomachDisp: 30 tabletRfl: 2 THYROID STIMULATING HORMONE [SQTSH] Order #: [id number] FUTURE T4 FREE/FREE THYROXINE [SQFT4] Order #: [id number] FUTURE Prescriptions as of 07/13/2024 - SYNTHROID [...] Status:Closed by ROXANNE FELIX on 07/13/24 Normal [facility] CBC panel Auto (Bld)on 07-10 Erythrocyte distribution width (RBC) [Ratio] 12.6 % Normal 11.5-15.0 [facility] Comment on above: Order Comment: Johanne soto Type: BLOOD SPECIMEN Ordering Facility: [facility] Address: [address] [place] [address] Performed By: #### 5 8410-2 #### [facility] CLIA [id number] [address] [place] [address] [place] Hematocrit (Bld) [Volume fraction] 41.8 % Normal 36.0-46.0 [facility] Comment on above: Order Comment: Johanne soto Type: BLOOD SPECIMEN Ordering Facility: [facility] Address: [address] [place] [address] Performed By: #### 5 8410-2 #### [facility] CLIA [id number] [address] [place] [address] [place] Hemoglobin (Bld) [Mass/Vol] 13.8 g/dL Normal 11.5-15.5 [facility] Comment on above: Order Comment: Johanne soto Type: BLOOD SPECIMEN Ordering Facility: [facility] Address: [address] [place] [address] Performed By: #### 5 8410-2 #### [facility] CLIA [id number] [address] [place] [address] [place] MCH (RBC) [Entitic mass] 30.8 pg Normal 26.0-34.0 [facility] Comment on above: Order Comment: Speci men Type: BLOOD SPECIMEN Ordering Facility: [facility] Address: [address] [place] [address] Performed By: #### 5 8410-2 #### [facility] CLIA [id number] [address] [place] [address] [place] MCHC (RBC) [Mass/Vol] 33.0 g/dL Normal 30.5-36.0 [facility] Comment on above: Order Comment: Speci men Type: BLOOD SPECIMEN Ordering Facility: [facility] Address: [address] [place] [address] Performed By: #### 5 8410-2 #### [facility] CLIA [id number] [address] [place] [address] [place] MCV (RBC) [Entitic vol] 93.3 fL Normal 80.0-100.0 [facility] Comment on above: Order Comment: Speci men Type: BLOOD SPECIMEN Ordering Facility: [facility] Address: [address] [place] [address] Performed By: #### 5 8410-2 #### [facility] CLIA [id number] [address] [place] [address] [place] Nucleated RBC (Bld) [#/Vol] 10*3/uL Normal <0.01 [facility] Comment on above: Order Comment: Speci men Type: BLOOD SPECIMEN Ordering Facility: [facility] Address: [address] [place] [address] Performed By: #### 5 8410-2 #### [facility] CLIA [id number] [address] [place] [address] [place] Platelet mean volume (Bld) [Entitic vol] 9.7 fL Normal 9.0-12.7 [facility] Comment on above: Order Comment: Speci men Type: BLOOD SPECIMEN Ordering Facility: [facility] Address: [address] [place] [address] Performed By: #### 5 8410-2 #### [facility] CLIA [id number] [address] [place] [address] [place] Platelets (Bld) [#/Vol] 294 10*3/uL Normal 150-400 [facility] Comment on above: Order Comment: Speci men Type: BLOOD SPECIMEN Ordering Facility: [facility] Address: [address] [place] [address] Performed By: #### 5 8410-2 #### [facility] CLIA [id number] [address] [place] [address] [place] RBC (Bld) [#/Vol] 4.48 10*6/uL Normal 3.90-5.20 [facility] Comment on above: Order Comment: Speci men Type: BLOOD SPECIMEN Ordering Facility: [facility] Address: [address] [place] [address] Performed By: #### 5 8410-2 #### [facility] CLIA [id number] [address] [place] [address] [place] WBC (Bld) [#/Vol] 9.66 10*3/uL Normal 3.70-11.00 [facility] Comment on above: Order Comment: Speci men Type: BLOOD SPECIMEN Ordering Facility: [facility] Address: [address] [place] [address] Performed By: #### 5 8410-2 #### [facility] CLIA [id number] [address] [place] [address] [place] T4 Free SerPl-mCncon 11-18-2 024 Free T4 [Mass/Vol] 1.5 ng/dL Normal 0.9-1.7 [facility] Comment on above: Order Comment: Speci men Type: BLOOD SPECIMEN Ordering Facility: [facility] Address: [address] [place] [address] [place] [id number] Performed By: #### 3 024-7, 3016-3, 81176-6, 69766-9 #### [facility] CLIA [id number] [address] [place], [place] [address] [place] TSH SerPl-aCncon 07-10-2024 TSH Qn 4.450 m[IU]/L High 0.270-4.200 [facility] Comment on above: Order Comment: Speci men Type: BLOOD SPECIMEN Ordering Facility: [facility] Address: [address] [place] [address] Performed By: #### 3 024-7, 3016-3, 31016-0, 61241-7 #### [facility] CLIA [id number] [address] [place] [address] [place] Hellen 06-06-2024 [facility] CASANDRA HENRY ([id number]) 1940 F Date Time Provider Department 06/06/24 [facility] During your visit today, we recorded [...] more weeks then re-check labs. Sergei Renner APRN.THIRD RIGGER 06/06/2024 2:58 PM Signed Noted, thank you. Sergei Renner APRN.THIRD RIGGER Allergies As of Date: 06/06/2024 Noted Allergy Reaction GLUTEN 08/09/2023 3 - Cough MILK CONTAINING PRODUCTS (DAIRY) 08/09/2023 3 - Cough Date Reviewed: 04/28/2024 Reviewed by: Sergei Renner APRN.THIRD RIGGER - Fully Assessed Reason for Visit: Medication [...] Encounter Status:Closed by SERGEI RENNER on 06/06/24 [facility] Hellen 05-02-2024 SATISHN Telephone (FAMPWS) ELAINECASANDRA ([id number]) 1940 F Date Time Provider Department 05/02/24 SERGEI RENNER [facility] During your visit today, we recorded [...] [E03.9] Order(s):THYROID STIMULATING HORMONE [SQTSH] Order #: [id number] FUTURE T4 FREE/FREE THYROXINE [SQFT4] Order #: [id number] FUTURE levothyroxine (SYNTHROID) 100 mcg tabletTake 1 [...] Encounter Status:Closed by LAURA LISA on 05/02/24 [facility] CNOVon 04-28-2024 CNOV Office Visit (FAMPWS ) CASANDRA HENRY ([id number]) 1940 F Date Time Provider Department 04/28/24 7:20 AM [facility] During your visit today, we recorded the [...] Sees Dr. Stoney Ray, he comes to [facility] once a week on Wednesdays. Past medical history, appointments, medications, allergies reviewed. Previous Medical History PAST MEDICAL HISTORY No date: Acid reflux No date: Hiatal hernia No date: Hypertension No date: Hypothyroid No date: Palpitation Previous Surgical History PAST SURGICAL HISTORY 2000: CARPAL TUNNEL Comment: bilateral 12/05/2013: COLONOSCOPY FLX DX W/COLLJ SPEC WHEN PFRMD Comment: Colonoscopy done in [place] 02/19/2020: COLSC FLX W/REMOVAL LESION BY HOT [...] - LEVOTHYROXINE (more content not included)... Normal [facility] 04-28-2024 SATISHN Telephone (CHRISTINA) CASANDRA HENRY ([id number]) 1940 F Date Time Provider Department 04/28/24 SERGEI RENNER During your visit today, we recorded the following information about you: Sergei Renner APRN.CNP 04/28/2024 1:57 PM Signed Please contact Dr. 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 Patient's blood pressure at [...] Status:Closed by DONITA ESTES on 07/19/24 Normal [facility] Comprehensive metabolic 2000 panelon 04-28-2024 Albumin [Mass/Vol] 4.4 g/dL Normal 3.9-4.9 [facility] Comment on above: Order Comment: Johanne soto Type: BLOOD SPECIMEN Ordering Facility: [facility] Address: [address] [place] [address] Performed By: #### 3 024-7, 3016-3, 16178-8, 38627-7 #### [facility] CLIA [id number] [address] [place] [address] [place] [address] [place] ALP [Catalytic activity/Vol] 133 U/L High 34-123 [facility] Comment on above: Order Comment: Johanne soto Type: BLOOD SPECIMEN Ordering Facility: [facility] Address: [address] [place] [address] Performed By: #### 3 024-7, 3016-3, 73016-7, 78030-1 #### [facility] CLIA [id number] [address] [place] [address] [place] ALT [Catalytic activity/Vol] 14 U/L Normal 7-38 [facility] Comment on above: Order Comment: Speci men Type: BLOOD SPECIMEN Ordering Facility: [facility] Address: [address] [place] [address] Performed By: #### 3 024-7, 3016-3, 87713-2, 53566-7 #### [facility] CLIA [id number] [address] [place] [address] [place] Anion gap [Moles/Vol] 14 mmol/L Normal 8-15 [facility] Comment on above: Order Comment: Speci men Type: BLOOD SPECIMEN Ordering Facility: [facility] Address: [address] [place] [address] Performed By: #### 3 024-7, 3016-3, 37660-8, 68818-6 #### [facility] CLIA [id number] [address] [place] [address] [place] AST [Catalytic activity/Vol] 20 U/L Normal 13-35 [facility] Comment on above: Order Comment: Speci men Type: BLOOD SPECIMEN Ordering Facility: [facility] Address: [address] [place] [address] Performed By: #### 3 024-7, 3016-3, 41895-1, 77113-2 #### [facility] CLIA [id number] [address] [place] [address] [place] Bilirubin [Mass/Vol] 1.4 mg/dL High 0.2-1.3 [facility] Comment on above: Order Comment: Speci men Type: BLOOD SPECIMEN Ordering Facility: [facility] Address: [address] [place] [address] Performed By: #### 3 024-7, 3016-3, 35325-6, 02344-7 #### [facility] CLIA [id number] [address] [place] [address] [place] Calcium [Mass/Vol] 9.7 mg/dL Normal 8.5-10.2 [facility] Comment on above: Order Comment: Speci men Type: BLOOD SPECIMEN Ordering Facility: [facility] Address: [address] [place] [address] Performed By: #### 3 024-7, 3016-3, 83525-6, 98890-1 #### [facility] CLIA [id number] [address] [place] [address] [place] Chloride [Moles/Vol] 97 mmol/L Low 98-107 [facility] Comment on above: Order Comment: Speci men Type: BLOOD SPECIMEN Ordering Facility: [facility] Address: [address] [place] [address] Performed By: #### 3 024-7, 3016-3, 28405-1, 84717-5 #### [facility] CLIA [id number] [address] [place] [address] [place] CO2 [Moles/Vol] 25 mmol/L Normal 22-30 [facility] Comment on above: Order Comment: Speci men Type: BLOOD SPECIMEN Ordering Facility: [facility] Address: [address] [place] [address] Performed By: #### 3 024-7, 3016-3, 25949-3, 96396-8 #### [facility] CLIA [id number] [address] [place] [address] [place] Creatinine [Mass/Vol] 0.85 mg/dL Normal 0.58-0.96 [facility] Comment on above: Order Comment: Speci men Type: BLOOD SPECIMEN Ordering Facility: [facility] Address: [address] [place] [address] Performed By: #### 3 024-7, 3016-3, 20594-1, 45825-2 #### [facility] CLIA [id number] [address] [place] [address] [place] Creatinine and Glomerular filtration rate.predicted panel (S/P/Bld) 69 mL/min/1.73m??? Normal >=60 [facility] Comment on above: Order Comment: Johanne soto Type: BLOOD SPECIMEN Ordering Facility: [facility] Address: [address] [place] [address] Result Comment: Hina mated Glomerular Filtration Rate [...] GFR. Performed By: #### 3 024-7, 3016-3, 22495-2, 61499-7 #### [facility] CLIA [id number] [address] [place] [address] [place] Glucose [Mass/Vol] 93 mg/dL Normal 74-99 [facility] Comment on above: Order Comment: Johanne soto Type: BLOOD SPECIMEN Ordering Facility: [facility] Address: [address] [place] [address] Result Comment: The [place] [employer] Association (ADA) provides guidance for cutoff [...] Standards of Medical Care in Diabetes 2016, [place] [employer]. Diabetes Care. 2016.39(Suppl 1). Performed By: #### 3 024-7, 3016-3, 38725-9, 24565-3 #### [facility] CLIA [id number] [address] [place] [address] [place] Potassium [Moles/Vol] 4.2 mmol/L Normal 3.7-5.1 [facility] Comment on above: Order Comment: Speci men Type: BLOOD SPECIMEN Ordering Facility: [facility] Address: [address] [place] [address] Performed By: #### 3 024-7, 3016-3, 61533-1, 62229-7 #### [facility] CLIA [id number] [address] [place] [address] [place] Protein [Mass/Vol] 7.1 g/dL Normal 6.3-8.0 [facility] Comment on above: Order Comment: Speci men Type: BLOOD SPECIMEN Ordering Facility: [facility] Address: [address] [place] [address] Performed By: #### 3 024-7, 3016-3, 06084-8, 59086-1 #### [facility] CLIA [id number] [address] [place] [address] [place] Sodium [Moles/Vol] 136 mmol/L Normal 136-144 [facility] Comment on above: Order Comment: Speci men Type: BLOOD SPECIMEN Ordering Facility: [facility] Address: [address] [place] [address] Performed By: #### 3 024-7, 3016-3, 41211-8, 91119-0 #### [facility] CLIA [id number] [address] [place] [address] [place] Urea nitrogen [Mass/Vol] 12 mg/dL Normal 7-21 [facility] Comment on above: Order Comment: Speci men Type: BLOOD SPECIMEN Ordering Facility: [facility] Address: [address] [place] [address] Performed By: #### 3 024-7, 3016-3, 08317-0, 95929-0 #### [facility] CLIA [id number] [address] [place] [address] [place] Ferritin SerPl-mCncon 2023 Ferritin [Mass/Vol] 138.0 ng/mL Normal 14.7-205.1 [facility] Comment on above: Order Comment: Speci men Type: BLOOD SPECIMEN Ordering Facility: [facility] Address: [address] [place] [address] Performed By: #### 3 024-7, 3016-3, 38972-0, 86801-5 #### [facility] CLIA [id number] [address] [place] [address] [place] Iron and Iron binding capaci panel 04-28-2024 Iron [Mass/Vol] 103 ug/dL Normal 41-186 [facility] Comment on above: Order Comment: Speci men Type: BLOOD SPECIMEN Ordering Facility: [facility] Address: [address] [place] [address] Performed By: #### 3 024-7, 3016-3, 26243-9, 04703-2 #### [facility] CLIA [id number] [address] [place] [address] [place] Iron binding capacity [Mass/Vol] 320 ug/dL Normal 232-386 [facility] Comment on above: Order Comment: Speci men Type: BLOOD SPECIMEN Ordering Facility: [facility] Address: [address] [place] [address] Performed By: #### 3 024-7, 3016-3, 56703-6, 03360-2 #### [facility] CLIA [id number] [address] [place] [address] [place] Iron/TIBC [Molar ratio] 32.2 % Normal 15.0-57.0 [facility] Comment on above: Order Comment: Speci men Type: BLOOD SPECIMEN Ordering Facility: [facility] Address: [address] [place] [address] Performed By: #### 3 024-7, 3016-3, 47176-5, 28632-8 #### [facility] CLIA [id number] [address] [place] [address] [place] T4 Free SerPl-mCncon 024 Free T4 [Mass/Vol] 1.2 ng/dL Normal 0.9-1.7 [facility] Comment on above: Order Comment: Speci men Type: BLOOD SPECIMEN Ordering Facility: [facility] Address: [address] [place] [address] Performed By: #### 3 024-7, 3016-3, 72435-4, 43984-0 #### [facility] CLIA [id number] [address] [place] [address] [place] TSH SerPl-aCncon 04-28-2024 TSH Qn 6.310 m[IU]/L High 0.270-4.200 [facility] Comment on above: Order Comment: Speci men Type: BLOOD SPECIMEN Ordering Facility: [facility] Address: [address] [place] [address] Performed By: #### 3 024-7, 3016-3, 34549-4, 39827-8 #### [facility] CLIA [id number] [address] [place] [address] [place] XR Chest PA and Lateralon IMPRESSION: No acute radiographic abnormality. Supervisor Agricultural Education: PSCB Transcribe Date/Time: Nov 06 2023 8:54A [...] soft tissues: Unremarkable. DIVISION OF RADIOLOGY [facility] - 11/06/2023 * * *Final Report* [...] Unremarkable. IMPRESSION IMPRESSION: No acute radiographic abnormality. Supervisor Agricultural Education: DELIA Transcribe Date/Time: Nov 06 2023 8:54A Dictated by : ARIC TY DO This examination was interpreted and the report reviewed and electronically signed by: ARIC TY DO on Nov 06 2023 8:54AM [facility] Radiology Study observation (narrative) Ilir dotson [facility] XR Chest PA and LateralOrder ed By: [facility] Provider on 11-06-2023 [facility] URINE CULTUREon 07-28-2023 Bacteria identified Cx Nom (U) No growth (<1,000 CFU/ml) [facility] Comprehensive metabolic 2000 panelon 07-02-2023 Albumin [Mass/Vol] 3.8 g/dL Low 3.9 - 4.9 g/dL [facility] ALP [Catalytic activity/Vol] 97 U/L 34 - 123 U/L [facility] ALT [Catalytic activity/Vol] 15 U/L 7 - 38 U/L [facility] Anion gap [Moles/Vol] 13 mmol/L 9 - 18 mmol/L [facility] AST [Catalytic activity/Vol] 19 U/L 13 - 35 U/L [facility] Bilirubin [Mass/Vol] 1.1 mg/dL 0.2 - 1 .3 mg/dL [facility] Calcium [Mass/Vol] 8.8 mg/dL 8.5 - 10. 2 mg/dL [facility] Chloride [Moles/Vol] 93 mmol/L Low 97 - 10 5 mmol/L [facility] CO2 [Moles/Vol] 20 mmol/L Low 22 - 30 mmol/L [facility] Creatinine [Mass/Vol] 0.89 mg/dL 0.58 - 0.96 mg/dL [facility] Estimated Glomerular Filtration Rate 65 mL/min/1.73m >=60 mL/min/1.73m [facility] Glucose [Mass/Vol] 97 mg/dL 74 - 99 mg/dL [facility] Potassium [Moles/Vol] 4.6 mmol/L 3.7 - 5.1 mmol/L [facility] Protein [Mass/Vol] 6.1 g/dL Low 6.3 - 8.0 g/dL [facility] Sodium [Moles/Vol] 126 mmol/L Low 136 - 144 mmol/L [facility] Urea nitrogen [Mass/Vol] 9 mg/dL 7 - 21 mg/d L [facility] Absolute lymphocyte countOrd ered By: Josselyn Adhikari on 06-29-2023 Lymphocytes Auto (Unsp spec) [#/Vol] 1.63 10*3/uL 0.83-4.51 [facility] Basophil percentageOrdered B y: Josselyn Adhikari on 06-29-2023 Basophil percentage 0 SEEN /hpf 0-5 [facility] Basophils/100 WBC (Bld) 0.3 % 0-1 [facility] Chloride [Moles/Vol] 97 mmol/L 98-107 [facility] Eosinophils/100 WBC (Bld) 3.6 % 0-5 [facility] Glucose [Mass/Vol] 102 mg/dL 74-106 [facility] Comment on above: Fasting Glucose resu lt from 100 to 125 mg/dL suggests IMPAIRED HOMEOSTASIS per A.D.A. criteria. Neutrophils (Bld) [#/Vol] 6.1 10*3/uL 2.0-7.7 [facility] Neutrophils/100 WBC (Bld) 67.9 % 47-70 [facility] Potassium [Moles/Vol] 4.5 mmol/L 3.5-5.1 [facility] Sodium [Moles/Vol] 128 mmol/L 136-145 [facility] WBC (Bld) [#/Vol] 9.1 10*3/uL 4.4-11.0 [facility] Bilirubin Test strip Ql (U)O rdered By: Josselyn Adhikari on 06-29-2023 Bilirubin Ql (U) Negative Negative [facility] Blood erythrocytes count (nu mber/volume)Ordered By: Josselyn Adhikari on 06-29-2023 RBC (Bld) [#/Vol] 3.58 10*6/uL 4.2-5.4 [facility] Blood hemoglobin measurement (mass/volume)Ordered By: Josselyn Adhikari on 06-29-2023 Hemoglobin (Bld) [Mass/Vol] 10.9 g/dL 12.0-15.0 [facility] Blood lymphocytes/100 leukoc ytesOrdered By: Josselyn Adhikari on 06-29-2023 Lymphocytes/100 WBC (Bld) 18.0 % 19-41 [facility] Blood monocytes/100 leukocyt esOrdered By: Josselyn Adhikari on 06-29-2023 Monocytes/100 WBC (Bld) 9.5 % 0-10 [facility] Blood platelet mean volumeOr dered By: Josselyn Adhikari on 06-29-2023 Platelet mean volume (Bld) [Entitic vol] 9.1 fL 6.2-12.0 [facility] Determination of erythrocyte mean corpuscular volume (MCV)Ordered By: Josselyn Adhikari on 06-29-2023 MCV (RBC) [Entitic vol] 90.8 fL 81-99 [facility] Hematocrit Auto (Bld) [Volum e fraction]Ordered By: Josselyn Adhikari on 06-29-2023 Hematocrit (Bld) [Volume fraction] 32.5 % 37-47 [facility] Ketones Test strip Ql (U)Ord ered By: Josselyn Adhikari on 06-29-2023 Ketones Ql (U) Negative Negative [facility] Laboratory - Chemistry and C hemistry - challengeOrdered By: Josselyn Adhikari on 06-29-2023 CO2 [Moles/Vol] 25.0 mmol/L 21.0-32.0 [facility] Urea nitrogen/Creatinine [Mass ratio] 11.9 mg/mg 10-20 [facility] Laboratory - Hematology and Cell countsOrdered By: Josselyn Adhikari on 06-29-2023 Erythrocyte distribution width (RBC) [Entitic vol] 38.9 fL 35.1-43.9 [facility] Erythrocyte distribution width (RBC) [Ratio] 11.8 % 11.6-14.6 [facility] Immature granulocytes/100 WBC (Bld) 0.700 % 0.0-0.9 [facility] Comment on above: IG% - Immature Granu locytes (promyelocytes, myelocytes and metamyelocytes) > 1% indicates that a LEFT SHIFT is Present. MCH (RBC) [Entitic mass] 30.4 pg 27.0-32.0 [facility] Nucleated RBC/100 WBC (Bld) [Ratio] 0 % 0-5 [facility] MCHC Auto (RBC) [Mass/Vol]Or dered By: Josselyn Adhikari on 06-29-2023 MCHC (RBC) [Mass/Vol] 33.5 g/dL 32-36 [facility] Mucus LM Ql (Urine sed)Order ed By: Josselyn Adhikari on 06-29-2023 Mucus Ql (Urine sed) 0 SEEN /hpf [facility] Nitrite Test strip Ql (U)Ord ered By: Josselyn Adhikari on 06-29-2023 Nitrite Ql (U) Negative Negative [facility] No Panel InformationOrdered By: Josselyn Adhikari on 06-29-2023 Estimated Creatinine Clearance Calc 35.80 ml/min [facility] Estimated GFR (MDRD) Amer 75 mL/min >60 [facility] Comment on above: GFR Calc Estimated GFR (MDRD) Non-Af Amer 62 mL/min >60 [facility] Comment on above: Non- GFR Calc Troponin I High Sensitivity 8 pg/mL 3.0-54.0 [facility] Comment on above: Please Note: New Kimmy t Units and Gender Specific Reference Ranges. For more information see Policy Stat Procedure [place] High Sensitivity Troponin (TNIH) and attachments. Platelets bldOrdered By: Wendy neil Onofre on 06-29-2023 Platelets (Bld) [#/Vol] 338 10*3/uL 150-450 [facility] Protein Test strip Ql (U)Ord ered By: Wendyus Adhikari on 06-29-2023 Protein Ql (U) Negative Negative [facility] Serum or plasma calcium lillie urement (mass/volume)Ordered By: Josselyn Adhikari on 06-29-2023 Calcium [Mass/Vol] 9.1 mg/dL 8.5-10.1 [facility] Serum or plasma creatinine m easurement (mass/volume)Ordered By: Wendyus Adhikari on 06-29-2023 Creatinine [Mass/Vol] 0.93 mg/dL 0.55-1.02 [facility] Comment on above: The validity of the calculated GFR & GFRAA in patients over 70 years has not been determined. Clinical correlation is essential. Serum or plasma urea nitroge n measurement (mass/volume)Ordered By: Wendyus Adhikari on 06-29-2023 Urea nitrogen [Mass/Vol] 11 mg/dL 7-18 [facility] Squamous epithelial cells de tection in urine sediment by light microscopyOrdered By: Josselyn Adhikari on 06-29-2023 Epithelial cells.squamous LM Ql (Urine sed) 0 SEEN /hpf 5-10 [facility] Thin prep Papanicolaou smear with manual screeningOrdered By: Josselyn Adhikari on 06-29-2023 Thin prep Papanicolaou smear with manual screening 6 5-15 [facility] Urine blood detectionOrdered By: Josselyn Adhikari on 06-29-2023 RBC Ql (U) Negative Negative [facility] RBC Ql (U) 0 SEEN /hpf 0-5 [facility] Urine clarityOrdered By: Wendy neil Onofre on 06-29-2023 Clarity (U) Clear Clear [facility] Urine color determinationOrd ered By: Josselyn Adhikari on 06-29-2023 Color (U) Yellow Yellow [facility] Urine glucose detectionOrder ed By: Josselyn Adhikari on 06-29-2023 Glucose Ql (U) Normal mg/dl Normal [facility] Urine leukocyte esterase det ection by dipstickOrdered By: Josselyn Adhikari on 06-29-2023 Leukocyte esterase Test strip Ql (U) 25 /ul Negative [facility] Urine pHOrdered By: Josselyn Un gur on 06-29-2023 pH (U) 7.0 [pH] 5.0 - 8.0 [facility] Urine sediment bacteria coun t by microscopy (number/high power field)Ordered By: Josselyn Adhikari on 06-29-2023 Bacteria LM.HPF (Urine sed) [#/Area] 0 /[HPF] None Seen [facility] Urine specific gravity measu rementOrdered By: Josselyn Adhikari on 06-29-2023 Specific gravity (U) [Rel density] 1.005 1.002-1.030 [facility] Urobilinogen Auto test strip Ql (U)Ordered By: Josselyn Adhikari on 06-29-2023 Urobilinogen Ql (U) Normal mg/dl [facility] CBC W Auto Differential pane l (Bld)on 06-16-2023 Basophils (Bld) [#/Vol] 0.05 10*3/uL <0.11 k/uL [facility] Basophils/100 WBC (Bld) 0.4 % [facility] Differential cell count method Nom (Bld) Auto [facility] Eosinophils (Bld) [#/Vol] 0.35 10*3/uL <0.46 k/uL [facility] Eosinophils/100 WBC (Bld) 2.8 % [facility] Erythrocyte distribution width (RBC) [Ratio] 11.9 % 11.5 - 15.0 % [facility] Hematocrit (Bld) [Volume fraction] 37.1 % 36.0 - 46.0 % [facility] Hemoglobin (Bld) [Mass/Vol] 12.4 g/dL 11.5 - 15.5 g/dL [facility] Immature granulocytes (Bld) [#/Vol] 0.05 10*3/uL <0.10 k/uL [facility] Immature granulocytes/100 WBC (Bld) 0.4 % [facility] Lymphocytes (Bld) [#/Vol] 2.24 10*3/uL 1.00 - 4.00 k/uL [facility] Lymphocytes/100 WBC (Bld) 18.1 % [facility] MCH (RBC) [Entitic mass] 30.5 pg 26. 0 - 34.0 pg [facility] MCHC (RBC) [Mass/Vol] 33.4 g/dL 30.5 - 36.0 g/dL [facility] MCV (RBC) [Entitic vol] 91.4 fL 80.0 - 100.0 fL [facility] Monocytes (Bld) [#/Vol] 1.18 10*3/uL High <0.87 k/uL [facility] Monocytes/100 WBC (Bld) 9.5 % [facility] Neutrophils (Bld) [#/Vol] 8.52 10*3/uL High 1.45 - 7.50 k/uL [facility] Neutrophils/100 WBC (Bld) 68.8 % [facility] Nucleated RBC (Bld) [#/Vol] <0.01 k/uL [facility] Nucleated RBC/100 WBC (Bld) [Ratio] 0.0 /100 WBC [facility] Platelet mean volume (Bld) [Entitic vol] 10.3 fL 9.0 - 12.7 fL [facility] Platelets (Bld) [#/Vol] 332 10*3/uL 150 - 400 k/uL [facility] RBC (Bld) [#/Vol] 4.06 10*6/uL 3.90 - 5.2 0 m/uL [facility] WBC (Bld) [#/Vol] 12.39 10*3/uL High 3.70 - 11 .00 k/uL [facility] Comprehensive metabolic 2000 panelon 06-16-2023 Albumin [Mass/Vol] 4.1 g/dL 3.9 - 4.9 g/dL [facility] ALP [Catalytic activity/Vol] 127 U/L High 34 - 123 U/L [facility] ALT [Catalytic activity/Vol] 14 U/L 7 - 38 U/L [facility] Anion gap [Moles/Vol] 15 mmol/L 9 - 18 mmol/L [facility] AST [Catalytic activity/Vol] 21 U/L 13 - 35 U/L [facility] Bilirubin [Mass/Vol] 1.2 mg/dL 0.2 - 1 .3 mg/dL [facility] Calcium [Mass/Vol] 9.6 mg/dL 8.5 - 10. 2 mg/dL [facility] Chloride [Moles/Vol] 95 mmol/L Low 97 - 10 5 mmol/L [facility] CO2 [Moles/Vol] 19 mmol/L Low 22 - 30 mmol/L [facility] Creatinine [Mass/Vol] 0.93 mg/dL 0.58 - 0.96 mg/dL [facility] Estimated Glomerular Filtration Rate 62 mL/min/1.73m >=60 mL/min/1.73m [facility] Glucose [Mass/Vol] 100 mg/dL High 74 - 99 mg/dL [facility] Potassium [Moles/Vol] 4.8 mmol/L 3.7 - 5.1 mmol/L [facility] Protein [Mass/Vol] 7.0 g/dL 6.3 - 8.0 g/dL [facility] Sodium [Moles/Vol] 129 mmol/L Low 136 - 144 mmol/L [facility] Urea nitrogen [Mass/Vol] 12 mg/dL 7 - 21 mg/d L [facility] UA DIP, URINE (POC)on 2022 BILIRUBIN UA (POCT) Negative Negative [facility] CLARITY UA (POCT) Clear [facility] COLOR UA (POCT) Yellow [facility] GLUCOSE UA (POCT) Negative Negative mg/dL [facility] Hemoglobin Ql (U) Negative Negative [facility] KETONE UA (POCT) Negative Negative mg/dL [facility] LEUKOCYTES UA (POCT) Small Abnormal Negative [facility] NITRITE UA (POCT) Negative Negative [facility] PH UA (POCT) 6.5 4.5 - 8.0 [facility] Protein Ql (U) Negative Negative mg/dL [facility] SPECIFIC GRAVITY UA (POCT) 1.010 1.005 - 1.030 [facility] UROBILINOGEN UA (POCT) 0.2 E.U./dL Bre l E.U./dL [facility] UA DIP, URINE (POC)on 2022 BILIRUBIN UA (POCT) Negative Negative [facility] CL[facility]ITY [facility] (POCT) [facility] COLOR UA (POCT) Yellow [facility] GLUCOSE UA (POCT) Negative Negative mg/dL [facility] HEMOGLOBIN/BLOOD UA (POCT) Negative Negative [facility] KETONE UA (POCT) Negative Negative mg/dL [facility] LEUKOCYTES UA (POCT) Trace Abnormal Negative [facility] NITRITE UA (POCT) Negative Negative [facility] PH UA (POCT) 6.0 4.5 - 8.0 [facility] Protein Ql (U) Negative Negative mg/dL [facility] SPECIFIC GRAVITY UA (POCT) 1.010 1.005 - 1.030 [facility] UROBILINOGEN UA (POCT) 0.2 E.U./dL Bre l E.U./dL [facility] Absolute lymphocyte countOrd ered By: Frederick Carrasco on 03-20-2023 Lymphocytes Auto (Unsp spec) [#/Vol] 2.05 10*3/uL 0.83-4.51 [facility] Basophil percentageOrdered B y: Frederick Carrasco on 03-20-2023 Basophil percentage 10-25 SEEN /hpf 0-5 [facility] Basophils/100 WBC (Bld) 0.3 % 0-[address] [facility] Chloride [Moles/Vol] 94 mmol/L 98-107 [facility] Eosinophils/100 WBC (Bld) 4.3 % 0-5 [facility] Glucose [Mass/Vol] 120 mg/dL 74-106 [facility] Comment on above: Fasting Glucose resu lt from 100 to 125 mg/dL suggests IMPAIRED HOMEOSTASIS per A.D.A. criteria. Neutrophils (Bld) [#/Vol] 5.8 10*3/uL 2.0-7.7 [facility] Neutrophils/100 WBC (Bld) 63.0 % 47-70 [facility] Potassium [Moles/Vol] 4.3 mmol/L 3.5-5.1 [facility] Sodium [Moles/Vol] 127 mmol/L 136-145 [facility] WBC (Bld) [#/Vol] 9.2 10*3/uL 4.4-11.0 [facility] Bilirubin Test strip Ql (U)O rdered By: Frederick Carrasco on 03-20-2023 Bilirubin Ql (U) Negative Negative [facility] Blood erythrocytes count (nu mber/volume)Ordered By: Frederick Carrasco on 03-20-2023 RBC (Bld) [#/Vol] 4.17 10*6/uL 4.2-5.4 [facility] Blood hemoglobin measurement (mass/volume)Ordered By: Frederick Carrasco on 03-20-2023 Hemoglobin (Bld) [Mass/Vol] 13.0 g/dL 12.0-15.0 [facility] Blood lymphocytes/100 leukoc ytesOrdered By: Frederick Carrasco on 03-20-2023 Lymphocytes/100 WBC (Bld) 22.2 % 19-41 [facility] Blood monocytes/100 leukocyt esOrdered By: Frederick Carrasco on 03-20-2023 Monocytes/100 WBC (Bld) 9.9 % 0-10 [facility] Blood platelet mean volumeOr dered By: Frederick Carrasco on 03-20-2023 Platelet mean volume (Bld) [Entitic vol] 8.6 fL 6.2-12.0 [facility] Culture, urineOrdered By: Raman Carrasco on 03-20-2023 Bacteria identified Cx Nom (U) Positive [facility] Determination of erythrocyte mean corpuscular volume (MCV)Ordered By: Frederick Carrasco on 03-20-2023 MCV (RBC) [Entitic vol] 89.2 fL 81-99 [facility] Hematocrit Auto (Bld) [Volum e fraction]Ordered By: Frederick Carrasco on 03-20-2023 Hematocrit (Bld) [Volume fraction] 37.2 % 37-47 [facility] Ketones Test strip Ql (U)Ord ered By: Frederick Carrasco on 03-20-2023 Ketones Ql (U) Negative Negative [facility] Laboratory - Chemistry and C hemistry - challengeOrdered By: Frederick Carrasco on 03-20-2023 CO2 [Moles/Vol] 28.0 mmol/L 21.0-32.0 [facility] Urea nitrogen/Creatinine [Mass ratio] 11.9 mg/mg 10-20 [facility] Laboratory - Hematology and Cell countsOrdered By: Frederick Carrasco on 03-20-2023 Erythrocyte distribution width (RBC) [Entitic vol] 37.2 fL 35.1-43.9 [facility] Erythrocyte distribution width (RBC) [Ratio] 11.5 % 11.6-14.6 [facility] Immature granulocytes/100 WBC (Bld) 0.300 % 0.0-0.9 [facility] Comment on above: IG% - Immature Granu locytes (promyelocytes, myelocytes and metamyelocytes) > 1% indicates that a LEFT SHIFT is Present. MCH (RBC) [Entitic mass] 31.2 pg 27.0-32.0 [facility] Nucleated RBC/100 WBC (Bld) [Ratio] 0 % 0-5 [facility] MCHC Auto (RBC) [Mass/Vol]Or dered By: Frederick Carrasco on 03-20-2023 MCHC (RBC) [Mass/Vol] 34.9 g/dL 32-36 [facility] Mucus LM Ql (Urine sed)Order ed By: Frederick Carrasco on 03-20-2023 Mucus Ql (Urine sed) 0 SEEN /hpf [facility] Nitrite Test strip Ql (U)Ord ered By: Frederick Carrasco on 03-20-2023 Nitrite Ql (U) Negative Negative [facility] No Panel InformationOrdered By: Frederick Carrasco on 03-20-2023 Estimated Creatinine Clearance Calc 30.54 ml/min [facility] Estimated GFR (MDRD) Amer 62 mL/min >60 [facility] Comment on above: GFR Calc Estimated GFR (MDRD) Non-Af Amer 51 mL/min >60 [facility] Comment on above: Non- GFR Calc Troponin I High Sensitivity 5 pg/mL 3.0-54.0 [facility] Comment on above: Please Note: New Kimmy t Units and Gender Specific Reference Ranges. For more information see Policy Stat Procedure [place] High Sensitivity Troponin (TNIH) and attachments. Platelets bldOrdered By: Katerina Carrasco on 03-20-2023 Platelets (Bld) [#/Vol] 353 10*3/uL 150-450 [facility] Protein Test strip Ql (U)Ord ered By: Frederick Carrasco on 03-20-2023 Protein Ql (U) Negative Negative [facility] Serum or plasma calcium lillie urement (mass/volume)Ordered By: Frederick Carrasco on 03-20-2023 Calcium [Mass/Vol] 9.3 mg/dL 8.5-10.1 [facility] Serum or plasma creatinine m easurement (mass/volume)Ordered By: Frederick Carrasco on 03-20-2023 Creatinine [Mass/Vol] 1.09 mg/dL 0.55-1.02 [facility] Comment on above: The validity of the calculated GFR & GFRAA in patients over 70 years has not been determined. Clinical correlation is essential. Serum or plasma urea nitroge n measurement (mass/volume)Ordered By: Frederick Carrasco on 03-20-2023 Urea nitrogen [Mass/Vol] 13 mg/dL 7-18 [facility] Squamous epithelial cells de tection in urine sediment by light microscopyOrdered By: Frederick Carrasco on 03-20-2023 Epithelial cells.squamous LM Ql (Urine sed) 0 SEEN /hpf 5-10 [facility] Thin prep Papanicolaou smear with manual screeningOrdered By: Frederick Carrasco on 03-20-2023 Thin prep Papanicolaou smear with manual screening 5 5-15 [facility] Urine blood detectionOrdered By: Frederick Carrasco on 03-20-2023 RBC Ql (U) Negative Negative [facility] RBC Ql (U) 0 SEEN /hpf 0-5 [facility] Urine clarityOrdered By: Katerina Carrasco on 03-20-2023 Clarity (U) Clear Clear [facility] Urine color determinationOrd ered By: Frederick Carrasco on 03-20-2023 Color (U) Yellow Yellow [facility] Urine glucose detectionOrder ed By: Frederick Carrasco on 03-20-2023 Glucose Ql (U) Normal mg/dl Normal [facility] Urine leukocyte esterase det ection by dipstickOrdered By: Frederick Carrasco on 03-20-2023 Leukocyte esterase Test strip Ql (U) 500 /ul Negative [facility] Urine pHOrdered By: Frederick yan on 03-20-2023 pH (U) 6.5 [pH] 5.0 - 8.0 [facility] Urine sediment bacteria coun t by microscopy (number/high power field)Ordered By: Frederick Carrasco on 03-20-2023 Bacteria LM.HPF (Urine sed) [#/Area] 1 /[HPF] None Seen [facility] Urine specific gravity measu rementOrdered By: Frederick Carrasco on 03-20-2023 Specific gravity (U) [Rel density] 1.005 1.002-1.030 [facility] Urobilinogen Auto test strip Ql (U)Ordered By: Frederick Carrasco on 03-20-2023 Urobilinogen Ql (U) Normal mg/dl [facility] XR Lumbar spine 3 [place] IMPRESSION: MULTILEVEL DEGENERATIVE CHANGE. 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 DEXTROSCOLIOSIS Supervisor Agricultural Education: DELIA Transcribe Date/Time: Dec 28 2022 4:30P [...] and hips bilaterally. DIVISION OF RADIOLOGY [facility] * * *Final [...] 1 SPONDYLOLISTHESIS OF L4 ON L5. DEXTROSCOLIOSIS Supervisor Agricultural Education: DELIA Transcribe Date/Time: Dec 28 2022 4:30P Dictated by : REINALDO CALVERT MD This examination was interpreted and the report reviewed and electronically signed by: REINALDO CALVERT MD on Dec 28 2022 4:32PM EST [facility] XR Lumbar spine 3 ViewsOrder ed By: [facility] Provider on 12-28-2022 [facility] XR LUMBAR GENERAL 3V AP/LAT/ L5-S1on 12-25-2022 [facility] XR Lumbar spine 3 [facility] Radiology Study observation (narrative) [facility] UA DIP, URINE (POC)on 2021 BILIRUBIN UA (POCT) Negative Negative [facility] CLARITY UA (POCT) Clear [facility] COLOR UA (POCT) Yellow [facility] GLUCOSE UA (POCT) Negative Negative mg/dL [facility] HEMOGLOBIN/BLOOD UA (POCT) Negative Negative [facility] KETONE UA (POCT) Negative Negative mg/dL [facility] LEUKOCYTES UA (POCT) Small Abnormal Negative [facility] NITRITE UA (POCT) Negative Negative [facility] PH UA (POCT) 6.5 4.5 - 8.0 [facility] Protein Ql (U) Negative Negative mg/dL [facility] SPECIFIC GRAVITY UA (POCT) 1.025 1.005 - 1.030 [facility] UROBILINOGEN UA (POCT) 0.2 E.U./dL Bre l E.U./dL [facility] MG Mammogram Digital Screeni ng Blon 02-24-2017 MG Mammogram Digital Screening Bl Patient Name: CASANDRA HENRY Mammography Exam Date/Time 02/24/2017 09:12:27 EDT Exam MG Mammogram Digital Screening Bl Ordering Physician DO MARIN NICOLE LEE Accession Number [id number] CPT4 Codes 62506 () Reason For Exam Screening Report PATIENT [...] 26, 2015, bilateral screening mammogram performed at [facility]. November 05, 2014, bilateral screening mammogram performed at [facility]. July 27, 2013, bilateral screening mammogram, performed at [facility]. There are scattered fibroglandular densities. No suspicious masses, architectural distortions or suspiciously clustered microcalcifications are identified. There are no significant changes when compared with prior studies. Markings on images: BB's = Nipples; skin lesions [place] = Palpable Line = Scar 2D digital mammography imaging was performed and reviewed with CAD. ASSESSMENT: Category 1 Negative No mammographic evidence of malignancy. RECOMMENDATION: Routine screening mammogram of both breasts in 1 year. Final Signed Date and Time: 03/01/2017 11:44 am Signed by: MD VALLEJO LAUREN B [facility] Vital Signs Date Time Vital Sign Value Performing Clinician Facility 2025 [id number] Body mass index (BMI) [Ratio] 25.2 kg/m2 Margoth Chavez APRN.CNP Work Phone: [facility] 2025 11:14-0400 Body weight 62.51 kg Margoth Chavez APRN.CNP Work Phone: [facility] 2025 11:14-040 Diastolic blood pressure 62 mm[Hg] Margoth Chavez APRN.CNP Work Phone: [facility] 2025 11:14-0400 Heart rate 88 /min Margoth Chavez APRN.CNP Work Phone: [facility] 2025 11:14-0400 Respiratory rate 12 /min Margoth Scott DESK SERGEANT.THIRD RIGGER Work Phone: [facility] 2025 11:14-0400 SaO2% (BldA) [Mass fraction] 98 % Margoth Scott DESK SERGEANT.THIRD RIGGER Work Phone: [facility] 2025 11:14-0400 Systolic blood pressure 120 mm[Hg] Margoth Scott DESK SERGEANT.THIRD RIGGER Work Phone: [facility] 02-26-2025 09:07-0400 Body mass index (BMI) [Ratio] 25.72 kg/m2 Margoth Scott DESK SERGEANT.THIRD RIGGER Work Phone: [facility] 02-26-2025 09:07-0400 Body weight 63.78 kg Margoth Scott DESK SERGEANT.THIRD RIGGER Work Phone: [facility] 02-26-2025 09:07-0400 Diastolic blood pressure 80 mm[Hg] Margoth Scott DESK SERGEANT.THIRD RIGGER Work Phone: [facility] 02-26-2025 09:07-0400 Heart rate 75 /min Margoth Scott DESK SERGEANT.THIRD RIGGER Work Phone: [facility] 02-26-2025 09:07-0400 SaO2% (BldA) [Mass fraction] 96 % Margoth Scott DESK SERGEANT.THIRD RIGGER Work Phone: [facility] 02-26-2025 09:07-0400 Systolic blood pressure 170 mm[Hg] Margoth Scott DESK SERGEANT.THIRD RIGGER Work Phone: [facility] 02-22-2025 08:03-0400 Body temperature 97.8 [degF] Dr. Sreekanth Cortez DO Work Phone: [facility] 02-22-2025 08:03-0400 Diastolic blood pressure 77 mm[Hg] Dr. Sreekanth Cortez DO Work Phone: [facility] 02-22-2025 08:03-0400 Heart rate 74 /min Dr. Sreekanth Cortez DO Work Phone: 9(753)[phone] [place] [address] 02-22-2025 08:03-0400 Respiratory rate 16 /min Dr. Sreekanth Cortez DO Work Phone: 0(665)109-275712 [place] [address] 02-22-2025 08:03-0400 SaO2% (BldA) [Mass fraction] 99 % Dr. Sreekanth Cortez DO Work Phone: 6(385)892-729812 [place] [address] 02-22-2025 08:03-0400 Systolic blood pressure 148 mm[Hg] Dr. Sreekanth Cortez DO Work Phone: 6(022)[phone] [place] [address] 02-22-2025 06:07-0400 Body height 154.[address] Sreekanth Cortez DO Work Phone: 2(915)275-867486 [place] [address] 02-22-2025 06:07-0400 Body mass index (BMI) [Ratio] 26.4 kg/m2 Dr. Sreekanth Cortez DO Work Phone: 2(408)869-520312 [place] [address] 02-22-2025 06:07-0400 Body weight 63.[address] Sreekanth Cortez DO Work Phone: 6(124)447-115786 [place] [address] 02-19-2025 13:22-0400 Diastolic blood pressure 80 mm[Hg] Margoth Scott DESK SERGEANT.THIRD RIGGER Work Phone: 1(935)943-783619 [place] [address] 02-19-2025 13:22-0400 Systolic blood pressure 170 mm[Hg] Margoth Scott DESK SERGEANT.THIRD RIGGER Work Phone: 4(346)020-870519 [place] [address] 02-19-2025 12:35-0400 Body mass index (BMI) [Ratio] 26.25 kg/m2 Margoth Scott DESK SERGEANT.THIRD RIGGER Work Phone: 7(028)487-113619 [place] [address] 02-19-2025 12:35-0400 Body weight 64.05 kg Margoth Scott DESK SERGEANT.THIRD RIGGER Work Phone: [facility] 02-19-2025 12:35-0400 Heart rate 68 /min Margoth Scott DESK SERGEANT.THIRD RIGGER Work Phone: [facility] 02-19-2025 12:35-0400 Respiratory rate 16 /min Margoth Scott DESK SERGEANT.THIRD RIGGER Work Phone: [facility] 02-19-2025 12:35-0400 SaO2% (BldA) [Mass fraction] 98 % Margoth Chavez DESK SERGEANT.THIRD RIGGER Work Phone: [facility] 02-05-2025 08:41-0400 Body mass index (BMI) [Ratio] 26.4 kg/m2 Sreekanth Cortez DO Work Phone: [facility] 02-05-2025 08:41-0400 Body temperature 98.71 [degF] Sreekanth Cortez DO Work Phone: [facility] 02-05-2025 08:41-0400 Body weight 64.41 kg Sreekanth Cortez DO Work Phone: [facility] 02-05-2025 08:41-0400 Diastolic blood pressure 80 mm[Hg] Sreekanth Cortez DO Work Phone: [facility] 02-05-2025 08:41-0400 Heart rate 84 /min Sreekanth Cortez DO Work Phone: [facility] 02-05-2025 08:41-0400 Respiratory rate 20 /min Sreekanth Cortez DO Work Phone: [facility] 02-05-2025 08:41-0400 Systolic blood pressure 180 mm[Hg] Sreekanth Cortez DO Work Phone: [facility] 12-25-2024 13:45-0400 Diastolic blood pressure 87 mm[Hg] Maribeth Podlogar DESK SERGEANT.THIRD RIGGER Work Phone: [facility] Comment on above: ANTONIETA BP average 12-25-2024 13:45-0400 Heart rate 71 /min Maribeth Podlogar DESK SERGEANT.THIRD RIGGER Work Phone: [facility] 12-25-2024 13:45-0400 Systolic blood pressure 199 mm[Hg] Maribeth Podlogar DESK SERGEANT.THIRD RIGGER Work Phone: [facility] Comment on above: ANTONIETA BP average 12-25-2024 13:16-0400 Body mass index (BMI) [Ratio] 26.28 kg/m2 Maribeth Jamesonlogar DESK SERGEANT.THIRD RIGGER Work Phone: [facility] 12-25-2024 13:16-0400 Body weight 64.14 kg Maribeth Podlogar DESK SERGEANT.THIRD RIGGER Work Phone: [facility] 12-25-2024 13:16-0400 Respiratory rate 18 /min Maribeth Podlogar DESK SERGEANT.THIRD RIGGER Work Phone: [facility] 12-25-2024 13:16-0400 SaO2% (BldA) [Mass fraction] 96 % Maribeth Podlogar DESK SERGEANT.THIRD RIGGER Work Phone: [facility] 08-08-2024 08:52-0500 Body mass index (BMI) [Ratio] 26.77 kg/m2 Sreekanth Cortez DO Work Phone: [facility] 08-08-2024 08:52-0500 Body temperature 97.5 [degF] Sreekanth Cortez DO Work Phone: [facility] 08-08-2024 08:52-0500 Body weight 65.32 kg Sreekanth Cortez DO Work Phone: [facility] 08-08-2024 08:52-0500 Diastolic blood pressure 80 mm[Hg] Sreekanth Cortez DO Work Phone: [facility] 08-08-2024 08:52-0500 Heart rate 80 /min Sreekanth Cortez DO Work Phone: [facility] 08-08-2024 08:52-0500 Respiratory rate 16 /min Sreekanth Cortez DO Work Phone: [facility] 08-08-2024 08:52-0500 Systolic blood pressure 140 mm[Hg] Sreekanth Cortez DO Work Phone: [facility] 04-28-2024 08:22-0400 Diastolic blood pressure 80 mm[Hg] Sergei Renner DESK SERGEANT.THIRD RIGGER Work Phone: [facility] Comment on above: bp antonieta average 04-28-2024 08:22-0400 Systolic blood pressure 154 mm[Hg] Sergei Zurdo DESK SERGEANT.THIRD RIGGER Work Phone: [facility] Comment on above: bp antonieta average 04-28-2024 07:35-0400 Body mass index (BMI) [Ratio] 25.88 kg/m2 Sergei Renner DESK SERGEANT.THIRD RIGGER Work Phone: [facility] 04-28-2024 07:35-0400 Body weight 63.14 kg Sergei Renner DESK SERGEANT.THIRD RIGGER Work Phone: [facility] 04-28-2024 07:35-0400 Heart rate 66 /min Sergei Renner DESK SERGEANT.THIRD RIGGER Work Phone: [facility] 04-28-2024 07:35-0400 Respiratory rate 16 /min Sergei Quijanoman DESK SERGEANT.THIRD RIGGER Work Phone: [facility] 04-28-2024 07:35-0400 SaO2% (BldA) [Mass fraction] 97 % Sergei Renner DESK SERGEANT.THIRD RIGGER Work Phone: [facility] 03-23-2024 08:11-0400 Body height 156.2 cm Delilah Cabrera DO Work Phone: [facility] 03-23-2024 08:11-0400 Body mass index (BMI) [Ratio] 25.82 kg/m2 Delilah Ungeralfitkylah DO Work Phone: [facility] 03-23-2024 08:11-0400 Body weight 63 kg Delilah Amalfitkylah DO Work Phone: [facility] 03-23-2024 08:11-0400 Diastolic blood pressure 90 mm[Hg] Delilah Amalfitkylah DO Work Phone: [facility] 03-23-2024 08:11-0400 Heart rate 67 /min Delilah Ungeralfitkylah DO Work Phone: [facility] 03-23-2024 08:11-0400 SaO2% (BldA) [Mass fraction] 97 % Delilah Calvofitkylah DO Work Phone: [facility] 03-23-2024 08:11-0400 Systolic blood pressure 152 mm[Hg] Delilah Deborah DO Work Phone: [facility] 02-14-2024 09:52-0400 Body mass index (BMI) [Ratio] 25.84 kg/m2 Sreekanth Cortez DO Work Phone: [facility] 02-14-2024 09:52-0400 Body temperature 97.3 [degF] Sreekanth Cortez DO Work Phone: [facility] 02-14-2024 09:52-0400 Body weight 63.05 kg Sreekanth Cortez DO Work Phone: [facility] 02-14-2024 09:52-0400 Diastolic blood pressure 90 mm[Hg] Sreekanth Cortez DO Work Phone: [facility] 02-14-2024 09:52-0400 Heart rate 64 /min Sreekanth Cortez DO Work Phone: [facility] 02-14-2024 09:52-0400 Respiratory rate 16 /min Sreekanth Cortez DO Work Phone: [facility] 02-14-2024 09:52-0400 Systolic blood pressure 160 mm[Hg] Sreekanth Cortez DO Work Phone: [facility] 11-24-2023 08:19-0400 Body height 156.2 cm Gabi More APRN.THIRD RIGGER Work Phone: [facility] 11-24-2023 08:19-0400 Body weight 62.6 kg Gabi More APRN.THIRD RIGGER Work Phone: [facility] 11-24-2023 08:19-0400 Diastolic blood pressure 80 mm[Hg] Gabi More APRN.THIRD RIGGER Work Phone: [facility] 11-24-2023 08:19-0400 Heart rate 71 /min Gabi More APRN.THIRD RIGGER Work Phone: [facility] 11-24-2023 08:19-0400 SaO2% (BldA) [Mass fraction] 97 % Gabi More APRN.THIRD RIGGER Work Phone: [facility] 11-24-2023 08:19-0400 Systolic blood pressure 176 mm[Hg] Gabi More APRN.THIRD RIGGER Work Phone: [facility] 11-06-2023 08:19-0400 Body temperature 98.6 [degF] Krislyn Aberegg PA Work Phone: [facility] 11-06-2023 08:19-0400 Body weight 63.1 kg Krislyn Aberegg PA Work Phone: [facility] 11-06-2023 08:19-0400 Diastolic blood pressure 76 mm[Hg] Krislyn Aberegg PA Work Phone: [facility] 11-06-2023 08:19-0400 Heart rate 94 /min Krislyn Aberegg PA Work Phone: [facility] 11-06-2023 08:19-0400 Respiratory rate 16 /min Krislyn Aberegg PA Work Phone: [facility] 11-06-2023 08:19-0400 SaO2% (BldA) [Mass fraction] 95 % Krislyn Aberegg PA Work Phone: [facility] 11-06-2023 08:19-0400 Systolic blood pressure 124 mm[Hg] Krislyn Aberegg PA Work Phone: [facility] 10-27-2023 13:01-0500 Body temperature 98.49 [degF] Sreekanth Cortez DO Work Phone: [facility] 10-27-2023 13:01-0500 Body weight 62.14 kg Sreekanth Cortez DO Work Phone: [facility] 10-27-2023 13:01-0500 Diastolic blood pressure 88 mm[Hg] Sreekanth Cortez DO Work Phone: [facility] 10-27-2023 13:01-0500 Heart rate 80 /min Sreekanth Cortez DO Work Phone: [facility] 10-27-2023 13:01-0500 Respiratory rate 20 /min Sreekanth Cortez DO Work Phone: [facility] 10-27-2023 13:01-0500 Systolic blood pressure 146 mm[Hg] Sreekanth Cortez DO Work Phone: [facility] 10-07-2023 07:46-0500 Body weight 62.32 kg Donita Estes DESK SERGEANT.THIRD RIGGER Work Phone: [facility] 10-07-2023 07:46-0500 Diastolic blood pressure 64 mm[Hg] Donita Estes DESK SERGEANT.THIRD RIGGER Work Phone: [facility] 10-07-2023 07:46-0500 Heart rate 76 /min Donita Estes DESK SERGEANT.THIRD RIGGER Work Phone: [facility] 10-07-2023 07:46-0500 Respiratory rate 16 /min Donita Estes DESK SERGEANT.THIRD RIGGER Work Phone: [facility] 10-07-2023 07:46-0500 SaO2% (BldA) [Mass fraction] 98 % Donita Estes DESK SERGEANT.THIRD RIGGER Work Phone: [facility] 10-07-2023 07:46-0500 Systolic blood pressure 138 mm[Hg] Donita Estes DESK SERGEANT.THIRD RIGGER Work Phone: [facility] 07-21-2023 07:13-0500 Body weight 62.87 kg Donita Estes DESK SERGEANT.THIRD RIGGER Work Phone: [facility] 07-21-2023 07:13-0500 Diastolic blood pressure 60 mm[Hg] Donita Setes DESK SERGEANT.THIRD RIGGER Work Phone: [facility] 07-21-2023 07:13-0500 Heart rate 80 /min Donita Estes DESK SERGEANT.THIRD RIGGER Work Phone: [facility] 07-21-2023 07:13-0500 Respiratory rate 14 /min Donita Estes DESK SERGEANT.THIRD RIGGER Work Phone: [facility] 07-21-2023 07:13-0500 SaO2% (BldA) [Mass fraction] 98 % Donita Estes DESK SERGEANT.THIRD RIGGER Work Phone: [facility] 07-21-2023 07:13-0500 Systolic blood pressure 138 mm[Hg] Donita sEtes DESK SERGEANT.THIRD RIGGER Work Phone: [facility] 07-05-2023 14:01-0500 Body temperature 98.91 [degF] Sreekanth Cortez DO Work Phone: [facility] 07-05-2023 14:01-0500 Body weight 63.5 kg Sreekanth Cortez DO Work Phone: [facility] 07-05-2023 14:01-0500 Diastolic blood pressure 84 mm[Hg] Sreekanth Cortez DO Work Phone: [facility] 07-05-2023 14:01-0500 Heart rate 80 /min Sreekanth Cortez DO Work Phone: [facility] 07-05-2023 14:01-0500 Respiratory rate 16 /min Sreekanth Cortez DO Work Phone: [facility] 07-05-2023 14:01-0500 Systolic blood pressure 138 mm[Hg] Sreekanth Cortez DO Work Phone: [facility] 06-29-2023 15:17-0500 Heart rate 78 /min [facility] 06-29-2023 15:17-0500 Respiratory rate 18 /min [facility] 06-29-2023 15:17-0500 SaO2% (BldA) [Mass fraction] 98 % [facility] 06-29-2023 11:38-0500 Diastolic blood pressure 68 mm[Hg] [facility] 06-29-2023 11:38-0500 Systolic blood pressure 151 mm[Hg] [facility] 06-29-2023 10:47-0500 Body height 154.94 cm [facility] 06-29-2023 10:47-0500 Body mass index (BMI) [Ratio] 26.6 kg/m2 [facility] 06-29-2023 10:47-0500 Body temperature 96.5 [degF] [facility] 06-29-2023 10:47-0500 Body weight 63.95 kg [facility] 06-16-2023 08:27-0400 Body weight 63.14 kg Donita Estes DESK SERGEANT.THIRD RIGGER Work Phone: [facility] 06-16-2023 08:27-0400 Diastolic blood pressure 60 mm[Hg] Donita Estes DESK SERGEANT.THIRD RIGGER Work Phone: [facility] 06-16-2023 08:27-0400 Heart rate 68 /min Donita Estes DESK SERGEANT.THIRD RIGGER Work Phone: [facility] 06-16-2023 08:27-0400 Respiratory rate 16 /min Donita Estes DESK SERGEANT.THIRD RIGGER Work Phone: [facility] 06-16-2023 08:27-0400 Systolic blood pressure 142 mm[Hg] Donita Estes DESK SERGEANT.THIRD RIGGER Work Phone: [facility] 05-17-2023 15:03-0400 Body weight 63.5 kg Donita Estes DESK SERGEANT.THIRD RIGGER Work Phone: [facility] 05-17-2023 15:03-0400 Diastolic blood pressure 60 mm[Hg] Donita Estes DESK SERGEANT.THIRD RIGGER Work Phone: [facility] 05-17-2023 15:03-0400 Heart rate 100 /min Donita Estes DESK SERGEANT.THIRD RIGGER Work Phone: [facility] 05-17-2023 15:03-0400 Respiratory rate 16 /min Donita Estes DESK SERGEANT.THIRD RIGGER Work Phone: [facility] 05-17-2023 15:03-0400 Systolic blood pressure 130 mm[Hg] Donita Estes DESK SERGEANT.THIRD RIGGER Work Phone: [facility] 03-31-2023 17:35-0400 Body temperature 97.5 [degF] Sreekanth Cortez DO Work Phone: [facility] 03-31-2023 17:35-0400 Body weight 63.5 kg Sreekanth Cortez DO Work Phone: [facility] 03-31-2023 17:35-0400 Diastolic blood pressure 70 mm[Hg] Sreekanth Cortez DO Work Phone: [facility] 03-31-2023 17:35-0400 Heart rate 80 /min Sreekanth Cortez DO Work Phone: [facility] 03-31-2023 17:35-0400 Respiratory rate 16 /min Sreekanth Cortez DO Work Phone: [facility] 03-31-2023 17:35-0400 Systolic blood pressure 134 mm[Hg] Sreekanth Cortez DO Work Phone: [facility] 03-20-2023 19:13-0400 Body temperature 98 [degF] [facility] 03-20-2023 19:13-0400 Diastolic blood pressure 68 mm[Hg] [facility] 03-20-2023 19:13-0400 Heart rate 70 /min [facility] 03-20-2023 19:13-0400 Respiratory rate 14 /min [facility] 03-20-2023 19:13-0400 Systolic blood pressure 143 mm[Hg] [facility] 03-20-2023 17:10-0400 Body height 154.94 cm [facility] 03-20-2023 17:10-0400 Body mass index (BMI) [Ratio] 26.2 kg/m2 [facility] 03-20-2023 17:10-0400 Body weight 62.91 kg [facility] 03-20-2023 17:10-0400 SaO2% (BldA) [Mass fraction] 95 % [facility] 03-15-2023 07:45-0400 Body height 157 cm Sreekanth Cortez DO Work Phone: [facility] 03-15-2023 07:45-0400 Body temperature 97.11 [degF] Sreekanth Cortez DO Work Phone: [facility] 03-15-2023 07:45-0400 Body weight 63.05 kg Sreekanth Cortez DO Work Phone: [facility] 03-15-2023 07:45-0400 Diastolic blood pressure 80 mm[Hg] Sreekanth Cortez DO Work Phone: [facility] 03-15-2023 07:45-0400 Heart rate 60 /min Sreekanth Cortez DO Work Phone: [facility] 03-15-2023 07:45-0400 Respiratory rate 16 /min Sreekanth Cortez DO Work Phone: [facility] 03-15-2023 07:45-0400 Systolic blood pressure 138 mm[Hg] Sreekanth Cortez DO Work Phone: [facility] 03-10-2023 10:27-0400 Diastolic blood pressure 71 mm[Hg] Marilyn Gutierrez PA-C Work Phone: [facility] 03-10-2023 10:27-0400 Heart rate 66 /min Marilyn Gutierrez PA-C Work Phone: [facility] 03-10-2023 10:27-0400 Systolic blood pressure 133 mm[Hg] Marilyn Gutierrez PA-C Work Phone: [facility] 03-10-2023 09:56-0400 Body temperature 98.6 [degF] Marilyn Gutierrez PA-C Work Phone: [facility] 03-10-2023 09:56-0400 Body weight 62.6 kg Marilyn Gutierrez PA-C Work Phone: [facility] 03-10-2023 09:56-0400 Respiratory rate 16 /min Marilyn Gutierrez PA-C Work Phone: [facility] 03-10-2023 09:56-0400 SaO2% (BldA) [Mass fraction] 96 % Marilyn Gutierrez PA-C Work Phone: [facility] 12-25-2022 14:40-0400 Diastolic blood pressure 80 mm[Hg] Sreekanth Cortez DO Work Phone: [facility] 12-25-2022 14:40-0400 Systolic blood pressure 150 mm[Hg] Sreekanth Cortez DO Work Phone: [facility] 12-25-2022 13:45-0400 Body temperature 97 [degF] Sreekanth Cortez DO Work Phone: [facility] 12-25-2022 13:45-0400 Body weight 64.86 kg Sreekanth Cortez DO Work Phone: [facility] 12-25-2022 13:45-0400 Heart rate 72 /min Sreekanth Cortez DO Work Phone: [facility] 12-25-2022 13:45-0400 Respiratory rate 16 /min Sreekanth Cortez DO Work Phone: [facility] 08-31-2022 09:14-0500 Body temperature 98.49 [degF] Sreekanth Cortez DO Work Phone: [facility] 08-31-2022 09:14-0500 Body weight 65.32 kg Sreekanth Cortez DO Work Phone: [facility] 08-31-2022 09:14-0500 Diastolic blood pressure 94 mm[Hg] Sreekanth Cortez DO Work Phone: [facility] 08-31-2022 09:14-0500 Heart rate 76 /min Sreekanth Cortez DO Work Phone: [facility] 08-31-2022 09:14-0500 Respiratory rate 20 /min Sreekanth Cortez DO Work Phone: [facility] 08-31-2022 09:14-0500 Systolic blood pressure 138 mm[Hg] Sreekanth Cortez DO Work Phone: [facility] 07-08-2022 07:44-0500 Body weight 64.77 kg Sergei Renner APRN.THIRD RIGGER Work Phone: [facility] 07-08-2022 07:44-0500 Diastolic blood pressure 82 mm[Hg] Sergei Zurdo DESK SERGEANT.THIRD RIGGER Work Phone: [facility] 07-08-2022 07:44-0500 Heart rate 70 /min Sergei Zurdo DESK SERGEANT.THIRD RIGGER Work Phone: [facility] 07-08-2022 07:44-0500 Respiratory rate 16 /min Sergei Zurdo DESK SERGEANT.THIRD RIGGER Work Phone: [facility] 07-08-2022 07:44-0500 SaO2% (BldA) [Mass fraction] 96 % Sergei Zurdo DESK SERGEANT.THIRD RIGGER Work Phone: [facility] 07-08-2022 07:44-0500 Systolic blood pressure 130 mm[Hg] Sergei Zurdo DESK SERGEANT.THIRD RIGGER Work Phone: [facility] 04-06-2022 15:12-0400 Body temperature 98.2 [degF] Yann French MD Work Phone: [facility] 04-06-2022 15:12-0400 Body weight 66.59 kg Yann French MD Work Phone: [facility] 04-06-2022 15:12-0400 Diastolic blood pressure 84 mm[Hg] Yann French MD Work Phone: [facility] 04-06-2022 15:12-0400 Heart rate 85 /min Yann French MD Work Phone: [facility] 04-06-2022 15:12-0400 Respiratory rate 21 /min Yann French MD Work Phone: [facility] 04-06-2022 15:12-0400 SaO2% (BldA) [Mass fraction] 99 % Yann French MD Work Phone: [facility] 04-06-2022 15:12-0400 Systolic blood pressure 122 mm[Hg] Yann French MD Work Phone: [facility] 02-25-2022 11:26-0400 Diastolic blood pressure 60 mm[Hg] Donita Gonzales DESK SERGEANT.THIRD RIGGER Work Phone: [facility] 02-25-2022 11:26-0400 Heart rate 100 /min Donita Zurawick DESK SERGEANT.THIRD RIGGER Work Phone: [facility] 02-25-2022 11:26-0400 Systolic blood pressure 136 mm[Hg] Donita Zurawick DESK SERGEANT.THIRD RIGGER Work Phone: [facility] 02-25-2022 10:50-0400 Body height 153 cm Donita Zurawick DESK SERGEANT.THIRD RIGGER Work Phone: [facility] 02-25-2022 10:50-0400 Body weight 64.45 kg Donita Zurawick DESK SERGEANT.THIRD RIGGER Work Phone: [facility] 02-25-2022 10:50-0400 Respiratory rate 16 /min Donita Zurawick DESK SERGEANT.THIRD RIGGER Work Phone: [facility] Encounters Encounter Date Encounter Type Care Provider Facility Start: 03-28-2025 End: 03-28-2025 ambulatory SREEKANTH L CORTEZ Facility:[facility] Start: 03-28-2025 End: 03-28-2025 ambulatory SREEKANTH L CORTEZ Facility:[facility] Start: 03-17-2025 End: 03-21-2025 Telephone encounter Sreekanth Sung Jimeneson DO Work Phone: [facility] [place] Comment on above: Patient Question (He art rate) Start: 2025 End: 2025 Office outpatient visit 25 minutes Margoth Chavez DESK SERGEANT.THIRD RIGGER Work Phone: [facility] [place] Comment on above: Hypertension, essent ial (Primary Dx); Hyponatremia; Screening for depression; Encounter for screening examination for other mental health and behavioral disorders Start: 2025 End: 2025 ambulatory SREEKANTH L CORTEZ Facility:[facility] Start: 03-08-2025 End: 03-08-2025 Telephone encounter Sreekanth Jimeneson DO Work Phone: [facility] Comment on above: Transition Of Care Start: 03-08-2025 End: 03-08-2025 ambulatory MARGOTH CHAVEZ Facility:[facility] Start: 02-28-2025 End: 02-28-2025 Telephone encounter Sreekanth Cortez DO Work Phone: N[facility] Comment on above: Transition Of Care Start: 02-26-2025 End: 02-26-2025 Office outpatient visit 25 minutes Margoth Averyo DESK SERGEANT.THIRD RIGGER Work Phone: [facility] [place] Comment on above: Hyponatremia (Primar y Dx); Hypertension, essential Start: 02-26-2025 End: 02-26-2025 ambulatory [facility] Facility:[facility] Start: 02-24-2025 End: 02-25-2025 ambulatory SREEKANTH CORTEZ Facility:[facility] Start: 02-22-2025 End: 02-22-2025 Emergency department patient visit Dr. Sreekanth Cortez DO Work Phone: -Emergency Department Work Phone: Start: 02-19-2025 End: 02-19-2025 ambulatory [facility] Facility:[facility] Start: 02-19-2025 End: 02-19-2025 Office outpatient visit 25 minutes Margoth Chavez DESK SERGEANT.THIRD RIGGER Work Phone: [facility] [place] Comment on above: Labile blood pressur e (Primary Dx); Hypertension, essential; Hyponatremia; Fatigue, unspecified type Start: 02-19-2025 End: 02-19-2025 ambulatory [facility] Facility:[facility] Start: 02-05-2025 End: 02-05-2025 Patient encounter procedure Sreekanth Cortez DO Work Phone: [facility] [place] Comment on above: Hypertension, essent ial (Primary Dx); Stage 3a chronic kidney disease (HCC); Hypothyroidism, unspecified type; Fatigue, unspecified type; Dyslipidemia; Hyponatremia Start: 02-05-2025 End: 02-05-2025 ambulatory SREEKANTH CORTEZ Facility:[facility] Start: 12-25-2024 End: 12-25-2024 Telephone encounter Marilyn Gutierrez PA-C Work Phone: [facility] [place] Comment on above: Patient Update; Appo intment Start: 12-25-2024 End: 12-25-2024 Patient encounter procedure Maribeth Griffiths APRN.THIRD RIGGER Work Phone: [facility] [place] Comment on above: Hypertension, essent ial (Primary Dx) Start: 12-25-2024 End: 12-25-2024 ambulatory SREEKANTH L CORTEZ Facility:[facility] Start: 11-21-2024 End: 11-21-2024 Follow-up encounter Sergei Renner APRN.CNP Work Phone: [facility] [place] Comment on above: Results Start: 11-21-2024 End: 11-28-2024 Telephone encounter Sreekanth L Cortez DO Work Phone: [facility] [place] Comment on above: Patient Update (BP r eadings) Start: 11-16-2024 End: 11-16-2024 ambulatory SREEKANTH L CORTEZ Facility:[facility] Start: 11-09-2024 End: 11-09-2024 Refill Sreekanth L Cortez DO Work Phone: [address] [place] [address] Comment on above: Refill Request Start: 10-11-2024 End: 10-11-2024 Refill Sreekanth L Cortez DO Work Phone: [facility] [place] Comment on above: Refill Request Start: 08-08-2024 End: 08-08-2024 Patient encounter procedure Sreekanth L Cortez DO Work Phone: [facility] [place] Comment on above: Hypothyroidism, unsp ecified type (Primary Dx); Hypertension, essential; Stage 3a chronic kidney disease (HCC); Other iron deficiency anemia; Dyslipidemia; Vitamin D deficiency; Fatigue, unspecified type; Essential hypertension Start: 08-08-2024 End: 08-08-2024 ambulatory SREEKANTH L CORTEZ Facility:[facility] Start: 07-12-2024 End: 07-13-2024 Telephone encounter Sergei Renner APRN.CNP Work Phone: [facility] [place] Comment on above: Results; Orders Start: 07-10-2024 End: 07-10-2024 ambulatory SERGEI QUIJANOMAN Facility:[facility] Start: 06-06-2024 End: 06-06-2024 Telephone encounter Sreekanth Cortez DO Work Phone: [facility] [place] Comment on above: Medication Problem Start: 05-02-2024 End: 05-02-2024 Telephone encounter Sergei Zurdo PRESLEY.THIRD RIGGER Work Phone: [facility] [place] Comment on above: Results; Orders Start: 04-28-2024 End: 07-19-2024 Telephone encounter Sergei Zurdo PRESLEY.THIRD RIGGER Work Phone: [facility] [place] Comment on above: contact outside [facility] ider Start: 04-28-2024 End: 04-28-2024 ambulatory SREEKANTH CORTEZ Facility:[facility] Start: 04-28-2024 End: 04-28-2024 ambulatory SREEKANTH CORTEZ Facility:[facility] Start: 04-28-2024 End: 04-28-2024 Patient encounter procedure Sergei Zurdoyasmin PRESLEY.THIRD RIGGER Work Phone: [facility] [place] Comment on above: Hypertension, essent [...] encounter procedure Sreekanth Cortez DO Work Phone: [facility] [place] Comment on above: Essential hypertensi on (Primary Dx); Stage 3a chronic kidney disease (HCC); Hypothyroidism, unspecified type; Other iron deficiency anemia; Vitamin D deficiency Start: 02-09-2024 Telephone encounter Sreekanth shrestha DO Work Phone: [facility] [place] Comment on above: checking to see if l abs are needed Start: 11-24-2023 End: 11-24-2023 Office outpatient visit 15 minutes Gabi More APRN.THIRD RIGGER Work Phone: Cardiology Comment on above: Hyponatremia (Primar y Dx); Hypertension, essential; Palpitation; Hypothyroidism, unspecified type; Iatrogenic hyperthyroidism Start: 11-10-2023 Refill Sreekanth roper DO Work Phone: [facility] Comment on above: Refill Request Start: 11-07-2023 Telephone encounter Justice SIMPSON Work Phone: [facility] Comment on above: Results Start: 11-06-2023 End: 11-06-2023 Subsequent hospital visit by physician Xr [facility] [place] Work Phone: Radiology Comment on above: Acute cough [R05.1] Start: 11-06-2023 End: 11-06-2023 Patient encounter procedure Justice SIMPSON Work Phone: [facility] [place] [facility] Comment on above: Acute cough (Primary Dx); URI, acute Start: 10-27-2023 End: 10-27-2023 Patient encounter procedure Sreekanth Cortez DO Work Phone: [facility] Comment on above: Essential hypertensi on (Primary Dx); Stage 3a chronic kidney disease (HCC); Hyponatremia; Hypothyroidism, unspecified type Start: 10-14-2023 E-mail encounter fro m caregiver Gabi More APRN.THIRD RIGGER Work Phone: [facility] Start: 10-14-2023 Patient encounter procedure Gabi More APRN.THIRD RIGGER Work Phone: Cardiology Comment on above: Appointment Start: 10-11-2023 Refill Donita Estes APRN.THIRD RIGGER Work Phone: [facility] Comment on above: Refill Request Start: 10-11-2023 Refill Sreekanth roper DO Work Phone: [facility] Comment on above: Refill Request Start: 10-08-2023 Telephone encounter Donita roper DESK SERGEANT.THIRD RIGGER Work Phone: [facility] Comment on above: Results Start: 10-07-2023 End: 10-07-2023 Patient encounter procedure Donita Estes DESK SERGEANT.THIRD RIGGER Work Phone: [facility] Comment on above: Essential hypertensi on (Primary Dx); Hyponatremia; Hypothyroidism, unspecified type; Other iron deficiency anemia; Dyslipidemia Start: 09-11-2023 Telephone encounter Sreekanth [facility]restha DO [facility] Start: 08-05-2023 Telephone encounter Donita roper DESK SERGEANT.THIRD RIGGER Work Phone: [facility] Comment on above: Results Start: 07-28-2023 Telephone encounter Donita roper DESK SERGEANT.THIRD RIGGER Work Phone: [facility] Comment on above: Results Start: 07-26-2023 Telephone encounter Sreekanth shrestha DO Work Phone: [facility] Comment on above: Patient Question; La b Orders Start: 07-23-2023 Telephone encounter Sreekanth shrestha DO Work Phone: [facility] Comment on above: Results; concerns Start: 07-21-2023 End: 07-21-2023 Patient encounter procedure Donita Estes DESK SERGEANT.THIRD RIGGER Work Phone: [facility] Comment on above: Dizziness (Primary D x); Hypothyroidism, unspecified type; Essential hypertension; CHECO (generalized anxiety disorder); Hyponatremia Start: 07-08-2023 Telephone encounter Sreekanth shrestha DO Work Phone: [facility] Comment on above: Patient Question Start: 07-05-2023 End: 07-05-2023 Patient encounter procedure Sreekanth Sung Cortez DO Work Phone: [facility] Comment on above: Hyponatremia (Primar y Dx); Anemia, unspecified type; Hypothyroidism, unspecified type; Dizziness; Essential hypertension; Fatigue, unspecified type; Shakiness Start: 06-29-2023 End: 06-29-2023 Emergency department patient visit [facility] Work Phone: Start: 06-29-2023 End: 06-29-2023 Patient encounter procedure Yuan Carneylori DESK SERGEANT.THIRD RIGGER Work Phone: [facility] Comment on above: Procedure not enmanuel d out (Primary Dx) Start: 06-22-2023 Telephone encounter Sreekanth Sung Mckeon henrietta DO Work Phone: [facility] Comment on above: Clearance Form from [facility] Start: 06-17-2023 Telephone encounter Donitabilly roper DESK SERGEANT.THIRD RIGGER Work Phone: [facility] Comment on above: Results Start: 06-16-2023 End: 06-16-2023 Patient encounter procedure Donita Estes DESK SERGEANT.THIRD RIGGER Work Phone: [facility] Comment on above: Low sodium levels (P rimary Dx); Hypothyroidism, unspecified type; Other iron deficiency anemia; Dizziness Start: 06-09-2023 Telephone encounter Sreekanth Almaraz Mike kallitorey DO Work Phone: [facility] Start: 05-17-2023 End: 05-17-2023 Patient encounter procedure Donita Estes DESK SERGEANT.THIRD RIGGER Work Phone: [facility] Comment on above: Dizziness (Primary D x); Hypothyroidism, unspecified type; Essential hypertension Start: 03-31-2023 End: 03-31-2023 Patient encounter procedure Sreekanth Sung Jimeneson DO Work Phone: [facility] Comment on above: Essential hypertensi on (Primary Dx); Dysuria; Hypothyroidism, unspecified type Start: 03-20-2023 End: 03-20-2023 Emergency department patient visit [facility] Work Phone: Start: 03-15-2023 Refill Donitalexis Ibarrason DESK SERGEANT.THIRD RIGGER Work Phone: [facility] Comment on above: Refill Request Start: 03-15-2023 End: 03-15-2023 Patient encounter procedure Sreekanth Sung Cortez DO Work Phone: [facility] Comment on above: Essential hypertensi on (Primary Dx); Hypothyroidism, unspecified type; Bilateral leg edema; Lumbar radiculopathy; Other iron deficiency anemia; Dyslipidemia Start: 03-11-2023 Refill Donita Estes DESK SERGEANT.THIRD RIGGER Work [facility]: [facility] Comment on above: Refill Request Start: 03-10-2023 ambulatory Sreekanth roper DO Work Phone: [facility] [place] Comment on above: Dizziness; Hypertens ion Start: 03-10-2023 End: 03-10-2023 Patient encounter procedure Marilyn Gutierrez PA-C Work Phone: [facility] [place] Comment on above: Essential hypertensi on (Primary Dx) Start: 03-09-2023 Refill Donita Estes DESK SERGEANT.THIRD RIGGER Work Phone: [facility] [place] Comment on above: Refill Request Start: 12-31-2022 Telephone encounter Sreekanth mahantorey DO Work Phone: [facility] Comment on above: Results Start: 12-25-2022 End: 12-25-2022 Subsequent hospital visit by physician Andre [facility] [place] Work Phone: Radiology Comment on above: Lumbar radiculopathy [M54.16] Start: 12-25-2022 End: 12-25-2022 Patient encounter procedure Sreekanth Cortez DO Work Phone: [facility] [place] Comment on above: Lumbar radiculopathy (Primary Dx); Chronic midline low back pain with bilateral sciatica Start: 09-12-2022 Refill Donita Estes DESK SERGEANT.THIRD RIGGER Work Phone: [facility] [place] Comment on above: Refill Request Start: 09-10-2022 Refill Donita Estes DESK SERGEANT.THIRD RIGGER Work Phone: [facility] [place] Comment on above: Refill Request Start: 08-31-2022 End: 08-31-2022 Patient encounter procedure Sreekanth Cortez DO Work Phone: [facility] [place] Comment on above: Essential hypertensi on (Primary Dx); Gastroesophageal reflux disease, unspecified whether esophagitis present; Bilateral leg edema; Hypothyroidism, unspecified type; Vitamin D deficiency; Stage 3a chronic kidney disease (HCC); Dyslipidemia; Other iron deficiency anemia Start: 08-10-2022 Telephone encounter Sergei Partida DESK SERGEANT.THIRD RIGGER Work Phone: [facility] [place] Comment on above: Covid19 Concern Start: 08-10-2022 End: 08-10-2022 ambulatory Sergei Renner DESK SERGEANT.THIRD RIGGER Work Phone: [facility] [place] Comment on above: COVID (Primary Dx) Start: 08-10-2022 End: 08-10-2022 Telemedicine consultation with patient Sergei Renner DESK SERGEANT.THIRD RIGGER Work Phone: [facility] [place] Start: 07-08-2022 End: 07-08-2022 Patient encounter procedure Sergei Renner DESK SERGEANT.THIRD RIGGER Work Phone: [facility] [place] Comment on above: Essential hypertensi on (Primary Dx); Gastroesophageal reflux disease, unspecified whether esophagitis present Start: 04-06-2022 End: 04-06-2022 Patient encounter procedure Yann French MD Work Phone: [facility] [place] [facility] Comment on above: Acute left flank george n (Primary Dx); Urinary frequency Start: 02-26-2022 Telephone encounter Donita noel DESK SERGEANT.THIRD RIGGER Work Phone: [facility] [place] Comment on above: Results Start: 02-25-2022 End: 02-25-2022 Patient encounter procedure Donita Gonzales DESK SERGEANT.THIRD RIGGER Work Phone: [facility] [place] Comment on above: Essential hypertensi on (Primary Dx); Bilateral leg edema; Hypothyroidism, unspecified type; Vitamin D deficiency; Stage 3a chronic kidney disease (HCC); Dyslipidemia; Other iron deficiency anemia; Screening for diabetes mellitus Start: 09-01-2018 Patient encounter procedure JOE RIOS [facility] Start: 02-24-2017 Ambulatory Mercedesmarybel [facility] Procedures Date Procedure Procedure Detail Performing Clinician Start: 2025 Adult depression scr eening assessment Margoth Chavez DESK SERGEANT.THIRD RIGGER Work Phone: Start: 02-22-2025 CT of head without contrast Dr. Sreekanth Cortez DO Work Phone: Start: 02-22-2025 X-ray of chest, PA a nd lateral views Dr. Sreekanth Cortez DO Work Phone: Start: 02-22-[address] Sreekanth Cortez DO Work Phone: Start: 02-14-2024 Adult depression scr eening assessment Delilah Ungeryvonne DO Work Phone: Start: 11-24-2023 Ecg routine ecg w/le ast 12 lds i&r only [facility] Provider Start: 11-06-2023 Radiologic exam ches t 2 views Justice SIMPSON Work Phone: Start: 06-29-2023 CT of head without contrast Start: 05-17-2023 Urnls dip stick/tabl et rgnt auto w/o microscopy Donita Estes DESK SERGEANT.THIRD RIGGER Work Phone: Start: 03-31-2023 Urnls dip stick/tabl et rgnt auto w/o microscopy Sreekanth Cortez DO Work Phone: Start: 03-20-2023 Urine culture Start: 12-25-2022 Radex spine lumbosac ral 2/3 views Sreekanth Cortez DO Work Phone: Start: 04-06-2022 Urnls dip stick/tabl et rgnt auto w/o microscopy Yuan Syed DESK SERGEANT.THIRD RIGGER Work Phone: Start: 02-25-2022 Adult depression scr eening assessment Donita Gonzales DESK SERGEANT.THIRD RIGGER Work Phone: Plan of Treatment Date Care Activity Detail Author Start: 03-08-2028 Diabetes Screening Diabetes Screening [facility] Start: 02-26-2028 Diabetes Screening Diabetes Screening [facility] Start: 02-20-2028 Diabetes Screening Diabetes Screening [facility] Start: 11-17-2027 Diabetes Screening Diabetes Screening [facility] Start: 04-28-2027 Diabetes Screening Diabetes Screening [facility] Start: 02-09-2027 Diabetes Screening Diabetes Screening [facility] Start: 11-22-2026 Diabetes Screening Diabetes Screening [facility] Start: 10-07-2026 Diabetes Screening Diabetes Screening [facility] Start: 09-08-2026 Diabetes Screening Diabetes Screening [facility] Start: 08-04-2026 Diabetes Screening Diabetes Screening [facility] Start: 07-21-2026 Diabetes Screening Diabetes Screening [facility] Start: 07-02-2026 Diabetes Screening Diabetes Screening [facility] Start: 06-16-2026 Diabetes Screening Diabetes Screening [facility] Start: 05-20-2026 Diabetes Screening Diabetes Screening [facility] Start: 2026 Anxiety Screening Anxiety Screening [facility] Start: 2026 Depression Screening Depression Screening [facility] Start: 2026 RSV Vaccine (1 - 1-dose 75+ series) RSV Vaccine (1 - 1-dose 75+ series) [facility] Comment on above: Postponed from 2017 (Declined at t his time) Start: 2026 Urine microalbumin profile DTaP,Tdap,Td Vaccine (1 - Tdap) [facility] Comment on above: Postponed from 1961 (Declined at t his time) Start: 03-10-2026 DIABETES SCREEN DIABETES SCREEN [facility] Start: 03-10-2026 Diabetes Screening Diabetes Screening [facility] Start: 02-26-2026 Covid-19 Vaccine ( season) Covid-19 Vaccine ( season) [facility] Comment on above: Postponed from 04/23/2024 (Declined at t his time) Start: 11-18-2025 DIABETES SCREEN DIABETES SCREEN [facility] Start: 05-14-2025 End: 05-14-2025 Patient encounter procedure 05/14/2025 2:20 PM EDT Office Visit Family Veronica Leblanc [address] [place] [id number] Sreekanth Cortez DO [address] [place] [id number] 3 month follow up Family [facility] Comment on above: 3 month follow up Start: 05-08-2025 End: 08-07-2025 CBC panel - Blood by Automated count COMPLETE BLOOD COUNT Lab Routine Hypertension, essential Stage 3a chronic kidney disease (HCC) Expected: 05/08/2025, Expires: 08/07/2025 [facility] Comment on above: Expected: 05/08/2025, Expires: Start: 05-08-2025 End: 08-07-2025 Comprehensive metabolic 2000 panel - Serum or Plasma COMPREHENSIVE METABOLIC PANEL Lab Routine Hyponatremia Expected: 05/08/2025, Expires: 08/07/2025 [facility] Work Phone: Comment on above: Expected: 05/08/2025, Expires: Start: 05-08-2025 End: 08-07-2025 Thyrotropin [Units/volume] in Serum or Plasma THYROID STIMULATING HORMONE Lab Routine Hypothyroidism, unspecified type Expected: 05/08/2025, Expires: 08/07/2025 [facility] Comment on above: Expected: 05/08/2025, Expires: Start: 05-08-2025 End: 08-07-2025 Thyroxine (T4) free [Mass/volume] in Serum or Plasma T4 FREE/FREE THYROXINE Lab Routine Hypothyroidism, unspecified type Expected: 05/08/2025, Expires: 08/07/2025 [facility] Comment on above: Expected: 05/08/2025, Expires: Start: 04-23-2025 [facility] Start: 04-12-2025 End: 07-12-2025 Basic metabolic 2000 panel - Serum or Plasma BASIC METABOLIC PANEL Lab Routine Hyponatremia Expected: 04/12/2025, Expires: 07/12/2025 [facility] Work Phone: Comment on above: Expected: 04/12/2025, Expires: Start: 2025 End: 2025 Patient encounter procedure 2025 11:20 AM EDT Office Visit [facility] [place] [address] [place] [address] Margoth Chavez APRN.[facility] [address] [place] [address] 2 week f/up [facility] Comment on above: 2 week f/up Start: 03-08-2025 End: 06-07-2025 Basic metabolic 2000 panel - Serum or Plasma BASIC METABOLIC PANEL Lab Routine Hypertension, essential Hyponatremia Expected: 03/08/2025, Expires: 06/07/2025 [facility] Work Phone: Comment on above: Expected: 03/08/2025, Expires: Start: 02-26-2025 End: 02-26-2025 Patient encounter procedure 02/26/2025 9:00 AM EDT Office Visit [facility] [address] [place], [place] [id number] Margoth Chavez APRN.THIRD RIGGER [address] [place] [address] 2 week f/up [facility] Comment on above: 2 week f/up Start: 02-25-2025 DIABETES SCREEN DIABETES SCREEN [facility] Start: 02-22-2025 [facility] Start: 02-22-2025 [facility] Start: 02-13-2025 Anxiety Screening Anxiety Screening [facility] Start: 02-13-2025 Depression Screening Depression Screening [facility] Start: 02-05-2025 End: 02-05-2025 Patient encounter procedure 02/05/2025 9:00 AM EDT [facility] [facility] [address] [place], [place] [id number] Sreekanth Cortez, DO [address] [place] [address] 6 month follow up [facility] Comment on above: 6 month follow up Start: 08-24-2024 End: 11-23-2024 Thyrotropin [Units/volume] in Serum or Plasma THYROID STIMULATING HORMONE Lab Routine Hypothyroidism, unspecified type Expected: 08/24/2024, Expires: 11/23/2024 [facility] Work Phone: Comment on above: Expected: 08/24/2024, Expires: Start: 08-24-2024 End: 11-23-2024 Thyroxine (T4) free [Mass/volume] in Serum or Plasma T4 FREE/FREE THYROXINE Lab Routine Hypothyroidism, unspecified type Expected: 08/24/2024, Expires: 11/23/2024 [facility] Comment on above: Expected: 08/24/2024, Expires: Start: 08-23-2024 Advance Directive Discussion Advance Directive Discussion [facility] Start: 08-23-2024 Medicare Advantage Annual Wellness Visit Medicare Advantage Annual Wellness Visit [facility] Start: 08-20-2024 DIABETES SCREEN DIABETES SCREEN [facility] Start: 08-20-2024 RSV Vaccine (1 - 1-dose 60+ series) RSV Vaccine (1 - 1-dose 60+ series) [facility] Comment on above: Postponed from 2002 (Declined at t his time) Start: 08-20-2024 RSV Vaccine (1 - 1-dose 75+ series) RSV Vaccine (1 - 1-dose 75+ series) [facility] Comment on above: Postponed from 2017 (Declined at t his time) Start: 08-08-2024 End: 08-08-2024 Patient encounter procedure 08/08/2024 9:00 AM EST Office Visit Family Veronica Leblanc [address] [place] [address] Sreekanth Cortez DO [address] [place] [address] 6 month follow up Family [facility] Leblanc Comment on above: 6 month follow up Start: 07-28-2024 End: 10-27-2024 CBC panel - Blood by Automated count COMPLETE BLOOD COUNT Lab Routine Hypertension, essential Hypothyroidism, unspecified type Other iron deficiency anemia Expected: 07/28/2024, Expires: 10/27/2024 [facility] Comment on above: Expected: 07/28/2024, Expires: Start: 06-13-2024 End: 09-12-2024 Thyrotropin [Units/volume] in Serum or Plasma THYROID STIMULATING HORMONE Lab Routine Hypothyroidism, unspecified type Expected: 06/13/2024, Expires: 09/12/2024 [facility] Work Phone: Comment on above: Expected: 06/13/2024, Expires: 5 Start: 06-13-2024 End: 09-12-2024 Thyroxine (T4) free [Mass/volume] in Serum or Plasma T4 FREE/FREE THYROXINE Lab Routine Hypothyroidism, unspecified type Expected: 06/13/2024 (Approximate), Expires: 09/12/2024 [facility] Comment on above: Expected: 06/13/2024 (Approximate), Expi res: 09/12/2024 Start: 05-17-2024 Covid-19 Vaccine ( season) Covid-19 Vaccine () [facility] Comment on above: Postponed from 04/23/2023 (Declined at t his time) Start: 05-17-2024 Covid-19 Vaccine (4 - Moderna series) Covid-19 Vaccine (4 - Moderna series) [facility] Comment on above: Postponed from 09/30/2021 (Declined at t his time) Start: 05-17-2024 Urine microalbumin profile DTaP,Tdap,Td Vaccine (1 - Tdap) [facility] Comment on above: Postponed from 1961 (Declined at t his time) Start: 04-28-2024 End: 07-28-2024 Comprehensive metabolic 2000 panel - Serum or Plasma [facility] Comment on above: Expected: 04/28/2024, Expires: 4 Start: 04-28-2024 End: 07-28-2024 Ferritin [Mass/volume] in Serum or Plasma [facility] Comment on above: Expected: 04/28/2024, Expires: 4 Start: 04-28-2024 End: 07-28-2024 Iron and Iron binding capacity panel - Serum or Plasma [facility] Comment on above: Expected: 04/28/2024, Expires: 4 Start: 04-28-2024 End: 07-28-2024 Thyrotropin [Units/volume] in Serum or Plasma [facility] Work Phone: Comment on above: Expected: 04/28/2024, Expires: Start: 04-28-2024 End: 07-28-2024 Thyroxine (T4) free [Mass/volume] in Serum or Plasma [facility] Comment on above: Expected: 04/28/2024, Expires: Start: 04-23-2024 Covid-19 Vaccine () Covid-19 Vaccine () [facility] Start: 04-23-2024 Covid-19 Vaccine () Covid-19 Vaccine () [facility] Start: 04-23-2024 Influenza vaccination Influenza Vaccine (#1) [facility] Start: 03-23-2024 End: 03-23-2024 Patient encounter procedure 03/23/2024 8:20 AM EDT Office Visit Cardiology [address] [place] [address] [phone] Delilah Cabrera DO [address] [place] [address] [phone] 6 month follow up Cardiology Comment on above: 6 month follow up Start: 03-10-2024 ANNUAL PCP TEAM CHRONIC DISEASE VISIT ANNUAL PCP TEAM CHRONIC DISEASE VISIT [facility] Start: 03-10-2024 SERUM CREATININE SERUM CREATININE [facility] Start: 02-20-2024 Influenza vaccination Influenza Vaccine (#1) [facility] Comment on above: Postponed from 04/23/2023 (Declined at t his time) Start: 02-14-2024 End: 02-14-2024 Patient encounter procedure 02/14/2024 9:40 AM EDT Office Visit [facility] [place] [address], [place] [id number] Sreekanth Cortez DO [address] [place], [place] [id number] 3 month follow up [facility] Comment on above: 3 month follow up Start: 02-09-2024 End: 05-10-2024 25-hydroxyvitamin D3 [Mass/volume] in Serum or Plasma VITAMIN D 25 HYDROXY Lab Routine Vitamin D deficiency Expected: 02/09/2024, Expires: 05/10/2024 [facility] Comment on above: Expected: 02/09/2024, Expires: Start: 02-09-2024 End: 05-10-2024 CBC W Auto Differential panel - Blood COMPLETE BLOOD COUNT AND DIFFERENTIAL Lab Routine Other iron deficiency anemia Expected: 02/09/2024, Expires: 05/10/2024 [facility] Comment on above: Expected: 02/09/2024, Expires: 4 Start: 02-09-2024 End: 05-10-2024 Cobalamin (Vitamin B12) [Mass/volume] in Serum or Plasma VITAMIN B12 Lab Routine Stage 3a chronic kidney disease (HCC) Expected: 02/09/2024, Expires: 05/10/2024 [facility] Comment on above: Expected: 02/09/2024, Expires: Start: 02-09-2024 End: 05-10-2024 Comprehensive metabolic 2000 panel - Serum or Plasma COMPREHENSIVE METABOLIC PANEL Lab Routine Stage 3a chronic kidney disease (HCC) Expected: 02/09/2024, Expires: 05/10/2024 [facility] Comment on above: Expected: 02/09/2024, Expires: Start: 02-09-2024 End: 05-10-2024 Thyrotropin [Units/volume] in Serum or Plasma THYROID STIMULATING HORMONE Lab Routine Hypothyroidism, unspecified type Expected: 02/09/2024, Expires: 05/10/2024 [facility] Work Phone: Comment on above: Expected: 02/09/2024, Expires: 4 Start: 02-09-2024 End: 05-10-2024 Thyroxine (T4) free [Mass/volume] in Serum or Plasma T4 FREE/FREE THYROXINE Lab Routine Hypothyroidism, unspecified type Expected: 02/09/2024, Expires: 05/10/2024 [facility] Comment on above: Expected: 02/09/2024, Expires: 4 Start: 12-26-2023 ANNUAL PCP TEAM CHRONIC DISEASE VISIT ANNUAL PCP TEAM CHRONIC DISEASE VISIT [facility] Start: 11-19-2023 SERUM CREATININE SERUM CREATININE [facility] Start: 10-07-2023 End: 01-06-2024 CBC W Auto Differential panel - Blood [facility] Work Phone: Comment on above: Expected: 10/07/2023, Expires: Start: 10-07-2023 End: 01-06-2024 Comprehensive metabolic 2000 panel - Serum or Plasma [facility] Work Phone: Comment on above: Expected: 10/07/2023, Expires: 4 Start: 10-07-2023 End: 01-06-2024 Ferritin [Mass/volume] in Serum or Plasma [facility] Work Phone: Comment on above: Expected: 10/07/2023, Expires: Start: 10-07-2023 End: 01-06-2024 Iron and Iron binding capacity panel - Serum or Plasma [facility] Work Phone: Comment on above: Expected: 10/07/2023, Expires: 4 Start: 10-07-2023 End: 01-06-2024 Lipid 1996 panel - Serum or Plasma [facility] Work Phone: Comment on above: Expected: 10/07/2023, Expires: 4 Start: 10-07-2023 End: 01-06-2024 Thyrotropin [Units/volume] in Serum or Plasma [facility] Work Phone: Comment on above: Expected: 10/07/2023, Expires: 4 Start: 10-07-2023 End: 01-06-2024 Thyroxine (T4) free [Mass/volume] in Serum or Plasma [facility] Work Phone: Comment on above: Expected: 10/07/2023, Expires: 4 Start: 10-07-2023 End: 01-06-2024 Triiodothyronine (T3) [Mass/volume] in Serum or Plasma [facility] Work Phone: Comment on above: Expected: 10/07/2023, Expires: 4 Start: 08-31-2023 ANNUAL PCP TEAM CHRONIC DISEASE VISIT ANNUAL PCP TEAM CHRONIC DISEASE VISIT [facility] Start: 08-23-2023 Advance Directive Discussion Advance Directive Discussion [facility] Start: 08-23-2023 Behavioral Health Screening Behavioral Health Screening [facility] Start: 08-23-2023 Depression Assessment Depression Assessment [facility] Start: 08-12-2023 End: 11-11-2023 Comprehensive metabolic 2000 panel - Serum or Plasma COMP METABOLIC PANEL Lab Routine Hyponatremia Expected: 08/12/2023, Expires: 11/11/2023 [facility] Work Phone: Comment on above: Expected: 08/12/2023, Expires: Start: 08-10-2023 ANNUAL PCP TEAM CHRONIC DISEASE VISIT ANNUAL PCP TEAM CHRONIC DISEASE VISIT [facility] Start: 08-04-2023 End: 11-03-2023 CBC panel - Blood by Automated count CBC Lab Routine Anemia, unspecified type Expected: 08/04/2023, Expires: 11/03/2023 [facility] Work Phone: Comment on above: Expected: 08/04/2023, Expires: 4 Start: 08-04-2023 End: 11-03-2023 CBC W Auto Differential panel - Blood CBC + DIFF Lab Routine Leukocytosis, unspecified type Expected: 08/04/2023, Expires: 11/03/2023 [facility] Work Phone: Comment on above: Expected: 08/04/2023, Expires: 4 Start: 08-04-2023 End: 11-03-2023 Comprehensive metabolic 2000 panel - Serum or Plasma COMP METABOLIC PANEL Lab Routine Anemia, unspecified type Hyponatremia Expected: 08/04/2023, Expires: 11/03/2023 [facility] Work Phone: Comment on above: Expected: 08/04/2023, Expires: 4 Start: 08-04-2023 End: 11-03-2023 Ferritin [Mass/volume] in Serum or Plasma FERRITIN BLD Lab Routine Anemia, unspecified type Expected: 08/04/2023, Expires: 11/03/2023 [facility] Work Phone: Comment on above: Expected: 08/04/2023, Expires: Start: 08-04-2023 End: 11-03-2023 Iron and Iron binding capacity panel - Serum or Plasma IRON + TIBC Lab Routine Anemia, unspecified type Expected: 08/04/2023, Expires: 11/03/2023 [facility] Work Phone: Comment on above: Expected: 08/04/2023, Expires: Start: 07-26-2023 End: 10-25-2023 Cobalamin (Vitamin B12) [Mass/volume] in Serum or Plasma VITAMIN B12 BLOOD Lab Routine Dizziness Expected: 07/26/2023, Expires: 10/25/2023 [facility] Work Phone: Comment on above: Expected: 07/26/2023, Expires: Start: 07-26-2023 End: 10-25-2023 Magnesium [Mass/volume] in Serum or Plasma MAGNESIUM BLD Lab Routine Dizziness Expected: 07/26/2023, Expires: 10/25/2023 [facility] Work Phone: Comment on above: Expected: 07/26/2023, Expires: Start: 07-23-2023 End: 10-22-2023 Urinalysis complete panel - Urine URINALYSIS WITH MICROSCOPIC, REFLEX CULTURE Lab Routine Leukocytosis, unspecified type Expected: 07/23/2023, Expires: 10/22/2023 [facility] Work Phone: Comment on above: Expected: 07/23/2023, Expires: Start: 07-21-2023 End: 10-20-2023 Lipid 1996 panel - Serum or Plasma [facility] Work Phone: Comment on above: Expected: 07/21/2023, Expires: Start: 07-21-2023 End: 10-20-2023 Thyrotropin [Units/volume] in Serum or Plasma [facility] Work Phone: Comment on above: Expected: 07/21/2023, Expires: Start: 07-21-2023 End: 10-20-2023 Thyroxine (T4) free [Mass/volume] in Serum or Plasma [facility] Work Phone: Comment on above: Expected: 07/21/2023, Expires: Start: 07-21-2023 End: 10-20-2023 Triiodothyronine (T3) [Mass/volume] in Serum or Plasma [facility] Work Phone: Comment on above: Expected: 07/21/2023, Expires: Start: 07-17-2023 End: 10-16-2023 Thyrotropin [Units/volume] in Serum or Plasma TSH BLD Lab Routine Hypothyroidism, unspecified type Expected: 07/17/2023, Expires: 10/16/2023 [facility] Work Phone: Comment on above: Expected: 07/17/2023, Expires: Start: 07-17-2023 End: 10-16-2023 Thyroxine (T4) free [Mass/volume] in Serum or Plasma T4 FREE/FREE THYROX Lab Routine Hypothyroidism, unspecified type Expected: 07/17/2023, Expires: 10/16/2023 [facility] Work Phone: Comment on above: Expected: 07/17/2023, Expires: 4 Start: 07-17-2023 End: 10-16-2023 Triiodothyronine (T3) [Mass/volume] in Serum or Plasma T3 BLD Lab Routine Hypothyroidism, unspecified type Expected: 07/17/2023, Expires: 10/16/2023 [facility] Work Phone: Comment on above: Expected: 07/17/2023, Expires: 4 Start: 07-08-2023 ANNUAL PCP TEAM CHRONIC DISEASE VISIT ANNUAL PCP TEAM CHRONIC DISEASE VISIT [facility] Start: 06-29-2023 [facility] Start: 06-29-2023 Ambulatory ECG [facility] Start: 05-17-2023 End: 07-17-2023 CBC W Auto Differential panel - Blood CBC + DIFF Lab Routine Dizziness Essential hypertension Expected: 05/17/2023, Expires: 07/17/2023 [facility] Work Phone: Comment on above: Expected: 05/17/2023, Expires: 3 Start: 05-17-2023 End: 07-17-2023 Comprehensive metabolic 2000 panel - Serum or Plasma COMP METABOLIC PANEL Lab Routine Dizziness Essential hypertension Expected: 05/17/2023, Expires: 07/17/2023 [facility] Work Phone: Comment on above: Expected: 05/17/2023, Expires: 3 Start: 05-17-2023 End: 07-17-2023 Insulin [Units/volume] in Serum or Plasma INSULIN ASSAY BLOOD Lab Routine Dizziness Expected: 05/17/2023, Expires: 07/17/2023 [facility] Work Phone: Comment on above: Expected: 05/17/2023, Expires: 3 Start: 05-17-2023 End: 07-17-2023 Thyrotropin [Units/volume] in Serum or Plasma TSH BLD Lab Routine Hypothyroidism, unspecified type Dizziness Expected: 05/17/2023, Expires: 07/17/2023 [facility] Work Phone: Comment on above: Expected: 05/17/2023, Expires: 3 Start: 05-17-2023 End: 07-17-2023 Thyroxine (T4) free [Mass/volume] in Serum or Plasma T4 FREE/FREE THYROX Lab Routine Hypothyroidism, unspecified type Dizziness Expected: 05/17/2023, Expires: 07/17/2023 [facility] Work Phone: Comment on above: Expected: 05/17/2023, Expires: 3 Start: 05-17-2023 End: 07-17-2023 Triiodothyronine (T3) [Mass/volume] in Serum or Plasma T3 BLD Lab Routine Hypothyroidism, unspecified type Dizziness Expected: 05/17/2023, Expires: 07/17/2023 [facility] Work Phone: Comment on above: Expected: 05/17/2023, Expires: 3 Start: 04-23-2023 Influenza vaccination INFLUENZA (#1) [facility] Start: 04-15-2023 End: 06-15-2023 Thyrotropin [Units/volume] in Serum or Plasma TSH BLD Lab Routine Hypothyroidism, unspecified type Expected: 04/15/2023, Expires: 06/15/2023 [facility] Work Phone: Comment on above: Expected: 04/15/2023, Expires: 3 Start: 04-15-2023 End: 06-15-2023 Thyroxine (T4) free [Mass/volume] in Serum or Plasma T4 FREE/FREE THYROX Lab Routine Hypothyroidism, unspecified type Expected: 04/15/2023, Expires: 06/15/2023 [facility] Work Phone: Comment on above: Expected: 04/15/2023, Expires: 3 Start: 04-15-2023 End: 06-15-2023 Triiodothyronine (T3) Free [Mass/volume] in Serum or Plasma T3 FREE BLD Lab Routine Hypothyroidism, unspecified type Expected: 04/15/2023, Expires: 06/15/2023 [facility] Work Phone: Comment on above: Expected: 04/15/2023, Expires: 3 Start: 03-20-2023 [facility] Start: 03-20-2023 Bacteria identified in Urine by Culture Urine Culture [facility] Start: 03-01-2023 End: 05-01-2023 25-hydroxyvitamin D3 [Mass/volume] in Serum or Plasma VITAMIN D 25 HYDROXY Lab Routine Vitamin D deficiency Expected: 03/01/2023, Expires: 05/01/2023 [facility] Work Phone: Comment on above: Expected: 03/01/2023, Expires: 3 Start: 03-01-2023 End: 05-01-2023 CBC panel - Blood by Automated count CBC Lab Routine Dyslipidemia Expected: 03/01/2023, Expires: 05/01/2023 [facility] Work Phone: Comment on above: Expected: 03/01/2023, Expires: 3 Start: 03-01-2023 End: 05-01-2023 Comprehensive metabolic 2000 panel - Serum or Plasma COMP METABOLIC PANEL Lab Routine Dyslipidemia Expected: 03/01/2023, Expires: 05/01/2023 [facility] Work Phone: Comment on above: Expected: 03/01/2023, Expires: 3 Start: 03-01-2023 End: 05-01-2023 Iron and Iron binding capacity panel - Serum or Plasma IRON + TIBC Lab Routine Other iron deficiency anemia Expected: 03/01/2023, Expires: 05/01/2023 [facility] Work Phone: Comment on above: Expected: 03/01/2023, Expires: 3 Start: 03-01-2023 End: 05-01-2023 Lipid 1996 panel - Serum or Plasma LIPID PANEL BASIC Lab Routine Dyslipidemia Expected: 03/01/2023, Expires: 05/01/2023 [facility] Work Phone: Comment on above: Expected: 03/01/2023, Expires: 3 Start: 03-01-2023 End: 05-01-2023 Thyrotropin [Units/volume] in Serum or Plasma TSH BLD Lab Routine Hypothyroidism, unspecified type Expected: 03/01/2023, Expires: 05/01/2023 [facility] Work Phone: Comment on above: Expected: 03/01/2023, Expires: 3 Start: 03-01-2023 End: 05-01-2023 Thyroxine (T4) free [Mass/volume] in Serum or Plasma T4 FREE/FREE THYROX Lab Routine Hypothyroidism, unspecified type Expected: 03/01/2023, Expires: 05/01/2023 [facility] Work Phone: Comment on above: Expected: 03/01/2023, Expires: 3 Start: 03-01-2023 End: 05-01-2023 Triiodothyronine (T3) Free [Mass/volume] in Serum or Plasma T3 FREE BLD Lab Routine Hypothyroidism, unspecified type Expected: 03/01/2023, Expires: 05/01/2023 [facility] Work Phone: Comment on above: Expected: 03/01/2023, Expires: 3 Start: 02-25-2023 Adult depression screening assessment DEPRESSION SCREENING [facility] Start: 02-25-2023 ANNUAL PCP TEAM CHRONIC DISEASE VISIT ANNUAL PCP TEAM CHRONIC DISEASE VISIT [facility] Start: 02-25-2023 SERUM CREATININE SERUM CREATININE [facility] Start: 02-25-2023 Urine microalbumin profile DTAP,TDAP,TD (1 - Tdap) [facility] Comment on above: Postponed from 1961 (Declined at t his time) Start: 08-23-2022 ADVANCE DIRECTIVE DISCUSSION ADVANCE DIRECTIVE DISCUSSION [facility] Start: 08-20-2022 SERUM CREATININE SERUM CREATININE [facility] Start: 04-23-2022 Influenza vaccination INFLUENZA (#1) [facility] Start: 03-29-2022 End: 05-29-2022 Thyrotropin [Units/volume] in Serum or Plasma TSH BLD Lab Routine Hypothyroidism, unspecified type Expected: 03/29/2022, Expires: 05/29/2022 [facility] Work Phone: Comment on above: Expected: 03/29/2022, Expires: 2 Start: 03-29-2022 End: 05-29-2022 Thyroxine (T4) free [Mass/volume] in Serum or Plasma T4 FREE/FREE THYROX Lab Routine Hypothyroidism, unspecified type Expected: 03/29/2022, Expires: 05/29/2022 [facility] Work Phone: Comment on above: Expected: 03/29/2022, Expires: 2 Start: 03-29-2022 End: 05-29-2022 Triiodothyronine (T3) [Mass/volume] in Serum or Plasma T3 BLD Lab Routine Hypothyroidism, unspecified type Expected: 03/29/2022, Expires: 05/29/2022 [facility] Work Phone: Comment on above: Expected: 03/29/2022, Expires: 2 Start: 02-25-2022 End: 04-27-2022 25-hydroxyvitamin D3 [Mass/volume] in Serum or Plasma [facility] Work Phone: Comment on above: Expected: 02/25/2022, Expires: 2 Start: 02-25-2022 End: 04-27-2022 CBC panel - Blood by Automated count [facility] Work Phone: Comment on above: Expected: 02/25/2022, Expires: 2 Start: 02-25-2022 End: 04-27-2022 Comprehensive metabolic 2000 panel - Serum or Plasma [facility] Work Phone: Comment on above: Expected: 02/25/2022, Expires: 2 Start: 02-25-2022 End: 04-27-2022 Ferritin [Mass/volume] in Serum or Plasma [facility] Work Phone: Comment on above: Expected: 02/25/2022, Expires: 2 Start: 02-25-2022 End: 04-27-2022 Hemoglobin A1c in Blood [facility] Work Phone: Comment on above: Expected: 02/25/2022, Expires: 2 Start: 02-25-2022 End: 04-27-2022 Iron and Iron binding capacity panel - Serum or Plasma [facility] Work Phone: Comment on above: Expected: 02/25/2022, Expires: 2 Start: 02-25-2022 End: 04-27-2022 Lipid 1996 panel - Serum or Plasma [facility] Work Phone: Comment on above: Expected: 02/25/2022, Expires: 2 Start: 02-25-2022 End: 04-27-2022 Thyrotropin [Units/volume] in Serum or Plasma [facility] Work Phone: Comment on above: Expected: 02/25/2022, Expires: 2 Start: 02-25-2022 End: 04-27-2022 Thyroxine (T4) free [Mass/volume] in Serum or Plasma [facility] Work Phone: Comment on above: Expected: 02/25/2022, Expires: 2 Start: 02-25-2022 End: 04-27-2022 Triiodothyronine (T3) [Mass/volume] in Serum or Plasma [facility] Work Phone: Comment on above: Expected: 02/25/2022, Expires: 2 Start: 01-24-2022 BP CONTROLLED (<130/80) BP CONTROLLED (<130/80) [facility] Start: 12-04-2021 COVID-19 VACCINE (4 - Booster for Moderna series) COVID-19 VACCINE (4 - Booster for Moderna series) [facility] Start: 09-30-2021 COVID-19 VACCINE (4 - Booster for Moderna series) COVID-19 VACCINE (4 - Booster for Moderna series) [facility] Start: 09-30-2021 COVID-19 VACCINE (4 - Moderna series) COVID-19 VACCINE (4 - Moderna series) [facility] Start: 08-23-2021 ADVANCE DIRECTIVE DISCUSSION ADVANCE DIRECTIVE DISCUSSION [facility] Start: 08-23-2021 DEPRESSION ASSESSMENT DEPRESSION ASSESSMENT [facility] [facility] Start: 2017 RSV Vaccine (1 - 1-dose 75+ series) RSV Vaccine (1 - 1-dose 75+ series) [facility] Start: 2002 RSV Vaccine (1 - 1-dose 60+ series) RSV Vaccine (1 - 1-dose 60+ series) [facility] Start: 1961 Urine microalbumin profile [facility] 25-hydroxyvitamin D3 [Mass/volume] in Serum or Plasma VITAMIN D 25 HYDROXY Lab Routine Vitamin D deficiency 02/10/2024 7:27 AM EDT [facility] Bacteria identified in Urine by Culture URINE CULTURE Microbiology Routine 04/06/2022 3:28 PM EDT [facility] Work Phone: Bacteria identified in Urine by Culture URINE CULTURE Microbiology Routine Dysuria Ordered: 03/31/2023 [facility] Work Phone: Comment on above: Ordered: 03/31/2023 Bacteria identified in Urine by Culture URINE CULTURE Microbiology Routine Dizziness 05/17/2023 4:08 PM EDT [facility] Work Phone: CBC W Auto Different ial panel - Blood COMPLETE BLOOD COUNT AND DIFFERENTIAL Lab Routine Other iron deficiency anemia 02/10/2024 7:27 AM EDT [facility] Cobalamin (Vitamin B 12) [Mass/volume] in Serum or Plasma VITAMIN B12 Lab Routine Stage 3a chronic kidney disease (HCC) 02/10/2024 7:27 AM EDT [facility] Comprehensive metabo lic 2000 panel - Serum or Plasma COMPREHENSIVE METABOLIC PANEL Lab Routine Stage 3a chronic kidney disease (HCC) 02/10/2024 7:27 AM EDT [facility] COVID & INFLUENZA A/ B & RSV NAAT, ROUTINE COVID & INFLUENZA A/B & RSV NAAT, ROUTINE Microbiology Routine URI, acute Ordered: 11/06/2023 [facility] Work Phone: Comment on above: Ordered: 11/06/2023 End: 07-08-2023 ECG COMPLETE ECG COMPLETE ECG Routine Gastroesophageal reflux disease, unspecified whether esophagitis present Essential hypertension 1 Occurrences starting 07/08/2022 until 07/08/2023 [facility] Work Phone: Comment on above: 1 Occurrences starting 07/08/2022 until 07/08/2023 ECG COMPLETE ECG COMPLETE ECG 11/24/2023 8:28 AM EDT [facility] End: 07-08-2023 Echocardiography ECHO Cardiology Routine Gastroesophageal reflux disease, unspecified whether esophagitis present Essential hypertension 1 Occurrences starting 07/08/2022 until 07/08/2023 [facility] Work Phone: Comment on above: 1 Occurrences starting 07/08/2022 until 07/08/2023 OUTSIDE VENDOR CARDI AC OUTPATIENT EXTENDED RHYTHM RECORDING (WITHOUT TELEMETRY) OUTSIDE VENDOR CARDIAC OUTPATIENT EXTENDED RHYTHM RECORDING (WITHOUT TELEMETRY) Holter Routine Dizziness Ordered: 07/21/2023 [facility] Work Phone: Comment on above: Ordered: 07/21/2023 Patient Education [facility] Work Phone: Patient referral [facility] Work Phone: Thyrotropin [Units/volume] in Serum or Plasma THYROID STIMULATING HORMONE Lab Routine Hypothyroidism, unspecified type 02/10/2024 7:27 AM EDT [facility] Thyroxine (T4) free [Mass/volume] in Serum or Plasma T4 FREE/FREE THYROXINE Lab Routine Hypothyroidism, unspecified type 02/10/2024 7:27 AM EDT [facility] UA DIP, URINE (POC) UA DIP, URIN E (POC) Lab Routine Dizziness Ordered: 05/17/2023 [facility] Work Phone: Comment on above: Ordered: 05/17/2023 End: 07-08-2023 US CAROTID ARTERIES DOE [facility] US CAROTID ARTERIES [facility] Vascular Lab Routine Gastroesophageal reflux disease, unspecified whether esophagitis present Essential hypertension 1 Occurrences starting 07/08/2022 until 07/08/2023 [facility] Work Phone: Comment on above: 1 Occurrences starting 07/08/2022 until 07/08/2023 End: 07-21-2024 US CAROTID ARTERIES DOE VAS LAB US CAROTID ARTERIES DOE VAS LAB Vascular Lab Routine Dizziness 1 Occurrences starting 07/21/2023 until 07/21/2024 [facility] Work Phone: Comment on above: 1 Occurrences starting 07/21/2023 until 07/21/2024 [facility] Immunizations Immunization Date Immunization Notes Care Provider Kirstin dias 07-10-2024 influenza virus vacc ine, unspecified formulation Margoth Chavez APRN.CNP Work Phone: [facility] 06-14-2024 influenza, high dose seasonal, preservative-free Sreekanth Cortez DO Work Phone: [facility] 08-12-2023 influenza (HD-IIV4) vaccine, age 65+ yr, high dose, quadrivalent, PF (FLUZONE HIGH-DOSE) Donita Estes DESK SERGEANT.THIRD RIGGER Work Phone: [facility] 08-12-2023 influenza virus vacc ine, unspecified formulation Delilah Cabrera DO Work Phone: [facility] 06-08-2022 influenza, high dose seasonal, preservative-free Sergei Renner DESK SERGEANT.THIRD RIGGER Work Phone: [facility] 06-08-2022 influenza virus vacc ine, unspecified formulation Donita Estes DESK SERGEANT.THIRD RIGGER Work Phone: [facility] 07-05-2021 influenza, high dose seasonal, preservative-free Donita Zurawick DESK SERGEANT.THIRD RIGGER Work Phone: [facility] Work Phone: 10-30-2020 COVID-19 vaccine, fu ll dose (MODERNA) Donita Zurawick DESK SERGEANT.THIRD RIGGER Work Phone: [facility] 10-03-2020 COVID-19 vaccine, fu ll dose (MODERNA) Donita Zurawick DESK SERGEANT.THIRD RIGGER Work Phone: [facility] 07-05-2020 zoster vaccine recombinant Donita Zurawick DESK SERGEANT.THIRD RIGGER Work Phone: [facility] Work Phone: 03-25-2020 zoster vaccine recombinant Donita Zurawick DESK SERGEANT.THIRD RIGGER Work Phone: [facility] Work Phone: 06-28-2019 influenza, high dose seasonal, preservative-free Donita Zurawick DESK SERGEANT.THIRD RIGGER Work Phone: [facility] Work Phone: 06-13-2018 influenza, high dose seasonal, preservative-free Donita Zurawick DESK SERGEANT.THIRD RIGGER Work Phone: [facility] Work Phone: 02-28-2016 pneumococcal conjuga te vaccine, 13 valent Donita Seymourrebecca DESK SERGEANT.THIRD RIGGER Work Phone: [facility] Work Phone: 02-27-2013 pneumococcal polysaccharide vaccine, 23 valent Donita Piercesadie DESK SERGEANT.[facility] Work Phone: [facility] Work Phone: Payers Date Payer Category Payer Self-pay [id number] 2024 Unknown [id number] 2023 Medicare (Managed Care) [id number] 2023 Unknown [id number] 2020 Medicare UHC AARP MEDICAR E FORMERLY [facility] MEDIC[facility] O [id number] 2020-Present [phone] [address] [address] [place] [address] [facility] [id number] 2020 Medicare [id number] 1940 Unknown [id number] Medicare [id number] Medicare MEDICARE PART A B [id number] Unknown Unknown [facility] MCR SOLUTIONS [id number] Unknown AAR MCR ADV [id number] Unknown [id number] Social History Date Type Detail Facility Start: 04-06-2022 End: 02-22-2025 Tobacco smoking status NHIS Never smoked tobacco [facility] Start: 02-25-2022 End: 03-13-2025 Alcohol intake Current non-drinker of alcohol (finding) [facility] Start: 1940 Sex Assigned At Female C [facility] Start: 02-15-2022 End: 07-08-2022 Exposure to SARS-CoV-2 (event) Not sure [facility] Start: 04-06-2022 Tobacco use and exposure Smokeless tobacco non-user [facility] Start: 12-25-2022 End: 08-10-2023 History of Social function [facility] Work Phone: Start: 12-25-2022 End: 08-10-2023 Tobacco use panel [facility] Work Phone: Adult Depression Screening Assessment 0 [facility] Work Phone: Start: 06-23-2020 Gender identity Identifies as female gender (finding) [facility] Start: 03-20-2023 End: 06-29-2023 Tobacco smoking status NHIS Unknown if ever smoked [facility] Start: 10-05-2017 None [facility] Start: 10-03-2017 Spouse/ Signif icant Other [facility] (I/We) worried da er (my/our) food would run out before (I/we) got money to buy more. Never true [facility] In the past 12 month s, was there a time when you were not able to pay the mortgage or rent on time? No [facility] Functional Status Date Assessment Result Facility 02-25-2025 Are you deaf, or do you have serious difficulty hearing No [facility] 02-25-2025 Are you blind, or do you have serious difficulty seeing, even when wearing glasses No [facility] 02-25-2025 Do you have serious difficulty walking or climbing stairs No [facility] 02-25-2025 Do you have difficul ty dressing or bathing No [facility] 02-25-2025 Because of a physica l, mental, or emotional condition, do you have difficulty doing errands alone such as visiting a physician's office or shopping No [facility] 08-13-2023 Are you deaf, or do you have serious difficulty hearing No 08/13/2023 2:52 PM Laura Garcia, ENEDELIA No [facility] 08-13-2023 Are you blind, or do you have serious difficulty seeing, even when wearing glasses No 08/13/2023 2:52 PM Laura Garcia, ENEDELIA No [facility] 08-13-2023 Do you have serious difficulty walking or climbing stairs No 08/13/2023 2:52 PM Laura Garcia, ENEDELIA No [facility] 08-13-2023 Do you have difficul ty dressing or bathing No 08/13/2023 2:52 PM Laura Garcia, ENEDELIA No [facility] 08-13-2023 Because of a physica l, mental, or emotional condition, do you have difficulty doing errands alone such as visiting a physician's office or shopping No 08/13/2023 2:52 PM Laura Garcia, ENEDELIA No [facility] Mental Status Date Assessment Result Facility 02-25-2025 Because of a physica l, mental, or emotional condition, do you have serious difficulty concentrating, remembering, or making decisions No [facility] 02-22-2025 Cognitive function Level Of Cons ciousness Awake;Alert;Appropriate;Fol lows Commands [facility] Work Phone: 08-13-2023 Because of a physica l, mental, or emotional condition, do you have serious difficulty concentrating, remembering, or making decisions No 08/13/2023 2:52 PM Laura Garcia, ENEDELIA No [facility] 06-29-2023 Cognitive function Level Of Cons ciousness Awake;Appropriate;Drowsy [facility] Work Phone: 03-20-2023 Cognitive function Level Of Cons ciousness Awake;Alert;Appropriate;Fol lows Commands [facility] Work Phone: Clinical Notes 02-25-2022 to 08-06-2025 Telephone Encounter - Anita Guevara RN - 03/21/2025 9:13 AM EDTTelephone Encounter - Anita Guevara RN - 03/21/2025 9:13 AM EDTTelephone Encounter - Anita Guevara RN - 03/17/2025 12:25 PM EDT Note Date & Type Note Facility 03-28-2025 Note HNO ID: [id number] Author: MARILYN GUTIERREZ PA-C Service: ? Author Type: Physician Smash Hand Type: Progress Notes Filed: 03/28/2025 08:02 Note [...] Scheduled cardiology appointment with Dr. Lewis at [facility] on 04/04. - Previous evaluation by elementary school science teacher Dr. 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 [facility] 03-21-2025 Telephone encounter Note Called and spoke [...] at home). 4) Losartan 50 mg BID. [facility] 03-21-2025 Miscellaneous Notes Called and spoke with [...] her daughter Anuja send them in a Dimeres msg. Once sent, then call in and [...] a script in for that dose to [facility] since pt had some confusion on [...] 25 mg tablets at home. Needs to pickle cutter new rx or clonidine patch and new [...] no med changes but a referral to [facility] for labile blood pressure. On 02/24, pt went to [facility] and was admitted overnight for BP-discharged [...] calling: self Call patient at: at home [phone] (home) [phone] (cell) Was an appointment scheduled: No Closing statement: Mary Jackman Pss documented in this encounter [facility] 03-20-2025 Telephone encounter Note I am not sure what discussion regarding dosing was had at last appt with patient. Will wait for tomorrow to clarify with Margoth Scott Cortez DO [facility] 03-17-2025 Telephone encounter Note Called pt back [...] encounter and forward the information on to Magroth Chavez. Pt asking about her Clonidine patch. [...] [facility] had some confusion on which [...] picked up the 0.2 mg patches. T [facility] 03-17-2025 Telephone encounter Note With high BP today I would recommend she take the hydralazine as ordered. I would have her take 12.5 mg dose of carvedilol ton and this weekend since she has 25 mg tablets at home. Needs to pickle cutter new rx or clonidine patch and new rx for carvedilol. Call PCP team on Wednesday with repeat BP readings. Go to the ER with severe headache, chest pain, Shortness of Breath, leg swelling, confusion, or symptoms of stroke with high BP >160/100. T [facility] Work Phone: 03-17-2025 Telephone encounter Note Called [...] no med changes but a referral to [facility] for labile blood pressure. On 02/24, pt went to [facility] and was admitted overnight for BP-discharged on [...] dosing as pt was confused on that. 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 cloNIDine TTS (GMPRQYPT-OIR-4) 0.1 mg/24 hr Apply 1 patch as [...] as needed for worsening/no improvement. Margoth Chavez APRN.THIRD RIGGER Recording using Unbounce software for draft documentation of the visit was discussed with the patient/authorized agricultural sales representative; all questions welcomed and answered. Patient/authorized agricultural sales representative agreed to proceed documented in this encounter [facility] 2025 Note HNO ID: [id number] Author: MARGOTH CHAVEZ APRN.THIRD RIGGER Service: ? 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 cloNIDine TTS (ZOJAXUQI-BMS-1) 0.1 mg/24 hr Apply 1 patch as [...] or rubs. N (more content not included)... [facility] 03-08-2025 Telephone encounter Note Transitional Care Management (TCM) [facility] Monitoring [facility] Provider Action / FYI: na SUMMARY: Outreach type: INITIAL OUTREACH Discharge Network Status: In-Network Discharge Source of Patient: [facility] TCM Discharge Report Patient discharged from [facility] on 02.25.25. Admitted for Dizziness. . Contact made with patient: No - 2nd unsuccessful attempt - end outreach and close encounter. Vale Yu March 08, 2025 9:49 AM [facility] 03-08-2025 Miscellaneous Notes Transitional Care Management (TCM) [facility] Provider Action / FYI: na SUMMARY: Outreach type: INITIAL OUTREACH Discharge Network Status: In-Network Discharge Source of Patient: [facility] TCM Discharge Report Patient discharged from [facility] on 02.25.25. Admitted for Dizziness. . Contact made with patient: No - 2nd unsuccessful attempt - end outreach and close encounter. Vale Yu March 08, 2025 9:49 AM documented in this encounter [facility] 02-28-2025 Telephone encounter Note Transitional Care Management (TCM) [facility] Provider Action / FYI: N/a SUMMARY: Outreach type: INITIAL OUTREACH Discharge Network Status: In-Network Discharge Source of Patient: [facility] TCM Discharge Report Patient discharged from [facility] on 02/25/2025. Admitted for Dizziness. Contact made with patient: Yes, for Initial Outreach Hi my name is Aspen Silvestre and I am calling from the [facility] on behalf of your Primary Care Provider, [...] Center phone number to speak with a aeronautical research engineer who can assist you with that appointment. [...] Aspen Silvestre February 28, 2025 1:00 PM [facility] 02-28-2025 Miscellaneous Notes Transitional Care Management (TCM) [facility] Monitoring Program Provider Action / FYI: N/a SUMMARY: Outreach type: INITIAL OUTREACH Discharge Network Status: In-Network Discharge Source of Patient: [facility] TCM Discharge Report Patient discharged from [facility] on 02/25/2025. Admitted for Dizziness. Contact made with patient: Yes, for Initial Outreach Hi my name is Aspen Pateldo and I am calling from the [facility] on behalf of your Primary Care Provider, [...] Center phone number to speak with a aeronautical research engineer who can assist you with that appointment. [...] 2025 1:00 PM documented in this encounter [facility] 02-26-2025 Instructions Margoth Chavez APRN.SATISH - 02/26/2025 [...] your next visit documented in this encounter [facility] 02-26-2025 History of Presen t illness Narrative This is a 84 year old female who presents today with: Follow up ER visit 02/22 [facility] (new order to increase losartan to twice daily which is what she is already on) [facility] 02/24-02/25 (new order to increase carvedilol to [...] mild headaches -they increased [place] carvedil[place] over the weekend but she didn't take [...] 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 Margoth Chavez APRN.THIRD RIGGER Recording using Unbounce software for draft documentation of the visit was discussed with the patient/authorized agricultural sales representative; all questions welcomed and answered. Patient/authorized agricultural sales representative agreed to proceed documented in this encounter [facility] 02-26-2025 Note HNO ID: [id number] Author: MARGOTH CHAVEZ APRN.SATISH Service: ? 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 Margoth Chavez APRN.THIRD RIGGER Recording using ambient AI software for draft documentation of the visi (more content not included)... [facility] 02-25-2025 Note HNO ID: [id number] Author: MAYELIN RENNER LSW Service: Care Management Author Type: Osteopathic Medicine Teacher Type: Care Mgt Progress Note Filed: 02/25/2025 [...] DATE: February 25, 2025 TIME: 3:49 PM [facility] 02-25-2025 Note HNO ID: [id number] Author: MAYELIN RENNER LSW Service: Care Management Author Type: Osteopathic Medicine Teacher Type: Care Mgt Initial Assessment Filed: 02/25/2025 15:48 Note Text: CARE MANAGEMENT: ASSESSMENT AND DISCHARGE PLAN SERVICE DATE: February 25, 2025 SERVICE TIME: 3:47 PM PCP: Sreekanth Cortez, /reviewed Primary Contact: Extended Emergency Contact Information Primary Emergency Contact: Jigar Henry Address: [address] [place] [address] OF [place] Mobile Relation: Spouse Admission Status: Observation Insurance Provider: UHC AARP MEDICARE HMO Discharge Planning requested by: Per Department Practice Potential Transition Plans Home Advance Directives Current Advance Directive: Health Care Power of Cardiology Consultants, Living Will In Chart: No 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 Lives with spouse. [place] in ADL's. No services or equipment used. Daughter transporting pt home on d/c. CM will follow. SIGNATURE: SHAKIRA Day, ACM PATIENT NAME: Casandra Henry DATE: February 25, 2025 TIME: 3:47 PM [facility] 02-22-2025 Discharge summary [facility] 02-22-2025 Radiology Diagnostic study note [facility] Imaging Services [address] [place], [place] [id number] Brain/Head without Contrast MR#: [id number] Acct: [id number] Name: CASANDRA HERNY Rep #: [id number] : 1940 F 84 From: Astrid Mendoza MD PCP: Dr. Sreekanth Cortez, Status: RE G ER Study:Brain/Head without Contrast Date of Exa m: 02/22/25 Exam# [id number] Ordering Dr: Devaughn Hermosillo DO EXAM: NONCONTRAST [...] Farmer DO; Dr. Sreekanth Cortez DO ~ Supervisor Agricultural Education: Signed [facility] 02-22-2025 Radiology Diagnostic study note [facility] Imaging Services [address] [place], [place] [address] Chest PA and Lateral MR#: [id number] Acct: [id number] Name: CASANDRA HENRY Rep #: [id number] : 1940 F 84 From: Astrid Mendoza MD PCP: Dr. Sreekanth Cortez DO Status: RE G ER Study:Chest PA and Lateral Date of Exam: 02/22/25 Exam# [id number] Ordering Dr: Devaughn Hermosillo DO PROCEDURE: CHEST [...] Farmer, DO; Dr. Sreekanth Cortez, DO ~ Supervisor Agricultural Education: Signed [facility] 02-19-2025 Instructions Margoth Chavez APRN.THIRD RIGGER - 02/19/2025 1:08 PM EDT Stop at labs and get labs drawn Continue logging blood pressure and take hydralazine as needed Follow with cardiology documented in this encounter [facility] 02-19-2025 Note HNO ID: [id number] Author: MARGOTH CHAVEZ APRN.SATISH Service: ? 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 No wheezing, (more content not included)... 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 Patient/authorized agricultural sales representative agreed to proceed documented in this encounter [facility] 02-05-2025 Note HNO ID: [id number] Author: SREEKANTH CORTEZ, DO Service: ? Author [...] Monitor serum sodium levels regularly. 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 Patient/authorized agricultural sales representative agreed to proceed [facility] 02-05-2025 History of Present illness Narrative [...] Monitor serum sodium levels regularly. 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 Patient/authorized agricultural sales representative agreed to proceed documented in this encounter [facility] 02-05-2025 Instructions Sreekanth Cortez DO - 02/05/2025 9:41 AM EDT STOP the metoprolol START on the Coreg 12.5 mg twice a day for BLOOD PRESSURE instead of the metoprolol OKAY to use the Hydralazine 25 mg medication as needed for BLOOD PRESSURE >140/90 documented in this encounter [facility] 12-25-2024 Instructions Maribeth Griffiths APRN.SATISH - 12/25/2024 1:52 PM EDT I have changed Metoprolol to 75 mg twice a day- you will need to take a 25 mg tablet along with a 50 mg tablet to equal 75 mg documented in this encounter [facility] 12-25-2024 Note HNO ID: [id number] Author: MARIBETH GRIFFITHS APRN.SATISH Service: ? Author [...] Medical Decision Making Level: 4 - Moderate [facility] 12-25-2024 History of Present illness Narrative [...] 4 - Moderate documented in this encounter [facility] 12-25-2024 Telephone encounter Note Pt called in [...] in am and pm Chyna Ramirez RN [facility] 12-25-2024 Miscellaneous Notes Pt called in and [...] Chyna Ramirez RN documented in this encounter [facility] 11-28-2024 Telephone encounter Note Pt notified of provider's message. Pt voiced understanding concerning medication. Farnaz Mays LPN [facility] 11-28-2024 Miscellaneous Notes Pt notified of provider's [...] Cortez would like. documented in this encounter [facility] 11-28-2024 Telephone encounter Note Her TSH and [...] a day. Authorizing Provider: SREEKANTH CORTEZ DO [facility] 11-28-2024 Telephone encounter Note Pt called and [...] Ramirez RN November 28, 2024 4:27 PM [facility] 11-28-2024 Telephone encounter Note Yes, this is still higher BLOOD PRESSURE than I would like Please apologize since I was out of office last week Option would be to increase her metoprolol to 50 mg in AM and 50 mg in PM If willing to do this, please load rx for me to send in Sreekanth Cortez DO [facility] 11-21-2024 Telephone encounter Note Pt returned the call and notified of results and Sergei Renner's information and instructions. [facility] 11-21-2024 Miscellaneous Notes Pt returned the call [...] Sergei Renner APRN.CNP documented in this encounter [facility] 11-21-2024 Telephone encounter Note Pt calling in [...] higher than what Dr. Cortez would like. [facility] 11-21-2024 Telephone encounter Note Left message to return call Silvana Rousseau MA [facility] 11-21-2024 Telephone encounter Note Please let her know I received her lab results. Her TSH thyroid level is a little bit low, but this is actually a good range where Dr. Cortez likes it to run, so need to change anything there. No other concerns. Sergei Renner APRN.THIRD RIGGER [facility] Work Phone: 11-09-2024 Telephone encounter Note Prescription [...] Laura Ocampo November 09, 2024 8:13 AM [facility] 11-09-2024 Miscellaneous Notes Prescription Refill Information The [...] 2024 8:13 AM documented in this encounter [facility] 10-11-2024 Telephone encounter Note Prescription Refill Information [...] Antonina Kate October 11, 2024 8:39 AM [facility] 10-11-2024 Miscellaneous Notes Prescription Refill Information The [...] 2024 8:39 AM documented in this encounter [facility] 08-08-2024 Note HNO ID: [id number] Author: SREEKANTH CORTEZ, DO Service: ? Author [...] SPEC WHEN PFRMD 12/05/2013 Colonoscopy done in [facility] FLX W/REMOVAL LESION BY HOT BX [...] symptoms. Discussed r (more content not included)... [facility] 08-08-2024 History of Present illness Narrative [...] SPEC WHEN PFRMD 12/05/2013 Colonoscopy done in [facility] FLX W/REMOVAL LESION BY HOT BX [...] with the plan. Sreekanth Cortez DO [address] [place] [address] documented in this encounter [facility] 07-13-2024 Telephone encounter Note Patient notified of provider's instructions and that prescription sent to pharmacy. Patient verbalizes understanding. Roxanne Felix RN [facility] 07-13-2024 Miscellaneous Notes Patient notified of provider's [...] name of levothyroxine 100 mcg. Patient uses [facility] as pharmacy. Roxanne Felix RN Her TSH level has improved but is still too high. The levothyroxine 88mcg is not enough. Would she be willing to try the 100mcg again if we order it to be dispensed as the name brand rather generic? Sometimes the reactions are from fillers that are in the generics. Sergei Renner APRN.CNP documented in this encounter [facility] 07-13-2024 Telephone encounter Note SynthJUDITH joseph, sent. Recheck thyroid labs in about 6 weeks. The following approved medication requests have been transmitted electronically. Requested Prescriptions Signed Prescriptions Disp Refills SYNTHROID 100 mcg tablet 30 tablet 2 Sig: Take 1 tablet by mouth once daily. Take on empty stomach Authorizing Provider: SERGEI RENNER APRN.CNP [facility] 07-12-2024 Telephone encounter Note Patient notified of results and provider's instructions. Patient verbalizes understanding. Patient states that she would be willing to try the brand name of levothyroxine 100 mcg. Patient uses [facility] as pharmacy. Roxanne Felix RN [facility] 07-12-2024 Telephone encounter Note Her TSH level has improved but is still too high. The levothyroxine 88mcg is not enough. Would she be willing to try the 100mcg again if we order it to be dispensed as the name brand rather generic? Sometimes the reactions are from fillers that are in the generics. Sergei Renner APRN.SATISH [facility] 06-06-2024 Telephone encounter Note Noted, thank you. Sergei Renner APRN.CNP [facility] 06-06-2024 Miscellaneous Notes Noted, thank you. Sergei Renner APRN.THIRD RIGGER Patient phoned to say she has levothyroxine [...] then re-check labs. documented in this encounter [facility] 06-06-2024 Telephone encounter Note Patient phoned to [...] for 4 more weeks then re-check labs. [facility] 05-04-2024 Telephone encounter Note Nurse Pearson notified of provider message. She will relay info to Dr. Ray and contact office with provider response. Silvana Rousseau MA [facility] 05-04-2024 Miscellaneous Notes Nurse Pearson notified of [...] Dr. Stoney Ray's office, this is her elementary school science teacher, outside of [facility]. Patient's blood pressure at home as [...] Sergei Renner APRN.CNP documented in this encounter [facility] 05-02-2024 Telephone encounter Note Patient returned call and given provider's message below and patient verbalized understanding. Alfredo Lisa RN [facility] 05-02-2024 Miscellaneous Notes Patient returned call and [...] SERGEI RENNER APRN.CNP documented in this encounter [facility] 05-02-2024 Telephone encounter Note Message left for pt to call back for results. iA Jorgensen MA [facility] 05-02-2024 Telephone encounter Note Please let her [...] empty stomach Authorizing Provider: SERGEI RENNER APRN.CNP [facility] 05-02-2024 Telephone encounter Note Nephrology office will contact our office back and ask to speak with triage nurse for provider message. Please see RS note below. Silvana Rousseau MA [facility] 04-28-2024 Telephone encounter Note Attempted to contact office and speak with RUBY/Nurse but line rings busy. Will need to try again. Silvana Rousseau MA [facility] 04-28-2024 Telephone encounter Note Please contact Dr. Stoney Ray's office, this is her elementary school science teacher, outside of [facility]. Patient's blood pressure at home as [...] regimen or add anything? Thanks Sergei Renner APRN.THIRD RIGGER [facility] 04-28-2024 Note HNO ID: [id number] Author: SERGEI RENNER APRN.THIRD RIGGER Service: ? Author Type: Nurse Practitioner Type: [...] Sees Dr. Stoney Ray, he comes to [facility] once a week on Wednesdays. Past medical history, appointments, medications, allergies reviewed. Previous Medical History PAST MEDICAL HISTORY No date: Acid reflux No date: Hiatal hernia No date: Hypertension No date: Hypothyroid No date: Palpitation Previous Surgical History PAST SURGICAL HISTORY 2000: CARPAL TUNNEL Comment: bilateral 12/05/2013: COLONOSCOPY FLX DX W/COLLJ SPEC WHEN PFRMD Comment: Colonoscopy done in [place] 02/19/2020: COLSC FLX W/REMOVAL LESION BY HOT [...] - THYROID STIMU (more content not included)... [facility] 04-28-2024 History of Present illness Narrative [...] Sees Dr. Stoney Ray, he comes to [facility] once a week on Wednesdays. Past medical history, appointments, medications, allergies reviewed. Previous Medical History PAST MEDICAL HISTORY No date: Acid reflux No date: Hiatal hernia No date: Hypertension No date: Hypothyroid No date: Palpitation Previous Surgical History PAST SURGICAL HISTORY 2000: CARPAL TUNNEL Comment: bilateral 12/05/2013: COLONOSCOPY FLX DX W/COLLJ SPEC WHEN PFRMD Comment: Colonoscopy done in [place] 02/19/2020: COLSC FLX W/REMOVAL LESION BY HOT [...] IRON AND TIBC - FERRITIN Sergei Renner APRN.THIRD RIGGER documented in this encounter [facility] 04-28-2024 Evaluation note Diagnosis Hypertension, essential- Primary Unspecified essential hypertension Stage 3a chronic kidney disease (HCC) Hypothyroidism, unspecified type Other iron deficiency anemia documented in this encounter [facility]08-01-2024 History of Present illness Narrative* Delilah Cabrera DO - 03/23/2024 8:20 AM EDT [facility]ICINE CONSULT NOTE Casandra Henry [id number] PRIMARY SERVICE: Internal Medicine CONSULTING SERVICE: Cardiovascular Medicine: DATE OF ADMISSION: (Not on file) [facility] 08/11/2023 HISTORY OF PRESENT ILLNESS Casandra Henry [...] SPEC WHEN PFRMD Comment: Colonoscopy done in [place] 02/19/2020: COLSC FLX W/REMOVAL LESION BY HOT [...] DO, FACC, FCCP, FACOI [facility] History of Present illness Narrative* Sreekanth Cortez [...] SPEC WHEN PFRMD 12/05/2013 Colonoscopy done in [facility] FLX W/REMOVAL LESION BY HOT BX [...] See patient instructions. Sreekanth Cortez DO [address] [place] [address] [facility] Evaluation note* Diagnosis Essential hypertension- Primary Unspecified essential hypertension Stage 3a chronic kidney disease (HCC) Hypothyroidism, unspecified type Other iron deficiency anemia Vitamin D deficiency Unspecified vitamin D deficiency documented in this encounter [facility]-20-2024 Telephone encounter Note* Telephone Encounter - Aby Vega MA - 02/10/2024 9:21 AM EDT Call to pt. After reviewing chart, pt has already completed labs and they are in process. FRANNY on stating that no call back is needed. Aby Vega MA [facility]06-20-2024 Miscellaneous Notes* Telephone Encounter - Aby Vega [...] 02-14-24. Heather Shetty LPN documented [facility] Evaluation note* Diagnosis Stage 3a chronic kidney disease (HCC)- Primary Essential hypertension Unspecified essential hypertension Hypothyroidism, unspecified type Other iron deficiency anemia Vitamin D deficiency Unspecified vitamin D deficiency Fatigue, unspecified type documented in this encounter [facility]24 Telephone encounter Note* Telephone Encounter - Sreekanth Cortez DO - 02/09/2024 10:41 PM EDT Orders placed for blood work to be drawn Please notify her Sreekanth Cortez DO [facility]06-19-2024 Telephone encounter Note* Telephone Encounter - Heather Shetty LPN - 02/09/2024 11:30 AM EDT Pt calling for lab orders. Please advise pt when orders are in place. Not certain what labs you wanted pt to have. Please review and advise pt back. Pt has apt 02-14-24. Heather Shetty LPN [facility]04-03-2024 Instructions* Patient Instructions* Gabi More APRN.CNP - [...] months with Dr. Cabrera documented [facility] History of Present illness Narrative* Gabi More APRN.CNP - 11/24/2023 8:47 AM EDT Images from the original note were not included. [facility] Department of Cardiovascular Medicine SECTION [...] which included preparing to see the patient, [id number] patient care, completing clinical documentation, performing a [...] prior to the follow up. Gabi More APRN.[facility] Cardiology Nurse Practitioner [facility] [place] Dept of Cardiovascular Medicine [facility] [place] [id number] Office Office November 24, 2023 8:47 AM This note was partially generated using [employer] voice recognition system and may contain errors [...] already performed. Other chronic findings, as above. Supervisor Agricultural Education: DELIA Transcribe Date/Time: Aug 11 2023 7:28P [...] and ROS obtained by others. Gabi More APRN.THIRD RIGGER CURRENT MEDICATIONS: Current Outpatient Medications Medication Sig [...] medications for this visit. documented [facility] Miscellaneous Notes* Telephone Encounter - Marti Stahl [...] Thank you. Marti Wright. documented in [facility]24 Miscellaneous Notes* Telephone Encounter - Karen Victoria LPN - 11/07/2023 8:18 AM EDT on patient notified.Karen Victoria LPN * Telephone Encounter - Justice Gaines PA - 11/07/2023 8:10 AM EDT Negative for COVID flu RSV documented in this encounter[facility] History of Present illness Narrative* Ruel Fleming [...] PATIENT PRESENTS WITH AN IMPLANTABLE OR ATTACHED AIR BRAKE RIGGER: No RADIOLOGY DEPARTMENT: General X-ray: Exam(s) Completed: Chest X-Ray PERIPHERAL IV DATA: Not applicable SIGNED BY: RT Wendy(R) November 06, 2023 8:36 AM documented in this encounter[facility] History of Present illness Narrative* Justice Gaines PA - 11/06/2023 8:26 AM EDT This note was created using PillGuardter. Subjective Casandra Henry is a 83 year [...] SPEC WHEN PFRMD 12/05/2013 Colonoscopy done in [facility] FLX W/REMOVAL LESION BY HOT BX [...] ER evaluation. CALVIN King documented in this encounter[facility] History of Present illness Narrative* Sreekanth Cortez [...] metoprolol as prescribed. Has been seen by [facility]. PAST MEDICAL HISTORY Diagnosis Date Acid reflux Hiatal hernia Hypertension Hypothyroid Palpitation PAST SURGICAL HISTORY Procedure Laterality Date CARPAL TUNNEL 2000 bilateral COLONOSCOPY FLX DX W/COLLJ SPEC WHEN PFRMD 12/05/2013 Colonoscopy done in [facility] FLX W/REMOVAL LESION BY HOT BX [...] a day at this time, f/u with [facility] 4. Hypothyroidism, unspecified type - ICD9: 244.9, [...] plan. See patient instructions. Sreekanth Cortez DO [address] [place] [address] documented in this encounter[facility] Miscellaneous Notes* Telephone Encounter - Polo Stahldi [...] Thank you. Marti Wright. documented in this encounterSelect [facility]2024 Miscellaneous Notes* Telephone Encounter - Silvana Rousseau [...] you, Donita Estes APRN.SATISH documented in this encounter[facility] History of Present illness Narrative* Donita Estes [...] on sodium supplement. Hypokalemia improved with this. Toe Stapler thought this supplement may be increasing BP [...] SPEC WHEN PFRMD 12/05/2013 Colonoscopy done in [facility] FLX W/REMOVAL LESION BY HOT BX [...] Patient agreeable to treatment plan. Donita Gonzales APRN.THIRD RIGGER [address] [place] [address] documented in this encounter[facility] Telephone encounter Note * Telephone Encounter - Karen Soriano - 09/11/2023 8:12 AM EST .RX [facility] Work Phone: [phone]) 648-900401-20-2024 Miscellaneous Notes* Telephone Encounter - Karen Soriano - 09/11/2023 8:12 AM EST .RX documented in this encounterSelect [facility]12[facility]14-2023 Miscellaneous Notes* Telephone Encounter - Aby Vega [...] in 1 week. Thank you, Donita Estes APRN.THIRD RIGGER documented in this encounterSelect [facility]12-06-2023 Miscellaneous Notes* Telephone Encounter - Silvana Rousseau [...] you, Donita Estes APRN.SATISH documented in this encounterSelect [facility]12-04-2023 Miscellaneous Notes* Telephone Encounter - Donita Estes APRN.CNP - 07/26/2023 4:25 PM EST Order signed. Donita Estes APRN.THIRD RIGGER * Telephone Encounter - Silvana Rousseau - [...] you, Donita Estes APRN.SATISH documented in this encounter[facility]12-[facility]-2023 Miscellaneous Notes* Telephone Encounter - Chyna Ramirez [...] if/when provider adds labs. documented in this encounterSelect [facility]12-01-2023 Miscellaneous Notes* Telephone Encounter - Casandra Hairston [...] any other suggestions. Thank you, Donita Estes APRN.THIRD RIGGER * Telephone Encounter - Anita Guevara RN [...] the constipation? Pt uses [facility] in [place]. documented in this encounterSelect [facility]11-[facility]-2023 Nurse Note* Casandra Hairston LPN - 07/21/2023 8:19 AM EST EVENT MONITOR DISPOSABLE PATCH INSTRUCTIONS Patient Name: Casandra Henry Clinic Number: [id number] Skin prepped and cleansed with alcohol Patch secured to prepped area Monitor Activated Serial #: [id number] Patient Instructed: Prescribed order timeframe Bathing guidelines Usage of event button and diary documentation Return of monitor at the end of prescribed order Call with problems [phone] or [phone]. [phone] Patient expresses a good understanding of instructions Casandra Hairston LPN documented in this encounterSelect [facility]23 History of Present illness Narrative* Donita Estes APRN.THIRD RIGGER - 07/21/2023 6:57 AM EST Chief Complaint [...] Recent ER visit on 06/29. 48 hour cardiac rehab nurse showed: Rare PVCs, no runs. Average heart [...] SPEC WHEN PFRMD 12/05/2013 Colonoscopy done in [facility] FLX W/REMOVAL LESION BY HOT BX [...] Patient agreeable to treatment plan. Donita Gonzales APRN.THIRD RIGGER [address] [place] [address] documented in this encounterSelect [facility]23 History of Present illness Narrative* Sreekanth Cortez, DO - 07/14/2023 7:11 AM EST CC: Casandra Henry is a 83 year old female who presents to the office for follow up HPI: At appt March 2023 She was recently seen in the EMERGENCY DEPARTMENT due to elevated BLOOD PRESSURE in the 160s/90s and not feeling well. She had work up at [facility] in the EMERGENCY DEPARTMENT including [...] SPEC WHEN PFRMD 12/05/2013 Colonoscopy done in [facility] FLX W/REMOVAL LESION BY HOT BX [...] plan. See patient instructions. Sreekanth Cortez DO [address] [place] [address] documented in this encounterSelect [facility]-2023 Miscellaneous Notes* Telephone Encounter - Gisselle Bush [...] advise, Roxanne Felix RN documented in this encounterSelect [facility]11-07-2023 Discharge summary Author Josselyn Adhikari [facility] June 29, 2023 3:14pm Note Date/Time June 29, 2023 1 1:03am [facility] Medical Records Department [address] [place] [id number] Emergency Department Summary 06/29/23 MR#: [id number] Acct: [id number] Name: CASANDRA HENRY Rep #:[id number] : 1940 83 From: Josselyn Adhikari DO [...] history of hyponatremia. Prior similar symptoms: [facility] Medical History (Updated 06/29/23 @ 14:43 [...] (Auto) 67.9 Lymph % (Auto) 18.0 L [place] % (Auto) 9.5 Eos % (Auto) 3.6 [...] Clear Urine pH 7.0 7.0 Ur Specific [place] 1.005 1.005 Urine Protein Negative Negative Urine [...] 12:29 EST Reading Location ID and State: [address] [place] [address] , Service support , EKG Initial EKG: [...] your Primary Care Provider. Call [facility] ([phone]) or report to the closest Emergency Room. Call 911 if necessary. 06/29/23 1514 <Electronically signed by Josselyn Adhikari DO> Cosigner Signature (if applicable): CC: Dr. Sreekanth Cortez DO ~ Signed [facility] Work Phone: [phone] 409-712611-07-2023 History of Present illness Narrative* Yuan Syed [...] urgent care. states will transport patient to [facility]. verbalized understand agrees with plan of care. Yuan Syed APRN.SATISH documented [facility]23 Miscellaneous Notes* Telephone Encounter - Gisselle Bush LPN - 06/23/2023 12:15 PM EDT Form faxed. * Telephone Encounter - Donita Estes APRN.CNP - 06/23/2023 10:42 AM EDT Form filled out and in my outbox. Please fax. Thank you, Donita Estes APRN.SATISH * Telephone Encounter - Sreekanth Crotez DO - 06/22/2023 1:47 PM EDT To [...] fax back to them at fax # [phone]. documented in this encounterSelect [facility]10-26-2023 Miscellaneous Notes* Telephone Encounter - Anita Cain [...] in 2 weeks. Thank you, Donita Estes APRN.THIRD RIGGER documented in this encounterSelect [facility]10-25-2023 History of Present illness Narrative* Donita Estes APRN.CNP - 06/16/2023 8:00 AM EDT Chief Complaint Patient presents with: labs showed dehydration and sodium chloridelevels: Review lab results HPI Casandra Henry is a 83 year old female who presents here today for Above Complaints.. Casandra is an established patient of Dr. Cortze, DO and myself. Concerns today... Review lab [...] SPEC WHEN PFRMD 12/05/2013 Colonoscopy done in [facility] FLX W/REMOVAL LESION BY HOT BX [...] Patient agreeable to treatment plan. Donita Gonzales APRN.THIRD RIGGER [address] [place] [address] documented in this encounterSelect [facility]10-19-2023 Miscellaneous Notes* Telephone Encounter - Silvana Rousseau [...] once daily for about a week. Was [id number] one day per week prior. Silvana Rousseau MA * Telephone Encounter - Sreekanth Cortez DO - 06/09/2023 10:38 PM EDT Please call and clarify what dose of thyroid medication she is currently taking? Her TSH is still too low and free t4 is still too high. Her dose needs to be decreased. Sreekanth Cortez DO documented in this encounterSelect [facility]09-25-2023 History of Present illness Narrative* Donita Estes [...] SPEC WHEN PFRMD 12/05/2013 Colonoscopy done in [facility] FLX W/REMOVAL LESION BY HOT BX [...] Patient agreeable to treatment plan. Donita Gonzales APRN.THIRD RIGGER [address] [place] [address] documented in this encounterSelect [facility]08-09-2023 History of Present illness Narrative* Sreekanth Cortez, DO - 03/31/2023 8:39 PM EDT CC: Casandra Henry is a 83 year old female who presents to the office for follow up HPI: She was recently seen in the EMERGENCY DEPARTMENT due to elevated BLOOD PRESSURE in the 160s/90s and not feeling well. She had work up at [facility] in the EMERGENCY DEPARTMENT including [...] SPEC WHEN PFRMD 12/05/2013 Colonoscopy done in [facility] FLX W/REMOVAL LESION BY HOT BX [...] plan. See patient instructions. Sreekanth Cortez DO [address] [place] [address] documented in this encounterSelect [facility]08-09-2023 Instructions* Patient Instructions* Sreekanth Cortez DO - 03/31/2023 6:18 PM EDT Blood pressure goal 100-130s / 60-80s Pulse rate goal 60-80s documented in this encounterSelect [facility]07-24-2023 Miscellaneous Notes* Telephone Encounter - Emily Cates MA - 03/15/2023 10:04 AM EDT Prescription was already sent to the pharmacy this date. Emily Cates MA documented in this encounterSelect [facility]07-24-2023 History of Present illness Narrative* CortezSreekanth, DO [...] SPEC WHEN PFRMD 12/05/2013 Colonoscopy done in [facility] FLX W/REMOVAL LESION BY HOT BX [...] agreed with the plan. Sreekanth Cortez DO [address] [place] [address] documented in this encounterSelect [facility]07-20-2023 Miscellaneous Notes* Telephone Encounter - Lorrie Feliciano [...] you. Lorrie Feliciano LPN documented in this encounterSelect [facility]07-19-2023 History of Present illness Narrative* Marilyn Gutierrez [...] SPEC WHEN PFRMD 12/05/2013 Colonoscopy done in [facility] FLX W/REMOVAL LESION BY HOT BX [...] attention. Marilyn Gutierrez PA-C documented in this encounterSelect [facility]07-19-2023 Miscellaneous Notes* Telephone Encounter - Roxanne Felix [...] is not normal. Protocols used: Dizziness - Ucpgyxrbahqkine-LIWXK-VL, Blood Pressure - Cinl-QJFXC-ZD documented in this encounterSelect [facility]07-18-2023 Miscellaneous Notes* Telephone Encounter - Gisselle Bush [...] 25 mg tablet [Pharmacy Med Name: METOPROLOL [id number] MG TAB] 180 tablet 1 Sig: take 1 tablet by mouth twice a day Date of last office visit in primary care: 08/31/22 Last 2 Encounter Wt Readings: Date: Wt: 12/25/2022 64.9 kg (143 lb) 08/31/2022 65.3 kg (144 lb) Previous labs/tests for medication: Not applicable Please advise. Thank you. Gisselle Bush LPN documented in this encounterSelect [facility]05-11-2023 Miscellaneous Notes* Telephone Encounter - Esthela Levi [...] improve Sreekanth Cortez DO documented in this encounterSelect [facility]05-05-2023 History of Present illness Narrative* Adamaris Chavez [...] 25, 2022 2:33 PM documented in this encounterSelect [facility]05-05-2023 History of Present illness Narrative* Sreekanth Cortez [...] SPEC WHEN PFRMD 12/05/2013 Colonoscopy done in [facility] FLX W/REMOVAL LESION BY HOT BX [...] plan. See patient instructions. Sreekanth Cortez DO [address] [place] [address] documented in this [facility]01-23-2023 Miscellaneous Notes* Telephone Encounter - Anita Cain [...] advise. Anita Cain LPN documented in this [facility]01-19-2023 Miscellaneous Notes* Telephone Encounter - Lorrie Feliciano LPN - 09/10/2022 10:30 AM EST Patient has been identified by name and date of : Yes Patient phones for refill(s): Requested Prescriptions Pending Prescriptions Disp Refills metoprolol tartrate, short acting, (LOPRESSOR) 25 mg tablet [Pharmacy Med Name: METOPROLOL [id number] MG TAB] 180 tablet 1 Sig: take 1 tablet by mouth twice a day Date of last office visit in primary care: 08/31/2022 Please advise. Thank you. Lorrie Feliciano LPN documented in this [facility]01-10-2023 History of Present illness Narrative* Sreekanth Cortez [...] SPEC WHEN PFRMD 12/05/2013 Colonoscopy done in [facility] FLX W/REMOVAL LESION BY HOT BX [...] with the plan. Sreekanth Cortez DO [address] [place] [address] documented in this encounterSelect [facility]12-19-2022 History of Present illness Narrative* Sergei Renner APRN.THIRD RIGGER - 08/10/2022 12:25 PM EST AMBULATORY TELEPHONE [...] APRN.SATISH Nirmatrelvir/Ritonavir (Paxlovid) Eligibility and Patient Discussion [facility] Formulary Restriction Criteria: Adult outpatients 18 years [...] 10, 2022 12:33 PM documented in this encounterSelect [facility]12-19-2022 Miscellaneous Notes* Telephone Encounter - Karolina Bee [...] afternoon. Karolina Bee RN documented in this encounterSelect [facility]11-16-2022 Instructions* Patient Instructions* Margoth Chavez - 07/08/2022 8:21 AM EST Start omeprazole 20mg daily , 30 minutes prior to breakfast. Watch spicy foods, try not to eat at least an hour prior to laying down documented in this encounterSelect [facility]11-16-2022 History of Present illness Narrative* Sergei Renner [...] SPEC WHEN PFRMD 12/05/2013 Colonoscopy done in [facility] FLX W/REMOVAL LESION BY HOT BX [...] VAS LAB - ECG COMPLETE Sergei Renner APRN.THIRD RIGGER documented in this encounterSelect [facility]08-15-2022 History of Present illness Narrative* Yann French [...] pain. Yann French MD documented in this encounterSelect Medical [facility]07-07-2022 Miscellaneous Notes* Telephone Encounter - Silvana Freedman Ma - 02/26/2022 8:26 AM EDT Pt informed, verbalized understanding. iSlvana Freedman Ma * Telephone Encounter - Donita [...] you, Donita Gonzales APRN.SATISH documented in this encounterSelect [facility]07-06-2022 History of Present illness Narrative* Donita Gonzales [...] Stage 3a Follows with kidney specialist through [facility]. 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 - COMP METABOLIC PANEL [...] to treatment plan. Donita Gonzales APRN.CNP [address] [place] [address] documented in this encounterSelect Medical [facility]ty [facility]-FairhillDischar summary Author Devaughn [facility]Par[facility] Note Date/Time February 22, 2025 7:49a m [facility] Medical Records Department [address] [place] [address] Emergency Department Summary 02/22/25 MR#: [id number] Acct: [id number] Name: CASANDRA HENRY Rep #:[id number] : 1940 84 From: Devaughn velez DO [...] intact Psych: Cooperative, appropriate mood and affect [facility] Medical History (Updated 02/22/25 @ 07:43 by [...] changed. She states that she was on [id number] mg twice daily as well as metoprolol [...] or worsen. She was told to call [facility]'s office later this morning to let them [...] % (Auto) 58.7 Lymph % (Auto) 21.6 Yolo % (Auto) 11.4 H Eos % (Auto) [...] prior. No acute intracranial pathology. Reading [facility] Discharge Plan Triage Chief Complaint: Hypertension ED [...] if symptoms change or worsen. Print Language: Qatari Disposition Disposition: Home, Self Care What to do if you have Problems For any increased pain, shortness of breath, bleeding, nausea or vomiting, chestpain, or any unexpected problems, contact your Primary Care Provider. Call [facility] ([phone]) or report to the closest Emergency Room. Call 911 if necessary. 02/22/25 0749 <Electronically signed by Devaughn Farmer DO> Cosigner Signature (if applicable): CC: Dr. Sreekanth Cortez DO ~ Signed [facility] Work Phone: Evaluation note* Diagnosis Essential hypertension- Primary Unspecified essential hypertension Bilateral leg edema Edema Hypothyroidism, unspecified type Vitamin D deficiency Unspecified vitamin D deficiency Stage 3a chronic kidney disease (HCC) Dyslipidemia Other and unspecified hyperlipidemia Other iron deficiency anemia Screening for diabetes mellitus documented in this encounter [facility]* Diagnosis Bilateral leg edema Edema Hypothyroidism, unspecified type documented in this encounter [facility]* Diagnosis Acute left flank pain- Primary Abdominal pain, unspecified site Urinary frequency documented in this encounter [facility] note* Diagnosis Essential hypertension- Primary Unspecified essential hypertension Gastroesophageal reflux disease, unspecified whether esophagitis present documented in this encounter [facility] note* Diagnosis COVID- Primary documented in this encounter [facility] note* Diagnosis Essential hypertension- Primary Unspecified essential hypertension Gastroesophageal reflux disease, unspecified whether esophagitis present Bilateral leg edema Edema Hypothyroidism, unspecified type Vitamin D deficiency Unspecified vitamin D deficiency Stage 3a chronic kidney disease (HCC) Dyslipidemia Other and unspecified hyperlipidemia Other iron deficiency anemia documented in this encounter [facility] note* Diagnosis Essential hypertension Unspecified essential hypertension documented in this encounter [facility] note* Diagnosis Bilateral leg edema Edema documented in this encounter [facility] note* Diagnosis Lumbar radiculopathy- Primary Thoracic or lumbosacral neuritis or radiculitis, unspecified Chronic midline low back pain with bilateral sciatica documented in this encounter [facility] note* Diagnosis Essential hypertension Unspecified essential hypertension documented in this encounter [facility] note* Diagnosis Essential hypertension- Primary Unspecified essential hypertension documented in this encounter [facility] note* Diagnosis Bilateral leg edema Edema documented in this encounter [facility] note* Diagnosis Essential hypertension- Primary Unspecified essential hypertension Hypothyroidism, unspecified type Bilateral leg edema Edema Lumbar radiculopathy Thoracic or lumbosacral neuritis or radiculitis, unspecified Other iron deficiency anemia Dyslipidemia Other and unspecified hyperlipidemia documented in this encounter [facility] note* Diagnosis Hypothyroidism, unspecified type documented in this encounter [facility] noteNo assessment information availableWHolzer Hospital Work Phone: Evaluation note* Diagnosis Essential hypertension- Primary Unspecified essential hypertension Dysuria Hypothyroidism, unspecified type documented in this encounter [facility] note* Diagnosis Dizziness- Primary Dizziness and giddiness Hypothyroidism, unspecified type Essential hypertension Unspecified essential hypertension documented in this encounter [facility] note* Diagnosis Low sodium levels- Primary Hyposmolality and/or hyponatremia Hypothyroidism, unspecified type Other iron deficiency anemia Dizziness Dizziness and giddiness documented in this encounter [facility] note* Diagnosis Procedure not carried out- Primary Procedure not carried out for other reasons documented in this encounter [facility] note* Diagnosis Hyponatremia- Primary Hyposmolality and/or hyponatremia Anemia, unspecified type Hypothyroidism, unspecified type Dizziness Dizziness and giddiness Essential hypertension Unspecified essential hypertension Fatigue, unspecified type Shakiness Abnormal involuntary movements documented in this encounter [facility] note* Diagnosis Low sodium levels- Primary Hyposmolality and/or hyponatremia documented in this encounter [facility] note* Diagnosis Dizziness- Primary Dizziness and giddiness Hypothyroidism, unspecified type Essential hypertension Unspecified essential hypertension CHECO (generalized anxiety disorder) Generalized anxiety disorder Hyponatremia Hyposmolality and/or hyponatremia documented in this encounter [facility] note* Diagnosis Leukocytosis, unspecified type- Primary documented in this encounter [facility] note* Diagnosis Dizziness- Primary Dizziness and giddiness documented in this encounter [facility] note* Diagnosis Leukocytosis, unspecified type- Primary documented in this encounter [facility] note* Diagnosis Hyponatremia- Primary Hyposmolality and/or hyponatremia documented in this encounter [facility] note* Diagnosis Leukocytosis, unspecified type- Primary documented in this encounter [facility] note* Diagnosis Essential hypertension- Primary Unspecified essential hypertension Hyponatremia Hyposmolality and/or hyponatremia Hypothyroidism, unspecified type Other iron deficiency anemia Dyslipidemia Other and unspecified hyperlipidemia documented in this encounter [facility] note* Diagnosis CHECO (generalized anxiety disorder) Generalized anxiety disorder documented in this encounter [facility] note* Diagnosis Essential hypertension- Primary Unspecified essential hypertension Stage 3a chronic kidney disease (HCC) Hyponatremia Hyposmolality and/or hyponatremia Hypothyroidism, unspecified type documented in this encounter [facility] note* Diagnosis Acute cough- Primary URI, acute Acute upper respiratory infections of unspecified site documented in this encounter [facility] note* Diagnosis Hyponatremia- Primary Hyposmolality and/or hyponatremia Hypertension, essential Unspecified essential hypertension Palpitation Palpitations Hypothyroidism, unspecified type Iatrogenic hyperthyroidism 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 or storm documented in this encounter [facility] note* Diagnosis SVT (supraventricular tachycardia) (HCC)- Primary Other specified cardiac dysrhythmias Palpitations Essential hypertension Unspecified essential hypertension Hyperlipidemia, mixed Mixed hyperlipidemia Hypertension, essential Unspecified essential hypertension Palpitation Palpitations documented in this encounter [facility]* Diagnosis Hypothyroidism, unspecified type- Primary documented in this encounter [facility]* Diagnosis Acute cough documented in this encounter [facility]* Diagnosis Lumbar radiculopathy Thoracic or lumbosacral neuritis or radiculitis, unspecified Chronic midline low back pain with bilateral sciatica [facility]* Diagnosis Hypothyroidism, unspecified type- Primary documented in this encounter [facility] note* Diagnosis Hypothyroidism, unspecified type- Primary Hypertension, essential Unspecified essential hypertension Stage 3a chronic kidney disease (HCC) Other iron deficiency anemia Dyslipidemia Other and unspecified hyperlipidemia Vitamin D deficiency Unspecified vitamin D deficiency Fatigue, unspecified type Essential hypertension Unspecified essential hypertension documented in this encounter [facility] note* Diagnosis Hypothyroidism, unspecified type documented in this encounter [facility]* Diagnosis Hypertension, essential Unspecified essential hypertension documented [facility] this encounter [facility]* Diagnosis Hypertension, essential- Primary Unspecified essential hypertension documented [facility] this encounter [facility]* Diagnosis Hypertension, essential- Primary Unspecified essential hypertension Stage 3a chronic kidney disease (HCC) Hypothyroidism, unspecified type Fatigue, unspecified type Dyslipidemia Other and unspecified hyperlipidemia Hyponatremia Hyposmolality and/or hyponatremia documented in this encounter [facility]* Diagnosis Labile blood pressure- Primary Elevated blood pressure reading without diagnosis of hypertension Hypertension, essential Unspecified essential hypertension Hyponatremia Hyposmolality and/or hyponatremia Fatigue, unspecified type documented in this encounter [facility]* Diagnosis Hyponatremia- Primary Hyposmolality and/or hyponatremia Hypertension, essential Unspecified essential hypertension documented in this encounter [facility] note* Diagnosis Hypertension, essential- Primary Unspecified essential hypertension Hyponatremia Hyposmolality and/or hyponatremia Screening for depression Encounter for screening examination for other mental health and behavioral disorders documented in this encounter [facility] Discharge instructionsAdditional Instructions Plan is to increase your carvedilol to 25 mg twice daily. Continue your losartan. Hydralazine as needed. Monitor your blood pressure closely at home. Call your primary care's office this morning and let them know of the medication change. Return back to the ED if symptoms change or worsen.[facility] Work Phone: Reason for referral (narrative)* Outpatient Procedure (Routine) - Pending Review Specialty Diagnoses / Procedures Referred By Elsy shi Referred To Contact [facility] Diagnoses Gastroesophageal reflux disease, unspecified whether esophagitis present Essential hypertension Procedures ECG COMPLETE ECG ROUTINE ECG W/LEAST 12 LDS W/I&R Sergei Renner APRN.THIRD RIGGER [address] [place] [address] [facility] [address] [address] Referral ID Status Reason Start Date Expiration Date Visits Requested Visits Authorized [id number] Pending Review Auto-Generat ed Referral 2 07/08/2023 1 1 * Outpatient Procedure (Routine) - Pending Review Specialty Diagnoses / Procedures Referred By Elsy shi Referred To Contact [facility] Diagnoses Gastroesophageal reflux disease, unspecified whether esophagitis present Essential hypertension Procedures US CAROTID ARTERIES DOE VAS LAB DUPLEX SCAN EXTRACRANIAL ART COMPL BI STUDY Sergei Renner, FERNANDEZ.THIRD RIGGER [address] [place] [address] [facility] [place] [address] [place] [id number] Referral ID Status Reason Start Date Expiration Date Visits Requested Visits Authorized [id number] Pending Review Auto-Generat ed Referral 2 07/08/2023 1 1 * Outpatient Procedure (Routine) - Authorized Specialty Diagnoses / Procedures Referred By Elsy shi Referred To Contact [facility] Diagnoses Gastroesophageal reflux disease, unspecified whether esophagitis present Essential hypertension Procedures ECHO ECHO TTHRC R-T 2D W/WOM-MODE COMPL SPEC&COLR D Sergei Renner APRN.THIRD RIGGER [address] [place] [address] [facility] [address] [place] [address] Referral ID Status Reason Start Date Expiration Date Visits Requested Visits Authorized [id number] Authorized Auto-Generat ed Referral 2 07/08/2023 1 1 [facility] for referral (narrative)* Outpatient Procedure (Routine) - Pending Review Specialty Diagnoses / Procedures Referred By Contac t [facility] Diagnoses Dizziness Procedures US CAROTID ARTERIES DOE VAS LAB DUPLEX SCAN EXTRACRANIAL ART COMPL BI STUDY Donita Estes APRN.CNP [address] [place] [address] [facility] [address] [place] [address] Referral ID Status Reason Start Date Expiration Date Visits Requested Visits Authorized [id number] Pending Review Auto-Generat ed Referral 3 07/20/2024 1 1 [facility] for referral (narrative)* Diagnostic Procedure Only (Routine) - Closed Specialty Diagnoses / Procedures Referred By Contac t Referred To Contact [facility] Diagnoses Lumbar radiculopathy Chronic midline low back pain with bilateral sciatica Procedures XR LUMBAR GENERAL 3V AP/LAT/L5-S1 RADEX SPINE LUMBOSACRAL 2/3 VIEWS Sreekanth Cortez DO [address] [place] [address] [place] [address] Referral ID Status Reason Start Date Expiration Date V isits Requested Visits Authorized [id number] Closed Auto-Generate d Referral 12/25/2022 01/24/2024 1 1 [facility] for referral (narrative)No reason for referral information availableWHolzer Hospital Work Phone: Reason for visit Narrative* Diagnostic Procedure Only (Routine) - Closed Specialty Diagnoses / Procedures Referred By Contac t Referred To Contact XR IMAGING Diagnoses Lumbar radiculopathy Chronic midline low back pain with bilateral sciatica Procedures XR LUMBAR GENERAL 3V AP/LAT/L5-S1 RADEX SPINE LUMBOSACRAL 2/3 VIEWS Sreekanth Cortez, DO [address] [place] [address] [place] [address] Referral ID Status Reason Start Date Expiration Date V isits Requested Visits Authorized [id number] Closed Auto-Generate d Referral 12/25/2022 01/24/2024 1 1 [facility] Summary Purpose Family History No Family History [...] Yes March 20, 2023 5:52pm Power of Cardiology Consultants Yes March 20 5:52pm Name of Medical Power of Cardiology Consultants Don Anuragr, hus band March 20, 2023 5:52pm Advance Directive Response Recorded Date/ Time Name of Medical Power of Cardiology Consultants Don Anuragr, hus band March 20, 2023 4:52pm Name of Medical Power of Cardiology Consultants spouse June 29, 2023 11:08am Advance Directives Yes September 5:49am Living Will Yes June 29 11:08am Power of Cardiology Consultants Yes June 29, 2023 11:08am Advance Directive Response Recorded Date/ Time Do you have a Healthcare Power of Cardiology Consultants? No February 22, 2025 6:07am Advance Directives [...] COMPLEX 45 MINS Sreekanth Cortez, DO [address] [place] [address] [facility] [address] [place] [address] Referral ID Status Reason Start Date Expiration Date Visits Requested Visits Authorized [id number] Pending Review Auto-Generat ed Referral 12/25/2022 12/25/2023 1 1 Specialty Diagnoses / Procedures Referred By Contac t Referred To Contact XR IMAGING Diagnoses Lumbar radiculopathy Chronic midline low back pain with bilateral sciatica Procedures XR LUMBAR GENERAL 3V AP/LAT/L5-S1 RADEX SPINE LUMBOSACRAL 2/3 VIEWS Sreekanth Cortez, DO [address] [place] [address] Xr Imaging Referral ID Status Reason Start Date Expiration Date V isits Requested Visits Authorized [id number] Closed Auto-Generate d Referral 12/25/2022 01/24/2024 1 1 Specialty Diagnoses / Procedures Referred By Contac t Referred To Contact Diagnoses Hypothyroidism, unspecified type Sergei Renner, FERNANDEZ.[employer]IGGER [address] [place] [address] Referral ID Status Reason Start Date Expiration Date V isits Requested Visits Authorized [id number] Authorized 06/13/2024 07/13/2025 1 1 Chief Complaint and Reason for Visit Chief Complaint HYPERTENSION Chief Complaint HYPERTENSION DIZZINESS Chief Complaint Admit Date htn February 22, 2025 6:06a m Additional Source Comments INFORMATION SOURCE (unrecogn ized section and content) DATE CREATED AUTHOR 02/16/2018 [facility] DATE CREATED AUTHOR AUTHOR'S ORGANIZ ATION 09/02/2018 [facility] DATE CREATED AUTHOR AUTHOR'S ORGANIZ ATION 03/01/2025 [facility] DATE CREATED AUTHOR AUTHOR'S ORGANIZ ATION 03/02/2025 [facility] DATE CREATED AUTHOR AUTHOR'S ORGANIZ ATION 04/02/2025 [facility] Source Comments (unrecognize d section and content) In the event this informatio n is protected by the Federal Confidentiality of Alcohol and Drug Abuse Patient Records regulations: The Federal rules restrict any use of the information to criminally investigate or prosecute any alcohol or drug abuse patient.[facility] the event this information is protected by the Federal Confidentiality of Alcohol and Drug Abuse Patient Records regulations: The Federal rules restrict any use of the information to criminally investigate or prosecute any alcohol or drug abuse patient.[facility] the event this information is protected by the Federal Confidentiality of Alcohol and Drug Abuse Patient Records regulations: The Federal rules restrict any use of the information to criminally investigate or prosecute any alcohol or drug abuse patient.[facility] the event this information is protected by the Federal Confidentiality of Alcohol and Drug Abuse Patient Records regulations: The Federal rules restrict any use of the information to criminally investigate or prosecute any alcohol or drug abuse patient.[facility] the event this information is protected by the Federal Confidentiality of Alcohol and Drug Abuse Patient Records regulations: The Federal rules restrict any use of the information to criminally investigate or prosecute any alcohol or drug abuse patient.[facility] the event this information is protected by the Federal Confidentiality of Alcohol and Drug Abuse Patient Records regulations: The Federal rules restrict any use of the information to criminally investigate or prosecute any alcohol or drug abuse patient.[facility] the event this information is protected by the Federal Confidentiality of Alcohol and Drug Abuse Patient Records regulations: The Federal rules restrict any use of the information to criminally investigate or prosecute any alcohol or drug abuse patient.[facility] the event this information is protected by the Federal Confidentiality of Alcohol and Drug Abuse Patient Records regulations: The Federal rules restrict any use of the information to criminally investigate or prosecute any alcohol or drug abuse patient.[facility] the event this information is protected by the Federal Confidentiality of Alcohol and Drug Abuse Patient Records regulations: The Federal rules restrict any use of the information to criminally investigate or prosecute any alcohol or drug abuse patient.[facility] the event this information is protected by the Federal Confidentiality of Alcohol and Drug Abuse Patient Records regulations: The Federal rules restrict any use of the information to criminally investigate or prosecute any alcohol or drug abuse patient.[facility] the event this information is protected by the Federal Confidentiality of Alcohol and Drug Abuse Patient Records regulations: The Federal rules restrict any use of the information to criminally investigate or prosecute any alcohol or drug abuse patient.[facility] the event this information is protected by the Federal Confidentiality of Alcohol and Drug Abuse Patient Records regulations: The Federal rules restrict any use of the information to criminally investigate or prosecute any alcohol or drug abuse patient.[facility] the event this information is protected by the Federal Confidentiality of Alcohol and Drug Abuse Patient Records regulations: The Federal rules restrict any use of the information to criminally investigate or prosecute any alcohol or drug abuse patient.[facility] the event this information is protected by the Federal Confidentiality of Alcohol and Drug Abuse Patient Records regulations: The Federal rules restrict any use of the information to criminally investigate or prosecute any alcohol or drug abuse patient.[facility] the event this information is protected by the Federal Confidentiality of Alcohol and Drug Abuse Patient Records regulations: The Federal rules restrict any use of the information to criminally investigate or prosecute any alcohol or drug abuse patient.[facility] the event this information is protected by the Federal Confidentiality of Alcohol and Drug Abuse Patient Records regulations: The Federal rules restrict any use of the information to criminally investigate or prosecute any alcohol or drug abuse patient.[facility] the event this information is protected by the Federal Confidentiality of Alcohol and Drug Abuse Patient Records regulations: The Federal rules restrict any use of the information to criminally investigate or prosecute any alcohol or drug abuse patient.[facility] the event this information is protected by the Federal Confidentiality of Alcohol and Drug Abuse Patient Records regulations: The Federal rules restrict any use of the information to criminally investigate or prosecute any alcohol or drug abuse patient.[facility] the event this information is protected by the Federal Confidentiality of Alcohol and Drug Abuse Patient Records regulations: The Federal rules restrict any use of the information to criminally investigate or prosecute any alcohol or drug abuse patient.[facility] the event this information is protected by the Federal Confidentiality of Alcohol and Drug Abuse Patient Records regulations: The Federal rules restrict any use of the information to criminally investigate or prosecute any alcohol or drug abuse patient.[facility] the event this information is protected by the Federal Confidentiality of Alcohol and Drug Abuse Patient Records regulations: The Federal rules restrict any use of the information to criminally investigate or prosecute any alcohol or drug abuse patient.[facility] the event this information is protected by the Federal Confidentiality of Alcohol and Drug Abuse Patient Records regulations: The Federal rules restrict any use of the information to criminally investigate or prosecute any alcohol or drug abuse patient.[facility] the event this information is protected by the Federal Confidentiality of Alcohol and Drug Abuse Patient Records regulations: The Federal rules restrict any use of the information to criminally investigate or prosecute any alcohol or drug abuse patient.[facility] the event this information is protected by the Federal Confidentiality of Alcohol and Drug Abuse Patient Records regulations: The Federal rules restrict any use of the information to criminally investigate or prosecute any alcohol or drug abuse patient.[facility] the event this information is protected by the Federal Confidentiality of Alcohol and Drug Abuse Patient Records regulations: The Federal rules restrict any use of the information to criminally investigate or prosecute any alcohol or drug abuse patient.[facility] the event this information is protected by the Federal Confidentiality of Alcohol and Drug Abuse Patient Records regulations: The Federal rules restrict any use of the information to criminally investigate or prosecute any alcohol or drug abuse patient.[facility] the event this information is protected by the Federal Confidentiality of Alcohol and Drug Abuse Patient Records regulations: The Federal rules restrict any use of the information to criminally investigate or prosecute any alcohol or drug abuse patient.[facility] the event this information is protected by the Federal Confidentiality of Alcohol and Drug Abuse Patient Records regulations: The Federal rules restrict any use of the information to criminally investigate or prosecute any alcohol or drug abuse patient.[facility] the event this information is protected by the Federal Confidentiality of Alcohol and Drug Abuse Patient Records regulations: The Federal rules restrict any use of the information to criminally investigate or prosecute any alcohol or drug abuse patient.[facility] the event this information is protected by the Federal Confidentiality of Alcohol and Drug Abuse Patient Records regulations: The Federal rules restrict any use of the information to criminally investigate or prosecute any alcohol or drug abuse patient.[facility] the event this information is protected by the Federal Confidentiality of Alcohol and Drug Abuse Patient Records regulations: The Federal rules restrict any use of the information to criminally investigate or prosecute any alcohol or drug abuse patient.[facility] the event this information is protected by the Federal Confidentiality of Alcohol and Drug Abuse Patient Records regulations: The Federal rules restrict any use of the information to criminally investigate or prosecute any alcohol or drug abuse patient.[facility]In the event this information is protected by the Federal Confidentiality of Alcohol and Drug Abuse Patient Records regulations: The Federal rules restrict any use of the information to criminally investigate or prosecute any alcohol or drug abuse patient.[facility] the event this information is protected by the Federal Confidentiality of Alcohol and Drug Abuse Patient Records regulations: The Federal rules restrict any use of the information to criminally investigate or prosecute any alcohol or drug abuse patient.[facility] the event this information is protected by the Federal Confidentiality of Alcohol and Drug Abuse Patient Records regulations: The Federal rules restrict any use of the information to criminally investigate or prosecute any alcohol or drug abuse patient.[facility] the event this information is protected by the Federal Confidentiality of Alcohol and Drug Abuse Patient Records regulations: The Federal rules restrict any use of the information to criminally investigate or prosecute any alcohol or drug abuse patient.[facility] the event this information is protected by the Federal Confidentiality of Alcohol and Drug Abuse Patient Records regulations: The Federal rules restrict any use of the information to criminally investigate or prosecute any alcohol or drug abuse patient.[facility]In the event this information is protected by the Federal Confidentiality of Alcohol and Drug Abuse Patient Records regulations: The Federal rules restrict any use of the information to criminally investigate or prosecute any alcohol or drug abuse patient.[facility]In the event this information is protected by the Federal Confidentiality of Alcohol and Drug Abuse Patient Records regulations: The Federal rules restrict any use of the information to criminally investigate or prosecute any alcohol or drug abuse patient.[facility]In the event this information is protected by the Federal Confidentiality of Alcohol and Drug Abuse Patient Records regulations: The Federal rules restrict any use of the information to criminally investigate or prosecute any alcohol or drug abuse patient.[facility]In the event this information is protected by the Federal Confidentiality of Alcohol and Drug Abuse Patient Records regulations: The Federal rules restrict any use of the information to criminally investigate or prosecute any alcohol or drug abuse patient.[facility]In the event this information is protected by the Federal Confidentiality of Alcohol and Drug Abuse Patient Records regulations: The Federal rules restrict any use of the information to criminally investigate or prosecute any alcohol or drug abuse patient.[facility]In the event this information is protected by the Federal Confidentiality of Alcohol and Drug Abuse Patient Records regulations: The Federal rules restrict any use of the information to criminally investigate or prosecute any alcohol or drug abuse patient.[facility]In the event this information is protected by the Federal Confidentiality of Alcohol and Drug Abuse Patient Records regulations: The Federal rules restrict any use of the information to criminally investigate or prosecute any alcohol or drug abuse patient.[facility]In the event this information is protected by the Federal Confidentiality of Alcohol and Drug Abuse Patient Records regulations: The Federal rules restrict any use of the information to criminally investigate or prosecute any alcohol or drug abuse patient.[facility]In the event this information is protected by the Federal Confidentiality of Alcohol and Drug Abuse Patient Records regulations: The Federal rules restrict any use of the information to criminally investigate or prosecute any alcohol or drug abuse patient.[facility]In the event this information is protected by the Federal Confidentiality of Alcohol and Drug Abuse Patient Records regulations: The Federal rules restrict any use of the information to criminally investigate or prosecute any alcohol or drug abuse patient.[facility]In the event this information is protected by the Federal Confidentiality of Alcohol and Drug Abuse Patient Records regulations: The Federal rules restrict any use of the information to criminally investigate or prosecute any alcohol or drug abuse patient.[facility]In the event this information is protected by the Federal Confidentiality of Alcohol and Drug Abuse Patient Records regulations: The Federal rules restrict any use of the information to criminally investigate or prosecute any alcohol or drug abuse patient.[facility]In the event this information is protected by the Federal Confidentiality of Alcohol and Drug Abuse Patient Records regulations: The Federal rules restrict any use of the information to criminally investigate or prosecute any alcohol or drug abuse patient.[facility]In the event this information is protected by the Federal Confidentiality of Alcohol and Drug Abuse Patient Records regulations: The Federal rules restrict any use of the information to criminally investigate or prosecute any alcohol or drug abuse patient.[facility]In the event this information is protected by the Federal Confidentiality of Alcohol and Drug Abuse Patient Records regulations: The Federal rules restrict any use of the information to criminally investigate or prosecute any alcohol or drug abuse patient.[facility]In the event this information is protected by the Federal Confidentiality of Alcohol and Drug Abuse Patient Records regulations: The Federal rules restrict any use of the information to criminally investigate or prosecute any alcohol or drug abuse patient.[facility]In the event this information is protected by the Federal Confidentiality of Alcohol and Drug Abuse Patient Records regulations: The Federal rules restrict any use of the information to criminally investigate or prosecute any alcohol or drug abuse patient.[facility]In the event this information is protected by the Federal Confidentiality of Alcohol and Drug Abuse Patient Records regulations: The Federal rules restrict any use of the information to criminally investigate or prosecute any alcohol or drug abuse patient.[facility]In the event this information is protected by the Federal Confidentiality of Alcohol and Drug Abuse Patient Records regulations: The Federal rules restrict any use of the information to criminally investigate or prosecute any alcohol or drug abuse patient.[facility]In the event this information is protected by the Federal Confidentiality of Alcohol and Drug Abuse Patient Records regulations: The Federal rules restrict any use of the information to criminally investigate or prosecute any alcohol or drug abuse patient.[facility]In the event this information is protected by the Federal Confidentiality of Alcohol and Drug Abuse Patient Records regulations: The Federal rules restrict any use of the information to criminally investigate or prosecute any alcohol or drug abuse patient.[facility]In the event this information is protected by the Federal Confidentiality of Alcohol and Drug Abuse Patient Records regulations: The Federal rules restrict any use of the information to criminally investigate or prosecute any alcohol or drug abuse patient.[facility]In the event this information is protected by the Federal Confidentiality of Alcohol and Drug Abuse Patient Records regulations: The Federal rules restrict any use of the information to criminally investigate or prosecute any alcohol or drug abuse patient.[facility]In the event this information is protected by the Federal Confidentiality of Alcohol and Drug Abuse Patient Records regulations: The Federal rules restrict any use of the information to criminally investigate or prosecute any alcohol or drug abuse patient.[facility]In the event this information is protected by the Federal Confidentiality of Alcohol and Drug Abuse Patient Records regulations: The Federal rules restrict any use of the information to criminally investigate or prosecute any alcohol or drug abuse patient.[facility]In the event this information is protected by the Federal Confidentiality of Alcohol and Drug Abuse Patient Records regulations: The Federal rules restrict any use of the information to criminally investigate or prosecute any alcohol or drug abuse patient.[facility]In the event this information is protected by the Federal Confidentiality of Alcohol and Drug Abuse Patient Records regulations: The Federal rules restrict any use of the information to criminally investigate or prosecute any alcohol or drug abuse patient.[facility]In the event this information is protected by the Federal Confidentiality of Alcohol and Drug Abuse Patient Records regulations: The Federal rules restrict any use of the information to criminally investigate or prosecute any alcohol or drug abuse patient.[facility]In the event this information is protected by the Federal Confidentiality of Alcohol and Drug Abuse Patient Records regulations: The Federal rules restrict any use of the information to criminally investigate or prosecute any alcohol or drug abuse patient.[facility]In the event this information is protected by the Federal Confidentiality of Alcohol and Drug Abuse Patient Records regulations: The Federal rules restrict any use of the information to criminally investigate or prosecute any alcohol or drug abuse patient.[facility] Reason for Visit (unrecogniz ed section and content) Reason Comments Physical Specialty Diagnoses / Procedures Referred By Contac t Referred To Contact Family Practice / FAMILY MEDICINE Diagnoses Physical Procedures OFFICE/OUTPATIENT ESTABLISHED MOD MDM 30-39 MIN 4C EST MD Janet Willoughby Alyson, FERNANDEZ.THIRD RIGGER [address] [place] [address] Referral ID Status Reason Start Date Expiration Date Visits Re quested Visits Authorized [id number] Closed 02/25/2022 08/22/2022 1 1 Reason Comments [...] lab results Reason Comments Clearance Form from [facility] Reason Comments Patient Question Reason Comments [...] Care Teams (unrecognized sec tion and content) Eeo Officer Relationship Specialty Start Date End Date Sreekanth Cortez, DO [address] [place] [address] PCP - General Family Practice 02/28/16 Eeo Officer Relationship Specialty Start Date End Date Sreekanth Cortez, DO [address] [place] [address] PCP - General Family Practice 02/28/16 Eeo Officer Relationship Specialty Start Date End Date Sreekanth Cortez, DO [address] [place] [address] PCP - General Family Practice 02/28/16 Eeo Officer Relationship Specialty Start Date End Date Sreekanth Cortez, DO [address] [place] [address] PCP - General Family Medicine 02/28/16 Eeo Officer Relationship Specialty Start Date End Date Sreekanth Cortez, DO [address] [place] [address] PCP - General Family Medicine 02/28/16 Eeo Officer Relationship Specialty Start Date End Date Sreekanth Cortez, DO [address] [place] [address] PCP - General Family Medicine 02/28/16 Eeo Officer Relationship Specialty Start Date End Date Sreekanth Cortez DO [address] [place] [address] PCP - General Family Medicine 02/28/16 Eeo Officer Relationship Specialty Start Date End Date rSeekanth Cortez DO [address] [place] [address] PCP - General Family Medicine 02/28/16 Eeo Officer Relationship Specialty Start Date End Date Sreekanth Cortez DO [address] [place] [address] PCP - General Family Medicine 02/28/16 Eeo Officer Relationship Specialty Start Date End Date Sreekanth Cortez DO [address] [place] [address] PCP - General Family Medicine 02/28/16 Eeo Officer Relationship Specialty Start Date End Date Sreekanth Cortez DO [address] [place] [address] PCP - General Family Medicine 02/28/16 Eeo Officer Relationship Specialty Start Date End Date Sreekanth Cortez DO [address] [facility] [place] [address] PCP - General Family Medicine 02/28/16 Eeo Officer Relationship Specialty Start Date End Date Sreekanth Cortez DO [address] [facility] [place] [address] PCP - General Family Medicine 02/28/16 Eeo Officer Relationship Specialty Start Date End Date Sreekanth Cortez DO [address] [place] [address] PCP - General Family Medicine 02/28/16 Team Status: Active Member Role Status Dates Dr. Sreekanth Cortez , DO Family Provider Active Dr. Sreekanth Cortez , DO Primary Care Provider Active Team Status: Inactive Member Role Status Dates Dr. Sreekanth Cortez , DO Primary Care Provider Active Dr. Frederick Carrasco , DO Emergency Provider Active Eeo Officer Relationship Specialty Start Date End Date Sreekanth Cortez DO [address] [place] [address] PCP - General Family Medicine 02/28/16 Eeo Officer Relationship Specialty Start Date End Date Sreekanth Cortez DO [address] [place] [address] PCP - General Family Medicine 02/28/16 Eeo Officer Relationship Specialty Start Date End Date Sreekanth Cortez DO [address] [place] [address] PCP - General Family Medicine 02/28/16 Team Status: Inactive Member Role Status Dates Dr. Sreekanth Cortez , DO Primary Care Provider Active Dr. Frederick Carracso , DO Attending Provider, Emergency P kaylah Active Team Status: Inactive Member Role Status Dates Dr. Sreekanth Cortez , DO Primary Care Provider Active Dr. Josselyn Adhikari , DO Emergency Provider Active Eeo Officer Relationship Specialty Start Date End Date Sreekanth Coretz DO [address] [place] [address] PCP - General Family Medicine 02/28/16 Eeo Officer Relationship Specialty Start Date End Date Sreekanth Cortez DO [address] [place] [address] PCP - General Family Medicine 02/28/16 Eeo Officer Relationship Specialty Start Date End Date Sreekanth Cortez DO [address] [place] [address] PCP - General Family Medicine 02/28/16 Eeo Officer Relationship Specialty Start Date End Date Sreekanth Cortez DO [address] [place] [address] PCP - General Family Medicine 02/28/16 Eeo Officer Relationship Specialty Start Date End Date Sreekanth Cortez, [address] [place] [address] PCP - General Family Medicine 02/28/16 Eeo Officer Relationship Specialty Start Date End Date Sreekanth Cortez DO [address] [place] [address] PCP - General Family Medicine 02/28/16 Eeo Officer Relationship Specialty Start Date End Date Sreekanth Cortez, [address] [place] [address] PCP - General Family Medicine 02/28/16 Eeo Officer Relationship Specialty Start Date End Date Sreekanth Cortez, [address] [place] [address] PCP - General Family Medicine 02/28/16 Eeo Officer Relationship Specialty Start Date End Date Sreekanth Cortez, [address] [place] [address] PCP - General Family Medicine 02/28/16 Eeo Officer Relationship Specialty Start Date End Date Sreekanth Cortez, [address] [place] [address] PCP - General Family Medicine 02/28/16 Eeo Officer Relationship Specialty Start Date End Date Sreekanth Cortez, [address] [place] [address] PCP - General Family Medicine 02/28/16 Eeo Officer Relationship Specialty Start Date End Date Sreekanth Cortez DO [address] [place] [address] PCP - General Family Medicine 02/28/16 Eeo Officer Relationship Specialty Start Date End Date Sreekanth Cortez DO [address] [facility] [place] [address] PCP - General Family Medicine 02/28/16 Eeo Officer Relationship Specialty Start Date End Date Sreekanth Cortez DO [address] [place] [address] PCP - General Family Medicine 02/28/16 Eeo Officer Relationship Specialty Start Date End Date Sreekanth Cortez, [address] [place] [address] PCP - General Family Medicine 02/28/16 Donita Estes, DESK SERGEANT.THIRD RIGGER [address] [place] [address] [facility] 07/30/24 Sergei Renner, DESK SERGEANT.THIRD RIGGER [address] [place] [address] [facility] 07/30/24 Eeo Officer Relationship Specialty Start Date End Date Sreekanth Cortez, [address] [place] [address] PCP - General Family Medicine 02/28/16 Donita Estes, DESK SERGEANT.THIRD RIGGER [address] [place] [address] [facility] 07/30/24 ZurdoSergei, DESK SERGEANT.THIRD RIGGER [address] [place] [address] [facility] 07/30/24 Eeo Officer Relationship Specialty Start Date End Date Sreekanth Cortez DO [address] [place] [address] PCP - General Family Medicine 02/28/16 ZurdoSergei, DESK SERGEANT.THIRD RIGGER [address] [place] [address] [facility] Eeo Officer Relationship Specialty Start Date End Date Sreekanth Cortez DO [address] [place] [address] PCP - General Family Medicine 02/28/16 ZurdoSergei, DESK SERGEANT.THIRD RIGGER [address] [place] [address] [facility] Eeo Officer Relationship Specialty Start Date End Date Sreekanth Cortez DO [address] [place] [address] PCP - General Family Medicine 02/28/16 ZurdoSergei, DESK SERGEANT.THIRD RIGGER [address] [place] [address] [facility] 07/30/24 Eeo Officer Relationship Specialty Start Date End Date Sreekanth Cortez DO [address] [place] [address] PCP - General Family Medicine 02/28/16 [facility] DESK SERGEANT.THIRD RIGGER [address] [place] [address] Meal Packer [facility] 07/30/24 Eeo Officer Relationship Specialty Start Date End Date Sreekanth Cortez DO [address] [place] [address] PCP - General Family Medicine 02/28/16 [facility] DESK SERGEANT.THIRD RIGGER [address] [place] [address] Meal Packer [facility] 07/30/24 Margoth Chavez, DESK SERGEANT.THIRD RIGGER [address] [place] [address] [facility] 02/05/25 Eeo Officer Relationship Specialty Start Date End Date Sreekanth Cortez DO [address] [place] [address] PCP - General Family Medicine 02/28/16 [facility] DESK SERGEANT.THIRD RIGGER [address] [place] [address] [facility]24 Margoth Chavez, DESK SERGEANT.THIRD RIGGER [address] [place] [address] [facility] 02/05/25 Team Status: Active Member Role/Relationship Status Dates Dr. Sreekanth Cortez DO Primary Care Provider Active Team Status: Inactive Member Role/Relationship Status Dates Dr. Sreekanth Cortez DO Primary Care Provider Active Start: February 22, 2025 End: February 22, 2025 Dr. Devaughn Farmer DO Emergency Provider Activ e Start: February 22, 2025 End: February 22, 2025 Eeo Officer Relationship Specialty Start Date End Date Sreekanth Cortez DO [address] [place] [address] PCP - General Family Medicine 02/28/16 [facility], DESK SERGEANT.THIRD RIGGER [address] [place] [address] [facility]24 ScottMargoth, DESK SERGEANT.THIRD RIGGER [address] [place] [address] Meal Packer [facility] 02/05/25 Reynaldo Ordonez MD Me[employer] Packer 02/25/25 03/10/25 Eeo Officer Relationship Specialty Start Date End Date Sreekanth Cortez DO [address] [place] [address] PCP - General Family Medicine 02/28/16 [facility], DESK SERGEANT.THIRD RIGGER [address] [place] [address] [facility]/24 Margoth Chavez, DESK SERGEANT.THIRD RIGGER [address] [facility] [place] [address] [facility]/25 Reynaldo Ordonez MD [employer] 02/25/25 03/10/25 Eeo Officer Relationship Specialty Start Date End Date Sreekanth Cortez DO [address] [facility], [place] [address] [phone] PCP - General Family Medicine 02/28/16 ZurdoSergei, DESK SERGEANT.THIRD RIGGER [address] [place] [address] [facility] 07/30/24 Margoth Chavez, DESK SERGEANT.THIRD RIGGER [address] [place] [address] [facility] 02/05/25 Provider, MD Reynaldo [employer] 02/25/25 03/10/25 Eeo Officer Relationship Specialty Start Date End Date Sreekanth Cortez DO [address] [place] [address] PCP - General Family Medicine 02/28/16 [facility] DESK SERGEANT.THIRD RIGGER [address] [place] [address] [facility] 07/30/24 Margoth Chavez, DESK SERGEANT.THIRD RIGGER [address] [place] [address] [facility] 02/05/25 Eeo Officer Relationship Specialty Start Date End Date Sreekanth Cortez DO [address] [place] [address] PCP - General Family Medicine 02/28/16 ZurdoSergei, DESK SERGEANT.THIRD RIGGER [address] [place] [address] [facility] 07/30/24 Margoth Chavez, DESK SERGEANT.THIRD RIGGER [address] [place] [address] [facility] 02/05/25 Goals (unrecognized section and content) [...] BE BASED ON THE PRIMARY CLINICAL RECORDS. [employer] provides no warranty or guarantee of the accuracy or completeness of information in this document.
--- NOTE | 2025-04-02 06:10 | RAD_ITS ---
PROCEDURE: CHEST PA AND LATERAL 04/02/2025 REASON FOR EXAM: HTN TECHNIQUE: CHEST PA AND LATERAL COMPARISON: 02/22/2025 FINDINGS: Hardware: None Heart: The heart size is normal. Mediastinum: The mediastinal contour is unremarkable. Lungs: Lungs are mildly hyperexpanded with chronic interstitial changes, no superimposed process, no interval change Bones: Degenerative changes are identified within the thoracic spine. RAD/Chest PA and Lateral IMPRESSION: Mildly hyperexpanded lungs with chronic interstitial changes, no superimposed a cute pulmonary process Reading Location: [id number]
--- NOTE | 2025-04-02 06:10 | RAD_ITS ---
PROCEDURE: CHEST PA AND LATERAL 04/02/2025 REASON FOR EXAM: HTN TECHNIQUE: CHEST PA AND LATERAL COMPARISON: 02/22/2025 FINDINGS: Hardware: None Heart: The heart size is normal. Mediastinum: The mediastinal contour is unremarkable. Lungs: Lungs are mildly hyperexpanded with chronic interstitial changes, no superimposed process, no interval change Bones: Degenerative changes are identified within the thoracic spine. RAD/Chest PA and Lateral IMPRESSION: Mildly hyperexpanded lungs with chronic interstitial changes, no superimposed a cute pulmonary process Reading Location: [id number]
[2025-04-02 06:38] LABS: Troponin T High Sensitivity 11 ng/L (<=14)
[2025-04-02 06:40] LABS: AST(SGOT) 18 U/L (<=31); Alanine Aminotransfer ALT/SGPT 12 U/L (<=34); Albumin, Serum 4.0 g/dL (3.4-4.8); Alkaline Phosphatase 113 U/L (35-104); Anion Gap 14 (5-15); BUN 8 mg/dL (4-19); BUN/Creat Ratio 9.3 RATIO (10-20); Calcium,Total 9.0 mg/dL (7.6-11.0); Carbon Dioxide 20.0 mmol/L (21.0-32.0); Chloride 103 mmol/L (98-108); Estimated Creatinine Clearance 40.08 ml/min (50-250); Globulin 2.5 g/dL (2.2-4.2); Glucose 101 mg/dL (70-99); Potassium 3.7 mmol/L (3.3-5.1)
[2025-04-02 07:03] VITALS: BP 176/62; PULSE 64; RESP 18; O2SAT 97
[2025-04-02 07:46] VITALS: BP 177/67; PULSE 78; RESP 16; TEMP 36.7; O2SAT 99
--- NOTE | 2025-04-02 08:30 | EX.ED.DYSGE1 ---
HPI History of Present Illness Chief Complaint: Hypertension Narrative Narrative: Patient is an 85-year-old female presenting to emergency department for hypertension. Patient has a past medical history of CKD, anxiety, hypertension, hypothyroidism. Patient states that she can feel when my blood pressure is up. States that since her primary care doctor took her off of blood pressure medication and changed it to hydralazine she has had issues with her blood pressure. States that she woke up at 4 AM this morning and checked her blood pressure and it was elevated with systolics above 200. She reported feeling lightheaded and foggy in her head. She denied headache, vision changes, chest pain, shortness of breath, abdominal pain. Denies any focal numbness or weakness. Took her meds around 11 PM before bed. [facility] Medical History Mixed hyperlipidemia Stage 3 chronic kidney disease Anxiety Hiatal hernia Dizziness GERD (gastroesophageal reflux disease) Fatigue Labile blood pressure Dizziness Syncope and collapse Hyponatremia Hypothyroidism Hypertension Home Medications ?Medication ?Instructions ?Recorded ?Last Taken ?Type levothyroxine 100 mcg tablet 100 mcg PO BREAKFAST 08/21/16 1 Day Ago History ~10/02/17 losartan 50 mg tablet 50 mg PO BID BP CTRL 10/03/17 1 Day Ago History ~10/02/17 hydralazine 25 mg tablet 25 mg PO TID PRN PRN htn 02/22/25 Unknown History amlodipine 5 mg tablet 5 mg PO QDAY 03/22/25 Unknown History carvedilol 6.25 mg tablet 6.25 mg PO BID 03/22/25 Unknown History clonidine 0.1 mg/24 hr weekly 1 patch transdermal QWEEK 03/22/25 Unknown History transdermal patch furosemide 20 mg tablet 20 mg PO DAILY PRN 03/22/25 Unknown History multivitamin 1 tab PO QDAY 03/22/25 Unknown History sodium chloride 1,000 mg soluble 1,000 mg PO QD-QID PRN 03/22/25 Unknown History tablet Allergy/AdvReac Type Severity Reaction Status Date / Time Milk Containing Products Allergy Intermediate Nausea/Vom/ Verified 04/02/25 05:38 (Dairy) Diarrhea latex Allergy Rash Verified 04/02/25 05:38 gluten AdvReac Nausea/Vom/ Verified 04/02/25 05:38 Diarrhea losartan AdvReac Other Verified 04/02/25 05:38 Family History Mother CVA (cerebral vascular accident) Hypertension Heart disease Father Cancer Sister Hypertension Diabetes Brother Kidney disease Surgical History History of carpal tunnel surgery Social History Smoking Status: Never smoker alcohol intake: never substance use type: does not use ROS ROS ED ROS Narrative see HPI EXAM Physical Exam Narrative Exam Narrative: Vital signs: Reviewed General: Alert and oriented. No acute distress HEENT: Head is normocephalic and atraumatic, sinuses nontender, pupils equal round and reactive. Nares are patent. Oropharynx and throat exams normal. Neck: Supple without lymphadenopathy nontender Cardiovascular: Regular rate and rhythm, no murmurs. No rubs or gallops. Normal S1 and S2 Respiratory: Clear to auscultation bilaterally. No wheezes, rales, rhonchi Abdominal: Soft and nontender. Normal bowel sounds. No guarding or rebound. Nonsurgical abdomen Extremities: No tenderness. No bruising. Normal range of motion. Normal sensation. Skin: No rash or redness. Neurological: Cranial nerves II through XII are grossly intact. Normal strength and sensation. Normal cerebellar function The rest of the physical exam is unremarkable Const Vital Signs: 04/02/25 05:38 04/02/25 05:41 04/02/25 07:03 Temperature 98.5 F Temperature Source Oral Pulse Rate 72 64 Respiratory Rate 18 18 Respiratory Effort Normal Non-Labored Respiratory Pattern Normal Blood Pressure 216/93 H 176/62 H Blood Pressure Mean 134 100 Pulse Ox 96 97 Oxygen Delivery Method Room Air Room Air 04/02/25 07:46 Temperature 98.0 F Temperature Source Pulse Rate 78 Respiratory Rate 16 Respiratory Effort Respiratory Pattern Blood Pressure 177/67 H Blood Pressure Mean 103 Pulse Ox 99 Oxygen Delivery Method MDM MDM MDM Narrative Medical decision making narrative: Patient is a 85-year-old female presenting to emergency department for high blood pressure. Patient was seen and examined. Vitals are stable however she does arrive with a blood pressure of 216/93. She is resting comfortably in bed in no acute distress. Differential includes but is not limited to: Hypertensive urgency versus emergency Patient is endorsing some intermittent lightheadedness and brain fog. She states this happens when her blood pressure is as high. Patient was given p.o. hydralazine. Will order labs, EKG and CT of the brain to rule out any evidence of end organ damage. She is neuro intact. BMP with normal kidney function. Troponin within normal limits. EKG shows normal sinus rhythm with no ischemic changes. Nonspecific ST abnormality. Chest x-ray shows no acute radiographic abnormalities. CT of the brain shows no acute intracranial abnormalities. Patient was reevaluated. Systolics now in the 150s. Patient and at bedside were notified of the negative workup. Encouraged that she talk to her primary care doctor today to discuss additional antihypertensives. Patient discharged from the Emergency Department. I do not feel that the patient's evaluation reveals any acute reason for admission at this time. I instructed them to either follow-up with their primary care physician or promptly return to the Emergency Department for reevaluation should symptoms worsen or new symptoms develop. I explained what symptoms would indicate the need to return to the emergency department. Shared decision making was used. The patient voiced understanding of the treatment plan and is agreeable with it. History & Record Review Discussion w/independent historian: Patient and Family Additional record(s) reviewed:: Prior ED visit Lab Data Attestation: I reviewed the patient's lab results. Labs: Laboratory Results - last 24 hr 04/02/25 05:48 WBC 8.8 RBC 4.17 L Hgb 12.9 Hct 36.6 L MCV 87.8 MCH 30.9 MCHC 35.2 RDW Std Deviation 38.6 RDW Coeff of Selam 12.0 Plt Count 267 MPV 9.4 Immature Gran % (Auto) 0.300 Neut % (Auto) 60.6 Lymph % (Auto) 21.2 Waller % (Auto) 11.6 H Eos % (Auto) 5.6 H Baso % (Auto) 0.7 Absolute Neuts (auto) 5.3 Absolute Lymphs (auto) 1.86 Nucleated RBC % 0 Sodium 136 Potassium 3.7 Chloride 103 Carbon Dioxide 20.0 L Anion Gap 14 BUN 8 Creatinine 0.90 Estim Creat Clear Calc 40.08 L Est GFR (MDRD) Non-Af 64 BUN/Creatinine Ratio 9.3 L Glucose 101 H Calcium 9.0 Total Bilirubin 1.46 H AST 18 ALT 12 Alkaline Phosphatase 113 H Troponin T High Sens 11 D Total Protein 6.5 Albumin 4.0 Globulin 2.5 Albumin/Globulin Ratio 1.6 Radiography Chest X-Ray - ED: 2 View, Read by ED Physician, Normal, No Acute Disease and No Infiltrates Diagnostic Testing: Clinical Impression(s) from Imaging Studies Brain CT 04/02/25 05:54 IMPRESSION: Age consistent changes, no acute findings, no interval change Reading Location: [facility] Chest X-Ray 04/02/25 06:10 IMPRESSION: Mildly hyperexpanded lungs with chronic interstitial changes, no superimposed acute pulmonary process Reading Location: [id number] Discharge Plan Triage Chief Complaint: Hypertension ED Provider: Litzy Mcbride Dx/Rx/DC Orders Clinical Impression: Hypertensive urgency Instructions: ED High Blood Pressure Hypertension Prescriptions: No Action clonidine 0.1 mg/24 hr patch weekly 1 patch transdermal QWEEK amlodipine 5 mg tablet 5 mg PO QDAY multivitamin Tablet 1 tab PO QDAY carvedilol 6.25 mg tablet 6.25 mg PO BID Rx Instructions: must administer with a meal/food sodium chloride 1,000 mg tablet,soluble 1,000 mg PO QD-QID PRN levothyroxine 100 MCG tablet 100 mcg PO BREAKFAST losartan 50 MG tablet 50 mg PO BID hydralazine 25 mg tablet 25 mg PO TID PRN PRN (Reason: htn) furosemide 20 mg tablet 20 mg PO DAILY PRN Primary Care Provider: Sreekanth Cortez Referrals: Sreekanth Cortez DO [Primary Care Provider] - 1 Day Activity Restrictions/Additional Instructions: Your evaluation in the Emergency Department did not reveal any acute reason for admission. However, I want to emphasize that you may be early in the course of a disease process or illness even if it is not present. For this reason you should follow-up within 24 hours for reevaluation with either your primary care physician or if necessary back here in the Emergency Department. You should return to the Emergency Department immediately if your symptoms worsen or new symptoms develop. Print Language: Barbadian Disposition Disposition: Home, Self Care Discharge Date/Time: 04/02/25 07:48
== END 2025-04-02 07:48 | disposition home or self-care (01) ==
PROVIDERS: Emergency Provider Student in an Organized Health Care Education/Training Program; PCP Student in an Organized Health Care Education/Training Program; Visit Provider Student in an Organized Health Care Education/Training Program
DX: I16.0 Hypertensive urgency (principal); N18.30 Chronic kidney disease, stage 3 unspecified
CPT/HCPCS: 70450; 71046; 80053; 84484; 85025; 93005; 99285; A4216

== ENCOUNTER → 2025-04-09 | Outpatient (CLI) | payer MEDICARE, SELFPAY | END | disposition home or self-care (01) | PROVIDERS: PCP Student in an Organized Health Care Education/Training Program; Referring Provider Internal Medicine Cardiovascular Disease; Visit Provider Internal Medicine Cardiovascular Disease | DX: I10 Essential (primary) hypertension (principal); R94.31 Abnormal electrocardiogram [ECG] [EKG]; R42 Dizziness and giddiness | CPT/HCPCS: 93788 ==

== ENCOUNTER → 2025-04-14 | Outpatient (CLI) | payer MEDICARE, SELFPAY ==
--- OUTSIDE RECORDS SUMMARY | 2025-04-14 06:48 | XMS RPT_ITS | CCD ---
Author Organization [facility] CliniSyia Care Team Providers Care Instructional Support Assistant Name Role Phone Mercedes Granado Unavailable Unavailable PROVIDER, UNKNOWN Unavailable Unavailable PROVIDER, UNKNOWN Unavailable Unavailable JOE RIOS Unavailable Unavail able PROVIDER, UNKNOWN Unavailable Unavailable Sreekanth Cortez Unavailable Unavailable Sreekanth Cortez DO Primary Care Provider Sreekanth Cortez DO Primary Care Provider Sreekanth Cortez DO Primary Care Provider Sreekanth Cortez DO Primary Care Provider Sreekanth Cortez DO Primary Care Provider Estes COMPOSITION ROOFER.PULPWOOD BUYER, Donita Queen Unavailable Zurdo COMPOSITION ROOFER.PULPWOOD BUYERSergei Unavailable Scott COMPOSITION ROOFER.Margoth COVARRUBIAS Unavailable Dr. Sreekanth Cortez DO Primary Care Provider Dr. Devaughn Farmer DO Emergency Provider Provider Reynaldo TAYLOR Unavailable Unavailable SREEKANTH CORTEZ Primary Care Unavailable JEREMIAH DEL ROSARIO Admitting Unavailable DELILAH FISHER Attending Unavailable Dr. Devaughn Farmer DO Attending Provider Rae TAYLOR, Dr. Mcghee Emergency Provider Unavailab Dr. Sreekanth Mckee DO Referring Provider Dr. Sidney Lewis MD Attending Provider SREEKANTH CORTEZ Primary Care Unavailable MARIBETH GRIFFITHS Attending Unavailable SREEKANTH CORTEZ Primary Care Unavailable SREEKANTH CORTEZ Attending Unavailable CORTEZ, SREEKANTH L Primary Care Unavailable CORTEZ, SREEKANTH L Primary Care Unavailable SCOTT, MARGOTH MARCELLUS Referring Unavailable SCOTT, MARGOTH MARCELLUS Attending Unavailable CORTEZ, SREEKANTH L Primary Care Unavailable CORTEZ, SREEKANTH L Attending Unavailable CORTEZ, SREEKANTH L Primary Care Unavailable CORTEZ, SREEKANTH L Primary Care Unavailable SCOTT, MARGOTH MARCELLUS Referring Unavailable CORTEZ, SREEKANTH L Primary Care Unavailable SCOTT, MARGOTH MARCELLUS Attending Unavailable CORTEZ, SREEKANTH L Primary Care Unavailable SCOTT, MARGOTH MARCELLUS Attending Unavailable MARILYN GUTIERREZ Attending Unavailable CORTEZ, SREEKANTH L Primary Care Unavailable CORTEZ, SREEKANTH L Primary Care Unavailable SCOTT, MARGOTH MARCELLUS Referring Unavailable CORTEZ, SREEKANTH L Primary Care Unavailable MARILYN GUTIERREZ Referring Unavailable ZURDOSERGEI Attending Unavailable CORTEZ, SREEKANTH L Primary Care Unavailable CORTEZ, SREEKANTH L Primary Care Unavailable ZURDO, SERGEI Referring Unavailable CORTEZ, SREEKANTH L Primary Care Unavailable ZURDO, SERGEI Referring Unavailable Cortez, Sreekanth Primary Care Unavailable Devaughn Farmer Attending Unavailabl e Joshua, Sidney Attending Unavailable Joshua, [place] Referring Unavailable Cortez, Sreekanth Primary Care Unavailable Joshua, Sidney Attending Unavailable Joshua, Sidney Referring Unavailable Cortez, Sreekanth Primary Care Unavailable Cortez, Sreekanth Referring Unavailable Joshua, Sidney Attending Unavailable Cortez, Sreekanth Primary Care Unavailable Cortez, Sreekanth Primary Care Unavailable Litzy Mcbride Attending Unavailable Allergies Allergy Classification Reported Allergen(s) Allergy Type Date of Onset Reaction(s) Facility (20 sources) Milk; Translations: [MILK CONTAINING PRODUCTS (DAIRY)] Drug Allergy 3 Cough [facility] (20 sources) Wheat gluten extract; Translations: [GLUTEN] Drug Allergy 3 Cough, GI Upset [facility] (12 sources) Latex; Translations: [LATEX] Drug Intolerance 5 Itching [facility] (6 sources) Losartan; Translations: [LOSARTAN] Drug Allergy 5 Other: See Comments [facility] Comment on above: tingling tongue (2 sources) Milk Containing Products (Dairy) Allergy to substance 5 Nausea/Vom/Diar alexis [facility] (4 sources) amLODIPine; Translations: [AMLODIPINE] Drug Allergy Other: See Comments [facility] Work Phone: (1 source) Gluten Drug allergy (disorder) 5 [facility] (1 source) Latex Drug allergy (disorder) 5 [facility] (1 source) Losartan Drug Allergy 5 [facility] (1 source) Milk Containing Products (Dairy) Drug allergy (disorder) 5 [facility] Medications Current Medications Medication Drug Class(es) Dates Sig (Normalized) Sig (Original) carvedilol 12.5 mg oral tablet (18 sources) alpha-Adrenergic Fidel, beta-Adrenergic Fidel Start: 03-21-2025 End: 06-19-2025 take 1 tablet by mouth twice daily carvedilol (COREG) 12.5 mg tablet Take 1 tablet by mouth two times a day. 60 tablet 2 03/21/2025 06/19/2025 Active Start: 2025 End: 03-21-2025 take 1 tablet by mouth twice daily at mealtime Carvedilol 6.25 mg tablet Active 6.25 mg PO TWICE A DAY March 22, 2025 12:00am must administer with a meal/food Start: 02-22-2025 End: 02-22-2025 take 1 tablet by mouth twice daily Carvedilol 12.5 mg tablet Discontinued 12.5 mg PO TWICE A DAY February 22, 2025 12:00am February 22, 2025 7:50am blood pressure Start: 02-22-2025 End: 03-22-2025 take 1 tablet by mouth twice daily at mealtime Carvedilol 25 mg tablet Discontinued 25 mg PO TWICE A DAY 60 30 0 February 22, 2025 12:00am March 22, 2025 11:11am must administer with a meal/food Start: 02-05-2025 take 1 tablet by mike th twice daily carvedilol (COREG) 12.5 mg tablet Indications: Hypertension, essential , Stage 3a chronic kidney disease (HCC) Take 1 tablet by mouth two times a day. For blood pressure 180 tablet 1 02/05/2025 Active cephalexin 500 mg oral capsule (7 sources) Cephalosporin Antibacterial Start: 03-31-2023 End: 04-05-2023 [...] oral tablet (20 sources) Loop Diuretic Start: 03-15-20 End: 02-27-20 take 1 tablet by mouth once daily as needed furosemide (LASIX) 20 mg tablet Indications: Hypertension, essential Take 1 tablet by mouth once daily as needed. 02/26/2025 02/26/2026 Active hydrALAZINE hydrochloride 25 mg oral tablet (13 sources) Arteriolar Vasodilator Start: 02-06-20 hydrALAZINE (APRESOLINE) 25 mg tablet Indications: Hypertension, essential , Stage 3a chronic kidney disease (HCC) Take 1 tablet by mouth three times a day as needed (elevated blood pressure > 140/90). 90 tablet 3 02/05/2025 Active levothyroxine sodium 0.1 mg oral tablet (20 sources) l-Thyroxine Start: 09-11-19 End: 10-26-19 take 1 tablet by mouth once daily [...] 3 02/26/2022 03/15/2023 Discontinued Start: 08-21-2016 End: 07-10-2025 take 1 tablet by mouth once daily SYNTHROID 100 mcg tablet Indications: Hypothyroidism, unspecified type Take 1 tablet by mouth once daily. Take on empty stomach 30 tablet 5 01/11/2025 07/10/2025 Active Comment on above: 1 PO daiily [...] (20 sources) Angiotensin 2 Receptor Fidel Start: End: take 1 tablet by mouth twice daily losartan (COZAAR) 25 mg tablet Take 1 tablet by mouth two times a day. 180 tablet 3 09/13/2023 03/23/2024 Discontinued Start: 10-03-2017 End: 01-12-2026 take 1 tablet by mouth twice daily Losartan 50 MG tablet Discontinued 50 mg PO TWICE A DAY October 03, 2017 1:00am April 04, 2025 8:54am BP [facility]L Comment on above: Take 1 tablet by [...] Active Comment on above: Take by mouth. Multivitamin tablet (2 sources) Start: 03-22-2025 Multivitamin tablet Active 1 {tbl} PO daily March 22, 2025 12:00am nirmatrelvir tablet 300 mg (150 mg x [...] 1000 mg oral tablet (20 sources) Start: 03-22-2025 Sodium Chloride 1,000 mg tablet,soluble Active 1000 mg PO 1 to 4 times daily as needed March 22, 2025 12:00am Start: 2025 End: 2026 take 1 tablet by mouth once daily [...] by mike th two times a day. Completed/Discontinued Medications Medication Drug Class(es) Dates Sig (Normalized) Sig (Original) amLODIPine 5 mg oral tablet (18 sources) Dihydropyridine Calcium Channel Fidel Start: 03-21-2025 End: 06-19-2025 take 1 tablet by mouth once daily amLODIPine (NORVASC) 10 mg tablet Take 1 tablet by mouth once daily. 30 tablet 2 03/21/2025 06/19/2025 Active Start: 02-26-2025 End: 04-04-2025 take 1 tablet by mouth once daily Amlodipine 5 mg tablet Discontinued 5 mg PO daily March 22, 2025 12:00am April 04, 2025 8:57am Start: 06-28-2019 End: 07-08-2022 take 0.5 tablet by mouth once daily amLODIPine (NORVASC) 5 mg tablet Take 0.5 tablets by mouth once daily. 90 tablet 1 02/25/2022 07/08/2022 Discontinued Start: 10-06-2017 End: 03-20-2023 take 1 tablet by mouth once daily Amlodipine 5 MG tablet Discontinued 5 mg PO DAILY 30 October 06, 2017 1:00am March 20, 2023 5:51pm Comment on above: Take 0.5 tablets by mouth once daily. benzonatate 100 mg oral capsule (6 sources) Non-narcotic Antitussive Start: 11-06-19 End: 02-14-20 take 1 capsule by mouth every eight hours as needed benzonatate (TESSALON PERLES) 100 mg capsule Take 1 capsule by mouth three times a day as needed. 12 capsule 0 11/06/2023 02/14/2024 Discontinued Comment on above: Take [address] [facility] three times a day as needed. busPIRone hydrochloride 5 mg oral tablet (16 sources) Start: 07-21-20 End: 11-16-19 take 1 tablet by mouth three times daily as needed busPIRone (BUSPAR) 5 mg tablet Indications: CHECO (generalized anxiety disorder) Take 1 tablet by mouth three times a day as needed. 90 tablet 1 08/18/2023 11/16/2023 Comment on above: Take 1 tablet by mike three times a day. Take 1 tablet by mike three times a day as needed. 168 hr cloNIDine 0.96231 mg/hr transdermal system (9 sources) Central alpha-2 Adrenergic Agonist Start: 03-12-20 End: 03-21-20 cloNIDine TTS (CATAPRES-TTS) 0.2 mg/24 hr Apply 1 patch as directed one time a week. 4 patch 2 2025 03/21/2025 Discontinued (Changing Therapy/Dosage Form) Start: 02-26-2025 End: 04-04-2025 Clonidine 0.1 mg/24 hr patch weekly Discontinued 1 NMA TD EVERY WEEK March 22, 2025 12:00am April 04, 2025 8:57am ferrous sulfate 325 mg oral tablet (20 sources) Start: 10-11-2017 End: 04-28-2024 take 1 tablet by mouth twice daily at mealtime ferrous sulfate 325 mg (65 mg iron) tablet Take 325 mg by mouth two times a day with meals. 10/11/2017 04/28/2024 Discontinued Start: 10-11-2017 take 1 tablet by mike th twice daily at mealtime ferrous sulfate 325 [...] Take 1 tablet by mike th twice daily with meals. hydroCHLOROthiazide 12.5 mg oral capsule (5 sources) Thiazide Diuretic Start: 2015 End: 2017 [...] by mike th two times a day. omeprazole 20 mg delayed release oral capsule (20 sources) Proton Pump Inhibitor Start: 03-20-2023 End: 02-22-2025 Omeprazole 20 mg capsule,delayed release(DR/EC) Discontinued 20 mg PO .q3day March 20, 2023 12:00am February 22, 2025 [...] Classification Problem Date Documented Date Episodic/Chronic Abdominal hernia (2 sources) Hiatal hernia; Translations: [Diaphragmatic hernia without obstruction or gangrene] 03-22-2025 Episodic Abdominal pain (1 source) Left flank pain; Translations: [Unspecified abdominal pain] Episodic Anxiety disorders (4 sources) Generalized anxiety disorder; Translations: [Generalized anxiety [...] Chronic Hypertension with complications and secondary hypertension (7 sources) Hypertensive urgency ; Translations: [Hypertensive urgency] Onset: 02-24-2025 02-22-2025 Chronic Nutritional deficiencies (20 sources) Vitamin D deficiency; Translations: [Vitamin D deficiency, unspecified] Onset: 06-28-2019 Chronic Other circulatory disease (4 sources) Labile blood pressure; Translations: [Other specified [...] radiculopathy; Translations: [Radiculopathy, lumbar region] Episodic Syncope (9 sources) Syncope and collapse; Translations: [Syncope and collapse] 10-03-2017 Episodic Thyroid disorders (20 sources) Hypothyroidism; Translations: [Hypothyroidism, unspecified] Onset: 08-31-2016 Chronic Unclassified (12 sources) Encounter for screening mammogram for malignant neoplasm of breast; Translations: [Patient encounter status] Onset: 02-24-2017 Episodic Urinary tract infections (5 sources) Urinary tract infectious disease; Translations: [Urinary tract infection, site not specified] 03-20-2023 Episodic Viral infection (6 sources) Disease caused by 2019-nCoV; Translations: [COVID-19] [...] Onset: 12-13-2017 Episodic Diabetes mellitus without complication (8 sources) Hyperglycemia; Translations: [Hyperglycemia, unspecified] Onset: 02-24-2025 [...] Test Name Value Interpretation Reference Range Facility [facility] 04-04-2025 [facility] Telephone (FAMPWS) CASANDRA HENRY ([id number]) 1940 F Date Time Provider Department 04/04/25 SREEKANTH CORTEZPWS During your visit today, we recorded the following information about you: Sreekanth Cortez DO 04/04/2025 7:11 AM Signed Please call and clarify what grocery team member she is seeing and fax all recent urine testing, labs and renal US testing DO Yovanny Mcgill Linda M, LPN 04/04/2025 8:52 AM Signed Left message to return call. Aby Sanches MA 04/06/2025 9:22 AM Signed Call to pt and she's seeing Dr. Lewis at [facility]. States she just had an appt with them this week. Recent labs and US faxed to [phone]. Aby Sanches MA Allergies As of Date: 04/04/2025 Noted Allergy Reaction AMLODIPINE 03/28/2025 14 - Other: See Comments Comments: Lip numbness GLUTEN 08/09/2023 3 - Cough 8 - GI Upset LATEX 05/15/2015 9 - Itching Comments: Positive patch test LOSARTAN 03/28/2025 14 - Other: See Comments Comments: Numbness of lips MILK CONTAINING PRODUCTS (DAIRY) 08/09/2023 3 - Cough Date Reviewed: 03/28/2025 Reviewed by: William Cash LPN - Fully Assessed Prescriptions as of 04/06/2025 - carvedilol (COREG) 12.5 mg tablet Take [...] by mouth. Problem List As Of Date 04/04/2025 Noted Resolved Essential hypertension [I10] 08/31/2016 Hypothyroidism [...] LFTs abnormal [R79.89] 02/24/2025 Encounter Status:Closed by ABY SANCHES on 04/06/25 Normal [facility] Cardiology Visit Reporton Cardiology Visit Report [facility] [address] [place], [place] [address]. [address] [place], [place] [address] OFFICE VISIT Date of Service: 04/04/25 MR#: [id number] Acct: [id number] Name: CASANDRA HENRY Rep #: [id number] : 1940 Provider: Dr. Sidney Lewis MD Age/Sex: 85/F Location: [facility] Status: Signed HPI HPI History of Present Illness Details: Pleasant 85-year-old lady who presents for an evaluation on her blood pressure. She previously had a history of hypothyroidism now corrected, gastroesophageal reflux disease as well as anxiety. She has also had palpitations and dizziness. She has been on blood pressure medications in the past but says that she has had wild fluctuations in her blood pressure with it going high in the evenings and has had admissions for the above. She was noted to be hyponatremic previously and this was evaluated and treated. She has had carotid ultrasounds which have not demonstrated any significant abnormalities, renal duplex ultrasounds which have not demonstrated any abnormalities 24-hour Holter monitors which have demonstrated predominantly sinus rhythm with occasional premature atrial and ventricular complexes only, and a previous echocardiogram from 2022 which demonstrated preserved ejection fraction. She also had a workup for VMA as well as catecholamines all of which were normal. She has been on carvedilol and as needed hydralazine. Her physical exam today is unremarkable and her electrocardiogram demonstrates sinus rhythm with no evidence of LVH and a rate of 84 bpm. She has had cortisol levels a number of times all of which have been normal. Intake Vital Signs 06/29/23 10:47 04/02/25 05:38 04/04/25 08:47 Height 5 ft 1 in 5 ft 1 in 5 ft 1 in Weight: 134 lb BMI 25.3 BP 108/69 Blood Pressure Location Lt brachial Position Sitting Respiration 16 Pulse 93 Pulse Source Monitor Intake Visit Reasons: HTN (SELF) Advertising Teacher Required: No Accompanied by: Significant Other Is patient in pain?: No Allergies Milk Containing Products (Dairy) Allergy (Intermediate, Verified 04/04/25 08:54) Nausea/Vom/Diarrhea latex Allergy (Verified 04/04/25 08:54) Rash gluten Adverse Reaction (Verified 04/04/25 08:54) Nausea/Vom/Diarrhea losartan Adverse Reaction (Verified 04/04/25 08:54) Other Medications ???Medication ???Instructions ???Recorded ???Confirmed ???Type levothyroxine 100 mcg tablet 100 mcg PO BREAKFAST 08/21/1603/23 History carvedilol 6.25 mg tablet 6.25 mg PO BID 03/22/25 04/04/25 H istory multivitamin 1 tab PO QDAY 03/22/25 04/04/25 Hi story sodium chloride 1,000 mg soluble 1,000 mg PO QD-QID PRN 03/22/25 History tablet Have you fallen in the past year?: No PFSH Medical History Mixed hyperlipidemia Stage 3 chronic kidney disease Anxiety Hiatal hernia Dizziness GERD (gastroesophageal reflux disease) Fatigue Labile blood pressure Dizziness Syncope and collapse Hyponatremia Hypothyroidism Hypertension Surgical History History of carpal tunnel surgery Family History Mother CVA (cerebral vascular accident) Hypertension Heart disease Father Cancer Sister Hypertension Diabetes Brother Kidney disease Social History Smoking Status: Never smoker alcohol intake: never substance use type: does not use ROS Const Const: Positive for fatigue; Negative for weakness, headache(s), daytime sleepiness or difficulty sleeping ENT ENT: Positive for dizziness (when BP elevated); Negative for headache(s) or Nosebleed/epistaxis Cardio Chest Pain: No Palpitations: No Edema: Bilateral (BLE - wears compression stockings and has Lasix prn) Resp Respiratory: Positive for SOB with activity (when HR/BP elevated ); Negative for SOB at rest, SOB orthopnea SOB lying down or Cough GI GI: Negative nausea, vomiting or heartburn Neuro Neuro: Positive for dizziness (when BP elevated); Negative for lightheadedness, near syncope, headache(s) or weakness Endo Endo: Positive for fatigue Cardiology Exam Const Appearance: cooperative, healthy appearing, no acute distress, well developed and well groomed Nutritional Appearance: average body habitus and well nourished Orientation: alert, awake and oriented x3 Head Head: normal to inspection, normocephalic and atraumatic Ears: hearing grossly normal bilaterally and external ears normal Nose: external nose normal, nares normal, nasal mucous membranes and turbinates normal, septum normal and no nasal discharge Face and Sinus: face symmetric Mouth: oral mucosae normal, tongue normal, oropharynx normal an (more content not included)... Normal [facility] 12 Lead EKGon 08-11-2025 12 Lead EKG [facility] [address] [place] [address] 12 Lead EKG 04/02/25 0602 MR#: [id number] Acct: [id number] Name: CASANDRA HENRY Rep #: [id number] : 1940 85 From: Delilah Leal MD Attending Dr: Status: DEP ER Ordering Dr: Litzy Mcbride MD Date: 04/02/25 Location: ED Sex: F C Admitted: Test Reason : DYSRHYTHMIA Blood Pressure : */* mmHG Vent. Rate : 69 BPM Atrial Rate : 69 BPM P-R Int : 168 ms QRS Dur : 80 ms QT Int : 394 ms P-R-T Axes : 49 -8 46 degrees QTcB Int : 422 ms Normal sinus rhythm Minimal voltage criteria for LVH, may be normal variant ( R in aVL ) Nonspecific ST abnormality Abnormal ECG Confirmed by Delilah Leal ([id number]), editor map EVANGELIST CLARKE ([id number]) on 04/03/2025 11:38:53 AM Referred By: Confirmed By: Delilah Leal 04/03/25 1138 Date Delilah Leal MD CC: Dr. Litzy Mcbride MD; Dr. Sreekanth Cortez, DO Signed Normal [facility] Absolute lymphocyte countOrd ered By: Litzy Mcbride on 04-02-2025 Lymphocytes Auto (Unsp spec) [#/Vol] 1.86 10*3/uL 0.83-4.51 [facility] Absolute neutrophil countOrd ered By: Litzy Mcbride on 04-02-2025 Neutrophils (Bld) [#/Vol] 5.3 10*3/uL 2.0-7.7 [facility] Anion gap in Serum or Plasma Ordered By: Litzy Mcbride on 04-02-2025 Anion gap [Moles/Vol] 14 mmol/L 5-15 [facility] Automated lymphocyte count a s percentage of total leukocytesOrdered By: Litzy Mcbride on 04-02-2025 Lymphocytes/100 WBC Auto (Unsp spec) 21.2 % 19-41 [facility] BUN/creatinine ratioOrdered By: Litzy Mcbride on 04-02-2025 Urea nitrogen/Creatinine [Mass ratio] 9.3 mg/mg Low 10-20 [facility] Basophil percentageOrdered B y: Litzy Rae on 04-02-2025 Basophils/100 WBC (Bld) 0.7 % 0-1 [facility] Bilirubin, totalOrdered By: Litzy Mcbride on 04-02-2025 Bilirubin [Mass/Vol] 1.46 mg/dL High 0.00-1.30 [facility] Brain/Head without Contrasto n 04-02-2025 Brain/Head without Contrast [facility] Imaging Services [address] [place], [place] [address] Brain/Head without Contrast MR#: [id number] Acct: [id number] Name: CASANDRA HENRY Rep #: [id number] : 1940 F 85 From: Marcus Ku MD PCP: Dr. Sreekanth Cortez, Status: REG ER Study: Brain/Head without Contrast Date of Exam: 03/23 09/16 Exam# [id number] Ordering Dr: Litzy Mcbride MD PROCEDURE: BRAIN/HEAD WITHOUT CONTRAST 04/02/2025 REASON FOR EXAM: LIGHTHEADED WITH HTN TECHNIQUE: BRAIN/HEAD WITHOUT CONTRAST Coronal and Sagittal reconstruction series were provided. One or more dose reduction techniques were used (e.g., Automated exposure control, adjustment of the mA and/or kV according to patient size, use of iterative reconstruction technique. RADIATION DOSE SUMMARY: CTDlvol: 44.99 mGy DLP: 762.36 mGycm COMPARISON: 02/22/2025 FINDINGS: Brain: No acute hemorrhage midline shift or mass effect. Stable basal ganglia calcifications and remote basal ganglia infarcts. CSF Spaces: Mild generalized cerebral atrophy Sinuses/Mastoids: Clear at visualized levels Bones: No fracture or suspicious osseous lesion CT/Brain/Head without Contrast IMPRESSION: Age consistent changes, no acute findings, no interval change Reading Location: [facility] CC: Dr. Litzy Mcbride MD; Dr. Sreekanth Cortez DO Occupational Therapy Assist: Signed Normal [facility] CBC W/Diff, Automatedon 08 Absolute Lymph 1.86 X10 3/uL Normal 0.83-4.51 [facility] Comment on above: Performed By: #### L 100.0100, L501.4021, L500.4050 ####[facility] [address] [place], [address] Absolute Neut 5.3 X10 3/uL Normal 2.0-7.7 [facility] Comment on above: Performed By: #### L 100.0100, L501.4021, L500.4050 ####[facility] [address] [place], [address] Basophils/100 WBC (Bld) 0.7 % Normal 0-1 [facility] Comment on above: Performed By: #### L 100.0100, L501.4021, L500.4050 ####[facility] [address] [place], [address] Eosinophils/100 WBC (Bld) 5.6 % High 0-5 [facility] Comment on above: Performed By: #### L 100.0100, L501.4021, L500.4050 ####[facility] [address] [place], [address] Erythrocyte distribution width (RBC) [Ratio] 12.0 % Normal 11.6-14.6 [facility] Comment on above: Performed By: #### L 100.0100, L501.4021, L500.4050 ####[facility] [address] [place], [address] Hematocrit (Bld) [Volume fraction] 36.6 % Low 37-47 [facility] Comment on above: Performed By: #### L 100.0100, L501.4021, L500.4050 ####[facility] [address] [place], [address] Hemoglobin (Bld) [Mass/Vol] 12.9 g/dL Normal 12.0-15.0 [facility] Comment on above: Performed By: #### L 100.0100, L501.4021, L500.4050 ####[facility] [address] [place], [address] IG% 0.300 Normal 0.0-0.9 [facility] Comment on above: Result Comment: IG% - Immature Granulocytes (promyelocytes, myelocytes and metamyelocytes) > 1% indicates that a LEFT SHIFT is Present. Performed By: #### L 100.0100, L501.4021, L500.4050 ####[facility] [address] [place], [address] Lymphocytes/100 WBC (Bld) 21.2 % Normal 19-41 [facility] Comment on above: Performed By: #### L 100.0100, L501.4021, L500.4050 ####[facility] [address] [place], [address] MCH (RBC) [Entitic mass] 30.9 pg Normal 27.0-32.0 [facility] Comment on above: Performed By: #### L 100.0100, L501.4021, L500.4050 ####[facility] [address] [place], [address] MCHC (RBC) [Mass/Vol] 35.2 g/dL Normal 32-36 [facility] Comment on above: Performed By: #### L 100.0100, L501.4021, L500.4050 ####[facility] [address] [place], [address] MCV (RBC) [Entitic vol] 87.8 fL Normal 81-99 [facility] Comment on above: Performed By: #### L 100.0100, L501.4021, L500.4050 ####[facility] [address] [place], [address] Monocytes/100 WBC (Bld) 11.6 % High 0-10 [facility] Comment on above: Performed By: #### L 100.0100, L501.4021, L500.4050 ####[facility] [address] [place], [address] Neutrophils/100 WBC (Bld) 60.6 % Normal 47-70 [facility] Comment on above: Performed By: #### L 100.0100, L501.4021, L500.4050 ####[facility] [address] [place], [address] Nucleated RBC (Bld) [#/Vol] 0 10*3/uL Normal 0-5 [facility] Comment on above: Performed By: #### L 100.0100, L501.4021, L500.4050 ####[facility] [address] [place], [address] Platelet mean volume (Bld) [Entitic vol] 9.4 fL Normal 6.2-12.0 [facility] Comment on above: Performed By: #### L 100.0100, L501.4021, L500.4050 ####[facility] [address] [place], [address] Platelets (Bld) [#/Vol] 267 10*3/uL Normal 150-450 [facility] Comment on above: Performed By: #### L 100.0100, L501.4021, L500.4050 ####[facility] [address] [place], [address] RBC (Bld) [#/Vol] 4.17 10*6/uL Low 4.2-5.4 [facility] Comment on above: Performed By: #### L 100.0100, L501.4021, L500.4050 ####[facility] [address] [place], [address] RDW SD 38.6 fl Normal 35.1-43.9 [facility] Comment on above: Performed By: #### L 100.0100, L501.4021, L500.4050 ####[facility] [address] [place], [address] WBC (Bld) [#/Vol] 8.8 10*3/uL Normal 4.4-11.0 [facility] Comment on above: Performed By: #### L 100.0100, L501.4021, L500.4050 ####[facility] [address] [place], [address] Carbon dioxide, total [Moles /volume] in Central venous bloodOrdered By: Litzy Mcbride on 04-02-2025 CO2 [Moles/Vol] 20.0 mmol/L Low 21.0-32.0 [facility] Chest PA and Lateralon 04-02 Chest PA and Lateral [facility] [address] [place] [address] Chest PA and Lateral MR#: [id number] Acct: [id number] Name: CASANDRA HENRY Rep #: [id number] : 1940 F 85 From: Marcus Ku MD PCP: Dr. Sreekanth Cortez, DO Status: REG ER Study: Chest PA and Lateral Date of Exam: 04/02/25 Exam# [id number] Ordering Dr: Litzy Mcbride MD PROCEDURE: CHEST PA AND LATERAL 04/02/2025 REASON FOR EXAM: HTN TECHNIQUE: CHEST PA AND LATERAL COMPARISON: 02/22/2025 FINDINGS: Hardware: None Heart: The heart size is normal. Mediastinum: The mediastinal contour is unremarkable. Lungs: Lungs are mildly hyperexpanded with chronic interstitial changes, no superimposed process, no interval change Bones: Degenerative changes are identified within the thoracic spine. RAD/Chest PA and Lateral IMPRESSION: Mildly hyperexpanded lungs with chronic interstitial changes, no superimposed acute pulmonary process Reading Location: [facility] CC: Dr. Litzy Mcbride MD; Dr. Sreekanth Cortez DO Occupational Therapy Assist: Signed Normal [facility] Chloride assayOrdered By: Raman Mcbride on 04-02-2025 Chloride [Moles/Vol] 103 mmol/L 98-108 [facility] Comprehensive Metabolic Prof ilon 04-02-2025 Albumin [Mass/Vol] 4.0 g/dL Normal 3.4-4.8 [facility] Comment on above: Performed By: #### L 100.0100, L501.4021, L500.4050 ####[facility] [address] [place], [address] Albumin/Globulin [Mass ratio] 1.6 {ratio} Normal 0.9-2.4 [facility] Comment on above: Performed By: #### L 100.0100, L501.4021, L500.4050 ####[facility] [address] [place], [address] ALK PHOS 113 U/L High 35-104 [facility] Comment on above: Performed By: #### L 100.0100, L501.4021, L500.4050 ####[facility] [address] [place], [address] ALT [Catalytic activity/Vol] 12 U/L Normal <=34 [facility] Comment on above: Performed By: #### L 100.0100, L501.4021, L500.4050 ####[facility] [address] [place], [address] AST [Catalytic activity/Vol] 18 U/L Normal <=31 [facility] Comment on above: Performed By: #### L 100.0100, L501.4021, L500.4050 ####[facility] [address] [place], [address] Bilirubin [Mass/Vol] 1.46 mg/dL High 0.00-1.30 [facility] Comment on above: Performed By: #### L 100.0100, L501.4021, L500.4050 ####[facility] [address] [place], [address] BUN/CRE 9.3 RATIO Low 10-20 [facility] Comment on above: Performed By: #### L 100.0100, L501.4021, L500.4050 ####[facility] [address] [place], [address] Calcium [Mass/Vol] 9.0 mg/dL Normal 7.6-11.0 [facility] Comment on above: Performed By: #### L 100.0100, L501.4021, L500.4050 ####[facility] [address] [place], [address] Chloride [Moles/Vol] 103 mmol/L Normal 98-108 [facility] Comment on above: Performed By: #### L 100.0100, L501.4021, L500.4050 ####[facility] [address] [place], [address] CO2 [Moles/Vol] 20.0 mmol/L Low 21.0-32.0 [facility] Comment on above: Performed By: #### L 100.0100, L501.4021, L500.4050 ####[facility] [address] [place], [address] Creatinine [Mass/Vol] 0.90 mg/dL Normal 0.70-1.20 [facility] Comment on above: Performed By: #### L 100.0100, L501.4021, L500.4050 ####[facility] [address] [place], [address] ECRCL 40.08 ml/min Low 50-250 [facility] Comment on above: Performed By: #### L 100.0100, L501.4021, L500.4050 ####[facility] [address] [place], [address] GAP 14 Normal 5-15 [facility] Comment on above: Performed By: #### L 100.0100, L501.4021, L500.4050 ####[facility] [address] [place], [address] GFR/1.73 sq M.predicted among non-blacks MDRD (S/P/Bld) [Vol rate/Area] 64 mL/min/{1.73_m2} Normal >60 [facility] Comment on above: Result Comment: mL/m in/1.73m2 CKD-EPI Creatinine Equation (2020) Performed By: #### L 100.0100, L501.4021, L500.4050 ####[facility] [address] [place], [address] Globulin (S) [Mass/Vol] 2.5 g/dL Normal 2.2-4.2 [facility] Comment on above: Performed By: #### L 100.0100, L501.4021, L500.4050 ####[facility] [address] [place], [address] Glucose [Mass/Vol] 101 mg/dL High 70-99 [facility] Comment on above: Performed By: #### L 100.0100, L501.4021, L500.4050 ####[facility] [address] [place], [address] Potassium [Moles/Vol] 3.7 mmol/L Normal 3.3-5.1 [facility] Comment on above: Result Comment: Hemo lysis present, Results??could be affected. ?? Performed By: #### L 100.0100, L501.4021, L500.4050 ####[facility] [address] [place], [address] Sodium [Moles/Vol] 136 mmol/L Normal 133-145 [facility] Comment on above: Performed By: #### L 100.0100, L501.4021, L500.4050 ####[facility] [address] [place], [address] T PROT 6.5 g/dL Normal 5.9-8.4 [facility] Comment on above: Performed By: #### L 100.0100, L501.4021, L500.4050 ####[facility] [address] [place], [address] Urea nitrogen [Mass/Vol] 8 mg/dL Normal 4-19 [facility] Comment on above: Performed By: #### L 100.0100, L501.4021, L500.4050 ####[facility] [address] [place], [address] Emergency Department Summary on 04-02-2025 Emergency Department Summary [facility] Medical Records Department [address] [place] [address] Emergency Department Summary 04/02/25 MR#: [id number] Acct: [id number] Name: CASANDRA HENRY Rep #: [id number] : 1940 85 From: Litzy Mcbride MD PCP: Dr. Sreekanth Cortez, DO Status:[facility] ER Location: ED HPI History of Present Illness Chief Complaint: Hypertension Narrative Narrative: Patient is an 85-year-old female presenting to emergency department for hypertension. Patient has a past medical history of CKD, anxiety, hypertension, hypothyroidism. Patient states that she can feel when my blood pressure is up. States that since her primary care doctor took her off of blood pressure medication and changed it to hydralazine she has had issues with her blood pressure. States that she woke up at 4 AM this morning and checked her blood pressure and it was elevated with systolics above 200. She reported feeling lightheaded and foggy in her head. She denied headache, vision changes, chest pain, shortness of breath, abdominal pain. Denies any focal numbness or weakness. Took her meds around 11 PM before bed. [facility] Medical History Mixed hyperlipidemia Stage 3 chronic kidney disease Anxiety Hiatal hernia Dizziness GERD (gastroesophageal reflux disease) Fatigue Labile blood pressure Dizziness Syncope and collapse Hyponatremia Hypothyroidism Hypertension Home Medications ???Medication ???Instructions ???Recorded ???Last Taken ???Type levothyroxine 100 mcg tablet 100 mcg PO BREAKFAST 08/21/16 1 Da y Ago History 10/02/17 losartan 50 mg tablet 50 mg PO BID BP CTRL 10/03/17 1 Da y Ago History 10/02/17 hydralazine 25 mg tablet 25 mg PO TID PRN PRN htn 02/22/25 Unknown History amlodipine 5 mg tablet 5 mg PO QDAY 03/22/25 Unknown Hist ory carvedilol 6.25 mg tablet 6.25 mg PO BID 03/22/25 Unknown Hi story clonidine 0.1 mg/24 hr weekly 1 patch transdermal QWEEK 03/22/25 Unknown History transdermal patch furosemide 20 mg tablet 20 mg PO DAILY PRN 03/22/25 Unknow n History multivitamin 1 tab PO QDAY 03/22/25 Unknown His tory sodium chloride 1,000 mg soluble 1,000 mg PO QD-QID PRN 03/22/25 Un known History tablet Allergy/AdvReac Type Severity Reaction Status Date / Time Milk Containing Products Allergy Intermediate Nausea/Vom/ Verified 04/02/25 05:38 (Dairy) Diarrhea latex Allergy Rash Verified 04/02/25 05:38 gluten AdvReac Nausea/Vom/ Verified 04/02/25 05:38 Diarrhea losartan AdvReac Other Verified 04/02/25 05:38 Family History Mother CVA (cerebral vascular accident) Hypertension Heart disease Father Cancer Sister Hypertension Diabetes Brother Kidney disease Surgical History History of carpal tunnel surgery Social History Smoking Status: Never smoker alcohol intake: never substance use type: does not use ROS ROS ED ROS Narrative see HPI EXAM Physical Exam Narrative Exam Narrative: Vital signs: Reviewed General: Alert and oriented. No acute distress HEENT: Head is normocephalic and atraumatic, sinuses nontender, pupils equal round and reactive. Nares are patent. Oropharynx and throat exams normal. Neck: Supple without lymphadenopathy nontender Cardiovascular: Regular rate and rhythm, no murmurs. No rubs or gallops. Normal S1 and S2 Respiratory: Clear to auscultation bilaterally. No wheezes, rales, rhonchi Abdominal: Soft and nontender. Normal bowel sounds. No guarding or rebound. Nonsurgical abdomen Extremities: No tenderness. No bruising. Normal range of motion. Normal sensation. Skin: No rash or redness. Neurological: Cranial nerves II through XII are grossly intact. Normal strength and sensation. Normal cerebellar function The rest of the physical exam is unremarkable Const Vital Signs: 04/02/25 05:38 04/02/25 05:41 04/02/25 07:03 Temperature 98.5 F Temperature Source Oral Pulse Rate 72 64 Respiratory Rate 18 18 Respiratory Effort Normal Non-Labored Respiratory Pattern Normal Blood Pressure 216/93 H 176/62 H Blood Pressure Mean 134 100 Pulse Ox 96 97 Oxygen Delivery Method Room Air Room Air 04/02/25 07:46 Temperature 98.0 F Temperature Source Pulse Rate 78 Respiratory Rate 16 Respiratory Effort Respiratory Pattern Blood Pressure 177/67 H Blood Pressure Mean 103 Pulse Ox 99 Oxygen Delivery Method MDM MDM MDM Narrative Medical decision making narrative: Patient is a 85-year-old female presenting to emergency department for high blood pressure. Patient was seen and examined. Vital (more content not included)... Normal [facility] Eosinophil percentageOrdered By: Litzy Mcbride on 04-02-2025 Eosinophils/100 WBC (Bld) 5.6 % High 0-5 [facility] Erythrocyte distribution wid th ratioOrdered By: Litzy Mcbride on 04-02-2025 Erythrocyte distribution width (RBC) [Ratio] 12.0 % 11.6-14.6 [facility] Erythrocyte distribution wid th standard deviationOrdered By: Litzybar Mcbride on 04-02-2025 Erythrocyte distribution width (RBC) [Ratio] 38.6 fl 35.1-43.9 [facility] Glomerular filtration rate ( GFR) estimation/1.73 sq m using serum, plasma, or whole bOrdered By: Litzy Mcbride on 04-02-2025 GFR/1.73 sq M.predicted among non-blacks MDRD (S/P/Bld) [Vol rate/Area] 64 mL/min/{1.73_m2} >60 [facility] Comment on above: mL/min/1.73m2 CKD-EP I Creatinine Equation (2020) Hematocrit Auto (Bld) [Volum e fraction]Ordered By: Litzy Mcbride on 04-02-2025 Hematocrit (Bld) [Volume fraction] 36.6 % Low 37-47 [facility] Hemoglobin measurementOrdere d By: Litzy Mcbride on 04-02-2025 Hemoglobin (Bld) [Mass/Vol] 12.9 g/dL 12.0-15.0 [facility] Immature granulocytes/100 WB C Auto (Bld)Ordered By: Litzy Mcbride on 04-02-2025 Immature granulocytes/100 WBC (Bld) 0.300 % 0.0-0.9 [facility] Comment on above: IG% - Immature Granu locytes (promyelocytes, myelocytes and metamyelocytes) > 1% indicates that a LEFT SHIFT is Present. L501.4021on 04-02-2025 Trop T High Sen 11 ng/L Normal <=14 [facility] Comment on above: Performed By: #### L 100.0100, L501.4021, L500.4050 ####[facility] [address] [place], [place], [id number] Laboratory - Chemistry and C hemistry - challengeOrdered By: Litzy Mcbride on 04-02-2025 AST [Catalytic activity/Vol] 18 U/L <32 [facility] MCV (mean corpuscular volume ) determinationOrdered By: Litzy Mcbride on 04-02-2025 MCV (RBC) [Entitic vol] 87.8 fL 81-99 [facility] Mean corpuscular hemoglobin (MCH) determinationOrdered By: Litzy Mcbride on 04-02-2025 MCH (RBC) [Entitic mass] 30.9 pg 27.0-32.0 [facility] Mean corpuscular hemoglobin concentration (MCHC) determinationOrdered By: Litzy Mcbride on 04-02-2025 MCHC (RBC) [Mass/Vol] 35.2 g/dL 32-36 [facility] Mean platelet volume determi nationOrdered By: Litzy Mcbride on 04-02-2025 Platelet mean volume (Bld) [Entitic vol] 9.4 fL 6.2-12.0 [facility] Monocyte percentageOrdered B y: Litzy Mcbride on 04-02-2025 Monocytes/100 WBC (Bld) 11.6 % High 0-10 [facility] Neutrophil percentageOrdered By: Litzy Mcbride on 04-02-2025 Neutrophils/100 WBC (Bld) 60.6 % 47-70 [facility] Nucleated red blood cell per centageOrdered By: Litzy Mcbride on 04-02-2025 Nucleated RBC/100 WBC (Bld) [Ratio] 0 % 0-5 [facility] Platelet countOrdered By: Raman Mcbride on 04-02-2025 Platelets (Bld) [#/Vol] 267 10*3/uL 150-450 [facility] Potassium measurement (mass/ volume)Ordered By: Litzy Mcbride on 04-02-2025 Potassium (Unsp spec) [Mass/Vol] 3.7 mmol/L 3.3-5.1 [facility] Comment on above: Hemolysis present, R esults could be affected. RBC Auto (Bld) [#/Vol]Ordere d By: Litzy Mcbride on 04-02-2025 RBC (Bld) [#/Vol] 4.17 10*6/uL Low 4.2-5.4 [facility] Serum creatinine measurement (mass/volume)Ordered By: Litzy Mcbride on 04-02-2025 Creatinine [Mass/Vol] 0.90 mg/dL 0.70-1.20 [facility] Serum globulin measurementOr dered By: Litzy Mcbride on 04-02-2025 Globulin (S) [Mass/Vol] 2.5 g/dL 2.2-4.2 [facility] Serum glucose measurement (m ass/volume)Ordered By: Litzy Mcbride on 04-02-2025 Glucose [Mass/Vol] 101 mg/dL High 70-99 [facility] Serum or plasma alanine blair otransferase (ALT) measurementOrdered By: Litzy Mcbride on 04-02-2025 ALT [Catalytic activity/Vol] 12 U/L <35 [facility] Serum or plasma albumin lillie urement (mass/volume)Ordered By: Litzy Mcbride on 04-02-2025 Albumin [Mass/Vol] 4.0 g/dL 3.4-4.8 [facility] Serum or plasma albumin/glob ulin mass ratioOrdered By: Litzy Mcbride on 04-02-2025 Albumin/Globulin [Mass ratio] 1.6 {ratio} 0.9-2.4 [facility] Serum or plasma alkaline drew sphatase measurementOrdered By: Litzy Mcbride on 04-02-2025 ALP [Catalytic activity/Vol] 113 U/L High 35-104 [facility] Serum or plasma calcium lillie urement (mass/volume)Ordered By: Litzy Mcbride on 04-02-2025 Calcium [Mass/Vol] 9.0 mg/dL 7.6-11.0 [facility] Serum or plasma urea nitroge n measurement (mass/volume)Ordered By: Litzy Mcbride on 04-02-2025 Urea nitrogen [Mass/Vol] 8 mg/dL 4-19 [facility] Sodium levelOrdered By: Frederick Mcbride on 04-02-2025 Sodium [Moles/Vol] 136 mmol/L 133-145 [facility] Total proteinOrdered By: Katerina Mcbride on 04-02-2025 Protein [Mass/Vol] 6.5 g/dL 5.9-8.4 [facility] Troponin T.cardiac [Mass/vol ume] in Serum or Plasma by High sensitivity methodOrdered By: Litzy Mcbride on 04-02-2025 Troponin T.cardiac High sensitivity method [Mass/Vol] 11 ng/L <14 [facility] Comment on above: Delta: 12 on 5-0618 US RENAL ARTERY DOE VAS LABo n 04-02-2025 US RENAL ARTERY [facility] Non-Invasive Vascular Laboratory [facility] Renal or Mesenteric Duplex Bilateral/Complete Date of service/time: 04/02/2025 9:42:55 AM Name: CASANDRA HENRY Date of : 1940 Age: 85 years Gender: F Clinical Indication Hypertension not responding to medical management. TECHNIQUE -------- A visceral duplex ultrasound examination was performed, including grayscale imaging and color Doppler and spectral Doppler examination of the below mentioned arteries and veins. FINDINGS -------- Aorta at renals PSV: 135 cm/s. EDV: 0 cm/s. Right renal artery origin PSV: 116 cm/s. EDV: 26 cm/s. Right renal artery proximal PSV: 85 cm/s. EDV: 24 cm/s. Right renal artery mid PSV: 170 cm/s. EDV: 39 cm/s. Right renal artery distal PSV: 111 cm/s. EDV: 23 cm/s. Right renal artery to aortic ratio (RAR): 1.3 Right kidney: Size: 10.2 cm. Right parenchyma resistive index and acceleration time Upper pole RI: 0.70 AT: 32 msec. Mid pole RI: 0.69 AT: 36 msec. Lower pole RI: 0.73 AT: 20 msec. Right renal vein patent. Left renal artery origin PSV: 60 cm/s. EDV: 18 cm/s. Left renal artery proximal PSV: 160 cm/s. EDV: 37 cm/s. Left renal artery distal PSV: 94 cm/s. EDV: 15 cm/s. Left renal artery to aortic ratio (RAR): 1.2 Left kidney: Size: 9.7 cm. Left parenchyma resistive index and acceleration time Upper pole RI: 0.70 AT: 36 msec. Mid pole RI: 0.73 AT: 44 msec. Renal cyst noted measuring 3.5 cm Lower pole RI: 0.70 AT: 60 msec. Left renal vein patent. IMPRESSION Technically difficult exam due to bowel gas. AORTA Patent. RIGHT RENAL Right renal artery: 0-59% stenosis. No evidence of hemodynamically significant stenosis. LEFT RENAL Left renal artery: 0-59% stenosis. No evidence of hemodynamically significant stenosis. Technologist: Niurka Merrill RVT Ordering physician: MARILYN GUTIERREZ Interpreting physician: CATHERINE Turcios MD Final CC [facility] : [id number] csSISUID See Link below for Image Normal [facility] White blood cell (WBC) count Ordered By: Litzy Mcbrdie on 04-02-2025 WBC (Bld) [#/Vol] 8.8 10*3/uL 4.4-11.0 [facility] CATECHOLAMINES FRACTIONATED, URINE FREEon 03-30-2025 CATECHOLAMINES INTERPRETATION See Note Normal [facility] Comment on above: Order Comment: Speci men Type: URINE SPECIMEN Ordering Facility: [address] Address: [address] [place] [address] Result Comment: TEST INFORMATION: Catecholamines Fractionated, Urine Free Smaller increases in catecholamine concentrations (less than two times the upper limit) usually are the result of physiological stimuli, drugs, or improper specimen collection. Significant elevation of one or more catecholamines (three or more times the upper reference limit) is associated with an increased probability of a neuroendocrine tumor. Access complete set of age- and/or gender-specific reference intervals for this test in the [facility] Test Directory ([employer]). This test was developed and its performance characteristics determined by [facility]. It has not been cleared or approved by the [place] Food and Drug Administration. This test was performed in a CLIA certified laboratory and is intended for clinical purposes. Performed By: #### 3 5678-2, 2888-6 #### [facility] CLIA [id number] [address] [place] [address] [place] CREATININE, URINE PER 24H 870 mg/d Normal 400-1300 [facility] Comment on above: Order Comment: Speci men Type: URINE SPECIMEN Ordering Facility: [address] Address: [address] [place], [place] [id number] Result Comment: Perf ormed By: [facility] [address] [place] [address] Product Accountant: Mat Mathis MD, PhD [facility] Number: [id number] Performed By: #### 3 5678-2, 288-6 #### [facility] CLIA [id number] [address] [place] [address] [place] CREATININE, URINE PER VOLUME 29 mg/dL Normal [facility] Comment on above: Order Comment: Speci men Type: URINE SPECIMEN Ordering Facility: [facility] [place] Address: [address] [place] [address] Performed By: #### 3 5678-2, 2887-6 #### [facility] CLIA [id number] [address] [place], [place] [id number] [place] DOPAMINE, UR 24HR 48 ug/d Low 71-485 [facility] Comment on above: Order Comment: Speci men Type: URINE SPECIMEN Ordering Facility: [facility] [place] Address: [facility] [address] [place] [id number] Result Comment: REFE RENCE INTERVAL: Dopamine, Urine - ug/d Access complete set of age- and/or gender-specific reference intervals for this test in the [facility] Test Directory ([employer]). Performed By: #### 3 5678-2, 2887-6 #### [facility] CLIA [id number] [address] [place], [place] [address] [place] DOPAMINE, UR PER VOL 16 ug/L Normal [facility] Comment on above: Order Comment: Speci men Type: URINE SPECIMEN Ordering Facility: [facility] [place] Address: [address] [place] [address] Performed By: #### 3 5678-2, 288-6 #### [facility] CLIA [id number] [address] [place], [place] [address] [place] DOPAMINE, UR RATIO TO DYE WORKER 55 ug/g DYE WORKER Normal 0-250 [facility] Comment on above: Order Comment: Speci men Type: URINE SPECIMEN Ordering Facility: [facility] [place] Address: [address] [place] [address] Performed By: #### 3 5678-2, 2887-6 #### [facility] CLIA [id number] [address] [place] [id number] [place] EPINEPHRINE, UR 24HR <3 Normal 1-14 [facility] Comment on above: Order Comment: Speci men Type: URINE SPECIMEN Ordering Facility: [facility] [place] Address: [address] [place] [address] Result Comment: REFE RENCE INTERVAL: Epinephrine, Urine - ug/d Access complete set of age- and/or gender-specific reference intervals for this test in the [facility] Test Directory ([employer]). Performed By: #### 3 5678-2, 2887-6 #### [facility] CLIA [id number] [address] [place], [place] [address] [place] EPINEPHRINE, UR PER VOL <1 Normal [facility] Comment on above: Order Comment: Speci men Type: URINE SPECIMEN Ordering Facility: [facility] [place] Address: [address] [place] [address] Performed By: #### 3 5678-2, 2887-6 #### [facility] CLIA [id number] [address] [place], [place] [address] [place] EPINEPHRINE, UR RATIO TO DYE WORKER <3 Normal 0-20 [facility] Comment on above: Order Comment: Speci men Type: URINE SPECIMEN Ordering Facility: [facility] [place] Address: [address] [place] [address] Performed By: #### 3 5678-2, 2887-6 #### [facility] CLIA [id number] [address] [place] [id number] [place] HOURS COLLECTED 24 hr Normal [facility] Comment on above: Order Comment: Speci men Type: URINE SPECIMEN Ordering Facility: [facility] [place] Address: [address] [place] [address] Result Comment: Per 24h calculations are provided to aid interpretation for collections with a duration of 24 hours and an average daily urine volume. For specimens with notable deviations in collection time or volume, ratios of analytes to a corresponding urine creatinine concentration may assist in result interpretation. Performed By: #### 3 5678-2, 2888-6 #### [facility] CLIA [id number] [address] [place] [address] [place] NOREPINEPHRINE, UR 24HR 21 ug/d Normal 14-120 [facility] Comment on above: Order Comment: Speci men Type: URINE SPECIMEN Ordering Facility: [facility] Address: [address] [place] [address] Result Comment: REFE RENCE INTERVAL: Norepinephrine, Urine - ug/d Access complete set of age- and/or gender-specific reference intervals for this test in the [facility] Test Directory ([employer]). Performed By: #### 3 5678-2, 28886 #### [facility] CLIA [id number] [address] [place] [address] [place] NOREPINEPHRINE, UR PER VOL 7 ug/L Normal [facility] Comment on above: Order Comment: Speci men Type: URINE SPECIMEN Ordering Facility: [facility] Address: [address] [place] [address] Performed By: #### 3 5678-2, 6 #### [facility] CLIA [id number] [address] [place] [id number] [place] NOREPINEPHRINE, UR RATIO TO DYE WORKER 24 ug/g DYE WORKER Normal 0-45 [facility] Comment on above: Order Comment: Speci men Type: URINE SPECIMEN Ordering Facility: Address: [address] [place] [address] Performed By: #### 3 5678-2, 2886 #### [facility] CLIA [id number] [address] [place] [id number] [place] TOTAL VOLUME 3000 mL Normal [facility] Comment on above: Order Comment: Speci men Type: URINE SPECIMEN Ordering Facility: Address: [address] [place] [address] Performed By: #### 3 5678-2, 2888-6 #### [facility] CLIA [id number] [address] [place] [address] [place] METANEPHRINES 24H URon 03-30 Metanephrines (24H U) [Mass/Time] 348 ug/24 hr Normal 140-785 [facility] Comment on above: Order Comment: Speci men Type: URINE SPECIMENOrdering Facility: [facility] Address: [address] [place] [address] Result Comment: Urin e Metanephrine test performed by Liquid Chromatography Tandem Mass Spectrometry (LC-MS/MS). Results obtained with different methods or kits cannot be used interchangeably. This test was developed, and its performance characteristics determined by the [facility] Department of Pathology and Laboratory Medicine. It has not been cleared or approved by the FDA. The [facility] Department of Pathology and Laboratory Medicine is regulated under CLIA as qualified to perform high-complexity testing. This test is used for clinical purposes. It should not be regarded as investigational or for research. Performed By: #### U METAN ####[facility] [id number] [place] [address] [place] NORMETANEPHRINES, UR 219 ug/24 hr Normal 88-444 [facility] Comment on above: Order Comment: Speci men Type: URINE SPECIMENOrdering Facility: [facility] Address: [address] [place] [address] Performed By: #### U METAN ####[facility] [id number] [place] [id number] [place] Sodium (24H U) [Moles/Time]o n 03-30-2025 PERIOD (HRS) 24 hr Normal [facility] Comment on above: Order Comment: Speci men Type: URINE SPECIMENOrdering Facility: [facility] Address: [address] [place] [address] Performed By: #### 2 956-1 ####[facility] [id number] [place] [id number] [place] Specimen volume (24H U) 3 L Normal [facility] Comment on above: Order Comment: Speci men Type: URINE SPECIMENOrdering Facility: [facility] Address: [address] [place] [address] Performed By: #### 2 956-1 ####[facility] [id number] [place] [address] [place] Sodium 24h Ur-sRateon 2024 Sodium (24H U) [Moles/Time] 84 mmol/24 hr Normal 40-220 [facility] Comment on above: Order Comment: Speci men Type: URINE SPECIMENOrdering Facility: [facility] Address: [address] [place] [address] Performed By: #### 2 956-1 ####[facility] [id number] [place] [address] [place] VMA 24 HR URINEon 03-30-2025 PERIOD (HRS) 24 hr Normal [facility] Comment on above: Order Comment: Speci men Type: URINE SPECIMEN Ordering Facility: Address: [address] [place] [address] Performed By: #### 3 5678-2, 2888-6 #### [facility] CLIA [id number] [address] [place] [address] [place] Order Comment: Speci men Type: URINE SPECIMENOrdering Facility: [facility] Address: [address] [place] [address] Performed By: #### U METAN ####[facility] [id number] [place] [id number] [place] Specimen volume (24H U) 3 L Normal [facility] Comment on above: Order Comment: Speci men Type: URINE SPECIMEN Ordering Facility: Address: [address] [place] [address] Performed By: #### 3 5678-2, 2888-6 #### [facility] CLIA [id number] [address] [place] [address] [place] Order Comment: Speci men Type: URINE SPECIMENOrdering Facility: [facility] Address: [address] [place] [address] Performed By: #### U METAN ####[facility] [id number] [place] [address] [place] Vanillylmandelate (24H U) [Mass/Time] 2.1 mg/24hrs Normal 1.8-5.7 [facility] Comment on above: Order Comment: Speci men Type: URINE SPECIMEN Ordering Facility: Address: [facility] [place] [id number] Result Comment: Urin e Vanillylmandelic Acid (VMA) test performed by Liquid Chromatography Tandem Mass Spectrometry (LC-MS/MS). Results obtained with different methods or kits cannot be used interchangeably. This test was developed, and its performance characteristics determined by the [facility] Department of Pathology and Laboratory Medicine. It has not been cleared or approved by the FDA. The [facility] Department of Pathology and Laboratory Medicine is regulated under CLIA as qualified to perform high-complexity testing. This test is used for clinical purposes. It should not be regarded as investigational or for research. Performed By: #### 3 5678-2, 2888-6 #### [facility] CLIA [id number] [address] [place], [place] [id number] [place] Basic metabolic 2000 panelon 03-28-2025 Anion gap [Moles/Vol] 16 mmol/L High 8-15 [facility] Comment on above: Order Comment: Speci men Type: URINE SPECIMEN Ordering Facility: [facility] Address: [address] [place] [id number] Performed By: #### 3 5678-2, 2888-6 #### [facility] CLIA [id number] [address] [place], [place] [address] [place] Calcium [Mass/Vol] 9.3 mg/dL Normal 8.5-10.2 [facility] Comment on above: Order Comment: Speci men Type: URINE SPECIMEN Ordering Facility: Address: [address] [place] [address] Performed By: #### 3 5678-2, 2888-6 #### [facility] CLIA [id number] [address] [place] [id number] [place] Chloride [Moles/Vol] 102 mmol/L Normal 98-107 [facility] Comment on above: Order Comment: Speci men Type: URINE SPECIMEN Ordering Facility: Address: [address] [place] [address] Performed By: #### 3 5678-2, 2888-6 #### [facility] CLIA [id number] [address] [place] [id number] [place] CO2 [Moles/Vol] 19 mmol/L Low 22-30 [facility] Comment on above: Order Comment: Speci men Type: URINE SPECIMEN Ordering Facility: Address: [address] [place] [address] Performed By: #### 3 5678-2, 2888-6 #### [facility] CLIA [id number] [address] [place] [id number] [place] Creatinine [Mass/Vol] 0.80 mg/dL Normal 0.58-0.96 [facility] Comment on above: Order Comment: Speci men Type: URINE SPECIMEN Ordering Facility: Address: [address] [place] [address] Performed By: #### 3 5678-2, 2888-6 #### [facility] CLIA [id number] [address] [place] [id number] [place] eGFRcr SerPlBld CKD-EPI 2020 73 mL/min/1.73m??? Normal >=60 [facility] Comment on above: Order Comment: Speci men Type: URINE SPECIMEN Ordering Facility: [address] Address: [address] [place] [address] Result Comment: Hina mated Glomerular Filtration Rate [...] reflect actual GFR. Performed By: #### 3 5678-2, 2888-6 #### [facility] CLIA [id number] [address] [place] [address] [place] Glucose [Mass/Vol] 106 mg/dL High 74-99 [facility] Comment on above: Order Comment: Speci men Type: URINE SPECIMEN Ordering Facility: [address] Address: [address] [place] [address] Result Comment: The [place] Diabetes Association (ADA) provides guidance for cutoff [...] Standards of Medical Care in Diabetes 2016, [place] [employer] Association. Diabetes Care. 2016.39(Suppl 1). Performed By: #### 3 5678-2, 2888-6 #### [facility] CLIA [id number] [address] [place] [address] [place] Potassium [Moles/Vol] 4.1 mmol/L Normal 3.7-5.1 [facility] Comment on above: Order Comment: Speci men Type: URINE SPECIMEN Ordering Facility: [address] Address: [address] [place] [address] Performed By: #### 3 5678-2, 2888-6 #### [facility] CLIA [id number] [address] [place], [place] [address] [place] Sodium [Moles/Vol] 137 mmol/L Normal 136-144 [facility] Comment on above: Order Comment: Speci men Type: URINE SPECIMEN Ordering Facility: [place] Address: [facility] [place] [id number] Performed By: #### 3 5678-2, 2888-6 #### [facility] CLIA [id number] [address] [place] [address] [place] Urea nitrogen [Mass/Vol] 9 mg/dL Normal 7-21 [facility] Comment on above: Order Comment: Speci men Type: URINE SPECIMEN Ordering Facility: Address: [address] [place], [place] [address] Performed By: #### 3 5678-2, 2888-6 #### [facility] CLIA [id number] [address] [place] [address] [place] CATECHOLAMINES FRAon 08-06-2 025 CATECHOLAMINE INTERPRETATION PLASMA See Note Normal [facility] Comment on above: Order Comment: Speci men Type: BLOOD SPECIMEN [facility] Address: [address] [place] [address] Result Comment: INTE RPRETIVE INFORMATION: Catecholamines Panel, Plasma Small increases in catecholamines (less than 2 times the upper reference limit) are usually the result of physiological stimuli, drugs, or improper specimen collection. Significant elevation of one or more catecholamines (2 or more times the upper reference limit) is associated with an increased probability of a neuroendocrine tumor. Measurement of plasma or urine fractionated metanephrines provides better diagnostic sensitivity than measurement of catecholamines. Lower catecholamine concentrations are observed in specimens collected from supine adults. To convert to picograms per milliliter (pg/mL), multiply the reported concentration for Dopamine by 0.153, Epinephrine by 0.183, and Norepinephrine by 0.169. Access complete set of age- and/or gender-specific reference intervals for this test in the [facility] Test Directory ([employer]). This test was developed and its performance characteristics determined by [facility]. It has not been cleared or approved by the US Food and Drug Administration. This test was performed in a CLIA certified laboratory and is intended for clinical purposes. Performed By: [facility] [address] [place] [address] Product Accountant: Mat Mathis MD, PhD CLIA Number: [id number] Performed By: #### P LCAT #### [facility] CLIA [id number] [address] [place] [address] DOPAMINE <130 Normal <=240 [facility] Comment on above: Order Comment: Speci men Type: BLOOD SPECIMEN [facility] Address: [address] [place] [address] Result Comment: INTE RPRETIVE INFORMATION: Dopamine Seated (15 min) less than or equal to 240 pmol/L Supine (30 min) less than or equal to 240 pmol/L Performed By: #### P LCAT #### [facility] CLIA [id number] [address] [place] [address] EPINEPHRINE (P) 608 pmol/L High <=330 [facility] Comment on above: Order Comment: Speci men Type: BLOOD SPECIMEN [facility] Address: [address] [place] [address] Result Comment: INTE RPRETIVE INFORMATION:Epinephrine Seated (15 min) less than or equal to 330 pmol/L Supine (30 min) less than or equal to 265 pmol/L Performed By: #### P LCAT #### [facility] CLIA [id number] [address] [place] [address] NOREPINEPHRINE 2867 pmol/L Normal 5238-3545 [facility] Comment on above: Order Comment: Speci men Type: BLOOD SPECIMEN [facility] Address: [address] [place] [address] Result Comment: INTE RPRETIVE INFORMATION: Norepinephrine Seated (15 min) 1050 - 4800 pmol/L Supine (30 min) 680 - 3100 pmol/L Performed By: #### P LCAT #### [facility] CLIA [id number] [address] [place] [address] CNOVon 03-28-2025 CNOV Office Visit (FAMPWS ) CASANDRA HENRY ([id number]) 1940 F Date Time Provider Department 03/28/25 7:00 AM MARILYN GUTIERREZ During your visit today, we recorded the [...] Scheduled cardiology appointment with Dr. Lewis at [facility] on 04/04. 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 Ray for stage 3 CKD- states [...] WHEN PFRMD 12/05/[address] [facility] FLX W/REMOVAL LESION BY HOT [...] - 5.20 (more content not included)... Normal [facility] Cortis SerPl-mCncon 03-28-20 25 Cortisol [Mass/Vol] 15.9 ug/dL Normal 4.8-19.5 [facility] Comment on above: Order Comment: Speci men Type: URINE SPECIMEN Ordering Facility: [address] Address: [address] [place] [address] Result Comment: Prov ided reference range is from 6-10 AM sample collection time. Cortisol Reference Range: 6-10 AM = 4.8-19.5 ug/dL, 4-8 PM = 2.5-11.9 ug/dL Performed By: #### 3 5678-2, 2888-6 #### [facility] CLIA [id number] [address] [place] [address] [place] CNPLorelei 03-26-2025 CNPN Telephone (FAMPWS) CASANDRA HENRY ([id number]) 1940 F Date Time Provider Department 03/26/25 [facility] visit today, we recorded [...] Date Reviewed: 03/13/2025 Reviewed by: Margoth Chavez APRN.PULPWOOD BUYER - Fully Assessed Reason for Visit: Patient Update [1234] Patient Question [6567] Prescriptions as of 03/28/2025 - carvedilol (COREG) [...] by CHINEDU (more content not included)... Normal [facility] CNPNon 03-17-2025 CNPN Telephone (FAMPWS) CASANDRA HENRY ([id number]) 1940 F Date Time Provider Department 03/17/25 [...] calling: self Call patient at: at home [phone] (home) [phone] (cell) Was an appointment scheduled: No Closing [...] mg BID. On 02/19, pt saw Margoth Scott with no med changes but a referral to [facility] for labile blood pressure. On 02/24, pt went to [facility] and was admitted overnight for BP-discharged [...] BP today (more content not included)... Normal [facility] CNOVon 2025 [facility] CASANDRA HENRY ([id number]) 1940 F Date Time Provider Department 03/12/25 11:20 AM [facility] During your visit today, we recorded [...] WHEN PFRMD 12/05/[address] [facility] FLX W/REMOVAL LESION BY HOT [...] mouth once daily as needed. cloNIDine TTS (XLPXIQMD-OKT-6) 0.1 mg/24 hr Apply 1 patch as [...] well nourished.. (more content not included)... Normal [facility] Basic metabolic 2000 panelon 03-08-2025 Anion gap [Moles/Vol] 15 mmol/L Normal 8-15 [facility] Comment on above: Order Comment: Speci men Type: URINE SPECIMEN Ordering Facility: [address] Address: [address] [place] [address] Performed By: #### 3 5678-2, 2888-6 #### [facility] CLIA [id number] [address] [place] [address] [place] [address] [place] Calcium [Mass/Vol] 9.7 mg/dL Normal 8.5-10.2 [facility] Comment on above: Order Comment: Speci men Type: URINE SPECIMEN Ordering Facility: [facility] Address: [address] [place] [address] Performed By: #### 3 5678-2, 2888-6 #### [facility] CLIA [id number] [address] [address] [place] Chloride [Moles/Vol] 101 mmol/L Normal 98-107 [facility] Comment on above: Order Comment: Speci men Type: URINE SPECIMEN Ordering Facility: [facility] Address: [address] [place] [address] Performed By: #### 3 5678-2, 2888-6 #### [facility] CLIA [id number] [address] [place] [id number] [place] CO2 [Moles/Vol] 21 mmol/L Low 22-30 [facility] Comment on above: Order Comment: Speci men Type: URINE SPECIMEN Ordering Facility: Address: [address] [place] [address] Performed By: #### 3 5678-2, 2888-6 #### [facility] CLIA [id number] [address] [place] [id number] [place] Creatinine [Mass/Vol] 0.80 mg/dL Normal 0.58-0.96 [facility] Comment on above: Order Comment: Speci men Type: URINE SPECIMEN Ordering Facility: Address: [address] [place] [address] Performed By: #### 3 5678-2, 2888-6 #### [facility] CLIA [id number] [address] [address] [place] eGFRcr SerPlBld CKD-EPI 2020 74 mL/min/1.73m??? Normal >=60 [facility] Comment on above: Order Comment: Speci men Type: URINE SPECIMEN Ordering Facility: [facility] Address: [address] [place] [address] Result Comment: Hina mated Glomerular Filtration Rate [...] reflect actual GFR. Performed By: #### 3 5678-2, 2888-6 #### [facility] CLIA [id number] [address] [address] [place] Glucose [Mass/Vol] 92 mg/dL Normal 74-99 [facility] Comment on above: Order Comment: Speci men Type: URINE SPECIMEN Ordering Facility: [address] Address: [address] [place] [address] Result Comment: The [place] Diabetes Association (ADA) provides guidance for cutoff [...] Standards of Medical Care in Diabetes 2016, [place] [employer] Association. Diabetes Care. 2016.39(Suppl 1). Performed By: #### 3 5678-2, 2887-6 #### [facility] CLIA [id number] [address] [address] [place] Potassium [Moles/Vol] 4.7 mmol/L Normal 3.7-5.1 [facility] Comment on above: Order Comment: Speci men Type: URINE SPECIMEN Ordering Facility: [address] Address: [address] [place], [place] [address] Performed By: #### 3 5678-2, 288-6 #### [facility] CLIA [id number] [address] [address] [place] Sodium [Moles/Vol] 137 mmol/L Normal 136-144 [facility] Comment on above: Order Comment: Speci men Type: URINE SPECIMEN [facility]: [facility] [place] [facility] [address] Performed By: #### 3 5678-2, 2888-6 #### [facility] CLIA [id number] [address] [place] [address] [place] Urea nitrogen [Mass/Vol] 10 mg/dL Normal 7-21 [facility] Comment on above: Order Comment: Speci men Type: URINE SPECIMEN Ordering Facility: [facility] Address: [facility] [place] [address] [place] [address] Performed By: #### 3 5678-2, 2888-6 #### [facility] CLIA [id number] [address] [place] [address] Hellen 03-08-2025 CNPN Telephone (PODCCP) CASANDRA HENRY ([id number]) 1940 F Date Time Provider Department 03/08/25 SREEKANTH CORTEZ POD[facility]P During your visit today, we recorded the following information about you: Vale Yu 03/08/2025 9:49 AM Signed Transitional Care Management (TCM) [facility] Monitoring Program Provider Action / FYI: na SUMMARY: Outreach type: INITIAL OUTREACH Discharge Network Status: In[facility] Patient [facility] from [facility] on 02.[facility].25. Admitted for Dizziness. . Contact [...] once daily as needed. - cloNIDine TTS (CABCUTRZ-VQG-7) 0.1 mg/24 hr Apply 1 patch as [...] Encounter Status:Closed by VALE YU on 03/08/25 Normal [facility] CNPNon 02-28-2025 CNPN Telephone (PODCCP) CASANDRA HENRY ([id number]) 1940 F Date Time Provider Department 02/28/25 SREEKANTH CORTEZ PODTHAI During your visit today, we recorded the following information about you: Aspen Silvestre 02/28/2025 1:01 PM Signed Transitional Care Management (TCM) [facility] Monitoring Program Provider Action / FYI: N/a SUMMARY: Outreach type: INITIAL OUTREACH Discharge Network Status: In-Network Discharge Source of Patient: [facility] TCM Discharge Report Patient discharged from [place] on 02/25/2025. Admitted for Dizziness. Contact made with patient: Yes, for Initial Outreach Hi my name is Aspen Silvestre and I am calling from the [facility] on behalf of your Primary Care Provider, [...] Center phone number to speak with a central scheduler who can assist you with that appointment. This will give you an opportunity to ask any questions or address any concerns you may have with your Primary Care Provider. [Inform the patient that if they have any questions or concerns prior to that appointment, to call their PCP's office right away.] Action Taken: Patient had a follow-up appointment with their PCP. Aspen Konrad February 28, 2025 1:00 PM Allergies As [...] once daily as needed. - cloNIDine TTS (VKCYGGNU-UYM-0) 0.1 mg/24 hr Apply 1 patch as [...] Status:Closed by ASPEN SILVESTRE on 02/28/25 Normal [facility] CNOVon 02-26-2025 CNOV Office Visit (FAMPWS ) CASANDRA HENRY ([id number]) 1940 F Date Time Provider Department 02/26/25 9:00 AM MARGOTH CHAVEZ During your visit today, we recorded the following information about you: Pulse Blood pressure Weight 75/minute 170/80 63.8 kg Margoth Chavez, COMPOSITION ROOFERAKILAH 02/26/2025 10:18 AM Signed This is a 84 year old female who presents today with: Follow up ER visit 02/22 [facility] (new order to increase losartan to twice daily which is what she is already on) [facility] 02/24-02/25 (new order to increase carvedilol to [...] mild headaches -they increased her carvedilol at [facility] [place] over the weekend but she didn't take [...] WHEN PFRMD 12/05/[address] [facility] FLX W/REMOVAL LESION BY HOT [...] and potenti (more content not included)... Normal [facility] ALLIED HEALTHon 02-25-2025 ALLIED HEALTH HNO ID: [id number] Author: MARTHA MARTINI MRI Tech Service: Radiology Author Type: Runner Out Type: Allied Health Filed: 02/25/2025 11:28 Note [...] PATIENT PRESENTS WITH AN IMPLANTABLE OR ATTACHED CLAIMS COORDINATOR: No RADIOLOGY DEPARTMENT: MR; Exam(s) Completed: Head: Routine Brain. Aromatherapy Administered: No PERIPHERAL IV DATA: Not applicable SIGNED BY: RADHA Marmolejo February 25, 2025 11:28 AM [facility] Aldost SerPl-ncon 02-26-20 25 Aldosterone [Mass/Vol] 3.6 ng/dL Normal 0.0-<35.4 [facility] Comment on above: Order Comment: Speci men Type: BLOOD SPECIMEN [facility] Address[facility] [address] Result Comment: The reference interval for serum/plasma [...] ng/dL. Performed By: #### 1 763-2 #### [facility] CLIA [id number] [facility] [place] [address] [place] [address] [place] CBC W Auto Differential pane l (Bld)on 02-25-2025 Basophils (Bld) [#/Vol] 10*3/uL Normal <0.11 [facility] Comment on above: Order Comment: Speci men Type: BLOOD SPECIMENOrdering Facility: [facility] Address: [address] [place] [address] Performed By: #### 5 7021-8 ####[facility]ATORYCLIA [id number] [place] [address] [place] Basophils/100 WBC (Bld) 0.2 % Normal [facility] Comment on above: Order Comment: Speci men Type: BLOOD SPECIMENOrdering Facility: [facility] Address: [address] [place] [address] Performed By: #### 5 7021-8 ####[facility]ORATORYCLIA [id number] [address] [place] Differential cell count method Nom (Bld) Auto Normal [facility] Comment on above: Order Comment: Speci men Type: BLOOD SPECIMENOrdering Facility: [facility] Address: [address] [place] [address] Performed By: #### 5 7021-8 ####[facility]ORATORYCLIA [id number] [place] [address] [place] Eosinophils (Bld) [#/Vol] 0.46 10*3/uL High <0.46 [facility] Comment on above: Order Comment: Speci men Type: BLOOD SPECIMENOrdering Facility: [facility] Address: [address] [place] [address] Performed By: #### 5 7021-8 ####[facility]ORATORYCLIA [id number] [address] [place] Eosinophils/100 WBC (Bld) 5.5 % Normal [facility] Comment on above: Order Comment: Speci men Type: BLOOD SPECIMENOrdering Facility: [facility] Address: [address] [place] [address] Performed By: #### 5 7021-8 ####[facility]ORATORYCLIA [id number] [place] [address] [place] Erythrocyte distribution width (RBC) [Ratio] 11.9 % Normal 11.5-15.0 [facility] Comment on above: Order Comment: Speci men Type: BLOOD SPECIMENOrdering Facility: [facility] Address: [address] [place] [address] Performed By: #### 5 7021-8 ####[facility]ORATORYCLIA [id number] [place] [address] [place] Hematocrit (Bld) [Volume fraction] 34.4 % Low 36.0-46.0 [facility] Comment on above: Order Comment: Speci men Type: BLOOD SPECIMENOrdering Facility: [facility] Address: [address] [place] [address] Performed By: #### 5 7021-8 ####[facility]ORATORYCLIA [id number] [place] [address] [place] Hemoglobin (Bld) [Mass/Vol] 11.9 g/dL Normal 11.5-15.5 [facility] Comment on above: Order Comment: Speci men Type: BLOOD SPECIMENOrdering Facility: [facility] Address: [address] [place] [address] Performed By: #### 5 7021-8 ####[facility]ORATORYCLIA [id number] [address] [place] Immature granulocytes (Bld) [#/Vol] 10*3/uL Normal <0.10 [facility] Comment on above: Order Comment: Speci men Type: BLOOD SPECIMENOrdering Facility: [facility] Address: [address] [place] [address] Performed By: #### 5 7021-8 ####[facility]ORATORYCLIA [id number] [address] [place] Immature granulocytes/100 WBC (Bld) 0.2 % Normal [facility] Comment on above: Order Comment: Speci men Type: BLOOD SPECIMENOrdering Facility: [facility] Address: [address] [place] [address] Performed By: #### 5 7021-8 ####[facility]ATORYCLIA [id number] [address] [place] Lymphocytes (Bld) [#/Vol] 1.70 10*3/uL Normal 1.00-4.00 [facility] Comment on above: Order Comment: Speci men Type: BLOOD SPECIMENOrdering Facility: [facility] Address: [address] [place] [address] Performed By: #### 5 7021-8 ####[facility]ATORYCLIA [id number] [address] Lymphocytes/100 WBC (Bld) 20.4 % Normal [facility] Comment on above: Order Comment: Speci men Type: BLOOD SPECIMENOrdering Facility: [facility] Address: [address] [place] [address] Performed By: #### 5 7021-8 ####[facility]ATORYCLIA [id number] [address] [place] MCH (RBC) [Entitic mass] 30.5 pg Normal 26.0-34.0 [facility] Comment on above: Order Comment: Speci men Type: BLOOD SPECIMENOrdering Facility: [facility] Address: [address] [place] [address] Performed By: #### 5 7021-8 ####[facility]ORATORYCLIA [id number] [address] MCHC (RBC) [Mass/Vol] 34.6 g/dL Normal 30.5-36.0 [facility] Comment on above: Order Comment: Speci men Type: BLOOD SPECIMENOrdering Facility: [facility] Address: [address] [place] [address] Performed By: #### 5 7021-8 ####[facility]ATORYCLIA [id number] [address] MCV (RBC) [Entitic vol] 88.2 fL Normal 80.0-100.0 [facility] Comment on above: Order Comment: Speci men Type: BLOOD SPECIMENOrdering Facility: [facility] Address: [address] [place], [place] [address] Performed By: #### 5 7021-8 ####[facility]ORATORYCLIA [id number] [place] [address] [place] Monocytes (Bld) [#/Vol] 0.99 10*3/uL High <0.87 [facility] Comment on above: Order Comment: Speci men Type: BLOOD SPECIMENOrdering Facility: [facility] Address: [address] [place] [address] Performed By: #### 5 7021-8 ####[facility]ORYCLIA [id number] [address] [place] Monocytes/100 WBC (Bld) 11.9 % Normal [facility] Comment on above: Order Comment: Speci men Type: BLOOD SPECIMENOrdering Facility: [facility] Address: [address] [place] [address] Performed By: #### 5 7021-8 ####[facility]ATORYCLIA [id number] [address] [place] Neutrophils (Bld) [#/Vol] 5.14 10*3/uL Normal 1.45-7.50 [facility] Comment on above: Order Comment: Speci men Type: BLOOD SPECIMENOrdering Facility: [facility] Address: [address] [place] [address] Performed By: #### 5 7021-8 ####[facility]ATORYCLIA [id number] [address] Neutrophils/100 WBC (Bld) 61.8 % Normal [facility] Comment on above: Order Comment: Speci men Type: BLOOD SPECIMENOrdering Facility: [facility] Address: [address] [place] [address] Performed By: #### 5 7021-8 ####[facility]ATORYCLIA [id number] [address] [place] Nucleated RBC (Bld) [#/Vol] 10*3/uL Normal <0.01 [facility] Comment on above: Order Comment: Speci men Type: BLOOD SPECIMENOrdering Facility: [facility] Address: [address] [place] [address] Performed By: #### 5 7021-8 ####[facility]ATORYCLIA [id number] [address] [place] Nucleated RBC/100 WBC (Bld) [Ratio] 0.0 /100 WBC Normal [facility] Comment on above: Order Comment: Speci men Type: BLOOD SPECIMENOrdering Facility: [facility] Address: [address] [place] [address] Performed By: #### 5 7021-8 ####[facility]ORYCLIA [id number] [address] [place] Platelet mean volume (Bld) [Entitic vol] 9.3 fL Normal 9.0-12.7 [facility] Comment on above: Order Comment: Speci men Type: BLOOD SPECIMENOrdering Facility: [facility] Address: [address] [place] [address] Performed By: #### 5 7021-8 ####[facility]ORATORYCLIA [id number] [address] [place] Platelets (Bld) [#/Vol] 270 10*3/uL Normal 150-400 [facility] Comment on above: Order Comment: Speci men Type: BLOOD SPECIMENOrdering Facility: [facility] Address: [address] [place] [address] Performed By: #### 5 7021-8 ####[facility]ORYCLIA [id number] [address] [place] RBC (Bld) [#/Vol] 3.90 10*6/uL Normal 3.90-5.20 [facility] Comment on above: Order Comment: Speci men Type: BLOOD SPECIMENOrdering Facility: [facility] Address: [address] [place] [address] Performed By: #### 5 7021-8 ####[facility]ATORYCLIA [id number] [address] [place] WBC (Bld) [#/Vol] 8.33 10*3/uL Normal 3.70-11.00 [facility] Comment on above: Order Comment: Speci men Type: BLOOD SPECIMENOrdering Facility: [facility] Address: [address] [place] [address] Performed By: #### 5 7021-8 ####[facility]ORATORYCLIA [id number] [place] [address] [place] CNDSbilly 02-25-2025 CNDS HNO ID: [id number] Author: PHILL DAO APRN.CNP Service: Hospital Medicine Author Type: Nurse Practitioner [...] Attending Provider: Delilah Fisher MD Primary Service: 3, [facility] Nurse Practitioner: Phill Dao APRN.CNP REASON FOR [...] Department Center 02/26/2025 9:00 AM Margoth Chavez APRN.[facility] 05/14/2025 2:20 PM Sreekanth Cortez DO [facility] The patient's risk for 30-day readmission is determined using the following contributi (more content not included)... [facility] CONSULTon 02-25-2025 CONSULT HNO ID: [id number] Author: CISCO MCKENNA APRN.[employer] Service: Neurology General Author Type: Nurse Practitioner [...] pm [place]: 8 am to 12 pm [place]: 8 am to 12 pm [place]: 1 pm to 3 pm [place]: 1 pm to 5 pm [place]: 1 pm to 5 pm [facility]: 3 pm to 5 pm Statutory holidays do not have teleneuro coverage. [place]: During Off hours for Teleneurology please page (not call) [facility] [address] yardage control clerk for concerns. [place]: During Off hours for Teleneurology please page (not call) [facility] [phone] yardage control clerk for concerns. [facility]: There is no off-hours coverage [...] Laterality [place] (more content not included)... Normal [facility] Comprehensive metabolic 2000 panelon 02-25-2025 Albumin [Mass/Vol] 3.7 g/dL Low 3.9-4.9 [facility] Comment on above: Order Comment: Speci men Type: BLOOD SPECIMENOrdering Facility: [facility] Address: [address] [place] [address] Performed By: #### 2 4323-8, 98796-4 ####[facility]ORYCLIA [id number] [place] [address] [place] ALP [Catalytic activity/Vol] 120 U/L Normal 34-123 [facility] Comment on above: Order Comment: Speci men Type: BLOOD SPECIMENOrdering Facility: [facility] Address: [address] [place] [address] Performed By: #### 2 8, ####[facility]ORATORYCLIA [id number] [place] [address] [place] ALT [Catalytic activity/Vol] 11 U/L Normal 7-38 [facility] Comment on above: Order Comment: Speci men Type: BLOOD SPECIMENOrdering Facility: [facility] Address: [address] [place] [address] Performed By: #### 2 8, ####[facility]ATORYCLIA [id number] [place] [address] [place] Anion gap [Moles/Vol] 12 mmol/L Normal 8-15 [facility] Comment on above: Order Comment: Speci men Type: BLOOD SPECIMENOrdering Facility: [facility] Address: [address] [place] [address] Performed By: #### 2 4323-03, ####[facility]ATORYCLIA [id number] [address] AST [Catalytic activity/Vol] 16 U/L Normal 13-35 [facility] Comment on above: Order Comment: Speci men Type: BLOOD SPECIMENOrdering Facility: [facility] Address: [address] [id number] Performed By: #### 2 8, ####[facility]ORYCLIA [id number] [address] [place] Bilirubin [Mass/Vol] 1.4 mg/dL High 0.2-1.3 [facility] Comment on above: Order Comment: Speci men Type: BLOOD SPECIMENOrdering Facility: [facility] Address: [address] [address] Performed By: #### 2 8, ####[facility]ATORYCLIA [id number] [address] [place] Calcium [Mass/Vol] 8.7 mg/dL Normal 8.5-10.2 [facility] Comment on above: Order Comment: Speci men Type: BLOOD SPECIMENOrdering Facility: [facility] Address: [address] [place] [address] Performed By: #### 2 4323-8, ####[facility]ORATORYCLIA [id number] [place] [address] [place] Chloride [Moles/Vol] 99 mmol/L Normal 98-107 [facility] Comment on above: Order Comment: Speci men Type: BLOOD SPECIMENOrdering Facility: [facility] Address: [address] [place] [address] Performed By: #### 2 4323-8, ####[facility]ATORYCLIA [id number] [place] [address] [place] CO2 [Moles/Vol] 24 mmol/L Normal 22-30 [facility] Comment on above: Order Comment: Speci men Type: BLOOD SPECIMENOrdering Facility: [facility] Address: [address] [place] [address] Performed By: #### 2 4323-8, ####[facility]ORATORYCLIA [id number] [place] [address] [place] Creatinine [Mass/Vol] 0.81 mg/dL Normal 0.58-0.96 [facility] Comment on above: Order Comment: Speci men Type: BLOOD SPECIMENOrdering Facility: [facility] Address: [address] [place] [address] Performed By: #### 2 4323-8, ####[facility]ORATORYCLIA [id number] [address] [place] Creatinine and Glomerular filtration rate.predicted panel (S/P/Bld) 73 mL/min/1.73m??? Normal >=60 [facility] Comment on above: Order Comment: Speci men Type: BLOOD SPECIMENOrdering Facility: [facility] Address: [address] [place] [address] Result Comment: Hina mated Glomerular Filtration Rate [...] actual GFR. Performed By: #### 2 4323-8, ####[facility]ATORYCLIA [id number] [place] [address] [place] Glucose [Mass/Vol] 98 mg/dL Normal 74-99 [facility] Comment on above: Order Comment: Johanne soto Type: BLOOD SPECIMENOrdering Facility: [facility] Address: [address] [place], [place] [address] Result Comment: The [place] Diabetes [employer] (ADA) provides guidance for cutoff [...] Standards of Medical Care in Diabetes 2016, [place] [employer]. Diabetes Care. 2016.39(Suppl 1). Performed By: #### 2 43210-28, ####[facility]ATORYCLIA [id number] [place] [address] [place] Potassium [Moles/Vol] 3.7 mmol/L Normal 3.7-5.1 [facility] Comment on above: Order Comment: Johanne soto Type: BLOOD SPECIMENOrdering Facility: [facility] Address: [address] [place] [address] Performed By: #### 2 4323-8, ####[facility]ORATORYCLIA [id number] [place] [address] [place] Protein [Mass/Vol] 6.3 g/dL Normal 6.3-8.0 [facility] Comment on above: Order Comment: Speci men Type: BLOOD SPECIMENOrdering Facility: [facility] Address: [address] [place] [address] Performed By: #### 2 4323-8, ####[facility]ORATORYCLIA [id number] [address] OF [facility] Sodium [Moles/Vol] 135 mmol/L Low 136-144 [facility] Comment on above: Order Comment: Speci men Type: BLOOD SPECIMENOrdering Facility: [facility] Address: [address] [place] [address] Performed By: #### 2 4323-8, ####[facility]ORATORYCLIA [id number] [address] [place] OF [facility] Urea nitrogen [Mass/Vol] 8 mg/dL Normal 7-21 [facility] Comment on above: Order Comment: Speci men Type: BLOOD SPECIMENOrdering Facility: [facility] Address: [address] [place] [address] Performed By: #### 2 4323-8, ####[facility]ATORYCLIA [id number] [address] OF [facility] Cortis SerPl-mCncon 02-26-20 25 Cortisol [Mass/Vol] 8.4 ug/dL Normal 4.8-19.5 [facility] Comment on above: Order Comment: Speci men Type: BLOOD SPECIMENOrdering Facility: [facility] Address: [address] [place] [address] Result Comment: Prov ided reference range is from 6-10 AM sample collection time. Cortisol Reference Range: 6-10 AM = 4.8-19.5 ug/dL, 4-8 PM = 2.5-11.9 ug/dL Performed By: #### 2 143-6 ####[facility] LABCLIA [id number] [address] [place] MRI BRAIN WO IVCONon 025 MRI BRAIN WO IVCON * * *Final Report* * * DATE OF EXAM: Feb 25 2025 11:31AM [facility] 0294 - MRI BRAIN WO [...] no evidence of an acute parenchymal infarct. Occupational Therapy Assist: DELIA Transcribe Date/Time: Feb 25 2025 11:31A Dictated by : WANDA PONCE DO This examination was interpreted and the report reviewed and electronically signed by: WANDA PONCE DO on Feb 25 2025 11:37AM EST [id number] Normal [facility] Magnesium SerPl-mCncon 02-25 Magnesium [Mass/Vol] 2.1 mg/dL Normal 1.7-2.3 [facility] Comment on above: Order Comment: Speci men Type: BLOOD SPECIMENOrdering Facility: [facility] Address: [address] [place] [address] Performed By: #### 2 4323-8, 86516-8 ####[facility] LABORATORYCLIA [id number] [place] [address] [place] [facility] THERAPY NTon 02-25-2025 THERAPY NT HNO ID: [id number] Author: ROXANNE LOWERY PT Service: Physical Therapy Author Type: Physical Therapist Type: Therapy (PT/OT/Speech/Resp) Filed: 02/25/2025 15:05 Note Text: Summary: PT Discontinuation PHYSICAL THERAPY MISSED VISIT SERVICE DATE: 02/25/2025 SERVICE TIME: 1503 ROOM: [place] [address] Patient not seen due to Clinical Appropriateness (no PT needs, IND with mobility, good home support system, confirmed with primary nurse). PT order discontinued at this time. Patient and physician notified that the PT department remains available for further consultation as deemed necessary and/appropriate by the referring physician. SIGNATURE: Roxanne Lowery, PT PATIENT NAME: Casandra Henry DATE: February 25, 2025 TIME: 3:05 PM [facility] THERAPY NT HNO ID: [id number] Author: BRUNILDA CHINCHILLA, OTR/L Service: Occupational Therapy Author Type: Occupational Therapist Type: Therapy (PT/OT/Speech/Resp) Filed: 02/25/2025 14:47 Note Text: Summary: OT Eval Occupational Therapy Evaluation Summary SERVICE DATE: 02/25/2025 SERVICE TIME: 1431 to 1446 ROOM: [id number] OT 6 Clicks Score: 24 DISCHARGE RECOMMENDATIONS [...] DATE: February 25, 2025 TIME: 2:47 PM [facility] THERAPY NT HNO ID: [id number] Author: CHEMO DE ANDA CCC-CNC MACHINE SETTER Service: Speech/Swallow Author Type: Speech Language Pathologist Type: Therapy (PT/OT/Speech/Resp) Filed: 02/25/2025 10:53 Note Text: Speech Therapy Clinical Swallow Evaluation SERVICE DATE: 02/25/2025 SERVICE TIME: 1028 to 1050 ROOM: [place] [address] IMPRESSION Functional oropharyngeal phases of swallowing: without [...] Skilled Need TREATMENT INTERVENTIONS Clinical Swallow Evaluation (13135) Skilled Treatment Time (minutes): 22 TRAINING AND [...] if she eats gluten her throat tickles. CNC MACHINE SETTER does not recommend any changes to diet [...] Patient, Family, Nurse SIGNATURE: Chemo De Anda CCC-CNC MACHINE SETTER PATIENT NAME: Casandra Henry DATE: February 25, 2025 TIME: 10:53 AM Normal [facility] ALBUMIN/CREATININE RATIO, UR INEon 02-24-2025 Albumin DL <= 20 mg/L (U) [Mass/Vol] 226.4 mg/L Normal [facility] Comment on above: Order Comment: Speci men Type: URINE SPECIMENOrdering Facility: [facility] Address: [address] [place] [address] Performed By: #### U ACR, 12822-4, UUNR ####[facility] LABCLIA [id number] [place] [address] [place] Albumin/Creatinine (U) [Mass ratio] 164 mg/g High <30 [facility] Comment on above: Order Comment: Speci men Type: URINE SPECIMENOrdering Facility: [facility] Address: [address] [place] [address] Result Comment: Adul t Male and Female Nephrotic Criteria: <30 mg/g is considered normal to mildly increased 30-300 mg/g is considered moderately increased >300 mg/g is considered severely increased KDIGO. (2013). KDIGO 2012 Clinical Practice Guideline for the Evaluation and Management of Chronic Kidney Disease. Official Journal of the International Society of Nephrology, 3(1), 1-150. Performed By: #### U ACR, 62921-9, UUNR ####[facility] LABCLIA [id number] [address] [place] Creatinine (U) [Mass/Vol] 137.8 mg/dL Normal 20.0-300.0 [facility] Comment on above: Order Comment: Speci men Type: URINE SPECIMENOrdering Facility: [facility] Address: [address] [place] [address] Performed By: #### U ACR, 62973-0, UUNR ####[facility] LABCLIA [id number] [address] [place] ALLIED HEALTHon 02-24-2025 ALLIED HEALTH HNO ID: [id number] Author: ASHLEY CHASE Tech Service: Radiology Author Type: Runner Out Type: Allied Health Filed: 02/24/2025 19:03 Note [...] PATIENT PRESENTS WITH AN IMPLANTABLE OR ATTACHED CLAIMS COORDINATOR: No RADIOLOGY DEPARTMENT: Ultrasound PERIPHERAL IV DATA: Not applicable SIGNED BY: Ericka Mason February 24, 2025 7:03 PM Normal [facility] CBC W Auto Differential pane l (Bld)on 02-24-2025 Basophils (Bld) [#/Vol] 0.04 10*3/uL Normal <0.11 [facility] Comment on above: Order Comment: Speci men Type: BLOOD SPECIMENOrdering Facility: [facility] Address: [address] [place] [address] Performed By: #### 5 5454-3 ####[facility] LABCLIA [id number] [place] [address] [place]#### 52667-2 ####[facility] LABORATORYCLIA [id number] [place] [address] [place] Basophils/100 WBC (Bld) 0.5 % Normal [facility] Comment on above: Order Comment: Speci men Type: BLOOD SPECIMENOrdering Facility: [facility] Address: [address] [place] [address] Performed By: #### 5 5454-3 ####[facility] LABCLIA [id number] [place] [address] [place]#### 27595-1 ####[facility] LABORATORYCLIA [id number] [place] [address] [place] Differential cell count method Nom (Bld) Auto Normal [facility] Comment on above: Order Comment: Speci men Type: BLOOD SPECIMENOrdering Facility: [facility] Address: [address] [place] [address] Performed By: #### 5 5454-3 ####[facility] LABCLIA [id number] [place] [address] [place]#### 58891-3 ####[facility]ORATORYCLIA [id number] [place] [address] [place] Eosinophils (Bld) [#/Vol] 0.53 10*3/uL High <0.46 [facility] Comment on above: Order Comment: Speci men Type: BLOOD SPECIMENOrdering Facility: [facility] Address: [address] [place] [address] Performed By: #### 5 5454-3 ####[facility] LABCLIA [id number] [place] [address] [place]#### 24035-6 ####[facility]ORATORYCLIA [id number] [place] [address] [place] Eosinophils/100 WBC (Bld) 6.3 % Normal [facility] Comment on above: Order Comment: Speci men Type: BLOOD SPECIMENOrdering Facility: [facility] Address: [address] [place] [address] Performed By: #### 5 5454-3 ####[facility] LABCLIA [id number] [address]#### [address]2219-6 ####[facility] LABORATORYCLIA [id number] [address] [place] Erythrocyte distribution width (RBC) [Ratio] 12.0 % Normal 11.5-15.0 [facility] Comment on above: Order Comment: Speci men Type: BLOOD SPECIMENOrdering Facility: [facility] Address: [address] [place] [address] Performed By: #### 5 5454-3 ####[facility] [id number] [address] [place]#### [address]-4 ####[facility]ORATORYCLIA [id number] [address] [place] Hematocrit (Bld) [Volume fraction] 36.3 % Normal 36.0-46.0 [facility] Comment on above: Order Comment: Speci men Type: BLOOD SPECIMENOrdering Facility: [facility] [facility]OSPITAL Address: [address] [place] [address] Performed By: #### 5 5454-3 ####[facility]CLIA [id number] [address] [place]#### 34884-8 ####[facility] LABORATORYCLIA [id number] [place] [address] [place] Hemoglobin (Bld) [Mass/Vol] 12.2 g/dL Normal 11.5-15.5 [facility] Comment on above: Order Comment: Speci men Type: BLOOD SPECIMENOrdering Facility: [facility] Address: [address] [place] [address] Performed By: #### 5 5454-3 ####[facility] LAB[facility] [id number] [place] [address] [place]#### 94617-5 ####[facility] LABORATORYCLIA [id number] [place] [address] [place] Immature granulocytes (Bld) [#/Vol] 10*3/uL Normal <0.10 [facility] Comment on above: Order Comment: Speci men Type: BLOOD SPECIMENOrdering Facility: [facility] Address: [address] [place] [address] Performed By: #### 5 5454-3 ####[facility] [id number] [place] [address] [place]#### 94977-1 ####[facility] LABORATORYCLIA [id number] [address] [place] [facility] Immature granulocytes/100 WBC (Bld) 0.2 % Normal [facility] Comment on above: Order Comment: Speci men Type: BLOOD SPECIMENOrdering Facility: [facility] Address: [address] [place] [address] Performed By: #### 5 5454-3 ####[facility] LABCL[facility] [id number] [place] [address] [place]#### 83935-7 ####[facility] LABORATORYCLIA [id number] [place] [address] [place] Lymphocytes (Bld) [#/Vol] 1.83 10*3/uL Normal 1.00-4.00 [facility] Comment on above: Order Comment: Speci men Type: BLOOD SPECIMENOrdering Facility: [facility] Address: [address] [place] [address] Performed By: #### 5 5454-3 ####[facility]CL[facility] [id number] [place] [address] [place]#### 57631-8 ####[facility]ORATORYCLIA [id number] [address] [place] [facility] Lymphocytes/100 WBC (Bld) 21.6 % Normal [facility] Comment on above: Order Comment: Speci men Type: BLOOD SPECIMENOrdering Facility: [facility] Address: [address] [place] [address] Performed By: #### 5 5454-3 ####[facility] [id number] [address] [place]#### 28806-7 ####[facility]ORATORYCLIA [id number] [address] [place] MCH (RBC) [Entitic mass] 29.9 pg Normal 26.0-34.0 [facility] Comment on above: Order Comment: Speci men Type: BLOOD SPECIMENOrdering Facility: [facility] Address: [address] [place] [address] Performed By: #### 5 5454-3 ####[facility] [id number] [address]#### 15703-3 ####[facility]ORATORYCLIA [id number] [address] [place] MCHC (RBC) [Mass/Vol] 33.6 g/dL Normal 30.5-36.0 [facility] Comment on above: Order Comment: Speci men Type: BLOOD SPECIMENOrdering Facility: [facility] Address: [address] [place] [address] Performed By: #### 5 5454-3 ####[facility] [id number] [address] [place]#### 82098-8 ####[facility] LABORATORYCLIA [id number] [place] [address] [place] MCV (RBC) [Entitic vol] 89.0 fL Normal 80.0-100.0 [facility] Comment on above: Order Comment: Speci men Type: BLOOD SPECIMENOrdering Facility: [facility] Address: [address] [place] [address] Performed By: #### 5 5454-3 ####[facility] [id number] [place] [address] [place]#### 34400-0 ####[facility] LABORATORYCLIA [id number] [place] [address] [place] Monocytes (Bld) [#/Vol] 1.10 10*3/uL High <0.87 [facility] Comment on above: Order Comment: Speci men Type: BLOOD SPECIMENOrdering Facility: [facility] Address: [address] [place] [address] Performed By: #### 5 5454-3 ####[facility] [id number] [place] [address] [place]#### 11053-4 ####[facility] LABORATORYCLIA [id number] [address] [place] Monocytes/100 WBC (Bld) 13.0 % Normal [facility] Comment on above: Order Comment: Speci men Type: BLOOD SPECIMENOrdering Facility: [facility] Address: [address] [place] [address] Performed By: #### 5 5454-3 ####[facility] [id number] [place] [address] [place]#### 65699-9 ####[facility]ORATORYCLIA [id number] [place] [address] [place] Neutrophils (Bld) [#/Vol] 4.94 10*3/uL Normal 1.45-7.50 [facility] Comment on above: Order Comment: Speci men Type: BLOOD SPECIMENOrdering Facility: [facility] Address: [address] [place] [address] Performed By: #### 5 5454-3 ####[facility] [id number] [place] [address] [place]#### 38999-7 ####[facility] LABORATORYCLIA [id number] [place], [place] [address] [place] [address] [place] Neutrophils/100 WBC (Bld) 58.4 % Normal [facility] Comment on above: Order Comment: Speci men Type: BLOOD SPECIMENOrdering Facility: [facility] Address: [address] [place] [address] Performed By: #### 5 5454-3 ####[facility]CLIA [id number] [place] [address] [place]#### 59658-2 ####[facility] LABORATORYCLIA [id number] [place] [address] [place] Nucleated RBC (Bld) [#/Vol] 10*3/uL Normal <0.01 [facility] Comment on above: Order Comment: Speci men Type: BLOOD SPECIMENOrdering Facility: [facility] Address: [address] [place] [address] Performed By: #### 5 5454-3 ####[facility]CL[facility] [id number] [place] [address] [place]#### 59291-0 ####[facility] LABORATORYCLIA [id number] [address] [place] Nucleated RBC/100 WBC (Bld) [Ratio] 0.0 /100 WBC Normal [facility] Comment on above: Order Comment: Speci men Type: BLOOD SPECIMENOrdering Facility: [facility] Address: [facility] [place] [address] Performed By: #### 5 5454-3 ####[facility] [id number] [place] [address] [place]#### 02069-0 ####[facility] LABORATORYCLIA [id number] [address] [place] Platelet mean volume (Bld) [Entitic vol] 9.1 fL Normal 9.0-12.7 [facility] Comment on above: Order Comment: Speci men Type: BLOOD SPECIMENOrdering Facility: [facility] Address: [address] [place] [address] Performed By: #### 5 5454-3 ####[facility] [id number] [address]#### 00966-2 ####[facility]ORATORYCLIA [id number] [address] Platelets (Bld) [#/Vol] 282 10*3/uL Normal 150-400 [facility] Comment on above: Order Comment: Speci men Type: BLOOD SPECIMENOrdering Facility: [facility] Address: [address] [place] [address] Performed By: #### 5 5454-3 ####[facility] [id number] [address] [place]#### 23982-2 ####[facility]ORATORYCLIA [id number] [address] [place] RBC (Bld) [#/Vol] 4.08 10*6/uL Normal 3.90-5.20 [facility] Comment on above: Order Comment: Speci men Type: BLOOD SPECIMENOrdering Facility: [facility] Address: [address] [place] [address] Performed By: #### 5 5454-3 ####[facility] [id number] [address]#### 61597-6 ####[facility] LABORATORYCLIA [id number] [address] [place] WBC (Bld) [#/Vol] 8.46 10*3/uL Normal 3.70-11.00 [facility] Comment on above: Order Comment: Speci men Type: BLOOD SPECIMENOrdering Facility: [facility] Address: [address] [place] [address] Performed By: #### 5 5454-3 ####[facility]CL[facility] [id number] ELIZA HERMOSILLO [address] [address] [facility] [place]#### 76770-5 ####[facility]ANET LABORATORYCLIA [id number] [place] [address] [facility] [place] CT BRAIN WO IVCONon 02-25-20 CT BRAIN WO IVCON * * *Final Report* * * DATE OF EXAM: Feb 24 2025 5:21PM [facility] 0504 - CT BRAIN WO [...] base and imaged soft tissues are unremarkable. Commercial Finance Manager (topogram) images: No additional findings. IMPRESSION: No acute intracranial process. _ Occupational Therapy Assist: DELIA Transcribe Date/Time: Feb 24 2025 7:42P Dictated by : PRACHI FELIX MD This examination was interpreted and the report reviewed and electronically signed by: PRACHI FELIX MD on Feb 24 2025 7:44PM EST [id number] Normal [facility] Comprehensive metabolic 2000 panelon 02-24-2025 Albumin [Mass/Vol] 3.9 g/dL Normal 3.9-4.9 [facility] Comment on above: Order Comment: Speci men Type: BLOOD SPECIMENOrdering Facility: [facility] Address: [address] [place] [address] Performed By: #### 2 4323-8, 32202-0, TSHRF, 37999-2, 16393-8 ####[facility] LABORATORYCLIA [id number] [place] [id number] [place] ALP [Catalytic activity/Vol] 130 U/L High 34-123 [facility] Comment on above: Order Comment: Speci men Type: BLOOD SPECIMENOrdering Facility: [facility] Address: [address] [place] [address] Performed By: #### 2 4323-8, 25775-0, TSHRF, 76277-0, 53962-3 ####[facility] LABORATORYCLIA [id number] [place] [address] [place] ALT [Catalytic activity/Vol] 13 U/L Normal 7-38 [facility] Comment on above: Order Comment: Speci men Type: BLOOD SPECIMENOrdering Facility: [facility] Address: [address] [place] [address] Performed By: #### 2 4323-8, 77148-2, TSHRF, 92405-8, 08723-4 ####[facility]ORATORYCLIA [id number] [place] [id number] [place] Anion gap [Moles/Vol] 13 mmol/L Normal 8-15 [facility] Comment on above: Order Comment: Speci men Type: BLOOD SPECIMENOrdering Facility: [facility] Address: [address] [place] [address] Performed By: #### 2 4323-8, 78600-4, TSHRF, 51932-2, 40506-2 ####[facility]ORATORYCLIA [id number] [place] [id number] [place] AST [Catalytic activity/Vol] Normal [facility] Comment on above: Order Comment: Speci men Type: BLOOD SPECIMENOrdering Facility: [facility] Address: [address] [place] [address] Result Comment: Unab le to assay due to interference from hemolysis. Suggest reorder as clinically indicated. Performed By: #### 2 4323-8, 99527-2, TSHRF, 15812-5, 32826-3 ####[facility]ORATORYCLIA [id number] [place] [address] [place] Bilirubin [Mass/Vol] 1.4 mg/dL High 0.2-1.3 [facility] Comment on above: Order Comment: Speci men Type: BLOOD SPECIMENOrdering Facility: [facility] Address: [address] [place] [address] Performed By: #### 2 4323-8, 24312-6, TSHRF, 11578-2, 43120-2 ####[facility] LABORATORYCLIA [id number] [place] [address] [place] Calcium [Mass/Vol] 8.8 mg/dL Normal 8.5-10.2 [facility] Comment on above: Order Comment: Speci men Type: BLOOD SPECIMENOrdering Facility: [facility] Address: [address] [place] [address] Performed By: #### 2 4323-8, 57655-9, TSHRF, 05682-1, ####[facility]ORATORYCLIA [id number] [place] [address] [place] Chloride [Moles/Vol] 96 mmol/L Low 98-107 [facility] Comment on above: Order Comment: Speci men Type: BLOOD SPECIMENOrdering Facility: [facility] Address: [address] [place] [address] Performed By: #### 2 4323-8, 91189-5, TSHRF, 73740-9, 95470-3 ####[facility] LABORATORYCLIA [id number] [place] [address] [place] CO2 [Moles/Vol] 21 mmol/L Low 22-30 [facility] Comment on above: Order Comment: Speci men Type: BLOOD SPECIMENOrdering Facility: [facility] Address: [address] [place] [address] Performed By: #### 2 4323-8, 45117-4, [facility], 21010-8, ####[facility] LABORATORYCLIA [id number] [place] [address] [place] Creatinine [Mass/Vol] 0.71 mg/dL Normal 0.58-0.96 [facility] Comment on above: Order Comment: Johanne men Type: BLOOD SPECIMENOrdering Facility: [facility] Address: [address] [place] [address] Performed By: #### 2 4323-8, 02624-2, [facility], 47101-6, ####[facility] LABORATORYCLIA [id number] [address] [place] [facility] Creatinine and Glomerular filtration rate.predicted panel (S/P/Bld) 85 mL/min/1.73m??? Normal >=60 [facility] Comment on above: Order Comment: [facility] Type: BLOOD SPECIMENOrdering Facility: [facility] Address: [address] [place] [address] Result Comment: Hina mated Glomerular Filtration Rate [...] actual GFR. Performed By: #### 2 4323-8, 88800-8, [facility], 62230-3, ####[facility] LABORATORYCLIA [id number] [place] [address] [place] Glucose [Mass/Vol] 104 mg/dL High 74-99 [facility] Comment on above: Order Comment: Johanne soto Type: BLOOD SPECIMENOrdering Facility: [facility] Address: [address] [place] [address] Result Comment: The [place] Diabetes Association (ADA) provides guidance for cutoff [...] Standards of Medical Care in Diabetes 2016, [place] Diabetes Association. Diabetes Care. 2016.39(Suppl 1). Performed By: #### 2 4323-8, 33276-5, TSHRF, 58057-9, 41383-5 ####[facility] LABORATORYCLIA [id number] [place] [address] [place] Potassium [Moles/Vol] 4.3 mmol/L Normal 3.7-5.1 [facility] Comment on above: Order Comment: Johanne soto Type: BLOOD SPECIMENOrdering Facility: [facility] Address: [address] [place] [address] Performed By: #### 2 4323-8, 47155-6, TSHRF, 97421-8, ####[facility] LABORATORYCLIA [id number] [place] [address] [place] Protein [Mass/Vol] 6.5 g/dL Normal 6.3-8.0 [facility] Comment on above: Order Comment: Johanne soto Type: BLOOD SPECIMENOrdering Facility: [facility] Address: [address] [place] [id number] Performed By: #### 2 4323-8, 11701-9, TSHRF, 09906-2, 90074-8 ####[facility] LABORATORYCLIA [id number] [place] [id number] [place] Sodium [Moles/Vol] 130 mmol/L Low 136-144 [facility] Comment on above: Order Comment: Johanne soto Type: BLOOD SPECIMENOrdering Facility: [facility] Address: [address] [place] [address] Performed By: #### 2 4323-8, 79770-9, TSHRF, 04531-6, 43104-3 ####[facility] LABORATORYCLIA [id number] [place] [address] [facility] Urea nitrogen [Mass/Vol] 6 mg/dL Low 03-12 [facility] Comment on above: Order Comment: Speci men Type: BLOOD SPECIMENOrdering Facility: [facility] Address: [address] [place] [address] [place] [address] Performed By: #### 2 4323-8, 02198-2, [facility], 72473-2, 41972-4 ####[facility] LABORATORYCLIA [id number] [place] [address] [facility] ED NOTEon 02-24-2025 ED NOTE HNO ID: [id number] Author: HALEY BAUTISTA RN Service: ? Author Type: Registered Nurse Type: ED Notes Filed: 02/24/2025 16:56 Note Text: Called up and spoke to charge nurse elver farris Rn. And [facility] jen will call back. Normal [facility] ED NOTE HNO ID: [id number] Author: HALEY BAUTISTA RN Service: ? Author Type: Registered Nurse Type: ED Notes Filed: 02/24/2025 16:00 Note Text: Pt amb to rr , does feel lightheaded, not her norm.but no headache, no blurry vision. [facility] ED PROV NOTEon 02-24-2025 ED PROV NOTE HNO ID: [id number] Author: KEITH HART MD Service: ? Author [...] up to 200. She was seen in [place]'s emergency department 2 days ago. Had blood [...] WHEN PFRMD 12/05/[address] [facility] FLX W/REMOVAL LESION BY HOT [...] requesting repeat blood work. I did review [place] emergency department stay. They did a chest [...] of t (more content not included)... Normal [facility] EKGon 02-24-2025 Electrocardiogram Ventricular Rate : 6 2 BPM Atrial Rate : 62 BPM P-R Interval : 176 ms QRS Duration : 80 ms Q-T Interval : 438 ms QTC Calculation(Bazett) : 444 ms Calculated P [place] : 54 degrees Calculated R [place] : 9 degrees Calculated T [place] : 43 degrees NORMAL SINUS RHYTHM NORMAL ECG No Stemi Confirmed by KEITH HART MD ([id number]) on 02/24/2025 12:57:54 PM NAME : CASANDRA HENRY PID : [id number] : 1940 Gender : Female Race : ORD : Procedure Date : Feb 24 2025 12:53:40 Edit Date : Feb 24 2025 12:57:58 Diagnosis: NORMAL SINUS RHYTHM NORMAL ECG No Stemi Confirmed by KEITH HART MD ([id number]) on 02/24/2025 12:57:54 PM Test Reason : Location : 1 : ER ED Overread By : KEITH HART MD Edited By : KEITH HART MD Referred By : , Acquired by : Elaine alexander [facility] HISTORY PHYSICALon HISTORY PHYSICAL HNO ID: [id number] Author: JEREMIAH DEL ROSARIO MD Service: Hospital Medicine Author Type: Physician Type: H&P Filed: 02/24/2025 20:36 Note Text: DEPARTMENT OF HOSPITAL MEDICINE HISTORY AND PHYSICAL EXAM SERVICE DATE: 02/24/2025 Code Status: Not on file SERVICE TIME: 4:34 PM Primary Care Physician: Sreekanth Cortez DO NIGHT AND WEEKEND COVERAGE: [facility] COVERAGE: Days: [phone], please page attending physician. Nights: 6264-3989, please page [facility] Night coverage pager [phone]. Subjective CHIEF COMPLAINT: Dizziness, High BP HPI: [...] WHEN PFRMD 12/05/[address] [facility] FLX W/REMOVAL LESION BY HOT BX FORCEPS 02/19/[address] Catarino Salas LAPAROSCOPIC DUODENAL BIOPSY 02/13/2020 Catarion Salas MD; duodenal biopsy, gastric antrum biopsy, [...] of distention (more content not included)... Normal [facility] HbA1c (Bld)on 02-24-2025 Average glucose Estimated from glycated hemoglobin (Bld) [Mass/Vol] 108 mg/dL Normal [facility] Comment on above: Order Comment: Speci men Type: BLOOD SPECIMENOrdering Facility: [facility] Address: [address] [place] [address] Result Comment: eAG: (Estimated average glucose) is a calculated value from HgbA1c and is surgical sales representative of the average blood glucose level in the last 2-3 month period. Performed By: #### 5 5454-3 ####[facility] LABCLIA [id number] [address]#### 07698-1 ####[facility] LABORATORYCLIA [id number] [address] STATES OF [facility] HbA1c (Bld) [Mass fraction] 5.4 % Normal 4.3-5.6 [facility] Comment on above: Order Comment: Speci men Type: BLOOD SPECIMENOrdering Facility: [facility] Address: [address] [place] [address] Result Comment: Amer [place] Diabetes Association guidelines indicate that patients with HgbA1c in the range 5.7-6.4% are at increased risk for development of diabetes, and intervention by lifestyle modification may be beneficial. HgbA1c greater or equal to 6.5% is considered diagnostic of diabetes. Performed By: #### 5 5454-3 ####[facility] LABCLIA [id number] [address] [place]#### 67288-4 ####[facility] LABORATORYCLIA [id number] [address] Lipid 1996 panelon 5 Cholesterol [Mass/Vol] 171 mg/dL Normal <200 [facility] Comment on above: Order Comment: Speci men Type: BLOOD SPECIMENOrdering Facility: [facility] Address: [address] [place] [address] Result Comment: <200 mg/dL, Desirable 200-239 mg/dL, Borderline high >239 mg/dL, High Performed By: #### 2 4323-8, 34845-5, TSHRF, 93133-3, 16627-7 ####[facility] LABORATORYCLIA [id number] [address] Cholesterol in HDL [Mass/Vol] 62 mg/dL Normal >39 [facility] Comment on above: Order Comment: Johanne charles Type: BLOOD SPECIMENOrdering Facility: [facility] Address: [address] [place] [address] Result Comment: 40-5 9 mg/dL, Acceptable >59 mg/dL, High: Negative risk factor for coronary heart disease <40 mg/dL, Low: Positive risk factor for coronary heart disease Performed By: #### 2 4323-8, 37697-2, TSHRF, 30927-4, ####[facility] LABORATORYCLIA [id number] [address] Cholesterol in LDL [Mass/Vol] 84 mg/dL Normal <100 [facility] Comment on above: Order Comment: Sheilai charles Type: BLOOD SPECIMENOrdering Facility: [facility] Address: [address] [place] [address] Result Comment: <100 mg/dL, Optimal 100-129 mg/dL, Near optimal/above optimal 130-159 mg/dL, Borderline high 160-189 mg/dL, High >189 mg/dL, Very high Secondary prevention optimal LDL Cholesterol levels are recommended to be <70 mg/dL LDL cholesterol is calculated using the Wolff-NIH equation. Performed By: #### 2 4323-8, 93855-2, TSHRF, 84063-0, 78531-6 ####[facility] LABORATORYCLIA [id number] [address] Cholesterol in LDL/Cholesterol in HDL [Mass ratio] 1.35 {ratio} Normal <2.54 [facility] Comment on above: Order Comment: Johanne soto Type: BLOOD SPECIMENOrdering Facility: [facility] Address: [address] [place] [address] Result Comment: Abdon pappas: 1. National Cholesterol Education Program ATP III Guideline At-A-Glance Quick Desk Reference: National Heart, Lung, and Blood [place]. National Institutes of Health. 2001: NIH Publication No. 01-3305. 2. An International Atherosclerosis Society position paper: global recommendations for the management of dyslipidemia: executive summary, Atherosclerosis. 2014: 232(2):410-413. Performed By: #### 2 4323-8, 93799-6, TSH, 99552-1, ####[facility] LABORATORYCLIA [id number] [address] Cholesterol in VLDL [Mass/Vol] 22 mg/dL Normal <30 [facility] Comment on above: Order Comment: Sheilamarcie soto Type: BLOOD SPECIMENOrdering Facility: [facility] Address: [address] [place] [address] Performed By: #### 2 4323-8, 28609-3, TSH, 25665-7, ####[facility] LABORATORYCLIA [id number] [address] Cholesterol non HDL [Mass/Vol] 109 mg/dL Normal <130 [facility] Comment on above: Order Comment: Johanne soto Type: BLOOD SPECIMENOrdering Facility: [facility] Address: [address] [place] [address] Result Comment: <130 mg/dL, Optimal 130-159 mg/dL, Near optimal/above optimal 160-189 mg/dL, Borderline high 190-219 mg/dL, High >219 mg/dL, Very high Secondary prevention optimal non HDL Cholesterol levels are recommended to be <100 mg/dL Performed By: #### 2 4323-8, 84879-0, TSHRF, 54601-4, 08731-3 ####[facility] LABORATORYCLIA [id number] [address] Cholesterol.total/Choles terol in HDL [Mass ratio] 2.76 {ratio} Normal <5.10 [facility] Comment on above: Order Comment: Speci men Type: BLOOD SPECIMENOrdering Facility: [facility] Address: [address] [place] [address] Performed By: #### 2 4323-8, 35935-0, TSHRF, 18177-5, ####[facility] LABORATORYCLIA [id number] [place] [address] [place] FASTING TIME Normal [facility] Comment on above: Order Comment: Speci men Type: BLOOD SPECIMENOrdering Facility: [facility] Address: [address] [place] [address] Result Comment: Unkn own Performed By: #### 2 4323-8, 55038-5, TSHRF, 09639-7, ####S[facility] LABORATORYCLIA [id number] [address] [place] Triglyceride [Mass/Vol] 144 mg/dL Normal <150 [facility] Comment on above: Order Comment: Speci men Type: BLOOD SPECIMENOrdering Facility: [facility] Address: [address] [place] [address] Result Comment: <150 mg/dL, Normal 150-199 mg/dL, Borderline high 200-499 mg/dL, High >499 mg/dL, Very high Performed By: #### 2 4323-8, 45033-5, TSHRF, 89283-4, ####[facility] LABORATORYCLIA [id number] [address] [place] Magnesium SerPl-mCncon 02-24 Magnesium [Mass/Vol] 2.1 mg/dL Normal 1.7-2.3 [facility] Comment on above: Order Comment: Speci men Type: BLOOD SPECIMENOrdering Facility: [facility] Address: [address] [place] [address] Performed By: #### 2 4323-8, 72630-9, TSHRF, 34728-5, 13249-9 ####[facility] LABORATORYCLIA [id number] [place] [address] [place] NT-proBNP SerPl-mCncon 02-24 Natriuretic peptide.B prohormone N-Terminal [Mass/Vol] 386 pg/mL Normal <450 [facility] Comment on above: Order Comment: Speci men Type: BLOOD SPECIMENOrdering Facility: [facility] Address: [address] [place] [address] Performed By: #### 2 4323-8, 70059-6, TSHRF, 27684-1, 80823-5 ####[facility]ORATORYCLIA [id number] [place] [address] [place] Osmolality Uron 02-24-2025 Osmolality (U) [Osmolality] 375 mosm/kg Normal 50-1200 [facility] Comment on above: Order Comment: Speci men Type: URINE SPECIMENOrdering Facility: [facility] Address: [address] [place] [address] Performed By: #### 2 695-5 ####[facility] LABCLIA [id number] [place] [address] [place] Sodium ?Tm Ur-sCncon 025 Sodium Unsp time (U) [Moles/Vol] 77 mmol/L Normal 14-216 [facility] Comment on above: Order Comment: Speci men Type: URINE SPECIMEN [facility] Address: [address] [place] [address] Performed By: #### U ACR, 62279-5, UUNR #### [facility] CLIA [id number] [address] [place], [place] [address] [place] TSH W/REFLEX FT4on 5 TSH Qn 1.520 m[IU]/L Normal 0.270-4.200 [facility] Comment on above: Order Comment: Speci men Type: BLOOD SPECIMENOrdering Facility: [facility] Address: [address] [place] [address] Performed By: #### 2 4323-8, 98925-9, TSHRF, 11703-7, 58845-6 ####[facility] LABORATORYCLIA [id number] [place] [address] [place] UREA NITROGEN, RANDOM URINEo n 02-24-2025 UREA NITROGEN,UR,RAN 217 mg/dL Normal 140-1500 [facility] Comment on above: Order Comment: Speci men Type: URINE SPECIMEN [facility] Address: [address] [place] [address] Performed By: #### U ACR, 10917-6, UUNR #### [facility] CLIA [id number] [address] [place] [address] [place] [address] [place] US KIDNEY/BLADDERon 02-25-20 25 US KIDNEY/BLADDER * * *Final Report* * * DATE OF EXAM: Feb 24 2025 7:03PM MAUREEN 1055 - US KIDNEY/BLADDER / PROCEDURE REASON: [...] Bilateral renal cysts with no hydronephrosis seen. Occupational Therapy Assist: DELIA Transcribe Date/Time: Feb 24 2025 9:01P Dictated by : LINDA COURTNEY MD This examination was interpreted and the report reviewed and electronically signed by: LINDA COURTNEY MD on Feb 24 2025 9:03PM EST [id number] Normal [facility] Urinalysis complete panel (U )on 02-24-2025 Bilirubin Ql (U) Negative Normal Negative [facility] Comment on above: Order Comment: Speci men Type: URINE SPECIMENOrdering Facility: [facility] Address: [address] [place] [address] Performed By: #### 2 4356-8 ####[facility] LABORATORYCLIA [id number] [place] [address] [place] Clarity (Unsp spec) Slightly Cloudy Abnormal Clear [facility] Comment on above: Order Comment: Speci men Type: URINE SPECIMENOrdering Facility: [facility] Address: [address] [place] [address] Performed By: #### 2 4356-8 ####S[facility] LABORATORYCLIA [id number] [address] [place] Color (U) Yellow Normal Yellow [facility] Comment on above: Order Comment: Speci men Type: URINE SPECIMENOrdering Facility: [facility] Address: [address] [place] [address] Performed By: #### 2 4356-8 ####S[facility] LABORATORYCLIA [id number] [address] [place] Epithelial cells LM.HPF (Urine sed) [#/Area] Few Normal [facility] Comment on above: Order Comment: Speci men Type: URINE SPECIMENOrdering Facility: [facility] Address: [address] [place] [address] Performed By: #### 2 4356-8 ####S[facility] LABORATORYCLIA [id number] [place] [address] [place] Glucose Test strip (U) [Mass/Vol] Negative Normal Negative [facility] Comment on above: Order Comment: Speci men Type: URINE SPECIMENOrdering Facility: [facility] Address: [address] [place] [address] Performed By: #### 2 4356-8 ####S[facility] LABORATORYCLIA [id number] [place] [address] [place] Hemoglobin Ql (U) Negative Normal Negative [facility] Comment on above: Order Comment: Speci men Type: URINE SPECIMENOrdering Facility: [facility] Address: [address] [place] [address] Performed By: #### 2 4356-8 ####[facility] LABORATORYCLIA [id number] [place] [address] [place] Ketones Ql (U) Negative Normal Negative [facility] Comment on above: Order Comment: Speci men Type: URINE SPECIMENOrdering Facility: [facility] Address: [address] [place] [address] Performed By: #### 2 4356-8 ####S[facility] LABORATORYCLIA [id number] [place] [address] [place] Leukocyte esterase Test strip Ql (U) Trace Abnormal Negative [facility] Comment on above: Order Comment: Speci men Type: URINE SPECIMENOrdering Facility: [facility] Address: [address] [place] [address] Performed By: #### 2 4356-8 ####S[facility] LABORATORYCLIA [id number] [place] [address] [place] Nitrite Ql (U) Negative Normal Negative [facility] Comment on above: Order Comment: Speci men Type: URINE SPECIMENOrdering Facility: [facility] Address: [address] [place] [address] Performed By: #### 2 4356-8 ####[facility] LABORATORYCLIA [id number] [place] [address] [place] pH (U) 7.5 [pH] Normal 5.0-8.0 [facility] Comment on above: Order Comment: Speci men Type: URINE SPECIMENOrdering Facility: [facility] Address: [address] [place] [address] Performed By: #### 2 4356-8 ####[facility] LABORATORYCLIA [id number] [place] [address] [place] Protein (U) [Mass/Vol] Negative Normal Negative [facility] Comment on above: Order Comment: Speci men Type: URINE SPECIMENOrdering Facility: [facility] Address: [address] [place] [address] Performed By: #### 2 4356-8 ####[facility] LABORATORYCLIA [id number] [address] RBC LM.HPF (Urine sed) [#/Area] 0-3 /HPF Normal 0-3 /HPF [facility] Comment on above: Order Comment: Speci men Type: URINE SPECIMENOrdering Facility: [facility] Address: [address] [place] [address] Performed By: #### 2 4356-8 ####[facility] LABORATORYCLIA [id number] [address] Specific gravity (U) [Rel density] <=1.005 Low 1.005-1.030 [facility] Comment on above: Order Comment: Speci men Type: URINE SPECIMENOrdering Facility: [facility] Address: [address] [place] [address] Performed By: #### 2 4356-8 ####S[facility] LABORATORYCLIA [id number] [address] Urobilinogen Ql (U) 0.2 EU/dL Normal 0.2-1.0 EU/dL [facility] Comment on above: Order Comment: Speci men Type: URINE SPECIMENOrdering Facility: [facility] Address: [address] [place] [address] Performed By: #### 2 4356-8 ####S[facility] LABORATORYCLIA [id number] [address] WBC LM.HPF (Urine sed) [#/Area] 0-5 /HPF Normal 0-5 /HPF [facility] Comment on above: Order Comment: Speci men Type: URINE SPECIMENOrdering Facility: [facility] Address: [address] [place] [address] Performed By: #### 2 4356-8 ####[facility] LABORATORYCLIA [id number] [address] [place] 12 Lead EKGon 02-22-2025 12 Lead EKG [facility] Services [address] [place] [address] 12 Lead EKG 02/22/25 0708 MR#: [id number] Acct: [id number] Name: CASANDRA HENRY Rep #: [id number] : 1940 84 From: Sidney Lewis MD [...] T wave abnormality Abnormal ECG Confirmed by SIDNEY LEWIS MD ([id number]), editor map CHYNA RUIZ ([id number]) on 02/26/2025 10:25:55 AM Referred By: Confirmed By: SIDNEY LEWIS MD 02/26/25 1025 Date Sidney Lewis MD CC: Dr. Devaughn Farmer DO; Dr. Sreekanth Cortez DO Signed Normal [facility] Absolute lymphocyte countOrd ered By: Devaughn Farmer on 02-22-2025 Lymphocytes Auto (Unsp spec) [#/Vol] 1.86 10*3/uL 0.83-4.51 [facility] Absolute neutrophil countOrd ered By: Devaughn Farmer on 02-22-2025 Neutrophils (Bld) [#/Vol] 5.1 10*3/uL 2.0-7.7 [facility] Anion gap in Serum or Plasma Ordered By: Devaughn Farmer on 02-22-2025 Anion gap [Moles/Vol] 12 mmol/L 5-15 [facility] Automated lymphocyte count a s percentage of total leukocytesOrdered By: Devaughn Farmer on 02-22-2025 Lymphocytes/100 WBC Auto (Unsp spec) 21.6 % 19-41 [facility] BUN/creatinine ratioOrdered By: Devaughn Farmer on 02-22-2025 Urea nitrogen/Creatinine [Mass ratio] 9.8 mg/mg Low 10-20 [facility] Basic Metabolic Profile (BMP )on 02-22-2025 BUN/CRE 9.8 RATIO Low 10- [facility] Comment on above: Performed By: #### L 100.0100, L500.2500, L503.7505, L501.4021 #### [facility] [address] [place], [address] Calcium [Mass/Vol] 9.0 mg/dL Normal 7.6-11.0 [facility] Comment on above: Performed By: #### L 100.0100, L500.2500, L503.7505, L501.4021 #### [facility] [address] [place], [address] Chloride [Moles/Vol] 100 mmol/L Normal 98-108 [facility] Comment on above: Performed By: #### L 100.0100, L500.2500, L503.7505, L501.4021 #### [facility] [address] [place], [address] CO2 [Moles/Vol] 22.8 mmol/L Normal 21.0-32.0 [facility] Comment on above: Performed By: #### L 100.0100, L500.2500, L503.7505, L501.4021 #### [facility] [address] [place], [address] Creatinine [Mass/Vol] 0.78 mg/dL Normal 0.70-1.20 [facility] Comment on above: Performed By: #### L 100.0100, L500.2500, L503.7505, L501.4021 #### [facility] [address] [place], [address] ECRCL 46.32 ml/min Low 50-250 [facility] Comment on above: Performed By: #### L 100.0100, L500.2500, L503.7505, L501.4021 #### [facility] [address] [place], [address] GAP 12 Normal 5-15 [facility] Comment on above: Performed By: #### L 100.0100, L500.2500, L503.7505, L501.4021 #### [facility] [address] [place], [address] GFR/1.73 sq M.predicted among non-blacks MDRD (S/P/Bld) [Vol rate/Area] 76 mL/min/{1.73_m2} Normal >60 [facility] Comment on above: Result Comment: mL/m in/1.73m2 CKD-EPI Creatinine Equation (2020) Performed By: #### L 100.0100, L500.2500, L503.7505, L501.4021 #### [facility] [address] [place], [address] Glucose [Mass/Vol] 114 mg/dL High 70-99 [facility] Comment on above: Performed By: #### L 100.0100, L500.2500, L503.7505, L501.4021 #### [facility] [address] [place], [address] Potassium [Moles/Vol] 4.0 mmol/L Normal 3.3-5.1 [facility] Comment on above: Performed By: #### L 100.0100, L500.2500, L503.7505, L501.4021 #### [facility] [address] [place], [address] Sodium [Moles/Vol] 134 mmol/L Normal 133-145 [facility] Comment on above: Performed By: #### L 100.0100, L500.2500, L503.7505, L501.4021 #### [facility] [address] [place], [address] Urea nitrogen [Mass/Vol] 8 mg/dL Normal 4-19 [facility] Comment on above: Performed By: #### L 100.0100, L500.2500, L503.7505, L501.4021 #### [facility] [address] [place], [address] Basophil percentageOrdered B y: Devaughn Farmer on 02-22-2025 Basophils/100 WBC (Bld) 0.5 % 0-1 [facility] Brain/Head without Contrasto n 02-22-2025 Brain/Head without Contrast [facility] Imaging Services [address] [place] [address] Brain/Head without Contrast MR#: [id number] Acct: [id number] Name: CASANDRA HENRY Rep #: [id number] : 1940 F 84 From: Pasquale Mendoza MD PCP: Dr. Sreekanth Cortez, Status: REG ER Study: Brain/Head without Contrast Date of Exam: 11/14 Exam# [id number] Ordering Dr: Devaughn Farmer DO EXAM: NONCONTRAST [...] Devaughn Farmer, DO; Dr. Sreekanth Cortez, DO Occupational Therapy Assist: Signed Normal [facility] CBC W/Diff, Automatedon 07-0 -2024 Absolute Lymph 1.86 X10 3/uL Normal 0.83-4.51 [facility] Comment on above: Performed By: #### L 100.0100, L500.2500, L503.7505, L501.4021 #### [facility] [address] [place], [address] Absolute Neut 5.1 X10 3/uL Normal 2.0-7.7 [facility] Comment on above: Performed By: #### L 100.0100, L500.2500, L503.7505, L501.4021 #### [facility] [address] [place], [address] Basophils/100 WBC (Bld) 0.5 % Normal 0-1 [facility] Comment on above: Performed By: #### L 100.0100, L500.2500, L503.7505, L501.4021 #### [facility] [address] [place], [address] Eosinophils/100 WBC (Bld) 7.3 % High 0-5 [facility] Comment on above: Performed By: #### L 100.0100, L500.2500, L503.7505, L501.4021 #### [facility] [address] [place], [address] Erythrocyte distribution width (RBC) [Ratio] 12.1 % Normal 11.6-14.6 [facility] Comment on above: Performed By: #### L 100.0100, L500.2500, L503.7505, L501.4021 #### [facility] [address] [place], [address] Hematocrit (Bld) [Volume fraction] 36.6 % Low 37-47 [facility] Comment on above: Performed By: #### L 100.0100, L500.2500, L503.7505, L501.4021 #### [facility] [address] [place], [address] Hemoglobin (Bld) [Mass/Vol] 12.6 g/dL Normal 12.0-15.0 [facility] Comment on above: Performed By: #### L 100.0100, L500.2500, L503.7505, L501.4021 #### [facility] [address] [place], [address] IG% 0.500 Normal 0.0-0.9 [facility] Comment on above: Result Comment: IG% - Immature Granulocytes (promyelocytes, myelocytes and metamyelocytes) > 1% indicates that a LEFT SHIFT is Present. Performed By: #### L 100.0100, L500.2500, L503.7505, L501.4021 #### [facility] [address] [place], [address] Lymphocytes/100 WBC (Bld) 21.6 % Normal 19-41 [facility] Comment on above: Performed By: #### L 100.0100, L500.2500, L503.7505, L501.4021 #### [facility] [address] [place], [address] MCH (RBC) [Entitic mass] 30.4 pg Normal 27.0-32.0 [facility] Comment on above: Performed By: #### L 100.0100, L500.2500, L503.7505, L501.4021 #### [facility] [address] [place], [address] MCHC (RBC) [Mass/Vol] 34.4 g/dL Normal 32-36 [facility] Comment on above: Performed By: #### L 100.0100, L500.2500, L503.7505, L501.4021 #### [facility] [address] [place], [address] MCV (RBC) [Entitic vol] 88.4 fL Normal 81-99 [facility] Comment on above: Performed By: #### L 100.0100, L500.2500, L503.7505, L501.4021 #### [facility] [address] [place], [address] Monocytes/100 WBC (Bld) 11.4 % High 0-10 [facility] Comment on above: Performed By: #### L 100.0100, L500.2500, L503.7505, L501.4021 #### [facility] [address] [place], [address] Neutrophils/100 WBC (Bld) 58.7 % Normal 47-70 [facility] Comment on above: Performed By: #### L 100.0100, L500.2500, L503.7505, L501.4021 #### [facility] [address] [place], [address] Nucleated RBC (Bld) [#/Vol] 0 10*3/uL Normal 0-5 [facility] Comment on above: Performed By: #### L 100.0100, L500.2500, L503.7505, L501.4021 #### [facility] [address] [place], [address] Platelet mean volume (Bld) [Entitic vol] 9.4 fL Normal 6.2-12.0 [facility] Comment on above: Performed By: #### L 100.0100, L500.2500, L503.7505, L501.4021 #### [facility] [address] [place], [address] Platelets (Bld) [#/Vol] 285 10*3/uL Normal 150-450 [facility] Comment on above: Performed By: #### L 100.0100, L500.2500, L503.7505, L501.4021 #### [facility] [address] [place], [address] RBC (Bld) [#/Vol] 4.14 10*6/uL Low 4.2-5.4 [facility] Comment on above: Performed By: #### L 100.0100, L500.2500, L503.7505, L501.4021 #### [facility] [address] [place], [address] RDW SD 39.2 fl Normal 35.1-43.9 [facility] Comment on above: Performed By: #### L 100.0100, L500.2500, L503.7505, L501.4021 #### [facility] [address] [place], [address] WBC (Bld) [#/Vol] 8.6 10*3/uL Normal 4.4-11.0 [facility] Comment on above: Performed By: #### L 100.0100, L500.2500, L503.7505, L501.4021 #### [facility] [address] [place], [address] Carbon dioxide, total [Moles /volume] in Central venous bloodOrdered By: Devaughn Farmer on 02-22-2025 CO2 [Moles/Vol] 22.8 mmol/L 21.0-32.0 [facility] Chest PA and Lateralon 02-22 Chest PA and Lateral [facility] Imaging Services [address] [place] [address] Chest PA and Lateral MR#: [id number] Acct: [id number] Name: CASANDRA HENRY Rep #: [id number] : 1940 F 84 From: Pasquale Mendoza MD PCP: Dr. Sreekanth Cortez DO Status: REG ER Study: Chest PA and Lateral Date of Exam: 02/22/25 Exam# [id number] Ordering Dr: Devaughn Farmer DO PROCEDURE: CHEST [...] Devaughn Farmer DO; Dr. Sreekanth Cortez DO Occupational Therapy Assist: Signed Normal [facility] Chloride assayOrdered By: Myranda Farmer on 02-22-2025 Chloride [Moles/Vol] 100 mmol/L 98-108 [facility] Emergency Department Summary on 02-22-2025 Emergency Department Summary [facility] Medical Records Department [address] [place] [address] Emergency Department Summary 02/22/25 MR#: [id number] Acct: [id number] Name: CASANDRA HENRY Rep #: [id number] : 1940 84 From: Devaughn Farmer DO PCP: Dr. Sreekanth Cortez DO Status:REG ER Location: ED HPI History of Present Illness Chief Complaint: Hypertension Narrative Narrative: Chief complaint and HPI: Hypertension. 84-year-old female with past medical history of HTN, hypothyroidism presents for evaluation of HTN. Patient states for the past month she has been having uncontrolled hypertension. She followed up with her primary care physician on 6/16 in which her medications were changed. She [...] intact Psych: Cooperative, appropriate mood and affect [facility] Medical History (Updated 02/22/25 @ 07:43 by [...] 194/98. Diffe (more content not included)... Normal [facility] Eosinophil percentageOrdered By: Devaughn Farmer on 02-22-2025 Eosinophils/100 WBC (Bld) 7.3 % High 0-5 [facility] Erythrocyte distribution wid th ratioOrdered By: [facility] RehabilitationAlyson on 02-22-2025 Erythrocyte distribution width (RBC) [Ratio] 12.1 % 11.6-14.6 [facility] Erythrocyte distribution wid th standard deviationOrdered By: [facility] Rehabilitationshannan Escalante on 02-22-2025 Erythrocyte distribution width (RBC) [Ratio] 39.2 fl 35.1-43.9 [facility] Glomerular filtration rate ( GFR) estimation/1.73 sq m using serum, plasma, or whole bOrdered By: [facility] RehabilitationAlyson on 02-22-2025 GFR/1.73 sq M.predicted among non-blacks MDRD (S/P/Bld) [Vol rate/Area] 76 mL/min/{1.73_m2} >60 [facility] Comment on above: mL/min/1.73m2 CKD-EP I Creatinine Equation (2020) Hematocrit Auto (Bld) [Volum e fraction]Ordered By: [facility] CenterRichardBoris on 02-22-2025 Hematocrit (Bld) [Volume fraction] 36.6 % Low 37-47 [facility] Hemoglobin measurementOrdere d By: [facility] RehabilitationshannanBoris on 02-22-2025 Hemoglobin (Bld) [Mass/Vol] 12.6 g/dL 12.0-15.0 [facility] Immature granulocytes/100 WB C Auto (Bld)Ordered By: [facility] RehabilitationAlyson on 02-22-2025 Immature granulocytes/100 WBC (Bld) 0.500 % 0.0-0.9 [facility] Comment on above: IG% - Immature Granu locytes (promyelocytes, myelocytes and metamyelocytes) > 1% indicates that a LEFT SHIFT is Present. L499.0042on 02-22-2025 Trop T High Sen Normal <=14 [facility] Comment on above: Result Comment: Canc elled via OM: Ordered Performed By: #### L 499.0042 #### [facility] [address] [place], [address] L501.4021on 02-22-2025 Trop T High Sen 12 ng/L Normal <=14 [facility] Comment on above: Performed By: #### L 100.0100, L500.2500, L503.7505, L501.4021 #### [facility] [address] [place], [address] L503.7505on 02-22-2025 Natriuretic peptide B (Bld) [Mass/Vol] 210 pg/mL Normal <=1800 [facility] Comment on above: Result Comment: Hear t Failure Unlikely: < 300 pg/mL Heart Failure Likely < 50 Years: > 450 pg/mL 50-75 Years: > 900 pg/mL >75 Years: > 1800 pg/mL Performed By: #### L 100.0100, L500.2500, L503.7505, L501.4021 ####[facility] [address] [place], [address] MCV (mean corpuscular volume ) determinationOrdered By: Devaughn Farmer on 02-22-2025 MCV (RBC) [Entitic vol] 88.4 fL 81-99 [facility] Mean corpuscular hemoglobin (MCH) determinationOrdered By: [facility] RehabilitationmalouVictorina on 02-22-2025 MCH (RBC) [Entitic mass] 30.4 pg 27.0-32.0 [facility] Mean corpuscular hemoglobin concentration (MCHC) determinationOrdered By: [facility] RehabilitationAlyson on 02-22-2025 MCHC (RBC) [Mass/Vol] 34.4 g/dL 32-36 [facility] Mean platelet volume determi nationOrdered By: Devaughnmakenzie Farmer on 02-22-2025 Platelet mean volume (Bld) [Entitic vol] 9.4 fL 6.2-12.0 [facility] Monocyte percentageOrdered B y: Devaughn Farmer on 02-22-2025 Monocytes/100 WBC (Bld) 11.4 % High 0-10 [facility] Natriuretic peptide.B prohor ofelia N-Terminal [Mass/volume] in Serum or PlasmaOrdered By: Devaughn Farmer on 02-22-2025 Natriuretic peptide.B prohormone N-Terminal [Mass/Vol] 210 pg/mL <1800 [facility] Comment on above: Heart Failure Unlike ly: < 300 pg/mLHeart Failure Likely< 50 Years: > 450 pg/mL50-75 Years: > 900 pg/mL>75 Years: > 1800 pg/mL Neutrophil percentageOrdered By: Devaughn Farmer on 02-22-2025 Neutrophils/100 WBC (Bld) 58.7 % 47-70 [facility] Nucleated red blood cell per centageOrdered By: Devaughn Farmer on 02-22-2025 Nucleated RBC/100 WBC (Bld) [Ratio] 0 % 0-5 [facility] Platelet countOrdered By: Myranda Farmer on 02-22-2025 Platelets (Bld) [#/Vol] 285 10*3/uL 150-450 [facility] Potassium measurement (mass/ volume)Ordered By: Devaughn Farmer on 02-22-2025 Potassium (Unsp spec) [Mass/Vol] 4.0 mmol/L 3.3-5.1 [facility] RBC Auto (Bld) [#/Vol]Ordere d By: Devaughn Farmer on 02-22-2025 RBC (Bld) [#/Vol] 4.14 10*6/uL Low 4.2-5.4 [facility] Serum creatinine measurement (mass/volume)Ordered By: Devaughn Farmer on 02-22-2025 Creatinine [Mass/Vol] 0.78 mg/dL 0.70-1.20 [facility] Serum glucose measurement (m ass/volume)Ordered By: Devaughn Farmer on 02-22-2025 Glucose [Mass/Vol] 114 mg/dL High 70-99 [facility] Serum or plasma calcium lillie urement (mass/volume)Ordered By: Devaughn Escalante on 02-22-2025 Calcium [Mass/Vol] 9.0 mg/dL 7.6-11.0 [facility] Serum or plasma urea nitroge n measurement (mass/volume)Ordered By: Devaughn Farmer on 02-22-2025 Urea nitrogen [Mass/Vol] 8 mg/dL 4-19 [facility] Sodium levelOrdered By: Carlos Farmer on 02-22-2025 Sodium [Moles/Vol] 134 mmol/L 133-145 [facility] [facility] Troponin T.cardiac [Mass/vol ume] in Serum or Plasma by High sensitivity methodOrdered By: Devaughn Farmer on 02-22-2025 Troponin T.cardiac High sensitivity method [Mass/Vol] 12 ng/L <14 [facility] White blood cell (WBC) count Ordered By: Devaughn Farmer on 02-22-2025 WBC (Bld) [#/Vol] 8.6 10*3/uL 4.4-11.0 [facility] Basic metabolic 2000 panelon 02-20-2025 Anion gap [Moles/Vol] 12 mmol/L 8 - 15 mmol/L [facility] Calcium [Mass/Vol] 9.5 mg/dL 8.5 - 10. 2 mg/dL [facility] Chloride [Moles/Vol] 100 mmol/L 98 - 10 7 mmol/L [facility] CO2 [Moles/Vol] 23 mmol/L 22 - 30 mmol/L [facility] Creatinine [Mass/Vol] 0.82 mg/dL 0.58 - 0.96 mg/dL [facility] GFR/1.73 sq M.predicted among non-blacks MDRD (S/P/Bld) [Vol rate/Area] 72 mL/min/{1.73_m2} - PINF [facility] Comment on above: Estimated Glomerular Filtration Rate [...] 111 mg/dL High 74 - 99 mg/dL [facility] Comment on above: The [place] Diab[employer] [place] Association (ADA) provides guidance for [...] Standards of Medical Care in Diabetes 2016, [place] [employer]. Diabetes Care. 2016.39(Suppl 1). Interpretation and review of laboratory results Abnormal [facility] Potassium [Moles/Vol] 4.1 mmol/L 3.7 - 5.1 mmol/L [facility] Sodium [Moles/Vol] 135 mmol/L Low 136 - 144 mmol/L [facility] Urea nitrogen [Mass/Vol] 11 mg/dL 7 - 21 mg/d L [facility] Iron and Iron binding capaci ty panelon 02-20-2025 Interpretation and review of laboratory results Normal [facility] Iron [Mass/Vol] 64 ug/dL 41 - 186 ug/dL [facility] Iron binding capacity [Mass/Vol] 312 ug/dL 232 - 386 ug/dL [facility] Iron/TIBC [Molar ratio] 20.5 % 15.0 - 57.0 % [facility] No Panel Informationon 02-20 [facility] Basic metabolic 2000 panelon 02-19-2025 Anion gap [Moles/Vol] 12 mmol/L Normal 8-15 [facility] Comment on above: Order Comment: Speci men Type: BLOOD SPECIMENOrdering Facility: [facility] Address: [address] [place] [address] Performed By: #### 2 4321-2, 21373-2 ####[facility] [id number] [place] [address] [place] Calcium [Mass/Vol] 9.5 mg/dL Normal 8.5-10.2 [facility] Comment on above: Order Comment: Speci men Type: BLOOD SPECIMENOrdering Facility: [facility] Address: [address] [place], [place] [address] Performed By: #### 2 4321-2, 70117-5 ####[facility] [id number] [address] [address] [place] Chloride [Moles/Vol] 100 mmol/L Normal 98-107 [facility] Comment on above: Order Comment: Speci men Type: BLOOD SPECIMENOrdering Facility: [facility] Address: [address] [place], [place] [address] Performed By: #### 2 4321-2, 32723-9 ####[facility] [id number] [place] [address] [place] CO2 [Moles/Vol] 23 mmol/L Normal 22-30 [facility] Comment on above: Order Comment: Speci men Type: BLOOD SPECIMENOrdering Facility: [facility] Address: [address] [place] [address] Performed By: #### 2 4321-2, 40794-4 ####[facility] [id number] [place] [address] [place] Creatinine [Mass/Vol] 0.82 mg/dL Normal 0.58-0.96 [facility] Comment on above: Order Comment: Speci men Type: BLOOD SPECIMENOrdering Facility: [facility] Address: [address] [place], [place] [address] Performed By: #### 2 4321-2, 79025-3 ####[facility] [id number] [place] [address] [place] Creatinine and Glomerular filtration rate.predicted panel (S/P/Bld) 72 mL/min/1.73m??? Normal >=60 [facility] Comment on above: Order Comment: Speci men Type: BLOOD SPECIMENOrdering Facility: [facility] Address: [address] [place] [address] Result Comment: Hina mated Glomerular Filtration Rate [...] actual GFR. Performed By: #### 2 4321-2, 75397-8 ####[facility] [id number] [place] [address] [place] Glucose [Mass/Vol] 111 mg/dL High 74-99 [facility] Comment on above: Order Comment: Johanne soto Type: BLOOD SPECIMENOrdering Facility: [facility] Address: [address] [place] [address] Result Comment: The [place] Diabetes Association (ADA) provides guidance for cutoff [...] Standards of Medical Care in Diabetes 2016, [place] [employer] Association. Diabetes Care. 2016.39(Suppl 1). Performed By: #### 2 4321-2, 47036-2 ####[facility] [id number] [address] [address] [place] Potassium [Moles/Vol] 4.1 mmol/L Normal 3.7-5.1 [facility] Comment on above: Order Comment: Johanne soto Type: BLOOD SPECIMENOrdering Facility: [facility] Address: [address] [place] [address] Performed By: #### 2 4321-2, 60336-7 ####[facility] [id number] [place] [address] [place] Sodium [Moles/Vol] 135 mmol/L Low 136-144 [facility] Comment on above: Order Comment: Speci men Type: BLOOD SPECIMENOrdering Facility: [facility] Address: [address] [place] [address] Performed By: #### 2 4321-2, 07241-7 ####[facility] [id number] [place] [address] [place] Urea nitrogen [Mass/Vol] 11 mg/dL Normal 7-21 [facility] Comment on above: Order Comment: Speci men Type: BLOOD SPECIMENOrdering Facility: [facility] Address: [address] [place] [address] Performed By: #### 2 4321-2, 70109-7 ####[facility] [id number] [place] [address] [place] CBC W Auto Differential pane l (Bld)on 02-19-2025 Basophils (Bld) [#/Vol] 0.05 10*3/uL [facility] Basophils/100 WBC (Bld) 0.6 % C [facility] Differential cell count method Nom (Bld) Auto [facility] Eosinophils (Bld) [#/Vol] 0.51 10*3/uL High [facility] Eosinophils/100 WBC (Bld) 6.1 % [facility] Erythrocyte distribution width (RBC) [Ratio] 12.4 % 11.5 - 15.0 % [facility] Hematocrit (Bld) [Volume fraction] 38.1 % 36.0 - 46.0 % [facility] Hemoglobin (Bld) [Mass/Vol] 13.1 g/dL 11.5 - 15.5 g/dL [facility] Immature granulocytes (Bld) [#/Vol] [facility] Immature granulocytes/100 WBC (Bld) 0.2 % [facility] Interpretation and review of laboratory results Abnormal [facility] Lymphocytes (Bld) [#/Vol] 1.8 10*3/uL [facility] Lymphocytes/100 WBC (Bld) 21.6 % [facility] MCH (RBC) [Entitic mass] 31.3 pg 26. 0 - 34.0 pg [facility] MCHC (RBC) [Mass/Vol] 34.4 g/dL 30.5 - 36.0 g/dL [facility] MCV (RBC) [Entitic vol] 90.9 fL 80.0 - 100.0 fL [facility] Monocytes (Bld) [#/Vol] 0.86 10*3/uL [facility] Monocytes/100 WBC (Bld) 10.3 % [facility] Neutrophils (Bld) [#/Vol] 5.09 10*3/uL [facility] Neutrophils/100 WBC (Bld) 61.2 % [facility] Nucleated RBC (Bld) [#/Vol] [facility] Nucleated RBC/100 WBC (Bld) [Ratio] 0 % /100 WBC [facility] Platelet mean volume (Bld) [Entitic vol] 11.2 fL 9.0 - 12.7 fL [facility] Platelets (Bld) [#/Vol] 242 10*3/uL [facility] RBC (Bld) [#/Vol] 4.19 10*6/uL 3.90 - 5.2 0 m/uL [facility] WBC (Bld) [#/Vol] 8.33 10*3/uL [facility] Basophils (Bld) [#/Vol] 0.05 10*3/uL Normal <0.11 [facility] Comment on above: Order Comment: Speci men Type: BLOOD SPECIMENOrdering Facility: [facility] Address: [address] [place] [address] Performed By: #### 5 7021-8 ####[facility] [id number] [address] [place] Basophils/100 WBC (Bld) 0.6 % Normal [facility] Comment on above: Order Comment: Speci men Type: BLOOD SPECIMENOrdering Facility: [facility] Address: [address] [place] [address] Performed By: #### 5 7021-8 ####[facility] [id number] [address], [place] [address] [place] Differential cell count method Nom (Bld) Auto Normal [facility] Comment on above: Order Comment: Speci men Type: BLOOD SPECIMENOrdering Facility: [facility] Address: [address] [place] [address] Performed By: #### 5 7021-8 ####[facility] [id number] [address], [place] [address] [place] Eosinophils (Bld) [#/Vol] 0.51 10*3/uL High <0.46 [facility] Comment on above: Order Comment: Speci men Type: BLOOD SPECIMENOrdering Facility: [facility] Address: [address] [place] [address] Performed By: #### 5 7021-8 ####[facility] [id number] [place] [address] [place] Eosinophils/100 WBC (Bld) 6.1 % Normal [facility] Comment on above: Order Comment: Speci men Type: BLOOD SPECIMENOrdering Facility: [facility] Address: [address] [place] [address] Performed By: #### 5 7021-8 ####[facility] [id number] [place] [address] [place] Erythrocyte distribution width (RBC) [Ratio] 12.4 % Normal 11.5-15.0 [facility] Comment on above: Order Comment: Speci men Type: BLOOD SPECIMENOrdering Facility: [facility] Address: [address] [place] [address] Performed By: #### 5 7021-8 ####[facility] [id number] [address], [place] [address] [place] Hematocrit (Bld) [Volume fraction] 38.1 % Normal 36.0-46.0 [facility] Comment on above: Order Comment: Speci men Type: BLOOD SPECIMENOrdering Facility: [facility] Address: [address] [place] [address] Performed By: #### 5 7021-8 ####[facility] [id number] [place] [address] [place] Hemoglobin (Bld) [Mass/Vol] 13.1 g/dL Normal 11.5-15.5 [facility] Comment on above: Order Comment: Speci men Type: BLOOD SPECIMENOrdering Facility: [facility] Address: [address] [place] [address] Performed By: #### 5 7021-8 ####[facility] [id number] [place] [address] [place] Immature granulocytes (Bld) [#/Vol] 10*3/uL Normal <0.10 [facility] Comment on above: Order Comment: Speci men Type: BLOOD SPECIMENOrdering Facility: [facility] Address: [address] [place] [address] Performed By: #### 5 7021-8 ####[facility] [id number] [place] [address] [place] Immature granulocytes/100 WBC (Bld) 0.2 % Normal [facility] Comment on above: Order Comment: Speci men Type: BLOOD SPECIMENOrdering Facility: [facility] Address: [address] [place] [address] Performed By: #### 5 7021-8 ####[facility] [id number] [place] [id number] [place] Lymphocytes (Bld) [#/Vol] 1.80 10*3/uL Normal 1.00-4.00 [facility] Comment on above: Order Comment: Speci men Type: BLOOD SPECIMENOrdering Facility: [facility] Address: [address] [place] [address] Performed By: #### 5 7021-8 ####[facility] [id number] [place] [address] [place] Lymphocytes/100 WBC (Bld) 21.6 % Normal [facility] Comment on above: Order Comment: Speci men Type: BLOOD SPECIMENOrdering Facility: [facility] Address: [address] [place] [address] Performed By: #### 5 7021-8 ####[facility] [id number] [place] [address] [place] MCH (RBC) [Entitic mass] 31.3 pg Normal 26.0-34.0 [facility] Comment on above: Order Comment: Speci men Type: BLOOD SPECIMENOrdering Facility: [facility] Address: [address] [place] [address] Performed By: #### 5 7021-8 ####[facility] [id number] [address] [place] MCHC (RBC) [Mass/Vol] 34.4 g/dL Normal 30.5-36.0 [facility] Comment on above: Order Comment: Speci men Type: BLOOD SPECIMENOrdering Facility: [facility] Address: [address] [place] [address] Performed By: #### 5 7021-8 ####[facility] [id number] [place] [address] [place] MCV (RBC) [Entitic vol] 90.9 fL Normal 80.0-100.0 [facility] Comment on above: Order Comment: Speci men Type: BLOOD SPECIMENOrdering Facility: [facility] Address: [address] [place] [address] Performed By: #### 5 7021-8 ####[facility] [id number] [place] [address] [place] Monocytes (Bld) [#/Vol] 0.86 10*3/uL Normal <0.87 [facility] Comment on above: Order Comment: Speci men Type: BLOOD SPECIMENOrdering Facility: [facility] Address: [address] [place] [address] Performed By: #### 5 7021-8 ####[facility] [id number] [address] [address] [place] Monocytes/100 WBC (Bld) 10.3 % Normal [facility] Comment on above: Order Comment: Speci men Type: BLOOD SPECIMENOrdering Facility: [facility] Address: [address] [place] [address] Performed By: #### 5 7021-8 ####[facility] [id number] [place] [address] [place] Neutrophils (Bld) [#/Vol] 5.09 10*3/uL Normal 1.45-7.50 [facility] Comment on above: Order Comment: Speci men Type: BLOOD SPECIMENOrdering Facility: [facility] Address: [address] [place] [address] Performed By: #### 5 7021-8 ####[facility] [id number] [place] [id number] [place] Neutrophils/100 WBC (Bld) 61.2 % Normal [facility] Comment on above: Order Comment: Speci men Type: BLOOD SPECIMENOrdering Facility: [facility] Address: [address] [place] [address] Performed By: #### 5 7021-8 ####[facility] [id number] [address] [address] [place] Nucleated RBC (Bld) [#/Vol] 10*3/uL Normal <0.01 [facility] Comment on above: Order Comment: Speci men Type: BLOOD SPECIMENOrdering Facility: [facility] Address: [address] [place] [address] Performed By: #### 5 7021-8 ####[facility] [id number] [address] [place] [address] [place] Nucleated RBC/100 WBC (Bld) [Ratio] 0.0 /100 WBC Normal [facility] Comment on above: Order Comment: Speci men Type: BLOOD SPECIMENOrdering Facility: [facility] Address: [address] [place] [address] Performed By: #### 5 7021-8 ####[facility] [id number] [address], [place] [address] [place] Platelet mean volume (Bld) [Entitic vol] 11.2 fL Normal 9.0-12.7 [facility] Comment on above: Order Comment: Speci men Type: BLOOD SPECIMENOrdering Facility: [facility] Address: [address] [place] [address] Performed By: #### 5 7021-8 ####[facility] [id number] [place] [address] [place] Platelets (Bld) [#/Vol] 242 10*3/uL Normal 150-400 [facility] Comment on above: Order Comment: Speci men Type: BLOOD SPECIMENOrdering Facility: [facility] Address: [address] [place] [address] Performed By: #### 5 7021-8 ####[facility] [id number] [place] [address] [place] RBC (Bld) [#/Vol] 4.19 10*6/uL Normal 3.90-5.20 [facility] Comment on above: Order Comment: Speci men Type: BLOOD SPECIMENOrdering Facility: [facility] Address: [address] [place] [address] Performed By: #### 5 7021-8 ####[facility] [id number] [place] [id number] [place] WBC (Bld) [#/Vol] 8.33 10*3/uL Normal 3.70-11.00 [facility] Comment on above: Order Comment: Speci men Type: BLOOD SPECIMENOrdering Facility: [facility] Address: [address] [place] [address] Performed By: #### 5 7021-8 ####[facility] [id number] ROSALESDannielle HERMOSILLO [place] [id number] [place] CNOVon 02-19-2025 CNOV Office Visit (FAMPWS ) ELAINECASANDRA ([id number]) 1940 F Date Time Provider Department 02/19/25 12:20 PM [facility] During [facility] today, we recorded the following information about you: Pulse Respiration Blood pressure Weight 68/minute 16/minute 170/80 64 kg Margoth Chavez APRN.[employer] 02/19/2025 5:54 PM Signed This is a [...] WHEN PFRMD 12/05/[address] [facility] FLX W/REMOVAL LESION BY HOT [...] acute distress (more content not included)... Normal [facility] Iron and Iron binding capaci ty panelon 02-19-2025 Iron [Mass/Vol] 64 ug/dL Normal 41-186 [facility] Comment on above: Order Comment: Johanne soto Type: BLOOD SPECIMENOrdering Facility: [facility] Address: [address] [place] [address] Performed By: #### 2 4321-2, 77397-9 ####[facility] [id number] [place] [address] [place] Iron binding capacity [Mass/Vol] 312 ug/dL Normal 232-386 [facility] Comment on above: Order Comment: Johanne soto Type: BLOOD SPECIMENOrdering Facility: [facility] Address: [address] [place] [address] Performed By: #### 2 4321-2, 69818-9 ####[facility] [id number] [place] [id number] [place] Iron/TIBC [Molar ratio] 20.5 % Normal 15.0-57.0 [facility] Comment on above: Order Comment: Speci men Type: BLOOD SPECIMENOrdering Facility: [facility] Address: [address] [place] [address] Performed By: #### 2 4321-2, 98613-5 ####[facility] [id number] [place] [id number] [place] CNOVon 02-05-2025 CNOV Office Visit (FAMPWS ) ANURAGJosé MiguelCASANDRA ([id number]) 1940 F Date Time Provider Department 02/05/25 9:00 AM [facility]ANTH CORTEZ [facility] During your visit today, we recorded [...] Monitor serum sodium levels regularly. Recording using [employer] software for draft documentation of the visit was discussed with the patient/authorized surgical sales representative; all questions welcomed and answered. Patient/authorized surgical sales representative agreed to proceed Allergies As [...] 1 hydr (more content not included)... Normal [facility] CNOVon 12-25-2024 CNOV Office Visit (FAMPWS ) CASANDRA HENRY ([id number]) 1940 F Date Time Provider Department 12/25/24 [...] 25 MG TABLET,EXTENDED RELEASE 24 HR Maribeth Podlogmyranda, FERNANDEZ.[employer] BU[employer]ER Prescription instructions reviewed with patient as applicable. [...] twice a (more content not included)... Normal [facility] 12-25-2024 [facility] Telephone ([facility]) ELAINECASANDRA ([id number]) 1940 F Date Time Provider Department 12/25/24 MARILYN GUTIERREZ [facility] During your visit today, we recorded the [...] by CHYNA RAMIREZ on 12/25/[address] [facility] ANURAGCASANDRA Valdez ([id number]) 1940 F Date Time Provider Department 11/21/24 SREEKANTH CORTEZ During your visit today, we [...] by VINIF (more content not included)... Normal [facility] Basic metabolic 2000 panelon 11-16-2024 Anion gap [Moles/Vol] 11 mmol/L Normal 8-15 [facility] Comment on above: Order Comment: Speci men Type: URINE SPECIMEN Ordering Facility: [address] Address: [address] [place], [place] [address] Performed By: #### 3 5678-2, 2888-6 #### [facility] CLIA [id number] [address] [place] [address] [place] Calcium [Mass/Vol] 9.3 mg/dL Normal 8.5-10.2 [facility] Comment on above: Order Comment: Speci men Type: URINE SPECIMEN Ordering Facility: [address] Address: [address] [place] [address] Performed By: #### 3 5678-2, 2888-6 #### [facility] CLIA [id number] [address] [address] [place] Chloride [Moles/Vol] 102 mmol/L Normal 98-107 [facility] Comment on above: Order Comment: Speci men Type: URINE SPECIMEN [facility]ing Facility: [facility] Address: [address] [place] [address] Performed By: #### 3 5678-2, 2888-6 #### [facility] CLIA [id number] [address] [place], [place] [address] [place] CO2 [Moles/Vol] 25 mmol/L Normal 22-30 [facility] Comment on above: Order Comment: Speci men Type: URINE SPECIMEN Ordering Facility: Address: [address] [place] [address] Performed By: #### 3 5678-2, 2888-6 #### [facility] CLIA [id number] [address] [place], [place] [address] [place] Creatinine [Mass/Vol] 0.85 mg/dL Normal 0.58-0.96 [facility] Comment on above: Order Comment: Speci men Type: URINE SPECIMEN Ordering Facility: [facility] Address: [address] [place] [address] Performed By: #### 3 5678-2, 2888-6 #### [facility] CLIA [id number] [address] [address] [place] Creatinine and Glomerular filtration rate.predicted panel (S/P/Bld) 69 mL/min/1.73m??? Normal >=60 [facility] Comment on above: Order Comment: Speci men Type: URINE SPECIMEN Ordering Facility: [facility] Address: [address] [place] [address] Result Comment: Hina mated Glomerular Filtration Rate [...] reflect actual GFR. Performed By: #### 3 5678-2, 2888-6 #### [facility] CLIA [id number] [address] [address] [place] Glucose [Mass/Vol] 89 mg/dL Normal 74-99 [facility] Comment on above: Order Comment: Speci men Type: URINE SPECIMEN Ordering Facility: [address] Address: [address] [place] [address] Result Comment: The [place] [employer] (ADA) provides guidance for cutoff [...] Standards of Medical Care in Diabetes 2016, [place] [employer]. Diabetes Care. 2016.39(Suppl 1). Performed By: #### 3 5678-2, 2887-6 #### [facility] CLIA [id number] [address] [address] [place] Potassium [Moles/Vol] 4.3 mmol/L Normal 3.7-5.1 [facility] Comment on above: Order Comment: Speci men Type: URINE SPECIMEN Ordering Facility: [address] Address: [address] [place], [place] [address] Performed By: #### 3 5678-2, 2888-6 #### [facility] CLIA [id number] [address] [id number] [address] [place] Sodium [Moles/Vol] 138 mmol/L Normal 136-144 [facility] Comment on above: Order Comment: Speci men Type: URINE SPECIMEN Ordering Facility: Address: [address] [place] [address] Performed By: #### 3 5678-2, 2888-6 #### [facility] CLIA [id number] [address] [place] [id number] [place] Urea nitrogen [Mass/Vol] 8 mg/dL Normal 7-21 [facility] Comment on above: Order Comment: Speci men Type: URINE SPECIMEN Ordering Facility: Address: [address] [place] [address] Performed By: #### 3 5678-2, 2888-6 #### [facility] CLIA [id number] [address] [place] [id number] [place] Osmolality SerPlon Osmolality [Osmolality] 283 mosm/kg Normal 275-300 [facility] Comment on above: Order Comment: Speci men Type: URINE SPECIMEN Ordering Facility: Address: [address] [place] [address] Performed By: #### 3 5678-2, 2888-6 #### [facility] CLIA [id number] [address] [place] [id number] [place] Osmolality Uron 11-16-2024 Osmolality (U) [Osmolality] 210 mosm/kg Normal 50-1200 [facility] Comment on above: Order Comment: Speci men Type: URINE SPECIMENOrdering Facility: Address: [address] [place] [address] Performed By: #### 2 695-5 ####[facility] [id number] [place] [id number] [place] Prot Ur-mCncon 11-16-2024 Protein (U) [Mass/Vol] 6 mg/dL Normal 0-20 [facility] Comment on above: Order Comment: Speci men Type: URINE SPECIMEN Ordering Facility: Address: [facility] [place] [address] Performed By: #### 3 5678-2, 2888-6 #### [facility] CLIA [id number] [address] [place] [address] [place] Sodium ?Tm Ur-sCncon 025 Sodium Unsp time (U) [Moles/Vol] 84 mmol/L Normal 14-216 [facility] Comment on above: Order Comment: Speci men Type: URINE SPECIMEN Ordering Facility: Address: [facility] [place] [address] Performed By: #### 3 5678-2, 2888-6 #### [facility] CLIA [id number] [address] [place] [address] [place] T4 Free SerPl-mCncon 025 Free T4 [Mass/Vol] 1.9 ng/dL High 0.9-1.7 [facility] Comment on above: Order Comment: Speci men Type: URINE SPECIMEN Ordering Facility: Address: [facility] [place] [address] Performed By: #### 3 5678-2, 2888-6 #### [facility] CLIA [id number] [address] [place] [address] [place] TSH SerPl-aCncon 11-16-2024 TSH Qn 0.241 m[IU]/L Low 0.270-4.200 [facility] Comment on above: Order Comment: Speci men Type: URINE SPECIMEN Ordering Facility: Address: [facility] [place] [address] Performed By: #### 3 5678-2, 2888-6 #### [facility] CLIA [id number] [address] [place] [address] [place] CNOVon 08-08-2024 CNOV Office Visit (FAMPWS ) CASANDRA HENRY ([id number]) 1940 F Date Time Provider Department 08/08/24 9:00 AM SREEKANTH CORTEZPWS During your visit today, we recorded the [...] WHEN PFRMD 12/05/[address] [facility] FLX W/REMOVAL LESION BY HOT [...] bring results (more content not included)... Normal [facility] Hellen 07-12-2024 RIGO Telephone (TRENAWS) CASANDRA HENRY ([id number]) 1940 F Date Time Provider Department 07/12/24 SERGEI RENNER During your visit today, we [...] name of levothyroxine 100 mcg. Patient uses [facility] as pharmacy. ENEDELIA Stearns Rebekah, APRN.SATISH 07/13/2024 11:54 AM Signed Synthroid, JUDITH, sent. Recheck thyroid labs in about 6 weeks. The following approved medication requests have been transmitted electronically. Requested Prescriptions Signed Prescriptions Disp Refills SYNTHROID 100 mcg tablet 30 tablet 2 Sig: Take 1 tablet by mouth once daily. Take on empty stomach Authorizing Provider: SERGEI RENNER APRN.Roxanne Dillon RN 07/13/2024 1:57 PM Signed Patient notified of provider's instructions and that prescription sent to pharmacy. Patient verbalizes understanding. Roxanne Felix RN Allergies As of Date: 07/12/2024 Noted Allergy Reaction GLUTEN 08/09/2023 3 - Cough MILK CONTAINING PRODUCTS (DAIRY) 08/09/2023 3 - Cough Date Reviewed: 04/28/2024 Reviewed by: Sergei Renner APRN.PULPWOOD BUYER - Fully Assessed Reason for Visit: Results [95] Orders [681] Primary Visit Diagnosis:Hypothyroidi sm, unspecified type [E03.9] Order(s):SYNTHROID 100 mcg tabletTake 1 tablet by mouth once daily. Take on empty stomachDisp: 30 tabletRfl: 2 THYROID STIMULATING HORMONE [SQTSH] Order #: [id number] FUTURE T4 FREE/FREE THYROXINE [SQFT4] Order #: [id number] FUTURE Prescriptions as of 07/13/2024 - SYNTHROID [...] Status:Closed by ROXANNE FELIX on 07/13/24 Normal [facility] CBC panel Auto (Bld)on 07-10 Erythrocyte distribution width (RBC) [Ratio] 12.6 % Normal 11.5-15.0 [facility] Comment on above: Order Comment: Speci men Type: BLOOD SPECIMENOrdering Facility: [facility] Address: [address] [place] [address] Performed By: #### 5 8410-2 ####[facility] [id number] [facility] [place] [address] [place] Hematocrit (Bld) [Volume fraction] 41.8 % Normal 36.0-46.0 [facility] Comment on above: Order Comment: Speci men Type: BLOOD SPECIMENOrdering Facility: [facility] Address: [address] [place] [address] Performed By: #### 5 8410-2 ####[facility] [id number] [place] [address] [place] Hemoglobin (Bld) [Mass/Vol] 13.8 g/dL Normal 11.5-15.5 [facility] Comment on above: Order Comment: Speci men Type: BLOOD SPECIMENOrdering Facility: [facility] Address: [address] [place] [address] Performed By: #### 5 8410-2 ####[facility] [id number] [place] [address] [place] MCH (RBC) [Entitic mass] 30.8 pg Normal 26.0-34.0 [facility] Comment on above: Order Comment: Speci men Type: BLOOD SPECIMENOrdering Facility: [facility] Address: [address] [place] [address] Performed By: #### 5 8410-2 ####[facility] [id number] [place] [address] [place] MCHC (RBC) [Mass/Vol] 33.0 g/dL Normal 30.5-36.0 [facility] Comment on above: Order Comment: Speci men Type: BLOOD SPECIMENOrdering Facility: [facility] Address: [address] [place] [address] Performed By: #### 5 8410-2 ####[facility] [id number] [place] [address] [place] MCV (RBC) [Entitic vol] 93.3 fL Normal 80.0-100.0 [facility] Comment on above: Order Comment: Speci men Type: BLOOD SPECIMENOrdering Facility: [facility] Address: [address] [place] [address] Performed By: #### 5 8410-2 ####[facility] [id number] [place] [address] [place] Nucleated RBC (Bld) [#/Vol] 10*3/uL Normal <0.01 [facility] Comment on above: Order Comment: Speci men Type: BLOOD SPECIMENOrdering Facility: [facility] Address: [address] [place] [address] Performed By: #### 5 8410-2 ####[facility] [id number] [place] [address] [place] Platelet mean volume (Bld) [Entitic vol] 9.7 fL Normal 9.0-12.7 [facility] Comment on above: Order Comment: Speci men Type: BLOOD SPECIMENOrdering Facility: [facility] Address: [address] [place] [address] Performed By: #### 5 8410-2 ####[facility] [id number] [place] [address] [place] Platelets (Bld) [#/Vol] 294 10*3/uL Normal 150-400 [facility] Comment on above: Order Comment: Speci men Type: BLOOD SPECIMENOrdering Facility: [facility] Address: [address] [place] [address] Performed By: #### 5 8410-2 ####[facility] [id number] [place] [address] [place] RBC (Bld) [#/Vol] 4.48 10*6/uL Normal 3.90-5.20 [facility] Comment on above: Order Comment: Speci men Type: BLOOD SPECIMENOrdering Facility: [facility] Address: [address] [place] [address] Performed By: #### 5 8410-2 ####[facility] [id number] [place] [address] [place] WBC (Bld) [#/Vol] 9.66 10*3/uL Normal 3.70-11.00 [facility] Comment on above: Order Comment: Speci men Type: BLOOD SPECIMENOrdering Facility: [facility] Address: [address] [place] [address] Performed By: #### 5 8410-2 ####[facility] [id number] [place] [address] [place] T4 Free SerPl-mCncon 024 Free T4 [Mass/Vol] 1.5 ng/dL Normal 0.9-1.7 [facility] Comment on above: Order Comment: Speci men Type: BLOOD SPECIMENOrdering Facility: [facility] Address: [address] [place] [address] Performed By: #### 3 016-3, 3024-7 ####[facility] [id number] [place] [address] [place] TSH SerPl-aCncon 07-10-2024 TSH Qn 4.450 m[IU]/L High 0.270-4.200 [facility] Comment on above: Order Comment: Speci men Type: BLOOD SPECIMENOrdering Facility: [facility] Address: [address] [place] [address] Performed By: #### 3 016-3, 3024-7 ####[facility] [id number] [place] [address] [place] CNPNon 06-06-2024 CNPN Telephone (FAMPWS) CASANDRA [id number]) 1940 F Date Time Provider Department 06/06/24 SREEKANTH CORTEZ During your visit today, we [...] Date Reviewed: 04/28/2024 Reviewed by: Sergei Renner APRN.PULPWOOD BUYER - Fully Assessed Reason for Visit: Medication [...] Encounter Status:Closed by SERGEI RENNER on 06/06/24 [facility] ([id number]) 1940 F Date Time Provider Department 05/02/24 SERGEI RENNER [facility] During your visit today, we recorded the following information about you: Sergei Renner APRN.PULPWOOD BUYER 05/02/2024 4:52 PM Signed Please let her [...] Date Reviewed: 04/28/2024 Reviewed by: Sergei Renner APRN.PULPWOOD BUYER - Fully Assessed Reason for Visit: Results [95] Orders [681] Primary Visit Diagnosis:Hypothyroidi sm, unspecified type [E03.9] Order(s):THYROID STIMULATING HORMONE [SQTSH] Order #: [id number] FUTURE T4 FREE/FREE THYROXINE [SQFT4] Order #: [id number] FUTURE levothyroxine (SYNTHROID) 100 mcg tabletTake 1 [...] Encounter Status:Closed by LAURA LISA on 05/02/[address] [facility] Sophie 04-28-2024 CNOV Office Visit (TRENAWS ) CASANDRA HENRY ([id number]) 1940 F Date Time Provider Department 04/28/24 7:20 AM SERGEI RENNER During your visit today, we recorded the following information about you: Pulse Respiration Blood pressure Weight 66/minute 16/minute 154/80 63.1 kg Sergei Renner APRN.PULPWOOD BUYER 04/28/2024 2:02 PM Signed Chief Complaint Patient [...] Sees Dr. Stoney Ray, he comes to [facility] once a week on Wednesdays. Past medical history, appointments, medications, allergies reviewed. Previous Medical History PAST MEDICAL HISTORY No date: Acid reflux No date: Hiatal hernia No date: Hypertension No date: Hypothyroid No date: Palpitation Previous Surgical History PAST SURGICAL HISTORY 2000: CARPAL TUNNEL Comment: bilateral 12/05/2013: COLONOSCOPY FLX DX W/COLLJ SPEC WHEN PFRMD Comment: Colonoscopy done in [place] 02/19/2020: COLSC FLX W/REMOVAL LESION BY HOT [...] - LEVOTHYROXINE (more content not included)... [facility] (FAMWS) CASANDRA HENRY ([id number]) 1940 F Date Time Provider Department 04/28/24 [facility] During your visit today, we recorded the following information about you: Sergei Renner APRN.SATISH 04/28/2024 1:57 PM Signed Please contact Dr. 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 Patient's blood pressure at [...] Date Reviewed: 04/28/2024 Reviewed by: Sergei Renner APRN.PULPWOOD BUYER - Fully Assessed Reason for Visit: contact [...] Status:Closed by DONITA ESTES on 07/19/24 Normal [facility] metabolic 2000 panelon 04-28-2024 Albumin [Mass/Vol] 4.4 g/dL Normal 3.9-4.9 [facility] Comment on above: Order Comment: Speci men Type: BLOOD SPECIMENOrdering Facility: [facility] Address: [address] [place] [address] Performed By: #### 3 024-7, 3016-3, 97135-1, 72396-3 ####[facility] [id number] [place] [address] [place] ALP [Catalytic activity/Vol] 133 U/L High 34-123 [facility] Comment on above: Order Comment: Speci men Type: BLOOD SPECIMENOrdering Facility: [facility] Address: [address] [place] [address] Performed By: #### 3 024-7, 3016-3, 55167-2, 66601-0 ####[facility] [id number] [place] [address] [place] ALT [Catalytic activity/Vol] 14 U/L Normal 7-38 [facility] Comment on above: Order Comment: Speci men Type: BLOOD SPECIMENOrdering Facility: [facility] Address: [address] [place] [address] Performed By: #### 3 024-7, 3016-3, 16123-0, 49864-2 ####[facility] [id number] [place] [address] [place] Anion gap [Moles/Vol] 14 mmol/L Normal 8-15 [facility] Comment on above: Order Comment: Speci men Type: BLOOD SPECIMENOrdering Facility: [facility] Address: [address] [place] [address] Performed By: #### 3 024-7, 3016-3, 98264-0, 41909-0 ####[facility] [id number] [place] [id number] [place] AST [Catalytic activity/Vol] 20 U/L Normal 13-35 [facility] Comment on above: Order Comment: Speci men Type: BLOOD SPECIMENOrdering Facility: [facility] Address: [address] [place] [address] Performed By: #### 3 024-7, 3016-3, 29182-4, 46352-5 ####[facility] [id number] [place] [address] [place] Bilirubin [Mass/Vol] 1.4 mg/dL High 0.2-1.3 [facility] Comment on above: Order Comment: Speci men Type: BLOOD SPECIMENOrdering Facility: [facility] Address: [address] [place] [address] Performed By: #### 3 024-7, 3016-3, 51024-6, 23595-1 ####[facility] [id number] [place] [address] [place] Calcium [Mass/Vol] 9.7 mg/dL Normal 8.5-10.2 [facility] Comment on above: Order Comment: Speci men Type: BLOOD SPECIMENOrdering Facility: [facility] Address: [address] [place] [address] Performed By: #### 3 024-7, 3016-3, 71052-2, 99657-6 ####[facility] [id number] [place] [address] [place] Chloride [Moles/Vol] 97 mmol/L Low 98-107 [facility] Comment on above: Order Comment: Speci men Type: BLOOD SPECIMENOrdering Facility: [facility] Address: [address] [place] [address] Performed By: #### 3 024-7, 3016-3, 60822-3, 70886-9 ####[facility] [id number] [place] [address] [place] CO2 [Moles/Vol] 25 mmol/L Normal 22-30 [facility] Comment on above: Order Comment: Johanne soto Type: BLOOD SPECIMENOrdering Facility: [facility] Address: [address] [place] [address] Performed By: #### 3 024-7, 3016-3, 21779-4, 07150-6 ####[facility] [id number] [place] [address] [place] Creatinine [Mass/Vol] 0.85 mg/dL Normal 0.58-0.96 [facility] Comment on above: Order Comment: Johanne soto Type: BLOOD SPECIMENOrdering Facility: [facility] Address: [address] [place] [address] Performed By: #### 3 024-7, 3016-3, 22365-0, 69466-6 ####[facility] [id number] [place] [address] [place] Creatinine and Glomerular filtration rate.predicted panel (S/P/Bld) 69 mL/min/1.73m??? Normal >=60 [facility] Comment on above: Order Comment: Johanne soto Type: BLOOD SPECIMENOrdering Facility: [facility] Address: [address] [place] [address] Result Comment: Hina mated Glomerular Filtration Rate [...] GFR. Performed By: #### 3 024-7, 3016-3, 32922-5, 33271-6 ####[facility] [id number] [place] [id number] [place] Glucose [Mass/Vol] 93 mg/dL Normal 74-99 [facility] Comment on above: Order Comment: Johanne soto Type: BLOOD SPECIMENOrdering Facility: [facility] Address: [address] [place] [address] Result Comment: The [place] Diabetes Association (ADA) provides guidance for cutoff [...] Standards of Medical Care in Diabetes 2016, [place] [employer]. Diabetes Care. 2016.39(Suppl 1). Performed By: #### 3 024-7, 3016-3, 32142-4, 90083-2 ####[facility] [id number] [place] [id number] [place] Potassium [Moles/Vol] 4.2 mmol/L Normal 3.7-5.1 [facility] Comment on above: Order Comment: Johanne soto Type: BLOOD SPECIMENOrdering Facility: [facility] Address: [address] [place] [address] Performed By: #### 3 024-7, 3016-3, 34134-7, 14870-0 ####[facility] [id number] [place] [id number] [place] Protein [Mass/Vol] 7.1 g/dL Normal 6.3-8.0 [facility] Comment on above: Order Comment: Johanne soto Type: BLOOD SPECIMENOrdering Facility: [facility] Address: [address] [place] [address] Performed By: #### 3 024-7, 3016-3, 55562-3, 87874-2 ####[facility] [id number] [place] [id number] [place] Sodium [Moles/Vol] 136 mmol/L Normal 136-144 [facility] Comment on above: Order Comment: Speci men Type: BLOOD SPECIMENOrdering Facility: [facility] Address: [address] [place] [address] Performed By: #### 3 024-7, 3016-3, 28046-9, 86036-0 ####[facility] [id number] [place] [address] [place] Urea nitrogen [Mass/Vol] 12 mg/dL Normal 7-21 [facility] Comment on above: Order Comment: Speci men Type: BLOOD SPECIMENOrdering Facility: [facility] Address: [address] [place] [address] Performed By: #### 3 024-7, 3016-3, 22970-7, 67559-9 ####[facility] [id number] [place] [address] [place] Ferritin SerPl-mCncon 2023 Ferritin [Mass/Vol] 138.0 ng/mL Normal 14.7-205.1 [facility] Comment on above: Order Comment: Speci men Type: BLOOD SPECIMENOrdering Facility: [facility] Address: [address] [place] [address] Performed By: #### 2 276-4 ####[facility] [id number] [place] [address] [place] Iron and Iron binding capaci ty panelon 04-28-2024 Iron [Mass/Vol] 103 ug/dL Normal 41-186 [facility] Comment on above: Order Comment: Speci men Type: BLOOD SPECIMENOrdering Facility: [facility] Address: [address] [place] [address] Performed By: #### 3 024-7, 3016-3, 29901-3, 54025-3 ####[facility] [id number] [address] [id number] [address] [place] Iron binding capacity [Mass/Vol] 320 ug/dL Normal 232-386 [facility] Comment on above: Order Comment: Speci men Type: BLOOD SPECIMENOrdering Facility: [facility] Address: [address] [place] [address] Performed By: #### 3 024-7, 3016-3, 79125-3, 43391-1 ####[facility] [id number] [address] [place] Iron/TIBC [Molar ratio] 32.2 % Normal 15.0-57.0 [facility] Comment on above: Order Comment: Speci men Type: BLOOD SPECIMENOrdering Facility: [facility] Address: [address] [place] [address] Performed By: #### 3 024-7, 3016-3, 03122-2, 40577-2 ####[facility] [id number] [place] [address] [place] T4 Free SerPl-mCncon 024 Free T4 [Mass/Vol] 1.2 ng/dL Normal 0.9-1.7 [facility] Comment on above: Order Comment: Speci men Type: BLOOD SPECIMENOrdering Facility: [facility] Address: [address] [place] [address] Performed By: #### 3 024-7, 3016-3, 52077-5, 19755-9 ####[facility] [id number] [place] [address] [place] TSH SerPl-aCncon 04-28-2024 TSH Qn 6.310 m[IU]/L High 0.270-4.200 [facility] Comment on above: Order Comment: Speci men Type: BLOOD SPECIMENOrdering Facility: [facility] Address: [address] [place] [address] Performed By: #### 3 024-7, 3016-3, 77274-1, 67051-4 ####[facility] [id number] [place] [address] [place] XR Chest PA and Lateralon IMPRESSION: No acute radiographic abnormality. Occupational Therapy Assist: DELIA Transcribe Date/Time: Nov 06 2023 8:54A Dictated by : ARIC TY DO This examination was interpreted and the report reviewed and electronically signed by: ARIC TY DO on Nov 06 2023 8:54AM [facility] DIVISION OF RADIOLOGY * * *Final Report* [...] soft tissues: Unremarkable. DIVISION OF RADIOLOGY Provider, [facility] Alicia [facility] - 11/06/2023 * * *Final Report* [...] Unremarkable. IMPRESSION IMPRESSION: No acute radiographic abnormality. Occupational Therapy Assist: DELIA Transcribe Date/Time: Nov 06 2023 8:54A Dictated by : ARIC TY DO This examination was interpreted and the report reviewed and electronically signed by: ARIC TY DO on Nov 06 2023 8:54AM EST [facility] Radiology Study observation (narrative) Ilir dotson [facility] XR Chest PA and LateralOrder ed By: [facility] Provider on 11-06-2023 [facility] URINE CULTUREon 07-28-2023 Bacteria identified Cx Nom (U) No growth (<1,000 CFU/ml) [facility] Comprehensive metabolic 2000 panelon 07-02-2023 Albumin [Mass/Vol] 3.8 g/dL Low 3.9 - 4.9 g/dL [facility] ALP [Catalytic activity/Vol] 97 U/L 34 - 123 U/L [facility] ALT [Catalytic activity/Vol] 15 U/L 7 - 38 U/L [facility] Anion gap [Moles/Vol] 13 mmol/L 9 - 18 mmol/L [facility] AST [Catalytic activity/Vol] 19 U/L 13 - 35 U/L [facility] Bilirubin [Mass/Vol] 1.1 mg/dL 0.2 - 1 .3 mg/dL [facility] Calcium [Mass/Vol] 8.8 mg/dL 8.5 - 10. 2 mg/dL [facility] Chloride [Moles/Vol] 93 mmol/L Low 97 - 10 5 mmol/L [facility] CO2 [Moles/Vol] 20 mmol/L Low 22 - 30 mmol/L [facility] Creatinine [Mass/Vol] 0.89 mg/dL 0.58 - 0.96 mg/dL [facility] Estimated Glomerular Filtration Rate 65 mL/min/1.73m >=60 mL/min/1.73m [facility] Glucose [Mass/Vol] 97 mg/dL 74 - 99 mg/dL [facility] Potassium [Moles/Vol] 4.6 mmol/L 3.7 - 5.1 mmol/L [facility] Protein [Mass/Vol] 6.1 g/dL Low 6.3 - 8.0 g/dL [facility] Sodium [Moles/Vol] 126 mmol/L Low 136 - 144 mmol/L [facility] Urea nitrogen [Mass/Vol] 9 mg/dL 7 - 21 mg/d L [facility] Absolute lymphocyte countOrd ered By: Josselyn Adhikari on 06-29-2023 Lymphocytes Auto (Unsp spec) [#/Vol] 1.63 10*3/uL 0.83-4.51 [facility] Basophil percentageOrdered B y: Josselyn Adhikari on 06-29-2023 Basophil percentage 0 SEEN /hpf 0-5 [facility] Basophils/100 WBC (Bld) 0.3 % 0-1 [facility] Chloride [Moles/Vol] 97 mmol/L 98-107 [facility] Eosinophils/100 WBC (Bld) 3.6 % 0-5 [facility] Glucose [Mass/Vol] 102 mg/dL 74-106 [facility] Comment on above: Fasting Glucose resu lt from 100 to 125 mg/dL suggests IMPAIRED HOMEOSTASIS per A.D.A. criteria. Neutrophils (Bld) [#/Vol] 6.1 10*3/uL 2.0-7.7 [facility] Neutrophils/100 WBC (Bld) 67.9 % 47-70 [facility] Potassium [Moles/Vol] 4.5 mmol/L 3.5-5.1 [facility] Sodium [Moles/Vol] 128 mmol/L 136-145 [facility] WBC (Bld) [#/Vol] 9.1 10*3/uL 4.4-11.0 [facility] Bilirubin Test strip Ql (U)O rdered By: Josselyn Adhikari on 06-29-2023 Bilirubin Ql (U) Negative Negative [facility] Blood erythrocytes count (nu mber/volume)Ordered By: Josselyn Adhikari on 06-29-2023 RBC (Bld) [#/Vol] 3.58 10*6/uL 4.2-5.4 [facility] Blood hemoglobin measurement (mass/volume)Ordered By: Josselyn Adhikari on 06-29-2023 Hemoglobin (Bld) [Mass/Vol] 10.9 g/dL 12.0-15.0 [facility] Blood lymphocytes/100 leukoc ytesOrdered By: Josselyn Adhikari on 06-29-2023 Lymphocytes/100 WBC (Bld) 18.0 % 19-41 [facility] Blood monocytes/100 leukocyt esOrdered By: Josselyn Adhikari on 06-29-2023 Monocytes/100 WBC (Bld) 9.5 % 0-10 [facility] Blood platelet mean volumeOr dered By: Josselyn Adhikari on 06-29-2023 Platelet mean volume (Bld) [Entitic vol] 9.1 fL 6.2-12.0 [facility] Determination of erythrocyte mean corpuscular volume (MCV)Ordered By: Josselyn Adhikari on 06-29-2023 MCV (RBC) [Entitic vol] 90.8 fL 81-99 [facility] Hematocrit Auto (Bld) [Volum e fraction]Ordered By: Josselyn Adhikari on 06-29-2023 Hematocrit (Bld) [Volume fraction] 32.5 % 37-47 [facility] Ketones Test strip Ql (U)Ord ered By: Josselyn Adhikari on 06-29-2023 Ketones Ql (U) Negative Negative [facility] - Chemistry and C hemistry - challengeOrdered By: Josselyn Adhikari on 06-29-2023 CO2 [Moles/Vol] 25.0 mmol/L 21.0-32.0 [facility] Urea nitrogen/Creatinine [Mass ratio] 11.9 mg/mg 10-20 [facility] - Hematology and Cell countsOrdered By: Josselyn Adhikari on 06-29-2023 Erythrocyte distribution width (RBC) [Entitic vol] 38.9 fL 35.1-43.9 [facility] Erythrocyte distribution width (RBC) [Ratio] 11.8 % 11.6-14.6 [facility] Immature granulocytes/100 WBC (Bld) 0.700 % 0.0-0.9 [facility] Comment on above: IG% - Immature Granu locytes (promyelocytes, myelocytes and metamyelocytes) > 1% indicates that a LEFT SHIFT is Present. MCH (RBC) [Entitic mass] 30.4 pg 27.0-32.0 [facility] Nucleated RBC/100 WBC (Bld) [Ratio] 0 % 0-5 [facility] MCHC Auto (RBC) [Mass/Vol]Or dered By: Josselyn Adhikari on 06-29-2023 MCHC (RBC) [Mass/Vol] 33.5 g/dL 32-36 [facility] Mucus LM Ql (Urine sed)Order ed By: Josselyn Adhikari on 06-29-2023 Mucus Ql (Urine sed) 0 SEEN /hpf [facility] Nitrite Test strip Ql (U)Ord ered By: Josselyn Finneyyordan on 06-29-2023 Nitrite Ql (U) Negative Negative [facility] No Panel InformationOrdered By: Josselyn Finneyyordan on 06-29-2023 Estimated Creatinine Clearance Calc 35.80 ml/min [facility] Estimated GFR (MDRD) Amer 75 mL/min >60 [facility] Comment on above: GFR Calc Estimated GFR (MDRD) Non-Af Amer 62 mL/min >60 [facility] Comment on above: Non- GFR Calc Troponin I High Sensitivity 8 pg/mL 3.0-54.0 [facility] Comment on above: Please Note: New Kimmy t Units and Gender Specific Reference Ranges. For more information see Policy Stat Procedure [place] High Sensitivity Troponin (TNIH) and attachments. Platelets bldOrdered By: Wendy Finneyyordan on 06-29-2023 Platelets (Bld) [#/Vol] 338 10*3/uL 150-450 [facility] Protein Test strip Ql (U)Ord ered By: Josselyn Finneyyordan on 06-29-2023 Protein Ql (U) Negative Negative [facility] Serum or plasma calcium lillie urement (mass/volume)Ordered By: Josselyn Finneyyordan on 06-29-2023 Calcium [Mass/Vol] 9.1 mg/dL 8.5-10.1 [facility] Serum or plasma creatinine m easurement (mass/volume)Ordered By: Josselyn Finneyyordan on 06-29-2023 Creatinine [Mass/Vol] 0.93 mg/dL 0.55-1.02 [facility] Comment on above: The validity of the calculated GFR & GFRAA in patients over 70 years has not been determined. Clinical correlation is essential. Serum or plasma urea nitroge n measurement (mass/volume)Ordered By: Josselyn Finneyyordan on 06-29-2023 Urea nitrogen [Mass/Vol] 11 mg/dL 7-18 [facility] Squamous epithelial cells de tection in urine sediment by light microscopyOrdered By: Josselyn Finneyyordan on 06-29-2023 Epithelial cells.squamous LM Ql (Urine sed) 0 SEEN /hpf 5-10 [facility] Thin prep Papanicolaou smear with manual screeningOrdered By: Josselyn Onofre on 06-29-2023 Thin prep Papanicolaou smear with manual screening 6 5-15 [facility] Urine blood detectionOrdered By: Josselyn Adhikari on 06-29-2023 RBC Ql (U) Negative Negative [facility] RBC Ql (U) 0 SEEN /hpf 0-5 [facility] Urine clarityOrdered By: Wendy Adhikari on 06-29-2023 Clarity (U) Clear Clear [facility] Urine color determinationOrd ered By: Josselyn Adhikari on 06-29-2023 Color (U) Yellow Yellow [facility] Urine glucose detectionOrder ed By: Josselyn Adhikari on 06-29-2023 Glucose Ql (U) Normal mg/dl Normal [facility] Urine leukocyte esterase det ection by dipstickOrdered By: Josselyn Adhikari on 06-29-2023 Leukocyte esterase Test strip Ql (U) 25 /ul Negative [facility] Urine pHOrdered By: Josselyn Chase gur on 06-29-2023 pH (U) 7.0 [pH] 5.0 - 8.0 [facility] Urine sediment bacteria coun t by microscopy (number/high power field)Ordered By: Josselyn Adhikari on 06-29-2023 Bacteria LM.HPF (Urine sed) [#/Area] 0 /[HPF] None Seen [facility] Urine specific gravity measu rementOrdered By: Josselyn Adhikari on 06-29-2023 Specific gravity (U) [Rel density] 1.005 1.002-1.030 [facility] Urobilinogen Auto test strip Ql (U)Ordered By: Josselyn Adhikari on 06-29-2023 Urobilinogen Ql (U) Normal mg/dl Normal [facility] CBC W Auto Differential pane l (Bld)on 06-16-2023 Basophils (Bld) [#/Vol] 0.05 10*3/uL <0.11 k/uL [facility] Basophils/100 WBC (Bld) 0.4 % [facility] Differential cell count method Nom (Bld) Auto [facility] Eosinophils (Bld) [#/Vol] 0.35 10*3/uL <0.46 k/uL [facility] Eosinophils/100 WBC (Bld) 2.8 % [facility] Erythrocyte distribution width (RBC) [Ratio] 11.9 % 11.5 - 15.0 % [facility] Hematocrit (Bld) [Volume fraction] 37.1 % 36.0 - 46.0 % [facility] Hemoglobin (Bld) [Mass/Vol] 12.4 g/dL 11.5 - 15.5 g/dL [facility] Immature granulocytes (Bld) [#/Vol] 0.05 10*3/uL <0.10 k/uL [facility] Immature granulocytes/100 WBC (Bld) 0.4 % [facility] Lymphocytes (Bld) [#/Vol] 2.24 10*3/uL 1.00 - 4.00 k/uL [facility] Lymphocytes/100 WBC (Bld) 18.1 % [facility] MCH (RBC) [Entitic mass] 30.5 pg 26. 0 - 34.0 pg [facility] MCHC (RBC) [Mass/Vol] 33.4 g/dL 30.5 - 36.0 g/dL [facility] MCV (RBC) [Entitic vol] 91.4 fL 80.0 - 100.0 fL [facility] Monocytes (Bld) [#/Vol] 1.18 10*3/uL High <0.87 k/uL [facility] Monocytes/100 WBC (Bld) 9.5 % [facility] Neutrophils (Bld) [#/Vol] 8.52 10*3/uL High 1.45 - 7.50 k/uL [facility] Neutrophils/100 WBC (Bld) 68.8 % [facility] Nucleated RBC (Bld) [#/Vol] <0.01 k/uL [facility] Nucleated RBC/100 WBC (Bld) [Ratio] 0.0 /100 WBC [facility] Platelet mean volume (Bld) [Entitic vol] 10.3 fL 9.0 - 12.7 fL [facility] Platelets (Bld) [#/Vol] 332 10*3/uL 150 - 400 k/uL [facility] RBC (Bld) [#/Vol] 4.06 10*6/uL 3.90 - 5.2 0 m/uL [facility] WBC (Bld) [#/Vol] 12.39 10*3/uL High 3.70 - 11 .00 k/uL [facility] Comprehensive metabolic 2000 panelon 06-16-2023 Albumin [Mass/Vol] 4.1 g/dL 3.9 - 4.9 g/dL [facility] ALP [Catalytic activity/Vol] 127 U/L High 34 - 123 U/L [facility] ALT [Catalytic activity/Vol] 14 U/L 7 - 38 U/L [facility] Anion gap [Moles/Vol] 15 mmol/L 9 - 18 mmol/L [facility] AST [Catalytic activity/Vol] 21 U/L 13 - 35 U/L [facility] Bilirubin [Mass/Vol] 1.2 mg/dL 0.2 - 1 .3 mg/dL [facility] Calcium [Mass/Vol] 9.6 mg/dL 8.5 - 10. 2 mg/dL [facility] Chloride [Moles/Vol] 95 mmol/L Low 97 - 10 5 mmol/L [facility] CO2 [Moles/Vol] 19 mmol/L Low 22 - 30 mmol/L [facility] Creatinine [Mass/Vol] 0.93 mg/dL 0.58 - 0.96 mg/dL [facility] Estimated Glomerular Filtration Rate 62 mL/min/1.73m >=60 mL/min/1.73m [facility] Glucose [Mass/Vol] 100 mg/dL High 74 - 99 mg/dL [facility] Potassium [Moles/Vol] 4.8 mmol/L 3.7 - 5.1 mmol/L [facility] Protein [Mass/Vol] 7.0 g/dL 6.3 - 8.0 g/dL [facility] Sodium [Moles/Vol] 129 mmol/L Low 136 - 144 mmol/L [facility] Urea nitrogen [Mass/Vol] 12 mg/dL 7 - 21 mg/d L [facility] UA DIP, URINE (POC)on 2022 BILIRUBIN UA (POCT) Negative Negative [facility] CLARITY UA (POCT) [facility] COLOR UA (POCT) Yellow [facility] GLUCOSE UA (POCT) Negative Negative mg/dL [facility] Hemoglobin Ql (U) Negative Negative [facility] KETONE UA (POCT) Negative Negative mg/dL [facility] LEUKOCYTES UA (POCT) Small Abnormal Negative [facility] NITRITE UA (POCT) Negative Negative [facility] PH UA (POCT) 6.5 4.5 - 8.0 [facility] Protein Ql (U) Negative Negative mg/[facility] SPECIFIC GRAVITY UA (POCT) 1.010 1.005 - 1.030 [facility] UROBILINOGEN UA (POCT) 0.2 E.U./dL Bre l E.U./dL [facility] UA DIP, URINE (POC)on 2022 BILIRUBIN UA (POCT) Negative Negative [facility] CLARITY UA (POCT) [facility] COLOR UA (POCT) Yellow [facility] GLUCOSE UA (POCT) Negative Negative mg/dL [facility] HEMOGLOBIN/BLOOD UA (POCT) Negative Negative [facility] KETONE UA (POCT) Negative Negative mg/dL [facility] LEUKOCYTES UA (POCT) Trace Abnormal Negative [facility] NITRITE UA (POCT) Negative Negative [facility] PH UA (POCT) 6.0 4.5 - 8.0 [facility] Protein Ql (U) Negative Negative mg/dL [facility] SPECIFIC GRAVITY UA (POCT) 1.010 1.005 - 1.030 [facility] UROBILINOGEN UA (POCT) 0.2 E.U./dL Bre l E.U./dL [facility] Absolute lymphocyte countOrd ered By: Frederick Carrasco on 03-20-2023 Lymphocytes Auto (Unsp spec) [#/Vol] 2.05 10*3/uL 0.83-4.51 [facility] Basophil percentageOrdered B y: Frederick Luna on 03-20-2023 Basophil percentage 10-25 SEEN /hpf 0-5 [facility] Basophils/100 WBC (Bld) 0.3 % 0-1 [facility] Chloride [Moles/Vol] 94 mmol/L 98-107 [facility] Eosinophils/100 WBC (Bld) 4.3 % 0-5 [facility] Glucose [Mass/Vol] 120 mg/dL 74-106 [facility] Comment on above: Fasting Glucose resu lt from 100 to 125 mg/dL suggests IMPAIRED HOMEOSTASIS per A.D.A. criteria. Neutrophils (Bld) [#/Vol] 5.8 10*3/uL 2.0-7.7 [facility] Neutrophils/100 WBC (Bld) 63.0 % 47-70 [facility] Potassium [Moles/Vol] 4.3 mmol/L 3.5-5.1 [facility] Sodium [Moles/Vol] 127 mmol/L 136-145 [facility] WBC (Bld) [#/Vol] 9.2 10*3/uL 4.4-11.0 [facility] Bilirubin Test strip Ql (U)O rdered By: Frederick Carrasco on 03-20-2023 Bilirubin Ql (U) Negative Negative [facility] Blood erythrocytes count (nu mber/volume)Ordered By: Frederick Carrasco on 03-20-2023 RBC (Bld) [#/Vol] 4.17 10*6/uL 4.2-5.4 [facility] Blood hemoglobin measurement (mass/volume)Ordered By: Frederick Carrasco on 03-20-2023 Hemoglobin (Bld) [Mass/Vol] 13.0 g/dL 12.0-15.0 [facility] Blood lymphocytes/100 leukoc ytesOrdered By: Frederick Carrasco on 03-20-2023 Lymphocytes/100 WBC (Bld) 22.2 % 19-41 [facility] Blood monocytes/100 leukocyt esOrdered By: Frederick Carrasco on 03-20-2023 Monocytes/100 WBC (Bld) 9.9 % 0-10 [facility] Blood platelet mean volumeOr dered By: Frederick Carrasco on 03-20-2023 Platelet mean volume (Bld) [Entitic vol] 8.6 fL 6.2-12.0 [facility] Culture, urineOrdered By: Raman Carrasco on 03-20-2023 Bacteria identified Cx Nom (U) Positive [facility] Determination of erythrocyte mean corpuscular volume (MCV)Ordered By: Frederick Carrasco on 03-20-2023 MCV (RBC) [Entitic vol] 89.2 fL 81-99 [facility] Hematocrit Auto (Bld) [Volum e fraction]Ordered By: Frederick Carrasco on 03-20-2023 Hematocrit (Bld) [Volume fraction] 37.2 % 37-47 [facility] Ketones Test strip Ql (U)Ord ered By: Frederick Carrasco on 03-20-2023 Ketones Ql (U) Negative Negative [facility] - Chemistry and C hemistry - challengeOrdered By: Frederick Carrasco on 03-20-2023 CO2 [Moles/Vol] 28.0 mmol/L 21.0-32.0 [facility] Urea nitrogen/Creatinine [Mass ratio] 11.9 mg/mg 10-20 [facility] - Hematology and Cell countsOrdered By: Frederick Carrasco on 03-20-2023 Erythrocyte distribution width (RBC) [Entitic vol] 37.2 fL 35.1-43.9 [facility] Erythrocyte distribution width (RBC) [Ratio] 11.5 % 11.6-14.6 [facility] Immature granulocytes/100 WBC (Bld) 0.300 % 0.0-0.9 [facility] Comment on above: IG% - Immature Granu locytes (promyelocytes, myelocytes and metamyelocytes) > 1% indicates that a LEFT SHIFT is Present. MCH (RBC) [Entitic mass] 31.2 pg 27.0-32.0 [facility] Nucleated RBC/100 WBC (Bld) [Ratio] 0 % 0-5 [facility] MCHC Auto (RBC) [Mass/Vol]Or dered By: Frederick Carrasco on 03-20-2023 MCHC (RBC) [Mass/Vol] 34.9 g/dL 32-36 [facility] Mucus LM Ql (Urine sed)Order ed By: Frederick Carrasco on 03-20-2023 Mucus Ql (Urine sed) 0 SEEN /hpf [facility] Nitrite Test strip Ql (U)Ord ered By: Frederick Carrasco on 03-20-2023 Nitrite Ql (U) Negative Negative [facility] No Panel InformationOrdered By: Frederick Carrasco on 03-20-2023 Estimated Creatinine Clearance Calc 30.54 ml/min [facility] Estimated GFR (MDRD) Amer 62 mL/min >60 [facility] Comment on above: GFR Calc Estimated GFR (MDRD) Non-Af Amer 51 mL/min >60 [facility] Comment on above: Non- GFR Calc Troponin I High Sensitivity 5 pg/mL 3.0-54.0 [facility] Comment on above: Please Note: New Kimmy t Units and Gender Specific Reference Ranges. For more information see Policy Stat Procedure [place] High Sensitivity Troponin (TNIH) and attachments. Platelets bldOrdered By: Katerina Carrasco on 03-20-2023 Platelets (Bld) [#/Vol] 353 10*3/uL 150-450 [facility] Protein Test strip Ql (U)Ord ered By: Frederick Carrasco on 03-20-2023 Protein Ql (U) Negative Negative [facility] Serum or plasma calcium lillie urement (mass/volume)Ordered By: Frederick Carrasco on 03-20-2023 Calcium [Mass/Vol] 9.3 mg/dL 8.5-10.1 [facility] Serum or plasma creatinine m easurement (mass/volume)Ordered By: Frederick Carrasco on 03-20-2023 Creatinine [Mass/Vol] 1.09 mg/dL 0.55-1.02 [facility] Comment on above: The validity of the calculated GFR & GFRAA in patients over 70 years has not been determined. Clinical correlation is essential. Serum or plasma urea nitroge n measurement (mass/volume)Ordered By: Frederick Carrasco on 03-20-2023 Urea nitrogen [Mass/Vol] 13 mg/dL 7-18 [facility] Squamous epithelial cells de tection in urine sediment by light microscopyOrdered By: Frederick Carrasco on 03-20-2023 Epithelial cells.squamous LM Ql (Urine sed) 0 SEEN /hpf 5-10 [facility] Thin prep Papanicolaou smear with manual screeningOrdered By: Frederick Carrasco on 03-20-2023 Thin prep Papanicolaou smear with manual screening 5 5-15 [facility] Urine blood detectionOrdered By: Frederick Carrasco on 03-20-2023 RBC Ql (U) Negative Negative [facility] RBC Ql (U) 0 SEEN /hpf 0-5 [facility] Urine clarityOrdered By: Katerina Carrasco on 03-20-2023 Clarity (U) Clear Clear [facility] Urine color determinationOrd ered By: Frederick Carrasco on 03-20-2023 Color (U) Yellow Yellow [facility] Urine glucose detectionOrder ed By: Frederick Carrasco on 03-20-2023 Glucose Ql (U) Normal mg/dl Normal [facility] Urine leukocyte esterase det ection by dipstickOrdered By: Frederick Carrasco on 03-20-2023 Leukocyte esterase Test strip Ql (U) 500 /ul Negative [facility] Urine pHOrdered By: Frederick yan on 03-20-2023 pH (U) 6.5 [pH] 5.0 - 8.0 [facility] Urine sediment bacteria coun t by microscopy (number/high power field)Ordered By: Frederick Carrasco on 03-20-2023 Bacteria LM.HPF (Urine sed) [#/Area] 1 /[HPF] None Seen [facility] Urine specific gravity measu rementOrdered By: Frederick Carrasco on 03-20-2023 Specific gravity (U) [Rel density] 1.005 1.002-1.030 [facility] Urobilinogen Auto test strip Ql (U)Ordered By: Frederick Carrasco on 03-20-2023 Urobilinogen Ql (U) Normal mg/dl Normal [facility] XR Lumbar spine 3 Viewson IMPRESSION: MULTILEVEL DEGENERATIVE CHANGE. 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 DEXTROSCOLIOSIS Occupational Therapy Assist: ROBERTS CHAPELClaudio Transcribe Date/Time: Dec 28 2022 4:30P Dictated by : REINALDO CALVERT MD This examination was interpreted and the report reviewed and electronically signed by: REINALDO CALVERT MD on Dec 28 2022 4:32PM [facility] DIVISION OF RADIOLOGY * * *Final Report* [...] and hips bilaterally. DIVISION OF RADIOLOGY Provider, [facility] Imagjes Jimenez - 12/28/2022 * * *Final Report* * [...] 1 SPONDYLOLISTHESIS OF L4 ON L5. DEXTROSCOLIOSIS Occupational Therapy Assist: PSCB Transcribe Date/Time: Dec 28 2022 4:30P Dictated by : REINALDO CALVERT MD This examination was interpreted and the report reviewed and electronically signed by: REINALDO CALVERT MD on Dec 28 2022 4:32PM EST [facility] XR Lumbar spine 3 ViewsOrder ed By: [facility] Provider on 12-28-2022 [facility] XR LUMBAR GENERAL 3V AP/LAT/ L5-S1on 12-25-2022 [facility] XR Lumbar spine 3 Viewson Radiology Study observation (narrative) [facility] UA DIP, URINE (POC)on 2021 BILIRUBIN UA (POCT) Negative Negative [facility] CLARITY UA (POCT) [facility] COLOR UA (POCT) Yellow [facility] GLUCOSE UA (POCT) Negative Negative mg/dL [facility] HEMOGLOBIN/BLOOD UA (POCT) Negative Negative [facility] KETONE UA (POCT) Negative Negative mg/dL [facility] LEUKOCYTES UA (POCT) Small Abnormal Negative [facility] NITRITE UA (POCT) Negative Negative [facility] PH UA (POCT) 6.5 4.5 - 8.0 [facility] Protein Ql (U) Negative Negative mg/dL [facility] SPECIFIC GRAVITY UA (POCT) 1.025 1.005 - 1.030 [facility] UROBILINOGEN UA (POCT) 0.2 E.U./dL Bre l E.U./dL [facility] MG Mammogram Digital Screeni ng Blon 02-24-2017 MG Mammogram Digital Screening Bl Patient Name: CASANDRA HENRY Mammography Exam Date/Time 02/24/2017 09:12:27 EDT Exam [facility] Mammogram Digital Screening Bl Ordering Physician DO GRANADO NICOLE LEE Accession Number [id number] CPT4 Codes 21429 () Reason For Exam Screening Report PATIENT [...] 2015, bilateral screening mammogram performed at [facility]. November 05, 2014, bilateral screening mammogram performed at [facility]. July 27, 2013, bilateral screening mammogram, performed at [facility]. There are scattered fibroglandular densities. No suspicious masses, architectural distortions or suspiciously clustered microcalcifications are identified. There are no significant changes when compared with prior studies. Markings on images: BB's = Nipples; skin lesions Open cheesh-na = Palpable Line = Scar 2D digital mammography imaging was performed and reviewed with CAD. ASSESSMENT: Category 1 Negative No mammographic evidence of malignancy. RECOMMENDATION: Routine screening mammogram of both breasts in 1 year. Final Signed Date and Time: 03/01/2017 11:44 am Signed by: MD VALLEJO LAUREN B Normal [facility] Vital Signs Date Time Vital Sign Value Performing Clinician Facility 04-04-2025 08:47-0400 Body height 154.[address] Sreekanth Cortez DO Work Phone: [phone])[phone] [place] [address] 04-04-2025 08:47-0400 Body mass index (BMI) [Ratio] 25.3 kg/m2 Dr. Sreekanth Cortez DO Work Phone: 9(117)680-258545 [place] [address] 04-04-2025 08:47-0400 Body weight 60.[address] Sreekanth Cortez DO Work Phone: 5(415)357-135945 [place] [address] 04-04-2025 08:47-0400 Diastolic blood pressure 69 mm[Hg] Dr. Sreekanth Cortez DO Work Phone: 9(194)934-000045 [place] [address] 04-04-2025 08:47-0400 Heart rate 93 /min Dr. Sreekanth Cortez DO Work Phone: 2(832)883-271645 [place] [address] 04-04-2025 08:47-0400 Respiratory rate 16 /min Dr. Sreekanth Cortez DO Work Phone: 5(221)061-464745 [place] [address] 04-04-2025 08:47-0400 Systolic blood pressure 108 mm[Hg] Dr. Sreekanth Cortez DO Work Phone: 7(219)083-352845 [place] [address] 04-02-2025 07:46-0400 Body temperature 98 [degF] Dr. Sreekanth Cortez DO Work Phone: 1(177)172-539245 [place] [address] 04-02-2025 07:46-0400 Diastolic blood pressure 67 mm[Hg] Dr. Sreekanth Cortez DO Work Phone: 7(765)[phone] [place] [address] 04-02-2025 07:46-0400 Heart rate 78 /min Dr. Sreekanth Cortez DO Work Phone: 5(519)738-433045 [place] [address] 04-02-2025 07:46-0400 Respiratory rate 16 /min Dr. Sreekanth Cortez DO Work Phone: 0(493)[phone] [place] [address] 04-02-2025 07:46-0400 SaO2% (BldA) [Mass fraction] 99 % Dr. Sreekanth Cortez DO Work Phone: 1(114)279-745547 [place] [address] 04-02-2025 07:46-0400 Systolic blood pressure 177 mm[Hg] Dr. Sreekanth Cortez DO Work Phone: [facility] 04-02-2025 05:38-0400 Body height 154.[address] Sreekanth Cortez DO Work Phone: [facility] 04-02-2025 05:38-0400 Body mass index (BMI) [Ratio] 25.9 kg/m2 Dr. Sreekanth Cortez DO Work Phone: [facility] 04-02-2025 05:38-0400 Body weight 62.[address] Sreekanth Cortez DO Work Phone: [facility] 2025 11:14-0400 Body mass index (BMI) [Ratio] 25.2 kg/m2 [employer] [employer] Work Phone: [facility] 2025 11:14-0400 Body weight 62.51 kg Margoth Scott [employer] Work Phone: [facility] 2025 11:14-0400 Diastolic blood pressure 62 mm[Hg] Marg[facility] Scott [employer] Work Phone: [facility] 2025 11:14-0400 Heart rate 88 /min Marg[facility] Scott [employer] Work Phone: [facility] 2025 11:14-0400 Respiratory rate 12 /min Marg[facility] Scott [employer] Work Phone: [facility] 2025 11:14-0400 SaO2% (BldA) [Mass fraction] 98 % Margoth Scott [employer] Work Phone: [facility] 2025 11:14-0400 Systolic blood pressure 120 mm[Hg] Margoth Scott [employer] Work Phone: [facility] 02-26-2025 09:07-0400 Body mass index (BMI) [Ratio] 25.72 kg/m2 Marg[facility] Scott [employer] Work Phone: [facility] 02-26-2025 09:07-0400 Body weight 63.78 kg Margoth Averyo [employer] Work Phone: [facility] 02-26-2025 09:07-0400 Diastolic blood pressure 80 mm[Hg] Margoth Averyo [employer] Work Phone: [facility] 02-26-2025 09:07-0400 Heart rate 75 /min Margothrod Averyo [employer] Work Phone: [facility] 02-26-2025 09:07-0400 SaO2% (BldA) [Mass fraction] 96 % Margoth Averyo [employer] Work Phone: [facility] 02-26-2025 09:07-0400 Systolic blood pressure 170 mm[Hg] Margoth Averyo [employer] Work Phone: [facility] 02-22-2025 08:03-0400 Body temperature 97.8 [degF] Dr. Sreekanth Cortez DO Work Phone: [facility] 02-22-2025 08:03-0400 Diastolic blood pressure 77 mm[Hg] Dr. Sreekanth Cortez DO Work Phone: [facility] 02-22-2025 08:03-0400 Heart rate 74 /min Dr. Sreekanth Cortez DO Work Phone: [facility] 02-22-2025 08:03-0400 Respiratory rate 16 /min Dr. Sreekanth Cortez DO Work Phone: [facility] 02-22-2025 08:03-0400 SaO2% (BldA) [Mass fraction] 99 % Dr. Sreekanth Cortez DO Work Phone: [facility] 02-22-2025 08:03-0400 Systolic blood pressure 148 mm[Hg] Dr. Sreekanth Cortez DO Work Phone: [facility] 02-22-2025 06:07-0400 Body height 154.[address] Sreekanth Cortez DO Work Phone: [facility] 02-22-2025 06:07-0400 Body mass index (BMI) [Ratio] 26.4 kg/m2 Dr. Sreekanth Cortez DO Work Phone: [facility] 02-22-2025 06:07-0400 Body weight 63.[address] Sreekanth Cortez DO Work Phone: [facility] 02-19-2025 13:22-0400 Diastolic blood pressure 80 mm[Hg] [employer] Scott [employer] ROOFER.[employer] BU[employer]ER Work Phone: [facility] 02-19-2025 13:22-0400 Systolic blood pressure 170 mm[Hg] Margoth Scott COMPOSITION ROOFER.[employer] BU[employer]ER Work Phone: [facility] 02-19-2025 12:35-0400 Body mass index (BMI) [Ratio] 26.25 kg/m2 Margoth Scott COMPOSITION ROOFER.[employer] BU[employer]ER Work Phone: [facility] 02-19-2025 12:35-0400 Body weight 64.05 kg Margoth Scott COMPOSITION ROOFER.[employer] BU[employer]ER Work Phone: [facility] 02-19-2025 12:35-0400 Heart rate 68 /min Margoth Scott COMPOSITION ROOFER.[employer] BU[employer]ER Work Phone: [facility] 02-19-2025 12:35-0400 Respiratory rate 16 /min Margoth Scott COMPOSITION ROOFER.[employer] BU[employer]ER Work Phone: [facility] 02-19-2025 12:35-0400 SaO2% (BldA) [Mass fraction] 98 % Margoth Scott COMPOSITION ROOFER.[employer] BU[employer]ER Work Phone: [facility] 02-05-2025 08:41-0400 Body mass index (BMI) [Ratio] 26.4 kg/m2 Sreekanth Cortez DO Work Phone: [facility] 02-05-2025 08:41-0400 Body temperature 98.71 [degF] Sreekanth Cortez DO Work Phone: [facility] 02-05-2025 08:41-0400 Body weight 64.41 kg Sreekanth Cortez DO Work Phone: [facility] 02-05-2025 08:41-0400 Diastolic blood pressure 80 mm[Hg] Sreekanth Cortez DO Work Phone: [facility] 02-05-2025 08:41-0400 Heart rate 84 /min Sreekanth Cortez DO Work Phone: [facility] 02-05-2025 08:41-0400 Respiratory rate 20 /min Sreekanth Cortez DO Work Phone: [facility] 02-05-2025 08:41-0400 Systolic blood pressure 180 mm[Hg] Sreekanth Cortez DO Work Phone: [facility] 12-25-2024 13:45-0400 Diastolic blood pressure 87 mm[Hg] Maribeth Podlogar COMPOSITION ROOFER.[employer] BU[employer]ER Work Phone: [facility] Comment on above: ANTONIETA BP average 12-25-2024 13:45-0400 Heart rate 71 /min Maribeth Podlogar COMPOSITION ROOFER.[employer] BU[employer]ER Work Phone: [facility] 12-25-2024 13:45-0400 Systolic blood pressure 199 mm[Hg] Maribeth Podlogar COMPOSITION ROOFER.[employer] BU[employer]ER Work Phone: [facility] Comment on above: ANTONIETA BP average 12-25-2024 13:16-0400 Body mass index (BMI) [Ratio] 26.28 kg/m2 Maribeth Podlogar COMPOSITION ROOFER.[employer] BU[employer]ER Work Phone: [facility] 12-25-2024 13:16-0400 Body weight 64.14 kg Maribeth Podlogar COMPOSITION ROOFER.[employer] BU[employer]ER Work Phone: [facility] 12-25-2024 13:16-0400 Respiratory rate 18 /min Maribeth Podlogar COMPOSITION ROOFER.[employer] BU[employer]ER Work Phone: [facility] 12-25-2024 13:16-0400 SaO2% (BldA) [Mass fraction] 96 % Maribeth Podlogar COMPOSITION ROOFER.[employer] BU[employer]ER Work Phone: [facility] 08-08-2024 08:52-0500 Body mass index (BMI) [Ratio] 26.77 kg/m2 Sreekanth Cortez DO Work Phone: [facility] 08-08-2024 08:52-0500 Body temperature 97.5 [degF] Sreekanth Cortez DO Work Phone: [facility] 08-08-2024 08:52-0500 Body weight 65.32 kg Sreekanth Cortez DO Work Phone: [facility] 08-08-2024 08:52-0500 Diastolic blood pressure 80 mm[Hg] Sreekanth Cortez DO Work Phone: [facility] 08-08-2024 08:52-0500 Heart rate 80 /min Sreekanth Cortez DO Work Phone: [facility] 08-08-2024 08:52-0500 Respiratory rate 16 /min Sreekanth Cortez DO Work Phone: [facility] 08-08-2024 08:52-0500 Systolic blood pressure 140 mm[Hg] Sreekanth Cortez DO Work Phone: [facility] 04-28-2024 08:22-0400 Diastolic blood pressure 80 mm[Hg] Sergei Zurdo COMPOSITION ROOFER.[employer] BU[employer]ER Work Phone: [facility] Comment on above: bp antonieta average 04-28-2024 08:22-0400 Systolic blood pressure 154 mm[Hg] Sergei Zurdo COMPOSITION ROOFER.[employer] BU[employer]ER Work Phone: [facility] Comment on above: bp antonieta average 04-28-2024 07:35-0400 Body mass index (BMI) [Ratio] 25.88 kg/m2 Sergei Zurdo COMPOSITION ROOFER.[employer] BU[employer]ER Work Phone: [facility] 04-28-2024 07:35-0400 Body weight 63.14 kg Sergei Zurdo COMPOSITION ROOFER.[employer] BU[employer]ER Work Phone: [facility] 04-28-2024 07:35-0400 Heart rate 66 /min Sergei Zurdo COMPOSITION ROOFER.[employer] BU[employer]ER Work Phone: [facility] 04-28-2024 07:35-0400 Respiratory rate 16 /min Sergei Renner COMPOSITION ROOFER.[employer] BU[employer]ER Work Phone: [facility] 04-28-2024 07:35-0400 SaO2% (BldA) [Mass fraction] 97 % Sergei Renner APRN.PULPWOOD BUYER Work Phone: [facility] 03-23-2024 08:11-0400 Body height 156.2 cm Delilah Calvofitkylah DO Work Phone: [facility] 03-23-2024 08:11-0400 Body mass index (BMI) [Ratio] 25.82 kg/m2 Delilah Calvofitkylah DO Work Phone: [facility] 03-23-2024 08:11-0400 Body weight 63 kg Delilah Calvofitkylah DO Work Phone: [facility] 03-23-2024 08:11-0400 Diastolic blood pressure 90 mm[Hg] Delilah Calvofitkylah DO Work Phone: [facility] 03-23-2024 08:11-0400 Heart rate 67 /min Delilah Calvofitkylah DO Work Phone: [facility] 03-23-2024 08:11-0400 SaO2% (BldA) [Mass fraction] 97 % Delilah Calvofitkylah DO Work Phone: [facility] 03-23-2024 08:11-0400 Systolic blood pressure 152 mm[Hg] Delilah Calvofitkylah DO Work Phone: [facility] 02-14-2024 09:52-0400 Body mass index (BMI) [Ratio] 25.84 kg/m2 Sreekanth Echavarriarison DO Work Phone: [facility] 02-14-2024 09:52-0400 Body temperature 97.3 [degF] Sreekanth Echavarriarison DO Work Phone: [facility] 02-14-2024 09:52-0400 Body weight 63.05 kg Sreekanth Cortez DO Work Phone: [facility] 02-14-2024 09:52-0400 Diastolic blood pressure 90 mm[Hg] Sreekanth Cortez DO Work Phone: [facility] 02-14-2024 09:52-0400 Heart rate 64 /min Sreekanth Cortez DO Work Phone: [facility] 02-14-2024 09:52-0400 Respiratory rate 16 /min Sreekanth Cortez DO Work Phone: [facility] 02-14-2024 09:52-0400 Systolic blood pressure 160 mm[Hg] Sreekanth Cortez DO Work Phone: [facility] 11-24-2023 08:19-0400 Body height 156.2 cm Gabi More APRN.[employer]PWO[employer] BUYER Work Phone: [facility] 11-24-2023 08:19-0400 Body weight 62.6 kg Gabi More APRN.[employer] BUYER Work Phone: [facility] 11-24-2023 08:19-0400 Diastolic blood pressure 80 mm[Hg] Gabi More APRN.P[employer]WO[employer] BUYER Work Phone: [facility] 11-24-2023 08:19-0400 Heart rate 71 /min Gabi More APRN.[employer] BUYER Work Phone: [facility] 11-24-2023 08:19-0400 SaO2% (BldA) [Mass fraction] 97 % Gabi More APRN.P[employer]WO[employer] BUYER Work Phone: [facility] 11-24-2023 08:19-0400 Systolic blood pressure 176 mm[Hg] Gabi More APRN.P[employer]WOOD BUYER Work Phone: [facility] 11-06-2023 08:19-0400 Body temperature 98.6 [degF] Justice Gaines PA Work Phone: [facility] 11-06-2023 08:19-0400 Body weight 63.1 kg Justice Johngg PA Work Phone: [facility] 11-06-2023 08:19-0400 Diastolic blood pressure 76 mm[Hg] Krislyn Aberegg PA Work Phone: [facility] 11-06-2023 08:19-0400 Heart rate 94 /min Krislyn Aberegg PA Work Phone: [facility] 11-06-2023 08:19-0400 Respiratory rate 16 /min Krislyn Aberegg PA Work Phone: [facility] 11-06-2023 08:19-0400 SaO2% (BldA) [Mass fraction] 95 % Krislyn Aberegg PA Work Phone: [facility] 11-06-2023 08:19-0400 Systolic blood pressure 124 mm[Hg] Krislyn Aberegg PA Work Phone: [facility] 10-27-2023 13:01-0500 Body temperature 98.49 [degF] Sreekanth Cortez DO Work Phone: [facility] 10-27-2023 13:01-0500 Body weight 62.14 kg Sreekanth Cortez DO Work Phone: [facility] 10-27-2023 13:01-0500 Diastolic blood pressure 88 mm[Hg] Sreekanth Cortez DO Work Phone: [facility] 10-27-2023 13:01-0500 Heart rate 80 /min Sreekanth Cortze DO Work Phone: [facility] 10-27-2023 13:01-0500 Respiratory rate 20 /min Sreekanth Cortez DO Work Phone: [facility] 10-27-2023 13:01-0500 Systolic blood pressure 146 mm[Hg] Sreekanth Cortez DO Work Phone: [facility] 10-07-2023 07:46-0500 Body weight 62.32 kg Donita Estes COMPOSITION ROOFER.[employer] BU[employer]ER Work Phone: [facility] 10-07-2023 07:46-0500 Diastolic blood pressure 64 mm[Hg] Donita Estes COMPOSITION ROOFER.[employer] BUYER Work Phone: [facility] 10-07-2023 07:46-0500 Heart rate 76 /min Donita Estes COMPOSITION ROOFER.[employer] BUYER Work Phone: [facility] 10-07-2023 07:46-0500 Respiratory rate 16 /min Donita Estes COMPOSITION ROOFER.[employer] BUYER Work Phone: [facility] 10-07-2023 07:46-0500 SaO2% (BldA) [Mass fraction] 98 % Donita Estes COMPOSITION ROOFER.[employer] BUYER Work Phone: [facility] 10-07-2023 07:46-0500 Systolic blood pressure 138 mm[Hg] Donita Estes COMPOSITION ROOFER.[employer]WO[employer] BUYER Work Phone: [facility] 07-21-2023 07:13-0500 Body weight 62.87 kg Donita Estes COMPOSITION ROOFER.[employer] BUYER Work Phone: [facility] 07-21-2023 07:13-0500 Diastolic blood pressure 60 mm[Hg] Donita Estes COMPOSITION ROOFER.[employer] BUYER Work Phone: [facility] 07-21-2023 07:13-0500 Heart rate 80 /min Donita Estes COMPOSITION ROOFER.[employer] BUYER Work Phone: [facility] 07-21-2023 07:13-0500 Respiratory rate 14 /min Donita Estes COMPOSITION ROOFER.[employer] BUYER Work Phone: [facility] 07-21-2023 07:13-0500 SaO2% (BldA) [Mass fraction] 98 % Donita Estes COMPOSITION ROOFER.[employer] BUYER Work Phone: [facility] 07-21-2023 07:13-0500 Systolic blood pressure 138 mm[Hg] Donita Estes COMPOSITION ROOFER.[employer] BUYER Work Phone: [facility] 07-05-2023 14:01-0500 Body temperature 98.91 [degF] Sreekanth Cortez DO Work Phone: [facility] 07-05-2023 14:01-0500 Body weight 63.5 kg Sreekanth Cortez DO Work Phone: [facility] 07-05-2023 14:01-0500 Diastolic blood pressure 84 mm[Hg] Sreekanth Cortez DO Work Phone: [facility] 07-05-2023 14:01-0500 Heart rate 80 /min Sreekanth Cortez DO Work Phone: [facility] 07-05-2023 14:01-0500 Respiratory rate 16 /min Sreekanth Cortez DO Work Phone: [facility] 07-05-2023 14:01-0500 Systolic blood pressure 138 mm[Hg] Sreekanth Cortez DO Work Phone: [facility] 06-29-2023 15:17-0500 Heart rate 78 /min [facility] 06-29-2023 15:17-0500 Respiratory rate 18 /min [facility] 06-29-2023 15:17-0500 SaO2% (BldA) [Mass fraction] 98 % [facility] 06-29-2023 11:38-0500 Diastolic blood pressure 68 mm[Hg] [facility] 06-29-2023 11:38-0500 Systolic blood pressure 151 mm[Hg] [facility] 06-29-2023 10:47-0500 Body height 154.94 cm [facility] 06-29-2023 10:47-0500 Body mass index (BMI) [Ratio] 26.6 kg/m2 [facility] 06-29-2023 10:47-0500 Body temperature 96.5 [degF] [facility] 06-29-2023 10:47-0500 Body weight 63.95 kg [facility] 06-16-2023 08:27-0400 Body weight 63.14 kg Donita Franklyn COTTRELLN.PULPWOOD BUYER Work Phone: [facility] 06-16-2023 08:27-0400 Diastolic blood pressure 60 mm[Hg] Donitabilly Estes COMPOSITION ROOFER.[employer] BUYER Work Phone: [facility] 06-16-2023 08:27-0400 Heart rate 68 /min Donita Estes COMPOSITION ROOFER.[employer] BUYER Work Phone: [facility] 06-16-2023 08:27-0400 Respiratory rate 16 /min Donita Estes COMPOSITION ROOFER.[employer] BUYER Work Phone: [facility] 06-16-2023 08:27-0400 Systolic blood pressure 142 mm[Hg] Donita Estes COMPOSITION ROOFER.[employer] BUYER Work Phone: [facility] 05-17-2023 15:03-0400 Body weight 63.5 kg Donita Estes COMPOSITION ROOFER.[employer] BUYER Work Phone: [facility] 05-17-2023 15:03-0400 Diastolic blood pressure 60 mm[Hg] Donita Estes COMPOSITION ROOFER.[employer]WO[employer] BUYER Work Phone: [facility] 05-17-2023 15:03-0400 Heart rate 100 /min Donita Estes COMPOSITION ROOFER.[employer] BUYER Work Phone: [facility] 05-17-2023 15:03-0400 Respiratory rate 16 /min Donita Estes COMPOSITION ROOFER.[employer] BUYER Work Phone: [facility] 05-17-2023 15:03-0400 Systolic blood pressure 130 mm[Hg] Donita Estes COMPOSITION ROOFER.[employer]WO[employer] BUYER Work Phone: [facility] 03-31-2023 17:35-0400 Body temperature 97.5 [degF] Sreekanth Cortez DO Work Phone: [facility] 03-31-2023 17:35-0400 Body weight 63.5 kg Sreekanth Cortez DO Work Phone: [facility] 03-31-2023 17:35-0400 Diastolic blood pressure 70 mm[Hg] Sreekanth Cortez DO Work Phone: [facility] 03-31-2023 17:35-0400 Heart rate 80 /min Sreekanth Cortez DO Work Phone: [facility] 03-31-2023 17:35-0400 Respiratory rate 16 /min Sreekanth Cortez DO Work Phone: [facility] 03-31-2023 17:35-0400 Systolic blood pressure 134 mm[Hg] Sreekanth Cortez DO Work Phone: [facility] 03-20-2023 19:13-0400 Body temperature 98 [degF] [facility] 03-20-2023 19:13-0400 Diastolic blood pressure 68 mm[Hg] [facility] 03-20-2023 19:13-0400 Heart rate 70 /min [facility] 03-20-2023 19:13-0400 Respiratory rate 14 /min [facility] 03-20-2023 19:13-0400 Systolic blood pressure 143 mm[Hg] [facility] 03-20-2023 17:10-0400 Body height 154.94 cm [facility] 03-20-2023 17:10-0400 Body mass index (BMI) [Ratio] 26.2 kg/m2 [facility] 03-20-2023 17:10-0400 Body weight 62.91 kg [facility] 03-20-2023 17:10-0400 SaO2% (BldA) [Mass fraction] 95 % [facility] 03-15-2023 07:45-0400 Body height 157 cm Sreekanth Cortez DO Work Phone: [facility] 03-15-2023 07:45-0400 Body temperature 97.11 [degF] Sreekanth Cortez DO Work Phone: [facility] 03-15-2023 07:45-0400 Body weight 63.05 kg Sreekanth Cortez DO Work Phone: [facility] 03-15-2023 07:45-0400 Diastolic blood pressure 80 mm[Hg] Sreekanth Cortez DO Work Phone: [facility] 03-15-2023 07:45-0400 Heart rate 60 /min Sreekanth Cortez DO Work Phone: [facility] 03-15-2023 07:45-0400 Respiratory rate 16 /min Sreekanth Cortez DO Work Phone: [facility] 03-15-2023 07:45-0400 Systolic blood pressure 138 mm[Hg] Sreekanth Cortez DO Work Phone: [facility] 03-10-2023 10:27-0400 Diastolic blood pressure 71 mm[Hg] Marilyn SIMPSON-C Work Phone: [facility] 03-10-2023 10:27-0400 Heart rate 66 /min Marilyn SIMPSON-C Work Phone: [facility] 03-10-2023 10:27-0400 Systolic blood pressure 133 mm[Hg] Marilyn SIMPSON-C Work Phone: [facility] 03-10-2023 09:56-0400 Body temperature 98.6 [degF] Marilyn SIMPSON-C Work Phone: [facility] 03-10-2023 09:56-0400 Body weight 62.6 kg Marilyn SIMPSON-C Work Phone: [facility] 03-10-2023 09:56-0400 Respiratory rate 16 /min Marilyn SIMPSON-C Work Phone: [facility] 03-10-2023 09:56-0400 SaO2% (BldA) [Mass fraction] 96 % Marilyn SIMPSON-C Work Phone: [facility] 12-25-2022 14:40-0400 Diastolic blood pressure 80 mm[Hg] Sreekanth Cortez DO Work Phone: [facility] 12-25-2022 14:40-0400 Systolic blood pressure 150 mm[Hg] Sreekanth Cortez DO Work Phone: [facility] 12-25-2022 13:45-0400 Body temperature 97 [degF] Sreekanth Cortez DO Work Phone: [facility] 12-25-2022 13:45-0400 Body weight 64.86 kg Sreekanth Cortez DO Work Phone: [facility] 12-25-2022 13:45-0400 Heart rate 72 /min Sreekanth Cortez DO Work Phone: [facility] 12-25-2022 13:45-0400 Respiratory rate 16 /min Sreekanth Cortez DO Work Phone: [facility] 08-31-2022 09:14-0500 Body temperature 98.49 [degF] Sreekanth Cortez DO Work Phone: [facility] 08-31-2022 09:14-0500 Body weight 65.32 kg Sreekanth Cortez DO Work Phone: [facility] 08-31-2022 09:14-0500 Diastolic blood pressure 94 mm[Hg] Sreekanth Cortez DO Work Phone: [facility] 08-31-2022 09:14-0500 Heart rate 76 /min Sreekanth Cortez DO Work Phone: [facility] 08-31-2022 09:14-0500 Respiratory rate 20 /min Sreekanth Cortez DO Work Phone: [facility] 08-31-2022 09:14-0500 Systolic blood pressure 138 mm[Hg] Sreekanth Cortez DO Work Phone: [facility] 07-08-2022 07:44-0500 Body weight 64.77 kg Sergei Zurdo COMPOSITION ROOFER.[employer] BU[employer]ER Work Phone: [facility] 07-08-2022 07:44-0500 Diastolic blood pressure 82 mm[Hg] Sergei Zurdo COMPOSITION ROOFER.[employer] BUYER Work Phone: [facility] 07-08-2022 07:44-0500 Heart rate 70 /min Sergei Zurdo COMPOSITION ROOFER.[employer] BUYER Work Phone: [facility] 07-08-2022 07:44-0500 Respiratory rate 16 /min Sergei Zurdo COMPOSITION ROOFER.[employer] BUYER Work Phone: [facility] 07-08-2022 07:44-0500 SaO2% (BldA) [Mass fraction] 96 % Sergei Zurdo COMPOSITION ROOFER.[employer] BUYER Work Phone: [facility] 07-08-2022 07:44-0500 Systolic blood pressure 130 mm[Hg] Sergei Zurdo COMPOSITION ROOFER.[employer] BUYER Work Phone: [facility] 04-06-2022 15:12-0400 Body temperature 98.2 [degF] Yann French MD Work Phone: [facility] 04-06-2022 15:12-0400 Body weight 66.59 kg Yann French MD Work Phone: [facility] 04-06-2022 15:12-0400 Diastolic blood pressure 84 mm[Hg] Yann French MD Work Phone: [facility] 04-06-2022 15:12-0400 Heart rate 85 /min Yann French MD Work Phone: [facility] 04-06-2022 15:12-0400 Respiratory rate 21 /min Yann French MD Work Phone: [facility] 04-06-2022 15:12-0400 SaO2% (BldA) [Mass fraction] 99 % Yann French MD Work Phone: [facility] 04-06-2022 15:12-0400 Systolic blood pressure 122 mm[Hg] Yann French MD Work Phone: [facility] 02-25-2022 11:26-0400 Diastolic blood pressure 60 mm[Hg] Donita Zurtanishack COMPOSITION ROOFER.[employer] BU[employer]ER Work Phone: [facility] 02-25-2022 11:26-0400 Heart rate 100 /min Donita Gonzales COMPOSITION ROOFER.[employer] BUYER Work Phone: [facility] 02-25-2022 11:26-0400 Systolic blood pressure 136 mm[Hg] Donita Zurawick COMPOSITION ROOFER.[employer] BUYER Work Phone: [facility] 02-25-2022 10:50-0400 Body height 153 cm Donita Zursadie COMPOSITION ROOFER.[employer] BUYER Work Phone: [facility] 02-25-2022 10:50-0400 Body weight 64.45 kg Donita Zurawick COMPOSITION ROOFER.[employer] BUYER Work Phone: [facility] 02-25-2022 10:50-0400 Respiratory rate 16 /min Donita Gonzales APRN.[employer] BUYER Work Phone: [facility] Encounters Encounter Date Encounter Type Care Provider Facility Start: 04-14-2025 ambulatory [facility] Facility:[facility] Start: 04-09-2025 ambulatory [facility] Facility:[facility] Start: 04-04-2025 End: 04-06-2025 Telephone encounter Sreekanth Cortez DO Work Phone: [facility] Start: 04-04-2025 End: 04-04-[address] Sidney Lewis MD -[facility] Work Phone: Start: 04-04-2025 End: 04-04-[address] Sreekanth Cortez DO Work Phone: -[facility] Start: 04-02-2025 End: 04-03-2025 Follow-up encounter Marilyn Gutierrez PA-C Work Phone: [facility] Start: 04-02-2025 End: 04-02-2025 ambulatory SREEKANTH CORTEZ Facility:[facility] Start: 04-02-2025 End: 04-02-2025 Emergency department patient visit Dr. Sreekanth Cortez DO Work Phone: -Emergency Department Work Phone: Start: 03-30-2025 End: 04-11-2025 Follow-up encounter Margoth Chavez APRN.[employer] BUYER Work Phone: [facility] Start: 03-28-2025 End: 03-28-2025 ambulatory SREEKANTH CORTEZ Facility:[facility] Start: 03-28-2025 End: 03-28-2025 ambulatory MARILYN GUTIERREZ Facility:[facility] Start: 03-17-2025 End: 03-21-2025 Telephone encounter Sreekanth Cortez DO Work Phone: [facility] Comment on above: Patient Question (He art rate) Start: 2025 End: 2025 Office outpatient visit 25 minutes Margoth Chavez APRN.[employer] BUYER Work Phone: [facility] Comment on above: Hypertension, essent ial (Primary Dx); Hyponatremia; Screening for depression; Encounter for screening examination for other mental health and behavioral disorders Start: 2025 End: 2025 ambulatory SREEKANTH CORTEZ Facility:[facility] Start: 03-08-2025 End: 03-08-2025 Telephone encounter Sreekanth Jimeneson DO Work Phone: [facility] Comment on above: Transition Of Care Start: 03-08-2025 End: 03-08-2025 ambulatory SREEKANTH CORTEZ Facility:[facility] Start: 02-28-2025 End: 02-28-2025 Telephone encounter Sreekanth Jimeneson DO Work Phone: [facility] Comment on above: Transition Of Care Start: 02-26-2025 End: 02-26-2025 Office outpatient visit 25 minutes Margoth Chavez APRN.[employer] BU[employer]ER Work Phone: [facility] [place] Comment on above: Hyponatremia (Primar y Dx); Hypertension, essential Start: 02-26-2025 End: 02-26-2025 ambulatory SREEKANTH CORTEZ Facility:[facility] Start: 02-24-2025 End: 02-25-2025 ambulatory SREEKANTH ECHAVARRIARISON Facility:[facility] Start: 02-22-2025 End: 02-22-2025 Emergency department patient visit Dr. Sreekanth Cortez DO Work Phone: -Emergency Department Work Phone: Start: 02-19-2025 End: 02-19-2025 ambulatory SREEKANTH CORTEZ Facility:[facility] Start: 02-19-2025 End: 02-19-2025 Office outpatient visit 25 minutes Margoth Chavez APRN.[employer] BU[employer]ER Work Phone: [facility] Comment on above: Labile blood pressur e (Primary Dx); Hypertension, essential; Hyponatremia; Fatigue, unspecified type Start: 02-19-2025 End: 02-19-2025 ambulatory MARGOTH CHAVEZ Facility:[facility] Start: 02-05-2025 End: 02-05-2025 Patient encounter procedure Sreekanth Cortez DO Work Phone: [facility] [place] Comment on above: Hypertension, essent ial (Primary Dx); Stage 3a chronic kidney disease (HCC); Hypothyroidism, unspecified type; Fatigue, unspecified type; Dyslipidemia; Hyponatremia Start: 02-05-2025 End: 02-05-2025 ambulatory SREEKANTH CORTEZ Facility:[facility] Start: 12-25-2024 End: 12-25-2024 Telephone encounter Marilyn Gutierrez PA-C Work Phone: [facility] [place] Comment on above: Patient Update; Appo intment Start: 12-25-2024 End: 12-25-2024 Patient encounter procedure Maribeth Griffiths APRN.CNP Work Phone: [facility] [place] Comment on above: Hypertension, essent ial (Primary Dx) Start: 12-25-2024 End: 12-25-2024 ambulatory MARIBETH PODLOGAR Facility:[facility] Start: 11-21-2024 End: 11-21-2024 Follow-up encounter Sergei Renner APRN.[employer] BU[employer]ER Work Phone: [facility] [place] Comment on above: Results Start: 11-21-2024 End: 11-28-2024 Telephone encounter Sreekanth Cortez DO Work Phone: [facility] [place] Comment on above: Patient Update (BP r eadings) Start: 11-16-2024 End: 11-16-2024 ambulatory SREEKANTH CORTEZ Facility:[facility] Start: 11-09-2024 End: 11-09-2024 Refill Sreekanth Cortez DO Work Phone: [address] [place] [address] Comment on above: Refill Request Start: 10-11-2024 End: 10-11-2024 Refill Sreekanth Jimeneson DO Work Phone: [facility] [place] Comment on above: Refill Request Start: 08-08-2024 End: 08-08-2024 Patient encounter procedure Sreekanth Cortez DO Work Phone: [facility] [place] Comment on above: Hypothyroidism, unsp ecified type (Primary Dx); Hypertension, essential; Stage 3a chronic kidney disease (HCC); Other iron deficiency anemia; Dyslipidemia; Vitamin D deficiency; Fatigue, unspecified type; Essential hypertension Start: 08-08-2024 End: 08-08-2024 ambulatory SREEKANTH CORTEZ Facility:[facility] Start: 07-12-2024 End: 07-13-2024 Telephone encounter Sergei Renner APRN.[employer] Work Phone: [facility] [place] Comment on above: Results; Orders Start: 07-10-2024 End: 07-10-2024 ambulatory SREEKANTH CORTEZ Facility:[facility] Start: 06-06-2024 End: 06-06-2024 Telephone encounter Sreekanth Cortez DO Work Phone: [facility] [place] Comment on above: Medication Problem Start: 05-02-2024 End: 05-02-2024 Telephone encounter Sergei Renner APRN.CNP Work Phone: [facility] [place] Comment on above: Results; Orders Start: 04-28-2024 End: 07-19-2024 Telephone encounter Sergei Renner APRN.CNP Work Phone: [facility] [place] Comment on above: contact outside [facility] Start: 04-28-2024 End: 04-28-2024 ambulatory SREEKANTH CORTEZ Facility:[facility] Start: 04-28-2024 End: 04-28-2024 ambulatory SERGEI RENNER Facility:[facility] Start: 04-28-2024 End: 04-28-2024 Patient encounter procedure Sergei Renner APRN.[employer] Work Phone: [facility] [place] Comment on above: Hypertension, essent ial [...] encounter procedure Sreekanth Cortez DO Work Phone: [facility] Comment on above: Essential hypertensi on (Primary Dx); Stage 3a chronic kidney disease (HCC); Hypothyroidism, unspecified type; Other iron deficiency anemia; Vitamin D deficiency Start: 02-09-2024 Telephone encounter Sreekanth shrestha DO Work Phone: [facility] Comment on above: checking to see if l abs are needed Start: 11-24-2023 End: 11-24-2023 Office outpatient visit 15 minutes Gabi More APRN.[employer] Work Phone: Cardiology Comment on above: Hyponatremia (Primar y Dx); Hypertension, essential; Palpitation; Hypothyroidism, unspecified type; Iatrogenic hyperthyroidism Start: 11-10-2023 Refill Sreekanth roper DO Work Phone: [facility] Comment on above: Refill Request Start: 11-07-2023 Telephone encounter Justice SIMPSON Work Phone: [facility] Comment on above: Results Start: 11-06-2023 End: 11-06-2023 Subsequent hospital visit by physician Andre [facility] [place] Work Phone: Radiology Comment on above: Acute cough [R05.1] Start: 11-06-2023 End: 11-06-2023 Patient encounter procedure Justice SIMPSON Work Phone: [facility] Comment on above: Acute cough (Primary Dx); URI, acute Start: 10-27-2023 End: 10-27-2023 Patient encounter procedure Sreekanth Cortez DO Work Phone: [facility] Comment on above: Essential hypertensi on (Primary Dx); Stage 3a chronic kidney disease (HCC); Hyponatremia; Hypothyroidism, unspecified type Start: 10-14-2023 E-mail encounter fro m caregiver Gabi More APRN.[employer] Work Phone: [facility] Start: 10-14-2023 Patient encounter procedure Gabi More [employer]POSITION [employer]FER.[employer] Work Phone: Cardiology Comment on above: Appointment Start: 10-11-2023 Refill Donita Estes [employer]POSITION [employer]FER.[employer] Work Phone: [facility] [place] Comment on above: Refill Request Start: 10-11-2023 Refill Sreekanth roper DO Work Phone: [facility] Comment on above: Refill Request Start: 10-08-2023 Telephone encounter Donita roper [employer]POSITION ROOFER.[employer] Work Phone: [facility] [place] Comment on above: Results Start: 10-07-2023 End: 10-07-2023 Patient encounter procedure Donita Estes [employer]POSITION R[employer]FER.[employer] Work Phone: [facility] [place] Comment on above: Essential hypertensi on (Primary Dx); Hyponatremia; Hypothyroidism, unspecified type; Other iron deficiency anemia; Dyslipidemia Start: 09-11-2023 Telephone encounter Sreekanth Sung Mckeon kallitorey DO Work Phone: [facility] [place] Start: 08-05-2023 Telephone encounter Donita roper [employer]POSITION ROOFER.[employer] Work Phone: [facility] [place] Comment on above: Results Start: 07-28-2023 Telephone encounter Donita roper [employer]POSITION R[employer]FER.[employer] Work Phone: [facility] [place] Comment on above: Results Start: 07-26-2023 Telephone encounter Sreekanth shrestha DO Work Phone: [facility] [place] Comment on above: Patient Question; La b Orders Start: 07-23-2023 Telephone encounter Sreekanth shrestha DO Work Phone: [facility] [place] Comment on above: Results; concerns Start: 07-21-2023 End: 07-21-2023 Patient encounter procedure Dontia Estes [employer]POSITION ROOFER.[employer] Work Phone: [facility] [place] Comment on above: Dizziness (Primary D x); Hypothyroidism, unspecified type; Essential hypertension; CHECO (generalized anxiety disorder); Hyponatremia Start: 07-08-2023 Telephone encounter Sreekanth shrestha DO Work Phone: [facility] Comment on above: Patient Question Start: 07-05-2023 End: 07-05-2023 Patient encounter procedure Sreekanth Cortez DO Work Phone: [facility] Comment on above: Hyponatremia (Primar y Dx); Anemia, unspecified type; Hypothyroidism, unspecified type; Dizziness; Essential hypertension; Fatigue, unspecified type; Shakiness Start: 06-29-2023 End: 06-29-2023 Emergency department patient visit [facility] Work Phone: Start: 06-29-2023 End: 06-29-2023 Patient encounter procedure Yuan Syed [employer]POSITION R[employer]FER.[employer] Work Phone: [facility] Comment on above: Procedure not enmanuel d out (Primary Dx) Start: 06-22-2023 Telephone encounter Sreekanth shrestha DO Work Phone: [facility] Comment on above: Clearance Form from [facility] Start: 06-17-2023 Telephone encounter Donita roper COMPOSITION ROOFER.[employer] Work Phone: [facility] Comment on above: Results Start: 06-16-2023 End: 06-16-2023 Patient encounter procedure Donita Estes COMPOSITION ROOFER.[employer] Work Phone: [facility] Comment on above: Low sodium levels (P rimary Dx); Hypothyroidism, unspecified type; Other iron deficiency anemia; Dizziness Start: 06-09-2023 Telephone encounter Sreekanth shrestha DO Work Phone: [facility] Start: 05-17-2023 End: 05-17-2023 Patient encounter procedure Donita Estes [employer]POSITION R[employer]FER.[employer] Work Phone: [facility] Comment on above: Dizziness (Primary D x); Hypothyroidism, unspecified type; Essential hypertension Start: 03-31-2023 End: 03-31-2023 Patient encounter procedure Sreekanth Cortez DO Work Phone: [facility] Comment on above: Essential hypertensi on (Primary Dx); Dysuria; Hypothyroidism, unspecified type Start: 03-20-2023 End: 03-20-2023 Emergency department patient visit [facility] Work Phone: Start: 03-15-2023 Refill Donita Estes [employer]POSITION [employer]FER.[employer] Work Phone: [facility] Comment on above: Refill Request Start: 03-15-2023 End: 03-15-2023 Patient encounter procedure Sreekanth Cortez DO Work Phone: [facility] Comment on above: Essential hypertensi on (Primary Dx); Hypothyroidism, unspecified type; Bilateral leg edema; Lumbar radiculopathy; Other iron deficiency anemia; Dyslipidemia Start: 03-11-2023 Refill Donita Estes [employer]POSITION R[employer]FER.[employer] Work Phone: [facility] Comment on above: Refill Request Start: 03-10-2023 ambulatory Sreekanth roper DO Work Phone: [facility] Comment on above: Dizziness; Hypertens ion Start: 03-10-2023 End: 03-10-2023 Patient encounter procedure Marilyn Gutierrez PA-C Work Phone: [facility] Comment on above: Essential hypertensi on (Primary Dx) Start: 03-09-2023 Refill Donita Estes [employer]POSITION [employer]FER.[employer] Work Phone: [facility] Comment on above: Refill Request Start: 12-31-2022 Telephone encounter Sreekanth shrestha DO Work Phone: [facility] Comment on above: Results Start: 12-25-2022 End: 12-25-2022 Subsequent hospital visit by physician Andre [facility] [place] Work Phone: Radiology Comment on above: Lumbar radiculopathy [M54.16] Start: 12-25-2022 End: 12-25-2022 Patient encounter procedure Sreekanth Cortez DO Work Phone: [facility] Comment on above: Lumbar radiculopathy (Primary Dx); Chronic midline low back pain with bilateral sciatica Start: 09-12-2022 Refill Donitalexis Estes [employer]POSITION ROOFER.[employer] Work Phone: [facility] [place] Comment on above: Refill Request Start: 09-10-2022 Refill Donitalexis Estes [employer]POSITION ROOFER.[employer] Work Phone: [facility] [place] Comment on above: Refill Request Start: 08-31-2022 End: 08-31-2022 Patient encounter procedure Sreekanth Almaraz Cortez Work Phone: [facility] [place] Comment on above: Essential hypertensi on (Primary Dx); Gastroesophageal reflux disease, unspecified whether esophagitis present; Bilateral leg edema; Hypothyroidism, unspecified type; Vitamin D deficiency; Stage 3a chronic kidney disease (HCC); Dyslipidemia; Other iron deficiency anemia Start: 08-10-[address] arciniegasharlene FERNANDEZ.[employer]ER Work Phone: [facility] [place] Comment on above: Covid19 Concern Start: 08-10-2022 End: 08-10-2022 ambulatory Sergeiaj Renner [employer]POSITION ROOFER.[employer] Work Phone: [facility] [place] Comment on above: COVID (Primary Dx) Start: 08-10-2022 End: 08-10-2022 Telemedicine consultation with patient Sergei Renner APRN.[employer] Work Phone: [facility] [place] Start: 07-08-2022 End: 07-08-2022 Patient encounter procedure Sergei Camargoutzman COMPOSITION ROOFER.[employer] Work Phone: [facility] [place] Comment on above: Essential hypertensi on (Primary Dx); Gastroesophageal reflux disease, unspecified whether esophagitis present Start: 04-06-2022 End: 04-06-2022 Patient encounter procedure Yann French MD Work Phone: [facility] Comment on above: Acute left flank george n (Primary Dx); Urinary frequency Start: 02-26-2022 Telephone encounter Donita noel APRN.[employer] Work Phone: [facility] [place] Comment on above: Results Start: 02-25-2022 End: 02-25-2022 Patient encounter procedure Donita Piercesadie COMPOSITION ROOFER.[employer] Work Phone: [facility] Medicine [place] Comment on above: Essential hypertensi on (Primary Dx); Bilateral leg edema; Hypothyroidism, unspecified type; Vitamin D deficiency; Stage 3a chronic kidney disease (HCC); Dyslipidemia; Other iron deficiency anemia; Screening for diabetes mellitus Start: 09-01-2018 Patient encounter procedure JOE RIOS [facility] Start: 02-24-[address] [facility] Procedures Date Procedure Procedure Detail Performing Clinician Start: 04-02-2025 X-ray of chest, PA a nd lateral views Dr. Sreekanth Cortez DO Work Phone: Start: 04-02-2025 CT of head without contrast Dr. Sreekanth Cortez DO Work Phone: Start: 04-02-[address] Sreekanth Cortez DO Work Phone: Start: 2025 Adult depression scr eening assessment Margoth Chavez COMPOSITION ROOFER.[employer] Work Phone: Start: 02-22-2025 CT of head without contrast Dr. Sreekanth Cortez DO Work Phone: Start: 02-22-2025 X-ray of chest, PA a nd lateral views Dr. Sreekanth Cortez DO Work Phone: Start: 02-22-[address] Sreekanth Cortez DO Work Phone: Start: 02-14-2024 Adult depression scr eening assessment Delilah Cabrera DO Work Phone: Start: 11-24-2023 Ecg routine ecg w/le ast 12 lds i&r only [facility] Provider Start: 11-06-2023 Radiologic exam ches t 2 views Justice SIMPSON Work Phone: Start: 06-29-2023 CT of head without contrast Start: 05-17-2023 Urnls dip stick/tabl et rgnt auto w/o microscopy Donita Estes [employer]POSITION ROOFER.[employer] Work Phone: Start: 03-31-2023 Urnls dip stick/tabl et rgnt auto w/o microscopy Sreekanth Cortez DO Work Phone: Start: 03-20-2023 Urine culture Start: 12-25-2022 Radex spine lumbosac ral 2/3 views Sreekanth Echavarriarison DO Work Phone: Start: 04-06-2022 Urnls dip stick/tabl et rgnt auto w/o microscopy Yuan Yahaira COMPOSITION ROOFER.[employer] Work Phone: Start: 02-25-2022 Adult depression scr eening assessment Donita Gonzales COMPOSITION ROOFER.[employer] Work Phone: Plan of Treatment Date Care Activity Detail Author Start: 03-28-2028 Diabetes Screening Diabetes Screening [facility] Start: 03-08-2028 Diabetes Screening Diabetes Screening [facility] Start: 02-26-2028 Diabetes Screening Diabetes Screening [facility] Start: 02-20-2028 Diabetes Screening Diabetes Screening [facility] Start: 11-17-2027 Diabetes Screening Diabetes Screening [facility] Start: 04-28-2027 Diabetes Screening Diabetes Screening [facility] Start: 02-09-2027 Diabetes Screening Diabetes Screening [facility] Start: 11-22-2026 Diabetes Screening Diabetes Screening [facility] Start: 10-07-2026 Diabetes Screening Diabetes Screening [facility] Start: 09-08-2026 Diabetes Screening Diabetes Screening [facility] Start: 08-04-2026 Diabetes Screening Diabetes Screening [facility] Start: 07-21-2026 Diabetes Screening Diabetes Screening [facility] Start: 07-02-2026 Diabetes Screening Diabetes Screening [facility] Start: 06-16-2026 Diabetes Screening Diabetes Screening [facility] Start: 05-20-2026 Diabetes Screening Diabetes Screening [facility] Start: 2026 Anxiety Screening Anxiety Screening [facility] Start: 2026 Depression Screening Depression Screening [facility] Start: 2026 RSV Vaccine (1 - 1-dose 75+ series) RSV Vaccine (1 - 1-dose 75+ series) [facility] Comment on above: Postponed from 2017 (Declined at t his time) Start: 2026 Urine microalbumin profile DTaP,Tdap,Td Vaccine (1 - Tdap) [facility] Comment on above: Postponed from 1961 (Declined at t his time) Start: 03-10-2026 DIABETES SCREEN DIABETES SCREEN [facility] Start: 03-10-2026 Diabetes Screening Diabetes Screening [facility] Start: 02-26-2026 Covid-19 Vaccine () Covid-19 Vaccine () [facility] Comment on above: Postponed from 04/23/2024 (Declined at t his time) Start: 11-18-2025 DIABETES SCREEN DIABETES SCREEN [facility] Start: 05-14-2025 End: 05-14-2025 Patient encounter procedure 05/14/2025 2:20 PM EDT Office Visit Family Veronica Leblanc [address] [place], [place] [id number] Sreekanth Cortez DO [address] [facility] [place] [address] 3 month follow up [facility] [place] Comment on above: 3 month follow up Start: 05-08-2025 End: 08-07-2025 CBC panel - Blood by Automated count COMPLETE BLOOD COUNT Lab Routine Hypertension, essential Stage 3a chronic kidney disease (HCC) Expected: 05/08/2025, Expires: 08/07/2025 [facility] Comment on above: Expected: 05/08/2025, Expires: Start: 05-08-2025 End: 08-07-2025 Comprehensive metabolic 2000 panel - Serum or Plasma COMPREHENSIVE METABOLIC PANEL Lab Routine Hyponatremia Expected: 05/08/2025, Expires: 08/07/2025 [facility] Work Phone: Comment on above: Expected: 05/08/2025, Expires: Start: 05-08-2025 End: 08-07-2025 Thyrotropin [Units/volume] in Serum or Plasma THYROID STIMULATING HORMONE Lab Routine Hypothyroidism, unspecified type Expected: 05/08/2025, Expires: 08/07/2025 [facility] Comment on above: Expected: 05/08/2025, Expires: Start: 05-08-2025 End: 08-07-2025 Thyroxine (T4) free [Mass/volume] in Serum or Plasma T4 FREE/FREE THYROXINE Lab Routine Hypothyroidism, unspecified type Expected: 05/08/2025, Expires: 08/07/2025 [facility] Comment on above: Expected: 05/08/2025, Expires: Start: 04-23-2025 Influenza vaccination Influenza Vaccine (#1) [facility] Start: 04-12-2025 End: 07-12-2025 Basic metabolic 2000 panel - Serum or Plasma BASIC METABOLIC PANEL Lab Routine Hyponatremia Expected: 04/12/2025, Expires: 07/12/2025 [facility] Work Phone: Comment on above: Expected: 04/12/2025, Expires: Start: 04-04-2025 Evaluation of diagnostic study results [facility] Start: 04-02-2025 [facility] Start: 04-02-2025 [facility] Start: 2025 End: 2025 Patient encounter procedure 2025 11:20 AM EDT Office Visit [address] [phone] Margoth Chavez APRN.[facility] [address] [place], [place] [phone] 2 week f/up [facility] Comment on above: 2 week f/up Start: 03-08-2025 End: 06-07-2025 Basic metabolic 2000 panel - Serum or Plasma BASIC METABOLIC PANEL Lab Routine Hypertension, essential Hyponatremia Expected: 03/08/2025, Expires: 06/07/2025 [facility] Work Phone: Comment on above: Expected: 03/08/2025, Expires: Start: 02-26-2025 End: 02-26-2025 Patient encounter procedure 02/26/2025 9:00 AM EDT Office Visit [facility] [address] [place] [phone] Margoth Chavez, FERNANDEZ.[employer] [address] [place] [address] 2 week f/up [facility] [place] Comment on above: 2 week f/up Start: 02-25-2025 DIABETES SCREEN DIABETES SCREEN [facility] Start: 02-22-2025 [facility] Start: 02-22-2025 [facility] Start: 02-13-2025 Anxiety Screening Anxiety Screening [facility] Start: 02-13-2025 Depression Screening Depression Screening [facility] Start: 02-05-2025 End: 02-05-2025 Patient encounter procedure 02/05/2025 9:00 AM EDT Office Visit [facility] [address] [place], [place] [phone] Sreekanth Cortez DO [address] [place] [address] 6 month follow up [facility] Comment on above: 6 month follow up Start: 08-24-2024 End: 11-23-2024 Thyrotropin [Units/volume] in Serum or Plasma THYROID STIMULATING HORMONE Lab Routine Hypothyroidism, unspecified type Expected: 08/24/2024, Expires: 11/23/2024 [facility] Work Phone: Comment on above: Expected: 08/24/2024, Expires: Start: 08-24-2024 End: 11-23-2024 Thyroxine (T4) free [Mass/volume] in Serum or Plasma T4 FREE/FREE THYROXINE Lab Routine Hypothyroidism, unspecified type Expected: 08/24/2024, Expires: 11/23/2024 [facility] Comment on above: Expected: 08/24/2024, Expires: Start: 08-23-2024 Advance Directive Discussion Advance Directive Discussion [facility] Start: 08-23-2024 Medicare Advantage Annual Wellness Visit Medicare Advantage Annual Wellness Visit [facility] Start: 08-20-2024 DIABETES SCREEN DIABETES SCREEN [facility] Start: 08-20-2024 RSV Vaccine (1 - 1-dose 60+ series) RSV Vaccine (1 - 1-dose 60+ series) [facility] Comment on above: Postponed from 2002 (Declined at t his time) Start: 08-20-2024 RSV Vaccine (1 - 1-dose 75+ series) RSV Vaccine (1 - 1-dose 75+ series) [facility] Comment on above: Postponed from 2017 (Declined at t his time) Start: 08-08-2024 End: 08-08-2024 Patient encounter procedure 08/08/2024 9:00 AM EST Office Visit Family Veronica Leblanc [address] [place], [place] [id number] Sreekanth Cortez DO [address] [place], [place] [address] 6 month follow up [facility] Veronica Leblanc Comment on above: 6 month follow up Start: 07-28-2024 End: 10-27-2024 CBC panel - Blood by Automated count COMPLETE BLOOD COUNT Lab Routine Hypertension, essential Hypothyroidism, unspecified type Other iron deficiency anemia Expected: 07/28/2024, Expires: 10/27/2024 [facility] Comment on above: Expected: 07/28/2024, Expires: Start: 06-13-2024 End: 09-12-2024 Thyrotropin [Units/volume] in Serum or Plasma THYROID STIMULATING HORMONE Lab Routine Hypothyroidism, unspecified type Expected: 06/13/2024, Expires: 09/12/2024 [facility] Work Phone: Comment on above: Expected: 06/13/2024, Expires: Start: 06-13-2024 End: 09-12-2024 Thyroxine (T4) free [Mass/volume] in Serum or Plasma T4 FREE/FREE THYROXINE Lab Routine Hypothyroidism, unspecified type Expected: 06/13/2024 (Approximate), Expires: 09/12/2024 [facility] Comment on above: Expected: 06/13/2024 (Approximate), Expi res: 09/12/2024 Start: 05-17-2024 Covid-19 Vaccine () Covid-19 Vaccine () [facility] Comment on above: Postponed from 04/23/2023 (Declined at t his time) Start: 05-17-2024 Covid-19 Vaccine (4 - Moderna series) Covid-19 Vaccine (4 - Moderna series) [facility] Comment on above: Postponed from 09/30/2021 (Declined at t his time) Start: 05-17-2024 Urine microalbumin profile DTaP,Tdap,Td Vaccine (1 - Tdap) [facility] Comment on above: Postponed from 1961 (Declined at t his time) Start: 04-28-2024 End: 07-28-2024 Comprehensive metabolic 2000 panel - Serum or Plasma [facility] Comment on above: Expected: 04/28/2024, Expires: 4 Start: 04-28-2024 End: 07-28-2024 Ferritin [Mass/volume] in Serum or Plasma [facility] Comment on above: Expected: 04/28/2024, Expires: 4 Start: 04-28-2024 End: 07-28-2024 Iron and Iron binding capacity panel - Serum or Plasma [facility] Comment on above: Expected: 04/28/2024, Expires: 4 Start: 04-28-2024 End: 07-28-2024 Thyrotropin [Units/volume] in Serum or Plasma [facility] Work Phone: Comment on above: Expected: 04/28/2024, Expires: 4 Start: 04-28-2024 End: 07-28-2024 Thyroxine (T4) free [Mass/volume] in Serum or Plasma [facility] Comment on above: Expected: 04/28/2024, Expires: 4 Start: 04-23-2024 Covid-19 Vaccine ( season) Covid-19 Vaccine ( season) [facility] Start: 04-23-2024 Covid-19 Vaccine ( season) Covid-19 Vaccine ( season) [facility] Start: 04-23-2024 Influenza vaccination Influenza Vaccine (#1) [facility] Start: 03-23-2024 End: 03-23-2024 Patient encounter procedure 03/23/2024 8:20 AM EDT Office Visit Cardiology [address] [address] Delilah Cabrera DO [address] [place] [address] 6 month follow up Cardiology Comment on above: 6 month follow up Start: 03-10-2024 ANNUAL PCP TEAM CHRONIC DISEASE VISIT ANNUAL PCP TEAM CHRONIC DISEASE VISIT [facility] Start: 03-10-2024 SERUM CREATININE SERUM CREATININE [facility] Start: 02-20-2024 Influenza vaccination Influenza Vaccine (#1) [facility] Comment on above: Postponed from 04/23/2023 (Declined at t his time) Start: 02-14-2024 End: 02-14-2024 Patient encounter procedure 02/14/2024 9:40 AM EDT Office Visit [facility] [place] [address] [place] [address] Sreekanth Cortez DO [address] [place] [address] 3 month follow up [facility] [place] Comment on above: 3 month follow up Start: 02-09-2024 End: 05-10-2024 25-hydroxyvitamin D3 [Mass/volume] in Serum or Plasma VITAMIN D 25 HYDROXY Lab Routine Vitamin D deficiency Expected: 02/09/2024, Expires: 05/10/2024 [facility] Comment on above: Expected: 02/09/2024, Expires: Start: 02-09-2024 End: 05-10-2024 CBC W Auto Differential panel - Blood COMPLETE BLOOD COUNT AND DIFFERENTIAL Lab Routine Other iron deficiency anemia Expected: 02/09/2024, Expires: 05/10/2024 [facility] Comment on above: Expected: 02/09/2024, Expires: Start: 02-09-2024 End: 05-10-2024 Cobalamin (Vitamin B12) [Mass/volume] in Serum or Plasma VITAMIN B12 Lab Routine Stage 3a chronic kidney disease (HCC) Expected: 02/09/2024, Expires: 05/10/2024 [facility] Comment on above: Expected: 02/09/2024, Expires: 4 Start: 02-09-2024 End: 05-10-2024 Comprehensive metabolic 2000 panel - Serum or Plasma COMPREHENSIVE METABOLIC PANEL Lab Routine Stage 3a chronic kidney disease (HCC) Expected: 02/09/2024, Expires: 05/10/2024 [facility] Comment on above: Expected: 02/09/2024, Expires: 4 Start: 02-09-2024 End: 05-10-2024 Thyrotropin [Units/volume] in Serum or Plasma THYROID STIMULATING HORMONE Lab Routine Hypothyroidism, unspecified type Expected: 02/09/2024, Expires: 05/10/2024 [facility] Work Phone: Comment on above: Expected: 02/09/2024, Expires: Start: 02-09-2024 End: 05-10-2024 Thyroxine (T4) free [Mass/volume] in Serum or Plasma T4 FREE/FREE THYROXINE Lab Routine Hypothyroidism, unspecified type Expected: 02/09/2024, Expires: 05/10/2024 [facility] Comment on above: Expected: 02/09/2024, Expires: Start: 12-26-2023 ANNUAL PCP TEAM CHRONIC DISEASE VISIT ANNUAL PCP TEAM CHRONIC DISEASE VISIT [facility] Start: 11-19-2023 SERUM CREATININE SERUM CREATININE [facility] Start: 10-07-2023 End: 01-06-2024 CBC W Auto Differential panel - Blood [facility] Work Phone: Comment on above: Expected: 10/07/2023, Expires: 4 Start: 10-07-2023 End: 01-06-2024 Comprehensive metabolic 2000 panel - Serum or Plasma [facility] Work Phone: Comment on above: Expected: 10/07/2023, Expires: 4 Start: 10-07-2023 End: 01-06-2024 Ferritin [Mass/volume] in Serum or Plasma [facility] Work Phone: Comment on above: Expected: 10/07/2023, Expires: 4 Start: 10-07-2023 End: 01-06-2024 Iron and Iron binding capacity panel - Serum or Plasma [facility] Work Phone: Comment on above: Expected: 10/07/2023, Expires: Start: 10-07-2023 End: 01-06-2024 Lipid 1996 panel - Serum or Plasma [facility] Work Phone: Comment on above: Expected: 10/07/2023, Expires: 4 Start: 10-07-2023 End: 01-06-2024 Thyrotropin [Units/volume] in Serum or Plasma [facility] Work Phone: Comment on above: Expected: 10/07/2023, Expires: Start: 10-07-2023 End: 01-06-2024 Thyroxine (T4) free [Mass/volume] in Serum or Plasma [facility] Work Phone: Comment on above: Expected: 10/07/2023, Expires: Start: 10-07-2023 End: 01-06-2024 Triiodothyronine (T3) [Mass/volume] in Serum or Plasma [facility] Work Phone: Comment on above: Expected: 10/07/2023, Expires: Start: 08-31-2023 ANNUAL PCP TEAM CHRONIC DISEASE VISIT ANNUAL PCP TEAM CHRONIC DISEASE VISIT [facility] Start: 08-23-2023 Advance Directive Discussion Advance Directive Discussion [facility] Start: 08-23-2023 Behavioral Health Screening Behavioral Health Screening [facility] Start: 08-23-2023 Depression Assessment Depression Assessment [facility] Start: 08-12-2023 End: 11-11-2023 Comprehensive metabolic 2000 panel - Serum or Plasma COMP METABOLIC PANEL Lab Routine Hyponatremia Expected: 08/12/2023, Expires: 11/11/2023 [facility] Work Phone: Comment on above: Expected: 08/12/2023, Expires: Start: 08-10-2023 ANNUAL PCP TEAM CHRONIC DISEASE VISIT ANNUAL PCP TEAM CHRONIC DISEASE VISIT [facility] Start: 08-04-2023 End: 11-03-2023 CBC panel - Blood by Automated count CBC Lab Routine Anemia, unspecified type Expected: 08/04/2023, Expires: 11/03/2023 [facility] Work Phone: Comment on above: Expected: 08/04/2023, Expires: Start: 08-04-2023 End: 11-03-2023 CBC W Auto Differential panel - Blood CBC + DIFF Lab Routine Leukocytosis, unspecified type Expected: 08/04/2023, Expires: 11/03/2023 [facility] Work Phone: Comment on above: Expected: 08/04/2023, Expires: Start: 08-04-2023 End: 11-03-2023 Comprehensive metabolic 2000 panel - Serum or Plasma COMP METABOLIC PANEL Lab Routine Anemia, unspecified type Hyponatremia Expected: 08/04/2023, Expires: 11/03/2023 [facility] Work Phone: Comment on above: Expected: 08/04/2023, Expires: Start: 08-04-2023 End: 11-03-2023 Ferritin [Mass/volume] in Serum or Plasma FERRITIN BLD Lab Routine Anemia, unspecified type Expected: 08/04/2023, Expires: 11/03/2023 [facility] Work Phone: Comment on above: Expected: 08/04/2023, Expires: 4 Start: 08-04-2023 End: 11-03-2023 Iron and Iron binding capacity panel - Serum or Plasma IRON + TIBC Lab Routine Anemia, unspecified type Expected: 08/04/2023, Expires: 11/03/2023 [facility] Work Phone: Comment on above: Expected: 08/04/2023, Expires: 4 Start: 07-26-2023 End: 10-25-2023 Cobalamin (Vitamin B12) [Mass/volume] in Serum or Plasma VITAMIN B12 BLOOD Lab Routine Dizziness Expected: 07/26/2023, Expires: 10/25/2023 [facility] Work Phone: Comment on above: Expected: 07/26/2023, Expires: Start: 07-26-2023 End: 10-25-2023 Magnesium [Mass/volume] in Serum or Plasma MAGNESIUM BLD Lab Routine Dizziness Expected: 07/26/2023, Expires: 10/25/2023 [facility] Work Phone: Comment on above: Expected: 07/26/2023, Expires: 4 Start: 07-23-2023 End: 10-22-2023 Urinalysis complete panel - Urine URINALYSIS WITH MICROSCOPIC, REFLEX CULTURE Lab Routine Leukocytosis, unspecified type Expected: 07/23/2023, Expires: 10/22/2023 [facility] Work Phone: Comment on above: Expected: 07/23/2023, Expires: 4 Start: 07-21-2023 End: 10-20-2023 Lipid 1996 panel - Serum or Plasma [facility] Work Phone: Comment on above: Expected: 07/21/2023, Expires: 4 Start: 07-21-2023 End: 10-20-2023 Thyrotropin [Units/volume] in Serum or Plasma [facility] Work Phone: Comment on above: Expected: 07/21/2023, Expires: 4 Start: 07-21-2023 End: 10-20-2023 Thyroxine (T4) free [Mass/volume] in Serum or Plasma [facility] Work Phone: Comment on above: Expected: 07/21/2023, Expires: 4 Start: 07-21-2023 End: 10-20-2023 Triiodothyronine (T3) [Mass/volume] in Serum or Plasma [facility] Work Phone: Comment on above: Expected: 07/21/2023, Expires: 4 Start: 07-17-2023 End: 10-16-2023 Thyrotropin [Units/volume] in Serum or Plasma TSH BLD Lab Routine Hypothyroidism, unspecified type Expected: 07/17/2023, Expires: 10/16/2023 [facility] Work Phone: Comment on above: Expected: 07/17/2023, Expires: 4 Start: 07-17-2023 End: 10-16-2023 Thyroxine (T4) free [Mass/volume] in Serum or Plasma T4 FREE/FREE THYROX Lab Routine Hypothyroidism, unspecified type Expected: 07/17/2023, Expires: 10/16/2023 [facility] Work Phone: Comment on above: Expected: 07/17/2023, Expires: 4 Start: 07-17-2023 End: 10-16-2023 Triiodothyronine (T3) [Mass/volume] in Serum or Plasma T3 BLD Lab Routine Hypothyroidism, unspecified type Expected: 07/17/2023, Expires: 10/16/2023 [facility] Work Phone: Comment on above: Expected: 07/17/2023, Expires: 4 Start: 07-08-2023 ANNUAL PCP TEAM CHRONIC DISEASE VISIT ANNUAL PCP TEAM CHRONIC DISEASE VISIT [facility] Start: 06-29-2023 [facility] Start: 06-29-2023 Ambulatory ECG [facility] Start: 05-17-2023 End: 07-17-2023 CBC W Auto Differential panel - Blood CBC + DIFF Lab Routine Dizziness Essential hypertension Expected: 05/17/2023, Expires: 07/17/2023 [facility] Work Phone: Comment on above: Expected: 05/17/2023, Expires: 3 Start: 05-17-2023 End: 07-17-2023 Comprehensive metabolic 2000 panel - Serum or Plasma COMP METABOLIC PANEL Lab Routine Dizziness Essential hypertension Expected: 05/17/2023, Expires: 07/17/2023 [facility] Work Phone: Comment on above: Expected: 05/17/2023, Expires: 3 Start: 05-17-2023 End: 07-17-2023 Insulin [Units/volume] in Serum or Plasma INSULIN ASSAY BLOOD Lab Routine Dizziness Expected: 05/17/2023, Expires: 07/17/2023 [facility] Work Phone: Comment on above: Expected: 05/17/2023, Expires: Start: 05-17-2023 End: 07-17-2023 Thyrotropin [Units/volume] in Serum or Plasma TSH BLD Lab Routine Hypothyroidism, unspecified type Dizziness Expected: 05/17/2023, Expires: 07/17/2023 [facility] Work Phone: Comment on above: Expected: 05/17/2023, Expires: Start: 05-17-2023 End: 07-17-2023 Thyroxine (T4) free [Mass/volume] in Serum or Plasma T4 FREE/FREE THYROX Lab Routine Hypothyroidism, unspecified type Dizziness Expected: 05/17/2023, Expires: 07/17/2023 [facility] Work Phone: Comment on above: Expected: 05/17/2023, Expires: Start: 05-17-2023 End: 07-17-2023 Triiodothyronine (T3) [Mass/volume] in Serum or Plasma T3 BLD Lab Routine Hypothyroidism, unspecified type Dizziness Expected: 05/17/2023, Expires: 07/17/2023 [facility] Work Phone: Comment on above: Expected: 05/17/2023, Expires: 3 Start: 04-23-2023 Influenza vaccination INFLUENZA (#1) [facility] Start: 04-15-2023 End: 06-15-2023 Thyrotropin [Units/volume] in Serum or Plasma TSH BLD Lab Routine Hypothyroidism, unspecified type Expected: 04/15/2023, Expires: 06/15/2023 [facility] Work Phone: Comment on above: Expected: 04/15/2023, Expires: 3 Start: 04-15-2023 End: 06-15-2023 Thyroxine (T4) free [Mass/volume] in Serum or Plasma T4 FREE/FREE THYROX Lab Routine Hypothyroidism, unspecified type Expected: 04/15/2023, Expires: 06/15/2023 [facility] Work Phone: Comment on above: Expected: 04/15/2023, Expires: 3 Start: 04-15-2023 End: 06-15-2023 Triiodothyronine (T3) Free [Mass/volume] in Serum or Plasma T3 FREE BLD Lab Routine Hypothyroidism, unspecified type Expected: 04/15/2023, Expires: 06/15/2023 [facility] Work Phone: Comment on above: Expected: 04/15/2023, Expires: 3 Start: 03-20-2023 [facility] Start: 03-20-2023 Bacteria identified in Urine by Culture Urine Culture [facility] Start: 03-01-2023 End: 05-01-2023 25-hydroxyvitamin D3 [Mass/volume] in Serum or Plasma VITAMIN D 25 HYDROXY Lab Routine Vitamin D deficiency Expected: 03/01/2023, Expires: 05/01/2023 [facility] Work Phone: Comment on above: Expected: 03/01/2023, Expires: 3 Start: 03-01-2023 End: 05-01-2023 CBC panel - Blood by Automated count CBC Lab Routine Dyslipidemia Expected: 03/01/2023, Expires: 05/01/2023 [facility] Work Phone: Comment on above: Expected: 03/01/2023, Expires: 3 Start: 03-01-2023 End: 05-01-2023 Comprehensive metabolic 2000 panel - Serum or Plasma COMP METABOLIC PANEL Lab Routine Dyslipidemia Expected: 03/01/2023, Expires: 05/01/2023 [facility] Work Phone: Comment on above: Expected: 03/01/2023, Expires: 3 Start: 03-01-2023 End: 05-01-2023 Iron and Iron binding capacity panel - Serum or Plasma IRON + TIBC Lab Routine Other iron deficiency anemia Expected: 03/01/2023, Expires: 05/01/2023 [facility] Work Phone: Comment on above: Expected: 03/01/2023, Expires: 3 Start: 03-01-2023 End: 05-01-2023 Lipid 1996 panel - Serum or Plasma LIPID PANEL BASIC Lab Routine Dyslipidemia Expected: 03/01/2023, Expires: 05/01/2023 [facility] Work Phone: Comment on above: Expected: 03/01/2023, Expires: Start: 03-01-2023 End: 05-01-2023 Thyrotropin [Units/volume] in Serum or Plasma TSH BLD Lab Routine Hypothyroidism, unspecified type Expected: 03/01/2023, Expires: 05/01/2023 [facility] Work Phone: Comment on above: Expected: 03/01/2023, Expires: 3 Start: 03-01-2023 End: 05-01-2023 Thyroxine (T4) free [Mass/volume] in Serum or Plasma T4 FREE/FREE THYROX Lab Routine Hypothyroidism, unspecified type Expected: 03/01/2023, Expires: 05/01/2023 [facility] Work Phone: Comment on above: Expected: 03/01/2023, Expires: 3 Start: 03-01-2023 End: 05-01-2023 Triiodothyronine (T3) Free [Mass/volume] in Serum or Plasma T3 FREE BLD Lab Routine Hypothyroidism, unspecified type Expected: 03/01/2023, Expires: 05/01/2023 [facility] Work Phone: Comment on above: Expected: 03/01/2023, Expires: 3 Start: 02-25-2023 Adult depression screening assessment DEPRESSION SCREENING [facility] Start: 02-25-2023 ANNUAL PCP TEAM CHRONIC DISEASE VISIT ANNUAL PCP TEAM CHRONIC DISEASE VISIT [facility] Start: 02-25-2023 SERUM CREATININE SERUM CREATININE [facility] Start: 02-25-2023 Urine microalbumin profile DTAP,TDAP,TD (1 - Tdap) [facility] Comment on above: Postponed from 1959 (Declined at t his time) Start: 08-23-2022 ADVANCE DIRECTIVE DISCUSSION ADVANCE DIRECTIVE DISCUSSION [facility] Start: 08-20-2022 SERUM CREATININE SERUM CREATININE [facility] Start: 04-23-2022 Influenza vaccination INFLUENZA (#1) [facility] Start: 03-29-2022 End: 05-29-2022 Thyrotropin [Units/volume] in Serum or Plasma TSH BLD Lab Routine Hypothyroidism, unspecified type Expected: 03/29/2022, Expires: 05/29/2022 [facility] Work Phone: Comment on above: Expected: 03/29/2022, Expires: 2 Start: 03-29-2022 End: 05-29-2022 Thyroxine (T4) free [Mass/volume] in Serum or Plasma T4 FREE/FREE THYROX Lab Routine Hypothyroidism, unspecified type Expected: 03/29/2022, Expires: 05/29/2022 [facility] Work Phone: Comment on above: Expected: 03/29/2022, Expires: 2 Start: 03-29-2022 End: 05-29-2022 Triiodothyronine (T3) [Mass/volume] in Serum or Plasma T3 BLD Lab Routine Hypothyroidism, unspecified type Expected: 03/29/2022, Expires: 05/29/2022 [facility] Work Phone: Comment on above: Expected: 03/29/2022, Expires: 2 Start: 02-25-2022 End: 04-27-2022 25-hydroxyvitamin D3 [Mass/volume] in Serum or Plasma [facility] Work Phone: Comment on above: Expected: 02/25/2022, Expires: 2 Start: 02-25-2022 End: 04-27-2022 CBC panel - Blood by Automated count [facility] Work Phone: Comment on above: Expected: 02/25/2022, Expires: 2 Start: 02-25-2022 End: 04-27-2022 Comprehensive metabolic 2000 panel - Serum or Plasma [facility] Work Phone: Comment on above: Expected: 02/25/2022, Expires: 2 Start: 02-25-2022 End: 04-27-2022 Ferritin [Mass/volume] in Serum or Plasma [facility] Work Phone: Comment on above: Expected: 02/25/2022, Expires: 2 Start: 02-25-2022 End: 04-27-2022 Hemoglobin A1c in Blood [facility] Work Phone: Comment on above: Expected: 02/25/2022, Expires: 2 Start: 02-25-2022 End: 04-27-2022 Iron and Iron binding capacity panel - Serum or Plasma [facility] Work Phone: Comment on above: Expected: 02/25/2022, Expires: 2 Start: 02-25-2022 End: 04-27-2022 Lipid 1996 panel - Serum or Plasma [facility] Work Phone: Comment on above: Expected: 02/25/2022, Expires: 2 Start: 02-25-2022 End: 04-27-2022 Thyrotropin [Units/volume] in Serum or Plasma [facility] Work Phone: Comment on above: Expected: 02/25/2022, Expires: 2 Start: 02-25-2022 End: 04-27-2022 Thyroxine (T4) free [Mass/volume] in Serum or Plasma [facility] Work Phone: Comment on above: Expected: 02/25/2022, Expires: 2 Start: 02-25-2022 End: 04-27-2022 Triiodothyronine (T3) [Mass/volume] in Serum or Plasma [facility] Work Phone: Comment on above: Expected: 02/25/2022, Expires: Start: 01-24-2022 BP CONTROLLED (<130/80) BP CONTROLLED (<130/80) [facility] Start: 12-04-2021 COVID-19 VACCINE (4 - Booster for Moderna series) COVID-19 VACCINE (4 - Booster for Moderna series) [facility] Start: 09-30-2021 COVID-19 VACCINE (4 - Booster for Moderna series) COVID-19 VACCINE (4 - Booster for Moderna series) [facility] Start: 09-30-2021 COVID-19 VACCINE (4 - Moderna series) COVID-19 VACCINE (4 - Moderna series) [facility] Start: 08-23-2021 ADVANCE DIRECTIVE DISCUSSION ADVANCE DIRECTIVE DISCUSSION [facility] Start: 08-23-2021 DEPRESSION ASSESSMENT DEPRESSION ASSESSMENT [facility] Start: 2017 RSV Vaccine (1 - 1-dose 75+ series) RSV Vaccine (1 - 1-dose 75+ series) [facility] Start: 2002 RSV Vaccine (1 - 1-dose 60+ series) RSV Vaccine (1 - 1-dose 60+ series) [facility] Start: 1961 Urine microalbumin profile [facility] 25-hydroxyvitamin D3 [Mass/volume] in Serum or Plasma VITAMIN D 25 HYDROXY Lab Routine Vitamin D deficiency 02/10/2024 7:27 AM EDT [facility] Bacteria identified in Urine by Culture URINE CULTURE Microbiology Routine 04/06/2022 3:28 PM EDT [facility] Work Phone: Bacteria identified in Urine by Culture URINE CULTURE Microbiology Routine Dysuria Ordered: 03/31/2023 [facility] Work Phone: Comment on above: Ordered: 03/31/2023 Bacteria identified in Urine by Culture URINE CULTURE Microbiology Routine Dizziness 05/17/2023 4:08 PM EDT [facility] Work Phone: CBC W Auto Different ial panel - Blood COMPLETE BLOOD COUNT AND DIFFERENTIAL Lab Routine Other iron deficiency anemia 02/10/2024 7:27 AM EDT [facility] Cobalamin (Vitamin B 12) [Mass/volume] in Serum or Plasma VITAMIN B12 Lab Routine Stage 3a chronic kidney disease (HCC) 02/10/2024 7:27 AM EDT [facility] Comprehensive metabo lic 2000 panel - Serum or Plasma COMPREHENSIVE METABOLIC PANEL Lab Routine Stage 3a chronic kidney disease (HCC) 02/10/2024 7:27 AM EDT [facility] COVID & INFLUENZA A/ B & RSV NAAT, ROUTINE COVID & INFLUENZA A/B & RSV NAAT, ROUTINE Microbiology Routine URI, acute Ordered: 11/06/2023 [facility] Work Phone: Comment on above: Ordered: 11/06/2023 End: 07-08-2023 ECG COMPLETE ECG COMPLETE ECG Routine Gastroesophageal reflux disease, unspecified whether esophagitis present Essential hypertension 1 Occurrences starting 07/08/2022 until 07/08/2023 [facility] Work Phone: Comment on above: 1 Occurrences starting 07/08/2022 until 07/08/2023 ECG COMPLETE ECG COMPLETE ECG 11/24/2023 8:28 AM EDT [facility] End: 07-08-2023 Echocardiography ECHO Cardiology Routine Gastroesophageal reflux disease, unspecified whether esophagitis present Essential hypertension 1 Occurrences starting 07/08/2022 until 07/08/2023 [facility] Work Phone: Comment on above: 1 Occurrences starting 07/08/2022 until 07/08/2023 OUTSIDE VENDOR CARDI AC OUTPATIENT EXTENDED RHYTHM RECORDING (WITHOUT TELEMETRY) OUTSIDE VENDOR CARDIAC OUTPATIENT EXTENDED RHYTHM RECORDING (WITHOUT TELEMETRY) Holter Routine Dizziness Ordered: 07/21/2023 [facility] Work Phone: Comment on above: Ordered: 07/21/2023 Patient Education [facility] Work Phone: Patient referral [facility] Work Phone: Thyrotropin [Units/volume] in Serum or Plasma THYROID STIMULATING HORMONE Lab Routine Hypothyroidism, unspecified type 02/10/2024 7:27 AM EDT [facility] Thyroxine (T4) free [Mass/volume] in Serum or Plasma T4 FREE/FREE THYROXINE Lab Routine Hypothyroidism, unspecified type 02/10/2024 7:27 AM EDT [facility] UA DIP, URINE (POC) UA DIP, URIN E (POC) Lab Routine Dizziness Ordered: 05/17/2023 [facility] Work Phone: Comment on above: Ordered: 05/17/2023 End: 07-08-2023 US CAROTID ARTERIES DOE VAS LAB US CAROTID ARTERIES DOE VAS LAB Vascular Lab Routine Gastroesophageal reflux disease, unspecified whether esophagitis present Essential hypertension 1 Occurrences starting 07/08/2022 until 07/08/2023 [facility] Work Phone: Comment on above: 1 Occurrences starting 07/08/2022 until 07/08/2023 End: 07-21-2024 US CAROTID ARTERIES DOE VAS LAB US CAROTID ARTERIES DOE VAS LAB Vascular Lab Routine Dizziness 1 Occurrences starting 07/21/2023 until 07/21/2024 [facility] Work Phone: Comment on above: 1 Occurrences starting 07/21/2023 until 07/21/2024 [facility] Immunizations Immunization Date Immunization Notes Care Provider [facility] 07-10-2024 influenza virus vacc ine, unspecified formulation Margoth Chavez [employer] Work Phone: [facility] 06-14-2024 influenza, high dose seasonal, preservative-free Sreekanth Cortez DO Work Phone: [facility] 08-12-2023 influenza (HD-IIV4) vaccine, age 65+ yr, high dose, quadrivalent, PF (FLUZONE HIGH-DOSE) Donita Estes [employer] Work Phone: [facility] 08-12-2023 influenza virus vacc ine, unspecified formulation Delilah Cabrera DO Work Phone: [facility] 06-08-2022 influenza, high dose seasonal, preservative-free Sergei Renner [employer] Work Phone: [facility] 06-08-2022 influenza virus vacc ine, unspecified formulation Donita Estes [employer] Work Phone: [facility] 07-05-2021 influenza, high dose seasonal, preservative-free Donita Zurawick [employer] Work Phone: [facility] Work Phone: 10-30-2020 COVID-19 vaccine, fu ll dose (MODERNA) Donita Zurawick [employer] Work Phone: [facility] 10-03-2020 COVID-19 vaccine, fu ll dose (MODERNA) Donita Zurawick [employer] Work Phone: [facility] 07-05-2020 zoster vaccine recombinant Donita Zurawick [employer] Work Phone: [facility] Work Phone: 03-25-2020 zoster vaccine recombinant Donita Zurawick [employer] Work Phone: [facility] Work Phone: 06-28-2019 influenza, high dose seasonal, preservative-free Donita Zurawick [employer] Work Phone: [facility] Work Phone: 07-05-2018 pneumococcal polysaccharide vaccine, 23 valent Marilyn Gutierrez PA-C Work Phone: [facility] 06-13-2018 influenza, high dose seasonal, preservative-free Donita Zurawick [employer] Work Phone: [facility] Work Phone: 11-02-2017 pneumococcal polysaccharide vaccine, 23 valent Marilyn Gutierrez PA-C Work Phone: [facility] 02-28-2016 pneumococcal conjuga te vaccine, 13 valent Donita Zurawick [employer] Work Phone: [facility] Work Phone: 02-27-2013 pneumococcal polysaccharide vaccine, 23 valent Donita Zurawick [employer] Work Phone: [facility] Work Phone: Payers Date Payer Category Payer Self-pay [id number] 2024 Medicare [id number] 2023 Medicare (Managed Care) [id number] 2023 Unknown [id number] 2020 Medicare UHC AARP MEDICAR E UHC AARP MEDICARE HMO [id number] 2020-Present [phone] [address] [address] [place] [address] O [id number] 2020 Medicare [id number] 1940 Unknown [id number] Medicare [id number] Medicare MEDICARE PART A B [id number] Unknown Unknown [facility] [employer] [id number] Unknown [facility] MCR ADV [id number] Unknown [id number] Unknown [id number] Unknown [id number] Unknown [id number] Unknown [id number] Social History Date Type Detail Facility Start: 04-06-2022 End: 04-02-2025 Tobacco smoking status NHIS Never smoked tobacco [facility] Start: 02-25-2022 End: 03-28-2025 Alcohol intake Current non-drinker of alcohol (finding) [facility] Start: 1940 Sex Assigned At Female C [facility] Start: 02-15-2022 End: 07-08-2022 Exposure to SARS-CoV-2 (event) Not sure [facility] Start: 04-06-2022 Tobacco use and exposure Smokeless tobacco non-user [facility] Start: 12-25-2022 End: 08-10-2023 History of Social function [facility] Work Phone: Start: 12-25-2022 End: 08-10-2023 Tobacco use panel [facility] Work Phone: Start: 07-24-2012 Adult Depression Screening Assessment 0 [facility] Work Phone: Start: 06-23-2020 Gender identity Identifies as female gender (finding) [facility] Start: 03-20-2023 End: 06-29-2023 Tobacco smoking status NHIS Unknown if ever smoked [facility] Start: 10-05-2017 None [facility] Start: 10-03-2017 Spouse/ Signif icant Other [facility] (I/We) worried da er (my/our) food would run out before (I/we) got money to buy more. Never true [facility] In the past 12 month s, was there a time when you were not able to pay the mortgage or rent on time? No [facility] Functional Status Date Assessment Result Facility 02-25-2025 Are you deaf, or do you have serious difficulty hearing No [facility] 02-25-2025 Are you blind, or do you have serious difficulty seeing, even when wearing glasses No [facility] 02-25-2025 Do you have serious difficulty walking or climbing stairs No [facility] 02-25-2025 Do you have difficul ty dressing or bathing No [facility] 02-25-2025 Because of a physica l, mental, or emotional condition, do you have difficulty doing errands alone such as visiting a physician's office or shopping No [facility] 08-13-2023 Are you deaf, or do you have serious difficulty hearing No 08/13/2023 2:52 PM Laura Garcia, ENEDELIA No [facility] 08-13-2023 Are you blind, or do you have serious difficulty seeing, even when wearing glasses No 08/13/2023 2:52 PM Laura Garcia, ENEDELIA No [facility] 08-13-2023 Do you have serious difficulty walking or climbing stairs No 08/13/2023 2:52 PM Laura Garcia, ENEDELIA No [facility] 08-13-2023 Do you have difficul ty dressing or bathing No 08/13/2023 2:52 PM Laura Garcia, ENEDELIA No [facility] 08-13-2023 Because of a physica l, mental, or emotional condition, do you have difficulty doing errands alone such as visiting a physician's office or shopping No 08/13/2023 2:52 PM Laura Garcia, ENEDELIA No [facility] Mental Status Date Assessment Result Facility 04-02-2025 Cognitive function Level Of Cons ciousness Awake;Alert;Appropriate;Fol lows Commands [facility] Work Phone: 02-25-2025 Because of a physica l, mental, or emotional condition, do you have serious difficulty concentrating, remembering, or making decisions No [facility] 02-22-2025 Cognitive function Level Of Cons ciousness Awake;Alert;Appropriate;Fol lows Commands [facility] Work Phone: 08-13-2023 Because of a physica l, mental, or emotional condition, do you have serious difficulty concentrating, remembering, or making decisions No 08/13/2023 2:52 PM Laura Garcia, ENEDELIA No [facility] 06-29-2023 Cognitive function Level Of Cons ciousness Awake;Appropriate;Drowsy [facility] Work Phone: 03-20-2023 Cognitive function Level Of Cons ciousness Awake;Alert;Appropriate;Fol lows Commands [facility] Work Phone: Clinical Notes 02-25-2022 to 04-10-2025 Telephone Encounter - Aby Sanches MA - 04/10/2025 4:27 PM EDTTelephone Encounter - Aby Sanches MA - 04/10/2025 4:27 PM EDTTelephone Encounter - William Cash LPN - 04/03/2025 2:42 PM EDT Note Date & Type Note Facility 04-10-2025 Telephone encounter Note PCP had office contact pt to see what Cardiologists she is following with. Recent testing was faxed to Dr. Lewis's office. Aby Sanches MA [facility] 04-10-2025 Miscellaneous Notes PCP had office contact pt to see what Cardiologists she is following with. Recent testing was faxed to Dr. Lewis's office. Aby Sanches MA Left message for pt to contact office. William Cash LPN Let patient know that her testing is overall normal. She did have 1 level that was elevated on blood draw however the urine, which is more specific to diagnosis, was normal. I'm deferring further testing/workup to her PCP and cardiology. Marilyn Gutierrez PA-C documented in this encounter [facility] 04-06-2025 Telephone encounter Note Call to pt and she's seeing Dr. Lewis at [facility]. States she just had an appt with them this week. Recent labs and US faxed to [phone]. Aby Sanches MA [facility] 04-06-2025 Miscellaneous Notes Call to pt and she's seeing Dr. Lewis at [facility]. States she just had an appt with them this week. Recent labs and US faxed to [phone]. Aby Sanches MA Left message to return call. Please call and clarify what grocery team member she is seeing and fax all recent urine testing, labs and renal US testing Sreekanth Cortez DO documented in this encounter [facility] 04-04-2025 Telephone encounter Note Left message to return call. [facility] 04-04-2025 Telephone encounter Note Please call and clarify what grocery team member she is seeing and fax all recent urine testing, labs and renal US testing Sreekanth Cortez DO [facility] 04-03-2025 Telephone encounter Note Left message for pt to contact office. William Cash LPN [facility] 04-03-2025 Telephone encounter Note Let patient know that her testing is overall normal. She did have 1 level that was elevated on blood draw however the urine, which is more specific to diagnosis, was normal. I'm deferring further testing/workup to her PCP and cardiology. Marilyn Gutierrez PA-C [facility] 04-03-2025 Telephone encounter Note Pt notified of Marilyn's message with verbalized understanding. William Cash LPN [facility] 04-03-2025 Miscellaneous Notes Pt notified of Marilyn's message with verbalized understanding. William Cash LPN Let patient know that her renal artery US is normal. No significant blockages noted. documented in this encounter [facility] 04-02-2025 Telephone encounter Note Let patient know that her renal artery US is normal. No significant blockages noted. [facility] 04-02-2025 Radiology Diagnostic study note [facility] Imaging Services [address] [place] [id number] Brain/Head without Contrast MR#: [id number] Acct: [id number] Name: CASANDRA HENRY Rep #: [id number] : 1940 F 85 From: Syd Ku MD PCP: Dr. Sreekanth Cortez, DO Status: RE G ER Study:Brain/Head without Contrast Date of Exa m: 04/02/25 Exam# [id number] Ordering Dr: Raman Mcbride MD PROCEDURE: BRAIN/HEAD WITHOUT CONTRAST 04/02/2025 REASON FOR EXAM: LIGHTHEADED WITH HTN TECHNIQUE: BRAIN/HEAD WITHOUT CONTRAST Coronal and Sagittal reconstruction series were provided. One or more dose reduction techniques were used (e.g., Automated exposure control, adjustment of the mA and/or kV according to patient size, use of iterative reconstruction technique. RADIATION DOSE SUMMARY: CTDlvol: 44.99 mGy DLP: 762.36 mGycm COMPARISON: 02/22/2025 FINDINGS: Brain: No acute hemorrhage midline shift or mass effect. Stable basal ganglia calcifications and remote basal ganglia infarcts. CSF Spaces: Mild generalized cerebral atrophy Sinuses/Mastoids: Clear at visualized levels Bones: No fracture or suspicious osseous lesion CT/Brain/Head without Contrast IMPRESSION: Age consistent changes, no acute findings, no interval change Reading Location: [facility] CC: Dr. Litzy Mcbride MD; Dr. Sreekanth Cortez DO ~ Occupational Therapy Assist: Signed [facility] 04-02-2025 Radiology Diagnostic study note [facility] Imaging Services [address] [place] [address] [id number] Chest PA and Lateral MR#: [id number] Acct: [id number] Name: CASANDRA HENRY Rep #: [id number] : 1940 F 85 From: Syd Ku MD PCP: Dr. Sreekanth Cortez DO Status: RE G ER Study:Chest PA and Lateral Date of Exam: 04/02/25 Exam# [id number] Ordering Dr: Raman Mcbride MD PROCEDURE: CHEST PA AND LATERAL 04/02/2025 REASON FOR EXAM: HTN TECHNIQUE: CHEST PA AND LATERAL COMPARISON: 02/22/2025 FINDINGS: Hardware: None Heart: The heart size is normal. Mediastinum: The mediastinal contour is unremarkable. Lungs: Lungs are mildly hyperexpanded with chronic interstitial changes, no superimposed process, no interval change Bones: Degenerative changes are identified within the thoracic spine. RAD/Chest PA and Lateral IMPRESSION: Mildly hyperexpanded lungs with chronic interstitial changes, no superimposed acute pulmonary process Reading Location: [facility] CC: Dr. Litzy Mcbride MD; Dr. Sreekanth Cortez DO ~ Occupational Therapy Assist: Signed [facility] 03-28-2025 Note HNO ID: [id number] Author: MARILYN GUTIERREZ PA-C Service: ? Author Type: Physician Sliver Chopper Type: Progress Notes Filed: 03/28/2025 08:02 Note [...] Scheduled cardiology appointment with Dr. Lewis at [facility] on 04/04. 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 Ray for stage 3 CKD- states [...] WHEN PFRMD 12/05/[address] in [facility] FLX W/REMOVAL LESION BY HOT [...] (ANC) 1.45 - (more content not included)... [facility] 03-21-2025 Telephone encounter Note Called and [...] at home). 4) Losartan 50 mg BID. [facility] 03-21-2025 Miscellaneous Notes Called and spoke with [...] her daughter Anuja send them in a [employer]. Once sent, then call in and speak to a nurse so that the nurse can copy and paste readings into this encounter and forward the information on to Margoth Averyo. Pt asking about her Clonidine patch. Instructed if Margoth told her she could add another 0.1 mg patch and have both on, she could do that. Current Questions/information for Margoth after above information is received: 1) What dosage of Carvedilol should pt continue? The 12.5 or the 6.25. If 6.25 mg, do you want to send a script in for that dose to [facility] since pt had some confusion on which [...] 25 mg tablets at home. Needs to turkey picker new rx or clonidine patch and new [...] mg BID. On 02/19, pt saw Margoth Scott with no med changes but a referral to [facility] for labile blood pressure. On 02/24, pt went to [facility] and was admitted overnight for BP-discharged [...] Hydralazine if BP >140/90. Will confirm with Marogth on patch dosage and Carvedilol dosing as [...] calling: self Call patient at: at home [phone] (home) [phone] (cell) Was an appointment scheduled: No Closing statement: Mary Jackman Pss documented in this encounter [facility] 03-20-2025 Telephone encounter Note I am not sure what discussion regarding dosing was had at last appt with patient. Will wait for tomorrow to clarify with Margoth Cortez DO [facility] 03-17-2025 Telephone encounter Note Called pt back [...] her daughter Anuja send them in a [employer] msg. Once sent, then call in and [...] a script in for that dose to [facility] since pt had some confusion on which [...] picked up the 0.2 mg patches. T [facility] 03-17-2025 Telephone encounter Note With high BP today I would recommend she take the hydralazine as ordered. I would have her take 12.5 mg dose of carvedilol ton and this weekend since she has 25 mg tablets at home. Needs to turkey picker new rx or clonidine patch and new rx for carvedilol. Call PCP team on Wednesday with repeat BP readings. Go to the ER with severe headache, chest pain, Shortness of Breath, leg swelling, confusion, or symptoms of stroke with high BP >160/100. T [facility] Work Phone: 03-17-2025 Telephone encounter Note Called [...] no med changes but a referral to [facility] for labile blood pressure. On 02/24, pt went to [facility] and was admitted overnight for BP-discharged [...] dosing as pt was confused on that. [facility] 03-17-2025 Telephone encounter Note casandra is calling [...] calling: self Call patient at: at home [phone] (home) [phone] (cell) Was an appointment scheduled: No Closing statement: Mary Ocampo [facility] Work Phone: 2025 Instructions Margoth Chavez APRN.CNP - 2025 11:38 AM EDT Schedule appt to come in if our blood pressures aren't controlling or if you have any issues Start carvedilol 6.25mg twice daily for your increased heart rate (if you have 12.5mg tablets at home, cut in half) Take sodium tablet 1 tablet by mouth once daily Get your sodium level rechecked in one month documented in this encounter [facility] 2025 History of Presen t illness Narrative [...] WHEN PFRMD 12/05/[address] [facility] FLX W/REMOVAL LESION BY HOT [...] mouth once daily as needed. cloNIDine TTS ([id number]-9) 0.1 mg/24 hr Apply 1 patch as [...] as needed for worsening/no improvement. Margoth Chavez APRN.PULPWOOD BUYER Recording using [employer] software for draft documentation of the visit was discussed with the patient/authorized surgical sales representative; all questions welcomed and answered. Patient/authorized surgical sales representative agreed to proceed documented in this encounter [facility] 2025 Note HNO ID: [id number] Author: MARGOTH CHAVEZ APRN.PULPWOOD BUYER Service: ? Author Type: Nurse Practitioner Type: [...] WHEN PFRMD 12/05/[address] [facility] FLX W/REMOVAL LESION BY HOT [...] mouth once daily as needed. cloNIDine TTS ([id number]) 0.1 mg/24 hr Apply 1 patch as [...] or rubs. N (more content not included)... [facility] 03-08-2025 Telephone encounter Note Transitional Care Management (TCM) [facility] Monitoring Program Provider Action / FYI: na SUMMARY: Outreach type: INITIAL OUTREACH Discharge Network Status: In-Network Discharge Source of Patient: [facility] TCM Discharge Report Patient discharged from [facility] on 02.25.25. Admitted for Dizziness. . Contact made with patient: No - 2nd unsuccessful attempt - end outreach and close encounter. Vale Yu March 08, 2025 9:49 AM [facility] 03-08-2025 Miscellaneous Notes Transitional Care Management (TCM) [facility] Monitoring Program Provider Action / FYI: na SUMMARY: Outreach type: INITIAL OUTREACH Discharge Network Status: In-Network Discharge Source of Patient: [facility] TCM Discharge Report Patient discharged from [facility] on 02.25.25. Admitted for Dizziness. . Contact made with patient: No - 2nd unsuccessful attempt - end outreach and close encounter. Vale Yu March 08, 2025 9:49 AM documented in this encounter [facility] 02-28-2025 Telephone encounter Note [facility] Action / FYI: N/a SUMMARY: Outreach type: INITIAL OUTREACH Discharge Network Status: In-Network Discharge Source of Patient: [facility] TCM Discharge Report Patient discharged from [facility] on 02/25/2025. Admitted for Dizziness. Contact made with patient: Yes, for Initial Outreach Hi my name is Aspen Silvestre and I am calling from the [facility] on behalf of your Primary Care Provider, [...] Center phone number to speak with a central scheduler who can assist you with that appointment. [...] Aspen Silvestre February 28, 2025 1:00 PM [facility] 02-28-2025 Miscellaneous Notes Transitional Care Management (TCM) [facility] Monitoring Program Provider Action / FYI: N/a SUMMARY: Outreach type: INITIAL OUTREACH Discharge Network Status: In-Network Discharge Source of Patient: [facility] TCM Discharge Report Patient discharged from [facility] on 02/25/2025. Admitted for Dizziness. Contact made with patient: Yes, for Initial Outreach Hi my name is Aspen Silvestre and I am calling from the [facility] on behalf of your Primary Care Provider, [...] Center phone number to speak with a central scheduler who can assist you with that appointment. [...] 2025 1:00 PM documented in this encounter [facility] 02-26-2025 Instructions Margoth Chavez APRN.PULPWOOD BUYER - 02/26/2025 9:42 AM EDT Stop your [...] your next visit documented in this encounter [facility] 02-26-2025 History of Presen t illness Narrative This is a 84 year old female who presents today with: Follow up ER visit 02/22 [facility] (new order to increase losartan to twice daily which is what she is already on) [facility] 02/24-02/25 (new order to increase carvedilol to [...] mild headaches -they increased her carvedilol at [place] over the weekend but she didn't take [...] WHEN PFRMD 12/05/[address] [facility] FLX W/REMOVAL LESION BY HOT [...] as needed for worsening/no improvement. Margoth Chavez APRN.PULPWOOD BUYER Recording using [employer] software for draft documentation of the visit was discussed with the patient/authorized surgical sales representative; all questions welcomed and answered. Patient/authorized surgical sales representative agreed to proceed documented in this encounter [facility] 02-26-2025 Note HNO ID: [id number] Author: MARGOTH CHAVEZ APRN.PULPWOOD BUYER Service: ? Author Type: Nurse Practitioner Type: Progress Notes Filed: 02/26/2025 10:18 Note Text: This is a 84 year old female who presents today with: Follow up ER visit 02/22 [facility] (new order to increase losartan to twice daily which is what she is already on) [facility] 02/24-02/25 (new order to increase carvedilol to [...] mild headaches -they increased her carvedilol at [place] over the weekend but she didn't take [...] WHEN PFRMD 12/05/[address] [facility] FLX W/REMOVAL LESION BY HOT [...] as needed for worsening/no improvement. Margoth Chavez APRN.PULPWOOD BUYER Recording using [employer] software for draft documentation of the visi (more content not included)... [facility] 02-25-2025 Note HNO ID: [id number] Author: MAYELIN RENNER LSW Service: Care Management Author Type: Film Splicer Type: Care Mgt Progress Note Filed: 02/25/2025 15:50 Note Text: CARE MANAGEMENT DISCHARGE NOTE SERVICE DATE: February 25, 2025 SERVICE TIME: 3:49 PM Admission Date: 02/24/2025 LOS: 0 days Discharge Arrangement Services Arranged Provider Name: LIAM Phone: NA Caregiver Assessment Caregiver is ready, [...] CM will follow, as needed. SIGNATURE: SHAKIRA Day ACM PATIENT NAME: Casandra Henry DATE: February 25, 2025 TIME: 3:49 PM [facility] 02-25-2025 Note HNO ID: [id number] Author: MAYELIN RENNER LSW Service: Care Management Author Type: Film Splicer Type: Care Mgt Initial Assessment Filed: 02/25/2025 15:48 Note Text: CARE MANAGEMENT: ASSESSMENT AND DISCHARGE PLAN SERVICE DATE: February 25, 2025 SERVICE TIME: 3:47 PM PCP: Sreekanth Cortez, DO/reviewed Primary Contact: Extended Emergency Contact Information Primary Emergency Contact: ElaineJigar Address: [address] [place] [address] Mobile Relation: Spouse Admission Status: Observation Insurance Provider: [employer] MEDICARE HMO Discharge Planning requested by: Per Department Practice Potential Transition Plans Home Advance Directives Current Advance Directive: Health Care Power of Body Trimmer Upholsterer, Living Will In Chart: No Skoog Patching Machine Operator Attempted to Assist with AD Completion: Yes [...] None Discharge Planning Patient Goal(s): General wellness [place] [facility] Explained: Are you interested in [...] admitted due to Hypertension. Lives with spouse. Bucks in ADL's. No services or equipment used. Daughter transporting pt home on d/c. CM will follow. SIGNATURE: SHAKIRA Day, ACM PATIENT NAME: Casandra Henry DATE: February 25, 2025 TIME: 3:47 PM [facility] 02-22-2025 Discharge summary [facility] 02-22-2025 Radiology Diagnostic study note [facility] Imaging Services [address] [place], [place] [id number] Brain/Head without Contrast MR#: [id number] Acct: [id number] Name: CASANDRA HENRY Rep #: [id number] : 1940 F 84 From: Astrid Mendoza MD PCP: Dr. Sreekanth Cortez DO Status: RE G ER Study:Brain/Head without Contrast Date of Exa m: 02/22/25 Exam# [id number] Ordering Dr: Devaughn Hermosilol DO EXAM: NONCONTRAST CT SCAN OF THE [...] Farmer DO; Dr. Sreekanth Cortez DO ~ Occupational Therapy Assist: Signed [facility] 02-22-2025 Radiology Diagnostic study note [facility] Imaging Services [address] [place] [address] [id number] Chest PA and Lateral MR#: [id number] Acct: [id number] Name: CASANDRA HENRY Rep #: [id number] : 1940 F 84 From: Astrid Mendoza MD PCP: Dr. Sreekanth Cortez DO Status: RE G ER Study:Chest PA and Lateral Date of Exam: 02/22/25 Exam# [id number] Ordering Dr: Devaughn Hermosillo DO PROCEDURE: CHEST [...] Reading Location: [facility] CC: Dr. Devaughn Farmer, ; Dr. Sreekanth Cortez, DO ~ Occupational Therapy Assist: Signed [facility] 02-19-2025 Instructions Margoth Chavez APRN.CNP - 02/19/2025 1:08 PM EDT Stop at labs and get labs drawn Continue logging blood pressure and take hydralazine as needed Follow with cardiology documented in this encounter [facility] 02-19-2025 Note HNO ID: [id number] Author: MARGOTH CHAVEZ APRN.CNP Service: ? Author [...] WHEN PFRMD 12/05/[address] [facility] FLX W/REMOVAL LESION BY HOT [...] auscultation. No wheezing, (more content not included)... [facility] 02-19-2025 History of Present illness Narrative [...] WHEN PFRMD 12/05/[address] [facility] FLX W/REMOVAL LESION BY HOT [...] Making Level: 4 - Moderate Recording using [employer] software for draft documentation of the visit was discussed with the patient/authorized surgical sales representative; all questions welcomed and answered. Patient/authorized surgical sales representative agreed to proceed documented in this encounter [facility] 02-05-2025 Note HNO ID: [id number] Author: SREEKANTH CORTEZ, DO Service: ? Author [...] Monitor serum sodium levels regularly. Recording using [employer] software for draft documentation of the visit was discussed with the patient/authorized surgical sales representative; all questions welcomed and answered. Patient/authorized surgical sales representative agreed to proceed [facility] 02-05-2025 History of Present illness Narrative [...] Monitor serum sodium levels regularly. Recording using [employer] software for draft documentation of the visit was discussed with the patient/authorized surgical sales representative; all questions welcomed and answered. Patient/authorized surgical sales representative agreed to proceed documented in this encounter [facility] 02-05-2025 Instructions Sreekanth Cortez DO - 02/05/2025 9:41 AM EDT STOP the metoprolol START on the Coreg 12.5 mg twice a day for BLOOD PRESSURE instead of the metoprolol OKAY to use the Hydralazine 25 mg medication as needed for BLOOD PRESSURE >140/90 documented in this encounter [facility] 12-25-2024 Instructions Maribeth Griffiths APRN.SATISH - 12/25/2024 1:52 PM EDT I have changed Metoprolol to 75 mg twice a day- you will need to take a 25 mg tablet along with a 50 mg tablet to equal 75 mg documented in this encounter [facility] 12-25-2024 Note HNO ID: [id number] Author: MARIBETH GRIFFITHS APRN.SATISH Service: ? Author [...] - 1-dose 75+ series) Never done Covid-19 Vaccine() due on 04/23/2024 Advance Directive Discussion Never [...] 25 MG TABLET,EXTENDED RELEASE 24 HR Maribeth Griffiths, FERNANDEZ.PULPWOOD BUYER Prescription instructions reviewed with patient as applicable. [...] Medical Decision Making Level: 4 - Moderate [facility] 12-25-[facility] History of Present illness Narrative 12/25/2024 [...] MG TABLET,EXTENDED RELEASE 24 HR Maribeth Griffiths APRN.P[employer]PWOOD BUYER Prescription instructions reviewed with patient as applicable. [...] Moderate documented in this encounter [facility] 12-25-2024 Telephone encounter Note Pt called in [...] and pm Chyna Ramirez RN [facility] 12-25-2024 Miscellaneous Notes Pt called in and [...] RN documented in this encounter [facility] 11-28-2024 Telephone encounter Note Pt notified of provider's message. Pt voiced understanding concerning medication. Farnaz Mays LPN [facility] 11-28-2024 Miscellaneous Notes Pt notified of provider's [...] like. documented in this encounter [facility] 11-28-2024 Telephone encounter Note Her TSH and [...] Authorizing Provider: SREEKANTH CORTEZ DO [facility] 11-28-2024 Telephone encounter Note Pt called and [...] November 28, 2024 4:27 PM [facility] 11-28-2024 Telephone encounter Note Yes, this is still higher BLOOD PRESSURE than I would like Please apologize since I was out of office last week Option would be to increase her metoprolol to 50 mg in AM and 50 mg in PM If willing to do this, please load rx for me to send in Sreekanth Cortez DO [facility] 11-21-2024 Telephone encounter Note Pt returned the call and notified of results and Sergei Renner's information and instructions. [facility] 11-21-2024 Miscellaneous Notes Pt returned the call [...] anything there. No other concerns. Sergei Renner APRN.PULPWOOD BUYER documented in this encounter [facility] 11-21-2024 Telephone encounter Note Pt calling in [...] higher than what Dr. Cortez would like. [facility] 11-21-2024 Telephone encounter Note Left message to return call Silvana Rousseau MA [facility] 11-21-2024 Telephone encounter Note Please let her know I received her lab results. Her TSH thyroid level is a little bit low, but this is actually a good range where Dr. Cortez likes it to run, so need to change anything there. No other concerns. Sergei Renner APRN.PULPWOOD BUYER [facility] Work Phone: 11-09-2024 Telephone encounter Note [...] Laura Ocampo November 09, 2024 8:13 AM [facility] 11-09-2024 Miscellaneous Notes Prescription Refill Information [...] AM documented in this encounter [facility] 10-11-2024 Telephone encounter Note Prescription Refill Information [...] mouth once daily. Take on empty stomach Antoninaabhijeet Love October 11, 2024 8:39 AM [facility] 10-11-2024 Miscellaneous Notes Prescription Refill Information The [...] AM documented in this encounter [facility] 08-08-2024 Note HNO ID: [id number] Author: SREEKANTH CORTEZ, DO Service: ? Author [...] WHEN PFRMD 12/05/[address] [facility] FLX W/REMOVAL LESION BY HOT [...] symptoms. Discussed r (more content not included)... [facility] 08-08-2024 History of Present illness Narrative [...] WHEN PFRMD 12/05/[address] [facility] FLX W/REMOVAL LESION BY HOT [...] with the plan. Sreekanth Cortez DO [address] [place] [address] documented in this encounter [facility] 07-13-2024 Telephone encounter Note Patient notified of provider's instructions and that prescription sent to pharmacy. Patient verbalizes understanding. Roxanne Felix RN [facility] 07-13-2024 Miscellaneous Notes Patient notified of provider's [...] of levothyroxine 100 mcg. Patient uses [facility] as pharmacy. Roxanne Felix RN Her TSH level has improved but is still too high. The levothyroxine 88mcg is not enough. Would she be willing to try the 100mcg again if we order it to be dispensed as the name brand rather generic? Sometimes the reactions are from fillers that are in the generics. Sergei Renner APRN.CNP documented in this encounter [facility] 07-13-2024 Telephone encounter Note JUDITH San sent. Recheck thyroid labs in about 6 weeks. The following approved medication requests have been transmitted electronically. Requested Prescriptions Signed Prescriptions Disp Refills SYNTHROID 100 mcg tablet 30 tablet 2 Sig: Take 1 tablet by mouth once daily. Take on empty stomach Authorizing Provider: SERGEI RENNER APRN.CNP [facility] 07-12-2024 Telephone encounter Note Patient notified of results and provider's instructions. Patient verbalizes understanding. Patient states that she would be willing to try the brand name of levothyroxine 100 mcg. Patient uses [facility] as pharmacy. Roxanne Felix RN [facility] 07-12-2024 Telephone encounter Note Her TSH level has improved but is still too high. The levothyroxine 88mcg is not enough. Would she be willing to try the 100mcg again if we order it to be dispensed as the name brand rather generic? Sometimes the reactions are from fillers that are in the generics. Sergei Renner APRN.SATISH [facility] 06-06-2024 Telephone encounter Note Noted, thank you. Sergei Renner APRN.CNP [facility] 06-06-2024 Miscellaneous Notes Noted, thank you. Sergei [...] labs. documented in this encounter [facility] 06-06-2024 Telephone encounter Note Patient phoned to [...] more weeks then re-check labs. [facility] 05-04-2024 Telephone encounter Note Nurse Lili notified of provider message. She will relay info to Dr. Ray and contact office with provider response. Silvana Rousseau MA [facility] 05-04-2024 Miscellaneous Notes Nurse Lili notified of [...] Dr. 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 Patient's blood pressure at [...] regimen or add anything? Thanks Sergei Renner APRN.P[employer]OD BUYER documented in this encounter [facility] 05-02-2024 Telephone encounter Note Patient returned call and given provider's message below and patient verbalized understanding. Alfredo Lisa RN [facility] 05-02-2024 Miscellaneous Notes Patient returned call and [...] APRN.CNP documented in this encounter [facility] 05-02-2024 Telephone encounter Note Message left for pt to call back for results. Ai Jorgensen MA [facility] 05-02-2024 Telephone encounter Note Please let her [...] Authorizing Provider: SERGEI RENNER APRN.SATISH [facility] 05-02-2024 Telephone encounter Note Nephrology office will contact our office back and ask to speak with triage nurse for provider message. Please see RS note below. Silvana Rousseau MA [facility] 04-28-2024 Telephone encounter Note Attempted to contact office and speak with MA/Nurse but line rings busy. Will need to try again. Silvana Rousseau MA [facility] 04-28-2024 Telephone encounter Note Please contact Dr. 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 Patient's blood pressure at [...] regimen or add anything? Thanks Sergei Renner APRN.PULPWOOD BUYER [facility] 04-28-2024 Note HNO ID: [id number] Author: SERGEI RENNER APRN.SATISH Service: ? Author Type: Nurse Practitioner [...] Sees Dr. Stoney Ray, he comes to [facility] once a week on Wednesdays. Past medical history, appointments, medications, allergies reviewed. Previous Medical History PAST MEDICAL HISTORY No date: Acid reflux No date: Hiatal hernia No date: Hypertension No date: Hypothyroid No date: Palpitation Previous Surgical History PAST SURGICAL HISTORY 2000: CARPAL TUNNEL Comment: bilateral 12/05/2013: COLONOSCOPY FLX DX W/COLLJ SPEC WHEN PFRMD Comment: Colonoscopy done in [place] 02/19/2020: [facility]SC FLX W/REMOVAL LESION BY HOT [...] Advance Directive Discussion Never done Covid-19 Vaccine( - season) due on 04/23/2024 Influenza Vaccine(1) [...] - THYROID STIMU (more content not included)... [facility] 04-28-2024 History of Present illness Narrative [...] Sees Dr. Stoney Ray, he comes to [facility] once a week on Wednesdays. Past medical history, appointments, medications, allergies reviewed. Previous Medical History PAST MEDICAL HISTORY No date: Acid reflux No date: Hiatal hernia No date: Hypertension No date: Hypothyroid No date: Palpitation Previous Surgical History PAST SURGICAL HISTORY 2000: CARPAL TUNNEL Comment: bilateral 12/05/2013: COLONOSCOPY FLX DX W/COLLJ SPEC WHEN PFRMD Comment: Colonoscopy done in [place] 02/19/2020: COLSC FLX W/REMOVAL LESION BY HOT [...] IRON AND TIBC - FERRITIN Sergei Renner APRN.P[employer]PWOOD BUYER documented in this encounter [facility] 04-28-2024 Evaluation note Diagnosis Hypertension, essential- Primary Unspecified essential hypertension Stage 3a chronic kidney disease (HCC) Hypothyroidism, unspecified type Other iron deficiency anemia documented in this encounter [facility]08-01-[facility]24 History of Present illness Narrative* Delilah Cabrera, - 03/23/2024 8:20 AM EDT [facility]ARD[facility]ICINE CONSULT NOTE Casandra Henry [id number] PRIMARY SERVICE: Internal Medicine CONSULTING SERVICE: Cardiovascular [...] SPEC WHEN PFRMD Comment: Colonoscopy done in [place] 02/19/2020: COLSC FLX W/REMOVAL LESION BY HOT [...] FCCP, FACOI documented in this encounterK[facility] History of Present illness Narrative* Sreekanth Cortez DO - 02/16/2024 7:00 AM EDT CC: Casandra eHnry is a 83 year old female who [...] WHEN PFRMD 12/05/[address] [facility] FLX W/REMOVAL LESION BY HOT [...] plan. See patient instructions. Sreekanth Cortez DO [address] [place] [address] documented in this encounterK[facility] Evaluation note* Diagnosis Essential hypertension- Primary Unspecified essential hypertension Stage 3a chronic kidney disease (HCC) Hypothyroidism, unspecified type Other iron deficiency anemia Vitamin D deficiency Unspecified vitamin D deficiency documented in this encounter [facility]-20[facility]24 Telephone encounter Note* Telephone Encounter - Aby Sanches MA - 02/10/2024 9:21 AM EDT Call to pt. After reviewing chart, pt has already completed labs and they are in process. LM on stating that no call back is needed. Aby Sanches MA [facility]06-20-2024 Miscellaneous Notes* Telephone Encounter - Aby Sanches MA - 02/10/2024 9:21 AM EDT Call to pt. After reviewing chart, pt has already completed labs and they are in process. LM on stating that no call back is needed. Aby Sanches MA * Telephone Encounter - Sreekanth Cortez DO - 02/09/2024 10:41 PM EDT Orders placed for blood work to be drawn Please notify her Sreekanth Almaraz DO [place] * Telephone Encounter - Heather Shetty LPN - 02/09/2024 11:30 AM EDT Pt calling for lab orders. Please advise pt when orders are in place. Not certain what labs you wanted pt to have. Please review and advise pt back. Pt has apt 02-14-24. Heather Shetty LPN documented in this encounterK[facility] Evaluation note* Diagnosis Stage 3a chronic kidney disease (HCC)- Primary Essential hypertension Unspecified essential hypertension Hypothyroidism, unspecified type Other iron deficiency anemia Vitamin D deficiency Unspecified vitamin D deficiency Fatigue, unspecified type documented in this encounter [facility]06-19-2024 Telephone encounter Note* Telephone Encounter - Sreekanth Cortez DO Sung - 02/09/2024 10:41 PM EDT Orders placed for blood work to be drawn Please notify her Sreekanth Almaraz DO [place] [facility]06-19-2024 Telephone encounter Note* Telephone Encounter - Heather Shetty LPN - 02/09/2024 11:30 AM EDT Pt calling for lab orders. Please advise pt when orders are in place. Not certain what labs you wanted pt to have. Please review and advise pt back. Pt has apt 02-14-24. Heather Shetty LPN [facility]04-03-2024 Instructions* Patient Instructions* Gabi More APRN.P[employer]OD BUYER - 11/24/2023 9:04 AM EDT I would [...] months with Dr. Cabrera documented in this encounterK[facility]04[facility] History of Present illness Narrative* Gabi More APRN.CNP - 11/24/2023 8:47 AM EDT Images from the original note were not included. [facility] [place] [facility] Department of Cardiovascular Medicine SECTION [...] which included preparing to see the patient, [id number] patient care, completing clinical documentation, performing a [...] to the follow up. Gabi More APRN.[facility] Cardiology Nurse Practitioner Section of [facility] Cardiology [facility] Dept of Cardiovascular Medicine [facility] [place] [address] [place] [address] Office Office November 24, 2023 8:47 AM This note was partially generated using [employer] voice recognition system and may contain errors [...] already performed. Other chronic findings, as above. Occupational Therapy Assist: DELIA Transcribe Date/Time: Aug 11 2023 7:28P [...] PFSH and ROS obtained by others. Gabi More, COMPOSITION ROOFER.PULPWOOD BUYER CURRENT MEDICATIONS: Current Outpatient Medications Medication Sig [...] this visit. documented in this encounterK[facility]03-[facility]-2024 Miscellaneous Notes* Telephone Encounter - Marti Stahl [...] Marti Wright. documented in this encounterK[facility]03-17-2024 Miscellaneous Notes* Telephone Encounter - Karen Victoria LPN - 11/07/2023 8:18 AM EDT on patient notified.Karen Victoria LPN * Telephone Encounter - Justice Gaines PA - 11/07/2023 8:10 AM EDT Negative for COVID flu RSV documented in this encounterKet[facility]03-16-2024 History of Present illness Narrative* Ruel Fleming [...] PATIENT PRESENTS WITH AN IMPLANTABLE OR ATTACHED CLAIMS COORDINATOR: No RADIOLOGY DEPARTMENT: General X-ray: Exam(s) Completed: Chest X-Ray PERIPHERAL IV DATA: Not applicable SIGNED BY: RT Wendy(R) November 06, 2023 8:36 AM documented in this encounterKet[facility]03-16-2024 History of Present illness Narrative* Justice Gaines PA - 11/06/2023 8:26 AM EDT This note was created using [employer]. Subjective Casandra Henry is a 83 year [...] WHEN PFRMD 12/05/[address] [facility] FLX W/REMOVAL LESION BY HOT [...] CALVIN King documented in this encounterKet[facility]03-06-2024 History of Present illness Narrative* Sreekanth Cortez, - 10/27/2023 10:43 PM EST CC: Casandra [...] metoprolol as prescribed. Has been seen by Shot [employer] Drill Operator. PAST MEDICAL HISTORY Diagnosis Date Acid reflux Hiatal hernia Hypertension Hypothyroid Palpitation PAST SURGICAL HISTORY Procedure Laterality Date CARPAL TUNNEL 2001 bilateral COLONOSCOPY FLX DX W/COLLJ SPEC WHEN PFRMD 12/05/[address] [facility] FLX W/REMOVAL LESION BY HOT [...] a day at this time, f/u with [employer] Drill Operator 4. Hypothyroidism, unspecified type - ICD9: 244.9, [...] See patient instructions. Sreekanth Cortez DO [address] [place] [address] documented in this encounterK[facility]02-19-2024 Miscellaneous Notes* Telephone Encounter - Marti Stahl [...] Marti Wright. documented in this encounterKettering [facility]02-16-2024 Miscellaneous Notes* Telephone Encounter - Silvana Rousseau - 10/08/2023 8:58 AM EST Pt informed, verbalized understanding. Silvana Rousseau * Telephone Encounter - Donita Estes APRN.CNP - 10/08/2023 7:07 AM EST Please call patient and let her know that lab work results look great! Thyroid labs are all within normal limits. Sodium level remains stable despite discontinuing supplement. No concerns. Thank you, Donita Estes APRN.PULPWOOD BUYER documented in this encounterKettering [facility]02-15-2024 History of Present illness Narrative* Donita Estes [...] on sodium supplement. Hypokalemia improved with this. Shot Core Drill Operator thought this supplement may be increasing BP [...] WHEN PFRMD 12/05/[address] [facility] FLX W/REMOVAL LESION BY HOT [...] - Tdap) due on 05/17/2024 Covid-19 Vaccine( - 2022- season) due on 05/17/2024 RSV Vaccine(1 - [...] Patient agreeable to treatment plan. Donita Gonzales APRN.P[employer]OD BUYER [address] [place] [address] documented in this encounterKet[facility]01-20-2024 Telephone encounter Note * Telephone Encounter - Karen Soriano - 09/11/2023 8:12 AM EST .RX [facility] Work Phone: 1(983) 955-538701-20-2024 Miscellaneous Notes* Telephone Encounter - Karen Soriano - 09/11/2023 8:12 AM EST .RX documented in this encounterKettering [facility]12-14-2023 Miscellaneous Notes* Telephone Encounter - Aby Sanches Ma - 08/05/2023 1:35 PM EST Call to pt and notified her of results and recommendation below from Provider. Verbalized understanding. Aby Sanches Ma * Telephone Encounter - Donita Estes [...] in 1 week. Thank you, Donita Estes APRN.PULPWOOD BUYER documented in this encounterKettering [facility]12-06-2023 Miscellaneous Notes* Telephone Encounter - Silvana Rousseau [...] Rousseau MA * Telephone Encounter - Donita Etses APRN.CNP - 07/28/2023 10:20 AM EST Please call patient and let her know that mag and vitamin B12 were normal. Urine culture was also negative with no bacteria growth at all. Thank you, Donita Estes APRN.PULPWOOD BUYER documented in this encounterKettering [facility]12-04-2023 Miscellaneous Notes* Telephone Encounter - Donita Estes [...] Estes APRN.SATISH documented in this encounterKettering [facility]12-04-2023 Miscellaneous Notes* Telephone Encounter - Chyna Ramirez [...] 1 week ago. Thank you, Donita Estes APRN.PULPWOOD BUYER * Telephone Encounter - Chyna Ramirez RN [...] adds labs. documented in this encounterKettering [facility]12-01-2023 Miscellaneous Notes* Telephone Encounter - Casandra Hairston LPN - 07/23/2023 10:38 AM EST Spoke with pt gave information provided. Pt voices understanding. * Telephone Encounter - Donita Estes APRN.PULPWOOD BUYER - 07/23/2023 10:02 AM EST Thyroid levels [...] any other suggestions. Thank you, Donita Estes APRN.PULPWOOD BUYER * Telephone Encounter - Anita Guevara RN [...] the constipation? Pt uses [facility] in [place]. documented in this encounterKettering Health [facility]ble11-29-2023 Nurse Note* Casandra Hairston LPN - 07/21/2023 8:19 AM EST EVENT MONITOR DISPOSABLE PATCH INSTRUCTIONS Patient Name: Casandra Henry [facility] Number: [id number] Skin prepped and cleansed with alcohol Patch secured to prepped area Monitor Activated Serial #: [id number] Patient Instructed: Prescribed order timeframe Bathing guidelines Usage of event button and diary documentation Return of monitor at the end of prescribed order Call with problems [phone] or [phone]. [phone] Patient expresses a good understanding of instructions Casandra Hairston LPN documented in this encounterKettering [facility]11-29-2023 History of Present illness Narrative* Donita Estes APRN.PULPWOOD BUYER - 07/21/2023 6:57 AM EST Chief Complaint [...] Recent ER visit on 06/29. 48 hour network controller showed: Rare PVCs, no runs. Average heart [...] WHEN PFRMD 12/05/[address] [facility] FLX W/REMOVAL LESION BY HOT [...] Tdap) due on 05/17/2024 Covid-19 Vaccine(4 - 2023-24 season) due on 05/17/2024 Diabetes Screening due [...] Patient agreeable to treatment plan. Donita Gonzales APRN.PULPWOOD BUYER [address] [place] [address] documented in this encounterKettering Health [facility]ble11-22-2023 History of Present illness Narrative* Sreekanth Cortez, DO - 07/14/2023 7:11 AM EST CC: Casandra Henry is a 83 year old female who presents to the office for follow up HPI: At appt March 2023 She was recently seen in the EMERGENCY DEPARTMENT due to elevated BLOOD PRESSURE in the 160s/90s and not feeling well. She had work up at [facility] in the EMERGENCY DEPARTMENT including cardiac [...] a week. At follow up appt with Dontia Estes CNP on 05/17/[address] Cortez [...] WHEN PFRMD 12/05/[address] [facility] FLX W/REMOVAL LESION BY HOT [...] See patient instructions. Sreekanth Cortez DO [address] [place] [address] documented in this encounterKettering [facility]11-21-2023 Miscellaneous Notes* Telephone Encounter - Gisselle Bush LPN - 07/13/2023 8:08 AM EST Pt. informed. * Telephone Encounter - Sreekanth Cortze DO - 07/12/2023 5:14 PM EST Please [...] Felix RN documented in this encounterKettering Health [facility]11-07-2023 Discharge summary Author Josselyn Adhikari [facility] June 29, 2023 3:14pm Note Date/Time June 29, 2023 1 1:03am [facility] Medical Records Department [address] [place] [id number] Emergency Department Summary 06/29/23 MR#: [id number] Acct: [id number] Name: CASANDRA HENRY Rep #:[id number] : 1940 83 From: Josselyn Adhikari DO [...] history of hyponatremia. Prior similar symptoms: Yes [facility] Medical History (Updated 06/29/23 @ 14:43 by [...] (Auto) 67.9 Lymph % (Auto) 18.0 L [place] % (Auto) 9.5 Eos % (Auto) 3.6 [...] Clear Urine pH 7.0 7.0 Ur Specific [place] 1.005 1.005 Urine Protein Negative Negative Urine [...] your Primary Care Provider. Call [facility] ([phone]) or report to the closest Emergency Room. Call 911 if necessary. 06/29/23 1514 <Electronically signed by Josselyn Adhikari DO> Cosigner Signature (if applicable): CC: Dr. Sreekanth Cortez DO ~ Signed [facility] Work Phone: 1(138) 780-865511-07-2023 History of Present illness Narrative* Yuan Syed [...] urgent care. states will transport patient to [facility]. verbalized understand agrees with plan of care. Yuan Syed APRN.SATISH documented in this encounterKettering [facility]11-01-2023 Miscellaneous Notes* Telephone Encounter - Gisselle Bush [...] RN - 06/22/2023 10:37 AM EDT [facility]- [facility]- reports patient is having 4 extractions this coming . Yanet is faxing a clearance form to pcp today, because patient informed them she had some low lab results. Patientsaw Donita on 06-16-23. Asking if pcp can clear patient for extractions, fill out/sign form and fax back to them at fax # [phone]. documented in this encounterKettering Health [facility]ble10-26-2023 Miscellaneous Notes* Telephone Encounter - Anita Cain [...] in 2 weeks. Thank you, Donita Estes APRN.PULPWOOD BUYER documented in this encounterKettering [facility]10-25-2023 History of Present illness Narrative* Donita Estes APRN.SATISH - 06/16/2023 8:00 AM EDT Chief Complaint Patient presents with: labs showed dehydration and sodium chloridelevels: Review lab results HPI Casandra Henry is a 83 year old female who presents here today for Above Complaints.. Casandra is an established patient of Dr. Cortez, and myself. Concerns today... Review lab work [...] WHEN PFRMD 12/05/[address] [facility] FLX W/REMOVAL LESION BY HOT [...] - Tdap) due on 05/17/2024 Covid-19 Vaccine( - season) due on 05/17/2024 Diabetes Screening [...] Patient agreeable to treatment plan. Donita Gonzales APRN.PULPWOOD BUYER [address] [place] [address] documented in this encounterKettering Health [facility]10-19-2023 Miscellaneous Notes* Telephone Encounter - Silvana Rousseau [...] once daily for about a week. Was [id number] one day per week prior. Silvana Rousseau MA * Telephone Encounter - Sreekanth Cortez DO - 06/09/2023 10:38 PM EDT Please call and clarify what dose of thyroid medication she is currently taking? Her TSH is still too low and free t4 is still too high. Her dose needs to be decreased. Sreekanth Cortez DO documented in this encounterKettering [facility]09-25-2023 History of Present illness Narrative* Donita Estes [...] WHEN PFRMD 12/05/[address] [facility] FLX W/REMOVAL LESION BY HOT [...] Patient agreeable to treatment plan. Donita Gonzales APRN.[facility] [address], [place] [id number] documented in this encounterK[facility]23 History of Present illness Narrative* Sreekanth Cortez Sung, DO - 03/31/2023 8:39 PM EDT CC: Casandra Henry is a 83 year old female who presents to the office for follow up HPI: She was recently seen in the EMERGENCY DEPARTMENT due to elevated BLOOD PRESSURE in the 160s/90s and not feeling well. She had work up at [facility] in the EMERGENCY DEPARTMENT including cardiac [...] WHEN PFRMD 12/05/[address] [facility] FLX W/REMOVAL LESION BY HOT [...] plan. See patient instructions. Sreekanth Cortez DO [address] [place] [address] documented in this encounterK[facility]08-09-2023 Instructions* Patient Instructions* Sreekanth Cortez DO - 03/31/2023 6:18 PM EDT Blood pressure goal 100-130s / 60-80s Pulse rate goal 60-80s documented in this encounterKettering [facility]07-24-2023 Miscellaneous Notes* Telephone Encounter - Emily Cates MA - 03/15/2023 10:04 AM EDT Prescription was already sent to the pharmacy this date. Emily Cates MA documented in this encounterKettering [facility]07-24-2023 History of Present illness Narrative* Sreekanth Cortez [...] WHEN PFRMD 12/05/[address] [facility] FLX W/REMOVAL LESION BY HOT [...] with the plan. Sreekanth Cortez DO [address] [place] [address] documented in this encounterKettering [facility]07-20-2023 Miscellaneous Notes* Telephone Encounter - Lorrie Feliciano [...] Feliciano LPN documented in this encounterKettering [facility]07-19-2023 History of Present illness Narrative* Marilyn Gutierrez [...] WHEN PFRMD 12/05/[address] [facility] FLX W/REMOVAL LESION BY HOT [...] Gutierrez PA-C documented in this encounterKettering [facility]ble07-19-2023 Miscellaneous Notes* Telephone Encounter - Roxanne Felix [...] is not normal. Protocols used: Dizziness - Pfxucizvwgmetre-OKBMO-KN, Blood Pressure - Qfln-MGFIU-BJ documented in this encounterKettering [facility]07-18-2023 Miscellaneous Notes* Telephone Encounter - Gisselle Bush [...] 25 mg tablet [Pharmacy Med Name: METOPROLOL [id number] MG TAB] 180 tablet 1 Sig: take 1 tablet by mouth twice a day Date of last office visit in primary care: 08/31/22 Last 2 Encounter Wt Readings: Date: Wt: 12/25/2022 64.9 kg (143 lb) 08/31/2022 65.3 kg (144 lb) Previous labs/tests for medication: Not applicable Please advise. Thank you. Gisselle Bush LPN documented in this encounterKettering [facility]05-11-2023 Miscellaneous Notes* Telephone Encounter - Esthela Levi [...] Cortez DO documented in this encounterKettering Health [facility]ble05-05-2023 History of Present illness Narrative* Adamaris Chavez [...] IV DATA: Not applicable SIGNED BY: RT Sanam(José Miguel) December 25, 2022 2:33 PM documented in this encounterKettering [facility]ble05-05-2023 History of Present illness Narrative* Sreekanth Cortez [...] WHEN PFRMD 12/05/[address] [facility] FLX W/REMOVAL LESION BY HOT [...] plan. See patient instructions. Sreekanth Cortez DO [address] [place] [address] documented in this encounterKettering [facility]ble01-23-2023 Miscellaneous Notes* Telephone Encounter - Anita Cain [...] Cain LPN documented in this encounterKettering Health [facility]ble01-19-2023 Miscellaneous Notes* Telephone Encounter - Lorrie Feliciano LPN - 09/10/2022 10:30 AM EST Patient has been identified by name and date of : Yes Patient phones for refill(s): Requested Prescriptions Pending Prescriptions Disp Refills metoprolol tartrate, short acting, (LOPRESSOR) 25 mg tablet [Pharmacy Med Name: METOPROLOL [id number] MG TAB] 180 tablet 1 Sig: take 1 tablet by mouth twice a day Date of last office visit in primary care: 08/31/2022 Please advise. Thank you. Lorrie Feliciano LPN documented in this encounterKettering [facility]01-10-2023 History of Present illness Narrative* Sreekanth Cortez [...] WHEN PFRMD 12/05/[address] [facility] FLX W/REMOVAL LESION BY HOT [...] with the plan. Sreekanth Cortez DO [address] [place] [address] documented in this encounterKettering Health [facility]ble12-19-2022 History of Present illness Narrative* Sergei Renner APRN.CNP - 08/10/2022 12:25 PM EST AMBULATORY TELEPHONE [...] APRN.CNP Nirmatrelvir/Ritonavir (Paxlovid) Eligibility and Patient Discussion [facility] Formulary Restriction Criteria: Adult outpatients 18 years [...] 12:33 PM documented in this encounterKettering [facility]ble12-19-2022 Miscellaneous Notes* Telephone Encounter - Karolina Bee [...] Bee RN documented in this encounterKettering Health [facility]ble11-16-2022 Instructions* Patient Instructions* Margoth Chavez - 07/08/2022 8:21 AM EST Start omeprazole 20mg daily , 30 minutes prior to breakfast. Watch spicy foods, try not to eat at least an hour prior to laying down documented in this encounterKettering Health [facility]ble11-16-2022 History of Present illness Narrative* Sergei Renner APRN.PULPWOOD BUYER - 07/08/2022 7:50 AM EST Chief Complaint [...] WHEN PFRMD 12/05/[address] [facility] FLX W/REMOVAL LESION BY HOT [...] VAS LAB - ECG COMPLETE Sergei Renner APRN.PULPWOOD BUYER documented in this encounterKettering Health [facility]ble08-15-2022 History of Present illness Narrative* Yann French [...] French MD documented in this encounterKettering Health [facility]ble07-07-2022 Miscellaneous Notes* Telephone Encounter - Silvana Freedman [...] Gonzales APRN.SATISH documented in this encounterK[facility]tering [facility]07-06-2022 History of Present illness Narrative* Donita Gonzales [...] Stage 3a Follows with kidney specialist through [facility]. Was going every 3 months but [...] WHEN PFRMD 12/05/[address] [facility] FLX W/REMOVAL LESION BY HOT [...] 585.3, ICD10: N18.31 Continue to follow with fermenter wine at routine intervals. - COMP METABOLIC PANEL [...] agreeable to treatment plan. Donita Gonzales APRN.CNP [address] [place] [address] documented in this encounterKettering Health PrebleDischarge summary Author Devaughn Amarogett [facility] Note Date/Time February 22, 2025 7:49a m [facility] Medical Records Department [address] [place] [address] Emergency Department Summary 02/22/25 MR#: [id number] Acct: [id number] Name: CASANDRA HENRY Rep #:[id number] : 1940 84 From: Devaughn velez DO PCP: Dr. Sreekanth Cortez DO Status:RE [...] intact Psych: Cooperative, appropriate mood and affect [facility] (Updated 02/22/25 @ 07:[address] Devaughn Farmer, ) Hypertension Home Medications ?Medication ?Instructions ?Recorded ?Last Taken ?Type levothyroxine 100 mcg tablet 100 mcg PO BREAKFAST 07/25 0/16 1 Day Ago History ~10/02/17 losartan [...] 03/20/23 @ 17:[address] Frederick Carrasco, ) History of carpal tunnel surgery Social History [...] changed. She states that she was on [id number] mg twice daily as well as metoprolol [...] or worsen. [facility] [...] % (Auto) 58.7 Lymph % (Auto) 21.6 [place] % (Auto) 11.4 H Eos % (Auto) [...] is identified in the chest. Reading Location: [facility] Brain CT 02/22/25 06:55 IMPRESSION: There is low-density in the deep white matter in the right and left consistent with chronic ischemic change, similar to the prior. No acute intracranial pathology. Reading Location: [facility] Discharge Plan Triage Chief Complaint: Hypertension ED [...] if symptoms change or worsen. Print Language: Amharic Disposition Disposition: Home, Self Care What to do if you have Problems For any increased pain, shortness of breath, bleeding, nausea or vomiting, chestpain, or any unexpected problems, contact your Primary Care Provider. Call [facility] ([phone]) or report to the closest Emergency Room. Call 911 if necessary. 02/22/25 0749 <Electronically signed by Devaughn Farmer DO> Cosigner Signature (if applicable): CC: Dr. Sreekanth Cortez DO ~ Signed [facility] Work Phone: Evaluation note* Diagnosis Essential hypertension- Primary Unspecified essential hypertension Bilateral leg edema Edema Hypothyroidism, unspecified type Vitamin D deficiency Unspecified vitamin D deficiency Stage 3a chronic kidney disease (HCC) Dyslipidemia Other and unspecified hyperlipidemia Other iron deficiency anemia Screening for diabetes mellitus documented in [facility] encounter [facility]* Diagnosis Bilateral leg edema Edema Hypothyroidism, unspecified type [facility]* Diagnosis Acute left flank pain- Primary Abdominal pain, unspecified site Urinary frequency documented in [facility]* Diagnosis Essential hypertension- Primary Unspecified essential hypertension Gastroesophageal reflux disease, unspecified whether esophagitis present documented in this encounter [facility] note* Diagnosis COVID- Primary documented in this encounter [facility] note* Diagnosis Essential hypertension- Primary Unspecified essential hypertension Gastroesophageal reflux disease, unspecified whether esophagitis present Bilateral leg edema Edema Hypothyroidism, unspecified type Vitamin D deficiency Unspecified vitamin D deficiency Stage 3a chronic kidney disease (HCC) Dyslipidemia Other and unspecified hyperlipidemia Other iron deficiency anemia documented in this encounter [facility] note* Diagnosis Essential hypertension Unspecified essential hypertension documented in this encounter [facility] note* Diagnosis Bilateral leg edema Edema documented in this encounter [facility] note* Diagnosis Lumbar radiculopathy- Primary Thoracic or lumbosacral neuritis or radiculitis, unspecified Chronic midline low back pain with bilateral sciatica documented in this encounter [facility] note* Diagnosis Essential hypertension Unspecified essential hypertension documented in this encounter [facility] note* Diagnosis Essential hypertension- Primary Unspecified essential hypertension documented in this encounter [facility] note* Diagnosis Bilateral leg edema Edema documented in this encounter [facility] note* Diagnosis Essential hypertension- Primary Unspecified essential hypertension Hypothyroidism, unspecified type Bilateral leg edema Edema Lumbar radiculopathy Thoracic or lumbosacral neuritis or radiculitis, unspecified Other iron deficiency anemia Dyslipidemia Other and unspecified hyperlipidemia documented in this encounter [facility] note* Diagnosis Hypothyroidism, unspecified type documented in this encounter [facility] noteNo assessment information availableWOhioHealth Doctors Hospital Work Phone: Evaluation note* Diagnosis Essential hypertension- Primary Unspecified essential hypertension Dysuria Hypothyroidism, unspecified type documented in this encounter [facility] note* Diagnosis Dizziness- Primary Dizziness and giddiness Hypothyroidism, unspecified type Essential hypertension Unspecified essential hypertension documented in this encounter [facility] note* Diagnosis Low sodium levels- Primary Hyposmolality and/or hyponatremia Hypothyroidism, unspecified type Other iron deficiency anemia Dizziness Dizziness and giddiness documented in this encounter [facility] note* Diagnosis Procedure not carried out- Primary Procedure not carried out for other reasons documented in this encounter [facility] note* Diagnosis Hyponatremia- Primary Hyposmolality and/or hyponatremia Anemia, unspecified type Hypothyroidism, unspecified type Dizziness Dizziness and giddiness Essential hypertension Unspecified essential hypertension Fatigue, unspecified type Shakiness Abnormal involuntary movements documented in this encounter [facility] note* Diagnosis Low sodium levels- Primary Hyposmolality and/or hyponatremia documented in this encounter [facility] note* Diagnosis Dizziness- Primary Dizziness and giddiness Hypothyroidism, unspecified type Essential hypertension Unspecified essential hypertension CHECO (generalized anxiety disorder) Generalized anxiety disorder Hyponatremia Hyposmolality and/or hyponatremia documented in this encounter [facility] note* Diagnosis Leukocytosis, unspecified type- Primary documented in this encounter [facility] note* Diagnosis Dizziness- Primary Dizziness and giddiness documented in this encounter [facility] note* Diagnosis Leukocytosis, unspecified type- Primary documented in this encounter [facility] note* Diagnosis Hyponatremia- Primary Hyposmolality and/or hyponatremia documented in this encounter [facility] note* Diagnosis Leukocytosis, unspecified type- Primary documented in this encounter [facility] note* Diagnosis Essential hypertension- Primary Unspecified essential hypertension Hyponatremia Hyposmolality and/or hyponatremia Hypothyroidism, unspecified type Other iron deficiency anemia Dyslipidemia Other and unspecified hyperlipidemia documented in this encounter [facility] note* Diagnosis CHECO (generalized anxiety disorder) Generalized anxiety disorder documented in this encounter [facility] note* Diagnosis Essential hypertension- Primary Unspecified essential hypertension Stage 3a chronic kidney disease (HCC) Hyponatremia Hyposmolality and/or hyponatremia Hypothyroidism, unspecified type documented in this encounter [facility] note* Diagnosis Acute cough- Primary URI, acute Acute upper respiratory infections of unspecified site documented in this encounter [facility] note* Diagnosis Hyponatremia- Primary Hyposmolality and/or hyponatremia Hypertension, essential Unspecified essential hypertension Palpitation Palpitations Hypothyroidism, unspecified type Iatrogenic hyperthyroidism 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 or storm documented in this encounter [facility] note* Diagnosis SVT (supraventricular tachycardia) (HCC)- Primary Other specified cardiac dysrhythmias Palpitations Essential hypertension Unspecified essential hypertension Hyperlipidemia, mixed Mixed hyperlipidemia Hypertension, essential Unspecified essential hypertension Palpitation Palpitations documented in this encounter [facility] note* Diagnosis Hypothyroidism, unspecified type- Primary documented in this encounter [facility] note* Diagnosis Acute cough [facility] Diagnosis Lumbar radiculopathy Thoracic or lumbosacral neuritis or radiculitis, unspecified Chronic midline low back pain with bilateral sciatica [facility]* Diagnosis Hypothyroidism, unspecified type- Primary documented [facility]* Diagnosis Hypothyroidism, unspecified type- Primary Hypertension, essential Unspecified essential hypertension Stage 3a chronic kidney disease (HCC) Other iron deficiency anemia Dyslipidemia Other and unspecified hyperlipidemia Vitamin D deficiency Unspecified vitamin D deficiency Fatigue, unspecified type Essential hypertension Unspecified essential hypertension [facility]* Diagnosis Hypothyroidism, unspecified type documented [facility]* Diagnosis Hypertension, essential Unspecified essential hypertension documented [facility]* Diagnosis Hypertension, essential- Primary Unspecified essential hypertension documented [facility]* Diagnosis Hypertension, essential- Primary Unspecified essential hypertension Stage 3a chronic kidney disease (HCC) Hypothyroidism, unspecified type Fatigue, unspecified type Dyslipidemia Other and unspecified hyperlipidemia Hyponatremia Hyposmolality and/or hyponatremia documented [facility]* Diagnosis Labile blood pressure- Primary Elevated blood pressure reading without diagnosis of hypertension Hypertension, essential Unspecified essential hypertension Hyponatremia Hyposmolality and/or hyponatremia Fatigue, unspecified type [facility]* Diagnosis Hyponatremia- Primary Hyposmolality and/or hyponatremia Hypertension, essential Unspecified essential hypertension documented [facility]* Diagnosis Hypertension, essential- Primary Unspecified essential hypertension Hyponatremia Hyposmolality and/or hyponatremia Screening for depression Encounter for screening examination for other mental health and behavioral disorders [facility] Discharge instructionsAdditional Instructions Plan is to increase your carvedilol to 25 mg twice daily. Continue your losartan. Hydralazine as needed. Monitor your blood pressure closely at home. Call your primary care's office this morning and let them know of the medication change. Return back to the ED if symptoms change or worsen.[facility] Work Phone: Hospital Discharge instructionsAdditional Instructions Your evaluation in the Emergency Department did not reveal any acute reason for admission. However, I want to emphasize that you may be early in the course of a disease process or illness even if it is not present. For this reason you should follow-up within 24 hours for reevaluation with either your primary care physician or if necessary back here in the Emergency Department. You should return to the Emergency Department immediately if your symptoms worsen or new symptoms develop.[facility] Work Phone: Reason for referral (narrative)* Outpatient Procedure (Routine) - Pending Review Specialty Diagnoses / Procedures Referred By Elsy shi Referred To Contact [facility] Diagnoses Gastroesophageal reflux disease, unspecified whether esophagitis present Essential hypertension Procedures ECG COMPLETE ECG ROUTINE ECG W/LEAST 12 LDS W/I&R Sergei Renner APRN.PULPWOOD BUYER [address] [place] [address] [facility] [address] [address] Referral ID Status Reason Start Date Expiration Date Visits Requested Visits Authorized [id number] Pending Review Auto-Generat ed Referral 2 07/08/2023 1 1 * Outpatient Procedure (Routine) - Pending Review Specialty Diagnoses / Procedures Referred By Elsy shi Referred To Contact [facility] Diagnoses Gastroesophageal reflux disease, unspecified whether esophagitis present Essential hypertension Procedures US CAROTID ARTERIES DOE VAS LAB DUPLEX SCAN EXTRACRANIAL ART COMPL BI STUDY Sergei Renner APRN.PULPWOOD BUYER [address] [place] [address] [facility] [address] [address] Referral ID Status Reason Start Date Expiration Date Visits Requested Visits Authorized [id number] Pending Review Auto-Generat ed Referral 2 07/08/2023 1 1 * Outpatient Procedure (Routine) - Authorized Specialty Diagnoses / Procedures Referred By Elsy shi Referred To Contact [facility] Diagnoses Gastroesophageal reflux disease, unspecified whether esophagitis present Essential hypertension Procedures ECHO ECHO TTHRC R-T 2D W/WOM-MODE COMPL SPEC&COLR D Sergei Renner, COMPOSITION ROOFER.PULPWOOD BUYER [address] [place] [address] [facility] [place] [address] [place] [id number] Referral ID Status Reason Start Date Expiration Date Visits Requested Visits Authorized [id number] Authorized Auto-Generat ed Referral 2 07/08/2023 1 1 [facility] for referral (narrative)* Outpatient Procedure (Routine) - Pending Review Specialty Diagnoses / Procedures Referred By Contac t Referred [facility] Diagnoses Dizziness Procedures US CAROTID ARTERIES DOE VAS LAB DUPLEX SCAN EXTRACRANIAL ART COMPL BI STUDY Donita Estes APRN.PULPWOOD BUYER [address] [place] [address] [facility] [address] [address] Referral ID Status Reason Start Date Expiration Date Visits Requested Visits Authorized [id number] Pending Review Auto-Generat ed Referral 3 07/20/2024 1 1 [facility] for referral (narrative)* Diagnostic Procedure Only (Routine) - Closed Specialty Diagnoses / Procedures Referred By Contac t Referred To Contact XR IMAGING Diagnoses Lumbar radiculopathy Chronic midline low back pain with bilateral sciatica Procedures XR LUMBAR GENERAL 3V AP/LAT/L5-S1 RADEX SPINE LUMBOSACRAL 2/3 VIEWS Sreekanth Cortez DO [address] [place] [address] [place] [address] Referral ID Status Reason Start Date Expiration Date V isits Requested Visits Authorized [id number] Closed Auto-Generate d Referral 12/25/2022 01/24/2024 1 1 [facility] for referral (narrative)No reason for referral information availableWOhioHealth Doctors Hospital Work Phone: Reason for visit Narrative* Diagnostic Procedure Only (Routine) - Closed Specialty Diagnoses / Procedures Referred By Contac t Referred To Contact XR IMAGING Diagnoses Lumbar radiculopathy Chronic midline low back pain with bilateral sciatica Procedures XR LUMBAR GENERAL 3V AP/LAT/L5-S1 RADEX SPINE LUMBOSACRAL 2/3 VIEWS Sreekanth Cortez, DO [address] [facility] [place] [address] [place] [address] Referral ID Status Reason Start Date Expiration Date V isits Requested Visits Authorized [id number] Closed Auto-Generate d Referral 12/25/2022 01/24/2024 1 1 [facility] Summary Purpose Family History Relationship Condition Age at Onset Recorded Date/T otis Unknown Family History?No pe rtinent history Unknown October 05, 2017 3:23pm Family History?No pe rtinent history Unknown October 05, 2017 3:23pm Relationship Condition Age at Onset Recorded Date/T otis Unknown Family History?No pe rtinent history Unknown October 05, 2017 2:23pm Family History?No pe rtinent history Unknown October 05, 2017 2:23pm Relationship Condition Age at Onset Recorded Date/T otis mother Cerebrovascular accident (CVA) Unknown Hypertension Unknown Cardiac disease Unknown father Malignant neoplasm Unknown sister Hypertension Unknown Diabetes mellitus Unknown brother Kidney disorder Unknown Advance Directives Advance Directive Response Recorded Date/ Time Advance Directives Yes September 6:49am Living Will Yes March 20, 2023 5:52pm Power of Body Trimmer Upholsterer Yes March 20 5:52pm Name of Medical Power of Body Trimmer Upholsterer ayla Meek band March 20, 2023 5:52pm Advance Directive Response Recorded Date/ Time Name of Medical Power of Body Trimmer Upholsterer ayla Meek band March 20, 2023 4:52pm Name of Medical Power of Body Trimmer Upholsterer spouse June 29, 2023 11:08am Advance Directives Yes September 5:49am Living Will Yes June 29 11:08am Power of Body Trimmer Upholsterer Yes June 29, 2023 11:08am Advance Directive Response Recorded Date/ Time Do you have a Healthcare Power of Body Trimmer Upholsterer? No February 22, 2025 6:07am Advance Directives Yes September 6:49am Date Activated Date Inactivated Comments 02/24/2025 5:38 PM 02/25/2025 7:15 PM Question Answer Comments Full Code Order Discussed With: Patient Advance Directive Response Recorded Date/ Time Do you have a Healthcare Power of Body Trimmer Upholsterer? No February 22, 2025 6:07am Do you have a Healthcare Power of Body Trimmer Upholsterer? Yes April 02, 2025 5:41am Advance Directives Yes September 6:49am Reason for Referral Specialty Diagnoses / Procedures Referred By Contac t Referred To Contact [facility] Diagnoses Lumbar radiculopathy Chronic midline low back pain with bilateral sciatica Procedures CONSULT TO PHYSICAL THERAPY PHYSICAL THERAPY EVALUATION HIGH COMPLEX 45 MINS [place], [place] [address] [place] [address] [facility] [place] [address] [place] [address] Referral ID Status Reason Start Date Expiration Date Visits Requested Visits Authorized [id number] Pending Review Auto-Generat ed Referral 12/25/2022 12/25/2023 1 1 Specialty Diagnoses / Procedures Referred By Contac t Referred To Contact XR IMAGING Diagnoses Lumbar radiculopathy Chronic midline low back pain with bilateral sciatica Procedures XR LUMBAR GENERAL 3V AP/LAT/L5-S1 RADEX SPINE LUMBOSACRAL 2/3 VIEWS Sreekanth Cortez, DO [address] [place] [address] Xr Imaging Referral ID Status Reason Start Date Expiration Date V isits Requested Visits Authorized [id number] Closed Auto-Generate d Referral 12/25/2022 01/24/2024 1 1 Specialty Diagnoses / Procedures Referred By Contac t Referred To Contact Diagnoses Hypothyroidism, unspecified type Sergei Renner, FERNANDEZ.[employer] [address] [place] [address] Referral ID Status Reason Start Date Expiration Date V isits Requested Visits Authorized [id number] Authorized 06/13/2024 07/13/2025 1 1 Chief Complaint and Reason for Visit Chief Complaint HYPERTENSION Chief Complaint HYPERTENSION DIZZINESS Chief Complaint Admit Date htn February 22, 2025 6:06a m Chief Complaint Admit Date htn February 22, 2025 6:06a m hypertension April 02, 2025 5: 37am Chief Complaint Admit Date htn February 22, 2025 6:06a m hypertension April 02, 2025 5: 37am HTN (SELF) April 04, 2025 8: 46am Additional Source Comments INFORMATION SOURCE (unrecogn ized section and content) DATE CREATED AUTHOR 02/16/2018 [facility] DATE CREATED AUTHOR AUTHOR'S ORGANIZ ATION 09/02/2018 [facility] DATE CREATED AUTHOR AUTHOR'S ORGANIZ ATION 03/02/2025 [facility] DATE CREATED AUTHOR AUTHOR'S ORGANIZ ATION 04/08/2025 [facility] DATE CREATED AUTHOR AUTHOR'S ORGANIZ ATION 04/09/2025 [facility] Source Comments (unrecognize d section and content) In the event this informatio n is protected by the Federal Confidentiality of Alcohol and Drug Abuse Patient Records regulations: The Federal rules restrict any use of the information to criminally investigate or prosecute any alcohol or drug abuse patient.[facility] the event this information is protected by the Federal Confidentiality of Alcohol and Drug Abuse Patient Records regulations: The Federal rules restrict any use of the information to criminally investigate or prosecute any alcohol or drug abuse patient.[facility]bleIn the event this information is protected by the Federal Confidentiality of Alcohol and Drug Abuse Patient Records regulations: The Federal rules restrict any use of the information to criminally investigate or prosecute any alcohol or drug abuse patient.[facility]bleIn the event this information is protected by the Federal Confidentiality of Alcohol and Drug Abuse Patient Records regulations: The Federal rules restrict any use of the information to criminally investigate or prosecute any alcohol or drug abuse patient.[facility]bleIn the event this information is protected by the Federal Confidentiality of Alcohol and Drug Abuse Patient Records regulations: The Federal rules restrict any use of the information to criminally investigate or prosecute any alcohol or drug abuse patient.[facility]bleIn the event this information is protected by the Federal Confidentiality of Alcohol and Drug Abuse Patient Records regulations: The Federal rules restrict any use of the information to criminally investigate or prosecute any alcohol or drug abuse patient.[facility]bleIn the event this information is protected by the Federal Confidentiality of Alcohol and Drug Abuse Patient Records regulations: The Federal rules restrict any use of the information to criminally investigate or prosecute any alcohol or drug abuse patient.[facility]bleIn the event this information is protected by the Federal Confidentiality of Alcohol and Drug Abuse Patient Records regulations: The Federal rules restrict any use of the information to criminally investigate or prosecute any alcohol or drug abuse patient.[facility]bleIn the event this information is protected by the Federal Confidentiality of Alcohol and Drug Abuse Patient Records regulations: The Federal rules restrict any use of the information to criminally investigate or prosecute any alcohol or drug abuse patient.[facility]In the event this information is protected by the Federal Confidentiality of Alcohol and Drug Abuse Patient Records regulations: The Federal rules restrict any use of the information to criminally investigate or prosecute any alcohol or drug abuse patient.[facility]In the event this information is protected by the Federal Confidentiality of Alcohol and Drug Abuse Patient Records regulations: The Federal rules restrict any use of the information to criminally investigate or prosecute any alcohol or drug abuse patient.[facility]bleIn the event this information is protected by the Federal Confidentiality of Alcohol and Drug Abuse Patient Records regulations: The Federal rules restrict any use of the information to criminally investigate or prosecute any alcohol or drug abuse patient.[facility]bleIn the event this information is protected by the Federal Confidentiality of Alcohol and Drug Abuse Patient Records regulations: The Federal rules restrict any use of the information to criminally investigate or prosecute any alcohol or drug abuse patient.[facility]bleIn the event this information is protected by the Federal Confidentiality of Alcohol and Drug Abuse Patient Records regulations: The Federal rules restrict any use of the information to criminally investigate or prosecute any alcohol or drug abuse patient.[facility]In the event this information is protected by the Federal Confidentiality of Alcohol and Drug Abuse Patient Records regulations: The Federal rules restrict any use of the information to criminally investigate or prosecute any alcohol or drug abuse patient.[facility]bleIn the event this information is protected by the Federal Confidentiality of Alcohol and Drug Abuse Patient Records regulations: The Federal rules restrict any use of the information to criminally investigate or prosecute any alcohol or drug abuse patient.[facility]bleIn the event this information is protected by the Federal Confidentiality of Alcohol and Drug Abuse Patient Records regulations: The Federal rules restrict any use of the information to criminally investigate or prosecute any alcohol or drug abuse patient.[facility]bleIn the event this information is protected by the Federal Confidentiality of Alcohol and Drug Abuse Patient Records regulations: The Federal rules restrict any use of the information to criminally investigate or prosecute any alcohol or drug abuse patient.[facility]bleIn the event this information is protected by the Federal Confidentiality of Alcohol and Drug Abuse Patient Records regulations: The Federal rules restrict any use of the information to criminally investigate or prosecute any alcohol or drug abuse patient.[facility]bleIn the event this information is protected by the Federal Confidentiality of Alcohol and Drug Abuse Patient Records regulations: The Federal rules restrict any use of the information to criminally investigate or prosecute any alcohol or drug abuse patient.[facility]bleIn the event this information is protected by the Federal Confidentiality of Alcohol and Drug Abuse Patient Records regulations: The Federal rules restrict any use of the information to criminally investigate or prosecute any alcohol or drug abuse patient.[facility]bleIn the event this information is protected by the Federal Confidentiality of Alcohol and Drug Abuse Patient Records regulations: The Federal rules restrict any use of the information to criminally investigate or prosecute any alcohol or drug abuse patient.[facility]In the event this information is protected by the Federal Confidentiality of Alcohol and Drug Abuse Patient Records regulations: The Federal rules restrict any use of the information to criminally investigate or prosecute any alcohol or drug abuse patient.[facility]bleIn the event this information is protected by the Federal Confidentiality of Alcohol and Drug Abuse Patient Records regulations: The Federal rules restrict any use of the information to criminally investigate or prosecute any alcohol or drug abuse patient.[facility]bleIn the event this information is protected by the Federal Confidentiality of Alcohol and Drug Abuse Patient Records regulations: The Federal rules restrict any use of the information to criminally investigate or prosecute any alcohol or drug abuse patient.[facility]In the event this information is protected by the Federal Confidentiality of Alcohol and Drug Abuse Patient Records regulations: The Federal rules restrict any use of the information to criminally investigate or prosecute any alcohol or drug abuse patient.[facility]In the event this information is protected by the Federal Confidentiality of Alcohol and Drug Abuse Patient Records regulations: The Federal rules restrict any use of the information to criminally investigate or prosecute any alcohol or drug abuse patient.[facility]In the event this information is protected by the Federal Confidentiality of Alcohol and Drug Abuse Patient Records regulations: The Federal rules restrict any use of the information to criminally investigate or prosecute any alcohol or drug abuse patient.[facility]bleIn the event this information is protected by the Federal Confidentiality of Alcohol and Drug Abuse Patient Records regulations: The Federal rules restrict any use of the information to criminally investigate or prosecute any alcohol or drug abuse patient.[facility]bleIn the event this information is protected by the Federal Confidentiality of Alcohol and Drug Abuse Patient Records regulations: The Federal rules restrict any use of the information to criminally investigate or prosecute any alcohol or drug abuse patient.[facility]In the event this information is protected by the Federal Confidentiality of Alcohol and Drug Abuse Patient Records regulations: The Federal rules restrict any use of the information to criminally investigate or prosecute any alcohol or drug abuse patient.[facility]In the event this information is protected by the Federal Confidentiality of Alcohol and Drug Abuse Patient Records regulations: The Federal rules restrict any use of the information to criminally investigate or prosecute any alcohol or drug abuse patient.[facility]bleIn the event this information is protected by the Federal Confidentiality of Alcohol and Drug Abuse Patient Records regulations: The Federal rules restrict any use of the information to criminally investigate or prosecute any alcohol or drug abuse patient.[facility]In the event this information is protected by the Federal Confidentiality of Alcohol and Drug Abuse Patient Records regulations: The Federal rules restrict any use of the information to criminally investigate or prosecute any alcohol or drug abuse patient.[facility]bleIn the event this information is protected by the Federal Confidentiality of Alcohol and Drug Abuse Patient Records regulations: The Federal rules restrict any use of the information to criminally investigate or prosecute any alcohol or drug abuse patient.[facility]In the event this information is protected by the Federal Confidentiality of Alcohol and Drug Abuse Patient Records regulations: The Federal rules restrict any use of the information to criminally investigate or prosecute any alcohol or drug abuse patient.[facility]bleIn the event this information is protected by the Federal Confidentiality of Alcohol and Drug Abuse Patient Records regulations: The Federal rules restrict any use of the information to criminally investigate or prosecute any alcohol or drug abuse patient.[facility]In the event this information is protected by the Federal Confidentiality of Alcohol and Drug Abuse Patient Records regulations: The Federal rules restrict any use of the information to criminally investigate or prosecute any alcohol or drug abuse patient.[facility]bleIn the event this information is protected by the Federal Confidentiality of Alcohol and Drug Abuse Patient Records regulations: The Federal rules restrict any use of the information to criminally investigate or prosecute any alcohol or drug abuse patient.[facility]bleIn the event this information is protected by the Federal Confidentiality of Alcohol and Drug Abuse Patient Records regulations: The Federal rules restrict any use of the information to criminally investigate or prosecute any alcohol or drug abuse patient.[facility]bleIn the event this information is protected by the Federal Confidentiality of Alcohol and Drug Abuse Patient Records regulations: The Federal rules restrict any use of the information to criminally investigate or prosecute any alcohol or drug abuse patient.[facility]bleIn the event this information is protected by the Federal Confidentiality of Alcohol and Drug Abuse Patient Records regulations: The Federal rules restrict any use of the information to criminally investigate or prosecute any alcohol or drug abuse patient.[facility]bleIn the event this information is protected by the Federal Confidentiality of Alcohol and Drug Abuse Patient Records regulations: The Federal rules restrict any use of the information to criminally investigate or prosecute any alcohol or drug abuse patient.[facility]bleIn the event this information is protected by the Federal Confidentiality of Alcohol and Drug Abuse Patient Records regulations: The Federal rules restrict any use of the information to criminally investigate or prosecute any alcohol or drug abuse patient.[facility]bleIn the event this information is protected by the Federal Confidentiality of Alcohol and Drug Abuse Patient Records regulations: The Federal rules restrict any use of the information to criminally investigate or prosecute any alcohol or drug abuse patient.[facility]bleIn the event this information is protected by the Federal Confidentiality of Alcohol and Drug Abuse Patient Records regulations: The Federal rules restrict any use of the information to criminally investigate or prosecute any alcohol or drug abuse patient.[facility]bleIn the event this information is protected by the Federal Confidentiality of Alcohol and Drug Abuse Patient Records regulations: The Federal rules restrict any use of the information to criminally investigate or prosecute any alcohol or drug abuse patient.[facility]In the event this information is protected by the Federal Confidentiality of Alcohol and Drug Abuse Patient Records regulations: The Federal rules restrict any use of the information to criminally investigate or prosecute any alcohol or drug abuse patient.[facility]bleIn the event this information is protected by the Federal Confidentiality of Alcohol and Drug Abuse Patient Records regulations: The Federal rules restrict any use of the information to criminally investigate or prosecute any alcohol or drug abuse patient.[facility]bleIn the event this information is protected by the Federal Confidentiality of Alcohol and Drug Abuse Patient Records regulations: The Federal rules restrict any use of the information to criminally investigate or prosecute any alcohol or drug abuse patient.[facility]bleIn the event this information is protected by the Federal Confidentiality of Alcohol and Drug Abuse Patient Records regulations: The Federal rules restrict any use of the information to criminally investigate or prosecute any alcohol or drug abuse patient.[facility]bleIn the event this information is protected by the Federal Confidentiality of Alcohol and Drug Abuse Patient Records regulations: The Federal rules restrict any use of the information to criminally investigate or prosecute any alcohol or drug abuse patient.[facility]In the event this information is protected by the Federal Confidentiality of Alcohol and Drug Abuse Patient Records regulations: The Federal rules restrict any use of the information to criminally investigate or prosecute any alcohol or drug abuse patient.[facility]bleIn the event this information is protected by the Federal Confidentiality of Alcohol and Drug Abuse Patient Records regulations: The Federal rules restrict any use of the information to criminally investigate or prosecute any alcohol or drug abuse patient.[facility]In the event this information is protected by the Federal Confidentiality of Alcohol and Drug Abuse Patient Records regulations: The Federal rules restrict any use of the information to criminally investigate or prosecute any alcohol or drug abuse patient.[facility]In the event this information is protected by the Federal Confidentiality of Alcohol and Drug Abuse Patient Records regulations: The Federal rules restrict any use of the information to criminally investigate or prosecute any alcohol or drug abuse patient.[facility]In the event this information is protected by the Federal Confidentiality of Alcohol and Drug Abuse Patient Records regulations: The Federal rules restrict any use of the information to criminally investigate or prosecute any alcohol or drug abuse patient.[facility]bleIn the event this information is protected by the Federal Confidentiality of Alcohol and Drug Abuse Patient Records regulations: The Federal rules restrict any use of the information to criminally investigate or prosecute any alcohol or drug abuse patient.[facility]In the event this information is protected by the Federal Confidentiality of Alcohol and Drug Abuse Patient Records regulations: The Federal rules restrict any use of the information to criminally investigate or prosecute any alcohol or drug abuse patient.[facility]bleIn the event this information is protected by the Federal Confidentiality of Alcohol and Drug Abuse Patient Records regulations: The Federal rules restrict any use of the information to criminally investigate or prosecute any alcohol or drug abuse patient.[facility]bleIn the event this information is protected by the Federal Confidentiality of Alcohol and Drug Abuse Patient Records regulations: The Federal rules restrict any use of the information to criminally investigate or prosecute any alcohol or drug abuse patient.[facility]bleIn the event this information is protected by the Federal Confidentiality of Alcohol and Drug Abuse Patient Records regulations: The Federal rules restrict any use of the information to criminally investigate or prosecute any alcohol or drug abuse patient.[facility]bleIn the event this information is protected by the Federal Confidentiality of Alcohol and Drug Abuse Patient Records regulations: The Federal rules restrict any use of the information to criminally investigate or prosecute any alcohol or drug abuse patient.[facility]bleIn the event this information is protected by the Federal Confidentiality of Alcohol and Drug Abuse Patient Records regulations: The Federal rules restrict any use of the information to criminally investigate or prosecute any alcohol or drug abuse patient.[facility]bleIn the event this information is protected by the Federal Confidentiality of Alcohol and Drug Abuse Patient Records regulations: The Federal rules restrict any use of the information to criminally investigate or prosecute any alcohol or drug abuse patient.[facility]bleIn the event this information is protected by the Federal Confidentiality of Alcohol and Drug Abuse Patient Records regulations: The Federal rules restrict any use of the information to criminally investigate or prosecute any alcohol or drug abuse patient.[facility]bleIn the event this information is protected by the Federal Confidentiality of Alcohol and Drug Abuse Patient Records regulations: The Federal rules restrict any use of the information to criminally investigate or prosecute any alcohol or drug abuse patient.[facility]bleIn the event this information is protected by the Federal Confidentiality of Alcohol and Drug Abuse Patient Records regulations: The Federal rules restrict any use of the information to criminally investigate or prosecute any alcohol or drug abuse patient.[facility]bleIn the event this information is protected by the Federal Confidentiality of Alcohol and Drug Abuse Patient Records regulations: The Federal rules restrict any use of the information to criminally investigate or prosecute any alcohol or drug abuse patient.[facility]bleIn the event this information is protected by the Federal Confidentiality of Alcohol and Drug Abuse Patient Records regulations: The Federal rules restrict any use of the information to criminally investigate or prosecute any alcohol or drug abuse patient.[facility] Reason for Visit (unrecogniz ed section and content) Reason Comments Physical Specialty Diagnoses / Procedures Referred By Contac t Referred To Contact Family Practice / FAMILY MEDICINE Diagnoses Physical Procedures OFFICE/OUTPATIENT ESTABLISHED MOD MDM 30-39 MIN 4C EST MD Janet Willoughby Alyson, [employer] [address] [place] [address] Referral ID Status Reason Start Date Expiration Date Visits Re quested Visits Authorized [id number] Closed 02/25/2022 08/22/2022 1 1 Reason Comments [...] lab results Reason Comments Clearance Form from [facility] Reason Comments Patient Question Reason Comments [...] Care Teams (unrecognized sec tion and content) Instructional Support Assistant Relationship Specialty Start Date End Date Sreekanth Cortez, DO [address] [place] [address] PCP - General Family Practice 02/28/16 Instructional Support Assistant Relationship Specialty Start Date End Date Sreekanth Cortez DO [address] [place] [address] PCP - General Family Practice 02/28/16 Instructional Support Assistant Relationship Specialty Start Date End Date Sreekanth Cortez, DO [address] [place] [address] PCP - General Family Practice 02/28/16 Instructional Support Assistant Relationship Specialty Start Date End Date Sreekanth Cortez, DO [address] [facility] [place] [address] PCP - General Family Medicine 02/28/16 Instructional Support Assistant Relationship Specialty Start Date End Date Sreekanth Cortez, [address] [facility] [place] [address] PCP - General Family Medicine 02/28/16 Instructional Support Assistant Relationship Specialty Start Date End Date Sreekanth Cortez, [address] [facility] [place] [address] PCP - General Family Medicine 02/28/16 Instructional Support Assistant Relationship Specialty Start Date End Date Sreekanth Cortez DO [address] [facility] [place] [address] PCP - General Family Medicine 02/28/16 Instructional Support Assistant Relationship Specialty Start Date End Date Sreekanth Cortez DO [address] [facility] [place] [address] PCP - General Family Medicine 02/28/16 Instructional Support Assistant Relationship Specialty Start Date End Date Sreekanth Cortez DO [address] [facility] [place] [address] PCP - General Family Medicine 02/28/16 Instructional Support Assistant Relationship Specialty Start Date End Date Sreekanth Cortez DO [address] [facility] [place] [address] PCP - General Family Medicine 02/28/16 Instructional Support Assistant Relationship Specialty Start Date End Date Sreekanth Cortez DO [address] [facility] [place] [address] PCP - General Family Medicine 02/28/16 Instructional Support Assistant Relationship Specialty Start Date End Date Sreekanth Cortez DO [address] [facility] [place] [address] PCP - General Family Medicine 02/28/16 Instructional Support Assistant Relationship Specialty Start Date End Date Sreekanth Cortez DO [address] [place] [address] PCP - General Family Medicine 02/28/16 Instructional Support Assistant Relationship Specialty Start Date End Date Sreekanth Cortez DO [address] [place] [address] PCP - General Family Medicine 02/28/16 Team Status: Active Member Role Status Dates Dr. Sreekanth Cortez , DO Family Provider Active Dr. Sreekanth Cortez , DO Primary Care Provider Active Team Status: Inactive Member Role Status Dates Dr. Sreekanth Cortez , DO Primary Care Provider Active Dr. Frederick Carrasco , DO Emergency Provider Active Instructional Support Assistant Relationship Specialty Start Date End Date Sreekanth Cortez DO [address] [place] [address] PCP - General Family Medicine 02/28/16 Instructional Support Assistant Relationship Specialty Start Date End Date Sreekanth Cortez DO [address] [place] [address] PCP - General Family Medicine 02/28/16 Instructional Support Assistant Relationship Specialty Start Date End Date Sreekanth Cortez DO [address] [place] [address] PCP - General Family Medicine 02/28/16 Team Status: Inactive Member Role Status Dates Dr. Sreekanth Cortez DO Primary Care Provider Active Dr. Frederick Carrasco , DO Attending Provider, Emergency P kaylah Active Team Status: Inactive Member Role Status Dates Dr. Sreekanth Cortez , DO Primary Care Provider Active Dr. Josselyn Adhikari , DO Emergency Provider Active Instructional Support Assistant Relationship Specialty Start Date End Date Sreekanth Cortez DO [address] [place] [address] PCP - General Family Medicine 02/28/16 Instructional Support Assistant Relationship Specialty Start Date End Date Sreekanth Cortez DO [address] [place] [address] PCP - General Family Medicine 02/28/16 Instructional Support Assistant Relationship Specialty Start Date End Date Sreekanth Cortez DO [address] [place] [address] PCP - General Family Medicine 02/28/16 Instructional Support Assistant Relationship Specialty Start Date End Date Sreekanth Cortez DO [address] [place] [address] PCP - General Family Medicine 02/28/16 Instructional Support Assistant Relationship Specialty Start Date End Date Sreekanth Cortez DO [address] [place] [address] PCP - General Family Medicine 02/28/16 Instructional Support Assistant Relationship Specialty Start Date End Date Sreekanth Cortez DO [address] [place] [address] PCP - General Family Medicine 02/28/16 Instructional Support Assistant Relationship Specialty Start Date End Date Sreekanth Cortez DO [address] [place] [address] PCP - General Family Medicine 02/28/16 Instructional Support Assistant Relationship Specialty Start Date End Date Sreekanth Cortez DO [address] [place] [address] PCP - General Family Medicine 02/28/16 Instructional Support Assistant Relationship Specialty Start Date End Date Sreekanth Cortez DO [address] [facility] [place] [address] PCP - General Family Medicine 02/28/16 Instructional Support Assistant Relationship Specialty Start Date End Date Sreekanth Cortez DO [address] [facility] [place] [address] PCP - General Family Medicine 02/28/16 Instructional Support Assistant Relationship Specialty Start Date End Date Sreekanth Cortez DO [address] [facility] [place] [address] PCP - General Family Medicine 02/28/16 Instructional Support Assistant Relationship Specialty Start Date End Date Sreekanth Cortez DO [address] [facility] [place] [address] PCP - General Family Medicine 02/28/16 Instructional Support Assistant Relationship Specialty Start Date End Date Sreekanth Cortez DO [address] [place] [address] PCP - General Family Medicine 02/28/16 Instructional Support Assistant Relationship Specialty Start Date End Date Sreekanth Cortez DO [address] [facility] [place] [address] PCP - General Family Medicine 02/28/16 Instructional Support Assistant Relationship Specialty Start Date End Date Sreekanth Cortez, [address] [place] [address] PCP - General Family Medicine 02/28/16 Donita Estes, FERNANDEZ.P[employer]PWOOD BUYER [address] [facility] [place] [address] Fiberglass Technician Family Medicine 07/30/24 Sergei Renner APRN.PULPWOOD BUYER [address] [place] [address] Fiberglass Technician [facility] 07/30/24 Instructional Support Assistant Relationship Specialty Start Date End Date Sreekanth Cortez DO [address] [facility] [place] [address] PCP - General Family Medicine 02/28/16 Donita Estes, COMPOSITION ROOFER.PULPWOOD BUYER [address] [place] [address] Fiberglass Technician [facility] 07/30/24 ZurdoSergei, COMPOSITION ROOFER.PULPWOOD BUYER [address] [place] [address] [facility] Instructional Support Assistant Relationship Specialty Start Date End Date Sreekanth Cortez DO [address] [place] [address] PCP - General Family Medicine 02/28/16 ZurdoSergei, COMPOSITION ROOFER.PULPWOOD BUYER [address] [place] [address] [facility]/30/24 Instructional Support Assistant Relationship Specialty Start Date End Date Sreekanth Cortez DO [address] [place] [address] PCP - General Family Medicine 02/28/16 ZurdoSergei, COMPOSITION ROOFER.P[employer]PWOOD BUYER [address] [place] [address] [facility] 07/30/24 Instructional Support Assistant Relationship Specialty Start Date End Date Sreekanth Cortez DO [address] [place] [address] PCP - General Family Medicine 02/28/16 Sergei Renner, COMPOSITION ROOFER.PULPWOOD BUYER [address] [place] [address] Fiberglass Technician Family [facility] 07/30/24 Instructional Support Assistant Relationship Specialty Start Date End Date Sreekanth Cortez DO [address] [place] [address] PCP - General Family Medicine 02/28/16 ZurdoSergei, COMPOSITION ROOFER.PULPWOOD BUYER [address] [place] [address] Fiberglass Technician Family [facility] 07/30/24 Instructional Support Assistant Relationship Specialty Start Date End Date Sreekanth Cortez DO [address] [place] [address] PCP - General Family Medicine 02/28/16 ZurdoSergei, COMPOSITION ROOFER.PULPWOOD BUYER [address] [place] [address] Fiberglass Technician Family Medicine 07/30/24 Margoth Chavez, COMPOSITION ROOFER.P[employer]PWOOD BUYER [address] [place] [address] [facility]/05/25 Instructional Support Assistant Relationship Specialty Start Date End Date Sreekanth Cortez DO [address] [place] [address] PCP - General Family Medicine 02/28/16 Sergei Renner, COMPOSITION ROOFER.PULPWOOD BUYER [address] [place], [place] [address] Fiberglass Technician Family [facility] 07/30/24 Margoth Chavez, COMPOSITION ROOFER.PULPWOOD BUYER [address] [facility], [place] [address] [phone] [facility] 02/05/25 Team Status: Active Member Role/Relationship Status Dates Dr. Sreekanth Cortez DO Primary Care Provider Active Team Status: Inactive Member Role/Relationship Status Dates Dr. Sreekanth Cortez DO Primary Care Provider Active Start: February 22, 2025 End: February 22, 2025 Dr. Devaughn Farmer DO Emergency Provider Activ e Start: February 22, 2025 End: February 22, 2025 Instructional Support Assistant Relationship Specialty Start Date End Date Sreekanth Cortez DO [address] [place] [address] PCP - General Family Medicine 02/28/16 [facility] Sergei, COMPOSITION ROOFER.P[employer]PWOOD BUYER [address] [place] [address] [facility] 07/30/24 Margoth Chavez, COMPOSITION ROOFER.P[employer]PWOOD BUYER [address] [place] [address] [facility] 02/05/25 Provider, MD Reynaldo Fiberglass Technician 02/25/25 03/10/25 Instructional Support Assistant Relationship Specialty Start Date End Date Sreekanth Cortez DO [address] [place] [address] PCP - General Family Medicine 02/28/16 [facility] Sergei, COMPOSITION ROOFER.P[employer]PWOOD BUYER [address] [place] [address] Fiberglass Technician Family [facility] 07/30/24 Margoth Chavez, COMPOSITION ROOFER.P[employer]PWOOD BUYER [address] [place] [address] Fiberglass Technician Family Medicine 02/05/25 Reynaldo Ordonez MD Fiberglass Technician 02/25/25 03/10/25 Instructional Support Assistant Relationship Specialty Start Date End Date Sreekanth Cortez DO [address] [place] [address] PCP - General Family Medicine 02/28/16 [facility], COMPOSITION ROOFER.PULPWOOD BUYER [address] [place] [address] Fiberglass Technician Family Medicine 07/30/24 Margoth Chavez, COMPOSITION ROOFER.PULPWOOD BUYER [address] [place] [address] Fiberglass Technician Family Medicine 02/05/25 Reynaldo Ordonez MD Fiberglass Technician 02/25/25 03/10/25 Instructional Support Assistant Relationship Specialty Start Date End Date Sreekanth Cortez DO [address] [place] [address] PCP - General Family Medicine 02/28/16 [facility], COMPOSITION ROOFER.PULPWOOD BUYER [address] [place] [address] Fiberglass Technician Family Medicine 07/30/24 Margoth Chavez, COMPOSITION ROOFER.PULPWOOD BUYER [address] [place] [address] Fiberglass Technician Family Medicine 02/05/25 Instructional Support Assistant Relationship Specialty Start Date End Date Sreekanth Cortez DO [address] [place] [address] PCP - General Family Medicine 02/28/16 [facility] Sergei, COMPOSITION ROOFER.P[employer]PWOOD BUYER [address] [place] [address] Fiberglass Technician [facility] 07/30/24 Margoth Chavez, COMPOSITION ROOFER.PULPWOOD BUYER [address] [place], [place] [address] [facility] 02/05/25 Team Status: Inactive Member Role/Relationship Status Dates Dr. Sreekanth Cortez DO Primary Care Provider Active Start: February 22, 2025 End: February 22, 2025 Dr. Devaughn Farmer DO Attending Provider Activ e Start: February 22, 2025 End: February 22, 2025 Dr. Devaughn Farmer DO Emergency Provider Activ e Start: February 22, 2025 End: February 22, 2025 Team Status: Inactive Member Role/Relationship Status Dates Dr. Sreekanth Cortez DO Primary Care Provider Active Start: April 02, 2025 End: April 02, 2025 Dr. Litzy Mcbride MD Emergency Provider Active S tart: April 02, 2025 End: April 02, 2025 Instructional Support Assistant Relationship Specialty Start Date End Date Sreekanth Cortez DO [address] [place] [address] PCP - General Family Medicine 02/28/16 [facility] COMPOSITION ROOFER.PULPWOOD BUYER [address] [place] [address] [facility] 07/30/24 Margoth Chavez, COMPOSITION ROOFER.PULPWOOD BUYER [address] [place] [address] [facility] 02/05/25 Team Status: Inactive Member Role/Relationship Status Dates Dr. Sreekanth Cortez DO Primary Care Provider Active Start: April 04, 2025 End: April 04, 2025 Dr. Sreekanth Cortez DO Referring Provider Active Start: April 04, 2025 End: April 04, 2025 Dr. Sidney Lewis MD Attending Provider Active S tart: April 04, 2025 End: April 04, 2025 Instructional Support Assistant Relationship Specialty Start Date End Date Sreekanth Cortez DO [address] [place], [place] [address] PCP - General Family Medicine 02/28/16 Sergei Renner, COMPOSITION ROOFER.PULPWOOD BUYER [address] [place] [address] [facility] 07/30/24 Margoth Chavez, COMPOSITION ROOFER.PULPWOOD BUYER [address] [place] [address] [facility] 02/05/25 Goals (unrecognized section and content) [...] BE BASED ON THE PRIMARY CLINICAL RECORDS. [employer] provides no warranty or guarantee of the accuracy or completeness of information in this document.
--- NOTE | 2025-04-14 07:02 | ECHOD_ITS ---
Reason For Study Reason For Study: HTN, ABNL EKG Procedure This was a 2D Doppler, Color Flow transthoracic echocardiogram. Exam performed in department. Left Ventricle Normal LV size. Left ventricular systolic function is normal. The left ventricular ejection fraction is 60 %. No regional wall motion abnormalities noted. Right Ventricle Normal RV size. Normal systolic function. Atria Normal left atrium. Normal right atrium. Mitral Valve Normal mitral valve. Tricuspid Valve Normal tricuspid valve. Mild (1+) tricuspid valve insufficiency. Pulmonary artery systolic pressure is 26 mmHg. Aortic Valve Trisinus/trileaflet aortic valve. Mild focal aortic valve calcification. Pulmonic Valve Normal pulmonic valve. Great Vessels Normal aortic root. The pulmonary artery is normal size. Inferior vena cava collapse with respiration. Pericardium/Pleural No pericardial effusion. MMode/2D Measurements & Calculations LVIDd: 3.4 cm IVSd: 1.2 cm Ao root diam: 3.2 cm LVIDs: 2.2 cm LVPWd: 1.0 cm RVDd: 2.9 cm FS: 34.2 % LAV(MOD-bp): 60.9 ml LVAd ap4: 22.8 cm2 LVAd ap2: 18.3 cm2 LAV(MOD-bp) Indexed: 37.6 ml/m2 LVLd ap4: 7.7 cm LVLd ap2: 7.1 cm LAV(MOD-sp2): 52.8 ml EDV(MOD-sp4): 56.8 ml EDV(MOD-sp2): 40.0 ml LAV(MOD-sp4): 56.7 ml EDV(sp4-el): 57.4 ml EDV(sp2-el): 40.2 ml LVAs ap4: 12.7 cm2 LVAs ap2: 10.4 cm2 LVLs ap4: 6.1 cm LVLs ap2: 5.7 cm ESV(MOD-sp4): 22.9 ml ESV(MOD-sp2): 15.8 ml ESV(sp4-el): 22.4 ml ESV(sp2-el): 16.1 ml EF(MOD-sp4): 59.7 % EF(MOD-sp2): 60.6 % EF(sp4-el): 60.9 % SV(MOD-sp4): 33.9 ml SV(MOD-sp2): 24.3 ml SV(sp4-el): 34.9 ml SI(MOD-sp4): 21.0 ml/m2 SI(MOD-sp2): 15.0 ml/m2 LA A4 area: 17.9 cm2 LA dimension(2D): 3.6 cm RA A4 area: 11.3 cm2 TAPSE: 2.1 cm Doppler Measurements & Calculations Lat Peak E' Joshua: 5.9 cm/sec Med Peak E' Joshua: 4.1 cm/sec MV V2 max: 119.2 cm/sec MV max P.7 mmHg MV V2 mean: 61.1 cm/sec MV mean P.7 mmHg MV V2 VTI: 23.6 cm MV P1/2t max joshua: 82.5 cm/sec Ao V2 max: 139.2 cm/sec LV V1 max: 79.1 cm/sec MV P1/2t: 66.4 msec Ao max P.8 mmHg LV V1 max P.5 mmHg Ao V2 mean: 98.6 cm/sec LV V1 mean P.3 mmHg MV dec slope: 364.0 cm/sec2 Ao mean P.2 mmHg LV V1 mean: 55.0 cm/sec MVA(P1/2t): 3.3 cm2 Ao V2 VTI: 29.2 cm LV V1 VTI: 17.9 cm AV (velocity ratio): 0.61 PA V2 max: 92.6 cm/sec TR max joshua: 242.5 cm/sec PA V2 mean: 71.3 cm/sec TR max P.5 mmHg ECHO/Echo Complete Interpretation Summary Normal LV size. Left ventricular systolic function is normal. The left ventricular ejection fraction is 60 %. Mild focal aortic valve calcification. Mild (1+) tricuspid valve insufficiency. Ordering Physician: Sidney Lewis Referring Physician: Sreekanth Cortez Performed By: Christianne Colón, DONTE, RVT
== END | disposition home or self-care (01) ==
LOC: CVS 06:45
PROVIDERS: PCP Student in an Organized Health Care Education/Training Program; Referring Provider Internal Medicine Cardiovascular Disease; Visit Provider Internal Medicine Cardiovascular Disease
DX: I10 Essential (primary) hypertension (principal); R94.31 Abnormal electrocardiogram [ECG] [EKG]
CPT/HCPCS: 93306

== ENCOUNTER 2025-05-08 10:20 | Emergency (ER) | payer MEDICARE, SELFPAY ==
[2025-05-08 10:21] VITALS: BP 146/67; PULSE 67; RESP 12; TEMP 36.5; O2SAT 98; BMI 26.2
--- NOTE | 2025-05-08 10:47 | EKG12_ITS ---
Test Reason : SYNCOPE Blood Pressure : */* mmHG Vent. Rate : 68 BPM Atrial Rate : 68 BPM P-R Int : 182 ms QRS Dur : 80 ms QT Int : 414 ms P-R-T Axes : 53 -4 89 degrees QTcB Int : 440 ms Normal sinus rhythm Normal ECG Confirmed by EDNA TAYLOR, ROSELINE ([id number]), advertising editor EVANGELIST CLARKE ([id number]) on 05/09/2025 9:38:46 AM Referred By: Confirmed By: ROSELINE BISHOP MD
--- NOTE | 2025-05-08 10:47 | RAD_ITS ---
PROCEDURE: CHEST PA AND LATERAL 05/08/2025 REASON FOR EXAM: SYNCOPE TECHNIQUE: Procedure Code: RADCXR Modality: DX Procedure: CHEST PA AND LATERAL COMPARISON: April 02, 2025 FINDINGS: Hardware: EKG leads Heart: Normal-size. Mediastinum: Aorta is atherosclerotic. Lungs: Clear. No pneumothorax or pleural effusion. Bones: The bones are unremarkable. RAD/Chest PA and Lateral IMPRESSION: No acute abnormality Reading Location: [id number]
[2025-05-08 10:59] VITALS: BP 150/92; BP 166/78; BP 172/87; PULSE 68; PULSE 76
--- NOTE | 2025-05-08 11:02 | CT_ITS ---
PROCEDURE: BRAIN/HEAD WITHOUT CONTRAST 05/08/2025 REASON FOR EXAM: SYNCOPE TECHNIQUE: Procedure Code: CTBR Modality: CT Procedure: BRAIN/HEAD WITHOUT CONTRAST Coronal and Sagittal reconstruction series were provided. One or more dose reduction techniques were used (e.g., Automated exposure control, adjustment of the mA and/or kV according to patient size, use of iterative reconstruction technique. RADIATION DOSE SUMMARY: CTDlvol: 45 mGy DLP: 711 mGycm COMPARISON: April 02, 2025 FINDINGS: Brain: There is no evidence of hemorrhage, acute ischemia or mass. No extra- axial fluid collection, midline shift or mass effect. Low-density is seen in the periventricular white matter and deep white matter of the frontal and parietal lobes. CSF Spaces: Mild generalized cerebral atrophy Sinuses/Mastoids: Clear. Mild septal deviation. Small spur to the right. Bones: No fracture CT/Brain/Head without Contrast IMPRESSION: 1. No evidence of intracranial hemorrhage or acute ischemia. 2. Changes of chronic microvascular ischemia and volume loss. Reading Location: [id number]
--- NOTE | 2025-05-08 11:02 | EX.ED.DYSGE1 ---
HPI History of Present Illness Chief Complaint: Syncope Narrative Narrative: Patient is 85-year-old female with past medical history of chronic kidney disease, hypothyroidism, hyponatremia, syncope who presents to the emergency department chief complaint of passing out. Patient states that she went to the restroom and notes that she came back and sat down in a chair states that she told her that she felt like she might pass out. states that she did pass out and was out for longer than normal therefore he called EMS to have her brought here. According to family member at bedside this has been going off and on now for 2 years and they have been making adjustments to her thyroid medication as well as her blood pressure medication. According to family at bedside she does drink tea mostly when inquiring how much water she drinks. notes that her blood pressure was low EMS gave 200 cc of IV fluids. Patient at this point time has no other complaints and states that she is feeling better. [facility] Medical History Mixed hyperlipidemia Stage 3 chronic kidney disease Anxiety Hiatal hernia Dizziness GERD (gastroesophageal reflux disease) Fatigue Labile blood pressure Dizziness Syncope and collapse Hyponatremia Hypothyroidism Hypertension Home Medications ?Medication ?Instructions ?Recorded ?Last Taken ?Type levothyroxine 100 mcg tablet 100 mcg PO BREAKFAST 08/21/16 1 Day Ago History ~10/02/17 multivitamin 1 tab PO QDAY 03/22/25 Unknown History sodium chloride 1,000 mg soluble 1,000 mg PO QD-QID PRN 03/22/25 Unknown History tablet amlodipine 5 mg tablet 5 mg PO QDAY #30 tabs 04/13/25 Unknown Rx carvedilol 12.5 mg tablet 12.5 mg PO BID 04/13/25 Unknown History Allergy/AdvReac Type Severity Reaction Status Date / Time Milk Containing Products Allergy Intermediate Nausea/Vom/ Verified 05/08/25 10:21 (Dairy) Diarrhea latex Allergy Rash Verified 05/08/25 10:21 gluten AdvReac Nausea/Vom/ Verified 05/08/25 10:21 Diarrhea losartan AdvReac Other Verified 05/08/25 10:21 Family History Mother CVA (cerebral vascular accident) Hypertension Heart disease Father Cancer Sister Hypertension Diabetes Brother Kidney disease Surgical History History of carpal tunnel surgery Social History Smoking Status: Never smoker alcohol intake: never substance use type: does not use ROS ROS ED ROS Narrative Constitutional: Denies fevers, chills, headaches Eyes: Denies double vision Cardiovascular: Complains of passing out as noted above denies chest pain Respiratory: Denies shortness of breath Abdomen: Denies nausea vomiting diarrhea : Denies urinary symptoms Neurological: Denies any numbness, weakness, tingling Musculoskeletal: Denies back pain Skin: Denies any rashes or lesions EXAM Physical Exam Narrative Exam Narrative: General: Patient was lying in bed rest comfortably did not appear to be in acute distress Head: Atraumatic, normocephalic Eyes: PERRL bilaterally, EOMI bilaterally, no conjunctival injection noted Neck: Soft, supple, trachea midline Cardiovascular: Regular rate and rhythm no murmurs gallops rubs noted Respiratory: Clear to auscultation bilaterally Abdomen: No tenderness to palpation Extremities: Radial pulses +2/4 in the bilateral extremities, +5/5 strength noted in the bilateral upper and lower extremities, no pedal edema exam Neurological: Patient follow commands knew that she was at [facility] year is 2024 NIH of 0 GCS 15 Skin: Warm, dry, intact no rashes or lesions noted Const Vital Signs: 05/08/25 10:21 05/08/25 10:25 05/08/25 10:58 Temperature 97.7 F L Temperature Source Oral Pulse Rate 67 Pulse Rate [Lying] Pulse Rate [Sitting (for 1 minute prior to obtaining)] Pulse Rate [Standing (for 1 minute prior to obtaining)] Respiratory Rate 12 Respiratory Effort Normal Non-Labored Respiratory Pattern Normal Blood Pressure 146/67 H Blood Pressure [Lying] Blood Pressure [Sitting (for 1 minute prior to obtaining)] Blood Pressure [Standing (for 1 minute prior to obtaining)] Blood Pressure Mean 93 Blood Pressure Mean [Lying] Blood Pressure Mean [Sitting (for 1 minute prior to obtaining)] Blood Pressure Mean [Standing (for 1 minute prior to obtaining)] Pulse Ox 98 Oxygen Delivery Method Room Air Room Air 05/08/25 10:59 05/08/25 12:12 05/08/25 14:00 Temperature Temperature Source Pulse Rate 70 69 Pulse Rate [Lying] 68 Pulse Rate [Sitting (for 1 minute prior to obtaining)] 76 Pulse Rate [Standing (for 1 minute prior to obtaining)] 76 Respiratory Rate 18 16 Respiratory Effort Respiratory Pattern Blood Pressure 146/74 H 156/71 H Blood Pressure [Lying] 150/92 H Blood Pressure [Sitting (for 1 minute prior to obtaining)] 172/87 H Blood Pressure [Standing (for 1 minute prior to obtaining)] 166/78 H Blood Pressure Mean 98 99 Blood Pressure Mean [Lying] 111 Blood Pressure Mean [Sitting (for 1 minute prior to obtaining)] 115 Blood Pressure Mean [Standing (for 1 minute prior to obtaining)] 107 Pulse Ox 99 97 Oxygen Delivery Method Room Air Room Air MDM MDM MDM Narrative Medical decision making narrative: Patient is a 85-year-old female who presents to the emergency department after coming back from the bathroom sitting down and passing out in a chair. Once again she did not fall. On the differential diagnosis includes but not limited to intracranial hemorrhage, vasovagal syncope, orthostatic hypotension, dehydration, cardiac arrhythmia. Once workup is obtained reviewed she will be reevaluated. Patient be given 2 L IV fluid. Patient says CBC was reviewed and showed no evidence leukocytosis white blood count normal at 7.6, hemoglobin 12, platelet count 241. Patient sodium was 135, potassium normal at 4.3, creatinine normal at 1.09. Patient's troponin was 11 with a delta troponin at 11. Patient EKG showed sinus rhythm with a rate of 68 bpm. Patient TSH was 14, free T4 and T3 were 0.90 and [address] head brain without contrast reviewed showed no evidence of acute intracranial hemorrhage or acute ischemia. Changes of chronic microvascular ischemia and volume loss noted. Patient chest x-ray reviewed by myself by radiology showed no acute cardiopulmonary processes. Patient ambulated well here in the emergency department no hypoxia no tachycardia. Orthostatic vital signs were negative. Discussed results with the patient and family members at bedside. They pulled up MyChart I reviewed her renal artery ultrasound which was negative, urine metanephrine levels were normal as well. Random cortisol level normal. Given that this has been going on for 2 years now she feels much improved and would like to go home at this point time she will be discharged home in stable condition. She is advised to follow-up with her doctors in the outpatient setting and return for worsening symptoms or concerns. All question concerns answered she is discharged home in stable condition Lab Data Labs: Laboratory Results - last 24 hr 05/08/25 05/08/25 10:30 12:47 WBC 7.6 RBC 3.80 L Hgb 12.0 Hct 34.0 L MCV 89.5 MCH 31.6 MCHC 35.3 RDW Std Deviation 41.2 RDW Coeff of Selam 12.6 Plt Count 241 MPV 9.9 Immature Gran % (Auto) 0.400 Neut % (Auto) 61.7 Lymph % (Auto) 20.2 [place] % (Auto) 10.3 H Eos % (Auto) 6.9 H Baso % (Auto) 0.5 Absolute Neuts (auto) 4.7 Absolute Lymphs (auto) 1.53 Nucleated RBC % 0 Sodium 135 Potassium 4.3 Chloride 102 Carbon Dioxide 22.2 Anion Gap 11 BUN 8 Creatinine 1.09 Estim Creat Clear Calc 33.26 L Est GFR (MDRD) Non-Af 50 L BUN/Creatinine Ratio 7.1 L Glucose 338 H Calcium 8.0 Magnesium 2.1 Troponin T High Sens 11 Troponin T Hi Sens 2 Hr 11 NT pro BNP II 109 TSH 14.000 H Free T4 0.90 Free T3 pg/dL 1.5 L Radiography Diagnostic Testing: Clinical Impression(s) from Imaging Studies Chest X-Ray 05/08/25 10:47 IMPRESSION: No acute abnormality Reading Location: [facility] Brain CT 05/08/25 11:02 IMPRESSION: 1. No evidence of intracranial hemorrhage or acute ischemia. 2. Changes of chronic microvascular ischemia and volume loss. Reading Location: [facility] Discharge Plan Triage Chief Complaint: Syncope ED Provider: Mike Hall Dx/Rx/DC Orders Clinical Impression: Syncope, Hypothyroidism, Chronic kidney disease Prescriptions: No Action multivitamin Tablet 1 tab PO QDAY sodium chloride 1,000 mg tablet,soluble 1,000 mg PO QD-QID PRN levothyroxine 100 MCG tablet 100 mcg PO BREAKFAST carvedilol 12.5 mg tablet 12.5 mg PO BID Rx Instructions: must administer with a meal/food amlodipine 5 mg tablet 5 mg PO QDAY Qty: 30 11RF Primary Care Provider: Sreekanth Cortez Referrals: Sreekanth Cortez DO [Primary Care Provider] - Activity Restrictions/Additional Instructions: Follow-up with your doctors in the outpatient setting. Return with worsening symptoms or any other concerns. Your blood work did not show any acute findings today your chest x-ray is normal as well as your EKG. Print Language: [place] Disposition Disposition: Home, Self Care
[2025-05-08 11:04] LABS: Hematocrit 34.0 % (37-47); Hemoglobin 12.0 g/dL (12.0-15.0); Immature Granulocytes Count 0.030 X10^3/uL (0.0-0.0); Mean Corp Hgb Conc 35.3 g/dL (32-36); Mean Corpuscular Volume 89.5 fL (81-99); Mean Platelet Vol. 9.9 fl (6.2-12.0); NRBC Flagged by Analyzer 0 % (0-5); Platelet Count 241 K/mm3 (150-450); RBC Distribution Width CV 12.6 % (11.6-14.6); RBC Distribution Width SD 41.2 fl (35.1-43.9); Red Blood Count 3.80 M/mm3 (4.2-5.4); White Blood Count 7.6 K/mm3 (4.4-11.0)
[2025-05-08] MEDS: 0.9% Normal Saline (1000mL) 1,000 ML 999 ML IV ×2 (11:06→12:33)
[2025-05-08 11:22] LABS: Anion Gap 11 (5-15); BUN 8 mg/dL (4-19); BUN/Creat Ratio 7.1 RATIO (10-20); Calcium,Total 8.0 mg/dL (7.6-11.0); Carbon Dioxide 22.2 mmol/L (21.0-32.0); Chloride 102 mmol/L (98-108); Estimated Creatinine Clearance 33.26 ml/min (50-250); Glucose 338 mg/dL (70-99); Magnesium 2.1 mg/dL (1.5-2.2); Potassium 4.3 mmol/L (3.3-5.1); Pro- Brain NATRIURETIC PEPTIDE 109 pg/mL (<=1800); Troponin T High Sensitivity 11 ng/L (<=14)
[2025-05-08 11:46] LABS: Free T3 1.5 pg/mL (2.18-3.98)
[2025-05-08 12:12] VITALS: BP 146/74; PULSE 70; RESP 18; O2SAT 99
[2025-05-08 12:20] VITALS: O2SAT 98
[2025-05-08 13:57] LABS: Troponin T High Sens 2 HR 11 ng/L (<=14)
[2025-05-08 14:00] VITALS: BP 156/71; PULSE 69; RESP 16; O2SAT 97
[2025-05-08 14:38] VITALS: BP 156/71; PULSE 69; RESP 16; TEMP 36.5; O2SAT 97
== END 2025-05-08 14:39 | disposition home or self-care (01) ==
PROVIDERS: Emergency Provider Emergency Medicine; PCP Student in an Organized Health Care Education/Training Program; Visit Provider Emergency Medicine
DX: R55 Syncope and collapse (principal); N18.30 Chronic kidney disease, stage 3 unspecified; E03.9 Hypothyroidism, unspecified
CPT/HCPCS: 70450; 71046; 80048; 82962; 83735; 83880; 84439; 84443; 84481; 84484; 85025; 93005; 96360; 96361; 99285; A4216